=== PATIENT | female | born 1975 | race Hispanic/Latino ===

== ENCOUNTER 2018-09-03 12:44 | Day surgery (SDC) | payer MEDICAID, SELFPAY ==
[2018-08-27 09:35] VITALS: BMI 38.0
[2018-09-03] VITALS (11 sets, daily range): BP systolic 93–129; BP diastolic 52–82; PULSE 71–96; RESP 16–18; TEMP 36.2–36.5; O2SAT 90–100; BMI 38.0
--- NOTE | 2018-09-03 14:31 | PCM.HP.BLA ---
History and Physical Date of Admission: 09/03/18 [facility] [address] [place] [address] OFFICE VISIT Date of Service: 08/27/18 MR#: [id number] Acct: [id number] Name: BRITTNEY ALCOCER Rep #: [id number] : 1975 Provider: Gamaliel Herrera MD Age/Sex: 43/F Location: [facility] Status: Signed Intake Vital Signs 08/27/18 Body Mass Index (BMI) 38.0 08/27/18 Height 4 ft 10 in 08/27/18 Weight: 184 lb 08/27/18 Body Mass Index (BMI) 38.4 08/27/18 Respiratory Rate 18 Intake Visit Reasons: Wart Middle Finger R Hand Chief Complaint: Abdominal and flank pain Security Intern Required: No Is patient in pain?: Yes (right middle finger) Allergies amoxicillin [Amoxicillin] Allergy (Verified 08/27/18 09:29) Anaphylaxis aspirin [ASA] Allergy (Verified 08/27/18 09:29) Other chocolate flavor Allergy (Verified 08/27/18 09:29) Anaphylaxis citalopram hydrobromide [From Celexa] Allergy (Verified 08/27/18 09:29) Anaphylaxis naproxen [From Naprosyn] Allergy (Verified 08/27/18 09:29) Anaphylaxis tomato [Tomato] Allergy (Verified 08/27/18 09:29) Rash venlafaxine HCl [From Effexor] Allergy (Verified 08/27/18 09:29) Anaphylaxis acetaminophen [From Tylenol-Codeine #3] Adverse Reaction (Verified 08/27/18 09:29) Other codeine phosphate [From Tylenol-Codeine #3] Adverse Reaction (Verified 08/27/18 09:29) Other milk Adverse Reaction (Verified 08/27/18 09:29) Nausea morphine Adverse Reaction (Verified 08/27/18 09:29) Unknown tramadol Adverse Reaction (Verified 08/27/18 09:29) Other CHOCOLATE Allergy (Uncoded 08/27/18 09:29) Anaphylaxis Medications atorvastatin 20 mg tablet 40 mg PO DAILY 08/27/18 [History Confirmed 09/02/18] divalproex 500 mg tablet,delayed release 500 mg PO QHS 08/27/18 [History Confirmed 09/02/18] loratadine 10 mg tablet 10 mg PO DAILY 08/27/18 [History Confirmed 09/02/18] magnesium 400 mg (as magnesium oxide) capsule 400 mg PO DAILY 08/27/18 [History Confirmed 09/02/18] omeprazole 40 mg capsule,delayed release 40 mg PO DAILY 08/27/18 [History Confirmed 09/02/18] pramipexole 0.5 mg tablet 0.5 mg PO QHS 08/27/18 [History Confirmed 09/02/18] quetiapine 300 mg tablet 300 mg PO QHS 08/27/18 [History Confirmed 09/02/18] sertraline 100 mg tablet 100 mg PO DAILY 08/27/18 [History Confirmed 09/02/18] sumatriptan 100 mg tablet 100 mg PO ONCE 08/27/18 [History Confirmed 09/02/18] Albuterol Inhaler [Ventolin Hfa (SP)] 1 - 2 puff INHALATION Q4H PRN PRN 09/02/18 [History Confirmed 09/02/18] Ondansetron [Zofran Odt] 4 mg PO Q12H PRN PRN 09/02/18 [History Confirmed 09/02/18] PFSH Medical History Carpal tunnel syndrome (Acute) Depression (Acute) Diverticulosis (Acute) Heart attack (Acute) History of kidney cancer (Acute) Leiomyoma (Acute) Right shoulder pain (Acute) Surgical History History of partial nephrectomy (Acute) S/P section (Acute) S/P excision of lipoma (Acute) S/P laparoscopic cholecystectomy (Acute) Status post carpal tunnel release (Acute) s/p left leg surgery (Acute) Social History (Updated 09/02/18 @ 13:08 by Gamaliel Herrera MD) Smoking Status: Current every day smoker alcohol intake: current alcohol intake frequency: a few times a week substance use type: marijuana HPI HPI HPI: BRITTNEY ALCOCER, is a 43 F who presents to the office today for HPI HPI Surgical H&P: Yes HPI: BRITTNEY ALCOCER, is a 43 F who presents to the office today for evaluation of a warty lesion on the middle finger of her right hand. Patient has had this warty lesion for a long time. She has had it removed in an office setting on no less than 3 separate occasions. Each time it has come back and she is complaining of significant amount of discomfort the pad of her middle finger. ROS General General: No weight change, appetite, fatigue, colon cancer, breast cancer or weakness HEENT HEENT: No difficulty swallowing, eye injury, eye surgery, swollen glands or hoarseness Endo Endocrine: No thyroid disease, diabetes mellitus, thyroid cancer, Hair loss, heat intolerance or cold intolerance Skin Skin: No rash or changing moles Breast Breast: No left breast lump, right breast lump, nipple discharge, breast pain, abnormal mammogram, abnormal US or breast enlargement Musc Musculoskeletal: Yes arthritis, rheumatoid arthritis, gout and joint pain; no back problems Cardio Cardiovascular: Yes heart attack; no murmur, pacemaker, heart disease, atrial fibrillation, high blood pressure, heart stent, palpitations, shortness of breat with exertion or chest pain Psych Psychiatric: Yes depression and anxiety; no hearing voices Resp Respiratory: No shortness of breath, Yes sleep apnea, No cough, Yes COPD, Yes asthma, No emphysema, No wheezing Gastro Gastrointestinal: No abdominal pain, No nausea or vomiting, No diarrhea, No constipation, Yes blood in stool, Yes acid reflux, No hemorrhoids, Yes ulcers, No gallbladder problem, No black,tarry stools Eduar Hematologic: No blood thinners, No blood disorders, No bleeding, No anemia, No blood clots Neuro Neurologic: No system reviewed and no additional complaints, except as docu, No as per HPI, No abnormal walking, No abnormal hearing, No abnormal movements, No abnormal speech, No behavioral changes, No burning sensations, No confusion, No seizure-like activity, No unsteadiness, No dizziness, No localized weakness, No frequent falls, No headache(s), No lack of coordination, No loss of vision, No memory loss, Yes numbness, No other visual disturbances, No radiating pain, No restless legs, No sensory deficit, No fainting, Yes tingling, No tremor(s), No weakness, No other Exam Const General: no acute distress, well developed, well hydrated Orientation: oriented to person, oriented to place, oriented to time [facility] Head: normocephalic, atraumatic Ears: external ears normal Mouth: moist mucous membranes Eyes Sclera: sclerae normal Pupils: normal by confrontation Neck Neck: no lymphadenopathy noted Neck mass: No Thyroid: thyroid normal, symmetrical Chest Chest palpation & inspection: normal inspection of the chest Breast Palpation: No nipple discharge Resp Effort & Inspection: normal respiratory effort Auscultation: clear to auscultation bilaterally Percussion: percussion normal Cardio Rate: regular rate Rhythm: regular rhythm Heart Sounds: no murmurs GI Palpation: soft, no hepatosplenomegaly, no masses, nontender Rectal Exam: other Other: Rectal exam deferred. Extrem General: normal to inspection, no clubbing, cyanosis or edema Other: Middle finger on her right hand has a warty lesion extending from the base of the cuticle and extending around towards the tip. The pad on that finger is tender to touch there is no signs of infection. Assessment & Plan Problems 1. Verrucous lesion of skin B07.9 Plan My plan will be to excise this in the OR. The patient understands that there is a significant risk that she could develop osteomyelitis of the distal tip of her finger and she could actually lose the distal tip of her finger given the fact that this is a redo of a redo. Bleeding and infection are the obvious normal risk. Recurrence of a verrucous lesion at the distal tip of her finger is also a risk. She also understands that the nail itself probably will not grow back in a normal fashion. Coding Level of Care Code Off vis,new,level 3 Diagnoses Verrucous lesion of skin B07.9 09/02/18 1308 <Electronically signed by Gamaliel Herrera MD> Date Gamaliel Herrera MD Cosign Signature: Date (if applicable) CC: WAREHOUSE LABORERArlette Dobbins ~ I have re-examined the patient. There are no clinical changes since date of exam.
--- NOTE | 2018-09-03 14:53 | OP.PCM_ITS ---
Problem List (1) Viral wart on finger Status: Acute Report of Operation Date of Procedure: 09/03/18 Pre-Operative Diagnosis: Wart on third finger right hand Post-Operative Diagnosis: Same Surgery/Procedure Performed:: Fulguration of wart on third finger right hand Type of Anesthesia:: Local MAC Anesthesiologist: Dakota Bradley Estimated Blood Loss (mL): < 25 cc Fluids Replaced: 300 cc LR Description of Procedure: Patient was brought into the operating room. Placed in the supine position. Under excellent MAC anesthetic right hand was sterilely prepped and draped in usual fashion. Percent lidocaine with epinephrine was injected into the finger and a digital nerve block. Tourniquet was applied. I excised the wart in its entirety and removed half of the nail on that side use electrocautery for good hemostasis and rongeured out anything and everything that looked slightly abn ormal. I had excellent hemostasis. I placed bacitracin and Adaptic on the wound and then sterile tube gauze was placed on the wound. Patient tolerated the procedure well. - Admit VTE Documentation VTE Present on Admission: No VTE Mechan Device Prophylaxis: SCD's VTE Pharm Prophylaxis ordered?: No Reason prophylaxis not ordered:: Treatment Not Indicated
--- NOTE | 2018-09-03 14:54 | DCINST_ITS ---
Discharge Diet: Light diet - advance as tolerated - If you have questions about your diet instructions, please talk to your doctor. Discharge Activity: May Not Drive - for 1 week or while taking narcotic pain medicine. May shower in (days): 1 Lifting Restrictions: 10 pounds Call your doctor if your incision/area has: Continuous Slow Oozing, Sudden Increased Bleeding, Increased Pain/ Swelling, Increased Redness, Foul Smelling Discharge Call your doctor if you observe: Fever of 101 or Higher Suture Line Care: Avoid Pulling/Pushing, Avoid Pinching/Bending Additional Dressing/Incision Instructions:: Change or remove dressing in 4 days. Leave steri-strips in place for 1 week. Allergies/Adverse Reactions: Allergies amoxicillin [Amoxicillin] Allergy (Verified 09/03/18 12:50) Anaphylaxis aspirin [ASA] Allergy (Verified 09/03/18 12:50) Other chocolate flavor Allergy (Verified 09/03/18 12:50) Anaphylaxis citalopram hydrobromide [From Celexa] Allergy (Verified 09/03/18 12:50) Anaphylaxis naproxen [From Naprosyn] Allergy (Verified 09/03/18 12:50) Anaphylaxis tomato [Tomato] Allergy (Verified 09/03/18 12:50) Rash venlafaxine HCl [From Effexor] Allergy (Verified 09/03/18 12:50) Anaphylaxis acetaminophen [From Tylenol-Codeine #3] Adverse Reaction (Verified 09/03/18 12:50) Other codeine phosphate [From Tylenol-Codeine #3] Adverse Reaction (Verified 09/03/18 12:50) Other milk Adverse Reaction (Verified 09/03/18 12:50) Nausea morphine Adverse Reaction (Verified 09/03/18 12:50) Unknown UNKNOWN tramadol Adverse Reaction (Verified 09/03/18 12:50) Other HALLUCINATIONS CHOCOLATE Allergy (Uncoded 09/03/18 12:50) Anaphylaxis Medications to take at Discharge atorvastatin 20 mg tablet 40 mg PO DAILY 08/27/18 divalproex 500 mg tablet,delayed release 500 mg PO QHS 08/27/18 loratadine 10 mg tablet 10 mg PO DAILY 08/27/18 magnesium 400 mg (as magnesium oxide) capsule 400 mg PO DAILY 08/27/18 omeprazole 40 mg capsule,delayed release 40 mg PO DAILY 08/27/18 pramipexole 0.5 mg tablet 0.5 mg PO QHS 08/27/18 quetiapine 300 mg tablet 300 mg PO QHS 08/27/18 sertraline 100 mg tablet 100 mg PO DAILY 08/27/18 sumatriptan 100 mg tablet 100 mg PO ONCE 08/27/18 Albuterol Inhaler [Ventolin Hfa (SP)] 1 - 2 puff INHALATION Q4H PRN PRN 09/02/18 Ondansetron [Zofran Odt] 4 mg PO Q12H PRN PRN 09/02/18 Oxycodone HCl/Acetaminophen [Percocet 5/325] 1 - 2 tab PO Q4H PRN PRN 6 Days #30 tab 09/03/18 The following prescriptions were given: Oxycodone HCl/Acetaminophen [Percocet 5/325] 1 - 2 tab PO Q4H PRN PRN 6 Days #30 tab PRN Reason: Pain Prescription Printed Primary Care Physician: Marta Dobbins, DWIGHT-C [Primary Care Provider] - Test Results: Test results from this visit will be discussed in further detail at your follow- up appointment, if applicable. Please Follow Up With: Gamaliel Herrera MD - [phone] When: Call to make an appointment to be seen in about 10 days.
[2018-09-03] MEDS: BACITRACIN/POLYMYXIN B 15 GM Tube 1 APPLIC (14:59)
--- NOTE | 2018-09-03 15:05 | WART_PTH ---
PATIENT: BRITTNEY ALCOCER LOC: [facility] [place] U#:[id number] AGE/SX: 43/F ROOM: RE09/03/[address]: Dr. Gamaliel Herrera MD : 1975 BED: DIS: 09/03/2018 SPEC #: [id number] RECD: 09/04/18 08:17 STATUS: OFELIA RESHMA #: [id number] DAINA: 09/03/18 15:[address]: Gamaliel Herrera DEPT: SURGICAL PATHOLOGY RECD BY: Serg Leiva ENTERED: 09/04/18 10:57 SP TYPE: Kamran RAINES DR: Marta Dobbins, MANAGER OF TRANSPORTATION-C Tissues: Epidermis Procedures: Surgery Specimen Level IV HEADER OPERATION: Excision, wart, middle finger PRE-OP DIAGNOSIS: Verrucous lesion of skin TISSUE SUBMITTED: Wart right third finger MICROSCOPIC DIAGNOSIS Wart right third finger, excision: Verrucal vulgaris. KAMLESH:kalee 09/05/18 MICROSCOPIC DESCRIPTION Slides are reviewed. GROSS DESCRIPTION Received in fixative is one container labeled with the patient's name and designated wart right third finger. The specimen consists of a piece of bui-white skin measuring 1.5 x 0.5 cm and up to 0.7 cm in thickness. The specimen is inked and submitted entirely in one cassette. It will be serially sectioned at the time of embedding. / KAMLESH:kalee 09/04/18 TC:1 CPT: 08592
== END 2018-09-03 17:09 | disposition home or self-care (01) ==
LOC: SDC 12:45 → AC 12:46
PROVIDERS: Family Provider Nurse Practitioner Family; PCP Nurse Practitioner Family; Referring Provider Surgery; Visit Provider Surgery
PROC: (CPT 17110; principal; 2018-09-03 14:50)
DX: B07.9 Viral wart, unspecified (principal); K21.9 Gastro-esophageal reflux disease without esophagitis; E78.00 Pure hypercholesterolemia, unspecified; I25.2 Old myocardial infarction; F32.9 Major depressive disorder, single episode, unspecified; F41.9 Anxiety disorder, unspecified; F43.10 Post-traumatic stress disorder, unspecified; G25.81 Restless legs syndrome; G43.909 Migraine, unspecified, not intractable, without status migrainosus; F12.90 Cannabis use, unspecified, uncomplicated; F17.200 Nicotine dependence, unspecified, uncomplicated; Z72.89 Other problems related to lifestyle; Z79.899 Other long term (current) drug therapy
CPT/HCPCS: 00400; 17110; 88305; J7120; J2405

== ENCOUNTER 2018-12-03 09:24 | Day surgery (SDC) | payer MEDICAID, SELFPAY ==
--- NOTE | 2018-11-14 02:52 | HP_ITS ---
Intake Vital Signs 11/14/18 Body Mass Index (BMI) 38.0 Intake Visit Reasons: Multiple new warts on fingers Chief Complaint: Abdominal and flank pain Parimutuel Ticket Cashier Required: No Is patient in pain?: No Allergies amoxicillin [Amoxicillin] Allergy (Verified 11/14/18 14:34) Anaphylaxis aspirin [ASA] Allergy (Verified 11/14/18 14:34) Other chocolate flavor Allergy (Verified 11/14/18 14:34) Anaphylaxis citalopram hydrobromide [From Celexa] Allergy (Verified 11/14/18 14:34) Anaphylaxis naproxen [From Naprosyn] Allergy (Verified 11/14/18 14:34) Anaphylaxis tomato [Tomato] Allergy (Verified 11/14/18 14:34) Rash venlafaxine HCl [From Effexor] Allergy (Verified 11/14/18 14:34) Anaphylaxis acetaminophen [From Tylenol-Codeine #3] Adverse Reaction (Verified 11/14/18 14:34) Other codeine phosphate [From Tylenol-Codeine #3] Adverse Reaction (Verified 11/14/18 14:34) Other milk Adverse Reaction (Verified 11/14/18 14:34) Nausea morphine Adverse Reaction (Verified 11/14/18 14:34) Unknown tramadol Adverse Reaction (Verified 11/14/18 14:34) Other CHOCOLATE Allergy (Uncoded 09/03/18 12:50) Anaphylaxis Medications atorvastatin 20 mg tablet 40 mg PO DAILY 08/27/18 [History Confirmed 11/14/18] divalproex 500 mg tablet,delayed release 500 mg PO QHS 08/27/18 [History Confirmed 11/14/18] loratadine 10 mg tablet 10 mg PO DAILY 08/27/18 [History Confirmed 11/14/18] magnesium 400 mg (as magnesium oxide) capsule 400 mg PO DAILY 08/27/18 [History Confirmed 11/14/18] omeprazole 40 mg capsule,delayed release 40 mg PO DAILY 08/27/18 [History Confirmed 11/14/18] pramipexole 0.5 mg tablet 0.5 mg PO QHS 08/27/18 [History Confirmed 11/14/18] quetiapine 300 mg tablet 300 mg PO QHS 08/27/18 [History Confirmed 11/14/18] sertraline 100 mg tablet 100 mg PO DAILY 08/27/18 [History Confirmed 11/14/18] sumatriptan 100 mg tablet 100 mg PO ONCE 08/27/18 [History Confirmed 11/14/18] Albuterol Inhaler [Ventolin Hfa (SP)] 1 - 2 puff INHALATION Q4H PRN PRN 09/02/18 [History Confirmed 11/14/18] Ondansetron [Zofran Odt] 4 mg PO Q12H PRN PRN 09/02/18 [History Confirmed 11/14/18] PFSH Medical History Carpal tunnel syndrome (Acute) Depression (Acute) Diverticulosis (Acute) Heart attack (Acute) History of kidney cancer (Acute) Leiomyoma (Acute) Right shoulder pain (Acute) Surgical History (Updated 11/14/18 @ 14:37 by Carey Aden) History of partial nephrectomy (Acute) S/P section (Acute) S/P excision of lipoma (Acute) S/P laparoscopic cholecystectomy (Acute) Status post carpal tunnel release (Acute) history excision wart third finger right hand (Acute ~09/03/18) s/p left leg surgery (Acute) Social History (Updated 11/14/18 @ 14:54 by Gamaliel Herrera MD) Smoking Status: Current every day smoker alcohol intake: current alcohol intake frequency: a few times a week substance use type: marijuana HPI HPI HPI: BRITTNEY ALCOCER, is a 43 F who presents to the office today for HPI HPI Surgical H&P: Yes HPI: BRITTNEY ALCOCER, is a 43 F who presents to the office today for Evaluation for warts on her right hand. Patient had a wart on her middle finger of her right hand which I subsequently removed about 2 months ago she has had good success with this. She however has other warty lesions that are now becoming painful located on her second and fourth finger of her right hand. ROS General General: No weight change, appetite, fatigue, colon cancer, breast cancer or weakness HEENT HEENT: No difficulty swallowing, eye injury, eye surgery, swollen glands or hoarseness Endo Endocrine: No thyroid disease, diabetes mellitus, thyroid cancer, Hair loss, heat intolerance or cold intolerance Skin Skin: No rash or changing moles Breast Breast: No left breast lump, right breast lump, nipple discharge, breast pain, abnormal mammogram, abnormal US or breast enlargement Musc Musculoskeletal: Yes arthritis, rheumatoid arthritis, gout and joint pain; no back problems Cardio Cardiovascular: Yes heart attack; no murmur, pacemaker, heart disease, atrial fibrillation, high blood pressure, heart stent, palpitations, shortness of breat with exertion or chest pain Psych Psychiatric: Yes depression and anxiety; no hearing voices Resp Respiratory: No shortness of breath, Yes sleep apnea, No cough, Yes COPD, Yes asthma, No emphysema, No wheezing Gastro Gastrointestinal: No abdominal pain, No nausea or vomiting, No diarrhea, No constipation, Yes blood in stool, Yes acid reflux, No hemorrhoids, Yes ulcers, No gallbladder problem, No black,tarry stools Eduar Hematologic: No blood thinners, No blood disorders, No bleeding, No anemia, No blood clots Neuro Neurologic: No weakness Exam Chest Breast Palpation: No nipple discharge Cardio Heart Sounds: no murmurs Assessment & Plan Problems 1. Viral wart on finger B07.9 Plan My plan will be to excise these 2 lesions in the OR. Bleeding to be the biggest risk infection is also risk as well as recurrence of these viral lesions. Patient understands this and is willing to proceed. Coding Level of Care Code Off vis,est,level 3 Diagnoses Viral wart on finger B07.9 11/14/18 6610 <Electronically signed by Gamaliel giang MD> Date _ Gamaliel Herrera MD I have re-examined the patient. There are no clinical changes since date of exam.
[2018-11-14 14:37] VITALS: BMI 38.0
[2018-12-03] VITALS (8 sets, daily range): BP systolic 73–94; BP diastolic 48–63; PULSE 54–68; RESP 16; TEMP 36.3–36.6; O2SAT 91–96; BMI 37.5
[2018-12-03] MEDS: Lactated Ringers 1,000 ML 100 ML IV (10:25)
--- NOTE | 2018-12-03 11:40 | WART_PTH ---
PATIENT: BRITTNEY ALCOCER [place] [facility] [place][id number] AGE/SX: 43/F ROOM: RE12/03/[address]: Dr. Gamaliel Herrera MD : 1975 BED: DIS: 12/03/2018 SPEC #: [id number] RECD: 12/04/18 08:59 STATUS: OFELIA RESHMA #: [id number] DAINA: 12/03/18 11:[address]: Gamaliel Herrera DEPT: SURGICAL PATHOLOGY RECD BY: Lashae Washington ENTERED: 12/04/18 10:00 SP TYPE: Wart YANNA DR: Marta Dobbins, GILA Tissues: A - Epidermis B - Epidermis Procedures: Surgery Specimen Level IV HEADER OPERATION: Fulguration of wart on hand, 2nd and 4th fingers PRE-OP DIAGNOSIS: Viral wart on finger TISSUE SUBMITTED: A. Wart 2nd finger, right hand, B. Wart 4th finger, right hand MICROSCOPIC DIAGNOSIS A. Lesion of second finger, right hand, biopsy: Consistent with benign keratosis with cutaneous horn. See comment. B. Lesion of fourth finger, right hand, biopsy: Consistent with benign keratosis with cutaneous horn. AM:kalee 12/05/18 COMMENT A. Classic features of viral cytopathic change are not present. Clinical correlation is suggested. Case has been reviewed in consultation with Dr. Koroma who concurs with the above diagnosis. IDC:SJ MICROSCOPIC DESCRIPTION Slides are reviewed. GROSS DESCRIPTION A - Received in fixative is one container labeled with the patient's name and designated wart second finger right hand. The specimen consists of a piece of bui-white skin measuring 0.5 x 0.5 x 0.3 cm. The skin surface shows verrucous appearance. The entire specimen is submitted in one cassette. B - Received in fixative is one container labeled with the patient's name and designated wart fourth finger right hand. The specimen consists of a punch biopsy of bui-white skin measuring 0.6 cm in diameter and up to 0.5 cm in length. The specimen is bisected and submitted entirely in one cassette. / KAMLESH:kalee 12/04/18 TC:5 CPT: 54165 x2
--- NOTE | 2018-12-03 12:01 | PCM.OPRPT ---
Problem List (1) Viral wart on finger Status: Acute Report of Operation Date of Procedure: 12/03/18 Pre-Operative Diagnosis: Warts to second and fourth phalanges right hand Post-Operative Diagnosis: Same Surgery/Procedure Performed:: Fulguration of warts to second and fourth phalanges right hand Type of Anesthesia:: Local MAC Anesthesiologist: Dakota Bradley Specimen's removed: Cutaneous warts to second and fourth phalanges right hand Estimated Blood Loss (mL): < 5 cc Fluids Replaced: 700 cc lr Description of Procedure: Patient was brought into the operating room placed in the supine position under excellent MAC anesthetic. The right hand was sterilely prepped and draped in usual fashion. Local was injected into the fourth and second digits and a digital nerve block fashion. A turnicot was applied to the fourth digit and I ellipsed out the warty lesion. I use electrocautery for good hemostasis. I removed the turnicot and had good hemostasis. Tourniquet was then applied to the second digit similar fashion I ellipsed out a warty lesion and sent it off to pathology electrocautery was used for good hemostasis. Sterile dressings were applied. Patient tolerated the procedure well - Admit VTE Documentation VTE Present on Admission: No VTE Mechan Device Prophylaxis: SCD's VTE Pharm Prophylaxis ordered?: No Reason prophylaxis not ordered:: Treatment Not Indicated
[2018-12-03] MEDS: Bupivacaine Mpf 0.5% 30 ML VIAL (12:11)
[2018-12-03] MEDS: Neomycin/Bacitracin/Polymyxin Ointment 1 APPLIC (12:18)
--- NOTE | 2018-12-03 12:19 | DCINST_ITS ---
Discharge Diet: Light diet - advance as tolerated - If you have questions about your diet instructions, please talk to your doctor. Discharge Activity: May Not Drive - for 1 week or while taking narcotic pain medicine. May shower in (days): 1 Lifting Restrictions: 10 pounds Call your doctor if your incision/area has: Continuous Slow Oozing, Sudden Increased Bleeding, Increased Pain/ Swelling, Increased Redness, Foul Smelling Discharge Call your doctor if you observe: Fever of 101 or Higher Suture Line Care: Avoid Pulling/Pushing, Avoid Pinching/Bending Additional Dressing/Incision Instructions:: Change dressing daily. Soak hand in Dreft daily. Dressed appropriately. Allergies/Adverse Reactions: Allergies adhesive tape Allergy (Verified 12/03/18 10:08) Rash amoxicillin [Amoxicillin] Allergy (Verified 12/03/18 10:08) Anaphylaxis aspirin [ASA] Allergy (Verified 12/03/18 10:08) Other chocolate flavor Allergy (Verified 12/03/18 10:08) Anaphylaxis citalopram hydrobromide [From Celexa] Allergy (Verified 12/03/18 10:08) Anaphylaxis naproxen [From Naprosyn] Allergy (Verified 12/03/18 10:08) Anaphylaxis tomato [Tomato] Allergy (Verified 12/03/18 10:08) Rash venlafaxine HCl [From Effexor] Allergy (Verified 12/03/18 10:08) Anaphylaxis acetaminophen [From Tylenol-Codeine #3] Adverse Reaction (Verified 12/03/18 10:08) Other codeine phosphate [From Tylenol-Codeine #3] Adverse Reaction (Verified 12/03/18 10:08) Other milk Adverse Reaction (Verified 12/03/18 10:08) Nausea morphine Adverse Reaction (Verified 12/03/18 10:08) Unknown UNKNOWN tramadol Adverse Reaction (Verified 12/03/18 10:08) Other HALLUCINATIONS CHOCOLATE Allergy (Uncoded 12/03/18 10:08) Anaphylaxis Medications to take at Discharge atorvastatin 20 mg tablet 40 mg PO DAILY 08/27/18 divalproex 500 mg tablet,delayed release 1,000 mg PO QHS 08/27/18 loratadine 10 mg tablet 10 mg PO DAILY 08/27/18 magnesium 400 mg (as magnesium oxide) capsule 400 mg PO DAILY 08/27/18 omeprazole 40 mg capsule,delayed release 40 mg PO DAILY 08/27/18 pramipexole 0.5 mg tablet 0.5 mg PO QHS 08/27/18 quetiapine 300 mg tablet 200 mg PO QHS 08/27/18 sertraline 100 mg tablet 100 mg PO DAILY 08/27/18 sumatriptan 100 mg tablet 100 mg PO ONCE PRN 08/27/18 Albuterol Inhaler [Ventolin Hfa (SP)] 1 - 2 puff INHALATION Q4H PRN PRN 09/02/18 Ondansetron [Zofran Odt] 8 mg PO Q12H PRN PRN 09/02/18 Acetaminophen [Tylenol Extra Strength] 500 mg PO PRN PRN 12/02/18 Gabapentin 800 mg PO 4X/DAY 12/02/18 Oxycodone HCl/Acetaminophen [Percocet 5/325] 1 - 2 tab PO Q4H PRN PRN 6 Days #30 tab 12/03/18 Oxycodone [Oxyir] 10 mg PO Q6H PRN PRN 6 Days #25 tab 12/03/18 The following prescriptions were given: Oxycodone [Oxyir] 10 mg PO Q6H PRN PRN 6 Days #25 tab PRN Reason: Pain Score 1-11/14 Prescription Printed Oxycodone HCl/Acetaminophen [Percocet 5/325] 1 - 2 tab PO Q4H PRN PRN 6 Days #30 tab PRN Reason: Pain Prescription Printed Primary Care Physician: Marta Dobbins, DWIGHT-C [Primary Care Provider] - Test Results: Test results from this visit will be discussed in further detail at your follow- up appointment, if applicable. Please Follow Up With: Gamaliel Herrera MD - [phone] When: Call to make an appointment to be seen in about 10 days.
== END 2018-12-03 14:37 | disposition home or self-care (01) ==
LOC: SDC 09:26 → AC 09:27
PROVIDERS: Family Provider Nurse Practitioner Family; PCP Nurse Practitioner Family; Referring Provider Surgery; Visit Provider Surgery
PROC: (CPT 17110; principal; 2018-12-03 11:30)
DX: B07.9 Viral wart, unspecified (principal); E78.00 Pure hypercholesterolemia, unspecified; I25.2 Old myocardial infarction; K21.9 Gastro-esophageal reflux disease without esophagitis; G25.81 Restless legs syndrome; F32.9 Major depressive disorder, single episode, unspecified; F41.9 Anxiety disorder, unspecified; F17.200 Nicotine dependence, unspecified, uncomplicated; Z79.899 Other long term (current) drug therapy
CPT/HCPCS: 17110; 88305; J7120; J2405

== ENCOUNTER 2019-10-17 21:04 | Emergency (ER) | payer MEDICAID, SELFPAY ==
[2018-12-03 10:11] VITALS: BMI 37.5
[2019-10-17 21:05] VITALS: BP 125/85; PULSE 75; RESP 16; TEMP 36.2; O2SAT 99; BMI 34.4
[2019-10-17] MEDS: Triamcinolone Acetonide 40 MG/ML Vial 60 MG IM (21:31)
--- NOTE | 2019-10-17 21:39 | ED.DCSUM_ITS ---
History of Present Illness Chief Complaint: Allergic Reaction Informant: Patient Narrative: Patient states that yesterday afternoon she was bit by a yellow jacket on the right side of her neck. She states she took a Benadryl today because she has some local swelling and some discomfort. She states that when she swallows she feels like there is something in her throat. She is able to chew gum and not have to spit her secretions. She denies any hives. Past Medical History - Allergies and Home Meds Allergies/Adverse Reactions: Allergies adhesive tape Allergy (Verified 12/03/18 10:08) Rash amoxicillin [Amoxicillin] Allergy (Verified 12/03/18 10:08) Anaphylaxis aspirin [ASA] Allergy (Verified 12/03/18 10:08) Other chocolate flavor Allergy (Verified 12/03/18 10:08) Anaphylaxis citalopram hydrobromide [From Celexa] Allergy (Verified 12/03/18 10:08) Anaphylaxis naproxen [From Naprosyn] Allergy (Verified 12/03/18 10:08) Anaphylaxis tomato [Tomato] Allergy (Verified 12/03/18 10:08) Rash venlafaxine HCl [From Effexor] Allergy (Verified 12/03/18 10:08) Anaphylaxis acetaminophen [From Tylenol-Codeine #3] Adverse Reaction (Verified 12/03/18 10:08) Other codeine phosphate [From Tylenol-Codeine #3] Adverse Reaction (Verified 12/03/18 10:08) Other milk Adverse Reaction (Verified 12/03/18 10:08) Nausea morphine Adverse Reaction (Verified 12/03/18 10:08) Unknown UNKNOWN tramadol Adverse Reaction (Verified 12/03/18 10:08) Other HALLUCINATIONS CHOCOLATE Allergy (Uncoded 12/03/18 10:08) Anaphylaxis Primary Care Physician: Marta Dobbins NP, PATCH DRILLER-C [Primary Care Provider] - As Needed Smoking Status: Current every day smoker Review of Systems General: Denies: Chills, Fever, Sweats Eyes: Denies: Visual changes - bilaterally, Diplopia ENT: Denies: Rhinorrhea, Sore throat Cardiovascular: Denies: Chest pain, Palpitations Respiratory: Denies: Dyspnea, Cough, Dyspnea on exertion Gastrointestinal: Denies: Abdominal pain, Nausea, Vomiting, Diarrhea, Melena, Hematochezia Genitourinary: Denies: Dysuria, Hematuria, Frequency Musculoskeletal: Denies: Back pain, Extremity Pain Skin: Reports: Wounds. Denies: Rash Neurological: Denies: Headache, Weakness, Numbness Physical Exam Vital Signs/Narrative: Vital Signs Temp Pulse Resp BP Pulse Ox 10/17/19 21:05 97.2 F L 75 16 125/85 H 99 Inital Vital Signs reviewed: Yes General: Well nourished, Well developed, No Acute Distress Head: Normocephalic, Atraumatic Eyes: Perrl, EOMI ENT: Moist mucous membranes, No rhinorrhea Neck: Supple, - - There is tenderness and a small 2 to 3 cm area of light swelling and erythema on the right side of her neck. There is no stridor. Cardiovascular: Regular rate, Regular rhythm, No murmurs Respiratory: No distress, CTA bilaterally, Chest nontender Abdomen: Soft, Nontender, Nondistended, Normal bowel sounds Back: Nontender, Normal Inspection Extremities: Nontender, No edema Skin: Normal color, No rash Neurological: Alert, Oriented x3, Cranial nerves II-XII grossly intact, Normal Strength, Normal Sensation Psychological: Normal affect, Normal Mood Diagnostic/Tx/Re-eval - Medical Decision Making Patient will receive a dose of Kenalog. Would recommend continued Benadryl. This appears to be a local reaction without evidence of secondary infection or anaphylaxis. ED Disposition - Plan for ED Patient: Disposition: Home or Assisted Living Diagnosis: Local reaction to bee sting Instructions: ED Insect Sting Local Reaction Referrals: Marta Dobbins NP, PATCH DRILLER-C [Primary Care Provider] - As Needed Additional Instructions: The shot of Kenalog you received tonight will stay with you for several days. I would recommend taking Benadryl every 6-8 hours for the next 3 days.
[2019-10-17 21:59] VITALS: PULSE 82; RESP 16; O2SAT 98
== END 2019-10-17 22:00 | disposition home or self-care (01) ==
PROVIDERS: Emergency Provider Emergency Medicine; PCP Nurse Practitioner Family
DX: T63.441A Toxic effect of venom of bees, accidental (unintentional), initial encounter (principal); R22.1 Localized swelling, mass and lump, neck; Y92.9 Unspecified place or not applicable; F17.200 Nicotine dependence, unspecified, uncomplicated
CPT/HCPCS: 96372; 99282

== ENCOUNTER 2019-12-09 16:41 | Emergency (ER) | payer MEDICAID, SELFPAY ==
[2019-12-09 16:43] VITALS: BP 136/71; PULSE 91; RESP 18; TEMP 36.2; O2SAT 97; BMI 36.6
--- NOTE | 2019-12-09 16:49 | ED.RN ---
DR. FONTAINE INFORMED OF PT SX AT 1647 FOR PT TO BE SEEN BY PHYSICIAN. ADE RN MADE AWARE ALSO.
--- NOTE | 2019-12-09 16:57 | CT_ITS ---
STUDY: CT BRAIN WITHOUT CONTRAST REASON FOR EXAM: Female, 44 years old. DIZZY, NEAR SYNCOPE, SEIZURES, KIDNEY CA, HX-AL D/T COCAINE OD RADIATION DOSAGE (If Supplied By Facility): CTDIvol = ( 44.99 ) mGy, DLP = ( 762.36 ) mGycm TECHNIQUE: Transaxial CT imaging of the brain was performed without administration of intravenous contrast material. Individualized dose optimization techniques were used for this CT. COMPARISON: 08/29/2016 FINDINGS: Normal soft tissue structures. Normal calvarium. Normal size ventricles and extra-axial spaces for the patient''s age. Normal white matter tracts of the cerebral hemispheres. Normal basal ganglia and thalami. Normal brainstem. Normal cerebellum. There is no intracranial hemorrhage. There are no findings of an acute ischemic infarction. Normal visualized paranasal sinuses. No significant change since prior exam CT/Brain/Head without Contrast IMPRESSION: Normal unenhanced CT scan of the brain. Electronically Signed: Oneil Rod MD at 17:34 EST , Service support ,
--- NOTE | 2019-12-09 16:58 | ED.DCSUM_ITS ---
History of Present Illness Chief Complaint: Dizziness Informant: Patient Onset: Today Maximum Severity: Mild Narrative: Patient presents complaining of diffuse headache similar to her prior migraine headaches, indicates his headache began today when she was walking with her , it persisted she uses gabapentin that did not help and she came in for evaluation, she indicates she was not sick in any way today no coronavirus exposures no fever no cough no trauma no numbness weakness paresthesias, She has had migraine headaches for many years she has had extensive prior outpatient evaluation she indicates she has had prior [employer] INST[employer] HEL[employer] imaging she has no history of brain tumor brain aneurysm she does not remember the physicians who she is seeing for the migraines who prescribed the gabapentin, she also indicates she has history of distant cath does not know if she had an [place]. Her review of systems other than the headache are negative Past Medical History - Allergies and Home Meds Allergies/Adverse Reactions: Allergies adhesive tape Allergy (Verified 12/09/19 16:42) Rash amoxicillin [Amoxicillin] Allergy (Verified 12/09/19 16:42) Anaphylaxis aspirin [ASA] Allergy (Verified 12/09/19 16:42) Other chocolate flavor Allergy (Verified 12/09/19 16:42) Anaphylaxis citalopram hydrobromide [From Celexa] Allergy (Verified 12/09/19 16:42) Anaphylaxis naproxen [From Naprosyn] Allergy (Verified 12/09/19 16:42) Anaphylaxis tomato [Tomato] Allergy (Verified 12/09/19 16:42) Rash venlafaxine HCl [From Effexor] Allergy (Verified 12/09/19 16:42) Anaphylaxis acetaminophen [From Tylenol-Codeine #3] Adverse Reaction (Verified 12/09/19 16:42) Other codeine phosphate [From Tylenol-Codeine #3] Adverse Reaction (Verified 12/09/19 16:42) Other milk Adverse Reaction (Verified 12/09/19 16:42) Nausea morphine Adverse Reaction (Verified 12/09/19 16:42) Unknown UNKNOWN tramadol Adverse Reaction (Verified 12/09/19 16:42) Other HALLUCINATIONS CHOCOLATE Allergy (Uncoded 12/09/19 16:42) Anaphylaxis Primary Care Physician: Marta Dobbins NP, [employer] L[employer]SC[employer]-C [Primary Care Provider] - Past Medical History: - Smoking Status: Current every day smoker Review of Systems ROS: - Includes as above General: Reports: - - Headache. Denies: Chills, Fever, Sweats Eyes: Denies: Visual changes - bilaterally, Diplopia ENT: Denies: Rhinorrhea, Sore throat Cardiovascular: Denies: Chest pain, Palpitations Respiratory: Denies: Dyspnea, Cough, Dyspnea on exertion Gastrointestinal: Denies: Abdominal pain, Nausea, Vomiting, Diarrhea, Melena, Hematochezia Genitourinary: Denies: Dysuria, Hematuria, Frequency Musculoskeletal: Denies: Back pain, Extremity Pain Skin: Denies: Rash, Wounds Neurological: Denies: Headache, Weakness, Numbness Physical Exam Vital Signs/Narrative: Vital Signs Temp Pulse Resp BP Pulse Ox 12/09/19 16:43 97.1 F L 91 18 136/71 H 97 General: Well nourished, Well developed, No Acute Distress Head: Normocephalic, Atraumatic Eyes: Perrl, EOMI ENT: Moist mucous membranes, No rhinorrhea Neck: Supple, Nontender Cardiovascular: Regular rate, Regular rhythm, No murmurs Respiratory: No distress, CTA bilaterally, Chest nontender Abdomen: Soft, Nontender, Nondistended, Normal bowel sounds Back: Nontender, Normal Inspection Extremities: Nontender, No edema Skin: Normal color, No rash Neurological: Alert, Oriented x3, Cranial nerves II-XII grossly intact, Normal Strength, Normal Sensation Psychological: Normal affect, Normal Mood Diagnostic/Tx/Re-eval - Medical Decision Making sHe is awake and alert her GCS is 15 NIH 0 she is moving all 4 extremities her pupils are equal and reactive her neck is supple complaining of a pounding headache, given all the above in the history she provides that this began like her typical migraine screening evaluation pain management head CT Patient's head CT per radiology is negative for all see that report, she was medicated she is feeling better actually fell asleep woke her comfortable with discharge home she understands exact etiology of all the above is unclear but it appears typical of her migraine headache she per prior notes in the computer she has been seen by multiple providers including pain management for the headache disorder she is continued to have that follow-up with those providers and return for change in symptoms Home stable Final impression acute recurrent headache disorder resolved ED Disposition - Plan for ED Patient: Diagnosis: Headache Instructions: ED, Migraine (Classical) Referrals: Marta Dobbins NP, [employer]-C [Primary Care Provider] -
[2019-12-09] MEDS: DiphenhydrAMINE 50 MG/ML Syringe 25 MG IV (17:06)
[2019-12-09] MEDS: 0.9% Normal Saline 1,000 ML 999 ML IV (17:06)
[2019-12-09] MEDS: proCHLORPERazine 10 MG/2 ML Vial IV (17:07)
[2019-12-09 17:41] VITALS: BP 117/62; PULSE 73
[2019-12-09 18:47] VITALS: BP 118/70; PULSE 72; RESP 14; O2SAT 100
== END 2019-12-09 18:48 | disposition home or self-care (01) ==
PROVIDERS: Emergency Provider Emergency Medicine; PCP Nurse Practitioner Family
DX: R51.9 Headache, unspecified (principal); F17.200 Nicotine dependence, unspecified, uncomplicated
CPT/HCPCS: 70450; 96361; 96374; 96375; 99283; J7030

== ENCOUNTER 2020-10-14 15:44 | Emergency (ER) | payer MEDICAID, SELFPAY ==
[2020-10-14 15:46] VITALS: BP 110/66; PULSE 89; RESP 16; TEMP 37; O2SAT 99; BMI 35.5
--- NOTE | 2020-10-14 16:41 | EDS_ITS ---
HPI History of Present Illness Chief Complaint: Laceration Narrative Narrative: Patient presenting secondary to a finger laceration. Patient is right-hand dominant she is not up-to-date on her tetanus. Patient was using a new knife, and suffered a laceration over her long digit. She reports that it was briskly bleeding, it was controlled with pressure. There is a mild amount of pain associated with it. Worse with palpation and movement. Patient denies any underlying history of easy bruising easy bleeding or immunosuppression. She denies any other injuries currently. [facility] Medical History Carpal tunnel syndrome Depression Diverticulosis Heart attack History of kidney cancer Leiomyoma Right shoulder pain Home Medications atorvastatin 20 mg tablet 40 mg PO DAILY 08/27/18 [History Last Taken Unknown] divalproex 500 mg tablet,delayed release 1,000 mg PO QHS 08/27/18 [History Last Taken Unknown] loratadine 10 mg tablet 10 mg PO DAILY 08/27/18 [History Last Taken Unknown] magnesium oxide 400 mg PO DAILY 08/27/18 [History Last Taken Unknown] omeprazole 40 mg capsule,delayed release 40 mg PO DAILY 08/27/18 [History Last Taken 09/03/18 10:00] pramipexole 0.5 mg tablet 0.5 mg PO QHS 08/27/18 [History Last Taken Unknown] quetiapine 300 mg tablet 200 mg PO QHS 08/27/18 [History Last Taken Unknown] sertraline 100 mg tablet 100 mg PO DAILY 08/27/18 [History Last Taken 09/03/18 10:00] sumatriptan succinate 100 mg tablet 100 mg PO ONCE PRN 08/27/18 [History Last Taken Unknown] albuterol sulfate 1 - 2 puff INHALATION Q4H PRN PRN 09/02/18 [History Last Taken 12/03/18 08:00 1 - 2 PUFF] ondansetron 8 mg PO Q12H PRN PRN 09/02/18 [History Last Taken Unknown] acetaminophen 500 mg PO PRN PRN 12/02/18 [History Last Taken Unknown] gabapentin 800 mg PO 4X/DAY 12/02/18 [History Last Taken 12/03/18 08:00 800 MG] Allergy/AdvReac Type Severity Reaction Status Date / Time adhesive tape Allergy Rash Verified 10/14/20 15:46 amoxicillin [Amoxicillin] Allergy Anaphylaxis Verified 10/14/20 15:46 aspirin [ASA] Allergy Other Verified 10/14/20 15:46 chocolate flavor Allergy Anaphylaxis Verified 10/14/20 15:46 citalopram hydrobromide Allergy Anaphylaxis Verified 10/14/20 15:46 [From Celexa] naproxen [From Naprosyn] Allergy Anaphylaxis Verified 10/14/20 15:46 tomato [Tomato] Allergy Rash Verified 10/14/20 15:46 venlafaxine HCl Allergy Anaphylaxis Verified 10/14/20 15:46 [From Effexor] acetaminophen AdvReac Other Verified 10/14/20 15:46 [From Tylenol-Codeine #3] codeine phosphate AdvReac Other Verified 10/14/20 15:46 [From Tylenol-Codeine #3] milk AdvReac Nausea Verified 10/14/20 15:46 morphine AdvReac Unknown Verified 10/14/20 15:46 tramadol AdvReac Other Verified 10/14/20 15:46 CHOCOLATE Allergy Anaphylaxis Uncoded 10/14/20 15:46 Surgical History history excision wart third finger right hand (~09/03/18) History of hysterectomy History of partial nephrectomy S/P section S/P excision of lipoma S/P laparoscopic cholecystectomy s/p left leg surgery Status post carpal tunnel release Social History Smoking Status: Current every day smoker tobacco type: cigarettes alcohol intake: current alcohol intake frequency: a few times a week substance use type: marijuana ROS ROS ED Constitutional Constitutional ED: Denies chills Cardiovascular Cardiovascular: Denies chest pain Respiratory/Chest Respiratory/Chest: Denies cough or dyspnea Gastrointestinal Gastrointestinal: Denies vomiting Musculoskeletal Musculoskeletal: Denies myalgias Integumentary Reports other Details: Laceration Hematologic/Lymphatic Hematologic/Lymphatic: Denies easy bleeding or easy bruising EXAM Physical Exam Const Vital Signs: 10/14/20 15:46 Temperature 98.6 F Temperature Source Temporal Pulse Rate 89 Respiratory Rate 16 Blood Pressure 110/66 Blood Pressure Mean 80 Pulse Ox 99 Oxygen Delivery Method Room Air Positive well nourished and well developed General Appearance ED: well developed and NAD HEENT normocephalic and atraumatic Eyes EOMs intact bilaterally Neck supple Resp normal respiratory effort Cardio regular rate Extremity Extremity Narrative: Examination the patient's right hand shows a very clean laceration on the dorsum of the patient's right long digit. This measures about 1.5 cm directly over the distal interphalangeal joint. Normal flexion and extension. Patient complains of some numbness over the pad of the finger. Neuro oriented x3 Sensorium / Orientation: alert Skin Lesions: no lesions Rashes: no rashes MDM MDM MDM Narrative Medical decision making narrative: Patient presented with a finger laceration. It was addressed as noted in the procedure note. Tetanus status was updated. Patient was discharged with outpatient follow-up with primary care for suture removal. Procedures Lacerations Finger laceration: Length: 18 in Depth: Skin Shape: Linear Prep: Sterile Conditions Laceration repair: Digital block, Irrigated and Skin sutures Irrigated (ml): 250 Number of Sutures/Latricia: 3 Suture Information: Ethilon, Simple and 4-0 Discharge Plan Triage Chief Complaint: Laceration ED Provider: Lamonte Seo Dx/Rx/DC Orders Clinical Impression: Finger laceration Instructions: ED Laceration, Hand: All Closures Prescriptions: No Action atorvastatin 20 mg tablet 40 mg PO DAILY RF: 0 divalproex 500 mg tablet,delayed release (DR/EC) 1,000 mg PO QHS RF: 0 loratadine 10 mg tablet 10 mg PO DAILY RF: 0 magnesium oxide 400 mg magnesium capsule 400 mg PO DAILY RF: 0 omeprazole 40 mg capsule,delayed release(DR/EC) 40 mg PO DAILY RF: 0 pramipexole 0.5 mg tablet 0.5 mg PO QHS RF: 0 quetiapine 300 mg tablet 200 mg PO QHS RF: 0 sertraline 100 mg tablet 100 mg PO DAILY RF: 0 sumatriptan succinate 100 mg tablet 100 mg PO ONCE PRN (Reason: migraines) RF: 0 albuterol sulfate 1 INHALER inhaler 1 - 2 puff inhalation Q4H PRN PRN (Reason: Sob &/Or Wheezing) RF: 0 ondansetron 4 MG tablet 8 mg PO Q12H PRN PRN (Reason: Nausea) RF: 0 acetaminophen 500 MG tablet 500 mg PO PRN PRN (Reason: Pain Or Fever) RF: 0 gabapentin 800 MG tablet 800 mg PO 4X/DAY RF: 0 Primary Care Provider: Marta Dobbins NP Referrals: Marta Dobbins NP, COMMUNITY RELATIONS DIRECTOR-C [Primary Care Provider] - 7 Days for suture removal Disposition Disposition: Home, Self Care
[2020-10-14] MEDS: Diphth,Pertuss(Acell),Tet Vac 0.5 ML Vial IM (17:39)
[2020-10-14] MEDS: Lidocaine 1% (20 ml mdv) 20 ML Vial INFILT (17:41)
== END 2020-10-14 17:45 | disposition home or self-care (01) ==
PROVIDERS: Emergency Provider Emergency Medicine; PCP Nurse Practitioner Family
DX: S61.212A Laceration without foreign body of right middle finger without damage to nail, initial encounter (principal); W26.0XXA Contact with knife, initial encounter; Y93.9 Activity, unspecified; Y92.9 Unspecified place or not applicable; Y99.9 Unspecified external cause status; I25.2 Old myocardial infarction; F17.210 Nicotine dependence, cigarettes, uncomplicated; Z79.899 Other long term (current) drug therapy
CPT/HCPCS: 12001; 90471; 90715; 99283

== ENCOUNTER 2020-12-23 17:39 | Emergency (ER) | payer MEDICAID, SELFPAY ==
[2020-12-23 17:40] VITALS: BP 141/87; PULSE 73; RESP 16; TEMP 36.4; O2SAT 98; BMI 37.6
--- NOTE | 2020-12-23 18:09 | CT_ITS ---
HISTORY: head injury EXAMINATION: CT Spine Cervical W/O Contrast Injection TECHNIQUE: Helically acquired images were obtained of the cervical spine. 2D reformatted images were reviewed. A radiation dose optimization technique was used for this scan. IV Contrast dosage and agent: None. COMPARISON: None FINDINGS: VERTEBRAE: No fracture or traumatic subluxation. No discrete lytic or blastic abnormality observed. Normal alignment. Normal craniocervical junction and cervicothoracic junction. DISCS and SPINAL CANAL: Disc heights are preserved. 3 mm posterior disc bulge C3-4, 2.5 mm posterior disc bulge at C4-5. NECK SOFT TISSUES: No prevertebral soft tissue swelling. There is no cervical adenopathy. LUNG APICES: Clear. CT/Spine Cervical without Contras IMPRESSION: No evidence of acute cervical spinal fracture. Individualized dose optimization techniques were used for this CT. at 1925 Reported and signed by: David Ruelas MD Electronically Signed: David Ruelas MD at 19:24 EST Tel , Service support ,
--- NOTE | 2020-12-23 18:20 | CT_ITS ---
EXAMINATION : Head CT w/out contrast HISTORY : head injury COMPARISON : None. TECHNIQUE : Multiple contiguous axial images were obtained from the skull base to the vertex without intravenous contrast. A radiation dose optimization technique was used for this scan. FINDINGS : The ventricles and sulci are normal in size. There is no evidence for acute intracranial hemorrhage, mass effect, or midline shift. There is no extra-axial fluid collection. There is normal adam-white differentiation, without CT evidence of acute ischemia or infarct. The skull base and calvarium are unremarkable. The orbits are unremarkable. The paranasal sinuses are clear. The mastoid air cells are well-aerated. The soft tissues are unremarkable. CT/Brain/Head without Contrast IMPRESSION: No acute intracranial abnormality. Electronically Signed: Pa Walker MD at 18:54 EST Tel , Service support ,
--- NOTE | 2020-12-23 18:38 | EX.ED.DYSGE1 ---
HPI History of Present Illness Chief Complaint: Head Injury Narrative Narrative: Patient is a 45-year-old female who states yesterday she was walking when a tree branch struck her in the right side of the forehead. She states this caused loss of consciousness. She denies any blood thinner use but states that since that time she has had a headache and mild dizziness. She states that as the symptoms have not improved she presents for evaluation. [facility] Medical History Carpal tunnel syndrome Depression Diverticulosis Heart attack History of kidney cancer Leiomyoma Right shoulder pain Home Medications loratadine 10 mg tablet 10 mg PO DAILY 08/27/18 [History Last Taken Unknown] omeprazole 40 mg capsule,delayed release 40 mg PO DAILY 08/27/18 [History Last Taken 09/03/18 10:00] pramipexole 0.5 mg tablet 0.5 mg PO QHS 08/27/18 [History Last Taken Unknown] albuterol sulfate 1 - 2 puff INHALATION Q4H PRN PRN 09/02/18 [History Last Taken 12/03/18 08:00 1 - 2 PUFF] ondansetron 8 mg PO Q12H PRN PRN 09/02/18 [History Last Taken Unknown] acetaminophen 500 mg PO PRN PRN 12/02/18 [History Last Taken Unknown] gabapentin 800 mg PO 4X/DAY 12/02/18 [History Last Taken 12/03/18 08:00 800 MG] galcanezumab-gnlm [Emgality Pen] 120 mg SUBCUT UD 12/23/20 [History Last Taken Unknown] Allergy/AdvReac Type Severity Reaction Status Date / Time adhesive tape Allergy Rash Verified 12/23/20 17:40 amoxicillin [Amoxicillin] Allergy Anaphylaxis Verified 12/23/20 17:40 aspirin [ASA] Allergy Other Verified 12/23/20 17:40 chocolate flavor Allergy Anaphylaxis Verified 12/23/20 17:40 citalopram hydrobromide Allergy Anaphylaxis Verified 12/23/20 17:40 [From Celexa] naproxen [From Naprosyn] Allergy Anaphylaxis Verified 12/23/20 17:40 tomato [Tomato] Allergy Rash Verified 12/23/20 17:40 venlafaxine HCl Allergy Anaphylaxis Verified 12/23/20 17:40 [From Effexor] acetaminophen AdvReac Other Verified 12/23/20 17:40 [From Tylenol-Codeine #3] codeine phosphate AdvReac Other Verified 12/23/20 17:40 [From Tylenol-Codeine #3] milk AdvReac Nausea Verified 12/23/20 17:40 morphine AdvReac Unknown Verified 12/23/20 17:40 tramadol AdvReac Other Verified 12/23/20 17:40 CHOCOLATE Allergy Anaphylaxis Uncoded 12/23/20 17:40 Surgical History history excision wart third finger right hand (~09/03/18) History of hysterectomy History of partial nephrectomy S/P section S/P excision of lipoma S/P laparoscopic cholecystectomy s/p left leg surgery Status post carpal tunnel release Social History Smoking Status: Current every day smoker tobacco type: cigarettes alcohol intake: current alcohol intake frequency: a few times a week substance use type: marijuana ROS ROS ED Constitutional Constitutional ED: Denies chills or fever(s) ENT ENT ED: Denies sore throat Cardiovascular Cardiovascular: Denies chest pain Respiratory/Chest Respiratory/Chest: Denies cough or dyspnea Gastrointestinal Gastrointestinal: Denies abdominal pain, diarrhea, nausea or vomiting Genitourinary Genitourinary ED: Denies dysuria Musculoskeletal Musculoskeletal: Reports neck pain; Denies back pain or myalgias Integumentary Denies rash Neurologic Neurologic: Reports headache(s) Hematologic/Lymphatic Hematologic/Lymphatic: Denies easy bleeding or easy bruising EXAM Physical Exam Const Vital Signs: 12/23/20 17:40 12/23/20 18:00 Temperature 97.6 F L Temperature Source Temporal Pulse Rate 73 Respiratory Rate 16 Respiratory Effort Normal Non-Labored Respiratory Depth Normal Respiratory Pattern Normal Blood Pressure 141/87 H Blood Pressure Mean 105 Pulse Ox 98 Oxygen Delivery Method Room Air Room Air Positive well nourished and well developed General Appearance ED: well developed HEENT HEENT Narrative: Small hematoma to the right frontal portion of the scalp no signs of depressed or basilar skull fracture Eyes PERRL and EOMs intact bilaterally Neck Neck Narrative: No bony deformity or step-off of the cervical spine but there is mild midline pain to palpation Resp normal respiratory effort and clear to auscultation bilaterally Cardio regular rate and regular rhythm GI normal to inspection, nondistended, normoactive bowel sounds, non-tender, non-distended and no masses Auscultation: normoactive bowel sounds Palpation: soft Extremity normal to inspection Neuro oriented x3 and CN's II-XII intact bilaterally Sensorium / Orientation: alert Motor Exam: strength 5/5 throughout Psych mental status grossly normal Skin Skin Narrative: Small hematoma to the frontal right portion of the scalp as documented above MDM MDM MDM Narrative Medical decision making narrative: Patient presented to the ER 1 day after a low mechanism report of head injury. However as she reported loss of consciousness and did have a small hematoma as well as neck pain elected perform imaging studies. Head and cervical spine CT displayed no signs of acute trauma. On reevaluation her neuro exam remains normal and therefore patient is safe for discharge home. Radiography Diagnostic Testing: Clinical Impression(s) from Imaging Studies Cervical Spine CT 12/23/20 18:09 IMPRESSION: No evidence of acute cervical spinal fracture. Individualized dose optimization techniques were used for this CT. at 1925 Reported and signed by: David Ruelas MD Electronically Signed: David Ruelas MD at 19:24 EST Tel , Service support , Brain CT 12/23/20 18:20 IMPRESSION: No acute intracranial abnormality. Electronically Signed: Pa Walker MD at 18:54 EST Tel , Service support , Discharge Plan Triage Chief Complaint: Head Injury ED Provider: Rafy Pfeiffer Dx/Rx/DC Orders Clinical Impression: Closed head injury, Mild concussion Instructions: Concussion Dc, ED Head Injury (Adult) Prescriptions: No Action loratadine 10 mg tablet 10 mg PO DAILY RF: 0 omeprazole 40 mg capsule,delayed release(DR/EC) 40 mg PO DAILY RF: 0 pramipexole 0.5 mg tablet 0.5 mg PO QHS RF: 0 albuterol sulfate 1 INHALER inhaler 1 - 2 puff inhalation Q4H PRN PRN (Reason: Sob &/Or Wheezing) RF: 0 ondansetron 4 MG tablet 8 mg PO Q12H PRN PRN (Reason: Nausea) RF: 0 acetaminophen 500 MG tablet 500 mg PO PRN PRN (Reason: Pain Or Fever) RF: 0 gabapentin 800 MG tablet 800 mg PO 4X/DAY RF: 0 Emgality Pen 120 mg/mL pen injector 120 mg SUBCUT UD RF: 0 Primary Care Provider: Marta Dobbins NP Referrals: Marta Dobbins NP, PHOTOGRAPHIC INTELLIGENCE OFFICER-C [Primary Care Provider] - Disposition Disposition: Home, Self Care
== END 2020-12-23 20:00 | disposition home or self-care (01) ==
PROVIDERS: Emergency Provider Emergency Medicine; PCP Nurse Practitioner Family
DX: S06.0X9A Concussion with loss of consciousness of unspecified duration, initial encounter (principal); S00.03XA Contusion of scalp, initial encounter; W22.8XXA Striking against or struck by other objects, initial encounter; Y93.01 Activity, walking, marching and hiking; Y92.9 Unspecified place or not applicable; Y99.8 Other external cause status; I25.2 Old myocardial infarction; F17.210 Nicotine dependence, cigarettes, uncomplicated
CPT/HCPCS: 70450; 72125; 99282

== ENCOUNTER 2022-01-14 10:58 | Emergency (ER) | payer MEDICAID, SELFPAY ==
[2022-01-14 10:59] VITALS: BP 128/84; PULSE 74; RESP 16; TEMP 36.6; O2SAT 99; BMI 34.4
--- NOTE | 2022-01-14 11:29 | CT_ITS ---
EXAM: CT ABDOMEN AND PELVIS WITHOUT INTRAVENOUS CONTRAST CLINICAL INDICATION: right flank pain TECHNIQUE: Helically acquired images were obtained of the abdomen and pelvis without intravenous contrast. This CT exam was performed using one or more of the following dose reduction techniques: automated exposure control, adjustment of the mA and/or kV according to patient size, and/or use of iterative reconstruction technique. This report was created using [employer] report generation technology. COMPARISON: CT Abdomen Pelvis dated 01/16/2016 FINDINGS: LOWER THORAX: Heterogeneous density of the lungs suggestive of air trapping related to small airway disease. ABDOMEN: LIVER: Normal. Homogeneous. GALLBLADDER AND BILE DUCTS: Cholecystectomy clips are in place. No intra- or extrahepatic biliary ductal dilation. PANCREAS: Normal. No focal cystic mass. SPLEEN: Normal. Normal size without focal cystic or solid mass. ADRENALS: Normal. No nodules. KIDNEYS AND URETERS: Interval changes of right renal surgery. Punctate left renal stone. No urinary tract obstruction. STOMACH AND BOWEL: Normal. No bowel distention. No focal inflammatory change. PELVIS: APPENDIX: Appendix is visualized and normal in appearance. BLADDER: Normal. REPRODUCTIVE: Uterus is absent. ABDOMEN and PELVIS: INTRAPERITONEAL SPACE: Normal. No ascites or other fluid collection. No free air. BONES/JOINTS: Normal. No suspicious lytic or blastic abnormality. SOFT TISSUES: Small fat-containing umbilical hernia is present. VASCULATURE: Normal. Abdominal aorta is non-dilated. LYMPH NODES: Normal. No enlarged lymph nodes. CT/Abdomen/Pelvis without Cont IMPRESSION: 1. Punctate left renal stone. 2. No evidence of urinary tract obstruction. 3. Interval surgery involving the right kidney. 4. Pulmonary air trapping related to small airway disease. Electronically Signed: Horace Morales MD at 13:06 EST ,
--- NOTE | 2022-01-14 11:30 | EX.ED.DYSGE1 ---
HPI History of Present Illness Chief Complaint: General Illness Detail of Chief Complaint: Patient with nausea vomiting and back pain that started this morning Informant: patient Narrative Narrative: Patient presents the emergency department back pain and vomiting that started this morning. Patient states that she is thrown up multiple times. Patient states she had flulike symptoms last week. Patient complains of a headache. She complains of body aches. She denies urinary symptoms. She has had history of kidney stones and her back pain is on the right side. Patient denies diarrhea. [facility] Medical History (Updated 01/14/22 @ 13:[address] Gladys Posadas, DO) Carpal tunnel syndrome Depression Diverticulosis Heart attack History of kidney cancer Leiomyoma Right shoulder pain Home Medications loratadine 10 mg tablet 10 mg PO DAILY 08/27/18 [History Last Taken Unknown] omeprazole 40 mg capsule,delayed release 40 mg PO DAILY 08/27/18 [History Last Taken 09/03/18 10:00] pramipexole 0.5 mg tablet 0.5 mg PO QHS restless legs 08/27/18 [History Last Taken Unknown] albuterol sulfate 90 mcg/actuation aerosol inhaler 1 - 2 puff inhalation Q4H PRN PRN Sob &/Or Wheezing 09/02/18 [History Last Taken 12/03/18 08:00 1 - 2 PUFF] ondansetron 4 mg disintegrating tablet 8 mg PO Q12H PRN PRN Nausea 09/02/18 [History Last Taken Unknown] acetaminophen 500 mg tablet 500 mg PO PRN PRN Pain Or Fever 12/02/18 [History Last Taken Unknown] gabapentin 800 mg tablet 800 mg PO 4X/DAY 12/02/18 [History Last Taken 12/03/18 08:00 800 MG] galcanezumab-gnlm 120 mg/mL subcutaneous pen injector (Emgality Pen) 120 mg subcut UD 12/23/20 [History Last Taken Unknown] metoclopramide HCl 5 mg tablet (Reglan) 5 mg PO Q6H PRN nausea and vomiting #10 tabs 01/14/22 [Rx Last Taken Unknown] oxycodone 5 mg capsule 5 mg PO BID PRN pain 2 days #10 caps 01/14/22 [Rx Last Taken Unknown] Allergy/AdvReac Type Severity Reaction Status Date / Time adhesive tape Allergy Rash Verified 01/14/22 11:03 amoxicillin [Amoxicillin] Allergy Anaphylaxis Verified 01/14/22 11:03 aspirin [ASA] Allergy Other Verified 01/14/22 11:03 chocolate flavor Allergy Anaphylaxis Verified 01/14/22 11:03 citalopram hydrobromide Allergy Anaphylaxis Verified 01/14/22 11:03 [From Celexa] naproxen [From Naprosyn] Allergy Anaphylaxis Verified 01/14/22 11:03 tomato [Tomato] Allergy Rash Verified 01/14/22 11:03 venlafaxine HCl Allergy Anaphylaxis Verified 01/14/22 11:03 [From Effexor] acetaminophen AdvReac Other Verified 01/14/22 11:03 [From Tylenol-Codeine #3] codeine phosphate AdvReac Other Verified 01/14/22 11:03 [From Tylenol-Codeine #3] milk AdvReac Nausea Verified 01/14/22 11:03 morphine AdvReac Unknown Verified 01/14/22 11:03 tramadol AdvReac Other Verified 01/14/22 11:03 Surgical History history excision wart third finger right hand (~09/03/18) History of hysterectomy History of partial nephrectomy S/P section S/P excision of lipoma S/P laparoscopic cholecystectomy s/p left leg surgery Status post carpal tunnel release Social History Smoking Status: Current every day smoker tobacco type: cigarettes alcohol intake: current alcohol intake frequency: a few times a week substance use type: marijuana ROS ROS ED Review of Systems ROS Unobtainable: other Constitutional Constitutional ED: Reports lethargy; Denies chills, fever(s), sweats or weight loss Eyes Eyes: Denies blurry vision, change in vision or diplopia ENT ENT ED: Denies rhinorrhea or sore throat Cardiovascular Cardiovascular: Denies chest pain, orthopnea or racing heartbeat Respiratory/Chest Respiratory/Chest: Reports cough; Denies dyspnea, dyspnea on exertion, orthopnea or sputum Gastrointestinal Gastrointestinal: Reports nausea and vomiting; Denies abdominal pain or diarrhea Genitourinary Genitourinary ED: Denies dysuria, hematuria or urinary frequency Musculoskeletal Musculoskeletal: Reports back pain and myalgias; Denies arthralgias or neck pain Integumentary Denies abscess, Abrasions or rash Neurologic Neurologic: Reports headache(s); Denies weakness Psychiatric Psychiatric: Denies anxiety, depression or suicidal thoughts Endocrine Endocrinology: Denies polydipsia, polyphagia or polyuria Hematologic/Lymphatic Hematologic/Lymphatic: Denies easy bleeding, easy bruising or lymphadenopathy Allergic/Immunologic Allergic/Immunologic ED: Denies mouth swelling, tongue swelling or urticaria EXAM Physical Exam Const Vital Signs: 01/14/22 10:59 01/14/22 11:54 01/14/22 13:13 Temperature 97.8 F Temperature Source Temporal Pulse Rate 74 87 Respiratory Rate 16 16 Respiratory Effort Normal Respiratory Pattern Normal Blood Pressure 128/84 H 128/74 H Blood Pressure Mean 98 92 Pulse Ox 99 99 Oxygen Delivery Method Room Air Positive well nourished and well developed General Appearance ED: well developed and NAD HEENT Reports TM's clear and moist mucous membranes normocephalic and atraumatic; Negative for trauma or tenderness Tympanic Membrane ED: Yes TM's clear Eyes PERRL and EOMs intact bilaterally General Eye ED: Negative for pale conjunctiva or scleral icterus Neck no lymphadenopathy, supple and no JVD General: Negative for tenderness Chest Wall inspection of chest normal and palpation of chest normal Chest: Negative for tenderness Resp normal respiratory effort and clear to auscultation bilaterally Effort and Inspection: Negative for respiratory distress or pain with movement Auscultation: Negative for rhonchi, wheezes or diminished lung sounds Cardio regular rate, regular rhythm, S1 normal heart sound, S2 normal heart sound and no murmurs Peripheral Pulses: pulses 2+ throughout GI normal to inspection, nondistended, normoactive bowel sounds, soft to palpation, non-tender, non-distended and no masses Back/Spine no thoracic nor lumbar tenderness Back/Spine Narrative: Patient is CVA tenderness on the right. Negative straight leg raises. Deep tendon reflexes plus 2 out of 4 bilaterally at the patella Achilles. Patient has normal 5 extension. Extremity normal to inspection General Extremety ED: Negative for edema General Extremity: Negative for edema Neuro oriented x3, CN's II-XII intact bilaterally, no sensory deficits noted and gait normal Sensorium / Orientation: awake, alert, oriented to person, oriented to place and oriented to time Motor Exam: strength 5/5 throughout and strength abnormal Psych mental status grossly normal Skin no rashes or lesions noted and no wounds MDM MDM MDM Narrative Medical decision making narrative: IV line established arrival. Patient was given Zofran and Dilaudid for pain. She continued to have nausea and so I gave her Reglan and Benadryl she felt improved. Lab work-up was unremarkable. Urinalysis was normal. I did do a CT flank to rule out kidney stone which was negative for kidney stone or other acute process. Patient has had prior cholecystectomy. At this point I suspect viral etiology to her symptoms. Patient tells me that her son was recently diagnosed with influenza although her influenza test was negative here. Patient also states that now her other family member that lives with him has come down with similar illness. This point recommended treating with Zofran for nausea and I will write her a few Oxy IR for pain. Patient advised to push fluids. She is to follow-up with her primary care physician 3 to 5 days. Lab Data Attestation: I reviewed the patient's lab results. Labs: Laboratory Results - last 24 hr 01/14/22 01/14/22 01/14/22 11:45 11:45 11:59 WBC 6.3 RBC 4.55 Hgb 14.9 Hct 42.9 MCV 94.3 MCH 32.7 H MCHC 34.7 RDW Std Deviation 45.2 H RDW Coeff of [place] 13.2 Plt Count 277 MPV 9.3 Immature Gran % (Auto) 0.800 Neut % (Auto) 54.7 Lymph % (Auto) 34.6 [place] % (Auto) 7.0 Eos % (Auto) 2.4 Baso % (Auto) 0.5 Absolute Neuts (auto) 3.4 Absolute Lymphs (auto) 2.16 Nucleated RBC % 0 Sodium 141 Potassium 3.7 Chloride 111 H Carbon Dioxide 29.0 Anion Gap 1 L BUN 13 Creatinine 0.79 Estim Creat Clear Calc 104.01 Est GFR (MDRD) Af Amer 100 Est GFR (MDRD) Non-Af 82 BUN/Creatinine Ratio 16.4 Glucose 111 H Calcium 9.2 Urine Color Yellow Urine Clarity Clear Urine pH 8.0 Ur Specific [place] 1.015 Urine Protein Negative Urine Glucose (UA) Normal Urine Ketones Negative Urine Occult Blood Negative Urine Nitrite Negative Urine Bilirubin Negative Urine Urobilinogen Normal Ur Leukocyte Esterase Negative Urine RBC 0 SEEN Urine WBC 0 SEEN Ur Squamous Epith Cells 0-5 SEEN Urine Bacteria 0 SEEN Urine Mucus 0 SEEN Radiography Diagnostic Testing: Clinical Impression(s) from Imaging Studies Abdomen/Pelvis CT 01/14/22 11:29 IMPRESSION: 1. Punctate left renal stone. 2. No evidence of urinary tract obstruction. 3. Interval surgery involving the right kidney. 4. Pulmonary air trapping related to small airway disease. Electronically Signed: Horace Morales MD at 13:06 EST Reading Location ID and State: [facility] / [place] Tel , Service support , Discharge Plan Triage Chief Complaint: General Illness ED Provider: Gladys Posadas Dx/Rx/DC Orders Clinical Impression: Acute viral syndrome, Back pain, Vomiting Instructions: ED Back Pain (Acute or Chronic), ED Viral Syndrome (Adult), ED Vomiting (Adult) Prescriptions: New metoclopramide HCl [Reglan] 5 mg tablet 5 mg PO Q6H PRN (Reason: nausea and vomiting) Qty: 10 0RF oxycodone 5 mg capsule 5 mg PO BID PRN (Reason: pain) 2 Days Qty: 10 0RF No Action loratadine 10 mg tablet 10 mg PO DAILY omeprazole 40 mg capsule,delayed release(DR/EC) 40 mg PO DAILY pramipexole 0.5 mg tablet 0.5 mg PO QHS albuterol sulfate 1 INHALER inhaler 1 - 2 puff inhalation Q4H PRN PRN (Reason: Sob &/Or Wheezing) ondansetron 4 MG tablet 8 mg PO Q12H PRN PRN (Reason: Nausea) acetaminophen 500 MG tablet 500 mg PO PRN PRN (Reason: Pain Or Fever) gabapentin 800 MG tablet 800 mg PO 4X/DAY Emgality Pen 120 mg/mL pen injector 120 mg SUBCUT UD Label Comments: INJECT 2 ML UNDER THE SKIN ONE TIME ONLY FOR 1 DOSE. DO NOT SHAKE Rx Instructions: every two weeks Primary Care Provider: Marta Dobbins NP Referrals: Marta Dobbins NP, SIDE STITCHING MACHINE OPERATOR-C [Primary Care Provider] - 3-5 Days Disposition Disposition: Home, Self Care
[2022-01-14] MEDS: Ondansetron 4 MG/2 ML Vial IV (11:43)
[2022-01-14] MEDS: HYDROmorphone 1 MG/ML Syringe IV (11:43)
[2022-01-14] MEDS: 0.9% Normal Saline 1,000 ML 1000 ML IV (11:44)
[2022-01-14 11:55] LABS: Absolute Lymphocyte Count 2.16 X10^3/uL (0.83-4.51); Absolute Neutrophil Count 3.4 X10^3/uL (2.0-7.7); Basophil# 0.03 X10^3/uL; Basophil% 0.5 % (0-1); Eosinophil# 0.15 X10^3/uL; Eosinophils% 2.4 % (0-5); Hematocrit 42.9 % (37-47); Hemoglobin 14.9 g/dL (12.0-15.0); Lymphocyte # 2.16 X10^3/ul (0.83-4.51); Lymphocyte % 34.6 % (19-41); Mean Corp Hgb Conc 34.7 g/dL (32-36); Mean Corpuscular Hgb 32.7 pg (27.0-32.0); Mean Corpuscular Volume 94.3 fL (81-99); Mean Platelet Vol. 9.3 fl (6.2-12.0); Monocyte# 0.44 X10^3/uL; NRBC Flagged by Analyzer 0 % (0-5); Neutrophil # 3.42 X10^3/uL (2.7-7.7); Neutrophil % 54.7 % (47-70); Platelet Count 277 K/mm3 (150-450); RBC Distribution Width CV 13.2 % (11.6-14.6); RBC Distribution Width SD 45.2 fl (35.1-43.9); Red Blood Count 4.55 M/mm3 (4.2-5.4); White Blood Count 6.3 K/mm3 (4.4-11.0)
[2022-01-14 11:59] LABS: Bacteria 0 SEEN /hpf (None Seen); Mucous, Urine 0 SEEN /hpf (<or=2+); Red Blood Cells-Urine 0 SEEN /hpf (0-5); White Blood Cells 0 SEEN /hpf (0-5)
[2022-01-14 12:02] LABS: Color, Urine Yellow (Yellow); Glucose, Dipstick Normal (Normal); Ketone-Dipstick Negative (Negative); Leukocyte Esterase-Dipstick Negative /ul (Negative); Nitrite-Dipstick Negative (Negative); Occult Blood-Urine Negative /ul (Negative); Protein-Dipstick Negative (Negative); Specific Gravity, Urine 1.015 (1.002-1.030); Urine Bilirubin Dipstick Negative (Negative); Urine Clarity Clear (Clear); Urine Urobilinogen Normal (Normal)
[2022-01-14 12:07] LABS: Anion Gap 1 (5-15); BUN 13 mg/dL (7-18); BUN/Creat Ratio 16.4 RATIO (10-20); Calcium,Total 9.2 mg/dL (8.5-10.1); Chloride 111 mmol/L (98-107); Creatinine, Serum 0.79 mg/dL (0.55-1.02); EST Glomerular Filtration Rate 82 mL/min (>60); Est Glom Filt Rate - Afr Amer 100 mL/min (>60); Estimated Creatinine Clearance 104.01 ml/min; Glucose 111 mg/dL (74-106); Potassium 3.7 mmol/L (3.5-5.1); Sodium Level 141 mmol/L (136-145)
[2022-01-14 12:11] LABS: Squamous Epithelial Cells - UA 0-5 SEEN /hpf (5-10)
[2022-01-14] MEDS: Metoclopramide 10 MG/2 ML Vial IV (12:29)
[2022-01-14] MEDS: DiphenhydrAMINE 50 MG/ML Syringe 25 MG IV (12:29)
[2022-01-14 13:13] VITALS: BP 128/74; PULSE 87; RESP 16; O2SAT 99
[2022-01-14 13:36] LABS: AST(SGOT) 28 U/L (15-37); Alanine Aminotransfer ALT/SGPT 58 U/L (13-56); Albumin, Serum 3.7 g/dL (3.2-5.0); Alkaline Phosphatase 116 U/L (45-117); Bilirubin, Direct 0.11 mg/dL (0.00-0.30); Globulin 3.7 g/dL (2.2-4.2); Protein, Total 7.4 g/dL (6.4-8.2)
[2022-01-14 13:39] VITALS: BP 127/87; PULSE 78; RESP 16; O2SAT 97
== END 2022-01-14 13:40 | disposition home or self-care (01) ==
PROVIDERS: Emergency Provider Emergency Medicine; PCP Nurse Practitioner Family; Visit Provider Emergency Medicine
DX: B34.9 Viral infection, unspecified (principal); R11.2 Nausea with vomiting, unspecified; M54.9 Dorsalgia, unspecified; R51.9 Headache, unspecified; F17.210 Nicotine dependence, cigarettes, uncomplicated; Z79.899 Other long term (current) drug therapy; I25.2 Old myocardial infarction
CPT/HCPCS: 74176; 80048; 80076; 81001; 85025; 87804; 96361; 96374; 96375; 99283; J7030; A4216; J2405

== ENCOUNTER 2022-02-21 15:03 | Emergency (ER) | payer MEDICAID, SELFPAY ==
[2022-02-21 15:04] VITALS: BP 136/76; PULSE 84; RESP 15; TEMP 36.6; O2SAT 96; BMI 39.2
--- NOTE | 2022-02-21 15:16 | CT_ITS ---
STUDY: CT BRAIN WITHOUT CONTRAST REASON FOR EXAM: Female, 47 years old. Blunt head trauma, loss of conscious, headache RADIATION DOSAGE (If Supplied By Facility): CTDIvol = ( 47.06 ) mGy, DLP = ( 819.74 ) mGycm TECHNIQUE: Transaxial CT imaging of the brain was performed without administration of intravenous contrast material. Individualized dose optimization techniques were used for this CT. COMPARISON: Comparison is made with prior study dated 12/23/2020. FINDINGS: Normal soft tissue structures. Normal calvarium. Normal size ventricles and extra-axial spaces for the patient''s age. Normal white matter tracts of the cerebral hemispheres. Normal basal ganglia and thalami. Normal brainstem. Normal cerebellum. There is no intracranial hemorrhage. There are no findings of an acute ischemic infarction. Normal visualized paranasal sinuses. CT/Brain/Head without Contrast IMPRESSION: Normal unenhanced CT scan of the brain. Electronically Signed: Tyrone Dean MD at 15:52 EST ,
--- NOTE | 2022-02-21 15:16 | EDS_ITS ---
HPI History of Present Illness Chief Complaint: Head Injury Detail of Chief Complaint: Struck left denominational area by branch with LOC, headache and visual disturbance Informant: patient Onset/Context/Timing Onset: Hours Mechanism/Context: Blunt Injury Quality of Pain: Aching Location: Left denominational region Current Severity: Moderate Maximum Severity: Severe Worsened by: Palpation Relieved by: Left temporal region Associated Symptoms Associated Symptoms: Positive for Loss of consciousness; Negative for Parasthesias, Weakness, Loss of function, Inability to ambulate or Amnesia Length of loss of consciousness: 5 minutes Narrative Narrative: Patient is a 47-year-old woman with history of migraine headaches, GERD, renal/ureterolithiasis and malignancy of kidney. The kidney surgery was done at [facility]. She was seen by Dr. Sosa. Patient presently complains of headache. She complains of change in vision. She does report nausea without vomiting. She states she was cutting a tree at her sisters. A branch that was 4 cm in diameter struck her left side of the head near the denominational area. She complains of pain in that area. She denies ringing or ears decreased hearing. She denies difficulty opening closing her mouth. She denies smell alignment of her teeth. She denies difficulty breathing from her nose. She denies change in voice. Denies neck pain. She denies paresthesia, anesthesia or motor weakness. She denies trauma to her chest. She denies chest discomfort or shortness of breath. Review of prior records indicates patient was seen for prior closed head injury. She was discharged after evaluation. Tetanus Immunization: 5-10 years Prior similar symptoms: Yes Recent Illness/Hospitalization: No PFSH PFSH Medical History Carpal tunnel syndrome Depression Diverticulosis Heart attack History of kidney cancer Leiomyoma Right shoulder pain Home Medications loratadine 10 mg tablet 10 mg PO DAILY 08/27/18 [History Last Taken Unknown] omeprazole 40 mg capsule,delayed release 40 mg PO DAILY 08/27/18 [History Last Taken 09/03/18 10:00] pramipexole 0.5 mg tablet 0.5 mg PO QHS restless legs 08/27/18 [History Last Taken Unknown] albuterol sulfate 90 mcg/actuation aerosol inhaler 1 - 2 puff inhalation Q4H PRN PRN Sob &/Or Wheezing 09/02/18 [History Last Taken 12/03/18 08:00 1 - 2 PUFF] ondansetron 4 mg disintegrating tablet 8 mg PO Q12H PRN PRN Nausea 09/02/18 [History Last Taken Unknown] acetaminophen 500 mg tablet 500 mg PO PRN PRN Pain Or Fever 12/02/18 [History Last Taken Unknown] gabapentin 800 mg tablet 800 mg PO 4X/DAY 12/02/18 [History Last Taken 12/03/18 08:00 800 MG] galcanezumab-gnlm 120 mg/mL subcutaneous pen injector (Emgality Pen) 120 mg subcut UD 12/23/20 [History Last Taken Unknown] metoclopramide HCl 5 mg tablet (Reglan) 5 mg PO Q6H PRN nausea and vomiting #10 tabs 01/14/22 [Rx Last Taken Unknown] oxycodone 5 mg capsule 5 mg PO BID PRN pain 2 days #10 caps 01/14/22 [Rx Last Taken Unknown] ondansetron 4 mg disintegrating tablet 4 mg PO Q8H PRN PRN Nausea #10 tabs 02/21/22 [Rx Last Taken Unknown] Allergy/AdvReac Type Severity Reaction Status Date / Time adhesive tape Allergy Rash Verified 02/21/22 15:04 amoxicillin [Amoxicillin] Allergy Anaphylaxis Verified 02/21/22 15:04 aspirin [ASA] Allergy Other Verified 02/21/22 15:04 chocolate flavor Allergy Anaphylaxis Verified 02/21/22 15:04 citalopram hydrobromide Allergy Anaphylaxis Verified 02/21/22 15:04 [From Celexa] naproxen [From Naprosyn] Allergy Anaphylaxis Verified 02/21/22 15:04 tomato [Tomato] Allergy Rash Verified 02/21/22 15:04 venlafaxine HCl Allergy Anaphylaxis Verified 02/21/22 15:04 [From Effexor] acetaminophen AdvReac Other Verified 02/21/22 15:04 [From Tylenol-Codeine #3] codeine phosphate AdvReac Other Verified 02/21/22 15:04 [From Tylenol-Codeine #3] milk AdvReac Nausea Verified 02/21/22 15:04 morphine AdvReac Unknown Verified 02/21/22 15:04 tramadol AdvReac Other Verified 02/21/22 15:04 Surgical History history excision wart third finger right hand (~09/03/18) History of hysterectomy History of partial nephrectomy S/P section S/P excision of lipoma S/P laparoscopic cholecystectomy s/p left leg surgery Status post carpal tunnel release Social History (Updated 02/21/22 @ 15:[address] Nuno Rodriguez MD) household members: significant other Smoking Status: Current every day smoker tobacco type: cigarettes alcohol intake: current alcohol intake frequency: a few times a week substance use type: marijuana ROS ROS ED Constitutional Constitutional ED: Denies chills, fever(s), subjective, sweats or weight loss Eyes Eyes: Reports blurry vision bilateral and other Details: She denies photophobia or loss of vision. ; Denies change in vision ENT ENT ED: Reports other Details: Additional information HPI narrative. ; Denies ear pain, rhinorrhea or sore throat Cardiovascular Cardiovascular: Denies chest pain or palpitations Respiratory/Chest Respiratory/Chest: Denies cough, dyspnea or dyspnea on exertion Gastrointestinal Gastrointestinal: Reports nausea; Denies abdominal pain or vomiting Genitourinary Genitourinary ED: Denies dysuria, hematuria or urinary frequency Musculoskeletal Musculoskeletal: Denies arthralgias, back pain, myalgias or neck pain Integumentary Denies Abrasions or rash Neurologic Neurologic: Reports headache(s); Denies paresthesias or weakness Psychiatric Psychiatric: Denies anxiety or depression Endocrine Endocrinology: Denies cold intolerance or heat intolerance Hematologic/Lymphatic Hematologic/Lymphatic: Denies easy bleeding or easy bruising EXAM Physical Exam Const Vital Signs: 02/21/22 15:04 02/21/22 15:20 Temperature 97.8 F Temperature Source Temporal Pulse Rate 84 Respiratory Rate 15 Respiratory Effort Normal Non-Labored Respiratory Depth Normal Respiratory Pattern Normal Blood Pressure 136/76 H Blood Pressure Mean 96 Pulse Ox 96 Oxygen Delivery Method Room Air Positive well nourished, well developed and obese General Appearance ED: well developed and NAD Nutritional Appearance: obese HEENT HEENT Narrative: There is pain palpation over the left denominational region. There is slight soft tissue swelling noted. There is no palpable defect. There is no clinical find ings of basilar skull fracture. There is no evidence of trauma to the ears. There is no septal deviation hematoma. There is no dental trauma. Uvula is midline. There is no deviation tongue or protrusion. Eyes PERRL and EOMs intact bilaterally General Eye ED: Yes other Other Details: There is no subconjunctival hemorrhage. There is no nystagmus. There is no foot phobia. Neck full ROM Neck Narrative: There is no pain the patient anterior posterior neck and specifically midline over the spinous process of the cervical spines. She has full active range of motion with no evidence of pain hesitation etc. Chest Wall palpation of chest normal Resp normal respiratory effort and clear to auscultation bilaterally Cardio regular rhythm, S1 normal heart sound, S2 normal heart sound and no murmurs GI normal to inspection, nondistended, normoactive bowel sounds, non-tender, non- distended and no masses Palpation: soft Back/Spine normal to inspection and no thoracic nor lumbar tenderness Extremity full ROM General Extremety ED: Negative for deformity or edema General Extremity: Negative for deformity or edema Neuro oriented x3, CN's II-XII intact bilaterally, moves all extremities, no focal motor deficits, no sensory deficits noted and gait normal Dawna Coma Scale: document GCS findings Spontaneous Obeys Commands Oriented 15 Deep Tendon Reflexes: Rt Triceps (C7): 2+, Lt Triceps (C7): 2+, Rt Biceps (C5, C6): 2+, Lt Biceps (C5, C6): 2+, Rt Patellar (L4): 2+, Lt Patellar (L4): 2+, Rt Ankle (S1): 2+ and Lt Ankle (S1): 2+ Deep Tendon Reflexes Back: Rt Patellar (L4): 2+, Lt Patellar (L4): 2+, Rt Ankle (S1): 2+ and Lt Ankle (S1): 2+ Plantar Reflex: Downgoing: bilateral (There is no clonus.) Psych mental status grossly normal and thought process normal Skin no rashes or lesions noted, no wounds, skin turgor normal and no jaundice MDM MDM MDM Narrative Medical decision making narrative: With history of head trauma loss of conscious 5 minutes based on the [place] CT head rule and the [place]ia rule imaging of the head is warranted. CT of the head without contrast was ordered to evaluate for epidural hematoma in light of area of trauma, subdural hematoma, intraparenchymal contusion versus traumatic subarachnoid hemorrhage. Her symptoms could also be due to a concussion. Patient was made NPO. Review of prior records indicates patient had surgery for renal carcinoma at the [facility] by Dr. Bermudez as previously described. Also has had urologic surgery by Dr. Guillen for obstructing ureteral stone. She has had no recent hospitalizations per review of records. She is not on an antiplatelet or anticoagulant. Patient was treated with Zofran ODT for nausea. Radiography Diagnostic Testing: Clinical Impression(s) from Imaging Studies Brain CT 02/21/22 15:16 IMPRESSION: Normal unenhanced CT scan of the brain. Electronically Signed: Tyrone Dean MD at 15:52 EST , CT of the head without contrast was reviewed by me at 1548. There is no evidence of fracture, fluid in the sinuses, subdural, epidural, traumatic subarachnoid or intraparenchymal bleed. Awaiting formal read by radiologist. Discharge Plan Triage Chief Complaint: Head Injury ED Provider: Nuno Rodriguez Dx/Rx/DC Orders Clinical Impression: Concussion with loss of consciousness <= 30 min, History of gastroesophageal reflux (GERD) Instructions: ED Concussion Prescriptions: New ondansetron [ondansetron] 4 mg tablet,disintegrating 4 mg PO Q8H PRN PRN (Reason: Nausea) Qty: 10 0RF No Action loratadine 10 mg tablet 10 mg PO DAILY omeprazole 40 mg capsule,delayed release(DR/EC) 40 mg PO DAILY pramipexole 0.5 mg tablet 0.5 mg PO QHS albuterol sulfate 1 INHALER inhaler 1 - 2 puff inhalation Q4H PRN PRN (Reason: Sob &/Or Wheezing) ondansetron 4 MG tablet 8 mg PO Q12H PRN PRN (Reason: Nausea) acetaminophen 500 MG tablet 500 mg PO PRN PRN (Reason: Pain Or Fever) gabapentin 800 MG tablet 800 mg PO 4X/DAY Emgality Pen 120 mg/mL pen injector 120 mg SUBCUT UD Label Comments: INJECT 2 ML UNDER THE SKIN ONE TIME ONLY FOR 1 DOSE. DO NOT SHAKE Rx Instructions: every two weeks metoclopramide HCl [Reglan] 5 mg tablet 5 mg PO Q6H PRN (Reason: nausea and vomiting) Qty: 10 0RF oxycodone 5 mg capsule 5 mg PO BID PRN (Reason: pain) 2 Days Qty: 10 0RF Primary Care Provider: Marta Dobbins NP Referrals: Marta Dobbins NP, [employer] [Primary Care Provider] - 10-14 Days if not better Activity Restrictions/Additional Instructions: 90-95 patient's diagnosed with concussion have resolution of symptoms in 4 to 6 weeks. The symptoms are present experience are due to the concussion. You should avoid any activity that puts her at risk for having head trauma until you are symptom-free. A prescription for nausea medicine was sent to your [facility] pharmacy. Disposition Disposition: Home, Self Care
[2022-02-21] MEDS: Ondansetron ODT 4 MG Tablet PO (15:41)
== END 2022-02-21 16:05 | disposition home or self-care (01) ==
PROVIDERS: Emergency Provider Emergency Medicine; PCP Nurse Practitioner Family; Visit Provider Emergency Medicine
DX: S06.0X1A Concussion with loss of consciousness of 30 minutes or less, initial encounter (principal); W22.8XXA Striking against or struck by other objects, initial encounter; Y93.H9 Activity, other involving exterior property and land maintenance, building and construction; Y99.8 Other external cause status; Y92.89 Other specified places as the place of occurrence of the external cause; F17.210 Nicotine dependence, cigarettes, uncomplicated; E66.9 Obesity, unspecified; K21.9 Gastro-esophageal reflux disease without esophagitis; Z68.39 Body mass index [BMI] 39.0-39.9, adult; Z79.899 Other long term (current) drug therapy
CPT/HCPCS: 70450; 99283

== ENCOUNTER 2023-09-18 17:01 | Emergency (ER) | payer MEDICAID, SELFPAY ==
[2023-09-18 17:02] VITALS: BP 123/78; PULSE 80; RESP 15; TEMP 36.3; O2SAT 96; BMI 36.8
== END 2023-09-18 17:57 | disposition left against medical advice (07) ==
LOC: ED 17:59
PROVIDERS: PCP Nurse Practitioner Family
DX: Z53.21 Procedure and treatment not carried out due to patient leaving prior to being seen by health care provider (principal)

== ENCOUNTER 2023-11-08 19:39 | Emergency (ER) | payer MEDICAID, SELFPAY ==
[2023-11-08 19:41] VITALS: BP 124/66; PULSE 92; RESP 18; TEMP 35.8; O2SAT 97; BMI 37.8
--- NOTE | 2023-11-08 21:31 | EDS_ITS ---
HPI <GILA Christine - Last Filed: 11/08/23 21:38> History of Present Illness Chief Complaint: Wound Check Narrative Narrative: Patient is a 48-year-old female with history of CAD, [place], who presents to the emergency department with 1 day of 2 splinters to the left index finger. Patient states that she was helping someone move, and she was grabbing a box bring with wood that was splintering and stuck into her finger. She states the pain is ongoing, she could not get them out and she is here for evaluation. Denies any specific redness. PFSH <GILA Christine - Last Filed: 11/08/23 21:38> [facility] Medical History Carpal tunnel syndrome Depression Diverticulosis Heart attack History of kidney cancer Leiomyoma Right shoulder pain Home Medications ?Medication ?Instructions ?Recorded ?Last Taken ?Type loratadine 10 mg tablet 10 mg PO DAILY 08/27/18 Unknown History omeprazole 40 mg capsule,delayed 40 mg PO DAILY 08/27/18 09/03/18 10:00 History release pramipexole 0.5 mg tablet 0.5 mg PO QHS restless legs 08/27/18 Unknown History albuterol sulfate 90 mcg/actuation 1 - 2 puff inhalation Q4H PRN PRN 09/02/18 12/03/18 08:00 History aerosol inhaler Sob &/Or Wheezing 1 - 2 PUFF ondansetron 4 mg disintegrating 8 mg PO Q12H PRN PRN Nausea 09/02/18 Unknown History tablet acetaminophen 500 mg tablet 500 mg PO PRN PRN Pain Or Fever 12/02/18 Unknown History gabapentin 800 mg tablet 800 mg PO 4X/DAY 12/02/18 12/03/18 08:00 History 800 MG ondansetron 4 mg disintegrating 4 mg PO Q8H PRN PRN Nausea #10 tabs 02/21/22 Unknown Rx tablet Allergy/AdvReac Type Severity Reaction Status Date / Time adhesive tape Allergy Rash Verified 11/08/23 19:41 amoxicillin (Amoxicillin) Allergy Anaphylaxis Verified 11/08/23 19:41 aspirin (ASA) Allergy Other Verified 11/08/23 19:41 chocolate flavor Allergy Anaphylaxis Verified 11/08/23 19:41 citalopram hydrobromide Allergy Anaphylaxis Verified 11/08/23 19:41 (From Celexa) naproxen (From Naprosyn) Allergy Anaphylaxis Verified 11/08/23 19:41 tomato (Tomato) Allergy Rash Verified 11/08/23 19:41 venlafaxine HCl (From Allergy Anaphylaxis Verified 11/08/23 19:41 Effexor) acetaminophen (From AdvReac Other Verified 11/08/23 19:41 Tylenol-Codeine #3) codeine phosphate (From AdvReac Other Verified 11/08/23 19:41 Tylenol-Codeine #3) milk AdvReac Nausea Verified 11/08/23 19:41 morphine AdvReac Unknown Verified 11/08/23 19:41 tramadol AdvReac Other Verified 11/08/23 19:41 Surgical History history excision wart third finger right hand (~09/03/18) History of hysterectomy History of partial nephrectomy S/P section S/P excision of lipoma S/P laparoscopic cholecystectomy s/p left leg surgery Status post carpal tunnel release Social History (Updated 02/21/22 @ 15:[address] Nuno Rodriguez MD) household members: significant other Smoking Status: Current every day smoker tobacco type: cigarettes alcohol intake: current alcohol intake frequency: a few times a week substance use type: marijuana ROS <GILA Christine - Last Filed: 11/08/23 21:38> ROS ED ROS Narrative Constitutional: Negative for fever, chills, weight loss, weakness Eyes: Negative for vision loss, vision change, double vision ENT: Negative for any sore throat, ear pain, congestion Cardiovascular: Negative for any chest pain, tightness, palpitations Respiratory: Negative for any cough, sputum production, hemoptysis, dyspnea, dyspnea on exertion, orthopnea Gastrointestinal: Negative for any abdominal pain, nausea, vomiting, diarrhea, constipation, blood in stool, blood in vomit : Negative for any urinary frequency, dysuria, retention, blood in urine Muscle skeletal: Negative for any neck pain, back pain Neurological: Negative for any headache, syncope, dizziness Skin: Negative for any rashes, itching, abrasions, lacerations. Positive for splinter to the left index finger x 2 Psychiatric: Negative for any depression, anxiety, stress, suicidal ideation, homicidal ideation Hematologic: Negative for any excessive bruising, easy bleeding EXAM <GILA Christine - Last Filed: 11/08/23 21:38> Physical Exam Narrative Exam Narrative: Vital signs reviewed. Extremities: No peripheral edema, no signs of gross trauma or deformity. Active full range of motion of all extremities. Patient has 2 splinters to the palmar aspect of the left index finger, these are just inferior to the PIP joint. They are roughly 0.5 cm in length. One is thicker than the other. Mostly superficial. There is no evidence of any significant redness or infection. Neuro: Cranial nerves II through XII intact, no focal neurological deficits. Skin: Clean dry and intact with no rash, purpura, petechiae, vesicles or pustules. Backs/flank: No CVA tenderness, no midline spinal tenderness, no deformity. Psych: Normal mood and affect. No SI, HI or acute psychosis. Const Vital Signs: 11/08/23 19:41 Temperature 96.4 F L Temperature Source Temporal Pulse Rate 92 Respiratory Rate 18 Blood Pressure 124/66 H Blood Pressure Mean 85 Pulse Ox 97 Oxygen Delivery Method Room Air Positive well nourished and well developed General Appearance ED: well developed <Elmer Nelson MD - Last Filed: 11/08/23 22:35> Physical Exam Const Vital Signs: 11/08/23 19:41 Temperature 96.4 F L Temperature Source Temporal Pulse Rate 92 Respiratory Rate 18 Blood Pressure 124/66 H Blood Pressure Mean 85 Pulse Ox 97 Oxygen Delivery Method Room Air MDM <GILA Christine - Last Filed: 11/08/23 21:38> [facility] Treatment and Re-Evaluation :: Differential diagnosis includes however is not limited to: Infection, foreign body, cellulitis Patient appears generally well, vital signs are stable, patient is nontoxic- appearing. Presenting to the emergency department with 2 splinters to the left index finger. Secondary to the patient's pain when trying to get the splinters. I was able to use lidocaine 1% to digitally block the left index finger. I was able to use in 18-gauge needle as well as tweezers. I was able to get to 0.5 cm pieces of wood out. Patient will be updated on her tetanus vaccination today. At this time, patient area seems clean, there is no evidence of redness. Patient be discharged home. Instructed keep the area clean and dry and to return for any worsening symptoms. <Elmer Nelson MD - Last Filed: 11/08/23 22:35> [facility] MDM Narrative Medical decision making narrative: Dr. Nelson: I have personally performed a face to face assessment of the patient and have reviewed the MADELIN Note. I performed a substantive portion of the visit including all aspects of the following. My louise findings include: History is carrying box brings for sister, laceration on wound with 2 splinters on index finger at PIP joint. Exam is positive laceration with 2 splinters contained within left index finger, volar aspect Medical Decision Making: Lidocaine 1% for local anesthesia, splinter removal. Update tetanus immunization. Discharge. Other additions or changes: [None] Discharge Plan Triage Chief Complaint: Wound Check ED Midlevel Provider: Eh Fine ED Provider: Elmer Nelson Dx/Rx/DC Orders Clinical Impression: Splinter in skin, Need for Tdap vaccination Instructions: ED Foreign Body, Soft Tissue (Removed) Prescriptions: No Action loratadine 10 mg tablet 10 mg PO DAILY omeprazole 40 mg capsule,delayed release(DR/EC) 40 mg PO DAILY pramipexole 0.5 mg tablet 0.5 mg PO QHS albuterol sulfate 1 INHALER inhaler 1 - 2 puff inhalation Q4H PRN PRN (Reason: Sob &/Or Wheezing) ondansetron 4 MG tablet 8 mg PO Q12H PRN PRN (Reason: Nausea) acetaminophen 500 MG tablet 500 mg PO PRN PRN (Reason: Pain Or Fever) gabapentin 800 MG tablet 800 mg PO 4X/DAY ondansetron [ondansetron] 4 mg tablet,disintegrating 4 mg PO Q8H PRN PRN (Reason: Nausea) Qty: 10 0RF Primary Care Provider: Marta Dobbins NP Referrals: Marta Dobbins NP, MACHINE [employer]-[facility] [Primary Care Provider] - Activity Restrictions/Additional Instructions: Your tetanus vaccination was updated today. Keep the area clean and dry. Print Language: Irish Disposition Disposition: Home, Self Care Discharge Date/Time: 11/08/23 22:06
[2023-11-08] MEDS: Diphth,Pertuss(Acell),Tet Vac 0.5 ML Vial IM (21:46)
== END 2023-11-08 22:06 | disposition home or self-care (01) ==
LOC: ED 21:38
PROVIDERS: Emergency Provider Emergency Medicine; PCP Nurse Practitioner Family; Referring Provider Emergency Medicine; Visit Provider Emergency Medicine
DX: S60.451A Superficial foreign body of left index finger, initial encounter (principal); W45.8XXA Other foreign body or object entering through skin, initial encounter; Y93.89 Activity, other specified; Y99.8 Other external cause status; F17.210 Nicotine dependence, cigarettes, uncomplicated; Z23 Encounter for immunization
CPT/HCPCS: 99283

== ENCOUNTER → 2024-03-28 | Outpatient (CLI) | payer MEDICAID, SELFPAY ==
--- NOTE | 2024-03-28 07:14 | MRI_ITS ---
PROCEDURE: MRI cervical spine without IV contrast REASON FOR EXAM: Pain, radiculopathy TECHNIQUE: Multisequence multiplanar MR images of the cervical spine were obtained without the administration of intravenous contrast. Imaging sequences were performed to best display suspected pathology. COMPARISON: No recent priors FINDINGS: Vertebral body heights are within normal limits. Negative for fracture or marrow replacement. Straightening of the normal lordosis. No significant scoliosis. Spinal cord is of normal caliber, contour and signal intensity. No paraspinal mass. C2-3: No focal disc abnormality, spinal stenosis or foraminal narrowing. C3-4: Posterior disc osteophyte complex. Bilateral uncovertebral arthrosis. Mild spinal stenosis. Mild bilateral foraminal narrowing. C4-5: Tiny central disc protrusion. Mild spinal stenosis. No significant foraminal narrowing. C5-6: Posterior disc osteophyte complex. Bilateral uncovertebral arthrosis. Mild spinal stenosis. Mild left foraminal narrowing. C6-7: No focal disc abnormality, spinal stenosis or foraminal narrowing. C7-T1: No focal disc abnormality, spinal stenosis or foraminal narrowing. MRI/Spine Cervical (Routine) IMPRESSION: 1. Acquired mild spinal stenosis from C3 through C6 as above. 2. No high-grade foraminal narrowing. Reading Location: [facility]
== END | disposition home or self-care (01) ==
LOC: MRI 06:59
PROVIDERS: PCP Nurse Practitioner Family; Referring Provider Student in an Organized Health Care Education/Training Program; Visit Provider Student in an Organized Health Care Education/Training Program
DX: M54.12 Radiculopathy, cervical region (principal)
CPT/HCPCS: 72141

== ENCOUNTER 2024-07-10 07:30 | Outpatient (RCR) | payer MEDICAID, SELFPAY ==
--- NOTE | 2024-06-17 15:48 | HP.OTEVAL_ITS ---
Patient's Visit Information Visit Information Visit Information: BRITTNEY ALCOCER is a 49 year old F, referred to Occupational Therapy by LARS MEDEIROS, with a diagnosis of left RF displaced fx of distal phalanx. Date of Evaluation: 06/17/24 Occupational Therapist: Tena Russell, DAVID/Omar, CHT Subjective Subjective: This 49 year old female was seen for OT eval with dx of left RF displaced fx of distal phalanx. DOI was sometime in 2024 and pt was holding her dogs leash when the dog ran and puller her hand breaking her finger. pt arrives 10 weeks and 5 days s/p from distal phalanx closed reduction with percutaneous pinning. Bone is healed OT eval is for eval and tx AROM/PROM, strengthening, WBAT and ROM as tolerated. pt is right-handed works at [employer] typically 2 days a week pt states she is limited with full use of her left hand with all ADls and IADls. Pain left RF: Current Pain Intensity: 6 Pain Intensity Range: 6 and 8 ROM MP: left RF 0/90 right 0/85 PIP: left RF 0/95 right 0/100 DIP: left RF 0/35 right 0/65 ROM Comments: pt demo with a decrease in end range of motion of left RF Strength Inventory Control Coordinator: left 15# with pain right 50# Lateral Pinch: left 16# right 16# Tripod Pinch: left 10# with pain right 10# Sensation Sensation Comments: pt reports hypersensitivity on tips of left MF/RF/LF with little finger more sensitive Quick DASH-Disab of Arm,Shoulder& Hand Quick DASH Score: 33.3325 Goals Goal:ROM equal to unaffected hand: Yes Goal:Inventory Control Coordinator/Pinch strength at least 75% of unaffected hand: Yes Goal:No pain with affected hand use: Yes Goal:Full use of affected hand in daily activities including work: Yes Rehabilitation General Assessment: pt arrives 10 weeks and 5 days s/p from distal phalanx closed reduction with percutaneous pinning. Bone is healed OT eval is for eval and tx AROM/PROM, strengthening, WBAT and ROM as tolerated. pt is limited with daily tasks due to pain and weakness. pt would benefit from further skilled OT services 1-2x week for 6 weeks to return pt to her PLOF. pt demo understanding and agree to POC. Rehabilitation Potential: Good Anticipated Interventions Anticipated Interventions: A/AAROM/PROM, Strengthening, Edema Control, Desensitization, Modalities, Orthoses, Joint Protection/Energy Conservation, Ergonomic Education, Fine Motor Coord/Sumeet, Education re assistive Equipment, Education re Diagnosis and Home Program Visit Plan Frequency: 2x /Week Duration: 6 Weeks TEXT: Thank you for the opportunity to evaluate your patient. For Medicare and Medicare HMO plans, please review the plan of care and approve it. It will need to be FAXED BACK to us at [phone] for Medicare purposes. Please let me know if there are questions or concerns regarding this plan of care. Physician Signature: Date:
--- NOTE | 2024-07-10 07:49 | HP.OTDCSUM_ITS ---
Discharge Summary D/C Summary: It has been my pleasure to treat BRITTNEY ALCOCER under orders from LARS MEDEIROS, for the diagnosis of left RF displaced fx of distal phalanx for a total of 6 visit(s). Please see the following information for a summary of their discharge status. 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 pt has met OT goals and is d/c at this time. Goals Patient Goals: Regain Mobility, Decrease Pain, Improve Fine Motor Skills, Use Hand/Wrist/Arm Normally Again and Be More Independent in ADLS Goal:ROM equal to unaffected hand: Yes Goal Progress: Goal Met Goal:Pharmacogeneticist/Pinch strength at least 75% of unaffected hand: Yes Goal:No pain with affected hand use: Yes Goal Progress: Goal Met Goal:Full use of affected hand in daily activities including work: Yes Goal Progress: Goal Met Plan Plan: d/c with pt to continue use of left hand as tolerated D/C Information Discharge Comments: pt demo great gains in ROM and strength as well as a decreased sensitivity to utilize her left hand with ADls and IADLs. Pt is initiating a health and wellness program to cont. with increased healthy lifestyle. pt also has returned to work without difficulty. pt agrees to d.c . d/c sentence: If there are questions or concerns regarding this patient's occupational therapy, please fell free to call me at [phone]. Thank you for the referral of this patient. Sincerely, Tena Russell, OTR/L, CHT
== END 2024-07-10 19:00 | disposition home or self-care (01) ==
LOC: OT 07:30
PROVIDERS: PCP Nurse Practitioner Family
DX: S62.635D Displaced fracture of distal phalanx of left ring finger, subsequent encounter for fracture with routine healing (principal)
CPT/HCPCS: 97110; 97140; 97166; 97530

== ENCOUNTER 2024-07-21 21:54 | Emergency (ER) | payer MEDICAID, SELFPAY ==
[2024-07-21 21:56] VITALS: BP 123/78; PULSE 75; RESP 18; TEMP 36.6; O2SAT 100; BMI 40.2
[2024-07-21 21:59] VITALS: BP 123/78; PULSE 75; RESP 18; TEMP 36.6; O2SAT 100
--- NOTE | 2024-07-21 23:26 | EX.ED.DYSGE1 ---
HPI History of Present Illness Chief Complaint: Dental Informant: patient Narrative Narrative: Patient is a 49-year-old female with past medical history of depression. She states that a few days ago she was eating chips when she sustained a cut to the roof of her mouth. She reports she has been doing salt water gargles but despite this she has had increased swelling and pain and she has concern for infection and therefore she comes in for evaluation [facility] Medical History History of kidney cancer Heart attack Right shoulder pain Depression Leiomyoma Diverticulosis Carpal tunnel syndrome Home Medications ?Medication ?Instructions ?Recorded ?Last Taken ?Type loratadine 10 mg tablet 10 mg PO DAILY 08/27/18 Unknown History albuterol sulfate 90 mcg/actuation 1 - 2 puff inhalation Q4H PRN PRN 09/02/18 12/03/18 08:00 History aerosol inhaler Sob &/Or Wheezing 1 - 2 PUFF ondansetron 4 mg disintegrating 8 mg PO Q12H PRN PRN Nausea 09/02/18 Unknown History tablet acetaminophen 500 mg tablet 500 mg PO PRN PRN Pain Or Fever 12/02/18 Unknown History gabapentin 800 mg tablet 800 mg PO 4X/DAY 12/02/18 12/03/18 08:00 History 800 MG fremanezumab-vfrm 225 mg/1.5 mL 225 mg subcut QMONTH 02/22/24 Unknown History subcutaneous auto-injector (Ajovy) lansoprazole 30 mg capsule,delayed 30 mg PO QDAY 02/22/24 Unknown History release mirabegron 50 mg tablet,extended 50 mg PO QDAY 02/22/24 Unknown History release 24 hr rimegepant 75 mg disintegrating 75 mg PO ONCE PRN 02/22/24 Unknown History tablet (Nurtec ODT) simvastatin 20 mg tablet 20 mg PO QDAY 02/22/24 Unknown History MAGIC MOUTH WASH (BMX) 180 mL 5 ml PO 4X/DAY PRN pain #180 mL 07/21/24 Unknown Rx suspension clindamycin HCl 300 mg capsule 300 mg PO 4X/DAY 10 days #40 caps 07/21/24 Unknown Rx (Cleocin HCl) Allergy/AdvReac Type Severity Reaction Status Date / Time adhesive tape Allergy Rash Verified 04/17/24 08:58 amoxicillin (Amoxicillin) Allergy Anaphylaxis Verified 04/17/24 08:58 aspirin (ASA) Allergy Other Verified 04/17/24 08:58 chocolate flavor Allergy Anaphylaxis Verified 04/17/24 08:58 citalopram hydrobromide Allergy Anaphylaxis Verified 04/17/24 08:58 (From Celexa) naproxen (From Naprosyn) Allergy Anaphylaxis Verified 04/17/24 08:58 tomato (Tomato) Allergy Rash Verified 04/17/24 08:58 venlafaxine HCl (From Allergy Anaphylaxis Verified 04/17/24 08:58 Effexor) acetaminophen (From AdvReac Other Verified 04/17/24 08:58 Tylenol-Codeine #3) codeine phosphate (From AdvReac Other Verified 07/21/24 21:56 Tylenol-Codeine #3) milk AdvReac Nausea Verified 04/17/24 08:58 morphine AdvReac Unknown Verified 04/17/24 08:58 tramadol AdvReac Other Verified 04/17/24 08:58 Surgical History History of hysterectomy history excision wart third finger right hand (~09/03/18) s/p left leg surgery Status post carpal tunnel release History of partial nephrectomy S/P excision of lipoma S/P laparoscopic cholecystectomy S/P section Social History (Updated 07/21/24 @ 23:03 by Marie Funes) household members: significant other housing: house Smoking Status: Current every day smoker tobacco type: cigarettes alcohol intake: current alcohol intake frequency: a few times a week substance use type: marijuana ROS ROS ED Constitutional Constitutional ED: Denies chills or fever(s) Eyes Eyes: Denies change in vision ENT ENT ED: Reports other Details: Positive gum/dental pain Cardiovascular Cardiovascular: Denies chest pain Respiratory/Chest Respiratory/Chest: Denies cough or dyspnea Gastrointestinal Gastrointestinal: Denies abdominal pain, diarrhea, nausea or vomiting Musculoskeletal Musculoskeletal: Denies myalgias or neck pain Integumentary Reports abscess; Denies rash Neurologic Neurologic: Denies headache(s) Hematologic/Lymphatic Hematologic/Lymphatic: Denies easy bleeding or easy bruising EXAM Physical Exam Const Vital Signs: 07/21/24 21:56 07/21/24 21:59 Temperature 97.8 F 97.8 F Temperature Source Temporal Temporal Pulse Rate 75 75 Respiratory Rate 18 18 Blood Pressure 123/78 H 123/78 H Blood Pressure Mean 93 93 Pulse Ox 100 100 Oxygen Delivery Method Room Air Room Air Positive well nourished and well developed General Appearance ED: well developed; Negative for pallor HEENT HEENT Narrative: Along the roof of the mouth there is a superficial abrasion along the midportion of the hard palate. There is surrounding soft tissue swelling consistent with abscess. No active drainage noted No airway edema or compromise No signs of ANUG Eyes PERRL and EOMs intact bilaterally Neck supple Neck Narrative: No brawny edema in the submental space to suggest Cesar's angina Resp normal respiratory effort and clear to auscultation bilaterally Cardio regular rate and regular rhythm Extremity normal to inspection Neuro oriented x3, CN's II-XII intact bilaterally and no sensory deficits noted Sensorium / Orientation: alert Motor Exam: strength 5/5 throughout Psych mental status grossly normal Skin no rashes or lesions noted General Skin Exam: Negative for jaundice or pallor MDM MDM MDM Narrative Medical decision making narrative: Patient arrived to the ER with stable vitals. History and exam is consistent with a hard palate dental abscess. There is no tongue or lip swelling to suggest anaphylaxis and no airway edema or compromise so there is no need for intubation. Vitals are stable so my concern for systemic infection/sepsis is low and there is no need for laboratory studies. Also patient does not have findings consistent with ANUG or Cesar's angina so there is no need for further intervention. As the abscess is small in size I do not feel that incision and drainage would be appropriate. Therefore should be placed on antibiotics to help resolve the infection and is otherwise safe for discharge. History & Record Review Discussion w/independent historian: Patient Discharge Plan Triage Chief Complaint: Dental ED Provider: Rafy Pfeiffer Dx/Rx/DC Orders Clinical Impression: Hard palate abscess, Depression Instructions: Dental Abscess, ED Dental Pain Prescriptions: New clindamycin HCl [Cleocin HCl] 300 mg capsule 300 mg PO 4X/DAY 10 Days Qty: 40 0RF MAGIC MOUTH WASH (BMX) 180 mL suspension 5 ml PO 4X/DAY PRN (Reason: pain) Qty: 180 0RF Rx Instructions: diphenhydramine 12.5 mg/5 mL oral liquid 60 mL; aluminum-mag hydroxide-simethicone 400 mg-400 mg-40 mg/5 mL oral susp 60 mL; Lidocaine Viscous 2 % mucosal solution 60 mL; Per 180 mL No Action loratadine 10 mg tablet 10 mg PO DAILY Nurtec ODT 75 mg tablet,disintegrating 75 mg PO ONCE PRN Rx Instructions: as a single dose mirabegron 50 mg tablet extended release 24 hr 50 mg PO QDAY Ajovy Autoinjector 225 mg/1.5 mL auto-injector 225 mg subcut QMONTH lansoprazole 30 mg capsule,delayed release(DR/EC) 30 mg PO QDAY simvastatin 20 mg tablet 20 mg PO QDAY albuterol sulfate 1 INHALER inhaler 1 - 2 puff inhalation Q4H PRN PRN (Reason: Sob &/Or Wheezing) ondansetron 4 MG tablet 8 mg PO Q12H PRN PRN (Reason: Nausea) acetaminophen 500 MG tablet 500 mg PO PRN PRN (Reason: Pain Or Fever) gabapentin 800 MG tablet 800 mg PO 4X/DAY Primary Care Provider: Marta Dobbins NP Referrals: Marta Dobbins NP, [employer] SERV[employer] ADVISOR-[employer] [Primary Care Provider] - Activity Restrictions/Additional Instructions: Please take the prescribed medication as directed to control pain and resolve your infection. It will typically take 2 to 3 days for this to show improvement. Return to the ER should you have any further concerns Print Language: Upper Sorbian Disposition Disposition: Home, Self Care Discharge Date/Time: 07/21/24 23:51
[2024-07-21] MEDS: Clindamycin HCl 150 MG Capsule 300 MG PO (23:48)
[2024-07-21 23:49] VITALS: BP 114/73; PULSE 89; RESP 14; TEMP 36.6; O2SAT 99
[2024-07-21] MEDS: Lidocaine 2% Viscous15 ML UDC 10 ML PO (23:49)
--- OUTSIDE RECORDS SUMMARY | 2024-07-21 23:53 | XMS RPT_ITS | CCD ---
Author Organization [facility] Care Team Providers Care Service Delivery Consultant Name Role Phone ANIL HOSKINS JR. Unavailable Unavailable ANIL HOSKINS JR. Unavailable Unavailable GURJIT OTOOLE Unavailable Unavailable PROVIDER, UNKNOWN Unavailable Unavailable Anthony Otooleistin Unavailable Unavailable Luis Eduardo Ng Unavailable Unavailable TRILL GURJIT BABB Primary Care Physician Cristobal Otoole Primary Care Provider [phone] Cristobal Otoole Primary Care Provider CRISTOBAL OTOOLE Primary Care Unavailable MACIEL MCGHEE Referring Unavailable MICHAEL MCKEON Referring Unavailable TRIANTHONY AWADCRISTOBAL Chris Primary Care Unavailable SABAS REYES Admitting Unavailable SABAS REYES Attending Unavailable TRIANTHONY AWADCRISTOBAL Chris Primary Care Unavailable Trill LOAN COUNSELOR-C, Cristobal Primary Care Provider Tridelmi LOAN COUNSELOR-C, Cristobal Referring Provider Brit Ramírez Attending Provider [phone] Jatinder Cyr MD Attending Provider Brit Ramírez Referring Provider [phone] Tridelmi LOAN COUNSELOR-C, Cristobal Primary Care Provider Brit Ramírez Attending Provider [phone] Brit Ramírez Referring Provider [phone] Tridelmi LOAN COUNSELOR-C, Cristobal Referring Provider Dr. Jatinder Cyr MD Attending Provider FRANCINE MEDEIROS Attending Provider Unavailable FRANCINE MEDEIROS Referring Provider Unavailable Xiang LOAN COUNSELORCristobal Primary Care Unavailable Provider, Ed Physician Attending Unavailab le Trill LOAN COUNSELOR, Cristobal Referring Unavailable Trill LOAN COUNSELOR, Cristobal Primary Care Unavailable BraulioBrit Attending Unavailable BraulioBrit Attending Unavailable Trill LOAN COUNSELOR, Cristobal Primary Care Unavailable Trill LOAN COUNSELOR, Cristobal Referring Unavailable GerMarian mazal Attending Unavailable Trill LOAN COUNSELOR, Cristobal Primary Care Unavailable BraulioPrimitivoyn Attending Unavailable Trill LOAN COUNSELOR, Cristobal Primary Care Unavailable Trill LOAN COUNSELOR, Cristobal Referring Unavailable GerAamirNottingham Attending Unavailable Trill LOAN COUNSELOR, Cristobal Primary Care Unavailable Braulio, Brit Referring Unavailable Trill LOAN COUNSELOR, Cristobal Primary Care Unavailable BraulioTimBrit Attending Unavailable DAIANA DIANA Attending Unavailable ADALGISADAIANA Referring Unavailable Trill LOAN COUNSELOR, Cristobal Primary Care Unavailable Elmer Nelson Referring Unavailable Trill LOAN COUNSELOR, Cristobal Primary Care Unavailable Elmer Nelson Attending Unavailable TRILL, CRISTOBAL C Primary Care Unavailable TRILL, CRISTOBAL C Referring Unavailable SNOW QUICK Attending Unavailable TRILL, CRISTOBAL C Primary Care Unavailable SNOW QUICK Referring Unavailable EDWIN CHEUNG Attending Unavailable TRILL, CRISTOBAL C Primary Care Unavailable SELF Referring Unavailable YENNY OSMAN Attending Unavailable TRILL, CRISTOBAL C Primary Care Unavailable PAWEL, DEBBIE J Referring Unavailable TRILL, CRISTOBAL C Primary Care Unavailable QUEENIE SPARKS Attending Unavailable TRILL, CRISTOBAL C Primary Care Unavailable SELF Referring Unavailable PAWELINGETY J Attending Unavailable TRILL, CRISTOBAL C Primary Care Unavailable SANDEEP REYES Attending Unavailable TRILL, CRISTOBAL C Primary Care Unavailable DEBORAH TEIXEIRA Attending Unavailable TRILL, CRISTOBAL C Primary Care Unavailable YENNY OSMAN Referring Unavailable YENNY OSMAN Attending Unavailable TRILL, CRISTOBAL C Primary Care Unavailable PAWEL, DEBBIE J Referring Unavailable ELENA NAYLOR Attending Unavailab le TRILL, CRISTOBAL C Primary Care Unavailable PAWEL, DEBBIE J Referring Unavailable TRILL, CRISTOBAL C Primary Care Unavailable PAWEL, DEBBIE J Referring Unavailable TRILL, CRISTOBAL C Primary Care Unavailable TRILL, CRISTOBAL C Primary Care Unavailable TRILL, CRISTOBAL C Primary Care Unavailable PAULINO RAE Attending Unavailable TRILL, CRISTOBAL C Primary Care Unavailable TRILL, CRISTOBAL C Primary Care Unavailable PAWEL, DEBBIE J Referring Unavailable TRILL, CRISTOBAL C Primary Care Unavailable TRILL, CRISTOBAL C Primary Care Unavailable PAWEL, DEBBIE J Referring Unavailable TRILL, CRISTOBAL C Primary Care Unavailable QUEENIE SPARKS Attending Unavailable TRILL, CRISTOBAL C Primary Care Unavailable PAWEL, DEBBIE J Referring Unavailable TRILL, CRISTOBAL C Primary Care Unavailable YENNY OSMAN Referring Unavailable MARISOL JIMENEZ Attending Unavailable BANG MANDUJANO Attending Unavailable TRILL, CRISTOBAL C Primary Care Unavailable TRILL, CRISTOBAL C Primary Care Unavailable TRILL, CRISTOBAL C Primary Care Unavailable GLO DALAL Referring Unavailable TRILL, CRISTOBAL C Primary Care Unavailable PAWEL, DEBIBE J Referring Unavailable TRILL, CRISTOBAL C Primary Care Unavailable PAWEL, DEBBIE J Referring Unavailable TRILL, CRISTOBAL C Primary Care Unavailable PAWEL, DEBBIE J Referring Unavailable TRILL, CRISTOBAL C Primary Care Unavailable NEGRO MARTI Attending Unavailable TRILL, CRISTOBAL C Primary Care Unavailable SNOW QUICK Attending Unavailable TRILL, CRISTOBAL C Primary Care Unavailable TRILL, CRISTOBAL C Primary Care Unavailable TRILL, CRISTOBAL C Primary Care Unavailable MARISOL JIMENEZ Attending Unavailable ARJUN DANIELS Attending Unavailable TRILL, CRISTOBAL C Primary Care Unavailable TRILL, CRISTOBAL C Primary Care Unavailable MICHAEL MCKEON Attending Unavailable TRILL, CRISTOBAL C Primary Care Unavailable PAWEL, DEBBIE J Referring Unavailable PAULINO RAE Attending Unavailable TRILL, CRISTOBAL C Attending Unavailable TRILL, CRISTOBAL C Primary Care Unavailable TRILL, CRISTOBAL C Referring Unavailable TRILL, CRISTOBAL C Primary Care Unavailable ISHAAN CEJA Attending Unavailable TRILL, CRISTOBAL C Primary Care Unavailable TRILL, CRISTOBAL C Referring Unavailable TRILL, CRISTOBAL C Attending Unavailable TRILL, CRISTOBAL C Primary Care Unavailable TRILL, CRISTOBAL C Referring Unavailable TRILL, CRISTOBAL C Primary Care Unavailable TRILL, CRISTOBAL C Referring Unavailable TRILL, CRISTOBAL C Primary Care Unavailable TRILL, CRISTOBAL Primary Care Unavailable TRENT ALAS Attending Unavailable MONIQUE PALMA Referring Unavailable MONIQUE PALMA Attending Unavailable TRILL, CRISTOBAL Primary Care Unavailable TRENT ALAS Admitting Unavailable TRENT ALAS Attending Unavailable TRILL, CRISTOBAL Primary Care Unavailable TRILL, CRISTOBAL Attending Unavailable TRILL, CRISTOBAL Referring Unavailable TRILL, CRISTOBAL Primary Care Unavailable TRILL, CRISTOBAL Primary Care Unavailable TRILL, CRISTOBAL Attending Unavailable TRILL, CRISTOBAL Referring Unavailable TRILL, CRISTOBAL Primary Care Unavailable TRILL, CRISTOBAL Primary Care Unavailable TRILL, CRISTOBAL Attending Unavailable TRILL, CRISTOBAL Referring Unavailable KATBINTA MERINO Attending Unavailable TRILL, CRISTOBAL Primary Care Unavailable WALDEMAR, FRANCINE Attending Unavailable TRILL, CRISTOBAL Primary Care Unavailable WALDEMAR, FRANCINE Attending Unavailable WALDEMAR, FRANCINE Referring Unavailable TRILL, CRISTOBAL Primary Care Unavailable WALDEMAR, FRANCINE Attending Unavailable WALDEMAR, FRANCINE Referring Unavailable TRILL, CRISTOBAL Primary Care Unavailable CHOKAN, SABAS Referring Unavailable CHOKAN, SABAS Attending Unavailable TRILL, CRISTOBAL Primary Care Unavailable WALDEMAR, FRANCINE Referring Unavailable WALDEMAR, FRANCINE Attending Unavailable TRILL, CRISTOBAL Primary Care Unavailable WALDEMAR, FRANCINE Referring Unavailable WALDEMAR, FRANCINE Attending Unavailable TRILL, CRISTOBAL Primary Care Unavailable TRILL, CRISTOBAL Primary Care Unavailable MARLY PALMAIN Referring Unavailable TRILL, CRISTOBAL Referring Unavailable TRILL, CRISTOBAL Primary Care Unavailable TRILL, CRISTOBAL Attending Unavailable TRENT ALAS Attending Unavailable TRILL, CRISTOBAL Primary Care Unavailable TRILL, CRISTOBAL Primary Care Unavailable TRILL, CRISTOBAL Attending Unavailable TRILL, CRISTOBAL Referring Unavailable TRILL, CRISTOBAL Referring Unavailable TRILL, CRISTOBAL Primary Care Unavailable TRILL, CRISTOBAL Attending Unavailable CHOKAN, SABAS Referring Unavailable CHOKAN, SABAS Attending Unavailable TRILL, CRISTOBAL Primary Care Unavailable CHOKAN, SABAS Referring Unavailable CHOKAN, SBAAS Attending Unavailable TRILL, CRISTOBAL Primary Care Unavailable TRILL, CRISTOBAL Attending Unavailable TRILL, CRISTOBAL Primary Care Unavailable TRILL, CRISTOBAL Referring Unavailable CHOKAN, SABAS Referring Unavailable CHOKAN, SABAS Attending Unavailable TRILL, CRISTOBAL Primary Care Unavailable CHOKAN, SABAS Referring Unavailable CHOKAN, SABAS Attending Unavailable TRILL, CRISTOBAL Primary Care Unavailable WALDEMAR, FRANCINE Attending Unavailable TRILL, CRISTOBAL Primary Care Unavailable TRILL, CRISTOBAL Referring Unavailable TRILL, CRISTOBAL Primary Care Unavailable TRILL, CRISTOBAL Primary Care Unavailable TRILL, CRISTOBAL Referring Unavailable CHOKAN, SABAS Referring Unavailable TRILL, CRISTOBAL Primary Care Unavailable CHOKAN, SABAS Referring Unavailable TRILL, CRISTOBAL Primary Care Unavailable CHOKAN, SABAS Referring Unavailable TRILL, CRISTOBAL Primary Care Unavailable TRILL, CRISTOBAL Primary Care Unavailable CHOKAN, SABAS Referring Unavailable CHOKAN, SABAS Referring Unavailable TRILL, CRISTOBAL Primary Care Unavailable CHOKAN, SABAS Referring Unavailable TRILL, CRISTOBAL Primary Care Unavailable TRILL, CRISTOBAL Primary Care Unavailable TRENT ALAS Attending Unavailable WALDEMARFRANCINE Attending Unavailable TRILL, CRISTOBAL Primary Care Unavailable WALDEMAR, FRANCINE Attending Unavailable TRILL, CRISTOBAL Primary Care Unavailable WALDEMAR, FRANCINE Attending Unavailable TRILL, CRISTOBAL Primary Care Unavailable WALDEMAR, FRANCINE Referring Unavailable TRILL, CRISTOBAL Primary Care Unavailable WALDEMAR, FRANCINE Attending Unavailable TRILL, CRISTOBAL Primary Care Unavailable TRILL, CRISTOBAL Primary Care Unavailable CHOKAN, SABAS Referring Unavailable CHOKAN, SABAS Attending Unavailable CHOKAN, SABAS Referring Unavailable CHOKAN, SABAS Attending Unavailable TRILL, CRISTOBAL Primary Care Unavailable CHOKAN, SABAS Referring Unavailable CHOKAN, SABAS Attending Unavailable TRILL, CRISTOBAL Primary Care Unavailable CHOKAN, SABAS Referring Unavailable CHOKAN, SABAS Attending Unavailable TRILL, CRISTOBAL Primary Care Unavailable CHOKAN, SABAS Referring Unavailable CHOKAN, SABAS Attending Unavailable TRILL, CRISTOBAL Primary Care Unavailable TRILL, CRISTOBAL Referring Unavailable TRILL, CRISTOBAL Primary Care Unavailable TRILL, CRISTOBAL Attending Unavailable CHOKAN, SABAS Attending Unavailable CHOKAN, SABAS Referring Unavailable TRILL, CRISTOBAL Primary Care Unavailable TRILL, CRISTOBAL Referring Unavailable TRILL, CRISTOBAL Primary Care Unavailable TRENT ALAS Attending Unavailable TRILL, CRISTOBAL Primary Care Unavailable Allergies Allergy Classification Reported Allergen(s) Allergy Type Date of Onset Reaction(s) Facility (20 sources) Amoxicillin; Translations: [amoxicillin] Drug Allergy 10-25-19 05 Anaphylaxis [facility] (20 sources) Citalopram; Translations: [citalopram] Drug Allergy 10-28-19 05 Anaphylaxis [facility] (20 sources) Codeine; Translations: [codeine] Drug Allergy 06-15-19 18 Other [facility] (20 sources) traMADol; Translations: [tramadol] Drug Allergy 10-25-19 05 Other [facility] Comment on above: HALLUCINATIONS (20 sources) venlafaxine; Translations: [venlafaxine] Drug Allergy 12-13-19 16 [facility] (4 sources) Acetaminophen Drug Allergy 01-15-20 Other [facility] (5 sources) Adhesive Tape; Translations: [adhesive tape] Allergy to substance 01-15-20 Rash [facility] (4 sources) Aspirin Drug Allergy 01-15-20 Other [facility] (5 sources) Chocolate; Translations: [chocolate flavor] Allergy to substance 01-15-20 Anaphylaxis [facility] (9 sources) Citalopram; Translations: [CITALOPRAM HYDROBROMIDE] Drug Allergy 10-28-19 05 Anaphylaxis [facility] (5 sources) Codeine; Translations: [codeine phosphate] Drug Allergy 01-15-20 Other [facility] (4 sources) cow milk allergenic extract Drug Allergy 01-15-20 Nausea [facility] (20 sources) Morphine; Translations: [MORPHINE] Drug Allergy 01-27-20 05 Other, Unknown [facility] Comment on above: UNKNOWN (20 sources) Naproxen; Translations: [NAPROXEN] Drug Allergy 02-16-19 07 Anaphylaxis [facility] (8 sources) tomato allergenic extract; Translations: [TOMATO] Drug Allergy 12-22-19 21 Rash [facility] (9 sources) venlafaxine; Translations: [VENLAFAXINE HCL] Drug Allergy 10-28-19 05 Anaphylaxis [facility] (20 sources) Chocolate; Translations: [CHOCOLATE] Allergy to substance 10-28-19 05 Anaphylaxis [facility] (20 sources) Cow milk Propensity to adverse reactions 11-15-19 19 Nausea And Vomiting [facility] (20 sources) Salicylic Acid; Translations: [SALICYLATES] Drug Allergy 10-28-19 05 Other [facility] (20 sources) tomato allergenic extract Drug Allergy 11-15-19 19 Rash [facility] (20 sources) Wound Dressing Adhesive Drug Allergy 12-04-19 19 Rash [facility] (4 sources) Penicillin; Translations: [PENICILLIN G] Drug Allergy 09-09-19 [facility] (4 sources) traZODone; Translations: [TRAZODONE] Drug Allergy 08-29-19 [facility] (4 sources) ADHESIVE TAPE-SILICONES; Translations: [ADHESIVE TAPE-SILICONES] Propensity to adverse reactions to drug (disorder) 01-28-20 [facility] (2 sources) Acetaminophen Drug Allergy 11-15-19 Other [facility] (20 sources) Trazodone And Nefazodone Drug Intolerance 08-29-19 [facility] (1 source) Acetaminophen Drug Allergy 04-18-19 [facility] (1 source) Amoxicillin Drug Allergy 04-18-19 [facility] (1 source) Aspirin Drug Allergy 04-18-19 [facility] (1 source) Milk Drug allergy (disorder) 04-18-19 [facility] (1 source) Morphine Drug Allergy 04-18-19 [facility] (1 source) Naproxen Drug Allergy 04-18-19 [facility] (1 source) tomato allergenic extract Drug Allergy 04-18-19 [facility] (1 source) traMADol Drug Allergy 04-18-19 [facility] Medications Current Medications Medication Drug Class(es) Dates Sig (Normalized) Sig (Original) acetaminophen 325 mg / HYDROcodone bitartrate 5 mg oral tablet (6 sources) Opioid Agonist Start: 04-04-2024 End: 04-09-2024 take 1 tablet by mouth every eight hours as needed for pain HYDROcodone-acetami nophen ([place]) 5-325 MG tablet Indications: Closed displaced fracture of distal phalanx of left ring finger with routine healing, subsequent encounter , Postoperative pain Take 1 tablet by mouth every 8 hours as needed for severe pain (7-10) for up to 5 days. 15 tablet 04/04/2024 04/09/2024 Active Start: 04-01-2024 End: 04-03-2024 take 1 tablet by mouth every six hours as needed for pain HYDROcodone-acetaminophen ([place]) 5-325 MG tablet Indications: Postoperative pain Take 1 tablet by mouth every 6 hours as needed for severe pain (7-10) for up to 2 days. 8 tablet 04/01/2024 04/03/2024 acetaminophen 325 mg / oxyCODONE hydrochloride 5 mg oral tablet (11 sources) Opioid Agonist Start: 05-21-2022 End: 05-23-2022 take 1 tablet by mouth every eight hours as needed for pain oxyCODONE-acetaminophen (Percocet) 5-325 MG tablet Indications: Flank pain Take 1 tablet by mouth every 8 hours as needed for severe pain (7-10) for up to 2 days. 6 tablet 0 05/21/2022 05/23/2022 Active Start: 12-03-2018 End: 12-15-2018 Oxycodone-Acetaminophen 1 TA BLET tablet Discontinued 1 - 2 {tbl} PO EVERY 4 HOURS NEEDED as needed for Pain 04 08December 03, 2018 December 08, 2018 12:00am December 15, 2018 1:09am Start: 12-03-2018 End: 12-15-2018 take 1 tablet by mouth every four hours as needed Oxycodone-Acetaminophen Discontinued 1 - 2 TABLET PO EVERY 4 HOURS NEEDED 04 08December 03, 2018 December 15, 2018 12:09am Start: 09-03-2018 End: 09-14-2018 Oxycodone-Acetaminophen 1 TA BLET tablet Discontinued 1 - 2 {tbl} PO EVERY 4 HOURS NEEDED as needed for Pain 04 08September 03, 2018 September 08, 2018 12:00am September 14, 2018 12:09am Start: 09-03-2018 End: 09-14-2018 take 1 tablet by mouth every four hours as needed Oxycodone-Acetaminophen Discontinued 1 - 2 TABLET PO EVERY 4 HOURS NEEDED 04 08September 03, 2018 September 13, 2018 11:09pm Afluria PF Quadrivalent intramuscular suspension (1 source) Start: 03-28-2017 Afluria PF Alirio drivalent intramuscular suspension ADMINISTERED AT [facility] Start Date: 03/28/17 Status: Ordered [id number] 200 actuat albuterol 0.09 mg/actuat metered dose inhaler (20 sources) beta2-Adrenergic Agonist Start: 09-02-2018 Albuterol Sulfate 1 INHALER inhaler Active 1 - 2 NMA INHALATION EVERY 4 HOURS NEEDED as needed for Sob &/Or Wheezing September 02, 2018 12:00am Start: 09-02-2018 take 1 puff(s) by in halation every four hours as needed Albuterol Sulfate Active 1 - 2 PUFF inhalation EVERY 4 HOURS NEEDED September 01, 2018 11:00pm Start: 03-28-2017 take 2 puff(s) by in halation every four hours as needed for wheezing Ventolin HFA MDI (90 mcg/inh) inhalation aerosol Inhale 2 Puffs as instructed every 4 hours as needed for Wheezing/Shortness of Breath. Start Date: 03/28/17 Status: Ordered take 2 puff(s) by in halation every four hours as needed for wheezing albuterol 108 (90 Base) MCG/ACT inhaler Inhale 2 puffs every 4 hours as needed for wheezing or shortness of breath. Active atorvastatin (20 sources) HMG-CoA Reductase Inhibitor take 1 tablet by mouth once daily atorvastatin (Lipitor) 40 MG tablet Take 40 mg by mouth daily. Active Atorvastatin Guero cium (LIPITOR PO) Take by mouth. Active Atorvastatin Guero cium (LIPITOR PO) Take by mouth. 0 Active onabotulinumtoxina 100 unt injection (20 sources) Acetylcholine Release Inhibitor onabotulinumtoxinA (Botox) 100 units injection Inject into the shoulder, thigh, or buttocks Once. Active cyclobenzaprine hydrochloride 10 mg oral tablet (20 sources) Muscle Relaxant Start : 05-21 End: 05-31 take 1 tablet by mouth once daily cyclobenzaprine (Flexeril) 10 MG tablet Take 1 tablet (10 mg) by mouth Nightly for 10 days. 10 tablet 05/21/2022 Active diclofenac sodium 75 mg delayed release oral tablet (1 source) Nonsteroidal Anti-inflammatory Drug Start : 03-28 take 1 tablet by mouth twice daily at mealtime diclofenac sodium 75 mg oral delayed release tablet TAKE 1 TABLET TWICE DAILY WITH FOOD Start Date: 03/28/17 Status: Ordered famotidine 10 mg oral tablet (20 sources) Histamine-2 Receptor Antagonist famotidine (Pepcid) 10 MG tablet Take by mouth. Active fluticasone propionate 0.05 mg/actuat metered dose nasal spray (1 source) Corticosteroid Start : 03-28 take 2 spray(s) by mouth once daily fluticasone 50 mcg/inh NASAL spray Use 2 Sprays in each nostril once daily. Rinse mouth after use. Start Date: 03/28/17 Status: Ordered 1.5 ml fremanezumab-vfrm 150 mg/ml auto-injector (20 sources) Start : 03-07 inject 1.5 mL by subcutaneous injection every month Ajovy 225 MG/1.5ML auto-injector Inject 1.5 mL subcutaneously once every month. Do not shake. 03/07/2024 Active Start: 02-22-2024 Fremanezumab-V frm (Ajovy Autoinjector) 225 mg/1.5 mL auto-injector Active 225 mg SC EVERY MONTH February 22, 2024 1:00am gabapentin 800 mg oral tablet (20 sources) Anti-epileptic Agent Start: 12-02-2018 take 1 tablet by mouth four times daily Gabapentin 800 MG tablet Active 800 mg PO 4 TIMES DAILY December 02, 2018 12:00am Start: 03-28-2017 take 1 tablet by vincent th three times daily gabapentin 800 mg oral tablet TAKE 1 TABLET BY MOUTH THREE TIMES DAILY Start Date: 03/28/17 Status: Ordered GABAPENTIN PO Ta ke by mouth 4 times daily. Active GABAPENTIN PO Ta ke by mouth. Active GABAPENTIN PO Ta ke by mouth. 0 Active indomethacin 25 mg oral capsule (1 source) Nonsteroidal Anti-inflammatory Drug Start: 03-28-2017 take 1 capsule by mouth once daily indomethacin 25 mg oral capsule TAKE 1 CAPSULE EVERY DAY Start Date: 03/28/17 Status: Ordered lansoprazole 30 mg delayed release oral capsule (20 sources) Proton Pump Inhibitor Start: 02-22-2024 take 1 capsule by mouth once daily Lansoprazole 30 mg capsule,delayed release(DR/EC) Active 30 mg PO daily February 22, 2024 1:00am Start: 02-02-2016 End: 08-27-2018 take 2 capsules by mouth at bedtime Lansoprazole 30 MG capsule Discontinued 60 mg PO AT BEDTIME February 02, 2016 1:00am August 27, 2018 9:30am Start: 02-02-2016 End: 08-27-2018 take 60 mg by mouth at bedtime Lansoprazole Discontinu ed 60 MG PO AT BEDTIME February 02, 2016 12:00am August 27, 2018 8:30am Start: 05-02-2015 End: 08-27-2018 Lansoprazole 30 MG capsule Discontinued 15 mg PO DAILY May 02, 2015 12:00am August 27, 2018 9:30am Start: 05-02-2015 End: 08-27-2018 take 15 mg by mouth once daily Lansoprazole Discontinu ed 15 MG PO DAILY May 01, 2015 11:00pm August 27, 2018 8:30am take 2 capsules by m outh twice daily lansoprazole (Prevacid) [address] capsule Take 30 mg by mouth 2 times daily. Do not crush or chew. Active lansoprazole (Pr evacid) [address] capsule Take by mouth every morning (before breakfast). Do not crush or chew. Active loratadine 10 mg oral tablet (20 sources) Start: 08-27-2018 take 1 tablet by mouth once daily Loratadine 10 mg tablet Active 10 mg PO DAILY August 27, 2018 12:00am Loratadine (CLAR ITIN PO) Take by mouth. Active Loratadine (CLAR ITIN PO) Take by mouth. 0 Active methylPREDNISolone 4 mg oral tablet (20 sources) Corticosteroid take 1 tablet by mouth once daily methylPREDNISolone (Medrol) 4 MG tablet Take 4 mg by mouth daily. Active 24 hr mirabegron 50 mg extended release oral tablet (20 sources) beta3-Adrenergic Agonist Start: 2024 take 1 tablet by mouth once daily Myrbetriq 50 MG 24 hr tablet Take 50 mg by mouth daily. 03/26/2024 Active predniSONE (1 source) Start: 2017 prednisone 10mg tab (TAPER) TAKE 5 TABLETS in the morning day1, 4 TABLETS day 2, 3 TABLETS day 3, 2 TABLETS day 4, then 1 TABLET day 5 Start Date: 03/28/17 Status: Ordered rimegepant 75 mg disintegrating oral tablet (20 sources) Start: 2024 take 1 tablet by mouth once as needed Rimegepant (Nurtec Odt) 75 mg tablet,disintegrating Active 75 mg PO ONCE as needed February 22, 2024 1:00am as a single dose Rimegepant Sulfa te (Nurtec) 75 MG tablet dispersible Take by mouth as needed. Active rizatriptan 10 mg oral tablet (1 source) Serotonin-1b and Serotonin-1d Receptor Agonist Start: 03-28-2017 take 1 tablet by mouth every two hours as needed rizatriptan 10 mg oral tablet TAKE 1 TABLET BY MOUTH EVERY 2 HOURS NEEDED; no more than 2 in a 24 hour period Start Date: 03/28/17 Status: Ordered simvastatin 20 mg oral tablet (20 sources) HMG-CoA Reductase Inhibitor Start: 03-26-2024 take 1 tablet by mouth twice daily simvastatin (Zocor) 20 MG tablet Take 20 mg by mouth 2 times daily. 03/26/2024 Active Start: 02-22-2024 take 1 tablet by vincent once daily Simvastatin 20 mg tablet Active 20 mg PO daily February 22, 2024 1:00am SUMAtriptan 100 mg oral tablet (1 source) Serotonin-1b and Serotonin-1d Receptor Agonist Start: 03-28-2017 take 1 tablet by mouth every two hours as needed for headache SUMAtriptan 100 mg oral tablet Take 1 tablet by mouth as needed for Migraine Headache (see administration instructions). May repeat dose in 2 hours if needed. Start Date: 03/28/17 Status: Ordered 24 hr divalproex sodium 500 mg extended release oral tablet (20 sources) Mood Stabilizer, Anti-epileptic Agent Start: 07-12-2023 divalproex (Depakote ER) 500 MG 24 hr tablet With infusion for migraine 07/12/2023 Active Completed/Discontinued Medications Medication Drug Class(es) Dates Sig (Normalized) Sig (Original) acetaminophen 500 mg oral tablet (20 sources) Start: 04-03-2024 End: 04-04-2024 1,000 mg, Oral, Once, On Sun04/03/24 at 2340, For 1 dose, Maximum dose of acetaminophen is 4000 mg from all sources in 24 hours. Start: 04-01-2024 End: 04-01-2024 1,000 mg, Oral, Once, On Sun04/01/24 at 0745, For 1 dose, Preprocedure, Administer 60 minutes prior to surgery. Start: 12-02-2018 Acetaminophen 500 MG tablet Active 500 mg PO NEEDED as needed for Pain Or Fever December 02, 2018 12:00am take 2 tablets by mo [facility] every eight hours as needed for pain acetaminophen (Tylenol) 500 MG tablet Take 1,000 mg by mouth every 8 hours as needed for mild pain (1-3). Active 24 hr buPROPion hydrochloride 150 mg extended release oral tablet (4 sources) Aminoketone Start: 05-02-2015 End: 08-27-2018 take 1 tablet by mouth once daily Bupropion Hcl 150 MG tablet extended release 24 hr Discontinued 150 mg PO DAILY May 02, 2015 12:00am August 27, 2018 9:30am calcium chloride 0.0014 meq/ml / potassium chloride 0.004 meq/ml / sodium chloride 0.103 meq/ml / sodium lactate 0.028 meq/ml injectable solution (2 sources) Start: 04-01-2024 End: 04-01-2024 take 50 mL intravenously every hour 50 mL/hr, IntraVENous, Continuous, Starting on Sun04/01/24 at 0745, Preprocedure, Upon admission to sameday - please start iv if patient does not have iv access. Use 500ml NS for patients on dialysis. 1 ml diphenhydrAMINE hydrochloride 50 mg/ml cartridge (4 sources) Histamine-1 Receptor Antagonist Start: 04-01-2024 End: 04-01-2024 12.5 mg, IntraVENous, Once PRN, itching, Starting on Sun04/01/24 at 1016, For 1 dose, Recovery (only) Start: 04-28-2022 End: 04-28-2022 diphenhydrAMINE (BENADryl) i njection 25 mg 1 ml galcanezumab-gnlm 120 mg/ml auto-injector (4 sources) Start: 12-23-2020 End: 11-08-2023 Galcanezumab-Gnlm (Emgality Pen) 120 mg/mL pen injector Discontinued 120 mg SC DIRECTED December 23, 2020 1:00am November 08, 2023 9:52pm every two weeks 1 ml HYDROmorphone hydrochloride 1 mg/ml cartridge (12 sources) Opioid Agonist Start: 04-03-2024 End: 04-04-2024 take 0.5 mg by mouth once 0.5 mg, IntraVENous, Once, On Sun04/03/24 at 2120, For 1 dose, If oral and injectable narcotics ordered, use oral first and only use injectable if oral is ineffective or cannot take oral. Do Not give oral and injectable within 1 hour of each other unless specifically ordered. Start: 04-01-2024 End: 04-01-2024 0.5 mg, IntraVENous, Every 5 min PRN, severe pain (7-10), Starting on Sun04/01/24 at 1016, For 4 doses, Recovery (only), For Phase I. If Phase II oral narcotics have been administered in the last 60 minutes, do not administer IV narcotics unless specifically approved by provider. Start: 04-01-2024 End: 04-01-2024 0.25 mg, IntraVENous, Every 5 min PRN, moderate pain (4-6), Starting on Sun04/01/24 at 1016, For 4 doses, Recovery (only), For Phase I. If Phase II oral narcotics have been administered in the last 60 minutes, do not administer IV narcotics unless specifically approved by provider. iopamidol (Isovue-370) 76 % injection 100 mL (1 source) Start: 05-21-2022 End: 05-21-2022 iopamidol (Isovue-370) 76 % injection 100 mL 1 ml ketorolac tromethamine 30 mg/ml cartridge (2 sources) Nonsteroidal Anti-inflammatory Drug, Cyclooxygenase Inhibitor Start: 04-03-2024 End: 04-04-2024 15 mg, IntraVENous, Once, On Gladis 04/03/24 at 2340, For 1 dose labetalol (Normodyne,Trandate) injection 5 mg (2 sources) Start: 04-01-2024 End: 04-01-2024 labetalol (Normodyne,Trandate) injection 5 mg lidocaine 0.04 mg/mg medicated patch (5 sources) Antiarrhythmic, Amide Local Anesthetic Start: 05-21-2022 End: 05-21-2022 Lidocaine 4 % patch 1 patch Start: 05-21-2022 End: 05-31-2022 apply 1 dose transdermal route once daily, then apply 1 dose transdermal route every twelve hours lidocaine (Lidoderm) 5 % patch Apply 1 patch topically daily for 10 days. Remove & discard patch within 12 hours or as directed by . 10 patch 0 05/21/2022 05/31/2022 Active 1 ml LORazepam 2 mg/ml injection (2 sources) Benzodiazepine Start: 04-01-2024 End: 04-01-2024 0.5 mg, IntraVENous, Once PRN, for anxiety or muscle spasm., Starting on Sun04/01/24 at 1016, For 1 dose, Recovery (only), For IV doses dilute dose with 1ml NS. 1 ml meperidine hydrochloride 25 mg/ml cartridge (2 sources) Opioid Agonist Start: 04-01-2024 End: 04-01-2024 12.5 mg, IntraVENous, Every 5 min PRN, shivering, Starting on Tu04/01/24 at 1016, For 2 doses, Recovery (only), May give every 5 minutes to max of 25mg. Notify Anesthesia Provider before administration. 2 ml metoclopramide 5 mg/ml prefilled syringe (6 sources) Dopamine-2 Receptor Antagonist Start: 04-28-2022 End: 04-28-2022 metoclopramide (Reglan) injection 10 mg Start: 01-14-2022 End: 11-08-2023 take 1 tablet by mouth every six hours as needed for nausea and vomiting Metoclopramide Hcl (Reglan) 5 mg tablet Discontinued 5 mg PO EVERY 6 HOURS as needed for nausea and vomiting January 14, 2022 2:29pm November 08, 2023 9:53pm 1 ml morphine sulfate 4 mg/ml injection (4 sources) Opioid Agonist Start: 05-21-2022 End: 05-21-2022 morphine sulfate (PF) injection 4 mg Start: 05-21-2022 End: 05-21-2022 morphine sulfate (PF) inject ion 4 mg Start: 05-21-2022 End: 05-21-2022 morphine sulfate (PF) inject ion 4 mg omeprazole 40 mg delayed release oral capsule (8 sources) Proton Pump Inhibitor Start: 08-27-2018 End: 02-22-2024 take 1 capsule by mouth once daily Omeprazole 40 mg capsule,delayed release(DR/EC) Discontinued 40 mg PO DAILY August 27, 2018 12:00am February 22, 2024 9:26am End: 05-21-2022 OMEPRAZOLE PO Take by mouth. 0 05/21/2022 Discontinued OMEPRAZOLE PO Ta ke by mouth. 0 Active 2 ml ondansetron 2 mg/ml injection (20 sources) Serotonin-3 Receptor Antagonist Start: 04-03-2024 End: 04-03-2024 4 mg, IntraVENous, Once, On Gladis 04/03/24 at 2015, For 1 dose Start: 04-01-2024 End: 04-01-2024 4 mg, IntraVENous, Once PRN, nausea, Starting on Sun04/01/24 at 1016, For 1 dose, Recovery (only), Initial antiemetic therapy. Start: 05-21-2022 End: 05-21-2022 ondansetron (Zofran) injecti on 4 mg Start: 02-21-2022 End: 02-22-2024 take 1 tablet by mouth every eight hours as needed for nausea Ondansetron 4 mg tablet,disintegrating Discontinued 4 mg PO EVERY 8 HOURS NEEDED as needed for Nausea February 21, 2022 1:00am February 22, 2024 9:26am Start: 09-02-2018 take 2 tablets by mo uth every twelve hours as needed for nausea Ondansetron 4 MG tablet Active 8 mg PO EVERY 12 HOURS NEEDED as needed for Nausea September 02, 2018 12:00am Start: 09-02-2018 take 8 mg by mouth e very twelve hours as needed Ondansetron Active 8 MG PO EVERY 12 HOURS NEEDED September 01, 2018 11:00pm ondansetron (Zof ran) 8 MG tablet Take by mouth as needed for nausea or vomiting. Active oxyCODONE hydrochloride 5 mg oral capsule (8 sources) Opioid Agonist Start: 01-14-2022 End: 11-08-2023 take 1 capsule by mouth twice daily as needed for pain Oxycodone 5 mg capsule Discontinued 5 mg PO TWICE A DAY as needed for pain 10 January 14, 2022 November 08, 2023 9:53pm Start: 12-03-2018 End: 12-15-2018 take 2 tablets by mouth every six hours as needed for pain Oxycodone 5 MG tablet Discontinued 10 mg PO EVERY 6 HOURS NEEDED as needed for Pain Score December 03, 2018 December 08, 2018 12:00am December 15, 2018 1:09am Start: 12-03-2018 End: 12-15-2018 take 10 mg by mouth every six hours as needed Oxycodone Discontinued 10 MG PO EVERY 6 HOURS NEEDED 30 07December 03, 2018 December 15, 2018 12:09am pramipexole dihydrochloride 0.5 mg oral tablet (4 sources) Nonergot Dopamine Agonist Start: 08-27-2018 End: 02-22-2024 take 1 tablet by mouth at bedtime Pramipexole 0.5 mg tablet Discontinued 0.5 mg PO AT BEDTIME August 27, 2018 12:00am February 22, 2024 9:26am 50 ml sodium chloride 9 mg/ml injection (10 sources) Start: 04-01-2024 End: 04-01-2024 500 mL, IntraVENous, at 1,000 mL/hr, Administer over 0.5 Hours, PRN, Anti-nausea, Starting on Sun04/01/24 at 1016, Recovery (only), Indications: Anti-nausea Start: 04-01-2024 End: 04-01-2024 take 100 mL intravenously every hour as needed, then take 20 mL intravenously every hour as needed 5-250 mL/hr, IntraVENous, PRN, if patient receiving piggyback infusions and maintenance fluids are not ordered OR KVO fluids to protect IV site / prevent frequent line interruptions / long duration, Starting on Sun04/01/24 at 0741, Preprocedure, For piggyback infusion, administer at same rate as piggyback for a total of 25 mL. Enter 25 mL into dose field and piggyback rate into rate field of order. If piggyback is infusing at a rate less than 100 mL/hr, enter 25 mL into dose field and 100 mL/hr into rate field of order. For KVO fluids, enter rate of 20 mL/hr or less into rate field of order. Start: 04-01-2024 End: 04-01-2024 5-40 mL, IntraVENous, PRN, l ine care, After every IV line use, Starting on Sun04/01/24 at 0741, Preprocedure, For Line Patency: Peripheral IV = 5 mL; Midline or Central Line = 10 mL/lumen. If following IV push medication, administer flush at same rate as the IV push. Flush volume is determined by type of infusion therapy being given. For non-viscous solutions use: Peripheral IV = 5 mL Midline or Central Line = 10 mL/lumen For viscous solutions (i.e. blood components, parenteral nutrition, contrast media, or after obtaining blood sample) use: Peripheral IV = 10 mL Midline or Central Line = 20 mL/lumen Start: 04-01-2024 End: 04-01-2024 take 5-40 mL intravenously every twelve hours 5-40 mL, IntraVENous, Every 12 hours, First dose on Sun04/01/24 at 0745, Preprocedure, For Line Patency: Peripheral IV = 5 mL; Midline or Central Line = 10 mL/lumen. If following IV push medication, administer flush at same rate as the IV push. Flush volume is determined by type of infusion therapy being given. For non-viscous solutions use: Peripheral IV = 5 mL Midline or Central Line = 10 mL/lumen For viscous solutions (i.e. blood components, parenteral nutrition, contrast media, or after obtaining blood sample) use: Peripheral IV = 10 mL Midline or Central Line = 20 mL/lumen Start: 04-28-2022 End: 04-28-2022 sodium chloride 0.9 % bolus 1,000 mL vitamin b6 50 mg oral tablet (1 source) Start: 03-28-2017 End: 04-07-2017 pyridoxine 50 mg oral tablet Dose : 50 mg = 1 tab(s), Oral, Daily, # 10 tab(s), 0 Refill(s) Start Date: 03/28/17 Stop Date: 04/07/17 Status: Ordered Problems Active Problems Problem Classification Problem Date Documented Da te Episodic/Chronic Cataract (20 sources) Bilateral senile combined form cataracts of eyes; Translations: [Combined forms of age-related cataract, bilateral] Onset: 0 11-19-2021 Chronic Disorders of lipid metabolism (1 source) Hyperlipidemia, unspecified; Translations: [Hyperlipidemia, unspecified hyperlipidemia type] Onset: 9 Chronic Diverticulosis and diverticulitis (1 source) Diverticulitis 03-28-2017 Chronic Headache; including migraine (6 sources) Migraine with aura; Translations: [Migraine with aura, not intractable, without status migrainosus] Onset: 8 Chronic Headache; including migraine (1 source) Headache; Translations: [Headache, unspecified] Onset: 2 Episodic Immunizations and screening for infectious disease (2 sources) Requires diphtheria, tetanus and pertussis vaccination; Translations: [Encounter for immunization] 11-16-2023 Episodic Intracranial injury (7 sources) Concussion injury of body structure; Translations: [Concussion] 12-31-2020 Episodic Open wounds of extremities (5 sources) Laceration of finger; Translations: [Laceration without foreign body of unspecified finger without damage to nail, initial encounter] Onset: 5 10-22-2020 Episodic Other connective tissue disease (1 source) Spontaneous rupture of extensor tendons; Translations: [Spontaneous rupture of extensor tendons, left lower leg] 07-05-2022 Episodic Other connective tissue disease (1 source) Acquired short left Achilles tendon; Translations: [Short Achilles tendon (acquired), left ankle] 07-05-2022 Episodic Other gastrointestinal disorders (3 sources) History of gastroesophageal reflux disease; Translations: [Personal history of other diseases of the digestive system] 02-21-2022 Episodic Other injuries and conditions due to external causes (4 sources) Closed injury of head; Translations: [Unspecified injury of head, initial encounter] 12-31-2020 Episodic Other injuries and conditions due to external causes (2 sources) Splinter in skin; Translations: [Other injury of unspecified body region, initial encounter] 11-16-2023 Episodic Other nervous system disorders (3 sources) Other chronic pain; Translations: [Chronic pain of both knees] Onset: 8 Chronic Other nervous system disorders (4 sources) Neuropathy 01-07-2024 Chronic Other nervous system disorders (6 sources) Postoperative pain ; Translations: [Other acute postprocedural pain] 04-01-2024 Episodic Other non-traumatic joint disorders (1 source) Pain in right knee; Translations: [Chronic pain of both knees] Onset: 3 Episodic Other non-traumatic joint disorders (1 source) Pain in left knee; Translations: [Chronic pain of both knees] Onset: 3 Episodic Other upper respiratory infections (1 source) Acute upper respiratory infection, unspecified; Translations: [Acute upper respiratory infection] Onset: 5 Episodic Poisoning by nonmedicinal substances (4 sources) Wound finding; Translations: [Toxic effect of venom of bees, accidental (unintentional), initial encounter] 10-18-2019 Episodic Skin and subcutaneous tissue infections (1 source) Local infection of the skin and subcutaneous tissue, unspecified; Translations: [Soft tissue infection] Onset: 5 Episodic Sprains and strains (1 source) Strain of other muscles, fascia and tendons at shoulder and upper arm level, left arm, initial encounter; Translations: [Trapezius strain, left, initial encounter] Onset: 5 Episodic Superficial injury; contusion (2 sources) Superficial foreign body of left index finger, initial encounter; Translations: [Injury of conjunctiva and corneal abrasion without foreign body, right eye, initial encounter] Onset: 4 Episodic Unclassified (1 source) Obstructive sleep apnea syndrome Onset: 7 Chronic Unclassified (1 source) Unknown / UNK(Unknown) Onset: 7 Unclassified (1 source) Pain in left shoulder 01-10-2024 Unclassified (1 source) M54.12 - Radiculopathy, cervical region Unclassified (1 source) Low back pain, unspecified; Translations: [Low back pain, unspecified] Onset: 5 Unclassified (2 sources) Post-op; Translations: [Post-op] Onset: 5 Unclassified (2 sources) Abdominal Pains Onset: 4 Viral infection (8 sources) Acute viral disease; Translations: [Viral infection, unspecified] 01-22-2022 Episodic Past or Other Problems Problem Classification Problem Date Documented Da te Episodic/Chronic Abdominal pain (5 sources) Flank pain; Translations: [Unspecified abdominal pain] Onset: 10-27-2021 Episodic Blindness and vision defects (20 sources) Subjective visual disturbance; Translations: [Unspecified subjective visual disturbances] Onset: 04-08-2019 11-19-2021 Episodic Conditions associated with dizziness or vertigo (2 sources) Dizziness and giddiness; Translations: [Dizziness and giddiness] Onset: 07-13-2021 Episodic Diabetes mellitus without complication (1 source) Prediabetes; Translations: [Prediabetes] Onset: 09-18-2022 Episodic Fracture of upper limb (20 sources) Closed fracture of distal phalanx of ring finger of left hand; Translations: [Nondisplaced fracture of distal phalanx of left ring finger, initial encounter for closed fracture] Onset: 02-28-2024 02-22-2024 Episodic Genitourinary symptoms and ill-defined conditions (1 source) Retention of urine, unspecified; Translations: [Incomplete bladder emptying] Onset: 07-30-2023 Episodic Nausea and vomiting (6 sources) Vomiting; Translations: [Vomiting, unspecified] Onset: 10-27-2021 01-22-2022 Episodic Other connective tissue disease (20 sources) Plantar fascial fibromatosis; Translations: [Plantar fascial fibromatosis] Onset: 11-14-2023 07-05-2022 Episodic Other connective tissue disease (20 sources) Pain in left foot; Translations: [Pain in left foot] Onset: 01-07-2024 08-22-2023 Episodic Other connective tissue disease (20 sources) Pain in right foot; Translations: [Pain in right foot] Onset: 01-07-2024 08-22-2023 Episodic Other connective tissue disease (16 sources) Neuropathy; Translations: [Neuralgia and neuritis, unspecified] Onset: 01-07-2024 10-31-2023 Episodic Other connective tissue disease (1 source) Neuralgia and neuritis, unspecified; Translations: [Neuralgia and neuritis, unspecified] Onset: 01-07-2024 Episodic Other connective tissue disease (1 source) Pain in left foot; Translations: [Pain in left foot] Onset: 01-07-2024 Episodic Other connective tissue disease (1 source) Pain in right foot; Translations: [Pain in right foot] Onset: 01-07-2024 Episodic Other connective tissue disease (1 source) Plantar fascial fibromatosis; Translations: [Plantar fascial fibromatosis] Onset: 11-14-2023 Episodic Other eye disorders (20 sources) Pain around eye; Translations: [Other specified disorders of eyelid] Onset: 04-08-2019 11-19-2021 Episodic Other gastrointestinal disorders (1 source) Dysphagia, unspecified; Translations: [Dysphagia, unspecified type] Onset: 08-28-2023 Episodic Other nervous system disorders (3 sources) Other acute postprocedural pain; Translations: [Other acute postoperative pain] Onset: 05-18-2023 Episodic Other nervous system disorders (10 sources) Anesthesia of skin; Translations: [Anesthesia of skin] Onset: 02-04-2024 01-10-2024 Episodic Other nervous system disorders (2 sources) Anesthesia of skin; Translations: [Left arm numbness] Onset: 12-28-2023 Episodic Other nervous system disorders (1 source) Tremor, unspecified; Translations: [Tremor of left hand] Onset: 12-28-2023 Episodic Other non-traumatic joint disorders (8 sources) Pain in left shoulder; Translations: [Pain in joint, shoulder region] Onset: 12-28-2023 01-10-2024 Episodic Residual codes; unclassified (20 sources) Auditory hallucinations; Translations: [Auditory hallucinations] Onset: 12-10-2017 11-19-2021 Episodic Residual codes; unclassified (1 source) Procedure and treatment not carried out due to patient leaving prior to being seen by health care provider; Translations: [Procedure and treatment not carried out due to patient leaving prior to being seen by health care provider] Onset: 10-18-2023 Episodic Residual codes; unclassified (2 sources) Other specified postprocedural states; Translations: [Other specified postprocedural states] Onset: 04-03-2024 Episodic Spondylosis; intervertebral disc disorders; other back problems (20 sources) Backache; Translations: [Dorsalgia, unspecified] Onset: 03-23-2017 01-22-2022 Episodic Unclassified (4 sources) history excision wart third finger right hand Onset: 08-05-2018 09-03-2021 Unclassified (4 sources) s/p left leg surgery 09-03-2021 Unclassified (3 sources) Closed fracture of distal phalanx of ring finger of left hand 02-22-2024 Results Test Name Value Interpretation Reference Range Facility Office Visiton 07-18-2024 Follow-up visit [id number] Brittney Alcocer 1975 F Date Provider Department Center 07/18/2024 [id number] MEDEIROS [facility] OR None No family history on file Level of Service:[id number] [place] OFFICE/OUTPATIENT ESTABLISHED LOW MDM 20 MIN Reason for Visit and Comments: Follow-up [200832] - DOS 04/01/24/ Closed reduction percutaneous pinning left ring finger distal phalanx fracture Normal [facility] XR FINGERS 2+ VIEWS LEFTon 0 07-18-2024 XR FINGERS 2+ VIEWS LEFT LEFT Ring Finger 2V were taken today in the office and reviewed by myself separate from radiology demonstrate no acute osseous or soft tissue abnormalities. Patient's ring finger distal phalanx fracture that was demonstrated on previous imaging is well-healed, there is no evidence of the fracture line on today's imaging. Ulnar positive variance appreciated. Normal [facility] XR Finger - left 2 Viewson 0 07-18-2024 LEFT Ring Finger 2V were taken today in the office and reviewed by myself separate from radiology demonstrate no acute osseous or soft tissue abnormalities. Patient's ring finger distal phalanx fracture that was demonstrated on previous imaging is well-healed, there is no evidence of the fracture line on today's imaging. Ulnar positive variance appreciated. [facility] Radiology Study observation (narrative) Leanna sherman Duong 07-16-2024 CNPN Telephone (LIZET) BRITTNEY ALCOCER ([id number]) 1975 F NFR Date Time Provider Department 07/16/24 CRISTOBAL OTOOLE During your visit today, we recorded the following information about you: Ceasar Duncan MA 07/16/2024 11:29 AM Signed [facility] l[facility] on stating [facility]oprazole 30mg. It states BID and they are filling it for once a day. She wants to know if she should be taking it BID and if so next time she will fill it for BID. Please advise. Ceasar Duncan MA [facility] [phone]. LANDRY Chaparro Kristin C, APRN.[facility] 07/16/2024 2:01 PM Signed Patient should be taking 30 mg once a day. Ceasar Rivera MA 07/16/2024 2:43 PM Signed Pharmacist notified. Ceasar Duncan MA Allergies As of Date: 07/16/2024 Noted Allergy Reaction CITALOPRAM HYDROBROMIDE 10/27/2004 10 - Anaphylaxis Comments: TACHYCARDIA MORPHINE 01/26/2005 8 - GI Upset AMOXICILLIN 10/24/2004 8 - GI Upset 14 - Other: See Comments Comments: Makes me worse ASA (SALICYLATES) 10/27/2004 4 - Hives CHOCOLATE 10/27/2004 EFFEXOR (VENLAFAXINE HCL) 10/27/2004 11 - Vomiting NAPROXEN 02/16/2006 5 - Intolerance Comments: Depression PENICILLIN G 09/08/2021 8 - GI Upset TAPE (ADHESIVE TAPE-SILICONES) 01/27/2021 14 - Other: See Comments Comments: Rash TOMATO 12/21/2020 5 - Intolerance Comments: If cooked cant tolerate them TRAMADOL 10/24/2004 8 - GI Upset TRAZODONE 08/28/2017 1 - Mental Status Change Comments: Causes hallucinations VENLAFAXINE 12/13/2015 16 - Unknown Date Reviewed: 07/15/2024 Reviewed by: Lila Sewell MA - Fully Assessed Reason for Visit: Patient Question [1477] Prescriptions as of 07/16/2024 - ofloxacin (OCUFLOX) 0.3 % ophthalmic solution Use 1 drop in the right eye four times daily for 7 days. - sulfamethoxazole-trimet hoprim (BACTRIM DS) 800-160 mg per tablet Take 1 tablet by mouth two times a day for 7 days. - mirabegron (MYRBETRIQ) 50 mg Tb24 Take 1 tablet by mouth every other day. - lansoprazole (PREVACID) 30 mg capsule Take 1 capsule by mouth once daily. - simvastatin (ZOCOR) 40 mg tablet Take 1 tablet by mouth daily at bedtime. At bedtime - loratadine (CLARITIN) 10 mg tablet Take 1 tablet by mouth once daily. - gabapentin (NEURONTIN) 800 mg tablet Take 1 tablet by mouth four times daily for 180 days. - ondansetron orally disintegrating (ZOFRAN ODT) 8 mg disintegrating tablet Take 1 tablet by mouth every 8 hours as needed for nausea/vomiting. - rimegepant (NURTEC ODT) 75 mg disintegrating tablet Take 1 tablet at onset of headache/migraine. Only take 1 tablet as single dose in 24 hour period. - albuterol HFA (PROVENTIL HFA, VENTOLIN HFA) 90 mcg/actuation inhaler Inhale 2 Puffs as instructed every 4 hours as needed for wheezing/shortness of breath. - fremanezumab-vfrm subcutaneus auto-injector 225 mg/1.5 mL ([employer]) Inject 1.5 mL subcutaneously once every month. Do not shake. - MEDICATION, NON-DATABASE Marijuana for migraines Facility-Administered Medications as of 07/16/2024 - onabotulinum toxin type A 200 Units injection (BOTOX) Problem List As Of Date 07/16/2024 Noted Resolved Supervision of other normal [Z34.80] 01/26/2005 01/06/2016 CELLULITIS FINGER,PARONYCHIA/ONYCH IA [L03.019] 12/12/2005 01/06/2016 Viral warts, unspecified [B07.9] 12/12/2005 01/06/2016 VISUAL LOSS, ONE EYE NOS [H54.60] 09/17/2006 Pain in joint, lower leg [M25.569] 09/08/2011 01/06/2016 Pain in joint, pelvic region and thigh [M25.559]09/08/2011 01/06/2016 Carpal tunnel syndrome, left [G56.02] 05/09/2012 Right knee pain [M25.561] 06/30/2014 Diverticulosis of intestine without bleeding [K*11/10/2015 Amenorrhea, unspecified [N91.2] 07/20/2015 Leiomyoma of uterus, unspecified [D25.9] 10/07/2015 Major depressive disorder, single episode, unsp*06/15/2015 Pain in right shoulder [M25.511] 10/12/2015 Unspecified asthma, uncomplicated [J45.909] 06/15/2015 Gastro-esophageal reflux disease without esopha*12/13/2015 Anxiety [F41.9] 12/13/2015 Left ovarian cyst [N83.202] 12/13/2015 History of drug abuse [F19.11] 12/13/2015 History of migraine [Z86.69] 12/13/2015 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] 12/13/2015 Kidney stone [N20.0] 12/13/2015 History of seizure [Z87.898] 12/13/2015 History of renal cell cancer [Z85.528] 01/06/2016 Renal neoplasm [D49.519] 04/27/2016 Occipital neuralgia of right side [M54.81] 08/15/2016 Eustachian tube dysfunction, bilateral [H69.93] 10/11/2016 Lumbar radiculopathy [M54.16] 10/11/2016 Leg weakness, bilateral [R29.898] 10/11/2016 Chronic bilateral low back pain with bilateral *10/11/2016 Chronic right-sided thoracic back pain [M54.6, *10/11/2016 Paresthesia of bilateral legs [R20.2] 10/11/2016 Osteoarthritis of spine with radiculopathy, lum*12/20/2016 Obesity, Class III, B (more content not included)... Normal [facility] OT D/C Summaryon 07-10-2024 OT D/C Summary [facility] Occupational [facility] [address] [place] [address] / REHABILITATION SERVICES DISCHARGE SUMMARY MR#: [id number] Acct: [id number] Name: BRITTNEY ALCOCER Rep #: [id number] : 1975 49 From: Tena Russell OTR/Omar, CHT Referring Dr.: OUT OF TOWN DOCTOR Status: REG R CR Eval Date: Discharge Date: Discharge Summary D/C Summary: It has been my pleasure to treat BRITTNEY ALCOCER under orders from FRANCINE MEDEIROS, for the diagnosis of left RF displaced fx of distal phalanx for a total of 6 visit(s). Please see the following information for a summary of their discharge status. 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 pt has met OT goals and is d/c at this time. Goals Patient Goals: Regain Mobility, Decrease Pain, Improve Fine Motor Skills, Use Hand/Wrist/Arm Normally Again and Be More Independent in ADLS Goal:ROM equal to unaffected hand: Yes Goal Progress: Goal Met Goal:Bank Vault Attendant/Pinch strength at least 75% of unaffected hand: Yes Goal:No pain with affected hand use: Yes Goal Progress: Goal Met Goal:Full use of affected hand in daily activities including work: Yes Goal Progress: Goal Met Plan Plan: d/c with pt to continue use of left hand as tolerated D/C Information Discharge Comments: pt demo great gains in ROM and strength as well as a decreased sensitivity to utilize her left hand with ADls and IADLs. Pt is initiating a health and wellness program to cont. with increased healthy lifestyle. pt also has returned to work without difficulty. pt agrees to d.c . d/c sentence: If there are questions or concerns regarding this patient's occupational therapy, please fell free to call me at [phone]. Thank you for the referral of this patient. Sincerely, Tena Russell, OTR/Omar, T 07/10/24 0749 CC: GILA Otoole; FRANCINE MEDEIROS MK Signed Normal [facility] 07-09-2024 [facility] Office Visit (UCTR ) BRITTNEY ALCOCER ([id number]) 1975 F NFR Date Time Provider Department 07/09/24 5:00 PM ARJUN DANIELS [facility] During your visit today, we recorded the following information about you: Temperature Pulse Respiration Blood pressure 98.2 degrees 92/minute 16/minute 110/72 Weight 87.4 kg Arjun Daniels APRN.GASOLINE LOCOMOTIVE CRANE OPERATOR 07/09/2024 5:49 PM Signed [facility] Subjective Brittney Alcocer is a 49 year old female. Patient presents with: Eye Problem: right eye redness and irritation x 2 days, right thumb swelling and pain x 3 days HPI Patient is a 49 year old female with a chronic history of dry eye. Presents with right eye irritation for the last two days. Denies any changes in vision or eye pain. Has tried to flush it with no relief she does wear glasses but no contacts. She also has thumb injury where she cut on proximal phalange without fat pat involvement. Her TDAP is up to date 2023 but she is worried its infected she has soaked in, no change in ROM, no redness going up her arm or swelling in the joint. Review of Systems Constitutional: Negative for fatigue and fever. Eyes: Positive for discharge, redness, itching and visual disturbance. Negative for photophobia and pain. Respiratory: Negative for cough and shortness of breath. Cardiovascular: Negative for chest pain. Skin: Positive for wound. Objective BP 110/72 Pulse 92 Temp 36.8 ?C (98.2 ?F) Resp 16 Wt 87.4 kg (192 lb 10.9 oz) LMP 08/19/2014 SpO2 96% BMI 40.27 kg/m? 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 SYNDROME Unspecified asthma(493.90) occasional inhaler Urinary calculus, unspecified 12/2005 Renal stones: left kidney per CT PAST SURGICAL HISTORY Procedure Laterality Date BLADDER SURGERY HX 08/02/2020 Cystoscopy and Sling CARPAL TUNNEL Left 10/12/2016 Dr. Conner DELIVERY ONLY 1994 , low cervical DELIVERY ONLY 07/26/2005 , low cervical CHOLECYSTECTOMY 1995 COLONOSCOPY 09/03/2017 D. Evangelista. NORMAL. Repeat in 10 years. DILATION AND CURETTAGE DXAND/THER NONOBSTETRIC 2015 Dilation AND curettage X 2 EGD 02/25/2010 Abnormal LES, esophagitis, antral ulcers, retained fluid in stomach, pos H Pylori EGD 04/14/2008 antral gastritis, neg h Pylori EGD W/O BRSH SPEC VARICIES INJ 2021 EGD W/O BRSH SPEC VARICIES INJ 06/29/2021 EGD W/O BRSH SPEC VARICIES INJ 08/28/2023 acute inflammation of the esophagus consistent with GERD LAPAROSCOPY SURG CHOLECYSTECTOMY PAST SURGICAL HISTORY OF 2006 REMOVAL OF FATTY TUMOR FROM R ARM PAST SURGICAL HISTORY OF 2007 Carpal Tunnel Surgery on right wrist PAST SURGICAL HISTORY OF 09/27/2012 left wrist carpal tunnel release PAST SURGICAL HISTORY OF Right 2017 partial nephrectomy VAGINAL HYSTERECTOMY 12/24/2019 WART REMOVAL WHI Right 09/03/2018 Removal of wart on third finger right hand - Dr. Herrera ALLERGIES Citalopram Hydrobromide, Morphine, Amoxicillin, Asa [Salicylates], Chocolate, Effexor [Venlafaxine Hcl], Naproxen, Penicillin G, Tape [Adhesive Tape-Silicones], Tomato, Tramadol, Trazodone, and Venlafaxine MEDICATIONS mirabegron (MYRBETRIQ) 50 mg Nu72Hixs 1 tablet by mouth every other day.Disp: 15 tabletRfl: 5 lansoprazole (PREVACID) 30 mg capsuleTake 1 capsule by mouth once daily.Disp: 90 capsuleRfl: 1 simvastatin (ZOCOR) 40 mg tabletTake 1 tablet by mouth daily at bedtime. At bedtimeDisp: 90 tabletRfl: 1 loratadine (CLARITIN) 10 mg tabletTake 1 tablet by mouth once daily.Disp: 28 tabletRfl: 11 gabapentin (NEURONTIN) 800 mg tabletTake 1 tablet by mouth four times daily for 180 days.Disp: 120 tabletRfl: 5 ondansetron orally disintegrating (ZOFRAN ODT) 8 mg disintegrating tabletTake 1 tablet by mouth every 8 hours as needed for nausea/vomiting.Disp: 60 tabletRfl: 1 rimegepant (NURTEC ODT) 75 mg disintegrating tabletTake 1 tablet at onset of headache/migraine. Only take 1 tablet as single dose in 24 hour period. (more content not included)... [facility] S[facility]KANTH [facility] (LIZET) BRITTNEY ALCOCER ([id number]) 1975 F NFR Date Time Provider Department 07/01/24 CRISTOBAL OTOOLE During your visit today, we recorded the following information about you: Ceasar DuncanLANDRY 07/01/2024 7:27 AM Signed Received fax from [facility] requesting form to be completed. Placed in red folder. LANDRY Chaparro Kristin C, APRN.ERENDIRA 07/01/2024 5:42 PM Signed Thank you, form is completed and signed. Cristobal Otoole APRN.ERENDIRA Novakismael LANDRY Roberts 07/02/2024 7:51 AM Signed Faxed. Placed in scanning. Ceasar Duncan MA Allergies As of Date: 07/01/2024 Noted Allergy Reaction CITALOPRAM HYDROBROMIDE 10/27/2004 10 - Anaphylaxis Comments: TACHYCARDIA MORPHINE 01/26/2005 8 - GI Upset AMOXICILLIN 10/24/2004 8 - GI Upset 14 - Other: See Comments Comments: Makes me worse ASA (SALICYLATES) 10/27/2004 4 - Hives CHOCOLATE 10/27/2004 EFFEXOR (VENLAFAXINE HCL) 10/27/2004 11 - Vomiting NAPROXEN 02/16/2006 5 - Intolerance Comments: Depression PENICILLIN G 09/08/2021 8 - GI Upset TAPE (ADHESIVE TAPE-SILICONES) 01/27/2021 14 - Other: See Comments Comments: Rash TOMATO 12/21/2020 5 - Intolerance Comments: If cooked cant tolerate them TRAMADOL 10/24/2004 8 - GI Upset TRAZODONE 08/28/2017 1 - Mental Status Change Comments: Causes hallucinations VENLAFAXINE 12/13/2015 16 - Unknown Date Reviewed: 06/11/2024 Reviewed by: Theresa Ayoub OCCA - Fully Assessed Reason for Visit: Electronic Communication [890] Cmt: [facility] Prescriptions as of 07/02/2024 - mirabegron (MYRBETRIQ) 50 mg Tb24 Take 1 tablet by mouth every other day. - lansoprazole (PREVACID) 30 mg capsule Take 1 capsule by mouth once daily. - simvastatin (ZOCOR) 40 mg tablet Take 1 tablet by mouth daily at bedtime. At bedtime - loratadine (CLARITIN) 10 mg tablet Take 1 tablet by mouth once daily. - gabapentin (NEURONTIN) 800 mg tablet Take 1 tablet by mouth four times daily for 180 days. - ondansetron orally disintegrating (ZOFRAN ODT) 8 mg disintegrating tablet Take 1 tablet by mouth every 8 hours as needed for nausea/vomiting. - rimegepant (NURTEC ODT) 75 mg disintegrating tablet Take 1 tablet at onset of headache/migraine. Only take 1 tablet as single dose in 24 hour period. - albuterol HFA (PROVENTIL HFA, VENTOLIN HFA) 90 mcg/actuation inhaler Inhale 2 Puffs as instructed every 4 hours as needed for wheezing/shortness of breath. - fremanezumab-vfrm subcutaneus auto-injector 225 mg/1.5 mL (AJOVY) Inject 1.5 mL subcutaneously once every month. Do not shake. - MEDICATION, NON-DATABASE Marijuana for migraines Facility-Administered Medications as of 07/02/2024 - onabotulinum toxin type A 200 Units injection (BOTOX) Problem List As Of Date 07/01/2024 Noted Resolved Supervision of other normal [Z34.80] 01/26/2005 01/06/2016 CELLULITIS FINGER,PARONYCHIA/ONYCH IA [L03.019] 12/12/2005 01/06/2016 Viral warts, unspecified [B07.9] 12/12/2005 01/06/2016 VISUAL LOSS, ONE EYE NOS [H54.60] 09/17/2006 Pain in joint, lower leg [M25.569] 09/08/2011 01/06/2016 Pain in joint, pelvic region and thigh [M25.559]09/08/2011 01/06/2016 Carpal tunnel syndrome, left [G56.02] 05/09/2012 Right knee pain [M25.561] 06/30/2014 Diverticulosis of intestine without bleeding [K*11/10/2015 Amenorrhea, unspecified [N91.2] 07/20/2015 Leiomyoma of uterus, unspecified [D25.9] 10/07/2015 Major depressive disorder, single episode, unsp*06/15/2015 Pain in right shoulder [M25.511] 10/12/2015 Unspecified asthma, uncomplicated [J45.909] 06/15/2015 Gastro-esophageal reflux disease without esopha*12/13/2015 Anxiety [F41.9] 12/13/2015 Left ovarian cyst [N83.202] 12/13/2015 History of drug abuse [F19.11] 12/13/2015 History of migraine [Z86.69] 12/13/2015 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] 12/13/2015 Kidney stone [N20.0] 12/13/2015 History of seizure [Z87.898] 12/13/2015 History of renal cell cancer [Z85.528] 01/06/2016 Renal neoplasm [D49.519] 04/27/2016 Occipital neuralgia of right side [M54.81] 08/15/2016 Eustachian tube dysfunction, bilateral [H69.93] 10/11/2016 Lumbar radiculopathy [M54.16] 10/11/2016 Leg weakness, bilateral [R29.898] 10/11/2016 Chronic bilateral low back pain with bilateral *10/11/2016 Chronic right-sided thoracic back pain [M54.6, *10/11/2016 Paresthesia of bilateral legs [R20.2] 10/11/2016 Osteoarthritis of spine with radiculopathy, lum*12/20/2016 Obesity, Class III, BMI >= 40 (morbid obesity) *01/12/2017 Migraine with aura, not intractable, without st*01/12/2017 Intervertebral disc disorder with radiculopathy* 8 Jaw pain [R68.84] 03/23/2017 Low back pain with left-sided sciatica [M54.42] 03/23/2017 Low back pain with right-sided sciatica [M54.41]03/23/2017 Other intervertebral disc degeneration, thoraci*03/23/2017 Pleurodynia [R0 (more content not included)... Normal [facility] 06-25-2024 SRIKANTH Telephone (LIZET) BRITTNEY ALCOCER ([id number]) 1975 F NFR Date Time Provider Department 06/25/24 CRISTOBAL OTOOLE During your visit today, we recorded the following information about you: Amy Blair MA 06/25/2024 11:59 AM Signed [facility] [facility]acy called stating that the patient reports taking Myrbetriq every other day. They just need an updated script for their records LANDRY Robins Kristin C, APRN.GASOLINE LOCOMOTIVE CRANE OPERATOR 06/25/2024 1:32 PM Signed New Rx sent. Cristobal Otoole APRN.Cristobal Walton APRN.CNP 06/25/2024 1:33 PM Signed Addended by: CRISTOBAL OTOOLE on: 06/25/2024 01:33 PM Modules accepted: Orders Amy Blair MA 06/25/2024 1:47 PM Signed [facility] pharmacy called again patient states Simvastatin is once a day at bedtime, and Prevacid she takes 2 times a day LANDRY Robins Julie, MA 06/25/2024 1:47 PM Signed Addended by: AMY BLAIR on: 06/25/2024 01:47 PM Modules accepted: Orders Cristobal Otoole APRN.[facility] 06/25/2024 1:55 PM Signed I don't recommend taking prevacid twice a day - a clarity developer would need to determine if twice a day dosing is necessary CAT Wylie Kristin C, APRN.CNP 06/25/2024 1:56 PM Signed Addended by: CRISTOBAL OTOOLE on: 06/25/2024 01:56 PM Modules accepted: Orders Allergies As of Date: 06/25/2024 Noted Allergy Reaction CITALOPRAM HYDROBROMIDE 10/27/2004 10 - Anaphylaxis Comments: TACHYCARDIA MORPHINE 01/26/2005 8 - GI Upset AMOXICILLIN 10/24/2004 8 - GI Upset 14 - Other: See Comments Comments: Makes me worse ASA (SALICYLATES) 10/27/2004 4 - Hives CHOCOLATE 10/27/2004 EFFEXOR (VENLAFAXINE HCL) 10/27/2004 11 - Vomiting NAPROXEN 02/16/2006 5 - Intolerance Comments: Depression PENICILLIN G 09/08/2021 8 - GI Upset TAPE (ADHESIVE TAPE-SILICONES) 01/27/2021 14 - Other: See Comments Comments: Rash TOMATO 12/21/2020 5 - Intolerance Comments: If cooked cant tolerate them TRAMADOL 10/24/2004 8 - GI Upset TRAZODONE 08/28/2017 1 - Mental Status Change Comments: Causes hallucinations VENLAFAXINE 12/13/2015 16 - Unknown Date Reviewed: 06/11/2024 Reviewed by: Theresa Ayoub OCCA - Fully Assessed Reason for Visit: Medication Question [1478] Order(s):mirabegron (MYRBETRIQ) 50 mg [id number] 1 tablet by mouth every other day.Disp: 15 tabletRfl: 5 lansoprazole (PREVACID) 30 mg capsuleTake 1 capsule by mouth once daily.Disp: 90 capsuleRfl: 1 simvastatin (ZOCOR) 40 mg tabletTake 1 tablet by mouth daily at bedtime. At bedtimeDisp: 90 tabletRfl: 1 Prescriptions as of 06/25/2024 - mirabegron (MYRBETRIQ) 50 mg Tb24 Take 1 tablet by mouth every other day. - lansoprazole (PREVACID) 30 mg capsule Take 1 capsule by mouth once daily. - simvastatin (ZOCOR) 40 mg tablet Take 1 tablet by mouth daily at bedtime. At bedtime - loratadine (CLARITIN) 10 mg tablet Take 1 tablet by mouth once daily. - gabapentin (NEURONTIN) 800 mg tablet Take 1 tablet by mouth four times daily for 180 days. - ondansetron orally disintegrating (ZOFRAN ODT) 8 mg disintegrating tablet Take 1 tablet by mouth every 8 hours as needed for nausea/vomiting. - rimegepant (NURTEC ODT) 75 mg disintegrating tablet Take 1 tablet at onset of headache/migraine. Only take 1 tablet as single dose in 24 hour period. - albuterol HFA (PROVENTIL HFA, VENTOLIN HFA) 90 mcg/actuation inhaler Inhale 2 Puffs as instructed every 4 hours as needed for wheezing/shortness of breath. - fremanezumab-vfrm subcutaneus auto-injector 225 mg/1.5 mL (AJOVY) Inject 1.5 mL subcutaneously once every month. Do not shake. - MEDICATION, NON-DATABASE Marijuana for migraines Facility-Administered Medications as of 06/25/2024 - onabotulinum toxin type A 200 Units injection (BOTOX) Problem List As Of Date 06/25/2024 Noted Resolved Supervision of other normal [Z34.80] 01/26/2005 01/06/2016 CELLULITIS FINGER,PARONYCHIA/ONYCH IA [L03.019] 12/12/2005 01/06/2016 Viral warts, unspecified [B07.9] 12/12/2005 01/06/2016 VISUAL LOSS, ONE EYE NOS [H54.60] 09/17/2006 Pain in joint, lower leg [M25.569] 09/08/2011 01/06/2016 Pain in joint, pelvic region and thigh [M25.559]09/08/2011 01/06/2016 Carpal tunnel syndrome, left [G56.02] 05/09/2012 Right knee pain [M25.561] 06/30/2014 Diverticulosis of intestine without bleeding [K*11/10/2015 Amenorrhea, unspecified [N91.2] 07/20/2015 Leiomyoma of uterus, unspecified [D25.9] 10/07/2015 Major depressive disorder, single episode, unsp*06/15/2015 Pain in right shoulder [M25.511] 10/12/2015 Unspecified asthma, uncomplicated [J45.909] 06/15/2015 Gastro-esophageal reflux disease without esopha*12/13/2015 Anxiety [F41.9] 12/13/2015 Left ovarian cyst [N83.202] 12/13/2015 History of drug abuse [F19.11] 12/13/2015 History of migraine [Z86.69] 12/13/2015 Ankylosis of sacroiliac joint [M43. (more content not included)... Normal [facility] OT General Evaluationon 06-05 OT General Evaluation [facility] [address] [place] [address]. [address] [place] [address] / REHABILITATION SERVICES INITIAL EVALUATION MR#: [id number] Acct: [id number] Name: BRITTNEY ALCOCER Rep #: [id number] : 1975 49 From: Tena MONTGOMERY CHT Referring Dr.: OUT OF TOWN DOCTOR Status: REG R CR Insurance: [employer] Eval Date: SELF PAY INSURANCE Patient's Visit Information Visit Information Visit Information: BRITTNEY ALCOCER is a 49 year old F, referred to Occupational Therapy by FRANCINE MEDEIROS, with a diagnosis of left RF displaced fx of distal phalanx. Date of Evaluation: 06/17/24 Occupational Therapist: DAVID Garg/ASA Nelson Subjective Subjective: This 49 year old female was seen for OT eval with dx of left RF displaced fx of distal phalanx. DOI was sometime in 2024 and pt was holding her dogs leash when the dog ran and puller her hand breaking her finger. pt arrives 10 weeks and 5 days s/p from distal phalanx closed reduction with percutaneous pinning. Bone is healed OT eval is for eval and tx AROM/PROM, strengthening, WBAT and ROM as tolerated. pt is right-handed works at [employer] typically 2 days a week pt states she is limited with full use of her left hand with all ADls and IADls. Pain left RF: Current Pain Intensity: 6 Pain Intensity Range: 6 and 8 ROM MP: left RF 0/90 right 0/85 PIP: left RF 0/95 right 0/100 DIP: left RF 0/35 right 0/65 ROM Comments: pt demo with a decrease in end range of motion of left RF Strength Bank Vault Attendant: left 15# with pain right 50# Lateral Pinch: left 16# right 16# Tripod Pinch: left 10# with pain right 10# Sensation Sensation Comments: pt reports hypersensitivity on tips of left MF/RF/LF with little finger more sensitive Quick DASH-Disab of Arm,Shoulder Hand Quick DASH Score: 33.3325 Goals Goal:ROM equal to unaffected hand: Yes Goal:Bank Vault Attendant/Pinch strength at least 75% of unaffected hand: Yes Goal:No pain with affected hand use: Yes Goal:Full use of affected hand in daily activities including work: Yes Rehabilitation General Assessment: pt arrives 10 weeks and 5 days s/p from distal phalanx closed reduction with percutaneous pinning. Bone is healed OT eval is for eval and tx AROM/PROM, strengthening, WBAT and ROM as tolerated. pt is limited with daily tasks due to pain and weakness. pt would benefit from further skilled OT services 1-2x week for 6 weeks to return pt to her PLOF. pt demo understanding and agree to POC. Rehabilitation Potential: Good Anticipated Interventions Anticipated Interventions: A/AAROM/PROM, Strengthening, Edema Control, Desensitization, Modalities, Orthoses, Joint Protection/Energy Conservation, Ergonomic Education, Fine Motor Coord/Sumeet, Education re assistive Equipment, Education re Diagnosis and Home Program Visit Plan Frequency: 2x /Week Duration: 6 Weeks TEXT: Thank you for the opportunity to evaluate your patient. For Medicare and Medicare HMO plans, please review the plan of care and approve it. It will need to be FAXED BACK to us at [phone] for Medicare purposes. Please let me know if there are questions or concerns regarding this plan of care. Physician Signature: Date: 06/17/24 1548 CC: GILA MEDEIROS MK Signed For Medicare only, by signing this I certify the plan of care. Physicians [facility] (UCWSTR ) BRITTNEY ALCOCER ([id number]) 1975 F NFR Date Time Provider Department 06/14/24 2:30 PM BANG MANDUJANO [facility] During your visit today, we recorded the following information about you: Temperature Pulse Respiration Blood pressure 97.3 degrees 85/minute 16/minute 110/78 Weight 88.1 kg Bang Mandujano MD 06/14/2024 2:47 PM Signed [facility] Subjective Brittney Alcocer is a 49 year old female. Patient presents with: Nausea: Nausea, dizzy and lightheaded and runny nose x 1 day Patient presents with nasal congestion and drainage which began 2 days ago. Today she has been feeling dizzy, nauseous, and fatigued. Her is currently at home with runny nose and chills. She denies headache, fever, chills, cough, or eye discharge. She takes daily allergy medicine and use Zofran this morning. Review of Systems Objective BP 110/78 Pulse 85 Temp 36.3 ?C (97.3 ?F) (Tympanic) Resp 16 Wt 88.1 kg (194 lb 3.6 oz) LMP 08/19/2014 SpO2 97% BMI 40.59 kg/m? Physical Exam Constitutional: General: She is not in acute distress. HENT: Right Ear: Tympanic membrane and ear canal normal. Left Ear: Tympanic membrane and ear canal normal. Nose: Congestion present. Right Sinus: No maxillary sinus tenderness or frontal sinus tenderness. Left Sinus: No maxillary sinus tenderness or frontal sinus tenderness. Mouth/Throat: Mouth: Mucous membranes are moist. Pharynx: No oropharyngeal exudate or posterior oropharyngeal erythema. Eyes: Extraocular Movements: Extraocular movements intact. Conjunctiva/sclera: Conjunctivae normal. Pupils: Pupils are equal, round, and reactive to light. Cardiovascular: Rate and Rhythm: Normal rate and regular rhythm. Heart sounds: No murmur heard. Pulmonary: Effort: No respiratory distress. Breath sounds: No wheezing, rhonchi or rales. Musculoskeletal: Cervical back: Neck supple. Lymphadenopathy: Cervical: No cervical adenopathy. Neurological: Mental Status: She is alert. {ASSESSMENT/PLAN: 1. Acute upper respiratory infection - ICD9: 465.9, ICD10: J06.9 (primary diagnosis) 2. Dizziness - ICD9: 780.4, ICD10: R42 - suspect viral URI - Supportive care treatment with rest, cold medicine, and analgesia. - COVID AND INFLUENZA A/B AND RSV PCR, ROUTINE - Work note provided today out of concern for dizziness while driving. Bang Mandujano MD Differential Diagnoses - Viral URI is more likely for the following reason(s): Typical symptoms and exposure Procedures Allergies As of Date: 06/14/2024 Noted Allergy Reaction CITALOPRAM HYDROBROMIDE 10/27/2004 10 - Anaphylaxis Comments: TACHYCARDIA MORPHINE 01/26/2005 8 - GI Upset AMOXICILLIN 10/24/2004 8 - GI Upset 14 - Other: See Comments Comments: Makes me worse ASA (SALICYLATES) 10/27/2004 4 - Hives CHOCOLATE 10/27/2004 EFFEXOR (VENLAFAXINE HCL) 10/27/2004 11 - Vomiting NAPROXEN 02/16/2006 5 - Intolerance Comments: Depression PENICILLIN G 09/08/2021 8 - GI Upset TAPE (ADHESIVE TAPE-SILICONES) 01/27/2021 14 - Other: See Comments Comments: Rash TOMATO 12/21/2020 5 - Intolerance Comments: If cooked cant tolerate them TRAMADOL 10/24/2004 8 - GI Upset TRAZODONE 08/28/2017 1 - Mental Status Change Comments: Causes hallucinations VENLAFAXINE 12/13/2015 16 - Unknown Date Reviewed: 06/11/2024 Reviewed by: Theresa Ayoub OCCA - Fully Assessed Reason for Visit: Nausea [70] Cmt: Nausea, dizzy and lightheaded and runny nose x 1 day Primary Visit Diagnosis:Acute upper respiratory infection [J06.9] Other Visit Diagnosis:Dizziness [R42] Order(s):COVID AND INFLUENZA A/B AND RSV PCR, ROUTINE [SQCVFLRS] Order #: [id number]. #:[id number] Prescriptions as of 06/14/2024 - loratadine (CLARITIN) 10 mg tablet Take 1 tablet by mouth once daily. - lansoprazole (PREVACID) 30 mg capsule Take 1 capsule by mouth two times a day. - gabapentin (NEURONTIN) 800 mg tablet Take 1 tablet by mouth four times daily for 180 days. - ondansetron orally disintegrating (ZOFRAN ODT) 8 mg disintegrating tablet Take 1 tablet by mouth every 8 hours as needed for nausea/vomiting. - rimegepant (NURTEC ODT) 75 mg disintegrating tablet Take 1 tablet at onset of headache/migraine. Only take 1 tablet as single dose in 24 hour period. - albuterol HFA (PROVENTIL HFA, VENTOLIN HFA) 90 mcg/actuation inhaler Inhale 2 Puffs as instructed every 4 hours as needed for wheezing/shortness of breath. - mirabegron (MYRBETRIQ) 50 mg Tb24 Take 1 tablet by mouth once daily. - fremanezumab-vfrm subcutaneus auto-injector 225 mg/1.5 mL (AJOVY) Inject 1.5 mL subcutaneously once every month. Do not shake. - simvastatin (ZOCOR) 20 mg tablet Take 2 tablets by mouth daily at bedtime. - MEDICATION, NON-DATABASE Marijuana for migraines Facility-Administered Medications as of 06/14 (more content not included)... Normal [facility] CNOVon 06-11-2024 CNOV Office Visit ([facility] ) BRITTNEY ALCOCER ([id number]) 1975 F NFR Date Time Provider Department 06/11/24 11:30 AM MARISOL JIMENEZ [facility] During your visit today, we recorded the following information about you: Pulse Blood pressure Weight 80/minute 113/61 86.2 kg Marisol Jimenez, RED CROSS WORKER.GASOLINE LOCOMOTIVE CRANE OPERATOR 06/11/2024 11:04 AM Signed [facility] Follow-up Visit Current Preventive: Botox Ajovy Current Abortive: Nurtec Headache Infusions 06/09/2024- 06/11/2024 Therapy Plan: zofran magnesium robaxin valproate Headache Infusion 03/11/2024-03/13/2024 Impression: Intractable chronic migraine without aura and without status migrainosus (primary encounter diagnosis) Brittney Alcocer is a 49-year-old female with a history of chronic migraine, stroke, KS,chronic pain syndrome, TMJD, concussion, peptic ulcer, hypothyroid, asthma, pelvic pain, renal stones and insomnia, presenting for follow-up and management of chronic migraines Plan: Follow-Up Onabotulinum Toxin A (BotoxTM) for Migraine Indication: Chronic Intractable Migraine Referral Expiration: 12/10/2024 Prior to the initiation of the FIRST treatment with Onabotulinum Toxin A, the patient reported the following average headache frequency over the past 3 MONTHS: Number of moderate-severe migraine days/month: 30 (daily) Migraine severity: 11/14 After treatment with Onabotulinum Toxin A: Number of moderate-severe migraine days/month: 15 Number of mild migraine days/month: 15 Number of headache free days/month: 0 (0 headache-free hours) Patient reduction in moderate-severe migraine days: Yes - less of the sever headaches Individual has obtained clinical benefit deemed significant by individual or prescriber (Y/N): Yes Patient's quality of life and ability to perform ADLs has improved (Y/N): Yes Side effects: none Wearing off: Yes - 9 weeks after treatment The patient has been assessed for disorders which could contribute to breathing or swallowing difficulty, and there is no contraindication with PREEMPT Botox. There is no documented allergic reaction/hypersensitivi ty to any botulinum toxin and there is no active infection at proposed injection site. HEADACHE SCORES: 11/14/2023 03/05/2024 06/06/2024 Headache Questions ER visits since last office visit: 0 0 0 Hospital stays since last office visit 0 0 Limited ADLs in the last month: 20 10 2 Days missed from work or school in the last month: 10 5 5 Days headache pain free in the last month: 15 2 9 Days per month with ALL of the following symptoms - decreased productivity, light sensitivity and nausea: 10 5 20 Initial improvement of headache after botox injection at last visit: Very much improved Very much improved Much improved PRN medication usage in the last month: 0 20 Patient impression of improvement since last visit: Much improved Very much improved Much improved 11/14/2023 03/05/2024 06/06/2024 HIT-6 HIT-6 64 (Severe impact) 62 (Severe impact) 60 (Severe impact) 11/14/2023 03/05/2024 06/06/2024 DAVID - 2/7 SCORES DAVID-2 Score 0 0 2 2 2 11/14/2023 03/05/2024 06/06/2024 Migraine Specific QOL - Higher scores indicate better HRQL Role Function-Restrictive Transformed Score (range: 0-100) 40 48.57 60 Role Function-Preventive Transformed Score (range: 0-100) 40 65 50 Emotional Function Transformed Score (range: 0-100) 40 13.33 60 11/14/2023 03/05/2024 06/06/2024 PHQ-9 Score 6 5 3 3 3 BP 113/61 (BP Position: Sitting) Pulse 80 Wt 86.2 kg (190 lb) LMP 08/19/2014 SpO2 97% BMI 39.71 kg/m? BP 113/61 (BP Position: Sitting) Pulse 80 Wt 86.2 kg (190 lb) LMP 08/19/2014 SpO2 97% BMI 39.71 kg/m? Patient name: Brittney Alcocer : 1975 ALLERGIES Allergen Reactions Citalopram Hydrobro* Anaphylaxis TACHYCARDIA Morphine GI Upset Amoxicillin GI Upset, Other: See Comments Makes me worse Asa [Salicylates] Hives Chocolate Effexor [Venlafaxin* Vomiting Naproxen Intolerance Depression Penicillin G GI Upset Tape [Adhesive Tape* Other: See Comments Rash Tomato Intolerance If cooked cant tolerate them Tramadol GI Upset Trazodone Mental Status Change Causes hallucinations Venlafaxine Unknown UNIVERSAL PROTOCOL / SAFETY CHECKLIST Procedure: Onabotulinum toxin A for migraine Informed Consent Consent Obtained: Written [place] Protocol A moment to CARE was completed SIGN IN Personnel directly involved with the procedure wore the appropriate PPE Special Equipment: N/A Patient/Surrogate Stated/Verified: Patient name, Date of , Relevant allergies and Intended procedure TIME OUT No relevant labs, photos, and/or imaging studies were applicable for review. Consent documented and matches the intended procedure No correct side/site applicable for marking and visibility. No medications required for procedure. No fire risk assessmen (more content not included)... Normal [facility] CNOVon 06-09-2024 CNOV Office Visit ([facility] ) BRITTNEY ALCOCER ([id number]) 1975 F NFR Date Time Provider Department 06/09/24 7:30 AM SANDEEP REYES [facility] During your visit today, we recorded the following information about you: Sandeep Reyes, RED CROSS WORKER.GASOLINE LOCOMOTIVE CRANE OPERATOR 06/09/2024 8:09 AM Signed [facility] Infusion [facility] Note Subjective: Brittney Alcocer is a 49 year old year old female presenting for day 1 of infusions. Therapy Plan: zofran magnesium robaxin valproate New health conditions since orders were placed: No Cardiovascular risk factors: Myocardial Infarction and Stroke Triptan dose in the last 24 hours: No Last muscle relaxer dose: No Last NSAID dose: No Response to infusions: Patient tolerating infusion without side effects. Current preventive treatment: botox, gabapentin 800 mg QID, ajovy Current abortive treatment: nurtec, marijuana Labs: Latest Ref Rng AND Units 12/28/2023 CBC WBC 3.70 - 11.00 k/uL 6.99 RBC 3.90 - 5.20 m/uL 4.72 Hemoglobin 11.5 - 15.5 g/dL 15.1 Hematocrit 36.0 - 46.0 % 46.1 MCV 80.0 - 100.0 fL 97.7 MCH 26.0 - 34.0 pg 32.0 MCHC 30.5 - 36.0 g/dL 32.8 RDW-CV 11.5 - 15.0 % 12.9 Platelet Count 150 - 400 k/uL 243 MPV 9.0 - 12.7 fL 10.2 Latest Ref Rng AND Units 12/28/2023 CMP Sodium 136 - 144 mmol/L 142 Potassium 3.7 - 5.1 mmol/L 4.1 Chloride 98 - 107 mmol/L 106 CO2 22 - 30 mmol/L 27 Glucose 74 - 99 mg/dL 91 BUN 7 - 21 mg/dL 13 Creatinine 0.58 - 0.96 mg/dL 0.82 EGFR >=60 mL/min/1.73m? 88 Protein, Total 6.3 - 8.0 g/dL 7.5 Albumin 3.9 - 4.9 g/dL 4.5 Calcium 8.5 - 10.2 mg/dL 9.7 Bilirubin, Total 0.2 - 1.3 mg/dL 0.4 AST 13 - 35 U/L 17 ALT 7 - 38 U/L 16 Alkaline Phosphatase 34 - 123 U/L 116 ALLERGIES Allergen Reactions Citalopram Hydrobro* Anaphylaxis TACHYCARDIA Morphine GI Upset Amoxicillin GI Upset, Other: See Comments Makes me worse Asa [Salicylates] Hives Chocolate Effexor [Venlafaxin* Vomiting Naproxen Intolerance Depression Penicillin G GI Upset Tape [Adhesive Tape* Other: See Comments Rash Tomato Intolerance If cooked cant tolerate them Tramadol GI Upset Trazodone Mental Status Change Causes hallucinations Venlafaxine Unknown Current Medications: loratadine (CLARITIN) 10 mg tabletTake 1 tablet by mouth once daily.Disp: 28 tabletRfl: 11 lansoprazole (PREVACID) 30 mg capsuleTake 1 capsule by mouth two times a day.Disp: 60 capsuleRfl: 0 gabapentin (NEURONTIN) 800 mg tabletTake 1 tablet by mouth four times daily for 180 days.Disp: 120 tabletRfl: 5 ondansetron orally disintegrating (ZOFRAN ODT) 8 mg disintegrating tabletTake 1 tablet by mouth every 8 hours as needed for nausea/vomiting.Disp: 60 tabletRfl: 1 rimegepant (NURTEC ODT) 75 mg disintegrating tabletTake 1 tablet at onset of headache/migraine. Only take 1 tablet as single dose in 24 hour period.Disp: 8 tabletRfl: 11 albuterol HFA (PROVENTIL HFA, VENTOLIN HFA) 90 mcg/actuation inhalerInhale 2 Puffs as instructed every 4 hours as needed for wheezing/shortness of breath.Disp: 1 EachRfl: 11 mirabegron (MYRBETRIQ) 50 mg [id number] 1 tablet by mouth once daily.Disp: 30 tabletRfl: 5 fremanezumab-vfrm subcutaneus auto-injector 225 mg/1.5 mL (AJOVY)Inject 1.5 mL subcutaneously once every month. Do not shake.Disp: 1.5 mLRfl: 11 simvastatin (ZOCOR) 20 mg tabletTake 2 tablets by mouth daily at bedtime.Disp: 180 tabletRfl: 3 MEDICATION, NON-DATABASEMarijuana for migrainesDisp: Rfl: Review of Systems: Review of system: Patient reports no change from the prior visit. Objective: VS: see infusion note for vital signs General: well appearing, in no acute distress, alert Neurological: Pain Behaviors: no pain behaviors observed Mental Status: Alert and oriented to person, place and time. Affect is normal and appropriate. Speech is spontaneous and fluent without dysarthria, normal in rate, volume and articulation, and clear, coherent, and relevant. Short and snf memory, cognition and general fund of knowledge are good. Attention span and concentration are excellent. Cranial Nerves: VII-face is symmetric without evidence of weakness. VIII-hearing intact. Assessment: (G43.901) Status migrainosus (primary encounter diagnosis) Plan: Brittney Alcocer is a 49 year old year old female, with a history of chronic migraine, stroke, KS,chronic pain syndrome, TMJD, concussion, peptic ulcer, hypothyroid, asthma, pelvic pain, renal stones and insomnia following up today for day 1 of infusions. Follow up plan: Hold Triptans on infusion days or within 24 hours of infusion. Hold Muscle relaxers on infusion days or within 24 hours of infusion. Level of service: Est level 2 (10-19 min). Time spent 10 min on the day of service, which included preparing to see the patient, [id number] patient care, completing clinical documentation, and obtaining and/or reviewing s (more content not included)... Normal [facility] Duong 06-09-[address] [facility] Telephone ([facility]) BRITTNEY ALCOCER ([id number]) 1975 F NFR Date Time Provider Department 06/09/24 SANDEEP REYES [facility] During your visit today, we recorded the following information about you: Allergies As of Date: 06/09/2024 Noted Allergy Reaction CITALOPRAM HYDROBROMIDE 10/27/2004 10 - Anaphylaxis Comments: TACHYCARDIA MORPHINE 01/26/2005 8 - GI Upset AMOXICILLIN 10/24/2004 8 - GI Upset 14 - Other: See Comments Comments: Makes me worse ASA (SALICYLATES) 10/27/2004 4 - Hives CHOCOLATE 10/27/2004 EFFEXOR (VENLAFAXINE HCL) 10/27/2004 11 - Vomiting NAPROXEN 02/16/2006 5 - Intolerance Comments: Depression PENICILLIN G 09/08/2021 8 - GI Upset TAPE (ADHESIVE TAPE-SILICONES) 01/27/2021 14 - Other: See Comments Comments: Rash TOMATO 12/21/2020 5 - Intolerance Comments: If cooked cant tolerate them TRAMADOL 10/24/2004 8 - GI Upset TRAZODONE 08/28/2017 1 - Mental Status Change Comments: Causes hallucinations VENLAFAXINE 12/13/2015 16 - Unknown Date Reviewed: 06/09/2024 Reviewed by: Sandeep Reyes APRN.GASOLINE LOCOMOTIVE CRANE OPERATOR - Fully Assessed Prescriptions as of 06/09/2024 - loratadine (CLARITIN) 10 mg tablet Take 1 tablet by mouth once daily. - lansoprazole (PREVACID) 30 mg capsule Take 1 capsule by mouth two times a day. - gabapentin (NEURONTIN) 800 mg tablet Take 1 tablet by mouth four times daily for 180 days. - ondansetron orally disintegrating (ZOFRAN ODT) 8 mg disintegrating tablet Take 1 tablet by mouth every 8 hours as needed for nausea/vomiting. - rimegepant (NURTEC ODT) 75 mg disintegrating tablet Take 1 tablet at onset of headache/migraine. Only take 1 tablet as single dose in 24 hour period. - albuterol HFA (PROVENTIL HFA, VENTOLIN HFA) 90 mcg/actuation inhaler Inhale 2 Puffs as instructed every 4 hours as needed for wheezing/shortness of breath. - mirabegron (MYRBETRIQ) 50 mg Tb24 Take 1 tablet by mouth once daily. - fremanezumab-vfrm subcutaneus auto-injector 225 mg/1.5 mL (AJOVY) Inject 1.5 mL subcutaneously once every month. Do not shake. - simvastatin (ZOCOR) 20 mg tablet Take 2 tablets by mouth daily at bedtime. - MEDICATION, NON-DATABASE Marijuana for migraines Facility-Administered Medications as of 06/09/2024 - ondansetron (PF) 8 mg injection (ZOFRAN) - ondansetron (PF) 8 mg injection (ZOFRAN) - diphenhydrAMINE 25 mg injection (BENADRYL) - famotidine 20 mg injection (PEPCID) - onabotulinum toxin type A 200 Units injection (BOTOX) Problem List As Of Date 06/09/2024 Noted Resolved Supervision of other normal [Z34.80] 01/26/2005 01/06/2016 CELLULITIS FINGER,PARONYCHIA/ONYCH IA [L03.019] 12/12/2005 01/06/2016 Viral warts, unspecified [B07.9] 12/12/2005 01/06/2016 VISUAL LOSS, ONE EYE NOS [H54.60] 09/17/2006 Pain in joint, lower leg [M25.569] 09/08/2011 01/06/2016 Pain in joint, pelvic region and thigh [M25.559]09/08/2011 01/06/2016 Carpal tunnel syndrome, left [G56.02] 05/09/2012 Right knee pain [M25.561] 06/30/2014 Diverticulosis of intestine without bleeding [K*11/10/2015 Amenorrhea, unspecified [N91.2] 07/20/2015 Leiomyoma of uterus, unspecified [D25.9] 10/07/2015 Major depressive disorder, single episode, unsp*06/15/2015 Pain in right shoulder [M25.511] 10/12/2015 Unspecified asthma, uncomplicated [J45.909] 06/15/2015 Gastro-esophageal reflux disease without esopha*12/13/2015 Anxiety [F41.9] 12/13/2015 Left ovarian cyst [N83.202] 12/13/2015 History of drug abuse [F19.11] 12/13/2015 History of migraine [Z86.69] 12/13/2015 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] 12/13/2015 Kidney stone [N20.0] 12/13/2015 History of seizure [Z87.898] 12/13/2015 History of renal cell cancer [Z85.528] 01/06/2016 Renal neoplasm [D49.519] 04/27/2016 Occipital neuralgia of right side [M54.81] 08/15/2016 Eustachian tube dysfunction, bilateral [H69.93] 10/11/2016 Lumbar radiculopathy [M54.16] 10/11/2016 Leg weakness, bilateral [R29.898] 10/11/2016 Chronic bilateral low back pain with bilateral *10/11/2016 Chronic right-sided thoracic back pain [M54.6, *10/11/2016 Paresthesia of bilateral legs [R20.2] 10/11/2016 Osteoarthritis of spine with radiculopathy, lum*12/20/2016 Obesity, Class III, BMI >= 40 (morbid obesity) *01/12/2017 Migraine with aura, not intractable, without st*01/12/2017 Intervertebral disc disorder with radiculopathy* 8 Jaw pain [R68.84] 03/23/2017 Low back pain with left-sided sciatica [M54.42] 03/23/2017 Low back pain with right-sided sciatica [M54.41]03/23/2017 Other intervertebral disc degeneration, thoraci*03/23/2017 Pleurodynia [R07.81] 03/23/2017 Syncope and collapse [R55] 03/23/2017 Chronic migraine without aura, intractable, wit*04/10/2017 Intractable chronic post-traumatic headache [G4*04/10/2017 Chronic pain syndrome [G89.4] 04/10/2017 Obesity, Class II, BMI 35-39.9 [E66.812] 12/19/2017 Auditory hallucin (more content not included)... Normal [facility] Office Visiton 06-05-2024 Follow-up visit [id number] Brittney Alcocer 1975 F Date Provider Department Center 06/05/2024 [id number] MEDEIROS [facility] ORT [facility] None No family history on file Level of Service:19575 MA POSTOP FOLLOW UP VISIT RELATED TO ORIGINAL PX Reason for Visit and Comments: Post-op [483] - DOS 04/01/24/ Closed reduction percutaneous pinning left ring finger distal phalanx fracture Normal [facility] Progress Noteon 06-05-2024 Progress Note --- Attestation signed by Trent Alas MD at 06/06/2024 1:22 PM Patient was seen and evaluated in conjunction with Diana Medeiros PA-C. Agree with assessment and plan. Trent Alas MD Orthopedic Hand and Upper Extremity Surgery [facility] Department of Orthopaedics [facility] [place] [address] [place] [address] [place] [address] Dept: [phone] Dept 06/05/2024 Chief Complaint Patient presents with Post-op DOS 04/01/24/ Closed reduction percutaneous pinning left ring finger distal phalanx fracture SUBJECTIVE Brittney is approximately 9 week(s) s/p Closed reduction percutaneous pinning left ring finger distal phalanx fracture . Pain is moderate. She is taking tylenol for pain relief. She admits to numbness and tingling along the volar and dorsal left ring finger distal phalanx. She feels her percutaneous K-wire sites have healed well. Patient reports she has tried to remain as nonweightbearing as possible with the left upper extremity. Admits compliance to her Stax splint. Otherwise, she has no concerns today. OBJECTIVE Resp 13 Ht 4' 10 (1.473 m) Wt 180 lb (81.6 kg) BMI 37.62 kg/m? Ortho Exam Focused Exam of the LEFT Upper Extremity: Skin: intact without any evidence of breakdown. Percutaneous K-wire sites well healed without signs of infection. See clinical image below. Clinical Image: Edema: mild edema surrounding the volar and dorsal ring finger distal phalanx. No fusiform swelling appreciated. Palpation: tender to palpation over the circumferential ring finger distal phalanx. ROM: full functional ROM of the shoulder, elbow, wrist. Wrist ROM: Flexion 75? Extension 65? Supination Full Pronation Full LEFT ring finger MCP (nl 0-45?H/90?) PIP (nl 0?/100?) DIP (nl 0?-80?) Tip to Palm EXTENSION 0? 0? 0? FLEXION 75? 60? 5? 4cm *(Passive values entered only if different than active; otherwise = AROM) Stability: no evidence of joint instabilities Motor: Intact in the hand - able to fire AIN, PIN, and Ulnar nerves Sensation: Intact to light touch in the median, ulnar, and radial nerve distributions. LEFT Hand 2-point discrimination (mm) Thumb Index Long Ring Small r u r u r u r u r u 5 5 5 5 5 5 5 5 5 5 Median Ulnar Perfusion: Brisk capillary refill in all 5 digits IMAGING LEFT Hand 3V were taken yesterday (06/04/2024) and reviewed by myself that demonstrate the patient's left ring finger distal phalanx fracture to be in similar alignment when compared to previous imaging on 05/08/2024. Bony callus formation noted about the fracture site. No other acute osseous or soft tissue abnormalities appreciated. ASSESSMENT 1. Closed displaced fracture of distal phalanx of left ring finger with routine healing, subsequent encounter XR hand 3+ views left, External referral to Occupational Therapy, CANCELED: External referral to Occupational Therapy PLAN Brittney is recovering relatively well postoperatively. Still admits to moderate pain and numbness and tingling about the left ring finger distal phalanx. Admits compliance to her Stax splint. Admits subjective compliance to her nonweightbearing restrictions with the left upper extremity. Reassured her the numbness and tingling of the operative finger should improve with time. She can discontinue the Stax splint at this time and begin to be range of motion as tolerated about the left upper extremity. She can also begin gradually advancing her weightbearing as tolerated through the left hand and fingers/left upper extremity, allowing pain to be her guide. She has no restrictions from an Orthopedics standpoint at this time. I had an extensive conversation with Petar about finger and wrist ROM. She is considerably stiff in the long, ring, and small fingers of the left hand. I recommended she begin OT to help with finger and wrist AROM/PROM, edema control, and strengthening. She would like to attend therapy closer to her home in [place], so as such an external referral was placed and printed for the patient today. Encouraged her to also continue aggressive finger and wrist ROM at home as well. ROM exercises were demonstrated for the patient today in the office. I would like her to follow up with me in 4-6 weeks to further monitor healing. All questions were answered to the best of my ability. Patient verbalized understanding and is agreeable with the plan. Immobilization: NO immobilization required at this point - FULL ROM encouraged without resitrictions Weight Bearing: Weight Bearing As Tolerated Rehabilitation: OT/PT Rx given: To follow protocol. Follow-up: Brittney will followup with me in 4-6 weeks. She knows to call the office with any questions or concerns in the interim. Future (more content not included)... [facility] Progress Noteon 05-22-2024 Progress Note [facility] [address] [address] Discharge Notification Patient Name: Petar Alcocer : 1975 Today's Date: 05/22/2024 Patient has not been seen since 03/10/24. The patient will be discharged at this time due to inactivity. The patient has not been seen for outpatient therapy in 30+ days and has not made contact to reschedule. The patient will require new referral/evaluation to resume therapy in the future. The patient will be discharged at this time. Please refer to initial evaluation or re-assessment for last goals/objective measures assessment and progress report. Thank you for this referral. For any questions on this patient?s course of therapy, please call the clinic for clarification. Linda Randle PT [facility] Office Visiton 05-08-2024 Follow-up visit [id number] Brittney Alcocer 1975 F Date Provider Department Center 05/08/2024 FRANCINE DIXON [facility] [place] None No family history on file Level of Service:13125 [place] POSTOP FOLLOW UP VISIT RELATED TO ORIGINAL PX Reason for Visit and Comments: Post-op [483] - DOS 04/01/24/ Closed reduction percutaneous pinning left ring finger distal phalanx fracture Normal [facility] Progress Noteon 05-08-2024 Progress Note --- Attestation signed by Trent Alas MD at 05/08/2024 3:39 PM Patient was seen and evaluated in conjunction with Diana Medeiros PA-C. Agree with above assessment and plan. Trent Alas MD Orthopedic Hand and Upper Extremity Surgery [facility] Department of Orthopaedics Chief Complaint Patient presents with Post-op DOS 04/01/24/ Closed reduction percutaneous pinning left ring finger distal phalanx fracture Subjective: Brittney is approximately 5 week(s) s/p closed reduction percutaneous pinning of Left ring finger distal phalanx fracture. Pain is mild. She is taking tylenol for pain relief. She still admits to numbness and tightness of the left ring finger and intermittently feels like it is going to burst . The patient has been compliant with non-weight bearing restrictions in a short arm cast . Patient denies fevers and chills. Patient presents to the office today for follow up after closed reduction and percutaneous pinning of her left ring finger distal phalanx fracture. Only admits to mild pain at this point, taking OTC Tylenol PRN for pain. Still admits to numbness of the left ring finger. She denies fevers, chills, or other signs of infection. Cannot speak to drainage from her K-wire sites secondary to cast placement. She has no other concerns today. Objective: There were no vitals taken for this visit. Ortho Exam Left Upper Extremity Focused Exam of the Left Upper Extremity Skin: intact without any evidence of breakdown. No gross drainage from K-wire sites, surrounding erythema, fluctuance, induration, or other evidence of infection. See clinical images below. Clinical Images: Edema: mild edema surrounding the distal phalanx - 4th digit Palpation: tender to palpation over the distal phalanx - 4th digit ROM: LEFT ring finger MCP (nl 0-45?H/90?) PIP (nl 0?/100?) DIP (nl 0?-80?) Tip to Palm EXTENSION 0? 0? 0? FLEXION 45? 65? 25? 4cm *(Passive values entered only if different than active; otherwise = AROM) Remaining fingers flex 3-4cm from palm. Active wrist range of motion: full flexion/ full extension. Pronation 80 / Supination 80 . Malrotation of Digit: No Malalignment: of Digit: No Normal Tenodesis cascade No scissoring Motor: Intact in the hand - able to fire AIN, PIN, and Ulnar nerves Sensation: to light touch is normal in the median, ulnar, and radial nerve distributions Perfusion: Brisk capillary refill in all 5 digits XRay: LEFT Hand 3V interpreted by myself in the office today separate from radiology show redemonstrate 2 K-wires in similar alignment when compared to previous imaging on 04/10/2024. Some bony callus formation appreciated, although healing remains incomplete at this time. Minimal osteopenic changes noted about the ring finger distal phalanx likely secondary to immobilization and disuse. No other acute osseous or soft tissue abnormalities appreciated. Assessment 1. Closed displaced fracture of distal phalanx of left ring finger with routine healing, subsequent encounter XR hand 3+ views left Plan Star is recovering relatively well. She still admits to numbness about the left ring finger. Admits compliance to her cast and NWB restrictions. Percutaneous K-wires were intact upon presentation today. Percutaneous K-wire sites were cleansed with alcohol swabs and the pins were removed in the office today without difficulty. Minimal blood was expressed from pin sites after removal which quickly dissipated. No purulent drainage or other evidence of infection at the pin sites. Patient was instructed to call the office should she begin experiencing purulent drainage from the K-wire sites, fevers, chills, surrounding erythema, or other signs of infection. I would like Brittney to transition to a left ring finger Stax splint today. She is to wear the splint at all times, only coming out for personal hygiene purposes and she is to remain nonweightbearing until her next visit in 4 weeks. She asked about dish duty at work, instructed her after the pin sites completely close in approximately 2 weeks, she can do dishes as long as she remains NWB about the left upper extremity. Work note was provided stating she is to remain light duty with the following restrictions: wearing the splint at all times and not doing dishes until 05/22/2024. She should also remain NWB about the left upper extremity. Finger range of motion was encouraged within the confines of the splint. No formal therapy is needed at this time. Expected recovery course was discussed with the patient. All questions were answered to the best of my ability. She verbalized understanding and is comfortable with the plan. Weight Bearing: Non Weight Bearing Rehabilitation: NO formal rehabilitation re (more content not included)... Normal [facility] Office Visiton 04-24-2024 Follow-up visit [id number] Brittney Alcocer 1975 F Date Provider Department Center 04/24/2024 [id number] MEDEIROS [facility] None No family history on file Level of Service:32691 MA POSTOP FOLLOW UP VISIT RELATED TO ORIGINAL PX Reason for Visit and Comments: Post-op [483] - post operative pain/ numbness and tingling / DOS 04/01/24/ Closed reduction percutaneous pinning left ring finger distal phalanx fracture Normal [facility] Progress Noteon 04-24-2024 Progress Note --- Attestation signed by Trent Alas MD at 04/29/2024 8:15 AM Patient was seen and evaluated in conjunction with Diana Medeiros PA-C. Agree with above assessment and plan. Trent Alas MD Orthopedic Hand and Upper Extremity Surgery [facility] Department of Orthopaedics [facility] - [place] [address] [place] [address] [place] [address] Dept: [phone] Dept 04/24/2024 Chief Complaint Patient presents with Post-op post operative pain/ numbness and tingling / DOS 04/01/24/ Closed reduction percutaneous pinning left ring finger distal phalanx fracture SUBJECTIVE Brittney is approximately 1 month(s) s/p Closed reduction percutaneous pinning left ring finger distal phalanx fracture (DOS 04/01/24). Presents today for postoperative pain/numbness and tingling. Pain is intolerable. She is taking tylenol for pain relief. She admits to numbness and tingling of bilateral fingers. She denies drainage from her incision. She complains of new symptoms to include severe tingling in all fingertips bilaterally. Patient states she feels a bee sting sensation in all 10 fingers. She states that she can feel moisture, sweat-like, dripping down her operative finger that was increased on a recent warm day. Patient also states she is having severe elbow and shoulder pain. Patient states symptoms are unbearable but patient presents with no apparent distress. Patient presents the office today for pain/numbness and tingling follow-up after closed reduction percutaneous pinning of her left ring finger distal phalanx fracture on 04/01/2024. Patient had messaged in via [employer] stating she was having increased pain and numbness and tingling about the left upper extremity. Today, patient admits to bilateral numbness and tingling and a bee sting sensation about her bilateral fingers. She is also complaining of significant left shoulder and elbow pain, denies any inciting trauma that triggered this. Patient does not feel like her cast is too tight. Patient has been keeping her pain under control with [id number] Tylenol. Of note, patient does have anappointment with pain management in the near future to receive a corticosteroid injection in her left shoulder. 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 OBJECTIVE Ht 4' 10 (1.473 m) Wt 180 lb (81.6 kg) BMI 37.62 kg/m? Ortho Exam Focused Exam of the LEFT Upper Extremity Skin: Ulnar gutter based mitten cast intact about the left upper extremity that includes the left small, ring, and long fingers. Cast is somewhat disheveled, but remains intact. No evidence of skin breakdown appreciated about the left index, thumb, or forearm outside the confines of the cast. Edema: no evidence of edema about exposed skin. Palpation: Operative ring finger palpation not assessed due to intact cast. Mildly tender to palpation over the medial left elbow. Positive Tinel's of the left elbow. Negative flexion compression of left elbow. Negative for ulnar nerve subluxation of left elbow. ROM: Full functional range of motion of the shoulder and elbow. Functional range of motion of the left index and thumb outside the cast. Other finger range of motion not assessed due to immobilization of intact cast. Stability: no evidence of joint instabilities of elbow outside confines of cast. Motor: Intact in the hand with as much as can be assessed due to intact ulnar gutter cast - able to fire AIN nerve Sensation: Intact to light touch in exposed fingers on left upper extremity. Perfusion: Brisk capillary refill in all 5 digits. Examination of the contralateral upper extremity reveals skin to be warm, dry, and intact. There is no evidence of edema. she has full range of motion without apparent instabilities. There is no apparent tenderness to palpation. Excellent strength without deficit. Normal coordination and sensation throughout her upper extremity. Intact to light touch in all fingers. Easily palpable radial pulse. IMAGING NONE ASSESSMENT 1. Postoperative pain 2. Closed displaced fracture of distal phalanx of left ring finger with routine healing, subsequent encounter PLAN Brittney is recovering relatively well postoperatively. Patient did present today for increased pain and numbness and tingling, however, she does note the numbness and tingling is of the bilateral fingers. Additionally, she states today that most of her pain appears to be originating from her neck, left shoulder, and left elbow. Does not admit to significantly increased pain about the operative left ring finger. There was no concern for neurovascular compromise on ph (more content not included)... [facility] 36on 04-23-2024 36 Called and spoke directly with patient. Notes increased numbness and tingling in the whole hand for the past few days. Has been taking Tylenol consistently. Numbness and tingling seem to get worse with elbow flexion and better with elbow extension. She does feel like she has been resting her elbow down more on objects secondary to having cast. After dangling her elbow to get relief from numbness/tingling, she states it feels like her fingers are going to explode. Does feel like her edema has been worse in recent days than before. Encouraged her to keep it elevated as much as possible, especially with that making her numbness/tingling worse. Told her it could possibly be irritation of the ulnar nerve at the elbow, but offered her a visit with me tomorrow at [place] for us to further evaluate her. She would like to do that. She will continue elevation and consistent Tylenol (cannot take NSAIDs) until then. Kathryn, could you please add her to my schedule at 1pm tomorrow? Thanks, Diana [facility] 36 Called patient back and [facility] for her to give the office a call back. I wanted to get more information about her symptoms. If she calls back and admits to significantly worse numbness and tingling, and significantly more pain than she was having prior to a couple days ago, I was going to offer her to an appt on my schedule tomorrow (04/24) or Tuesday 04/25. If she calls in, please let me know. Thanks, Diana [facility] CNPNon 04-17-2024 ERENDIRAN Telephone (NIQ) BRITTNEY [id number]) 1975 F NFR Date Time Provider Department 04/17/24 QUEENIE SPARKS During your visit today, we recorded the following information about you: Germaine Sutherland 04/17/2024 10:42 AM Signed Patient is calling in regards to scheduling infusion appointments for 06/09,06/10, 06/11 as she will be getting Botox done on 06/11 Ginette Washington 05/09/2024 2:07 PM Signed Patient is scheduled Allergies As of Date: 04/17/2024 Noted Allergy Reaction CITALOPRAM HYDROBROMIDE 10/27/2004 10 - Anaphylaxis Comments: TACHYCARDIA MORPHINE 01/26/2005 8 - GI Upset AMOXICILLIN 10/24/2004 8 - GI Upset 14 - Other: See Comments Comments: Makes me worse ASA (SALICYLATES) 10/27/2004 4 - Hives CHOCOLATE 10/27/2004 EFFEXOR (VENLAFAXINE HCL) 10/27/2004 11 - Vomiting NAPROXEN 02/16/2006 5 - Intolerance Comments: Depression PENICILLIN G 09/08/2021 8 - GI Upset TAPE (ADHESIVE TAPE-SILICONES) 01/27/2021 14 - Other: See Comments Comments: Rash TOMATO 12/21/2020 5 - Intolerance Comments: If cooked cant tolerate them TRAMADOL 10/24/2004 8 - GI Upset TRAZODONE 08/28/2017 1 - Mental Status Change Comments: Causes hallucinations VENLAFAXINE 12/13/2015 16 - Unknown Date Reviewed: 03/13/2024 Reviewed by: Wm Barr, USHA - Fully Assessed Reason for Visit: Appointment [186] Infusion [464] Prescriptions as of 05/09/2024 - loratadine (CLARITIN) 10 mg tablet Take 1 tablet by mouth once daily. - lansoprazole (PREVACID) 30 mg capsule Take 1 capsule by mouth two times a day. - gabapentin (NEURONTIN) 800 mg tablet Take 1 tablet by mouth four times daily for 180 days. - ondansetron orally disintegrating (ZOFRAN ODT) 8 mg disintegrating tablet Take 1 tablet by mouth every 8 hours as needed for nausea/vomiting. - rimegepant (NURTEC ODT) 75 mg disintegrating tablet Take 1 tablet at onset of headache/migraine. Only take 1 tablet as single dose in 24 hour period. - albuterol HFA (PROVENTIL HFA, VENTOLIN HFA) 90 mcg/actuation inhaler Inhale 2 Puffs as instructed every 4 hours as needed for wheezing/shortness of breath. - mirabegron (MYRBETRIQ) 50 mg Tb24 Take 1 tablet by mouth once daily. - fremanezumab-vfrm subcutaneus auto-injector 225 mg/1.5 mL (AJOVY) Inject 1.5 mL subcutaneously once every month. Do not shake. - simvastatin (ZOCOR) 20 mg tablet Take 2 tablets by mouth daily at bedtime. - MEDICATION, NON-DATABASE Marijuana for migraines Facility-Administered Medications as of 05/09/2024 - onabotulinum toxin type A 200 Units injection (BOTOX) Problem List As Of Date 04/17/2024 Noted Resolved Supervision of other normal [Z34.80] 01/26/2005 01/06/2016 CELLULITIS FINGER,PARONYCHIA/ONYCH IA [L03.019] 12/12/2005 01/06/2016 Viral warts, unspecified [B07.9] 12/12/2005 01/06/2016 VISUAL LOSS, ONE EYE NOS [H54.60] 09/17/2006 Pain in joint, lower leg [M25.569] 09/08/2011 01/06/2016 Pain in joint, pelvic region and thigh [M25.559]09/08/2011 01/06/2016 Carpal tunnel syndrome, left [G56.02] 05/09/2012 Right knee pain [M25.561] 06/30/2014 Diverticulosis of intestine without bleeding [K*11/10/2015 Amenorrhea, unspecified [N91.2] 07/20/2015 Leiomyoma of uterus, unspecified [D25.9] 10/07/2015 Major depressive disorder, single episode, unsp*06/15/2015 Pain in right shoulder [M25.511] 10/12/2015 Unspecified asthma, uncomplicated [J45.909] 06/15/2015 Gastro-esophageal reflux disease without esopha*12/13/2015 Anxiety [F41.9] 12/13/2015 Left ovarian cyst [N83.202] 12/13/2015 History of drug abuse [F19.11] 12/13/2015 History of migraine [Z86.69] 12/13/2015 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] 12/13/2015 Kidney stone [N20.0] 12/13/2015 History of seizure [Z87.898] 12/13/2015 History of renal cell cancer [Z85.528] 01/06/2016 Renal neoplasm [D49.519] 04/27/2016 Occipital neuralgia of right side [M54.81] 08/15/2016 Eustachian tube dysfunction, bilateral [H69.93] 10/11/2016 Lumbar radiculopathy [M54.16] 10/11/2016 Leg weakness, bilateral [R29.898] 10/11/2016 Chronic bilateral low back pain with bilateral *10/11/2016 Chronic right-sided thoracic back pain [M54.6, *10/11/2016 Paresthesia of bilateral legs [R20.2] 10/11/2016 Osteoarthritis of spine with radiculopathy, lum*12/20/2016 Obesity, Class III, BMI >= 40 (morbid obesity) *01/12/2017 Migraine with aura, not intractable, without st*01/12/2017 Intervertebral disc disorder with radiculopathy* 8 Jaw pain [R68.84] 03/23/2017 Low back pain with left-sided sciatica [M54.42] 03/23/2017 Low back pain with right-sided sciatica [M54.41]03/23/2017 Other intervertebral disc degeneration, thoraci*03/23/2017 Pleurodynia [R07.81] 03/23/2017 Syncope and collapse [R55] 03/23/2017 Chronic migraine without aura, intractable, wit*04/10/2017 Intractable chronic post-traumatic headache [G4*04/10/2017 C (more content not included)... Normal [facility] Cerv Spine 4 or 5 Viewson Cerv Spine 4 or 5 Views [facility] Imaging Services [address] [place] [address] Cerv Spine 4 or 5 Views MR#: [id number] Acct: [id number] Name: BRITTNEY ALCOCER Rep #: [id number] : 1975 F 49 From: Asim Moody MD PCP: GILA Baptiste Status: DEP AMB Study: Cerv Spine 4 or 5 Views Date of Exam: 04/17/24 Exam# [id number] Ordering Dr: Brit Ramsey EXAM: XR Cervical Spine Flexion/Extension Only, 2 or 3 Views CLINICAL INDICATION: CHRONIC PAIN TECHNIQUE: Lateral flexion/extension views of the cervical spine. COMPARISON: No relevant prior studies available. FINDINGS: VERTEBRAE: Unremarkable. Normal alignment. No fracture or significant dynamic instability. DISC SPACES: No acute findings. No significant narrowing. SOFT TISSUES: Unremarkable. RAD/Cerv Spine 4 or 5 Views IMPRESSION: No fracture or significant dynamic instability. Reading [facility] CC: LOAN COUNSELOR-C Cristobal Otoole; SHAHZAD Caal Brick Picker: Signed Normal [facility] Orthopedic Visit Reporton Orthopedic Visit Report [facility] [address] [place] [address] OFFICE VISIT Date of Service: 04/17/24 MR#: [id number] Acct: [id number] Name: BRITTNEY ALCOCER Rep #: [id number] : 1975 Provider: SHAHZAD Caal Age/Sex: 49/F Location: [facility] Status: Signed Intake Vital Signs 02/22/24 08:04 Height 4 ft 10 in Weight: 184 lb 4 oz BMI 38.5 Intake Visit Reasons: LUMBAR SPINE Allergies adhesive tape Allergy (Verified 04/17/24 08:58) Rash amoxicillin (Amoxicillin) Allergy (Verified 04/17/24 08:58) Anaphylaxis aspirin (ASA) Allergy (Verified 04/17/24 08:58) Other chocolate flavor Allergy (Verified 04/17/24 08:58) Anaphylaxis citalopram hydrobromide (From Celexa) Allergy (Verified 04/17/24 08:58) Anaphylaxis naproxen (From Naprosyn) Allergy (Verified 04/17/24 08:58) Anaphylaxis tomato (Tomato) Allergy (Verified 04/17/24 08:58) Rash venlafaxine HCl (From Effexor) Allergy (Verified 04/17/24 08:58) Anaphylaxis acetaminophen (From Tylenol-Codeine #3) Adverse Reaction (Verified 04/17/24 08:58) Other codeine phosphate (From Tylenol-Codeine #3) Adverse Reaction (Verified 04/17/24 08:58) Other milk Adverse Reaction (Verified 04/17/24 08:58) Nausea morphine Adverse Reaction (Verified 04/17/24 08:58) Unknown tramadol Adverse Reaction (Verified 04/17/24 08:58) Other Medications ???Medication ???Instructions ???Recorded ???Confirmed ???Type loratadine 10 mg tablet 10 mg PO DAILY 08/27/18 04/17/24 H istory albuterol sulfate 90 mcg/actuation 1 - 2 puff inhalation Q4H PRN MA N 09/02/18 04/17/24 History aerosol inhaler Sob /Or Wheezing ondansetron 4 mg disintegrating 8 mg PO Q12H PRN PRN Nausea 04/17/24 History tablet acetaminophen 500 mg tablet 500 mg PO PRN PRN Pain Or Fever 04/17/24 History gabapentin 800 mg tablet 800 mg PO 4X/DAY 12/02/18 04/17/24 History fremanezumab-vfrm 225 mg/1.5 mL 225 mg subcut QMONTH 02/22/2404/05 History subcutaneous auto-injector (Ajovy) lansoprazole 30 mg capsule,delayed 30 mg PO QDAY 02/22/24 04/17/24 History release mirabegron 50 mg tablet,extended 50 mg PO QDAY 02/22/24 04/17/24 Hi story release 24 hr rimegepant 75 mg disintegrating 75 mg PO ONCE PRN 02/22/24 5 History tablet (Nurtec ODT) simvastatin 20 mg tablet 20 mg PO QDAY 02/22/24 04/17/24 Hi story PFSH Medical History History of kidney cancer Heart attack Right shoulder pain Depression Leiomyoma Diverticulosis Carpal tunnel syndrome Surgical History History of hysterectomy history excision wart third finger right hand ( 09/03/18) s/p left leg surgery Status post carpal tunnel release History of partial nephrectomy S/P excision of lipoma S/P laparoscopic cholecystectomy S/P section Social History household members: significant other Smoking Status: Current every day smoker tobacco type: cigarettes alcohol intake: current alcohol intake frequency: a few times a week substance use type: marijuana HPI LUMBAR SPINE Details: This documentation accurately reflects the service provided and the decisions made by me, SHAHZAD Caal 04/17/24 0855. Part of today???s visit was documented by Elizabeth FERGUSON, acting as scribe. BRITTNEY ALCOCER is a 49 year old F here today for cervical spine MRI review. Patient denies any changes. Goes by [facility]. Says that she continues to have left sided shoulder pain. Since the last time that she saw me she has had a surgery on one of her left fingers. The stated that the pain in her left shoulder makes it difficult for her to complete tasks at work. She has a history of migraines and takes 800 mg gabapentin 4 times a day. HPI from 02/22/24: BRITTNEY ALCOCER is a 49 year old F here today NEW patient for low back pain. She has been having the pain for 2 months, She states that she has been going to physical therapy for her legs because she has a hard time standing for long periods of time. She states that she used to be able to stand for 2-3 hours at a time but bow she can only stand 5 minutes. Patient says though that her biggest complaint is pain between her shoulder blades when lifting an item. She says that this pain then radiates into her bilateral arms with the left being worse all the way to her fingers. She denies a certain location for this pain in her arm and says it is the entire arm. She also says that she has noticed worsening balance over the last several years. Says that she feels unsteady on her feet and that she is wobbly when she walks. She has not used any assistive ambulatory device. Physical therapy is helpin (more content not included)... Normal [facility] Office Visiton 04-11-2024 Follow-up visit [id number] Brittney Alcocer 1975 F Date Provider Department Center 04/11/2024 [id number] MEDEIROS [facility] None No family history on file Level of Service:08169 MA POSTOP FOLLOW UP VISIT RELATED TO ORIGINAL PX Reason for Visit and Comments: Follow-up [757534] - Left distal phalanx ring finger fx cast check Normal [facility] Progress Noteon 04-11-2024 Progress Note --- Attestation signed by Trent Alas MD at 04/15/2024 10:27 PM Patient was seen and evaluated in conjunction with Diana Medeiros PA-C. Agree with above assessment and plan. Trent Alas MD Orthopedic Hand and Upper Extremity Surgery [facility] Department of Orthopaedics [facility] - [address] [place] [id number] Dept: [phone] Dept 04/11/24 Chief Complaint Patient presents with Follow-up Left distal phalanx ring finger fx cast check Subjective: Brittney is here today for a cast change due it subjectively being too tight. Brittney is approximately 1 day s/p ulnar gutter cast placement. She is 10 days s/p closed reduction percutaneous pin fixation of left ring finger after a closed displaced left ring finger distal phalanx fracture. Pain is minimal. Pt is currently taking no medications for pain. Patient presents the office today for a cast change. I applied an ulnar gutter-based mitten cast on 04/10/2024. Yesterday I encouraged the patient to call the office should she begin experiencing numbness and tingling of her fingers that was new in nature, and she messaged in early this morning stating she felt increased numbness and tingling in the left ring finger, as well as numbness and tingling in her small finger. Denies drainage from her pin sites to her knowledge, fevers, chills, or other signs of infection. She has no other concerns today. Objective: Ht 4' 10 (1.473 m) Wt 180 lb (81.6 kg) BMI 37.62 kg/m? Ortho Exam Focused Exam of the LEFT Upper Extremity Skin: intact without any evidence of breakdown. Cast was removed and affected joint and skin inspected. Skin: clean/dry/intact, unremarkable. Incision(s): 2 percutaneous [address] wires in place. No evidence of drainage, surrounding erythema, increased edema, or other signs of infection noted about K wire sites. Local swelling is mild. Sensation intact to light touch in all fingers. ROM: full functional ROM of the shoulder, elbow, wrist, and hand. Left ring finger range of motion: Able to demonstrate flexion at MCP and PIP joint. Full finger extension. Stability: no evidence of joint instabilities Motor: Intact in the hand - able to fire AIN, PIN, and Ulnar nerves Perfusion: Brisk capillary refill in all 5 digits Examination of the contralateral upper extremity reveals skin to be warm, dry, and intact. There is no evidence of edema. She has full range of motion without apparent instabilities. There is no apparent tenderness to palpation. Excellent strength without deficit. Normal coordination and sensation throughout her upper extremity. Easily palpable radial pulse. Assessment 1. Closed displaced fracture of distal phalanx of left ring finger with routine healing, subsequent encounter Plan New ulnar gutter-based mitten cast applied to left upper extremity. Patient was educated on proper use and application, how to keep clean and dry, and had no further questions. She will follow-up on 05/08/2024 as previously scheduled. Patient was instructed to call the office with any concerns or questions regarding casting. Applied by: TASHI Medeiros PA-C to Dr. Trent Alas Orthopaedic Surgery Hand and Upper Extremity F/u as previously scheduled with managing provider. No follow-ups on file. [facility] 37on 04-10-2024 37 CAST CARE INSTRU[employer]IO DORIS The Do NOTS for cast care DO NOT GET YOUR CAST WET! Do not pull the padding out from inside your cast. Do not place anything inside the cast, even for itchy areas. Sticking items inside the cast can cause problems with the skin and lead to infection. Do not use the cast as a weapon The DOs for cast care Swelling of the limb can occur for several days or 1-2 weeks after the application of a cast, soKeep the leg or arm ELEVATED above the heart as much as possible. Keep the leg or arm ELEVATED 20 minutes every hour you are awake Ice helps keep the swelling down. Apply a bag of ice (or a bag of frozen vegetables) covered with a thin towel to the cast for 20 minutes every two hours while awake. Do not apply ice directly to the skin. Keep the cast clean and dry Do use a hairdryer on cool for itching relief, NEVER warm air. Move the fingers or toes on a daily basis When to be concerned The cast got wet The cast is slipping off There is increased swelling above or below the cast The cast feels very tight, your fingers or toes are numb in the cast You smell a bad odor coming from the cast Fingers or toes are turning blue/rowell or having tingling/numbness Please call our office with any questions or concerns Sunday through Sunday 8am to 4:30pm [phone] After hours please call or go the ER [facility] Office Visiton 04-10-2024 Follow-up visit [id number] Brittney Alcocer 1975 F Date Provider Department Center 04/10/2024 [id number] MEDEIROS [facility] None No family history on file Level of Service:11657 MA POSTOP FOLLOW UP VISIT RELATED TO ORIGINAL PX Reason for Visit and Comments: Post-op [483] - DOS 04/01/24/ Closed reduction percutaneous pinning left ring finger distal phalanx fracture [facility] Progress Noteon 04-10-2024 Progress Note --- Attestation signed by Trent Alas MD at 04/11/2024 6:42 PM Patient was seen and evaluated in conjunction with Diana Medeiros PA-C. Agree with above assessment and plan. Trent Alas MD Orthopedic Hand and Upper Extremity Surgery [facility] Department of Orthopaedics [facility] [place] [address] [place] [address] [place] [address] Dept: [phone] Dept 04/10/2024 Chief Complaint Patient presents with Post-op DOS 04/01/24/ Closed reduction percutaneous pinning left ring finger distal phalanx fracture SUBJECTIVE Brittney is approximately 9 day(s) s/p Closed reduction percutaneous pinning left ring finger distal phalanx fracture . Pain is moderate. She is taking hydrocodone for pain relief. She admits to intermittent numbness and tingling of the left ring finger. She denies drainage from her incision. She denies significant complaints other than the expected amount of pain other than finger spasms. Patient presents the office today for follow-up after closed reduction percutaneous pinning of the left ring finger distal phalanx fracture on 04/01/2024. Patient is subjectively doing better since her previous visit on 04/04/2024, where unfortunately she was having significant postoperative pain. Does admit to intermittent numbness and tingling about the left ring finger, as well as edema about the finger. Denies drainage from her pin sites, fevers, chills, or other signs of infection. Patient has no other significant complaints today. OBJECTIVE Ht 4' 10 (1.473 m) Wt 180 lb (81.6 kg) BMI 37.62 kg/m? Ortho Exam Focused Exam of the LEFT Upper Extremity Skin: intact without any evidence of breakdown. Percutaneous K-wires intact. See clinical images below. Clinical Images: Edema: mild edema surrounding the left ring finger Palpation: tender to palpation over the right finger distal phalanx near fracture site ROM: full functional ROM of the shoulder, elbow, wrist, and hand. Finger ROM decreased secondary to stiffness. Active flexion and extension noted about all fingers except for left right finger DIP joint secondary to K-wire placement Stability: no evidence of joint instabilities Motor: Intact in the hand - able to fire AIN, PIN, and Ulnar nerves Sensation: Intact to light touch in all fingers Perfusion: Brisk capillary refill in all 5 digits IMAGING LEFT Ring Finger 2V taken today in the office and reviewed by myself that demonstrate 2 K-wires across the DIP joint of the ring finger that are in similar alignment when compared to previous imaging on 04/03/2024, as well as intraoperative imaging on 04/01/2024. No evidence of hardware migration appreciated. Fracture remains in similar alignment when compared to previous imaging. No other acute osseous or soft tissue abnormalities appreciated. ASSESSMENT 1. Closed displaced fracture of distal phalanx of left ring finger with routine healing, subsequent encounter XR hand 3+ views left PLAN Brittney is doing better today than at her previous visit on 04/04/2024. Patient was having significant postoperative pain at her previous visit, but states pain is more manageable at this point. Does admit to intermittent numbness and tingling about the radial and ulnar side of the left ring finger. She was counseled this could likely be due to her edema that is still present about the surgical finger. Denies drainage from her K wire sites, fevers, chills, or other signs of infection. She was placed into a well-padded ulnar gutter based mitten cast to include the small, ring, and long fingers of the left hand in the office today. Cast care instructions given today. She was educated to remain nonweightbearing about her left upper extremity until her next visit in 4 weeks. Patient is hoping to return to work tomorrow (04/11/2024) and would like a note today stating her restrictions. Note was given today stating she can return to light duty with the following restrictions: nonweightbearing about the left upper extremity and keep the cast clean and dry and on at all times. All questions were answered to the best my ability. Patient verbalized understanding and is agreeable with the plan. Immobilization: Ulnar gutter-based mitten cast - Finger ROM encouraged. Cast care instructions given Weight Bearing: Non Weight Bearing Rehabilitation: NO formal rehabilitation required at this point. Follow-up: Brittney will followup with me in 4 weeks for repeat x-rays and pin removal. She knows to call the office with any questions or concerns in the interim. Future Imaging: LEFT Hand 3V OOC Francine Medeiros PA-C to Dr. Trent Alas Orthopaedic Surgery Hand and Upper Extremity Electronically signed by Diana Medeiros PA-C on (more content not included)... Normal [facility] XR Hand - left 3 Viewson FINDINGS/IMPRESSION: Stable appearance of the fourth finger distal phalanx/interphalangeal joint, with 2 K wires which extend into the midportion of the middle phalanx. The distal phalanx fracture remains lucent but in stable position. Report Dictated on Electronically Signed By: Carlos Dominguez MD Electronically Signed Date/Time: 04/10/2024 12:58 PM [facility] Patient Name: BRITTNEY MORA : 1975 Exam Date/Time: 04/10/2024 09:03 Procedure: XR HAND 3+ VIEWS LEFT Ordering Provider: MEDEIROS KATELYN Reason For Exam: Left hand pain Left hand CLINICAL INDICATION: Pain TECHNIQUE: Three views of the left hand COMPARISON: April 03, 2024 [facility] Carlos Dominguez MD - 04/10/2024 Patient Name: BRITTNEY ALCOCER : 1975 Exam Date/Time: 04/10/2024 09:03 Procedure: XR HAND 3+ VIEWS LEFT Ordering Provider: MEDEIROS KATELYN Reason For Exam: Left hand pain Left hand CLINICAL INDICATION: Pain TECHNIQUE: Three views of the left hand COMPARISON: April 03, 2024 IMPRESSION: FINDINGS/IMPRESSION: Stable appearance of the fourth finger distal phalanx/interphalangeal joint, with 2 K wires which extend into the midportion of the middle phalanx. The distal phalanx fracture remains lucent but in stable position. Report Dictated on Electronically Signed By: Carlos Dominguez MD Electronically Signed Date/Time: 04/10/2024 12:58 PM EST [facility] Radiology Study observation (narrative) [facility] XR Hand - left 3 ViewsOrdere d By: Carlos Dominguez on 04-10-2024 [facility] Work Phone: Consulton 04-04-2024 Consult --- Attestation signed by Trent Alas MD at 04/04/2024 11:12 AM Patient discussed with on-call resident and agree with assessment and plan. Patient will follow-up with me today in office as well. Trent Alas MD Orthopedic Hand and Upper Extremity Surgery [facility] Department of Orthopaedics Ortho Progress Note Patient: Brittney Alcocer Date of : 1975 Acct: [id number] PCP: CRISTOBAL OTOOLE Date of Admission: 04/03/2024 Date of Service: Pt seen/examined on 04/04/2024 SUBJECTIVE: Pt is s/p Closed reduction and percutaneous pin fixation of left ring finger displaced distal phalanx fracture. Presents to Ed for increased pain and throbbing. Denies drainage from her finger. [place] fevers, chills, chest pain, SOB, nausea, vomiting. Denies new numbness and tingling in the extremities but endorses numbness to the ulnar side of the L RF which she states has been present since surgery. States her post op splint was removed at first ed prior to transfer to [facility]. OBJECTIVE: General: alert and oriented to person, place and time, well-developed and well-nourished, in no acute distress VITALS: BP 132/69 (BP Location: Right arm, Patient Position: Sitting) Pulse 68 Temp 37.1 ?C (98.7 ?F) (Oral) Resp 18 Ht 1.473 m (4' 10) Wt 81.6 kg (180 lb) SpO2 97% BMI 37.62 kg/m? MSK exam: LUE Dressing: removed. Finger is C/D/I with sponge and button in place at distal dorsal tip. Mild swelling consistent with expected POD3 changes Splint is absent. SILT A/R/U/M AIN/PIN/Ulnar intact Radial pulse palpable; brisk capillary refill to fingers 2 point discrimination is >10 mm in all digits bilaterally. Lab Results Component Value Date WBC 6.8 04/03/2024 HGB 15.0 04/03/2024 HCT 44.2 04/03/2024 PLT 227 04/03/2024 AST 19 01/02/2020 NA 143 04/03/2024 K 4.0 04/03/2024 CL 110 (H) 04/03/2024 CREATININE 0.78 04/03/2024 BUN 12 04/03/2024 CO2 26 04/03/2024 INR 1.0 04/03/2024 Results from last 7 days Lab Units 04/03/242024 CRP mg/L 0.6 Results from last 7 days Lab Units 04/03/242024 SED RATE mm/hr 23* No results found for: RH, LABANTI Pt re-placed in volar resting splint to protect finger. Pt tolerated the procedure well. Pt also advised to ice, elevate and rest the extremity. ASSESSMENT AND PLAN: This is a 49 y.o. female s/p Closed reduction and percutaneous pin fixation of left ring finger displaced distal phalanx fracture 04/01 -splint replaced in [facility] ED -pt advised that throbbing pain, can be normal postoperatively -pt advised that if she needs additional pain medication she may need to see pain management for longer term prescription -pt given return precautions including signs of infection for return to [facility] ED POST OPERATIVE PLAN -Maintain splint till post-op visit 10-14 days post op -NWB operative extremity, OK for immediate range of motion of un-splinted joints/fingers as tolerated -Pain control as outlined in discharge instructions -Ok to remove splint immediate post op visit, leave pin in place -3V operative hand x-rays out of splint at immediate postop visit Renea Lozano MD Orthopaedic Surgery PGY-1 Epic Chat Patient was independently seen and examined by me and I independently reviewed the imaging. Agree with the clinical history, exam, assessment, and plan as described above. Ning Mendenhall MD MPH PGY-3 Orthopedic Surgery 04/04/2024 1:30 AM Normal [facility] ED Nursing Noteon 04-04-2024 ED Nursing Note Ortho at bedside Normal [facility] Office Visiton 04-04-2024 Follow-up visit [id number] Brittney Alcocer 1975 F Date Provider Department Center 04/04/2024 [id number] ALAS [facility] OR None No family history on file Level of Service:12980 MA POSTOP FOLLOW UP VISIT RELATED TO ORIGINAL PX Reason for Visit and Comments: Post-op [483] - closed reduction percutaneous pinning of Left ring finger DOS 04/01/24 Normal [facility] Progress Noteon 04-04-2024 Progress Note [facility] [place] [facility] [address] [place] [id number] Dept: [phone] Dept 04/04/2024 Chief Complaint Patient presents with Post-op closed reduction percutaneous pinning of Left ring finger DOS 04/01/24 SUBJECTIVE Brittney is approximately 3 day(s) s/p closed reduction percutaneous pinning of Left ring finger . Pain is 10/10 reported from being seen in ED 04/03/24 and reports 10/10 . She is taking tylenol for pain relief. She was given Dilaudid in ED and says it made her sick and dehydrated from throwing up multiple times yesterday. She admits to numbness and tingling in left index finger . She denies drainage from her pin sites. She complains of severe pain in left index finger and getting sick from the pain meds in the ED. She has maintained her splint since her ED visit yesterday. She denies any recent injuries since surgery. Having a significant amount of pain about left index finger despite taking Tylenol and [place] for pain. Cannot take NSAIDs. No other concerns noted by patient at this time. OBJECTIVE Ht 4' 10 (1.473 m) Wt 180 lb (81.6 kg) BMI 37.62 kg/m? Ortho Exam Focused Exam of the LEFT Upper Extremity Skin: intact without any evidence of breakdown, pin sites about distal aspect of ring finger intact without drainage minimal erythema about pin sites. See clinical image from 04/03 Edema: moderate edema surrounding the left ring finger surrounding the distal phalanx and DIP joint and middle phalanx Palpation: tender to palpation over the distal aspect of the ring finger ROM: full functional ROM of the shoulder, elbow, wrist, and hand except for limited range of motion about left ring finger DIP and PIP joint, no obvious rotational abnormalities noted about left ring finger Stability: no evidence of joint instabilities Motor: Intact in the hand - able to fire AIN, PIN, and Ulnar nerves Sensation: normal in the median, ulnar, and radial nerve distributions aside from mildly diminished about the distal aspect of the left ring finger Perfusion: Brisk capillary refill in all 5 digits IMAGING LEFT Hand 3V 04/03/24 reviewed independently by myself and demonstrate patient's left ring finger distal phalanx fracture to be in similar alignment to intraoperative x-rays with 2 K wires providing fixation in similar alignment to intraoperative x-rays as well without signs of significant hardware migration or breakage or change in fracture alignment ASSESSMENT 1. Postoperative pain HYDROcodone-acetaminoph en ([place]) 5-325 MG tablet 2. Closed displaced fracture of distal phalanx of left ring finger with routine healing, subsequent encounter HYDROcodone-acetaminoph en ([place]) 5-325 MG tablet PLAN Brittney status post left ring finger closed reduction and percutaneous pin fixation 04/01/2024. Patient having difficulties with pain control postoperatively. X-rays and clinical exam reassuring. Did recommend patient be placed back into a splint today. Recommended aggressive elevation of left upper extremity. Recommended continue pain control with Tylenol and patient was given a new prescription for [place] as well, to use for severe breakthrough pain as needed. Immobilization: Patient placed a plaster ulnar gutter splint Weight Bearing: Weight Bearing As Tolerated Rehabilitation: NO formal rehabilitation required at this point. Follow-up: Brittney will followup with / Waldemar in 1 weeks at previously scheduled postop appointment. She knows to call the office with any questions or concerns in the interim. Future Imaging: LEFT Hand 3V RODRÍGUEZ Alas MD Orthopedic Hand and Upper Extremity Surgery [facility] Department of Orthopaedics 04/04/2024 at 10:27 AM (Please note that portions of this note may have been completed with a voice recognition program. Efforts were made to edit the dictations but occasionally words are mis-transcribed.) Normal [facility] 36on 04-03-2024 36 Spoke with patient o n phone , patient sounded under the weather, I advised patient that we can see her in office tomorrow but if she cannot wait that long to be seen and her pain is that severe than she would need to follow up with the ED , patient verbalized understanding of my recommendations and elected to give it another day or so and will go to the ED if pain does not decrease. I again confirmed with her that she is electing NOT to be seen in clinic tomorrow and that she will observe her symptoms over the next couple of days and proceed from there and she again verbalized understanding. Normal [facility] 36 Situation: Patient called orthopedic nurse triage line and spoke with Lindsey Poe RN regarding pain in hand and feeling of pins and needles. Background: Brittney is approximately 2 day(s) s/p closed reduction percutaneous pinning left ring finger distal phalanx fracture with Dr. Alas Assessment: Brittney complains of new symptoms to include throbbing, aching pain in her hand. Feeling of pins and needles. Stated taking [place] and Tylenol is not helping. Currently pain is moderate. Brittney is taking [place] for pain relief. acetaminophen every 6 hours Brittney admits to new numbness and tingling. Pin and needles feeling Incision is covered , Brittney denies drainage from her incision. Capillary refill: 3 seconds Erythema: No Swelling: No Effusion: No Recommendation: Telephone encounter sent to clinical staff provider to advise Normal [facility] BASIC METABOLIC PANELon 02-2 Anion gap [Moles/Vol] 7 mmol/L Normal 3-13 [facility] Comment on above: Performed By: #### L AB149, LAB15 ####Mining Technician: LAURA MOSQUERA ([id number])[facility] [place] [facility] (SWRLAB)[address] [place] [address] Calcium [Mass/Vol] 9.5 mg/dL Normal 8.4-10.2 [facility] Comment on above: Performed By: #### L AB149, LAB15 ####Mining Technician: LAURA MOSQUERA ([id number])[facility] [place]TMAN (SWRLAB)[address] [place] [address] Chloride [Moles/Vol] 110 mmol/L High 98-107 [facility] Comment on above: Performed By: #### L AB149, LAB15 ####Mining Technician: LAURA MOSQUERA ([id number])[facility] [place]TMAN (SWRLAB)[address] [place] [address] CO2 [Moles/Vol] 26 mmol/L Normal 22-29 [facility] Comment on above: Performed By: #### L AB149, LAB15 ####Mining Technician: LAURA MOSQUERA ([id number])[facility] K[place] RITTMAN (SWRLAB)[address] [place] [address] Creatinine [Mass/Vol] 0.78 mg/dL Normal 0.57-1.11 [facility] Comment on above: Performed By: #### L AB149, LAB15 ####Mining Technician: LAURA MOSQUERA ([id number])[facility] K[place]TMAN (SWRLAB)[address] [place] [address] GLOMERULAR FILTRATION RATE ML/MIN/1.73 SQ M.PREDICTED >90.0 Normal >60.0 [facility] Comment on above: Result Comment: Calc ulation based on the Chronic Kidney Disease Epidemiology Collaboration (CKD-EPI) equation refit without adjustment for race Performed By: #### L 149, LAB15 ####Mining Technician: LAURA MOSQUERA ([id number])[facility] FERRAROTMAN (SWRLAB)[address] Glucose [Mass/Vol] 90 mg/dL Normal 74-100 [facility] Comment on above: Performed By: #### L 149, LAB15 ####Mining Technician: LAURA MOSQUERA ([id number])[facility] FERRAROT[facility] (SWRLAB)[address] Potassium [Moles/Vol] 4.0 mmol/L Normal 3.5-5.1 [facility] Comment on above: Result Comment: [facility] potassium values may be up to 0.5 mmol/L lower than serum values. Performed By: #### L CARLOS, LAB15 ####Mining Technician: LAURA MOSQUERA ([id number])[facility] FERRAROTMAN (SWRLAB)[address] Sodium [Moles/Vol] 143 mmol/L Normal 136-145 [facility] Comment on above: Performed By: #### L 149, LAB15 ####Mining Technician: LAURA MOSQUERA ([id number])[facility] FERRAROTMAN (SWRLAB)[address] Urea nitrogen [Mass/Vol] 12 mg/dL Normal 8-21 [facility] Comment on above: Performed By: #### L AB149, LAB15 ####Mining Technician: LAURA MOSQUERA ([id number])[facility] KHAN[place] RITTMAN (SWRLAB)[address] Basic metabolic 1998 panelon 04-03-2024 Anion gap [Moles/Vol] 7 mmol/L 3 - 13 mmol/L [facility] Calcium [Mass/Vol] 9.5 mg/dL 8.4 - 10. 2 mg/dL [facility] Chloride [Moles/Vol] 110 mmol/L High 98 - 10 7 mmol/L [facility] CO2 [Moles/Vol] 26 mmol/L 22 - 29 mmol/L [facility] Creatinine [Mass/Vol] 0.78 mg/dL 0.57 - 1.11 mg/dL [facility] GFR/1.73 sq M.predicted (S/P/Bld) [Vol rate/Area] - PINF [facility] Comment on above: Calculation based on the Chronic Kidney Disease Epidemiology Collaboration (CKD-EPI) equation refit without adjustment for race Glucose [Mass/Vol] 90 mg/dL 74 - 100 mg/dL [facility] Interpretation and review of laboratory results Abnormal [facility] Potassium [Moles/Vol] 4 mmol/L 3.5 - 5.1 mmol/L [facility] Comment on above: Plasma potassium janee ues may be up to 0.5 mmol/L lower than serum values. Sodium [Moles/Vol] 143 mmol/L 136 - 145 mmol/L [facility] Urea nitrogen [Mass/Vol] 12 mg/dL 8 - 21 mg/dL [facility] C-REACTIVE PROTEINon 025 CRP [Mass/Vol] 0.6 mg/L Normal <5.[address] [facility] Comment on above: Performed By: #### L AB149, LAB15 ####Mining Technician: LAURA MOSQUERA ([id number])[facility] (SWRLAB)[address] [place] [address] CBC W Auto Differential pane l (Bld)on 04-03-2024 Basophils (Bld) [#/Vol] 0.1 10*3/uL 0.0 - 0.2 10*3/uL [facility] Basophils/100 WBC (Bld) 0.7 % 0.0 - 2.0 % [facility] Eosinophils (Bld) [#/Vol] 0.2 10*3/uL 0.0 - 0.5 10*3/uL [facility] Eosinophils/100 WBC (Bld) 3.1 % 0.0 - 6.0 % [facility] Erythrocyte distribution width (RBC) [Ratio] 13.1 % 11.5 - 15.0 % [facility] Hematocrit (Bld) [Volume fraction] 44.2 % 35.0 - 47.0 % [facility] Hemoglobin (Bld) [Mass/Vol] 15 g/dL 11.7 - 16.0 g/dL [facility] Immature granulocytes (Bld) [#/Vol] 0 10*3/uL NINF - 0.1 10*3/uL [facility] Immature granulocytes/100 WBC (Bld) 0.3 % 0.0 - 2.0 % [facility] Interpretation and review of laboratory results Normal [facility] Lymphocytes (Bld) [#/Vol] 2.8 10*3/uL 1.0 - 4.3 10*3/uL [facility] Lymphocytes/100 WBC (Bld) 40.8 % 15.0 - 45.0 % [facility] MCH (RBC) [Entitic mass] 31.6 pg 26.0 - 34.0 pg [facility] MCHC (RBC) [Mass/Vol] 33.9 % 30.5 - 36.0 % [facility] MCV (RBC) [Entitic vol] 93.2 fL 77.0 - 99.0 fL [facility] Monocytes (Bld) [#/Vol] 0.5 10*3/uL 0.0 - 0.9 10*3/uL [facility] Monocytes/100 WBC (Bld) 7.4 % 5.0 - 13.0 % [facility] Neutrophils (Bld) [#/Vol] 3.2 10*3/uL 1.8 - 7.5 10*3/uL [facility] Neutrophils/100 WBC (Bld) 47.7 % 38.0 - 82.0 % [facility] Nucleated RBC/100 WBC (Bld) [Ratio] 0 % [facility] Platelet mean volume (Bld) [Entitic vol] 9.6 fL 9.0 - 12.7 fL [facility] Comment on above: MPV is a calculated measurement using platelet volume ratio Platelets (Bld) [#/Vol] 227 10*3/uL 140 - 440 10*3/uL [facility] RBC (Bld) [#/Vol] 4.74 10*6/uL 3.80 - 5.2 0 10*6/uL [facility] WBC (Bld) [#/Vol] 6.8 10*3/uL 3.6 - 10.7 10*3/uL [facility] CBC WITH AUTO DIFFERENTIALon 04-03-2024 Basophils (Bld) [#/Vol] 0.1 10*3/uL Normal 0.0-0.2 [facility] Comment on above: Performed By: #### Omar [id number], [id number] ####Mining Technician: LAURA MOSQUERA ([phone])LEANNA KHANNA RITTMAN (SWRLAB)[address] [place] [address] [place] Basophils/100 WBC (Bld) 0.7 % Normal 0.0-2.0 [facility] Comment on above: Performed By: #### Omar [id number], [id number] ####Mining Technician: LAURA MOSQUERA ([phone])[facility] KHANNA RITTMAN (SWRLAB)[address] [place] [address] Eosinophils (Bld) [#/Vol] 0.2 10*3/uL Normal 0.0-0.5 [facility] Comment on above: Performed By: #### Omar [id number], [id number] ####Mining Technician: LAURA MOSQUERA ([phone])[facility] NYGITA RITTMAN (SWRLAB)[address] [place] [address] [place] Eosinophils/100 WBC (Bld) 3.1 % Normal 0.0-6.0 [facility] Comment on above: Performed By: #### Omar [id number], [id number] ####Mining Technician: LAURA MOSQUERA ([phone])[facility] KHANNA RITTMAN (SWRLAB)[address] [place] [address] Erythrocyte distribution width (RBC) [Ratio] 13.1 % Normal 11.5-15.0 [facility] Comment on above: Performed By: #### Omar [id number], [id number] ####Mining Technician: LAURA MOSQUERA ([phone])LEANNA NYWORTH RITTMAN (SWRLAB)[address] [place] [address] Hematocrit (Bld) [Volume fraction] 44.2 % Normal 35.0-47.0 [facility] Comment on above: Performed By: #### L [id number], [id number] ####Mining Technician: LAURA MOSQUERA ([phone])[facility] KHANNA RITTMAN (SWRLAB)[address] [place] [address] Hemoglobin (Bld) [Mass/Vol] 15.0 g/dL Normal 11.7-16.0 [facility] Comment on above: Performed By: #### Omar REYES, [id number] ####Mining Technician: LAURA MOSQUERA ([phone])[facility] KHANNA RITTMAN (SWRLAB)[address] [place] [address] IMMATURE GRANS % 0.3 % Normal 0.0-2.0 [facility] Comment on above: Performed By: #### Omar REYES, [id number] ####Mining Technician: LAURA MOSQUERA ([phone])[facility] KHANNA RITTMAN (SWRLAB)[address] [place] [address] IMMATURE GRANS ABSOLUTE 0.0 10*3/uL Normal <0.1 [facility] Comment on above: Performed By: #### Omar REYES, [id number] ####Mining Technician: LAURA MOSQUERA ([phone])[facility] KHANNA RITTMAN (SWRLAB)[address] [place] [address] Lymphocytes (Bld) [#/Vol] 2.8 10*3/uL Normal 1.0-4.3 [facility] Comment on above: Performed By: #### Omar REYES, [id number] ####Mining Technician: LAURA MOSQUERA ([phone])[facility] KHANNA RITTMAN (SWRLAB)[address] [place] [address] [place] Lymphocytes/100 WBC (Bld) 40.8 % Normal 15.0-45.0 [facility] Comment on above: Performed By: #### L [id number], [id number] ####Mining Technician: LAURA MOSQUERA ([phone])[facility] KHANNA RITTMAN (SWRLAB)[address] [place] [address] [place] MCH (RBC) [Entitic mass] 31.6 pg Normal 26.0-34.0 [facility] Comment on above: Performed By: #### Omar [id number], [id number] ####Mining Technician: LAURA MOSQUERA ([phone])LEANNA KHANNA RITTMAN (SWRLAB)[address] [place] [address] MCHC 33.9 % Normal 30.5-36.0 [facility] Comment on above: Performed By: #### Omar [id number], [id number] ####Mining Technician: LAURA MOSQUERA ([phone])[facility] KHANNA RITTMAN (SWRLAB)[address] [place] [address] MCV (RBC) [Entitic vol] 93.2 fL Normal 77.0-99.0 [facility] Comment on above: Performed By: #### Omar REYES, [id number] ####Mining Technician: LAURA MOSQUERA ([phone])[facility] KHANNA RITTMAN (SWRLAB)[address] [place] [address] Monocytes (Bld) [#/Vol] 0.5 10*3/uL Normal 0.0-0.9 [facility] Comment on above: Performed By: #### Omar [id number], [id number] ####Mining Technician: LAURA MOSQUERA ([phone])[facility] KHANNA RITTMAN (SWRLAB)[address] [place] [address] [place] Monocytes/100 WBC (Bld) 7.4 % Normal 5.0-13.0 [facility] Comment on above: Performed By: #### Omar [id number], [id number] ####Mining Technician: LAURA MOSQUERA ([phone])[facility] KHANNA RITTMAN (SWRLAB)[address] [place] [address] [place] NEUTROPHILS ABSOLUTE 3.2 10*3/uL Normal 1.8-7.5 [facility] Comment on above: Performed By: #### Omar [id number], [id number] ####Mining Technician: LAURA MOSQUERA ([phone])[facility] KHANNA RITTMAN (SWRLAB)[address] [place] [address] [place] Neutrophils/100 WBC (Bld) 47.7 % Normal 38.0-82.0 [facility] Comment on above: Performed By: #### Omar [id number], [id number] ####Mining Technician: LAURA MOSQUERA ([phone])[facility] KHANNA RITTMAN (SWRLAB)[address] [place] [address] NRBC 0.0 /100 WBCs Normal 0.0-2.0 [facility] Comment on above: Performed By: #### Omar [id number], [id number] ####Mining Technician: LAURA MOSQUERA ([phone])[facility] KHANNA RITTMAN (SWRLAB)[address] [place] [address] Platelet mean volume (Bld) [Entitic vol] 9.6 fL Normal 9.0-12.7 [facility] Comment on above: Result Comment: MPV is a calculated measurement using platelet volume ratio Performed By: #### Omar [id number], [id number] ####Mining Technician: LAURA MOSQUERA ([id number])[facility] FERRAROTMAN (SWRLAB)[address] [place] [address] [place] Platelets (Bld) [#/Vol] 227 10*3/uL Normal 140-440 [facility] Comment on above: Performed By: #### Omar [id number], [id number] ####Mining Technician: LAURA MOSQUERA ([phone])[facility] KHANNA RITTMAN (SWRLAB)[address] [place] [address] [place] RBC (Bld) [#/Vol] 4.74 10*6/uL Normal 3.80-5.20 [facility] Comment on above: Performed By: #### L [id number], [id number] ####Mining Technician: LAURA MOSQUERA ([phone])[facility] KHANNA RITTMAN (SWRLAB)[address] [place] [address] [place] WBC (Bld) [#/Vol] 6.8 10*3/uL Normal 3.6-10.7 [facility] Comment on above: Performed By: #### L [id number], [id number] ####Mining Technician: LAURA MOSQUERA ([phone])[facility] GITA ZAVALA (SWRLAB)[address] [place] [address] CRP [Mass/Vol]on 04-03-2024 Interpretation and review of laboratory results Normal [facility] ED Nursing Noteon 04-03-2024 ED Nursing Note Report called to Danuta Villegas RN at this time. Normal [facility] ED Provider Noteon ED Provider Note EMERGENCY DEPARTMENT ENCOUNTER Pt Name: Petar Alcocer Birthdate 1975 Date of evaluation: 04/03/2024 ED Provider: Jose Angel Casas MD CHIEF COMPLAINT Chief Complaint Patient presents with Post-op Problem Pt relates surgery to ring finger on her left hand on Apr 01. Pt relates pain to this hand 11/14. Pt relates she is suppose to get the wrap off her hand on April. HISTORY OF PRESENT ILLNESS (Location/Symptom, Timing/Onset, Context/Setting, Quality, Duration, Modifying Factors, Severity) Note limiting factors. I wore appropriate PPE for the entirety of this encounter. HPI Petar Alcocer is a 49 y.o. who presents to the emergency department with postoperative pain in the left hand ring finger History of heart attack chronic kidney insufficiency, asthma, stroke, hysterectomy surgery, cholecystectomy surgery, smokes, drinks. Patient had a left hand ring finger/fourth digit operation on 04/01/[address] Saucedo of orthopedic/hand surgery. Patient has not sustained a fall or traumatic injury or contusion since then. She has been doing everything she can to take care of her left hand ring finger, has not hit it against anything. She has been taking the medication she was prescribed for pain at home, but she comes in tonight complaining of numbness and tingling and pain and diminished range of motion and worsening pain and worsening swelling of the left hand ring finger. Digits 1, 2, 3, 5 on the left hand are completely normal and are not bothering her. The left wrist is not bothering her. The left forearm and left elbow are not bothering her. Right arm right leg left leg completely normal. No chest pain palpitation shortness of breath abdominal pain. There is no bloody or purulent drainage coming from the left hand ring finger. Upon review of the operative notes, the patient had a left hand ring finger #4 displaced distal phalanx fracture which was operated on on 04/01/2024 with a closed reduction with pins placed. She is due to have the splint removed from her hand on 04/10/2024, the splint is still in place upon arrival. Nursing Notes were reviewed. Limitations to history: None Outside historians: Past medical review in [facility] to obtain collateral history REVIEW OF SYSTEMS Review of Systems Pertinent positives and negatives as per [facility] PAST MEDICAL HISTORY Past Medical History: Diagnosis Date Asthma in childhood Bipolar 1 disorder (HCC) Chronic kidney disease cancer History of heart attack Migraine Myocardial infarction (HCC) PTSD (post-traumatic stress disorder) Seizures (HCC) in childhood Stroke (HCC) Tendonitis SURGICAL HISTORY Past Surgical History: Procedure Laterality Date CARPAL TUNNEL RELEASE Bilateral SECTION, LOW TRANSVERSE x2 CHOLECYSTECTOMY COLONOSCOPY HYSTERECTOMY OTHER SURGICAL HISTORY Left foot and leg OTHER SURGICAL HISTORY Left 04/01/2024 CLOSED REDUCTION PERCUTANEOUS PINNING LEFT RING FINGER DISTAL PHALANX FRACTURE - Left per Dr Alas UPPER GASTROINTESTINAL ENDOSCOPY CURRENT MEDICATIONS Previous Medications ACETAMINOPHEN (TYLENOL) 500 MG TABLET Take 1,000 mg by mouth every 8 hours as needed for mild pain (1-3). AJOVY 225 MG/1.5ML AUTO-INJECTOR Inject 1.5 mL subcutaneously once every month. Do not shake. ALBUTEROL 108 (90 BASE) MCG/ACT INHALER Inhale 2 puffs every 4 hours as needed for wheezing or shortness of breath. ATORVASTATIN (LIPITOR) 40 MG TABLET Take 40 mg by mouth daily. ATORVASTATIN CALCIUM (LIPITOR PO) Take by mouth. CYCLOBENZAPRINE (FLEXERIL) 10 MG TABLET Take 1 tablet (10 mg) by mouth Nightly for 10 days. DIVALPROEX (DEPAKOTE ER) 500 MG 24 HR TABLET With infusion for migraine FAMOTIDINE (PEPCID) 10 MG TABLET Take by mouth. GABAPENTIN PO Take by mouth 4 times daily. HYDROCODONE-ACETAMINOPH EN (NORCO) 5-325 MG TABLET Take 1 tablet by mouth every 6 hours as needed for severe pain (7-10) for up to 2 days. LANSOPRAZOLE (PREVACID) [address] CAPSULE Take 30 mg by mouth 2 times daily. Do not crush or chew. LORATADINE (CLARITIN PO) Take 10 mg by mouth daily. METHYLPREDNISOLONE (MEDROL) 4 MG TABLET Take 4 mg by mouth daily. MYRBETRIQ 50 MG 24 HR TABLET Take 50 mg by mouth daily. ONABOTULINUMTOXINA (BOTOX) 100 UNITS INJECTION Inject into the shoulder, thigh, or buttocks Once. ONDANSETRON (ZOFRAN) 8 MG TABLET Take by mouth as needed for nausea or vomiting. RIMEGEPANT SULFATE (NURTEC) 75 MG TABLET DISPERSIBLE Take by mouth as needed. SIMVASTATIN (ZOCOR) 20 MG TABLET Take 20 mg by mouth 2 times daily. ALLERGIES Chocolate, Citalopram, Naproxen, Amoxicillin, Codeine, Effexor [venlafaxine], Milk (cow), Morphine, Salicylates, Tramadol, Trazodone and nefazodone, Tomato, and Wound dressing adhesive FAMILY HISTORY No family history on file. SOCIAL HISTORY Social History Socioeconomic History Marital status: Tobacco Use Smoking status: Every Da (more content not included)... Normal [facility] ED Provider Note Emergency Department Encounter [facility] EMERGENCY DEPT Patient: Brittney Alcocer : 1975 I independently examined and evaluated Brittney Alcocer. This will serve as my Supervisory note and shared attestation. In brief: Patient sent to this ED for orthopedic evaluation. She had undergone surgery on the left ring finger on 04/01/2024, stating that she has numbness and tingling and pain and diminished range of motion of the finger. Focused exam: Patient is laying in bed no acute distress. The left fourth digit is tender to palpation over the middle phalanx. Did not palpate the distal phalanx. There is trace edema of the left fourth digit without duskiness or cyanosis. Sponge over the fingertip was not removed. Brief ED course/MDM: Sources of history (including external records): I reviewed the orthopedic surgery note from 04/01/2024 indicating that she underwent closed reduction, percutaneous pinning of the left ring finger distal phalanx fracture that had been displaced. Differential diagnoses include postop pain, neurovascular compromise, infection. Orthopedics consulted and felt that this was postoperative pain, recommended outpatient follow-up. Diagnoses as of 04/04/24218 Post-op pain History of hand surgery ED medications managed: Additional IV Dilaudid that she received in our ED I made diagnostic, treatment, and disposition decisions in conjunction with the resident. I also supervised louise portions of any procedures performed by the resident. For all further details of the patient's emergency department visit, please see his/her documentation. MD Binta Multani MD 04/04/24218 [facility] ED Provider Note EMERGENCY DEPARTMENT ENCOUNTER Pt Name: Brittney Alcocer Birthdate 1975 Date of evaluation: 04/03/2024 ED Provider: Alicia Fitzpatrick MD CHIEF COMPLAINT Chief Complaint Patient presents with Post-op Problem Pt relates surgery to ring finger on her left hand on Apr 01. Pt relates pain to this hand 09/14. Pt relates she is suppose to get the wrap off her hand on April. HISTORY OF PRESENT ILLNESS (Location/Symptom, Timing/Onset, Context/Setting, Quality, Duration, Modifying Factors, Severity) Note limiting factors. I wore appropriate PPE for the entirety of this encounter. HPI Brittney Alcocer is a 49 y.o. female who presents to the emergency department for hand pain. Recently underwent surgery of the left fourth digit and had a pin placed for fixation. Presented to [place] ED for worsening postoperative pain and paresthesias. Transferred for orthopedic evaluation. Nursing Notes were reviewed. Limitations to history: Outside historians: REVIEW OF SYSTEMS Review of Systems Pertinent positives and negatives as per HPI. PAST MEDICAL HISTORY Past Medical History: Diagnosis Date Asthma in childhood Bipolar 1 disorder (HCC) Chronic kidney disease cancer History of heart attack Migraine Myocardial infarction (HCC) PTSD (post-traumatic stress disorder) Seizures (HCC) in childhood Stroke (HCC) Tendonitis SURGICAL HISTORY Past Surgical History: Procedure Laterality Date CARPAL TUNNEL RELEASE Bilateral SECTION, LOW TRANSVERSE x2 CHOLECYSTECTOMY COLONOSCOPY HYSTERECTOMY OTHER SURGICAL HISTORY Left foot and leg OTHER SURGICAL HISTORY Left 04/01/2024 CLOSED REDUCTION PERCUTANEOUS PINNING LEFT RING FINGER DISTAL PHALANX FRACTURE - Left per Dr Alas UPPER GASTROINTESTINAL ENDOSCOPY CURRENT MEDICATIONS Discharge Medication List as of 04/04/2024 2:17 AM CONTINUE these medications which have NOT CHANGED Details acetaminophen (Tylenol) 500 MG tablet Take 1,000 mg by mouth every 8 hours as needed for mild pain (1-3)., Historical Med Ajovy 225 MG/1.5ML auto-injector Inject 1.5 mL subcutaneously once every month. Do not shake., Historical Med albuterol 108 (90 Base) MCG/ACT inhaler Inhale 2 puffs every 4 hours as needed for wheezing or shortness of breath., Historical Med !! atorvastatin (Lipitor) 40 MG tablet Take 40 mg by mouth daily., Historical Med !! Atorvastatin Calcium (LIPITOR PO) Take by mouth., Historical Med cyclobenzaprine (Flexeril) 10 MG tablet Take 1 tablet (10 mg) by mouth Nightly for 10 days., Starting Sun05/21/2022, Until Sun05/31/2022, Normal divalproex (Depakote ER) 500 MG 24 hr tablet With infusion for migraine, Starting Gladis 07/12/2023, Historical Med famotidine (Pepcid) 10 MG tablet Take by mouth., Historical Med GABAPENTIN PO Take by mouth 4 times daily., Historical Med lansoprazole (Prevacid) [address] capsule Take 30 mg by mouth 2 times daily. Do not crush or chew., Historical Med Loratadine (CLARITIN PO) Take 10 mg by mouth daily., Historical Med methylPREDNISolone (Medrol) 4 MG tablet Take 4 mg by mouth daily., Historical Med Myrbetriq 50 MG 24 hr tablet Take 50 mg by mouth daily., Starting Sun03/26/2024, Historical Med onabotulinumtoxinA (Botox) 100 units injection Inject into the shoulder, thigh, or buttocks Once., Historical Med ondansetron (Zofran) 8 MG tablet Take by mouth as needed for nausea or vomiting., Historical Med Rimegepant Sulfate (Nurtec) 75 MG tablet dispersible Take by mouth as needed., Historical Med simvastatin (Zocor) 20 MG tablet Take 20 mg by mouth 2 times daily., Starting Sun03/26/2024, Historical Med !! - Potential duplicate medications found. Please discuss with provider. ALLERGIES Chocolate, Citalopram, Naproxen, Amoxicillin, Codeine, Effexor [venlafaxine], Milk (cow), Morphine, Salicylates, Tramadol, Trazodone and nefazodone, Tomato, and Wound dressing adhesive FAMILY HISTORY No family history on file. SOCIAL HISTORY Social History Socioeconomic History Marital status: Tobacco Use Smoking status: Every Day Current packs/day: 1.50 Average packs/day: 1.5 packs/day for 40.2 years (60.3 ttl pk-yrs) Types: Cigarettes Start date: 1984 Tobacco comments: Has cut smoking back for surgery Vaping Use Vaping status: Every Day Substances: Nicotine Substance and Sexual Activity Alcohol use: Yes Comment: occasional Drug use: Yes Types: Marijuana Comment: History of crack cocaine use-uses THC for migraines SCREENINGS PHYSICAL EXAM ED Triage Vitals [04/03/24 1918] Temp Heart Rate Resp BP 37.1 ?C (98.7 ?F) 69 18 123/58 SpO2 Temp Source Heart Rate Source Patient Position 98 % Oral Monitor Sitting BP Location FiO2 (%) Right arm -- Physical Exam Vitals and nursing note reviewed. Constitutional: General: She is not in acute distress. Appearance: She is well-developed. HENT: Head: Normocephalic (more content not included)... Normal [facility] ESR (Bld) [Velocity]Ordered By: Valeriy Daily on 04-03-2024 Interpretation and review of laboratory results Abnormal [facility] Laboratory - Chemistry and C hemistry - challengeon 04-03-2024 CRP [Mass/Vol] 0.6 mg/L NINF - 5.0 mg/L [facility] Laboratory - Coagulationon 0 04-03-2024 aPTT Coag (PPP) [Time] 25.9 s 20.0 - 30.5 s [facility] INR Coag (PPP) [Relative time] 1 {INR} 0.9 - 1.1 [facility] Comment on above: Recommended Anticoag ulant Therapy: SEE BELOW ----- INR of 2.0 - 3.0 : - Prophylaxis of Venous Thrombosis (high-risk surgery) - Treatment of Venous Thrombosis - Treatment of Pulmonary Embolism (Includes tissue heart valves, Acute Myocardial Infarction to prevent systemic embolism, Valvular Heart Disease, and Atrial Fibrillation) ----- INR of 2.5 - 3.5 : - Mechanical Prosthetic Valves (high risk) - If oral anticoagulant therapy is used to prevent Myocardial Infarction PT Coag (Bld) [Time] 10.7 s 9.0 - 1 2.0 s [facility] Laboratory - Hematology and Cell countsOrdered By: Valeriy Daily on 04-03-2024 ESR (Bld) [Velocity] 23 mm/h High [facility] No Panel Informationon 04-03 [facility] Interpretation and review of laboratory results Normal [facility] PROTIME AND APTTon aPTT Coag (Bld) [Time] 25.9 s Normal 20.0-30.5 [facility] Comment on above: Performed By: #### L [id number] ####Mining Technician: LAURA MOSQUERA ([phone])[facility] GITA Calcula TechnologiesRAHAT ([id number] GroupRLAB)[address] [place] [address] INR Coag (PPP) [Relative time] 1.0 {INR} Normal 0.9-1.1 [facility] Comment on above: Result Comment: Peyman mmended Anticoagulant Therapy: SEE BELOW ----- INR of 2.0 - 3.0 : - Prophylaxis of Venous Thrombosis (high-risk surgery) - Treatment of Venous Thrombosis - Treatment of Pulmonary Embolism (Includes tissue heart valves, Acute Myocardial Infarction to prevent systemic embolism, Valvular Heart Disease, and Atrial Fibrillation) ----- INR of 2.5 - 3.5 : - Mechanical Prosthetic Valves (high risk) - If oral anticoagulant therapy is used to prevent Myocardial Infarction Performed By: #### L [id number] ####Mining Technician: LAURA MOSQUERA ([phone])[facility] KHANNA RITTMAN (SWRLAB)[address] [place] [address] PT Coag (PPP) [Time] 10.7 s Normal 9.0-12.0 [facility] Comment on above: Performed By: #### L [id number] ####Mining Technician: LAURA MOSQUERA ([phone])[facility] KHANNA RITTMAN (SWRLAB)[address] [place] [address] [place] SEDIMENTATION RATE, AUTOMATE Don 04-03-2024 SEDIMENTATION RATE, ERYTHROCYTE 23 mm/hr High 0-20 [facility] Comment on above: Performed By: #### L [id number], [id number] ####Mining Technician: LAURA MOSQUERA ([phone])LEANNA ZAVALA ([facility])[address] [place] [address] XR Hand - left 3 Viewson 1. Postsurgical change compatible is status post percutaneous K wire fixation of left ring finger distal pharyngeal fracture. Report Dictated on Electronically Signed By: Tray Stokes MD Electronically Signed Date/Time: 04/03/2024 8:44 PM EST [facility] Patient Name: BRITTNEY MORA : 1975 Exam Date/Time: 04/03/2024 20:35 Procedure: XR HAND 3+ VIEWS LEFT Ordering Provider: CASAS DOUGLAS Reason For Exam: left hand ring finger distal and middle phalanx pain. h/o pins placed on 04/01/24 with ortho LEFT HAND 3 VIEWS CLINICAL INDICATION: left hand ring finger distal and middle phalanx pain. h/o pins placed on 04/01/24 with ortho TECHNIQUE: 3 views of the left hand. COMPARISON: March,. FINDINGS: Status post percutaneous K wire fixation x2 of ring finger distal femoral fracture. Hardware appears grossly intact and fracture fragments in similar position. Remainder of osseous and soft tissue structures grossly unremarkable. [facility] Tray Stokes MD - 04/03/2024 Patient Name: BRITTNEY ALCOCER : 1975 Exam Date/Time: 04/03/2024 20:35 Procedure: XR HAND 3+ VIEWS LEFT Ordering Provider: CASAS DOUGLAS Reason For Exam: left hand ring finger distal and middle phalanx pain. h/o pins placed on 04/01/24 with ortho LEFT HAND 3 VIEWS CLINICAL INDICATION: left hand ring finger distal and middle phalanx pain. h/o pins placed on 04/01/24 with ortho TECHNIQUE: 3 views of the left hand. COMPARISON: March,. FINDINGS: Status post percutaneous K wire fixation x2 of ring finger distal femoral fracture. Hardware appears grossly intact and fracture fragments in similar position. Remainder of osseous and soft tissue structures grossly unremarkable. IMPRESSION: 1. Postsurgical change compatible is status post percutaneous K wire fixation of left ring finger distal pharyngeal fracture. Report Dictated on Electronically Signed By: Tray Stokes MD Electronically Signed Date/Time: 04/03/2024 8:44 PM EST [facility] Radiology Study observation (narrative) [facility] XR Hand - left 3 ViewsOrdere d By: Tray Stokes on 04-03-2024 [facility] Work Phone: Nursing Noteon 04-01-2024 Nursing Note Pt and family verbalized understanding of recovery instructions, pt verbalized a readiness to be discharged home. Pt discharged home via wheelchair accompanied by RN/volunteer. Pt has had all their belongings returned to them at discharge Normal [facility] Nursing Note Reviewed discharge instructions with patient and friend Yvette. Understanding verbalized. Normal [facility] Nursing Note Patient transitioned to Phase 2. Tolerating liquids. Family at bedside. Normal [facility] Nursing Note Pt received from OR via cart, spont. Resp. With FIBERLINE SUPERVISOR in attendance. Placed on monitor. Monitor alarms on in PACU Normal [facility] Op Noteon 04-01-2024 Op Note Operative Report Patient Name: Brittney Alcocer Date of : 1975 Date of Surgery: 04/01/24 Preoperative Diagnosis: left ring finger displaced distal phalanx fracture Postoperative Diagnosis: Same Procedure: Closed reduction and percutaneous pin fixation of left ring finger displaced distal phalanx fracture Surgeon: Trent Alas MD Assistants: Francine Medeiros PA-C The first-therapeutic recreation assistant was critical to all steps of the operation, including retraction and arm extremity stabilization during exposure, as well as the deep and superficial wound closure. I understand that section 1842(b)(7)(D) of the Social Security Act generally prohibits Medicare physician fee schedule payment for the services of assistants at surgery in teaching hospitals when qualified residents are available to furnish such services. I certify that the services for which payment is claimed were medically necessary and that no qualified resident (PGY1 or greater) was available to perform the services. I further understand that these services are subject to post- payment review by the Medicare carrier. Implants: .045 in k wire and .035 in k wire Specimens Removed: None Anesthesia: General Local Anesthesia: 0.5% Marcaine for a total of 10ml into the subcutaneous tissues of the operative site(s) Estimated Blood Loss: <5ml Pre Operative Antibiotics: Yes, 2 grams Ancef Indications: Ms. Brittney Alcocer is a 49 y.o. year-old female left ring finger displaced distal phalanx fracture. I have discussed with her, preoperatively, the complications, limitations, expectations, alternatives to surgical treatment, and risks of surgical intervention, of which she has demonstrated understanding. I couselled patient and any family members/ guardians present regarding the risks of surgical intervention which include but are not limited to the risks of injury to neurovascular and surrounding anatomic structures, persistent pain and disability, unsightly scar, wound healing issues, postoperative stiffness, need for revision surgery, infection, malunion, nonunion, painful/ symptomatic hardware, CRPS, myocardial infarction, deep vein thrombosis, pulmonary embolism, and even . No guarantees were given or implied. After having all of her questions answered to her satisfaction, Ms. Brittney Alcocer and his legal guardian have provided written informed consent to proceed. Informed consent was signed prior to proceeding to OR. Procedure: Brittney Alcocer was identified in the preoperative waiting area. Her operative site and extremity were initialed by the surgeon of record and informed consent was reviewed and signed. Final questions were answered. She was brought to the operating room and placed in the supine position with the operative extremity on the hand table. All bony prominences were well padded. Tourniquet was placed about the left arm. Adequate anesthesia was then induced by the anesthesia provider. The operative extremity was prepped and draped in the usual sterile fashion. A surgical timeout was then performed confirming patient, procedure, operative extremity, laterality, and site, antibiotic administration if indicated, and any other pertinent information. The patient's ASA was verified by the nurse coffee weigher and the anesthesia staff. Fire risk was assessed. 10 cc of half percent Marcaine was placed subcutaneously about the base of the left ring finger for a digital block. The patient's left ring finger distal phalanx fracture was reduced using appropriate reduction maneuvers under fluoroscopic guidance. We were able to adequately reduce the fracture through closed means. While maintaining reduction, a 0.045 inch K wire was passed in a retrograde fashion from the distal aspect of the tip of the distal phalanx across the fracture site and across the distal interphalangeal joint into the middle phalanx under fluoroscopic guidance. An additional 0.035 inch K wire was then passed in a similar retrograde fashion from the distal aspect of the tip of the distal phalanx across the fracture site and across the distal interphalangeal joint into the middle phalanx under fluoroscopic guidance. Final PA and lateral x-rays of the left ring finger were obtained demonstrating appropriate hardware position and maintenance of fracture reduction in acceptable alignment. On visual inspection, no rotational deformity of the left ring finger noted and normal cascade of the fingers and tenodesis effect noted with passive wrist range of motion. The pins were then appropriately bent and cut and padded with sterile foam. Extremity was cleansed. Hands were appropriately dressed with 4 x 4's and the patient was placed into a well-padded ulnar gutter splint. Tourniquet was not used during this case and fingers were perfusing well after placement of the dressings and the fingers were perfusing well after p (more content not included)... Normal [facility] [id number] 03-31-2024 [id number] Medication List Accurate as of March 31, 2024 10:07 AM. Always use your most recent med list. acetaminophen 500 MG tablet Commonly known as: Tylenol Medication Adjustments for Surgery: Take morning of surgery Notes to patient: If needed Ajovy 225 MG/1.5ML auto-injector Generic drug: fremanezumab Medication Adjustments for Surgery: Hold morning of surgery albuterol 108 (90 Base) MCG/ACT inhaler Medication Adjustments for Surgery: Take morning of surgery Notes to patient: If needed, take with you Botox 100 units injection Generic drug: onabotulinumtoxinA Medication Adjustments for Surgery: Hold morning of surgery CLARITIN PO Medication Adjustments for Surgery: Take morning of surgery cyclobenzaprine 10 MG tablet Commonly known as: Flexeril Take 1 tablet (10 mg) by mouth Nightly for 10 days. Notes to patient: No longer taking divalproex 500 MG 24 hr tablet Commonly known as: Depakote ER Notes to patient: Only when receiving migraine infusion famotidine 10 MG tablet Commonly known as: Pepcid Notes to patient: Not taking GABAPENTIN PO Medication Adjustments for Surgery: Take morning of surgery lansoprazole [address] capsule Commonly known as: Prevacid Medication Adjustments for Surgery: Take morning of surgery * atorvastatin 40 MG tablet Commonly known as: Lipitor Notes to patient: Not taking * LIPITOR PO Notes to patient: Not taking methylPREDNISolone 4 MG tablet Commonly known as: Medrol Notes to patient: Not taking Myrbetriq 50 MG 24 hr tablet Generic drug: mirabegron ER Medication Adjustments for Surgery: Take morning of surgery Nurtec 75 MG tablet dispersible Generic drug: Rimegepant Sulfate Medication Adjustments for Surgery: Hold morning of surgery ondansetron 8 MG tablet Commonly known as: Zofran Medication Adjustments for Surgery: Take morning of surgery Notes to patient: If needed simvastatin 20 MG tablet Commonly known as: Zocor Medication Adjustments for Surgery: Take morning of surgery * This list has 2 medication(s) that are the same as other medications prescribed for you. Read the directions carefully, and ask your doctor or other care provider to review them with you. Shower with the [employer] product. Follow the instructions dry off with clean dry towel,wear clean clothes to bed and clean linen on the bed the night before surgery. No makeup,lotion,powder,de odorant or body sprays. No hair products. Remove all jewelry and leave it at home. You may brush your teeth,floss,use mouthwash morning of surgery. Do not wear contacts DOS. No alcohol or smoking 24 hours prior to surgery and nothing to eat after midnight. Up until 2 hours prior to you surgery time, you may have clear liquids. Water,apple juice, sprite, 7-up, kristen marlene. Clear tea or black coffee. Gatorade/Powerade. No cream, no milk, no dairy. No jello, no soup broth or orange juice. No candy,mints or gum. No THC, smoking or alcohol for 24 hours prior to surgery. Please bring your [employer] [facility] Surgical folder with you day of surgery. Please bring photo ID and insurance information. Please arrange for someone to drive you home after your surgery and that there is a responsible person with your for 24 hours post discharge. On the day of discharge please arrange to have your transport arrive at 11am. You may take your prescription pain medication. You may take Tylenol for pain. NO Motrin, ibuprofen or Advil for 24 hours prior to surgery or longer if instructed by your surgeon. NO Aleve or naprosyn for 5 days prior to surgery or longer if instructed by your surgeon. NO MOBIC/MELOXICAM FOR 5 DAYS PRIOR TO SURGERY. DO NOT take aspirin or aspirin containing products for 5 days before surgery, or longer if instructed by your surgeon. Follow any instructions given to you by Dr. Alas If you have specific questions, please call your surgeon. Gita: Enter through Door number 2 Registration department is located here Patient will be escorted to [facility] [place] does not open before 6am Normal [facility] 36on 03-31-2024 36 PAT orders signed, thanks! Normal [facility] Magnetic resonance imaging r eportOrdered By: Anthony Tena on 03-28-2024 Study report [facility] Services [address] [place] [address] [id number] Spine Cervical (Routine) MR#: [id number] Acct: [id number] Name: BRITTNEY ALCOCER Rep #: [id number] : 1975 F 49 From: Marek Tena DO PCP: GILA Baptiste Status: REG CL I Study:Spine Cervical (Routine) Date of Exam: 03/28/24 Exam# [id number] Ordering Dr: Tim Ramsey PA PROCEDURE: MRI cervical spine without IV contrast REASON FOR EXAM: Pain, radiculopathy TECHNIQUE: Multisequence multiplanar MR images of the cervical spine were obtained without the administration of intravenous contrast. Imaging sequences were performed to best display suspected pathology. COMPARISON: No recent priors FINDINGS: Vertebral body heights are within normal limits. Negative for fracture or marrow replacement. Straightening of the normal lordosis. No significant scoliosis. Spinal cord is of normal caliber, contour and signal intensity. No paraspinal mass. C2-3: No focal disc abnormality, spinal stenosis or foraminal narrowing. C3-4: Posterior disc osteophyte complex. Bilateral uncovertebral arthrosis. Mild spinal stenosis. Mild bilateral foraminal narrowing. C4-5: Tiny central disc protrusion. Mild spinal stenosis. No significant foraminal narrowing. C5-6: Posterior disc osteophyte complex. Bilateral uncovertebral arthrosis. Mild spinal stenosis. Mild left foraminal narrowing. C6-7: No focal disc abnormality, spinal stenosis or foraminal narrowing. C7-T1: No focal disc abnormality, spinal stenosis or foraminal narrowing. MRI/Spine Cervical (Routine) IMPRESSION: 1. Acquired mild spinal stenosis from C3 through C6 as above. 2. No high-grade foraminal narrowing. Reading Location: [facility] CC: GILA Otoole; SHAHZAD Caal ~ Brick Picker: Signed [facility] Spine Cervical (Routine)on 0 03-28-2024 Spine Cervical (Routine) [facility] Services [address] [place] [id number] Spine Cervical (Routine) MR#: [id number] Acct: [id number] Name: BRITTNEY ALCOCER Rep #: [id number] : 1975 F 49 From: Anthony Santos PCP: GILA Baptiste Status: REG CLI Study: Spine Cervical (Routine) Date of Exam: Exam# [id number] Ordering Dr: Brit Ramsey PROCEDURE: MRI cervical spine without IV contrast REASON FOR EXAM: Pain, radiculopathy TECHNIQUE: Multisequence multiplanar MR images of the cervical spine were obtained without the administration of intravenous contrast. Imaging sequences were performed to best display suspected pathology. COMPARISON: No recent priors FINDINGS: Vertebral body heights are within normal limits. Negative for fracture or marrow replacement. Straightening of the normal lordosis. No significant scoliosis. Spinal cord is of normal caliber, contour and signal intensity. No paraspinal mass. C2-3: No focal disc abnormality, spinal stenosis or foraminal narrowing. C3-4: Posterior disc osteophyte complex. Bilateral uncovertebral arthrosis. Mild spinal stenosis. Mild bilateral foraminal narrowing. C4-5: Tiny central disc protrusion. Mild spinal stenosis. No significant foraminal narrowing. C5-6: Posterior disc osteophyte complex. Bilateral uncovertebral arthrosis. Mild spinal stenosis. Mild left foraminal narrowing. C6-7: No focal disc abnormality, spinal stenosis or foraminal narrowing. C7-T1: No focal disc abnormality, spinal stenosis or foraminal narrowing. MRI/Spine Cervical (Routine) IMPRESSION: 1. Acquired mild spinal stenosis from C3 through C6 as above. 2. No high-grade foraminal narrowing. Reading Location: [place] CC: GILA Otoole; SHAHZAD Caal Brick Picker: Signed [facility] 36on 03-27-2024 36 Called patient to [facility] day of Sunday03/31/24 @ 9:30am phone call. Gave tentative arrival time of 7:30am and sx to start @ 9:30am. Let her know surgery times are subject to change and she will be made aware if so. Patient confirmed and had no further questions. [facility] 36 Sent to sx scheduling Normal [facility] 36 Checked [facility] portal- NAN [facility] 36 ----- Message from Francine Medeiros PA-C sent at 03/27/2024 8:24 AM EST ----- [facility] SURGERY SCHEDULING SLIP Patient: Brittney Alcocer Date of : 1975 Date of Surgery: 04/01/2024 9:30am arrive @ 7:30am Day of Surgery: Sunday Hospital: [place] Duration: 45min Type: Outpatient PAT: Yes, virtual 03/31/24 @ 9:30am call Med Clearance: No Anesthesia: MAC/local Block: None Position: Supine Table: Stretcher Arm Board: Roll-up arm table Radiology: Small C-Arm CPT Code: 10728 Dx code: S62.635D Case #: [id number] Consent: Closed reduction percutaneous pinning left ring finger distal phalanx fracture FollowUp: Waldemar in 10-14 days 04/10/24 @ 9am @ hortensia with kt ( ok 9 days per bishop) XRays: Yes, 2V left ring finger OT Splint needed at first PO appointment: no Special Requests Hand tray K wires, 3.5 and 4.5 available but not open Power Sterile coban 2 inch Yellow pin covers Small Adaptic [facility] Office Visiton 03-27-2024 Follow-up visit [id number] Brittney Alcocer 1975 F Date Provider Department Center 03/27/2024 [id number]-OCEYTRENT [facility] GISELA None No family history on file Level of Service:88055 MA OFFICE/OUTPATIENT ESTABLISHED MOD MDM 30 MIN Reason for Visit and Comments: Post-op [483] - Closed nondisplaced fracture of distal phalanx of left ring finger DOI 02/22/2024 Normal [facility] Progress Noteon 03-27-2024 Progress Note [facility] [place] [address] [place] [address] [place] [address] Dept: [phone] Dept 03/27/2024 Chief Complaint Patient presents with Post-op Closed nondisplaced fracture of distal phalanx of left ring finger DOI 02/22/2024 SUBJECTIVE Brittney is approximately 1 month(s) s/p Closed nondisplaced fracture of distal phalanx of left ring finger . Pain is moderate. She is taking tylenol for pain relief. She denies numbness and tingling. She denies drainage from her incision. She denies significant complaints other than the expected amount of pain. She says she has been using her left ring finger stack splint most of the time. She does report she has cut back on use of tobacco cigarettes. She denies any recent injuries. Does note continued swelling and pain about the distal aspect of her left ring finger OBJECTIVE Ht 4' 10 (1.473 m) Wt 182 lb (82.6 kg) BMI 38.04 kg/m? Ortho Exam Focused Exam of the LEFT Upper Extremity Skin: intact without any evidence of breakdown Edema: moderate edema surrounding the left ring finger distal phalanx Palpation: tender to palpation over the left ring finger distal phalanx ROM: Patient able to fully extend all fingers. Able to fully flex all fingers aside from ring finger DIP joint expectedly stiff, likely secondary to fracture Stability: no evidence of joint instabilities Motor: Intact in the hand - able to fire AIN, PIN, and Ulnar nerves Sensation: normal in the median, ulnar, and radial nerve distributions Perfusion: Brisk capillary refill in all 5 digits LEFT ring finger MCP (nl 0-45?H/90?) PIP (nl 0?/100?) DIP (nl 0?-80?) Tip to Palm EXTENSION 0? 0? 0? FLEXION 90? 100? Limited due to known fracture Not assessed due to known fracture *(Passive values entered only if different than active; otherwise = AROM) IMAGING LEFT Ring Finger 2V were obtained today and independently reviewed by myself and demonstrate a displaced extra-articular transverse fracture of the distal phalanx that is significantly more displaced than previous x-rays as well as apex volarly angulated. Minimal to no bony healing noted at the fracture site as well. ASSESSMENT 1. Closed displaced fracture of distal phalanx of left ring finger with routine healing, subsequent encounter XR fingers 2+ views left SUNIL Beard has been undergoing closed treatment of left ring finger distal phalanx fracture for approximately the past month. Unfortunately on x-rays today she has increased displacement and angulation of the fracture noted with minimal signs of healing. We discussed treatment options including continued closed treatment versus surgical treatment in the form of closed reduction and percutaneous pin placement. The risk and benefits of treatment options as well as alternatives of surgical treatment options discussed with the patient thoroughly. Patient was able to ask questions and they were answered to best my ability today. Ultimately recommendation was made for surgical treatment. Brittney elected to proceed with operative management to include left ring finger closed reduction and percutaneous pin placement. I couselled Brittney and any family members present regarding the risks of surgical intervention which include but are not limited to the risks of injury to normal neurovascular and local anatomic structures, persistent pain and disability, unsightly scar, wound healing complications, postoperative stiffness, need for revision surgery, infection, malunion, nonunion, painful hardware, CRPS, myocardial infarction, deep vein thrombosis, pulmonary embolism, and even . I feel that Ms. Brittney Alcocer does understand our discussion today and she is comfortable providing informed consent for the procedure. Patient will be scheduled for surgery on an outpatient basis for this coming Sunday. Immobilization: Stax splint to be worn at all times Weight Bearing: Non Weight Bearing left ring finger Rehabilitation: NO formal rehabilitation required at this point. Follow-up: Brittney will followup with my physician therapeutic recreation assistant, Francine Medeiros PA-C 10 to 14 days post operatively. She knows to call the office with any questions or concerns in the interim. Future Imaging: LEFT Ring Finger 2V out of splint Trent Alas MD Orthopedic Hand and Upper Extremity Surgery [facility] Department of Orthopaedics 03/27/2024 at 8:01 AM (Please note that portions of this note may have been completed with a voice recognition program. Efforts were made to edit the dictations but occasionally words are mis-transcribed.) Normal [facility] XR Finger - left 2 Viewson 0 03-27-2024 Fracture of the dist al phalanx with increased dorsal angulation. Report Dictated on Electronically Signed By: Oneil Yang MD Electronically Signed Date/Time: 03/27/2024 10:[address] [facility] Patient Name: BRITTNEY MORA : 1975 Exam Date/Time: 03/27/2024 07:42 Procedure: XR FINGERS 2+ VIEWS LEFT Ordering Provider: MEDEIROS KATELYN Reason For Exam: Left Finger pain LEFT RING FINGER: CLINICAL INDICATION: Pain TECHNIQUE: PA hand as well as lateral and oblique finger views COMPARISON: 02/22/2024 FINDINGS: Oblique fracture through the base of the distal phalanx of the ring finger is noted with increased dorsal angulation of the distal fracture fragment as compared to the prior examination. No other fracture or dislocation is noted. No arthritic change is identified. No bone lesion is identified. There is no soft tissue abnormality. [facility] Oneil Yang MD - 03/27/2024 Patient Name: BRITTNEY ALCOCER : 1975 Exam Date/Time: 03/27/2024 07:42 Procedure: XR FINGERS 2+ VIEWS LEFT Ordering Provider: MEDEIROS KATELYN Reason For Exam: Left Finger pain LEFT RING FINGER: CLINICAL INDICATION: Pain TECHNIQUE: PA hand as well as lateral and oblique finger views COMPARISON: 02/22/2024 FINDINGS: Oblique fracture through the base of the distal phalanx of the ring finger is noted with increased dorsal angulation of the distal fracture fragment as compared to the prior examination. No other fracture or dislocation is noted. No arthritic change is identified. No bone lesion is identified. There is no soft tissue abnormality. IMPRESSION: Fracture of the distal phalanx with increased dorsal angulation. Report Dictated on Electronically Signed By: Oneil Yang MD Electronically Signed Date/Time: 03/27/2024 10:21 AM EST [facility] Radiology Study observation (narrative) [facility] XR Finger - left 2 ViewsOrde red By: Oneil Yang on 03-27-2024 [email or web address] Work Phone: CNOVon 03-13-2024 CNOV Office Visit (NHMNS2 ) BRITTNEY ALCOCER ([id number]) 1975 F NFR Date Time Provider Department 03/13/24 2:00 PM DEBBIE AMRAS [facility] During your visit today, we recorded the following information about you: Debbie Armas APRN.[facility] 03/13/2024 2:52 PM Signed [facility] Note Subjective: Brittney Alcocer is a 49 year old year old female presenting for day 3 of infusions. Therapy Plan: zofran magnesium robaxin valproate New health conditions since orders were placed: No Cardiovascular risk factors: Myocardial Infarction and Stroke Triptan dose in the last 24 hours: No Last muscle relaxer dose: No Last NSAID dose: No Response to infusions: Patient tolerating infusion without side effects. Current Preventative: Botox,Gabapentin,Ajovy Current Abortive: [facility] Labs: Latest Ref Rng AND Units 12/28/2023 CBC WBC 3.70 - 11.00 k/uL 6.99 RBC 3.90 - 5.20 m/uL 4.72 Hemoglobin 11.5 - 15.5 g/dL 15.1 Hematocrit 36.0 - 46.0 % 46.1 MCV 80.0 - 100.0 fL 97.7 MCH 26.0 - 34.0 pg 32.0 MCHC 30.5 - 36.0 g/dL 32.8 RDW-CV 11.5 - 15.0 % 12.9 Platelet Count 150 - 400 k/uL 243 MPV 9.0 - 12.7 fL 10.2 Latest Ref Rng AND Units 12/28/2023 CMP Sodium 136 - 144 mmol/L 142 Potassium 3.7 - 5.1 mmol/L 4.1 Chloride 98 - 107 mmol/L 106 CO2 22 - 30 mmol/L 27 Glucose 74 - 99 mg/dL 91 BUN 7 - 21 mg/dL 13 Creatinine 0.58 - 0.96 mg/dL 0.82 EGFR >=60 mL/min/1.73m? 88 Protein, Total 6.3 - 8.0 g/dL 7.5 Albumin 3.9 - 4.9 g/dL 4.5 Calcium 8.5 - 10.2 mg/dL 9.7 Bilirubin, Total 0.2 - 1.3 mg/dL 0.4 AST 13 - 35 U/L 17 ALT 7 - 38 U/L 16 Alkaline Phosphatase 34 - 123 U/L 116 ALLERGIES Allergen Reactions Citalopram Hydrobro* Anaphylaxis TACHYCARDIA Morphine GI Upset Amoxicillin GI Upset, Other: See Comments Makes me worse Asa [Salicylates] Hives Chocolate Effexor [Venlafaxin* Vomiting Naproxen Intolerance Depression Penicillin G GI Upset Tape [Adhesive Tape* Other: See Comments Rash Tomato Intolerance If cooked cant tolerate them Tramadol GI Upset Trazodone Mental Status Change Causes hallucinations Venlafaxine Unknown Current Medications: ondansetron orally disintegrating (ZOFRAN ODT) 8 mg disintegrating tabletTake 1 tablet by mouth every 8 hours as needed for nausea/vomiting.Disp: 60 tabletRfl: 1 rimegepant (NURTEC ODT) 75 mg disintegrating tabletTake 1 tablet at onset of headache/migraine. Only take 1 tablet as single dose in 24 hour period.Disp: 8 tabletRfl: 11 albuterol HFA (PROVENTIL HFA, VENTOLIN HFA) 90 mcg/actuation inhalerInhale 2 Puffs as instructed every 4 hours as needed for wheezing/shortness of breath.Disp: 1 EachRfl: 11 mirabegron (MYRBETRIQ) 50 mg [id number] 1 tablet by mouth once daily.Disp: 30 tabletRfl: 5 fremanezumab-vfrm subcutaneus auto-injector 225 mg/1.5 mL (AJOVY)Inject 1.5 mL subcutaneously once every month. Do not shake.Disp: 1.5 mLRfl: 11 lansoprazole (PREVACID) 30 mg capsuleTake 1 capsule by mouth two times a day.Disp: 60 capsuleRfl: 0 simvastatin (ZOCOR) 20 mg tabletTake 2 tablets by mouth daily at bedtime.Disp: 180 tabletRfl: 3 gabapentin (NEURONTIN) 800 mg tabletTake 1 tablet by mouth four times daily for 180 days.Disp: 120 tabletRfl: 5 loratadine (CLARITIN) 10 mg tablettake 1 tablet by mouth once dailyDisp: 28 tabletRfl: 11 MEDICATION, NON-DATABASEMarijuana for migrainesDisp: Rfl: Review of Systems: Review of system: Patient reports no change from the prior visit. Objective: VS: see infusion note for vital signs General: well appearing, in no acute distress, alert Lungs: normal breath sounds bilaterally CV: RRR, normal S1, S2 auscultated, no murmurs, and no JVD GI: Bowel sounds present in all four quadrants - Yes Neurological: Pain Behaviors: no pain behaviors observed Mental Status: Alert and oriented to person, place and time. Affect is normal and appropriate. Speech is spontaneous and fluent without dysarthria, normal in rate, volume and articulation, and clear, coherent, and relevant. Short and snf memory, cognition and general fund of knowledge are good. Attention span and concentration are good. Cranial Nerves: VII-face is symmetric without evidence of weakness. VIII-hearing intact. Assessment: No diagnosis found. Plan: Brittney Alcocer is a 49 year old year old female, with a history of chronic migraine, stroke, KS,chronic pain syndrome, TMJD, concussion, peptic ulcer, hypothyroid, asthma, pelvic pain, renal stones and insomnia following up today for day 3 of infusions. Follow up plan: Resume previous at home medications. [facility] Follow-up Visit Current Preventive: Botox, Ajovy, Gabapentin Current Abortive: Nurtec Miscellaneous Patient Concerns: Last 3 weeks headaches are increased Impression: Chronic migraine without aura, intractable, without status (more content not included)... 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 Therapy Plan: Zofran Mag (2g) Robaxin Depacon PRN- pepcid, benadryl New health conditions since orders were placed: No Cardiovascular risk factors: Myocardial Infarction and Stroke 1999 Triptan dose in the last 24 hours: No Last muscle relaxer dose: No Last NSAID dose: No Response to infusions: Patient tolerating infusion without side effects. Current Preventative: botox, gabapentin, ajovy Current Abortive: nurtec Labs: Latest Ref Rng AND Units 12/28/2023 CBC WBC 3.70 - 11.00 k/uL 6.99 RBC 3.90 - 5.20 m/uL 4.72 Hemoglobin 11.5 - 15.5 g/dL 15.1 Hematocrit 36.0 - 46.0 % 46.1 MCV 80.0 - 100.0 fL 97.7 MCH 26.0 - 34.0 pg 32.0 MCHC 30.5 - 36.0 g/dL 32.8 RDW-CV 11.5 - 15.0 % 12.9 Platelet Count 150 - 400 k/uL 243 MPV 9.0 - 12.7 fL 10.2 Latest Ref Rng AND Units 12/28/2023 CMP Sodium 136 - 144 mmol/L 142 Potassium 3.7 - 5.1 mmol/L 4.1 Chloride 98 - 107 mmol/L 106 CO2 22 - 30 mmol/L 27 Glucose 74 - 99 mg/dL 91 BUN 7 - 21 mg/dL 13 Creatinine 0.58 - 0.96 mg/dL 0.82 EGFR >=60 mL/min/1.73m? 88 Protein, Total 6.3 - 8.0 g/dL 7.5 Albumin 3.9 - 4.9 g/dL 4.5 Calcium 8.5 - 10.2 mg/dL 9.7 Bilirubin, Total 0.2 - 1.3 mg/dL 0.4 AST 13 - 35 U/L 17 ALT 7 - 38 U/L 16 Alkaline Phosphatase 34 - 123 U/L 116 ALLERGIES Allergen Reactions Citalopram Hydrobro* Anaphylaxis TACHYCARDIA Morphine GI Upset Amoxicillin GI Upset, Other: See Comments Makes me worse Asa [Salicylates] Hives Chocolate Effexor [Venlafaxin* Vomiting Naproxen Intolerance Depression Penicillin G GI Upset Tape [Adhesive Tape* Other: See Comments Rash Tomato Intolerance If cooked cant tolerate them Tramadol GI Upset Trazodone Mental Status Change Causes hallucinations Venlafaxine Unknown Current Medications: ondansetron orally disintegrating (ZOFRAN ODT) 8 mg disintegrating tabletTake 1 tablet by mouth every 8 hours as needed for nausea/vomiting.Disp: 60 tabletRfl: 1 rimegepant (NURTEC ODT) 75 mg disintegrating tabletTake 1 tablet at onset of headache/migraine. Only take 1 tablet as single dose in 24 hour period.Disp: 8 tabletRfl: 11 albuterol HFA (PROVENTIL HFA, VENTOLIN HFA) 90 mcg/actuation inhalerInhale 2 Puffs as instructed every 4 hours as needed for wheezing/shortness of breath.Disp: 1 EachRfl: 11 mirabegron (MYRBETRIQ) 50 mg [id number] 1 tablet by mouth once daily.Disp: 30 tabletRfl: 5 fremanezumab-vfrm subcutaneus auto-injector 225 mg/1.5 mL (AJOVY)Inject 1.5 mL subcutaneously once every month. Do not shake.Disp: 1.5 mLRfl: 11 lansoprazole (PREVACID) 30 mg capsuleTake 1 capsule by mouth two times a day.Disp: 60 capsuleRfl: 0 simvastatin (ZOCOR) 20 mg tabletTake 2 tablets by mouth daily at bedtime.Disp: 180 tabletRfl: 3 gabapentin (NEURONTIN) 800 mg tabletTake 1 tablet by mouth four times daily for 180 days.Disp: 120 tabletRfl: 5 loratadine (CLARITIN) 10 mg tablettake 1 tablet by mouth once dailyDisp: 28 tabletRfl: 11 MEDICATION, NON-DATABASEMarijuana for migrainesDisp: Rfl: Review of Systems: Review of system: Patient reports no change from the prior visit. Objective: VS: see infusion note for vital signs General: well appearing, in no acute distress, alert Neurological: Pain Behaviors: squinting Mental Status: Alert and oriented to person, place and time. Affect is normal and appropriate. Speech is spontaneous and fluent without dysarthria and normal in rate, volume and articulation. 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 Attention span and concentration are good. Cranial Nerves: VII-face is symmetric without evidence of weakness. VIII-hearing intact. Assessment: No diagnosis found. Plan: Brittney Alcocer is a 49 year old year old female, with a history of chronic migraine, stroke, KS,chronic pain syndrome, TMJD, concussion, peptic ulcer, hypothyroid, asthma, pelvic pain, renal stones and insomnia following up today for day 1 of infusions. Follow up plan: Resume previous at home medications. - Follow up with Yenny Osman APRN on 03/14/2024 Level of service: Est level 1 (0-9 min): Time spent 8 min on the day of service, which included preparing to see the patient, [id number] patient care, completing clinical documentation, obtaining and/or reviewing separately obtained history, performing a medically appropriate examination, and counseling and educating the patient/family/caregive davion Carter (more content not included)... Normal [facility] Progress Noteon 03-10-2024 Progress Note [facility] [address] [facility] [address] Dept: [phone] Dept PHYSICAL THERAPY TREATMENT Patient Name: Petar Alcocer : 1975 Date of Service: 03/10/2024 Referring Provider: Cristobal Ootole NP Visit #: 11 Diagnosis: Torticollis Mechanism of injury: Neck/shoulder pain and L UE numbness and tingling. Getting infusions the last few months for migraines and botox injections for the last 4 years to improve. Patient Preferences: Star Subjective Current pain 8/10 shoulders, neck. Pain at mid scapular worse with bending forward. R shoulder pain with IR. Compliance with HEP: Yes Objective Objective measurements not taken today. Treatment Soft Tissue Mobilization Location: B upper trap, cervical PVM Body Position: Supine Comments: STM Location 2: L mid trap/rhomboid Body Position 2: Prone Comments 2: MFR Joint Mobilization Location: thoracic Body Position: Prone Comments: gentle PA mobs T 4-7 Other Location: Cervical manual traction Body Position: Supine Comments: 6 x 45 hold Home Exercise Program: Deferred Assessment Skilled physical therapy interventions utilized to improve patient?s impairments and work towards established goals. Patient response to treatment: moderate soft tissue restrictions noted R>L cervical paraspinals, upper trap. Very tender at R levator and C3-4 paraspinals. Relief with manual cervical traction. Pt states shoulders sore, but neck pain reduced after MT. Patient will benefit from continued physical therapy to reduce pain, symptoms; improve function. The rationale for today?s treatment was explained to the patient. Verbal cues were provided for correct form with all exercises. Advised patient to continue with Home Exercise Program (HEP). Goals General/Ortho Patient will be independent with HEP. (Progressing) Start: 01/10/24 Expected End: 04/18/24 Patient will report decreased pain at neck/shoulder to no more than 5/10 in order to be able to perform ADLs without limitation. (Not Progressing) Start: 01/10/24 Expected End: 04/18/24 Patient will increase ROM of L shoulder and neck to WFL without increased pain to be able to reach back for bra and back of neck for grooming. (Progressing) Start: 01/10/24 Expected End: 04/18/24 Patient will increase strength in L UE to 4/5 grossly to be able to use L arm for ADLs (Progressing) Start: 01/10/24 Expected End: 04/18/24 Functional Outcome Measure: Patient will improve NDI to no more than 10 (Not Addressed) Start: 01/10/24 Expected End: 04/18/24 General/Ortho Functional Outcome Measure: Patient will improve SPADI to no more than 15% (Not Addressed) Start: 01/10/24 Expected End: 04/18/24 Plan Plan for next session: continue MT PRN; advance postural stabilization as tolerated Time Entry Total Treatment Time Start Time: 0236 Stop Time: 0301 Time Calculation (min): 25 min PT Therapeutic Procedures Time Entry Manual Therapy Time Entry: 25 Lindsey Mcgregor PTA Normal [facility] Progress Noteon 03-06-2024 Progress Note [facility] [place] [address] [facility] [place] [address] Dept: [phone] Dept PHYSICAL THERAPY TREATMENT Patient Name: Petar Alcocer : 1975 Date of Service: 03/06/2024 Referring Provider: Cristobal Otoole NP Visit #: 10 Diagnosis: Torticollis Mechanism of injury: Neck/shoulder pain and L UE numbness and tingling. Getting infusions the last few months for migraines and botox injections for the last 4 years to improve. Patient Preferences: Star Precautions/Red Flags: Yes medical precautions: Bipolar disorder, Hx of heart attack, PTSD, CVA, Adhesive allergy, NO TAPING Subjective Reports MRI on 03/28/24 for neck. Pain level 2/10 pain. Compliance with HEP: Yes Objective Objective measurements not taken today. Treatment Therapeutic Activity Therapeutic Activity 2: Prone chin tucks Activity 2 Comment: 1) isolated x 10 ; 2) c ext 2 x 10 reps; 3) c cervical rotation 3 x 5 reps ea side Therapeutic Activity 3: seated chest press Activity 3 Comment: 1.0kg 2 x 10 reps Therapeutic Activity 12: overhead press Activity 12 Comment: 0.5 kg; 2 x 10 reps Soft Tissue Mobilization Location: R upper trap, cervical PVM Body Position: Supine Comments: STM Other Location: Cervical manual traction Body Position: Supine Comments: 3 x 45 sec holds Home Exercise Program: Progressed home exercise program Assessment Skilled physical therapy interventions utilized to improve patient?s impairments and work towards established goals. Patient response to treatment: Progressed clinical program this date to include more prone activities and strength of neck/postural mms this date with moderate degree of fatigue. No increased pain during. Patient will benefit from continued physical therapy to progress functional use of the neck/postural mm. The rationale for today?s treatment was explained to the patient. Verbal cues were provided for correct form with all exercises. Advised patient to continue with Home Exercise Program (HEP). Goals General/Ortho Patient will be independent with HEP. (Progressing) Start: 01/10/24 Expected End: 04/18/24 Patient will report decreased pain at neck/shoulder to no more than 5/10 in order to be able to perform ADLs without limitation. (Progressing) Start: 01/10/24 Expected End: 04/18/24 Patient will increase ROM of L shoulder and neck to WFL without increased pain to be able to reach back for bra and back of neck for grooming. (Progressing) Start: 01/10/24 Expected End: 04/18/24 Patient will increase strength in L UE to 4/5 grossly to be able to use L arm for ADLs (Progressing) Start: 01/10/24 Expected End: 04/18/24 Functional Outcome Measure: Patient will improve NDI to no more than 10 (Progressing) Start: 01/10/24 Expected End: 04/18/24 General/Ortho Functional Outcome Measure: Patient will improve SPADI to no more than 15% (Progressing) Start: 01/10/24 Expected End: 04/18/24 Plan Plan for next session: progress functional use of the neck/postural mm; Time Entry Total Treatment Time Start Time: 1040 Stop Time: 1107 Time Calculation (min): 27 min PT Therapeutic Procedures Time Entry Therapeutic Activity Time Entry: 20 Manual Therapy Time Entry: 10 Linda Randle, PT, DPT, NCS [facility] 03-05-2024 CNPN Telephone (NIQ) BRITTNEY ALCOCER ([id number]) 1975 F NFR Date Time Provider Department 03/05/24 CRISTOBAL OTOOLE During your visit today, we recorded the following information about you: Leslye Welsh 03/05/2024 9:12 AM Signed INFUSION SCHEDULING Name of caller : Brittney Alcocer Relationship to patient : Self If not self Will need patient permission to release results or disclose health information with called documented in fyi. Was permission obtained from patient ? Yes Patient identified by Name and Date of . ( Brittney Solitariolonny, 1975). Yes Last office visit 12/11/23 with deborah teixeira Did you discuss infusions during the visit: Type of Infusion Requested by Patient : If Vyepti, is there a referral : Number to return call : [phone] Okay to leave a message ? Yes ROUTING INSTRUCTIONS: If patient is returning call to schedule Infusions or asking about Vyepti, please route message to p [facility] SCHEDULING . If Infusions were NOT discussed in the last visit, route message to provider pool to be triaged. Ginette Washington 03/05/2024 9:27 AM Signed Called patient back but she was unable to talk. Will try again later Ginette Washington 03/05/2024 9:49 AM Signed Patient wanted to be scheduled for triage visit to discuss coming in for infusions prior to botox. Stated it worked out really well last time Allergies As of Date: 03/05/2024 Noted Allergy Reaction CITALOPRAM HYDROBROMIDE 10/27/2004 10 - Anaphylaxis Comments: TACHYCARDIA MORPHINE 01/26/2005 8 - GI Upset AMOXICILLIN 10/24/2004 8 - GI Upset 14 - Other: See Comments Comments: Makes me worse ASA (SALICYLATES) 10/27/2004 4 - Hives CHOCOLATE 10/27/2004 EFFEXOR (VENLAFAXINE HCL) 10/27/2004 11 - Vomiting NAPROXEN 02/16/2006 5 - Intolerance Comments: Depression PENICILLIN G 09/08/2021 8 - GI Upset TAPE (ADHESIVE TAPE-SILICONES) 01/27/2021 14 - Other: See Comments Comments: Rash TOMATO 12/21/2020 5 - Intolerance Comments: If cooked cant tolerate them TRAMADOL 10/24/2004 8 - GI Upset TRAZODONE 08/28/2017 1 - Mental Status Change Comments: Causes hallucinations VENLAFAXINE 12/13/2015 16 - Unknown Date Reviewed: 02/18/2024 Reviewed by: Fiona Dave MA - Fully Assessed Reason for Visit: Patient Request [[id number]] Prescriptions as of 03/05/2024 - rimegepant (NURTEC ODT) 75 mg disintegrating tablet Take 1 tablet at onset of headache/migraine. Only take 1 tablet as single dose in 24 hour period. - nystatin (MYCOSTATIN) 100,000 unit/mL suspension Take 5 mL by mouth four times daily. 1tsp swish in mouth for several minutes, then swallow (or expectorate) 4 times daily until gone. - ondansetron orally disintegrating (ZOFRAN ODT) 8 mg disintegrating tablet Take 1 tablet by mouth every 8 hours as needed for nausea/vomiting. - albuterol HFA (PROVENTIL HFA, VENTOLIN HFA) 90 mcg/actuation inhaler Inhale 2 Puffs as instructed every 4 hours as needed for wheezing/shortness of breath. - mirabegron (MYRBETRIQ) 50 mg Tb24 Take 1 tablet by mouth once daily. - fremanezumab-vfrm subcutaneus auto-injector 225 mg/1.5 mL (AJOVY) Inject 1.5 mL subcutaneously once every month. Do not shake. - lansoprazole (PREVACID) 30 mg capsule Take 1 capsule by mouth two times a day. - simvastatin (ZOCOR) 20 mg tablet Take 2 tablets by mouth daily at bedtime. - gabapentin (NEURONTIN) 800 mg tablet Take 1 tablet by mouth four times daily for 180 days. - loratadine (CLARITIN) 10 mg tablet take 1 tablet by mouth once daily - MEDICATION, NON-DATABASE Marijuana for migraines Facility-Administered Medications as of 03/05/2024 - onabotulinum toxin type A 200 Units injection (BOTOX) Problem List As Of Date 03/05/2024 Noted Resolved Supervision of other normal [Z34.80] 01/26/2005 01/06/2016 CELLULITIS FINGER,PARONYCHIA/ONYCH IA [L03.019] 12/12/2005 01/06/2016 Viral warts, unspecified [B07.9] 12/12/2005 01/06/2016 VISUAL LOSS, ONE EYE NOS [H54.60] 09/17/2006 Pain in joint, lower leg [M25.569] 09/08/2011 01/06/2016 Pain in joint, pelvic region and thigh [M25.559]09/08/2011 01/06/2016 Carpal tunnel syndrome, left [G56.02] 05/09/2012 Right knee pain [M25.561] 06/30/2014 Diverticulosis of intestine without bleeding [K*11/10/2015 Amenorrhea, unspecified [N91.2] 07/20/2015 Leiomyoma of uterus, unspecified [D25.9] 10/07/2015 Major depressive disorder, single episode, unsp*06/15/2015 Pain in right shoulder [M25.511] 10/12/2015 Unspecified asthma, uncomplicated [J45.909] 06/15/2015 Gastro-esophageal reflux disease without esopha*12/13/2015 Anxiety [F41.9] 12/13/2015 Left ovarian cyst [N83.202] 12/13/2015 History of drug abuse [F19.11] 12/13/2015 History of migraine [Z86.69] 12/13/2015 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] 12/13/2015 Kidney stone [N20.0] 12/13/2015 History of seizure [Z87.898] (more content not included)... Normal [facility] BRITTNEY ALCOCER ([id number]) 1975 F NFR Date Time Provider Department 02/28/24 YENNY OSMAN [facility] During your visit today, we recorded the following information about you: Leah Mathew MA 02/28/2024 10:05 AM Signed If [facility] has not replied to your request within 24 hours please contact [employer] at (TTY ). BRITTNEY CARLYN (Louise: [id number]) PA Drug Nurtec 75MG dispersible tablets ePA cloud logo Form [place] [employer] [facility] Electronic PA Form (2016 [facility]) LANDRY [place] Latonya J, MA 02/29/2024 2:02 PM Signed BRITTNEY CARLYN (Louise: [id number]) PA Drug Nurtec 75MG dispersible tablets Approved on February 27 by [employer] 2016 Your PA request for [id number] was approved for 180 days. The PA# assigned is [id number]. Authorization Expiration Date: 08/24/2024 Leah Mathew MA Allergies As of Date: 02/28/2024 Noted Allergy Reaction CITALOPRAM HYDROBROMIDE 10/27/2004 10 - Anaphylaxis Comments: TACHYCARDIA MORPHINE 01/26/2005 8 - GI Upset AMOXICILLIN 10/24/2004 8 - GI Upset 14 - Other: See Comments Comments: Makes me worse ASA (SALICYLATES) 10/27/2004 4 - Hives CHOCOLATE 10/27/2004 EFFEXOR (VENLAFAXINE HCL) 10/27/2004 11 - Vomiting NAPROXEN 02/16/2006 5 - Intolerance Comments: Depression PENICILLIN G 09/08/2021 8 - GI Upset TAPE (ADHESIVE TAPE-SILICONES) 01/27/2021 14 - Other: See Comments Comments: Rash TOMATO 12/21/2020 5 - Intolerance Comments: If cooked cant tolerate them TRAMADOL 10/24/2004 8 - GI Upset TRAZODONE 08/28/2017 1 - Mental Status Change Comments: Causes hallucinations VENLAFAXINE 12/13/2015 16 - Unknown Date Reviewed: 02/18/2024 Reviewed by: Fiona aDve MA - Fully Assessed Reason for Visit: Insurance Authorization [[id number]] Oswaldo/Rupinder/Jolie ell [Other] Prescriptions as of 04/02/2024 - ondansetron orally disintegrating (ZOFRAN ODT) 8 mg disintegrating tablet Take 1 tablet by mouth every 8 hours as needed for nausea/vomiting. - rimegepant (NURTEC ODT) 75 mg disintegrating tablet Take 1 tablet at onset of headache/migraine. Only take 1 tablet as single dose in 24 hour period. - albuterol HFA (PROVENTIL HFA, VENTOLIN HFA) 90 mcg/actuation inhaler Inhale 2 Puffs as instructed every 4 hours as needed for wheezing/shortness of breath. - mirabegron (MYRBETRIQ) 50 mg Tb24 Take 1 tablet by mouth once daily. - fremanezumab-vfrm subcutaneus auto-injector 225 mg/1.5 mL (AJOVY) Inject 1.5 mL subcutaneously once every month. Do not shake. - lansoprazole (PREVACID) 30 mg capsule Take 1 capsule by mouth two times a day. - simvastatin (ZOCOR) 20 mg tablet Take 2 tablets by mouth daily at bedtime. - gabapentin (NEURONTIN) 800 mg tablet Take 1 tablet by mouth four times daily for 180 days. - loratadine (CLARITIN) 10 mg tablet take 1 tablet by mouth once daily - MEDICATION, NON-DATABASE Marijuana for migraines Facility-Administered Medications as of 04/02/2024 - onabotulinum toxin type A 200 Units injection (BOTOX) Problem List As Of Date 02/28/2024 Noted Resolved Supervision of other normal [Z34.80] 01/26/2005 01/06/2016 CELLULITIS FINGER,PARONYCHIA/ONYCH IA [L03.019] 12/12/2005 01/06/2016 Viral warts, unspecified [B07.9] 12/12/2005 01/06/2016 VISUAL LOSS, ONE EYE NOS [H54.60] 09/17/2006 Pain in joint, lower leg [M25.569] 09/08/2011 01/06/2016 Pain in joint, pelvic region and thigh [M25.559]09/08/2011 01/06/2016 Carpal tunnel syndrome, left [G56.02] 05/09/2012 Right knee pain [M25.561] 06/30/2014 Diverticulosis of intestine without bleeding [K*11/10/2015 Amenorrhea, unspecified [N91.2] 07/20/2015 Leiomyoma of uterus, unspecified [D25.9] 10/07/2015 Major depressive disorder, single episode, unsp*06/15/2015 Pain in right shoulder [M25.511] 10/12/2015 Unspecified asthma, uncomplicated [J45.909] 06/15/2015 Gastro-esophageal reflux disease without esopha*12/13/2015 Anxiety [F41.9] 12/13/2015 Left ovarian cyst [N83.202] 12/13/2015 History of drug abuse [F19.11] 12/13/2015 History of migraine [Z86.69] 12/13/2015 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] 12/13/2015 Kidney stone [N20.0] 12/13/2015 History of seizure [Z87.898] 12/13/2015 History of renal cell cancer [Z85.528] 01/06/2016 Renal neoplasm [D49.519] 04/27/2016 Occipital neuralgia of right side [M54.81] 08/15/2016 Eustachian tube dysfunction, bilateral [H69.93] 10/11/2016 Lumbar radiculopathy [M54.16] 10/11/2016 Leg weakness, bilateral [R29.898] 10/11/2016 Chronic bilateral low back pain with bilateral *10/11/2016 Chronic right-sided thoracic back pain [M54.6, *10/11/2016 Paresthesia of bilateral legs [R20.2] 10/11/2016 Osteoarthritis of spine with radiculopathy, lum* (more content not included)... Normal [facility] Office Visiton 02-28-2024 Follow-up visit [id number] Brittney Alcocer 1975 F Date Provider Department [facility] 02/28[facility]2024 [id number] None No family history on file Level of Service:61067 MA OFFICE/OUTPATIENT NEW LOW MDM 30 MINUTES Reason for Visit and Comments: New Patient [542] - Left ring finger injury Normal [facility] Progress Noteon 02-28-2024 Progress Note [facility] [place] [address] [place] [address] [place] [address] Dept: [phone] Dept 02/28/2024 Chief Complaint Patient presents with New Patient Left ring finger injury HISTORY Brittney Alcocer is a 49 y.o. right handed female that presents for evaluation and treatment after sustaining an injury to her LEFT ring finger that occurred approximately 6 day(s) ago. 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 Mechanism of injury -left ring finger caught in dog leash. Treatment up to this point has consisted of XRays, pain medicine, and splinting in the emergency room. Brittney currently rates her pain as moderate, and describes it as aching, worse with attempted use of extremity, and improved with rest and elevation. Patient reports that she has been wearing AlumaFoam splint about her left ring finger since she was seen in the emergency department. Pain has improved in her left ring finger although still some pain at the distal aspect. Denies any numbness or tingling in fingers. No other concerns noted today. No results found for: HGBA1C No past surgical history on file. Past Medical History: Diagnosis Date Bipolar 1 disorder ([facility]) History of heart attack Migraine Myocardial infarction ([facility]) PTSD (post-traumatic stress disorder) Stroke ([facility]) Tendonitis No family history on file. Social History Socioeconomic History Marital status: Spouse name: Not on file Number of children: Not on file Years of education: Not on file Highest education level: Not on file Occupational History Not on file Tobacco Use Smoking status: Every Day Types: Cigarettes Smokeless tobacco: Not on file Substance and Sexual Activity Alcohol use: Not Currently Drug use: Yes Types: Marijuana Comment: History of crack cocaine use Sexual activity: Not on file Other Topics Concern Not on file Social History Narrative Not on file Social Drivers of Health Financial Resource Strain: Not on file Food Insecurity: Not on file Transportation Needs: Not on file Physical Activity: Not on file Stress: Not on file Social Connections: Not on file Intimate Partner Violence: Not on file Housing Stability: Not on file Allergies Allergen Reactions Chocolate Anaphylaxis Citalopram Anaphylaxis Naproxen Anaphylaxis Amoxicillin Codeine Other Effexor [Venlafaxine] Milk (Cow) Nausea And Vomiting Morphine Other and Unknown States she can take Morphine, but requires nausea medication with it Salicylates Other Tramadol Other reaction(s): Other Trazodone And Nefazodone Tomato Rash Wound Dressing Adhesive Rash Current Outpatient Medications Medication Sig Dispense Refill Atorvastatin Calcium (LIPITOR PO) Take by mouth. famotidine (Pepcid) 10 MG tablet Take by mouth. GABAPENTIN PO Take by mouth. lansoprazole (Prevacid) [address] capsule Take by mouth every morning (before breakfast). Do not crush or chew. Loratadine (CLARITIN PO) Take by mouth. methylPREDNISolone (Medrol) 4 MG tablet Take 4 mg by mouth daily. onabotulinumtoxinA (Botox) 100 units injection Inject into the shoulder, thigh, or buttocks Once. Rimegepant Sulfate (Nurtec) 75 MG tablet dispersible Take by mouth. cyclobenzaprine (Flexeril) 10 MG tablet Take 1 tablet (10 mg) by mouth Nightly for 10 days. 10 tablet 0 No current facility-administered medications for this visit. OBJECTIVE Ht 4' 10 (1.473 m) Wt 182 lb (82.6 kg) BMI 38.04 kg/m? Ortho Exam Left hand: Skin intact. Nailbed about ring finger intact. Swelling and tenderness to palpation noted about the left ring finger overlying the distal phalanx and DIP joint. Able to fully extend all fingers including the ring finger. Able to flex all fingers except for limited flexion noted above left ring finger DIP joint, likely secondary to pain from known fracture. Sensation intact light touch throughout the fingers. Fingers warm well-perfused. IMAGING Plain films were reviewed by myself from a previous date. 2V FINGER (AP and LAT) show left ring finger distal phalanx fracture that is transverse in nature and minimally displaced in acceptable alignment for nonoperative management PROCEDURE None ASSESSMENT 1. Closed displaced fracture of distal phalanx of left ring finger, initial encounter [facility] [place] [facility] PLAN I discussed with Brittney the natural history, expected outcome, and risks/benefits of both operative and nonoperative management of her particular fracture relative to her age, activity level, most recent imaging, and physical exam. Brittney had some excellent questions, all of which were answered to her satisfaction. Brittney elected to proceed with conservative treatment to include splinting. Patient was fitted with a stax splint for her left ring finger and instructed on appropriate splint wear and activity restrictions. She was also give (more content not included)... Normal [facility] ED Nursing Noteon 02-22-2024 ED Nursing Note Ice applied to left hand. Normal [facility] ED Nursing Note Patient to room 2 wi th c/o left hand fourth digit pain after her dog took off while she was holding the lease. V/S obtained, call light within reach. Normal [facility] ED Provider Noteon ED Provider Note EMERGENCY DEPARTMENT ENCOUNTER Pt Name: Brittney Alcocer Birthdate 1975 Date of evaluation: 02/22/2024 ED Provider: Monique Palma MD CHIEF COMPLAINT Chief Complaint Patient presents with Hand Pain HISTORY OF PRESENT ILLNESS (Location/Symptom, Timing/Onset, Context/Setting, Quality, Duration, Modifying Factors, Severity) Note limiting factors. [facility] Brittney Alcocer is a 49 y.o. female who presents to the emergency department after a finger injury. Patient states that she was trying to get the leash attached to her dog today and her left ring finger ended up getting caught. Having pain at the DIP joint of the finger. No laceration or wound. Denies any other injuries. Nursing Notes were reviewed. REVIEW OF SYSTEMS Review of Systems Pertinent positives and negatives per HPI PAST MEDICAL HISTORY Past Medical History: Diagnosis Date Bipolar 1 disorder (HCC) History of heart attack Migraine Myocardial infarction (HCC) PTSD (post-traumatic stress disorder) Stroke ([facility]) Tendonitis SURGICAL HISTORY History reviewed. No pertinent surgical history. CURRENT MEDICATIONS Previous Medications ATORVASTATIN CALCIUM (LIPITOR PO) Take by mouth. CYCLOBENZAPRINE (FLEXERIL) 10 MG TABLET Take 1 tablet (10 mg) by mouth Nightly for 10 days. FAMOTIDINE (PEPCID) 10 MG TABLET Take by mouth. GABAPENTIN PO Take by mouth. LANSOPRAZOLE (PREVACID) [address] CAPSULE Take by mouth every morning (before breakfast). Do not crush or chew. LORATADINE (CLARITIN PO) Take by mouth. METHYLPREDNISOLONE (MEDROL) 4 MG TABLET Take 4 mg by mouth daily. ONABOTULINUMTOXINA (BOTOX) 100 UNITS INJECTION Inject into the shoulder, thigh, or buttocks Once. RIMEGEPANT SULFATE (NURTEC) 75 MG TABLET DISPERSIBLE Take by mouth. ALLERGIES Chocolate, Citalopram, Naproxen, Amoxicillin, Codeine, Effexor [venlafaxine], Milk (cow), Morphine, Salicylates, Tramadol, Trazodone and nefazodone, Tomato, and Wound dressing adhesive FAMILY HISTORY No family history on file. SOCIAL HISTORY Social History Socioeconomic History Marital status: Tobacco Use Smoking status: Every Day Types: Cigarettes Substance and Sexual Activity Alcohol use: Not Currently Drug use: Yes Types: Marijuana Comment: History of crack cocaine use SCREENINGS PHYSICAL EXAM ED Triage Vitals [02/22/24 1710] Temp Heart Rate Resp BP 36.7 ?C (98 ?F) 88 16 (!) 141/68 SpO2 Temp Source Heart Rate Source Patient Position 99 % Oral -- -- BP Location FiO2 (%) -- -- Physical Exam Well-appearing patient in no acute distress. Vital signs reviewed and unremarkable. Patient has some edema as well as tenderness to the DIP joint of the left ring finger. No obvious dislocation. Brisk capillary refill. Normal sensation. Pain with any range of motion of the DIP joint. DIAGNOSTIC RESULTS RADIOLOGY (Per Emergency Physician): Interpretation per the Radiologist below, if available at the time of this note: XR fingers 2+ views left Final Result 1. Fracture left ring finger distal phalanx. Report Dictated on Electronically Signed By: Tray Stokes MD Electronically Signed Date/Time: 02/22/2024 5:43 PM EST LABS: Labs Reviewed - No data to display All other labs were within normal range or not returned as of this dictation. EMERGENCY DEPARTMENT COURSE and DIFFERENTIAL DIAGNOSIS/MDM: Vitals: Vitals: 02/22/24 1710 BP: (!) 141/68 Pulse: 88 Resp: 16 Temp: 36.7 ?C (98 ?F) TempSrc: Oral SpO2: 99% Weight: 82.6 kg (182 lb) Height: 1.473 m (4' 10) Medications - No data to display Medical Decision Making 49-year-old female presenting the emergency department today for finger injury. Afebrile hemodynamically stable. On exam has some pain to the DIP joint. Concern for fracture versus dislocation versus sprain. X-ray imaging ordered. Does not want pain medications at this time. I reviewed her x-ray imaging and my interpretation is that she is a transverse fracture through the distal phalanx at the base of it. No obvious dislocation or displacement. Placed in a finger splint by myself and will be discharged with follow-up with hand surgery. Discharged in stable condition. Diagnostic tests considered but not performed: External records reviewed: Diagnostics interpreted by me: xray finger Discussions with other clinicians: Chronic conditions impacting care: Social determinants of health affecting care: ED Medications managed: Medications - No data to display Prescription drugs considered: Debra Palma MD am the fire chief's aide of record. FINAL IMPRESSION 1. Closed nondisplaced fracture of distal phalanx of left ring finger, initial encounter DISPOSITION Discharge 02/22/2024 05:45:24 PM PATIENT REFERRED TO: [facility] - [address] [id number] (more content not included)... Normal [facility] L/S Spine Min 4 Viewson 02-05 L/S Spine Min 4 Views [facility] [address] [place] [address] L/S Spine Min 4 Views MR#: [id number] Acct: [id number] Name: BRITTNEY ALCOCER Rep #: [id number] : 1975 F 49 From: Suresh Menjivar MD PCP: Cristobal Otoole, LOAN COUNSELOR-C Status: DEP AMB Study: L/S Spine Min 4 Views Date of Exam: 02/22/24 Exam# [id number] Ordering Dr: Brit Ramsey [id number] STUDY: X-RAY - LUMBAR SPINE REASON FOR EXAM: Female, 49 years old. Radiating low back pain TECHNIQUE: 4 view(s) of the lumbar spine were obtained. COMPARISON: None FINDINGS: Normal lumbar lordosis. There is no substantial scoliosis. There is a normal alignment of the vertebrae. Normal vertebral bodies and endplates. Normal disc space heights. There is no demonstrated fracture. No instability noted on the flexion or extension views. Retained stool noted throughout the colon RAD/L/S Spine Min 4 Views IMPRESSION: No acute abnormalities, no instability Electronically Signed: Timo Menjivar MD at 10:30 EST , CC: GILA Otoole; SHAHZAD Caal Brick Picker: Signed Normal [facility] No Panel Informationon 02-21 Monique Palma MD 02/22/2024 5:56 PM Splint Application Performed by: Monique Palma MD Authorized by: Monique Palma MD Consent: Consent obtained: Verbal [place] protocol: Patient identity confirmed: Verbally with patient Pre-procedure details: Distal neurologic exam: Normal Distal perfusion: distal pulses strong Procedure details: Location: Finger Finger location: L ring finger Strapping: no Cast type: Finger Splint type: Finger Supplies: Aluminum splint Attestation: Splint applied and adjusted personally by me Post-procedure details: Distal neurologic exam: Normal Distal perfusion: distal pulses strong and brisk capillary refill Procedure completion: Tolerated Post-procedure imaging: not applicable [facility] Orthopedic Visit Reporton Orthopedic Visit Report [facility] [address] [place] [address] OFFICE VISIT Date of Service: 02/22/24 MR#: [id number] Acct: [id number] Name: BRITTNEY ALCOCER Rep #: [id number] : 1975 Provider: SHAHZAD Caal Age/Sex: 49/F Location[place] [facility] [place] Status: Signed Intake Vital Signs 11/08/23 19:41 02/22/24 08:04 Height 4 ft 10 in 4 ft 10 in Weight: 184 lb 4 oz BMI 38.5 Intake Visit Reasons: LUMBAR SPINE Allergies adhesive tape Allergy (Verified 02/22/24 08:04) Rash amoxicillin (Amoxicillin) Allergy (Verified 02/22/24 08:04) Anaphylaxis aspirin (ASA) Allergy (Verified 02/22/24 08:04) Other chocolate flavor Allergy (Verified 02/22/24 08:04) Anaphylaxis citalopram hydrobromide (From Celexa) Allergy (Verified 02/22/24 08:04) Anaphylaxis naproxen (From Naprosyn) Allergy (Verified 02/22/24 08:04) Anaphylaxis tomato (Tomato) Allergy (Verified 02/22/24 08:04) Rash venlafaxine HCl (From Effexor) Allergy (Verified 02/22/24 08:04) Anaphylaxis acetaminophen (From Tylenol-Codeine #3) Adverse Reaction (Verified 02/22/24 08:04) Other codeine phosphate (From Tylenol-Codeine #3) Adverse Reaction (Verified 02/22/24 08:04) Other milk Adverse Reaction (Verified 02/22/24 08:04) Nausea morphine Adverse Reaction (Verified 02/22/24 08:04) Unknown tramadol Adverse Reaction (Verified 02/22/24 08:04) Other Medications ???Medication ???Instructions ???Recorded ???Confirmed ???Type loratadine 10 mg tablet 10 mg PO DAILY 08/27/18 02/22/24 History albuterol sulfate 90 mcg/actuation 1 - 2 puff inhalation Q4H PRN PRN 09/02/18 02/22/24 History aerosol inhaler Sob /Or Wheezing ondansetron 4 mg disintegrating 8 mg PO Q12H PRN PRN Nausea 09/02/18 02/22/24 History tablet acetaminophen 500 mg tablet 500 mg PO PRN PRN Pain Or Fever 12/02/18 11/08/23 History gabapentin 800 mg tablet 800 mg PO 4X/DAY 12/02/18 02/22/24 History fremanezumab-vfrm 225 mg/1.5 mL 225 mg subcut QMONTH 02/22/24 02/22/24 History subcutaneous auto-injector (Ajovy) lansoprazole 30 mg capsule,delayed 30 mg PO QDAY 02/22/24 02/22/24 History release mirabegron 50 mg tablet,extended 50 mg PO QDAY 02/22/24 02/22/24 History release 24 hr rimegepant 75 mg disintegrating 75 mg PO ONCE PRN 02/22/24 02/22/24 History tablet (Nurtec ODT) simvastatin 20 mg tablet 20 mg PO QDAY 02/22/24 02/22/24 History PFSH Medical History History of kidney cancer Heart attack Right shoulder pain Depression Leiomyoma Diverticulosis Carpal tunnel syndrome Surgical History History of hysterectomy history excision wart third finger right hand ( 09/03/18) s/p left leg surgery Status post carpal tunnel release History of partial nephrectomy S/P excision of lipoma S/P laparoscopic cholecystectomy S/P section Social History household members: significant other Smoking Status: Current every day smoker tobacco type: cigarettes alcohol intake: current alcohol intake frequency: a few times a week substance use type: marijuana HPI LUMBAR SPINE Details: This documentation accurately reflects the service provided and the decisions made by me, SHAHZAD Caal 02/22/24 0759. Part of today???s visit was documented by Elizabeth FERGUSON, acting as scribe. BRITTNEY ALCOCER is a 49 year old F here today NEW patient for low back pain. She has been having the pain for 2 months, She states that she has been going to physical therapy for her legs because she has a hard time standing for long periods of time. She states that she used to be able to stand for 2-3 hours at a time but bow she can only stand 5 minutes. Patient says though that her biggest complaint is pain between her shoulder blades when lifting an item. She says that this pain then radiates into her bilateral arms with the left being worse all the way to her fingers. She denies a certain location for this pain in her arm and says it is the entire arm. She also says that she has noticed worsening balance over the last several years. Says that she feels unsteady on her feet and that she is wobbly when she walks. She has not used any assistive ambulatory device. Physical therapy is helping with her leg. She also have arm and neck pain that she is doing PT on as well. She also has a history of restless leg syndrome which she has had for many years which causes pain and tingling below her knees. She has done physical therapy since October 2023 and initially started by going 2 times per week but over the last month she has gone down to 1 time per week. She is mainly here to figure out what the cause of her pain is. She notes that she used to (more content not included)... Normal [facility] XR Finger - left 2 Viewson 0 02-22-2024 1. Fracture left ring finger distal phalanx. Report Dictated on Electronically Signed By: Tray Stokes MD Electronically Signed Date/Time: 02/22/2024 5:43 PM EST [facility] Patient Name: BRITTNEY MORA : 1975 Exam Date/Time: 02/22/2024 17:20 Procedure: XR FINGERS 2+ VIEWS LEFT Ordering Provider: PALMA YASMIN Reason For Exam: injury to DIP joint LEFT FINGER CLINICAL INDICATION: injury to DIP joint TECHNIQUE: Single, frontal view of left hand and 2 views of the left ring finger. COMPARISON: None. FINDINGS: Coronal-oblique fracture through proximal aspect of ring finger distal phalanx, with slight distraction. No dislocation. Surrounding soft tissue edema. Remainder of osseous and soft tissue structures grossly unremarkable. [facility] Tray Stokes MD - 02/22/2024 Patient Name: BRITTNEY ALCOCER : 1975 Exam Date/Time: 02/22/2024 17:20 Procedure: XR FINGERS 2+ VIEWS LEFT Ordering Provider: PALMA YASMIN Reason For Exam: injury to DIP joint LEFT FINGER CLINICAL INDICATION: injury to DIP joint TECHNIQUE: Single, frontal view of left hand and 2 views of the left ring finger. COMPARISON: None. FINDINGS: Coronal-oblique fracture through proximal aspect of ring finger distal phalanx, with slight distraction. No dislocation. Surrounding soft tissue edema. Remainder of osseous and soft tissue structures grossly unremarkable. IMPRESSION: 1. Fracture left ring finger distal phalanx. Report Dictated on Electronically Signed By: Tray Stokes MD Electronically Signed Date/Time: 02/22/2024 5:43 PM EST [facility] Rad[facility] Study observation (narrative) Leanna Clayton alth XR Finger - left 2 ViewsOrde red By: Tray Stokes on 02-22-2024 [facility]ITT[facility] Work Phone: CNPNon 02-19-2024 CNPN Telephone (AGFAMPLE) BRITTNEY ALCOCER ([id number]) 1975 F NFR Date Time Provider Department 02/19/24 CRISTOBAL OTOOLE During your visit today, we recorded the following information about you: Ceasar Duncan MA 02/19/2024 7:20 AM Signed Received fax from [facility] requesting PT orders to be signed. Placed in red folder. LANDRY Chaparro Kristin C, APRN.[facility] 02/19/2024 5:26 PM Signed Thank you, form is completed and signed. Cristobal Otoole APRN.[employer] LOCOMOTIVE CRANE OPERATOR Ceasar Duncan MA 02/20/2024 7:29 AM Signed Faxed. Placed in scanning. Ceasar Duncan MA Allergies As of Date: 02/19/2024 Noted Allergy Reaction CITALOPRAM HYDROBROMIDE 10/27/2004 10 - Anaphylaxis Comments: TACHYCARDIA MORPHINE 01/26/2005 8 - GI Upset AMOXICILLIN 10/24/2004 8 - GI Upset 14 - Other: See Comments Comments: Makes me worse ASA (SALICYLATES) 10/27/2004 4 - Hives CHOCOLATE 10/27/2004 EFFEXOR (VENLAFAXINE HCL) 10/27/2004 11 - Vomiting NAPROXEN 02/16/2006 5 - Intolerance Comments: Depression PENICILLIN G 09/08/2021 8 - GI Upset TAPE (ADHESIVE TAPE-SILICONES) 01/27/2021 14 - Other: See Comments Comments: Rash TOMATO 12/21/2020 5 - Intolerance Comments: If cooked cant tolerate them TRAMADOL 10/24/2004 8 - GI Upset TRAZODONE 08/28/2017 1 - Mental Status Change Comments: Causes hallucinations VENLAFAXINE 12/13/2015 16 - Unknown Date Reviewed: 02/18/2024 Reviewed by: Fiona Dave MA - Fully Assessed Reason for Visit: Electronic Communication [890] Cmt: PT orders Prescriptions as of 02/20/2024 - rimegepant (NURTEC ODT) 75 mg disintegrating tablet Take 1 tablet at onset of headache/migraine. Only take 1 tablet as single dose in 24 hour period. - nystatin (MYCOSTATIN) 100,000 unit/mL suspension Take 5 mL by mouth four times daily. 1tsp swish in mouth for several minutes, then swallow (or expectorate) 4 times daily until gone. - ondansetron orally disintegrating (ZOFRAN ODT) 8 mg disintegrating tablet Take 1 tablet by mouth every 8 hours as needed for nausea/vomiting. - albuterol HFA (PROVENTIL HFA, VENTOLIN HFA) 90 mcg/actuation inhaler Inhale 2 Puffs as instructed every 4 hours as needed for wheezing/shortness of breath. - mirabegron (MYRBETRIQ) 50 mg Tb24 Take 1 tablet by mouth once daily. - fremanezumab-vfrm subcutaneus auto-injector 225 mg/1.5 mL (AJOVY) Inject 1.5 mL subcutaneously once every month. Do not shake. - lansoprazole (PREVACID) 30 mg capsule Take 1 capsule by mouth two times a day. - simvastatin (ZOCOR) 20 mg tablet Take 2 tablets by mouth daily at bedtime. - gabapentin (NEURONTIN) 800 mg tablet Take 1 tablet by mouth four times daily for 180 days. - loratadine (CLARITIN) 10 mg tablet take 1 tablet by mouth once daily - MEDICATION, NON-DATABASE Marijuana for migraines Facility-Administered Medications as of 02/20/2024 - onabotulinum toxin type A 200 Units injection (BOTOX) Problem List As Of Date 02/19/2024 Noted Resolved Supervision of other normal [Z34.80] 01/26/2005 01/06/2016 CELLULITIS FINGER,PARONYCHIA/ONYCH IA [L03.019] 12/12/2005 01/06/2016 Viral warts, unspecified [B07.9] 12/12/2005 01/06/2016 VISUAL LOSS, ONE EYE NOS [H54.60] 09/17/2006 Pain in joint, lower leg [M25.569] 09/08/2011 01/06/2016 Pain in joint, pelvic region and thigh [M25.559]09/08/2011 01/06/2016 Carpal tunnel syndrome, left [G56.02] 05/09/2012 Right knee pain [M25.561] 06/30/2014 Diverticulosis of intestine without bleeding [K*11/10/2015 Amenorrhea, unspecified [N91.2] 07/20/2015 Leiomyoma of uterus, unspecified [D25.9] 10/07/2015 Major depressive disorder, single episode, unsp*06/15/2015 Pain in right shoulder [M25.511] 10/12/2015 Unspecified asthma, uncomplicated [J45.909] 06/15/2015 Gastro-esophageal reflux disease without esopha*12/13/2015 Anxiety [F41.9] 12/13/2015 Left ovarian cyst [N83.202] 12/13/2015 History of drug abuse [F19.11] 12/13/2015 History of migraine [Z86.69] 12/13/2015 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] 12/13/2015 Kidney stone [N20.0] 12/13/2015 History of seizure [Z87.898] 12/13/2015 History of renal cell cancer [Z85.528] 01/06/2016 Renal neoplasm [D49.519] 04/27/2016 Occipital neuralgia of right side [M54.81] 08/15/2016 Eustachian tube dysfunction, bilateral [H69.93] 10/11/2016 Lumbar radiculopathy [M54.16] 10/11/2016 Leg weakness, bilateral [R29.898] 10/11/2016 Chronic bilateral low back pain with bilateral *10/11/2016 Chronic right-sided thoracic back pain [M54.6, *10/11/2016 Paresthesia of bilateral legs [R20.2] 10/11/2016 Osteoarthritis of spine with radiculopathy, lum*12/20/2016 Obesity, Class III, BMI >= 40 (morbid obesity) *01/12/2017 Migraine with aura, not intractable, without st*01/12/2017 Intervertebral disc disorder with radiculopathy* 8 Jaw pain [R68.84] 03/23/2017 Low back pain with left-sided sciatica [M54 (more content not included)... Normal [facility] CNOVon 02-18-2024 CNOV Office Visit (UCWSTR ) BRITTNEY ALCOCER ([id number]) 1975 F NFR Date Time Provider Department 02/18/24 10:00 AM GLO DALAL [facility] During your visit today, we recorded the following information about you: Temperature Pulse Respiration Blood pressure 97.2 degrees 72/minute 16/minute 124/68 Weight 83.4 kg Glo Dalal APRN.[employer] LOCOMOTIVE CRANE OPERATOR 02/18/2024 11:37 AM Signed Subjective HPI HPI Brittney Alcocer is a 49 year old female who presents today for CC of fall, right shoulder injury. This started 1 day ago. Has tried otc medication for relief. Symptoms are worsened by rom of right shoulder. Denies history of surgery or injury to right shoulder. Denies numbness and tingling of right upper extremity. 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 SYNDROME Unspecified asthma(493.90) occasional inhaler Urinary calculus, unspecified 12/2005 Renal stones: left kidney per CT PAST SURGICAL HISTORY Procedure Laterality Date BLADDER SURGERY HX 08/02/2020 Cystoscopy and Sling CARPAL TUNNEL Left 10/12/2016 Dr. Conner DELIVERY ONLY 1994 , low cervical DELIVERY ONLY 07/26/2005 , low cervical CHOLECYSTECTOMY 1995 COLONOSCOPY 09/03/2017 D. Evangelista. NORMAL. Repeat in 10 years. DILATION AND CURETTAGE DXAND/THER NONOBSTETRIC 2015 Dilation AND curettage X 2 EGD 02/25/2010 Abnormal LES, esophagitis, antral ulcers, retained fluid in stomach, pos H Pylori EGD 04/14/2008 antral gastritis, neg h Pylori EGD W/O BRSH SPEC VARICIES INJ 2021 EGD W/O BRSH SPEC VARICIES INJ 06/29/2021 EGD W/O BRSH SPEC VARICIES INJ 08/28/2023 acute inflammation of the esophagus consistent with GERD LAPAROSCOPY SURG CHOLECYSTECTOMY PAST SURGICAL HISTORY OF 2005 REMOVAL OF FATTY TUMOR FROM R ARM PAST SURGICAL HISTORY OF 2007 Carpal Tunnel Surgery on right wrist PAST SURGICAL HISTORY OF 09/27/2012 left wrist carpal tunnel release PAST SURGICAL HISTORY OF Right 2017 partial nephrectomy VAGINAL HYSTERECTOMY 12/24/2019 WART REMOVAL WHI Right 09/03/2018 Removal of wart on third finger right hand - Dr. Herrera ALLERGIES Citalopram Hydrobromide, Morphine, Amoxicillin, Asa [Salicylates], Chocolate, Effexor [Venlafaxine Hcl], Naproxen, Penicillin G, Tape [Adhesive Tape-Silicones], Tomato, Tramadol, Trazodone, and Venlafaxine MEDICATIONS rimegepant (NURTEC ODT) 75 mg disintegrating tabletTake 1 tablet at onset of headache/migraine. Only take 1 tablet as single dose in 24 hour period.Disp: 8 tabletRfl: 11 nystatin (MYCOSTATIN) 100,000 unit/mL suspensionTake 5 mL by mouth four times daily. 1tsp swish in mouth for several minutes, then swallow (or expectorate) 4 times daily until gone.Disp: 200 mLRfl: 0 ondansetron orally disintegrating (ZOFRAN ODT) 8 mg disintegrating tabletTake 1 tablet by mouth every 8 hours as needed for nausea/vomiting.Disp: 60 tabletRfl: 1 albuterol HFA (PROVENTIL HFA, VENTOLIN HFA) 90 mcg/actuation inhalerInhale 2 Puffs as instructed every 4 hours as needed for wheezing/shortness of breath.Disp: 1 EachRfl: 11 mirabegron (MYRBETRIQ) 50 mg [id number] 1 tablet by mouth once daily.Disp: 30 tabletRfl: 5 fremanezumab-vfrm subcutaneus auto-injector 225 mg/1.5 mL (AJOVY)Inject 1.5 mL subcutaneously once every month. Do not shake.Disp: 1.5 mLRfl: 11 lansoprazole (PREVACID) 30 mg capsuleTake 1 capsule by mouth two times a day.Disp: 60 capsuleRfl: 0 simvastatin (ZOCOR) 20 mg tabletTake 2 tablets by mouth daily at bedtime.Disp: 180 tabletRfl: 3 gabapentin (NEURONTIN) 800 mg tabletTake 1 tablet by mouth four times daily for 180 days.Disp: 120 tabletRfl: 5 loratadine (CLARITIN) 10 mg tablettake 1 tablet by mouth once dailyDisp: 28 tabletRfl: 11 MEDICATION, NON-DATABASEMarijuana for migrainesDisp: Rfl: FAMILY HISTORY Problem Relation Age of Onset Hypertension Mother Psychiatry Mother DEPRESSION other ([facility] (more content not included)... Normal [facility] Duong 02-18-[address] [facility] Telephone (LIZET) BRITTNEY ALCOCER ([id number]) 1975 F NFR Date Time Provider Department 02/18/24 CRISTOBAL OTOOLE During your visit today, we recorded the following information about you: Camille Espinoza MA 02/18/2024 9:59 AM Signed Patient left message stating she fell at work yesterday and her physical therapist told her there is a lump in her right shoulder and she should get a xray. Tried to call patient back to clarify if she was going to be filing workers comp, no answer, left message requesting patient call office back. [email or web address] message also sent. Camille Espinoza MA Allergies As of Date: 02/18/2024 Noted Allergy Reaction CITALOPRAM HYDROBROMIDE 10/27/2004 10 - Anaphylaxis Comments: TACHYCARDIA MORPHINE 01/26/2005 8 - GI Upset AMOXICILLIN 10/24/2004 8 - GI Upset 14 - Other: See Comments Comments: Makes me worse ASA (SALICYLATES) 10/27/2004 4 - Hives CHOCOLATE 10/27/2004 EFFEXOR (VENLAFAXINE HCL) 10/27/2004 11 - Vomiting NAPROXEN 02/16/2006 5 - Intolerance Comments: Depression PENICILLIN G 09/08/2021 8 - GI Upset TAPE (ADHESIVE TAPE-SILICONES) 01/27/2021 14 - Other: See Comments Comments: Rash TOMATO 12/21/2020 5 - Intolerance Comments: If cooked cant tolerate them TRAMADOL 10/24/2004 8 - GI Upset TRAZODONE 08/28/2017 1 - Mental Status Change Comments: Causes hallucinations VENLAFAXINE 12/13/2015 16 - Unknown Date Reviewed: 02/18/2024 Reviewed by: Fiona Dave MA - Fully Assessed Reason for Visit: Patient Question [9397] Prescriptions as of 02/29/2024 - rimegepant (NURTEC ODT) 75 mg disintegrating tablet Take 1 tablet at onset of headache/migraine. Only take 1 tablet as single dose in 24 hour period. - nystatin (MYCOSTATIN) 100,000 unit/mL suspension Take 5 mL by mouth four times daily. 1tsp swish in mouth for several minutes, then swallow (or expectorate) 4 times daily until gone. - ondansetron orally disintegrating (ZOFRAN ODT) 8 mg disintegrating tablet Take 1 tablet by mouth every 8 hours as needed for nausea/vomiting. - albuterol HFA (PROVENTIL HFA, VENTOLIN HFA) 90 mcg/actuation inhaler Inhale 2 Puffs as instructed every 4 hours as needed for wheezing/shortness of breath. - mirabegron (MYRBETRIQ) 50 mg Tb24 Take 1 tablet by mouth once daily. - fremanezumab-vfrm subcutaneus auto-injector 225 mg/1.5 mL (AJOVY) Inject 1.5 mL subcutaneously once every month. Do not shake. - lansoprazole (PREVACID) 30 mg capsule Take 1 capsule by mouth two times a day. - simvastatin (ZOCOR) 20 mg tablet Take 2 tablets by mouth daily at bedtime. - gabapentin (NEURONTIN) 800 mg tablet Take 1 tablet by mouth four times daily for 180 days. - loratadine (CLARITIN) 10 mg tablet take 1 tablet by mouth once daily - MEDICATION, NON-DATABASE Marijuana for migraines Facility-Administered Medications as of 02/29/2024 - onabotulinum toxin type A 200 Units injection (BOTOX) Problem List As Of Date 02/18/2024 Noted Resolved Supervision of other normal [Z34.80] 01/26/2005 01/06/2016 CELLULITIS FINGER,PARONYCHIA/ONYCH IA [L03.019] 12/12/2005 01/06/2016 Viral warts, unspecified [B07.9] 12/12/2005 01/06/2016 VISUAL LOSS, ONE EYE NOS [H54.60] 09/17/2006 Pain in joint, lower leg [M25.569] 09/08/2011 01/06/2016 Pain in joint, pelvic region and thigh [M25.559]09/08/2011 01/06/2016 Carpal tunnel syndrome, left [G56.02] 05/09/2012 Right knee pain [M25.561] 06/30/2014 Diverticulosis of intestine without bleeding [K*11/10/2015 Amenorrhea, unspecified [N91.2] 07/20/2015 Leiomyoma of uterus, unspecified [D25.9] 10/07/2015 Major depressive disorder, single episode, unsp*06/15/2015 Pain in right shoulder [M25.511] 10/12/2015 Unspecified asthma, uncomplicated [J45.909] 06/15/2015 Gastro-esophageal reflux disease without esopha*12/13/2015 Anxiety [F41.9] 12/13/2015 Left ovarian cyst [N83.202] 12/13/2015 History of drug abuse [F19.11] 12/13/2015 History of migraine [Z86.69] 12/13/2015 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] 12/13/2015 Kidney stone [N20.0] 12/13/2015 History of seizure [Z87.898] 12/13/2015 History of renal cell cancer [Z85.528] 01/06/2016 Renal neoplasm [D49.519] 04/27/2016 Occipital neuralgia of right side [M54.81] 08/15/2016 Eustachian tube dysfunction, bilateral [H69.93] 10/11/2016 Lumbar radiculopathy [M54.16] 10/11/2016 Leg weakness, bilateral [R29.898] 10/11/2016 Chronic bilateral low back pain with bilateral *10/11/2016 Chronic right-sided thoracic back pain [M54.6, *10/11/2016 Paresthesia of bilateral legs [R20.2] 10/11/2016 Osteoarthritis of spine with radiculopathy, lum*12/20/2016 Obesity, Class III, BMI >= 40 (morbid obesity) *01/12/2017 Migraine with aura, not intractable, without st*01/12/2017 Intervertebral disc disorder with radiculopathy* 8 Jaw pain [R68.84] 03/23/2017 Low back pain with left-sided sc (more content not included)... Normal [facility] Progress Noteon 02-18-2024 Progress Note [facility] [address] [facility] [address] Dept: [phone] Dept PHYSICAL THERAPY RE-EVALUATION Patient Name: Petar Alcocer : 1975 Date of Service: 02/18/2024 Referring Provider: Cristobal Otoole NP Visit #: 9 Diagnosis: Torticollis General Information Mechanism of injury: Neck/shoulder pain and L UE numbness and tingling. Getting infusions the last few months for migraines and botox injections for the last 4 years to improve. Patient Preferences: Star Precautions/Red Flags: Yes medical precautions: Bipolar disorder, Hx of heart attack, PTSD, CVA, Adhesive allergy, NO TAPING Subjective Chief Complaint: Headaches have been seeming to be better overall and reports that after PT, her headaches have been reduced by 20%. Patient reports she has noticed improved ROM of her neck and strength in the L arm. She fell when she slipped on ice and landed on her R shoulder. Today, this is very painful and limiting. Pain: Current: 4/10 Best: 0/10 Worst: 20/10 Current Level of Function: Lifting is tough and she can only manage light objects 10-20# from the floor; from table can lift 50#. Cannot get on/off floor and has to crawl to object. Having difficulty using the R UE for driving. She cannot hug her dog due to pain in the L trunk. Patient?s Stated Goal: Improve use of L UE and dec pain of neck/arm Outcome Measures Neck Disability Index: (no BRICENO); 26% disability; 02/18/24: = 35% disabilty SPADI: 79.2% disability ; 02/18/24: 58.4% disability Objective CERVICAL SPINE Date Recorded: 02/17/23 Cervical AROM Degrees Flexion (flex) WFL p! Extension (ext) WFL Right side bending (SBR) 40 Left side bending (SBL) 40 Right rotation (rotR) 70 Left rotation (rotL) 65 Deep Neck Flexor (DNF) Endurance Test= 2 seconds p! Palpation: moderate turgor in cervical PVM and L RC (supraspinatus, infraspinatus) , rhomboids Flexibility: moderate limitation in neck mobility to the L SHOULDER Observation: Noting significant swelling on the R shoulder near AC joint and seems like clavicle may be displaced vs just a large/firm increase in swelling. Warm to touch. Advised to call MD to ensure nothing dislocated as she has lots of pain with AC joint testing. Date Recorded: 02/17/23 Upper Extremity ROM (degrees) Right Left AROM PROM AROM PROM Shoulder Flexion 164 p! 150 p! Shoulder Abduction 150 p! 140 p! Shoulder External Rotation (ER) T3 T2 Shoulder Internal Rotation (IR) R mid flank/rib T9 Upper Extremity Strength Right Left Shoulder Flexion 4 4- Shoulder Abduction 4 4 Shoulder External Rotation (ER) 4 4 Shoulder Internal Rotation (IR) 4 4 Elbow Flexion 4 4 Elbow Extension 4 4 Wrist Flexion 5 5 Wrist Extension 5 5 RHD Dynamometer Bank Vault Attendant Strength Testing (measured in lbs.) Date 02/18/2024 R L Full Bank Vault Attendant 45# 55# Tip Pinch 10# 10# Keyfob Bank Vault Attendant 16.5# 15# Tripod 10# 12# Scapular Strength Right Left Lower Trapezius DNT DNT Middle Trapezius DNT DNT Rhomboids DNT DNT Assessment Star is a 49 y.o. patient with chief complaint of neck and L shoulder limitations and pain, who presents with signs and symptoms consistent with cervical radiculopathy and RC involvement to unknown extent. Patients hx of back pain and migraines are factors that may limit or delay progress as expected. The patient would benefit from skilled physical therapy to address decreased strength, decreased range of motion, orthopedic restrictions, pain, soft tissue impairment, and impaired functional activities. Since SOC, patient has noted improvements in L shoulder ROM, neck ROM and improvement in strength. She has recently taken a fall and hit the R shoulder and it is much worse in terms of pain today and notable swelling in the AC joint region. Patient was advised to follow up with MD. Reduction in SPADI indicating improvements overall in function but still demonstrates limitation in strength DNF needed for postural stabilization as well as limitation with using the arms for lifting, and particularly from the floor due to thoracic pain. Continued therapy warranted to reduce pain and improve function. Will reduce to 1x/week as she is compliant and consistent with HEP. Goals General/Ortho Patient will be independent with HEP. (Progressing) Start: 01/10/24 Expected End: 04/18/24 Patient will report decreased pain at neck/shoulder to no more than 5/10 in order to be able to perform ADLs without limitation. (Progressing) Start: 01/10/24 Expected End: 04/18/24 Patient will increase ROM of L shoulder and neck to WFL without increased pain to be able to reach back for bra and back of neck for grooming. (Progressing) Start: 01/10/24 Expected End: 04/18/24 Patient will increase strength in L UE to 4/5 grossly to be able to use L ar (more content not included)... Normal [facility] XR SHLDR >/=3V AP/SANYA AP/OTH R RTon 02-18-2024 XR SHLDR >/=3V AP/SANYA AP/OTHR RT * * *Final Report* * * DATE OF EXAM: Feb 18 2024 11:16AM WOX [id number] - XR SHLDR >/=3V AP/SANYA AP/OTHR RT / PROCEDURE REASON: Injury of right shoulder, initial encounter * * * * Physician Interpretation * * * * EXAM: XR SHLDR >/=3V AP/SANYA AP/OTHR RT HISTORY: Injury of right shoulder, initial encounter Acute right shoulder pain after recent injury. VIEWS: AP, true AP, axillary lateral COMPARISON: 10/09/2015 FINDINGS: No dislocation or acute fracture. Maintained glenohumeral joint space and normal acromiohumeral interval. Low-lying acromion and mild acromioclavicular arthrosis. The acromiohumeral interval is normal. IMPRESSION: No acute bony abnormality. Low-lying acromion and mild acromioclavicular arthrosis. Brick Picker: [email or web address] Transcribe Date/Time: Feb 18 2024 11:16A Dictated by : Viri PECK MD This examination was interpreted and the report reviewed and electronically signed by: Viri PECK MD on Feb 18 2024 11:20AM EST [id number] Normal [facility] Progress Noteon 02-14-2024 Progress Note [facility] [employer] [facility] [employer] [employer] [facility] [employer] [facility] [place] [address] [facility] [address] Dept: [phone] Dept PHYSICAL THERAPY TREATMENT Patient Name: Petar Alcocer : 1975 Date of Service: 02/14/2024 Referring Provider: Cristobal Otoole NP Visit #: 8 Diagnosis: Torticollis Mechanism of injury: Neck/shoulder pain and L UE numbness and tingling. Getting infusions the last few months for migraines and botox injections for the last 4 years to improve. Patient Preferences: Star Precautions/Red Flags: Yes medical precautions: Bipolar disorder, Hx of heart attack, PTSD, CVA, Adhesive allergy, NO TAPING Subjective Reports that things have been better since last visit and denies any radicular pain and reports that pain today is local to neck/UT area and 3/10. She does have inc pain in shoulder when she bends down. Compliance with HEP: Yes Objective Objective measurements not taken today. Treatment Therapeutic Activity # of Activities: 13 Therapeutic Activity 8: Rows standing Activity 8 Comment: 2 x 10 reps RTB Therapeutic Activity 9: B Shoulder extension Activity 9 Comment: RTB 2 x 10 reps Therapeutic Activity 10: paloff press Activity 10 Comment: RTB x 10 reps, x 5 reps Therapeutic Activity 11: lift to eye level shelf Activity 11 Comment: 0.5kg ball x 10 reps ea UE, then x 5 reps ea Therapeutic Activity 12: overhead press Activity 12 Comment: air; 2 x 10 reps Soft Tissue Mobilization Location: R upper trap, cervical PVM Body Position: Prone Comments: STM Joint Mobilization Location: cervical Body Position: Prone Comments: manual traction Other Location: Cervical manual traction Body Position: Supine Home Exercise Program: Deferred Assessment Skilled physical therapy interventions utilized to improve patient?s impairments and work towards established goals. Patient response to treatment: Ability to progress clinical program this date to include more standing and resistance based postural exercises. Added functional lift ot shelf with moderate fatigue. If tolerated these ex well; plan on adding to HEP. Patient will benefit from continued physical therapy to progress home program and functional strength The rationale for today?s treatment was explained to the patient. Verbal cues were provided for correct form with all exercises. Advised patient to continue with Home Exercise Program (HEP). Goals General/Ortho Patient will be independent with HEP. (Progressing) Start: 01/10/24 Expected End: 03/10/24 Patient will report decreased pain at neck/shoulder to no more than 5/10 in order to be able to perform ADLs without limitation. (Progressing) Start: 01/10/24 Expected End: 03/10/24 Patient will increase ROM of L shoulder and neck to WFL without increased pain to be able to reach back for bra and back of neck for grooming. (Progressing) Start: 01/10/24 Expected End: 03/10/24 Patient will increase strength in L UE to 4/5 grossly to be able to use L arm for ADLs (Progressing) Start: 01/10/24 Expected End: 03/10/24 Functional Outcome Measure: Patient will improve NDI to no more than 10 (Not Addressed) Start: 01/10/24 Expected End: 03/10/24 General/Ortho Functional Outcome Measure: Patient will improve SPADI to no more than 15% (Not Addressed) Start: 01/10/24 Expected End: 03/10/24 Plan Plan for next session: add to HEP rows, B sh ext if tolerated from last visit. Progress functional activities; trial UBE if pain was no worse after last visit. Time Entry Total Treatment Time Start Time: 0800 Stop Time: 0830 Time Calculation (min): 30 min PT Therapeutic Procedures Time Entry Therapeutic Activity Time Entry: 17 Manual Therapy Time Entry: 10 Linda Randle, PT, DPT ,NCS Normal [facility] Progress Noteon 02-08-2024 Progress Note [facility] [address] [facility] [address] Dept: [phone] Dept PHYSICAL THERAPY TREATMENT Patient Name: Petar Alcocer : 1975 Date of Service: 02/08/2024 Referring Provider: Cristobal Otoole NP Visit #: 7 Diagnosis: Torticollis Mechanism of injury: Neck/shoulder pain and L UE numbness and tingling. Getting infusions the last few months for migraines and botox injections for the last 4 years to improve. Patient Preferences: Star Precautions/Red Flags: Yes medical precautions: Bipolar disorder, Hx of heart attack, PTSD, CVA, Adhesive allergy, NO TAPING Subjective Reports that she has been doing the exercises and she feels more sore. Reports the prone ones are the worst. Reports 6/10 pain today. Compliance with HEP: Yes Objective Objective measurements not taken today. Treatment Therapeutic Activity # of Activities: 7 Therapeutic Activity 5: supine bilateral shoulder ER Activity 5 Comment: RTN 2x10 Therapeutic Activity 6: bow and arrow supine Activity 6 Comment: RTB 2 x 10 reps Therapeutic Activity 7: Serratus punches B Activity 7 Comment: 2 x 10 reps Soft Tissue Mobilization Location: R upper trap, cervical PVM Body Position: Prone Comments: STM Joint Mobilization Location: cervical Body Position: Prone Comments: manual traction Other Location: Cervical manual traction Body Position: Supine Home Exercise Program: Progressed home exercise program Assessment Skilled physical therapy interventions utilized to improve patient?s impairments and work towards established goals. Patient response to treatment: Modified scapular strengthening this date to supine due to decreased tolerance to standing or prone. Fair tolerance to adjustments. Decreased pain to 4/10 after manual intervention. Patient will benefit from continued physical therapy to progress as tolerated The rationale for today?s treatment was explained to the patient. Verbal cues were provided for correct form with all exercises. Advised patient to continue with Home Exercise Program (HEP). Goals General/Ortho Patient will be independent with HEP. (Progressing) Start: 01/10/24 Expected End: 03/10/24 Patient will report decreased pain at neck/shoulder to no more than 5/10 in order to be able to perform ADLs without limitation. (Progressing) Start: 01/10/24 Expected End: 03/10/24 Patient will increase ROM of L shoulder and neck to WFL without increased pain to be able to reach back for bra and back of neck for grooming. (Progressing) Start: 01/10/24 Expected End: 03/10/24 Patient will increase strength in L UE to 4/5 grossly to be able to use L arm for ADLs (Progressing) Start: 01/10/24 Expected End: 03/10/24 Functional Outcome Measure: Patient will improve NDI to no more than 10 (Progressing) Start: 01/10/24 Expected End: 03/10/24 General/Ortho Functional Outcome Measure: Patient will improve SPADI to no more than 15% (Progressing) Start: 01/10/24 Expected End: 03/10/24 Plan Plan for next session: progress gently and in supine positions. Time Entry Total Treatment Time Start Time: 1130 Stop Time: 1200 Time Calculation (min): 30 min PT Therapeutic Procedures Time Entry Therapeutic Activity Time Entry: 17 Manual Therapy Time Entry: 10 Linda Randle, PT, DPT, NCS [facility] Progress Noteon 02-04-2024 [facility] [address] [place] [address] [facility] [place] [address] Dept: [phone] Dept PHYSICAL THERAPY TREATMENT Patient Name: Petar Alcocer : 1975 Date of Service: 02/04/2024 Referring Provider: Cristobal Otoole NP Visit #: 6 Diagnosis: Torticollis Mechanism of injury: Neck/shoulder pain and L UE numbness and tingling. Getting infusions the last few months for migraines and botox injections for the last 4 years to improve. Patient Preferences: Star Precautions/Red Flags: Yes medical precautions: Bipolar disorder, Hx of heart attack, PTSD, CVA, Adhesive allergy, NO TAPING Subjective 4/10. Neck and shoulder are good, but that pinched nerve is still there. Compliance with HEP: Yes Objective Objective measurements not taken today. Treatment Therapeutic Activity Therapeutic Activity 1: Prone scap retraction Activity 1 Comment: 2 x 10 reps Therapeutic Activity 4: UBE 120 rpm Activity 4 Comment: 3' -changing directions every 30 seconds. Therapeutic Activity 5: supine bilateral shoulder ER Activity 5 Comment: RTN 2x10 Soft Tissue Mobilization Location: R upper trap, cervical PVM Body Position: Supine Comments: STM Other Location: Cervical manual traction Body Position: Supine Home Exercise Program: Deferred Assessment Skilled physical therapy interventions utilized to improve patient?s impairments and work towards established goals. Patient response to treatment: Progressed supine strengthening exercises this date. Patient was fatigued with progression. Patient was fatigued with prone exercises this date. Patient will benefit from continued physical therapy to progress postural and UE strength The rationale for today?s treatment was explained to the patient. Verbal cues were provided for correct form with all exercises. Advised patient to continue with Home Exercise Program (HEP). Goals General/Ortho Patient will be independent with HEP. (Progressing) Start: 01/10/24 Expected End: 03/10/24 Patient will report decreased pain at neck/shoulder to no more than 5/10 in order to be able to perform ADLs without limitation. (Progressing) Start: 01/10/24 Expected End: 03/10/24 Patient will increase ROM of L shoulder and neck to WFL without increased pain to be able to reach back for bra and back of neck for grooming. (Progressing) Start: 01/10/24 Expected End: 03/10/24 Patient will increase strength in L UE to 4/5 grossly to be able to use L arm for ADLs (Progressing) Start: 01/10/24 Expected End: 02/03/25 Functional Outcome Measure: Patient will improve NDI to no more than 10 (Not Addressed) Start: 01/10/24 Expected End: 03/10/24 General/Ortho Functional Outcome Measure: Patient will improve SPADI to no more than 15% (Not Addressed) Start: 01/10/24 Expected End: 03/10/24 Plan Plan for next session: continue with strengthening exercises. Consider supine horizontal abd and prone T, Y Time Entry Total Treatment Time Start Time: 0835 Stop Time: 0900 Time Calculation (min): 25 min PT Therapeutic Procedures Time Entry Therapeutic Activity Time Entry: 13 Manual Therapy Time Entry: 10 Cherelle Valerio PTA Normal [facility] Progress Noteon 01-31-2024 Progress Note [facility] [employer] [facility] [place] [address] [place] [address] [place] [address] Dept: [phone] Dept PHYSICAL THERAPY TREATMENT Patient Name: Petar Alcocer : 1975 Date of Service: 01/31/2024 Referring Provider: Cristobal Otoole NP Visit #: 5 Diagnosis: Torticollis Mechanism of injury: Neck/shoulder pain and L UE numbness and tingling. Getting infusions the last few months for migraines and botox injections for the last 4 years to improve. Patient Preferences: Star Precautions/Red Flags: Yes medical precautions: Bipolar disorder, Hx of heart attack, PTSD, CVA, Adhesive allergy, NO TAPING Subjective 5/10. I get a pain in my shoulder blade when I lean over. Its more a tightness in my shoulder/neck/back area. Compliance with HEP: Yes Objective Objective measurements not taken today. Treatment Therapeutic Activity Therapeutic Activity 1: Prone scap retraction Activity 1 Comment: 2 x 10 reps Therapeutic Activity 2: Prone chin tucks Activity 2 Comment: 2 x 10 reps Therapeutic Activity 3: Prone scap c UE ext Activity 3 Comment: x 10 reps Therapeutic Activity 4: UBE 120 rpm Activity 4 Comment: 3' -changing directions every 30 seconds. Soft Tissue Mobilization Location: R upper trap, cervical PVM Body Position: Supine Comments: [facility] Home Exercise Program: Deferred Assessment Skilled physical therapy interventions utilized to improve patient?s impairments and work towards established goals. Patient response to treatment: Patient completed session with no increase in pain level. Patient required verbal and tactile cues for proper form. Patient was fatigued with added UBE. Patient will benefit from continued physical therapy to progress UE strength and stability. The rationale for today?s treatment was explained to the patient. Verbal cues were provided for correct form with all exercises. Advised patient to continue with Home Exercise Program (HEP). Goals General/Ortho Patient will be independent with HEP. (Progressing) Start: 01/10/24 Expected End: 03/10/24 Patient will report decreased pain at neck/shoulder to no more than 5/10 in order to be able to perform ADLs without limitation. (Progressing) Start: 01/10/24 Expected End: 03/10/24 Patient will increase ROM of L shoulder and neck to WFL without increased pain to be able to reach back for bra and back of neck for grooming. (Progressing) Start: 01/10/24 Expected End: 03/10/24 Patient will increase strength in L UE to 4/5 grossly to be able to use L arm for ADLs (Progressing) Start: 01/10/24 Expected End: 03/10/24 Functional Outcome Measure: Patient will improve NDI to no more than 10 (Not Addressed) Start: 01/10/24 Expected End: 03/10/24 General/Ortho Functional Outcome Measure: Patient will improve SPADI to no more than 15% (Not Addressed) Start: 01/10/24 Expected End: 03/10/24 Plan Plan for next session: progress postural strength and stability as patient can tolerate. Time Entry Total Treatment Time Start Time: 0830 Stop Time: 0900 Time Calculation (min): 30 min PT Therapeutic Procedures Time Entry Therapeutic Activity Time Entry: 13 Manual Therapy Time Entry: 15 Cherelle Valerio PTA [facility] CNOVon 01-25-2024 OV Office Visit (UCWSTR ) BRITTNEY ALCOCER ([id number]) 1975 F NFR Date Time Provider Department 01/25/24 1:15 PM [facility] During your visit today, we recorded the following information about you: Temperature Pulse Respiration Blood pressure 97.3 degrees 68/minute 20/minute 120/79 Weight 82 kg Kevin Baldwin, ARGENIS 01/25/2024 2:26 PM Signed This note was created using [employer]. Subjective Brittney Alcocer is a 49 year old female. HPI Presents with tongue pain and sore throat over the past 2 days. She had some nasal congestion as well. She did get all of her top teeth pulled January 13. She thinks this may be irritated her tongue as it is hitting the roof of her mouth now. She is a smoker. She also does use albuterol. She thinks she was on antibiotic about a month ago as well. Denies history of thrush. She is not diabetic. Review of Systems HENT: Positive for congestion and mouth sores. Negative for ear pain. Respiratory: Negative. Cardiovascular: Negative. Gastrointestinal: Negative. Genitourinary: Negative. Musculoskeletal: Negative. All other systems reviewed and are negative. 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 SYNDROME Unspecified asthma(493.90) occasional inhaler Urinary calculus, unspecified 12/2005 Renal stones: left kidney per CT Current Outpatient Medications Medication Sig Dispense Refill ondansetron orally disintegrating (ZOFRAN ODT) 8 mg disintegrating tablet Take 1 tablet by mouth every 8 hours as needed for nausea/vomiting. 60 tablet 1 albuterol HFA (PROVENTIL HFA, VENTOLIN HFA) 90 mcg/actuation inhaler Inhale 2 Puffs as instructed every 4 hours as needed for wheezing/shortness of breath. 1 Each 11 mirabegron (MYRBETRIQ) 50 mg Tb24 Take 1 tablet by mouth once daily. 30 tablet 5 fremanezumab-vfrm subcutaneus auto-injector 225 mg/1.5 mL (AJOVY) Inject 1.5 mL subcutaneously once every month. Do not shake. 1.5 mL 11 lansoprazole (PREVACID) 30 mg capsule Take 1 capsule by mouth two times a day. 60 capsule 0 simvastatin (ZOCOR) 20 mg tablet Take 2 tablets by mouth daily at bedtime. 180 tablet 3 gabapentin (NEURONTIN) 800 mg tablet Take 1 tablet by mouth four times daily for 180 days. 120 tablet 5 rimegepant (NURTEC ODT) 75 mg disintegrating tablet Take 1 tablet at onset of headache/migraine. Only take 1 tablet as single dose in 24 hour period. 8 tablet 11 loratadine (CLARITIN) 10 mg tablet take 1 tablet by mouth once daily 28 tablet 11 MEDICATION, NON-DATABASE Marijuana for migraines nystatin (MYCOSTATIN) 100,000 unit/mL suspension Take 5 mL by mouth four times daily. 1tsp swish in mouth for several minutes, then swallow (or expectorate) 4 times daily until gone. 200 mL 0 Current Facility-Administered Medications Medication Dose Route Frequency Provider Last Rate Last Admin onabotulinum toxin type A 200 Units injection (BOTOX) 200 Units OTHER q 3 MONTHS Queenie Sparks APRN.GASOLINE LOCOM[employer]IVE CRANE OPERATOR 200 Units at 03/09/23 1030 PAST SURGICAL HISTORY Procedure Laterality Date BLADDER SURGERY HX 08/02/2020 Cystoscopy and Sling CARPAL TUNNEL Left 10/12/2016 Dr. Conner DELIVERY ONLY 1994 , low cervical DELIVERY ONLY 07/26/2005 , low cervical CHOLECYSTECTOMY 1995 COLONOSCOPY 09/03/2017 D. Evangelista. NORMAL. Repeat in 10 years. DILATION AND CURETTAGE DXAND/THER NONOBSTETRIC 2015 Dilation AND curettage X 2 EGD 02/25/2010 Abnormal LES, esophagitis, antral ulcers, retained fluid in stomach, pos H Pylori EGD 04/14/2008 antral gastritis, neg h Pylori EGD W/O [facility] SPEC VARICIES INJ 2021 EGD W/O [facility] SPEC VARICIES INJ 06/29/2021 EGD W/O [facility] SPEC VARICIES INJ 08/28/2023 acute inflammation of the esophagus consistent with GERD LAPAROSCOPY SURG CHOLECYSTECTOMY PAST SURGICAL HISTORY OF 2005 REMOVAL OF FATTY TUMOR FROM R ARM PAST SURGICAL HISTORY OF 2006 Carpal Tunnel Surgery on right wrist PAST SURGICAL HISTORY OF 09/27/2012 left wris (more content not included)... Normal [facility] Progress Noteon 01-24-2024 Progress Note [facility] [address] [place] [address] [place] [address] Dept: [phone] Dept PHYSICAL THERAPY TREATMENT Patient Name: Petar Alcocer : 1975 Date of Service: 01/24/2024 Referring Provider: Cristobal Otoole NP Visit #: 4 Diagnosis: Torticollis Mechanism of injury: Neck/shoulder pain and L UE numbness and tingling. Getting infusions the last few months for migraines and botox injections for the last 4 years to improve. Patient Preferences: Star Precautions/Red Flags: Yes medical precautions: Bipolar disorder, Hx of heart attack, PTSD, CVA, Adhesive allergy, NO TAPING Subjective Reports pain level 7/10 this morning and very sore in the L shoulder/neck. Reports chin tucks do cause more neck stiffness but she has been trying to perform them consistently Compliance with HEP: Yes Objective Objective measurements not taken today. Treatment Therapeutic Activity # of Activities: 4 Therapeutic Activity 1: Prone scap retraction Activity 1 Comment: 2 x 10 reps Therapeutic Activity 2: Prone chin tucks Activity 2 Comment: 2 x 10 reps Therapeutic Activity 3: Prone scap c UE ext Activity 3 Comment: x 10 reps Soft Tissue Mobilization Location: L upper trap, cervical PVM Body Position: Supine Comments: STM Other Location: Cervical manual traction Body Position: Supine Comments: 5 x 45 sec holds Home Exercise Program: Progressed home exercise program Assessment Skilled physical therapy interventions utilized to improve patient?s impairments and work towards established goals. Patient response to treatment: Patient notes relief consistently with manual traction though the last round performed did reports some numbness in the L UE that was reduced after stopping activity. Progression of prone scap/chin tucks tolerated well without increased pain but notes challenging. Patient will benefit from continued physical therapy to progress postural stabilization, ROM and continue manual intervention for pain reduction. The rationale for today?s treatment was explained to the patient. Verbal cues were provided for correct form with all exercises. Advised patient to continue with Home Exercise Program (HEP). Goals General/Ortho Patient will be independent with HEP. (Progressing) Start: 01/10/24 Expected End: 03/10/24 Patient will report decreased pain at neck/shoulder to no more than 5/10 in order to be able to perform ADLs without limitation. (Not Progressing) Start: 01/10/24 Expected End: 03/10/24 Patient will increase ROM of L shoulder and neck to WFL without increased pain to be able to reach back for bra and back of neck for grooming. (Progressing) Start: 01/10/24 Expected End: 03/10/24 Patient will increase strength in L UE to 4/5 grossly to be able to use L arm for ADLs (Progressing) Start: 01/10/24 Expected End: 03/10/24 Functional Outcome Measure: Patient will improve NDI to no more than 10 (Not Addressed) Start: 01/10/24 Expected End: 03/10/24 General/Ortho Functional Outcome Measure: Patient will improve SPADI to no more than 15% (Not Addressed) Start: 01/10/24 Expected End: 03/10/24 Plan Plan for next session: postural stabilization, ROM and continue manual intervention for pain reduction. Time Entry Total Treatment Time Start Time: 0800 Stop Time: 0830 Time Calculation (min): 30 min PT Therapeutic Procedures Time Entry Therapeutic Activity Time Entry: 10 Manual Therapy Time Entry: 19 Linda Randle, PT, DPT, NCS Normal [facility] Progress Noteon 01-21-2024 Progress Note [facility] AT [facility] [address] [facility] [address] Dept: [phone] Dept PHYSICAL THERAPY TREATMENT Patient Name: Petar Alcocer : 1975 Date of Service: 01/21/2024 Referring Provider: Cristobal Otoole NP Visit #: 3 Diagnosis: Torticollis Mechanism of injury: Neck/shoulder pain and L UE numbness and tingling. Getting infusions the last few months for migraines and botox injections for the last 4 years to improve. Patient Preferences: Star Subjective Pt reports pain at upper thoracic spine with bending forward. Pain has been more bothersome since beginning HEP. Current pain 7-8/10 at mid thoracic with bending down. Avoiding using L UE to drive. Compliance with HEP: Yes Objective Objective measurements not taken today. Treatment Therapeutic Exercise Therapeutic Exercise Activity 1: chin tucks Activity 1 Comment: 1 x 10 Therapeutic Exercise Activity 5: seated thorcic extension with towel roll Activity 5 Comment: 1 x 5 Therapeutic Exercise Activity 17: Pulleys flex Activity 17 Comment: 2 min Soft Tissue Mobilization Location: L upper trap Body Position: Supine Comments: STM Joint Mobilization Location: cervical Body Position: Supine Comments: gentle PA and rotational mobs Other Location: Cervical manual traction Body Position: Supine Comments: 5 x 45 sec holds Home Exercise Program: Deferred Assessment Skilled physical therapy interventions utilized to improve patient?s impairments and work towards established goals. Patient response to treatment: attempted thoracic extension, pt reported increased 'nerve pain'. Pt c/o increased central cervical pain with seated chin tuck. Relief of neck and L shoulder pain during manual cervical traction. Pt tender to palpation at C 5-6, and L upper trap. Patient will benefit from continued physical therapy to decrease pain, symptoms; improve strength and function. The rationale for today?s treatment was explained to the patient. Verbal cues were provided for correct form with all exercises. Advised patient to continue with Home Exercise Program (HEP). Goals General/Ortho Patient will be independent with HEP. (Not Progressing) Start: 01/10/24 Expected End: 03/10/24 Patient will report decreased pain at neck/shoulder to no more than 5/10 in order to be able to perform ADLs without limitation. (Not Progressing) Start: 01/10/24 Expected End: 03/10/24 Patient will increase ROM of L shoulder and neck to WFL without increased pain to be able to reach back for bra and back of neck for grooming. (Not Progressing) Start: 01/10/24 Expected End: 03/10/24 Patient will increase strength in L UE to 4/5 grossly to be able to use L arm for ADLs (Not Progressing) Start: 01/10/24 Expected End: 03/10/24 Functional Outcome Measure: Patient will improve NDI to no more than 10 (Not Addressed) Start: 01/10/24 Expected End: 03/10/24 General/Ortho Functional Outcome Measure: Patient will improve SPADI to no more than 15% (Not Addressed) Start: 01/10/24 Expected End: 03/10/24 Plan Plan for next session: assess response to increased MT. Progress as tolerated Time Entry Total Treatment Time Start Time: 1025 Stop Time: 1053 Time Calculation (min): 28 min PT Therapeutic Procedures Time Entry Therapeutic Exercise Time Entry: 10 Manual Therapy Time Entry: 18 Lindsey Mcgregor PTA [facility] Progress Noteon 01-17-2024 Progress Note [facility] [address] [place] [address] [place] [address] Dept: [phone] Dept PHYSICAL THERAPY TREATMENT Patient Name: Petar Alcocer : 1975 Date of Service: 01/17/2024 Referring Provider: Cristobal Otoole NP Visit #: 2 Diagnosis: Anesthesia of skin Mechanism of injury: Neck/shoulder pain and L UE numbness and tingling. Getting infusions the last few months for migraines and botox injections for the last 4 years to improve. Patient Preferences: Star Precautions/Red Flags: Yes medical precautions: Bipolar disorder, Hx of heart attack, PTSD, CVA, Adhesive allergy, NO TAPING Subjective Patient reports she just had surgery on her teeth on Sunday, and it has increased her pain levels in her upper back. She hasn't been compliant with her exercises because of trying to lay down and recuperate. Patient reports pain in upper back at 6-7/10. She gets increased pain with bending down and looking to the right side. Compliance with HEP: No Objective Objective measurements not taken today. Treatment Therapeutic Exercise # of Activities: 17 Therapeutic Exercise Activity 1: chin tucks Activity 1 Comment: 1 x 10 (corrected form, patient reported decreased pain after performing) Therapeutic Exercise Activity 10: Scap retraction in supine Activity 10 Comment: 1 x 10 Therapeutic Exercise Activity 16: Supine AAROM L shoulder dowel flexion Activity 16 Comment: 2 x 10 Therapeutic Exercise Activity 17: Pulleys flex Activity 17 Comment: 2 min Other Location: Cervical manual traction Body Position: Supine Comments: 5 x 45 sec holds Home Exercise Program: Deferred Assessment Skilled physical therapy interventions utilized to improve patient?s impairments and work towards established goals. Patient response to treatment: Patient had increased pain with use of dowel for AAROM, but did not have increased pain with pulleys. Avoided any prone exercises due to recent dental surgery. Patient had reduction in symptoms with chin tucks and manual traction, and corrected form on chin tucks. Advised patient to perform chin tucks as frequently as needed to reduce symptoms. Patient is progressing towards goals for ROM and pain reduction. Patient will benefit from continued physical therapy to continue to progress L shoulder ROM and reduce symptoms for return to PLOF. The rationale for today?s treatment was explained to the patient. Verbal cues were provided for correct form with all exercises. Advised patient to continue with Home Exercise Program (HEP). Goals General/Ortho Patient will be independent with HEP. (Progressing) Start: 01/10/24 Expected End: 03/10/24 Patient will report decreased pain at neck/shoulder to no more than 5/10 in order to be able to perform ADLs without limitation. (Progressing) Start: 01/10/24 Expected End: 03/10/24 Patient will increase ROM of L shoulder and neck to WFL without increased pain to be able to reach back for bra and back of neck for grooming. (Progressing) Start: 01/10/24 Expected End: 03/10/24 Patient will increase strength in L UE to 4/5 grossly to be able to use L arm for ADLs (Progressing) Start: 01/10/24 Expected End: 03/10/24 Functional Outcome Measure: Patient will improve NDI to no more than 10 (Not Addressed) Start: 01/10/24 Expected End: 03/10/24 General/Ortho Functional Outcome Measure: Patient will improve SPADI to no more than 15% (Not Addressed) Start: 01/10/24 Expected End: 03/10/24 Plan Plan for next session: Continue pulleys for AAROM, manual cervical traction PRN. Assess if patient was able to get back to regular HEP, and try prone strengthening when dental surgery pain is gone. Time Entry Total Treatment Time Start Time: 1400 Stop Time: 1427 Time Calculation (min): 27 min PT Therapeutic Procedures Time Entry Therapeutic Exercise Time Entry: 17 Manual Therapy Time Entry: 8 Amie Loyola PTA [facility] CNPNon 01-11-2024 ERENDIRAN Telephone (LIZET) BRITTNEY ALCOCER ([id number]) 1975 F NFR Date Time Provider Department 01/11/24 CRISTOBAL OTOOLE During your visit today, we recorded the following information about you: Ceasar Duncan MA 01/11/2024 7:46 AM Signed Received fax from [facility] requesting signature for insurance coverage. Placed in red folder. LANDRY Chaparro Kristin C, APRN.[facility] 01/11/2024 8:29 AM Signed Thank you, form is completed and signed. Cristobal Otoole APRN.Ceasar Bradford MA 01/11/2024 9:26 AM Signed Faxed. Placed in scanning. Ceasar Duncan MA Allergies As of Date: 01/11/2024 Noted Allergy Reaction CITALOPRAM HYDROBROMIDE 10/27/2004 10 - Anaphylaxis Comments: TACHYCARDIA MORPHINE 01/26/2005 8 - GI Upset AMOXICILLIN 10/24/2004 8 - GI Upset 14 - Other: See Comments Comments: Makes me worse ASA (SALICYLATES) 10/27/2004 4 - Hives CHOCOLATE 10/27/2004 EFFEXOR (VENLAFAXINE HCL) 10/27/2004 11 - Vomiting NAPROXEN 02/16/2006 5 - Intolerance Comments: Depression PENICILLIN G 09/08/2021 8 - GI Upset TAPE (ADHESIVE TAPE-SILICONES) 01/27/2021 14 - Other: See Comments Comments: Rash TOMATO 12/21/2020 5 - Intolerance Comments: If cooked cant tolerate them TRAMADOL 10/24/2004 8 - GI Upset TRAZODONE 08/28/2017 1 - Mental Status Change Comments: Causes hallucinations VENLAFAXINE 12/13/2015 16 - Unknown Date Reviewed: 01/01/2024 Reviewed by: Snow Quick PA-C - Fully Assessed Reason for Visit: Patient Update [1234] Prescriptions as of 01/11/2024 - polyethylene glycol 3350 (MIRALAX) 17 gram/dose powder Take 17 g by mouth once daily. Dissolve dose in 4 - 8 ounces of liquid and take as directed. - ondansetron orally disintegrating (ZOFRAN ODT) 8 mg disintegrating tablet Take 1 tablet by mouth every 8 hours as needed for nausea/vomiting. - diclofenac, EC, (VOLTAREN) 75 mg EC tablet Take 1 tablet by mouth every 12 hours. - clindamycin (CLEOCIN) 150 mg capsule take 1 capsule by mouth three times daily until gone - albuterol HFA (PROVENTIL HFA, VENTOLIN HFA) 90 mcg/actuation inhaler Inhale 2 Puffs as instructed every 4 hours as needed for wheezing/shortness of breath. - mirabegron (MYRBETRIQ) 50 mg Tb24 Take 1 tablet by mouth once daily. - fremanezumab-vfrm subcutaneus auto-injector 225 mg/1.5 mL (AJOVY) Inject 1.5 mL subcutaneously once every month. Do not shake. - lansoprazole (PREVACID) 30 mg capsule Take 1 capsule by mouth two times a day. - simvastatin (ZOCOR) 20 mg tablet Take 2 tablets by mouth daily at bedtime. - gabapentin (NEURONTIN) 800 mg tablet Take 1 tablet by mouth four times daily for 180 days. - rimegepant (NURTEC ODT) 75 mg disintegrating tablet Take 1 tablet at onset of headache/migraine. Only take 1 tablet as single dose in 24 hour period. - loratadine (CLARITIN) 10 mg tablet take 1 tablet by mouth once daily - MEDICATION, NON-DATABASE Marijuana for migraines Facility-Administered Medications as of 01/11/2024 - onabotulinum toxin type A 200 Units injection (BOTOX) Problem List As Of Date 01/11/2024 Noted Resolved Supervision of other normal [Z34.80] 01/26/2005 01/06/2016 CELLULITIS FINGER,PARONYCHIA/ONYCH IA [L03.019] 12/12/2005 01/06/2016 Viral warts, unspecified [B07.9] 12/12/2005 01/06/2016 VISUAL LOSS, ONE EYE NOS [H54.60] 09/17/2006 Pain in joint, lower leg [M25.569] 09/08/2011 01/06/2016 Pain in joint, pelvic region and thigh [M25.559]09/08/2011 01/06/2016 Carpal tunnel syndrome, left [G56.02] 05/09/2012 Right knee pain [M25.561] 06/30/2014 Diverticulosis of intestine without bleeding [K*11/10/2015 Amenorrhea, unspecified [N91.2] 07/20/2015 Leiomyoma of uterus, unspecified [D25.9] 10/07/2015 Major depressive disorder, single episode, unsp*06/15/2015 Pain in right shoulder [M25.511] 10/12/2015 Unspecified asthma, uncomplicated [J45.909] 06/15/2015 Gastro-esophageal reflux disease without esopha*12/13/2015 Anxiety [F41.9] 12/13/2015 Left ovarian cyst [N83.202] 12/13/2015 History of drug abuse [F19.11] 12/13/2015 History of migraine [Z86.69] 12/13/2015 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] 12/13/2015 Kidney stone [N20.0] 12/13/2015 History of seizure [Z87.898] 12/13/2015 History of renal cell cancer [Z85.528] 01/06/2016 Renal neoplasm [D49.519] 04/27/2016 Occipital neuralgia of right side [M54.81] 08/15/2016 Eustachian tube dysfunction, bilateral [H69.93] 10/11/2016 Lumbar radiculopathy [M54.16] 10/11/2016 Leg weakness, bilateral [R29.898] 10/11/2016 Chronic bilateral low back pain with bilateral *10/11/2016 Chronic right-sided thoracic back pain [M54.6, *10/11/2016 Paresthesia of bilateral legs [R20.2] 10/11/2016 Osteoarthritis of spine with radiculopathy, lum*12/20/2016 Obesity, Class III, BMI >= 40 (morbid obesity) *01/12/2017 Migraine with aura, not intractable, without st*01/12/2017 Int (more content not included)... Normal [facility] Progress Noteon 01-10-2024 Progress Note [facility] [address] [place] [address] [place] [address] Dept: [phone] Dept PHYSICAL THERAPY EVALUATION Patient Name: Petar Alcocer : 1975 Date of Service: 01/10/2024 Referring Provider: Cristobal Otoole NP Visit #: 1 Diagnosis: Anesthesia of skin Torticollis Pain in left shoulder General Information Mechanism of injury: Neck/shoulder pain and L UE numbness and tingling. Getting infusions the last few months for migraines and botox injections for the last 4 years to improve. 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 PSHX: Petar has no past surgical history on file. Have you experienced any anxiety or depression?: No Have you experienced thoughts of self-harm or suicidal thoughts?: No [employer] Reviewed: Yes Physician follow-up appointment?: No Subjective Chief Complaint: Neck and B shoulder pain that started about 1 year ago. No DASIA and reports that she has a hx of migraines. 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 Also after lifting/moving groceries. L neck/shoulder pain > R. Pain: Current: 6/10 Best: 0/10 Worst: 20/10 Symptoms Aggravated by: Reports increases with bending down where pain runs into shoulders. Ice. Symptoms Relieved by: rest, hot pack min Prior Level of Function: Independent Current Level of Function: Lifting is tough and she can only manage light objects 10-20# from the floor; from table can lift 50#. Cannot get on/off floor and has to crawl to object. Patient?s Stated Goal: Improve use of L UE and dec pain of neck/arm Outcome Measures Neck Disability Index: (no BRICENO); 26% disability SPADI: 79.2% disability Objective CERVICAL SPINE Observation: FHRS Date Recorded: 01/10/24 Cervical AROM Degrees Flexion (flex) 30 p! Extension (ext) 60 p! Right side bending (SBR) 40 Left side bending (SBL) 40 p! Right rotation (rotR) 60 Left rotation (rotL) 20 p! Deep Neck Flexor (DNF) Endurance Test= DNT seconds. Joint mobility: Hypomobile and painful to light mobilization Palpation: moderate turgor in cervical PVM and L RC (supraspinatus, infraspinatus) , rhomboids Flexibility: moderate limitation in neck mobility to the L Special Tests: Retraction: positive Spurling's: right positive and left positive ULTT - Median: left positive ULTT - Radial: left negative ULTT - Ulnar: left negative SHOULDER Date Recorded: 01/10/24 Upper Extremity ROM (degrees) Right Left AROM PROM AROM PROM Shoulder Flexion 164 120 p! 140 p!! Shoulder Abduction 155 100 p! 130 p!! Shoulder External Rotation (ER) T3 C2 80 Shoulder Internal Rotation (IR) R mid flank/rib L lower flank 70 p! Upper Extremity Strength Right Left Shoulder Flexion 4 3- Shoulder Abduction 4 3- Shoulder External Rotation (ER) 4 3+ Shoulder Internal Rotation (IR) 4 3 Elbow Flexion 4 3+ Elbow Extension 4 3+ Wrist Flexion 5 4 Wrist Extension 5 4 RHD Dynamometer Bank Vault Attendant Strength Testing (measured in lbs.) Date 01/10/2024 R L Full Bank Vault Attendant 45# 40# Tip Pinch 10# 6# Keyfob Bank Vault Attendant 14# 10# Tripod 10# 10# Scapular Strength Right Left Lower Trapezius DNT DNT Middle Trapezius Poor Poor Rhomboids Poor Poor Joint mobility: Hypomobile L Special Tests: Empty Can: left positive Lift Off: left positive Painful Arc: left positive Assessment Star is a 49 y.o. patient with chief complaint of neck and L shoulder limitations and pain, who presents with signs and symptoms consistent with cervical radiculopathy and RC involvement to unknown extent. Patients hx of back pain and migraines are factors that may limit or delay progress as expected. The patient would benefit from skilled physical therapy to address decreased strength, decreased range of motion, orthopedic restrictions, pain, soft tissue impairment, and impaired functional activities. Evaluation complexity is moderate secondary to: patient has 3 or more personal factors and/or comorbidities that will affect plan of care, therapy will be addressing 3 or more elements, and clinical presentation is evolving. Body Systems Affected: musculoskeletal and neuromuscular Rehab Potential: [employer] Preferences: demonstration, explanation, performance, and printed materials Barriers to Rehab: age and chronicity Goals General/Ortho (more content not included)... Normal [facility] Progress Noteon 01-07-2024 Progress Note [facility] [address] [facility] [address] Dept: [phone] Dept PHYSICAL THERAPY RE-EVALUATION/DISCHARGE Patient Name: Petar Alcocer : 1975 Date of Service: 01/07/2024 Referring Provider: Sabas Reyes DPM Visit #: 15 Diagnosis: Plantar fascial fibromatosis Mechanism of injury: 05/18/23 operation: 1. 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 Implantation of nerve of a branch of the common peroneal nerve into the peroneal muscle belly left lower leg 3. Neuroplasty dorsal left foot of the deep peroneal nerve Release of anterior compartment above the fibular head Neuroma removal off of fibular nerve LLE Extensor retinaculum release off of deep peroneal nerve Patient Preferences: Star Precautions/Red Flags: Yes medical precautions: bipolar disorder, Hx of heart attack, PTSD, CVA Adhesive allergy: no taping, wound on plantar surface of L foot, tinea pedis Subjective Chief Complaint: Reports when it hurts, feels tingling and painful like she was sitting on her feet and feels numbness and aching. Reports she feels she has to constantly move her feet and feels standing is most limited and can stand up to 1 hour with lots of movements. Seem better to so do socks/shoes. Reports knees are more limited on steps than the feet. Sleeping at night has been better overall but legs are restless and she feels she has to constantly move them. Pain: Current: 5/10 Best: 4/10 Worst: /10; reports 40 Outcome Measures Foot and Ankle Ability Measure (FAAM): 62/84 =73.8% ability ; 12/05/23: 47/84 = 56%; 01/07/24: 80.9% ability Objective ANKLE Leg length: L longer than R Gait: Antalgic L Lower Extremity Strength Right Left Hip Flexion 5 5 Hip Abduction 4 4- p! Hip Extension 4- p! 4- p! Hip External Rotation (ER) 5 5 Hip Internal Rotation (IR) 5 5 Knee Extension 5 5 Knee Flexion 5 5 Ankle Dorsiflexion (DF) 5 5 Ankle Plantarflexion (PF) 5 5 Inversion 5 5 Eversion 5 5 Single Leg Stance (SLS) Balance L SLS= 30 seconds R SLS= 18 seconds Assessment Star is a 48 y.o. patient with chief complaint of heel pain and lower leg pain, who presents with signs and symptoms consistent with plantar fasciitis. The patient had a surgery done on the L foot that seems to exacerbate and/or contribute to her plantar fasciitis. The patient would benefit from skilled physical therapy to address decreased strength, decreased range of motion, pain, soft tissue impairment, impaired gait, and impaired functional activities. Patient is making gains towards goals and has comprehensive HEP. Patient feel comfortable with program and ready to DC. She feels exercises are helpful and feels better when she does them. She does still have a leg length discrepancy and gave her options she can get on [facility] [employer] to help improve the L LE and even out her pelvis. Goals Active General/Ortho Patient will be independent with HEP. (Completed) Start: 10/31/23 Expected End: 02/03/24 Resolved: 01/07/24 Patient will report decreased pain at no more than 4/10 in L foot/ankle to be able to improve participation in functional activities. (Not Progressing) Start: 10/31/23 Expected End: 02/03/24 Patient will increase strength in gross hip to at least 4+/5 and specifically L hip flexion to 4/5 to be able to improve distal stability and improve safety in functional activities. (Completed) Start: 10/31/23 Expected End: 02/03/24 Resolved: 12/05/23 Gait: Patient will demonstrate ability to appropriately bear weight on both lower extremities in stance. (Completed) Start: 10/31/23 Expected End: 02/03/24 Resolved: 12/05/23 Balance: Patient will improve SLS to to >20 sec to improve safety with transfers. (Progressing) Start: 10/31/23 Expected End: 02/03/24 Functional Outcome Measure: Patient will improve FAAM to no less than 85% ability (Progressing) Start: 10/31/23 Expected End: 02/03/24 Plan Patient no longer requires skilled PT services and will be discharged at this time. Thank you for this referral. For any questions on this patient?s course of therapy, please call the clinic for clarification. Risks and benefits were discussed with the patient and/or family, and the patient and/or family participated with the plan of care and agrees. Treatment Re-assessment completed Home Exercise Program: Deferred Time Entry Total Treatment Time Start Time: 1155 Stop Time: 1225 Time Calculation (min): 30 min PT Therapeutic Procedures Time Entry Therapeutic Activity Time Entry: 30 Linda Randle, PT, DPT, NCS Normal [facility] Progress Noteon 01-02-2024 Progress Note [facility] AT [address] [address] Dept: [phone] Dept PHYSICAL THERAPY TREATMENT Patient Name: Petar Alcocer : 1975 Date of Service: 01/02/2024 Referring Provider: Sabas Reyes DPM Visit #: 14 Diagnosis: Plantar fascial fibromatosis Mechanism of injury: 05/18/23 operation: 1. 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 Implantation of nerve of a branch of the common peroneal nerve into the peroneal muscle belly left lower leg 3. Neuroplasty dorsal left foot of the deep peroneal nerve Release of anterior compartment above the fibular head Neuroma removal off of fibular nerve LLE Extensor retinaculum release off of deep peroneal nerve Patient Preferences: Star Precautions/Red Flags: Yes medical precautions: bipolar disorder, Hx of heart attack, PTSD, CVA Adhesive allergy: no taping, wound on plantar surface of L foot, tinea pedis Subjective 6/10. I got a cramp on my left foot and it was sore yesterday. Compliance with HEP: Yes Objective Objective measurements not taken today. Treatment Therapeutic Exercise Therapeutic Exercise Activity 5: Heel raises x3 Activity 5 Comment: 2# 10x ea Therapeutic Exercise Activity 6: Standing 3 way Hips Activity 6 Comment: 2# 2x10 ea Therapeutic Exercise Activity 7: retro gait with bar Activity 7 Comment: 2.5 plates, 10x Therapeutic Exercise Activity 11: balance- airex Activity 11 Comment: 1) WBOS 1', 2) NBOS-1' 3) mod tandem R/L 1' ea Therapeutic Exercise Activity 12: slant board stretch- gastroc and soleus Activity 12 Comment: 2x30 ea Therapeutic Exercise Activity 13: tandem ambulation Activity 13 Comment: 25' x1 Home Exercise Program: Deferred Assessment Skilled physical therapy interventions utilized to improve patient?s impairments and work towards established goals. Patient response to treatment: Patient completed session with no increase in pain level. Patient required verbal cues for proper form on exercises. Patient was challenged with tandem ambulation and suffered 3 LOB, but was able to recover and did not suffer a fall. Patient will benefit from continued physical therapy to progress foot ankle strength The rationale for today?s treatment was explained to the patient. Verbal cues were provided for correct form with all exercises. Advised patient to continue with Home Exercise Program (HEP). Goals General/Ortho Patient will be independent with HEP. (Progressing) Start: 10/31/23 Expected End: 02/03/24 Patient will report decreased pain at no more than 4/10 in L foot/ankle to be able to improve participation in functional activities. (Progressing) Start: 10/31/23 Expected End: 02/03/24 Balance: Patient will improve SLS to to >20 sec to improve safety with transfers. (Progressing) Start: 10/31/23 Expected End: 02/03/24 Functional Outcome Measure: Patient will improve FAAM to no less than 85% ability (Not Addressed) Start: 10/31/23 Expected End: 02/03/24 Plan Plan for next session: reassessment next visit by PT. Time Entry Total Treatment Time Start Time: 800 Stop Time: 830 Time Calculation (min): 30 min PT Therapeutic Procedures Time Entry Therapeutic Exercise Time Entry: 27 Cherelle Valerio PTA [facility] CNOVrodney 01-01-2024 CNOV Office Visit (GSTNOR ) BRITTNEY ALCOCER ([id number]) 1975 F NFR Date Time Provider Department 01/01/24 8:25 AM SNOW QUICK GSTTOM During your visit today, we recorded the following information about you: Blood pressure Weight Height 102/66 81.8 kg 1.473 m Snow Quick PA-C 01/01/2024 8:35 AM Signed CHIEF COMPLAINT: Patient presents with: Procedure Follow Up: Review EGD, c/o epigastric pain HPI Brittney Alcocer is a 48 year old female here today for f/u after EGD. Patient tells me that she has been dealing with nausea worse with eating. Will vomit intermittently. Taking Zofran but doesn't feel like it is helping. Denies GERD symptoms. Denies abdominal pain. Trying to keep to liquid diet. Notes a lot of constipation, moving bowels every few days in very small amounts. Getting some lower abdominal cramping before a BM. Denies rectal bleeding. EGD 08/28/2023: Impression: - Normal mucosa was found in the proximal esophagus. Biopsied. - Normal mucosa was found in the distal esophagus. Biopsied. - Z-line irregular, 38 cm from the incisors. - Gastroparesis, secondary to medication. Recommendation: - Patient has a contact number available for emergencies. The signs and symptoms of potential delayed complications were discussed with the patient. Return to normal activities tomorrow. Written discharge instructions were provided to the patient. - Resume previous diet. - Continue present medications. - Stop using MJ - Await pathology results. - Return to GI clinic as previously scheduled. FINAL DIAGNOSIS A. Esophagus, distal, biopsy: -Acute esophagitis with occasional intraepithelial eosinophils (up to 5 eosinophils per high-power field) -GMS, HSV and CMV stains to follow B. Esophagus, proximal, biopsy: -Acute esophagitis with occasional intraepithelial eosinophils (up to 10 eosinophils per high-power field) -GMS, HSV and CMV stains to follow Last OV with me 08/27/2023: Assessment/Plan (R10.13) Epigastric pain (primary encounter diagnosis) (R11.2) Nausea and vomiting, unspecified vomiting type (R13.10) Dysphagia, unspecified type 1. Epigastric pain -- Patient with epigastric pain, nausea and vomiting since August 16. Notes she has not been able to keep anything down. -- Continue on Lansoprazole 30 mg daily and Zofran. Offered Promethazine, declines this. -- Plan for EGD r/o PUD, H.pylori. -- BRAT diet as tolerated -- I do suspect patient is dehydrated due to orange urine, dizziness. Recommend ER evaluation, she declines. Increase fluids, electrolytes in diet. - EGD DIAGNOSTIC; Future 2. Nausea and vomiting, unspecified vomiting type -- Patient with epigastric pain, nausea and vomiting since August 16. Notes she has not been able to keep anything down. -- Continue on Lansoprazole 30 mg daily and Zofran. Offered Promethazine, declines this. -- Plan for EGD r/o PUD, H.pylori. -- BRAT diet as tolerated -- I do suspect patient is dehydrated due to orange urine, dizziness. Recommend ER evaluation, she declines. Increase fluids, electrolytes in diet. - EGD DIAGNOSTIC; Future 3. Dysphagia, unspecified type -- Notes dysphagia since symptoms started, feels very dry. -- Continue on Lansoprazole 30 mg daily and Zofran. Offered Promethazine, declines this. -- Plan for EGD r/o PUD, H.pylori. - EGD DIAGNOSTIC; Future Follow up in office PRN. Current Outpatient Medications Medication Sig diclofenac, EC, (VOLTAREN) 75 mg EC tablet Take 1 tablet by mouth every 12 hours. clindamycin (CLEOCIN) 150 mg capsule take 1 capsule by mouth three times daily until gone albuterol HFA (PROVENTIL HFA, VENTOLIN HFA) 90 mcg/actuation inhaler Inhale 2 Puffs as instructed every 4 hours as needed for wheezing/shortness of breath. mirabegron (MYRBETRIQ) 50 mg Tb24 Take 1 tablet by mouth once daily. fremanezumab-vfrm subcutaneus auto-injector 225 mg/1.5 mL (AJOVY) Inject 1.5 mL subcutaneously once every month. Do not shake. simvastatin (ZOCOR) 20 mg tablet Take 2 tablets by mouth daily at bedtime. gabapentin (NEURONTIN) 800 mg tablet Take 1 tablet by mouth four times daily for 180 days. rimegepant (NURTEC ODT) 75 mg disintegrating tablet Take 1 tablet at onset of headache/migraine. Only take 1 tablet as single dose in 24 hour period. ondansetron orally disintegrating (ZOFRAN ODT) 4 mg disintegrating tablet dissolve 1 tablet ON TONGUE every 8 hours if needed for nausea OR vomiting loratadine (CLARITIN) 10 mg tablet take 1 tablet by mouth once daily MEDICATION, NON-DATABASE Marijuana for migraines lansoprazole (PREVACID) 30 mg capsule Take 1 capsule by mouth two times a day. Current Facility-Administered Medications Medication Dose Route Frequency onabotulinum toxin type A 200 Units injection (BOTOX) 200 Units OTHER q 3 MONTHS ALLERGIES Allergen Reactions Ci (more content not included)... [facility] (LIZET[facility] BRITTNEY ALCOCER ([id number]) 1975 F NFR Date Time Provider Department 12/31/23 CRISTOBAL OTOOLE During your visit today, we recorded the following information about you: Ceasar Duncan MA 12/31/2023 7:22 AM Signed ----- Message from Cristobal Otoole APRN.GASOLINE LOCOMOTIVE CRANE OPERATOR sent at 12/30/2023 10:57 PM EST ----- Please notify patient results are normal. Thank you. Cristobal Otoole APRN.GASOLINE LOCOMOTIVE CRANE OPERATOR Amy Blair MA 12/31/2023 9:38 AM Signed Patient is informed Amy Blair MA Allergies As of Date: 12/31/2023 Noted Allergy Reaction CITALOPRAM HYDROBROMIDE 10/27/2004 10 - Anaphylaxis Comments: TACHYCARDIA MORPHINE 01/26/2005 8 - GI Upset AMOXICILLIN 10/24/2004 8 - GI Upset 14 - Other: See Comments Comments: Makes me worse ASA (SALICYLATES) 10/27/2004 4 - Hives CHOCOLATE 10/27/2004 EFFEXOR (VENLAFAXINE HCL) 10/27/2004 11 - Vomiting NAPROXEN 02/16/2006 5 - Intolerance Comments: Depression PENICILLIN G 09/08/2021 8 - GI Upset TAPE (ADHESIVE TAPE-SILICONES) 01/27/2021 14 - Other: See Comments Comments: Rash TOMATO 12/21/2020 5 - Intolerance Comments: If cooked cant tolerate them TRAMADOL 10/24/2004 8 - GI Upset TRAZODONE 08/28/2017 1 - Mental Status Change Comments: Causes hallucinations VENLAFAXINE 12/13/2015 16 - Unknown Date Reviewed: 12/28/2023 Reviewed by: Ceasar Duncan MA - Fully Assessed Reason for Visit: Results [95] Prescriptions as of 12/31/2023 - diclofenac, EC, (VOLTAREN) 75 mg EC tablet Take 1 tablet by mouth every 12 hours. - clindamycin (CLEOCIN) 150 mg capsule take 1 capsule by mouth three times daily until gone - albuterol HFA (PROVENTIL HFA, VENTOLIN HFA) 90 mcg/actuation inhaler Inhale 2 Puffs as instructed every 4 hours as needed for wheezing/shortness of breath. - mirabegron (MYRBETRIQ) 50 mg Tb24 Take 1 tablet by mouth once daily. - fremanezumab-vfrm subcutaneus auto-injector 225 mg/1.5 mL (AJOVY) Inject 1.5 mL subcutaneously once every month. Do not shake. - lansoprazole (PREVACID) 30 mg capsule Take 1 capsule by mouth two times a day. - simvastatin (ZOCOR) 20 mg tablet Take 2 tablets by mouth daily at bedtime. - gabapentin (NEURONTIN) 800 mg tablet Take 1 tablet by mouth four times daily for 180 days. - rimegepant (NURTEC ODT) 75 mg disintegrating tablet Take 1 tablet at onset of headache/migraine. Only take 1 tablet as single dose in 24 hour period. - ondansetron orally disintegrating (ZOFRAN ODT) 4 mg disintegrating tablet dissolve 1 tablet ON TONGUE every 8 hours if needed for nausea OR vomiting - loratadine (CLARITIN) 10 mg tablet take 1 tablet by mouth once daily - MEDICATION, NON-DATABASE Marijuana for migraines Facility-Administered Medications as of 12/31/2023 - onabotulinum toxin type A 200 Units injection (BOTOX) Problem List As Of Date 12/31/2023 Noted Resolved Supervision of other normal [Z34.80] 01/26/2005 01/06/2016 CELLULITIS FINGER,PARONYCHIA/ONYCH IA [L03.019] 12/12/2005 01/06/2016 Viral warts, unspecified [B07.9] 12/12/2005 01/06/2016 VISUAL LOSS, ONE EYE NOS [H54.60] 09/17/2006 Pain in joint, lower leg [M25.569] 09/08/2011 01/06/2016 Pain in joint, pelvic region and thigh [M25.559]09/08/2011 01/06/2016 Carpal tunnel syndrome, left [G56.02] 05/09/2012 Right knee pain [M25.561] 06/30/2014 Diverticulosis of intestine without bleeding [K*11/10/2015 Amenorrhea, unspecified [N91.2] 07/20/2015 Leiomyoma of uterus, unspecified [D25.9] 10/07/2015 Major depressive disorder, single episode, unsp*06/15/2015 Pain in right shoulder [M25.511] 10/12/2015 Unspecified asthma, uncomplicated [J45.909] 06/15/2015 Gastro-esophageal reflux disease without esopha*12/13/2015 Anxiety [F41.9] 12/13/2015 Left ovarian cyst [N83.202] 12/13/2015 History of drug abuse [F19.11] 12/13/2015 History of migraine [Z86.69] 12/13/2015 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] 12/13/2015 Kidney stone [N20.0] 12/13/2015 History of seizure [Z87.898] 12/13/2015 History of renal cell cancer [Z85.528] 01/06/2016 Renal neoplasm [D49.519] 04/27/2016 Occipital neuralgia of right side [M54.81] 08/15/2016 Eustachian tube dysfunction, bilateral [H69.93] 10/11/2016 Lumbar radiculopathy [M54.16] 10/11/2016 Leg weakness, bilateral [R29.898] 10/11/2016 Chronic bilateral low back pain with bilateral *10/11/2016 Chronic right-sided thoracic back pain [M54.6, *10/11/2016 Paresthesia of bilateral legs [R20.2] 10/11/2016 Osteoarthritis of spine with radiculopathy, lum*12/20/2016 Obesity, Class III, BMI >= 40 (morbid obesity) *01/12/2017 Migraine with aura, not intractable, without st*01/12/2017 Intervertebral disc disorder with radiculopathy* 8 Jaw pain [R68.84] 03/23/2017 Low back pain with left-sided sciatica [M54.42] 03/23/2017 Low back pain with right-sided sciatica [M54.41]03/23/2017 Other intervertebral d (more content not included)... Normal [facility] Telephone (LIZET) BRITTNEY ALCOCER ([id number]) 1975 F NFR Date Time Provider Department 12/31/23 CRISTOBAL OTOOLE During your visit today, we recorded the following information about you: Ceasar Duncan MA 12/31/2023 7:23 AM Signed ----- Message from Cristobal Otoole APRN.GASOLINE LOCOMOTIVE CRANE OPERATOR sent at 12/30/2023 10:57 PM EST ----- Please notify patient results are normal. Thank you. Cristobal Otoole APRN.GASOLINE LOCOMOTIVE CRANE OPERATOR Amy Blair MA 12/31/2023 9:38 AM Signed Patient is informed Amy Blair MA Allergies As of Date: 12/31/2023 Noted Allergy Reaction CITALOPRAM HYDROBROMIDE 10/27/2004 10 - Anaphylaxis Comments: TACHYCARDIA MORPHINE 01/26/2005 8 - GI Upset AMOXICILLIN 10/24/2004 8 - GI Upset 14 - Other: See Comments Comments: Makes me worse ASA (SALICYLATES) 10/27/2004 4 - Hives CHOCOLATE 10/27/2004 EFFEXOR (VENLAFAXINE HCL) 10/27/2004 11 - Vomiting NAPROXEN 02/16/2006 5 - Intolerance Comments: Depression PENICILLIN G 09/08/2021 8 - GI Upset TAPE (ADHESIVE TAPE-SILICONES) 01/27/2021 14 - Other: See Comments Comments: Rash TOMATO 12/21/2020 5 - Intolerance Comments: If cooked cant tolerate them TRAMADOL 10/24/2004 8 - GI Upset TRAZODONE 08/28/2017 1 - Mental Status Change Comments: Causes hallucinations VENLAFAXINE 12/13/2015 16 - Unknown Date Reviewed: 12/28/2023 Reviewed by: Ceasar Duncan MA - Fully Assessed Reason for Visit: Results [95] Prescriptions as of 12/31/2023 - diclofenac, EC, (VOLTAREN) 75 mg EC tablet Take 1 tablet by mouth every 12 hours. - clindamycin (CLEOCIN) 150 mg capsule take 1 capsule by mouth three times daily until gone - albuterol HFA (PROVENTIL HFA, VENTOLIN HFA) 90 mcg/actuation inhaler Inhale 2 Puffs as instructed every 4 hours as needed for wheezing/shortness of breath. - mirabegron (MYRBETRIQ) 50 mg Tb24 Take 1 tablet by mouth once daily. - fremanezumab-vfrm subcutaneus auto-injector 225 mg/1.5 mL (AJOVY) Inject 1.5 mL subcutaneously once every month. Do not shake. - lansoprazole (PREVACID) 30 mg capsule Take 1 capsule by mouth two times a day. - simvastatin (ZOCOR) 20 mg tablet Take 2 tablets by mouth daily at bedtime. - gabapentin (NEURONTIN) 800 mg tablet Take 1 tablet by mouth four times daily for 180 days. - rimegepant (NURTEC ODT) 75 mg disintegrating tablet Take 1 tablet at onset of headache/migraine. Only take 1 tablet as single dose in 24 hour period. - ondansetron orally disintegrating (ZOFRAN ODT) 4 mg disintegrating tablet dissolve 1 tablet ON TONGUE every 8 hours if needed for nausea OR vomiting - loratadine (CLARITIN) 10 mg tablet take 1 tablet by mouth once daily - MEDICATION, NON-DATABASE Marijuana for migraines Facility-Administered Medications as of 12/31/2023 - onabotulinum toxin type A 200 Units injection (BOTOX) Problem List As Of Date 12/31/2023 Noted Resolved Supervision of other normal [Z34.80] 01/26/2005 01/06/2016 CELLULITIS FINGER,PARONYCHIA/ONYCH IA [L03.019] 12/12/2005 01/06/2016 Viral warts, unspecified [B07.9] 12/12/2005 01/06/2016 VISUAL LOSS, ONE EYE NOS [H54.60] 09/17/2006 Pain in joint, lower leg [M25.569] 09/08/2011 01/06/2016 Pain in joint, pelvic region and thigh [M25.559]09/08/2011 01/06/2016 Carpal tunnel syndrome, left [G56.02] 05/09/2012 Right knee pain [M25.561] 06/30/2014 Diverticulosis of intestine without bleeding [K*11/10/2015 Amenorrhea, unspecified [N91.2] 07/20/2015 Leiomyoma of uterus, unspecified [D25.9] 10/07/2015 Major depressive disorder, single episode, unsp*06/15/2015 Pain in right shoulder [M25.511] 10/12/2015 Unspecified asthma, uncomplicated [J45.909] 06/15/2015 Gastro-esophageal reflux disease without esopha*12/13/2015 Anxiety [F41.9] 12/13/2015 Left ovarian cyst [N83.202] 12/13/2015 History of drug abuse [F19.11] 12/13/2015 History of migraine [Z86.69] 12/13/2015 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] 12/13/2015 Kidney stone [N20.0] 12/13/2015 History of seizure [Z87.898] 12/13/2015 History of renal cell cancer [Z85.528] 01/06/2016 Renal neoplasm [D49.519] 04/27/2016 Occipital neuralgia of right side [M54.81] 08/15/2016 Eustachian tube dysfunction, bilateral [H69.93] 10/11/2016 Lumbar radiculopathy [M54.16] 10/11/2016 Leg weakness, bilateral [R29.898] 10/11/2016 Chronic bilateral low back pain with bilateral *10/11/2016 Chronic right-sided thoracic back pain [M54.6, *10/11/2016 Paresthesia of bilateral legs [R20.2] 10/11/2016 Osteoarthritis of spine with radiculopathy, lum*12/20/2016 Obesity, Class III, BMI >= 40 (morbid obesity) *01/12/2017 Migraine with aura, not intractable, without st*01/12/2017 Intervertebral disc disorder with radiculopathy* 8 Jaw pain [R68.84] 03/23/2017 Low back pain with left-sided sciatica [M54.42] 03/23/2017 Low back pain with right-sided sciatica [M54.41]03/23/2017 Other intervertebral d (more content not included)... Normal [facility] CNPN Telephone (LIZET) BRITTNEY ALCOCER ([id number]) 1975 F NFR Date Time Provider Department 12/31/23 CRISTOBAL OTOOLE During your visit today, we recorded the following information about you: Mari Palma 12/31/2023 3:07 PM Signed Patient called requesting EMG order be faxed to [facility], Order faxed. Allergies As of Date: 12/31/2023 Noted Allergy Reaction CITALOPRAM HYDROBROMIDE 10/27/2004 10 - Anaphylaxis Comments: TACHYCARDIA MORPHINE 01/26/2005 8 - GI Upset AMOXICILLIN 10/24/2004 8 - GI Upset 14 - Other: See Comments Comments: Makes me worse ASA (SALICYLATES) 10/27/2004 4 - Hives CHOCOLATE 10/27/2004 EFFEXOR (VENLAFAXINE HCL) 10/27/2004 11 - Vomiting NAPROXEN 02/16/2006 5 - Intolerance Comments: Depression PENICILLIN G 09/08/2021 8 - GI Upset TAPE (ADHESIVE TAPE-SILICONES) 01/27/2021 14 - Other: See Comments Comments: Rash TOMATO 12/21/2020 5 - Intolerance Comments: If cooked cant tolerate them TRAMADOL 10/24/2004 8 - GI Upset TRAZODONE 08/28/2017 1 - Mental Status Change Comments: Causes hallucinations VENLAFAXINE 12/13/2015 16 - Unknown Date Reviewed: 12/28/2023 Reviewed by: Ceasar Duncan MA - Fully Assessed Reason for Visit: request to fax order [Other] Cmt: Pt wants EMG order faxed to [facility] Prescriptions as of 12/31/2023 - diclofenac, EC, (VOLTAREN) 75 mg EC tablet Take 1 tablet by mouth every 12 hours. - clindamycin (CLEOCIN) 150 mg capsule take 1 capsule by mouth three times daily until gone - albuterol HFA (PROVENTIL HFA, VENTOLIN HFA) 90 mcg/actuation inhaler Inhale 2 Puffs as instructed every 4 hours as needed for wheezing/shortness of breath. - mirabegron (MYRBETRIQ) 50 mg Tb24 Take 1 tablet by mouth once daily. - fremanezumab-vfrm subcutaneus auto-injector 225 mg/1.5 mL (AJOVY) Inject 1.5 mL subcutaneously once every month. Do not shake. - lansoprazole (PREVACID) 30 mg capsule Take 1 capsule by mouth two times a day. - simvastatin (ZOCOR) 20 mg tablet Take 2 tablets by mouth daily at bedtime. - gabapentin (NEURONTIN) 800 mg tablet Take 1 tablet by mouth four times daily for 180 days. - rimegepant (NURTEC ODT) 75 mg disintegrating tablet Take 1 tablet at onset of headache/migraine. Only take 1 tablet as single dose in 24 hour period. - ondansetron orally disintegrating (ZOFRAN ODT) 4 mg disintegrating tablet dissolve 1 tablet ON TONGUE every 8 hours if needed for nausea OR vomiting - loratadine (CLARITIN) 10 mg tablet take 1 tablet by mouth once daily - MEDICATION, NON-DATABASE Marijuana for migraines Facility-Administered Medications as of 12/31/2023 - onabotulinum toxin type A 200 Units injection (BOTOX) Problem List As Of Date 12/31/2023 Noted Resolved Supervision of other normal [Z34.80] 01/26/2005 01/06/2016 CELLULITIS FINGER,PARONYCHIA/ONYCH IA [L03.019] 12/12/2005 01/06/2016 Viral warts, unspecified [B07.9] 12/12/2005 01/06/2016 VISUAL LOSS, ONE EYE NOS [H54.60] 09/17/2006 Pain in joint, lower leg [M25.569] 09/08/2011 01/06/2016 Pain in joint, pelvic region and thigh [M25.559]09/08/2011 01/06/2016 Carpal tunnel syndrome, left [G56.02] 05/09/2012 Right knee pain [M25.561] 06/30/2014 Diverticulosis of intestine without bleeding [K*11/10/2015 Amenorrhea, unspecified [N91.2] 07/20/2015 Leiomyoma of uterus, unspecified [D25.9] 10/07/2015 Major depressive disorder, single episode, unsp*06/15/2015 Pain in right shoulder [M25.511] 10/12/2015 Unspecified asthma, uncomplicated [J45.909] 06/15/2015 Gastro-esophageal reflux disease without esopha*12/13/2015 Anxiety [F41.9] 12/13/2015 Left ovarian cyst [N83.202] 12/13/2015 History of drug abuse [F19.11] 12/13/2015 History of migraine [Z86.69] 12/13/2015 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] 12/13/2015 Kidney stone [N20.0] 12/13/2015 History of seizure [Z87.898] 12/13/2015 History of renal cell cancer [Z85.528] 01/06/2016 Renal neoplasm [D49.519] 04/27/2016 Occipital neuralgia of right side [M54.81] 08/15/2016 Eustachian tube dysfunction, bilateral [H69.93] 10/11/2016 Lumbar radiculopathy [M54.16] 10/11/2016 Leg weakness, bilateral [R29.898] 10/11/2016 Chronic bilateral low back pain with bilateral *10/11/2016 Chronic right-sided thoracic back pain [M54.6, *10/11/2016 Paresthesia of bilateral legs [R20.2] 10/11/2016 Osteoarthritis of spine with radiculopathy, lum*12/20/2016 Obesity, Class III, BMI >= 40 (morbid obesity) *01/12/2017 Migraine with aura, not intractable, without st*01/12/2017 Intervertebral disc disorder with radiculopathy* 8 Jaw pain [R68.84] 03/23/2017 Low back pain with left-sided sciatica [M54.42] 03/23/2017 Low back pain with right-sided sciatica [M54.41]03/23/2017 Other intervertebral disc degeneration, thoraci*03/23/2017 Pleurodynia [R07.81] 03/23/2017 Syncope and collapse [R55] 0 (more content not included)... Normal [facility] Progress Noteon 12-31-2023 Progress Note [facility] [address] [place] [address] [address] [facility] [address] Dept: [phone] Dept PHYSICAL THERAPY TREATMENT Patient Name: Petar Alcocer : 1975 Date of Service: 12/31/2023 Referring Provider: Sabas Reyes DPM Visit #: [id number] Diagnosis: Plantar fascial fibromatosis Mechanism of injury: 05/18/23 operation: 1. 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 Implantation of nerve of a branch of the common peroneal nerve into the peroneal muscle belly left lower leg 3. Neuroplasty dorsal left foot of the deep peroneal nerve Release of anterior compartment above the fibular head Neuroma removal off of fibular nerve LLE Extensor retinaculum release off of deep peroneal nerve Patient Preferences: Star Precautions/Red Flags: Yes medical precautions: bipolar disorder, Hx of heart attack, PTSD, CVA Adhesive allergy: no taping, wound on plantar surface of L foot, tinea pedis Subjective Patient reporting pain of 100 over the weekend, doc did prescribe meds, but she can only take them at night due to drowsiness. Has to keep moving or she experiences burning sensation. Patient also has a script for back pain. Current pain in feet is a 20. Compliance with HEP: Yes Objective Objective measurements not taken today. Treatment Therapeutic Exercise Therapeutic Exercise Activity 1: Soleus stretch Activity 1 Comment: x30 ea Therapeutic Exercise Activity 2: Slant Board Stretch Activity 2 Comment: 2x30 Therapeutic Exercise Activity 3: NuStep Activity 3 Comment: x5 min, level 3, seat 6 Therapeutic Exercise Activity 4: Bosu Lunge Activity 4 Comment: x10 forward/lateral - 2lb cuff weights donned Therapeutic Exercise Activity 5: Heel raises Activity 5 Comment: x10 with 2lb cuff weights Therapeutic Exercise Activity 6: Standing 3 way Hips Activity 6 Comment: x10 ea; 2lb cuff weights donned Home Exercise Program: Deferred Assessment Skilled physical therapy interventions utilized to improve patient?s impairments and work towards established goals. Patient response to treatment: Patient doing well with exercises this date. Patient reporting she enjoyed cuff weights on ankles as she was able to feel her feet better. Patient will benefit from continued physical therapy to address pain, ROM, and strength. The rationale for today?s treatment was explained to the patient. Verbal cues were provided for correct form with all exercises. Advised patient to continue with Home Exercise Program (HEP). Goals General/Ortho Patient will be independent with HEP. (Progressing) Start: 10/31/23 Expected End: 02/03/24 Patient will report decreased pain at no more than 4/10 in L foot/ankle to be able to improve participation in functional activities. (Progressing) Start: 10/31/23 Expected End: 02/03/24 Balance: Patient will improve SLS to to >20 sec to improve safety with transfers. (Progressing) Start: 10/31/23 Expected End: 02/03/24 Functional Outcome Measure: Patient will improve FAAM to no less than 85% ability (Not Addressed) Start: 10/31/23 Expected End: 02/03/24 Plan Plan for next session: Continue to progress functional strength as tolerated with cuff weights on ankles. Time Entry Total Treatment Time Start Time: 1132 Stop Time: 1157 Time Calculation (min): 25 min PT Therapeutic Procedures Time Entry Therapeutic Exercise Time Entry: Serg Sinha PTA [facility] CBC panel Auto (Bld)on 12-27 Erythrocyte distribution width (RBC) [Ratio] 12.9 % Normal 11.5-15.0 [facility] Comment on above: Order Comment: Speci men Type: BLOOD SPECIMENOrdering Facility: [facility] Address: [address] [place] [address] Performed By: #### 5 8410-2 ####[facility] [employer] LABCLIA [id number] [place] [address] [place] Hematocrit (Bld) [Volume fraction] 46.1 % High 36.0-46.0 [facility] Comment on above: Order Comment: Speci men Type: BLOOD SPECIMENOrdering Facility: [facility] Address: [address] [place] [address] Performed By: #### 5 8410-2 ####[facility] [employer] LABCLIA [id number] [place] [address] [place] Hemoglobin (Bld) [Mass/Vol] 15.1 g/dL Normal 11.5-15.5 [facility] Comment on above: Order Comment: Speci men Type: BLOOD SPECIMENOrdering Facility: [facility] Address: [address] [place] [address] Performed By: #### 5 8410-2 ####[facility] [employer] LABCLIA [id number] [place] [address] [place] MCH (RBC) [Entitic mass] 32.0 pg Normal 26.0-34.0 [facility] Comment on above: Order Comment: Speci men Type: BLOOD SPECIMENOrdering Facility: [facility] Address: [address] [place] [address] Performed By: #### 5 8410-2 ####[facility] [place] LABCLIA [id number] [facility] [address] [place] [facility] MCHC (RBC) [Mass/Vol] 32.8 g/dL Normal 30.5-36.0 [facility] Comment on above: Order Comment: Speci men Type: BLOOD SPECIMENOrdering Facility: [facility] Address: [address] [place] [address] Performed By: #### 5 8410-2 ####[facility] LABCLIA [id number] [facility] [address] [facility] MCV (RBC) [Entitic vol] 97.7 fL Normal 80.0-100.[address] [facility] Comment on above: Order Comment: Speci men Type: BLOOD SPECIMENOrdering Facility: [facility] Address: [address] [place] [address] Performed By: #### 5 8410-2 ####[facility] LABCLIA [id number] [facility] [address] [facility] Platelet mean volume (Bld) [Entitic vol] 10.2 fL Normal 9.0-12.7 [facility] Comment on above: Order Comment: Speci men Type: BLOOD SPECIMENOrdering Facility: [facility] Address: [address] [place] [address] Performed By: #### 5 8410-2 ####[facility] LABCLIA [id number] [place] [address] [facility] Platelets (Bld) [#/Vol] 243 10*3/uL Normal 150-400 [facility] Comment on above: Order Comment: Speci men Type: BLOOD SPECIMENOrdering Facility: [facility] Address: [address] [place] [address] Performed By: #### 5 8410-2 ####[facility] [place] LABCLIA [id number] [facility] [place] [address] [facility] RBC (Bld) [#/Vol] 4.72 10*6/uL Normal 3.90-5.20 [facility] Comment on above: Order Comment: Speci men Type: BLOOD SPECIMENOrdering Facility: [facility] Address: [address] [place] [address] Performed By: #### 5 8410-2 ####[facility] LABCLIA [id number] [place] [address] [facility] WBC (Bld) [#/Vol] 6.99 10*3/uL Normal 3.70-11.00 [facility] Comment on above: Order Comment: Speci men Type: BLOOD SPECIMENOrdering Facility: 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 I reviewed past medical, surgical, social, and family histories today and updated chart. Allergies, chronic medications, and supplements were also reviewed. HPI Has NCS scheduled for legs - burning pain in her legs Her foot doctor has her on medication for this PT twice a week Getting shaking in the left hand, started about 1 week ago Tingling and numb No pain intermittent Started in morning then stops then at work Notices more when she's doing the dishes Feels better when she moves it around like circulation issue Almost feels like carpal tunnel is coming back Whole arm is numb No pain in shoulder or neck But was told by botox provider that her neck was really hard Has not been sleeping because of her legs - sleeps maybe 3 hours a night She would like to do some PT for her lower back, its going out on her PAST MEDICAL HISTORY Diagnosis Date Adjustment disorder with depressed mood Allergic rhinitis Arthritis of right knee Asthma Bilateral ovarian cysts Cholecystitis, unspecified 1994 Gallbladder removed Chronic pain syndrome Fibroids Gastric ulcer, unspecified as acute or chronic, without mention of hemorrhage or perforation, with obstruction occasional bleeding GERD (gastroesophageal reflux disease) [facility]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 SYNDROME Unspecified asthma(493.90) occasional inhaler Urinary calculus, unspecified 12/2005 Renal stones: left kidney per CT PAST SURGICAL HISTORY Procedure Laterality Date BLADDER SURGERY HX 08/02/2020 Cystoscopy and Sling CARPAL TUNNEL Left 10/12/2016 Dr. Conner DELIVERY ONLY 1994 , low cervical DELIVERY ONLY 07/26/2005 , low cervical CHOLECYSTECTOMY 1995 COLONOSCOPY 09/03/2017 D. Evangelista. NORMAL. Repeat in 10 years. DILATION AND CURETTAGE DXAND/THER NONOBSTETRIC 2015 Dilation AND curettage X 2 EGD 02/25/2010 Abnormal LES, esophagitis, antral ulcers, retained fluid in stomach, pos H Pylori EGD 04/14/2008 antral gastritis, neg h Pylori EGD W/O BRSH SPEC VARICIES INJ 2021 EGD W/O BRSH SPEC VARICIES INJ 06/29/2021 EGD W/O BRSH SPEC VARICIES INJ 08/28/2023 acute inflammation of the esophagus consistent with GERD LAPAROSCOPY SURG CHOLECYSTECTOMY PAST SURGICAL HISTORY OF 2006 REMOVAL OF FATTY TUMOR FROM R ARM PAST SURGICAL HISTORY OF 2007 Carpal Tunnel Surgery on right wrist PAST SURGICAL HISTORY OF 09/27/2012 left wrist carpal tunnel release PAST SURGICAL HISTORY OF Right 2017 partial nephrectomy VAGINAL HYSTERECTOMY 12/24/2019 WART REMOVAL WHI Right 09/03/2018 Removal of wart on third finger right hand - Dr. Herrera ALLERGIES Citalopram Hydrobromide, Morphine, Amoxicillin, Asa [Salicylates], Chocolate, Effexor [Venlafaxine Hcl], Naproxen, Penicillin G, Tape [Adhesive Tape-Silicones], Tomato, Tramadol, Trazodone, and Venlafaxine MEDICATIONS diclofenac, EC, (VOLTAREN) 75 mg EC tabletTake 1 tablet by mouth every 12 hours.Disp: Rfl: clindamycin (CLEOCIN) 150 mg capsuletake 1 capsule by mouth three times daily until goneDisp: Rfl: albuterol HFA (PROVENTIL HFA, VENTOLIN HFA) 90 mcg/actuation inhalerEVERY 4 HOURS NEEDED as needed for Sob AND/Or WheezingDisp: Rfl: mirabegron (MYRBETRIQ) 50 mg Ab27Cuyl 1 tablet by mouth once daily.Disp: 30 tabletRfl: 5 fremanezumab-vfrm subcutaneus auto-injector 225 mg/1.5 mL (AJOVY)Inject 1.5 mL subcutaneously once every month. Do not shake.Disp: 1.5 mLRfl: 11 lansoprazole (PREVACID) 30 mg capsuleTake 1 capsule by mouth two times a day.Disp: 60 capsuleRfl: 0 simvastatin (ZOCOR) 20 mg tabletTake 2 tablets by mouth daily at bedtime.Disp: 180 tabletRfl: 3 gabapentin (NEURONTIN) 800 mg tabletTake 1 tablet by mouth four times daily for 180 days.Disp: 120 tabletRfl: 5 rimegepant (NURTEC ODT) 75 mg disintegrating tabletTake 1 tablet at onset of headache/migraine. Only take 1 tablet as single dose in 24 hour period.Di (more content not included)... Normal [facility] Comprehensive metabolic 2000 panelon 12-28-2023 Albumin [Mass/Vol] 4.5 g/dL Normal 3.9-4.9 [facility] Comment on above: Order Comment: Speci men Type: BLOOD SPECIMENOrdering Facility: [facility] Address: [address] [place] [address] Performed By: #### 3 016-3, 89586-4 ####[facility] [place] LABCLIA [id number] [facility] [address] [place] [facility] ALP [Catalytic activity/Vol] 116 U/L Normal 34-123 [facility] Comment on above: Order Comment: Speci men Type: BLOOD SPECIMENOrdering Facility: [facility] Address: [address] [place] [address] Performed By: #### 3 016-3, 94420-8 ####[facility] [place] LABCLIA [id number] [facility] [address] [place] [facility] ALT With P-5'-P [Catalytic activity/Vol] 16 U/L Normal 7-38 [facility] Comment on above: Order Comment: Speci men Type: BLOOD SPECIMENOrdering Facility: [facility] Address: [address] [place] [address] Performed By: #### 3 016-3, 49948-4 ####[facility] [place] LABCLIA [id number] [place] [address] [place] [facility] Anion gap [Moles/Vol] 9 mmol/L Normal 8-15 [facility] Comment on above: Order Comment: Speci men Type: BLOOD SPECIMENOrdering Facility: [facility] Address: [address] [place], [place] [address] Performed By: #### 3 016-3, 72533-7 ####[facility] [place] LABCLIA [id number] [facility] [address] [place] AST With P-5'-P [Catalytic activity/Vol] 17 U/L Normal 13-35 [facility] Comment on above: Order Comment: Speci men Type: BLOOD SPECIMENOrdering Facility: [facility] Address: [address] [place] [address] Performed By: #### 3 016-3, 37464-4 ####[facility] [place] LABCLIA [id number] [place] [address] [place] Bilirubin [Mass/Vol] 0.4 mg/dL Normal 0.2-1.3 [facility] Comment on above: Order Comment: Speci men Type: BLOOD SPECIMENOrdering Facility: [facility] Address: [address] [place] [address] Performed By: #### 3 016-3, 44905-2 ####[facility] [place] LABCLIA [id number] [place] [address] [place] Calcium [Mass/Vol] 9.7 mg/dL Normal 8.5-10.2 [facility] Comment on above: Order Comment: Speci men Type: BLOOD SPECIMENOrdering Facility: [facility] Address: [address] [place] [address] Performed By: #### 3 016-3, 99041-7 ####[facility] [place] LABCLIA [id number] [place] [facility] [place] [address] [place] Chloride [Moles/Vol] 106 mmol/L Normal 98-107 [facility] Comment on above: Order Comment: Speci men Type: BLOOD SPECIMENOrdering Facility: [facility] Address: [address] [place] [address] Performed By: #### 3 016-3, 48607-3 ####[facility] [place] LABCLIA [id number] [facility] [place] [address] [place] CO2 [Moles/Vol] 27 mmol/L Normal 22-30 [facility] Comment on above: Order Comment: Speci men Type: BLOOD SPECIMENOrdering Facility: [facility] Address: [address] [place] [address] Performed By: #### 3 016-3, 45539-4 ####[facility] [place] LABCLIA [id number] [place] [address] [place] Creatinine [Mass/Vol] 0.82 mg/dL Normal 0.58-0.96 [facility] Comment on above: Order Comment: Speci men Type: BLOOD SPECIMENOrdering Facility: [facility] Address: [address] [place] [address] Performed By: #### 3 016-3, 30483-0 ####[facility] LABIA [id number] [place] [address] [place] Creatinine and Glomerular filtration rate.predicted panel (S/P/Bld) 88 mL/min/1.73m??? Normal >=60 [facility] Comment on above: Order Comment: Julisa sarita Type: BLOOD SPECIMENOrdering Facility: [facility] Address: [address] [place] [address] Result Comment: Katelyn mated Glomerular Filtration Rate (eGFR) is calculated using the 2020 CKD-EPI creatinine equation. This equation utilizes serum creatinine, sex, and age as parameters. The creatinine assay has traceable calibration to isotope dilution-mass spectrometry. Refer to KDIGO guidelines for clinical interpretation. In patients with unstable renal function, e.g. those with acute kidney injury, the eGFR may not accurately reflect actual GFR. Performed By: #### 3 016-3, 44319-5 ####[facility] LABIA [id number] [place] [address] [place] Glucose [Mass/Vol] 91 mg/dL Normal 74-99 [facility] Comment on above: Order Comment: Ginadebra stein Type: BLOOD SPECIMENOrdering Facility: [facility] Address: [address] [place] [address] Result Comment: The [place] Diabetes Association (ADA) provides guidance for cutoff values for fasting glucose and random glucose. The ADA defines fasting as no caloric intake for at least 8 hours. Fasting plasma glucose results between 100 to 125 mg/dL indicate increased risk for diabetes (prediabetes). Fasting plasma glucose results greater than or equal to 126 mg/dL meet the criteria for diagnosis of diabetes. In the absence of unequivocal hyperglycemia, results should be confirmed by repeat testing. In a patient with classic symptoms of hyperglycemia or hyperglycemic crisis, random plasma glucose results greater than or equal to 200 mg/dL meet the criteria for diagnosis of diabetes. Reference: Standards of Medical Care in Diabetes 2016, [place] Diabetes Association. Diabetes Care. 2016.39(Suppl 1). Performed By: #### 3 016-3, 94303-7 ####[facility] [place] LABCLIA [id number] [place] [address] [place] Potassium [Moles/Vol] 4.1 mmol/L Normal 3.7-5.1 [facility] Comment on above: Order Comment: Speci men Type: BLOOD SPECIMENOrdering Facility: [facility] Address: [address] [place] [address] Performed By: #### 3 016-3, ####[facility] [place] LABCLIA [id number] [place] [address] [place] Protein [Mass/Vol] 7.5 g/dL Normal 6.3-8.0 [facility] Comment on above: Order Comment: Speci men Type: BLOOD SPECIMENOrdering Facility: [facility] Address: [address] [place] [address] Performed By: #### 3 016-3, ####[facility] LABCLIA [id number] [place] [address] [place] Sodium [Moles/Vol] 142 mmol/L Normal 136-144 [facility] Comment on above: Order Comment: Speci men Type: BLOOD SPECIMENOrdering Facility: [facility] Address: [address] [place] [address] Performed By: #### 3 016-3, ####[facility] [place] LABCLIA [id number] [place] [address] [place] Urea nitrogen [Mass/Vol] 13 mg/dL Normal 7-21 [facility] Comment on above: Order Comment: Speci men Type: BLOOD SPECIMENOrdering Facility: [facility] Address: [address] [place] [address] Performed By: #### 3 016-3, 97482-8 ####[facility] [place] LABCLIA [id number] [place] [address] [place] TSH SerPl-aCncon 12-28-2023 TSH Qn 2.400 m[IU]/L Normal 0.270-4.200 [facility] Comment on above: Order Comment: Julisa stein Type: BLOOD SPECIMENOrdering Facility: [facility] Address: [address] [place] [address] Result Comment: If t he patient is , TSH reference range varies by gestational period: First Trimester (weeks 9-12): 0.180-2.990 mIU/L Second Trimester: 0.110-3.980 mIU/L Third Trimester: 0.480-4.710 mIU/L Venu Nelson et al. A Practical Approach for the Verifications and Determination of Site- and Trimester-Specific Reference Intervals for Thyroid Function tests in . Thyroid, 2019:29:3:412-420. Mac Bender, et al. 2017 Guidelines of the [place] Thyroid Association for the Diagnosis and Management of Thyroid Disease during and the . Thyroid, 2017:27:3:315-389. Performed By: #### 3 016-3, 07282-3 ####[facility] LABCLIA [id number] [place] [address] [place] Vit B12 [facility] 024 Cobalamin (Vitamin B12) [Mass/Vol] 609 pg/mL Normal 232-1245 [facility] Comment on above: Order Comment: Julisa stein Type: BLOOD SPECIMENOrdering Facility: [facility] Address: [address] [place] [address] Performed By: #### 2 132-9 ####[facility] LABORATORYCLIA [id number] [place] [id number] [place] XR SHLDR >/=3V AP/SANYA AP/OTH R LTon 12-28-2023 XR SHLDR >/=3V AP/SANYA AP/OTHR LT * * *Final Report* * * DATE OF EXAM: Dec 28 2023 3:58PM LDX 5252 - XR SHLDR >/=3V AP/SANYA AP/OTHR LT / PROCEDURE REASON: Acute pain of left shoulder * * * * Physician Interpretation * * * * HISTORY: 48-YEAR-OLD FEMALE WITH Acute pain of left shoulder . patient states pain of the left shoulder without known injury. TECHNIQUE: XR SHLDR >/=3V AP/SANYA AP/OTHR LT Laterality: LEFT Number of different views (projections): 3 COMPARISON: None RESULT: Left shoulder: Glenohumeral joint space is maintained. Acromiohumeral interval is maintained. Acromioclavicular joint is intact. No fracture or dislocation. IMPRESSION: NO ACUTE BONY ABNORMALITY. Brick Picker: [email or web address] Transcribe Date/Time: Dec 30 2023 6:17P Dictated by : TIMO HERNANDEZ MD This examination was interpreted and the report reviewed and electronically signed by: TIMO HERNANDEZ MD on Dec 30 2023 6:20PM EST [id number] Normal [facility] Progress Noteon 12-27-2023 Progress Note [facility] [employer] [facility] [employer] [place] [address] [facility] [address] Dept: [phone] Dept PHYSICAL THERAPY TREATMENT Patient Name: Petar Alcocer : 1975 Date of Service: 12/27/2023 Referring Provider: Sabas Reyes DPM Visit #: 12 Diagnosis: Plantar fascial fibromatosis Mechanism of injury: 05/18/23 operation: 1. 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 Implantation of nerve of a branch of the common peroneal nerve into the peroneal muscle belly left lower leg 3. Neuroplasty dorsal left foot of the deep peroneal nerve Release of anterior compartment above the fibular head Neuroma removal off of fibular nerve LLE Extensor retinaculum release off of deep peroneal nerve Patient Preferences: Star Precautions/Red Flags: Yes medical precautions: bipolar disorder, Hx of heart attack, PTSD, CVA Adhesive allergy: no taping, wound on plantar surface of L foot, tinea pedis Subjective 08/14. [facility] and I could only stand for about 5 mins. My legs started hurting. I was putting more pressure on right leg and then when I would shift left side, I got pain from my mid calf down into my heel, I feel like I am going backwards. Compliance with HEP: Yes Objective Objective measurements not taken today. Treatment Therapeutic Exercise Therapeutic Exercise Activity 8: calf raises on leg press Activity 8 Comment: 3 plates, 2x10 Therapeutic Exercise Activity 9: leg press Activity 9 Comment: 3 plates, 2x10 Therapeutic Exercise Activity 11: balance- airex Activity 11 Comment: 1) WBOS 1', 2) NBOS-1' 3) mod tandem R/L 1' ea Therapeutic Exercise Activity 12: slant board stretch- gastroc and soleus Activity 12 Comment: 2x30 ea Soft Tissue Mobilization Location: L>R gastroc/plantar fascia Body Position: Prone Comments: [facility] Home Exercise Program: Deferred Assessment Skilled physical therapy interventions utilized to improve patient?s impairments and work towards established goals. Patient response to treatment: Patient completed session with no increase in pain level. Patient tolerated exercises well. Patient had reduced turgor following manual. Patient will benefit from continued physical therapy to progress foot ankle strength The rationale for today?s treatment was explained to the patient. Verbal cues were provided for correct form with all exercises. Advised patient to continue with Home Exercise Program (HEP). Goals General/Ortho Patient will be independent with HEP. (Progressing) Start: 10/31/23 Expected End: 02/03/24 Patient will report decreased pain at no more than 4/10 in L foot/ankle to be able to improve participation in functional activities. (Progressing) Start: 10/31/23 Expected End: 02/03/24 Balance: Patient will improve SLS to to >20 sec to improve safety with transfers. (Progressing) Start: 10/31/23 Expected End: 02/03/24 Functional Outcome Measure: Patient will improve FAAM to no less than 85% ability (Not Addressed) Start: 10/31/23 Expected End: 02/03/24 Plan Plan for next session: progress functional strength as patient can tolerate. Time Entry Total Treatment Time Start Time: 804 Stop Time: 831 Time Calculation (min): 27 min PT Therapeutic Procedures Time Entry Therapeutic Exercise Time Entry: 10 Manual Therapy Time Entry: 15 Cherelle Valerio PTA [facility] Progress Noteon 12-22-2023 Progress Note [facility] [address] [place] [address] Dept: [phone] Dept PHYSICAL THERAPY TREATMENT Patient Name: Petar Alcocer : 1975 Date of Service: 12/22/2023 Referring Provider: Sabas Reyes DPM Visit #: 11 Diagnosis: Plantar fascial fibromatosis Mechanism of injury: 05/18/23 operation: 1. 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 Implantation of nerve of a branch of the common peroneal nerve into the peroneal muscle belly left lower leg 3. Neuroplasty dorsal left foot of the deep peroneal nerve Release of anterior compartment above the fibular head Neuroma removal off of fibular nerve LLE Extensor retinaculum release off of deep peroneal nerve Patient Preferences: Star Precautions/Red Flags: Yes medical precautions: bipolar disorder, Hx of heart attack, PTSD, CVA Adhesive allergy: no taping, wound on plantar surface of L foot, tinea pedis Subjective 7/10 pain in both legs local to calf and heels. Reports went to work yesterday and was better when she was up and moving around. Reports standing still or resting increases pain in the heels. Nothing into her back/thighs. Patient's feet are very tender to touch L>R and plantar fascia/achilles tendonitis distribution. Compliance with HEP: No Objective Objective measurements not taken today. Treatment Therapeutic Exercise Therapeutic Exercise Activity 4: prone lying Activity 4 Comment: flat x 2 min; prop x 5 min; prop press ups x 10 reps Therapeutic Exercise Activity 5: Glut sets Pron Activity 5 Comment: x 10 reps Therapeutic Exercise Activity 6: TrA bracing Activity 6 Comment: x 10 reps Therapeutic Exercise Activity 10: scap retraction prone Activity 10 Comment: x 10 reps THER ACT all above Soft Tissue Mobilization Location: L>R gastroc/plantar fascia Body Position: Prone Home Exercise Program: Progressed home exercise program Assessment Skilled physical therapy interventions utilized to improve patient?s impairments and work towards established goals. Patient response to treatment: Able to reduce symptoms to near 0 with prone extension in propped position. Issued this sequence as well as isometrics of TrA/gluts/scap for improved postural/core stabilization. Unable to tolerate hip ext prone due to increased lumbar pain today. Manual completed to lower legs/feet for decreasing turgor and tenderness. Patient will benefit from continued physical therapy to progress strength of core/LEs The rationale for today?s treatment was explained to the patient. Verbal cues were provided for correct form with all exercises. Advised patient to continue with Home Exercise Program (HEP). Goals General/Ortho Patient will be independent with HEP. (Progressing) Start: 10/31/23 Expected End: 02/03/24 Patient will report decreased pain at no more than 4/10 in L foot/ankle to be able to improve participation in functional activities. (Progressing) Start: 10/31/23 Expected End: 02/03/24 Balance: Patient will improve SLS to to >20 sec to improve safety with transfers. (Progressing) Start: 10/31/23 Expected End: 02/03/24 Functional Outcome Measure: Patient will improve FAAM to no less than 85% ability (Progressing) Start: 10/31/23 Expected End: 02/03/24 Plan Plan for next session: continue with functional strengthening as tolerated, consider continued prone activities for stabilization of core/LE strength Time Entry Total Treatment Time Start Time: 0700 Stop Time: 0730 Time Calculation (min): 30 min PT Therapeutic Procedures Time Entry Therapeutic Activity Time Entry: 15 Manual Therapy Time Entry: 15 Linda Randle, PT, DPT, NCS [facility] Progress Noteon 12-20-2023 Progress Note [facility] [address] [facility] [address] Dept: [phone] Dept PHYSICAL THERAPY TREATMENT Patient Name: Petar Alcocer : 1975 Date of Service: 12/20/2023 Referring Provider: Sabas Reyes DPM Visit #: 10 Diagnosis: Plantar fascial fibromatosis Mechanism of injury: 05/18/23 operation: 1. 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 Implantation of nerve of a branch of the common peroneal nerve into the peroneal muscle belly left lower leg 3. Neuroplasty dorsal left foot of the deep peroneal nerve Release of anterior compartment above the fibular head Neuroma removal off of fibular nerve LLE Extensor retinaculum release off of deep peroneal nerve Patient Preferences: Star Subjective Pt reports Sunday after moving L foot turned purple/bruised. Started having N/T, pins and needles from L knee to heel. Saw MD today, ordered MRI of lumbar. Current L foot pain 10/10, R foot 7/10. Compliance with HEP: minimal since moving Objective Objective measurements not taken today. Treatment Therapeutic Exercise Therapeutic Exercise Activity 4: prone lying Activity 4 Comment: flat x 2 min; prop x 1 min Therapeutic Exercise Activity 5: supine SKC L Activity 5 Comment: x 1 Therapeutic Exercise Activity 6: seated sciatic nerve glide Activity 6 Comment: x 2 Patient Education: Discussed causes of peripheralization into leg from back; instructed in use of lumbar roll when seated. Maintain posture during activities Home Exercise Program: Deferred Assessment Skilled physical therapy interventions utilized to improve patient?s impairments and work towards established goals. Patient response to treatment: unable to tolerated SKC. No change in LE symptoms lying prone flat, increased N/T into lower leg with prone prop. Slight relief of L lumbar discomfort with LTR to R. Trial of nerve glides caused sharp into L arch. Education in posture, lumbar roll. Patient will benefit from continued physical therapy to decrease pain, symptoms; improve strength and function. The rationale for today?s treatment was explained to the patient. Verbal cues were provided for correct form with all exercises. Advised patient to continue with Home Exercise Program (HEP). Goals General/Ortho Patient will be independent with HEP. (Not Addressed) Start: 10/31/23 Expected End: 02/03/24 Patient will report decreased pain at no more than 4/10 in L foot/ankle to be able to improve participation in functional activities. (Not Progressing) Start: 10/31/23 Expected End: 02/03/24 Balance: Patient will improve SLS to to >20 sec to improve safety with transfers. (Not Addressed) Start: 10/31/23 Expected End: 02/03/24 Functional Outcome Measure: Patient will improve FAAM to no less than 85% ability (Not Addressed) Start: 10/31/23 Expected End: 02/03/24 Plan Plan for next session: assess L LE symptoms, progress ankle/foot strength as able. Time Entry Total Treatment Time Start Time: 106 Stop Time: 131 Time Calculation (min): 25 min PT Therapeutic Procedures Time Entry Therapeutic Exercise Time Entry: 25 Lindsey Mcgregor PTA [facility] CNPNon 12-17-2023 CNPN Telephone ([facility]) BRITTNEY ALCOCER ([id number]) 1975 F NFR Date Time Provider Department 12/17/23 SUSANA DE SOUZA [facility] During your visit today, we recorded the following information about you: Susana De Souza 12/17/2023 8:39 AM Signed Ambulatory Pharmacy Prior Authorization Note Provider Intervention Required?: No- Pharmacy completed on your behalf. Rx Plan: Medicaid MCO ([facility]) Drug: EMGALITY Cover My Meds Louise: [id number] Determination: Denied PA Denied because: Step therapy requirement Coverage is provided when the member meets the following requirements: 1. Member has a history of at least 30 days of therapy of either Aimovig or Ajovy (both require step therapy prior authorization). Step therapy requires submitted documentation of severity, frequency, type of migraine, and number of headache days per month (preferably a headache diary). Chart notes from your provider and/or pharmacy claims history received do not show a documented 30 day trial of the preferred medication(s) (medications covered by the plan). Please provide start and end dates of use for all preferred medications. Member has coverage for the time indicated of the trial of Aimovig medication, but are not found in claims history. Please explain how the member was receiving medication (samples are not accepted as trials). The [facility] Policy for Medical Necessity as posted on the [facility] website and [facility] Preferred Drug List criteria were reviewed and per [place] Administrative Code Rule 5160-1-01 (C) and (B), a medically necessary service must include: generally accepted standards of medical practice, be clinically appropriate in administration, treatment and outcome and be the lowest cost alternative to effectively treat the condition. Please contact your provider to assist you with other treatment options that might be covered under your benefit package, or other services that might be available through the community. Prior Authorization/Case #: N/A Prior Authorization Expiration: N/A Time to PA Submission in CMM: N/A Time to PA Determination in CMM: N/A Additional Information: PA Denial Appeal Process You may ask for an appeal within sixty (60) calendar days after the date of notice. [employer] will provide you with an answer to your appeal within fifteen (15) calendar days from the date you contacted us. If you believe fifteen (15) calendar days could seriously jeopardize your life, physical or mental health or ability to attain, maintain, or regain maximum function, contact [facility] Member Services at the number listed below as soon as possible to expedite your review process. You can submit an appeal by: Calling Member [employer] at (TTY ). Logging into the [employer] website and clicking on ?request appeal? at [email or web address]. Mailing the form attached to this letter and all additional documentation or information to: Attn: [facility] [address] [place] [address] Your appeal must contain: Your full name and member ID number. Your prescriber?s name. Name of medication or Durable Medical Equipment (DME) product. The reason you disagree with the outcome provided by [employer]. Any additional documentation or information to support your request to have the decision changed. If we do not change our decision as a result of your appeal, you will be notified of your right to request a state hearing. If you would like to request a state hearing, you or your authorized corporate representative must submit a request within ninety (90) calendar days of the notification date of your denied appeal. You must complete the [employer] appeal process before you are able to request a state hearing. As a member, you have the option to request copies of the documents, records, and other information related to this prior authorization, free of charge. You also have the right to request to continue receiving the service we have denied while we are reviewing your appeal request. Continuation of services must be requested no later than ten (10) days after the date of this notice. You can request copies of documents or request a continuation of services by calling [employer] toll-free at [phone] (TTY ) or submitting an online request for this information via your member portal at [email or web address]. Please contact your prescriber or [employer] Member Services by calling our toll-free number at (TTY ) if you have any question about the information listed above. More information regarding your appeal and state hearing rights is available in your Member Handbook which is located on the Member portal at [email or web address]. Sincerely, [employer] Prior Auth (more content not included)... Normal [facility] CNPN Telephone (NHMNS2) BRITTNEY ALCOCER ([id number]) 1975 F NFR Date Time Provider Department 12/17/23 DEBORAH TEIXEIRA [facility] During your visit today, we recorded the following information about you: Oneil Lewis RN 12/17/2023 12:04 PM Signed We will request precertification for Calcitonin Gene Related Peptide Monoclonal Antibody, Fremanezumab. 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 The FDA has approved CGRP MAB for prevention of migraine. Specifically, the patient has 15 migraines per month, lasting 4 or more hours/d associated with photophobia, phonophobia, nausea for three or more months. Medication overuse headache has been ruled out. Patient is currently taking a Gepant (Nurtec) for acute treatment of her migraine. The following preventative medications have been tried for 3 or more months without benefit or discontinued due and/or side effects. Anti-Convulsant Divalproex sodium (Depakote) Gabapentin (Neurontin) Anti-Depressant and Antipsychotic Amitriptyline (Elavil) Bupropion (Wellbutrin) Citalopram (Celexa) Fluoxetine (Prozac) Olanzapine (Zyprexa, Zydis) Quetiapine (Seroquel) Sertraline (Zoloft) Venlafaxine (Effexor) Blood Pressure NO beta blockers - asthma MABs Erenumab (Aimovig) lost efficacy Galcanezumab (Emgality) not effective Botulinum Toxin Onabotulinum Toxin A (Botox) Supplements Magnesium Riboflavin The following abortive medications have been tried but require high frequency use which can lead to Medication Overuse Headache: Analgesic Diclofenac (Voltaren, Cataflam, Cambia) Hydrocodone/Acetaminoph en (Vicodin, [place]) Indomethacin (Indocin) Ketorolac (Toradol) Tramadol (Ultram) celebrex Anti-Anxiety Alprazolam (Xanax, Niravam) Anti-Migraine Naratriptan (Amerge) Rizatriptan (Maxalt) Sumatriptan (Imitrex, Sumavel) raised blood pressure cannot use triptans - H/O TIA and [place] GEPANTS Rimegepant (Nurtec) Over the Counter Medications Acetaminophen (Tylenol) Ibuprofen (Advil, Motrin) Brandon MITCHELL, RN RN Clinical Personal Health Coach [facility] Oneil Lewis RN 12/17/2023 12:23 PM Signed PA submitted via [employer]. Ketnon Alcocer (Louise: [id number]) [employer] has not yet replied to your PA request. You may close this dialog, return to your dashboard, and perform other tasks. To check for an update later, open this request again from your dashboard. If [employer] has not replied to your request within 24 hours please contact [employer] at . Brandon MITCHELL, RN RN Clinical Personal Health Coach [facility] Oneil Lewis RN 12/17/2023 2:12 PM Signed Brittney Alcocer (Louise: [id number]) This request has received a Favorable outcome. Approved today by [place] [employer] 2017 Your PA request for [id number] was approved for 180 days. The PA# assigned is [id number]. Authorization Expiration Date: 06/12/2024 Pt called and notified. Brandon MITCHELL, RN RN Clinical Personal Health Coach [facility] Deborah Teixeira PA-C 12/17/2023 2:16 PM Signed The following approved medication requests have been transmitted electronically. Requested Prescriptions Signed Prescriptions Disp Refills fremanezumab-vfrm subcutaneus auto-injector 225 mg/1.5 mL (AJOVY) 1.5 mL 11 Sig: Inject 1.5 mL subcutaneously once every month. Do not shake. Authorizing Provider: DEBORAH TEIXEIRA PA-C December 17, 2023 2:16 PM Deborah Teixeira PA-C 12/17/2023 2:16 PM Signed Addended by: DEBORAH TEIXEIRA on: 12/17/2023 02:16 PM Modules accepted: Deborah Horan PA-C 12/18/2023 9:06 AM Signed The following approved medication requests have been transmitted electronically. Requested Prescriptions Signed Prescriptions Disp Refills fremanezumab-vfrm subcutaneus auto-injector 225 mg/1.5 mL (AJOVY) 1.5 mL 11 Sig: Inject 1.5 mL subcutaneously once every month. Do not shake. Authorizing Provider: DEBORAH TEIXEIRA PA-C December 18, 2023 9:06 AM Deborah Teixeira PA-C 12/18/2023 9:06 AM Signed Addended by: DEBORAH TEIXEIRA on: 12/18/2023 09:06 AM Modules accepted: Heidi Nur 12/20/2023 7:58 AM Signed Sent PA approval to patient in [facility] - also set up recall letter to deliver at later date Allergies As of Date: 12/17/2023 Noted Allergy Reaction CITALOPRAM HYDROBROMIDE 10/27/2004 10 - Anaphylaxis Comments: TACHYCARDIA MORPHINE 01/26/2005 8 - GI Upset AMOXICILLIN 10/24/2004 8 - GI Upset 14 - Other: See Comments Comments: Makes (more content not included)... Normal [facility] Progress Noteon 12-15-2023 Progress Note [facility] [address] [place] [address] [place] [address] Dept: [phone] Dept PHYSICAL THERAPY TREATMENT Patient Name: Petar Alcocer : 1975 Date of Service: 12/15/2023 Referring Provider: Sabas Reyes DPM Visit #: [id number] Diagnosis: Plantar fascial fibromatosis Mechanism of injury: 05/18/23 operation: 1. 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 Implantation of nerve of a branch of the common peroneal nerve into the peroneal muscle belly left lower leg 3. Neuroplasty dorsal left foot of the deep peroneal nerve Release of anterior compartment above the fibular head Neuroma removal off of fibular nerve LLE Extensor retinaculum release off of deep peroneal nerve Patient Preferences: Star Precautions/Red Flags: Yes medical precautions: bipolar disorder, Hx of heart attack, PTSD, CVA Adhesive allergy: no taping, wound on plantar surface of L foot, tinea pedis Subjective Pt reports pain of 7/8 in bilateral heels, L heel pain is > R heel pain. Pt has slight pain with LLE during 4 way hip exercises. Compliance with HEP: Yes Objective Objective measurements not taken today. Treatment Therapeutic Exercise Therapeutic Exercise Activity 1: Gastroc stretch Activity 1 Comment: 2x30' holds Therapeutic Exercise Activity 2: 3 way ankle Activity 2 Comment: 2x10 each green tb Therapeutic Exercise Activity 3: 4 way hip Activity 3 Comment: 2x10 each green tb Home Exercise Program: Deferred Assessment Skilled physical therapy interventions utilized to improve patient?s impairments and work towards established goals. Patient response to treatment: pt has increased pain on L ankle with most exercises this date. Pt responds well to resistive ankle exercises and states they help reduce pain. Patient will benefit from continued physical therapy to progress towards goals. The rationale for today?s treatment was explained to the patient. Verbal cues were provided for correct form with all exercises. Advised patient to continue with Home Exercise Program (HEP). Goals General/Ortho Patient will be independent with HEP. (Progressing) Start: 10/31/23 Expected End: 02/03/24 Patient will report decreased pain at no more than 4/10 in L foot/ankle to be able to improve participation in functional activities. (Progressing) Start: 10/31/23 Expected End: 02/03/24 Balance: Patient will improve SLS to to >20 sec to improve safety with transfers. (Progressing) Start: 10/31/23 Expected End: 02/03/24 Functional Outcome Measure: Patient will improve FAAM to no less than 85% ability (Progressing) Start: 10/31/23 Expected End: 02/03/24 Plan Plan for next session: continue BLE strengthening with emphasis on ankle strengthening. Time Entry Total Treatment Time Start Time: 758 Stop Time: 825 Time Calculation (min): 27 min PT Therapeutic Procedures Time Entry Therapeutic Exercise Time Entry: 25 Kalpesh Dumont PTA [facility] Progress Noteon 12-13-2023 Progress Note [facility] AT [address] [address] Dept: [phone] Dept PHYSICAL THERAPY TREATMENT Patient Name: Petar Alcocer : 1975 Date of Service: 12/13/2023 Referring Provider: Sabas Reyes DPM Visit #: 8 Diagnosis: Plantar fascial fibromatosis Mechanism of injury: 05/18/23 operation: 1. 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 Implantation of nerve of a branch of the common peroneal nerve into the peroneal muscle belly left lower leg 3. Neuroplasty dorsal left foot of the deep peroneal nerve Release of anterior compartment above the fibular head Neuroma removal off of fibular nerve LLE Extensor retinaculum release off of deep peroneal nerve Patient Preferences: Star Precautions/Red Flags: Yes medical precautions: bipolar disorder, Hx of heart attack, PTSD, CVA Adhesive allergy: no taping, wound on plantar surface of L foot, tinea pedis Subjective 4/10. I am in the process of moving, so I have been really busy. I noticed when I do my exercises at night- I have noticed that my heel doesn't hurt as bad. Compliance with HEP: Yes Objective Objective measurements not taken today. Treatment Therapeutic Exercise Therapeutic Exercise Activity 7: retro gait with bar Activity 7 Comment: 2 plates, 5x; 2.5 plates, 5x Therapeutic Exercise Activity 8: calf raises on leg press Activity 8 Comment: 2 plates, 2x10 Therapeutic Exercise Activity 9: leg press Activity 9 Comment: 3 plates, 2x10 Therapeutic Exercise Activity 11: balance- airex Activity 11 Comment: 1) WBOS 1', 2) NBOS-1' 3) mod tandem R/L 1' ea Therapeutic Exercise Activity 12: slant board stretch- gastroc and soleus Activity 12 Comment: 2x30 ea Therapeutic Exercise Activity 14: standing calf raises x3 (toes in, neutral, toes out) Activity 14 Comment: 15x ea Therapeutic Activity Therapeutic Activity 1: farmers carry R/L Activity 1 Comment: 10# KB 100' x1 ea Therapeutic Activity 2: weighted carry at chest Activity 2 Comment: 10# KB 100' x1 Home Exercise Program: Deferred Assessment Skilled physical therapy interventions utilized to improve patient?s impairments and work towards established goals. Patient response to treatment: Progressed LE strengthening and functional activities. Patient completed with no increase in pain levels. Patient was fatigued with progressions. Patient required verbal cues for proper form on exercises. Patient will benefit from continued physical therapy to progress core and LE strength The rationale for today?s treatment was explained to the patient. Verbal cues were provided for correct form with all exercises. Advised patient to continue with Home Exercise Program (HEP). Goals General/Ortho Patient will be independent with HEP. (Progressing) Start: 10/31/23 Expected End: 02/03/24 Patient will report decreased pain at no more than 4/10 in L foot/ankle to be able to improve participation in functional activities. (Progressing) Start: 10/31/23 Expected End: 02/03/24 Balance: Patient will improve SLS to to >20 sec to improve safety with transfers. (Progressing) Start: 10/31/23 Expected End: 02/03/24 Functional Outcome Measure: Patient will improve FAAM to no less than 85% ability (Not Addressed) Start: 10/31/23 Expected End: 02/03/24 Plan Plan for next session: progress core and LE strengthening exercises. Time Entry Total Treatment Time Start Time: 1035 Stop Time: 1100 Time Calculation (min): 25 min PT Therapeutic Procedures Time Entry Therapeutic Exercise Time Entry: 15 Therapeutic Activity Time Entry: 8 Cherelle Valerio PTA [facility] CNOVon 12-12-2023 CN Office Visit (ALFB) BRITTNEY ALCOCER ([id number]) 1975 F NFR Date Time Provider Department 12/12/23 10:00 AM YENNY OSMAN [facility] During your visit today, we recorded the following information about you: Pulse Blood pressure Weight Height 80/minute 101/62 81.2 kg 1.473 m Yenny Osman APRN.[facility] 12/12/2023 10:35 AM Signed Headache Center Follow-up Visit Miscellaneous Patient Concerns: She is waiting to start Emgality as adjunct preventive therapy. Will likely help with wearing off effect from Botox. Nurtec as needed is still effective for her. Impression: Chronic migraine without aura, intractable, without status migrainosus (primary encounter diagnosis) Brittney Alcocer has been previously approved for an Oral Calcitonin Gene-Related Peptide Receptor Antagonist (GEPANT) Rimegepant for the treatment of abortive use. The patient has demonstrated the following: Provider attests patient has had a positive clinical response: Yes Patient will not use with another Oral Calcitonin Gene-Related Peptide Receptor Antagonist (GEPANT): Yes Patient's quality of life and ability to perform ADLs has improved: Yes The patient has a contraindication stroke We suggest the patient continue treatment with GEPANT Rimegepant. The following preventative medications have been tried for three or more months without benefit: Anti-Convulsant Divalproex sodium (Depakote) Gabapentin (Neurontin) Anti-Depressant and Antipsychotic Amitriptyline (Elavil) Bupropion (Wellbutrin) Citalopram (Celexa) Fluoxetine (Prozac) Olanzapine (Zyprexa, Zydis) Quetiapine (Seroquel) Sertraline (Zoloft) Venlafaxine (Effexor) Blood Pressure NO beta blockers - asthma MABs Erenumab (Aimovig) lost efficacy Galcanezumab (Emgality) not effective Botulinum Toxin Onabotulinum Toxin A (Botox) Supplements Magnesium Riboflavin The following abortive medications have been tried but require high frequency use which can lead to Medication Overuse Headache: Analgesic Diclofenac (Voltaren, Cataflam, [place]) Hydrocodone/Acetaminoph en (Vicodin, [place]) Indomethacin (Indocin) Ketorolac (Toradol) Tramadol (Ultram) celebrex Anti-Anxiety Alprazolam (Xanax, Niravam) Anti-Migraine Naratriptan (Amerge) Rizatriptan (Maxalt) Sumatriptan (Imitrex, Sumavel) raised blood pressure cannot use triptans - H/O TIA and [place] GEPANTS Rimegepant (Nurtec) Over the Counter Medications Acetaminophen (Tylenol) Ibuprofen (Advil, Motrin) Follow-Up Onabotulinum Toxin A (BotoxTM) for Migraine Indication: Chronic Intractable Migraine Referral Expiration: 12/10/2024 Prior to the initiation of the FIRST treatment with Onabotulinum Toxin A, the patient reported the following average headache frequency over the past 3 MONTHS: Number of moderate-severe migraine days/month: 30 (daily) Number of mild migraine days/month: 0 Number of headache free days/month: 0 (0 headache-free hours) Migraine severity: 10/10 After treatment with Onabotulinum Toxin A: Number of moderate-severe migraine days/month: 15 Number of mild migraine days/month: 0 Number of headache free days/month: 15 (360 headache-free hours) Migraine severity: 7/10 Patient reduction in overall migraine days: Yes Patient reduction in moderate-severe migraine days: Yes Patient reduction of headache hours by 100 hours or more: Yes (reduction of 360 hours) Individual has obtained clinical benefit deemed significant by individual or prescriber (Y/N): Yes Patient's quality of life and ability to perform ADLs has improved (Y/N): Yes Side effects: none Wearing off: Yes - 8 weeks after treatment The patient has been assessed for disorders which could contribute to breathing or swallowing difficulty, and there is no contraindication with PREEMPT Botox. There is no documented allergic reaction/hypersensitivi ty to any botulinum toxin and there is no active infection at proposed injection site. HEADACHE SCORES: 12/04/2022 02/09/2023 11/14/2023 Headache Questions ER visits since last office visit: 2 0 0 Hospital stays since last office visit 0 0 0 Limited ADLs in the last month: 0 6 20 Days missed from work or school in the last month: 0 2 10 Days headache pain free in the last month: 2 2 15 Days per month with ALL of the following symptoms - decreased productivity, light sensitivity and nausea: 7 5 10 Initial improvement of headache after botox injection at last visit: Very much improved Very much improved Very much improved PRN medication usage in the last month: 4 0 Patient impression of improvement since last visit: Much improved Much improved 02/09/2023 07/12/2023 11/14/2023 HIT-6 HIT-6 66 (Severe impact) 67 (Severe impact) 64 (Severe impact) 02/09/2023 07/12/2023 11/14/2023 DAVID - 2/7 SCORES DAVID-2 Score 0 3 0 DAVID-7 Score 9 02/09/2023 07/12/202311/13 (more content not included)... Normal [facility] CNOVon 12-11-2023 CNOV Office Visit (NHMNS2 ) BRITTNEY ALCOCER ([id number]) 1975 F NFR Date Time Provider Department 12/11/23 1:00 PM DEBORAH TEIXEIRA [facility] During your visit today, we recorded the following information about you: Deborah Teixeira PA-C 12/11/2023 8:53 AM Signed [facility]: [phone] Licensed in [place], [place], [place], [place], [place], [place], [place], [place], [place], [place] and [place] Start emgality once monthly Deborah Teixeira PA-C 12/11/2023 8:54 AM Signed Headache Center Infusion [facility]APAN Note Subjective: Brittney Alcocer is a 48 year old year old female presenting for day 3 of infusions. Response to infusions: Headache improving. and had nausea with magnesium on day two Current Preventative: Botox and Gabapentin 800mg QID Current Abortive: Nurtec, zofran Labs: Latest Ref Rng AND Units 08/17/2023 CBC WBC 3.70 - 11.00 k/uL 7.83 RBC 3.90 - 5.20 m/uL 4.81 Hemoglobin 11.5 - 15.5 g/dL 15.5 Hematocrit 36.0 - 46.0 % 46.0 MCV 80.0 - 100.0 fL 95.6 MCH 26.0 - 34.0 pg 32.2 MCHC 30.5 - 36.0 g/dL 33.7 RDW-CV 11.5 - 15.0 % 13.2 Platelet Count 150 - 400 k/uL 212 MPV 9.0 - 12.7 fL 9.5 Baso% % 0.4 Abs Neut (ANC) 1.45 - 7.50 k/uL 5.97 Abs Lymph 1.00 - 4.00 k/uL 1.17 Abs Simpson <0.87 k/uL 0.54 Abs Eosin <0.46 k/uL 0.11 Abs Baso <0.11 k/uL 0.03 Latest Ref Rng AND Units 08/17/2023 CMP Sodium 136 - 144 mmol/L 138 Potassium 3.7 - 5.1 mmol/L 4.0 Chloride 98 - 107 mmol/L 102 CO2 22 - 30 mmol/L 23 Glucose 74 - 99 mg/dL 111 BUN 7 - 21 mg/dL 12 Creatinine 0.58 - 0.96 mg/dL 0.86 EGFR >=60 mL/min/1.73m? 83 Protein, Total 6.3 - 8.0 g/dL 7.9 Albumin 3.9 - 4.9 g/dL 4.6 Calcium 8.5 - 10.2 mg/dL 9.5 Bilirubin, Total 0.2 - 1.3 mg/dL 0.6 AST 13 - 35 U/L 16 ALT 7 - 38 U/L 14 Alkaline Phosphatase 34 - 123 U/L 125 ALLERGIES Allergen Reactions Citalopram Hydrobro* Anaphylaxis TACHYCARDIA Morphine GI Upset Amoxicillin GI Upset, Other: See Comments Makes me worse Asa [Salicylates] Hives Chocolate Effexor [Venlafaxin* Vomiting Naproxen Intolerance Depression Penicillin G GI Upset Tape [Adhesive Tape* Other: See Comments Rash Tomato Intolerance If cooked cant tolerate them Tramadol GI Upset Trazodone Mental Status Change Causes hallucinations Venlafaxine Unknown Current Medications: lansoprazole (PREVACID) 30 mg capsuleTake 1 capsule by mouth two times a day.Disp: 60 capsuleRfl: 0 simvastatin (ZOCOR) 20 mg tabletTake 2 tablets by mouth daily at bedtime.Disp: 180 tabletRfl: 3 gabapentin (NEURONTIN) 800 mg tabletTake 1 tablet by mouth four times daily for 180 days.Disp: 120 tabletRfl: 5 mirabegron (MYRBETRIQ) 50 mg [id number] 1 tablet by mouth once daily.Disp: 30 tabletRfl: 5 rimegepant (NURTEC ODT) 75 mg disintegrating tabletTake 1 tablet at onset of headache/migraine. Only take 1 tablet as single dose in 24 hour period.Disp: 8 tabletRfl: 11 ondansetron orally disintegrating (ZOFRAN ODT) 4 mg disintegrating tabletdissolve 1 tablet ON TONGUE every 8 hours if needed for nausea OR vomitingDisp: 20 tabletRfl: 11 loratadine (CLARITIN) 10 mg tablettake 1 tablet by mouth once dailyDisp: 28 tabletRfl: 11 MEDICATION, NON-DATABASEMarijuana for migrainesDisp: Rfl: Review of Systems: Review of system: Patient reports no change from the prior visit. Objective: VS: see infusion note for vital signs General: well appearing, in no acute distress, alert Neurological: Pain Behaviors: no pain behaviors observed Mental Status: Alert and oriented to person, place and time. Affect is normal. Speech is spontaneous and fluent without dysarthria. Short and snf memory, cognition and general fund of knowledge are good. Attention span and concentration are excellent. Cranial Nerves: VII-face is symmetric without evidence of weakness. VIII-hearing intact. Assessment: (G43.719) Chronic migraine without aura, intractable, without status migrainosus (primary encounter diagnosis) Plan: Brittney Alcocer is a 48 year old year old female, with a history of chronic migraine, stroke, [place],chronic pain syndrome, TMJD, concussion, peptic ulcer, hypothyroid, asthma, pelvic pain, renal stones and insomnia following up today for day 3 of infusions. She reports she does well with infusions prior to botox - will have less migraines and clearer head. She was previously unable to try emgality due to insurance issues - she wishes to try emgality at this time - reviewed dosing and potential side effects and will send to [facility]. Patient verbalized understanding and agreed to treatment plan. We will request precertification for Calcitonin Gene Related Peptide Monoclonal Antibody, Galcanezumab. This patient meets ICHD-3 criteria for treatment with CGRP MAB, She has Chronic Migraine Headache (CM), Chronic Migraine without aura, without mention of intractable migraine wit (more content not included)... Normal [facility] CNOVon 12-07-2023 CNOV Office Visit (NHMNS2 ) BRITTNEY ALCOCER ([id number]) 1975 F NFR Date Time Provider Department 12/07/23 8:00 AM PAULINO RAE [facility] During your visit today, we recorded the following information about you: Paulino Rae PA-C 12/07/2023 8:38 AM Signed Headache [facility] Infusion [facility]AP[facility] Note Subjective: Brittney Alcocer is a 48 year old year old female presenting for day 1 of infusions. Previous infusion 07/2023-worked well in combination with botox. No concerns today. Therapy Plan: zofran magnesium robaxin valproate benadryl New health conditions since orders were placed: No Cardiovascular risk factors: History of a stroke 1998 and [place] 1998 with cocaine overdose, hyperlipidemia Triptan dose in the last 24 hours: No, CI Last muscle relaxer dose: No Last NSAID dose: No Response to infusions: Patient tolerating infusion without side effects. Current Preventative: Botox and Gabapentin [facility] Labs: Latest Ref Rng AND Units 08/17/2023 CBC WBC 3.70 - 11.00 k/uL 7.83 RBC 3.90 - 5.20 m/uL 4.81 Hemoglobin 11.5 - 15.5 g/dL 15.5 Hematocrit 36.0 - 46.0 % 46.0 MCV 80.0 - 100.0 fL 95.6 MCH 26.0 - 34.0 pg 32.2 MCHC 30.5 - 36.0 g/dL 33.7 RDW-CV 11.5 - 15.0 % 13.2 Platelet Count 150 - 400 k/uL 212 MPV 9.0 - 12.7 fL 9.5 Baso% % 0.4 Abs Neut (ANC) 1.45 - 7.50 k/uL 5.97 Abs Lymph 1.00 - 4.00 k/uL 1.17 Abs Simpson <0.87 k/uL 0.54 Abs Eosin <0.46 k/uL 0.11 Abs Baso <0.11 k/uL 0.03 Latest Ref Rng AND Units 08/17/2023 CMP Sodium 136 - 144 mmol/L 138 Potassium 3.7 - 5.1 mmol/L 4.0 Chloride 98 - 107 mmol/L 102 CO2 22 - 30 mmol/L 23 Glucose 74 - 99 mg/dL 111 BUN 7 - 21 mg/dL 12 Creatinine 0.58 - 0.96 mg/dL 0.86 EGFR >=60 mL/min/1.73m? 83 Protein, Total 6.3 - 8.0 g/dL 7.9 Albumin 3.9 - 4.9 g/dL 4.6 Calcium 8.5 - 10.2 mg/dL 9.5 Bilirubin, Total 0.2 - 1.3 mg/dL 0.6 AST 13 - 35 U/L 16 ALT 7 - 38 U/L 14 Alkaline Phosphatase 34 - 123 U/L 125 ALLERGIES Allergen Reactions Citalopram Hydrobro* Anaphylaxis TACHYCARDIA Morphine GI Upset Amoxicillin GI Upset, Other: See Comments Makes me worse Asa [Salicylates] Hives Chocolate Effexor [Venlafaxin* Vomiting Naproxen Intolerance Depression Penicillin G GI Upset Tape [Adhesive Tape* Other: See Comments Rash Tomato Intolerance If cooked cant tolerate them Tramadol GI Upset Trazodone Mental Status Change Causes hallucinations Venlafaxine Unknown Current Medications: lansoprazole (PREVACID) 30 mg capsuleTake 1 capsule by mouth two times a day.Disp: 60 capsuleRfl: 0 simvastatin (ZOCOR) 20 mg tabletTake 2 tablets by mouth daily at bedtime.Disp: 180 tabletRfl: 3 gabapentin (NEURONTIN) 800 mg tabletTake 1 tablet by mouth four times daily for 180 days.Disp: 120 tabletRfl: 5 mirabegron (MYRBETRIQ) 50 mg [id number] 1 tablet by mouth once daily.Disp: 30 tabletRfl: 5 rimegepant (NURTEC ODT) 75 mg disintegrating tabletTake 1 tablet at onset of headache/migraine. Only take 1 tablet as single dose in 24 hour period.Disp: 8 tabletRfl: 11 ondansetron orally disintegrating (ZOFRAN ODT) 4 mg disintegrating tabletdissolve 1 tablet ON TONGUE every 8 hours if needed for nausea OR vomitingDisp: 20 tabletRfl: 11 loratadine (CLARITIN) 10 mg tablettake 1 tablet by mouth once dailyDisp: 28 tabletRfl: 11 MEDICATION, NON-DATABASEMarijuana for migrainesDisp: Rfl: Review of Systems: Review of system: Patient reports no change from the prior visit. Objective: VS: see infusion note for vital signs General: well appearing, in no acute distress, alert Neurological: Pain Behaviors: grimacing Mental Status: Alert and oriented to person, place and time. Affect is normal and appropriate. Speech is spontaneous and fluent without dysarthria, normal in rate, volume and articulation, and clear, coherent, and relevant. 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 Attention span and concentration are excellent. Cranial Nerves: VII-face is symmetric without evidence of weakness. VIII-hearing intact. Assessment: (G43.719) Chronic migraine without aura, intractable, without status migrainosus (primary encounter diagnosis) Plan: Brittney Alcocer is a 48 year old year old female, with a history of History of a stroke 1998 and [place] 1998 with cocaine overdose following up today for day 1 of infusions. Has tolerated infusions well thus far and found them in combination with Botox to work well for her. Follow up plan: Resume previous at home medications. -Hold Nurtec on days of infusion. -Follow-up with the 2-3 of infusions next week Level of service: Est level 1 (0-9 min): Time spent 5 min on the day of service, which included preparing to see the patient, [id number] patient care, completing clinical documentation, obtaining and/or reviewing separately obtained his (more content not included)... Normal [facility] Progress Noteon 12-05-2023 Progress Note [facility] [place] [facility] [address] [place] [address] [place] [address] Dept: [phone] Dept PHYSICAL THERAPY RE-EVALUATION Patient Name: Petar Alcocer : 1975 Date of Service: 12/05/2023 Referring Provider: Sabas Reyes DPM Visit #: 7 Diagnosis: Plantar fascial fibromatosis Mechanism of injury: 05/18/23 operation: 1. 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 Implantation of nerve of a branch of the common peroneal nerve into the peroneal muscle belly left lower leg 3. Neuroplasty dorsal left foot of the deep peroneal nerve Release of anterior compartment above the fibular head Neuroma removal off of fibular nerve LLE Extensor retinaculum release off of deep peroneal nerve Patient Preferences: Star Precautions/Red Flags: Yes medical precautions: bipolar disorder, Hx of heart attack, PTSD, CVA Adhesive allergy: no taping, wound on plantar surface of L foot, tinea pedis Subjective Chief Complaint: Reports that she has been doing the exercises consistently and feels things are starting to ease. Has not gotten the brace/splint. Still has pain in the AM and after prolonged standing. Pain: Current: 4/10 Best: 4/10 Worst: 10/10 Symptoms Aggravated by: extended standing, donning shoes/socks, steps Current Level of Function: ankles sitting still for long periods of time, must move ankles constantly. Able to stand a little longer than an hour without pain. Reports that she must lean on L side when standing for extended periods. Steps have improved going up but continues with going down the stairs. Sleeping still limited at night due to pain. Outcome Measures Foot and Ankle Ability Measure (FAAM): 62/84 =73.8% ability ; 12/05/23: 47/84 = 56% ability Objective ANKLE Leg length: L longer than R Observation: wound on plantar surface of foot, leans to LLE in stance Gait: Antalgic L Lower Extremity Strength Right Left Hip Flexion 5 5 Hip Abduction 5 4+ Hip Extension 4 p! 4 p! Hip External Rotation (ER) 5 5 Hip Internal Rotation (IR) 5 5 Knee Extension 5 5 Knee Flexion 5 5 Ankle Dorsiflexion (DF) 5 5 Ankle Plantarflexion (PF) 5 5 Inversion 5 5 Eversion 5 5 Single Leg Stance (SLS) Balance L SLS= 24 seconds R SLS= 7 seconds Palpation: TTP L calcaneus, L medial and lateral malleolus, evertors, invertors, gastroc; moderate turgor L gastroc Flexibility: Gastroc limited mild Assessment Star is a 48 y.o. patient with chief complaint of heel pain and lower leg pain, who presents with signs and symptoms consistent with plantar fasciitis. The patient had a surgery done on the L foot that seems to exacerbate and/or contribute to her plantar fasciitis. The patient would benefit from skilled physical therapy to address decreased strength, decreased range of motion, pain, soft tissue impairment, impaired gait, and impaired functional activities. Since SOC, patient demonstrates substantially less pain although pain does peak still at a 10/10 and demonstrates improved strength and functional capacity (though FAAM is worse and not correlated to subjective and objective report). Patient continues to struggle with standing/walking activities and would benefit from continued PT to address. Core/hip weakness still present and contributes to stability lower and would benefit from addressing this as well in functional positions/strengthening routines. Goals Active General/Ortho Patient will be independent with HEP. (Progressing) Start: 10/31/23 Expected End: 02/03/24 Patient will report decreased pain at no more than 4/10 in L foot/ankle to be able to improve participation in functional activities. (Progressing) Start: 10/31/23 Expected End: 02/03/24 Patient will increase strength in gross hip to at least 4+/5 and specifically L hip flexion to 4/5 to be able to improve distal stability and improve safety in functional activities. (Completed) Start: 10/31/23 Expected End: 02/03/24 Resolved: 12/05/23 Gait: Patient will demonstrate ability to appropriately bear weight on both lower extremities in stance. (Completed) Start: 10/31/23 Expected End: 02/03/24 Resolved: 12/05/23 Balance: Patient will improve SLS to to >20 sec to improve safety with transfers. (Progressing) Start: 10/31/23 Expected End: 02/03/24 Functional Outcome Measure: Patient will improve FAAM to no less than 85% ability (Progressing) Start: 10/31/23 Expected End: 02/03/24 Plan Frequency and Duration: 1-2/wk for 5 weeks Therapeutic Contents: client education, gait training, group therapy, home exercise program, manual therapy techniques, neuromuscular re-education, therapeutic activities, therapeutic exercise, and modalities as needed Plan for next session: progress hip strength/core strength, balance, LE strength and CKC activity. Risks (more content not included)... Normal [facility] Progress Noteon 11-28-2023 Progress Note [facility] [employer] [facility] [place] [address] [facility] [address] Dept: [phone] Dept PHYSICAL THERAPY TREATMENT Patient Name: Petar Alcocer : 1975 Date of Service: 11/28/2023 Referring Provider: Sabas Reyes DPM Visit #: 6 Diagnosis: Plantar fascial fibromatosis Mechanism of injury: 05/18/23 operation: 1. 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 Implantation of nerve of a branch of the common peroneal nerve into the peroneal muscle belly left lower leg 3. Neuroplasty dorsal left foot of the deep peroneal nerve Release of anterior compartment above the fibular head Neuroma removal off of fibular nerve LLE Extensor retinaculum release off of deep peroneal nerve Patient Preferences: Star Precautions/Red Flags: Yes medical precautions: bipolar disorder, Hx of heart attack, PTSD, CVA Adhesive allergy: no taping, wound on plantar surface of L foot, tinea pedis Subjective 06/14. I am sore today, it was sore after last time, but I managed. I noticed that when I walk- I feel like I have a cast on my left foot. Compliance with HEP: Yes Objective L SLS= 24 seconds R SLS= 7 seconds Treatment Therapeutic Exercise Therapeutic Exercise Activity 12: slant board stretch- gastroc and soleus Activity 12 Comment: 2x30 ea Therapeutic Exercise Activity 14: standing calf raises x3 (toes in, neutral, toes out) Activity 14 Comment: 15x ea Therapeutic Exercise Activity 15: standing hip abd Activity 15 Comment: 10x ea Soft Tissue Mobilization Location: L gastroc Body Position: Prone Comments: STM Home Exercise Program: Progressed home exercise program Assessment Skilled physical therapy interventions utilized to improve patient?s impairments and work towards established goals. Patient response to treatment: Patient completed session with no change in pain level. Progressed hip strengthening this date, patient was challenged with glut med exercises. Patient presents with balance deficits and can benefit from PT to address deficits. Patient will benefit from continued physical therapy to progress LE strength The rationale for today?s treatment was explained to the patient. Verbal cues were provided for correct form with all exercises. Advised patient to continue with Home Exercise Program (HEP). Goals General/Ortho Patient will be independent with HEP. (Progressing) Start: 10/31/23 Expected End: 11/29/23 Patient will report decreased pain at no more than 4/10 in L foot/ankle to be able to improve participation in functional activities. (Progressing) Start: 10/31/23 Expected End: 11/29/23 Patient will increase strength in gross hip to at least 4+/5 and specifically L hip flexion to 4/5 to be able to improve distal stability and improve safety in functional activities. (Progressing) Start: 10/31/23 Expected End: 11/29/23 Gait: Patient will demonstrate ability to appropriately bear weight on both lower extremities in stance. (Progressing) Start: 10/31/23 Expected End: 11/29/23 Balance: Patient will improve SLS to to >20 sec to improve safety with transfers. (Progressing) Start: 10/31/23 Expected End: 11/29/23 Functional Outcome Measure: Patient will improve FAAM to no less than 85% ability (Not Addressed) Start: 10/31/23 Expected End: 11/29/23 Plan Plan for next session: progress LE strengthening Time Entry Total Treatment Time Start Time: 832 Stop Time: 902 Time Calculation (min): 30 min PT Therapeutic Procedures Time Entry Therapeutic Exercise Time Entry: 15 Manual Therapy Time Entry: 15 Cherelle Valerio PTA [facility] Progress Noteon 11-26-2023 Progress Note [facility] AT [facility] [address] [place] [address] [place] [address] Dept: [phone] Dept PHYSICAL THERAPY TREATMENT Patient Name: Petar Alcocer : 1975 Date of Service: 11/26/2023 Referring Provider: Sabas Reyes DPM Visit #: 5 Diagnosis: Plantar fascial fibromatosis Mechanism of injury: 05/18/23 operation: 1. 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 Implantation of nerve of a branch of the common peroneal nerve into the peroneal muscle belly left lower leg 3. Neuroplasty dorsal left foot of the deep peroneal nerve Release of anterior compartment above the fibular head Neuroma removal off of fibular nerve LLE Extensor retinaculum release off of deep peroneal nerve Patient Preferences: Star Precautions/Red Flags: Yes medical precautions: bipolar disorder, Hx of heart attack, PTSD, CVA Adhesive allergy: no taping, wound on plantar surface of L foot, tinea pedis Subjective 07/15. I sent my splint to the wrong place, so I just ordered it again. Compliance with HEP: Yes Objective Objective measurements not taken today. Treatment Therapeutic Exercise Therapeutic Exercise Activity 11: balance- airex Activity 11 Comment: 1) WBOS 1', 2) NBOS-1' 3) mod tandem R/L 1' ea Therapeutic Exercise Activity 12: slant board stretch- gastroc and soleus Activity 12 Comment: 2x30 ea Therapeutic Exercise Activity 14: standing calf raises x3 (toes in, neutral, toes out) Activity 14 Comment: 10x ea Therapeutic Exercise Activity 15: sidesteps Activity 15 Comment: 25'x1 Soft Tissue Mobilization Location: L gastroc Body Position: Prone Location 2: B invertors/evertors Body Position 2: Supine Comments 2: [facility] Home Exercise Program: Progressed home exercise program Assessment Skilled physical therapy interventions utilized to improve patient?s impairments and work towards established goals. Patient response to treatment: progressed standing exercises this date, patient had minimal increase in low back during side steps, but it ceased when exercise stop. Progressed calf raises and issued for home exercises. Patient was challenged with balance activities on the foam this date. Patient will benefit from continued physical therapy to progress foot ankle strength The rationale for today?s treatment was explained to the patient. Verbal cues were provided for correct form with all exercises. Advised patient to continue with Home Exercise Program (HEP). Goals General/Ortho Patient will be independent with HEP. (Progressing) Start: 10/31/23 Expected End: 11/29/23 Patient will report decreased pain at no more than 4/10 in L foot/ankle to be able to improve participation in functional activities. (Progressing) Start: 10/31/23 Expected End: 11/29/23 Patient will increase strength in gross hip to at least 4+/5 and specifically L hip flexion to 4/5 to be able to improve distal stability and improve safety in functional activities. (Progressing) Start: 10/31/23 Expected End: 11/29/23 Gait: Patient will demonstrate ability to appropriately bear weight on both lower extremities in stance. (Progressing) Start: 10/31/23 Expected End: 11/29/23 Balance: Patient will improve SLS to to >20 sec to improve safety with transfers. (Not Addressed) Start: 10/31/23 Expected End: 11/29/23 Functional Outcome Measure: Patient will improve FAAM to no less than 85% ability (Not Addressed) Start: 10/31/23 Expected End: 11/29/23 Plan Plan for next session: progress foot ankle strength as patient can tolerate. Consider step taps and lateral step downs. Time Entry Total Treatment Time Start Time: 904 Stop Time: 931 Time Calculation (min): 27 min PT Therapeutic Procedures Time Entry Therapeutic Exercise Time Entry: 10 Manual Therapy Time Entry: 15 Cherelle Valerio PTA Normal [facility] Progress Noteon 11-21-2023 Progress Note [facility] [address] [facility] [address] Dept: [phone] Dept PHYSICAL THERAPY TREATMENT Patient Name: Petar Alcocer : 1975 Date of Service: 11/21/2023 Referring Provider: Sabas Reyes DPM Visit #: 4 Diagnosis: Plantar fascial fibromatosis Mechanism of injury: 05/18/23 operation: 1. 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 Implantation of nerve of a branch of the common peroneal nerve into the peroneal muscle belly left lower leg 3. Neuroplasty dorsal left foot of the deep peroneal nerve Release of anterior compartment above the fibular head Neuroma removal off of fibular nerve LLE Extensor retinaculum release off of deep peroneal nerve Patient Preferences: Star Precautions/Red Flags: Yes medical precautions: bipolar disorder, Hx of heart attack, PTSD, CVA Adhesive allergy: no taping, wound on plantar surface of L foot, tinea pedis Subjective 7.5 pain level today. Reports still worse in the AM. Reports that she Compliance with HEP: Yes Objective Objective measurements not taken today. Treatment Therapeutic Exercise Therapeutic Exercise Activity 4: inversion/ eversion Activity 4 Comment: red x 10 reps Therapeutic Exercise Activity 10: BAPS A/P, S/S, CW, CCW- bilateral Activity 10 Comment: L3- 15x ea Therapeutic Exercise Activity 13: planterflexion Activity 13 Comment: red x 10 reps Soft Tissue Mobilization Location: L gastroc Body Position: Supine IASTM Location: B evertors/invertors Body Position: Other Comments: reclined sitting Home Exercise Program: Progressed home exercise program and added band PF, Inv, Ever Assessment Skilled physical therapy interventions utilized to improve patient?s impairments and work towards established goals. Patient response to treatment: :Progressed BAPS to level 3 with fair tolerance. Continued manual intervention to B feet (L>R) with improved turgor noted post. Pain at end of session / 10. Patient would benefit from progression of HEP NV and progression into WB. Patient will benefit from continued physical therapy to Patient would benefit from progression of HEP NV and progression into WB. The rationale for today?s treatment was explained to the patient. Verbal cues were provided for correct form with all exercises. Advised patient to continue with Home Exercise Program (HEP). Goals General/Ortho Patient will be independent with HEP. (Progressing) Start: 10/31/23 Expected End: 11/29/23 Patient will report decreased pain at no more than 4/10 in L foot/ankle to be able to improve participation in functional activities. (Progressing) Start: 10/31/23 Expected End: 11/29/23 Patient will increase strength in gross hip to at least 4+/5 and specifically L hip flexion to 4/5 to be able to improve distal stability and improve safety in functional activities. (Progressing) Start: 10/31/23 Expected End: 11/29/23 Gait: Patient will demonstrate ability to appropriately bear weight on both lower extremities in stance. (Progressing) Start: 10/31/23 Expected End: 11/29/23 Balance: Patient will improve SLS to to >20 sec to improve safety with transfers. (Progressing) Start: 10/31/23 Expected End: 11/29/23 Functional Outcome Measure: Patient will improve FAAM to no less than 85% ability (Progressing) Start: 10/31/23 Expected End: 11/29/23 Plan Plan for next session: Patient would benefit from progression of HEP NV and progression into WB. Time Entry Total Treatment Time Start Time: 0900 Stop Time: 929 Time Calculation (min): 30 min PT Therapeutic Procedures Time Entry Therapeutic Exercise Time Entry: 10 Manual Therapy Time Entry: 20 Linda Randle, PT, DPT, NCS Normal [facility] Progress Noteon 11-19-2023 Progress Note [facility] [address] [facility] [address] Dept: [phone] Dept PHYSICAL THERAPY TREATMENT Patient Name: Petar Alcocer : 1975 Date of Service: 11/19/2023 Referring Provider: Sabas Reyes DPM Visit #: 3 Diagnosis: Plantar fascial fibromatosis Mechanism of injury: 05/18/23 operation: 1. 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 Implantation of nerve of a branch of the common peroneal nerve into the peroneal muscle belly left lower leg 3. Neuroplasty dorsal left foot of the deep peroneal nerve Release of anterior compartment above the fibular head Neuroma removal off of fibular nerve LLE Extensor retinaculum release off of deep peroneal nerve Patient Preferences: Star Precautions/Red Flags: Yes medical precautions: bipolar disorder, Hx of heart attack, PTSD, CVA Adhesive allergy: no taping, wound on plantar surface of L foot, tinea pedis Subjective 7.5/10. I order the splint, and I am waiting on that to come. Compliance with HEP: Yes Objective Objective measurements not taken today. Treatment Therapeutic Exercise Therapeutic Exercise Activity 10: BAPS A/P, S/S, CW, CCW- bilateral Activity 10 Comment: L2- 10x ea Therapeutic Exercise Activity 11: balance- firm surface Activity 11 Comment: 1) WBOS 1', 2) NBOS-1' 3) mod tandem R/L 1' ea Therapeutic Exercise Activity 12: slant board stretch- gastroc and soleus Activity 12 Comment: 2x30 ea Soft Tissue Mobilization Location: L gastroc Body Position: Prone Home Exercise Program: Deferred Assessment Skilled physical therapy interventions utilized to improve patient?s impairments and work towards established goals. Patient response to treatment: Progressed foot ankle strengthening exercises this date. Patient was challenged with BAPS board. Patient completed balance activities with no change in pain level. Patient will benefit from continued physical therapy to progress foot/ankle strength The rationale for today?s treatment was explained to the patient. Verbal cues were provided for correct form with all exercises. Advised patient to continue with Home Exercise Program (HEP). Goals General/Ortho Patient will be independent with HEP. (Progressing) Start: 10/31/23 Expected End: 11/29/23 Patient will report decreased pain at no more than 4/10 in L foot/ankle to be able to improve participation in functional activities. (Progressing) Start: 10/31/23 Expected End: 11/29/23 Patient will increase strength in gross hip to at least 4+/5 and specifically L hip flexion to 4/5 to be able to improve distal stability and improve safety in functional activities. (Progressing) Start: 10/31/23 Expected End: 11/29/23 Gait: Patient will demonstrate ability to appropriately bear weight on both lower extremities in stance. (Progressing) Start: 10/31/23 Expected End: 11/29/23 Balance: Patient will improve SLS to to >20 sec to improve safety with transfers. (Progressing) Start: 10/31/23 Expected End: 11/29/23 Functional Outcome Measure: Patient will improve FAAM to no less than 85% ability (Not Addressed) Start: 10/31/23 Expected End: 11/29/23 Plan Plan for next session: progress foot/ankle strength as patient can tolerate. Progress balance activities as patient can tolerate. Time Entry Total Treatment Time Start Time: 900 Stop Time: 933 Time Calculation (min): 33 min PT Therapeutic Procedures Time Entry Therapeutic Exercise Time Entry: 20 Manual Therapy Time Entry: 10 Cherelle Valerio PTA [facility] CNPBreana 11-14-2023 CNPN Telephone ([facility]MNS2) BRITTNEY ALCOCER ([id number]) 1975 F NFR Date Time Provider Department 11/14/23 MARISOL JIMENEZ [facility] During your visit today, we recorded the following information about you: Anant, Jailene 11/14/2023 5:20 PM Signed Left detail voicemail for patient to call us back so we can schedule infusions per providers message. 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 Allergies As of Date: 11/14/2023 Noted Allergy Reaction CITALOPRAM HYDROBROMIDE 10/27/2004 10 - Anaphylaxis Comments: TACHYCARDIA MORPHINE 01/26/2005 8 - GI Upset AMOXICILLIN 10/24/2004 8 - GI Upset 14 - Other: See Comments Comments: Makes me worse ASA (SALICYLATES) 10/27/2004 4 - Hives CHOCOLATE 10/27/2004 EFFEXOR (VENLAFAXINE HCL) 10/27/2004 11 - Vomiting NAPROXEN 02/16/2006 5 - Intolerance Comments: Depression PENICILLIN G 09/08/2021 8 - GI Upset TAPE (ADHESIVE TAPE-SILICONES) 01/27/2021 14 - Other: See Comments Comments: Rash TOMATO 12/21/2020 5 - Intolerance Comments: If cooked cant tolerate them TRAMADOL 10/24/2004 8 - GI Upset TRAZODONE 08/28/2017 1 - Mental Status Change Comments: Causes hallucinations VENLAFAXINE 12/13/2015 16 - Unknown Date Reviewed: 11/14/2023 Reviewed by: Marisol Jimenez APRN.GASOLINE 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 - gabapentin (NEURONTIN) 800 mg tablet Take 1 tablet by mouth four times daily for 180 days. - mirabegron (MYRBETRIQ) 50 mg Tb24 Take 1 tablet by mouth once daily. - rimegepant (NURTEC ODT) 75 mg disintegrating tablet Take 1 tablet at onset of headache/migraine. Only take 1 tablet as single dose in 24 hour period. - ondansetron orally disintegrating (ZOFRAN ODT) 4 mg disintegrating tablet dissolve 1 tablet ON TONGUE every 8 hours if needed for nausea OR vomiting - lansoprazole (PREVACID) 30 mg capsule Take 1 capsule by mouth two times a day. - loratadine (CLARITIN) 10 mg tablet take 1 tablet by mouth once daily - MEDICATION, NON-DATABASE Marijuana for migraines Facility-Administered Medications as of 11/14/2023 - onabotulinum toxin type A 200 Units injection (BOTOX) Problem List As Of Date 11/14/2023 Noted Resolved Supervision of other normal [Z34.80] 01/26/2005 01/06/2016 CELLULITIS FINGER,PARONYCHIA/ONYCH IA [L03.019] 12/12/2005 01/06/2016 Viral warts, unspecified [B07.9] 12/12/2005 01/06/2016 VISUAL LOSS, ONE EYE NOS [H54.60] 09/17/2006 Pain in joint, lower leg [M25.569] 09/08/2011 01/06/2016 Pain in joint, pelvic region and thigh [M25.559]09/08/2011 01/06/2016 Carpal tunnel syndrome, left [G56.02] 05/09/2012 Right knee pain [M25.561] 06/30/2014 Diverticulosis of intestine without bleeding [K*11/10/2015 Amenorrhea, unspecified [N91.2] 07/20/2015 Leiomyoma of uterus, unspecified [D25.9] 10/07/2015 Major depressive disorder, single episode, unsp*06/15/2015 Pain in right shoulder [M25.511] 10/12/2015 Unspecified asthma, uncomplicated [J45.909] 06/15/2015 Gastro-esophageal reflux disease without esopha*12/13/2015 Anxiety [F41.9] 12/13/2015 Left ovarian cyst [N83.202] 12/13/2015 History of drug abuse [F19.11] 12/13/2015 History of migraine [Z86.69] 12/13/2015 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] 12/13/2015 Kidney stone [N20.0] 12/13/2015 History of seizure [Z87.898] 12/13/2015 History of renal cell cancer [Z85.528] 01/06/2016 Renal neoplasm [D49.519] 04/27/2016 Occipital neuralgia of right side [M54.81] 08/15/2016 Eustachian tube dysfunction, bilateral [H69.93] 10/11/2016 Lumbar radiculopathy [M54.16] 10/11/2016 Leg weakness, bilateral [R29.898] 10/11/2016 Chronic bilateral low back pain with bilateral *10/11/2016 Chronic right-sided thoracic back pain [M54.6, *10/11/2016 Paresthesia of bilateral legs [R20.2] 10/11/2016 Osteoarthritis of spine with radiculopathy, lum*12/20/2016 Obesity, Class III, BMI >= 40 (morbid obesity) *01/12/2017 Migraine with aura, not intractable, without st*01/12/2017 Intervertebral disc disorder with radiculopathy* 8 Jaw pain [R68.84] 03/23/2017 Low back pain with left-sided sciatica [M54.42] 03/23/2017 Low back pain with right-sided sciatica [M54.41]03/23/2017 Other intervertebral disc degeneration, thoraci*03/23/2017 Pleurodynia [R07.81] 03/23/2017 Syncope and collapse [R55] 03/23/2017 Chronic migraine without aura, intractable, wit*04/10/2017 Intractable chronic post-traumatic headache [G4*04/10/2017 Chronic pain syndrome [G89.4] 04/10/2017 Obesity, Class II, BMI 35-39.9 [E66.812] 12/19/2017 Auditory hallucination [R44.0] 12/10/2017 Hypertriglyceridemia [E78.1] 03/25/2018 Hyperlipidemia [E78.5] 07/02/2018 Restless leg [G25.81] 07/02/2018 (more content not included)... Normal [facility] Telephone (NIQ) BRITTNEY ALCOCER ([id number]) 1975 F NFR Date Time Provider Department 11/14/23 YENNY OSMAN NIBrie During your visit today, we recorded the following information about you: Germaine Sutherland 11/14/2023 10:53 AM Signed Patient is calling in regards to possibly getting infusions again as her headaches are starting to return. Jailene Ny 11/14/2023 12:11 PM Signed Patient scheduled for triage appt Allergies As of Date: 11/14/2023 Noted Allergy Reaction CITALOPRAM HYDROBROMIDE 10/27/2004 10 - Anaphylaxis Comments: TACHYCARDIA MORPHINE 01/26/2005 8 - GI Upset AMOXICILLIN 10/24/2004 8 - GI Upset 14 - Other: See Comments Comments: Makes me worse ASA (SALICYLATES) 10/27/2004 4 - Hives CHOCOLATE 10/27/2004 EFFEXOR (VENLAFAXINE HCL) 10/27/2004 11 - Vomiting NAPROXEN 02/16/2006 5 - Intolerance Comments: Depression PENICILLIN G 09/08/2021 8 - GI Upset TAPE (ADHESIVE TAPE-SILICONES) 01/27/2021 14 - Other: See Comments Comments: Rash TOMATO 12/21/2020 5 - Intolerance Comments: If cooked cant tolerate them TRAMADOL 10/24/2004 8 - GI Upset TRAZODONE 08/28/2017 1 - Mental Status Change Comments: Causes hallucinations VENLAFAXINE 12/13/2015 16 - Unknown Date Reviewed: 10/04/2023 Reviewed by: Jamia Lozada MA - Fully Assessed Reason for Visit: Infusion [464] Prescriptions as of 11/14/2023 - simvastatin (ZOCOR) 20 mg tablet Take 2 tablets by mouth daily at bedtime. - gabapentin (NEURONTIN) 800 mg tablet Take 1 tablet by mouth four times daily for 180 days. - mirabegron (MYRBETRIQ) 50 mg Tb24 Take 1 tablet by mouth once daily. - rimegepant (NURTEC ODT) 75 mg disintegrating tablet Take 1 tablet at onset of headache/migraine. Only take 1 tablet as single dose in 24 hour period. - ondansetron orally disintegrating (ZOFRAN ODT) 4 mg disintegrating tablet dissolve 1 tablet ON TONGUE every 8 hours if needed for nausea OR vomiting - lansoprazole (PREVACID) 30 mg capsule Take 1 capsule by mouth two times a day. - loratadine (CLARITIN) 10 mg tablet take 1 tablet by mouth once daily - MEDICATION, NON-DATABASE Marijuana for migraines Facility-Administered Medications as of 11/14/2023 - onabotulinum toxin type A 200 Units injection (BOTOX) Problem List As Of Date 11/14/2023 Noted Resolved Supervision of other normal [Z34.80] 01/26/2005 01/06/2016 CELLULITIS FINGER,PARONYCHIA/ONYCH IA [L03.019] 12/12/2005 01/06/2016 Viral warts, unspecified [B07.9] 12/12/2005 01/06/2016 VISUAL LOSS, ONE EYE NOS [H54.60] 09/17/2006 Pain in joint, lower leg [M25.569] 09/08/2011 01/06/2016 Pain in joint, pelvic region and thigh [M25.559]09/08/2011 01/06/2016 Carpal tunnel syndrome, left [G56.02] 05/09/2012 Right knee pain [M25.561] 06/30/2014 Diverticulosis of intestine without bleeding [K*11/10/2015 Amenorrhea, unspecified [N91.2] 07/20/2015 Leiomyoma of uterus, unspecified [D25.9] 10/07/2015 Major depressive disorder, single episode, unsp*06/15/2015 Pain in right shoulder [M25.511] 10/12/2015 Unspecified asthma, uncomplicated [J45.909] 06/15/2015 Gastro-esophageal reflux disease without esopha*12/13/2015 Anxiety [F41.9] 12/13/2015 Left ovarian cyst [N83.202] 12/13/2015 History of drug abuse [F19.11] 12/13/2015 History of migraine [Z86.69] 12/13/2015 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] 12/13/2015 Kidney stone [N20.0] 12/13/2015 History of seizure [Z87.898] 12/13/2015 History of renal cell cancer [Z85.528] 01/06/2016 Renal neoplasm [D49.519] 04/27/2016 Occipital neuralgia of right side [M54.81] 08/15/2016 Eustachian tube dysfunction, bilateral [H69.93] 10/11/2016 Lumbar radiculopathy [M54.16] 10/11/2016 Leg weakness, bilateral [R29.898] 10/11/2016 Chronic bilateral low back pain with bilateral *10/11/2016 Chronic right-sided thoracic back pain [M54.6, *10/11/2016 Paresthesia of bilateral legs [R20.2] 10/11/2016 Osteoarthritis of spine with radiculopathy, lum*12/20/2016 Obesity, Class III, BMI >= 40 (morbid obesity) *01/12/2017 Migraine with aura, not intractable, without st*01/12/2017 Intervertebral disc disorder with radiculopathy* 8 Jaw pain [R68.84] 03/23/2017 Low back pain with left-sided sciatica [M54.42] 03/23/2017 Low back pain with right-sided sciatica [M54.41]03/23/2017 Other intervertebral disc degeneration, thoraci*03/23/2017 Pleurodynia [R07.81] 03/23/2017 Syncope and collapse [R55] 03/23/2017 Chronic migraine without aura, intractable, wit*04/10/2017 Intractable chronic post-traumatic headache [G4*04/10/2017 Chronic pain syndrome [G89.4] 04/10/2017 Obesity, Class II, BMI 35-39.9 [E66.812] 12/19/2017 Auditory hallucination [R44.0] 12/10/2017 Hypertriglyceridemia [E78.1] 03/25/2018 Hyperlipidemia [E78.5] 07/02/2018 Restless leg [G25.81] 07/02/2018 Obstructive sleep apnea syndrome [G47.33] 08/11/2016 Viral wart o (more content not included)... Normal [facility] Progress Noteon 11-14-2023 Progress Note [facility] [address] [place] [address] [place] [address] Dept: [phone] Dept PHYSICAL THERAPY TREATMENT Patient Name: Petar Alcocer : 1975 Date of Service: 11/14/2023 Referring Provider: Sabas Reyes DPM Visit #: 2 Diagnosis: Plantar fascial fibromatosis Mechanism of injury: 05/18/23 operation: 1. 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 Implantation of nerve of a branch of the common peroneal nerve into the peroneal muscle belly left lower leg 3. Neuroplasty dorsal left foot of the deep peroneal nerve Release of anterior compartment above the fibular head Neuroma removal off of fibular nerve LLE Extensor retinaculum release off of deep peroneal nerve Patient Preferences: Star Precautions/Red Flags: Yes medical precautions: bipolar disorder, Hx of heart attack, PTSD, CVA Adhesive allergy: no taping, wound on plantar surface of L foot, tinea pedis Subjective /10. My heel hurts and its constant. The pain is more of stabbing- pins. Compliance with HEP: Yes Objective Objective measurements not taken today. Treatment Therapeutic Exercise Therapeutic Exercise Activity 6: ana mlo pepperes Activity 6 Comment: 5x Therapeutic Exercise Activity 7: SLR Activity 7 Comment: 10x Therapeutic Exercise Activity 8: side lying hip abd Activity 8 Comment: 10x Therapeutic Exercise Activity 9: prone hip ext Activity 9 Comment: 10x Soft Tissue Mobilization Location: L gastroc Body Position: Prone Home Exercise Program: Progressed home exercise program Assessment Skilled physical therapy interventions utilized to improve patient?s impairments and work towards established goals. Patient response to treatment: Patient completed session with no increase in pain level. Patient was challenged with hip strengthening exercises, issued for home program. Patient had reduced tugor following STM. Patient will benefit from continued physical therapy to progress foot ankle strength The rationale for today?s treatment was explained to the patient. Verbal cues were provided for correct form with all exercises. Advised patient to continue with Home Exercise Program (HEP). Goals General/Ortho Patient will be independent with HEP. (Progressing) Start: 10/31/23 Expected End: 11/29/23 Patient will report decreased pain at no more than 4/10 in L foot/ankle to be able to improve participation in functional activities. (Progressing) Start: 10/31/23 Expected End: 11/29/23 Patient will increase strength in gross hip to at least 4+/5 and specifically L hip flexion to 4/5 to be able to improve distal stability and improve safety in functional activities. (Progressing) Start: 10/31/23 Expected End: 11/29/23 Gait: Patient will demonstrate ability to appropriately bear weight on both lower extremities in stance. (Progressing) Start: 10/31/23 Expected End: 11/29/23 Balance: Patient will improve SLS to to >20 sec to improve safety with transfers. (Progressing) Start: 10/31/23 Expected End: 11/29/23 Functional Outcome Measure: Patient will improve FAAM to no less than 85% ability (Not Addressed) Start: 10/31/23 Expected End: 11/29/23 Plan Plan for next session: progress LE strengthening as patient can tolerate. Add BAPS. Time Entry Total Treatment Time Start Time: 931 Stop Time: 1000 Time Calculation (min): 28 min PT Therapeutic Procedures Time Entry Therapeutic Exercise Time Entry: 18 Manual Therapy Time Entry: 10 Cherelle Valerio PTA Normal [facility] Emergency Department Summary on 11-08-2023 Emergency Department Summary [facility] Medical Records Department [address] [place] [address] Emergency Department Summary 11/08/23 MR#: [id number] Acct: [id number] Name: BRITTNEY ALCOCER Rep #: [id number] : 1975 48 From: Elmer Nelson MD PCP: GILA Baptiste Status:DEP ER Location: ED HPI History of Present Illness Chief Complaint: Wound Check Narrative Narrative: Patient is a 48-year-old female with history of CAD, [place], who presents to the emergency department with 1 day of 2 splinters to the left index finger. Patient states that she was helping someone move, and she was grabbing a box bring with wood that was splintering and stuck into her finger. She states the pain is ongoing, she could not get them out and she is here for evaluation. Denies any specific redness. [facility] Medical History Carpal tunnel syndrome Depression Diverticulosis Heart attack History of kidney cancer Leiomyoma Right shoulder pain Home Medications ???Medication ???Instructions ???Recorded ???Last Taken ???Type loratadine 10 mg tablet 10 mg PO DAILY 08/27/18 Unknown History omeprazole 40 mg capsule,delayed 40 mg PO DAILY 08/27/18 09/03/18 10:00 History release pramipexole 0.5 mg tablet 0.5 mg PO QHS restless legs 08/27/18 Unknown History albuterol sulfate 90 mcg/actuation 1 - 2 puff inhalation Q4H PRN PRN 09/02/18 12/03/18 08:00 History aerosol inhaler Sob /Or Wheezing 1 - 2 PUFF ondansetron 4 mg disintegrating 8 mg PO Q12H PRN PRN Nausea 09/02/18 Unknown History tablet acetaminophen 500 mg tablet 500 mg PO PRN PRN Pain Or Fever 12/02/18 Unknown History gabapentin 800 mg tablet 800 mg PO 4X/DAY 12/02/18 12/03/18 08:00 History 800 MG ondansetron 4 mg disintegrating 4 mg PO Q8H PRN PRN Nausea #10 tabs 02/21/22 Unknown Rx tablet Allergy/AdvReac Type Severity Reaction Status Date / Time adhesive tape Allergy Rash Verified 11/08/23 19:41 amoxicillin (Amoxicillin) Allergy Anaphylaxis Verified 11/08/23 19:41 aspirin (ASA) Allergy Other Verified 11/08/23 19:41 chocolate flavor Allergy Anaphylaxis Verified 11/08/23 19:41 citalopram hydrobromide Allergy Anaphylaxis Verified 11/08/23 19:41 (From Celexa) naproxen (From Naprosyn) Allergy Anaphylaxis Verified 11/08/23 19:41 tomato (Tomato) Allergy Rash Verified 11/08/23 19:41 venlafaxine HCl (From Allergy Anaphylaxis Verified 11/08/23 19:41 Effexor) acetaminophen (From AdvReac Other Verified 11/08/23 19:41 Tylenol-Codeine #3) codeine phosphate (From AdvReac Other Verified 11/08/23 19:41 Tylenol-Codeine #3) milk AdvReac Nausea Verified 11/08/23 19:41 morphine AdvReac Unknown Verified 11/08/23 19:41 tramadol AdvReac Other Verified 11/08/23 19:41 Surgical History history excision wart third finger right hand ( 09/03/18) History of hysterectomy History of partial nephrectomy S/P section S/P excision of lipoma S/P laparoscopic cholecystectomy s/p left leg surgery Status post carpal tunnel release Social History (Updated 02/21/22 @ 15:[address] Nuno Casas MD) household members: significant other Smoking Status: Current every day smoker tobacco type: cigarettes alcohol intake: current alcohol intake frequency: a few times a week substance use type: marijuana ROS ROS ED ROS Narrative Constitutional: Negative for fever, chills, weight loss, weakness Eyes: Negative for vision loss, vision change, double vision ENT: Negative for any sore throat, ear pain, congestion Cardiovascular: Negative for any chest pain, tightness, palpitations Respiratory: Negative for any cough, sputum production, hemoptysis, dyspnea, dyspnea on exertion, orthopnea Gastrointestinal: Negative for any abdominal pain, nausea, vomiting, diarrhea, constipation, blood in stool, blood in vomit : Negative for any urinary frequency, dysuria, retention, blood in urine Muscle skeletal: Negative for any neck pain, back pain Neurological: Negative for any headache, syncope, dizziness Skin: Negative for any rashes, itching, abrasions, lacerations. Positive for splinter to the left index finger x 2 Psychiatric: Negative for any depression, anxiety, stress, suicidal ideation, homicidal ideation Hematologic: Negative for any excessive bruising, easy bleeding EXAM Physical Exam Narrative Exam Narrative: Vital signs reviewed. Extremities: No peripheral edema, no signs of gross trauma or deformity. Active full range of motion of all extremities. Patient has 2 splinters to the palmar aspect of the left index finger, these are just inferior to the PIP joint. They are roughly 0.5 cm in length. One is thicker than the other. Mostly superficial. There is no evidence of any significant redness o (more content not included)... Normal [facility] Progress Noteon 10-31-2023 Progress Note [facility] [address] [facility] [place] [address] Dept: [phone] Dept PHYSICAL THERAPY EVALUATION Patient Name: Petar Alcocer : 1975 Date of Service: 10/31/2023 Referring Provider: Sabas Reyes DPM Visit #: 1 Diagnosis: Plantar fascial fibromatosis Pain in left foot Neuralgia and neuritis, unspecified General Information Mechanism of injury: 05/18/23 operation: 1. 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 Implantation of nerve of a branch of the common peroneal nerve into the peroneal muscle belly left lower leg 3. Neuroplasty dorsal left foot of the deep peroneal nerve Release of anterior compartment above the fibular head Neuroma removal off of fibular nerve LLE Extensor retinaculum release off of deep peroneal nerve Patient Preferences: Petar Precautions/Red Flags: Yes medical precautions: bipolar disorder, Hx of heart attack, PTSD, CVA Adhesive allergy: no taping, wound on plantar surface of L foot, tinea pedis Fall Risk: Yes and reports that she gets up too quickly and then she falls; last time she fell was about a week ago. 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 PSHX: Petar has no past surgical history on file. Have you experienced any anxiety or depression?: No Have you experienced thoughts of self-harm or suicidal thoughts?: No Social Determinates of Health Reviewed: Yes Physician follow-up appointment?: No Subjective Chief Complaint: Since surgery, reports B pain in R>L. Reports that she feels like her heels are on fire and that there's a knife stabbing into her heels. Pain: Current: 09/14 Best: 09/14 Worst: 11/14 Symptoms Aggravated by: extended standing, stagnant ankles, donning shoes/socks, steps Symptoms Relieved by: ice bath, cold water Prior Level of Function: independent Current Level of Function: ankles sitting still for long periods of time, must move ankles constantly. Denies any issues with walking for extended periods. Able to stand no more than an hour without pain. Reports that she must lean on L side when standing for extended periods. Reports that if standing for extended times her back will start to hurt and her knees will give out. Reports that she struggles with steps due to knee pain; going down steps her heel is an aggravating factor; Alternates feet going up and down steps. L foot is challenging to don socks and shoes due to pain on dorsal aspect of foot. Reports must sleep at night with her feet dorsiflexed. Patient?s Stated Goal: reduce ankle pain and improve function Outcome Measures Foot and Ankle Ability Measure (FAAM): 62/84 =73.8% ability Objective ANKLE Leg length: L longer than R Observation: wound on plantar surface of foot, leans to LLE in stance Gait: Antalgic L Transfers: WNL Hip & Knee AROM: WFL Date Recorded: 10/31/23 Ankle ROM Right Left AROM AROM Ankle Dorsiflexion (DF) WNL WNL Ankle Plantarflexion (PF) WNL WNL Inversion WNL WNL Eversion WNL WNL Lower Extremity Strength Right Left Hip Flexion 4 p! 3+ Hip Abduction 5 4- p! Hip Extension 4 p! 4 p! Hip External Rotation (ER) 5 5 Hip Internal Rotation (IR) 5 5 Knee Extension 5 5 Knee Flexion 5 5 Ankle Dorsiflexion (DF) 5 5 Ankle Plantarflexion (PF) 5 5 Inversion 4 p! 5 Eversion 5 5 Great toe: L: 5/5; R: 5/5 Other digits: L: 5/5; R: 5/5 Single Leg Stance (SLS) Balance R= DNT seconds, L= DNT seconds. Joint mobility: DNT Palpation: TTP L calcaneus, L medial and lateral malleolus, evertors, invertors, gastroc; moderate turgor L gastroc Flexibility: Gastroc limited moderately Assessment Petar is a 48 y.o. patient with chief complaint of heel pain and lower leg pain, who presents with signs and symptoms consistent with plantar fasciitis. The patient had a surgery done on the L foot that seems to exacerbate and/or contribute to her plantar fasciitis. Weakness in hip abductors/gluts may also be a contributing factor to the patient's condition. The patient shows pain with palpation most areas of the left leg. STM to the gastroc did relieve some pain for the patient. The patient would benefit from skilled physical therapy to address decreased strength, decreased range of motion, pain, soft tissue impairment, impaired gait, and impaired functional activities. Evaluation complexity is moderate secondary to: patient has 3 or more personal factors and/or comorbidities that will affect plan of care, therapy will be addressing 3 or more elements, and cli (more content not included)... Normal [facility] 10-05-[address] [facility] Telephone (UCWSTR) BRITTNEY ALCOCER ([id number]) 1975 F NFR Date Time Provider Department 10/05/23 KATHERINE MA [facility] During your visit today, we recorded the following information about you: Allergies As of Date: 10/05/2023 Noted Allergy Reaction CITALOPRAM HYDROBROMIDE 10/27/2004 10 - Anaphylaxis Comments: TACHYCARDIA MORPHINE 01/26/2005 8 - GI Upset AMOXICILLIN 10/24/2004 8 - GI Upset 14 - Other: See Comments Comments: Makes me worse ASA (SALICYLATES) 10/27/2004 4 - Hives CHOCOLATE 10/27/2004 EFFEXOR (VENLAFAXINE HCL) 10/27/2004 11 - Vomiting NAPROXEN 02/16/2006 5 - Intolerance Comments: Depression PENICILLIN G 09/08/2021 8 - GI Upset TAPE (ADHESIVE TAPE-SILICONES) 01/27/2021 14 - Other: See Comments Comments: Rash TOMATO 12/21/2020 5 - Intolerance Comments: If cooked cant tolerate them TRAMADOL 10/24/2004 8 - GI Upset TRAZODONE 08/28/2017 1 - Mental Status Change Comments: Causes hallucinations VENLAFAXINE 12/13/2015 16 - Unknown Date Reviewed: 10/04/2023 Reviewed by: Jamia Lozada MA - Fully Assessed Prescriptions as of 12/03/2023 - lansoprazole (PREVACID) 30 mg capsule Take 1 capsule by mouth two times a day. - simvastatin (ZOCOR) 20 mg tablet Take 2 tablets by mouth daily at bedtime. - gabapentin (NEURONTIN) 800 mg tablet Take 1 tablet by mouth four times daily for 180 days. - mirabegron (MYRBETRIQ) 50 mg Tb24 Take 1 tablet by mouth once daily. - rimegepant (NURTEC ODT) 75 mg disintegrating tablet Take 1 tablet at onset of headache/migraine. Only take 1 tablet as single dose in 24 hour period. - ondansetron orally disintegrating (ZOFRAN ODT) 4 mg disintegrating tablet dissolve 1 tablet ON TONGUE every 8 hours if needed for nausea OR vomiting - loratadine (CLARITIN) 10 mg tablet take 1 tablet by mouth once daily - MEDICATION, NON-DATABASE Marijuana for migraines Facility-Administered Medications as of 12/03/2023 - onabotulinum toxin type A 200 Units injection (BOTOX) Problem List As Of Date 10/05/2023 Noted Resolved Supervision of other normal [Z34.80] 01/26/2005 01/06/2016 CELLULITIS FINGER,PARONYCHIA/ONYCH IA [L03.019] 12/12/2005 01/06/2016 Viral warts, unspecified [B07.9] 12/12/2005 01/06/2016 VISUAL LOSS, ONE EYE NOS [H54.60] 09/17/2006 Pain in joint, lower leg [M25.569] 09/08/2011 01/06/2016 Pain in joint, pelvic region and thigh [M25.559]09/08/2011 01/06/2016 Carpal tunnel syndrome, left [G56.02] 05/09/2012 Right knee pain [M25.561] 06/30/2014 Diverticulosis of intestine without bleeding [K*11/10/2015 Amenorrhea, unspecified [N91.2] 07/20/2015 Leiomyoma of uterus, unspecified [D25.9] 10/07/2015 Major depressive disorder, single episode, unsp*06/15/2015 Pain in right shoulder [M25.511] 10/12/2015 Unspecified asthma, uncomplicated [J45.909] 06/15/2015 Gastro-esophageal reflux disease without esopha*12/13/2015 Anxiety [F41.9] 12/13/2015 Left ovarian cyst [N83.202] 12/13/2015 History of drug abuse [F19.11] 12/13/2015 History of migraine [Z86.69] 12/13/2015 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] 12/13/2015 Kidney stone [N20.0] 12/13/2015 History of seizure [Z87.898] 12/13/2015 History of renal cell cancer [Z85.528] 01/06/2016 Renal neoplasm [D49.519] 04/27/2016 Occipital neuralgia of right side [M54.81] 08/15/2016 Eustachian tube dysfunction, bilateral [H69.93] 10/11/2016 Lumbar radiculopathy [M54.16] 10/11/2016 Leg weakness, bilateral [R29.898] 10/11/2016 Chronic bilateral low back pain with bilateral *10/11/2016 Chronic right-sided thoracic back pain [M54.6, *10/11/2016 Paresthesia of bilateral legs [R20.2] 10/11/2016 Osteoarthritis of spine with radiculopathy, lum*12/20/2016 Obesity, Class III, BMI >= 40 (morbid obesity) *01/12/2017 Migraine with aura, not intractable, without st*01/12/2017 Intervertebral disc disorder with radiculopathy* 8 Jaw pain [R68.84] 03/23/2017 Low back pain with left-sided sciatica [M54.42] 03/23/2017 Low back pain with right-sided sciatica [M54.41]03/23/2017 Other intervertebral disc degeneration, thoraci*03/23/2017 Pleurodynia [R07.81] 03/23/2017 Syncope and collapse [R55] 03/23/2017 Chronic migraine without aura, intractable, wit*04/10/2017 Intractable chronic post-traumatic headache [G4*04/10/2017 Chronic pain syndrome [G89.4] 04/10/2017 Obesity, Class II, BMI 35-39.9 [E66.812] 12/19/2017 Auditory hallucination [R44.0] 12/10/2017 Hypertriglyceridemia [E78.1] 03/25/2018 Hyperlipidemia [E78.5] 07/02/2018 Restless leg [G25.81] 07/02/2018 Obstructive sleep apnea syndrome [G47.33] 08/11/2016 Viral wart on finger [B07.9] 04/04/2019 PMB (postmenopausal bleeding) [N95.0] 04/22/2019 Environmental allergies [Z91.09] 07/08/2019 Hyperopia of both eyes [H52.03] 04/08/2019 Combined forms of age-related cataract of both *04/08/2019 Migraine without aura, not refract (more content not included)... Normal [facility] BRITTNEY ALCOCER ([id number]) 1975 F NFR Date Time Provider Department 10/05/23 LALY MAGALLON ELVIRA During your visit today, we recorded the following information about you: Cyn Benjamin MA 10/05/2023 5:07 PM Signed ----- Message from Laly Magallon APRN.GASOLINE LOCOMOTIVE CRANE OPERATOR sent at 10/05/2023 12:53 PM EDT ----- Please advise patient the swab was negative for herpes. Laly Magallon APRN.Cyn Loera MA 10/05/2023 5:09 PM Signed Patient notified of results, verbalized understanding of instructions given. Cyn Benjamin MA Allergies As of Date: 10/05/2023 Noted Allergy Reaction CITALOPRAM HYDROBROMIDE 10/27/2004 10 - Anaphylaxis Comments: TACHYCARDIA MORPHINE 01/26/2005 8 - GI Upset AMOXICILLIN 10/24/2004 8 - GI Upset 14 - Other: See Comments Comments: Makes me worse ASA (SALICYLATES) 10/27/2004 4 - Hives CHOCOLATE 10/27/2004 EFFEXOR (VENLAFAXINE HCL) 10/27/2004 11 - Vomiting NAPROXEN 02/16/2006 5 - Intolerance Comments: Depression PENICILLIN G 09/08/2021 8 - GI Upset TAPE (ADHESIVE TAPE-SILICONES) 01/27/2021 14 - Other: See Comments Comments: Rash TOMATO 12/21/2020 5 - Intolerance Comments: If cooked cant tolerate them TRAMADOL 10/24/2004 8 - GI Upset TRAZODONE 08/28/2017 1 - Mental Status Change Comments: Causes hallucinations VENLAFAXINE 12/13/2015 16 - Unknown Date Reviewed: 10/04/2023 Reviewed by: Jamia Lozada MA - Fully Assessed Prescriptions as of 10/05/2023 - mirabegron (MYRBETRIQ) 50 mg Tb24 Take 1 tablet by mouth once daily. - rimegepant (NURTEC ODT) 75 mg disintegrating tablet Take 1 tablet at onset of headache/migraine. Only take 1 tablet as single dose in 24 hour period. - ondansetron orally disintegrating (ZOFRAN ODT) 4 mg disintegrating tablet dissolve 1 tablet ON TONGUE every 8 hours if needed for nausea OR vomiting - lansoprazole (PREVACID) 30 mg capsule Take 1 capsule by mouth two times a day. - simvastatin (ZOCOR) 20 mg tablet Take 2 tablets by mouth daily at bedtime. - loratadine (CLARITIN) 10 mg tablet take 1 tablet by mouth once daily - gabapentin (NEURONTIN) 800 mg tablet Take 1 tablet by mouth four times daily for 180 days. - MEDICATION, NON-DATABASE Marijuana for migraines Facility-Administered Medications as of 10/05/2023 - lidocaine (PF) 10 mg/mL (1 %) 1-2 mg injection (XYLOCAINE) - lactated ringers iv infusion - onabotulinum toxin type A 200 Units injection (BOTOX) Problem List As Of Date 10/05/2023 Noted Resolved Supervision of other normal [Z34.80] 01/26/2005 01/06/2016 CELLULITIS FINGER,PARONYCHIA/ONYCH IA [L03.019] 12/12/2005 01/06/2016 Viral warts, unspecified [B07.9] 12/12/2005 01/06/2016 VISUAL LOSS, ONE EYE NOS [H54.60] 09/17/2006 Pain in joint, lower leg [M25.569] 09/08/2011 01/06/2016 Pain in joint, pelvic region and thigh [M25.559]09/08/2011 01/06/2016 Carpal tunnel syndrome, left [G56.02] 05/09/2012 Right knee pain [M25.561] 06/30/2014 Diverticulosis of intestine without bleeding [K*11/10/2015 Amenorrhea, unspecified [N91.2] 07/20/2015 Leiomyoma of uterus, unspecified [D25.9] 10/07/2015 Major depressive disorder, single episode, unsp*06/15/2015 Pain in right shoulder [M25.511] 10/12/2015 Unspecified asthma, uncomplicated [J45.909] 06/15/2015 Gastro-esophageal reflux disease without esopha*12/13/2015 Anxiety [F41.9] 12/13/2015 Left ovarian cyst [N83.202] 12/13/2015 History of drug abuse [F19.11] 12/13/2015 History of migraine [Z86.69] 12/13/2015 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] 12/13/2015 Kidney stone [N20.0] 12/13/2015 History of seizure [Z87.898] 12/13/2015 History of renal cell cancer [Z85.528] 01/06/2016 Renal neoplasm [D49.519] 04/27/2016 Occipital neuralgia of right side [M54.81] 08/15/2016 Eustachian tube dysfunction, bilateral [H69.93] 10/11/2016 Lumbar radiculopathy [M54.16] 10/11/2016 Leg weakness, bilateral [R29.898] 10/11/2016 Chronic bilateral low back pain with bilateral *10/11/2016 Chronic right-sided thoracic back pain [M54.6, *10/11/2016 Paresthesia of bilateral legs [R20.2] 10/11/2016 Osteoarthritis of spine with radiculopathy, lum*12/20/2016 Obesity, Class III, BMI >= 40 (morbid obesity) *01/12/2017 Migraine with aura, not intractable, without st*01/12/2017 Intervertebral disc disorder with radiculopathy* 8 Jaw pain [R68.84] 03/23/2017 Low back pain with left-sided sciatica [M54.42] 03/23/2017 Low back pain with right-sided sciatica [M54.41]03/23/2017 Other intervertebral disc degeneration, thoraci*03/23/2017 Pleurodynia [R07.81] 03/23/2017 Syncope and collapse [R55] 03/23/2017 Chronic migraine without aura, intractable, wit*04/10/2017 Intractable chronic post-traumatic headache [G4*04/10/2017 Chronic pain syndrome [G89.4] 04/10/2017 Obesity, Class II, BMI 35-39.9 [E66.9] 12/19/2017 Auditory godwin (more content not included)... Normal [facility] CNOVon 10-04-2023 CNOV Office Visit ([facility] ) BRITTNEY ALCOCER ([id number]) 1975 F NFR Date Time Provider Department 10/04/23 5:45 PM BANG MANDUJANO [facility] During your visit today, we recorded the following information about you: Temperature Pulse Respiration Blood pressure 96.4 degrees 65/minute 20/minute 100/70 Weight 81.1 kg Eric Cosme PA 10/04/2023 7:02 PM Signed Patient presents with: Ear Problem: Right ear issues, bleeding from ear, pain in ear, walking sideways x 2 days HPI: Feeling throbbing right ear pain today. She had blood come from the orifice a couple days ago but it was not painful then. Positive symptoms: Earache, feels off balance at times, bump on genital since yesterday, Negative symptoms: Cough, Sore throat, Sinus pressure, Nasal Congestion, Rhinorrhea, Fever, Malaise, OTC: none PAST MEDICAL HISTORY No date: Adjustment disorder with depressed mood No date: Allergic rhinitis No date: Arthritis of right knee No date: Asthma No date: Bilateral ovarian cysts 1994: Cholecystitis, unspecified Comment: Gallbladder removed No date: Chronic pain syndrome No date: Fibroids No date: Gastric ulcer, unspecified as acute or chronic, without mention of hemorrhage or perforation, with obstruction Comment: occasional bleeding No date: GERD (gastroesophageal reflux disease) No date: 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 No date: Hypertriglyceridemia No date: Hypoactive thyroid No date: Insomnia No date: Marijuana smoker Comment: helps with migraines No date: Migraine with aura, without mention of intractable migraine without mention of status migrainosus Comment: daily No date: Pelvic pain in female No date: Short-term memory loss Comment: 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 SYNDROME No date: Unspecified asthma(493.90) Comment: occasional inhaler 12/2005: Urinary calculus, unspecified Comment: Renal stones: left kidney per CT MEDICATIONS: Current Outpatient Medications Medication Sig mirabegron (MYRBETRIQ) 50 mg Tb24 Take 1 tablet by mouth once daily. rimegepant (NURTEC ODT) 75 mg disintegrating tablet Take 1 tablet at onset of headache/migraine. Only take 1 tablet as single dose in 24 hour period. ondansetron orally disintegrating (ZOFRAN ODT) 4 mg disintegrating tablet dissolve 1 tablet ON TONGUE every 8 hours if needed for nausea OR vomiting lansoprazole (PREVACID) 30 mg capsule Take 1 capsule by mouth two times a day. simvastatin (ZOCOR) 20 mg tablet Take 2 tablets by mouth daily at bedtime. loratadine (CLARITIN) 10 mg tablet take 1 tablet by mouth once daily gabapentin (NEURONTIN) 800 mg tablet Take 1 tablet by mouth four times daily for 180 days. MEDICATION, NON-DATABASE Marijuana for migraines Current Facility-Administered Medications Medication Dose Route Frequency onabotulinum toxin type A 200 Units injection (BOTOX) 200 Units OTHER q 3 MONTHS Facility-Administered Medications Ordered in Other Visits Medication Dose Route Frequency lidocaine (PF) 10 mg/mL (1 %) 1-2 mg injection (XYLOCAINE) 0.1-0.2 mL INTRADERMAL PRN lactated ringers iv infusion 30 mL/hr INTRAVENOUS CONTINUOUS ALLERGIES: ALLERGIES Allergen Reactions Citalopram Hydrobro* Anaphylaxis TACHYCARDIA Morphine GI Upset Amoxicillin GI Upset, Other: See Comments Makes me worse Asa [Salicylates] Hives Chocolate Effexor [Venlafaxin* Vomiting Naproxen Intolerance Depression Penicillin G GI Upset Tape [Adhesive Tape* Other: See Comments Rash Tomato Intolerance If cooked cant tolerate them Tramadol GI Upset Trazodone Mental Status Change Causes hallucinations Venlafaxine Unknown VITALS: BP 100/70 Pulse 65 Temp (!) 35.8 ?C (96.4 ?F) Resp 20 Wt 81.1 kg (178 lb 12.7 oz) LMP 08/19/2014 SpO2 97% BMI 37.37 kg/m? PHYSICAL EXAM: GEN: Pleasant, in no acute distress. HEENT: PERRL, EOMI, conjunctiva clear Ears: canals clear. TMs without erythema, bulge, or effusion. Sesame seed sized open comedone extracted from the base of the right ada Sinuses: non-tender frontal sinus, non-tender maxillary sinuses Throat: moist mucous membranes, no erythema, no exudate Neck: supple, no thyromegaly, no lymphadenopathy HEART: regular rate and rhythm, no murmurs LUNGS: clear to auscultation, no wheezes or crackles, no increased WOB ASSESSMENT/PLAN: 1. Otalgia, right - ICD9: 388.70, ICD10: H92.01 (primary diagnosis) 2. Open comedone - ICD9: 706.1, ICD10: L70.0 No visible lesion in the right ear other than comedone. Follow up if pain worsens or persists. Requests female provider to evaluate bump on her genital area. HSV collected. (more content not included)... Normal [facility] HSV+VZV DNA FRIDA+probe Ql (Un sp spec)on 10-04-2023 HSV 1 DNA FRIDA+probe Ql (Unsp spec) Not detected Normal Not Detected [facility] Comment on above: Order Comment: Speci men Type: SWABOrdering Facility: [facility] Address: [address] [place] [address] Performed By: #### 3 3027-4 ####[facility] [id number] [place] [address] [place] HSV 2 DNA FRIDA+probe Ql (Unsp spec) Not detected Normal Not Detected [facility] Comment on above: Order Comment: Speci men Type: SWABOrdering Facility: [facility] Address: [address] [place] [address] Performed By: #### 3 3027-4 ####[facility] [id number] [address] [place] VZV DNA FRIDA+probe Ql (Unsp spec) Not detected Normal Not Detected [facility] Comment on above: Order Comment: Speci men Type: SWABOrdering Facility: [facility] Address: [address] [place] [address] Performed By: #### 3 3027-4 ####[facility] [id number] [place] [address] [place] Progress Noteon 09-26-2023 Progress Note [facility] [address] [facility] [id number] Discharge Notification Patient Name: Petar Alcocer : 1975 Today's Date: 09/26/2023 Patient has not been seen since 08/22/2023. The patient will be discharged at this time due to inactivity. The patient has not been seen for outpatient therapy in 30+ days and has not made contact to reschedule. The patient will require new referral/evaluation to resume therapy in the future. The patient will be discharged at this time. Please refer to initial evaluation or re-assessment for last goals/objective measures assessment and progress report. Thank you for this referral. For any questions on this patient?s course of therapy, please call the clinic for clarification. Myrtle Garcia, PT [facility] 09-24-[address] [facility] Telephone ([facility]) BRITTNEY ALCOCER ([id number]) 1975 F NFR Date Time Provider Department 09/24/23 YENNY OSMAN [facility] During your visit today, we recorded the following information about you: Oneil Lewis RN 09/24/2023 2:07 PM Signed Botox referral sent to pharmacy Brandon MITCHELL, RN RN Clinical Personal Health Coach [facility] Allergies As of Date: 09/24/2023 Noted Allergy Reaction CITALOPRAM HYDROBROMIDE 10/27/2004 10 - Anaphylaxis Comments: TACHYCARDIA MORPHINE 01/26/2005 8 - GI Upset AMOXICILLIN 10/24/2004 8 - GI Upset 14 - Other: See Comments Comments: Makes me worse ASA (SALICYLATES) 10/27/2004 4 - Hives CHOCOLATE 10/27/2004 EFFEXOR (VENLAFAXINE HCL) 10/27/2004 11 - Vomiting NAPROXEN 02/16/2006 5 - Intolerance Comments: Depression PENICILLIN G 09/08/2021 8 - GI Upset TAPE (ADHESIVE TAPE-SILICONES) 01/27/2021 14 - Other: See Comments Comments: Rash TOMATO 12/21/2020 5 - Intolerance Comments: If cooked cant tolerate them TRAMADOL 10/24/2004 8 - GI Upset TRAZODONE 08/28/2017 1 - Mental Status Change Comments: Causes hallucinations VENLAFAXINE 12/13/2015 16 - Unknown Date Reviewed: 09/18/2023 Reviewed by: Cyn Benjamin MA - Fully Assessed Reason for Visit: Referral Request [124] Prescriptions as of 09/24/2023 - clindamycin (CLEOCIN) 300 mg capsule Take 1 capsule by mouth three times a day for 7 days. - rimegepant (NURTEC ODT) 75 mg disintegrating tablet Take 1 tablet at onset of headache/migraine. Only take 1 tablet as single dose in 24 hour period. - ondansetron orally disintegrating (ZOFRAN ODT) 4 mg disintegrating tablet dissolve 1 tablet ON TONGUE every 8 hours if needed for nausea OR vomiting - lansoprazole (PREVACID) 30 mg capsule Take 1 capsule by mouth two times a day. - mirabegron (MYRBETRIQ) 50 mg Tb24 Take 1 tablet by mouth once daily. - simvastatin (ZOCOR) 20 mg tablet Take 2 tablets by mouth daily at bedtime. - loratadine (CLARITIN) 10 mg tablet take 1 tablet by mouth once daily - gabapentin (NEURONTIN) 800 mg tablet Take 1 tablet by mouth four times daily for 180 days. - MEDICATION, NON-DATABASE Marijuana for migraines Facility-Administered Medications as of 09/24/2023 - lidocaine (PF) 10 mg/mL (1 %) 1-2 mg injection (XYLOCAINE) - lactated ringers iv infusion - onabotulinum toxin type A 200 Units injection (BOTOX) Problem List As Of Date 09/24/2023 Noted Resolved Supervision of other normal [Z34.80] 01/26/2005 01/06/2016 CELLULITIS FINGER,PARONYCHIA/ONYCH IA [L03.019] 12/12/2005 01/06/2016 Viral warts, unspecified [B07.9] 12/12/2005 01/06/2016 VISUAL LOSS, ONE EYE NOS [H54.60] 09/17/2006 Pain in joint, lower leg [M25.569] 09/08/2011 01/06/2016 Pain in joint, pelvic region and thigh [M25.559]09/08/2011 01/06/2016 Carpal tunnel syndrome, left [G56.02] 05/09/2012 Right knee pain [M25.561] 06/30/2014 Diverticulosis of intestine without bleeding [K*11/10/2015 Amenorrhea, unspecified [N91.2] 07/20/2015 Leiomyoma of uterus, unspecified [D25.9] 10/07/2015 Major depressive disorder, single episode, unsp*06/15/2015 Pain in right shoulder [M25.511] 10/12/2015 Unspecified asthma, uncomplicated [J45.909] 06/15/2015 Gastro-esophageal reflux disease without esopha*12/13/2015 Anxiety [F41.9] 12/13/2015 Left ovarian cyst [N83.202] 12/13/2015 History of drug abuse [F19.11] 12/13/2015 History of migraine [Z86.69] 12/13/2015 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] 12/13/2015 Kidney stone [N20.0] 12/13/2015 History of seizure [Z87.898] 12/13/2015 History of renal cell cancer [Z85.528] 01/06/2016 Renal neoplasm [D49.519] 04/27/2016 Occipital neuralgia of right side [M54.81] 08/15/2016 Eustachian tube dysfunction, bilateral [H69.93] 10/11/2016 Lumbar radiculopathy [M54.16] 10/11/2016 Leg weakness, bilateral [R29.898] 10/11/2016 Chronic bilateral low back pain with bilateral *10/11/2016 Chronic right-sided thoracic back pain [M54.6, *10/11/2016 Paresthesia of bilateral legs [R20.2] 10/11/2016 Osteoarthritis of spine with radiculopathy, lum*12/20/2016 Obesity, Class III, BMI >= 40 (morbid obesity) *01/12/2017 Migraine with aura, not intractable, without st*01/12/2017 Intervertebral disc disorder with radiculopathy* 8 Jaw pain [R68.84] 03/23/2017 Low back pain with left-sided sciatica [M54.42] 03/23/2017 Low back pain with right-sided sciatica [M54.41]03/23/2017 Other intervertebral disc degeneration, thoraci*03/23/2017 Pleurodynia [R07.81] 03/23/2017 Syncope and collapse [R55] 03/23/2017 Chronic migraine without aura, intractable, wit*04/10/2017 Intractable chronic post-traumatic headache [G4*04/10/2017 Chronic pain syndrome [G89.4] 04/10/2017 Obesity, Class II, BMI 35-39.9 [E66.9] 12/19/2017 Auditory hallucination [R44.0] 12/10/2017 Hypertriglyceridemia [E78.1] 03/25/2018 (more content not included)... Normal [facility] CNPNon 09-19-2023 CNPN Telephone ([facility]) BRITTNEY ALCOCER ([id number]) 1975 F NFR Date Time Provider Department 09/19/23 YENNY OSMAN [facility] During your visit today, we recorded the following information about you: Leah Mathew MA 09/19/2023 10:26 AM Signed Initiated over CMM: [employer] is processing your PA request and will respond shortly with next steps. BRITTNEY ALCOCER (Louise: [id number]) Drug Nurtec 75MG dispersible tablets [facility] logo Form [place] [employer] Electronic PA Form (2016 [facility]) Waiting for questions LANDRY [place] Latonya J, MA 09/21/2023 8:28 AM Signed BRITTNEY ALCOCER (Louise: [id number]) PA Drug Nurtec 75MG dispersible tablets Electronic prior authorization not supported as a duplicate PA was found. Medication already approved Leah Mathew MA Allergies As of Date: 09/19/2023 Noted Allergy Reaction CITALOPRAM HYDROBROMIDE 10/27/2004 10 - Anaphylaxis Comments: TACHYCARDIA MORPHINE 01/26/2005 8 - GI Upset AMOXICILLIN 10/24/2004 8 - GI Upset 14 - Other: See Comments Comments: Makes me worse ASA (SALICYLATES) 10/27/2004 4 - Hives CHOCOLATE 10/27/2004 EFFEXOR (VENLAFAXINE HCL) 10/27/2004 11 - Vomiting NAPROXEN 02/16/2006 5 - Intolerance Comments: Depression PENICILLIN G 09/08/2021 8 - GI Upset TAPE (ADHESIVE TAPE-SILICONES) 01/27/2021 14 - Other: See Comments Comments: Rash TOMATO 12/21/2020 5 - Intolerance Comments: If cooked cant tolerate them TRAMADOL 10/24/2004 8 - GI Upset TRAZODONE 08/28/2017 1 - Mental Status Change Comments: Causes hallucinations VENLAFAXINE 12/13/2015 16 - Unknown Date Reviewed: 09/18/2023 Reviewed by: Cyn Benjamin MA - Fully Assessed Reason for Visit: Insurance Authorization [[id number]] Oswaldo/Rupinder/Jolie ell [Other] Prescriptions as of 09/21/2023 - clindamycin (CLEOCIN) 300 mg capsule Take 1 capsule by mouth three times a day for 7 days. - rimegepant (NURTEC ODT) 75 mg disintegrating tablet Take 1 tablet at onset of headache/migraine. Only take 1 tablet as single dose in 24 hour period. - ondansetron orally disintegrating (ZOFRAN ODT) 4 mg disintegrating tablet dissolve 1 tablet ON TONGUE every 8 hours if needed for nausea OR vomiting - lansoprazole (PREVACID) 30 mg capsule Take 1 capsule by mouth two times a day. - mirabegron (MYRBETRIQ) 50 mg Tb24 Take 1 tablet by mouth once daily. - simvastatin (ZOCOR) 20 mg tablet Take 2 tablets by mouth daily at bedtime. - loratadine (CLARITIN) 10 mg tablet take 1 tablet by mouth once daily - gabapentin (NEURONTIN) 800 mg tablet Take 1 tablet by mouth four times daily for 180 days. - MEDICATION, NON-DATABASE Marijuana for migraines Facility-Administered Medications as of 09/21/2023 - lidocaine (PF) 10 mg/mL (1 %) 1-2 mg injection (XYLOCAINE) - lactated ringers iv infusion - onabotulinum toxin type A 200 Units injection (BOTOX) Problem List As Of Date 09/19/2023 Noted Resolved Supervision of other normal [Z34.80] 01/26/2005 01/06/2016 CELLULITIS FINGER,PARONYCHIA/ONYCH IA [L03.019] 12/12/2005 01/06/2016 Viral warts, unspecified [B07.9] 12/12/2005 01/06/2016 VISUAL LOSS, ONE EYE NOS [H54.60] 09/17/2006 Pain in joint, lower leg [M25.569] 09/08/2011 01/06/2016 Pain in joint, pelvic region and thigh [M25.559]09/08/2011 01/06/2016 Carpal tunnel syndrome, left [G56.02] 05/09/2012 Right knee pain [M25.561] 06/30/2014 Diverticulosis of intestine without bleeding [K*11/10/2015 Amenorrhea, unspecified [N91.2] 07/20/2015 Leiomyoma of uterus, unspecified [D25.9] 10/07/2015 Major depressive disorder, single episode, unsp*06/15/2015 Pain in right shoulder [M25.511] 10/12/2015 Unspecified asthma, uncomplicated [J45.909] 06/15/2015 Gastro-esophageal reflux disease without esopha*12/13/2015 Anxiety [F41.9] 12/13/2015 Left ovarian cyst [N83.202] 12/13/2015 History of drug abuse [F19.11] 12/13/2015 History of migraine [Z86.69] 12/13/2015 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] 12/13/2015 Kidney stone [N20.0] 12/13/2015 History of seizure [Z87.898] 12/13/2015 History of renal cell cancer [Z85.528] 01/06/2016 Renal neoplasm [D49.519] 04/27/2016 Occipital neuralgia of right side [M54.81] 08/15/2016 Eustachian tube dysfunction, bilateral [H69.93] 10/11/2016 Lumbar radiculopathy [M54.16] 10/11/2016 Leg weakness, bilateral [R29.898] 10/11/2016 Chronic bilateral low back pain with bilateral *10/11/2016 Chronic right-sided thoracic back pain [M54.6, *10/11/2016 Paresthesia of bilateral legs [R20.2] 10/11/2016 Osteoarthritis of spine with radiculopathy, lum*12/20/2016 Obesity, Class III, BMI >= 40 (morbid obesity) *01/12/2017 Migraine with aura, not intractable, without st*01/12/2017 Intervertebral disc disorder with radiculopathy* 8 Jaw pain [R68.84] (more content not included)... Normal [facility] CNOVon 09-18-2023 CNOV Office Visit ([facility]WSTR ) MARIYAILENE MukherjeeBRITTNEY ([id number]) 1975 F NFR Date Time Provider Department 09/18/23 6:15 PM GLO DALAL [facility] During your visit today, we recorded the following information about you: Temperature Pulse Respiration Blood pressure 97.6 degrees 65/minute 18/minute 115/80 Weight 80.1 kg Glo Dalal APRN.GASOLINE LOCOMOTIVE CRANE OPERATOR 09/18/2023 6:30 PM Signed Subjective HPI HPI Brittney Alcocer is a 48 year old female who presents today for CC of dental pain/swelling. This started today. Has tried nothing for relief. Symptoms are worsened by nothing. Hx of dental problems, saw dentist recently. Denies dental injury. .Patient presents with: Mouth/Lip Problem: Upper gumline abscess x this AM, feeling pain in sinuses and drainage PAST MEDICAL HISTORY No date: Adjustment disorder with depressed mood No date: Allergic rhinitis No date: Arthritis of right knee No date: Asthma No date: Bilateral ovarian cysts 1995: Cholecystitis, unspecified Comment: Gallbladder removed No date: Chronic pain syndrome No date: Fibroids No date: Gastric ulcer, unspecified as acute or chronic, without mention of hemorrhage or perforation, with obstruction Comment: occasional bleeding No date: GERD (gastroesophageal reflux disease) No date: 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 SYNDROME No date: Unspecified asthma(493.90) Comment: occasional inhaler 12/2005: Urinary calculus, unspecified Comment: Renal stones: left kidney per CT PAST SURGICAL HISTORY 08/02/2020: BLADDER SURGERY HX Comment: Cystoscopy and Sling 10/12/2016: CARPAL TUNNEL; Left Comment: Dr. Conner 1994: DELIVERY ONLY Comment: , low cervical 07/26/2005: DELIVERY ONLY Comment: , low cervical 1995: CHOLECYSTECTOMY 09/03/2017: COLONOSCOPY Comment: D. Evangelista. NORMAL. Repeat in 10 years. 2016: DILATION AND CURETTAGE DXAND/THER NONOBSTETRIC Comment: Dilation AND curettage X 2 02/25/2010: EGD Comment: Abnormal LES, esophagitis, antral ulcers, retained fluid in stomach, pos H Pylori 04/14/2008: EGD Comment: antral gastritis, neg h Pylori 2021: EGD W/O [facility] SPEC VARICIES INJ 06/29/2021: EGD W/O [facility] SPEC VARICIES INJ No date: LAPAROSCOPY SURG CHOLECYSTECTOMY 2006: PAST SURGICAL HISTORY OF Comment: REMOVAL OF FATTY TUMOR FROM R ARM 2007: PAST SURGICAL HISTORY OF Comment: Carpal Tunnel Surgery on right wrist 09/27/2012: PAST SURGICAL HISTORY OF Comment: left wrist carpal tunnel release 2017: PAST SURGICAL HISTORY OF; Right Comment: partial nephrectomy 12/24/2019: VAGINAL HYSTERECTOMY 09/03/2018: WART REMOVAL WHI; Right Comment: Removal of wart on third finger right hand - Dr. Herrera ALLERGIES Citalopram Hydrobromide, Morphine, Amoxicillin, Asa [Salicylates], Chocolate, Effexor [Venlafaxine Hcl], Naproxen, Penicillin G, Tape [Adhesive Tape-Silicones], Tomato, Tramadol, Trazodone, and Venlafaxine MEDICATIONS clindamycin (CLEOCIN) 300 mg capsuleTake 1 capsule by mouth three times a day for 7 days.Disp: 21 capsuleRfl: 0 rimegepant (NURTEC ODT) 75 mg disintegrating tabletTake 1 tablet at onset of headache/migraine. Only take 1 tablet as single dose in 24 hour period.Disp: 8 tabletRfl: 11 ondansetron orally disintegrating (ZOFRAN ODT) 4 mg disintegrating tabletdissolve 1 tablet ON TONGUE every 8 hours if needed for nausea OR vomitingDisp: 20 tabletRfl: 11 lansoprazole (PREVACID) 30 mg capsuleTake 1 capsule by mouth two times a day.Disp: 60 capsuleRfl: 0 mirabegron (MYRBETRIQ) 50 mg [id number] 1 tablet by mouth once daily.Disp: 30 tabletRfl: 5 simvastatin (ZOCOR) 20 mg tabletTake 2 tablets by mouth daily at bedtime.Disp: 180 tabletRfl: 3 loratadine (CLARITIN) 10 mg tablettake 1 tablet by mouth once dailyDisp: 28 tabletRfl: 11 gabapentin (NEURONTIN) 800 mg tabletTake 1 tablet by mouth four times daily for 180 days.Disp: 120 tabletRfl: 5 MEDICATION, NON-DATABASEMarijuana for migrainesDisp: Rfl: FAMILY HISTORY Problem Relation Age of Onset Hypertension Mother Psychiatry Mother DEPRESSION other (Centre's Chorea) Mother other (Other) Sister stillborn other (Heart Disease) Maternal Grandfather other (Down Syndrome) Paternal Grandfather other (Centre's Chorea) Broth (more content not included)... Normal [facility] CNOVon 09-11-2023 CNOV Office Visit (NRHAME ) BRITTNEY ALCOCER ([id number]) 1975 F NFR Date Time Provider Department 09/11/23 4:00 PM YENNY OSMAN During your visit today, we recorded the following information about you: Pulse Blood pressure Weight Height 76/minute 101/67 80.8 kg 1.473 m Yenny Osman APRN.GASOLINE LOCOMOTIVE CRANE OPERATOR 09/11/2023 4:31 PM Signed Head[facility] Follow-up Visit Impression: Chronic migraine without aura, intractable, without status migrainosus (primary encounter diagnosis) Nausea and vomiting, unspecified vomiting type Brittney Alcocer has been previously approved for an Oral Calcitonin Gene-Related Peptide Receptor Antagonist (GEPANT) Rimegepant for the treatment of abortive use. The patient has demonstrated the following: Provider attests patient has had a positive clinical response: Yes Patient will not use with another Oral Calcitonin Gene-Related Peptide Receptor Antagonist (GEPANT): Yes Patient's quality of life and ability to perform ADLs has improved: Yes The patient has tried and failed the following : We suggest the patient continue treatment with GEPANT Rimegepant. The following preventative medications have been tried for three or more months without benefit: Anti-Convulsant Divalproex sodium (Depakote) Gabapentin (Neurontin) Anti-Depressant and Antipsychotic Amitriptyline (Elavil) Bupropion (Wellbutrin) Citalopram (Celexa) Fluoxetine (Prozac) Olanzapine (Zyprexa, Zydis) Quetiapine (Seroquel) Sertraline (Zoloft) Venlafaxine (Effexor) Blood Pressure NO beta blockers - asthma MABs Erenumab (Aimovig) lost efficacy Galcanezumab (Emgality) not effective Botulinum Toxin Onabotulinum Toxin A (Botox) Supplements Magnesium Riboflavin The following abortive medications have been tried but require high frequency use which can lead to Medication Overuse Headache: Analgesic Diclofenac (Voltaren, Cataflam, Cambia) Hydrocodone/Acetaminoph en (Vicodin, [place]) Indomethacin (Indocin) Ketorolac (Toradol) Tramadol (Ultram) celebrex Anti-Anxiety Alprazolam (Xanax, Niravam) Anti-Migraine Naratriptan (Amerge) Rizatriptan (Maxalt) Sumatriptan (Imitrex, Sumavel) raised blood pressure cannot use triptans - H/O TIA and [place] GEPANTS Rimegepant (Nurtec) Over the Counter Medications Acetaminophen (Tylenol) Ibuprofen (Advil, Motrin) Follow-Up Onabotulinum Toxin A (BotoxTM) for Migraine Indication: Chronic Intractable Migraine Referral Expiration: 12/09/2023 Prior to the initiation of the FIRST treatment with Onabotulinum Toxin A, the patient reported the following average headache frequency over the past 3 MONTHS: Number of moderate-severe migraine days/month: 30 (daily) Number of mild migraine days/month: 0 Number of headache free days/month: 0 (0 headache-free hours) Migraine severity: 11/14 After treatment with Onabotulinum Toxin A: Number of moderate-severe migraine days/month: 15 Number of mild migraine days/month: 0 Number of headache free days/month: 15 (360 headache-free hours) Migraine severity: 08/14 Patient reduction in overall migraine days: Yes Patient reduction in moderate-severe migraine days: Yes Patient reduction of headache hours by 100 hours or more: Yes (reduction of 360 hours) Individual has obtained clinical benefit deemed significant by individual or prescriber (Y/N): Yes Patient's quality of life and ability to perform ADLs has improved (Y/N): Yes Side effects: none Wearing off: Yes - 8 weeks after treatment The patient has been assessed for disorders which could contribute to breathing or swallowing difficulty, and there is no contraindication with PREEMPT Botox. There is no documented allergic reaction/hypersensitivi ty to any botulinum toxin and there is no active infection at proposed injection site. HEADACHE SCORES: 09/15/2022 12/04/2022 02/09/2023 Headache Questions ER visits since last office visit: 0 2 0 Hospital stays since last office visit 0 0 Limited ADLs in the last month: 0 6 Days missed from work or school in the last month: 0 2 Days headache pain free in the last month: 2 2 Days per month with ALL of the following symptoms - decreased productivity, light sensitivity and nausea: 7 5 Initial improvement of headache after botox injection at last visit: Very much improved Very much improved PRN medication usage in the last month: 4 Patient impression of improvement since last visit: Minimally improved Much improved 12/04/2022 02/09/2023 07/12/2023 HIT-6 HIT-6 63 (Severe impact) 66 (Severe impact) 67 (Severe impact) 12/04/2022 02/09/2023 07/12/2023 DAVID - 2/7 SCORES DAVID-2 Score 0 0 3 DAVID-7 Score 9 12/04/2022 02/09/2023 07/12/2023 Migraine Specific QOL - Higher scores indicate better HRQL Role Function-Restrictive Transformed Score (range: 0-100) 60 60 0 Role Function-Preventive Transforme (more content not included)... Normal [facility] CNPNon 09-03-2023 CNPN Telephone (LIZET) BRITTNEY ALCOCER ([id number]) 1975 F NFR Date Time Provider Department 09/03/23 CRISTOBAL OTOOLE During your visit today, we recorded the following information about you: Ceasar Duncan MA 09/03/2023 7:10 AM Signed Please help assist with scheduling appointment. Allergies As of Date: 09/03/2023 Noted Allergy Reaction CITALOPRAM HYDROBROMIDE 10/27/2004 10 - Anaphylaxis Comments: TACHYCARDIA MORPHINE 01/26/2005 8 - GI Upset AMOXICILLIN 10/24/2004 8 - GI Upset 14 - Other: See Comments Comments: Makes me worse ASA (SALICYLATES) 10/27/2004 4 - Hives CHOCOLATE 10/27/2004 EFFEXOR (VENLAFAXINE HCL) 10/27/2004 11 - Vomiting NAPROXEN 02/16/2006 5 - Intolerance Comments: Depression PENICILLIN G 09/08/2021 8 - GI Upset TAPE (ADHESIVE TAPE-SILICONES) 01/27/2021 14 - Other: See Comments Comments: Rash TOMATO 12/21/2020 5 - Intolerance Comments: If cooked cant tolerate them TRAMADOL 10/24/2004 8 - GI Upset TRAZODONE 08/28/2017 1 - Mental Status Change Comments: Causes hallucinations VENLAFAXINE 12/13/2015 16 - Unknown Date Reviewed: 08/28/2023 Reviewed by: Laura Carolina, RN - Fully Assessed Prescriptions as of 09/03/2023 - lansoprazole (PREVACID) 30 mg capsule Take 1 capsule by mouth two times a day. - mirabegron (MYRBETRIQ) 50 mg Tb24 Take 1 tablet by mouth once daily. - rimegepant (NURTEC ODT) 75 mg disintegrating tablet Take 1 tablet at onset of headache/migraine. Only take 1 tablet as single dose in 24 hour period. - simvastatin (ZOCOR) 20 mg tablet Take 2 tablets by mouth daily at bedtime. - loratadine (CLARITIN) 10 mg tablet take 1 tablet by mouth once daily - ondansetron orally disintegrating (ZOFRAN ODT) 4 mg disintegrating tablet dissolve 1 tablet ON TONGUE every 8 hours if needed for nausea OR vomiting - gabapentin (NEURONTIN) 800 mg tablet Take 1 tablet by mouth four times daily for 180 days. - MEDICATION, NON-DATABASE Marijuana for migraines Facility-Administered Medications as of 09/03/2023 - lidocaine (PF) 10 mg/mL (1 %) 1-2 mg injection (XYLOCAINE) - lactated ringers iv infusion - onabotulinum toxin type A 200 Units injection (BOTOX) Meds Comments as of 02/07/2014: Problem List As Of Date 09/03/2023 Noted Resolved Supervision of other normal [Z34.80] 01/26/2005 01/06/2016 CELLULITIS FINGER,PARONYCHIA/ONYCH IA [L03.019] 12/12/2005 01/06/2016 Viral warts, unspecified [B07.9] 12/12/2005 01/06/2016 VISUAL LOSS, ONE EYE NOS [H54.60] 09/17/2006 Pain in joint, lower leg [M25.569] 09/08/2011 01/06/2016 Pain in joint, pelvic region and thigh [M25.559]09/08/2011 01/06/2016 Carpal tunnel syndrome, left [G56.02] 05/09/2012 Right knee pain [M25.561] 06/30/2014 Diverticulosis of intestine without bleeding [K*11/10/2015 Amenorrhea, unspecified [N91.2] 07/20/2015 Leiomyoma of uterus, unspecified [D25.9] 10/07/2015 Major depressive disorder, single episode, unsp*06/15/2015 Pain in right shoulder [M25.511] 10/12/2015 Unspecified asthma, uncomplicated [J45.909] 06/15/2015 Gastro-esophageal reflux disease without esopha*12/13/2015 Anxiety [F41.9] 12/13/2015 Left ovarian cyst [N83.202] 12/13/2015 History of drug abuse [F19.11] 12/13/2015 History of migraine [Z86.69] 12/13/2015 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] 12/13/2015 Kidney stone [N20.0] 12/13/2015 History of seizure [Z87.898] 12/13/2015 History of renal cell cancer [Z85.528] 01/06/2016 Renal neoplasm [D49.519] 04/27/2016 Occipital neuralgia of right side [M54.81] 08/15/2016 Eustachian tube dysfunction, bilateral [H69.93] 10/11/2016 Lumbar radiculopathy [M54.16] 10/11/2016 Leg weakness, bilateral [R29.898] 10/11/2016 Chronic bilateral low back pain with bilateral *10/11/2016 Chronic right-sided thoracic back pain [M54.6, *10/11/2016 Paresthesia of bilateral legs [R20.2] 10/11/2016 Osteoarthritis of spine with radiculopathy, lum*12/20/2016 Obesity, Class III, BMI >= 40 (morbid obesity) *01/12/2017 Migraine with aura, not intractable, without st*01/12/2017 Intervertebral disc disorder with radiculopathy* 8 Jaw pain [R68.84] 03/23/2017 Low back pain with left-sided sciatica [M54.42] 03/23/2017 Low back pain with right-sided sciatica [M54.41]03/23/2017 Other intervertebral disc degeneration, thoraci*03/23/2017 Pleurodynia [R07.81] 03/23/2017 Syncope and collapse [R55] 03/23/2017 Chronic migraine without aura, intractable, wit*04/10/2017 Intractable chronic post-traumatic headache [G4*04/10/2017 Chronic pain syndrome [G89.4] 04/10/2017 Obesity, Class II, BMI 35-39.9 [E66.9] 12/19/2017 Auditory hallucination [R44.0] 12/10/2017 Hypertriglyceridemia [E78.1] 03/25/2018 Hyperlipidemia [E78.5] 07/02/2018 Restless leg [G25.81] 07/02/2018 Obstructive sleep apnea syndrome [G47.33] 08/11/2016 Viral wart on finger [B07.9] 04/04/2019 PMB (postme (more content not included)... [facility] [id number] 08-28-2023 [id number] HNO ID: [id number] Author: LAURA CAROLINA RN Service: ? Author Type: Registered Nurse Type: [id number] Filed: 08/28/2023 12:11 Note Text: The patient received a copy of EGD discharge instructions that contain information for how to contact the physician who performed the procedure and when to seek medical care. Normal [facility] ANES POSTPROC EVALon 024 ANES POSTPROC EVAL HNO ID: [id number] Author: JAZ GARCIA APRN.CRNA Service: Anesthesiology Author Type: Nurse Branch Banker Type: Anesthesia Postprocedure Evaluation Filed: 08/28/2023 12:01 Note Text: POST ANESTHESIA EVALUATION NOTE : 1975 Procedure Summary Date: 08/28/23 Room / Location: Ambulatory Surgery Anesthesia Start: 1142 Anesthesia Stop: 1158 Procedure: EGD DIAGNOSTIC Diagnosis: Epigastric pain Nausea and vomiting, unspecified vomiting type Dysphagia, unspecified type (Epigastric abdominal pain) Scheduled Providers: Edwin Cheung MD Responsible Provider: Jaz Garcia APRN.CRNA Anesthesia Type: MAC ASA Status: 3 Anesthesia Type: MAC Last Vitals Vitals Value Taken Time BP 87/55 08/28/23 1153 Temp 36.3 ?C (97.3 ?F) 08/28/23 1153 Pulse 85 08/28/23 1153 Resp 16 08/28/23 1153 SpO2 93 % 08/28/23 1153 Post Anesthesia Patient Status Patient Evaluation: PACU. PACU/ICU Patient Condition: stable. Anticipated Disposition: phase 2 then home. Neurological Status: sleepy but arousable. Pulmonary Status: breathing comfortably on room air Airway Control: returned to baseline unsupported. Cardiovascular Status: stable. Pain Management: clinically adequate - multimodal analgesia pain management approach Postoperative Hydration: acceptable. Intraoperative Events: no significant anesthesia events Post Operative Nausea/Vomiting Status: no significant post operative nausea or vomiting Recommendation: continue current plan of care. Anesthesia Observations No Documentation SIGNATURE: Jaz Garcia APRN.FIBERLINE SUPERVISOR PATIENT NAME: Brittney Alcocer DATE: August 28, 2023 TIME: 12:01 PM CSN: [id number] [facility] ANES PREOPon 08-28-2023 ANES PREOP HNO ID: [id number] Author: EDWIN CHEUNG MD Service: Gastroenterology Author Type: Physician Type: Anesthesia PreOp Filed: 08/28/2023 11:39 Note Text: HISTORY AND PHYSICAL Britteny Alcocer, 48 year old female Current history and physical on file: Yes Is a new History and Physical required for today's visit? No Indication for procedure: Abdominal pain PROCEDURE(S) SCHEDULED FOR: EGD (Esophagogastroduodenos copy) with or without biopsies, removal of polyps or lesions, dilation ( any means), treatment of bleeding ( any means), Barrx treatment of Benitez's Esophagus, image tube placement or cryo therapy treatment based on clinical findings. BASELINE BEHAVIOR: Calm BASELINE ORIENTATION: A AND O x3 All medications and allergies reviewed: Yes Skin Assessment: Warm dry mucus membranes pink Airway/Respiratory Assessment: Airway: visualization of the uvula- Yes Mouth: opening greater than 2 fingerbreadths- Yes Neck: full range of motion- Yes Breath sounds clear/equal- Yes Cardiac Assessment: Regular rate and rhythm without murmur Abdominal Assessment: Abdomen soft, non-tender, no masses or organomegaly. Sedation Plan: Moderate Additional Comments: None Edwin Cheung MD [facility] NURSING PROGon 08-28-2023 NURSING PROG HNO ID: [id number] Author: LAURA CAROLINA, USHA Service: ? Author Type: Registered Nurse Type: Nursing Progress Note Filed: 08/28/2023 12:10 Note Text: Hob up. States ready to go. Assisted pt w/dressing. All belongings given. Dr is at the bedside. No questions. Normal [facility] SURGICAL PATHOLOGYon 024 ADDENDUM 1: A and B. Normal [facility] Comment on above: Order Comment: Specdebra stein Type: TISSUE SPECIMENOrdering Facility: [facility] Address: [address] [place] [address] Result Comment: -CMV : Negative -HSV: Negative -GMS: Negative Laboratory Developed Test (LDT) Disclaimer: Performance characteristics of immunohistochemical, immunofluorescent and chromogenic in-situ hybridization tests have been determined by the performing laboratory within [facility]???s [facility] Pathology and Laboratory Medicine Department ([facility], [facility], [facility], [facility], [facility], [facility], or [facility]) in a manner consistent with CLIA requirements. One or more of these tests have not been cleared or approved by the FDA. [facility] is regulated under CLIA as qualified to perform high-complexity testing. These tests are used for clinical purposes. They should not be regarded as investigational or for research. Positive and negative controls stain appropriately. Addendum electronically signed by Dennis Hernández MD on 08/31/2023 at 4:28 PM Performed By: #### S ####[facility] LABCLIA [id number] [place] [address] [place] CASE REPORT Normal [facility] Comment on above: Order Comment: Specdebra stein Type: TISSUE SPECIMENOrdering Facility: [facility] Address: [address] [place] [address] Result Comment: Surg ica Pathology Report Case: [id number] Authorizing Provider: Edwin Cheung MD Collected: 08/28/2023 11:46 AM Ordering Location: Ambulatory Surgery Received: 08/28/2023 07:52 PM Pathologist: Dennis Hernández MD Specimens: A) - Esophagus, Distal, Biopsy B) - Esophagus, Proximal, Biopsy Performed By: #### S ####[facility] LABCLIA [id number] [address] OF [facility] FINAL DIAGNOSIS Normal [facility] Comment on above: Order Comment: Speci men Type: TISSUE SPECIMENOrdering Facility: [facility] Address: [address] [place] [address] Result Comment: A. E sophagus, distal, biopsy: -Acute esophagitis with occasional intraepithelial eosinophils (up to 5 eosinophils per high-power field) -GMS, HSV and CMV stains to follow B. Esophagus, proximal, biopsy: -Acute esophagitis with occasional intraepithelial eosinophils (up to 10 eosinophils per high-power field) -GMS, HSV and CMV stains to follow Performed By: #### S ####[facility] LABCLIA [id number] [address] [place] FINAL PERFORMING LAB Normal [facility] Comment on above: Order Comment: Speci men Type: TISSUE SPECIMENOrdering Facility: [facility] Address: [address] [place] [address] Result Comment: Diag nostic interpretation performed at [facility], [address] [place] [address] CLIA# [id number] Paster Operator: Reid Emerson M.D. Performed By: #### S ####[facility] LABCLIA [id number] [address] [place] GROSS DESCRIPTION Normal [facility] Comment on above: Order Comment: Speci men Type: TISSUE SPECIMENOrdering Facility: [facility] Address: [address] [place] [address] Result Comment: A. E sophagus, Distal, Biopsy Received in formalin are two pieces of bui-white, soft tissue aggregating to 0.5 x 0.3 x 0.1 Cm. Totally submitted in one cassette. B. Esophagus, Proximal, Biopsy Received in formalin are two pieces of bui-white, soft tissue aggregating to 0.5 x 0.2 x 0.1 cm. Totally submitted in one cassette. Gross examination performed at [facility], [address] [place] [id number] KK August 28, 2023 10:39 PM Performed By: #### S ####[facility] LABCLIA [id number] [address] [id number] [id number] [facility] Upper GI endoscopyon 024 Upper GI endoscopy [facility] Patient Name: Brittney Alcocer Procedure Date: 08/28/2023 11:38 AM Date of : 1975 Admit Type: Outpatient Age: 48 Room: [place] [address] Gender: Female Note Status: Finalized Attending MD: Edwin Cheung MD, [id number] Procedure: Upper GI endoscopy Indications: Epigastric abdominal pain Providers: Edwin Cheung MD Patient Profile: Refer to note in patient chart for documentation of history and physical. Referring Physician: Snow Alonso (Referring MD) Medicines: Monitored Anesthesia Care Complications: No immediate complications. Requesting Provider: Procedure: Pre-Anesthesia Assessment: - Prior to the procedure, a History and Physical was performed, and patient medications and allergies were reviewed. The patient's tolerance of previous anesthesia was also reviewed. The risks and benefits of the procedure and the sedation options and risks were discussed with the patient. All questions were answered, and informed consent was obtained. Prior Anticoagulants: The patient has taken no anticoagulant or antiplatelet agents. ASA Grade Assessment: III - A patient with severe systemic disease. After reviewing the risks and benefits, the patient was deemed in satisfactory condition to undergo the procedure. After obtaining informed consent, the endoscope was passed under direct vision. Throughout the procedure, the patient's blood pressure, pulse, and oxygen saturations were monitored continuously. The Endoscope was introduced through the mouth, and advanced to the second part of duodenum. I was present and participated during the entire procedure, including non-louise portions, and during the administration and monitoring of Moderate Sedation. The upper GI endoscopy was accomplished without difficulty. The patient tolerated the procedure well. Moderate Sedation: MAC anesthesia was administered by the anesthesia team. Findings: Normal mucosa was found in the proximal esophagus. Biopsies were taken with a cold forceps for histology. Verification of patient identification for the specimen was done. Estimated blood loss was minimal. Normal mucosa was found in the distal esophagus. Biopsies were taken with a cold forceps for histology. Verification of patient identification for the specimen was done. Estimated blood loss was minimal. The Z-line was irregular and was found 38 cm from the incisors. Suspect gastroparesis due to retained gastric contents. Impression: - Normal mucosa was found in the proximal esophagus. Biopsied. - Normal mucosa was found in the distal esophagus. Biopsied. - Z-line irregular, 38 cm from the incisors. - Gastroparesis, secondary to medication. Recommendation: - Patient has a contact number available for emergencies. The signs and symptoms of potential delayed complications were discussed with the patient. Return to normal activities tomorrow. Written discharge instructions were provided to the patient. - Resume previous diet. - Continue present medications. - Stop using MJ - Await pathology results. - Return to GI clinic as previously scheduled. Procedure Code(s): --- Professional --- 59693, Esophagogastroduodenosc opy, flexible, transoral; with biopsy, single or multiple CPT copyright 2020 [employer]. All rights reserved. The codes documented in this report are preliminary and upon director of labor relations review may be revised to meet current compliance requirements. Attending Participation: I personally performed the entire procedure. Scope In: 11:44:28 AM Scope Out: 11:48:04 AM MD Edwin Farfan MD 08/28/2023 12:00:39 PM This report has been signed electronically by Edwin Cheung MD Number of Addenda: 0 Note Initiated On: 08/28/2023 11:38 AM Estimated Blood Loss: Estimated blood loss: none. Normal [facility] ANES PRE-OPon 08-27-2023 ANES PRE-OP HNO ID: [id number] Author: JAZ GARCIA APRN.FIBERLINE SUPERVISOR Service: Anesthesiology Author Type: Nurse Branch Banker Type: Anesthesia Preprocedure Evaluation Filed: 08/28/2023 11:42 Note Text: ANESTHESIOLOGY DAY OF SURGERY NOTE : 1975 Procedure Information Date/Time: 08/28/23 1100 Scheduled providers: Edwin Cheung MD Procedure: EGD DIAGNOSTIC Location: Ambulatory Surgery Estimated body mass index is 37.06 kg/m? as calculated from the following: Height as of 08/27/23: 147.3 cm (4' 10). Weight as of 08/27/23: 80.4 kg (177 lb 4.8 oz). Most recent hematocrit and potassium results: HEMATOCRIT 46.0 08/17/2023 K 4.0 08/17/2023 Relevant Problems No relevant active problems I - PHYSICAL EVALUATION AIRWAY Patient intubated: No. Tracheostomy tube not present Mallampati: II. TM distance: >3 FB. Neck ROM: full ROM without neurological symptoms. Mouth opening: adequate. Short neck: no. Thick neck: no St present: no Lip Bite Test: I Microretrognathia/Micro nagthia/Recessed Chin: No DENTAL Dental findings: teeth intact. Additional exam findings: no II - ANESTHESIA PLAN ASA Score: 3 Anesthetic Plan: MAC The patient is a current smoker. NPO Status: adequate Beta Sony Monitoring Plan Monitoring plan: standard ASA. Post Procedure Analgesic Plan Postoperative analgesic plan: parenteral or oral opioids and multimodal analgesia. Informed Consent Anesthetic risks, benefits, alternatives, personnel and consent discussed: yes. Patient / Responsible Libertarian agrees to proceed: yes Patient / Surrogate agrees to blood products: blood products not planned Significant changes in the patient condition since the History and Physical, not otherwise documented in primary service progress note: no. Discussed the possibility of lip / dental damage: yes No vitals data found for the desired time range. Outpatient Medications as of 08/28/2023 Medication Sig - lansoprazole (PREVACID) 30 mg capsule Take 1 capsule by mouth two times a day. - mirabegron (MYRBETRIQ) 50 mg Tb24 Take 1 tablet by mouth once daily. - rimegepant (NURTEC ODT) 75 mg disintegrating tablet Take 1 tablet at onset of headache/migraine. Only take 1 tablet as single dose in 24 hour period. - simvastatin (ZOCOR) 20 mg tablet Take 2 tablets by mouth daily at bedtime. - loratadine (CLARITIN) 10 mg tablet take 1 tablet by mouth once daily - ondansetron orally disintegrating (ZOFRAN ODT) 4 mg disintegrating tablet dissolve 1 tablet ON TONGUE every 8 hours if needed for nausea OR vomiting - gabapentin (NEURONTIN) 800 mg tablet Take 1 tablet by mouth four times daily for 180 days. - MEDICATION, NON-DATABASE Marijuana for migraines Facility-Administered Medications as of 08/28/2023 Medication Dose Route Frequency - onabotulinum toxin type A 200 Units injection (BOTOX) 200 Units OTHER q 3 MONTHS I have interviewed and examined the patient. I have reviewed the medical record and/or the pre-anesthesia evaluation, pertinent labs, and test results. This contains updated information obtained within 48 hours of Surgery/Procedure. SIGNATURE: Claribel Jacobo APRN.CRNA PATIENT NAME: Brittney Alcocer DATE: August 27, 2023 TIME: 3:52 PM CSN: [id number] Normal [facility] CNCOon 08-27-2023 CNCO Letter Text Normal [facility] CNOVon 08-27-2023 CNOV Office Visit ([facility] ) MARIA GUADALUPEBRITTNEY ABURTO ([id number]) 1975 F NFR Date Time Provider Department 08/27/23 9:15 AM SNOW QUICK [facility] During your visit today, we recorded the following information about you: Pulse Blood pressure Weight Height 81/minute 128/72 80.4 kg 1.473 m Snow Quick PA-C 08/27/2023 9:25 AM Signed CHIEF COMPLAINT: Patient presents with: Abdominal Pain: Constipation, nausea/vomiting. Was in ER on the . Pt states her urine has been orange for the past 3 days HPI Brittney Alcocer is a 48 year old female here today for Abdominal Pain (Constipation, nausea/vomiting. Was in ER on the . Pt states her urine has been orange for the past 3 days ) Patient tells me that she has been able to keep anything down besides water since August 16. Notes that she is having constant upper abdominal pain. Vomiting about 3 hours after eating. Notes dysphagia, feels like her throat is very dry. Notes nausea. Note urine is orange. Denies urinary pain. Notes dizziness. CT abd/pelvis 08/17/2023: IMPRESSION: No acute process in the abdomen or pelvis. Last OV with Dr. Mcghee 10/18/2021: ASSESSMENT: Ms. Petar Alcocer is a 46 year old lady with h/o cholecystectomy, chronic smoking, chronic MJ use, partial nephrectomy for clear cell carcinoma (2017), hysterectomy here for evaluation of abdominal pain. EGD/imaging as above - r/o biliary gastropathy. Did not tolerate carafate. Does have post prandial fullness, N/V - r/o gastroparesis, possible component of adhesive bowel from multiple abdominal surgeries. Elevated Alk P/lipase. Denies any abdominal pain. Denies any h/o liver disease. Normal AST/ALT. About 80% of AlkP is release by liver, 20% bones, placenta etc. GGT was normal so unsure if Alkp is from liver origin. AST/ALT and bilirubin are normal as well. Elevated lipase. No known h/o pancreatitis. Denies any recent alcohol use but was heavy when she was young (from age 9-10 to until her 20s). Has h/o right renal cell carcinoma s/p partial nephrectomy. Screen for colon cancer. colonoscopy in [address] Naidu for rectal bleeding. Normal colon- repeat recommended in 10 years. PLAN: Schedule US abdomen. Schedule gastric emptying study. Continue Omeprazole at current doses for now. Start Colestipol 1g po bid. Start Align 4mg po daily. EGD 06/29/2021: Impression: - Z-line irregular, 38 cm from the incisors. - Esophagogastric landmarks identified. - Erythematous mucosa in the prepyloric region of the stomach. Biopsied. - Bilious gastric fluid. - Normal examined duodenum. Biopsied. Recommendation: - Patient has a contact number available for emergencies. The signs and symptoms of potential delayed complications were discussed with the patient. Return to normal activities tomorrow. Written discharge instructions were provided to the patient. - Resume previous diet. - Continue present medications. - Await pathology results. - The patient has taken no previous anticoagulant or antiplatelet agents. - Return to GI clinic as previously scheduled. - Use sucralfate tablets 1 gram PO BID for 2 months. FINAL DIAGNOSIS A. Duodenum, biopsy: - No significant pathologic change. B. Stomach, biopsy: - Mild chronic inactive gastritis. Immunohistochemical stain for Helicobacter pylori pending. Latest Ref Rn 08/17/2023 WBC 3.70 - 11.00 k/uL 7.83 RBC 3.90 - 5.20 m/uL 4.81 Hemoglobin 11.5 - 15.5 g/dL 15.5 Hematocrit 36.0 - 46.0 % 46.0 MCV 80.0 - 100.0 fL 95.6 MCH 26.0 - 34.0 pg 32.2 MCHC 30.5 - 36.0 g/dL 33.7 RDW-CV 11.5 - 15.0 % 13.2 Platelet Count 150 - 400 k/uL 212 MPV 9.0 - 12.7 fL 9.5 Neut% % 76.3 Abs Neut (ANC) 1.45 - 7.50 k/uL 5.97 Lymph% % 14.9 Abs Lymph 1.00 - 4.00 k/uL 1.17 Simpson% % 6.9 Abs Simpson <0.87 k/uL 0.54 Eosin% % 1.4 Abs Eosin <0.46 k/uL 0.11 Baso% % 0.4 Abs Baso <0.11 k/uL 0.03 Immature Gran % % 0.1 IMMATURE GRANS (ABS) <0.10 k/uL <0.03 DTYPE Auto Protein, Total 6.3 - 8.0 g/dL 7.9 Albumin 3.9 - 4.9 g/dL 4.6 Calcium 8.5 - 10.2 mg/dL 9.5 Bilirubin, Total 0.2 - 1.3 mg/dL 0.6 Alkaline Phosphatase 34 - 123 U/L 125 (H) AST 13 - 35 U/L 16 ALT 7 - 38 U/L 14 Glucose 74 - 99 mg/dL 111 (H) BUN 7 - 21 mg/dL 12 Creatinine 0.58 - 0.96 mg/dL 0.86 Sodium 136 - 144 mmol/L 138 Potassium 3.7 - 5.1 mmol/L 4.0 Chloride 98 - 107 mmol/L 102 CO2 22 - 30 mmol/L 23 Anion Gap 8 - 15 mmol/L 13 eGFR >=60 mL/min/1.73m? 83 Lipase 16 - 61 U/L 48 Legend: (H) High Current Outpatient Medications Medication Sig lansoprazole (PREVACID) 30 mg capsule Take 1 capsule by mouth two times a day. mirabegron (MYRBETRIQ) 50 mg Tb24 Take 1 tablet by mouth once daily. rimegepant (NURTEC ODT) 75 mg disintegrating tablet Take 1 tablet at onset of headache/migraine. Only take 1 tablet as single dose in 24 hour period. simvastatin (more content not included)... Normal [facility] CNPNon 08-22-2023 CNPN Telephone (NHMNS2) BRITTNEY ALCOCER ([id number]) 1975 F NFR Date Time Provider Department 08/22/23 YENNY OSMAN [facility] During your visit today, we recorded the following information about you: Jailene Ny 08/22/2023 4:09 PM Signed Prior authorization has been submitted via CoverMyMeds Included clinical notes from 06/12/23. Medication: Nurtec (rimegepant) Dosage/frequency: 75 MG Insurance Name: [facility] Medicare/ [employer] Louise (if available): [id number] Was authorization approved, denied, or still pending? PENDING If approved, effective dates: n/a Jailene Ny 09/20/2023 11:42 AM Signed Received APPROVED from [employer] for Nurtec (rimegepant) by CoverMyMeds Authorization/Denial #: [id number] Approval Dates : 08/22/2023 through 02/16/2024 Allergies As of Date: 08/22/2023 Noted Allergy Reaction CITALOPRAM HYDROBROMIDE 10/27/2004 10 - Anaphylaxis Comments: TACHYCARDIA MORPHINE 01/26/2005 8 - GI Upset AMOXICILLIN 10/24/2004 8 - GI Upset 14 - Other: See Comments Comments: Makes me worse ASA (SALICYLATES) 10/27/2004 4 - Hives CHOCOLATE 10/27/2004 EFFEXOR (VENLAFAXINE HCL) 10/27/2004 11 - Vomiting NAPROXEN 02/16/2006 5 - Intolerance Comments: Depression PENICILLIN G 09/08/2021 8 - GI Upset TAPE (ADHESIVE TAPE-SILICONES) 01/27/2021 14 - Other: See Comments Comments: Rash TOMATO 12/21/2020 5 - Intolerance Comments: If cooked cant tolerate them TRAMADOL 10/24/2004 8 - GI Upset TRAZODONE 08/28/2017 1 - Mental Status Change Comments: Causes hallucinations VENLAFAXINE 12/13/2015 16 - Unknown Date Reviewed: 08/17/2023 Reviewed by: Laura Mijares, RN - Fully Assessed Reason for Visit: Insurance Authorization [[id number]] [facility], [employer]/ [facility] [facility] [Other] Prescriptions as of 09/20/2023 - clindamycin (CLEOCIN) 300 mg capsule Take 1 capsule by mouth three times a day for 7 days. - rimegepant (NURTEC ODT) 75 mg disintegrating tablet Take 1 tablet at onset of headache/migraine. Only take 1 tablet as single dose in 24 hour period. - ondansetron orally disintegrating (ZOFRAN ODT) 4 mg disintegrating tablet dissolve 1 tablet ON TONGUE every 8 hours if needed for nausea OR vomiting - lansoprazole (PREVACID) 30 mg capsule Take 1 capsule by mouth two times a day. - mirabegron (MYRBETRIQ) 50 mg Tb24 Take 1 tablet by mouth once daily. - simvastatin (ZOCOR) 20 mg tablet Take 2 tablets by mouth daily at bedtime. - loratadine (CLARITIN) 10 mg tablet take 1 tablet by mouth once daily - gabapentin (NEURONTIN) 800 mg tablet Take 1 tablet by mouth four times daily for 180 days. - MEDICATION, NON-DATABASE Marijuana for migraines Facility-Administered Medications as of 09/20/2023 - lidocaine (PF) 10 mg/mL (1 %) 1-2 mg injection (XYLOCAINE) - lactated ringers iv infusion - onabotulinum toxin type A 200 Units injection (BOTOX) Problem List As Of Date 08/22/2023 Noted Resolved Supervision of other normal [Z34.80] 01/26/2005 01/06/2016 CELLULITIS FINGER,PARONYCHIA/ONYCH IA [L03.019] 12/12/2005 01/06/2016 Viral warts, unspecified [B07.9] 12/12/2005 01/06/2016 VISUAL LOSS, ONE EYE NOS [H54.60] 09/17/2006 Pain in joint, lower leg [M25.569] 09/08/2011 01/06/2016 Pain in joint, pelvic region and thigh [M25.559]09/08/2011 01/06/2016 Carpal tunnel syndrome, left [G56.02] 05/09/2012 Right knee pain [M25.561] 06/30/2014 Diverticulosis of intestine without bleeding [K*11/10/2015 Amenorrhea, unspecified [N91.2] 07/20/2015 Leiomyoma of uterus, unspecified [D25.9] 10/07/2015 Major depressive disorder, single episode, unsp*06/15/2015 Pain in right shoulder [M25.511] 10/12/2015 Unspecified asthma, uncomplicated [J45.909] 06/15/2015 Gastro-esophageal reflux disease without esopha*12/13/2015 Anxiety [F41.9] 12/13/2015 Left ovarian cyst [N83.202] 12/13/2015 History of drug abuse [F19.11] 12/13/2015 History of migraine [Z86.69] 12/13/2015 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] 12/13/2015 Kidney stone [N20.0] 12/13/2015 History of seizure [Z87.898] 12/13/2015 History of renal cell cancer [Z85.528] 01/06/2016 Renal neoplasm [D49.519] 04/27/2016 Occipital neuralgia of right side [M54.81] 08/15/2016 Eustachian tube dysfunction, bilateral [H69.93] 10/11/2016 Lumbar radiculopathy [M54.16] 10/11/2016 Leg weakness, bilateral [R29.898] 10/11/2016 Chronic bilateral low back pain with bilateral *10/11/2016 Chronic right-sided thoracic back pain [M54.6, *10/11/2016 Paresthesia of bilateral legs [R20.2] 10/11/2016 Osteoarthritis of spine with radiculopathy, lum*12/20/2016 Obesity, Class III, BMI >= 40 (morbid obesity) *01/12/2017 Migraine with aura, not intractable, without st*01/12/2017 Intervertebral disc disorder with radiculopathy* 8 Jaw pain [R68.84] 03/23/2017 Low back pain with left-sided sciatica [M54.42] 03/23/2017 Low back pain with right-sided scia (more content not included)... Normal [facility] Progress Noteon 08-22-2023 Progress Note [facility] [address] [facility] [address] Dept: [phone] Dept PHYSICAL THERAPY EVALUATION Patient Name: Petar Alcocer : 1975 Date of Service: 08/22/2023 Referring Provider: Sabas Reyes DPM Visit #: 1 Diagnosis: Plantar fascial fibromatosis Pain in left foot Pain in right foot General Information Mechanism of injury: Patient presents to therapy s/p unknown left LE surgery on May 17 with bilateral heel pain. Patient reports that the surgery was to relieve pressure in her heel, and she has no restrictions from surgery. Referral does not include any precautions or information on the surgery. She states that she wore a boot for a month after surgery, but has not worn it since. She reports that she continues to experience pressure and pain mainly in her left heel but also occasionally on her right. Prior to the surgery, she had been having issues with heel pain for 8 months. 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 PSHX: Petar has no past surgical history on file. Have you experienced any anxiety or depression?: No Have you experienced thoughts of self-harm or suicidal thoughts?: No Social Determinates of Health Reviewed: Yes Physician follow-up appointment?: Yes, September 17 at 8:40am Subjective Chief Complaint: Bilateral heel pain Pain: Current: 0/10 Best: 0/10 Worst: 100/10 Pain location: wrapping around heels bilaterally, mainly on the left Numbness and Tingling: yes bilaterally, only in heels Symptoms Aggravated by: standing, having her feet up while sitting Symptoms Relieved by: sitting, ice, epsom salt baths, massage Prior Level of Function: no limitations prior to onset of pain Current Level of Function: limitations with standing >1 min with even weight dispersement, stair negotiation, kneeling, cleaning Patient?s Stated Goal: To figure out a good way to relieve some pain Outcome Measures Foot and Ankle Ability Measure (FAAM): 08/22/2023: Objective ANKLE Observation: incisions on dorsal side of foot and around fibular head on left LE are intact and without redness Gait: Antalgic gait favoring the right Transfers: Sit<>stand favoring right side Hip & Knee AROM: WFL Date Recorded: 08/22/2023 Ankle ROM Right Left AROM AROM Ankle Dorsiflexion (DF) 9 7 Ankle Plantarflexion (PF) 49 28 Inversion 22 24 Eversion 22 12 08/22/2023 Lower Extremity Strength Right Left Knee Extension 5-/5* 4+/5 Knee Flexion 5-/5 5-/5 * Ankle Dorsiflexion (DF) 5/5 5/5 Ankle Plantarflexion (PF) 5/5 5/5 Inversion 5/5 5/5 * Eversion 5/5 5/5 * Great Toe Extension 5/5 4+/5 * Palpation: tenderness to palpation around left heel on plantar aspect and at fibular head Assessment Star is a 48 y.o. patient who presents to therapy with bilateral heel pain and is s/p unknown left LE surgery. She demonstrated deficits in left great toe extension, knee flexion and extension strength, limited ankle dorsiflexion AROM bilaterally, limited left ankle plantar flexion AROM, and limited left ankle eversion AROM. Patient would benefit form skilled physical therapy to address above deficits to reduce limitations with standing, kneeling, cleaning, and stair negotiation. An HEP was initiated, instructed, and issued to the patient. Plan of care was discussed with the patient, and she will schedule appointments following insurance approval of visits. Evaluation complexity is low secondary to: patient has 1-2 personal factors and/or comorbidities that will affect plan of care, therapy will be addressing 1-2 elements, and clinical presentation is stable. Body Systems Affected: musculoskeletal and neuromuscular Rehab Potential: [employer] Preferences: demonstration, explanation, and performance Barriers to Rehab: chronicity Goals General/Ortho Patient will be independent with HEP. (Initiated) Start: 08/22/23 Expected End: 09/26/23 Patient will be able to ascend and descend stairs reciprocally without complaint of pain to be able to enter her home safely. (Initiated) Start: 08/22/23 Expected End: 09/26/23 Patient will increase dorsiflexion ROM bilaterally to >/= to 15 degrees to be able to kneel without pain. (Initiated) Start: 08/22/23 Expected End: 09/26/23 Patient will increase strength in knee extension/flexion bilaterally and great toe extension on the left to 5/5 to be able to clean her house pain (more content not included)... [facility] 08-21-[address] [facility] Telephone (LIZET) BRITTNEY ALCOCER ([id number]) 1975 F NFR Date Time Provider Department 08/21/23 CRISTOBAL OTOOLE During your visit today, we recorded the following information about you: Carey Morrison LPN 08/21/2023 10:42 AM Signed Call placed to pt for ED follow up. Pt was in ED on 08/17/2023 for Epigastric pain. Per pt she was told she has a ulcer. Pt is asking for a referral to GI. Also pt states that the Dicyclomine that they gave her on d/c from ED makes her sick to her stomach. Pt has 2-3 days left of medication. Pt states that she take it with food and water. Pt is asking for recommendations on the Dicyclomine. Please advise NILAY Gastelum Kristin C, APRN.CNP 08/21/2023 12:36 PM Signed She can stop dicyclomine. Patient saw Dr Mcghee with [facility] in October 2021, will place referral. Cristobal Otoole APRN.Cristobal Walton APRN.CNP 08/21/2023 12:36 PM Signed Addended by: CRISTOBAL OTOOLE on: 08/21/2023 12:36 PM Modules accepted: Ceasar Walker MA 08/22/2023 7:54 AM Signed Left message on patients voicemail with all information. Ceasar Duncan MA Allergies As of Date: 08/21/2023 Noted Allergy Reaction CITALOPRAM HYDROBROMIDE 10/27/2004 10 - Anaphylaxis Comments: TACHYCARDIA MORPHINE 01/26/2005 8 - GI Upset AMOXICILLIN 10/24/2004 8 - GI Upset 14 - Other: See Comments Comments: Makes me worse ASA (SALICYLATES) 10/27/2004 4 - Hives CHOCOLATE 10/27/2004 EFFEXOR (VENLAFAXINE HCL) 10/27/2004 11 - Vomiting NAPROXEN 02/16/2006 5 - Intolerance Comments: Depression PENICILLIN G 09/08/2021 8 - GI Upset TAPE (ADHESIVE TAPE-SILICONES) 01/27/2021 14 - Other: See Comments Comments: Rash TOMATO 12/21/2020 5 - Intolerance Comments: If cooked cant tolerate them TRAMADOL 10/24/2004 8 - GI Upset TRAZODONE 08/28/2017 1 - Mental Status Change Comments: Causes hallucinations VENLAFAXINE 12/13/2015 16 - Unknown Date Reviewed: 08/17/2023 Reviewed by: Laura Mijares, USHA - Fully Assessed Reason for Visit: Patient Question [8017] Primary Visit Diagnosis:Epigastric pain [R10.13] Order(s):CONSULT TO GASTROENTEROLOGY [9010] Order #: [id number]: 1 FUTURE Prescriptions as of 08/26/2023 - lansoprazole (PREVACID) 30 mg capsule Take 1 capsule by mouth two times a day. - mirabegron (MYRBETRIQ) 50 mg Tb24 Take 1 tablet by mouth once daily. - rimegepant (NURTEC ODT) 75 mg disintegrating tablet Take 1 tablet at onset of headache/migraine. Only take 1 tablet as single dose in 24 hour period. - simvastatin (ZOCOR) 20 mg tablet Take 2 tablets by mouth daily at bedtime. - loratadine (CLARITIN) 10 mg tablet take 1 tablet by mouth once daily - ondansetron orally disintegrating (ZOFRAN ODT) 4 mg disintegrating tablet dissolve 1 tablet ON TONGUE every 8 hours if needed for nausea OR vomiting - gabapentin (NEURONTIN) 800 mg tablet Take 1 tablet by mouth four times daily for 180 days. - MEDICATION, NON-DATABASE Marijuana for migraines Facility-Administered Medications as of 08/26/2023 - onabotulinum toxin type A 200 Units injection (BOTOX) Meds Comments as of 02/07/2014: Problem List As Of Date 08/21/2023 Noted Resolved Supervision of other normal [Z34.80] 01/26/2005 01/06/2016 CELLULITIS FINGER,PARONYCHIA/ONYCH IA [L03.019] 12/12/2005 01/06/2016 Viral warts, unspecified [B07.9] 12/12/2005 01/06/2016 VISUAL LOSS, ONE EYE NOS [H54.60] 09/17/2006 Pain in joint, lower leg [M25.569] 09/08/2011 01/06/2016 Pain in joint, pelvic region and thigh [M25.559]09/08/2011 01/06/2016 Carpal tunnel syndrome, left [G56.02] 05/09/2012 Right knee pain [M25.561] 06/30/2014 Diverticulosis of intestine without bleeding [K*11/10/2015 Amenorrhea, unspecified [N91.2] 07/20/2015 Leiomyoma of uterus, unspecified [D25.9] 10/07/2015 Major depressive disorder, single episode, unsp*06/15/2015 Pain in right shoulder [M25.511] 10/12/2015 Unspecified asthma, uncomplicated [J45.909] 06/15/2015 Gastro-esophageal reflux disease without esopha*12/13/2015 Anxiety [F41.9] 12/13/2015 Left ovarian cyst [N83.202] 12/13/2015 History of drug abuse [F19.11] 12/13/2015 History of migraine [Z86.69] 12/13/2015 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] 12/13/2015 Kidney stone [N20.0] 12/13/2015 History of seizure [Z87.898] 12/13/2015 History of renal cell cancer [Z85.528] 01/06/2016 Renal neoplasm [D49.519] 04/27/2016 Occipital neuralgia of right side [M54.81] 08/15/2016 Eustachian tube dysfunction, bilateral [H69.93] 10/11/2016 Lumbar radiculopathy [M54.16] 10/11/2016 Leg weakness, bilateral [R29.898] 10/11/2016 Chronic bilateral low back pain with bilateral *10/11/2016 Chronic right-sided thoracic back pain [M54.6, *10/11/2016 Paresthesia of bilateral legs [R20.2] 10/11/2016 Osteoarthritis of spine with radiculopathy, lum*12/20/2016 Obesity, Class III, BMI (more content not included)... Normal [facility] ALLIED HEALTHon 08-17-2023 ALLIED HEALTH HNO ID: [id number] Author: SHARON DOMINIQUE TECHNOLOGIST Service: Radiology Author Type: Technologist Type: Allied Health Filed: 08/17/2023 22:22 Note Text: Radiology Service Progress Note DATE OF SERVICE: August 17, 2023 TIME: 10:22 PM PATIENT IDENTITY VERIFICATION COMPLETED USING TWO (2) STANDARD IDENTIFIERS: Name and Date of confirmed by patient verbally and Name and Date of confirmed by identification band. FALL SCREENING: Has the patient had 2 falls in the last year or 1 fall with injury or currently using an Ambulatory Assistive Device (Walker, Cane, Wheelchair, Crutches, etc.)? Emergency Room Patient: Screened in ED PATIENT GENDER DATA: Female. status: : No status: NO. PATIENT RELEVANT IMPLANT DATA REVIEWED: Yes PATIENT PRESENTS WITH AN IMPLANTABLE OR ATTACHED LOCAL FLATBED DRIVER: No ALLERGIES: Reviewed and unchanged CONTRAST ALLERGY: NO. EXAM: CT -CONTRAST INDUCED NEPHROPATHY RISK FACTORS: History of Kidney surgery, Kidney neoplasm, Liver disease, and/or any recent Nephrotoxic Chemotherapy or other Nephrotoxic medications CREATININE: Creatinine Date Value Ref Range Status 08/17/2023 0.86 0.58 - 0.96 mg/dL Final 03/27/2023 0.76 0.58 - 0.96 mg/dL Final 09/18/2022 0.84 0.58 - 0.96 mg/dL Final Estimated Glomerular Filtration Rate Date Value Ref Range Status 08/17/2023 83 >=60 mL/min/1.73m? Final Comment: Estimated Glomerular Filtration Rate (eGFR) is calculated using the 2020 CKD-EPI creatinine equation. This equation utilizes serum creatinine, sex, and age as parameters. The creatinine assay has traceable calibration to isotope dilution-mass spectrometry. Refer to KDIGO guidelines for clinical interpretation. In patients with unstable renal function, e.g. those with acute kidney injury, the eGFR may not accurately reflect actual GFR. eGFR- Date Value Ref Range Status 12/21/2020 >60 Final P.O.C.T. RESULTS: POC done: Yes, See Lab Tab August 17, 2023 TREATMENT: N/A PERIPHERAL IV DATA: Inpatient - refer to [facility] documentation RADIOLOGY DEPARTMENT: CT; Exam(s) Completed: Abdomen/Pelvis SIGNATURE: Sharon Dominique TECHNOLOGIST PATIENT NAME: Brittney Alcocer DATE: August 17, 2023 TIME: 10:22 PM Normal [facility] CBC W Auto Differential pane l (Bld)on 08-17-2023 Basophils (Bld) [#/Vol] 0.03 10*3/uL Normal <0.11 [facility] Comment on above: Order Comment: Speci men Type: BLOOD SPECIMENOrdering Facility: [facility] Address: [address] [place] [address] Performed By: #### 5 7021-8 ####[facility] LABCLIA [id number] [place] [address] [place] Basophils/100 WBC (Bld) 0.4 % Normal A [facility] Comment on above: Order Comment: Speci men Type: BLOOD SPECIMENOrdering Facility: [facility] Address: [address] [place] [address] Performed By: #### 5 7021-8 ####[facility] [place] LABCLIA [id number] [place] [address] [facility] Differential cell count method Nom (Bld) Auto Normal [facility] Comment on above: Order Comment: Speci men Type: BLOOD SPECIMENOrdering Facility: [facility] Address: [address] [place] [address] Performed By: #### 5 7021-8 ####[facility] [place] LABCLIA [id number] [place] [address] [place] Eosinophils (Bld) [#/Vol] 0.11 10*3/uL Normal <0.46 [facility] Comment on above: Order Comment: Speci men Type: BLOOD SPECIMENOrdering Facility: [facility] Address: [address] [place] [address] Performed By: #### 5 7021-8 ####[facility] [place] LABCLIA [id number] [place] [address] [facility] Eosinophils/100 WBC (Bld) 1.4 % Normal [facility] Comment on above: Order Comment: Speci men Type: BLOOD SPECIMENOrdering Facility: [facility] Address: [address] [place] [address] Performed By: #### 5 7021-8 ####[facility] [place] LABCLIA [id number] [place] [address] [place] [facility] Erythrocyte distribution width (RBC) [Ratio] 13.2 % Normal 11.5-15.0 [facility] Comment on above: Order Comment: Speci men Type: BLOOD SPECIMENOrdering Facility: [facility] Address: [address] [place] [address] Performed By: #### 5 7021-8 ####[facility] [place] LABCLIA [id number] [place] [address] [facility] Hematocrit (Bld) [Volume fraction] 46.0 % Normal 36.0-46.0 [facility] Comment on above: Order Comment: Speci men Type: BLOOD SPECIMENOrdering Facility: [facility] Address: [address] [place] [address] Performed By: #### 5 7021-8 ####[facility] [place] LABCLIA [id number] [facility] [address] [place] Hemoglobin (Bld) [Mass/Vol] 15.5 g/dL Normal 11.5-15.5 [facility] Comment on above: Order Comment: Speci men Type: BLOOD SPECIMENOrdering Facility: [facility] Address: [address] [place] [address] Performed By: #### 5 7021-8 ####[facility] [place] LABCLIA [id number] [facility] [address] [place] Immature granulocytes (Bld) [#/Vol] 10*3/uL Normal <0.10 [facility] Comment on above: Order Comment: Speci men Type: BLOOD SPECIMENOrdering Facility: [facility] Address: [address] [place] [address] Performed By: #### 5 7021-8 ####[facility] [place] LABCLIA [id number] [place] [address] [place] Immature granulocytes/100 WBC (Bld) 0.1 % Normal [facility] Comment on above: Order Comment: Speci men Type: BLOOD SPECIMENOrdering Facility: [facility] Address: [address] [place] [address] Performed By: #### 5 7021-8 ####[facility] [place] LABCLIA [id number] [place] [address] [place] Lymphocytes (Bld) [#/Vol] 1.17 10*3/uL Normal 1.00-4.00 [facility] Comment on above: Order Comment: Speci men Type: BLOOD SPECIMENOrdering Facility: [facility] Address: [address] [place] [address] Performed By: #### 5 7021-8 ####[facility] [place] LABCLIA [id number] [facility] [address] [place] Lymphocytes/100 WBC (Bld) 14.9 % Normal [facility] Comment on above: Order Comment: Speci men Type: BLOOD SPECIMENOrdering Facility: [facility] Address: [address] [place] [address] Performed By: #### 5 7021-8 ####[facility] [place] LABCLIA [id number] [place] [address] [facility] MCH (RBC) [Entitic mass] 32.2 pg Normal 26.0-34.0 [facility] Comment on above: Order Comment: Speci men Type: BLOOD SPECIMENOrdering Facility: [facility] Address: [address] [place] [address] Performed By: #### 5 7021-8 ####[facility] [place] LABCLIA [id number] [place] [address] [facility] MCHC (RBC) [Mass/Vol] 33.7 g/dL Normal 30.5-36.0 [facility] Comment on above: Order Comment: Speci men Type: BLOOD SPECIMENOrdering Facility: [facility] Address: [address] [place] [address] Performed By: #### 5 7021-8 ####[facility] LABCLIA [id number] [address] MCV (RBC) [Entitic vol] 95.6 fL Normal 80.0-100.[address] [facility] Comment on above: Order Comment: Speci men Type: BLOOD SPECIMENOrdering Facility: [facility] Address: [address] [place] [address] Performed By: #### 5 7021-8 ####[facility] [place] LABCLIA [id number] [place] [id number] [facility] Monocytes (Bld) [#/Vol] 0.54 10*3/uL Normal <0.87 [facility] Comment on above: Order Comment: Speci men Type: BLOOD SPECIMENOrdering Facility: [facility] Address: [address] [place] [address] Performed By: #### 5 7021-8 ####[facility] [place] LABCLIA [id number] [place] [address] [place] Monocytes/100 WBC (Bld) 6.9 % Normal A [facility] Comment on above: Order Comment: Speci men Type: BLOOD SPECIMENOrdering Facility: [facility] Address: [address] [place] [address] Performed By: #### 5 7021-8 ####[facility] [place] LABCLIA [id number] [place] [address] [place] Neutrophils (Bld) [#/Vol] 5.97 10*3/uL Normal 1.45-7.50 [facility] Comment on above: Order Comment: Speci men Type: BLOOD SPECIMENOrdering Facility: [facility] Address: [address] [place] [address] Performed By: #### 5 7021-8 ####[facility] [place] LABCLIA [id number] [place] [address] [place] Neutrophils/100 WBC (Bld) 76.3 % Normal [facility] Comment on above: Order Comment: Speci men Type: BLOOD SPECIMENOrdering Facility: [facility] Address: [address] [place] [address] Performed By: #### 5 7021-8 ####[facility] [place] LABCLIA [id number] [facility] [address] [place] Nucleated RBC (Bld) [#/Vol] Normal [facility] Comment on above: Order Comment: Speci men Type: BLOOD SPECIMENOrdering Facility: [facility] Address: [address] [place] [address] Performed By: #### 5 7021-8 ####[facility] [place] LABCLIA [id number] [facility] [address] [place] Nucleated RBC/100 WBC (Bld) [Ratio] Normal [facility] Comment on above: Order Comment: Speci men Type: BLOOD SPECIMENOrdering Facility: [facility] Address: [address] [place] [address] Performed By: #### 5 7021-8 ####[facility] [place] LABCLIA [id number] [place] [address] [place] Platelet mean volume (Bld) [Entitic vol] 9.5 fL Normal 9.0-12.7 [facility] Comment on above: Order Comment: Speci men Type: BLOOD SPECIMENOrdering Facility: [facility] Address: [address] [place] [address] Performed By: #### 5 7021-8 ####[facility] [place] LABCLIA [id number] [place] [address] [place] Platelets (Bld) [#/Vol] 212 10*3/uL Normal 150-400 [facility] Comment on above: Order Comment: Speci men Type: BLOOD SPECIMENOrdering Facility: [facility] Address: [address] [place] [address] Performed By: #### 5 7021-8 ####[facility] [place] LABCLIA [id number] [place] [address] [place] RBC (Bld) [#/Vol] 4.81 10*6/uL Normal 3.90-5.20 [facility] Comment on above: Order Comment: Speci men Type: BLOOD SPECIMENOrdering Facility: [facility] Address: [address] [place] [address] Performed By: #### 5 7021-8 ####[facility] [place] LABCLIA [id number] [place] [address] [place] WBC (Bld) [#/Vol] 7.83 10*3/uL Normal 3.70-11.00 [facility] Comment on above: Order Comment: Speci men Type: BLOOD SPECIMENOrdering Facility: [facility] Address: [address] [place] [address] Performed By: #### 5 7021-8 ####[facility] [place] LABCLIA [id number] [place] [address] [facility] [place] CT ABD/PEL W IVCONon 024 CT ABD/PEL W IVCON * * *Final Report* * * DATE OF EXAM: Aug 17 2023 10:21PM [facility] 0530 - CT ABD/PEL W IVCON / PROCEDURE REASON: Nausea/vomiting * * * * Physician Interpretation * * * * EXAMINATION: CT ABDOMEN AND PELVIS WITH IV CONTRAST CLINICAL HISTORY: Right-sided abdominal pain. TECHNIQUE: CT of the abdomen and pelvis was performed using standard technique, scanning from just above the dome of the diaphragm to the symphysis pubis. MQ: CTAP_3 Contrast: IV: 100 ml of Omnipaque 350 CT Radiation dose: Integrated Dose-length product (DLP) for this visit = 881.34 mGy*cm. CT Dose Reduction Employed: Automated exposure control(AEC) and iterative recon COMPARISON: CT abdomen and pelvis 09/05/2021. RESULT: Liver: No mass. Biliary: No bile duct dilation. Gallbladder is absent. Spleen: No mass. No splenomegaly. Pancreas: No mass or duct dilation. Adrenals: No mass. Kidneys: Postsurgical changes of a partial right nephrectomy. No hydronephrosis. GI tract: No dilation or wall thickening. Normal appendix. Lymph nodes: No abdominal or pelvic lymphadenopathy. Mesentery/Peritoneum: No ascites or mass. Retroperitoneum: No mass. Vasculature: - Abdominal aorta and iliac arteries: No aneurysm. - Celiac and SMA: Patent without stenosis. - Portal venous system (SMV, splenic vein, portal vein and branches): Patent. - Hepatic veins: Patent. Pelvis: Urinary bladder is largely decompressed. Uterus is absent. Bones/Soft Tissues: No significant finding. Lower thorax: Unremarkable. Localizer images: No additional findings. IMPRESSION: No acute process in the abdomen or pelvis. Brick Picker: PSCB Transcribe Date/Time: Aug 17 2023 10:50P Dictated by : TAYLOR SIMON MD This examination was interpreted and the report reviewed and electronically signed by: TAYLOR SIMON MD on Aug 17 2023 10:56PM EST [id number] Normal [facility] Comprehensive metabolic 2000 panelon 08-17-2023 Albumin [Mass/Vol] 4.6 g/dL Normal 3.9-4.9 [facility] Comment on above: Order Comment: Speci men Type: BLOOD SPECIMENOrdering Facility: [facility] Address: [address] [place] [address] Performed By: #### 3 040-3, ####[facility] [place] LABCLIA [id number] [place] [address] [place] [facility] ALP [Catalytic activity/Vol] 125 U/L High 34-123 [facility] Comment on above: Order Comment: Speci men Type: BLOOD SPECIMENOrdering Facility: [facility] Address: [address] [place] [address] Performed By: #### 3 040-3, ####[facility] [place] LABCLIA [id number] [place] [address] [place] [facility] ALT With P-5'-P [Catalytic activity/Vol] 14 U/L Normal 7-38 [facility] Comment on above: Order Comment: Speci men Type: BLOOD SPECIMENOrdering Facility: [facility] Address: [address] [place] [address] Performed By: #### 3 040-3, 20968-8 ####[facility] [place] LABCLIA [id number] [place] [address] [place] [facility] Anion gap [Moles/Vol] 13 mmol/L Normal 8-15 [facility] Comment on above: Order Comment: Speci men Type: BLOOD SPECIMENOrdering Facility: [facility] Address: [address] [place] [address] Performed By: #### 3 040-3, 50520-2 ####[facility] [place] LABCLIA [id number] [place] [address] [place] AST With P-5'-P [Catalytic activity/Vol] 16 U/L Normal 13-35 [facility] Comment on above: Order Comment: Speci men Type: BLOOD SPECIMENOrdering Facility: [facility] Address: [address] [place] [address] Performed By: #### 3 3, ####[facility] [place] LABCLIA [id number] [place] [address] [place] Bilirubin [Mass/Vol] 0.6 mg/dL Normal 0.2-1.3 [facility] Comment on above: Order Comment: Speci men Type: BLOOD SPECIMENOrdering Facility: [facility] Address: [address] [place] [address] Performed By: #### 3 -3, ####[facility] [place] LABCLIA [id number] [place] [address] [place] Calcium [Mass/Vol] 9.5 mg/dL Normal 8.5-10.2 [facility] Comment on above: Order Comment: Speci men Type: BLOOD SPECIMENOrdering Facility: [facility] Address: [address] [place] [address] Performed By: #### 3 , ####[facility] [place] LABCLIA [id number] [place] [address] [place] Chloride [Moles/Vol] 102 mmol/L Normal 98-107 [facility] Comment on above: Order Comment: Speci men Type: BLOOD SPECIMENOrdering Facility: [facility] Address: [address] [place] [address] Performed By: #### 3 3, ####[facility] [place] LABCLIA [id number] [place] [address] [place] CO2 [Moles/Vol] 23 mmol/L Normal 22-30 [facility] Comment on above: Order Comment: Speci men Type: BLOOD SPECIMENOrdering Facility: [facility] Address: [address] [place] [address] Performed By: #### 3 3, 74837-6 ####[facility] [place] LABCLIA [id number] [place] [address] [place] Creatinine [Mass/Vol] 0.86 mg/dL Normal 0.58-0.96 [facility] Comment on above: Order Comment: Julisa stein Type: BLOOD SPECIMENOrdering Facility: [facility] Address: [address] [place] [address] Performed By: #### 3 040-3, 83637-2 ####[facility] LABCLIA [id number] [place] [address] [place] Creatinine and Glomerular filtration rate.predicted panel (S/P/Bld) 83 mL/min/1.73m??? Normal >=60 [facility] Comment on above: Order Comment: Julisa stein Type: BLOOD SPECIMENOrdering Facility: [facility] Address: [address] [place] [address] Result Comment: Katelyn mated Glomerular Filtration Rate (eGFR) is calculated using the 2020 CKD-EPI creatinine equation. This equation utilizes serum creatinine, sex, and age as parameters. The creatinine assay has traceable calibration to isotope dilution-mass spectrometry. Refer to KDIGO guidelines for clinical interpretation. In patients with unstable renal function, e.g. those with acute kidney injury, the eGFR may not accurately reflect actual GFR. Performed By: #### 3 040-3, 91787-6 ####[facility] LABIA [id number] [place] [id number] [place] Glucose [Mass/Vol] 111 mg/dL High 74-99 [facility] Comment on above: Order Comment: Julisa stein Type: BLOOD SPECIMENOrdering Facility: [facility] Address: [address] [place] [address] Result Comment: The [place] Diabetes Association (ADA) provides guidance for cutoff values for fasting glucose and random glucose. The ADA defines fasting as no caloric intake for at least 8 hours. Fasting plasma glucose results between 100 to 125 mg/dL indicate increased risk for diabetes (prediabetes). Fasting plasma glucose results greater than or equal to 126 mg/dL meet the criteria for diagnosis of diabetes. In the absence of unequivocal hyperglycemia, results should be confirmed by repeat testing. In a patient with classic symptoms of hyperglycemia or hyperglycemic crisis, random plasma glucose results greater than or equal to 200 mg/dL meet the criteria for diagnosis of diabetes. Reference: Standards of Medical Care in Diabetes 2016, [place] Diabetes Association. Diabetes Care. 2016.39(Suppl 1). Performed By: #### 3 040-3, 07990-4 ####[facility] [place] LABCLIA [id number] [facility] [address] [place] Potassium [Moles/Vol] 4.0 mmol/L Normal 3.7-5.1 [facility] Comment on above: Order Comment: Speci men Type: BLOOD SPECIMENOrdering Facility: [facility] Address: [address] [place] [address] Performed By: #### 3 040-3, 29068-4 ####[facility] [place] LABCLIA [id number] [facility] [address] [place] Protein [Mass/Vol] 7.9 g/dL Normal 6.3-8.0 [facility] Comment on above: Order Comment: Speci men Type: BLOOD SPECIMENOrdering Facility: [facility] Address: [address] [place] [address] Performed By: #### 3 040-3, 42739-0 ####[facility] LABCLIA [id number] [facility] [address] [place] Sodium [Moles/Vol] 138 mmol/L Normal 136-144 [facility] Comment on above: Order Comment: Speci men Type: BLOOD SPECIMENOrdering Facility: [facility] Address: [address] [place] [address] Performed By: #### 3 040-3, 22274-4 ####[facility] [place] LABCLIA [id number] [facility] [address] [place] Urea nitrogen [Mass/Vol] 12 mg/dL Normal 7-21 [facility] Comment on above: Order Comment: Speci men Type: BLOOD SPECIMENOrdering Facility: [facility] Address: [address] [place] [address] Performed By: #### 3 040-3, 99178-8 ####[facility] [place] LABCLIA [id number] [facility] [address] [place] ECG COMPLETEon 07-12-2024 ECG COMPLETE Ventricular Rate : 6 3 BPM Atrial Rate : 63 BPM P-R Interval : 158 ms QRS Duration : 88 ms Q-T Interval : 380 ms QTC Calculation(Bazett) : 388 ms Calculated P [place] : 37 degrees Calculated R [place] : 35 degrees Calculated T [place] : 37 degrees NORMAL SINUS RHYTHM NORMAL ECG WHEN COMPARED WITH ECG OF 10-May-2021 09:42, NO SIGNIFICANT CHANGE WAS FOUND Confirmed by MD LYNN VINAYAK ([id number]) on 08/19/2023 12:53:31 PM NAME : BRITTNEY ALCOCER PID : [id number] : 1975 Gender : Female Race : ORD : [id number] Procedure Date : Aug 17 2023 23:26:37 Edit Date : Aug 19 2023 12:53:33 Diagnosis: NORMAL SINUS RHYTHM NORMAL ECG WHEN COMPARED WITH ECG OF 10-May-2021 09:42, NO SIGNIFICANT CHANGE WAS FOUND Confirmed by MD LYNN VINAYAK ([id number]) on 08/19/2023 12:53:31 PM Test Reason : epigastric Location : 191 : LDCARD ED Overread By : MD LYNN VINAYAK Edited By : MD LYNN VINAYAK Referred By : , Acquired by : MANJU SINGH [facility] ED NOTEon 08-17-2023 ED NOTE HNO ID: [id number] Author: LAURA MIJARES, RN Service: Emergency Medicine Author Type: Registered Nurse Type: ED Notes Filed: 08/17/2023 20:24 Note Text: Pt to ED with c/o upper abd pain x 24 hours. Normal [facility] ED PROV NOTEon 08-17-2023 ED PROV NOTE HNO ID: [id number] Author: ISHAAN CEJA MD Service: Emergency Medicine Author Type: Physician Type: ED Provider Notes Filed: 08/18/2023 06:09 Note Text: ED Provider Note Patient Name: Brittney Alcocer : 1975 SERVICE DATE: 08/17/23 History Patient presents with: Abdominal Pain Patient presenting to the emergency room for evaluation of abdominal pain described as frontal and right flank. States symptoms started yesterday, and she tried an ice pack on the front and the back today without relief of her symptoms. She had 1 episode of emesis this morning with a small litzy of blood in it. No blood in her stools or tarry black stools. Bowel movements been normal with the last one earlier today. Endorses history of renal cancer, but not active, history of hysterectomy and cholecystectomy. States that she has had pain like this before but it typically resolves on its own. Rates pain 9 out of 10. No rashes or wounds. No excessive NSAID usage or alcohol abuse. No falls or trauma. No concerns for STDs or STIs. Denies other acute sick symptoms. 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 SYNDROME Unspecified asthma(493.90) occasional inhaler Urinary calculus, unspecified 12/2005 Renal stones: left kidney per CT PAST SURGICAL HISTORY Procedure Laterality Date BLADDER SURGERY HX 08/02/2020 Cystoscopy and Sling CARPAL TUNNEL Left 10/12/2016 Dr. Conner DELIVERY ONLY 1994 , low cervical DELIVERY ONLY 07/26/2005 , low cervical CHOLECYSTECTOMY 1995 COLONOSCOPY 09/03/2017 D. Evangelista. NORMAL. Repeat in 10 years. DILATION AND CURETTAGE DXAND/THER NONOBSTETRIC 2015 Dilation AND curettage X 2 EGD 02/25/2010 Abnormal LES, esophagitis, antral ulcers, retained fluid in stomach, pos H Pylori EGD 04/14/2008 antral gastritis, neg h Pylori EGD W/O BRSH SPEC VARICIES INJ 2021 EGD W/O BRSH SPEC VARICIES INJ 06/29/2021 LAPAROSCOPY SURG CHOLECYSTECTOMY PAST SURGICAL HISTORY OF 2006 REMOVAL OF FATTY TUMOR FROM R ARM PAST SURGICAL HISTORY OF 2007 Carpal Tunnel Surgery on right wrist PAST SURGICAL HISTORY OF 09/27/2012 left wrist carpal tunnel release PAST SURGICAL HISTORY OF Right 2017 partial nephrectomy VAGINAL HYSTERECTOMY 12/24/2019 WART REMOVAL WHI Right 09/03/2018 Removal of wart on third finger right hand - Dr. Herrera FAMILY HISTORY Problem Relation Age of Onset Hypertension Mother Psychiatry Mother DEPRESSION other (Sophia's Chorea) Mother other (Other) Sister stillborn other (Heart Disease) Maternal Grandfather other (Down Syndrome) Paternal Grandfather other (Centre's Chorea) Brother ADD/ADHD Son other (Rosacea) Son other (Gallbladder disease) Son Asthma Son Colon Cancer No Family History Social History Tobacco Use Smoking status: Every Day Packs/day: 0.50 Years: 36.00 Additional pack years: 0.00 Total pack years: 18.00 Types: Cigarettes Smokeless tobacco: Never Tobacco comments: uses marijuana Vaping Use Vaping Use: current everyday user Substance and Sexual Activity Alcohol use: Not Currently Drug use: Yes Frequency: 7.0 times per week Types: Marijuana Comment: for migraines-THC daily, h/o crack in 1998 Sexual activity: Not Currently Partners: Male control/protection: None ALLERGIES Allergen Reactions Citalopram Hydrobro* Anaphylaxis TACHYCARDIA Morphine GI Upset Amoxicillin GI Upset, Other: See Comments Makes me worse Asa [Salicylates] Hives Chocolate Effexor [Venlafaxin* Vomiting Naproxen Intolerance Depression Penicillin G GI Upset Tape [Adhesive Tape* Other: See Comments Rash Tomato Intolerance If cooked cant tolerate them Tramadol GI Upset Trazodone Mental Status Change Causes hallucinations Venlafaxine Unknown Review of Systems Constitutional: Negative for activity change, chills and fever. HENT: Negative for ear discharge and ear pain. Eyes: Negative for pain and discharge. Respirator (more content not included)... Normal [facility] Lipase SerPl-cCncon 08-17-19 24 Lipase [Catalytic activity/Vol] 48 U/L Normal 16-61 [facility] Comment on above: Order Comment: Speci men Type: BLOOD SPECIMENOrdering Facility: [facility] Address: [address] [place] [address] Performed By: #### 3 040-3, 00814-0 ####[facility] [place] LABCLIA [id number] [place] [address] [facility] Urinalysis complete panel (U )on 08-17-2023 Bacteria LM.HPF (Urine sed) [#/Area] Many Abnormal None Seen [facility] Comment on above: Order Comment: Speci men Type: URINE SPECIMENOrdering Facility: [facility] Address: [address] [place] [address] Performed By: #### 2 4356-8 ####[facility] [place] LABCLIA [id number] [place] [address] [facility] Bilirubin Ql (U) Negative Normal Negative [facility] Comment on above: Order Comment: Speci men Type: URINE SPECIMENOrdering Facility: [facility] Address: [address] [place] [address] Performed By: #### 2 4356-8 ####[facility] LABCLIA [id number] [place] [address] [facility] Clarity (Unsp spec) Clear Normal Clear [facility] Comment on above: Order Comment: Speci men Type: URINE SPECIMENOrdering Facility: [facility] Address: [address] [place] [address] Performed By: #### 2 4356-8 ####[facility] LABCLIA [id number] [place] [address] [facility] Color (U) Yellow Normal Yellow [facility] Comment on above: Order Comment: Speci men Type: URINE SPECIMENOrdering Facility: [facility] Address: [address] [place] [address] Performed By: #### 2 4356-8 ####[facility] [place] LABCLIA [id number] [place] [address] [facility] [place] Epithelial cells LM.HPF (Urine sed) [#/Area] Few Normal [facility] Comment on above: Order Comment: Speci men Type: URINE SPECIMENOrdering Facility: [facility] Address: [address] [place] [address] Performed By: #### 2 4356-8 ####[facility] [place] LABCLIA [id number] [place] [address] [facility] [place] Glucose Test strip (U) [Mass/Vol] Negative Normal Negative [facility] Comment on above: Order Comment: Speci men Type: URINE SPECIMENOrdering Facility: [facility] Address: [address] [place] [address] Performed By: #### 2 4356-8 ####[facility] [place] LABCLIA [id number] [place] [address] [place] Hemoglobin Ql (U) Negative Normal Negative [facility] Comment on above: Order Comment: Speci men Type: URINE SPECIMENOrdering Facility: [facility] Address: [address] [place] [address] Performed By: #### 2 4356-8 ####[facility] [place] LABCLIA [id number] [facility] [place] [address] [place] Ketones Ql (U) Negative Normal Negative [facility] Comment on above: Order Comment: Speci men Type: URINE SPECIMENOrdering Facility: [facility] Address: [address] [place] [address] Performed By: #### 2 4356-8 ####[facility] [place] LABCLIA [id number] [facility] [place] [address] [place] Leukocyte esterase Test strip Ql (U) Negative Normal Negative [facility] Comment on above: Order Comment: Speci men Type: URINE SPECIMENOrdering Facility: [facility] Address: [address] [place], [place] [address] Performed By: #### 2 4356-8 ####[facility] [place] LABCLIA [id number] [facility] [address] [place] Nitrite Ql (U) Negative Normal Negative [facility] Comment on above: Order Comment: Speci men Type: URINE SPECIMENOrdering Facility: [facility] Address: [address] [place] [address] Performed By: #### 2 4356-8 ####[facility] LABCLIA [id number] [place] [address] [place] pH (U) 6.5 [pH] Normal 5.0-8.0 [facility] Comment on above: Order Comment: Speci men Type: URINE SPECIMENOrdering Facility: [facility] Address: [address] [place] [address] Performed By: #### 2 4356-8 ####[facility] LABCLIA [id number] [place] [address] [place] Protein (U) [Mass/Vol] Negative Normal Negative [facility] Comment on above: Order Comment: Speci men Type: URINE SPECIMENOrdering Facility: [facility] Address: [address] [place] [address] Performed By: #### 2 4356-8 ####[facility] LABCLIA [id number] [place] [id number] [place] RBC LM.HPF (Urine sed) [#/Area] 0-3 /HPF Normal 0-3 /HPF [facility] Comment on above: Order Comment: Speci men Type: URINE SPECIMENOrdering Facility: [facility] Address: [address] [place] [address] Performed By: #### 2 4356-8 ####[facility] LABCLIA [id number] [place] [address] [place] Specific gravity (U) [Rel density] 1.025 Normal 1.005-1.030 [facility] Comment on above: Order Comment: Speci men Type: URINE SPECIMENOrdering Facility: [facility] Address: [address] [place] [address] Performed By: #### 2 4356-8 ####[facility] LABCLIA [id number] [place] [address] [facility] [place] Urobilinogen Ql (U) 0.2 EU/dL Normal 0.2-1.0 EU/dL [facility] Comment on above: Order Comment: Speci men Type: URINE SPECIMENOrdering Facility: [facility] Address: [address] [place], [place] [address] Performed By: #### 2 4356-8 ####[facility] LABCLIA [id number] [place] [address] [facility] WBC LM.HPF (Urine sed) [#/Area] 0-5 /HPF Normal 0-5 /HPF [facility] Comment on above: Order Comment: Speci men Type: URINE SPECIMENOrdering Facility: [facility] Address: [address] [place], [place] [address] Performed By: #### 2 4356-8 ####[facility] [place] LABCLIA [id number] [place] [id number] [facility] SRIKANTH Telephone (AGFAMPLE) BRITTNEY ALCOCER ([id number]) 1975 F NFR Date Time Provider Department 08/03/23 CRISTOBAL OTOOLE During your visit today, we recorded the following information about you: Camille Espinoza MA 08/03/2023 9:04 AM Signed ----- Message from Cristobal Otoole APRN.GASOLINE LOCOMOTIVE CRANE OPERATOR sent at 08/02/2023 11:06 PM EDT ----- Mild arthritis in the spine. CAT Wylie Janie, MA 08/03/2023 9:07 AM Signed Left message requesting patient call office back for results. Kyleigh message also sent with results. Camille Espinoza MA Allergies As of Date: 08/03/2023 Noted Allergy Reaction CITALOPRAM HYDROBROMIDE 10/27/2004 10 - Anaphylaxis Comments: TACHYCARDIA MORPHINE 01/26/2005 8 - GI Upset AMOXICILLIN 10/24/2004 8 - GI Upset 14 - Other: See Comments Comments: Makes me worse ASA (SALICYLATES) 10/27/2004 4 - Hives CHOCOLATE 10/27/2004 EFFEXOR (VENLAFAXINE HCL) 10/27/2004 11 - Vomiting NAPROXEN 02/16/2006 5 - Intolerance Comments: Depression PENICILLIN G 09/08/2021 8 - GI Upset TAPE (ADHESIVE TAPE-SILICONES) 01/27/2021 14 - Other: See Comments Comments: Rash TOMATO 12/21/2020 5 - Intolerance Comments: If cooked cant tolerate them TRAMADOL 10/24/2004 8 - GI Upset TRAZODONE 08/28/2017 1 - Mental Status Change Comments: Causes hallucinations VENLAFAXINE 12/13/2015 16 - Unknown Date Reviewed: 07/20/2023 Reviewed by: Paulino Rae PA-C - Fully Assessed Reason for Visit: Xray Results [439] Prescriptions as of 08/03/2023 - mirabegron (MYRBETRIQ) 50 mg Tb24 Take 1 tablet by mouth once daily. - rimegepant (NURTEC ODT) 75 mg disintegrating tablet Take 1 tablet at onset of headache/migraine. Only take 1 tablet as single dose in 24 hour period. - simvastatin (ZOCOR) 20 mg tablet Take 2 tablets by mouth daily at bedtime. - divalproex ER (DEPAKOTE ER) 500 mg 24 hr tablet Take 2 tablets by mouth once daily for 5 days, THEN 1 tablet once daily for 5 days. - loratadine (CLARITIN) 10 mg tablet take 1 tablet by mouth once daily - ondansetron orally disintegrating (ZOFRAN ODT) 4 mg disintegrating tablet dissolve 1 tablet ON TONGUE every 8 hours if needed for nausea OR vomiting - gabapentin (NEURONTIN) 800 mg tablet Take 1 tablet by mouth four times daily for 180 days. - lansoprazole (PREVACID) 30 mg capsule Take 1 capsule by mouth once daily. - albuterol HFA (PROVENTIL HFA, VENTOLIN HFA) 90 mcg/actuation inhaler Inhale 2 Puffs as instructed every 4 hours as needed for wheezing/shortness of breath. - MEDICATION, NON-DATABASE Marijuana for migraines Facility-Administered Medications as of 08/03/2023 - onabotulinum toxin type A 200 Units injection (BOTOX) Meds Comments as of 02/07/2014: Problem List As Of Date 08/03/2023 Noted Resolved Supervision of other normal [Z34.80] 01/26/2005 01/06/2016 CELLULITIS FINGER,PARONYCHIA/ONYCH IA [L03.019] 12/12/2005 01/06/2016 Viral warts, unspecified [B07.9] 12/12/2005 01/06/2016 VISUAL LOSS, ONE EYE NOS [H54.60] 09/17/2006 Pain in joint, lower leg [M25.569] 09/08/2011 01/06/2016 Pain in joint, pelvic region and thigh [M25.559]09/08/2011 01/06/2016 Carpal tunnel syndrome, left [G56.02] 05/09/2012 Right knee pain [M25.561] 06/30/2014 Diverticulosis of intestine without bleeding [K*11/10/2015 Amenorrhea, unspecified [N91.2] 07/20/2015 Leiomyoma of uterus, unspecified [D25.9] 10/07/2015 Major depressive disorder, single episode, unsp*06/15/2015 Pain in right shoulder [M25.511] 10/12/2015 Unspecified asthma, uncomplicated [J45.909] 06/15/2015 Gastro-esophageal reflux disease without esopha*12/13/2015 Anxiety [F41.9] 12/13/2015 Left ovarian cyst [N83.202] 12/13/2015 History of drug abuse [F19.11] 12/13/2015 History of migraine [Z86.69] 12/13/2015 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] 12/13/2015 Kidney stone [N20.0] 12/13/2015 History of seizure [Z87.898] 12/13/2015 History of renal cell cancer [Z85.528] 01/06/2016 Renal neoplasm [D49.519] 04/27/2016 Occipital neuralgia of right side [M54.81] 08/15/2016 Eustachian tube dysfunction, bilateral [H69.93] 10/11/2016 Lumbar radiculopathy [M54.16] 10/11/2016 Leg weakness, bilateral [R29.898] 10/11/2016 Chronic bilateral low back pain with bilateral *10/11/2016 Chronic right-sided thoracic back pain [M54.6, *10/11/2016 Paresthesia of bilateral legs [R20.2] 10/11/2016 Osteoarthritis of spine with radiculopathy, lum*12/20/2016 Obesity, Class III, BMI >= 40 (morbid obesity) *01/12/2017 Migraine with aura, not intractable, without st*01/12/2017 Intervertebral disc disorder with radiculopathy* 8 Jaw pain [R68.84] 03/23/2017 Low back pain with left-sided sciatica [M54.42] 03/23/2017 Low back pain with right-sided sciatica [M54.41]03/23/2017 Other intervertebral disc degeneration, thoraci*03/23/2017 Pleurodynia [R07.81] 03/23/2017 Syncope a (more content not included)... Normal [facility] CNOVon 07-30-2023 [facility] Office Visit (JAYLEEN MOODY) BRITTNEY ALCOCER ([id number]) 1975 F NFR Date Time Provider Department 07/30/23 8:40 AM CRISTOBAL OTOOLE During your visit today, we recorded the following information about you: Temperature Pulse Blood pressure Weight 98.3 degrees 74/minute 106/74 82.1 kg Height 1.473 m Cristobal Otoole APRN.GASOLINE LOCOMOTIVE CRANE OPERATOR 08/04/2023 11:34 PM Signed Subjective Brittney Alcocer is a 48 year old female here today for follow-up cholesterol, back pain. I reviewed past medical, surgical, social, and family histories today and updated chart. Allergies, chronic medications, and supplements were also reviewed. 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 Had to rest her left foot Bladder - doing good on Myrbetriq and needs a refill Was having incomplete bladder emptying and incontinence Urologist - Lindsey Fletcher, follow-up every 6 months now Cholesterol - Diet is not the best - father in law makes a lot of meatloaf with gravy, potatoes Was unable to tolerate the rosuvastatin, atorvastatin, pravastatin, lofibra due to nausea Levels were elevated last visit and simvastatin started, she is taking it and no issues so far Had a little diarrhea at the beginning but that resolved RLS - ran out of mirapex about 1 year ago and is doing okay without it Migraines - goes into the hospital and they give her a cocktail of benadryl, zofran, depakote. 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 SYNDROME Unspecified asthma(493.90) occasional inhaler Urinary calculus, unspecified 12/2005 Renal stones: left kidney per CT PAST SURGICAL HISTORY Procedure Laterality Date BLADDER SURGERY HX 08/02/2020 Cystoscopy and Sling CARPAL TUNNEL Left 10/12/2016 Dr. Conner DELIVERY ONLY 1994 , low cervical DELIVERY ONLY 07/26/2005 , low cervical CHOLECYSTECTOMY 1995 COLONOSCOPY 09/03/2017 D. Evangelista. NORMAL. Repeat in 10 years. DILATION AND CURETTAGE DXAND/THER NONOBSTETRIC 2015 Dilation AND curettage X 2 EGD 02/25/2010 Abnormal LES, esophagitis, antral ulcers, retained fluid in stomach, pos H Pylori EGD 04/14/2008 antral gastritis, neg h Pylori EGD W/O [facility] SPEC VARICIES INJ 2021 EGD W/O [facility] SPEC VARICIES INJ 06/29/2021 LAPAROSCOPY SURG CHOLECYSTECTOMY PAST SURGICAL HISTORY OF 2005 REMOVAL OF FATTY TUMOR FROM R ARM PAST SURGICAL HISTORY OF 2007 Carpal Tunnel Surgery on right wrist PAST SURGICAL HISTORY OF 09/27/2012 left wrist carpal tunnel release PAST SURGICAL HISTORY OF Right 2017 partial nephrectomy VAGINAL HYSTERECTOMY 12/24/2019 WART REMOVAL WHI Right 09/03/2018 Removal of wart on third finger right hand - Dr. Herrera ALLERGIES Citalopram Hydrobromide, Morphine, Amoxicillin, Asa [Salicylates], Chocolate, Effexor [Venlafaxine Hcl], Naproxen, Penicillin G, Tape [Adhesive Tape-Silicones], Tomato, Tramadol, Trazodone, and Venlafaxine MEDICATIONS rimegepant (NURTEC ODT) 75 mg disintegrating tabletTake 1 tablet at onset of headache/migraine. Only take 1 tablet as single dose in 24 hour period.Disp: 8 tabletRfl: 11 loratadine (CLARITIN) 10 mg tablettake 1 tablet by mouth once dailyDisp: 28 tabletRfl: 11 ondansetron orally disintegrating (ZOFRAN ODT) 4 mg disintegrating tabletdissolve 1 tablet ON TONGUE every 8 hours if needed for nausea OR vomitingDisp: 20 tabletRfl: 5 gabapentin (NEURONTIN) 800 mg tabletTake 1 tablet by mouth four times daily for 180 days.Disp: 120 tabletRfl: 5 lansoprazole (PREVACID) 30 mg capsuleTake 1 capsule by mouth once daily.Disp: 90 capsuleRfl: 3 (Patient taking differently: Take 30 mg by mouth every morning.) pramipexole 0.75 mg tabletTake 1 tablet by mouth at bedtime as needed. take 1 tablet by mouth once daily at bedtimeDis (more content not included)... Normal [facility] XR LUMBAR PARS 4V AP/LAT/OBL X2on 07-30-2023 XR LUMBAR PARS 4V AP/LAT/OBL X2 * * *Final Report* * * DATE OF EXAM: Jul 30 2023 9:34AM LDX 5233 - XR LUMBAR PARS 4V AP/LAT/OBL X2 / PROCEDURE REASON: multiple diagnoses * * * * Physician Interpretation * * * * TECHNIQUE: XR LUMBAR PARS 4V AP/LAT/OBL X2 EXAM DATE: 07/30/2023 9:34 AM COMPARISON STUDIES: None CLINICAL HISTORY: Chronic low back pain with right-sided sciatica RESULT: Counting reference: Lumbosacral junction. For the purposes of this report, L4-5 is considered the level of the iliac crest. Alignment, vertebral body heights maintained. Mild disc space narrowing L4-S1 levels with multilevel endplate hypertrophic change and early lower lumbar facet degenerative change No gross pars defect IMPRESSION: Mild degenerative changes Brick Picker: [email or web address] Transcribe Date/Time: Aug 02 2023 10:07A Dictated by : SHANNAN DANIELS MD This examination was interpreted and the report reviewed and electronically signed by: SHANNAN DANIELS MD on Aug 02 2023 10:09AM EST [id number] Normal [facility] CNOVon 07-20-2023 CNOV Office Visit ([facility]2 ) BRITTNEY ALCOCER ([id number]) 1975 F NFR Date Time Provider Department 07/20/23 8:00 AM PAULINO RAE [facility]2 During your visit today, we recorded the following information about you: Paulino Rae PA-C 07/20/2023 4:46 PM Signed [facility] Note Subjective: Brittney Alcocer is a 48 year old year old female, with a history of chronic migraine, stroke, chronic pain syndrome, TMJD, concussion, peptic ulcer, hypothyroid, asthma, pelvic pain, renal stones and insomnia following up today for day 3 of infusions. Therapy Plan: NON-DHE: 1 L NS, mag 1 g, robaxin, depacon New health conditions since orders were placed: no Cardiovascular risk factors (KS/STROKE/CAD/HTN): hx CVA Last triptan dose: n/a- on Nurtec Last muscle relaxer dose: n/a Last NSAID dose: n/a- not receiving toradol Response to infusions: tolerating D1:rating pain 8/10 with mild nausea and no dizziness. D2:Rated pain 4/10 with mild nausea at end of infusion. D3: Rated pain 4/10 Current Preventative: Botox, gabapentin Current Abortive: Nurtec, zofran Labs: Latest Ref Rng AND Units 03/27/2023 CBC WBC 3.70 - 11.00 k/uL 5.51 RBC 3.90 - 5.20 m/uL 4.44 Hemoglobin 11.5 - 15.5 g/dL 14.6 Hematocrit 36.0 - 46.0 % 43.5 MCV 80.0 - 100.0 fL 98.0 MCH 26.0 - 34.0 pg 32.9 MCHC 30.5 - 36.0 g/dL 33.6 RDW-CV 11.5 - 15.0 % 12.8 Platelet Count 150 - 400 k/uL 250 MPV 9.0 - 12.7 fL 9.8 Latest Ref Rng AND Units 03/27/2023 CMP Sodium 136 - 144 mmol/L 142 Potassium 3.7 - 5.1 mmol/L 4.1 Chloride 97 - 105 mmol/L 108 CO2 22 - 30 mmol/L 24 Glucose 74 - 99 mg/dL 108 BUN 7 - 21 mg/dL 17 Creatinine 0.58 - 0.96 mg/dL 0.76 EGFR >=60 mL/min/1.73m? 97 Protein, Total 6.3 - 8.0 g/dL 7.1 Albumin 3.9 - 4.9 g/dL 4.3 Calcium 8.5 - 10.2 mg/dL 9.2 Bilirubin, Total 0.2 - 1.3 mg/dL 0.5 AST 13 - 35 U/L 14 ALT 7 - 38 U/L 19 Alkaline Phosphatase 34 - 123 U/L 108 ALLERGIES Allergen Reactions Citalopram Hydrobro* Anaphylaxis TACHYCARDIA Morphine GI Upset Amoxicillin GI Upset, Other: See Comments Makes me worse Asa [Salicylates] Hives Chocolate Effexor [Venlafaxin* Vomiting Naproxen Intolerance Depression Penicillin G GI Upset Tape [Adhesive Tape* Other: See Comments Rash Tomato Intolerance If cooked cant tolerate them Tramadol GI Upset Trazodone Mental Status Change Causes hallucinations Venlafaxine Unknown Current Medications: simvastatin (ZOCOR) 20 mg tabletTake 2 tablets by mouth daily at bedtime.Disp: 180 tabletRfl: 3 divalproex ER (DEPAKOTE ER) 500 mg 24 hr tabletTake 2 tablets by mouth once daily for 5 days, THEN 1 tablet once daily for 5 days.Disp: 15 tabletRfl: 0 mirabegron (MYRBETRIQ) 50 mg [id number] 1 tablet by mouth once daily.Disp: 30 tabletRfl: 11 loratadine (CLARITIN) 10 mg tablettake 1 tablet by mouth once dailyDisp: 28 tabletRfl: 11 ondansetron orally disintegrating (ZOFRAN ODT) 4 mg disintegrating tabletdissolve 1 tablet ON TONGUE every 8 hours if needed for nausea OR vomitingDisp: 20 tabletRfl: 5 rimegepant (NURTEC ODT) 75 mg disintegrating tabletTake 1 tablet at onset of headache/migraine. Only take 1 tablet as single dose in 24 hour period.Disp: 16 tabletRfl: 11 gabapentin (NEURONTIN) 800 mg tabletTake 1 tablet by mouth four times daily for 180 days.Disp: 120 tabletRfl: 5 lansoprazole (PREVACID) 30 mg capsuleTake 1 capsule by mouth once daily.Disp: 90 capsuleRfl: 3 (Patient taking differently: Take 30 mg by mouth every morning.) oxybutynin XL (DITROPAN XL) 5 mg 24 hr tablettake 1 tablet by mouth once dailyDisp: 30 tabletRfl: 3 (Patient taking differently: Take 5 mg by mouth every evening.) albuterol HFA (PROVENTIL HFA, VENTOLIN HFA) 90 mcg/actuation inhalerInhale 2 Puffs as instructed every 4 hours as needed for wheezing/shortness of breath.Disp: 18 gRfl: 5 pramipexole 0.75 mg tabletTake 1 tablet by mouth at bedtime as needed. take 1 tablet by mouth once daily at bedtimeDisp: Rfl: MEDICATION, NON-DATABASEMarijuana for migrainesDisp: Rfl: Review of Systems: Review of system : unchanged from the previous visit (sleep patterns, mood, energy, appetite, stress, exercising). Objective: VS: see infusion note for vital signs General: well appearing, in no acute distress, alert Lungs: normal breath sounds bilaterally CV: RRR, normal S1, S2 auscultated, no murmurs, and no JVD GI: Bowel sounds present in all four quadrants. Neurological: Pain Behaviors: no pain behaviors observed Mental Status: Alert and oriented to person, place and time. Affect is normal and appropriate. Speech is spontaneous and fluent without dysarthria, normal in rate, volume and articulation, and clear, coherent, and relevant. 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 Attention span and concentration are good. Cranial (more content not included)... Normal [facility] CNOVon 07-18-2023 CNOV Office Visit ([facility] ) BRITTNEY ALCOCER ([id number]) 1975 F NFR Date Time Provider Department 07/18/23 8:00 AM ELENA NAY[facility]OR [facility] During your visit today, we recorded the following information about you: Elena Naylor APRN.GASOLINE LOCOMOTIVE CRANE OPERATOR 07/18/2023 8:45 AM Signed [facility] Note Subjective: Brittney Alcocer is a 48 year old year old female, with a history of chronic migraine, stroke, chronic pain syndrome, TMJD, concussion, peptic ulcer, hypothyroid, asthma, pelvic pain, renal stones and insomnia following up today for day 1 of infusions. Therapy Plan: NON-DHE: 1 L NS, mag 1 g, robaxin, depacon New health conditions since orders were placed: no Cardiovascular risk factors (KS/STROKE/CAD/HTN): hx CVA Last triptan dose: n/a- on Nurtec Last muscle relaxer dose: n/a Last NSAID dose: n/a- not receiving toradol Response to infusions: tolerating Current Preventative: Botox, gabapentin Current Abortive: Nurtec, zofran Labs: Latest Ref Rng AND Units 03/27/2023 CBC WBC 3.70 - 11.00 k/uL 5.51 RBC 3.90 - 5.20 m/uL 4.44 Hemoglobin 11.5 - 15.5 g/dL 14.6 Hematocrit 36.0 - 46.0 % 43.5 MCV 80.0 - 100.0 fL 98.0 MCH 26.0 - 34.0 pg 32.9 MCHC 30.5 - 36.0 g/dL 33.6 RDW-CV 11.5 - 15.0 % 12.8 Platelet Count 150 - 400 k/uL 250 MPV 9.0 - 12.7 fL 9.8 Latest Ref Rng AND Units 03/27/2023 CMP Sodium 136 - 144 mmol/L 142 Potassium 3.7 - 5.1 mmol/L 4.1 Chloride 97 - 105 mmol/L 108 CO2 22 - 30 mmol/L 24 Glucose 74 - 99 mg/dL 108 BUN 7 - 21 mg/dL 17 Creatinine 0.58 - 0.96 mg/dL 0.76 EGFR >=60 mL/min/1.73m? 97 Protein, Total 6.3 - 8.0 g/dL 7.1 Albumin 3.9 - 4.9 g/dL 4.3 Calcium 8.5 - 10.2 mg/dL 9.2 Bilirubin, Total 0.2 - 1.3 mg/dL 0.5 AST 13 - 35 U/L 14 ALT 7 - 38 U/L 19 Alkaline Phosphatase 34 - 123 U/L 108 ALLERGIES Allergen Reactions Citalopram Hydrobro* Anaphylaxis TACHYCARDIA Morphine GI Upset Amoxicillin GI Upset, Other: See Comments Makes me worse Asa [Salicylates] Hives Chocolate Effexor [Venlafaxin* Vomiting Naproxen Intolerance Depression Penicillin G GI Upset Tape [Adhesive Tape* Other: See Comments Rash Tomato Intolerance If cooked cant tolerate them Tramadol GI Upset Trazodone Mental Status Change Causes hallucinations Venlafaxine Unknown Current Medications: simvastatin (ZOCOR) 20 mg tabletTake 2 tablets by mouth daily at bedtime.Disp: 180 tabletRfl: 3 divalproex ER (DEPAKOTE ER) 500 mg 24 hr tabletTake 2 tablets by mouth once daily for 5 days, THEN 1 tablet once daily for 5 days.Disp: 15 tabletRfl: 0 mirabegron (MYRBETRIQ) 50 mg [id number] 1 tablet by mouth once daily.Disp: 30 tabletRfl: 11 loratadine (CLARITIN) 10 mg tablettake 1 tablet by mouth once dailyDisp: 28 tabletRfl: 11 ondansetron orally disintegrating (ZOFRAN ODT) 4 mg disintegrating tabletdissolve 1 tablet ON TONGUE every 8 hours if needed for nausea OR vomitingDisp: 20 tabletRfl: 5 rimegepant (NURTEC ODT) 75 mg disintegrating tabletTake 1 tablet at onset of headache/migraine. Only take 1 tablet as single dose in 24 hour period.Disp: 16 tabletRfl: 11 gabapentin (NEURONTIN) 800 mg tabletTake 1 tablet by mouth four times daily for 180 days.Disp: 120 tabletRfl: 5 lansoprazole (PREVACID) 30 mg capsuleTake 1 capsule by mouth once daily.Disp: 90 capsuleRfl: 3 (Patient taking differently: Take 30 mg by mouth every morning.) oxybutynin XL (DITROPAN XL) 5 mg 24 hr tablettake 1 tablet by mouth once dailyDisp: 30 tabletRfl: 3 (Patient taking differently: Take 5 mg by mouth every evening.) albuterol HFA (PROVENTIL HFA, VENTOLIN HFA) 90 mcg/actuation inhalerInhale 2 Puffs as instructed every 4 hours as needed for wheezing/shortness of breath.Disp: 18 gRfl: 5 pramipexole 0.75 mg tabletTake 1 tablet by mouth at bedtime as needed. take 1 tablet by mouth once daily at bedtimeDisp: Rfl: MEDICATION, NON-DATABASEMarijuana for migrainesDisp: Rfl: Review of Systems: Review of system : unchanged from the previous visit (sleep patterns, mood, energy, appetite, stress, exercising). Objective: VS: see infusion note for vital signs General: well appearing, in no acute distress, alert Neurological: Pain Behaviors: no pain behaviors observed, sleeping intermittently. Mental Status: Alert and oriented to person, place and time. Affect is normal and appropriate. Speech is spontaneous and fluent without dysarthria, normal in rate, volume and articulation, and clear, coherent, and relevant. Short and snf memory, cognition and general fund of knowledge are good. Attention span and concentration are excellent. Cranial Nerves: VII-face is symmetric without evidence of weakness. VIII-hearing intact. Assessment: Status migrainosus (primary encounter diagnosis) Plan: Brittney Alcocer is a 48 year old year old female, with a history of chronic migraine, stroke, chron (more content not included)... Normal [facility] OPERATIVE NOon 06-17-2023 OPERATIVE NO HNO ID: [id number] Author: SABAS REYES DPM Service: Podiatry Author Type: Physician Type: Operative Report Filed: 06/20/2023 10:54 Note Text: [facility] - OPERATIVE REPORT BRITTNEY ALCOCER : 1975 AGE: 48. SEX: F PATIENT TYPE: A [facility]OS[facility] [place]: DPFlorentino LOCATION: [place] [address] ATTENDING PHYSICIAN: Sabas Reyes DPM CSN NUMBER: [id number] DATE OF SURGERY/PROCEDURE: 05/18/2023 INCISION/PROCEDURE START TIME: 7:54 AM INCISION CLOSE/PROCEDURE END TIME: 8:23 AM PREOPERATIVE DIAGNOSIS: POSTOPERATIVE DIAGNOSIS: SURGEON: Sabas Reyes DPM SURFACER OPERATOR: 1. Spike Hernandez, PGY-3. 2. Jc Parikh, PGY-3. SURGERY/PROCEDURE: ANESTHESIA: General with block of the left lower extremity. PREOPERATIVE DIAGNOSES: 1. Neuritis, left lower leg. 2. Painful peripheral neuropathy. 3. 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 4. 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 POSTOPERATIVE DIAGNOSES: 1. Neuritis, left lower leg. 2. Painful peripheral neuropathy. 3. 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 4. 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 ESTIMATED BLOOD LOSS: Less than 30 mL. MATERIALS: Nerve protector, 5 mm x 4 cm nerve wrap. DRAINS: None. COMPLICATIONS: None. ESTIMATED BLOOD LOSS: 10 mL. BRIEF INDICATION FOR PROCEDURE: This patient is a well known patient of mine at [facility] with a complaint of having a painful left lower leg, which the patient has had swelling of the nerve conditions such as tingling pain and stinging pain. She has had this for many years. It has gotten worse over the last few months. She started to have weakness in her leg, almost early signs of drop foot, positive Tinel sign in the common peroneal nerve and the deep peroneal nerve on the dorsum of the foot. Ultrasound showed a neuroma of the common peroneal nerve that will need to be removed and a portion that would have to be implanted into the muscle. She has had problems with lower back pain, chronic conditions. We tried all conservative methods such as topical medication cream, nerve medication, injections. DESCRIPTION OF PROCEDURE: The patient was seen in the preoperative holding area, where chart was reviewed and consent was signed. The patient was then taken back to the operating room, placed on the operating table in normal supine position. Ipsilateral bump was placed underneath the left lower extremity. We placed a tourniquet about the left lower thigh. Time-out was then performed. Esmarch was applied to 250 mmHg and Esmarch had been performed. A 5-1/2 centimeter curvilinear incision just 2 fingerbreadths below the fibular head was then incised on the lateral side of the lower leg down to including subcutaneous tissue and the deep fascia. At that point, the deep fascia was then cut into the muscle bellies of both the peroneus longus and brevis, they were visualized. Next, the deep fascia was used and cut using a pair of Metzenbaum scissors, which at that point once it was incised then the common peroneal nerve was then visualized and then we released the fascia anteriorly into the anterior compartment as it passed above the fibular head. After this was then released and the nerve was noted to have a small neuroma along one of the branches, there is a pea-sized lump on the nerve, which was a neuroma. Next, using sharp and blunt dissection and using loupe magnification, I was able to find the small neuroma of the left lower extremity. The neuroma was found to be an area that I was able to cut through the perineum and the epineurium. After removing it, we then delicately closed the nerve using 6-0 Prolene and was able to then bury this nerve into one of the deep muscle bellies. After implantation in the muscle belly still using the Prolene, we flushed and at that point I felt the nerve was dramatically improved. I used a checkpoint nerve stimulator and the nerve was able to actually dorsiflex and invert. Next, I was able then to wrap Integra nerve wrap, which measured 5 mm x 4 cm around the nerve itself, did not necessarily sutured in place. I laid it on the area, flushed and closed the incision with 3-0 Vicryl and 3- 0 Prolene. Attention was then directed to the dorsal aspect of the left foot at the level of the first tarsometatarsal joint and between the tarsal joint as well as the first webspace a 5 cm linear longitudinal incision was made down to including subcutaneous tissue. I then sliced through the extensor retinaculum showing the deep peroneal nerve with the subcutaneous fat. I was able to find the nerve using loupe magnification and sharp and blunt dissection. I released the nerve around it, flushed the area with copious amounts of normal sterile saline. I therefore then did not have to do it any more with the nerve except to release it, releasing the soft (more content not included)... [facility] ANES POSTPROC EVALon 024 ANES POSTPROC EVAL HNO ID: [id number] Author: SAMEER DOMINGUEZ DO Service: Anesthesiology Author Type: Anesthesiologist Type: Anesthesia Postprocedure Evaluation Filed: 05/18/2023 10:27 Note Text: POST ANESTHESIA EVALUATION NOTE : 1975 Procedure Summary Date: 05/18/23 Room / Location: OR / OR Anesthesia Start: 738 Anesthesia Stop: 832 Procedures: EXCISION OF NEUROMA OF CUTANEOUS NERVE IN FOOT (Left: Foot) IMPLANTATION NERVE END INTO BONE OR MUSCLE (Left: Foot) Diagnosis: Idiopathic progressive polyneuropathy Neuralgia (Idiopathic progressive polyneuropathy [G60.3]) (Neuralgia [M79.2]) Surgeons: Sabas Reyes DPFlorentino Responsible Provider: Sameer Dominguez DO Anesthesia Type: general ASA Status: 3 Anesthesia Type: general Airway Type: LMA Last Vitals Vitals Value Taken Time BP 99/54 05/18/23 0952 Temp 36.1 ?C (97 ?F) 05/18/23 0952 HR SpO2 72 05/18/23 0947 Resp 18 05/18/23 0952 SpO2 96 % 05/18/23 0952 Vitals shown include unfiled device data. Post Anesthesia Patient Status Patient Evaluation: PACU. PACU/ICU Patient Condition: stable. Anticipated Disposition: phase 2 then home. Neurological Status: aware and responsive. Pulmonary Status: breathing comfortably on room air Airway Control: returned to baseline unsupported. Cardiovascular Status: stable. Pain Management: clinically adequate Postoperative Hydration: acceptable. Intraoperative Events: no significant anesthesia events Post Operative Nausea/Vomiting Status: no significant post operative nausea or vomiting Recommendation: further care per PACU/ICU/floor team. Anesthesia Observations No notable events were associated with this procedure. Documented by Juan Carlos Dozier APRN.FIBERLINE SUPERVISOR 05/18/2023 8:35 AM EDT SIGNATURE: Sameer Dominguez DO PATIENT NAME: Brittney Alcocer DATE: May 18, 2023 TIME: 10:27 AM CSN: [id number] [facility] ANES PRE-OPon 05-18-2023 ANES PRE-OP HNO ID: [id number] Author: SAMEER DOMINGUEZ DO Service: Anesthesiology Author Type: Anesthesiologist Type: Anesthesia Preprocedure Evaluation Filed: 05/18/2023 06:50 Note Text: ANESTHESIOLOGY DAY OF SURGERY NOTE : 1975 Procedure Information Date/Time: 05/18/23729 Procedures: EXCISION OF NEUROMA OF CUTANEOUS NERVE IN FOOT (Left: Foot) IMPLANTATION NERVE END INTO BONE OR MUSCLE (Left: Foot) Location: MR OR 01 / MR OR Surgeons: Sabas Reyes DPM Estimated body mass index is 36.95 kg/m? as calculated from the following: Height as of this encounter: 147.3 cm (4' 10). Weight as of this encounter: 80.2 kg (176 lb 12.9 oz). Most recent hematocrit and potassium results: HEMATOCRIT 43.5 03/27/2023 K 4.1 03/27/2023 Relevant Problems ANESTHESIA (+) Obstructive sleep apnea syndrome CARDIO (+) Chronic migraine without aura, intractable, without status migrainosus (+) Intractable chronic migraine without aura and with status migrainosus (+) Intractable chronic migraine without aura and without status migrainosus (+) Migraine with aura, not intractable, without status migrainosus (+) Migraine without aura, not refractory (+) Status migrainosus (+) Trace mitral valve regurgitation GI (+) Gastro-esophageal reflux disease without esophagitis -RENAL (+) Kidney stone (+) Renal neoplasm NEURO-PSYCH (+) Cerebrovascular accident (CVA) (HCC) (+) Chronic migraine without aura, intractable, without status migrainosus (+) History of drug abuse (HCC) (+) History of migraine (+) History of renal cell cancer (+) History of seizure (+) Intractable chronic migraine without aura and with status migrainosus (+) Intractable chronic migraine without aura and without status migrainosus (+) Intractable chronic post-traumatic headache (+) Migraine with aura, not intractable, without status migrainosus (+) Migraine without aura, not refractory (+) Occipital neuralgia of right side (+) Status migrainosus PULMONARY (+) Obstructive sleep apnea syndrome (+) Unspecified asthma, uncomplicated I - PHYSICAL EVALUATION AIRWAY Patient intubated: No. Tracheostomy tube not present Mallampati: II. TM distance: >3 FB. Neck ROM: full ROM without neurological symptoms. Mouth opening: adequate. Short neck: no. Thick neck: no II - ANESTHESIA PLAN ASA Score: 3 Anesthetic Plan: general Airway type: LMA NPO Status: adequate Beta Sony Monitoring Plan Monitoring plan: standard ASA. Post Procedure Analgesic Plan Postoperative analgesic plan: multimodal analgesia. Informed Consent Anesthetic risks, benefits, alternatives, personnel and consent discussed: yes. Patient / Responsible Libertarian agrees to proceed: yes Patient / Surrogate agrees to blood products: Yes Vitals Value Taken Time BP Pulse Resp Temp 36.4 ?C (97.5 ?F) 05/18/23 0624 SpO2 Facility-Administered Medications as of 05/18/2023 Medication Dose Route Frequency - vancomycin 1.25 g in NaCl 0.9% 250 mL (VANCOCIN) 0.015 g/kg/dose INTRAVENOUS ONCE - lidocaine (PF) 10 mg/mL (1 %) 2 mg injection (XYLOCAINE) 0.2 mL INTRADERMAL PRN - lactated ringers iv infusion 30 mL/hr INTRAVENOUS CONTINUOUS - NaCl 0.9% iv flush bag 20 mL INTRAVENOUS PRN Outpatient Medications as of 05/18/2023 Medication Sig - simvastatin (ZOCOR) 20 mg tablet Take 1 tablet by mouth daily at bedtime. - lansoprazole (PREVACID) 30 mg capsule Take 1 capsule by mouth once daily. (Patient taking differently: Take 30 mg by mouth every morning.) - oxybutynin XL (DITROPAN XL) 5 mg 24 hr tablet take 1 tablet by mouth once daily (Patient taking differently: Take 5 mg by mouth every evening.) - albuterol HFA (PROVENTIL HFA, VENTOLIN HFA) 90 mcg/actuation inhaler Inhale 2 Puffs as instructed every 4 hours as needed for wheezing/shortness of breath. - loratadine (CLARITIN) 10 mg tablet take 1 tablet by mouth once daily (Patient taking differently: Take 10 mg by mouth every morning.) - pramipexole 0.75 mg tablet Take 1 tablet by mouth at bedtime as needed. take 1 tablet by mouth once daily at bedtime - MEDICATION, NON-DATABASE Marijuana for migraines - predniSONE (DELTASONE) 10 mg tablet Take 4 tablets for 3 days, then 2 tablets for 3 days, then 1 tablet for 3 days, then stop I have interviewed and examined the patient. I have reviewed the medical record and/or the pre-anesthesia evaluation, pertinent labs, and test results. This contains updated information obtained within 48 hours of Surgery/Procedure. SIGNATURE: Sameer Dominguez DO PATIENT NAME: Brittney Alcocer DATE: May 18, 2023 TIME: 6:49 AM CSN: [id number] [facility] HISTORY PHYSICALon HISTORY PHYSICAL HNO ID: [id number] Author: SABAS REYES DPM Service: Podiatry Author Type: Resident Type: H&P Filed: 05/18/2023 07:33 Note Text: Attestation signed by Sabas Reyes DPM at 05/18/2023 7:33 AM Patient was seen and evaluated and they understand all risks and complications at hand. HISTORY AND PHYSICAL EXAMINATION SERVICE DATE: 05/18/2023 SERVICE TIME: 7:03 AM PRIMARY CARE PHYSICIAN: Cristobal Otoole APRN.GASOLINE LOCOMOTIVE CRANE OPERATOR Subjective Patient has arrived for surgery today the surgery is as follows: Left - EXCISION OF NEUROMA OF CUTANEOUS NERVE IN FOOT Left - IMPLANTATION NERVE END INTO BONE OR MUSCLE Patient is amendable. Patient decline any nausea, vomiting, shortness of breath, calf pain, and other constitutional symptoms. Patient denies any other pedal complaints today. 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 SYNDROME Unspecified asthma(493.90) occasional inhaler Urinary calculus, unspecified 12/2005 Renal stones: left kidney per CT PAST SURGICAL HISTORY Procedure Laterality Date BLADDER SURGERY HX 08/02/2020 Cystoscopy and Sling CARPAL TUNNEL Left 10/12/2016 Dr. Conner DELIVERY ONLY 1994 , low cervical DELIVERY ONLY 07/26/2005 , low cervical CHOLECYSTECTOMY 1996 COLONOSCOPY 09/03/2017 D. Evangelista. NORMAL. Repeat in 10 years. DILATION AND CURETTAGE DXAND/THER NONOBSTETRIC 2015 Dilation AND curettage X 2 EGD 02/25/2010 Abnormal LES, esophagitis, antral ulcers, retained fluid in stomach, pos H Pylori EGD 04/14/2008 antral gastritis, neg h Pylori EGD W/O [facility] SPEC VARICIES INJ 2021 EGD W/O [facility] SPEC VARICIES INJ 06/29/2021 LAPAROSCOPY SURG CHOLECYSTECTOMY PAST SURGICAL HISTORY OF 2005 REMOVAL OF FATTY TUMOR FROM R ARM PAST SURGICAL HISTORY OF 2006 Carpal Tunnel Surgery on right wrist PAST SURGICAL HISTORY OF 09/27/2012 left wrist carpal tunnel release PAST SURGICAL HISTORY OF Right 2017 partial nephrectomy VAGINAL HYSTERECTOMY 12/24/2019 WART REMOVAL WHI Right 09/03/2018 Removal of wart on third finger right hand - Dr. Herrera FAMILY HISTORY Problem Relation Age of Onset Hypertension Mother Psychiatry Mother DEPRESSION other (Centre's Chorea) Mother other (Other) Sister stillborn other (Heart Disease) Maternal Grandfather other (Down Syndrome) Paternal Grandfather other (Centre's Chorea) Brother ADD/ADHD Son other (Rosacea) Son other (Gallbladder disease) Son Asthma Son Colon Cancer No Family History Social History Tobacco Use Smoking status: Every Day Packs/day: 0.50 Years: 36.00 Additional pack years: 0.00 Total pack years: 18.00 Types: Cigarettes Smokeless tobacco: Never Tobacco comments: uses marijuana Vaping Use Vaping Use: Former Substance Use Topics Alcohol use: Not Currently Drug use: Yes Frequency: 7.0 times per week Types: Marijuana Comment: for migraines-THC daily, h/o crack in 1998 onabotulinum toxin type A 200 Units injection (BOTOX), 200 Units, OTHER, q 3 MONTHS, Queenie Sparks, RED CROSS WORKER.GASOLINE LOCOMOTIVE CRANE OPERATOR, 200 Units at 03/09/23 1030 cephALEXin (KEFLEX) 500 mg capsule, Take 1 capsule by mouth four times daily for 5 days. (Patient taking differently: Take 500 mg by mouth four times daily. Currently has a dental infection. Started on 05/16/23), Disp: 20 capsule, Rfl: 0, 05/17/2023 rimegepant (NURTEC ODT) 75 mg disintegrating tablet, Take 1 tablet at onset of headache/migraine. Only take 1 tablet as single dose in 24 hour period., Disp: 16 tablet, Rfl: 11, Unknown gabapentin (NEURONTIN) 800 mg tablet, Take 1 tablet by mouth four times daily for 180 days., Disp: 120 tablet, Rfl: 5, 05/18/2023 ondansetron orally disintegrating (ZOFRAN ODT) 4 mg disintegrating tablet, dissolve 1 tablet ON TONGUE every 8 hours if needed for nausea OR vomiting, Disp: 20 tablet, Rfl: 5, 05/18/2023 simvastatin (ZOCOR (more content not included)... [facility] OPERATIVE NOon 05-18-2023 OPERATIVE NO HNO ID: [id number] Author: SABAS REYES DPM Service: Podiatry Author Type: Physician Type: Operative Report Filed: 05/18/2023 10:24 Note Text: ORTHO OPERATIVE REPORT LOG ID: [id number] Surgery/Procedure Date: 05/18/2023 Incision/Procedure Start Time: 7:54 AM Incision Close/Procedure End Time: 8:23 AM Surgeon(s)/Proceduralis t(s) and Container Shop Welder(s): Surgeon(s) and Role: * Sabas Reyes DPM - Primary * Spike Hernandez DPM - Resident - Assisting * Jc Parikh DPM - Resident - Assisting Sand Slinger Operator: Laura Lanza SA Procedure(s): #1 excision neuroma of the common peroneal nerve left lower leg 2. Implantation of nerve of a branch of the common peroneal nerve into the peroneal muscle belly left lower leg 3. Neuroplasty dorsal left foot of the deep peroneal nerve Anesthesia: General Procedure Details: Patient is a well-known patient mine at [facility] with a complaint of having a painful left lower leg in which the patient's had swelling nerve condition such as tingling pain and stinging. She has had this for many years got worse over the last few months she started to have weakness in her leg she feels as though it is becoming painful there is positive Tinel's sign to the common peroneal nerve the deep peroneal nerve not much on the posterior tibial nerve as noted with ultrasound showed a small neuroma of the common peroneal nerve that would need to be removed and a portion would have to be buried into the muscle. At this point this could be causing a lot more of her difficulties she does have lower extremity pain back pain I recommended surgical procedure since she has failed conservative methods such astopical medication and cream, nerve meds, injections. Patient was seen in the preoperative holding her chart reviewed and consent was signed. Patient was then taken back to the operating room placed the operative table in normal supine position we did not do a block at that point then the tourniquet was placed about the left lower extremity. After the tourniquet was applied then Esmarch was applied tourniquet inflated to 250 mL work about the left lower extremity. Next timeout was then performed. Tourniquet was inflated to 250 mL mercury next a 5-1/2 cm curvilinear incision just 2 fingerbreadths below the fibular head was then incised along the lateral side of the lower leg down to including subcutaneous tissue down into the deep fascia once a deep fascia was made in the muscle bellies of both the peroneal muscles of the longus and brevis were then visualized the fascia and septae was then cut using scissors and pickups to release the muscle belly and any tightness around the anterior compartment released it as far anterior medially as possible and then laterally released extending up towards the fibular head and then posteriorly. At that point then I made an incision and dissected carefully down around the common peroneal nerve which I was able to visualize multiple branches at that point then along with there was a small appeared to be a pea-sized lump on one of the nerves which at that point then we were able to cut the lesion out by sniffing both ends of the nerve burning both ends of it. At that point then this area of the nerve had to be buried into the muscle belly At that point then once we cauterized the nerve endings and cut out the small portion of the neuroma through the epineurium we then we were able to apply a nerve wrap around it using a Integra nerve wrap which measured 5 mm x 4 cm which we able to wrap and lay around the nerve itself. After doing so I did not suture in place I did closed the subcutaneous tissue then with 3-0 Vicryl and then 3-0 Prolene At that point then prior to implantation of the nerve wrap and implantation of the muscle into the muscle belly I did check it for stimulus by using a pinpoint nerve stimulator and there was good motion and stimulation at the level of the common peroneal nerve. At that point then we took a small suture and and planted the nerve in a horizontal mattress suture technique into the peroneal muscle belly and then wrapped it around the area flushed and closed properly. Attention was then directed the dorsal aspect of the left foot at the level of the first tarsometatarsal joint in between the tarsal joints as well as into the first webspace at that point then incised down to including subcutaneous tissue I then incised through the extensor retinaculum visualizing the deep peroneal nerve able to release it and therefore then felt comfortable releasing the area I did not check it with a nerve stimulator as it would probably not produce much muscular activity was able to release the nerve around it I flushed it and closed the subcutaneous tissue with 3-0 Vicryl and 3-0 Prolene all areas dressed with Xeroform dry dressing a multilayer compression wrap was wrapped from the toes to (more content not included)... Normal [facility] ANES PREOPon 05-17-2023 ANES PREOP HNO ID: [id number] Author: VALERIY MIJARES PA-C Service: ? 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 Dr Reyes is aware of patient's dental infection and is okay to proceed with procedure and wants anesthesia notified of pt status so they are aware. [facility] XR KNEE 4V AP/PA BOTH+LAT/ME R LTon 10-24-2022 XR KNEE 4V AP/PA BOTH+LAT/ODETTE LT * * *Final Report* * * DATE OF EXAM: Oct 24 2022 10:21AM NIKKI [id number] - XR KNEE 4V AP/PA BOTH+LAT/ODETTE LT / PROCEDURE REASON: multiple diagnoses * * * * Physician Interpretation * * * * History: Chronic pain of both knees FINDINGS: AP and PA views of both knees and merchant lateral views of the left knee have been obtained. Correlation is made with prior study of 07/25/2021. The bones are well-mineralized without evidence of fracture or dislocation. Joint spaces are maintained. No joint effusion is seen. Impression no acute process is seen. Note is made that there is pain in both knees and iliac lateral and merchant knees of the right knee are desired, they may be obtained. Brick Picker: [id number] Transcribe Date/Time: Oct 24 2022 1:23P Dictated by : JORGE LUIS ESPINAL MD This examination was interpreted and the report reviewed and electronically signed by: JORGE LUIS ESPINAL MD on Oct 24 2022 1:26PM EST [id number] Normal [facility] Basic metabolic 1998 panelon 05-21-2022 Anion gap [Moles/Vol] 5 mmol/L 3 - 13 mmol/L [facility] Calcium [Mass/Vol] 9.7 mg/dL 8.4 - 10. 4 mg/dL [facility] Chloride [Moles/Vol] 109 mmol/L High 98 - 10 7 mmol/L [facility] CO2 [Moles/Vol] 27 mmol/L 22 - 30 mmol/L [facility] Creatinine [Mass/Vol] 0.72 mg/dL 0.52 - 1.04 mg/dL [facility] GFR/1.73 sq M.predicted MDRD (S/P/Bld) [Vol rate/Area] - PINF [facility] Comment on above: Calculation based on the Chronic Kidney Disease Epidemiology Collaboration (CKD-EPI) equation refit without adjustment for race Glucose [Mass/Vol] 84 mg/dL 70 - 100 mg/dL [facility] Interpretation and review of laboratory results Abnormal [facility] Potassium [Moles/Vol] 3.9 mmol/L 3.5 - 5.1 mmol/L [facility] Sodium [Moles/Vol] 140 mmol/L 135 - 145 mmol/L [facility] Urea nitrogen [Mass/Vol] 19 mg/dL High 7 - 17 mg/dL [facility] CBC W Auto Differential pane l (Bld)Ordered By: Paola Stewart on 05-21-2022 Basophils (Bld) [#/Vol] 0.0 10*3/uL 0.0 - 0.2 10*3/uL [facility] Basophils/100 WBC (Bld) 0.5 % 0.0 - 2.0 % [facility] Eosinophils (Bld) [#/Vol] 0.1 10*3/uL 0.0 - 0.5 10*3/uL [facility] Eosinophils/100 WBC (Bld) 2.1 % 1.0 - 6.0 % [facility] Erythrocyte distribution width (RBC) [Ratio] 13.0 % 11.5 - 14.5 % [facility] Hematocrit (Bld) [Volume fraction] 43.8 % 35.0 - 47.0 % [facility] Hemoglobin (Bld) [Mass/Vol] 15.4 g/dL 11.7 - 16.0 g/dL [facility] Immature granulocytes (Bld) [#/Vol] 0.0 10*3/uL NINF - 0.0 10*3/uL [facility] Immature granulocytes/100 WBC (Bld) 0.3 % High NINF - 0.0 % [facility] Interpretation and review of laboratory results Abnormal [facility] Lymphocytes (Bld) [#/Vol] 2.4 10*3/uL 1.0 - 4.3 10*3/uL [facility] Lymphocytes/100 WBC (Bld) 36.4 % 20.0 - 40.0 % [facility] MCH (RBC) [Entitic mass] 32.2 pg 26.0 - 34.0 pg [facility] MCHC (RBC) [Mass/Vol] 35.2 % 32.0 - 36.0 % [facility] MCV (RBC) [Entitic vol] 91.4 fL 80.0 - 98.0 fL [facility] Monocytes (Bld) [#/Vol] 0.5 10*3/uL 0.0 - 0.8 10*3/uL [facility] Monocytes/100 WBC (Bld) 7.3 % 2.0 - 10.0 % [facility] Neutrophils (Bld) [#/Vol] 3.5 10*3/uL 1.8 - 7.0 10*3/uL [facility] Neutrophils/100 WBC (Bld) 53.4 % 40.0 - 80.0 % [facility] Platelet mean volume (Bld) [Entitic vol] 9.7 fL 7.4 - 12.4 fL [facility] Comment on above: MPV is a calculated measurement using platelet volume ratio Platelets (Bld) [#/Vol] 240 10*3/uL 140 - 440 10*3/uL [facility] RBC (Bld) [#/Vol] 4.79 10*6/uL 3.8 - 5.20 10*6/uL [facility] WBC (Bld) [#/Vol] 6.6 10*3/uL 3.6 - 10.7 10*3/uL [facility] CT Abdomen WO contraston 1. No evidence of obstructive uropathy. Punctate nonobstructing calculus within the left kidney. 2. Redemonstration of scarring and calcification along the lateral aspect of the right kidney. 3. No visualized acute inflammatory process within the abdomen or pelvis within the limits of a noncontrast study. Report Dictated on Electronically Signed By: Mark Daniels Electronically Signed Date/Time: 05/21/2022 7:14 PM EDT [facility] [place] [facility] Patient Name: [facility]OR[facility] 1975 [id number] Exam Date/Time: 05/21/2022 18:50 Procedure: CT ABDOMEN PELVIS WO IV CONTRAST Ordering Provider: MADDOX NICHOLAS Reason For Exam: Flank pain, kidney stone suspected Procedure: CT Abdomen and Pelvis. EXAM DATE & TIME: 05/21/2022 6:50 PM EDT INDICATION: Flank pain ADDITIONAL INFORMATION: none COMPARISON: CT abdomen pelvis on 06/23/2020 TECHNIQUE: Abdomen: without intravenous contrast Pelvis: without intravenous contrast Dose reduction was employed with automated exposure control. FINDINGS: LOWER CHEST: Refer to concurrent CTA chest. ABDOMEN: LIVER: within normal limits. BILE DUCTS: normal caliber. GALLBLADDER: Cholecystectomy. PANCREAS: within normal limits. SPLEEN: within normal limits. ADRENALS: within normal limits. KIDNEYS: No hydronephrosis. Punctate nonobstructing calculus within the left kidney. Calcification of scarring along the lateral aspect of the right kidney, similar to prior. PELVIS: REPRODUCTIVE ORGANS: no pelvic masses. URETERS: within normal limits. BLADDER: within normal limits. BOWEL: Normal caliber. No obstruction. Normal appendix. No enlarged mesenteric lymph nodes. PERITONEUM: no ascites or free air, no fluid collection. VESSELS: within normal limits. LYMPH NODES: No enlarged nodes. RETROPERITONEUM: within normal limits. ABDOMINAL WALL: Small fat-containing. Local hernia. 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 Changes in the spine. [facility] Mark Daniels MD - 05/21/2022 Patient Name: BRITTNEY ALCOCER : 1975 [id number] Exam Date/Time: 05/21/2022 18:50 Procedure: CT ABDOMEN PELVIS WO IV CONTRAST Ordering Provider: MADDOX NICHOLAS Reason For Exam: Flank pain, kidney stone suspected Procedure: CT Abdomen and Pelvis. EXAM DATE & TIME: 05/21/2022 6:50 PM EDT INDICATION: Flank pain ADDITIONAL INFORMATION: none COMPARISON: CT abdomen pelvis on 06/23/2020 TECHNIQUE: Abdomen: without intravenous contrast Pelvis: without intravenous contrast Dose reduction was employed with automated exposure control. FINDINGS: LOWER CHEST: Refer to concurrent CTA chest. ABDOMEN: LIVER: within normal limits. BILE DUCTS: normal caliber. GALLBLADDER: Cholecystectomy. PANCREAS: within normal limits. SPLEEN: within normal limits. ADRENALS: within normal limits. KIDNEYS: No hydronephrosis. Punctate nonobstructing calculus within the left kidney. Calcification of scarring along the lateral aspect of the right kidney, similar to prior. PELVIS: REPRODUCTIVE ORGANS: no pelvic masses. URETERS: within normal limits. BLADDER: within normal limits. BOWEL: Normal caliber. No obstruction. Normal appendix. No enlarged mesenteric lymph nodes. PERITONEUM: no ascites or free air, no fluid collection. VESSELS: within normal limits. LYMPH NODES: No enlarged nodes. RETROPERITONEUM: within normal limits. ABDOMINAL WALL: Small fat-containing. Local hernia. 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 Changes in the spine. IMPRESSION: 1. No evidence of obstructive uropathy. Punctate nonobstructing calculus within the left kidney. 2. Redemonstration of scarring and calcification along the lateral aspect of the right kidney. 3. No visualized acute inflammatory process within the abdomen or pelvis within the limits of a noncontrast study. Report Dictated on Electronically Signed By: Mark Daniels Electronically Signed Date/Time: 05/21/2022 7:14 PM EDT [facility] Radiology Study observation (narrative) Leanna Clayton alth CT Abdomen WO contrastOrdere d By: Mark Daniels on 05-21-2022 [facility] Work Phone: CTA Chest vessels WO and W c ontrast Reg 05-21-2022 Impression: No evidence of pulmonary embolus or other acute finding of the chest. Report Dictated on Electronically Signed By: Carlos Dominguez Electronically Signed Date/Time: 05/21/2022 7:14 PM EDT [employer] Patient Name: BRITTNEY MORA : 1975 Exam Date/Time: 05/21/2022 19:04 Procedure: CT CHEST ANGIOGRAM W AND/OR WO IV CONTRAST Ordering Provider: MADDOX NICHOLAS Reason For Exam: left side pain, worse taking deep breath, elevated D-dimer Examination: CTA chest Clinical Indication: Suspected pulmonary embolism Comparison: July 09, 2017 Findings: Serial axial [address] images were obtained through the chest after a 75 mL Isovue-370 bolus tracked intravenous contrast bolus secondary to the chest CTA P.E. protocol. Dose reduction was employed with automated exposure control. Three-dimensional images were reconstructed by the interpreting radiologist and reviewed. Exam quality: Good contrast enhancement of the vasculature. Pulmonary Arteries: No filling defects identified throughout the main pulmonary arteries along with the lobar, segmental and visualized subsegmental branches. Aorta: No aortic dissection identified. Lungs: No opacification or consolidation. No significant atelectasis. No parenchymal or pleural-based mass. Pleural fluid: None. Heart/Great vessels: Unremarkable. Mediastinum/Mayte: No mediastinal or hilar mass. Soft tissues chest wall/Neck base: No abnormality identified. Upper abdomen: See dedicated CT. Osseous structures: No suspicious osseous lesions. [employer] Carlos Dominguez MD - 05/21/2022 Patient Name: BRITTNEY ALCOCER : 1975 Exam Date/Time: 05/21/2022 19:04 Procedure: CT CHEST ANGIOGRAM W AND/OR WO IV CONTRAST Ordering Provider: MADDOX NICHOLAS Reason For Exam: left side pain, worse taking deep breath, elevated D-dimer Examination: CTA chest Clinical Indication: Suspected pulmonary embolism Comparison: July 09, 2017 Findings: Serial axial [address] images were obtained through the chest after a 75 mL Isovue-370 bolus tracked intravenous contrast bolus secondary to the chest CTA P.E. protocol. Dose reduction was employed with automated exposure control. Three-dimensional images were reconstructed by the interpreting radiologist and reviewed. Exam quality: Good contrast enhancement of the vasculature. Pulmonary Arteries: No filling defects identified throughout the main pulmonary arteries along with the lobar, segmental and visualized subsegmental branches. Aorta: No aortic dissection identified. Lungs: No opacification or consolidation. No significant atelectasis. No parenchymal or pleural-based mass. Pleural fluid: None. Heart/Great vessels: Unremarkable. Mediastinum/Mayte: No mediastinal or hilar mass. Soft tissues chest wall/Neck base: No abnormality identified. Upper abdomen: See dedicated CT. Osseous structures: No suspicious osseous lesions. IMPRESSION: Impression: No evidence of pulmonary embolus or other acute finding of the chest. Report Dictated on Electronically Signed By: Carlos Dominguez Electronically Signed Date/Time: 05/21/2022 7:14 PM EDT [facility] Radiology Study observation (narrative) [facility] CTA Chest vessels WO and W c ontrast IVOrdered By: Carlos Dmoinguez on 05-21-2022 [employer] [facility] Work Phone: Fibrin D-dimer FEU (PPP) [Ma ss/Vol]on 05-21-2022 Interpretation and review of laboratory results Abnormal [facility] D-Dimer values of <0.50 mg/L FEU can be used in combination with a pre-test probability model (e.g. Well's) to exclude pulmonary embolism (PE) disease, as well as an aid in the diagnosis of deep vein thrombosis (DVT). [facility] Laboratory - Chemistry and C hemistry - challengeOrdered By: Snow Beebe on 05-21-2022 Troponin I.cardiac [Mass/Vol] 0.00 ng/mL 0.00 - 0.08 ng/mL [facility] Laboratory - Coagulationon 0 05-21-2022 Fibrin D-dimer FEU (PPP) [Mass/Vol] 0.95 mg/L High NINF - 0.50 mg/L [facility] No Panel Informationon 05-21 P [place] 22 degrees [facility] MA Interval 147 ms [facility] QRS [place] 28 degrees [facility] QRSD [facility]val [facility] 356 ms [facility] QTC Interval 404 ms [facility] T Wave [place] 13 degrees [facility] Sinus rhythm Compared to ECG 10/19/2020 16:10:06 No significant changes Electronically Signed On 05-21-2022 18:35:28 EDT by Ángel Maddox CV Ángel Sosa MD - 05/21/2022 IMPRESSION: Sinus rhythm Compared to ECG 10/19/2020 16:10:06 No significant changes Electronically Signed On 05-21-2022 18:35:28 EDT by Ángel Maddox [facility] No Panel InformationOrdered By: Snow Beebe on 05-21-2022 Interpretation and review of laboratory results Normal [facility] Performed by: [facility] [place] [facility], [address] [place] [address] CLIA ID: [id number] [facility] Urinalysis complete panel (U )on 05-21-2022 Bilirubin Ql (U) Negative Negative mg/dL [facility] Clarity (U) Clear Clear [facility] Color (U) Light Yellow Lt. Yellow [facility] Glucose Ql (U) Normal Normal (<70) mg/dL [facility] Hemoglobin Ql (U) Negative Negative mg/dL [facility] Interpretation and review of laboratory results Abnormal [facility] Ketones (U) [Mass/Vol] Trace Abnormal Negat nely mg/dL [facility] Leukocyte esterase Test strip Ql (U) Negative Negative Jesus/uL [facility] Nitrite Ql (U) Negative Negative [facility] th pH (U) 6.5 [pH] 5.0 - 8.0 pH [facility] Protein (U) [Mass/Vol] Negative Negat nely mg/dL [facility] Specific gravity (U) [Rel density] High 1.005 - 1.030 [facility] Urobilinogen (U) [Mass/Vol] Normal Normal (0-1) mg/dL [facility] Vital signson 05-21-2022 Heart rate 77 /min bpm [facility] XR Chest Single viewon 05-21 1. No acute finding. Report Dictated on Electronically Signed By: Farrukh Billings Electronically Signed Date/Time: 05/21/2022 5:29 PM EDT [facility] Patient Name: BRITTNEY MORA : 1975 Exam Date/Time: 05/21/2022 17:26 Procedure: XR CHEST 1 VIEW Ordering Provider: MADDOX NICHOLAS Reason For Exam: CHEST PAIN SINGLE FRONTAL VIEW OF THE CHEST CLINICAL INDICATION: CHEST PAIN TECHNIQUE: Single frontal view of the chest COMPARISON: None FINDINGS: Lungs show no significant consolidation. No pleural effusion or pneumothorax. No vascular congestion. Heart size normal. [facility] Farrukh Billings MD - 05/21/2022 Patient Name: BRITTNEY ALCOCER : 1975 Exam Date/Time: 05/21/2022 17:26 Procedure: XR CHEST 1 VIEW Ordering Provider: MADDOX NICHOLAS Reason For Exam: CHEST PAIN SINGLE FRONTAL VIEW OF THE CHEST CLINICAL INDICATION: CHEST PAIN TECHNIQUE: Single frontal view of the chest COMPARISON: None FINDINGS: Lungs show no significant consolidation. No pleural effusion or pneumothorax. No vascular congestion. Heart size normal. IMPRESSION: 1. No acute finding. Report Dictated on Electronically Signed By: Farrukh Billings Electronically Signed Date/Time: 05/21/2022 5:29 PM EDT [facility] Radiology Study observation (narrative) [facility] XR Chest Single viewOrdered By: Farrukh Billings on 05-21-2022 [facility] Work Phone: Absolute lymphocyte countOrd ered By: Dr. Posadas on 01-14-2022 Lymphocytes Auto (Unsp spec) [#/Vol] 2.16 10*3/uL 0.83-4.51 [facility] Basophil percentageOrdered B y: Dr. Posadas on 01-14-2022 Basophil percentage 0 SEEN /hpf 0-5 [facility] Basophils/100 WBC (Bld) 0.5 % 0-1 [facility] Bilirubin [Mass/Vol] 0.40 mg/dL 0.20-1.00 [facility] Comment on above: For patients on eltr ombopag therapy, use of Dimension [place] TBIL is not recommended. Chloride [Moles/Vol] 111 mmol/L 98-107 [facility] Eosinophils/100 WBC (Bld) 2.4 % 0-5 [facility] Glucose [Mass/Vol] 111 mg/dL 74-106 [facility] Comment on above: Fasting Glucose resu lt from 100 to 125 mg/dL suggests IMPAIRED HOMEOSTASIS per A.D.A. criteria. Neutrophils (Bld) [#/Vol] 3.4 10*3/uL 2.0-7.7 [facility] Neutrophils/100 WBC (Bld) 54.7 % 47-70 [facility] Potassium [Moles/Vol] 3.7 mmol/L 3.5-5.1 [facility] Protein [Mass/Vol] 7.4 g/dL 6.4-8.2 [facility] Sodium [Moles/Vol] 141 mmol/L 136-145 [facility] WBC (Bld) [#/Vol] 6.3 10*3/uL 4.4-11.0 [facility] Bilirubin Test strip Ql (U)O rdered By: Dr. Posadas on 01-14-2022 Bilirubin Ql (U) Negative Negative [facility] Blood erythrocytes count (nu mber/volume)Ordered By: Dr. Posadas on 01-14-2022 RBC (Bld) [#/Vol] 4.55 10*6/uL 4.2-5.4 [facility] Blood hemoglobin measurement (mass/volume)Ordered By: Dr. Posadas on 01-14-2022 Hemoglobin (Bld) [Mass/Vol] 14.9 g/dL 12.0-15.0 [facility] Blood lymphocytes/100 leukoc ytesOrdered By: Dr. Posadas on 01-14-2022 Lymphocytes/100 WBC (Bld) 34.6 % 19-41 [facility] Blood monocytes/100 leukocyt esOrdered By: Dr. Posadas on 01-14-2022 Monocytes/100 WBC (Bld) 7.0 % 0-10 [facility] Blood platelet mean volumeOr dered By: Dr. Posadas on 01-14-2022 Platelet mean volume (Bld) [Entitic vol] 9.3 fL 6.2-12.0 [facility] Determination of erythrocyte mean corpuscular volume (MCV)Ordered By: Dr. Posadas on 01-14-2022 MCV (RBC) [Entitic vol] 94.3 fL 81-99 [facility] Direct bilirubinOrdered By: Dr. Posadas on 01-14-2022 Bilirubin.direct [Mass/Vol] 0.11 mg/dL 0.00-0.30 [facility] Hematocrit Auto (Bld) [Volum e fraction]Ordered By: Dr. Posadas on 01-14-2022 Hematocrit (Bld) [Volume fraction] 42.9 % 37-47 [facility] Ketones Test strip Ql (U)Ord ered By: Dr. Posadas on 01-14-2022 Ketones Ql (U) Negative Negative [facility] Laboratory - Chemistry and C hemistry - challengeOrdered By: Dr. Posadas on 01-14-2022 ALP [Catalytic activity/Vol] 116 U/L 45-117 [facility] ALT [Catalytic activity/Vol] 58 U/L 13-56 [facility] CO2 [Moles/Vol] 29.0 mmol/L 21.0-32.0 [facility] Globulin (S) [Mass/Vol] 3.7 g/dL 2.2-4.2 [facility] Urea nitrogen/Creatinine [Mass ratio] 16.4 mg/mg 10-20 [facility] Laboratory - Hematology and Cell countsOrdered By: Dr. Posadas on 01-14-2022 Erythrocyte distribution width (RBC) [Entitic vol] 45.2 fL 35.1-43.9 [facility] Erythrocyte distribution width (RBC) [Ratio] 13.2 % 11.6-14.6 [facility] Immature granulocytes/100 WBC (Bld) 0.800 % 0.0-0.9 [facility] Comment on above: IG% - Immature Granu locytes (promyelocytes, myelocytes and metamyelocytes) > 1% indicates that a LEFT SHIFT is Present. MCH (RBC) [Entitic mass] 32.7 pg 27.0-32.0 [facility] Nucleated RBC/100 WBC (Bld) [Ratio] 0 % 0-5 [facility] MCHC Auto (RBC) [Mass/Vol]Or dered By: Dr. Posadas on 01-14-2022 MCHC (RBC) [Mass/Vol] 34.7 g/dL 32-36 [facility] Mucus LM Ql (Urine sed)Order ed By: Dr. Posadas on 01-14-2022 Mucus Ql (Urine sed) 0 SEEN /hpf [facility] Nitrite Test strip Ql (U)Ord ered By: Dr. Posadas on 01-14-2022 Nitrite Ql (U) Negative Negative [facility] No Panel InformationOrdered By: Dr. Posadas on 01-14-2022 Estimated Creatinine Clearance Calc 104.01 ml/min [facility] Estimated GFR (MDRD) Amer 100 mL/min >60 [facility] Comment on above: GFR Calc Estimated GFR (MDRD) Non-Af Amer 82 mL/min >60 [facility] Comment on above: Non- GFR Calc Influenza Types A,B Direct FA (RL) [facility] Platelets bldOrdered By: Dr. Posadas on 01-14-2022 Platelets (Bld) [#/Vol] 277 10*3/uL 150-450 [facility] Protein Test strip Ql (U)Ord ered By: Dr. Posadas on 01-14-2022 Protein Ql (U) Negative Negative [facility] Serum or plasma albumin christy urement (mass/volume)Ordered By: Dr. Posadas on 01-14-2022 Albumin [Mass/Vol] 3.7 g/dL 3.2-5.0 [facility] Serum or plasma calcium christy urement (mass/volume)Ordered By: Dr. Posadas on 01-14-2022 Calcium [Mass/Vol] 9.2 mg/dL 8.5-10.1 [facility] Serum or plasma creatinine m easurement (mass/volume)Ordered By: Dr. Posadas on 01-14-2022 Creatinine [Mass/Vol] 0.79 mg/dL 0.55-1.02 [facility] Comment on above: The validity of the calculated GFR & GFRAA in patients over 70 years has not been determined. Clinical correlation is essential. Serum or plasma urea nitroge n measurement (mass/volume)Ordered By: Dr. Posadas on 01-14-2022 Urea nitrogen [Mass/Vol] 13 mg/dL 7-18 [facility] Squamous epithelial cells de tection in urine sediment by light microscopyOrdered By: Dr. Posadas on 01-14-2022 Epithelial cells.squamous LM Ql (Urine sed) 0-5 SEEN /hpf 5-10 [facility] Thin prep Papanicolaou smear with manual screeningOrdered By: Dr. Posadas on 01-14-2022 Thin prep Papanicolaou smear with manual screening 28 U/L 15-37 [facility] Thin prep Papanicolaou smear with manual screening 1 5-15 [facility] Urine blood detectionOrdered By: Dr. Posadas on 01-14-2022 RBC Ql (U) Negative Negative [facility] RBC Ql (U) 0 SEEN /hpf 0-5 [facility] Urine clarityOrdered By: Dr. Posadas on 01-14-2022 Clarity (U) Clear Clear [facility] Urine color determinationOrd ered By: Dr. Posadas on 01-14-2022 Color (U) Yellow Yellow [facility] Urine glucose detectionOrder ed By: Dr. Posadas on 01-14-2022 Glucose Ql (U) Normal mg/dl Normal [facility] Urine leukocyte esterase det ection by dipstickOrdered By: Dr. Posadas on 01-14-2022 Leukocyte esterase Test strip Ql (U) Negative Negative [facility] Urine pHOrdered By: Dr. Med tan on 01-14-2022 pH (U) 8.0 [pH] 5.0 - 8.0 [facility] Urine sediment bacteria coun t by microscopy (number/high power field)Ordered By: Dr. Posadas on 01-14-2022 Bacteria LM.HPF (Urine sed) [#/Area] 0 /[HPF] None Seen [facility] Urine specific gravity measu rementOrdered By: Dr. Posadas on 01-14-2022 Specific gravity (U) [Rel density] 1.015 1.002-1.030 [facility] Urobilinogen Auto test strip Ql (U)Ordered By: Dr. Posadas on 01-14-2022 Urobilinogen Ql (U) Normal mg/dl Normal [facility] US ABD RIGHT UPPER QUADRANTo n 10-27-2021 US ABD RIGHT UPPER QUADRANT * * *Final Report* * * DATE OF EXAM: Oct 27 2021 7:56AM MDU 1032 - US ABD RIGHT UPPER QUADRANT / PROCEDURE REASON: multiple diagnoses * * * * Physician Interpretation * * * * EXAMINATION: RIGHT UPPER QUADRANT ULTRASOUND CLINICAL HISTORY: Epigastric pain. Nausea and vomiting. TECHNIQUE: Sonography of the right upper quadrant was performed. Images were obtained and stored in a permanent archive. MQ: [id number] COMPARISON: CT 09/05/2021 RESULT: Pancreas: Suboptimally visualized due to shadowing bowel gas. Liver: Echotexture: Normal, homogeneous. Echogenicity: Normal Surface contour: Smooth Lesions: None. Biliary: No intrahepatic biliary duct dilation. CBD: 0.6 cm at the hilum. Gallbladder: Prior cholecystectomy Right Kidney: No hydronephrosis. Mild cortical thinning laterally consistent with history of partial nephrectomy. Ascites: None. IMPRESSION: No acute abnormality Suboptimal visualization of the pancreas Brick Picker: [id number] Transcribe Date/Time: Oct 27 2021 8:58A Dictated by : ANIL VAUGHN MD This examination was interpreted and the report reviewed and electronically signed by: ANIL VAUGHN MD on Oct 27 2021 9:00AM EST [id number] Normal [facility] .Auto Diffon 07-13-2021 Basophil, Absolute 0.1 10 3/mcL Normal 0.0-0.2 [facility] ([place]) Comment on above: Performed By: #### G , BMP #### [address] [address] Basophils/100 WBC (Bld) 0.7 % Normal 0.0-2.5 [facility] ([place]) Comment on above: Performed By: #### G FR, BMP #### [address] [address] Eosinophil, Absolute 0.2 10 3/mcL Normal 0.0-0.4 [facility] ([place]) Comment on above: Performed By: #### G FR, BMP #### [address] [address] Eosinophils/100 WBC (Bld) 2.4 % Normal 0.0-7.0 [facility] ([place]) Comment on above: Performed By: #### G FR, BMP #### [address] [address] Lymphocyte, Absolute 2.5 10 3/mcL Normal 0.8-3.9 [facility] ([place]) Comment on above: Performed By: #### G FR, BMP #### [address] [address] Lymphocytes/100 WBC (Bld) 29.8 % Normal 10.0-50.0 [facility] ([place]) Comment on above: Performed By: #### G FR, BMP #### [address] [address] Monocyte, Absolute 0.6 10 3/mcL Normal 0.2-1.0 [facility] ([place]) Comment on above: Performed By: #### G FR, BMP #### [address] [address] Monocytes/100 WBC (Bld) 7.2 % Normal 1.7-13.0 [facility] ([place]) Comment on above: Performed By: #### G FR, BMP #### [address] [address] Neutrophils/100 WBC (Bld) 59.9 % Normal 37.0-80.0 [facility] ([place]) Comment on above: Performed By: #### G FR, BMP #### [address] [address] .GFRon 07-13-2021 GFR 63 ml/min/1.73sqm Normal [facility] ([place]) Comment on above: Result Comment: GFR Population mean for , Non- Americans Ages 20-29 = 116 mL/min/1.73 sq.m. Ages 30-39 = 107 mL/min/1.73 sq.m. Ages 40-49 = 99 mL/min/1.73 sq.m. Ages 50-59 = 93 mL/min/1.73 sq.m. Ages 60-69 = 85 mL/min/1.73 sq.m. Ages 70+ = 75 mL/min/1.73 sq.m. Chronic Kidney Disease: Less than 60 mL/min/1.73 square meters End Stage Renal Disease: Less than 15 mL/min/1.73 square meters Performed By: #### Ann LEWIS, BMP #### [address] [place], [place] [address] GFR Non- 52 ml/min/1.73sqm Normal [facility] ([place]) Comment on above: Result Comment: GFR Population mean for , Non- Americans Ages 20-29 = 116 mL/min/1.73 sq.m. Ages 30-39 = 107 mL/min/1.73 sq.m. Ages 40-49 = 99 mL/min/1.73 sq.m. Ages 50-59 = 93 mL/min/1.73 sq.m. Ages 60-69 = 85 mL/min/1.73 sq.m. Ages 70+ = 75 mL/min/1.73 sq.m. Chronic Kidney Disease: Less than 60 mL/min/1.73 square meters End Stage Renal Disease: Less than 15 mL/min/1.73 square meters Performed By: #### G , BMP #### [address] [place], [place] [address] .MDWon 07-13-2021 Monocyte Distribution Width 17.89 Normal 0.00-20.00 [facility] ([place]) Comment on above: Result Comment: For ED adult patients suspected of sepsis, MDW<=20.0 does not rule out sepsis or risk of sepsis Performed By: #### G FR, BMP #### [address] [address] .NEUABSon 07-13-2021 Neutrophil, Absolute 5.0 10 3/mcL Normal 2.9-6.2 [facility] ([place]) Comment on above: Performed By: #### Ann LEWIS, BMP #### [address] [address] BMPon 07-13-2021 BUN/Creatinine Ratio 13 ratio Normal 7-27 [facility] ([place]) Comment on above: Performed By: #### Ann LEWIS, BMP #### [address] [address] Calcium [Mass/Vol] 10.2 mg/dL Normal 8.4-10.2 [facility] ([place]) Comment on above: Performed By: #### Ann LEWIS, BMP #### [address] [address] Chloride [Moles/Vol] 104 mmol/L Normal 98-107 [facility] ([place]) Comment on above: Performed By: #### Ann LEWIS, BMP #### [address] [address] CO2 [Moles/Vol] 23 mmol/L Normal 22-29 [facility] ([place]) Comment on above: Performed By: #### Ann LEWIS, BMP #### [address] [address] Creatinine [Mass/Vol] 1.12 mg/dL High 0.55-1.02 [facility] ([place]) Comment on above: Performed By: #### Ann LEWIS, BMP #### [address] [address] Electrolyte Balance 12.0 mEq/L Normal 4.0-15.0 [facility] ([place]) Comment on above: Performed By: #### Ann LEWIS, BMP #### [address] [address] Glucose [Mass/Vol] 111 mg/dL High 70-105 [facility] ([place]) Comment on above: Performed By: #### Ann LEWIS, BMP #### [address] [address] Potassium [Moles/Vol] 3.9 mmol/L Normal 3.5-5.1 [facility] ([place]) Comment on above: Performed By: #### Ann LEWIS, BMP #### [address] [address] Sodium [Moles/Vol] 139 mmol/L Normal 136-145 [facility] ([place]) Comment on above: Performed By: #### Ann LEWIS, BMP #### [address] [address] Urea nitrogen [Mass/Vol] 15 mg/dL Normal 7-18 [facility] ([place]) Comment on above: Performed By: #### Ann LEWIS, BMP #### [address] [address] CBCon 07-13-2021 Erythrocyte distribution width (RBC) [Ratio] 14.1 % Normal 11.5-14.5 [facility] ([place]) Comment on above: Performed By: #### Ann LEWIS, BMP #### [address] [address] Hematocrit (Bld) [Volume fraction] 45.9 % Normal 37.0-47.0 [facility] ([place]) Comment on above: Performed By: #### Ann LEWIS, BMP #### [address] [address] Hgb 15.7 G/dL Normal 12.0-16.0 [facility] ([place]) Comment on above: Performed By: #### Ann LEWIS, BMP #### [address] [address] MCH (RBC) [Entitic mass] 31.8 pg High 27.0-31.2 [facility] ([place]) Comment on above: Performed By: #### Ann LEWIS, BMP #### [address] [address] MCHC 34.2 G/dL Normal 33.0-37.0 [facility] ([place]) Comment on above: Performed By: #### Ann LEWIS, BMP #### [address] [address] MCV (RBC) [Entitic vol] 93.1 fL Normal 80.0-94.0 [facility] ([place]) Comment on above: Performed By: #### G FR, BMP #### [address] [address] Platelet 272 10 3/mcL Normal 130-400 [facility] ([place]) Comment on above: Performed By: #### G FR, BMP #### [address] [address] Platelet mean volume (Bld) [Entitic vol] 8.1 fL Normal 7.4-10.4 [facility] ([place]) Comment on above: Performed By: #### G FR, BMP #### [address] [address] RBC 4.93 10 6/mcL Normal 4.20-5.40 [facility] ([place]) Comment on above: Performed By: #### G , BMP #### [address] [address] WBC 8.3 10 3/mcL Normal 4.6-10.8 [facility] ([place]) Comment on above: Performed By: #### G FR, BMP #### [address] [address] [address] HEAD OR BRAIN W/O CONTRAS Ton 07-13-2021 CT HEAD OR BRAIN W/O CONTRAST ORIGINAL EXAMINATION: CT OF THE HEAD WITHOUT CONTRAST 07/13/2021 6:48 pm TECHNIQUE: CT of the head was performed without the administration of intravenous contrast. Automated exposure control, iterative reconstruction, and/or weight based adjustment of the mA/kV was utilized to reduce the radiation dose to as low as reasonably achievable. COMPARISON: None. HISTORY: ORDERING SYSTEM PROVIDED HISTORY: Reason for Exam: pain FINDINGS: No calvarial abnormality identified. Within the brain, no hemorrhage or mass is visible. Ventricles, sulci and rowell-white junctions are preserved. Posterior fossa is unremarkable. IMPRESSION: No acute intracranial abnormality. Interpreted by: Lamonte Frazier MD Preliminary Report By: Lamonte Frazier MD Electronically signed By Lamonte Frazier MD Dictated Date: 07/13/2021 6:57:51 PM Prelim Date: 07/13/2021 6:59:49 PM Sign Date: 07/13/2021 6:59:49 PM Ordering Provider: MADELINE Crain [facility] ([place]) LABORATORYOrdered By: Vashti Varghese on 07-13-2021 Basophil, Absolute 0.1 103/mcL Invalid Interpretation Code 0.0 - 0.2 10^3/mcL AO Workflow SS Basophils/100 WBC (Bld) 0.7 % Invalid Interpretation Code 0.0 - 2.5 % AO Workflow SS Eosinophil, Absolute 0.2 103/mcL Invalid Interpretation Code 0.0 - 0.4 10^3/mcL AO Workflow SS Eosinophils/100 WBC (Bld) 2.4 % Invalid Interpretation Code 0.0 - 7.0 % AO Workflow SS Erythrocyte distribution width (RBC) [Ratio] 14.1 % Invalid Interpretation Code 11.5 - 14.5 % AO Workflow SS Hematocrit (Bld) [Volume fraction] 45.9 % Invalid Interpretation Code 37.0 - 47.0 % AO Workflow SS Hgb 15.7 G/dL Invalid Interpretation Code 12.0 - 16.0 G/dL AO Workflow SS Lymphocyte, Absolute 2.5 103/mcL Invalid Interpretation Code 0.8 - 3.9 10^3/mcL AO Workflow SS Lymphocytes/100 WBC (Bld) 29.8 % Invalid Interpretation Code 10.0 - 50.0 % AO Workflow SS MCH (RBC) [Entitic mass] 31.8 pg Invalid Interpretation Code 27.0 - 31.2 pg AO Workflow SS MCHC 34.2 G/dL Invalid Interpretation Code 33.0 - 37.0 G/dL AO Workflow SS MCV (RBC) [Entitic vol] 93.1 fL Invalid Interpretation Code 80.0 - 94.0 fL AO Workflow SS Monocyte distribution width Auto (Bld) [Entitic vol] 17.89 Invalid Interpretation Code 0.00 - 20.00 AO Workflow SS Comment on above: Result Comment: For ED adult patients suspected of sepsis, MDW<=20.0 does not rule out sepsis or risk of sepsis Monocyte, Absolute 0.6 103/mcL Invalid Interpretation Code 0.2 - 1.0 10^3/mcL AO Workflow SS Monocytes/100 WBC (Bld) 7.2 % Invalid Interpretation Code 1.7 - 13.0 % AO Workflow SS Neutrophil, Absolute 5.0 103/mcL Invalid Interpretation Code 2.9 - 6.2 10^3/mcL AO Workflow SS Neutrophils/100 WBC (Bld) 59.9 % Invalid Interpretation Code 37.0 - 80.0 % AO Workflow SS Platelet 272 103/mcL Invalid Interpretation Code 130 - 400 10^3/mcL AO Workflow SS Platelet mean volume (Bld) [Entitic vol] 8.1 fL Invalid Interpretation Code 7.4 - 10.4 fL AO Workflow SS RBC 4.93 106/mcL Invalid Interpretation Code 4.20 - 5.40 10^6/mcL AO Workflow SS WBC 8.3 103/mcL Invalid Interpretation Code 4.6 - 10.8 10^3/mcL AO Workflow SS LABORATORYOrdered By: Jo Ann Gomes on 07-13-2021 Calcium [Mass/Vol] 10.2 mg/dL Invalid Interpretation Code 8.4 - 10.2 mg/dL AO ADM SS Chloride [Moles/Vol] 104 mmol/L Invalid Interpretation Code 98 - 107 mmol/L AO ADM SS CO2 [Moles/Vol] 23 mmol/L Invalid Interpretation Code 22 - 29 mmol/L AO ADM SS Creatinine [Mass/Vol] 1.12 mg/dL Invalid Interpretation Code 0.55 - 1.02 mg/dL AO ADM SS Electrolyte Balance 12.0 mEq/L Invalid Interpretation Code 4.0 - 15.0 mEq/L AO ADM SS Glucose [Mass/Vol] 111 mg/dL Invalid Interpretation Code 70 - 105 mg/dL AO ADM SS Potassium [Moles/Vol] 3.9 mmol/L Invalid Interpretation Code 3.5 - 5.1 mmol/L AO ADM SS Sodium [Moles/Vol] 139 mmol/L Invalid Interpretation Code 136 - 145 mmol/L AO ADM SS Urea nitrogen [Mass/Vol] 15 mg/dL Invalid Interpretation Code 7 - 18 mg/dL AO ADM SS Urea nitrogen/Creatinine [Mass ratio] 13 ratio Invalid Interpretation Code 7 - 27 ratio AO ADM SS LABORATORYOrdered By: SYSTEM SYSTEM on 07-13-2021 GFR 63 ml/min/1.73sqm Invalid Interpretation Code AO Chemistry S GFR Non- 52 ml/min/1.73sqm Invalid Interpretation Code AO Chemistry S Basic Metabolic Panelon 09-1 4-2021 Calcium [Mass/Vol] 10.3 mg/dL Normal 8.4-10.4 [facility] Comment on above: Performed By: #### H EMDF, QWAL2, PT/AP, BMP3 ####[address] [place] [address] Glucose [Mass/Vol] 93 mg/dL Normal 70-100 [facility] Comment on above: Performed By: #### H EMDF, QWAL2, PT/AP, BMP3 ####[address] [place] [address] Urea nitrogen [Mass/Vol] 16 mg/dL Normal 9-20 [facility] Comment on above: Performed By: #### H EMDF, QWAL2, PT/AP, BMP3 ####[address] [place] [address] Anion gap [Moles/Vol] 5 mmol/L Normal 3-13 [facility] Comment on above: Performed By: #### H EMDF, QWAL2, PT/AP, BMP3 ####[address] [place] [address] CO2 [Moles/Vol] 26 mmol/L Normal 22-30 [facility] Comment on above: Performed By: #### H EMDF, QWAL2, PT/AP, BMP3 ####[address] [place] [address] Creatinine [Mass/Vol] 0.90 mg/dL Normal 0.52-1.25 [facility] Comment on above: Performed By: #### H EMDF, QWAL2, PT/AP, BMP3 ####[address] [place] [address] GFR/1.73 sq M.predicted among blacks MDRD (S/P/Bld) [Vol rate/Area] 89.0 mL/min/{1.73_m2} Normal >60 [facility] Comment on above: Performed By: #### H EMDF, QWAL2, PT/AP, BMP3 ####[address] [place] [address] GFR/1.73 sq M.predicted among non-blacks MDRD (S/P/Bld) [Vol rate/Area] 76.8 mL/min/{1.73_m2} Normal >60 [facility] Comment on above: Result Comment: KD O guidelines provide the following GFR categories: Stage GFR(ml/min/1.73 m2) Terms G1 >=90 Normal or high G2 60-89 Mildly decreased* G3a 45-59 Mildly to moderately decreased G3b 30-44 Moderately to severely decreased G4 15-29 Severely decreased G5 <15 Kidney failure *Relative to young adult level. In the absence of evidence of kidney damage, neither GFR category G1 nor G2 fulfill the criteria for CKD. The CKD-EPI equation is validated in individuals 18 years of age and older. Currently the best equation for estimating glomerular filtration rate (GFR) from serum creatinine in children is the Bedside George equation. It is less accurate in patients with extremes of muscle mass, restriction of dietary protein, ingestion of creatine, extra-renal metabolism of creatinine, or treatment with medications that affect renal tubular creatinine secretion. Performed By: #### H EMDF, QWAL2, PT/AP, BMP3 ####[facility] [place] [address] Potassium [Moles/Vol] 4.2 mmol/L Normal 3.5-5.1 [facility] Comment on above: Performed By: #### H EMDF, QWAL2, PT/AP, BMP3 ####[address] [place] [address] Chloride [Moles/Vol] 111 mmol/L High 98-107 [facility] Comment on above: Performed By: #### H EMDF, QWAL2, PT/AP, BMP3 ####[facility] [place] [address] Sodium [Moles/Vol] 142 mmol/L Normal 135-145 [facility] Comment on above: Performed By: #### H EMDF, QWAL2, PT/AP, BMP3 ####[address] [place] [address] CT Head or Brain w/o Contras ton 10-19-2020 CT Head or Brain w/o Contrast Patient [facility]: [id number] Computed Tomography ACCESSION EXAM DATE/TIME PROCEDURE ORDERING PROVIDER [id number] 10/19/2020 15:[address] Head or Brain w/o MD AUGUSTO, RANDY Bains CPT code 73555 Reason For Exam (CT Head or Brain w/o Contrast) classic migraine h/a, but also has h/o stroke. neuro OK Report CT BRAIN WITHOUT CONTRAST CLINICAL INDICATION: classic migraine h/a, but also has h/o stroke. neuro OK TECHNIQUE: CT scan of the brain without IV contrast. Multiplanar reformations. COMPARISON: July,. FINDINGS: No apparent mass or mass effect, hemorrhage, midline shift or hydrocephalus. No evidence of acute cortical infarct. No abnormal, extra-axial fluid or air collection. Osseous calvarium grossly intact. IMPRESSION: 1. No acute intracranial findings. Report Dictated on Workstation: [email or web address] Final Dictating Physician: MD STOKES WENDELL Signed Date and Time: 10/19/2020 4:04 pm Signed by: MD STOKES WENDELL Transcribed Date and Time: 10/19/2020 4:05 Normal [facility] Hemogram w/ Autodiffon 10-19 Abs Baso Cnt 0.0 10*3/uL Normal 0.0-0.2 [facility] Comment on above: Performed By: #### H EMDF, QWAL2, PT/AP, BMP3 #### [facility] [address] [place] [address] Abs Neutrophile Cnt 4.4 10*3/uL Normal 1.8-7.0 [facility] Comment on above: Performed By: #### H EMDF, QWAL2, PT/AP, BMP3 #### [facility] [address] [place] [address] Basophils/100 WBC (Bld) 0.5 % Normal 0.0-2.0 [facility] Comment on above: Performed By: #### H EMDF, QWAL2, PT/AP, BMP3 #### [facility] [address] [place] [address] Eosinophils (Bld) [#/Vol] 0.2 10*3/uL Normal 0.0-0.5 [facility] Comment on above: Performed By: #### H EMDF, QWAL2, PT/AP, BMP3 #### [facility] [address] [place] [address] Eosinophils/100 WBC (Bld) 2.7 % Normal 1.0-6.0 [facility] Comment on above: Performed By: #### H EMDF, QWAL2, PT/AP, BMP3 #### [facility] [address] [place] [address] Erythrocyte distribution width (RBC) [Ratio] 14.2 % Normal 11.5-14.5 [facility] Comment on above: Performed By: #### H EMDF, QWAL2, PT/AP, BMP3 #### [address] [place] [address] Granulocytes/100 WBC (Bld) 60.8 % Normal 40.0-80.0 [facility] Comment on above: Performed By: #### H EMDF, QWAL2, PT/AP, BMP3 #### [facility] [address] [place] [address] Hematocrit (Bld) [Volume fraction] 42.9 % Normal 35.0-47.0 [facility] Comment on above: Performed By: #### H EMDF, QWAL2, PT/AP, BMP3 #### [address] [place] [address] Hemoglobin (Bld) [Mass/Vol] 14.5 g/dL Normal 11.7-16.0 [facility] Comment on above: Performed By: #### H EMDF, QWAL2, PT/AP, BMP3 #### [facility] [address] [place] [address] Lymphocytes (Bld) [#/Vol] 2.1 10*3/uL Normal 1.0-4.3 [facility] Comment on above: Performed By: #### H EMDF, QWAL2, PT/AP, BMP3 #### [facility] [address] [place] [address] Lymphocytes/100 WBC (Bld) 29.1 % Normal 20.0-40.0 [facility] Comment on above: Performed By: #### H EMDF, QWAL2, PT/AP, BMP3 #### [facility] [address] [place] [address] MCH (RBC) [Entitic mass] 32.0 pg Normal 26.0-34.0 [facility] Comment on above: Performed By: #### H EMDF, QWAL2, PT/AP, BMP3 #### [facility] [address] [place] [address] MCHC 33.9 % Normal 32.0-36.0 [facility] Comment on above: Performed By: #### H EMDF, QWAL2, PT/AP, BMP3 #### [facility] [address] [place] [address] MCV (RBC) [Entitic vol] 94.4 fL Normal 79.0-98.0 [facility] Comment on above: Performed By: #### H EMDF, QWAL2, PT/AP, BMP3 #### [facility] [address] [place] [address] Monocytes (Bld) [#/Vol] 0.5 10*3/uL Normal 0.0-0.8 [facility] Comment on above: Performed By: #### H EMDF, QWAL2, PT/AP, BMP3 #### [facility] [address] [place] [address] Monocytes/100 WBC (Bld) 6.9 % Normal 2.0-10.0 [facility] Comment on above: Performed By: #### H EMDF, QWAL2, PT/AP, BMP3 #### [facility] [address] [place] [address] Platelet mean volume (Bld) [Entitic vol] 7.6 fL Normal 7.4-10.4 [facility] Comment on above: Performed By: #### H EMDF, QWAL2, PT/AP, BMP3 #### [facility] [address] [place] [address] Platelets (Bld) [#/Vol] 265 10*3/uL Normal 140-440 [facility] Comment on above: Performed By: #### H EMDF, QWAL2, PT/AP, BMP3 #### [facility] [address] [place] [address] RBC (Bld) [#/Vol] 4.55 10*6/uL Normal 3.80-5.20 [facility] Comment on above: Performed By: #### H EMDF, QWAL2, PT/AP, BMP3 #### [facility] [address] [place] [address] WBC (Bld) [#/Vol] 7.2 10*3/uL Normal 3.6-10.7 [facility] Comment on above: Performed By: #### H EMDF, QWAL2, PT/AP, BMP3 #### [facility] [address] [place] [address] Protime AND APTTon 1 aPTT Coag (Bld) [Time] 26.7 s Normal 20.0-30.5 [facility] Comment on above: Result Comment: NOTE : The therapeutic time for Heparin anticoagulation, based on Xa activity inhibition, is an APTT of 46-80 seconds. Performed By: #### H EMDF, QWAL2, PT/AP, BMP3 ####[facility] [place] [address] INR 1.0 Normal 0.9-1.1 [facility] Comment on above: Result Comment: Peyman mmended Anticoagulant Therapy: SEE BELOW ----- INR of 2.0 - 3.0 : - Prophylaxis of Venous Thrombosis (high-risk surgery) - Treatment of Venous Thrombosis - Treatment of Pulmonary Embolism (Includes tissue heart valves, Acute Myocardial Infarction to prevent systemic embolism, Valvular Heart Disease, and Atrial Fibrillation) ----- INR of 2.5 - 3.5 : - Mechanical Prosthetic Valves (high risk) - If oral anticoagulant therapy is used to prevent Myocardial Infarction Performed By: #### H EMDF, QWAL2, PT/AP, BMP3 ####[facility] [address] [place] [address] PT Coag (PPP) [Time] 10.7 s Normal 9.0-12.0 [facility] Comment on above: Result Comment: . Performed By: #### H EMDF, QWAL2, PT/AP, BMP3 ####[facility] [address] [place] [address] hCG Qual Pregon 10-19-2020 hCG Qual Preg Negative Normal [facility] Comment on above: Result Comment: Refe rence Range: NEGATIVE Effective 04/18/2019, the reference interval for the qualitative test has been updated. This test detects hCG at concentrations of 10 mIU/L or greater in serum. Performed By: #### H EMDF, QWAL2, PT/AP, BMP3 ####[facility] [address] [address] [place] [address] ED Provider Noteon ED Provider Note [facility] EMERGENCY DEPARTMENT ENCOUNTER Pt Name: Brittney Alcocer Birthdate 1975 Date of evaluation: 10/06/2020 Provider: Royal Sunshine, DO CHIEF COMPLAINT Chief Complaint Patient presents with ? Migraine HISTORY OF PRESENT ILLNESS (Location/Symptom, Timing/Onset, Context/Setting, Quality, Duration, Modifying Factors, Severity) Note limiting factors. I wore a mask for the entirety of this encounter. Brittney Alcocer is a 45 y.o. female who presents to the emergency department with migraine headache. States she has a history of chronic migraines. States up until September 06, after she received her first COVID-19 vaccination, she was getting approximately 6 migraines per day for many years. States since the COVID-19 vaccination, she has been getting 20 migraines per day. States her gabapentin does help, the headache waxes and wanes throughout the day. Sometimes it resolves completely during the day and then comes back. States she also takes Aimovig monthly for her migraines. Has not followed up with her PCP over the past month after her headaches have become more frequent. States the headache today feels like the same headache that she feels daily. Is in the front of her scalp behind her eyes and radiates to the top and back of her head. States is associated with nausea and vomiting. States she took Zofran at home with persistent symptoms. Denies any other weakness, numbness, vision loss. Does have some photophobia. Denies any chest pain, shortness of breath, abdominal pain. Nursing Notes were reviewed. REVIEW OF SYSTEMS (2+ for level 4; 10+ for level 5) 14 systems reviewed and otherwise acutely negative except as in the [place]. PAST MEDICAL HISTORY Past Medical History: Diagnosis Date ? Arthritis ? Cancer (HCC) ? Cerebral artery occlusion with cerebral infarction (HCC) ? Chronic kidney disease ? Depression ? Migraine SURGICAL HISTORY Past Surgical History: Procedure Laterality Date ? FINGER SURGERY 2019 ? KIDNEY SURGERY CURRENT MEDICATIONS Current Discharge Medication List CONTINUE these medications which have NOT CHANGED Details ondansetron (ZOFRAN) 8 MG tablet Take 8 mg by mouth every 8 hours as needed for Nausea or Vomiting AIMOVIG 70 MG/ML SOAJ Inject 70 mg into the skin every 30 days atorvastatin (LIPITOR) 40 MG tablet Take 40 mg by mouth daily albuterol sulfate HFA 108 (90 Base) MCG/ACT inhaler Inhale 2 puffs into the lungs every 6 hours as needed for Wheezing Magnesium 400 MG TABS Take 400 mg by mouth daily sertraline (ZOLOFT) 50 MG tablet Take 3 tablets by mouth daily for 90 doses Qty: 90 tablet, Refills: 1 QUEtiapine (SEROQUEL) 100 MG tablet Take 1 tablet by mouth nightly for 30 doses Qty: 30 tablet, Refills: 1 loratadine (CLARITIN) 10 MG tablet Take 10 mg by mouth daily SUMAtriptan (IMITREX) 100 MG tablet Take 100 mg by mouth once as needed for Migraine gabapentin (NEURONTIN) 800 MG tablet Take 800 mg by mouth 3 times daily. pramipexole (MIRAPEX) 0.125 MG tablet Take 0.5 mg by mouth daily as needed famotidine (PEPCID) 40 MG tablet Take 40 mg by mouth daily omeprazole (PRILOSEC) 40 MG delayed release capsule Take 40 mg by mouth daily ALLERGIES Amoxicillin, Aspirin, Celexa [citalopram hydrobromide], Codeine, Effexor [venlafaxine], Morphine, Naproxen, Salicylates, Trazodone and nefazodone, and Ultram [tramadol hcl] FAMILY HISTORY Family History Problem Relation Age of Onset ? Cataracts Mother ? Glaucoma Mother ? No Known Problems Father ? Amblyopia Neg Hx ? Blindness Neg Hx ? Macular Degen Neg Hx ? Retinal Detachment Neg Hx ? Strabismus Neg Hx SOCIAL HISTORY Social History Socioeconomic History ? Marital status: Spouse name: Not on file ? Number of children: Not on file ? Years of education: Not on file ? Highest education level: Not on file Occupational History ? Not on file Tobacco Use ? Smoking status: Current Every Day Smoker Packs/day: 1.00 Years: 34.00 Pack years: 34.00 Types: Cigarettes ? Smokeless tobacco: Never Used Vaping Use ? Vaping Use: Never used Substance and Sexual Activity ? Alcohol use: No ? 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 Sexual activity: Not on file Other Topics Concern ? Not on file Social History Narrative ? Not on file Social Determinants of Health Financial Resource Strain: ? Difficulty of Paying Living Expenses: Food Insecurity: ? Worried About Running Out of Food in the Last Year: ? Ran Out of Food in the Last Year: Transportation Needs: ? Lack of Transportation (Medical): ? Lack of Transportation (Non-Medical): Physical Activity: ? Days of Exercise per Week: ? Minutes of Exercise per Session: Stress: ? Feeling of Stress : Social Connections: ? Frequency of Communication with Friends and Family: ? Frequency of Social Gatherings with Fri (more content not included)... Normal [facility] CULTURE URINEon 06-24-2020 CULTURE URINE 1 Organism Streptococcus agalactiae (Group B) 10,000-50,000 CFU/ml Susceptibility testing not routinely performed. Group B streptococcus is universally susceptible to beta-lactam antibiotics and vancomycin. If patient is beta-lactam allergic, please call [facility] Microbiology lab ([phone]) within 2 days to request susceptibility testing. If isolated from urine, Group B strep may indicate colonization or infection. Normal [facility] Comment on above: Performed By: #### C /UR ####[id number] [place] [address] [address] Abdomen/Pelvis w/o Contra pepper 06-23-2020 CT Abdomen/Pelvis w/o Contrast Patient [facility]: [id number] Computed Tomography ACCESSION EXAM DATE/TIME PROCEDURE ORDERING PROVIDER [id number] 06/23/2020 08:[address] Abdomen/Pelvis (No MD SAURAV, GEOVANNI PO, No IV) CPT code 45452 Reason For Exam (CT Abdomen/Pelvis (No PO, No IV)) flank pain Report CT scan abdomen: 06/23/[address] scan pelvis: 06/23/2020 . Clinical Information: Pain . CT scan abdomen: CT scans of the abdomen were performed at 3 mm slice thickness with no oral or intravenous contrast as requested. Comparison was made to prior study 01/02/2020. Limited slices through the lower lung ramos reveal no pleural or parenchymal abnormalities in the lung bases. Without the administration of oral or intravenous contrast, evaluation of solid and hollow organs is limited. The liver, spleen and pancreas are grossly normal. No free peritoneal fluid or air is seen. No retroperitoneal lymphadenopathy is identified. There is calcification along the right kidney margin probably from prior cryoablation. This is unchanged from the prior study. The kidneys are otherwise within normal limits without evidence of hydronephrosis. No abnormal calcifications are identified in the kidneys or along the course of the ureters. CT scan pelvis: CT scans the pelvis were performed at 3 mm slice thickness with no oral or intravenous contrast as requested. No abnormal loops of bowel are identified. No inflammatory changes in the mesentery are seen. The appendix was isolated as a separate structure and appears unremarkable. No pelvic mass lesions, fluid collections or lymphadenopathy is seen. No abnormal calcifications are identified to suggest distal ureteral calculi. Impression: Study limited due to lack of contrast. No significant interval change from prior study. Computed Tomography Report Report Dictated on Final Dictating Physician: MD CARRASCO RISA Signed Date and Time: 06/23/2020 9:00 am Signed by: MD CARRASCO RISA Transcribed Date and Time: 06/23/2020 9:01 Normal [facility] Complete Urinalysison 2020 Bacteria Few (1-5) Abnormal Negative [facility] Comment on above: Result Comment: . Performed By: #### C UA2 #### [facility] [address] [place] [address] RBC LM.HPF (Urine sed) [#/Area] /[HPF] Abnormal 0-2 [facility] Comment on above: Result Comment: . Performed By: #### C UA2 #### [facility] [address] [place] [address] Squamous Epithelial 3 - 5 Normal 3-5 [facility] Comment on above: Result Comment: . Performed By: #### C UA2 #### [facility] [address] [place] [address] VOLUME, URINE 8-12 ml Normal [facility] Comment on above: Result Comment: . Performed By: #### C UA2 #### [facility] [address] [place] [address] WBC, Urine 0 - 2 Normal 0-5 [facility] Comment on above: Result Comment: . Performed By: #### C UA2 #### [facility] [address] [place] [address] Appearance (U) Clear Normal Clear [facility] Comment on above: Result Comment: . Performed By: #### C UA2 #### [facility] [address] [place] [address] Bilirubin,Urine Negative Normal Negative [facility] Comment on above: Result Comment: . Performed By: #### C UA2 #### [facility] [address] [place] [address] Color (U) LIGHT YELLOW Normal Lt. Yellow [facility] Comment on above: Result Comment: . Performed By: #### C UA2 #### [facility] [address] [place] [address] Glucose Ql (U) Normal Normal Normal (<70) [facility] Comment on above: Result Comment: . Performed By: #### C UA2 #### [facility] [address] [place] [address] Ketone,Urine Negative Normal Negative [facility] Comment on above: Result Comment: . Performed By: #### C UA2 #### [facility] [address] [place] [address] Leukocytes,Urine Negative Normal Negative [facility] Comment on above: Result Comment: . Performed By: #### C UA2 #### [facility] [address] [place] [address] Nitrites,Urine Negative Normal Negative [facility] Comment on above: Result Comment: . Performed By: #### C UA2 #### [facility] [address] [place] [address] Occult Blood,Urine > 1.0 Abnormal Negative [facility] Comment on above: Result Comment: . Performed By: #### C UA2 #### [facility] [address] [place] [address] pH,Urine 6.5 Normal 5.0-8.0 [facility] Comment on above: Result Comment: . Performed By: #### C UA2 #### [facility] [address] [place] [address] Specific Deer,Urine 1.020 Normal 1.005 - 1.030 [facility] Comment on above: Result Comment: . Performed By: #### C UA2 #### [facility] [address] [place] [address] Total Protein,Urine Negative Normal Negative [facility] Comment on above: Result Comment: . Performed By: #### C UA2 #### [facility] [address] [place] [address] Urobilinogen,Urine Normal Normal Normal (0-1) [facility] Comment on above: Result Comment: . Performed By: #### C UA2 #### [facility] [address] [place] [address] XR MANDIBLE 4V PA/SOFÍA/OBL X2on 03-29-2020 XR MANDIBLE 4V PA/SOFÍA/OBL X2 Final Report DATE OF EXAM: Mar 29 2020 5:41PM LDX 5235 - XR MANDIBLE 4V PA/SOFÍA/OBL X2 / PROCEDURE REASON: Bilateral temporomandibular joint pain Physician Interpretation EXAM TITLE: XR MANDIBLE 4V PA/SOFÍA/OBL X2 DATE: 03/29/2020 INDICATION: Bilateral TMJ pain COMPARISON: None. AP, lateral, oblique and Lorraine's views of the mandible show no gross abnormality. No fracture. No bone erosion or bone destruction. IMPRESSION: No significant findings noted. The temporomandibular joints are difficult regions to evaluate with plain films. If patient's pain persists, TMJ MRI may be helpful Brick Picker: [email or web address] Transcribe Date/Time: Mar 30 2020 9:45A Dictated by : SULMA PERAZA MD This examination was interpreted and the report reviewed and electronically signed by: SULMA PERAZA MD on Mar 30 2020 9:47AM EST Normal [facility] Basic Metabolic Panelon 11-2 Calcium [Mass/Vol] 9.7 mg/dL Normal 8.4-10.4 [facility] Comment on above: Performed By: #### B MP3, HEMDF, LFT3, LIPA4 ####[address] [place] [place] [address] Glucose [Mass/Vol] 102 mg/dL High 70-100 [facility] Comment on above: Performed By: #### B MP3, HEMDF, LFT3, LIPA4 ####[address] [place] [place] [address] Urea nitrogen [Mass/Vol] 16 mg/dL Normal 7-20 [facility] Comment on above: Performed By: #### B MP3, HEMDF, LFT3, LIPA4 ####[address] [place] [address] Anion Gap 6 Normal [facility] Comment on above: Performed By: #### B MP3, HEMDF, LFT3, LIPA4 ####[address] [place] [place] [address] CO2 [Moles/Vol] 25 mmol/L Normal 22-30 [facility] Comment on above: Performed By: #### B MP3, HEMDF, LFT3, LIPA4 ####[address] [place] [place] [address] Creatinine [Mass/Vol] 0.83 mg/dL Normal 0.52-1.25 [facility] Comment on above: Performed By: #### B MP3, HEMDF, LFT3, LIPA4 ####[facility] [place] [address] GFR/1.73 sq M.predicted among blacks MDRD (S/P/Bld) [Vol rate/Area] mL/min/{1.73_m2} Normal >60 [facility] Comment on above: Performed By: #### B MP3, HEMDF, LFT3, LIPA4 ####[address] [place] [address] GFR/1.73 sq M.predicted among non-blacks MDRD (S/P/Bld) [Vol rate/Area] 85.2 mL/min/{1.73_m2} Normal >60 [facility] Comment on above: Result Comment: KDIG O guidelines provide the following GFR categories: Stage GFR(ml/min/1.73 m2) Terms G1 >=90 Normal or high G2 60-89 Mildly decreased* G3a 45-59 Mildly to moderately decreased G3b 30-44 Moderately to severely decreased G4 15-29 Severely decreased G5 <15 Kidney failure *Relative to young adult level. In the absence of evidence of kidney damage, neither GFR category G1 nor G2 fulfill the criteria for CKD. The CKD-EPI equation is validated in individuals 18 years of age and older. Currently the best equation for estimating glomerular filtration rate (GFR) from serum creatinine in children is the Bedside George equation. It is less accurate in patients with extremes of muscle mass, restriction of dietary protein, ingestion of creatine, extra-renal metabolism of creatinine, or treatment with medications that affect renal tubular creatinine secretion. Performed By: #### B MP3, HEMDF, LFT3, LIPA4 ####[facility] [place] [address] Potassium [Moles/Vol] 4.0 mmol/L Normal 3.5-5.1 [facility] Comment on above: Performed By: #### B MP3, HEMDF, LFT3, LIPA4 ####[facility] [place] [address] Sodium [Moles/Vol] 138 mmol/L Normal 135-145 [facility] Comment on above: Performed By: #### B MP3, HEMDF, LFT3, LIPA4 ####[address] [place] [address] Chloride [Moles/Vol] 108 mmol/L High 98-107 [facility] Comment on above: Performed By: #### B MP3, HEMDF, LFT3, LIPA4 ####[facility] [place] [address] CT Abdomen/Pelvis w/ Contras ton 01-02-2020 CT Abdomen/Pelvis w/ Contrast Patient Name: BRITTNEY ALCOCER CT Exam Date/Time 01/02/2020 15:19:[address] Abdomen/Pelvis w/ IV Contrast (IV Onl Ordering Physician ÁNGEL REDDY Accession Number [id number] CPT4 Codes 71896 (CT Abdomen/Pelvis w/ IV Contrast (IV Onl), Q9967 (CT ISOVUE 370MG/[id number] ndMLand1) Reason For Exam post hysterectomy with diffuse pain, worst RUQ Report EXAM: CT Abdomen and pelvis INDICATION: post hysterectomy with diffuse pain, worst RUQ COMPARISON: none TECHNIQUE: CT of the abdomen and pelvis was performed with contrast (75 mL of Isovue 370 was injected intravenously). Coronal and sagittal reformats were obtained. FINDINGS: LOWER CHEST: within normal limits. ABDOMEN: LIVER: within normal limits. BILE DUCTS: normal caliber. GALLBLADDER: Status post cholecystectomy. PANCREAS: within normal limits. SPLEEN: within normal limits. ADRENALS: within normal limits. KIDNEYS: There is cortical scarring about the interpolar region of the right kidney. PELVIS: REPRODUCTIVE ORGANS: Status post hysterectomy mild stranding within the surgical bed. No pelvic lymphadenopathy. URETERS: within normal limits. BLADDER: within normal limits. BOWEL: Normal caliber. Appendix is nondilated. No enlarged mesenteric lymph nodes. PERITONEUM: No loculated fluid collection or pneumoperitoneum. VESSELS: Within normal limits. LYMPH NODES: No enlarged nodes. RETROPERITONEUM: within normal limits. ABDOMINAL WALL: within normal limits. BONES: within normal limits. IMPRESSION: Status post hysterectomy with mild infiltration about the surgical bed. No loculated pelvic fluid collection. Report Dictated on Final Dictating Physician: MD HERCULES KEVIN Signed Date and Time: 01/02/2020 3:55 pm Signed by: MD HERCULES KEVIN Transcribed Date and Time: 01/02/2020 3:56 Normal [facility] Complete Urinalysison 2019 Appearance (U) Clear Normal Clear [facility] Comment on above: Result Comment: . Performed By: #### C UA2 #### [facility] [address] [place] [address] Bilirubin,Urine Negative Normal Negative [facility] Comment on above: Result Comment: . Performed By: #### C UA2 #### [facility] [address] [place] [address] Color (U) LIGHT YELLOW Normal Lt. Yellow [facility] Comment on above: Result Comment: . Performed By: #### C UA2 #### [facility] [address] [place] [address] Glucose Ql (U) Normal Normal Normal (<70) [facility] Comment on above: Result Comment: . Performed By: #### C UA2 #### [facility] [address] [place] [address] Ketone,Urine Negative Normal Negative [facility] Comment on above: Result Comment: . Performed By: #### C UA2 #### [facility] [address] [place] [address] Leukocytes,Urine Negative Normal Negative [facility] Comment on above: Result Comment: . Performed By: #### C UA2 #### [facility] [address] [place] [address] Nitrites,Urine Negative Normal Negative [facility] Comment on above: Result Comment: . Performed By: #### C UA2 #### [facility] [address] [place] [address] Occult Blood,Urine Negative Normal Negative [facility] Comment on above: Result Comment: . Performed By: #### C UA2 #### [facility] [address] [place] [address] pH,Urine 6.5 Normal 5.0-8.0 [facility] Comment on above: Result Comment: . Performed By: #### C UA2 #### [facility] [address] [place] [address] Specific Deer,Urine 1.012 Normal 1.005 - 1.030 [facility] Comment on above: Result Comment: . Performed By: #### C UA2 #### [facility] [address] [place] [address] Total Protein,Urine Negative Normal Negative [facility] Comment on above: Result Comment: . Performed By: #### C UA2 #### [facility] [address] [place] [address] Urobilinogen,Urine Normal Normal Normal (0-1) [facility] Comment on above: Result Comment: . Performed By: #### C UA2 #### [facility] [address] [place] [address] Hemogram w/ Autodiffon 01-01 Abs Baso Cnt 0.1 10*3/uL Normal 0.0-0.2 [facility] Comment on above: Performed By: #### B MP3, HEMDF, LFT3, LIPA4 ####[facility] [place] [address] Abs Neutrophile Cnt 4.1 10*3/uL Normal 1.8-7.0 [facility] Comment on above: Performed By: #### B MP3, HEMDF, LFT3, LIPA4 ####[facility] [place] [address] Basophils/100 WBC (Bld) 1.3 % Normal 0.0-2.0 [facility] Comment on above: Performed By: #### B MP3, HEMDF, LFT3, LIPA4 ####[facility] [place] [address] Eosinophils (Bld) [#/Vol] 0.4 10*3/uL Normal 0.0-0.5 [facility] Comment on above: Performed By: #### B MP3, HEMDF, LFT3, LIPA4 ####[facility] [place] [address] Eosinophils/100 WBC (Bld) 5.8 % Normal 1.0-6.0 [facility] Comment on above: Performed By: #### B MP3, HEMDF, LFT3, LIPA4 ####[address] [place] [address] Erythrocyte distribution width (RBC) [Ratio] 14.2 % Normal 11.5-14.5 [facility] Comment on above: Performed By: #### B MP3, HEMDF, LFT3, LIPA4 ####[address] [place] [address] Granulocytes/100 WBC (Bld) 55.8 % Normal 40.0-80.0 [facility] Comment on above: Performed By: #### B MP3, HEMDF, LFT3, LIPA4 ####[address] [place] [address] Hematocrit (Bld) [Volume fraction] 40.3 % Normal 35.0-47.0 [facility] Comment on above: Performed By: #### B MP3, HEMDF, LFT3, LIPA4 ####[address] [place] [address] Hemoglobin (Bld) [Mass/Vol] 13.9 g/dL Normal 11.7-16.0 [facility] Comment on above: Performed By: #### B MP3, HEMDF, LFT3, LIPA4 ####[address] [place] [address] Lymphocytes (Bld) [#/Vol] 2.2 10*3/uL Normal 1.0-4.3 [facility] Comment on above: Performed By: #### B MP3, HEMDF, LFT3, LIPA4 ####[address] [place] [address] Lymphocytes/100 WBC (Bld) 30.5 % Normal 20.0-40.0 [facility] Comment on above: Performed By: #### B MP3, HEMDF, LFT3, LIPA4 ####[address] [place] [address] MCH (RBC) [Entitic mass] 32.3 pg Normal 26.0-34.0 [facility] Comment on above: Performed By: #### B MP3, HEMDF, LFT3, LIPA4 ####[facility] [place] [address] MCHC 34.5 % Normal 32.0-36.0 [facility] Comment on above: Performed By: #### B MP3, HEMDF, LFT3, LIPA4 ####[address] [place] [address] MCV (RBC) [Entitic vol] 93.7 fL Normal 79.0-98.0 [facility] Comment on above: Performed By: #### B MP3, HEMDF, LFT3, LIPA4 ####[address] [place] [address] Monocytes (Bld) [#/Vol] 0.5 10*3/uL Normal 0.0-0.8 [facility] Comment on above: Performed By: #### B MP3, HEMDF, LFT3, LIPA4 ####[address] [place] [address] Monocytes/100 WBC (Bld) 6.6 % Normal 2.0-10.0 [facility] Comment on above: Performed By: #### B MP3, HEMDF, LFT3, LIPA4 ####[facility] [place] [address] Platelet mean volume (Bld) [Entitic vol] 8.1 fL Normal 7.4-10.4 [facility] Comment on above: Performed By: #### B MP3, HEMDF, LFT3, LIPA4 ####[facility] [place] [address] Platelets (Bld) [#/Vol] 276 10*3/uL Normal 140-440 [facility] Comment on above: Performed By: #### B MP3, HEMDF, LFT3, LIPA4 ####[address] [place] [address] RBC (Bld) [#/Vol] 4.30 10*6/uL Normal 3.80-5.20 [facility] Comment on above: Performed By: #### B MP3, HEMDF, LFT3, LIPA4 ####[facility] [place] [address] WBC (Bld) [#/Vol] 7.3 10*3/uL Normal 3.6-10.7 [facility] Comment on above: Performed By: #### B MP3, HEMDF, LFT3, LIPA4 ####[facility] [place] [address] Hepatic Functionon 01-01-202 0 ALP [Catalytic activity/Vol] 122 U/L Normal 38-126 [facility] Comment on above: Performed By: #### B MP3, HEMDF, LFT3, LIPA4 ####[facility] [place] [address] ALT [Catalytic activity/Vol] 21 U/L Normal 0-34 [facility] [facility] Comment on above: Result Comment: The ALT test is performed by an updated assay method. Please note that the reference intervals have been changed and are now sex specific. Performed By: #### B MP3, HEMDF, LFT3, LIPA4 ####[facility] [place] [address] AST [Catalytic activity/Vol] 19 U/L Normal 15-46 [facility] Comment on above: Performed By: #### B MP3, HEMDF, LFT3, LIPA4 ####[facility] [place] [address] Bilirubin [Mass/Vol] 0.5 mg/dL Normal 0.2-1.3 [facility] Comment on above: Performed By: #### B MP3, HEMDF, LFT3, LIPA4 ####[facility] [place] [address] Protein [Mass/Vol] 7.8 g/dL Normal 6.3-8.2 [facility] Comment on above: Performed By: #### B MP3, HEMDF, LFT3, LIPA4 ####[facility] [place] [address] Bilirubin.indirect [Mass/Vol] 0.0 mg/dL Normal 0.0-0.3 [facility] Comment on above: Performed By: #### B MP3, HEMDF, LFT3, LIPA4 ####[facility] [place] [address] Albumin [Mass/Vol] 4.5 g/dL Normal 3.5-5.0 [facility] Comment on above: Performed By: #### B MP3, HEMDF, LFT3, LIPA4 ####[facility] [place] [address] Lipaseon 01-02-2020 Lipase [Catalytic activity/Vol] 376 U/L High 23-300 [facility] Comment on above: Performed By: #### B MP3, HEMDF, LFT3, LIPA4 ####[facility] [place] [address] Basic Metabolic Panelon 10-07 Anion Gap 8 Normal [facility] Comment on above: Performed By: #### B MP3, HEMDF, QWAL #### [facility] [address] [place] [address] Calcium [Mass/Vol] 9.5 mg/dL Normal 8.4-10.4 [facility] Comment on above: Performed By: #### B MP3, HEMDF, QWAL #### [facility] [address] [place] [address] CO2 [Moles/Vol] 26 mmol/L Normal 22-30 [facility] Comment on above: Performed By: #### B MP3, HEMDF, QWAL #### [facility] [address] [place] [address] Glucose [Mass/Vol] 113 mg/dL High 70-100 [facility] Comment on above: Performed By: #### B MP3, HEMDF, QWAL #### [facility] [address] [place] [address] Urea nitrogen [Mass/Vol] 22 mg/dL High 7-20 [facility] Comment on above: Performed By: #### B MP3, HEMDF, QWAL #### [facility] [address] [place] [address] Creatinine [Mass/Vol] 0.84 mg/dL Normal 0.52-1.25 [facility] Comment on above: Performed By: #### B MP3, HEMDF, QWAL #### [facility] [address] [place] [address] GFR/1.73 sq M.predicted among blacks MDRD (S/P/Bld) [Vol rate/Area] mL/min/{1.73_m2} Normal >60 [facility] Comment on above: Performed By: #### B MP3, HEMDF, QWAL #### [facility] [address] [place] [address] GFR/1.73 sq M.predicted among non-blacks MDRD (S/P/Bld) [Vol rate/Area] 84.0 mL/min/{1.73_m2} Normal >60 [facility] Comment on above: Result Comment: KDIG O guidelines provide the following GFR categories: Stage GFR(ml/min/1.73 m2) Terms G1 >=90 Normal or high G2 60-89 Mildly decreased* G3a 45-59 Mildly to moderately decreased G3b 30-44 Moderately to severely decreased G4 15-29 Severely decreased G5 <15 Kidney failure *Relative to young adult level. In the absence of evidence of kidney damage, neither GFR category G1 nor G2 fulfill the criteria for CKD. The CKD-EPI equation is validated in individuals 18 years of age and older. Currently the best equation for estimating glomerular filtration rate (GFR) from serum creatinine in children is the Bedside George equation. It is less accurate in patients with extremes of muscle mass, restriction of dietary protein, ingestion of creatine, extra-renal metabolism of creatinine, or treatment with medications that affect renal tubular creatinine secretion. Performed By: #### B MP3, HEMDF, QWAL #### [facility] [address] [place] [address] Potassium [Moles/Vol] 4.3 mmol/L Normal 3.5-5.1 [facility] Comment on above: Performed By: #### B MP3, HEMDF, QWAL #### [facility] [address] [place] [address] Sodium [Moles/Vol] 143 mmol/L Normal 135-145 [facility] Comment on above: Performed By: #### B MP3, HEMDF, QWAL #### [facility] [address] [place] [address] Chloride [Moles/Vol] 109 mmol/L High 98-107 [facility] Comment on above: Performed By: #### B MP3, HEMDF, QWAL #### [facility] [address] [place] [address] CR Foot Complete 3+ Views Le fton 11-03-2019 CR Foot Complete 3+ Views Left Patient Name: BRITTNEY ALCOCER Diagnostic Radiology Exam Date/Time 11/03/2019 10:49:55 EDT Exam CR Foot Complete 3+ Views Left Ordering Physician BANG CANTU Accession Number [id number] CPT4 Codes 96703 () Reason For Exam foot injury, 4th 5th toe pain Report Reason for examination: Stubbed toe this a.m., pain third digit. AP, lateral and oblique views of the left foot are performed. The bony mineralization is normal. There is a nondisplaced fracture of the distal aspect of the proximal phalanx of the third digit with a fracture line extending to the articular surface. No other fractures are identified. There is no dislocation. The soft tissues are unremarkable. IMPRESSION: Intra-articular nondisplaced fracture of the proximal phalanx of the third digit. Report Dictated on Final Dictating Physician: MD FORTUNE LAUREN B Signed Date and Time: 11/03/2019 11:05 am Signed by: MD FORTUNE LAUREN B Transcribed Date and Time: 11/03/2019 11:06 Normal [facility] Complete Urinalysison 2019 Bacteria Moderate (6-50) Abnormal Negative [facility] Comment on above: Result Comment: . Performed By: #### C UA2 ####[facility] [place] [address] RBC, Urine 0 - 2 Normal 0-2 [facility] Comment on above: Result Comment: . Performed By: #### C UA2 ####[facility] [place] [address] Squamous Epithelial 0 - 2 Normal 3-5 [facility] Comment on above: Result Comment: . Performed By: #### C UA2 ####[place] [address] [place] [address] VOLUME, URINE 12 ml Normal [facility] Comment on above: Result Comment: . Performed By: #### C UA2 ####[place] [address] [place] [address] WBC LM.HPF (Urine sed) [#/Area] Negative Normal 0-5 [facility] Comment on above: Result Comment: . Performed By: #### C UA2 ####[place] [address] [place] [address] Appearance (U) Clear Normal Clear [facility] Comment on above: Result Comment: . Performed By: #### C UA2 ####[place] [address] [place] [address] Bilirubin,Urine Negative Normal Negative [facility] Comment on above: Result Comment: . Performed By: #### C UA2 ####[facility] [place] [address] Color (U) LIGHT YELLOW Normal Lt. Yellow [facility] Comment on above: Result Comment: . Performed By: #### C UA2 ####[facility] [place] [address] Glucose Ql (U) Normal Normal Normal (<70) [facility] Comment on above: Result Comment: . Performed By: #### C UA2 ####[facility] [place] [address] Ketone,Urine Negative Normal Negative [facility] Comment on above: Result Comment: . Performed By: #### C UA2 ####[place] [address] [place] [address] Leukocytes,Urine Negative Normal Negative [facility] Comment on above: Result Comment: . Performed By: #### C UA2 ####[facility] [place] [address] Nitrites,Urine Negative Normal Negative [facility] Comment on above: Result Comment: . Performed By: #### C UA2 ####[facility] [place] [address] Occult Blood,Urine 1.0 mg/dL Abnormal Negative [facility] Comment on above: Result Comment: . Performed By: #### C UA2 ####[facility] [place] [address] pH,Urine 6.5 Normal 5.0-8.0 [facility] Comment on above: Result Comment: . Performed By: #### C UA2 ####[address] [place] [address] Specific Deer,Urine 1.016 Normal 1.005 - 1.030 [facility] Comment on above: Result Comment: . Performed By: #### C UA2 ####[address] [place] [address] Total Protein,Urine Negative Normal Negative [facility] Comment on above: Result Comment: . Performed By: #### C UA2 ####[address] [place] [place] [address] Urobilinogen,Urine Normal Normal Normal (0-1) [facility] Comment on above: Result Comment: . Performed By: #### C UA2 ####[place] [address] [place] [address] Hemogram w/ Autodiffon 11-02 Abs Baso Cnt 0.0 10*3/uL Normal 0.0-0.2 [facility] Comment on above: Performed By: #### B MP3, HEMDF, QWAL #### [facility] [address] [place] [address] Abs Neutrophile Cnt 5.4 10*3/uL Normal 1.8-7.0 [facility] Comment on above: Performed By: #### B MP3, HEMDF, QWAL #### [facility] [address] [place] [address] Basophils/100 WBC (Bld) 0.6 % Normal 0.0-2.0 [facility] Comment on above: Performed By: #### B MP3, HEMDF, QWAL #### [facility] [address] [place] [address] Eosinophils (Bld) [#/Vol] 0.2 10*3/uL Normal 0.0-0.5 [facility] Comment on above: Performed By: #### B MP3, HEMDF, QWAL #### [facility] [address] [place] [address] Eosinophils/100 WBC (Bld) 1.8 % Normal 1.0-6.0 [facility] Comment on above: Performed By: #### B MP3, HEMDF, QWAL #### [facility] [address] [place] [address] Erythrocyte distribution width (RBC) [Ratio] 13.8 % Normal 11.5-14.5 [facility] Comment on above: Performed By: #### B MP3, HEMDF, QWAL #### [facility] [address] [place] [address] Granulocytes/100 WBC (Bld) 65.0 % Normal 40.0-80.0 [facility] Comment on above: Performed By: #### B MP3, HEMDF, QWAL #### [facility] [address] [place] [address] Hematocrit (Bld) [Volume fraction] 45.7 % Normal 35.0-47.0 [facility] Comment on above: Performed By: #### B MP3, HEMDF, QWAL #### [facility] [address] [place] [address] Hemoglobin (Bld) [Mass/Vol] 15.6 g/dL Normal 11.7-16.0 [facility] Comment on above: Performed By: #### B MP3, HEMDF, QWAL #### [facility] [address] [place] [address] Lymphocytes (Bld) [#/Vol] 2.1 10*3/uL Normal 1.0-4.3 [facility] Comment on above: Performed By: #### B MP3, HEMDF, QWAL #### [facility] [address] [place] [address] Lymphocytes/100 WBC (Bld) 25.8 % Normal 20.0-40.0 [facility] Comment on above: Performed By: #### B MP3, HEMDF, QWAL #### [facility] [address] [place] [address] MCH (RBC) [Entitic mass] 32.2 pg Normal 26.0-34.0 [facility] Comment on above: Performed By: #### B MP3, HEMDF, QWAL #### [facility] [address] [place] [address] MCHC 34.2 % Normal 32.0-36.0 [facility] Comment on above: Performed By: #### B MP3, HEMDF, QWAL #### [facility] [address] [place] [address] MCV (RBC) [Entitic vol] 94.2 fL Normal 79.0-98.0 [facility] Comment on above: Performed By: #### B MP3, HEMDF, QWAL #### [facility] [address] [place] [address] Monocytes (Bld) [#/Vol] 0.6 10*3/uL Normal 0.0-0.8 [facility] Comment on above: Performed By: #### B MP3, HEMDF, QWAL #### [facility] [address] [place] [address] Monocytes/100 WBC (Bld) 6.8 % Normal 2.0-10.0 [facility] Comment on above: Performed By: #### B MP3, HEMDF, QWAL #### [facility] [address] [place] [address] Platelet mean volume (Bld) [Entitic vol] 7.9 fL Normal 7.4-10.4 [facility] Comment on above: Performed By: #### B MP3, HEMDF, QWAL #### [facility] [address] [place] [address] Platelets (Bld) [#/Vol] 254 10*3/uL Normal 140-440 [facility] Comment on above: Performed By: #### B MP3, HEMDF, QWAL #### [facility] [address] [place] [address] RBC (Bld) [#/Vol] 4.85 10*6/uL Normal 3.80-5.20 [facility] Comment on above: Performed By: #### B MP3, HEMDF, QWAL #### [facility] [address] [place] [address] WBC (Bld) [#/Vol] 8.2 10*3/uL Normal 3.6-10.7 [facility] Comment on above: Performed By: #### B MP3, HEMDF, QWAL #### [facility] [address] [place] [address] US Transvaginalon 11-03-2019 US Transvaginal Patient Name: BRITTNEY MORA Ultrasound Exam Date/Time 11/03/2019 10:46:33 EDT Exam US Transvaginal Ordering Physician BANG CANTU Accession Number [id number] CPT4 Codes 02904 () Reason For Exam pelvic pain, vaginal bleeding Report Reason for examination: Pelvic pain and vaginal bleeding. A sonogram of the pelvis is performed transvaginally. The examination is limited due to decreased penetration and body habitus. The uterus measures 8.4 x 4.2 x 3.7 cm. The contours of the uterus are lobulated. The fundus is poorly visualized due to poor penetration. The echogenicity of the myometrium is heterogeneous. There is suggestion of a round mass towards the right of the uterus measuring 2.3 x 2.0 x 2.1 cm. There is suggestion of a mass in the mid body measuring 1.1 x 1.0 x 0.9 cm. The findings likely represent uterine fibroids although ultrasound is not histologically specific. The endometrial stripe thickness is 4.6 mm. The right ovary is not well visualized sonographically. A hypoechoic area within the right adnexa may represent the ovary measuring 2.4 x 1.6 x 1.5 cm. The left ovary is small measuring 1.6 x 1.2 x 1.1 cm. There is a tiny follicle in the left ovary measuring 6 mm. No adnexal masses or free fluid is seen. IMPRESSION: Limited examination due to poor visualization. Probable uterine fibroids. Poor visualization of the right ovary. Unremarkable left ovary. Report Dictated on Final Dictating Physician: MD FORTUNE LAUREN B Signed Date and Time: 11/03/2019 11:02 am Signed by: MD FORTUNE LAUREN B Transcribed Date and Time: 11/03/2019 11:03 Normal [facility] hCG Qual Pregon 11-03-2019 hCG Qual Preg Negative Normal [facility] Comment on above: Result Comment: Refe rence Range: NEGATIVE Effective 05/13/2019, the reference interval for the qualitative test has been updated. This test detects hCG at concentrations of 10 mIU/mL or greater in serum. Performed By: #### B MP3, HEMDF, QWAL #### [facility] [address] [place] [address] Hemoglobin A1Con 12-11-2017 Glucose mass conc 100 mg/dL Normal [facility] Comment on above: Performed By: #### L IPD2, HA1C2 ####[facility] [address] [place] [address] Hemoglobin A1c/Hemoglobin.total mass fraction (Bld) 5.1 % Normal 4.0-5.7 [facility] Comment on above: Result Comment: --Hg bA1C levels may not be accurate in patients who haverenal disease, received recent blood transfusions, are anemic,or who have dyshemoglobinemia. Performed By: #### L IPD2, HA1C2 ####[facility] [address] [address] [place] [address] Lipid Panelon 12-11-2017 Cholesterol in HDL mass conc 27 mg/dL Low 40-60 [facility] Comment on above: Performed By: #### L IPD2, HA1C2 ####[place] [address] [facility] [place] [place] Cholesterol.total/Nani sterol in HDL mass ratio 7 Normal [facility] Comment on above: Result Comment: Ref Range:< 3 Low Risk for CHD3-6 Mod Risk for CHD> 6 High Risk for CHD Performed By: #### L IPD2, HA1C2 ####[place] [address] [facility] [address] [place] Protein mass conc 132 mg/dL Abnormal <100 [facility] Comment on above: Performed By: #### L IPD2, HA1C2 ####[place] [address] [place], [place] Triglyceride mass conc 192 mg/dL Abnormal <150 [facility] Comment on above: Performed By: #### L IPD2, HA1C2 ####[place] [address] [facility] [place] Cholesterol mass conc 197 mg/dL Normal < 200 [facility] Comment on above: Performed By: #### L IPD2, HA1C2 ####[place] [address] [facility] [place] Comp Metabolic Panelon 12-10 ALP enzyme act/vol 104 U/L Normal 38-126 [facility] Comment on above: Performed By: #### H EMOG, CMP3, ETOH4, VALP3 ####[place] [address] [place], [place] ALT enzyme act/vol 24 U/L Normal 13-69 [facility] Comment on above: Performed By: #### H EMOG, CMP3, ETOH4, VALP3 ####[place] [address] [place], [place] Anion gap 3 molar conc 12 Normal [facility] Comment on above: Performed By: #### H EMOG, CMP3, ETOH4, VALP3 ####[place] [address] [facility] [place] AST enzyme act/vol 25 U/L Normal 15-46 [facility] Comment on above: Performed By: #### H EMOG, CMP3, ETOH4, VALP3 ####[place] [address] [place] Bilirubin mass conc 0.7 mg/dL Normal 0.2-1.3 [facility] Comment on above: Performed By: #### H EMOG, CMP3, ETOH4, VALP3 ####[place] [address] [place] Calcium mass conc 9.4 mg/dL Normal 8.4-10.4 [facility] Comment on above: Performed By: #### H EMOG, CMP3, ETOH4, VALP3 ####[place] [address] [place], [place] CO2 molar conc 25 mmol/L Normal 22-30 [facility] Comment on above: Performed By: #### H EMOG, CMP3, ETOH4, VALP3 ####[place] [address] [place], [place] Glucose mass conc 94 mg/dL Normal 70-100 [facility] Comment on above: Performed By: #### H EMOG, CMP3, ETOH4, VALP3 ####[place] [address] [place], [place] Protein mass conc 8.1 g/dL Normal 6.3-8.2 [facility] Comment on above: Performed By: #### H EMOG, CMP3, ETOH4, VALP3 ####[place] [address] [place], [place] Urea nitrogen mass conc 15 mg/dL Normal 7-20 [facility] Comment on above: Performed By: #### H EMOG, CMP3, ETOH4, VALP3 ####[place] [address] [place], [place] Creatinine mass conc 0.79 mg/dL Normal 0.52-1.25 [facility] Comment on above: Performed By: #### H EMOG, CMP3, ETOH4, VALP3 ####[place] [address] [place], [place] GFR/1.73 sq M predicted among blacks MDRD vol rate/area (S/P/Bld) mL/min/{1.73_m2} Normal >60 [facility] Comment on above: Performed By: #### H EMOG, CMP3, ETOH4, VALP3 ####[place] [address] [place] [address] GFR/1.73 sq M predicted among non-blacks MDRD vol rate/area (S/P/Bld) mL/min/{1.73_m2} Normal >60 [facility] Comment on above: Result Comment: Sour ce- MDRD equation with creatinine calibration to IDMS(NKDEP) eGFR not recommended for drug dose adjustment Performed By: #### H EMOG, CMP3, ETOH4, VALP3 ####[address] [address] Albumin mass conc 4.8 g/dL Normal 3.5-5.0 [facility] Comment on above: Performed By: #### H EMOG, CMP3, ETOH4, VALP3 ####[facility] [place] [address] [place] [address] Chloride molar conc 107 mmol/L Normal 98-107 [facility] Comment on above: Performed By: #### H EMOG, CMP3, ETOH4, VALP3 ####[facility] [place] [address] [place] [address] Potassium molar conc 3.6 mmol/L Normal 3.5-5.1 [facility] Comment on above: Performed By: #### H EMOG, CMP3, ETOH4, VALP3 ####[facility] [address] [id number] [place] [address] Sodium molar conc 143 mmol/L Normal 137-145 [facility] Comment on above: Performed By: #### H EMOG, CMP3, ETOH4, VALP3 ####[facility] [address] [address] Drugs of Abuseon 12-10-2017 Phencyclidine (PCP), Ur Negative Normal [facility] Comment on above: Result Comment: The expected value for all of the drugs listedabove is Negative.The following drugs or drug groups have been screenedfor by Immunoassay at the following thresholds:Amphetamine class (1000 ng/mL), Barbiturates (200 ng/mL),Benzodiazepines (200 ng/mL), Cocaine (300 ng/mL),Methadone (300 ng/mL), Opiates (300 ng/mL),Oxycodone (100 ng/mL), and PCP (25 ng/mL).NOTE: These results are for medical treatment only.Analysis performed using non-forensic procedures.POSITIVE results are NOT confirmed by a more specificalternative method unless requested. If confirmation isneeded, request confirmation under separate order. Performed By: #### H CGUR, UAMAC, DRGA4 ####[place] [address] [facility] Methadone, Ur Negative Normal [facility] Comment on above: Performed By: #### H CGUR, UAMAC, DRGA4 ####[place] [address] [facility] [place] Opiates, Ur Negative Normal [facility] Comment on above: Performed By: #### H CGUR, UAMAC, DRGA4 ####[place] [address] [facility] [place] Cocaine, Ur Negative Normal [facility] Comment on above: Performed By: #### H CGUR, UAMAC, DRGA4 ####[place] [address] [facility] [place] Amphetamines, Ur Negative Normal [facility] Comment on above: Performed By: #### H CGUR, UAMAC, DRGA4 ####[place] [address] [facility] Barbiturates, Ur Negative Normal [facility] Comment on above: Performed By: #### H CGUR, UAMAC, DRGA4 ####[place] [id number] [facility] Benzodiazepines, Ur Negative Normal [facility] Comment on above: Performed By: #### H CGUR, UAMAC, DRGA4 ####[place] [id number] [facility] Oxycodone/Oxymorphine,U r Negative Normal [facility] Comment on above: Performed By: #### H CGSHARON, UAMAC, DRGA4 ####[facility] [id number] [place] [address] ED Provider Noteon 8 Protein mass conc Emergency Department EncounterACH EMERGENCY DEPTPatient: Brittney SolitariotMRN: [id number]: [id number] of Evaluation: 12/10/2017ED Provider: DORYS Nascimentomakeaton ComplaintChief ComplaintPatient presents with? Suicidal Pt c/o of auditory hallucinations. States she's hearing voices telling her toharm herself. Pt also states she hasn't slept in about 5 days. Denies HI atthis time.? HallucinationsHOPIElizbrenna Alcocer is a 42 y.o. female who presents to the emergency departmentcomplaining of Auditory hallucinations, says she is hearing voices telling herto hurt herself, she says she has not slept in 5 days. She says that she takesher medications as prescribed. Denies any other complaints. Nothing makes itbetter or worse. Severity is debilitating to her and her normal activities ofdaily living. Has been worse over past 5 days.ROS:At least 10 systems reviewed and otherwise acutely negative except as in theHOPI.Past HistoryPast Medical History:Diagnosis Date? Depression? MigraineNo past surgical history on file.Social HistorySocial History? Marital status: Single Spouse name: N/A? Number of children: N/A? Years of education: N/ASocial History Main Topics? Smoking status: Current Every Day Smoker Packs/day: 1.00 Years: 34.00 Types: Cigarettes? Smokeless tobacco: Never Used? Alcohol use No? Drug use: Yes Types: Marijuana? Sexual activity: Not on fileOther Topics Concern? Not on fileSocial History Narrative? No narrative on fileMedications/Allergi esPrevious Medications DIPHENHYDRAMINE (BENADRYL) 25 MG TABLET Take 25 mg by mouth nightly DIVALPROEX (DEPAKOTE) [address] TABLET Take 500 mg by mouth FAMOTIDINE (PEPCID) 40 MG TABLET Take 40 mg by mouth daily GABAPENTIN (NEURONTIN) 800 MG TABLET Take 800 mg by mouth 4 times daily. . LORATADINE (CLARITIN) 10 MG TABLET Take 10 mg by mouth daily MELATONIN 3 MG TABS TABLET Take by mouth daily OMEPRAZOLE (PRILOSEC) 40 MG DELAYED RELEASE CAPSULE Take 40 mg by mouthdaily PRAMIPEXOLE (MIRAPEX) 0.125 MG TABLET Take 0.5 mg by mouth daily as needed SERTRALINE (ZOLOFT) 100 MG TABLET Take 100 mg by mouth daily SUMATRIPTAN (IMITREX) 100 MG TABLET Take 100 mg by mouth once as needed forMigraine TRIAZOLAM (HALCION) 0.125 MG TABLET Take 0.125 mg by mouth nightly asneeded..AllergiesAlle rgen Reactions? Amoxicillin? Aspirin? Celexa [Citalopram Hydrobromide]? Codeine? Effexor [Venlafaxine]? Morphine? Ultram [Tramadol Hcl]Physical ExamED Triage Vitals [12/10/17 1516]BP Temp Temp Source Pulse Resp SpO2 Height Kobrwh259/84 97.9 ?F (36.6 ?C) Oral 74 16 98 % 4' 10 (1.473 m) 181 lb (82.1 kg)GENERAL: The patient appears nourished and normally developed. Vital signs asdocumented.EYES: Head exam is unremarkable. No scleral icterus or orbital trauma noted.HEENT: Mucous membranes moist. Nares patent without copious rhinorrhea. Noenlarged lymphadenopathy.LUNGS: Lungs are clear to auscultation, without any respiratory distress.CARDIAC: Rhythm is regular. No dysrythmias or murmurs.ABDOMEN: Nontender with no obvious masses, and no peritoneal signs.EXTREMITIES: Non edematous, with no obvious deformities.SKIN: Good color, with no significant rashes. No pallor.NEURO: No obvious neurological deficits, normal sensation and strengthbilaterally. patient able to ambulate.DiagnosticsLab s:Results for orders placed or performed during the hospital encounter of 12/10/17Comprehensive Metabolic PanelResult Value Ref Range Sodium 143 137 - 145 mmol/L Potassium 3.6 3.5 - 5.1 mmol/L Chloride 107 98 - 107 mmol/L CO2 25 22 - 30 mmol/L Anion Gap 12 NA Glucose 94 70 - 100 mg/dL BUN 15 7 - 20 mg/dL CREATININE 0.79 0.52 - 1.25 mg/dL eGFR >60.0 >60 mL/min EGFR IF NonAfrican South African >60.0 >60 mL/min Calcium 9.4 8.4 - 10.4 mg/dL Albumin,Serum 4.8 3.5 - 5.0 g/dL Total Protein 8.1 6.3 - 8.2 g/dL Total Bilirubin 0.7 0.2 - 1.3 mg/dL Alkaline Phosphatase 104 38 - 126 U/L ALT 24 13 - 69 U/L AST 25 15 - 46 U/LUrine Drug ScreenResult Value Ref Range Amphetamines, urine Negative NA Barbiturates, Ur Negative NA Benzodiazepine Ur Qual Negative NA Cocaine Metabolites, Ur Negative NA Methadone, Urine Negative NA Opiates, Urine Negative NA Oxycodone Screen, Ur Negative NA PCP, Urine Negative NAEthanolResult Value Ref Range Ethanol Lvl <0.010 0.000 - 0.010 g/dLHCG Urine Qual PregResult Value Ref Range HCG Urine Negative Negative NAHemogram (CBC)Result Value Ref Range WBC 6.2 3.6 - 10.7 10*3/uL RBC 5.00 3.80 - 5.20 10*6/uL Hemoglobin 15.8 11.7 - 16.0 g/dL Hematocrit 46.3 35.0 - 47.0 % MCV 92.6 79.0 - 98.0 fL MCH 31.6 26.0 - 34.0 pg MCHC 34.2 32.0 - 36.0 % RDW 14.6 (H) 11.5 - 14.5 % Platelets 293 140 - 440 10*3/uL MPV 7.9 7.4 - 10.4 fLUrinalysisResult Value Ref Range Appearance Clear Clear NA Color, UA Yellow Lt. Yellow NA Specific Deer, Urine 1.010 1.005 - 1.030 NA pH, Urine 7.0 5.0 - 8.0 NA LEUKOCYTES, UA NEG Negative NA Nitrite, Urine NEG Negative NA Total Protein, Urine NEG Negative mg/dL Glucose, Ur NORM Negative mg/dL Ketones, Urine NEG Negative mg/dL Urobilinogen, Urine NORM 0 - 1 mg/dL Bilirubin, Urine NEG Negative NA Occult Blood,Urine NEG Negative [RBC]/uLRadiographs:No results found.Procedures/EKG:no neED Course and MDMIn brief, Brittney Alcocer is a 42 y.o. female who presented to the emergencydepartment With auditory hallucinations and suicidal thoughts and insomnia ,medically cleared [facility] [address] [facility] Imp[facility] auditory hallucinations and suicidal thoughts and insomniaDISPOSITION AdmitComment: Please note this report has been produced using speech recognitionsoftware and may contain errors related to that system including errors ingrammar, punctuation, and spelling, as well as words and phrases that may beinappropriate. If there are any questions or concerns please feel free tocontact the dictating provider for clarification.Luis Eduardo Ng MDUS Acute Care SolutionsAustin Ahsan Ng MD12/10/17 [id number] Ng MD12/25/17 1437 Normal [facility] Ethanol Serum/Plasmaon 12-10 Ethanol-Serum/Plasma < 0.010 Normal 0.000-0.010 [facility] Comment on above: Result Comment: NOTE : This result is for medical treatment only. Analysis performed using non-forensic procedures. Performed By: #### H EMOG, CMP3, ETOH4, VALP3 ####[facility] [employer] [place] [address] HCG,Urine Qualon 12-10-2017 HCG.beta subunit ( test) Ql (U) Negative Normal Negative [facility] Comment on above: Result Comment: Preg paola is the most common reason for HCG in urine, althoughchoriocarcinoma, hydatidiform mole, and certain nontropho-blastic malignancies also result in detectable urinary HCGlevels. Sensitivity = 20mIU/mL. Performed By: #### H CGUR, UAMAC, DRGA4 ####[facility] [address] [place] [address] Hemogramon 12-10-2017 Erythrocyte distribution width Auto Ratio (RBC) 14.6 % High 11.5-14.5 [facility] Comment on above: Performed By: #### H EMOG, CMP3, ETOH4, VALP3 ####[facility] [place] [address] Hematocrit Auto Volume Fraction (Bld) 46.3 % Normal 35.0-47.0 [facility] Comment on above: Performed By: #### H EMOG, CMP3, ETOH4, VALP3 ####[id number] [place], [place] Hemoglobin mass conc (Bld) 15.8 g/dL Normal 11.7-16.0 [facility] Comment on above: Performed By: #### H EMOG, CMP3, ETOH4, VALP3 ####[address] MCH Auto Entitic mass (RBC) 31.6 pg Normal 26.0-34.0 [facility] Comment on above: Performed By: #### H EMOG, CMP3, ETOH4, VALP3 ####[address] MCHC Auto mass conc (RBC) 34.2 % Normal 32.0-36.0 [facility] Comment on above: Performed By: #### H EMOG, CMP3, ETOH4, VALP3 ####[facility] [address] MCV Auto Entitic volume (RBC) 92.6 fL Normal 79.0-98.0 [facility] Comment on above: Performed By: #### H EMOG, CMP3, ETOH4, VALP3 ####[address] Platelet mean volume Auto Entitic volume (Bld) 7.9 fL Normal 7.4-10.4 [facility] Comment on above: Performed By: #### H EMOG, CMP3, ETOH4, VALP3 ####[address] Platelets Auto #/vol (Bld) 293 10*3/uL Normal 140-440 [facility] Comment on above: Performed By: #### H EMOG, CMP3, ETOH4, VALP3 ####[address] RBC Auto #/vol (Bld) 5.00 10*6/uL Normal 3.80-5.20 [facility] Comment on above: Performed By: #### H EMOG, CMP3, ETOH4, VALP3 ####[id number] [place], [place] WBC Auto #/vol (Bld) 6.2 10*3/uL Normal 3.6-10.7 [facility] Comment on above: Performed By: #### H EMOG, CMP3, ETOH4, VALP3 ####[id number] [place], [place] Urinalysis,Macroon 8 Appearance Clear Normal Clear [facility] Comment on above: Performed By: #### H CGUR, UAMAC, DRGA4 ####[id number] [place], [place] Color Yellow Normal Lt. Yellow [facility] Comment on above: Performed By: #### H CGUR, UAMAC, DRGA4 ####[address] Bilirubin,Ur Negative Normal Negative [facility] Comment on above: Performed By: #### H CGUR, UAMAC, DRGA4 ####[id number] [place], [place] Glucose Ql (U) NORM Normal Negative [facility] Comment on above: Performed By: #### H CGUR, UAMAC, DRGA4 ####[id number] [place], [place] Ketone,Urine Negative Normal Negative [facility] Comment on above: Performed By: #### H CGUR, UAMAC, DRGA4 ####[id number] [place], [place] Leukocytes Negative Normal Negative [facility] Comment on above: Performed By: #### H CGUR, UAMAC, DRGA4 ####[id number] [place], [place] Nitrites Negative Normal Negative [facility] Comment on above: Performed By: #### H CGUR, UAMAC, DRGA4 ####[address] [place], [place] Occult Blood,Ur Negative Normal Negative [facility] Comment on above: Performed By: #### H CGSHARON, UAMAC, DRGA4 ####[id number] [place], [place] pH Test strip (U) 7.0 Normal 5.0-8.0 [facility] Comment on above: Performed By: #### H CGUR, UAMAC, DRGA4 ####[address] Specific [place]er,Urine 1.010 Normal 1.005-1.030 [facility] Comment on above: Performed By: #### H CGSHARON, UAMAC, DRGA4 ####[id number] [place], [place] Total Protein,Urine Negative Normal Negative [facility] Comment on above: Performed By: #### H CGUR, UAMAC, DRGA4 ####[address] Urobilinogen NORM Normal 0-1 [facility] Comment on above: Performed By: #### H CGSHARON, UAMAC, DRGA4 ####[address] Valproic Acidon 12-10-2017 Protein mass conc 31 ug/mL Low 50-120 [facility] Comment on above: Performed By: #### H EMOG, CMP3, ETOH4, VALP3 ####[address] No Panel Information Influenza Types A,B Direct FA ([facility]) [facility] Work Phone: Vital Signs Date Time Vital Sign Value Performing Clinician Facility 07-18-2024 07:55-0400 Body height 147.3 cm Francine Medeiros PA-C Work Phone: [facility] 07-18-2024 07:55-0400 Body mass index (BMI) [Ratio] 37.62 kg/m2 Francine Medeiros PA-C Work Phone: [facility] 07-18-2024 07:55-0400 Body weight 81.65 kg Francine Martinezton PA-C Work Phone: [facility] 07-18-2024 07:55-0400 Respiratory rate 14 /min Francine [place] PA-C Work Phone: [facility] 06-05-2024 13:22-0400 Body height 147.3 cm Francine Martinezton PA-C Work Phone: [facility] 06-05-2024 13:22-0400 Body mass index (BMI) [Ratio] 37.62 kg/m2 Francine Waldemar PA-C Work Phone: [facility] 06-05-2024 13:22-0400 Body weight 81.65 kg Francine [place] PA-C Work Phone: [facility] 06-05-2024 13:22-0400 Respiratory rate 13 /min Francine [place] PA-C Work Phone: [facility] 05-08-2024 07:57-0400 Body height 147.3 cm Francine [place] PA-C Work Phone: [facility] 05-08-2024 07:57-0400 Body mass index (BMI) [Ratio] 37.62 kg/m2 Francine Waldemar PA-C Work Phone: [facility] 05-08-2024 07:57-0400 Body weight 81.65 kg Francine [place] PA-C Work Phone: [facility] 05-08-2024 07:57-0400 Respiratory rate 13 /min Francine Waldemar PA-C Work Phone: [facility] 04-24-2024 13:01-0400 Body height 147.3 cm Francine Waldemar PA-C Work Phone: [facility] 04-24-2024 13:01-0400 Body mass index (BMI) [Ratio] 37.62 kg/m2 Francine Waldemar PA-C Work Phone: [facility] 04-24-2024 13:01-0400 Body weight 81.65 kg Francine Martinezton PA-C Work Phone: [facility] 04-11-2024 14:40-0500 Body height 147.3 cm Francine [place] PA-C Work Phone: [facility] 04-11-2024 14:40-0500 Body mass index (BMI) [Ratio] 37.62 kg/m2 Francine Waldemar PA-C Work Phone: [facility] 04-11-2024 14:40-0500 Body weight 81.65 kg Francine Waldemar PA-C Work Phone: [facility] 04-10-2024 08:53-0500 Body height 147.3 cm Francine Martinezton PA-C Work Phone: [facility] 04-10-2024 08:53-0500 Body mass index (BMI) [Ratio] 37.62 kg/m2 Francine [place] PA-C Work Phone: [facility] 04-10-2024 08:53-0500 Body weight 81.65 kg Francine [place] PA-C Work Phone: [facility] 04-10-2024 08:53-0500 Respiratory rate 14 /min Francine [place] PA-C Work Phone: [facility] 04-04-2024 10:24-0500 Body height 147.3 cm Trent Alas MD Work Phone: [facility] 04-04-2024 10:24-0500 Body mass index (BMI) [Ratio] 37.62 kg/m2 Trent Alas MD Work Phone: [facility] 04-04-2024 10:24-0500 Body weight 81.65 kg Trent Alas MD Work Phone: [facility] 04-04-2024 02:38-0500 Diastolic blood pressure 68 mm[Hg] Jose Angel Casas MD Work Phone: [facility] 04-04-2024 02:38-0500 Heart rate 70 /min Jose Angel Casas MD Work Phone: [facility] 04-04-2024 02:38-0500 Respiratory rate 18 /min Jose Angel Casas MD Work Phone: [facility] 04-04-2024 02:38-0500 SaO2% (BldA) [Mass fraction] 100 % Jose Angel Casas MD Work Phone: [facility] 04-04-2024 02:38-0500 Systolic blood pressure 130 mm[Hg] Jose Angel Casas MD Work Phone: [facility] 04-03-2024 19:18-0500 Body height 147.3 cm Jose Angel Casas MD Work Phone: [facility] 04-03-2024 19:18-0500 Body mass index (BMI) [Ratio] 37.62 kg/m2 Jose Angel Casas MD Work Phone: [facility] 04-03-2024 19:18-0500 Body temperature 98.71 [degF] Jose Angel Casas MD Work Phone: [facility] 04-03-2024 19:18-0500 Body weight 81.65 kg Jose Angel Casas MD Work Phone: [facility] 04-01-2024 11:30-0500 Heart rate 75 /min Trent Alas MD Work Phone: [facility] 04-01-2024 11:30-0500 Respiratory rate 19 /min Trent Alas MD Work Phone: [facility] 04-01-2024 11:30-0500 SaO2% (BldA) [Mass fraction] 93 % Trent Alas MD Work Phone: [facility] 04-01-2024 11:20-0500 Diastolic blood pressure 63 mm[Hg] Trent Alas MD Work Phone: [facility] 04-01-2024 11:20-0500 Systolic blood pressure 114 mm[Hg] Trent Alas MD Work Phone: [facility] 04-01-2024 10:12-0500 Body temperature 98.01 [degF] Trent Alas MD Work Phone: [facility] 04-01-2024 07:43-0500 Body mass index (BMI) [Ratio] 37.62 kg/m2 Trent Alas MD Work Phone: [facility] 04-01-2024 07:43-0500 Body weight 81.65 kg Trent Alas MD Work Phone: [facility] 03-27-2024 08:00-0500 Body height 147.3 cm Trent Alas MD Work Phone: [facility] 03-27-2024 08:00-0500 Body mass index (BMI) [Ratio] 38.04 kg/m2 Trent Alas MD Work Phone: [facility] 03-27-2024 08:00-0500 Body weight 82.56 kg Trent Alas MD Work Phone: [facility] 03-27-2024 08:00-0500 Diastolic blood pressure 76 mm[Hg] Trent Alas MD Work Phone: [facility] 03-27-2024 08:00-0500 Heart rate 68 /min Trent Alas MD Work Phone: [facility] 03-27-2024 08:00-0500 Systolic blood pressure 113 mm[Hg] Trent Alas MD Work Phone: [facility] 02-28-2024 08:12-0500 Body height 147.3 cm Trent Alas MD Work Phone: [facility] 02-28-2024 08:12-0500 Body mass index (BMI) [Ratio] 38.04 kg/m2 Trent Alas MD Work Phone: [facility] 02-28-2024 08:12-0500 Body weight 82.56 kg Trent Alas MD Work Phone: [facility] 02-22-2024 17:10-0500 Body height 147.3 cm Monique Palma MD Work Phone: [facility] 02-22-2024 17:10-0500 Body mass index (BMI) [Ratio] 38.04 kg/m2 Monique Palma MD Work Phone: [facility] 02-22-2024 17:10-0500 Body temperature 98.01 [degF] Monique Palma MD Work Phone: [facility] 02-22-2024 17:10-0500 Body weight 82.56 kg Monique Palma MD Work Phone: [facility] 02-22-2024 17:10-0500 Diastolic blood pressure 68 mm[Hg] Monique Palma MD Work Phone: [facility] 02-22-2024 17:10-0500 Heart rate 88 /min Monique Palma MD Work Phone: [facility] 02-22-2024 17:10-0500 Respiratory rate 16 /min Monique Palma MD Work Phone: [facility] 02-22-2024 17:10-0500 SaO2% (BldA) [Mass fraction] 99 % Monique Palma MD Work Phone: [facility] 02-22-2024 17:10-0500 Systolic blood pressure 141 mm[Hg] Monique Palma MD Work Phone: [facility] 02-22-2024 08:04-0500 Body height 147.32 cm Cristobal URIOSTEGUI Work Phone: [facility] 02-22-2024 08:04-0500 Body mass index (BMI) [Ratio] 38.5 kg/m2 Cristobal URIOSTEGUI Work Phone: [facility] 01-17-2025 08:04-0500 Body weight 83.57 kg Cristobal Otoole LOAN COUNSELOR-C Work Phone: [facility] 05-21-2022 20:15-0400 Diastolic blood pressure 68 mm[Hg] Ángel Maddox MD Work Phone: [facility] 05-21-2022 20:15-0400 Heart rate 62 /min Ángel Maddox MD Work Phone: [facility] 05-21-2022 20:15-0400 Respiratory rate 16 /min Ángel Maddox MD Work Phone: [facility] 05-21-2022 20:15-0400 SaO2% (BldA) [Mass fraction] 96 % Ángel Maddox MD Work Phone: [facility] 05-21-2022 20:15-0400 Systolic blood pressure 114 mm[Hg] Ángel Maddox MD Work Phone: [facility] 05-21-2022 17:08-0400 Body height 147.3 cm Ángel Maddox MD Work Phone: [facility] 05-21-2022 17:08-0400 Body mass index (BMI) [Ratio] 35.95 kg/m2 Ángel Maddox MD Work Phone: [facility] 05-21-2022 17:08-0400 Body temperature 98.2 [degF] Ángel Maddox MD Work Phone: [facility] 05-21-2022 17:08-0400 Body weight 78.02 kg Ángel Maddox MD Work Phone: [facility] 04-28-2022 19:01-0400 Body height 147.3 cm Orlando Membreno DO Work Phone: [facility] 04-28-2022 19:01-0400 Body mass index (BMI) [Ratio] 35.53 kg/m2 Orlando Membreno DO Work Phone: [facility] 04-28-2022 19:01-0400 Body temperature 97.9 [degF] Orlando Membreno DO Work Phone: [facility] 04-28-2022 19:01-0400 Body weight 77.11 kg Orlando Membreno DO Work Phone: [facility] 04-28-2022 19:01-0400 Diastolic blood pressure 67 mm[Hg] Orlando Membreno DO Work Phone: [facility] 04-28-2022 19:01-0400 Heart rate 79 /min Orlando Membreno DO Work Phone: [facility] 04-28-2022 19:01-0400 Respiratory rate 18 /min Orlando Membreno DO Work Phone: [facility] 04-28-2022 19:01-0400 SaO2% (BldA) [Mass fraction] 97 % Orlando Membreno DO Work Phone: [facility] 04-28-2022 19:01-0400 Systolic blood pressure 123 mm[Hg] Orlando Membreno DO Work Phone: [facility] 02-21-2022 15:04-0500 Body height 147.32 cm [facility] 02-21-2022 15:04-0500 Body mass index (BMI) [Ratio] 39.2 kg/m2 [facility] 02-21-2022 15:04-0500 Body temperature 97.8 [degF] [facility] 02-21-2022 15:04-0500 Body weight 85.27 kg [facility] 02-21-2022 15:04-0500 Diastolic blood pressure 76 mm[Hg] [facility] 02-21-2022 15:04-0500 Heart rate 84 /min [facility] 02-21-2022 15:04-0500 Respiratory rate 15 /min [facility] 02-21-2022 15:04-0500 SaO2% (BldA) [Mass fraction] 96 % [facility] 02-21-2022 15:04-0500 Systolic blood pressure 136 mm[Hg] [facility] 01-14-2022 13:39-0500 Diastolic blood pressure 87 mm[Hg] [facility] 01-14-2022 13:39-0500 Heart rate 78 /min [facility] 01-14-2022 13:39-0500 Respiratory rate 16 /min [facility] 01-14-2022 13:39-0500 SaO2% (BldA) [Mass fraction] 97 % [facility] 01-14-2022 13:39-0500 Systolic blood pressure 127 mm[Hg] [facility] 01-14-2022 10:59-0500 Body height 147.32 cm [facility] Work Phone: 01-14-2022 10:59-0500 Body mass index (BMI) [Ratio] 34.4 kg/m2 [facility] 01-14-2022 10:59-0500 Body temperature 97.8 [degF] [facility] 01-14-2022 10:59-0500 Body weight 74.84 kg [facility] 07-13-2021 19:45-0400 Diastolic blood pressure 62 mm[Hg] MADELINE MENENDEZ MD [facility] 07-13-2021 19:45-0400 Heart rate 86 /min MADELINE MENENDEZ MD [facility] 07-13-2021 19:45-0400 Reason For Taking VItal Signs MADELINE MENENDEZ MD [facility] 07-13-2021 19:45-0400 Respiratory rate 16 /min MADELINE MENENDEZ MD [facility] 07-13-2021 19:45-0400 Systolic blood pressure 103 mm[Hg] MADELINE MENENDEZ MD [facility] 07-13-2021 18:39-0400 Diastolic blood pressure 64 mm[Hg] MADELINE MENENDEZ MD [facility] 07-13-2021 18:39-0400 Heart rate 92 /min MADELINE MENENDEZ MD [facility] 07-13-2021 18:39-0400 Respiratory rate 18 /min MADELINE MENENDEZ MD [facility] 07-13-2021 18:39-0400 Systolic blood pressure 102 mm[Hg] MADELINE MENENDEZ MD [facility] 07-13-2021 18:04-0400 Diastolic blood pressure 65 mm[Hg] MADELINE MENENDEZ MD [facility] 07-13-2021 18:04-0400 Heart rate 72 /min MADELINE MENENDEZ MD [facility] 07-13-2021 18:04-0400 Reason For Taking VItal Signs MADELINE MENENDEZ MD [facility] 07-13-2021 18:04-0400 Respiratory rate 20 /min MADELINE MENENDEZ MD [facility] 07-13-2021 18:04-0400 Systolic blood pressure 113 mm[Hg] MADELINE MENENDEZ MD [facility] 07-13-2021 17:09-0400 Body temperature 98.6 [degF] MADELINE MENENDEZ MD [facility] Encounters Encounter Date Encounter Type Care Provider Facility Start: 07-18-2024 End: 07-18-2024 Office outpatient visit 15 minutes Francine Medeiros PASharlaC Work Phone: [facility] Brian Shrestha Comment on above: Closed displaced fra cture of distal phalanx of left ring finger with routine healing, subsequent encounter (Primary Dx) Start: 07-18-2024 End: 07-18-2024 ambulatory FRANCINE WALDEMAR [facility] Start: 07-15-2024 End: 07-15-2024 ambulatory CRISTOBAL OTOOLE Facility:[facility] [facility] Start: 07-10-2024 End: 07-10-2024 ambulatory Cristobal Otoole LOAN COUNSELOR-C Work Phone: [facility] Work Phone: Start: 07-10-2024 End: 07-10-2024 Discharged Recurring Cristobal Otoole LOAN COUNSELOR-C Work Phone: -Occupational Therapy Work Phone: Start: 07-09-2024 End: 07-09-2024 ambulatory ARJUN DANIELS Facility:[facility] Start: 06-14-2024 End: 06-14-2024 ambulatory BANG MANDUJANO Facility:[facility] Start: 06-11-2024 End: 06-11-2024 ambulatory CRISTOBAL OTOOLE Facility:[facility] Start: 06-11-2024 End: 06-11-2024 ambulatory CRISTOBAL C TRILL Facility:[facility] Start: 06-10-2024 End: 06-10-2024 ambulatory CRISTOBAL C TRILL Facility:[facility] Start: 06-09-2024 End: 06-09-2024 ambulatory CRISTOBAL C TRILL Facility:[facility] Start: 06-06-2024 End: 06-06-2024 ambulatory CRISTOBAL OTOOLE Facility:[facility] Start: 06-05-2024 End: 06-05-2024 Postop follow up visit related to original px Francine Medeiros PA-C Work Phone: [facility] [place] Comment on above: Closed displaced fra cture of distal phalanx of left ring finger with routine healing, subsequent encounter (Primary Dx) Start: 06-05-2024 End: 06-05-2024 ambulatory FRANCINE [facility] Start: 06-04-2024 End: 06-04-2024 Subsequent hospital visit by physician Francine Medeiros PA-C Work Phone: [facility] Radiology Comment on above: Closed displaced fra cture of distal phalanx of left ring finger with routine healing, subsequent encounter Start: 06-04-2024 End: 06-04-2024 ambulatory FRANCINE [facility] Start: 05-22-2024 End: 05-22-2024 Documentation procedure Linda Randle PT [facility] [place] Comment on above: PT Discharge Start: 05-08-2024 End: 05-08-2024 Postop follow up visit related to original px Francine Medeiros PA-C Work Phone: [facility] [place] Comment on above: Closed displaced fra cture of distal phalanx of left ring finger with routine healing, subsequent encounter (Primary Dx) Start: 05-08-2024 End: 05-08-2024 Subsequent hospital visit by physician Francine PIKE-C Work Phone: [facility] Comment on above: Closed displaced fra cture of distal phalanx of left ring finger with routine healing, subsequent encounter Start: 05-08-2024 End: 05-08-2024 ambulatory FRANCINE [facility] Start: 04-24-2024 End: 04-24-2024 Postop follow up visit related to original px Francine Medeiros PA-C Work Phone: [facility] [place] Comment on above: Postoperative pain ( Primary Dx); Closed displaced fracture of distal phalanx of left ring finger with routine healing, subsequent encounter Start: 04-24-2024 End: 04-24-2024 ambulatory FRANCINE [facility] Start: 04-17-2024 End: 04-17-2024 Patient encounter procedure Brit [facility] Work Phone: Start: 04-17-2024 End: 04-17-2024 ambulatory Cristobal Otoole NP Facility:[facility] Start: 04-11-2024 End: 04-11-2024 Postop follow up visit related to original px Francine Martinezhaleigh PIKE-C Work Phone: [facility] Comment on above: Closed displaced fra cture of distal phalanx of left ring finger with routine healing, subsequent encounter Start: 04-11-2024 End: 04-11-2024 ambulatory FRANCINE [facility] Start: 04-10-2024 End: 04-10-2024 Postop follow up visit related to original px Francine Martinezhaleigh PIKE-C Work Phone: [facility] [place] Comment on above: Closed displaced fra cture of distal phalanx of left ring finger with routine healing, subsequent encounter (Primary Dx) Start: 04-10-2024 End: 04-10-2024 Subsequent hospital visit by physician Francine PIKE-C Work Phone: [facility] Rad Comment on above: Closed displaced fra cture of distal phalanx of left ring finger with routine healing, subsequent encounter Start: 04-10-2024 End: 04-10-2024 ambulatory FRANCINE [facility] Start: 04-04-2024 End: 04-04-2024 Postop follow up visit related to original px Trent Alas MD Work Phone: [facility] [place]la Shrestha Comment on above: Postoperative pain ( Primary Dx); Closed displaced fracture of distal phalanx of left ring finger with routine healing, subsequent encounter Start: 04-04-2024 End: 04-04-2024 ambulatory [facility] Start: 04-03-2024 End: 04-04-2024 Emergency department patient visit Jose Angel Casas MD Work Phone: [facility] EM[facility]ENCY [facility]PT Comment on above: Post-op pain (Primar y Dx); History of hand surgery Start: 04-03-2024 End: 04-03-2024 Telephone encounter Trent Alas MD Work Phone: [facility] - [place] Comment on above: Post-op Problem (geno n) Start: 04-01-2024 End: 04-01-2024 ambulatory [facility] Start: 04-01-2024 End: 04-01-2024 Subsequent hospital visit by physician Trent Alas MD Work Phone: [facility] MAIN OR Comment on above: Postoperative pain ( Primary Dx) Start: 03-31-2024 End: 03-31-2024 ambulatory Francine Medeiros PA-C Work Phone: [facility] [place] Start: 03-28-2024 End: 03-28-2024 ambulatory Cristobal URIOSTEGUI Work Phone: [facility] Work Phone: Start: 03-28-2024 End: 03-28-2024 Patient encounter procedure Brit GARCIA [facility] Work Phone: Start: 03-27-2024 End: 03-31-2024 Telephone encounter Trent Alas MD Work Phone: [facility] - [place] Comment on above: Surgery Scheduling ( Surgery scheduling slip) Start: 03-27-2024 End: 03-27-2024 Office outpatient visit 25 minutes Trent Alas MD Work [facility]: [facility] Comment on above: Closed displaced fra cture of distal phalanx of left ring finger with routine healing, subsequent encounter (Primary Dx) Start: 03-27-2024 End: 03-27-2024 Subsequent hospital visit by physician Francine Medeiros PA-C Work Phone: [facility] Rad Comment on above: Closed displaced fra cture of distal phalanx of left ring finger with routine healing, subsequent encounter Start: 03-27-2024 End: 03-28-2024 ambulatory Brit Fulk Facility:[facility] Start: 03-13-2024 End: 03-13-2024 ambulatory CRISTOBAL C TRILL Facility:[facility] Start: 03-12-2024 End: 03-12-2024 ambulatory CRISTOBAL C TRILL Facility:[facility] Start: 03-11-2024 End: 03-11-2024 ambulatory CRISTOBAL C TRILL Facility:[facility] Start: 03-11-2024 End: 03-11-2024 ambulatory CRISTOBAL C TRILL Facility:[facility] Start: 03-10-2024 End: 03-10-2024 Follow-up encounter Cristobal Otoole Work Phone: [facility] [place] Comment on above: Torticollis (Primary Dx) Start: 03-10-2024 End: 03-10-2024 ambulatory [facility] Start: 03-06-2024 End: 03-06-2024 ambulatory [facility] Start: 03-06-2024 End: 03-06-2024 Follow-up encounter Linda Randle PT [facility] [place] Comment on above: Torticollis (Primary Dx); Anesthesia of skin Start: 03-05-2024 End: 03-05-2024 ambulatory CRISTOBAL C TRILL Facility:[facility] Start: 02-28-2024 End: 02-28-2024 Office outpatient new 30 minutes Trent Alas MD Work Phone: [facility] [place] Comment on above: Closed displaced fra cture of distal phalanx of left ring finger, initial encounter (Primary Dx) Start: 02-28-2024 End: 02-28-2024 ambulatory [facility] Start: 02-22-2024 End: 02-22-2024 Subsequent hospital visit by physician [facility] [employer] [facility] Radiology Comment on above: Arrived Start: 02-22-2024 End: 02-22-2024 Emergency department patient visit Monique Palma MD Work Phone: [facility] ED Comment on above: Closed nondisplaced fracture of distal phalanx of left ring finger, initial encounter (Primary Dx) Start: 02-22-2024 End: 02-22-2024 Patient encounter procedure Brit [facility] Work Phone: Start: 02-22-2024 End: 02-22-2024 ambulatory Brit Fulk Facility:[facility] Start: 02-18-2024 End: 02-18-2024 ambulatory Linda Randle PT [employer] [facility] at [place] Start: 02-18-2024 End: 02-18-2024 Anesthesia consultation Cristobal Otoole Work Phone: [email or web address] [facility] [place] Comment on above: Torticollis (Primary Dx); Anesthesia of skin Start: 02-15-2024 ambulatory Brit Braulio Facility:[facility] Start: 02-14-2024 End: 02-14-2024 Follow-up encounter Linda Randle PT [employer] [facility] [place] Comment on above: Torticollis (Primary Dx) Start: 02-14-2024 End: 02-14-2024 ambulatory [employer] [facility] Start: 02-08-2024 End: 02-08-2024 Follow-up encounter Cristobal Otoole Work Phone: [email or web address] [facility] [place] Comment on above: Torticollis (Primary Dx) Start: 02-08-2024 End: 02-08-2024 ambulatory [employer] [facility] Start: 02-04-2024 End: 02-04-2024 Follow-up encounter Cristobal Otoole Work Phone: [email or web address] [facility] [place] Comment on above: Torticollis (Primary Dx); Pain in left shoulder; Anesthesia of skin Start: 02-04-2024 End: 02-04-2024 ambulatory [facility] Start: 01-31-2024 End: 01-31-2024 Follow-up encounter Cherelle Valerio PTA [facility] [place] Comment on above: Torticollis (Primary Dx); Pain in left shoulder Start: 01-31-2024 End: 01-31-2024 ambulatory CRISTOBAL [facility] Start: 01-25-2024 End: 01-25-2024 ambulatory CRISTOBAL OTOOLE Facility:[facility] Start: 01-24-2024 End: 01-24-2024 Follow-up encounter Cristobal Otoole Work Phone: [facility] [place] Comment on above: Torticollis (Primary Dx); Anesthesia of skin Start: 01-24-2024 End: 01-24-2024 [facility] Start: 01-21-2024 End: 01-21-2024 Follow-up encounter Cristobal Otoole Work Phone: [facility] [place] Comment on above: Torticollis (Primary Dx); Anesthesia of skin Start: 01-21-2024 End: 01-21-2024 [facility] CRIST[facility]AL [facility] Start: 01-17-2024 End: 01-17-2024 Follow-up encounter Cristobal Otoole Work Phone: [facility] [place] Comment on above: Anesthesia of skin ( Primary Dx) Start: 01-17-2024 End: 01-17-2024 ambulatory CRISTOBAL [facility] Start: 01-10-2024 End: 01-10-2024 Anesthesia consultation Cristobal Otoole Work Phone: [facility] [place] Comment on above: Anesthesia of skin; Torticollis; Pain in left shoulder Start: 01-10-2024 End: 01-10-2024 ambulatory Linda Randle [facility] Therapy at [place] Start: 01-07-2024 End: 01-07-2024 Subsequent hospital visit by physician Sabas Reyes DPM Work Phone: [facility] Neuro Comment on above: Neuralgia and neurit is, unspecified; Pain in left foot; Pain in right foot Start: 01-07-2024 End: 01-07-2024 ambulatory Sabas Reyes DPM Work Phone: [facility] [place] Comment on above: Plantar fascial fibr omatosis (Primary Dx); Pain in left foot; Pain in right foot; Neuralgia and neuritis, unspecified Start: 01-02-2024 End: 01-02-2024 Follow-up encounter Cherelle Valerio [facility] [place] Comment on above: Plantar fascial fibr omatosis (Primary Dx); Pain in left foot; Pain in right foot; Neuralgia and neuritis, unspecified Start: 01-02-2024 End: 01-02-2024 ambulatory SABAS MENDIOLAMARIANNE [facility] Start: 01-01-2024 End: 01-01-2024 ambulatory CRISTOBAL OTOOLE Facility:[facility] Start: 12-31-2023 End: 12-31-2023 Follow-up encounter Sabas Reyes DPM Work Phone: [facility] [place] Comment on above: Plantar fascial fibr omatosis (Primary Dx) Start: 12-31-2023 End: 12-31-2023 ambulatory CRISTOBAL OTOOLE [facility] Start: 12-28-2023 End: 03-28-2024 Transcribe Orders Sabas Reyes DPM Work Phone: [facility] Scheduling Comment on above: Neuralgia and neurit is, unspecified; Pain in left foot; Pain in right foot; Anesthesia of skin; Torticollis; Pain in left shoulder Start: 12-27-2023 End: 12-27-2023 [facility] Start: 12-27-2023 End: 12-27-2023 Follow-up encounter Cherelle Valerio [facility] [place] Comment on above: Plantar fascial fibr omatosis (Primary Dx); Pain in left foot; Pain in right foot; Neuralgia and neuritis, unspecified Start: 12-22-2023 End: 12-22-20[facility] Start: 12-22-2023 End: 12-22-2023 Follow-up encounter Sabas Reyes DPM Work Phone: [facility] [place] Comment on above: Plantar fascial fibr omatosis (Primary Dx); Pain in left foot; Pain in right foot; Neuralgia and neuritis, unspecified Start: 12-20-2023 End: 12-20-2023 Follow-up encounter Lindsey Mcgregor [facility] [place] Comment on above: Plantar fascial fibr omatosis (Primary Dx); Pain in left foot; Pain in right foot; Neuralgia and neuritis, unspecified Start: 12-20-2023 End: 12-20-2023 ambulatory CRISTOBAL OTOOLE [facility] Start: 12-15-2023 End: 12-15-2023 Follow-up encounter Sabas Reyes DPM Work Phone: [facility] [place] Comment on above: Plantar fascial fibr omatosis (Primary Dx); Pain in left foot; Pain in right foot Start: 12-15-2023 End: 12-15-2023 [facility] Start: 12-13-2023 End: 12-13-2023 Follow-up encounter Sabas Reyes DPM Work Phone: [facility] [place] Comment on above: Plantar fascial fibr omatosis (Primary Dx); Pain in left foot; Pain in right foot; Neuralgia and neuritis, unspecified Start: 12-13-2023 End: 12-13-2023 ambulatory SABAS MENDIOLARachel [facility] Start: 12-12-2023 End: 12-12-2023 ambulatory CRISTOBAL OTOOLE Facility:[facility] Start: 12-11-2023 End: 12-11-2023 ambulatory CRISTOBAL OTOOLE Facility:[facility] Start: 12-10-2023 End: 12-10-2023 ambulatory CRISTOBAL OTOOLE Facility:[facility] Start: 12-07-2023 End: 12-07-2023 ambulatory CRISTOBAL Perez [facility] Facility:[facility] Start: 12-05-2023 End: 12-05-2023 ambulatory Sabas Reyes DPM Work Phone: [facility] at [place] Comment on above: Plantar fascial fibr omatosis (Primary Dx); Pain in left foot; Pain in right foot; Neuralgia and neuritis, unspecified Start: 11-28-2023 End: 11-28-2023 Follow-up encounter Cherelle Valerio [facility] Therapy at [place] Comment on above: Plantar fascial fibr omatosis (Primary Dx); Pain in left foot; Pain in right foot; Neuralgia and neuritis, unspecified Start: 11-28-2023 End: 11-28-2023 [facility] Start: 11-26-2023 End: 11-26-2023 Follow-up encounter Sabas Reyes DPM Work Phone: [facility] [place] Comment on above: Plantar fascial fibr omatosis (Primary Dx); Pain in left foot; Neuralgia and neuritis, unspecified; Pain in right foot Start: 11-26-2023 End: 11-26-2023 [facility] Start: 11-21-2023 End: 11-21-2023 ambulatory SABAS [facility] Start: 11-21-2023 End: 11-21-2023 Follow-up encounter Linda Randle [facility] [place] Comment on above: Plantar fascial fibr omatosis (Primary Dx); Pain in left foot; Neuralgia and neuritis, unspecified; Pain in right foot Start: 11-19-2023 End: 11-19-2023 Follow-up encounter Cherelle Valerio [facility] Therapy at [place] Comment on above: Plantar fascial fibr omatosis (Primary Dx); Pain in left foot Start: 11-19-2023 End: 11-19-2023 ambulatory SABAS REYES [facility] Start: 11-14-2023 End: 11-14-2023 ambulatory CRISTOBAL OTOOLE Facility:[facility] Start: 11-14-2023 End: 11-14-2023 Follow-up encounter Sabas SINGHM Work Phone: [facility] Therapy at [place] Comment on above: Plantar fascial fibr omatosis (Primary Dx); Pain in left foot Start: 11-08-2023 End: 11-08-2023 Emergency department patient visit Elmer Nelson Facility:[facility] Start: 10-31-2023 End: 10-31-2023 ambulatory Sabas SINGHM Work Phone: [facility] Therapy at [place] Comment on above: Plantar fascial fibr omatosis; Pain in left foot; Neuralgia and neuritis, unspecified Start: 10-24-2023 End: 01-23-2024 Transcribe Orders Sabas SINGHM Work Phone: [facility] Scheduling Comment on above: Plantar fascial fibr omatosis (Primary Dx); Pain in left foot; Neuralgia and neuritis, unspecified Start: 10-04-2023 End: 10-04-2023 ambulatory CRISTOBAL OTOOLE Facility:[facility] Start: 09-26-2023 End: 09-26-2023 Documentation procedure Myrtle Garcia PT [facility] Comment on above: PT Discharge Start: 09-18-2023 End: 09-18-2023 ambulatory CRISTOBAL OTOOLE Facility:[facility] Start: 09-18-2023 End: 09-18-2023 Emergency department patient visit Cristobal Otoole NP Facility:[facility] Start: 09-11-2023 End: 09-12-2023 ambulatory CRISTOBAL OTOOLE Facility:[facility] Start: 08-28-2023 End: 08-28-2023 ambulatory CRISTOBAL OTOOLE Facility:[facility] Start: 08-27-2023 End: 08-27-2023 ambulatory CRISTOBAL OTOOLE Facility:[facility] Start: 08-22-2023 End: 08-22-2023 ambulatory Sabas Reyes DPM Work Phone: [facility] Comment on above: Plantar fascial fibr omatosis; Pain in left foot; Pain in right foot Start: 08-20-2023 End: 11-19-2023 Transcribe Orders Sabas Reyes DPM Work Phone: [facility] Scheduling Comment on above: Plantar fascial fibr omatosis (Primary Dx); Pain in left foot; Pain in right foot Start: 08-17-2023 End: 08-18-2023 Emergency department patient visit ISHAAN BRENNA Facility:[facility] Start: 07-30-2023 ambulatory CRISTOBAL C TRILL Facilit y:[facility] Start: 07-30-2023 End: 07-30-2023 ambulatory CRISTOBAL C XIANG Facility:[facility] Start: 07-20-2023 End: 07-20-2023 ambulatory CRISTOBAL C TRIDELMI Facility:[facility] Start: 07-19-2023 End: 07-19-2023 ambulatory CRISTOBAL C TRIDELMI Facility:[facility] Start: 07-18-2023 End: 07-18-2023 ambulatory CRISTOBAL C TRIDELMI Facility:[facility] Start: 05-18-2023 End: 05-18-2023 ambulatory SABAS REYES Facility:[id number] Start: 10-24-2022 ambulatory MICHAEL MCKEON Facility :[facility] Start: 07-05-2022 Transcribe Orders Sabas watson DPM Work Phone: [facility] Scheduling Comment on above: Spontaneous rupture of extensor tendons, left lower leg (Primary Dx); Short Achilles tendon (acquired), left ankle; Plantar fascial fibromatosis Start: 05-21-2022 End: 05-21-2022 Subsequent hospital visit by physician [facility] [address] Exam Room [address] [facility] [address] Comment on above: Arrived Start: 05-21-2022 End: 05-21-2022 Emergency department patient visit Ángel Maddox MD Work Phone: [facility] ED Comment on above: Flank pain (Primary Dx) Start: 04-28-2022 End: 04-28-2022 Emergency department patient visit Orlando Membreno DO Work Phone: [facility] ED Comment on above: Migraine with aura a nd without status migrainosus, not intractable (Primary Dx) Start: 02-21-2022 End: 02-21-2022 Emergency department patient visit [facility] Start: 01-14-2022 End: 01-14-2022 Emergency department patient visit [facility] Start: 10-27-2021 ambulatory CRISTOBAL OTOOLE [facility] Start: 07-13-2021 End: 07-13-2021 Emergency department patient visit MADELINE MENENDEZ MD [facility] Start: 12-10-2017 Emergency department patient visit UNKNOWN PROVIDER [facility] Start: 08-11-2016 End: 08-12-2016 Ambulatory ANIL HOSKINS Facility:[facility] [place] Procedures Date Procedure Procedure Detail Performing Clinician Start: 04-17-2024 X-ray of cervical spine Cristobal URIOSTEGUI Work Phone: Start: 04-10-2024 Radex hand minimum 3 views Francine Medeiros PA-C Work Phone: Start: 04-03-2024 Radex hand minimum 3 views Jose Angel Casas MD Work Phone: Start: 04-03-2024 Basic metabolic pane l calcium total Jose Angel Casas MD Work Phone: Start: 04-03-2024 C-reactive protein Cornell Casas MD Work Phone: Start: 03-28-2024 MRI of cervical spine Daren URIOSTEGUI Work Phone: Start: 03-27-2024 Radex fingr minimum 2 views Francine Medeiros PA-C Work Phone: Start: 02-22-2024 Radex fingr minimum 2 views Monique Palma MD Work Phone: Start: 02-22-2024 PB ED PLACEHOLDER Shonna Palma MD Work Phone: Start: 02-22-2024 X-ray of lumbosacral spine Cristobal Horndelmi LOAN COUNSELOR-C Work Phone: Start: 05-21-2022 Urinalysis complete panel - Urine Binta Vidal MD Work Phone: Start: 05-21-2022 Urnls dip stick/tabl et rgnt auto w/o microscopy Binta Vidal MD Work Phone: Start: 05-21-2022 Ct angiography chest w/contrast/noncontrast Ángel Maddox MD Work Phone: Start: 05-21-2022 Ct abdomen & pelvis w/o contrast material Ángel Maddox MD Work Phone: Start: 05-21-2022 Radiologic exam ches t single view Ángel Maddox MD Work Phone: Start: 05-21-2022 Basic metabolic pane l calcium total Ángel Maddox MD Work Phone: Start: 05-21-2022 Ecg routine ecg w/le ast 12 lds trcg only w/o i&r Ángel Maddox MD Work Phone: Start: 05-21-2022 Fibrin dgradj produc ts d-dimer quantitative Ángel Maddox MD Work Phone: Start: 02-21-2022 CT of head without contrast Start: 01-14-2022 CT of abdomen and pe lvis without contrast H/O: surgery History of hand surgery Jose Angel Casas MD Work Phone: Influenza Types A,B Direct FA (RL) Influenza Types A,B Direct FA (RL) None (qualifier value) MADELINE MENENDEZ MD Plan of Treatment Date Care Activity Detail Author Start: 2050 RSV Immunization for Adults (1 - 1-dose 75+ series) RSV Immunization for Adults (1 - 1-dose 75+ series) [facility] Start: 2035 RSV Immunization age d 60 or older (1 - 1-dose 60+ series) RSV Immunization aged 60 or older (1 - 1-dose 60+ series) [facility] Start: 11-07-2033 DTaP/Tdap/Td Vaccine s (4 - Td or Tdap) DTaP/Tdap/Td Vaccines (4 - Td or Tdap) [facility] Start: 10-14-2030 DTaP/Tdap/Td Vaccine s (2 - Td or Tdap) DTaP/Tdap/Td Vaccines (2 - Td or Tdap) [facility] Start: 10-14-2030 DTaP/Tdap/Td Vaccine s (3 - Td or Tdap) DTaP/Tdap/Td Vaccines (3 - Td or Tdap) [facility] Start: 2025 Screening for malign ant neoplasm of lung Lung Cancer Screening [facility] Start: 2025 Zoster Vaccines (1 o f 2) Zoster Vaccines (1 of 2) [facility] Start: 10-06-2024 Influenza vaccination Influenz a Vaccine (Season Ended) [facility] Start: 07-18-2024 End: 07-18-2024 Patient encounter procedure 07/18/2024 8:00 AM EDT Office Visit [facility] 1 [facility] [place] [address] [place] [address] Francine Medeiros PA-C 1 [facility] [place] [address] [place] [address] [facility] [place] Start: 06-05-2024 End: 06-05-2024 Patient encounter procedure 06/05/2024 1:30 PM EDT Office Visit [facility] - [place] [address] [place] [address] [place] [phone] Francine Medeiros PA-C 1 [facility] [place] [address] [place] [address] [facility] Start: 05-29-2024 End: 05-29-2025 XR Hand - left 3 Views XR hand 3+ views left Imaging Routine Closed displaced fracture of distal phalanx of left ring finger with routine healing, subsequent encounter Expected: 05/29/2024, Expires: 05/29/2025 [facility] Work Phone: Comment on above: Expected: 05/29/2024 , Expires: 05/29/2025 Start: 05-08-2024 End: 05-08-2024 Patient encounter procedure 05/08/2024 8:00 AM EDT Office Visit [facility] [place] [address] [place] [address] [place] [phone] Francine Medeiros PA-C 1 [facility] [place] [address] [place], [place] [id number] [facility] Start: 05-01-2024 End: 05-01-2025 XR Hand - left 3 Views XR hand 3+ views left Imaging Routine Closed displaced fracture of distal phalanx of left ring finger with routine healing, subsequent encounter Expected: 05/01/2024, Expires: 05/01/2025 [facility] Note Work Phone: Comment on above: Expected: 05/01/2024 , Expires: 05/01/2025 Start: 04-17-2024 Patient referral [facility] Work Phone: Start: 04-11-2024 End: 04-11-2024 Patient encounter procedure 04/11/2024 2:45 PM EST Office Visit [facility] and [facility] - [place] 1 [facility] [place] [address] [place] [address] Francine Medeiros PA-C 1 [facility] [place] [address] [place] [address] [facility] and [facility] [place] Start: 04-10-2024 End: 04-10-2024 Patient encounter procedure 04/10/2024 9:00 AM EST Office Visit [facility] [place] [address] [place] [address] [place] [address] Francine Medeiros PA-C 1 [facility] [place] [address] [place], [place] [phone] [facility] Start: 04-02-2024 End: 04-02-2024 Follow-up encounter [facility] [place] Start: 04-01-2024 End: 04-01-2024 Admission to same day surgery center [facility] Comment on above: CLOSED REDUCTION PER CUTANEOUS PINNING LEFT RING FINGER DISTAL PHALANX FRACTURE [62462 (CPT )] Start: 04-01-2024 End: 04-01-2024 Prq skel fixj dstl phlngl fx fngr/thmb ea [facility] Operating Room Start: 04-01-2024 Subsequent hospital visit by physician [facility] Start: 03-31-2024 End: 03-31-2024 Admission to establishment 03/31/2024 9:30 AM EST Pre-Admission Testing [facility] Pre-Admit Testing [address] [place] [phone] Trent Alas MD 1 [facility] [place] [address] [place], [place] [id number] [facility] Pre-Admit Testing Start: 03-27-2024 End: 03-27-2024 [facility]-up encounter [facility] [place] Start: 03-27-2024 End: 03-27-2024 Patient encounter procedure 03/27/2024 8:00 AM EST Office Visit [facility] Sharla Khanna [address] [place] [address] [place] [address] Trent Alas MD 1 [facility] [place] [address] [place] [address] [facility] Start: 03-20-2024 End: 03-20-2024 Follow-up encounter 03/20/2024 8:30 AM EST Follow-Up [facility] [place] [facility] [address] [place] [address] [place] [address] Cherelle Valerio PTA [facility] [place] Start: 03-13-2024 End: 03-13-2024 Follow-up encounter 03/13/2024 8:30 AM EST Follow-Up [facility] [place] [address] [address] Cherelle Valerio PTA [facility] [place] Start: 03-10-2024 End: 03-10-2024 Follow-up encounter 03/10/2024 2:30 PM EST Follow-Up [facility] [place] [address] [place] [address] [place] [address] Lindsey Mcgregor PTA [facility] [place] Start: 03-06-2024 End: 03-06-2024 Follow-up encounter 03/06/2024 8:30 AM EST Follow-Up [facility] [place] [address] [address] Linda Randle, PT [facility] [place] Start: 02-28-2024 End: 02-28-2024 Follow-up encounter [facility] [place] Start: 02-18-2024 End: 02-18-2024 ambulatory [facility] [place] Start: 02-16-2024 End: 02-16-2024 Follow-up encounter 02/16/2024 8:00 AM EST Follow-Up [facility] [place] [address] [address] [place] [address] [place] [address] Natalie Flaherty PTA [facility] Start: 02-14-2024 End: 02-14-2024 Follow-up encounter 02/14/2024 8:00 AM EST Follow-Up [facility] [place] [address] [address] [place] [address] Linda Randle, PT [facility] Start: 02-12-2024 End: 02-12-2024 Follow-up encounter 02/12/2024 12:00 PM EST Follow-Up [facility] at [address] [place] [address] [place] [address] Linda Randle PT [facility] Start: 02-11-2024 End: 02-11-2024 Follow-up encounter 02/11/2024 8:00 AM EST Follow-Up [facility] at [address] [address] [place] [address] Linda Randle, DONNA [facility] Start: 02-08-2024 End: 02-08-2024 Follow-up encounter 02/08/2024 11:30 AM EST Follow-Up [facility] at [address] [place] [address] [place] [address] Cherelle Valerio PTA [facility] Start: 02-07-2024 End: 02-07-2024 Follow-up encounter 02/07/2024 7:30 AM EST Follow-Up [facility] at [address] [place] [address] [place] [address] Cherelle Valerio PTA [facility] Start: 02-04-2024 End: 02-04-2024 Follow-up encounter 02/04/2024 8:30 AM EST Follow-Up [facility] [address] [address] Cherelle Valerio PTA [facility] Start: 01-31-2024 End: 01-31-2024 Follow-up encounter 01/31/2024 8:00 AM EST Follow-Up [facility] [address] [place] [address] Cherelle Valerio PTA [facility] Start: 01-28-2024 End: 01-28-2024 Follow-up encounter 01/28/2024 7:30 AM EST Follow-Up [facility] [address] [place] [address] [place] [address] Lindsey Mcgregor, ELAN [facility] Start: 01-24-2024 End: 01-24-2024 Follow-up encounter 01/24/2024 8:00 AM EST Follow-Up [facility] [place] [address] [address] Linda Randle, PT [facility] Start: 01-21-2024 End: 01-21-2024 Follow-up encounter 01/21/2024 7:30 AM EST Follow-Up [facility] at [address] [place] [place] [address] [place] [address] Lindsey Mcgregor, ELAN [facility] Start: 01-17-2024 End: 01-17-2024 Follow-up encounter [facility] Start: 01-10-2024 End: 01-10-2024 ambulatory 01/10/2024 8:00 AM EST Evaluation [facility] [address] [address] [place] [address] Linda Randle, PT [facility] Start: 01-07-2024 End: 01-07-2024 Patient encounter procedure 01/07/2024 2:00 PM EST Appointment [facility] [address] [place] [address] Sabas Reyes, GABBY [address] [place] [phone] [facility] Start: 01-07-2024 End: 01-07-2024 ambulatory 01/07/2024 8:00 AM EST Evaluation [facility] [address] [place] [address] Linda Randle PT [facility] [place] Start: 01-05-2024 End: 01-05-2024 [address] [facility] [place] [facility] Start: 01-02-2024 End: 01-02-2024 Follow-up encounter 01/02/2024 8:00 AM EST Follow-Up [facility] [place] [facility] [address] [place] [address] [facility] [place] [facility] Start: 12-31-2023 End: 12-31-2023 Follow-up encounter [facility] [place] Start: 12-29-2023 End: 12-29-2023 Follow-up encounter 12/29/2023 7:00 AM EST Follow-Up [facility] [place] [address] [place] [address] [address] [facility] [place] [facility] Start: 12-28-2023 End: 12-27-2024 Nerve conduction test with EMG Nerve conduction test with [facility] Neurology Routine Neuralgia and neuritis, unspecified Pain in left foot Pain in right foot Expected: 12/28/2023 (Approximate), Expires: 12/27/2024 [facility] Work Phone: Comment on above: Expected: 12/28/2023 (Approximate), Expires: 12/27/2024 Start: 12-27-2023 End: 12-27-2023 Follow-up encounter 12/27/2023 8:00 AM EST Follow-Up [facility] [address] [place] [address] Cheerlle Valerio PTA [facility] Start: 12-24-2023 End: 12-24-2023 Follow-up encounter 12/24/2023 8:00 AM EST Follow-Up [facility] [address] [place] [address] Cherelle Valerio PTA [facility] Start: 12-22-2023 End: 12-22-2023 Follow-up encounter [facility] Start: 12-20-2023 End: 12-20-2023 Follow-up encounter 12/20/2023 1:00 PM EST Follow-Up [facility] [address] [place] [address] Linda Randle, DONNA [facility] Start: 12-18-2023 End: 12-18-2023 Follow-up encounter 12/18/2023 8:00 AM EST Follow-Up [facility] at [address] [place] [address] Lindsey Mcgregor PTA [facility] Start: 12-15-2023 End: 12-15-2023 Follow-up encounter 12/15/2023 8:00 AM EST Follow-Up [facility] at [address] [place] [address] Sabas Reyes, GABBY [address] [place] [address] Kalpesh Dumont PTA [facility] [place] Start: 12-13-2023 End: 12-13-2023 Follow-up encounter 12/13/2023 10:30 AM EST Follow-Up [facility] [place] [facility] [address] Sabas Reyes, GABBY [address] [place] [address] Cherelle Valerio PTA [facility] Start: 12-05-2023 End: 12-05-2023 ambulatory 12/05/2023 9:00 AM EDT Evaluation [facility] at [address] [facility] [place] [address] Sabas Reeys, GABBY [address] [address] Linda Randle, PT [facility] Start: 12-03-2023 End: 12-03-2023 ambulatory 12/03/2023 9:00 AM EDT Evaluation [facility] at [address] [place] [address] Linda Randle, PT [facility] Start: 11-28-2023 End: 11-28-2023 Follow-up encounter 11/28/2023 8:30 AM EDT Follow-Up [facility] at [address] [facility] [place] [address] Cherelle Valerio PTA [facility] Start: 11-26-2023 End: 11-26-2023 Follow-up encounter 11/26/2023 9:00 AM EDT Follow-Up [facility] [address] [facility] [place] [address] Cherelle Valerio PTA [facility] Therapy at [facility] Start: 11-21-2023 End: 11-21-2023 Follow-up encounter 11/21/2023 9:00 AM EDT Follow-Up [facility] Health Therapy at [facility] [address] [facility] [place] [address] Linda Randle PT [facility] Health Therapy at [facility] Start: 11-19-2023 End: 11-19-2023 Follow-up encounter 11/19/2023 9:00 AM EDT Follow-Up [facility] Health Therapy at [address] [place] [address] Cherelle Valerio PTA [facility] Health Therapy at [facility] Start: 10-07-2023 COVID-19 Vaccine ( season) COVID-19 Vaccine ( season) [facility] Start: 10-07-2023 COVID-19 Vaccine ( season) COVID-19 Vaccine ( season) [facility] Start: 10-07-2023 Influenza vaccination Influenza Vacc ine (#1) [facility] Start: 10-06-2022 COVID-19 Vaccine ( season) COVID-19 Vaccine ( season) [facility] Start: 10-06-2022 Influenza vaccination Influenza Vacc ine (#1) [facility] Start: 07-05-2022 End: 07-06-2023 MR Ankle - left WO contrast MR ankle left wo contrast Imaging Routine Spontaneous rupture of extensor tendons, left lower leg Short Achilles tendon (acquired), left ankle Plantar fascial fibromatosis Expected: 07/05/2022, Expires: 07/06/2023 [facility] Work Phone: Comment on above: Expected: 07/05/2022 , Expires: 07/06/2023 Start: 02-04-2022 Pneumococcal Vaccine : Pediatrics (0 to 5 Years) and At-Risk Patients (6 to 49 Years) (2 of 2 - PCV) Pneumococcal Vaccine: Pediatrics (0 to 5 Years) and At-Risk Patients (6 to 49 Years) (2 of 2 - PCV) [facility] Start: 02-04-2022 Pneumococcal Vaccine : Pediatrics (0 to 5 Years) and At-Risk Patients (6 to 64 Years) (2 - PCV) Pneumococcal Vaccine: Pediatrics (0 to 5 Years) and At-Risk Patients (6 to 64 Years) (2 - PCV) [facility] Start: 02-04-2022 Pneumococcal Vaccine : Pediatrics (0 to 5 Years) and At-Risk Patients (6 to 64 Years) (2 of 2 - PCV) Pneumococcal Vaccine: Pediatrics (0 to 5 Years) and At-Risk Patients (6 to 64 Years) (2 of 2 - PCV) [facility] Start: 10-06-2021 Influenza vaccination Influenza Vacc ine (#1) [facility] Start: 2015 Screening for malign ant neoplasm of breast Mammogram [facility] Start: 2005 Screening for malign ant neoplasm of cervix [facility] Start: 01-09-1996 Screening for malign ant neoplasm of cervix Pap Smear [facility] Start: 1994 Hepatitis B Vaccines (1 of 3 - 19+ 3-dose series) Hepatitis B Vaccines (1 of 3 - 19+ 3-dose series) [facility] Start: 1993 Diabetes mellitus screening Diabetes Screening [facility] Start: 1993 Hepatitis C screening Hepatitis C Sc reening [facility] Start: 1987 Depression Screening Depression Scre ening [facility] Start: 1981 Pneumococcal Vaccine : Pediatrics (0 to 5 Years) and At-Risk Patients (6 to 64 Years) (1 - PCV) Pneumococcal Vaccine: Pediatrics (0 to 5 Years) and At-Risk Patients (6 to 64 Years) (1 - PCV) [facility] Start: 01-09-1976 MMR Vaccines (1 of 1 - Standard series) MMR Vaccines (1 of 1 - Standard series) [facility] Start: 1975 COVID-19 Vaccine (#1) COVID-19 Vacci ne (#1) [facility] Start: 1975 Hepatitis B Vaccines (1 of 3 - 3-dose series) Hepatitis B Vaccines (1 of 3 - 3-dose series) [facility] Start: 1975 HIV screening HIV Screening [facility] Start: 1975 Lipid panel Lipid Panel [facility] Start: 1975 Screening for malign ant neoplasm of colon [facility] End: 01-07-2024 Nerve conduction test with EMG [facility] Work Phone: Comment on above: Once for 1 Occurrenc es starting 01/07/2024 until 01/07/2024 OUTSIDE PROCEDURE SCAN OUTSIDE P ROCEDURE SCAN Procedures Ordered: 12/31/2023 [facility] Comment on above: Ordered: 12/31/2023 Patient Education [facility] Work Phone: Patient referral [facility] Work Phone: End: 05-08-2024 XR Hand - left 3 Views [facility] Comment on above: Once for 1 Occurrenc es starting 05/08/2024 until 05/08/2024 End: 06-04-2024 XR Hand - left 3 Views [facility] Work Phone: Comment on above: Once for 1 Occurrenc es starting 06/04/2024 until 06/04/2024 Immunizations Immunization Date Immunization Notes Care Provider Saumya benitez 11-08-2023 tetanus toxoid, redu tomy diphtheria toxoid, and acellular pertussis vaccine, adsorbed Cristobal Otoole LOAN COUNSELORSharlaC Work Phone: [facility] 01-05-2022 influenza virus vaccine, unspecified formulation Sabas Reyes DPM Work Phone: [facility] 10-14-2020 tetanus toxoid, redu tomy diphtheria toxoid, and acellular pertussis vaccine, adsorbed [facility] 12-20-2014 Influenza virus vaccine [facility] 12-20-2014 influenza virus vaccine, unspecified formulation Orlando Membreno DO Work Phone: [facility] Payers Date Payer Category Payer Self-pay [id number] 2021 Medicaid [id number] 2021 Medicaid HMO [id number] 2014 Medicaid [id number] 2014 Medicaid [id number] 1975 Unknown [id number] 2.16.8 [id number] Unknown Unknown [id number] 2.16.8 [id number] Unknown [id number] 2.16.8 [id number] Unknown [id number] 2.16.8 [id number] Unknown [id number] 2.16.8 [id number] Unknown [id number] 2.16.8 [id number] Unknown [id number] 2.16.8 [id number] Unknown [id number] 2.16.8 [id number] Unknown [id number] 2.16.8 [id number] Unknown [id number] 2.16.8 [id number] Social History Date Type Detail Facility Tobacco smoking status Ex-smoker (finding ) [facility] Sex Assigned At Sex [facility] Start: 01-14-2022 End: 02-21-2022 Tobacco smoking status ALIS Unknown if ever smoked [facility] Start: 11-29-[address] [facility] Start: 1975 Sex Assigned At Female [facility] Start: 02-06-1984 End: 03-31-2024 Tobacco smoking status NHIS Smokes tobacco daily [facility] Start: 02-06-1984 History of tobacco use Cigarette Smo ker [facility] Start: 04-28-2022 End: 02-28-2024 Alcohol intake Ex-drinker (finding) [facility] Start: 05-21-2022 History SDOH Alcohol Frequency 1 [facility] Start: 05-21-2022 History SDOH Alcohol Std Drinks 0 [facility] Start: 1975 Sex Assigned At Not on file [facility] Start: 04-18-2022 End: 05-21-2022 Exposure to SARS-CoV-2 (event) Not sure [facility] Start: 05-21-2022 End: 04-03-2024 History of Social function [facility] Start: 05-21-2022 End: 04-03-2024 Alcohol Use Disorder Identification Test - Consumption [AUDIT-C] [facility] How often to you hav e a drink containing alcohol? Never [facility] How many standard dr inks containing alcohol do you have on a typical day? Patient does not drink [facility] Start: 09-05-2021 End: 04-10-2024 Sex Female (finding) [facility] How often to you hav e a drink containing alcohol? Monthly or less [facility] How many standard dr inks containing alcohol do you have on a typical day? 1 or 2 [facility] Start: 03-31-2024 Tobacco Comment Has cut smokin g back for surgery [facility] Start: 04-01-2024 End: 04-03-2024 Alcoholic beverage intake Current drinker of alcohol (finding) [facility] Start: 04-01-2024 Alcohol Comment occasional [facility] NE[facility]: Highlighted row [facility] Functional Status Date Assessment Result Facility 07-13-2021 Functional Status ID band on, Allergy Band on, Call device within reach, Bed in low position, Wheels locked, Upper/Half-Length side-rails up, Bedside Cart Locked, Visitor at bedside, Safety level maintained [facility] 07-13-2021 Functional Status [facility] Mental Status Date Assessment Result Facility 01-14-2022 Cognitive function Level Of Cons ciousness Awake;Alert;Appropriate;Follow s Commands [facility] Work Phone: 07-13-2021 Mental Status Orientation Oriented x 4 [facility] 07-13-2021 [facility] Notes 07-13-2021 to 07-10-2024 Note Date & Type Note Facility 07-10-2024 Discharge summary Note Date/Time July 10, 2024 7:00p m [facility] Occupational Therapy [facility] [address] [place] [address] / REHABILITATION SERVICES DISCHARGE SUMMARY MR#: [id number] Acct: [id number] Name: BRITTNEY ALCOCER Rep #: [id number] 01 : 1975 49 From: Tena Russell OTR/Omar, CHT Referring Dr.: OUT OF TOWN DOCTOR Status: REG RCR Eval Date: Discharge Date: Discharge Summary D/C Summary: It has been my pleasure to treat BRITTNEY ALCOCER under orders from FRANCINE MEDEIROS, for the diagnosis of left RF displaced fx of distal phalanx for a total of 6 visit(s). Please see the following information for a summary of their discharge status. 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 pt has met OT goals and is d/c at this time. Goals Patient Goals: Regain Mobility, Decrease Pain, Improve Fine Motor Skills, Use Hand/Wrist/Arm Normally Again and Be More Independent in ADLS Goal:ROM equal to unaffected hand: Yes Goal Progress: Goal Met Goal:Bank Vault Attendant/Pinch strength at least 75% of unaffected hand: Yes Goal:No pain with affected hand use: Yes Goal Progress: Goal Met Goal:Full use of affected hand in daily activities including work: Yes Goal Progress: Goal Met Plan Plan: d/c with pt to continue use of left hand as tolerated D/C Information Discharge Comments: pt demo great gains in ROM and strength as well as a decreased sensitivity to utilize her left hand with ADls and IADLs. Pt is initiating a health and wellness program to cont. with increased healthy lifestyle. pt also has returned to work without difficulty. pt agrees to d.c . d/c sentence: If there are questions or concerns regarding this patient's occupational therapy, please fell free to call me at [phone]. Thank you for the referral of this patient. Sincerely, VALENTINA Garg CHT <Electronically signed by Tena MONTGOMERY CHT> 07/10/24 0749 CC: GILA Otoole; FRANCINE MEDEIROS ~ MK Signed [facility] Work Phone: [phone] Discharge summary [facility] Occupational Therapy Health[address] [place] [address] / REHABILITATION SERVICES DISCHARGE SUMMARY MR#: [id number] Acct: [id number] Name: BRITTNEY ALCOCER Rep #: [id number] 01 : 1975 49 From: Tena MONTGOMERY CHT Referring DrSandra: OUT OF TOWN DOCTOR Status: REG RCR Eval Date: Discharge Date: Discharge Summary D/C Summary: It has been my pleasure to treat BRITTNEY ALCOCER under orders from FRANCINE MEDEIROS, for the diagnosis of left RF displaced fx of distal phalanx for a total of 6 visit(s). Please see the following information for a summary of their discharge status. 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 pt has met OT goals and is d/c at this time. Goals Patient Goals: Regain Mobility, Decrease Pain, Improve Fine Motor Skills, Use Hand/Wrist/Arm Normally Again and Be More Independent in ADLS Goal:ROM equal to unaffected hand: Yes Goal Progress: Goal Met Goal:Bank Vault Attendant/Pinch strength at least 75% of unaffected hand: Yes Goal:No pain with affected hand use: Yes Goal Progress: Goal Met Goal:Full use of affected hand in daily activities including work: Yes Goal Progress: Goal Met Plan Plan: d/c with pt to continue use of left hand as tolerated D/C Information Discharge Comments: pt demo great gains in ROM and strength as well as a decreased sensitivity to utilize her left hand with ADls and IADLs. Pt is initiating a health and wellness program to cont. with increased healthy lifestyle. pt also has returned to work without difficulty. pt agrees to d.c . d/c sentence: If there are questions or concerns regarding this patient's occupational therapy, please fell free to call me at [phone]. Thank you for the referral of this patient. Sincerely, DAVID Garg/Omar, [facility] 07/10/24 0749 CC: GILA Otoole; FRANCINE MEDEIROS ~ MK Signed [facility]06-04-2025 NoteHNO ID: [id number] Author: ARJUN DANIELS APRN.GASOLINE LOCOMOTIVE CRANE OPERATOR Service: ? Author Type: Nurse Practitioner Type: Progress Notes Filed: 07/09/2024 17:49 Note Text: [facility] Subjective Brittney Alcocer is a 49 year old female. Patient presents with: Eye Problem: right eye redness and irritation x 2 days, right thumb swelling and pain x 3 days HPI Patient is a 49 year old female with a chronic history of dry eye. Presents with right eye irritation for the last two days. Denies any changes in vision or eye pain. Has tried to flush it with no relief she does wear glasses but no contacts. She also has thumb injury where she cut on proximal phalange without fat pat involvement. Her TDAP is up to date 2023 but she is worried its infected she has soaked in, no change in ROM, no redness going up her arm or swelling in the joint. Review of Systems Constitutional: Negative for fatigue and fever. Eyes: Positive for discharge, redness, itching and visual disturbance. Negative for photophobia and pain. Respiratory: Negative for cough and shortness of breath. Cardiovascular: Negative for chest pain. Skin: Positive for wound. Objective BP 110/72 Pulse 92 Temp 36.8 ?C (98.2 ?F) Resp 16 Wt 87.4 kg (192 lb 10.9 oz) LMP 08/19/2014 SpO2 96% BMI 40.27 kg/m? 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 SYNDROME Unspecified asthma(493.90) occasional inhaler Urinary calculus, unspecified 12/2005 Renal stones: left kidney per CT PAST SURGICAL HISTORY Procedure Laterality Date BLADDER SURGERY HX 08/02/2020 Cystoscopy and Sling CARPAL TUNNEL Left 10/12/2016 Dr. Conner DELIVERY ONLY 1994 , low cervical DELIVERY ONLY 07/26/2005 , low cervical CHOLECYSTECTOMY 1995 COLONOSCOPY 09/03/2017 D. Evangelista. NORMAL. Repeat in 10 years. DILATION AND CURETTAGE DXAND/THER NONOBSTETRIC 2015 Dilation AND curettage X 2 EGD 02/25/2010 Abnormal LES, esophagitis, antral ulcers, retained fluid in stomach, pos H Pylori EGD 04/14/2008 antral gastritis, neg h Pylori EGD W/O BRSH SPEC VARICIES INJ 2021 EGD W/O BRSH SPEC VARICIES INJ 06/29/2021 EGD W/O BRSH SPEC VARICIES INJ 08/28/2023 acute inflammation of the esophagus consistent with GERD LAPAROSCOPY SURG CHOLECYSTECTOMY PAST SURGICAL HISTORY OF 2005 REMOVAL OF FATTY TUMOR FROM R ARM PAST SURGICAL HISTORY OF 2006 Carpal Tunnel Surgery on right wrist PAST SURGICAL HISTORY OF 09/27/2012 left wrist carpal tunnel release PAST SURGICAL HISTORY OF Right 2017 partial nephrectomy VAGINAL HYSTERECTOMY 12/24/2019 WART REMOVAL WHI Right 09/03/2018 Removal of wart on third finger right hand - Dr. Herrera ALLERGIES Citalopram Hydrobromide, Morphine, Amoxicillin, Asa [Salicylates], Chocolate, Effexor [Venlafaxine Hcl], Naproxen, Penicillin G, Tape [Adhesive Tape-Silicones], Tomato, Tramadol, Trazodone, and Venlafaxine MEDICATIONS mirabegron (MYRBETRIQ) 50 mg [id number] 1 tablet by mouth every other day.Disp: 15 tabletRfl: 5 lansoprazole (PREVACID) 30 mg capsuleTake 1 capsule by mouth once daily.Disp: 90 capsuleRfl: 1 simvastatin (ZOCOR) 40 mg tabletTake 1 tablet by mouth daily at bedtime. At bedtimeDisp: 90 tabletRfl: 1 loratadine (CLARITIN) 10 mg tabletTake 1 tablet by mouth once daily.Disp: 28 tabletRfl: 11 gabapentin (NEURONTIN) 800 mg tabletTake 1 tablet by mouth four times daily for 180 days.Disp: 120 tabletRfl: 5 ondansetron orally disintegrating (ZOFRAN ODT) 8 mg disintegrating tabletTake 1 tablet by mouth every 8 hours as needed for nausea/vomiting.Disp: 60 tabletRfl: 1 rimegepant (NURTEC ODT) 75 mg disintegrating tabletTake 1 tablet at onset of headache/migraine. Only take 1 tablet as single dose in 24 hour period.Disp: 8 tabletRfl: 11 albuterol HFA (PROVENTIL HFA, VENTOLIN HFA) 90 mcg/actuation inhalerInhale 2 Puffs as instructed every 4 hours as needed for wheezing/shortness of breath.Disp: 1 EachRfl: 11 fremanezumab-vfrm subcutaneus auto-injector 225 mg/1.5 mL (AJOVY)Inject 1.5 mL subcuta (more content not included)...[facility]05-10-2025 Note SARS-COV-2 (AGENT OF COVID-19) RNA: Not detected INFLUENZA A RNA: Not detected INFLUENZA B RNA: Not detected RESPIRATORY SYNCYTIAL VIRUS (RSV) RNA: Not detectedCleveland Clinic Union HospitalComment on above:Performed By: #### [id number] ####[facility] LABCLIA [id number] [address] OF [id number] NoteO ID: [id number] Author: BANG MANDUJANO MD Service: ? Author Type: Physician Type: Progress Notes Filed: 06/14/2024 14:47 Note Text: [facility] Subjective Brittney Alcocer is a 49 year old female. Patient presents with: Nausea: Nausea, dizzy and lightheaded and runny nose x 1 day Patient presents with nasal congestion and drainage which began 2 days ago. Today she has been feeling dizzy, nauseous, and fatigued. Her is currently at home with runny nose and chills. She denies headache, fever, chills, cough, or eye discharge. She takes daily allergy medicine and use Zofran this morning. Review of Systems Objective BP 110/78 Pulse 85 Temp 36.3 ?C (97.3 ?F) (Tympanic) Resp 16 Wt 88.1 kg (194 lb 3.6 oz) LMP 08/19/2014 SpO2 97% BMI 40.59 kg/m? Physical Exam Constitutional: General: She is not in acute distress. HENT: Right Ear: Tympanic membrane and ear canal normal. Left Ear: Tympanic membrane and ear canal normal. Nose: Congestion present. Right Sinus: No maxillary sinus tenderness or frontal sinus tenderness. Left Sinus: No maxillary sinus tenderness or frontal sinus tenderness. Mouth/Throat: Mouth: Mucous membranes are moist. Pharynx: No oropharyngeal exudate or posterior oropharyngeal erythema. Eyes: Extraocular Movements: Extraocular movements intact. Conjunctiva/sclera: Conjunctivae normal. Pupils: Pupils are equal, round, and reactive to light. Cardiovascular: Rate and Rhythm: Normal rate and regular rhythm. Heart sounds: No murmur heard. Pulmonary: Effort: No respiratory distress. Breath sounds: No wheezing, rhonchi or rales. Musculoskeletal: Cervical back: Neck supple. Lymphadenopathy: Cervical: No cervical adenopathy. Neurological: Mental Status: She is alert. {ASSESSMENT/PLAN: 1. Acute upper respiratory infection - ICD9: 465.9, ICD10: J06.9 (primary diagnosis) 2. Dizziness - ICD9: 780.4, ICD10: R42 - suspect viral URI - Supportive care treatment with rest, cold medicine, and analgesia. - COVID AND INFLUENZA A/B AND RSV PCR, ROUTINE - Work note provided today out of concern for dizziness while driving. Bang Mandujano MD Differential Diagnoses - Viral URI is more likely for the following reason(s): Typical symptoms and exposure ProceduresCleveland Clinic Union Hospital05-07-2025 NoteHNO ID: [id number] Author: MARISOL JIMENEZ APRN.GASOLINE LOCOMOTIVE CRANE OPERATOR Service: ? Author Type: Nurse Practitioner Type: Progress Notes Filed: 06/11/2024 11:04 Note Text: [facility] Follow-up Visit Current Preventive: Botox Ajovy Current Abortive: Nurtec Headache Infusions 06/09/2024- 06/11/2024 Therapy Plan: zofran magnesium robaxin valproate Headache Infusion 03/11/2024-03/13/2024 Impression: Intractable chronic migraine without aura and without status migrainosus (primary encounter diagnosis) Brittney Alcocer is a 49-year-old female with a history of chronic migraine, stroke, KS,chronic pain syndrome, TMJD, concussion, peptic ulcer, hypothyroid, asthma, pelvic pain, renal stones and insomnia, presenting for follow-up and management of chronic migraines Plan: Follow-Up Onabotulinum Toxin A (BotoxTM) for Migraine Indication: Chronic Intractable Migraine Referral Expiration: 12/10/2024 Prior to the initiation of the FIRST treatment with Onabotulinum Toxin A, the patient reported the following average headache frequency over the past 3 MONTHS: Number of moderate-severe migraine days/month: 30 (daily) Migraine severity: 10/10 After treatment with Onabotulinum Toxin A: Number of moderate-severe migraine days/month: 15 Number of mild migraine days/month: 15 Number of headache free days/month: 0 (0 headache-free hours) Patient reduction in moderate-severe migraine days: Yes - less of the sever headaches Individual has obtained clinical benefit deemed significant by individual or prescriber (Y/N): Yes Patient's quality of life and ability to perform ADLs has improved (Y/N): Yes Side effects: none Wearing off: Yes - 9 weeks after treatment The patient has been assessed for disorders which could contribute to breathing or swallowing difficulty, and there is no contraindication with PREEMPT Botox. There is no documented allergic reaction/hypersensitivity to any botulinum toxin and there is no active infection at proposed injection site. HEADACHE SCORES: 11/14/2023 03/05/2024 06/06/2024 Headache Questions ER visits since last office visit: 0 0 0 Hospital stays since last office visit 0 0 Limited ADLs in the last month: 20 10 2 Days missed from work or school in the last month: 10 5 5 Days headache pain free in the last month: 15 2 9 Days per month with ALL of the following symptoms - decreased productivity, light sensitivity and nausea: 10 5 20 Initial improvement of headache after botox injection at last visit: Very much improved Very much improved Much improved PRN medication usage in the last month: 0 20 Patient impression of improvement since last visit: Much improved Very much improved Much improved 11/14/2023 03/05/2024 06/06/2024 HIT-6 HIT-6 64 (Severe impact) 62 (Severe impact) 60 (Severe impact) 11/14/2023 03/05/2024 06/06/2024 DAVID - 2/7 SCORES DAVID-2 Score 0 0 2 2 2 11/14/2023 03/05/2024 06/06/2024 Migraine Specific QOL - Higher scores indicate better HRQL Role Function-Restrictive Transformed Score (range: 0-100) 40 48.57 60 Role Function-Preventive Transformed Score (range: 0-100) 40 65 50 Emotional Function Transformed Score (range: 0-100) 40 13.33 60 11/14/2023 03/05/2024 06/06/2024 PHQ-9 Score 6 5 3 3 3 BP 113/61 (BP Position: Sitting) Pulse 80 Wt 86.2 kg (190 lb) LMP 08/19/2014 SpO2 97% BMI 39.71 kg/m? BP 113/61 (BP Position: Sitting) Pulse 80 Wt 86.2 kg (190 lb) LMP 08/19/2014 SpO2 97% BMI 39.71 kg/m? Patient name: Brittney Alcocer : 1975 ALLERGIES Allergen Reactions Citalopram Hydrobro* Anaphylaxis TACHYCARDIA Morphine GI Upset Amoxicillin GI Upset, Other: See Comments Makes me worse Asa [Salicylates] Hives Chocolate Effexor [Venlafaxin* Vomiting Naproxen Intolerance Depression Penicillin G GI Upset Tape [Adhesive Tape* Other: See Comments Rash Tomato Intolerance If cooked cant tolerate them Tramadol GI Upset Trazodone Mental Status Change Causes hallucinations Venlafaxine Unknown UNIVERSAL PROTOCOL / SAFETY CHECKLIST Procedure: Onabotulinum toxin A for migraine Informed Consent Consent Obtained: Written [place] Protocol A moment to CARE was completed SIGN IN Personnel directly involved with the procedure wore the appropriate PPE Special Equipment: N/A Patient/Surrogate Stated/Verified: Patient name, Date of , Relevant allergies and Intended procedure TIME OUT No relevant labs, photos, and/or imaging studies were applicable for review. Consent documented and matches the intended procedure No correct side/site applicable for marking and visibility. No medications required for procedure. No fire risk assessment and interventions applicable. No implant(s) inserted. SIGN OUT No specimen collected. Written Consent Obtained: Written LOT #: [id number] Expiration Date: Month: 4 Year: 2026 Injection Sites Left (Units) Left (Sites) Right (Units) Right (Si (more content not included)...[facility]05-07-2025 NoteHNO ID: [id number] Author: LEYLA LYON RN Service: ? Author Type: Registered Nurse Type: Progress Notes Filed: 06/11/2024 10:39 Note Text: 1011: PRN zofran given for moderate nausea. 1030: Pts infusions complete. Pt tolerated infusion well. Pt rated headache 3/10. Pt stated mild nausea and mild dizziness. Pt discharged from treatment room.[facility]05-07-2025 NoteHNO ID: [id number] Author: YENNY SOLORIO RN Service: ? Author Type: Registered Nurse Type: Progress Notes Filed: 06/11/2024 10:39 Note Text: Star arrived to the infusion suite rating her headache pain 5/10 with mild nausea and mild dizziness. Senior Java Ui Developer confirmed. Patient requested prn zofran for nausea and prn benadryl for sedation.[facility]05-06-2025 NoteHNO ID: [id number] Author: ELYLA LYON RN Service: ? Author Type: Registered Nurse Type: Progress Notes Filed: 06/10/2024 09:47 Note Text: 0723: Patient in for second day of IV infusions. Patient rated headache 6/10. Patient stated mild nausea and denied dizziness. Patient educated on medications to be administered. Patient verbalized understanding and agreed to proceed with infusions. 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 She would like PRN benadryl for sedation and PRN Zofran given for nausea. 0940: Pts infusions complete. Pt tolerated infusion well. Pt rated headache 3/10. Pt stated moderate nausea and denied dizziness. Additional dose of PRN zofran given. Pt discharged from treatment room via wheelchair and taken downstairs to her ride in the front roundabout.[facility] 06-09-2024 NoteHNO ID: [id number] Author: SANDEEP REYES APRN.GASOLINE LOCOMOTIVE CRANE OPERATOR Service: ? Author Type: Nurse Practitioner Type: Progress Notes Filed: 06/09/2024 08:09 Note Text: [facility] Infusion [facility] Note Subjective: Brittney Alcocer is a 49 year old year old female presenting for day 1 of infusions. Therapy Plan: zofran magnesium robaxin valproate New health conditions since orders were placed: No Cardiovascular risk factors: Myocardial Infarction and Stroke Triptan dose in the last 24 hours: No Last muscle relaxer dose: No Last NSAID dose: No Response to infusions: Patient tolerating infusion without side effects. Current preventive treatment: botox, gabapentin 800 mg QID, ajovy Current abortive treatment: nurtec, marijuana Labs: Latest Ref Rng AND Units 12/28/2023 CBC WBC 3.70 - 11.00 k/uL 6.99 RBC 3.90 - 5.20 m/uL 4.72 Hemoglobin 11.5 - 15.5 g/dL 15.1 Hematocrit 36.0 - 46.0 % 46.1 MCV 80.0 - 100.0 fL 97.7 MCH 26.0 - 34.0 pg 32.0 MCHC 30.5 - 36.0 g/dL 32.8 RDW-CV 11.5 - 15.0 % 12.9 Platelet Count 150 - 400 k/uL 243 MPV 9.0 - 12.7 fL 10.2 Latest Ref Rng AND Units 12/28/2023 CMP Sodium 136 - 144 mmol/L 142 Potassium 3.7 - 5.1 mmol/L 4.1 Chloride 98 - 107 mmol/L 106 CO2 22 - 30 mmol/L 27 Glucose 74 - 99 mg/dL 91 BUN 7 - 21 mg/dL 13 Creatinine 0.58 - 0.96 mg/dL 0.82 EGFR >=60 mL/min/1.73m? 88 Protein, Total 6.3 - 8.0 g/dL 7.5 Albumin 3.9 - 4.9 g/dL 4.5 Calcium 8.5 - 10.2 mg/dL 9.7 Bilirubin, Total 0.2 - 1.3 mg/dL 0.4 AST 13 - 35 U/L 17 ALT 7 - 38 U/L 16 Alkaline Phosphatase 34 - 123 U/L 116 ALLERGIES Allergen Reactions Citalopram Hydrobro* Anaphylaxis TACHYCARDIA Morphine GI Upset Amoxicillin GI Upset, Other: See Comments Makes me worse Asa [Salicylates] Hives Chocolate Effexor [Venlafaxin* Vomiting Naproxen Intolerance Depression Penicillin G GI Upset Tape [Adhesive Tape* Other: See Comments Rash Tomato Intolerance If cooked cant tolerate them Tramadol GI Upset Trazodone Mental Status Change Causes hallucinations Venlafaxine Unknown Current Medications: loratadine (CLARITIN) 10 mg tabletTake 1 tablet by mouth once daily.Disp: 28 tabletRfl: 11 lansoprazole (PREVACID) 30 mg capsuleTake 1 capsule by mouth two times a day.Disp: 60 capsuleRfl: 0 gabapentin (NEURONTIN) 800 mg tabletTake 1 tablet by mouth four times daily for 180 days.Disp: 120 tabletRfl: 5 ondansetron orally disintegrating (ZOFRAN ODT) 8 mg disintegrating tabletTake 1 tablet by mouth every 8 hours as needed for nausea/vomiting.Disp: 60 tabletRfl: 1 rimegepant (NURTEC ODT) 75 mg disintegrating tabletTake 1 tablet at onset of headache/migraine. Only take 1 tablet as single dose in 24 hour period.Disp: 8 tabletRfl: 11 albuterol HFA (PROVENTIL HFA, VENTOLIN HFA) 90 mcg/actuation inhalerInhale 2 Puffs as instructed every 4 hours as needed for wheezing/shortness of breath.Disp: 1 EachRfl: 11 mirabegron (MYRBETRIQ) 50 mg [id number] 1 tablet by mouth once daily.Disp: 30 tabletRfl: 5 fremanezumab-vfrm subcutaneus auto-injector 225 mg/1.5 mL (AJOVY)Inject 1.5 mL subcutaneously once every month. Do not shake.Disp: 1.5 mLRfl: 11 simvastatin (ZOCOR) 20 mg tabletTake 2 tablets by mouth daily at bedtime.Disp: 180 tabletRfl: 3 MEDICATION, NON-DATABASEMarijuana for migrainesDisp: Rfl: Review of Systems: Review of system: Patient reports no change from the prior visit. Objective: VS: see infusion note for vital signs General: well appearing, in no acute distress, alert Neurological: Pain Behaviors: no pain behaviors observed Mental Status: Alert and oriented to person, place and time. Affect is normal and appropriate. Speech is spontaneous and fluent without dysarthria, normal in rate, volume and articulation, and clear, coherent, and relevant. Short and snf memory, cognition and general fund of knowledge are good. Attention span and concentration are excellent. Cranial Nerves: VII-face is symmetric without evidence of weakness. VIII-hearing intact. Assessment: (G43.901) Status migrainosus (primary encounter diagnosis) Plan: Brittney Alcocer is a 49 year old year old female, with a history of chronic migraine, stroke, KS,chronic pain syndrome, TMJD, concussion, peptic ulcer, hypothyroid, asthma, pelvic pain, renal stones and insomnia following up today for day 1 of infusions. Follow up plan: Hold Triptans on infusion days or within 24 hours of infusion. Hold Muscle relaxers on infusion days or within 24 hours of infusion. Level of service: Est level 2 (10-19 min). Time spent 10 min on the day of service, which included preparing to see the patient, [id number] patient care, completing clinical documentation, and obtaining and/or reviewing separately obtained history. Sandeep Reyes APRN.GASOLINE LOCOMOTIVE CRANE OPERATOR Headache Section [facility] June 09[facility]05-05-2025 NoteHNO ID: [id number] Author: YENNY SOLORIO RN Service: ? Author Type: Registered Nurse Type: Progress Notes Filed: 06/09/2024 10:12 Note Text: Petar arrived to the infusion suite rating headache pain 8/10 with mild nausea and no dizziness. Petar verbalized that she recently took Zofran at home (5am this morning). LIP notified and ok with one prn IV Zofran administration during infusion. She was educated on medications to be administered per therapy plan and verbally agreed to proceed with infusions. PRN zofran given or nausea. PRN benadryl given for sleep. Senior Java Ui Developer confirmed. She rated her pain 6/10 with moderate nausea and no dizziness at the end of the infusion. Discharged to commercial front load driver.[facility]05-02-2025 NoteHNO ID: [id number] Author: QUEENIE SPARKS APRN.CNP Service: ? Author Type: Nurse Practitioner Type: Progress Notes Filed: 06/06/2024 09:26 Note Text: Headache Center - Virtual Visit Last Visit: 03/05/2024, Queenie Sparks APRN.GASOLINE LOCOMOTIVE CRANE OPERATOR Accompanied by: Self This visit was conducted as a virtual visit, with patient's permission, via zoom. It required patient-provider interaction for the medical decision making as documented below. Patient stated name and Patient location: [place] I have communicated my name and active licensure. The patient's identity and physical location were verified at the time of this visit. Either the patient or their legal corporate representative has been informed of the risks and benefits of -- and alternatives to -- treatment through a remote evaluation and consents to proceed with the evaluation remotely. Recording using [employer] ([employer]) software for draft documentation of the visit was discussed with the patient/authorized corporate representative; all questions welcomed and answered. Patient/authorized corporate representative agreed to proceed Primary Problem List: ACTIVE PROBLEM LIST Unqualified Visual Loss, One Eye Carpal Tunnel Syndrome, Left Right Knee Pain Diverticulosis of Intestine Without Bleeding Amenorrhea, Unspecified Leiomyoma of Uterus, Unspecified Major Depressive Disorder, Single Episode, Unspecified Pain in Right Shoulder Unspecified Asthma, Uncomplicated (Hcc) Gastro-Esophageal Reflux Disease Without Esophagitis Anxiety Left Ovarian Cyst History of Drug Abuse ([facility]) History of Migraine Ankylosis of Sacroiliac Joint Kidney Stone History of Seizure History of Renal Cell Cancer Renal Neoplasm Occipital Neuralgia of Right Side Eustachian Tube Dysfunction, Bilateral Lumbar Radiculopathy Leg Weakness, Bilateral Chronic Bilateral Low Back Pain With Bilateral Sciatica Chronic Right-Sided Thoracic Back Pain Paresthesia of Bilateral Legs Osteoarthritis of Spine With Radiculopathy, Lumbar Region Obesity, Class III, BMI >= 40 (morbid obesity) E66.01 Migraine With Aura, Not Intractable, Without Status Migrainosus Intervertebral Disc Disorder With Radiculopathy of Lumbar Region Jaw Pain Low Back Pain With Left-Sided Sciatica Low Back Pain With Right-Sided Sciatica Other Intervertebral Disc Degeneration, Thoracic Region Pleurodynia Syncope and Collapse Chronic Migraine Without Aura, Intractable, Without Status Migrainosus Intractable Chronic Post-Traumatic Headache Chronic Pain Syndrome Obesity, Class II, Bmi 35-39.9 Auditory Hallucination Hypertriglyceridemia Hyperlipidemia Restless Leg Obstructive Sleep Apnea Syndrome Viral Wart On Finger Pmb (Postmenopausal Bleeding) Environmental Allergies Hyperopia of Both Eyes Combined Forms of Age-Related Cataract of Both Eyes Migraine Without Aura, Not Refractory Subjective Visual Disturbance of Both Eyes Monocular Diplopia of Left Eye Punctate Keratitis of Both Eyes Chronic Pain of Right Knee Bilateral Temporomandibular Joint Pain Status Migrainosus Tobacco Use Ganglion Cyst Marijuana Use Closed Head Injury Mild Concussion Trace Mitral Valve Regurgitation Dizziness Fatigue Migraine Without Aura, With Intractable Migraine, So Stated, With Status Migrainosus Cerebrovascular Accident (Cva) (Hcc) Intractable Chronic Migraine Without Aura and Without Status Migrainosus Prediabetes Other Acute Postoperative Pain Incomplete Bladder Emptying Chief Complaint: Headache Impression and Plan from last visit: No diagnosis found. Brittney Alcocer is a 49 year old year old female, with a history of chronic migraine, stroke, [place],chronic pain syndrome, TMJD, concussion, peptic ulcer, hypothyroid, asthma, pelvic pain, renal stones and insomnia who presents virtually with need for infusion therapy for chronic migraines. Botox and infusion therapy tends to work well for her. Has only used Ajovy for 2 months and has not noticed notable difference yet. Nurtec has not been as effective this last month likely because botox wore off. PLAN: Therapy plan placed: reviewed Home meds to hold (triptan/muscle relaxer/OTC/NSAIDs): NA Interval Headache Hx: Chronic Migraines: - Experiencing approximately 20 moderate to severe migraines per month the last month of botox. - Migraines last about 20 minutes; describes the pain as feeling like I'm dying. - Recent severe episodes required pulling over while driving and going home from work. - Uses marijuana PRN for severe migraines; used it three times recently. - Nurtec provides relief but causes nausea, requiring concurrent use of Zofran. - Gabapentin taken every 4 hours; reports it wears off after 3 hours, with pain returning more intensely. - Ajovy helps but has not been taken this month due to upcoming infusions and didn't want an interaction. - Botox provides relief for 2 months, with migraines returning in (more content not included)...[facility]04-29-2025 NotePatient Outreach (AGFAMPLE) BRITTNEY ALCOCER ([id number]) 1975 F NFR Date Time Provider Department 06/03/24 CRISTOBAL OTOOLE During your visit today, we recorded the following information about you: Allergies As of Date: 06/03/2024 Noted Allergy Reaction CITALOPRAM HYDROBROMIDE 10/27/2004 10 - Anaphylaxis Comments: TACHYCARDIA MORPHINE 01/26/2005 8 - GI Upset AMOXICILLIN 10/24/2004 8 - GI Upset 14 - Other: See Comments Comments: Makes me worse ASA (SALICYLATES) 10/27/2004 4 - Hives CHOCOLATE 10/27/2004 EFFEXOR (VENLAFAXINE HCL) 10/27/2004 11 - Vomiting NAPROXEN 02/16/2006 5 - Intolerance Comments: Depression PENICILLIN G 09/08/2021 8 - GI Upset TAPE (ADHESIVE TAPE-SILICONES) 01/27/2021 14 - Other: See Comments Comments: Rash TOMATO 12/21/2020 5 - Intolerance Comments: If cooked cant tolerate them TRAMADOL 10/24/2004 8 - GI Upset TRAZODONE 08/28/2017 1 - Mental Status Change Comments: Causes hallucinations VENLAFAXINE 12/13/2015 16 - Unknown Date Reviewed: 03/13/2024 Reviewed by: Wm Barr RN - Fully Assessed Visit Diagnosis:Encounter for screening mammogram for breast cancer [Z12.31] Order(s):FILIBERTO SCREENING Henrik ANTOINE [[id number]] Order #: [id number] FUTURE Prescriptions as of 07/04/2024 - mirabegron (MYRBETRIQ) 50 mg Tb24 Take 1 tablet by mouth every other day. - lansoprazole (PREVACID) 30 mg capsule Take 1 capsule by mouth once daily. - simvastatin (ZOCOR) 40 mg tablet Take 1 tablet by mouth daily at bedtime. At bedtime - loratadine (CLARITIN) 10 mg tablet Take 1 tablet by mouth once daily. - gabapentin (NEURONTIN) 800 mg tablet Take 1 tablet by mouth four times daily for 180 days. - ondansetron orally disintegrating (ZOFRAN ODT) 8 mg disintegrating tablet Take 1 tablet by mouth every 8 hours as needed for nausea/vomiting. - rimegepant (NURTEC ODT) 75 mg disintegrating tablet Take 1 tablet at onset of headache/migraine. Only take 1 tablet as single dose in 24 hour period. - albuterol HFA (PROVENTIL HFA, VENTOLIN HFA) 90 mcg/actuation inhaler Inhale 2 Puffs as instructed every 4 hours as needed for wheezing/shortness of breath. - fremanezumab-vfrm subcutaneus auto-injector 225 mg/1.5 mL (AJOVY) Inject 1.5 mL subcutaneously once every month. Do not shake. - MEDICATION, NON-DATABASE Marijuana for migraines Facility-Administered Medications as of 07/04/2024 - onabotulinum toxin type A 200 Units injection (BOTOX) Problem List As Of Date 06/03/2024 Noted Resolved Supervision of other normal [Z34.80] 01/26/2005 01/06/2016 CELLULITIS FINGER,PARONYCHIA/ONYCHIA [L03.019] 12/12/2005 01/06/2016 Viral warts, unspecified [B07.9] 12/12/2005 01/06/2016 VISUAL LOSS, ONE EYE NOS [H54.60] 09/17/2006 Pain in joint, lower leg [M25.569] 09/08/2011 01/06/2016 Pain in joint, pelvic region and thigh [M25.559]09/08/2011 01/06/2016 Carpal tunnel syndrome, left [G56.02] 05/09/2012 Right knee pain [M25.561] 06/30/2014 Diverticulosis of intestine without bleeding [K*11/10/2015 Amenorrhea, unspecified [N91.2] 07/20/2015 Leiomyoma of uterus, unspecified [D25.9] 10/07/2015 Major depressive disorder, single episode, unsp*06/15/2015 Pain in right shoulder [M25.511] 10/12/2015 Unspecified asthma, uncomplicated [J45.909] 06/15/2015 Gastro-esophageal reflux disease without esopha*12/13/2015 Anxiety [F41.9] 12/13/2015 Left ovarian cyst [N83.202] 12/13/2015 History of drug abuse [F19.11] 12/13/2015 History of migraine [Z86.69] 12/13/2015 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] 12/13/2015 Kidney stone [N20.0] 12/13/2015 History of seizure [Z87.898] 12/13/2015 History of renal cell cancer [Z85.528] 01/06/2016 Renal neoplasm [D49.519] 04/27/2016 Occipital neuralgia of right side [M54.81] 08/15/2016 Eustachian tube dysfunction, bilateral [H69.93] 10/11/2016 Lumbar radiculopathy [M54.16] 10/11/2016 Leg weakness, bilateral [R29.898] 10/11/2016 Chronic bilateral low back pain with bilateral *10/11/2016 Chronic right-sided thoracic back pain [M54.6, *10/11/2016 Paresthesia of bilateral legs [R20.2] 10/11/2016 Osteoarthritis of spine with radiculopathy, lum*12/20/2016 Obesity, Class III, BMI >= 40 (morbid obesity) *01/12/2017 Migraine with aura, not intractable, without st*01/12/2017 Intervertebral disc disorder with radiculopathy*03/23/2017 Jaw pain [R68.84] 03/23/2017 Low back pain with left-sided sciatica [M54.42] 03/23/2017 Low back pain with right-sided sciatica [M54.41]03/23/2017 Other intervertebral disc degeneration, thoraci*03/23/2017 Pleurodynia [R07.81] 03/23/2017 Syncope and collapse [R55] 03/23/2017 Chronic migraine without aura, intractable, wit*04/10/2017 Intractable chronic post-traumatic headache [G4*04/10/2017 Chronic pain syndrome [G89.4] 04/10/2017 Obesity, Class II, BMI 35-39.9 [E66.812] 12/19/2017 Auditory hallucination [R44. (more content not included)...[facility]04-17-2025 History of Present illness Narrative* Linda Randle PT - 05/22/2024 12:18 PM EDT Images from the original note were not included. [facility] AT [address] [id number] Discharge Notification Patient Name: Petar Alcocer : 1975 Today's Date: 05/22/2024 Patient has not been seen since 03/10/24. The patient will be discharged at this time due to inactivity. The patient has not been seen for outpatient therapy in 30+ days and has not made contact to reschedule. The patient will require new referral/evaluation to resume therapy in the future. The patient will be discharged at this time. Please refer to initial evaluation or re-assessment for last goals/objective measures assessment and progress report. Thank you for this referral. For any questions on this patient s course of therapy, please call theclinic for clarification. Linda Randle PT documented in this [facility]04-03-2025 History of Present illness Narrative* Francine Medeiros PA-C - 05/08/2024 8:00 AM EDT Images from the original note were not included. Chief Complaint Patient presents with Post-op DOS 04/01/24/ Closed reduction percutaneous pinning left ring finger distal phalanx fracture Subjective: Brittney is approximately 5 week(s) s/p closed reduction percutaneous pinning of Left ring finger distal phalanx fracture. Pain is mild. She is taking tylenol for pain relief. She still admits to numbness and tightness of the left ring finger and intermittently feels like it is going to burst . The patient has been compliant with non-weight bearing restrictions in a short arm cast . Patient denies fevers and chills. Patient presents to the office today for follow up after closed reduction and percutaneous pinning of her left ring finger distal phalanx fracture. Only admits to mild pain at this point, taking OTC Tylenol PRN for pain. Still admits to numbness of the left ring finger. She denies fevers, chills, or other signs of infection. Cannot speak to drainage from her K-wire sites secondary to cast placement. She has no other concerns today. Objective: There were no vitals taken for this visit. Ortho Exam Left Upper Extremity Focused Exam of the Left Upper Extremity Skin: intact without any evidence of breakdown. No gross drainage from K-wire sites, surrounding erythema, fluctuance, induration, or other evidence of infection. See clinical images below. Clinical Images: Edema: mild edema surrounding the distal phalanx - 4th digit Palpation: tender to palpation over the distal phalanx - 4th digit ROM: LEFT ring finger MCP (nl 0-45 H/90 ) PIP (nl 0 /100 ) DIP (nl 0 -80 ) Tip to Palm EXTENSION 0 0 0 FLEXION 45 65 25 4cm *(Passive values entered only if different than active; otherwise = AROM) Remaining fingers flex 3-4cm from palm. Active wrist range of motion: full flexion/ full extension.Pronation 80 / Supination 80 . Malrotation of Digit: No Malalignment: of Digit: No Normal Tenodesis cascade No scissoring Motor: Intact in the hand - able to fire AIN, PIN, and Ulnar nerves Sensation: to light touch is normal in the median, ulnar, and radial nerve distributions Perfusion: Brisk capillary refill in all 5 digits XRay: LEFT Hand 3V interpreted by myself in the office today separate from radiology show redemonstrate 2 K-wires in similar alignment when compared to previous imaging on 04/10/2024. Some bony callus formation appreciated, although healing remains incomplete at this time. Minimal osteopenic changes noted about the ring finger distal phalanx likely secondary to immobilization and disuse. No other acute osseous or soft tissue abnormalities appreciated. Assessment 1. Closed displaced fracture of distal phalanx of left ring finger with routine healing, subsequentencounter XR hand 3+ views left Plan Star is recovering relatively well. She still admits to numbness about the left ring finger. Admitscompliance to her cast and NWB restrictions. Percutaneous K- wires were intact upon presentation today. Percutaneous K-wire sites were cleansed with alcohol swabs and the pins were removed in the office today without difficulty. Minimal blood was expressed from pin sites after removal which quickly dissipated. No purulent drainage or other evidence of infection at the pin sites. Patient was instructed to call the office should she begin experiencing purulent drainage from the K-wire sites, fevers, chills, surrounding erythema, or other signs of infection. I would like Brittney to transition to a left ring finger Stax splint today. She is to wear the splint at all times, only coming out for personal hygiene purposes and she is to remain nonweightbearing until her next visit in 4 weeks. Sheasked about dish duty at work, instructed her after the pin sites completely close in approximately2 weeks, she can do dishes as long as she remains NWB about the left upper extremity. Work note wasprovided stating she is to remain light duty with the following restrictions: wearing the splint atall times and not doing dishes until 05/22/2024. She should also remain NWB about the left upper extremity. Finger range of motion was encouraged within the confines of the splint. No formal therapy is needed at this time. Expected recovery course was discussed with the patient. All questions were answered to the best of my ability. She verbalized understanding and is comfortable with the plan. Weight Bearing: Non Weight Bearing Rehabilitation: NO formal rehabilitation required at this point. I plan to see Brittney back in 4 weeks to see how she is doing. Brittney knows to call the officewith any questions or concerns in the interim. Future Imaging: LEFT Hand 3V OOS Francine Medeiros PA-C to Dr. Trent Alas Orthopaedic Surgery Hand and Upper Extremity (Please note that portions of this note may have been completed with a voice recognition program. Efforts were made to edit the dictations but occasionally words are mis-transcribed.) Cosigned by Trent Alas MD at 05/08/2024 3:39 PM EDT Associated attestation - Trent Alas MD - 05/08/2024 3:39 PM EDT Patient was seen and evaluated in conjunction with Diana Medeiros PA-C. Agree with above assessment and plan. Trent Alas MD Orthopedic Hand and Upper Extremity Surgery [facility] Department of Orthopaedics documented in this [facility]03-13-2025 Evaluation note* Diagnosis Onset Date Resolution Status Admit Date Cervical radiculopathy acute [facility] 2024 8:43am [facility] Work Phone: [phone]) 793-115503-07-2025 History of Present illness Narrative* Francine Medeiros PA-C - 04/11/2024 2:45 PM EST Images from the original note were not included. [facility] [place] [address] [place] [address] [place] [id number] Dept: [phone] Dept 04/11/24 Chief Complaint Patient presents with Follow-up Left distal phalanx ring finger fx cast check Subjective: Brittney is here today for a cast change due it subjectively being too tight. Brittney is approximately 1 day s/p ulnar gutter cast placement. She is 10 days s/p closed reduction percutaneous pin fixation of left ring finger after a closed displaced left ring finger distal phalanx fracture. Pain is minimal. Pt is currently taking no medications for pain. Patient presents the office today for a cast change. I applied an ulnar gutter- based mitten cast on04/10/2024. Yesterday I encouraged the patient to call the office should she begin experiencing numbness and tingling of her fingers that was new in nature, and she messaged in early this morning stating she felt increased numbness and tingling in the left ring finger, as well as numbness and tingling in her small finger. Denies drainage from her pin sites to her knowledge, fevers, chills, or othersigns of infection. She has no other concerns today. Objective: Ht 4' 10 (1.473 m) Wt 180 lb (81.6 kg) BMI 37.62 kg/m Ortho Exam Focused Exam of the LEFT Upper Extremity Skin: intact without any evidence of breakdown. Cast was removed and affected joint and skin inspected. Skin: clean/dry/intact, unremarkable. Incision(s): 2 percutaneous [address] wires in place. No evidence of drainage, surrounding erythema, increased edema, or other signs of infection noted about K wire sites. Local swelling is mild. Sensation intact to light touch in all fingers. ROM: full functional ROM of the shoulder, elbow, wrist, and hand. Left ring finger range of motion:Able to demonstrate flexion at MCP and PIP joint. Full finger extension. Stability: no evidence of joint instabilities Motor: Intact in the hand - able to fire AIN, PIN, and Ulnar nerves Perfusion: Brisk capillary refill in all 5 digits Examination of the contralateral upper extremity reveals skin to be warm, dry, and intact. There isno evidence of edema. She has full range of motion without apparent instabilities. There is no apparent tenderness to palpation. Excellent strength without deficit. Normal coordination and sensation throughout her upper extremity. Easily palpable radial pulse. Assessment 1. Closed displaced fracture of distal phalanx of left ring finger with routine healing, subsequentencounter Plan New ulnar gutter-based mitten cast applied to left upper extremity. Patient was educated on proper use and application, how to keep clean and dry, and had no further questions. She will follow-up on 05/08/2024 as previously scheduled. Patient was instructed to call the office with any concerns or questions regarding casting. Applied by: TASHI Medeiros PA-C to Dr. Trent Alas Orthopaedic Surgery Hand and Upper Extremity F/u as previously scheduled with managing provider. No follow-ups on file. Cosigned by Trent Alas MD at 04/15/2024 10:27 PM EDT Associated attestation - Trent Alas MD - 04/15/2024 10:27 PM EDT Patient was seen and evaluated in conjunction with Diana Medeiros PA-C. Agree with above assessment and plan. Trent Alas MD Orthopedic Hand and Upper Extremity Surgery [facility] Department of Orthopaedics documented in this [facility]03-06-2025 Instructions* Patient Instructions* Francine Medeiros PA-C - 04/10/2024 9:00 AM EST CAST CARE INSTRUCTIONS The Do NOTS for cast care DO NOT GET YOUR CAST WET! Do not pull the padding out from inside your cast. Do not place anything inside the cast, even for itchy areas. Sticking items inside the cast can cause problems with the skin and lead to infection. Do not use the cast as a weapon The DOs for cast care Swelling of the limb can occur for several days or 1-2 weeks after the application of a cast, soKeep the leg or arm ELEVATED above the heart as much as possible. Keep the leg or arm ELEVATED 20 minutes every hour you are awake Ice helps keep the swelling down. Apply a bag of ice (or a bag of frozen vegetables) covered with athin towel to the cast for 20 minutes every two hours while awake. Do not apply ice directly to theskin. Keep the cast clean and dry Do use a hairdryer on cool for itching relief, NEVER warm air. Move the fingers or toes on a daily basis When to be concerned The cast got wet The cast is slipping off There is increased swelling above or below the cast The cast feels very tight, your fingers or toes are numb in the cast You smell a bad odor coming from the cast Fingers or toes are turning blue/rowell or having tingling/numbness Please call our office with any questions or concerns Sunday through Sunday 8am to 4:30pm [phone] After hours please call or go the ER documented in this [facility]02-28-2025 NoteHNO ID: [id number] Author: CEASAR DUNCAN MA Service: ? Author Type: Tile Molder Type: Progress Notes Filed: 04/04/2024 13:05 Note Text: ED Follow Up: Patient discharged from [facility] ED on 04/03/2024. 1. How are you feeling since your ED visit? OK Have your symptoms improved or resolved? Yes 2. Were you prescribed any medications while in the ED or advised to stop any medication? No - If yes, were you able to fill your prescriptions? Not applicable -if stopped medication, what was the medication? na 3. Were you advised to schedule a follow up appointment with your provider? Yes - If no, Do you feel like you need an appointment scheduled? No - If yes, Do you need this scheduled now or has this already been scheduled? No 4. Were you able to contact the office or christian education director provider prior to your ED visit? Not applicable 5. Is there anything else I can do for you today? No Patient declined apt. She states she has a follow up with her surgeon april 10. Ceasar Duncan, [facility]02-28-2025 History of Present illness Narrative* Trent Alas MD - 04/04/2024 10:30 AM EST Images from the original note were not included. [facility] [place] [address] [place] [id number] Dept: [phone] Dept 04/04/2024 Chief Complaint Patient presents with Post-op closed reduction percutaneous pinning of Left ring finger DOS 04/01/24 SUBJECTIVE Brittney is approximately 3 day(s) s/p closed reduction percutaneous pinning of Left ring finger .Pain is 10/10 reported from being seen in ED 04/03/24 and reports 10/10 . She is taking tylenol for pain relief. She was given Dilaudid in ED and says it made her sick and dehydrated from throwing up multiple times yesterday. She admits to numbness and tingling in left index finger . She denies drainage from her pin sites. She complains of severe pain in left index finger and getting sick from thepain meds in the ED. She has maintained her splint since her ED visit yesterday. She denies any recent injuries since surgery. Having a significant amount of pain about left index finger despite taking Tylenol and [place] for pain. Cannot take NSAIDs. No other concerns noted by patient at this time. OBJECTIVE Ht 4' 10 (1.473 m) Wt 180 lb (81.6 kg) BMI 37.62 kg/m Ortho Exam Focused Exam of the LEFT Upper Extremity Skin: intact without any evidence of breakdown, pin sites about distal aspect of ring finger intactwithout drainage minimal erythema about pin sites. See clinical image from 04/03 Edema: moderate edema surrounding the left ring finger surrounding the distal phalanx and DIP jointand middle phalanx Palpation: tender to palpation over the distal aspect of the ring finger ROM: full functional ROM of the shoulder, elbow, wrist, and hand except for limited range of motionabout left ring finger DIP and PIP joint, no obvious rotational abnormalities noted about left ringfinger Stability: no evidence of joint instabilities Motor: Intact in the hand - able to fire AIN, PIN, and Ulnar nerves Sensation: normal in the median, ulnar, and radial nerve distributions aside from mildly diminishedabout the distal aspect of the left ring finger Perfusion: Brisk capillary refill in all 5 digits IMAGING LEFT Hand 3V 04/03/24 reviewed independently by myself and demonstrate patient's left ring finger distal phalanx fracture to be in similar alignment to intraoperative x-rays with 2 K wires providing fixation in similar alignment to intraoperative x-rays as well without signs of significant hardware migration or breakage or change in fracture alignment ASSESSMENT 1. Postoperative pain HYDROcodone-acetaminophen ([place]) 5-325 MG tablet 2. Closed displaced fracture of distal phalanx of left ring finger with routine healing, subsequentencounter HYDROcodone-acetaminophen ([place]) 5-325 MG tablet PLAN Brittney status post left ring finger closed reduction and percutaneous pin fixation 04/01/2024. Patient having difficulties with pain control postoperatively. X-rays and clinical exam reassuring. Did recommend patient be placed back into a splint today. Recommended aggressive elevation of left upper extremity. Recommended continue pain control with Tylenol and patient was given a new prescription for [place] as well, to use for severe breakthrough pain as needed. Immobilization: Patient placed a plaster ulnar gutter splint Weight Bearing: Weight Bearing As Tolerated Rehabilitation: NO formal rehabilitation required at this point. Follow-up: Brittney will followup with / Waldemar in 1 weeks at previously scheduled postop appointment. She knows to call the office with any questions or concerns in the interim. Future Imaging: LEFT Hand 3V OOS Trent Alas MD Orthopedic Hand and Upper Extremity Surgery [facility] Department of Orthopaedics 04/04/2024 at 10:27 AM (Please note that portions of this note may have been completed with a voice recognition program. Efforts were made to edit the dictations but occasionally words are mis-transcribed.) documented in this [facility]02-28-2025 Hospital Discharge instructions* Discharge Instructions* Renea Lozano MD - 04/04/2024 12:45 AM EST Images from the original note were not included. General Orthopedic Discharge Instructions The following instructions have been prepared to help you when you leave the hospital. These guidelines are for the post-surgery period. Activity: Ease into normal activity as tolerated. Medications: see medication instructions. Please be sure to read and understand the information provided by your pharmacy. Ask your Pharmacist if any questions. Wound Care and Hygiene: -Wash hands before touching or changing dressings -Do Not touch incision -Leave dressing in place with splint on until follow up Splint Care: -Keep your splint clean and dry -Do not weight bear with your splint on unless specifically instructed by your surgeon -Do not unwrap splint, your surgeon will remove it on followup Call Your Doctor for: -Excessive bleeding/swelling of incision -Fever with temperature above 100 oF Additional Instructions: Take medication as prescribed by the ED. Call the surgeon's office in the morning for advice on pain management documented in this [facility]02-28-2025 Emergency department Note* Maria Mai RN - 04/04/2024 12:43 AM EST [id number]* Maria Mai RN - 04/04/2024 12:43 AM EST Ortho at bedside * Renea Mendoza RN - 04/03/2024 9:18 PM EST Report called to Myrtle Villegas RN at this time. * Jose Angel Casas MD - 04/03/2024 7:07 PM EST EMERGENCY DEPARTMENT ENCOUNTER Pt Name: Petar Alcocer Birthdate 1975 Date of evaluation: 04/03/2024 ED Provider: Jose Angel Casas MD CHIEF COMPLAINT Chief Complaint Patient presents with Post-op Problem Pt relates surgery to ring finger on her left hand on Apr 01. Pt relates pain to this hand 11/14.Pt relates she is suppose to get the wrap off her hand on April. HISTORY OF PRESENT ILLNESS (Location/Symptom, Timing/Onset, Context/Setting, Quality, Duration, Modifying Factors, Severity) Note limiting factors. I wore appropriate PPE for the entirety of this encounter. HPI Petar Alcocer is a 49 y.o. who presents to the emergency department with postoperative pain in the left hand ring finger History of heart attack chronic kidney insufficiency, asthma, stroke, hysterectomy surgery, cholecystectomy surgery, smokes, drinks. Patient had a left hand ring finger/fourth digit operation on 04/01/[address] Saucedo of orthopedic/hand surgery. Patient has not sustained a fall or traumatic injury or contusion since then. She has been doing everything she can to take care of her left hand ring finger, has not hit it against anything. She has been taking the medication she was prescribed for pain at home, but she comes in tonight complaining of numbness and tingling and pain and diminished range of motion and worsening pain and worsening swelling of the left hand ring finger. Digits 1, 2, 3, 5 on the left hand are completely normal and are not bothering her. The left wrist is not bothering her. The left forearm and left elbow are not bothering her. Right arm right leg left leg completely normal. No chest pain palpitation shortness of breath abdominal pain. There is no bloody or purulent drainage coming from the left hand ring finger. Upon review of the operative notes, the patient had a left hand ring finger #4 displaced distal phalanx fracture which was operated on on 04/01/2024 with a closed reduction with pins placed. She is due to have the splint removed from her hand on 04/10/2024, the splint is still in place upon arrival. Nursing Notes were reviewed. Limitations to history: None Outside historians: Past medical review in [facility] to obtain collateral history REVIEW OF SYSTEMS Review of Systems Pertinent positives and negatives as per [facility] PAST MEDICAL HISTORY Past Medical History: Diagnosis Date Asthma in childhood Bipolar 1 disorder (HCC) Chronic kidney disease cancer History of heart attack Migraine Myocardial infarction (HCC) PTSD (post-traumatic stress disorder) Seizures (HCC) in childhood Stroke (HCC) Tendonitis SURGICAL HISTORY Past Surgical History: Procedure Laterality Date CARPAL TUNNEL RELEASE Bilateral SECTION, LOW TRANSVERSE x2 CHOLECYSTECTOMY COLONOSCOPY HYSTERECTOMY OTHER SURGICAL HISTORY Left foot and leg OTHER SURGICAL HISTORY Left 04/01/2024 CLOSED REDUCTION PERCUTANEOUS PINNING LEFT RING FINGER DISTAL PHALANX FRACTURE - Left per Dr Alas UPPER GASTROINTESTINAL ENDOSCOPY CURRENT MEDICATIONS Previous Medications ACETAMINOPHEN (TYLENOL) 500 MG TABLET Take 1,000 mg by mouth every 8 hours as needed for mild pain (1-3). AJOVY 225 MG/1.5ML AUTO-INJECTOR Inject 1.5 mL subcutaneously once every month. Do not shake. ALBUTEROL 108 (90 BASE) MCG/ACT INHALER Inhale 2 puffs every 4 hours as needed for wheezing or shortness of breath. ATORVASTATIN (LIPITOR) 40 MG TABLET Take 40 mg by mouth daily. ATORVASTATIN CALCIUM (LIPITOR PO) Take by mouth. CYCLOBENZAPRINE (FLEXERIL) 10 MG TABLET Take 1 tablet (10 mg) by mouth Nightly for 10 days. DIVALPROEX (DEPAKOTE ER) 500 MG 24 HR TABLET With infusion for migraine FAMOTIDINE (PEPCID) 10 MG TABLET Take by mouth. GABAPENTIN PO Take by mouth 4 times daily. HYDROCODONE-ACETAMINOPHEN (NORCO) 5-325 MG TABLET Take 1 tablet by mouth every 6 hours as needed for severe pain (7-10) for up to 2 days. LANSOPRAZOLE (PREVACID) [address] CAPSULE Take 30 mg by mouth 2 times daily. Do not crush or chew. LORATADINE (CLARITIN PO) Take 10 mg by mouth daily. METHYLPREDNISOLONE (MEDROL) 4 MG TABLET Take 4 mg by mouth daily. MYRBETRIQ 50 MG 24 HR TABLET Take 50 mg by mouth daily. ONABOTULINUMTOXINA (BOTOX) 100 UNITS INJECTION Inject into the shoulder, thigh, or buttocks Once. ONDANSETRON (ZOFRAN) 8 MG TABLET Take by mouth as needed for nausea or vomiting. RIMEGEPANT SULFATE (NURTEC) 75 MG TABLET DISPERSIBLE Take by mouth as needed. SIMVASTATIN (ZOCOR) 20 MG TABLET Take 20 mg by mouth 2 times daily. ALLERGIES Chocolate, Citalopram, Naproxen, Amoxicillin, Codeine, Effexor [venlafaxine], Milk (cow), Morphine,Salicylates, Tramadol, Trazodone and nefazodone, Tomato, and Wound dressing adhesive FAMILY HISTORY No family history on file. SOCIAL HISTORY Social History Socioeconomic History Marital status: Tobacco Use Smoking status: Every Day Current packs/day: 1.50 Average packs/day: 1.5 packs/day for 40.2 years (60.2 ttl pk-yrs) Types: Cigarettes Start date: 1984 Tobacco comments: Has cut smoking back for surgery Vaping Use Vaping status: Every Day Substances: Nicotine Substance and Sexual Activity Alcohol use: Yes Comment: occasional Drug use: Yes Types: Marijuana Comment: History of crack cocaine use-uses THC for migraines PHYSICAL EXAM ED Triage Vitals [04/03/24 191] Temp Heart Rate Resp BP 37.1 C (98.7 F) 69 18 123/58 SpO2 Temp Source Heart Rate Source Patient Position 98 % Oral Monitor Sitting BP Location FiO2 (%) Right arm -- Physical Exam General: WDWN adult in NAD. Moderate discomfort, cradling the left hand and crying HENT: Head NCAT, EOMI with no erythema, swelling or discharge. Oropharyngeal mucus membranes moist,pink, no exudate Neck: Full ROM, supple, no rigidity Cardio: RRR, nl s1 s2 no m/r/g, extremities warm, dry, well perfused, non- edematous, 2+ bilateral radial pulses, 2+ bilateral TP pulses. Less than 2- second capillary refill in all digits on the left hand including the left hand ring finger Lungs: CTAB, no wheezes, rales, rhonchi, normal work of breathing Abdomen: Soft, NT, ND, non-rigid, BS x 4 normal MSK: Left elbow nontender to palpation, full range of flexion extension supination pronation without pain Left forearm nontender to palpation. Left forearm compartment soft nontender nonerythematous not indurated, not consistent with compartment syndrome or DVT The left wrist is nontender to palpation, full range of flexion extension inversion eversion left wrist without pain Left hand ring finger is painful to palpation at the MCP joint and the proximal phalanx and the PIPjoint and the middle phalanx and the DIP joint and the distal phalanx. It seems most tender to palpation over the PIP joint. 5 degrees of flexion and extension at the MCP joint, 0 degrees flexion extension at the PIP joint and 0 degrees flexion extension at the DIP joint Digits 1, 2, 3, 5 on the left hand are completely nontender to palpation exhibit full range of flexion and extension at the MCP PIP and DIP joints Skin: Warm, dry, pink. There is some swelling and subcutaneous bruising especially over the middle and distal phalanges of the left hand fourth digit. There is no purulent or bloody drainage at all. Patient does not appear to have a cellulitis on her left hand ring finger. Neuro: Alert, oriented, mentating normally Intact sensation on the left hand fourth digit on the lateral side, but the sensation is diminishedalthough not completely absent on the medial side from the PIP distally to the tip of the left handring finger. Intact sensation at the very tip of the left hand ring finger distal phalanx By comparison normal 5/5 strength and normal sensation digits 1, 2, 3, 5 on left hand DIAGNOSTIC RESULTS RADIOLOGY (Per Emergency Physician): Interpretation per the Radiologist below, if available at the time of this note: XR hand 3+ views left (Results Pending) LABS: Labs Reviewed CBC WITH AUTO DIFFERENTIAL BASIC METABOLIC PANEL PROTIME & APTT SEDIMENTATION RATE, AUTOMATED C-REACTIVE PROTEIN All other labs were within normal range or not returned as of this dictation. EMERGENCY DEPARTMENT COURSE and DIFFERENTIAL DIAGNOSIS/MDM: Vitals: Vitals: 04/03/24 1918 BP: 123/58 BP Location: Right arm Patient Position: Sitting Pulse: 69 Resp: 18 Temp: 37.1 C (98.7 F) TempSrc: Oral SpO2: 98% Weight: 81.6 kg (180 lb) Height: 1.473 m (4' 10) Medications ondansetron (Zofran) injection 4 mg (has no administration in time range) HYDROmorphone (Dilaudid) injection 0.5 mg (has no administration in time range) SCREENINGS 49-year-old female presents for postoperative pain, numbness and diminished range of motion in the left hand following orthopedic surgery operation 2 days ago Patient has very little flexion extension at the MCP PIP and DIP joints, some of this may be due topain and swelling, some of this may be due to the fact that pins were placed following the open reduction of the fracture on 04/01/2024. The finger does not appear to be infected, but it is swollen and patient does have numbness on the medial side from the PIP distally to the tip of the distal phalanx. Patient needs an x-ray of the left hand to ensure no underlying fracture or hardware failure, needs pain control, and will need to be transferred to [facility] for in person evaluation byhand surgery given the fact that she has new onset numbness and diminished range of motion 48 hours out from her operation. Some of this could be postoperative pain, the finger does not appear to be infected, there is no sign of compartment syndrome or DVT on the examination of the left upper extremity PROCEDURES: Unless otherwise noted below, none Procedures Metabolic panel shows no metabolic acidosis, good kidney function, glucose within normal limits Normal white blood cell count Not anemic Normal platelet count ESR elevated at 23 INR 1.0 CRP negative at 0.6 X-ray left hand shows postsurgical change compatible with status post percutaneous K wire fixation of the left ring finger distal phalangeal fracture. Interpreted by radiology and by me. Orthopedic surgery consulted at 2012 Dr. Smith responded and evaluated the case with us. She feels that the positioning of the pins looks excellent on x-ray and feels that some of this pain may be secondary to postoperative pain rather than genuine neurovascular compromise. They will be happy to evaluate patient in person, but based on the physical examination I relayed to them in the appearance of the x-rays, they feel that return tothe operating room likelihood is low. Patient will be transferred to [facility] to be evaluated by orthopedic/hand surgery given recent postoperative status. Accepting service will be orthopedic surgery, accepting ED attending will be Dr. Jailene Tabor. Patient informed of results of workup and plan to transfer to [facility] and indicate understanding and agreement. Disposition: Interfacility transfer to [facility] ED for evaluation by orthopedic/hand surgery CRITICAL CARE TIME FINAL IMPRESSION 1. Post-op pain 2. History of hand surgery DISPOSITION PATIENT REFERRED TO: No follow-up provider specified. DISCHARGE MEDICATIONS: New Prescriptions No medications on file (Comment: Please note this report has been produced using speech recognition software and may contain errors related to that system including errors in grammar, punctuation, and spelling, as well as words and phrases that may be inappropriate. If there are any questions or concerns please feel freeto contact the dictating provider for clarification.) Jose Angel Casas MD (electronically signed) Emergency Medicine Provider Jose Angel Casas MD 04/03/242115 * Binta Vidal MD - 04/03/2024 7:07 PM EST Emergency Department Encounter [facility] EMERGENCY DEPT Patient: Brittney Alcocer : 1975 I independently examined and evaluated Brittney Alcocer. This will serve as my Supervisory note and shared attestation. In brief: Patient sent to this ED for orthopedic evaluation. She had undergone surgery on the left ring finger on 04/01/2024, stating that she has numbness and tingling and pain and diminished range of motion of the finger. Focused exam: Patient is laying in bed no acute distress. The left fourth digit is tender to palpation over the middle phalanx. Did not palpate the distal phalanx. There is trace edema of the left fourth digit without duskiness or cyanosis. Sponge over the fingertip was not removed. Brief ED course/MDM: Sources of history (including external records): I reviewed the orthopedic surgery note from 04/01/2024 indicating that she underwent closed reduction, percutaneous pinning of the left ring finger distal phalanx fracture that had been displaced. Differential diagnoses include postop pain, neurovascular compromise, infection. Orthopedics consulted and felt that this was postoperative pain, recommended outpatient follow-up. Diagnoses as of 04/04/24 0219 Post-op pain History of hand surgery ED medications managed: Additional IV Dilaudid that she received in our ED I made diagnostic, treatment, and disposition decisions in conjunction with the resident. I also supervised louise portions of any procedures performed by the resident. For all further details of the patient's emergency department visit, please see his/her documentation. MD Binta Multani MD 04/04/24 0219 documented in this [facility]02-28-2025 NotePatient Outreach (AGFAMPLE) BRITTNEY ALCOCER ([id number]) 1975 F NFR Date Time Provider Department 04/04/24 CEASAR DUNCAN During your visit today, we recorded the following information about you: Ceasar Duncan MA 04/04/2024 1:05 PM Signed ED Follow Up: Patient discharged from [facility] ED on 04/03/2024. 1. How are you feeling since your ED visit? OK Have your symptoms improved or resolved? Yes 2. Were you prescribed any medications while in the ED or advised to stop any medication? No - If yes, were you able to fill your prescriptions? Not applicable -if stopped medication, what was the medication? na 3. Were you advised to schedule a follow up appointment with your provider? Yes - If no, Do you feel like you need an appointment scheduled? No - If yes, Do you need this scheduled now or has this already been scheduled? No 4. Were you able to contact the office or christian education director provider prior to your ED visit? Not applicable 5. Is there anything else I can do for you today? No Patient declined apt. She states she has a follow up with her surgeon april 10. Ceasar Duncan MA Allergies As of Date: 04/04/2024 Noted Allergy Reaction CITALOPRAM HYDROBROMIDE 10/27/2004 10 - Anaphylaxis Comments: TACHYCARDIA MORPHINE 01/26/2005 8 - GI Upset AMOXICILLIN 10/24/2004 8 - GI Upset 14 - Other: See Comments Comments: Makes me worse ASA (SALICYLATES) 10/27/2004 4 - Hives CHOCOLATE 10/27/2004 EFFEXOR (VENLAFAXINE HCL) 10/27/2004 11 - Vomiting NAPROXEN 02/16/2006 5 - Intolerance Comments: Depression PENICILLIN G 09/08/2021 8 - GI Upset TAPE (ADHESIVE TAPE-SILICONES) 01/27/2021 14 - Other: See Comments Comments: Rash TOMATO 12/21/2020 5 - Intolerance Comments: If cooked cant tolerate them TRAMADOL 10/24/2004 8 - GI Upset TRAZODONE 08/28/2017 1 - Mental Status Change Comments: Causes hallucinations VENLAFAXINE 12/13/2015 16 - Unknown Date Reviewed: 03/13/2024 Reviewed by: Wm Barr RN - Fully Assessed Reason for Visit: ED OUTREACH [Other] Cmt: ED OUTREACH [facility] 04/03/2024 Prescriptions as of 04/04/2024 - ondansetron orally disintegrating (ZOFRAN ODT) 8 mg disintegrating tablet Take 1 tablet by mouth every 8 hours as needed for nausea/vomiting. - rimegepant (NURTEC ODT) 75 mg disintegrating tablet Take 1 tablet at onset of headache/migraine. Only take 1 tablet as single dose in 24 hour period. - albuterol HFA (PROVENTIL HFA, VENTOLIN HFA) 90 mcg/actuation inhaler Inhale 2 Puffs as instructed every 4 hours as needed for wheezing/shortness of breath. - mirabegron (MYRBETRIQ) 50 mg Tb24 Take 1 tablet by mouth once daily. - fremanezumab-vfrm subcutaneus auto-injector 225 mg/1.5 mL (AJOVY) Inject 1.5 mL subcutaneously once every month. Do not shake. - lansoprazole (PREVACID) 30 mg capsule Take 1 capsule by mouth two times a day. - simvastatin (ZOCOR) 20 mg tablet Take 2 tablets by mouth daily at bedtime. - gabapentin (NEURONTIN) 800 mg tablet Take 1 tablet by mouth four times daily for 180 days. 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] 09/17/2006 Pain in joint, lower leg [M25.569] 09/08/2011 01/06/2016 Pain in joint, pelvic region and thigh [M25.559]09/08/2011 01/06/2016 Carpal tunnel syndrome, left [G56.02] 05/09/2012 Right knee pain [M25.561] 06/30/2014 Diverticulosis of intestine without bleeding [K*11/10/2015 Amenorrhea, unspecified [N91.2] 07/20/2015 Leiomyoma of uterus, unspecified [D25.9] 10/07/2015 Major depressive disorder, single episode, unsp*06/15/2015 Pain in right shoulder [M25.511] 10/12/2015 Unspecified asthma, uncomplicated [J45.909] 06/15/2015 Gastro-esophageal reflux disease without esopha*12/13/2015 Anxiety [F41.9] 12/13/2015 Left ovarian cyst [N83.202] 12/13/2015 History of drug abuse [F19.11] 12/13/2015 History of migraine [Z86.69] 12/13/2015 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] 12/13/2015 Kidney stone [N20.0] 12/13/2015 History of seizure [Z87.898] 12/13/2015 History of renal cell cancer [Z85.528] 01/06/2016 Renal neoplasm [D49.519] 04/27/2016 Occipital neuralgia of right side [M54.81] 08/15/2016 Eustachian tube dysfunction, bilateral [H69.93] 10/11/2016 Lumbar radiculopathy [M54.16] 10/11/2016 Leg weakness, bilateral [R29.898] 10/11/2016 Chronic bilateral low back pain with bilateral *10/11/2016 Chronic right-sided thoracic back pain [M54.6, * (more content not included)...[facility]02-27-2025 Emergency department Note* Renea Mendoza RN - 04/03/2024 9:18 PM EST Report called to Myrtle Villegas RN at this time. [id number] Emergency department Note* Jose Angel Casas MD - 04/03/2024 7:07 PM EST EMERGENCY DEPARTMENT ENCOUNTER Pt Name: Petar Alcocer Birthdate 1975 Date of evaluation: 04/03/2024 ED Provider: Jose Angel Casas MD CHIEF COMPLAINT Chief Complaint Patient presents with Post-op Problem Pt relates surgery to ring finger on her left hand on Apr 01. Pt relates pain to this hand 11/14.Pt relates she is suppose to get the wrap off her hand on April. HISTORY OF PRESENT ILLNESS (Location/Symptom, Timing/Onset, Context/Setting, Quality, Duration, Modifying Factors, Severity) Note limiting factors. I wore appropriate PPE for the entirety of this encounter. HPI Petar Alcocer is a 49 y.o. who presents to the emergency department with postoperative pain in the left hand ring finger History of heart attack chronic kidney insufficiency, asthma, stroke, hysterectomy surgery, cholecystectomy surgery, smokes, drinks. Patient had a left hand ring finger/fourth digit operation on 04/01/[address] Saucedo of orthopedic/hand surgery. Patient has not sustained a fall or traumatic injury or contusion since then. She has been doing everything she can to take care of her left hand ring finger, has not hit it against anything. She has been taking the medication she was prescribed for pain at home, but she comes in tonight complaining of numbness and tingling and pain and diminished range of motion and worsening pain and worsening swelling of the left hand ring finger. Digits 1, 2, 3, 5 on the left hand are completely normal and are not bothering her. The left wrist is not bothering her. The left forearm and left elbow are not bothering her. Right arm right leg left leg completely normal. No chest pain palpitation shortness of breath abdominal pain. There is no bloody or purulent drainage coming from the left hand ring finger. Upon review of the operative notes, the patient had a left hand ring finger #4 displaced distal phalanx fracture which was operated on on 04/01/2024 with a closed reduction with pins placed. She is due to have the splint removed from her hand on 04/10/2024, the splint is still in place upon arrival. Nursing Notes were reviewed. Limitations to history: None Outside historians: Past medical review in [facility] to obtain collateral history REVIEW OF SYSTEMS Review of Systems Pertinent positives and negatives as per [facility] PAST MEDICAL HISTORY Past Medical History: Diagnosis Date Asthma in childhood Bipolar 1 disorder (HCC) Chronic kidney disease cancer History of heart attack Migraine Myocardial infarction (HCC) PTSD (post-traumatic stress disorder) Seizures (HCC) in childhood Stroke (HCC) Tendonitis SURGICAL HISTORY Past Surgical History: Procedure Laterality Date CARPAL TUNNEL RELEASE Bilateral SECTION, LOW TRANSVERSE x2 CHOLECYSTECTOMY COLONOSCOPY HYSTERECTOMY OTHER SURGICAL HISTORY Left foot and leg OTHER SURGICAL HISTORY Left 04/01/2024 CLOSED REDUCTION PERCUTANEOUS PINNING LEFT RING FINGER DISTAL PHALANX FRACTURE - Left per Dr Alas UPPER GASTROINTESTINAL ENDOSCOPY CURRENT MEDICATIONS Previous Medications ACETAMINOPHEN (TYLENOL) 500 MG TABLET Take 1,000 mg by mouth every 8 hours as needed for mild pain (1-3). AJOVY 225 MG/1.5ML AUTO-INJECTOR Inject 1.5 mL subcutaneously once every month. Do not shake. ALBUTEROL 108 (90 BASE) MCG/ACT INHALER Inhale 2 puffs every 4 hours as needed for wheezing or shortness of breath. ATORVASTATIN (LIPITOR) 40 MG TABLET Take 40 mg by mouth daily. ATORVASTATIN CALCIUM (LIPITOR PO) Take by mouth. CYCLOBENZAPRINE (FLEXERIL) 10 MG TABLET Take 1 tablet (10 mg) by mouth Nightly for 10 days. DIVALPROEX (DEPAKOTE ER) 500 MG 24 HR TABLET With infusion for migraine FAMOTIDINE (PEPCID) 10 MG TABLET Take by mouth. GABAPENTIN PO Take by mouth 4 times daily. HYDROCODONE-ACETAMINOPHEN (NORCO) 5-325 MG TABLET Take 1 tablet by mouth every 6 hours as needed for severe pain (7-10) for up to 2 days. LANSOPRAZOLE (PREVACID) [address] CAPSULE Take 30 mg by mouth 2 times daily. Do not crush or chew. LORATADINE (CLARITIN PO) Take 10 mg by mouth daily. METHYLPREDNISOLONE (MEDROL) 4 MG TABLET Take 4 mg by mouth daily. MYRBETRIQ 50 MG 24 HR TABLET Take 50 mg by mouth daily. ONABOTULINUMTOXINA (BOTOX) 100 UNITS INJECTION Inject into the shoulder, thigh, or buttocks Once. ONDANSETRON (ZOFRAN) 8 MG TABLET Take by mouth as needed for nausea or vomiting. RIMEGEPANT SULFATE (NURTEC) 75 MG TABLET DISPERSIBLE Take by mouth as needed. SIMVASTATIN (ZOCOR) 20 MG TABLET Take 20 mg by mouth 2 times daily. ALLERGIES Chocolate, Citalopram, Naproxen, Amoxicillin, Codeine, Effexor [venlafaxine], Milk (cow), Morphine,Salicylates, Tramadol, Trazodone and nefazodone, Tomato, and Wound dressing adhesive FAMILY HISTORY No family history on file. SOCIAL HISTORY Social History Socioeconomic History Marital status: Tobacco Use Smoking status: Every Day Current packs/day: 1.50 Average packs/day: 1.5 packs/day for 40.2 years (60.2 ttl pk-yrs) Types: Cigarettes Start date: 1984 Tobacco comments: Has cut smoking back for surgery Vaping Use Vaping status: Every Day Substances: Nicotine Substance and Sexual Activity Alcohol use: Yes Comment: occasional Drug use: Yes Types: Marijuana Comment: History of crack cocaine use-uses THC for migraines PHYSICAL EXAM ED Triage Vitals [04/03/24 191] Temp Heart Rate Resp BP 37.1 C (98.7 F) 69 18 123/58 SpO2 Temp Source Heart Rate Source Patient Position 98 % Oral Monitor Sitting BP Location FiO2 (%) Right arm -- Physical Exam General: WDWN adult in NAD. Moderate discomfort, cradling the left hand and crying HENT: Head NCAT, EOMI with no erythema, swelling or discharge. Oropharyngeal mucus membranes moist,pink, no exudate Neck: Full ROM, supple, no rigidity Cardio: RRR, nl s1 s2 no m/r/g, extremities warm, dry, well perfused, non- edematous, 2+ bilateral radial pulses, 2+ bilateral TP pulses. Less than 2- second capillary refill in all digits on the left hand including the left hand ring finger Lungs: CTAB, no wheezes, rales, rhonchi, normal work of breathing Abdomen: Soft, NT, ND, non-rigid, BS x 4 normal MSK: Left elbow nontender to palpation, full range of flexion extension supination pronation without pain Left forearm nontender to palpation. Left forearm compartment soft nontender nonerythematous not indurated, not consistent with compartment syndrome or DVT The left wrist is nontender to palpation, full range of flexion extension inversion eversion left wrist without pain Left hand ring finger is painful to palpation at the MCP joint and the proximal phalanx and the PIPjoint and the middle phalanx and the DIP joint and the distal phalanx. It seems most tender to palpation over the PIP joint. 5 degrees of flexion and extension at the MCP joint, 0 degrees flexion extension at the PIP joint and 0 degrees flexion extension at the DIP joint Digits 1, 2, 3, 5 on the left hand are completely nontender to palpation exhibit full range of flexion and extension at the MCP PIP and DIP joints Skin: Warm, dry, pink. There is some swelling and subcutaneous bruising especially over the middle and distal phalanges of the left hand fourth digit. There is no purulent or bloody drainage at all. Patient does not appear to have a cellulitis on her left hand ring finger. Neuro: Alert, oriented, mentating normally Intact sensation on the left hand fourth digit on the lateral side, but the sensation is diminishedalthough not completely absent on the medial side from the PIP distally to the tip of the left handring finger. Intact sensation at the very tip of the left hand ring finger distal phalanx By comparison normal 5/5 strength and normal sensation digits 1, 2, 3, 5 on left hand DIAGNOSTIC RESULTS RADIOLOGY (Per Emergency Physician): Interpretation per the Radiologist below, if available at the time of this note: XR hand 3+ views left (Results Pending) LABS: Labs Reviewed CBC WITH AUTO DIFFERENTIAL BASIC METABOLIC PANEL PROTIME & APTT SEDIMENTATION RATE, AUTOMATED C-REACTIVE PROTEIN All other labs were within normal range or not returned as of this dictation. EMERGENCY DEPARTMENT COURSE and DIFFERENTIAL DIAGNOSIS/MDM: Vitals: Vitals: 04/03/24 1918 BP: 123/58 BP Location: Right arm Patient Position: Sitting Pulse: 69 Resp: 18 Temp: 37.1 C (98.7 F) TempSrc: Oral SpO2: 98% Weight: 81.6 kg (180 lb) Height: 1.473 m (4' 10) Medications ondansetron (Zofran) injection 4 mg (has no administration in time range) HYDROmorphone (Dilaudid) injection 0.5 mg (has no administration in time range) SCREENINGS 49-year-old female presents for postoperative pain, numbness and diminished range of motion in the left hand following orthopedic surgery operation 2 days ago Patient has very little flexion extension at the MCP PIP and DIP joints, some of this may be due topain and swelling, some of this may be due to the fact that pins were placed following the open reduction of the fracture on 04/01/2024. The finger does not appear to be infected, but it is swollen and patient does have numbness on the medial side from the PIP distally to the tip of the distal phalanx. Patient needs an x-ray of the left hand to ensure no underlying fracture or hardware failure, needs pain control, and will need to be transferred to [facility] for in person evaluation byhand surgery given the fact that she has new onset numbness and diminished range of motion 48 hours out from her operation. Some of this could be postoperative pain, the finger does not appear to be infected, there is no sign of compartment syndrome or DVT on the examination of the left upper extremity PROCEDURES: Unless otherwise noted below, none Procedures Metabolic panel shows no metabolic acidosis, good kidney function, glucose within normal limits Normal white blood cell count Not anemic Normal platelet count ESR elevated at 23 INR 1.0 CRP negative at 0.6 X-ray left hand shows postsurgical change compatible with status post percutaneous K wire fixation of the left ring finger distal phalangeal fracture. Interpreted by radiology and by me. Orthopedic surgery consulted at 2012 Dr. Smith responded and evaluated the case with us. She feels that the positioning of the pins looks excellent on x-ray and feels that some of this pain may be secondary to postoperative pain rather than genuine neurovascular compromise. They will be happy to evaluate patient in person, but based on the physical examination I relayed to them in the appearance of the x-rays, they feel that return tothe operating room likelihood is low. Patient will be transferred to [facility] to be evaluated by orthopedic/hand surgery given recent postoperative status. Accepting service will be orthopedic surgery, accepting ED attending will be Dr. Jailene Tabor. Patient informed of results of workup and plan to transfer to [facility] and indicate understanding and agreement. Disposition: Interfacility transfer to [facility] ED for evaluation by orthopedic/hand surgery CRITICAL CARE TIME FINAL IMPRESSION 1. Post-op pain 2. History of hand surgery DISPOSITION PATIENT REFERRED TO: No follow-up provider specified. DISCHARGE MEDICATIONS: New Prescriptions No medications on file (Comment: Please note this report has been produced using speech recognition software and may contain errors related to that system including errors in grammar, punctuation, and spelling, as well as words and phrases that may be inappropriate. If there are any questions or concerns please feel freeto contact the dictating provider for clarification.) Jose Angel Casas MD (electronically signed) Emergency Medicine Provider Jose Angel Casas MD 04/03/242115 [id number] Emergency department Note* Binta Vidal MD - 04/03/2024 7:07 PM EST Emergency Department Encounter [facility] EMERGENCY DEPT Patient: Brittney Alcocer : 1975 I independently examined and evaluated Brittney Alcocer. This will serve as my Supervisory note and shared attestation. In brief: Patient sent to this ED for orthopedic evaluation. She had undergone surgery on the left ring finger on 04/01/2024, stating that she has numbness and tingling and pain and diminished range of motion of the finger. Focused exam: Patient is laying in bed no acute distress. The left fourth digit is tender to palpation over the middle phalanx. Did not palpate the distal phalanx. There is trace edema of the left fourth digit without duskiness or cyanosis. Sponge over the fingertip was not removed. Brief ED course/MDM: Sources of history (including external records): I reviewed the orthopedic surgery note from 04/01/2024 indicating that she underwent closed reduction, percutaneous pinning of the left ring finger distal phalanx fracture that had been displaced. Differential diagnoses include postop pain, neurovascular compromise, infection. Orthopedics consulted and felt that this was postoperative pain, recommended outpatient follow-up. Diagnoses as of 04/04/24218 Post-op pain History of hand surgery ED medications managed: Additional IV Dilaudid that she received in our ED I made diagnostic, treatment, and disposition decisions in conjunction with the resident. I also supervised louise portions of any procedures performed by the resident. For all further details of the patient's emergency department visit, please see his/her documentation. MD Binta Multani MD 04/04/24218 [facility] [id number] Telephone encounter Note* Telephone Encounter - Rico Oviedo - 04/03/2024 3:50 PM EST Spoke with patient on phone , patient sounded under the weather, I advised patient that we can see her in office tomorrow but if she cannot wait that long to be seen and her pain is that severe than she would need to follow up with the ED , patient verbalized understanding of my recommendations andelected to give it another day or so and will go to the ED if pain does not decrease. I again confirmed with her that she is electing NOT to be seen in clinic tomorrow and that she will observe her symptoms over the next couple of days and proceed from there and she again verbalized understanding. [facility] [id number] Miscellaneous Notes* Telephone Encounter - Rico Oviedo - 04/03/2024 3:50 PM EST Spoke with patient on phone , patient sounded under the weather, I advised patient that we can see her in office tomorrow but if she cannot wait that long to be seen and her pain is that severe than she would need to follow up with the ED , patient verbalized understanding of my recommendations andelected to give it another day or so and will go to the ED if pain does not decrease. I again confirmed with her that she is electing NOT to be seen in clinic tomorrow and that she will observe her symptoms over the next couple of days and proceed from there and she again verbalized understanding. * Telephone Encounter - Lindsey Poe RN - 04/03/2024 2:08 PM EST Situation: Patient called orthopedic nurse triage line and spoke with Lindsey Poe RN regarding pain inhand and feeling of pins and needles. Background: Brittney is approximately 2 day(s) s/p closed reduction percutaneous pinning left ring finger distal phalanx fracture with Dr. Alas Assessment: Brittney complains of new symptoms to include throbbing, aching pain in her hand. Feeling of pins and needles. Stated taking [place] and Tylenol is not helping. Currently pain is moderate. Brittney is taking [place] for pain relief. acetaminophen every 6 hours Brittney admits to new numbness and tingling. Pin and needles feeling Incision is covered , Brittney denies drainage from her incision. Capillary refill: 3 seconds Erythema: No Swelling: No Effusion: No Recommendation: Telephone encounter sent to clinical staff provider to advise documented in this [facility]02-27-2025 Telephone encounter Note* Telephone Encounter - Lindsey Poe RN - 04/03/2024 2:08 PM EST Situation: Patient called orthopedic nurse triage line and spoke with Lindsey Poe RN regarding pain inhand and feeling of pins and needles. Background: Brittney is approximately 2 day(s) s/p closed reduction percutaneous pinning left ring finger distal phalanx fracture with Dr. Alas Assessment: Brittney complains of new symptoms to include throbbing, aching pain in her hand. Feeling of pins and needles. Stated taking [place] and Tylenol is not helping. Currently pain is moderate. Brittney is taking Ok[place] for pain relief. acetaminophen every 6 hours Brittney admits to new numbness and tingling. Pin and needles feeling Incision is covered , Brittney denies drainage from her incision. Capillary refill: 3 seconds Erythema: No Swelling: No Effusion: No Recommendation: Telephone encounter sent to clinical staff provider to advise [id number] Nurse Note* Perioperative Nursing Note - Farzana Bennett RN - 04/01/2024 12:01 PM EST Pt and family verbalized understanding of recovery instructions, pt verbalized a readiness to be discharged home. Pt discharged home via wheelchair accompanied by RN/volunteer. Pt has had all their belongings returned to them at discharge [id number] Miscellaneous Notes* Perioperative Nursing Note - Farzana Bennett RN - 04/01/2024 12:01 PM EST Pt and family verbalized understanding of recovery instructions, pt verbalized a readiness to be discharged home. Pt discharged home via wheelchair accompanied by RN/volunteer. Pt has had all their belongings returned to them at discharge * Perioperative Nursing Note - Farzana Bennett RN - 04/01/2024 11:50 AM EST Reviewed discharge instructions with patient and friend Yvette. Understanding verbalized. * Perioperative Nursing Note - Farzana Bennett RN - 04/01/2024 10:57 AM EST Patient transitioned to Phase 2. Tolerating liquids. Family at bedside. * Perioperative Nursing Note - Farzana Bennett RN - 04/01/2024 10:12 AM EST Pt received from OR via cart, spont. Resp. With FIBERLINE SUPERVISOR in attendance. Placed on monitor. Monitor alarms on in PACU * Op Note - Trent Alas MD - 04/01/2024 9:34 AM EST Operative Report Patient Name: Brittney Alcocer Date of : 1975 Date of Surgery: 04/01/24 Preoperative Diagnosis: left ring finger displaced distal phalanx fracture Postoperative Diagnosis: Same Procedure: Closed reduction and percutaneous pin fixation of left ring finger displaced distal phalanx fracture Surgeon: Trent Alas MD Assistants: Francine Medeiros PA-C The first-therapeutic recreation assistant was critical to all steps of the operation, including retraction and arm extremity stabilization during exposure, as well as the deep and superficial wound closure. I understand that section 1842(b)(7)(D) of the Social Security Act generally prohibits Medicare physician fee schedule payment for the services of assistants at surgery in teaching hospitals when qualified residents are available to furnish such services. I certify that the services for which payment is claimed were medically necessary and that no qualified resident (PGY1 or greater) was available to perform the services. I further understand that these services are subject to post- payment review by the Medic are carrier. Implants: .045 in k wire and .035 in k wire Specimens Removed: None Anesthesia: General Local Anesthesia: 0.5% Marcaine for a total of 10ml into the subcutaneous tissues of the operative site(s) Estimated Blood Loss: <5ml Pre Operative Antibiotics: Yes, 2 grams Ancef Indications: Ms. Brittney Alcocer is a 49 y.o. year-old female left ring finger displaced distal phalanx fracture. I have discussed with her, preoperatively, the complications, limitations, expectations, alternatives to surgical treatment, and risks of surgical intervention, of which she has demon strated understanding. I couselled patient and any family members/ guardians present regarding the risks of surgical intervention which include but are not limited to the risks of injury to neurovascular and surrounding anatomic structures, persistent pain and disability, unsightly scar, wound healing issues, postoperative stiffness, need for revision surgery, infection, malunion, nonunion, painful/ symptomatic hardware, CRPS, myocardial infarction, deep vein thrombosis, pulmonary embolism, andeven . No guarantees were given or implied. After having all of her questions answered to her satisfaction, Ms. Brittney Alcocer and his legal guardian have provided written informed consent to proceed. Informed consent was signed prior to proceeding to OR. Procedure: Brittney Alcocer was identified in the preoperative waiting area. Her operative site and extremity were initialed by the surgeon of record and informed consent was reviewed and signed. Final questions were answered. She was brought to the operating room and placed in the supine position with the operative extremity on the hand table. All bony prominences were well padded. Tourniquet was placed about the left arm. Adequate anesthesia was then induced by the anesthesia provider. The operative extremity was prepped and draped in the usual sterile fashion. A surgical timeout was thenperformed confirming patient, procedure, operative extremity, laterality, and site, antibiotic admin istration if indicated, and any other pertinent information. The patient's ASA was verified by the nurse coffee weigher and the anesthesia staff. Fire risk was assessed. 10 cc of half percent Marcaine was placed subcutaneously about the base of the left ring finger fora digital block. The patient's left ring finger distal phalanx fracture was reduced using appropriate reduction maneuvers under fluoroscopic guidance. We were able to adequately reduce the fracture through closed means. While maintaining reduction, a 0.045 inch K wire was passed in a retrograde fashion from the distal aspect of the tip of the distal phalanx across the fracture site and across thedistal interphalangeal joint into the middle phalanx under fluoroscopic guidance. An additional 0.035 inch K wire was then passed in a similar retrograde fashion from the distal aspect of the tip of the distal phalanx across the fracture site and across the distal interphalangeal joint into the middle phalanx under fluoroscopic guidance. Final PA and lateral x-rays of the left ring finger were obtained demonstrating appropriate hardware position and maintenance of fracture reduction in acceptabl e alignment. On visual inspection, no rotational deformity of the left ring finger noted and normalcascade of the fingers and tenodesis effect noted with passive wrist range of motion. The pins were then appropriately bent and cut and padded with sterile foam. Extremity was cleansed.Hands were appropriately dressed with 4 x 4's and the patient was placed into a well-padded ulnar gutter splint. Tourniquet was not used during this case and fingers were perfusing well after placement of the dressings and the fingers were perfusing well after placement of the dressings and splint.Drapes and tourniquet were taken down. Patient emerged from anesthesia uneventfully. Ms. Brittney Alcocer was taken to the recovery room in stable condition. POST OPERATIVE PLAN -Maintain splint till post-op visit 10-14 days post op -NWB operative extremity, OK for immediate range of motion of un-splinted joints/fingers as tolerated -Pain control as outlined in discharge instructions -Ok to remove splint immediate post op visit, leave pin in place -3V operative hand x-rays out of splint at immediate postop visit Trent Alas MD Orthopedic Hand and Upper Extremity Surgery [facility] Department of Orthopaedics documented in this [facility] [id number] Nurse Note* Perioperative Nursing Note - Farzana Bennett RN - 04/01/2024 11:50 AM EST Reviewed discharge instructions with patient and friend Yvette. Understanding verbalized. [id number] Nurse Note* Perioperative Nursing Note - Farzana Bennett RN - 04/01/2024 10:57 AM EST Patient transitioned to Phase 2. Tolerating liquids. Family at bedside. [id number] Hospital Discharge instructions* Discharge Instructions* Francine Medeiros PA-C - 04/01/2024 10:18 AM EST Bandage: Keep operative splint/dressing on, clean, and dry until follow up appointment in 1-2 weeks. Swelling control: Elevate and Ice for pain control. You may take the prescribed [place] for breakthrough pain relief asneeded. You may prioritize Ibuprofen 600 mg every 6 hours with food as needed for relief of pain and swelling if your other physicians allow you to take this. You can also take Tylenol extra [id number] mg every 6 hours as needed to help control pain after surgery. You may alternate taking ibuprofen and Tylenol every 4 hours as follows: take 800mg ibuprofen and then 4 hours later take 1000mg Tylenol, then 4 hours later take 800mg ibuprofen, then 4 hours later take 1000mg Tylenol, etc. (Do not exceed daily maximums for ibuprofen and Tylenol that are listed below) OTC Medication dosing (for your information): Acetaminophen (Tylenol) Maximum dosage for the day is 3000 mg Take 2 tablets (500mg each) 3 times per day Ibuprofen (Advil or Motrin) Maximum dosage for the day is 2400mg Take 4 tablets (200mg each) 3 times per day with food Example being with breakfast, lunch, and dinner Naproxen (Naprosyn or Aleve) Maximum dosage for the day is 880mg Take 2 tablets (220mg each) 2 times per day with food Example being with breakfast and dinner It is SAFE to alternate Tylenol with Ibuprofen or Naproxen DO NOT TAKE IBUPROFEN AND NAPROXEN TOGETHER Immobilization: Encourage range of motion of index finger, thumb, elbow in splint/dressing with goal of touching finger tips to splint material/dressing in palm by initial post op appointment. Weightbearing: Non weight bearing in operative extremity. Nerve block for pain control: You received a local injection with lidocaine today. It is normal for your finger tip to look pale or white for up to 10 hours after surgery but if this persists past the 10 hours please call the office immediately. * Attachments The following attachments cannot be sent through Care Everywhere. * Moderate Sedation in Adults Discharge Instructions (Panamanian) documented in this [facility]02-25-2025 NotePatient: Petar Alcocer Procedure Summary Date: 04/01/24 Room / Location: [address] Operating Room Anesthesia Start: 933 Anesthesia Stop: 1013 Procedure: CLOSED REDUCTION PERCUTANEOUS PINNING LEFT RING FINGER DISTAL PHALANX FRACTURE (Left: Hand) Diagnosis: Displaced fracture of distal phalanx of left ring finger, subsequent encounter for fracture with routine healing Surgeons: Trent Alas MD Responsible Provider: No Anesthesiologist - Jaya/MD Aure Anesthesia Type: TIVA ASA Status: 3 Anesthesia Type: TIVA Vitals Value Taken Time BP 117/54 04/01/24 1031 Temp 98.6 04/01/24 1037 Pulse 65 04/01/24 1036 Resp 18 04/01/24 1036 SpO2 99 % 04/01/24 1036 Vitals shown include unfiled device data. Anesthesia Post Evaluation Patient location during evaluation: PACU Patient participation: waiting for patient participation Level of consciousness: sleepy but conscious Pain score: 0 Pain management: satisfactory to patient Multimodal analgesia pain management approach Airway patency: patent Two or more strategies used to mitigate risk of obstructive sleep apnea Cardiovascular status: acceptable and hemodynamically stable Respiratory status: acceptable, face mask and oral airway Hydration status: acceptable No notable events documented. MIPS #430 PONV Patient received an inhalational anesthetic (4554F) Patient does not exhibit three or more risk factors for PONV (X0430)) MIPS # 424 Perioperative Temperature Management Anesthesia time was less than 60 minutes (4256F) MIPS #477 Multimodal Pain Management Not emergent case Patient was administered multimodal pain management (two or more drugs and/or interventions excluding systemic opioids) in the periopeartive period occurring at some time between 6 hours prior to anesthesia start time until discharged from PACU (G2148) MIPS #404 Anesthesiology Smoking Abstinence The patient is not a current smoker (e.g. cigarette, cigar, pipe, e-cigarette/vaping/marijuana) If no stop here (XX404) I completed my handoff to the receiving clinician during which we: 1. Identified the patient 2. Identified the responsible provider 3. Reviewed the pertinent medical history 4. Discussed the surgical course 5. Reviewed intra-op anesthesia management and issues during anesthesia 6. Set expectations for post-procedure period 7. Allowed opportunity for questions and acknowledgement of understanding.[facility]02-25-2025 NotePatient: Petar Alcocer Procedure Summary Date: 04/01/24 Room / Location: [address] Operating Room Anesthesia Start: 933 Anesthesia Stop: 1013 Procedure: CLOSED REDUCTION PERCUTANEOUS PINNING LEFT RING FINGER DISTAL PHALANX FRACTURE (Left: Hand) Diagnosis: Displaced fracture of distal phalanx of left ring finger, subsequent encounter for fracture with routine healing Surgeons: Trent Alas MD Responsible Provider: No Anesthesiologist - Jaya/MD Aure Anesthesia Type: TIVA ASA Status: 3 Anesthesia Type: TIVA Vitals Value Taken Time BP 117/54 04/01/24 1031 Temp 98.6 04/01/24 1037 Pulse 66 04/01/24 1037 Resp 18 04/01/24 1037 SpO2 99 % 04/01/24 1037 Vitals shown include unfiled device data. Anesthesia Post Evaluation Patient location during evaluation: PACU Patient participation: waiting for patient participation Level of consciousness: sleepy but conscious Pain management: satisfactory to patient Airway patency: patent Dental Injury: no Cardiovascular status: acceptable, blood pressure returned to baseline and hemodynamically stable Respiratory status: acceptable, spontaneous ventilation, face mask and oral airway Hydration status: euvolemic Nausea/Vomiting: controlled No notable events documented. Patient can be discharged once all PACU criteria has been met.[facility]02-25-2025 Nurse Note* Perioperative Nursing Note - Farzana Bennett RN - 04/01/2024 10:12 AM EST Pt received from OR via cart, spont. Resp. With FIBERLINE SUPERVISOR in attendance. Placed on monitor. Monitor alarms on in [id number] NoteAirway Date/Time: 04/01/2024 9:46 AM Urgency: scheduled Airway not difficult General Information and Staff Patient location during procedure: Procedural Resident/FIBERLINE SUPERVISOR: Farrukh Gandhi APRN - FIBERLINE SUPERVISOR Performed: FIBERLINE SUPERVISOR Indications and Patient Condition Indications for airway management: anesthesia Sedation level: Asleep Preoxygenated: yes Patient position: sniffing MILS maintained throughout Mask difficulty assessment: 0 - not attempted Final Airway Details Final airway type: supraglottic airway Successful airway: Igel Size 4 Number of attempts at approach: [facility] Procedure note* Op Note - Trent Alas MD - 04/01/2024 9:34 AM EST Operative Report Patient Name: Brittney Alcocer Date of : 1975 Date of Surgery: 04/01/24 Preoperative Diagnosis: left ring finger displaced distal phalanx fracture Postoperative Diagnosis: Same Procedure: Closed reduction and percutaneous pin fixation of left ring finger displaced distal phalanx fracture Surgeon: Trent Alas MD Assistants: Francine Medeiros PA-C The first-therapeutic recreation assistant was critical to all steps of the operation, including retraction and arm extremity stabilization during exposure, as well as the deep and superficial wound closure. I understand that section 1842(b)(7)(D) of the Social Security Act generally prohibits Medicare physician fee schedule payment for the services of assistants at surgery in teaching hospitals when qualified residents are available to furnish such services. I certify that the services for which payment is claimed were medically necessary and that no qualified resident (PGY1 or greater) was available to perform the services. I further understand that these services are subject to post- payment review by the Medic are carrier. Implants: .045 in k wire and .035 in k wire Specimens Removed: None Anesthesia: General Local Anesthesia: 0.5% Marcaine for a total of 10ml into the subcutaneous tissues of the operative site(s) Estimated Blood Loss: <5ml Pre Operative Antibiotics: Yes, 2 grams Ancef Indications: Ms. Brittney Alcocer is a 49 y.o. year-old female left ring finger displaced distal phalanx fracture. I have discussed with her, preoperatively, the complications, limitations, expectations, alternatives to surgical treatment, and risks of surgical intervention, of which she has demon strated understanding. I couselled patient and any family members/ guardians present regarding the risks of surgical intervention which include but are not limited to the risks of injury to neurovascular and surrounding anatomic structures, persistent pain and disability, unsightly scar, wound healing issues, postoperative stiffness, need for revision surgery, infection, malunion, nonunion, painful/ symptomatic hardware, CRPS, myocardial infarction, deep vein thrombosis, pulmonary embolism, andeven . No guarantees were given or implied. After having all of her questions answered to her satisfaction, Ms. Brittney Alcocer and his legal guardian have provided written informed consent to proceed. Informed consent was signed prior to proceeding to OR. Procedure: Brittney Alcocer was identified in the preoperative waiting area. Her operative site and extremity were initialed by the surgeon of record and informed consent was reviewed and signed. Final questions were answered. She was brought to the operating room and placed in the supine position with the operative extremity on the hand table. All bony prominences were well padded. Tourniquet was placed about the left arm. Adequate anesthesia was then induced by the anesthesia provider. The operative extremity was prepped and draped in the usual sterile fashion. A surgical timeout was thenperformed confirming patient, procedure, operative extremity, laterality, and site, antibiotic admin istration if indicated, and any other pertinent information. The patient's ASA was verified by the nurse coffee weigher and the anesthesia staff. Fire risk was assessed. 10 cc of half percent Marcaine was placed subcutaneously about the base of the left ring finger fora digital block. The patient's left ring finger distal phalanx fracture was reduced using appropriate reduction maneuvers under fluoroscopic guidance. We were able to adequately reduce the fracture through closed means. While maintaining reduction, a 0.045 inch K wire was passed in a retrograde fashion from the distal aspect of the tip of the distal phalanx across the fracture site and across thedistal interphalangeal joint into the middle phalanx under fluoroscopic guidance. An additional 0.035 inch K wire was then passed in a similar retrograde fashion from the distal aspect of the tip of the distal phalanx across the fracture site and across the distal interphalangeal joint into the middle phalanx under fluoroscopic guidance. Final PA and lateral x-rays of the left ring finger were obtained demonstrating appropriate hardware position and maintenance of fracture reduction in acceptabl e alignment. On visual inspection, no rotational deformity of the left ring finger noted and normalcascade of the fingers and tenodesis effect noted with passive wrist range of motion. The pins were then appropriately bent and cut and padded with sterile foam. Extremity was cleansed.Hands were appropriately dressed with 4 x 4's and the patient was placed into a well-padded ulnar gutter splint. Tourniquet was not used during this case and fingers were perfusing well after placement of the dressings and the fingers were perfusing well after placement of the dressings and splint.Drapes and tourniquet were taken down. Patient emerged from anesthesia uneventfully. Ms. Brittney Alccoer was taken to the recovery room in stable condition. POST OPERATIVE PLAN -Maintain splint till post-op visit 10-14 days post op -NWB operative extremity, OK for immediate range of motion of un-splinted joints/fingers as tolerated -Pain control as outlined in discharge instructions -Ok to remove splint immediate post op visit, leave pin in place -3V operative hand x-rays out of splint at immediate postop visit Trent Alas MD Orthopedic Hand and Upper Extremity Surgery [facility] Department of Orthopaedics [email or web address] Work Phone: 1(764) 398-465202-25-2025 NotePatient: Petar Alcocer Procedure Information Date/Time: 04/01/24929 Procedure: CLOSED REDUCTION PERCUTANEOUS PINNING LEFT RING FINGER DISTAL PHALANX FRACTURE (Left: Hand) - 45 minutes Location: [address] Operating Room Surgeons: Trent Alas MD Relevant Problems No relevant active problems Past Medical History: Past Medical History: No date: Asthma Comment: in childhood No date: Bipolar 1 disorder (HCC) No date: Chronic kidney disease Comment: cancer No date: History of heart attack No date: Migraine No date: Myocardial infarction (HCC) No date: PTSD (post-traumatic stress disorder) No date: Seizures (HCC) Comment: in childhood No date: Stroke (HCC) No date: Tendonitis Past Surgical History: Past Surgical History: No date: CARPAL TUNNEL RELEASE; Bilateral No date: SECTION, LOW TRANSVERSE Comment: x2 No date: CHOLECYSTECTOMY No date: COLONOSCOPY No date: HYSTERECTOMY No date: OTHER SURGICAL HISTORY; Left Comment: foot and leg No date: UPPER GASTROINTESTINAL ENDOSCOPY Social History: TOBACCO: reports that she has been smoking cigarettes. She started smoking about 40 years ago. She has a 60.2 pack-year smoking history. She does not have any smokeless tobacco history on file. ETOH: reports current alcohol use. Social History Substance and Sexual Activity Drug Use Yes Types: Marijuana Comment: History of crack cocaine use-uses THC for migraines Family History: No family history on file. Screening: Hysterectomy Clinical information reviewed: Tobacco Allergies Meds Med Hx Surg Hx OB Status Fam Hx Soc Hx Physical Exam Airway Mallampati: II TM distance: >3 FB Neck ROM: full Mouth Open: normal Cardiovascular Dental dentition normal Pulmonary Abdominal Anesthesia Plan patient is NPO appropriate Any family history or previous problems with anesthesia no ASA 3 TIVA Any family history or previous problems with anesthesia no The patient is a current smoker. Patient was previously instructed to abstain from smoking on day of procedure. Patient did not smoke on day of procedure. Anesthetic plan and risks discussed with patient. YUNG Screening Labs: Lab Results Component Value Date WBC 6.6 05/21/2022 HGB 15.4 05/21/2022 HCT 43.8 05/21/2022 MCV 91.4 05/21/2022 PLT 240 05/21/2022 Lab Results Component Value Date NA 140 05/21/2022 K 3.9 05/21/2022 CL 109 (H) 05/21/2022 CO2 27 05/21/2022 BUN 19 (H) 05/21/2022 CREATININE 0.72 05/21/2022 GLUCOSE 84 05/21/2022 CALCIUM 9.7 05/21/2022 PROT 7.8 01/02/2020 ALKPHOS 122 01/02/2020 AST 19 01/02/2020 EGFR >90.0 05/21/2022 Pain Score: Scheduled No echocardiogram results found for the past 14 days 05/21/22 ECG 12-LEAD 05/21/2022 6:35 PM (Final) Impression Sinus rhythm Compared to ECG 10/19/2020 16:10:06 No significant changes Electronically Signed On 05-21-2022 18:35:28 EDT by Ángel Maddox Signed by: Ángel Maddox on 05/21/2022 6:35 PM Equipment Requests: [facility] History and physical note* Francine Medeiros PA-C - 04/01/2024 8:21 AM EST [facility] Pre-Surgical History and Physical Name: Brittney Alcocer : 1975 (Age-49 y.o.) Date of Service: Pt seen/examined on 04/01/2024 Chief Complaint: 49 y.o. female who we are asked to see/evaluate Brittney Alcocer for pre- procedure evaluation prior to Procedure Information Date/Time: 04/01/24929 Procedure: CLOSED REDUCTION PERCUTANEOUS PINNING LEFT RING FINGER DISTAL PHALANX FRACTURE (Left: Hand) - 45 minutes Location: [address] Operating Room Surgeons: Trent Alas MD History Of Present Illness: HPI: Pt here for Closed reduction percutaneous pinning left ring finger distal phalanx fracture. Patient is resting comfortably in bed and is speaking in full sentences. BP 107/71 Pulse 72 Temp 36.5 C (97.7 F) (Temporal) Resp 16 Wt 81.6 kg (180 lb) SpO2 96% BMI 37.62 kg/m Past Medical History: Diagnosis Date Asthma in childhood Bipolar 1 disorder (HCC) Chronic kidney disease cancer History of heart attack Migraine Myocardial infarction (HCC) PTSD (post-traumatic stress disorder) Seizures (HCC) in childhood Stroke (HCC) Tendonitis Patient Active Problem List Diagnosis Date Noted Subjective visual disturbance of both eyes 04/08/2019 Pain and swelling of eyelid of right eye 04/08/2019 Combined forms of age-related cataract of both eyes 04/08/2019 Hyperopia of both eyes 04/08/2019 Auditory hallucination 12/10/2017 Past Surgical History: Procedure Laterality Date CARPAL TUNNEL RELEASE Bilateral SECTION, LOW TRANSVERSE x2 CHOLECYSTECTOMY COLONOSCOPY HYSTERECTOMY OTHER SURGICAL HISTORY Left foot and leg UPPER GASTROINTESTINAL ENDOSCOPY No family history on file. Medications: Prior to Admission medications Medication Sig Start Date End Date Taking? Authorizing Provider acetaminophen (Tylenol) 500 MG tablet Take 1,000 mg by mouth every 8 hours as needed for mild pain (1-3). Yes Historical Provider, atorvastatin (Lipitor) 40 MG tablet Take 40 mg by mouth daily. Yes Historical Provider, GABAPENTIN PO Take by mouth 4 times daily. Yes Historical Provider, lansoprazole (Prevacid) [address] capsule Take 30 mg by mouth 2 times daily. Do not crush or chew. Yes Historical Provider, Loratadine (CLARITIN PO) Take 10 mg by mouth daily. Yes Historical Provider, Myrbetriq 50 MG 24 hr tablet Take 50 mg by mouth daily. 03/26/24 Yes Historical Provider, ondansetron (Zofran) 8 MG tablet Take by mouth as needed for nausea or vomiting. Yes Historical Provider, simvastatin (Zocor) 20 MG tablet Take 20 mg by mouth 2 times daily. 03/26/24 Yes Historical Provider, Ajovy 225 MG/1.5ML auto-injector Inject 1.5 mL subcutaneously once every month. Do not shake. 03/07/24 Historical Provider, albuterol 108 (90 Base) MCG/ACT inhaler Inhale 2 puffs every 4 hours as needed for wheezing or shortness of breath. Historical Provider, Atorvastatin Calcium (LIPITOR PO) Take by mouth. Historical Provider, cyclobenzaprine (Flexeril) 10 MG tablet Take 1 tablet (10 mg) by mouth Nightly for 10 days. Patient not taking: Reported on 03/31/2024 05/21/22 05/31/22 Binta Vidal MD divalproex (Depakote ER) 500 MG 24 hr tablet With infusion for migraine 07/12/23 Historical Provider, famotidine (Pepcid) 10 MG tablet Take by mouth. Patient not taking: Reported on 04/01/2024 Historical Provider, methylPREDNISolone (Medrol) 4 MG tablet Take 4 mg by mouth daily. Patient not taking: Reported on 04/01/2024 Historical Provider, onabotulinumtoxinA (Botox) 100 units injection Inject into the shoulder, thigh, or buttocks Once. Historical Provider, Rimegepant Sulfate (Nurtec) 75 MG tablet dispersible Take by mouth as needed. Historical Provider, Social history and Laboratory Data: Social History Tobacco Use Smoking Status Every Day Current packs/day: 1.50 Average packs/day: 1.5 packs/day for 40.2 years (60.2 ttl pk-yrs) Types: Cigarettes Start date: 1984 Smokeless Tobacco Not on file Tobacco Comments Has cut smoking back for surgery Social History Substance and Sexual Activity Alcohol Use Yes Comment: occasional Social History Substance and Sexual Activity Drug Use Yes Types: Marijuana Comment: History of crack cocaine use-uses THC for migraines Lab Results Component Value Date WBC 6.6 05/21/2022 HGB 15.4 05/21/2022 HCT 43.8 05/21/2022 MCV 91.4 05/21/2022 PLT 240 05/21/2022 Lab Results Component Value Date NA 140 05/21/2022 K 3.9 05/21/2022 CL 109 (H) 05/21/2022 CO2 27 05/21/2022 BUN 19 (H) 05/21/2022 CREATININE 0.72 05/21/2022 GLUCOSE 84 05/21/2022 CALCIUM 9.7 05/21/2022 PROT 7.8 01/02/2020 BILITOT 0.5 01/02/2020 ALKPHOS 122 01/02/2020 AST 19 01/02/2020 Review of systems negative except for what is noted in HPI and medical history. See Anesthesia Pre-op on the Day of Surgery for the completed Physical Exam. ASSESSMENT/PLAN: 1) Closed reduction percutaneous pinning left ring finger distal phalanx fracture Electronically signed by: Francine Medeiros PA-C, Date: 04/01/2024 at 8:21 AM Cosigned by Trent Alas MD at 04/01/2024 8:44 AM EST Associated attestation - Trent Alas MD - 04/01/2024 8:44 AM EST Agree with above history and physical. Plan today to proceed with left ring finger distal phalanx fracture closed reduction and percutaneous pin fixation. Risk, benefits, and alternatives to surgicaltreatment reviewed with patient and all questions answered to the best my ability today. Patient agreed to proceed with planned procedure and informed consent was signed prior to surgery. Patient will follow-up at scheduled postoperative visit outpatient. Trent Alas MD Orthopedic Hand and Upper Extremity Surgery [facility] Department of Orthopaedics [id number] Note Attestation signed by Trent Alas MD at 04/01/2024 8:44 AM Agree with above history and physical. Plan today to proceed with left ring finger distal phalanx fracture closed reduction and percutaneous pin fixation. Risk, benefits, and alternatives to surgical treatment reviewed with patient and all questions answered to the best my ability today. Patient agreed to proceed with planned procedure and informed consent was signed prior to surgery. Patient will follow-up at scheduled postoperative visit outpatient. Trent Alas MD Orthopedic Hand and Upper Extremity Surgery [facility] Department of Orthopaedics [facility] Pre-Surgical History and Physical Name: Brittney Alcocer : 1975 (Age-49 y.o.) Date of Service: Pt seen/examined on 04/01/2024 Chief Complaint: 49 y.o. female who we are asked to see/evaluate Brittney Alcocer for pre-procedure evaluation prior to Procedure Information Date/Time: 04/01/24 09 Procedure: CLOSED REDUCTION PERCUTANEOUS PINNING LEFT RING FINGER DISTAL PHALANX FRACTURE (Left: Hand) - 45 minutes Location: [address] Operating Room Surgeons: Trent Alas MD History Of Present Illness: HPI: Pt here for Closed reduction percutaneous pinning left ring finger distal phalanx fracture. Patient is resting comfortably in bed and is speaking in full sentences. BP 107/71 Pulse 72 Temp 36.5 ?C (97.7 ?F) (Temporal) Resp 16 Wt 81.6 kg (180 lb) SpO2 96% BMI 37.62 kg/m? Past Medical History: Diagnosis Date Asthma in childhood Bipolar 1 disorder (HCC) Chronic kidney disease cancer History of heart attack Migraine Myocardial infarction (HCC) PTSD (post-traumatic stress disorder) Seizures (HCC) in childhood Stroke (HCC) Tendonitis Patient Active Problem List Diagnosis Date Noted Subjective visual disturbance of both eyes 04/08/2019 Pain and swelling of eyelid of right eye 04/08/2019 Combined forms of age-related cataract of both eyes 04/08/2019 Hyperopia of both eyes 04/08/2019 Auditory hallucination 12/10/2017 Past Surgical History: Procedure Laterality Date CARPAL TUNNEL RELEASE Bilateral SECTION, LOW TRANSVERSE x2 CHOLECYSTECTOMY COLONOSCOPY HYSTERECTOMY OTHER SURGICAL HISTORY Left foot and leg UPPER GASTROINTESTINAL ENDOSCOPY No family history on file. Medications: Prior to Admission medications Medication Sig Start Date End Date Taking? Authorizing Provider acetaminophen (Tylenol) 500 MG tablet Take 1,000 mg by mouth every 8 hours as needed for mild pain (1-3). Yes Historical Provider, atorvastatin (Lipitor) 40 MG tablet Take 40 mg by mouth daily. Yes Historical Provider, GABAPENTIN PO Take by mouth 4 times daily. Yes Historical Provider, lansoprazole (Prevacid) [address] capsule Take 30 mg by mouth 2 times daily. Do not crush or chew. Yes Historical Provider, Loratadine (CLARITIN PO) Take 10 mg by mouth daily. Yes Historical Provider, Myrbetriq 50 MG 24 hr tablet Take 50 mg by mouth daily. 03/26/24 Yes Historical Provider, ondansetron (Zofran) 8 MG tablet Take by mouth as needed for nausea or vomiting. Yes Historical Provider, simvastatin (Zocor) 20 MG tablet Take 20 mg by mouth 2 times daily. 03/26/24 Yes Historical Provider, Ajovy 225 MG/1.5ML auto-injector Inject 1.5 mL subcutaneously once every month. Do not shake. 03/07/24 Historical ProviderMD albuterol 108 (90 Base) MCG/ACT inhaler Inhale 2 puffs every 4 hours as needed for wheezing or shortness of breath. Historical Provider, Atorvastatin Calcium (LIPITOR PO) Take by mouth. Historical Provider, cyclobenzaprine (Flexeril) 10 MG tablet Take 1 tablet (10 mg) by mouth Nightly for 10 days. Patient not taking: Reported on 03/31/2024 05/21/22 05/31/22 Binta Vidal MD divalproex (Depakote ER) 500 MG 24 hr tablet With infusion for migraine 07/12/23 Historical Provider, famotidine (Pepcid) 10 MG tablet Take by mouth. Patient not taking: Reported on 04/01/2024 Historical ProviderMD methylPREDNISolone (Medrol) 4 MG tablet Take 4 mg by mouth daily. Patient not taking: Reported on 04/01/2024 Historical Provider, onabotulinumtoxinA (Botox) 100 units injection Inject into the shoulder, thigh, or buttocks Once. Historical Provider, Rimegepant Sulfate (Nurtec) 75 MG tablet dispersible Take by mouth as needed. Historical ProviderMD Social history and Laboratory Data: Social History Tobacco Use Smoking Status Every Day Current packs/day: 1.50 Average packs/day: 1.5 packs/day for 40.2 years (60.2 ttl pk-yrs) Types: Cigarettes Start date: 1984 Smokeless Tobacco Not on file Tobacco Comments Has cut smoking back for surgery Social History Substance and Sexual Activity Alc (more content not included)...[facility] History and physical note* Francine Medeiros PA-C - 04/01/2024 8:21 AM EST [facility] Pre-Surgical History and Physical Name: Brittney Alcocer : 1975 (Age-49 y.o.) Date of Service: Pt seen/examined on 04/01/2024 Chief Complaint: 49 y.o. female who we are asked to see/evaluate Brittney Alcocer for pre- procedure evaluation prior to Procedure Information Date/Time: 04/01/24929 Procedure: CLOSED REDUCTION PERCUTANEOUS PINNING LEFT RING FINGER DISTAL PHALANX FRACTURE (Left: Hand) - 45 minutes Location: [address] Operating Room Surgeons: Trent Alas MD History Of Present Illness: HPI: Pt here for Closed reduction percutaneous pinning left ring finger distal phalanx fracture. Patient is resting comfortably in bed and is speaking in full sentences. BP 107/71 Pulse 72 Temp 36.5 C (97.7 F) (Temporal) Resp 16 Wt 81.6 kg (180 lb) SpO2 96% BMI 37.62 kg/m Past Medical History: Diagnosis Date Asthma in childhood Bipolar 1 disorder (HCC) Chronic kidney disease cancer History of heart attack Migraine Myocardial infarction (HCC) PTSD (post-traumatic stress disorder) Seizures (HCC) in childhood Stroke (HCC) Tendonitis Patient Active Problem List Diagnosis Date Noted Subjective visual disturbance of both eyes 04/08/2019 Pain and swelling of eyelid of right eye 04/08/2019 Combined forms of age-related cataract of both eyes 04/08/2019 Hyperopia of both eyes 04/08/2019 Auditory hallucination 12/10/2017 Past Surgical History: Procedure Laterality Date CARPAL TUNNEL RELEASE Bilateral SECTION, LOW TRANSVERSE x2 CHOLECYSTECTOMY COLONOSCOPY HYSTERECTOMY OTHER SURGICAL HISTORY Left foot and leg UPPER GASTROINTESTINAL ENDOSCOPY No family history on file. Medications: Prior to Admission medications Medication Sig Start Date End Date Taking? Authorizing Provider acetaminophen (Tylenol) 500 MG tablet Take 1,000 mg by mouth every 8 hours as needed for mild pain (1-3). Yes Historical Provider, atorvastatin (Lipitor) 40 MG tablet Take 40 mg by mouth daily. Yes Historical Provider, GABAPENTIN PO Take by mouth 4 times daily. Yes Historical Provider, lansoprazole (Prevacid) [address] capsule Take 30 mg by mouth 2 times daily. Do not crush or chew. Yes Historical Provider, Loratadine (CLARITIN PO) Take 10 mg by mouth daily. Yes Historical Provider, Myrbetriq 50 MG 24 hr tablet Take 50 mg by mouth daily. 03/26/24 Yes Historical Provider, ondansetron (Zofran) 8 MG tablet Take by mouth as needed for nausea or vomiting. Yes Historical Provider, simvastatin (Zocor) 20 MG tablet Take 20 mg by mouth 2 times daily. 03/26/24 Yes Historical Provider, Ajovy 225 MG/1.5ML auto-injector Inject 1.5 mL subcutaneously once every month. Do not shake. 03/07/24 Historical Provider, albuterol 108 (90 Base) MCG/ACT inhaler Inhale 2 puffs every 4 hours as needed for wheezing or shortness of breath. Historical Provider, Atorvastatin Calcium (LIPITOR PO) Take by mouth. Historical Provider, cyclobenzaprine (Flexeril) 10 MG tablet Take 1 tablet (10 mg) by mouth Nightly for 10 days. Patient not taking: Reported on 03/31/2024 05/21/22 05/31/22 Binta Vidal MD divalproex (Depakote ER) 500 MG 24 hr tablet With infusion for migraine 07/12/23 Historical Provider, famotidine (Pepcid) 10 MG tablet Take by mouth. Patient not taking: Reported on 04/01/2024 Historical ProviderMD methylPREDNISolone (Medrol) 4 MG tablet Take 4 mg by mouth daily. Patient not taking: Reported on 04/01/2024 Historical ProviderMD onabotulinumtoxinA (Botox) 100 units injection Inject into the shoulder, thigh, or buttocks Once. Historical Provider, Rimegepant Sulfate (Nurtec) 75 MG tablet dispersible Take by mouth as needed. Historical ProviderMD Social history and Laboratory Data: Social History Tobacco Use Smoking Status Every Day Current packs/day: 1.50 Average packs/day: 1.5 packs/day for 40.2 years (60.2 ttl pk-yrs) Types: Cigarettes Start date: 1984 Smokeless Tobacco Not on file Tobacco Comments Has cut smoking back for surgery Social History Substance and Sexual Activity Alcohol Use Yes Comment: occasional Social History Substance and Sexual Activity Drug Use Yes Types: Marijuana Comment: History of crack cocaine use-uses THC for migraines Lab Results Component Value Date WBC 6.6 05/21/2022 HGB 15.4 05/21/2022 HCT 43.8 05/21/2022 MCV 91.4 05/21/2022 PLT 240 05/21/2022 Lab Results Component Value Date NA 140 05/21/2022 K 3.9 05/21/2022 CL 109 (H) 05/21/2022 CO2 27 05/21/2022 BUN 19 (H) 05/21/2022 CREATININE 0.72 05/21/2022 GLUCOSE 84 05/21/2022 CALCIUM 9.7 05/21/2022 PROT 7.8 01/02/2020 BILITOT 0.5 01/02/2020 ALKPHOS 122 01/02/2020 AST 19 01/02/2020 Review of systems negative except for what is noted in HPI and medical history. See Anesthesia Pre-op on the Day of Surgery for the completed Physical Exam. ASSESSMENT/PLAN: 1) Closed reduction percutaneous pinning left ring finger distal phalanx fracture Electronically signed by: Francine Medeiros PA-C, Date: 04/01/2024 at 8:21 AM Cosigned by Trent Alas MD at 04/01/2024 8:44 AM EST Associated attestation - Trent Alas MD - 04/01/2024 8:44 AM EST Agree with above history and physical. Plan today to proceed with left ring finger distal phalanx fracture closed reduction and percutaneous pin fixation. Risk, benefits, and alternatives to surgicaltreatment reviewed with patient and all questions answered to the best my ability today. Patient agreed to proceed with planned procedure and informed consent was signed prior to surgery. Patient will follow-up at scheduled postoperative visit outpatient. Trent Alas MD Orthopedic Hand and Upper Extremity Surgery [facility] Department of Orthopaedics documented in this encounterSRegional Medical [id number] Telephone encounter Note* Telephone Encounter - Francine Medeiros PA-C - 03/31/2024 4:42 PM EST PAT orders signed, thanks! [facility] [employer] Work Phone: [phone] Miscellaneous Notes* Telephone Encounter - Francine Medeiros PA-C - 03/31/2024 4:42 PM EST PAT orders signed, thanks! * Telephone Encounter - Kathryn Alamo - 03/27/2024 2:00 PM EST Called patient to give PAT day of Sunday03/31/24 @ 9:30am phone call. Gave tentative arrival time of 7:30am and sx to start @ 9:30am. Let her know surgery times are subject to change and she will be made aware if so. Patient confirmed and had no further questions. * Telephone Encounter - Kathryn Alamo - 03/27/2024 11:04 AM EST Sent to sx scheduling * Telephone Encounter - Kathryn Alamo - 03/27/2024 9:26 AM EST Images from the original note were not included. Checked [facility]- NAN * Telephone Encounter - Kathryn Alamo - 03/27/2024 9:05 AM EST ----- Message from Francine Medeiros PA-C sent at 03/27/2024 8:24 AM EST ----- ALAS SURGERY SCHEDULING SLIP Patient: Brittney Alcocer Date of : 1975 Date of Surgery: 04/01/2024 9:30am arrive @ 7:30am [facility] [place] Duration: 45min Type: Outpatient PAT: Yes, virtual 03/31/24 @ 9:30am call Med Clearance: No Anesthesia: MAC/local Block: None Position: Supine Table: Stretcher Arm Board: Roll-up arm table Radiology: Small C-Arm CPT Code: 82774 Dx code: S62.635D Case #: [id number] Consent: Closed reduction percutaneous pinning left ring finger distal phalanx fracture FollowUp: Waldemar in 10-14 days 04/10/24 @ 9am @ [facility] with kt ( ok 9 days per alas) XRays: Yes, 2V left ring finger OT Splint needed at first PO appointment: no Special Requests Hand tray K wires, 3.5 and 4.5 available but not open Power Sterile coban 2 inch Yellow pin covers Small Adaptic documented in this encounterSRegional Medical [id number] Telephone encounter Note* Telephone Encounter - Kathryn Alamo - 03/27/2024 2:00 PM EST Called patient to give PAT day of Sunday03/31/24 @ 9:30am phone call. Gave tentative arrival time of 7:30am and sx to start @ 9:30am. Let her know surgery times are subject to change and she will be made aware if so. Patient confirmed and had no further questions. [facility] [id number] Telephone encounter Note* Telephone Encounter - Kathryn Alamo - 03/27/2024 11:04 AM EST Sent to sx scheduling [facility] [id number] Telephone encounter Note* Telephone Encounter - Kathryn Alamo - 03/27/2024 9:26 AM EST Images from the original note were not included. Checked [facility]- NAN [facility] [id number] Telephone encounter Note* Telephone Encounter - Kathryn Alamo - 03/27/2024 9:05 AM EST ----- Message from Francine Medeiros PA-C sent at 03/27/2024 8:24 AM EST ----- ALAS SURGERY SCHEDULING SLIP Patient: Brittney Alcocer Date of : 1975 Date of Surgery: 04/01/2024 9:30am arrive @ 7:30am Day of Surgery: [facility]: [place] Duration: 45min Type: Outpatient PAT: Yes, virtual 03/31/24 @ 9:30am call Med Clearance: No Anesthesia: MAC/local Block: None Position: Supine Table: Stretcher Arm Board: Roll-up arm table Radiology: Small C-Arm CPT Code: 60359 Dx code: S62.635D Case #: [id number] Consent: Closed reduction percutaneous pinning left ring finger distal phalanx fracture FollowUp: Waldemar in 10-14 days 04/10/24 @ 9am @ [facility] with kt ( ok 9 days per bishop) XRays: Yes, 2V left ring finger OT Splint needed at first PO appointment: no Special Requests Hand tray K wires, 3.5 and 4.5 available but not open Power Sterile coban 2 inch Yellow pin covers Small Adaptic [facility] [id number] History of Present illness Narrative* Trent Alas MD - 03/27/2024 8:00 AM EST Images from the original note were not included. [facility] [place] [address] [place] [address] [place] [address] Dept: [phone] Dept 03/27/2024 Chief Complaint Patient presents with Post-op Closed nondisplaced fracture of distal phalanx of left ring finger DOI 02/22/2024 SUBJECTIVE Brittney is approximately 1 month(s) s/p Closed nondisplaced fracture of distal phalanx of left ring finger . Pain is moderate. She is taking tylenol for pain relief. She denies numbness and tingling. She denies drainage from her incision. She denies significant complaints other than the expected amount of pain. She says she has been using her left ring finger stack splint most of the time. She does report she has cut back on use of tobacco cigarettes. She denies any recent injuries. Does notecontinued swelling and pain about the distal aspect of her left ring finger OBJECTIVE Ht 4' 10 (1.473 m) Wt 182 lb (82.6 kg) BMI 38.04 kg/m Ortho Exam Focused Exam of the LEFT Upper Extremity Skin: intact without any evidence of breakdown Edema: moderate edema surrounding the left ring finger distal phalanx Palpation: tender to palpation over the left ring finger distal phalanx ROM: Patient able to fully extend all fingers. Able to fully flex all fingers aside from ring finger DIP joint expectedly stiff, likely secondary to fracture Stability: no evidence of joint instabilities Motor: Intact in the hand - able to fire AIN, PIN, and Ulnar nerves Sensation: normal in the median, ulnar, and radial nerve distributions Perfusion: Brisk capillary refill in all 5 digits LEFT ring finger MCP (nl 0-45 H/90 ) PIP (nl 0 /100 ) DIP (nl 0 -80 ) Tip to Palm EXTENSION 0 0 0 FLEXION 90 100 Limited due to known fracture Not assessed due to known fracture *(Passive values entered only if different than active; otherwise = AROM) IMAGING LEFT Ring Finger 2V were obtained today and independently reviewed by myself and demonstrate a displaced extra-articular transverse fracture of the distal phalanx that is significantly more displacedthan previous x-rays as well as apex volarly angulated. Minimal to no bony healing noted at the fracture site as well. ASSESSMENT 1. Closed displaced fracture of distal phalanx of left ring finger with routine healing, subsequentencounter XR fingers 2+ views left SUNIL Beard has been undergoing closed treatment of left ring finger distal phalanx fracture for approximately the past month. Unfortunately on x-rays today she has increased displacement and angulation of the fracture noted with minimal signs of healing. We discussed treatment options including continued closed treatment versus surgical treatment in the form of closed reduction and percutaneous pin placement. The risk and benefits of treatment options as well as alternatives of surgical treatment options discussed with the patient thoroughly. Patient was able to ask questions and they were answered to best my ability today. Ultimately recommendation was made for surgical treatment. Brittney elected to proceed with operative management to include left ring finger closed reductionand percutaneous pin placement. I couselled Brittney and any family members present regarding the risks of surgical intervention which include but are not limited to the risks of injury to normal neurovascular and local anatomic structures, persistent pain and disability, unsightly scar, wound healing complications, postoperative stiffness, need for revision surgery, infection, malunion, nonunion, painful hardware, CRPS, myocardial infarction, deep vein thrombosis, pulmonary embolism, and evendeath. I feel that Ms. Brittney Alcocer does understand our discussion today and she is comfortable providing informed consent for the procedure. Patient will be scheduled for surgery on an outpatient basis for this coming Sunday. Immobilization: Stax splint to be worn at all times Weight Bearing: Non Weight Bearing left ring finger Rehabilitation: NO formal rehabilitation required at this point. Follow-up: Brittney will followup with my physician therapeutic recreation assistant, Francine Medeiros PA-C 10 to 14 days post operatively. She knows to call the office with any questions or concerns in the interim. Future Imaging: LEFT Ring Finger 2V out of splint Trent Alas, MD Orthopedic Hand and Upper Extremity Surgery [facility] Department of Orthopaedics 03/27/2024 at 8:01 AM (Please note that portions of this note may have been completed with a voice recognition program. Efforts were made to edit the dictations but occasionally words are mis-transcribed.) documented in this [facility]02-06-2025 NoteHNO ID: [id number] Author: WM BARR RN Service: ? Author Type: Registered Nurse Type: Progress Notes Filed: 03/13/2024 14:19 Note Text: Pt in for 3rd day of infusion. Pt rated headache 4/10. Pt has mild nausea and no dizziness. Educated pt on medications to be administered. Pt agreed to proceed as ordered. 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 Zofran given for mild nausea. Pts infusion complete, tolerated infusion. Headache 2/10. Pt stated mild nausea and no dizziness. 2nd dose of prn Zofran given prior to d/c. Pt discharged from txt room at 1409.[facility]02-06-2025 NoteHNO ID: [id number] Author: DEBBIE ARMAS APRN.GASOLINE LOCOMOTIVE CRANE OPERATOR Service: ? Author Type: Nurse Practitioner Type: Progress Notes Filed: 03/13/2024 14:52 Note Text: [facility] Note Subjective: Brittney Alcocer is a 49 year old year old female presenting for day 3 of infusions. Therapy Plan: zofran magnesium robaxin valproate New health conditions since orders were placed: No Cardiovascular risk factors: Myocardial Infarction and Stroke Triptan dose in the last 24 hours: No Last muscle relaxer dose: No Last NSAID dose: No Response to infusions: Patient tolerating infusion without side effects. Current Preventative: Botox,Gabapentin,Ajovy Current Abortive: Nurtec Labs: Latest Ref Rng AND Units 12/28/2023 CBC WBC 3.70 - 11.00 k/uL 6.99 RBC 3.90 - 5.20 m/uL 4.72 Hemoglobin 11.5 - 15.5 g/dL 15.1 Hematocrit 36.0 - 46.0 % 46.1 MCV 80.0 - 100.0 fL 97.7 MCH 26.0 - 34.0 pg 32.0 MCHC 30.5 - 36.0 g/dL 32.8 RDW-CV 11.5 - 15.0 % 12.9 Platelet Count 150 - 400 k/uL 243 MPV 9.0 - 12.7 fL 10.2 Latest Ref Rng AND Units 12/28/2023 CMP Sodium 136 - 144 mmol/L 142 Potassium 3.7 - 5.1 mmol/L 4.1 Chloride 98 - 107 mmol/L 106 CO2 22 - 30 mmol/L 27 Glucose 74 - 99 mg/dL 91 BUN 7 - 21 mg/dL 13 Creatinine 0.58 - 0.96 mg/dL 0.82 EGFR >=60 mL/min/1.73m? 88 Protein, Total 6.3 - 8.0 g/dL 7.5 Albumin 3.9 - 4.9 g/dL 4.5 Calcium 8.5 - 10.2 mg/dL 9.7 Bilirubin, Total 0.2 - 1.3 mg/dL 0.4 AST 13 - 35 U/L 17 ALT 7 - 38 U/L 16 Alkaline Phosphatase 34 - 123 U/L 116 ALLERGIES Allergen Reactions Citalopram Hydrobro* Anaphylaxis TACHYCARDIA Morphine GI Upset Amoxicillin GI Upset, Other: See Comments Makes me worse Asa [Salicylates] Hives Chocolate Effexor [Venlafaxin* Vomiting Naproxen Intolerance Depression Penicillin G GI Upset Tape [Adhesive Tape* Other: See Comments Rash Tomato Intolerance If cooked cant tolerate them Tramadol GI Upset Trazodone Mental Status Change Causes hallucinations Venlafaxine Unknown Current Medications: ondansetron orally disintegrating (ZOFRAN ODT) 8 mg disintegrating tabletTake 1 tablet by mouth every 8 hours as needed for nausea/vomiting.Disp: 60 tabletRfl: 1 rimegepant (NURTEC ODT) 75 mg disintegrating tabletTake 1 tablet at onset of headache/migraine. Only take 1 tablet as single dose in 24 hour period.Disp: 8 tabletRfl: 11 albuterol HFA (PROVENTIL HFA, VENTOLIN HFA) 90 mcg/actuation inhalerInhale 2 Puffs as instructed every 4 hours as needed for wheezing/shortness of breath.Disp: 1 EachRfl: 11 mirabegron (MYRBETRIQ) 50 mg Sl03Oxad 1 tablet by mouth once daily.Disp: 30 tabletRfl: 5 fremanezumab-vfrm subcutaneus auto-injector 225 mg/1.5 mL (AJOVY)Inject 1.5 mL subcutaneously once every month. Do not shake.Disp: 1.5 mLRfl: 11 lansoprazole (PREVACID) 30 mg capsuleTake 1 capsule by mouth two times a day.Disp: 60 capsuleRfl: 0 simvastatin (ZOCOR) 20 mg tabletTake 2 tablets by mouth daily at bedtime.Disp: 180 tabletRfl: 3 gabapentin (NEURONTIN) 800 mg tabletTake 1 tablet by mouth four times daily for 180 days.Disp: 120 tabletRfl: 5 loratadine (CLARITIN) 10 mg tablettake 1 tablet by mouth once dailyDisp: 28 tabletRfl: 11 MEDICATION, NON-DATABASEMarijuana for migrainesDisp: Rfl: Review of Systems: Review of system: Patient reports no change from the prior visit. Objective: VS: see infusion note for vital signs General: well appearing, in no acute distress, alert Lungs: normal breath sounds bilaterally CV: RRR, normal S1, S2 auscultated, no murmurs, and no JVD GI: Bowel sounds present in all four quadrants - Yes Neurological: Pain Behaviors: no pain behaviors observed Mental Status: Alert and oriented to person, place and time. Affect is normal and appropriate. Speech is spontaneous and fluent without dysarthria, normal in rate, volume and articulation, and clear, coherent, and relevant. Short and snf memory, cognition and general fund of knowledge are good. Attention span and concentration are good. Cranial Nerves: VII-face is symmetric without evidence of weakness. VIII-hearing intact. Assessment: No diagnosis found. Plan: Brittney Alcocer is a 49 year old year old female, with a history of chronic migraine, stroke, KS,chronic pain syndrome, TMJD, concussion, peptic ulcer, hypothyroid, asthma, pelvic pain, renal stones and insomnia following up today for day 3 of infusions. Follow up plan: Resume previous at home medications. [facility] Follow-up Visit Current Preventive: Botox, Ajovy, Gabapentin Current Abortive: Nurtec Miscellaneous Patient Concerns: Last 3 weeks headaches are increased Impression: Chronic migraine without aura, intractable, without status migrainosus (primary encounter diagnosis) Brittney Alcocer has been previously approved for Calcitonin Gene Related Peptide Monoclonal Antibody (CGRP MAB) (Fremanezumab). The patient briceno (more content not included)...[facility]02-05-2025 NoteHNO ID: [id number] Author: LEYLA LYON RN Service: ? Author Type: Registered Nurse Type: Progress Notes Filed: 03/12/2024 09:35 Note Text: 0723: Patient in for second day of IV infusions. Patient rated headache 6/10. Patient stated severe nausea and denied dizziness. Patient educated on medications to be administered. Patient verbalized understanding and agreed to proceed with infusions. 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 She would like PRN Benadryl for sedation. 0933: Pts infusions complete. Pt tolerated infusion well. Pt rated headache 3/10. Pt stated mild nausea and denied dizziness. PRN zofran administered. Pt discharged from treatment room via wheelchair to main [facility]02-04-2025 NoteHNO ID: [id number] Author: LEYLA LYON RN Service: ? Author Type: Registered Nurse Type: Progress Notes Filed: 03/11/2024 11:30 Note Text: 1028: Pts infusions complete. Pt tolerated infusion well. Pt rated headache 6/10. Pt stated mild nausea and denied dizziness. PRN zofran administered. Pt discharged from treatment room via wheelchair to her ride in the front round[place].[facility]02-04-2025 NoteHNO ID: [id number] Author: NEGRO MARTI APRN.GASOLINE LOCOMOTIVE CRANE OPERATOR Service: ? Author Type: Nurse Practitioner Type: Progress Notes Filed: 03/11/2024 08:36 Note Text: [facility] Note Subjective: Brittney Alcocer is a 49 year old year old female presenting for day 1 of infusions. Therapy Plan: Zofran Mag (2g) Robaxin Depacon PRN- pepcid, benadryl New health conditions since orders were placed: No Cardiovascular risk factors: Myocardial Infarction and Stroke 2000 Triptan dose in the last 24 hours: No Last muscle relaxer dose: No Last NSAID dose: No Response to infusions: Patient tolerating infusion without side effects. Current Preventative: botox, gabapentin, ajovy Current Abortive: nurtec Labs: Latest Ref Rng AND Units 12/28/2023 CBC WBC 3.70 - 11.00 k/uL 6.99 RBC 3.90 - 5.20 m/uL 4.72 Hemoglobin 11.5 - 15.5 g/dL 15.1 Hematocrit 36.0 - 46.0 % 46.1 MCV 80.0 - 100.0 fL 97.7 MCH 26.0 - 34.0 pg 32.0 MCHC 30.5 - 36.0 g/dL 32.8 RDW-CV 11.5 - 15.0 % 12.9 Platelet Count 150 - 400 k/uL 243 MPV 9.0 - 12.7 fL 10.2 Latest Ref Rng AND Units 12/28/2023 CMP Sodium 136 - 144 mmol/L 142 Potassium 3.7 - 5.1 mmol/L 4.1 Chloride 98 - 107 mmol/L 106 CO2 22 - 30 mmol/L 27 Glucose 74 - 99 mg/dL 91 BUN 7 - 21 mg/dL 13 Creatinine 0.58 - 0.96 mg/dL 0.82 EGFR >=60 mL/min/1.73m? 88 Protein, Total 6.3 - 8.0 g/dL 7.5 Albumin 3.9 - 4.9 g/dL 4.5 Calcium 8.5 - 10.2 mg/dL 9.7 Bilirubin, Total 0.2 - 1.3 mg/dL 0.4 AST 13 - 35 U/L 17 ALT 7 - 38 U/L 16 Alkaline Phosphatase 34 - 123 U/L 116 ALLERGIES Allergen Reactions Citalopram Hydrobro* Anaphylaxis TACHYCARDIA Morphine GI Upset Amoxicillin GI Upset, Other: See Comments Makes me worse Asa [Salicylates] Hives Chocolate Effexor [Venlafaxin* Vomiting Naproxen Intolerance Depression Penicillin G GI Upset Tape [Adhesive Tape* Other: See Comments Rash Tomato Intolerance If cooked cant tolerate them Tramadol GI Upset Trazodone Mental Status Change Causes hallucinations Venlafaxine Unknown Current Medications: ondansetron orally disintegrating (ZOFRAN ODT) 8 mg disintegrating tabletTake 1 tablet by mouth every 8 hours as needed for nausea/vomiting.Disp: 60 tabletRfl: 1 rimegepant (NURTEC ODT) 75 mg disintegrating tabletTake 1 tablet at onset of headache/migraine. Only take 1 tablet as single dose in 24 hour period.Disp: 8 tabletRfl: 11 albuterol HFA (PROVENTIL HFA, VENTOLIN HFA) 90 mcg/actuation inhalerInhale 2 Puffs as instructed every 4 hours as needed for wheezing/shortness of breath.Disp: 1 EachRfl: 11 mirabegron (MYRBETRIQ) 50 mg Xi16Pwug 1 tablet by mouth once daily.Disp: 30 tabletRfl: 5 fremanezumab-vfrm subcutaneus auto-injector 225 mg/1.5 mL (AJOVY)Inject 1.5 mL subcutaneously once every month. Do not shake.Disp: 1.5 mLRfl: 11 lansoprazole (PREVACID) 30 mg capsuleTake 1 capsule by mouth two times a day.Disp: 60 capsuleRfl: 0 simvastatin (ZOCOR) 20 mg tabletTake 2 tablets by mouth daily at bedtime.Disp: 180 tabletRfl: 3 gabapentin (NEURONTIN) 800 mg tabletTake 1 tablet by mouth four times daily for 180 days.Disp: 120 tabletRfl: 5 loratadine (CLARITIN) 10 mg tablettake 1 tablet by mouth once dailyDisp: 28 tabletRfl: 11 MEDICATION, NON-DATABASEMarijuana for migrainesDisp: Rfl: Review of Systems: Review of system: Patient reports no change from the prior visit. Objective: VS: see infusion note for vital signs General: well appearing, in no acute distress, alert Neurological: Pain Behaviors: squinting Mental Status: Alert and oriented to person, place and time. Affect is normal and appropriate. Speech is spontaneous and fluent without dysarthria and normal in rate, volume and articulation. Short and snf memory, cognition and general fund of knowledge are good. Attention span and concentration are good. Cranial Nerves: VII-face is symmetric without evidence of weakness. VIII-hearing intact. Assessment: No diagnosis found. Plan: Brittney Alcocer is a 49 year old year old female, with a history of chronic migraine, stroke, KS,chronic pain syndrome, TMJD, concussion, peptic ulcer, hypothyroid, asthma, pelvic pain, renal stones and insomnia following up today for day 1 of infusions. Follow up plan: Resume previous at home medications. - Follow up with Yenny Osman APRN on 03/14/2024 Level of service: Est level 1 (0-9 min): Time spent 8 min on the day of service, which included preparing to see the patient, [id number] patient care, completing clinical documentation, obtaining and/or reviewing separately obtained history, performing a medically appropriate examination, and counseling and educating the patient/family/caregiver. Negro Marti APRN.GASOLINE LOCOMOTIVE CRANE OPERATOR Headache Section [facility] March 11[facility]02-04-2025 NoteHNO ID: [id number] Author: HOSSEIN GO RN Service: ? Author Type: Registered Nurse Type: Progress Notes Filed: 03/11/2024 11:30 Note Text: Patient in for day 1 of IV infusions. Patient rated headache 8/10. Patient stated mild nausea and no dizziness. Patient educated on medications to be administered. Patient verbalized understanding and agreed to proceed with infusions. 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 [facility] [address] [facility] [facility] [address] [facility] [address] Dept: [phone] Dept PHYSICAL THERAPY TREATMENT Patient Name: Petar Alcocer : 1975 Date of Service: 03/10/2024 Referring Provider: Cristobal Otoole NP Visit #: 11 Diagnosis: Torticollis Mechanism of injury: Neck/shoulder pain and L UE numbness and tingling. Getting infusions the last few months for migraines and botox injections for the last 4 years to improve. Patient Preferences: Star Subjective Current pain 8/10 shoulders, neck. Pain at mid scapular worse with bending forward. R shoulder painwith IR. Compliance with HEP: Yes Objective Objective measurements not taken today. Treatment Soft Tissue Mobilization Location: B upper trap, cervical PVM Body Position: Supine Comments: STM Location 2: L mid trap/rhomboid Body Position 2: Prone Comments 2: MFR Joint Mobilization Location: thoracic Body Position: Prone Comments: ricci purdy T 4-7 Other Location: Cervical manual traction Body Position: Supine Comments: 6 x 45 hold Home Exercise Program: Deferred Assessment Skilled physical therapy interventions utilized to improve patient s impairments and work towards established goals. Patient response to treatment: moderate soft tissue restrictions noted R>L cervical paraspinals,upper trap. Very tender at R levator and C3-4 paraspinals. Relief with manual cervical traction. Ptstates shoulders sore, but neck pain reduced after MT. Patient will benefit from continued physical therapy to reduce pain, symptoms; improve function. The rationale for today s treatment was explained to the patient. Verbal cues were provided for correct form with all exercises. Advised patient to continue with Home Exercise Program (HEP). Goals General/Ortho Patient will be independent with HEP. (Progressing) Start: 01/10/24 Expected End: 04/18/24 Patient will report decreased pain at neck/shoulder to no more than 5/10 in order to be able to perform ADLs without limitation. (Not Progressing) Start: 01/10/24 Expected End: 04/18/24 Patient will increase ROM of L shoulder and neck to WFL without increased pain to be able to reach back for bra and back of neck for grooming. (Progressing) Start: 01/10/24 Expected End: 04/18/24 Patient will increase strength in L UE to 4/5 grossly to be able to use L arm for ADLs (Progressing) Start: 01/10/24 Expected End: 04/18/24 Functional Outcome Measure: Patient will improve NDI to no more than 10 (Not Addressed) Start: 01/10/24 Expected End: 04/18/24 General/Ortho Functional Outcome Measure: Patient will improve SPADI to no more than 15% (Not Addressed) Start: 01/10/24 Expected End: 04/18/24 Plan Plan for next session: continue MT PRN; advance postural stabilization as tolerated Time Entry Total Treatment Time Start Time: 235 Stop Time: 030 Time Calculation (min): 25 min PT Therapeutic Procedures Time Entry Manual Therapy Time Entry: Lindsey Mcgregor PTA Cosigned by Linda Randle PT at 03/10/2024 3:36 PM EST documented in this [facility]01-30-2025 History of Present illness Narrative* Linda Randle, PT - 03/06/2024 10:30 AM EST Images from the original note were not included. [facility] [place] [address] [facility] [address] Dept: [phone] Dept PHYSICAL THERAPY TREATMENT Patient Name: Petar Alcocer : 1975 Date of Service: 03/06/2024 Referring Provider: Cristobal Otoole NP Visit #: 10 Diagnosis: Torticollis Mechanism of injury: Neck/shoulder pain and L UE numbness and tingling. Getting infusions the last few months for migraines and botox injections for the last 4 years to improve. Patient Preferences: Star Precautions/Red Flags: Yes medical precautions: Bipolar disorder, Hx of heart attack, PTSD, CVA, Adhesive allergy, NO TAPING Subjective Reports MRI on 03/28/24 for neck. Pain level 2/10 pain. Compliance with HEP: Yes Objective Objective measurements not taken today. Treatment Therapeutic Activity Therapeutic Activity 2: Prone chin tucks Activity 2 Comment: 1) isolated x 10 ; 2) c ext 2 x 10 reps; 3) c cervical rotation 3 x 5 reps ea side Therapeutic Activity 3: seated chest press Activity 3 Comment: 1.0kg 2 x 10 reps Therapeutic Activity 12: overhead press Activity 12 Comment: 0.5 kg; 2 x 10 reps Soft Tissue Mobilization Location: R upper trap, cervical PVM Body Position: Supine Comments: STM Other Location: Cervical manual traction Body Position: Supine Comments: 3 x 45 sec holds Home Exercise Program: Progressed home exercise program Assessment Skilled physical therapy interventions utilized to improve patient s impairments and work towards established goals. Patient response to treatment: Progressed clinical program this date to include more prone activities and strength of neck/postural mms this date with moderate degree of fatigue. No increased pain during. Patient will benefit from continued physical therapy to progress functional use of the neck/postural mm. The rationale for today s treatment was explained to the patient. Verbal cues were provided for correct form with all exercises. Advised patient to continue with Home Exercise Program (HEP). Goals General/Ortho Patient will be independent with HEP. (Progressing) Start: 01/10/24 Expected End: 04/18/24 Patient will report decreased pain at neck/shoulder to no more than 5/10 in order to be able to perform ADLs without limitation. (Progressing) Start: 01/10/24 Expected End: 04/18/24 Patient will increase ROM of L shoulder and neck to WFL without increased pain to be able to reach back for bra and back of neck for grooming. (Progressing) Start: 01/10/24 Expected End: 04/18/24 Patient will increase strength in L UE to 4/5 grossly to be able to use L arm for ADLs (Progressing) Start: 01/10/24 Expected End: 04/18/24 Functional Outcome Measure: Patient will improve NDI to no more than 10 (Progressing) Start: 01/10/24 Expected End: 04/18/24 General/Ortho Functional Outcome Measure: Patient will improve SPADI to no more than 15% (Progressing) Start: 01/10/24 Expected End: 04/18/24 Plan Plan for next session: progress functional use of the neck/postural mm; Time Entry Total Treatment Time Start Time: 1040 Stop Time: 1107 Time Calculation (min): 27 min PT Therapeutic Procedures Time Entry Therapeutic Activity Time Entry: 20 Manual Therapy Time Entry: 10 Linda Randle PT, DPT, NCS documented in this [facility]01-29-2025 NoteHNO ID: [id number] Author: QUEENIE SPARKS APRN.GASOLINE LOCOMOTIVE CRANE OPERATOR Service: ? Author Type: Nurse Practitioner Type: Progress Notes Filed: 03/05/2024 12:03 Note Text: Headache Center - Virtual Visit Infusion Triage This visit was conducted as a virtual visit, with patient's permission, via zoom. It required patient-provider interaction for the medical decision making as documented below. Patient stated name and Patient location: [place] I have communicated my name and active licensure. The patient's identity and physical location were verified at the time of this visit. Either the patient or their legal corporate representative has been informed of the risks and benefits of -- and alternatives to -- treatment through a remote evaluation and consents to proceed with the evaluation remotely. HPI: Brittney Alcocer is a 49 year old year old female, with a history of chronic migraine, stroke, KS,chronic pain syndrome, TMJD, concussion, peptic ulcer, hypothyroid, asthma, pelvic pain, renal stones and insomnia following up today virtually to discuss infusion therapy. Would like to come in for infusions on 03/11 - 03/13. The first 2 months after botox she felt her headaches were well managed. The last month she has had worsening headaches. She thinks Ajovy helps somewhat - only had 2 injections so far. The first injection worked very well, the second did not work as well. Mariaatec was helping for a while, but now feels like her body is used to it. The last month has had 20 - 25 headache days. Prior to this, averages 15 migraine days per month which are shorter in duration. Date of last visit: 12/12/2023 Onset of current headache: middle of February What medications have you tried for this headache cycle: nurtec - not currently helping, zofran, ice (helps a little) New health events/diagnosis since last visit (KS/stroke/DM/HTN/etc): broken finger, front teeth extraction Cardiovascular risk factors: CVA, KS Past infusion intolerances: works well in conjunction with Botox, no intolerances Headache 1 Location: temporal, bilateral and occipital Quality/Description: throbbing, pressure, piercing/stabbing and aching Associated Symptoms: Photophobia: yes Phonophobia: yes Nausea: yes Vomiting: yes - a few times Other symptoms: tinnitus (eye twitching) Current preventive treatment: botox, gabapentin, ajovy Current abortive treatment: nurtec Days missed from work or school in the last month: 5 days Labs to Review: Latest Ref Rng AND Units 12/28/2023 CMP Sodium 136 - 144 mmol/L 142 Potassium 3.7 - 5.1 mmol/L 4.1 Chloride 98 - 107 mmol/L 106 CO2 22 - 30 mmol/L 27 Glucose 74 - 99 mg/dL 91 BUN 7 - 21 mg/dL 13 Creatinine 0.58 - 0.96 mg/dL 0.82 EGFR >=60 mL/min/1.73m? 88 Protein, Total 6.3 - 8.0 g/dL 7.5 Albumin 3.9 - 4.9 g/dL 4.5 Calcium 8.5 - 10.2 mg/dL 9.7 Bilirubin, Total 0.2 - 1.3 mg/dL 0.4 AST 13 - 35 U/L 17 ALT 7 - 38 U/L 16 Alkaline Phosphatase 34 - 123 U/L 116 Latest Ref Rng AND Units 12/28/2023 CBC WBC 3.70 - 11.00 k/uL 6.99 RBC 3.90 - 5.20 m/uL 4.72 Hemoglobin 11.5 - 15.5 g/dL 15.1 Hematocrit 36.0 - 46.0 % 46.1 MCV 80.0 - 100.0 fL 97.7 MCH 26.0 - 34.0 pg 32.0 MCHC 30.5 - 36.0 g/dL 32.8 RDW-CV 11.5 - 15.0 % 12.9 Platelet Count 150 - 400 k/uL 243 MPV 9.0 - 12.7 fL 10.2 Other Therapies Nerve blocks Analgesic Diclofenac (Voltaren, Cataflam, Cambia) Hydrocodone/Acetaminophen (Vicodin, [place]) Indomethacin (Indocin) Ketorolac (Toradol) Tramadol (Ultram) celebrex Anti-Anxiety Alprazolam (Xanax, Niravam) Anti-Convulsant Divalproex sodium (Depakote) Gabapentin (Neurontin) Anti-Depressant and Antipsychotic Amitriptyline (Elavil) Bupropion (Wellbutrin) Citalopram (Celexa) Fluoxetine (Prozac) Olanzapine (Zyprexa, Zydis) Quetiapine (Seroquel) Sertraline (Zoloft) Venlafaxine (Effexor) Antiemetics Ondansetron Prochlorperazine Promethazine Reglan (Metoclopramide) Anti-Migraine Naratriptan (Amerge) Rizatriptan (Maxalt) Sumatriptan (Imitrex, Sumavel) raised blood pressure cannot use triptans - H/O TIA and KS Blood Pressure NO beta blockers - asthma MABs Erenumab (Aimovig) lost efficacy Galcanezumab (Emgality) not effective GEPANTS Rimegepant (Nurtec) Botulinum Toxin Onabotulinum Toxin A (Botox) Muscle Relaxer Chlorzoxazone (Parafon Forte) Cyclobenzaprine (Flexeril) Methocarbamol (Robaxin) Sleep Aids Melatonin Supplements Magnesium Riboflavin Other Medications Dexamethasone (Decadron) Diphenhydramine (Benadryl) Methylprednisolone (Medrol) Prednisone Over the Counter Medications Acetaminophen (Tylenol) Ibuprofen (Advil, Motrin) PAST MEDICAL HISTORY Diagnosis Date Adjustment disorder with depressed mood Allergic rhinitis Arthritis of right knee Asthma Bilateral ovarian cysts Cholecystitis, unspecified 1994 Gallbladder removed Chronic pain syndrome Fibroids Gastric ulcer, uns (more content not included)...[facility] 02-28-2024 History of Present illness Narrative* Trent Alas MD - 02/28/2024 8:15 AM EST Images from the original note were not included. [facility] [place] [address] [place] [address] [place] [address] Dept: [phone] Dept 02/28/2024 Chief Complaint Patient presents with New Patient Left ring finger injury HISTORY Brittney Alcocer is a 49 y.o. right handed female that presents for evaluation and treatment after sustaining an injury to her LEFT ring finger that occurred approximately 6 day(s) ago. 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 Mechanism of injury -left ring finger caught in dog leash. Treatment up to this point has consisted of XRays, pain medicine, and splinting in the emergency room. Brittney currently rates her pain as moderate, and describes it as aching, worse with attempted use of extremity, and improved with rest and elevation. Patient reports that she has been wearing AlumaFoam splint about her left ring finger since she wasseen in the emergency department. Pain has improved in her left ring finger although still some pain at the distal aspect. Denies any numbness or tingling in fingers. No other concerns noted today. No results found for: HGBA1C No past surgical history on file. Past Medical History: Diagnosis Date Bipolar 1 disorder (HCC) History of heart attack Migraine Myocardial infarction (HCC) PTSD (post-traumatic stress disorder) Stroke (HCC) Tendonitis No family history on file. Social History Socioeconomic History Marital status: Spouse name: Not on file Number of children: Not on file Years of education: Not on file Highest education level: Not on file Occupational History Not on file Tobacco Use Smoking status: Every Day Types: Cigarettes Smokeless tobacco: Not on file Substance and Sexual Activity Alcohol use: Not Currently Drug use: Yes Types: Marijuana Comment: History of crack cocaine use Sexual activity: Not on file Other Topics Concern Not on file Social History Narrative Not on file Social Drivers of Health Financial Resource Strain: Not on file Food Insecurity: Not on file Transportation Needs: Not on file Physical Activity: Not on file Stress: Not on file Social Connections: Not on file Intimate Partner Violence: Not on file Housing Stability: Not on file Allergies Allergen Reactions Chocolate Anaphylaxis Citalopram Anaphylaxis Naproxen Anaphylaxis Amoxicillin Codeine Other Effexor [Venlafaxine] Milk (Cow) Nausea And Vomiting Morphine Other and Unknown States she can take Morphine, but requires nausea medication with it Salicylates Other Tramadol Other reaction(s): Other Trazodone And Nefazodone Tomato Rash Wound Dressing Adhesive Rash Current Outpatient Medications Medication Sig Dispense Refill Atorvastatin Calcium (LIPITOR PO) Take by mouth. famotidine (Pepcid) 10 MG tablet Take by mouth. GABAPENTIN PO Take by mouth. lansoprazole (Prevacid) [address] capsule Take by mouth every morning (before breakfast). Do not crush or chew. Loratadine (CLARITIN PO) Take by mouth. methylPREDNISolone (Medrol) 4 MG tablet Take 4 mg by mouth daily. onabotulinumtoxinA (Botox) 100 units injection Inject into the shoulder, thigh, or buttocks Once. Rimegepant Sulfate (Nurtec) 75 MG tablet dispersible Take by mouth. cyclobenzaprine (Flexeril) 10 MG tablet Take 1 tablet (10 mg) by mouth Nightly for 10 days. 10 tablet 0 No current facility-administered medications for this visit. OBJECTIVE Ht 4' 10 (1.473 m) Wt 182 lb (82.6 kg) BMI 38.04 kg/m Ortho Exam Left hand: Skin intact. Nailbed about ring finger intact. Swelling and tenderness to palpation noted about the left ring finger overlying the distal phalanx and DIP joint. Able to fully extend all fingers including the ring finger. Able to flex all fingers except for limited flexion noted above left ring finger DIP joint, likely secondary to pain from known fracture. Sensation intact light touch throughout the fingers. Fingers warm well-perfused. IMAGING Plain films were reviewed by myself from a previous date. 2V FINGER (AP and LAT) show left ring finger distal phalanx fracture that is transverse in nature and minimally displaced in acceptable alignment for nonoperative management PROCEDURE None ASSESSMENT 1. Closed displaced fracture of distal phalanx of left ring finger, initial encounter [facility] PLAN I discussed with Brittney the natural history, expected outcome, and risks/benefits of both operative and nonoperative management of her particular fracture relative to her age, activity level, mostrecent imaging, and physical exam. Brittney had some excellent questions, all of which were answered to her satisfaction. Brittney elected to proceed with conservative treatment to include splinting. Patient was fitted with a stax splint for her left ring finger and instructed on appropriate splint wear and activity restrictions. She was also given a stax splint 1 size smaller to use when the swelling about her left ring finger subsides. She should wear the splint at all times except to briefly remove the splint for hygiene activities and keep the left ring finger DIP joint extended at all times. She should be nonweightbearing about her left ring finger with no lifting, pushing, or pulling about left hand. Okayfor range of motion of unsplinted joints and fingers as tolerated left upper extremity. She was given a work note as well outlining restrictions. The above diagnosis has been present for less than 1 year I did thoroughly review previous notes from other providers including myself, previous imaging, as well as pertinent testing including X-rays Today's treatment plan includes Splinting Follow-up: Brittney will followup with me in 4 weeks. She knows to call the office with any questions or concerns in the interim. Future Imaging: LEFT Ring Finger 2V OOS Trent Alas MD Orthopedic Hand and Upper Extremity Surgery [facility] Department of Orthopaedics 02/28/2024 at 8:12 AM (Please note that portions of this note may have been completed with a voice recognition program. Efforts were made to edit the dictations but occasionally words are mis-transcribed.) documented in this [facility]01-17-2025 Emergency department Note* Tena Khan RN - 02/22/2024 5:38 PM EST Ice applied [facility] left hand. [id number]* Tena Khan RN - 02/22/2024 5:38 PM EST Ice applied to left hand. * Monique Palma MD - 02/22/2024 5:05 PM EST EMERGENCY DEPARTMENT ENCOUNTER Pt Name: Brittney Alcocer Birthdate 1975 Date of evaluation: 02/22/2024 ED Provider: Monique Palma MD CHIEF COMPLAINT Chief Complaint Patient presents with Hand Pain HISTORY OF PRESENT ILLNESS (Location/Symptom, Timing/Onset, Context/Setting, Quality, Duration, Modifying Factors, Severity) Note limiting factors. HPI Brittney Alcocer is a 49 y.o. female who presents to the emergency department after a finger injury. Patient states that she was trying to get the leash attached to her dog today and her left ring finger ended up getting caught. Having pain at the DIP joint of the finger. No laceration or wound. Denies any other injuries. Nursing Notes were reviewed. REVIEW OF SYSTEMS Review of Systems Pertinent positives and negatives per HPI PAST MEDICAL HISTORY Past Medical History: Diagnosis Date Bipolar 1 disorder (HCC) History of heart attack Migraine Myocardial infarction (HCC) PTSD (post-traumatic stress disorder) Stroke (HCC) Tendonitis SURGICAL HISTORY History reviewed. No pertinent surgical history. CURRENT MEDICATIONS Previous Medications ATORVASTATIN CALCIUM (LIPITOR PO) Take by mouth. CYCLOBENZAPRINE (FLEXERIL) 10 MG TABLET Take 1 tablet (10 mg) by mouth Nightly for 10 days. FAMOTIDINE (PEPCID) 10 MG TABLET Take by mouth. GABAPENTIN PO Take by mouth. LANSOPRAZOLE (PREVACID) [address] CAPSULE Take by mouth every morning (before breakfast). Do not crush or chew. LORATADINE (CLARITIN PO) Take by mouth. METHYLPREDNISOLONE (MEDROL) 4 MG TABLET Take 4 mg by mouth daily. ONABOTULINUMTOXINA (BOTOX) 100 UNITS INJECTION Inject into the shoulder, thigh, or buttocks Once. RIMEGEPANT SULFATE (NURTEC) 75 MG TABLET DISPERSIBLE Take by mouth. ALLERGIES Chocolate, Citalopram, Naproxen, Amoxicillin, Codeine, Effexor [venlafaxine], Milk (cow), Morphine,Salicylates, Tramadol, Trazodone and nefazodone, Tomato, and Wound dressing adhesive FAMILY HISTORY No family history on file. SOCIAL HISTORY Social History Socioeconomic History Marital status: Tobacco Use Smoking status: Every Day Types: Cigarettes Substance and Sexual Activity Alcohol use: Not Currently Drug use: Yes Types: Marijuana Comment: History of crack cocaine use SCREENINGS PHYSICAL EXAM ED Triage Vitals [02/22/24 1710] Temp Heart Rate Resp BP 36.7 C (98 F) 88 16 (!) 141/68 SpO2 Temp Source Heart Rate Source Patient Position 99 % Oral -- -- BP Location FiO2 (%) -- -- Physical Exam Well-appearing patient in no acute distress. Vital signs reviewed and unremarkable. Patient has some edema as well as tenderness to the DIP joint of the left ring finger. No obvious dislocation. Brisk capillary refill. Normal sensation. Pain with any range of motion of the DIP joint. DIAGNOSTIC RESULTS RADIOLOGY (Per Emergency Physician): Interpretation per the Radiologist below, if available at the time of this note: XR fingers 2+ views left Final Result 1. Fracture left ring finger distal phalanx. Report Dictated on Electronically Signed By: Tray Stokes MD Electronically Signed Date/Time: 02/22/2024 5:43 PM EST LABS: Labs Reviewed - No data to display All other labs were within normal range or not returned as of this dictation. EMERGENCY DEPARTMENT COURSE and DIFFERENTIAL DIAGNOSIS/MDM: Vitals: Vitals: 02/22/24 1710 BP: (!) 141/68 Pulse: 88 Resp: 16 Temp: 36.7 C (98 F) TempSrc: Oral SpO2: 99% Weight: 82.6 kg (182 lb) Height: 1.473 m (4' 10) Medications - No data to display Medical Decision Making 49-year-old female presenting the emergency department today for finger injury. Afebrile hemodynamically stable. On exam has some pain to the DIP joint. Concern for fracture versus dislocation versussprain. X-ray imaging ordered. Does not want pain medications at this time. I reviewed her x-ray imaging and my interpretation is that she is a transverse fracture through thedistal phalanx at the base of it. No obvious dislocation or displacement. Placed in a finger splintby myself and will be discharged with follow-up with hand surgery. Discharged in stable condition. Diagnostic tests considered but not performed: External records reviewed: Diagnostics interpreted by me: xray finger Discussions with other clinicians: Chronic conditions impacting care: Social determinants of health affecting care: ED Medications managed: Medications - No data to display Prescription drugs considered: I Monique Palma MD am the fire chief's aide of record. FINAL IMPRESSION 1. Closed nondisplaced fracture of distal phalanx of left ring finger, initial encounter DISPOSITION Discharge 02/22/2024 05:45:24 PM PATIENT REFERRED TO: [facility] - [address] [address] DISCHARGE MEDICATIONS: New Prescriptions No medications on file (Comment: Please note this report has been produced using speech recognition software and may contain errors related to that system including errors in grammar, punctuation, and spelling, as well as words and phrases that may be inappropriate. If there are any questions or concerns please feel freeto contact the dictating provider for clarification.) Monique Palma MD (electronically signed) Emergency Medicine Provider Monique Palma MD 02/22/24 [id number] * Tena Khan RN - 02/22/2024 5:05 PM EST Patient to room 2 with c/o left hand fourth digit pain after her dog took off while she was holdingthe lease. V/S obtained, call light within reach. documented in this [facility]01-17-2025 Emergency department Triage note* Tena Khan RN - 02/22/2024 5:05 PM EST Patient to room 2 with c/o left hand fourth digit pain after her dog took off while she was holdingthe lease. V/S obtained, call light within reach. [id number] Miscellaneous Notes* ED Procedure Note - Monique Palma MD - 02/22/2024 5:05 PM ESTAssociated Order(s): Splint Application Procedure Splint Application Performed by: Monique Palma MD Authorized by: Monique Palma MD Consent: Consent obtained: Verbal [place] protocol: Patient identity confirmed: Verbally with patient Pre-procedure details: Distal neurologic exam: Normal Distal perfusion: distal pulses strong Procedure details: Location: Finger Finger location: L ring finger Strapping: no Cast type: Finger Splint type: Finger Supplies: Aluminum splint Attestation: Splint applied and adjusted personally by me Post-procedure details: Distal neurologic exam: Normal Distal perfusion: distal pulses strong and brisk capillary refill Procedure completion: Tolerated Post-procedure imaging: not applicable Monique Palma MD 02/22/241755 documented in this [facility]01-17-2025 Note* ED Procedure Note - Monique Palma MD - 02/22/2024 5:05 PM ESTAssociated Order(s): Splint Application Procedure Splint Application Performed by: Monique Palma MD Authorized by: Monique Palma MD Consent: Consent obtained: Verbal [place] protocol: Patient identity confirmed: Verbally with patient Pre-procedure details: Distal neurologic exam: Normal Distal perfusion: distal pulses strong Procedure details: Location: Finger Finger location: L ring finger Strapping: no Cast type: Finger Splint type: Finger Supplies: Aluminum splint Attestation: Splint applied and adjusted personally by me Post-procedure details: Distal neurologic exam: Normal Distal perfusion: distal pulses strong and brisk capillary refill Procedure completion: Tolerated Post-procedure imaging: not applicable Monique Palma MD 02/22/241755 [facility]01-17-2025 Note* ED Procedure Note - Monique Palma MD - 02/22/2024 5:05 PM ESTAssociated Order(s): Splint Application Procedure Splint Application Performed by: Monique Palma MD Authorized by: Monique Palma MD Consent: Consent obtained: Verbal [place] protocol: Patient identity confirmed: Verbally with patient Pre-procedure details: Distal neurologic exam: Normal Distal perfusion: distal pulses strong Procedure details: Location: Finger Finger location: L ring finger Strapping: no Cast type: Finger Splint type: Finger Supplies: Aluminum splint Attestation: Splint applied and adjusted personally by me Post-procedure details: Distal neurologic exam: Normal Distal perfusion: distal pulses strong and brisk capillary refill Procedure completion: Tolerated Post-procedure imaging: not applicable Monique Palma MD 02/22/241755 [facility]01-17-2025 NoteProcedure Splint Application Performed by: Monique Palma MD Authorized by: Monique Palma MD Consent: Consent obtained: Verbal [place] protocol: Patient identity confirmed: Verbally with patient Pre-procedure details: Distal neurologic exam: Normal Distal perfusion: distal pulses strong Procedure details: Location: Finger Finger location: L ring finger Strapping: no Cast type: Finger Splint type: Finger Supplies: Aluminum splint Attestation: Splint applied and adjusted personally by me Post-procedure details: Distal neurologic exam: Normal Distal perfusion: distal pulses strong and brisk capillary refill Procedure completion: Tolerated Post-procedure imaging: not applicable Monique Palma MD 02/22/[address] [place] [address] [id number] Physician Emergency department Note* Monique Palma MD - 02/22/2024 5:05 PM EST EMERGENCY DEPARTMENT ENCOUNTER Pt Name: Brittney Alcocer Birthdate 1975 Date of evaluation: 02/22/2024 ED Provider: Monique Palma MD CHIEF COMPLAINT Chief Complaint Patient presents with Hand Pain HISTORY OF PRESENT ILLNESS (Location/Symptom, Timing/Onset, Context/Setting, Quality, Duration, Modifying Factors, Severity) Note limiting factors. HPI Brittney Alcocer is a 49 y.o. female who presents to the emergency department after a finger injury. Patient states that she was trying to get the leash attached to her dog today and her left ring finger ended up getting caught. Having pain at the DIP joint of the finger. No laceration or wound. Denies any other injuries. Nursing Notes were reviewed. REVIEW OF SYSTEMS Review of Systems Pertinent positives and negatives per HPI PAST MEDICAL HISTORY Past Medical History: Diagnosis Date Bipolar 1 disorder (HCC) History of heart attack Migraine Myocardial infarction (HCC) PTSD (post-traumatic stress disorder) Stroke ([facility]) Tendonitis SURGICAL HISTORY History reviewed. No pertinent surgical history. CURRENT MEDICATIONS Previous Medications ATORVASTATIN CALCIUM (LIPITOR PO) Take by mouth. CYCLOBENZAPRINE (FLEXERIL) 10 MG TABLET Take 1 tablet (10 mg) by mouth Nightly for 10 days. FAMOTIDINE (PEPCID) 10 MG TABLET Take by mouth. GABAPENTIN PO Take by mouth. LANSOPRAZOLE (PREVACID) [address] CAPSULE Take by mouth every morning (before breakfast). Do not crush or chew. LORATADINE (CLARITIN PO) Take by mouth. METHYLPREDNISOLONE (MEDROL) 4 MG TABLET Take 4 mg by mouth daily. ONABOTULINUMTOXINA (BOTOX) 100 UNITS INJECTION Inject into the shoulder, thigh, or buttocks Once. RIMEGEPANT SULFATE (NURTEC) 75 MG TABLET DISPERSIBLE Take by mouth. ALLERGIES Chocolate, Citalopram, Naproxen, Amoxicillin, Codeine, Effexor [venlafaxine], Milk (cow), Morphine,Salicylates, Tramadol, Trazodone and nefazodone, Tomato, and Wound dressing adhesive FAMILY HISTORY No family history on file. SOCIAL HISTORY Social History Socioeconomic History Marital status: Tobacco Use Smoking status: Every Day Types: Cigarettes Substance and Sexual Activity Alcohol use: Not Currently Drug use: Yes Types: Marijuana Comment: History of crack cocaine use SCREENINGS PHYSICAL EXAM ED Triage Vitals [02/22/24 1710] Temp Heart Rate Resp BP 36.7 C (98 F) 88 16 (!) 141/68 SpO2 Temp Source Heart Rate Source Patient Position 99 % Oral -- -- BP Location FiO2 (%) -- -- Physical Exam Well-appearing patient in no acute distress. Vital signs reviewed and unremarkable. Patient has some edema as well as tenderness to the DIP joint of the left ring finger. No obvious dislocation. Brisk capillary refill. Normal sensation. Pain with any range of motion of the DIP joint. DIAGNOSTIC RESULTS RADIOLOGY (Per Emergency Physician): Interpretation per the Radiologist below, if available at the time of this note: XR fingers 2+ views left Final Result 1. Fracture left ring finger distal phalanx. Report Dictated on Electronically Signed By: Tray Stokes MD Electronically Signed Date/Time: 02/22/2024 5:43 PM EST LABS: Labs Reviewed - No data to display All other labs were within normal range or not returned as of this dictation. EMERGENCY DEPARTMENT COURSE and DIFFERENTIAL DIAGNOSIS/MDM: Vitals: Vitals: 02/22/24 1710 BP: (!) 141/68 Pulse: 88 Resp: 16 Temp: 36.7 C (98 F) TempSrc: Oral SpO2: 99% Weight: 82.6 kg (182 lb) Height: 1.473 m (4' 10) Medications - No data to display Medical Decision Making 49-year-old female presenting the emergency department today for finger injury. Afebrile hemodynamically stable. On exam has some pain to the DIP joint. Concern for fracture versus dislocation versussprain. X-ray imaging ordered. Does not want pain medications at this time. I reviewed her x-ray imaging and my interpretation is that she is a transverse fracture through thedistal phalanx at the base of it. No obvious dislocation or displacement. Placed in a finger splintby myself and will be discharged with follow-up with hand surgery. Discharged in stable condition. Diagnostic tests considered but not performed: External records reviewed: Diagnostics interpreted by me: xray finger Discussions with other clinicians: Chronic conditions impacting care: Social determinants of health affecting care: ED Medications managed: Medications - No data to display Prescription drugs considered: Debra Palma MD am the fire chief's aide of record. FINAL IMPRESSION 1. Closed nondisplaced fracture of distal phalanx of left ring finger, initial encounter DISPOSITION Discharge 02/22/2024 05:45:24 PM PATIENT REFERRED TO: [facility] [address] [address] DISCHARGE MEDICATIONS: New Prescriptions No medications on file (Comment: Please note this report has been produced using speech recognition software and may contain errors related to that system including errors in grammar, punctuation, and spelling, as well as words and phrases that may be inappropriate. If there are any questions or concerns please feel freeto contact the dictating provider for clarification.) Monique Palma MD (electronically signed) Emergency Medicine Provider Monique Palma MD 02/22/241754 [id number] Evaluation note* Diagnosis Onset Date Resolution Status Admit Date Cervical radiculopathy noneactive Caleb cloud 2024 7:55am [facility] Work Phone: 1(169) 657-905101-13-2025 NoteHNO ID: [id number] Author: FRANCIE TIERNEY RT(R) Service: ? Author Type: Education Diagnostician Type: Progress Notes Filed: 02/18/2024 10:35 Note Text: Radiology Service Progress Note PATIENT NAME: Brittney Alcocer DATE OF SERVICE: February 18, 2024 TIME: 10:22 AM PATIENT IDENTITY VERIFICATION COMPLETED USING TWO (2) IDENTIFIERS: Name and Date of confirmed by patient verbally. FALL SCREENING: Has the patient had 2 falls in the last year or 1 fall with injury or currently using an Ambulatory Assistive Device (Walker, Cane, Wheelchair, Crutches, etc.)? No PATIENT GENDER DATA: Assigned female at . status: : No status: NO. PATIENT RELEVANT IMPLANT DATA REVIEWED: Yes PATIENT PRESENTS WITH AN IMPLANTABLE OR ATTACHED LOCAL FLATBED DRIVER: No RADIOLOGY DEPARTMENT: General X-ray: Exam(s) Completed: Upper Extremity X-Ray(s): Shoulder, AP / TRUE AP / AXILLARY right PERIPHERAL IV DATA: Not applicable SIGNED BY: RT Laura(R) February 18, 2024 10:22 [facility]01-13-2025 NoteHNO ID: [id number] Author: GLO DALAL APRN.GASOLINE LOCOMOTIVE CRANE OPERATOR Service: ? Author Type: Nurse Practitioner Type: Progress Notes Filed: 02/18/2024 11:37 Note Text: Subjective HPI HPI Brittney Alcocer is a 49 year old female who presents today for CC of fall, right shoulder injury. This started 1 day ago. Has tried otc medication for relief. Symptoms are worsened by rom of right shoulder. Denies history of surgery or injury to right shoulder. Denies numbness and tingling of right upper extremity. 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 SYNDROME Unspecified asthma(493.90) occasional inhaler Urinary calculus, unspecified 12/2005 Renal stones: left kidney per CT PAST SURGICAL HISTORY Procedure Laterality Date BLADDER SURGERY HX 08/02/2020 Cystoscopy and Sling CARPAL TUNNEL Left 10/12/2016 Dr. Conner DELIVERY ONLY 1994 , low cervical DELIVERY ONLY 07/26/2005 , low cervical CHOLECYSTECTOMY 1995 COLONOSCOPY 09/03/2017 D. Evangelista. NORMAL. Repeat in 10 years. DILATION AND CURETTAGE DXAND/THER NONOBSTETRIC 2015 Dilation AND curettage X 2 EGD 02/25/2010 Abnormal LES, esophagitis, antral ulcers, retained fluid in stomach, pos H Pylori EGD 04/14/2008 antral gastritis, neg h Pylori EGD W/O [facility] SPEC VARICIES INJ 2021 EGD W/O [facility] SPEC VARICIES INJ 06/29/2021 EGD W/O [facility] SPEC VARICIES INJ 08/28/2023 acute inflammation of the esophagus consistent with GERD LAPAROSCOPY SURG CHOLECYSTECTOMY PAST SURGICAL HISTORY OF 2006 REMOVAL OF FATTY TUMOR FROM R ARM PAST SURGICAL HISTORY OF 2007 Carpal Tunnel Surgery on right wrist PAST SURGICAL HISTORY OF 09/27/2012 left wrist carpal tunnel release PAST SURGICAL HISTORY OF Right 2017 partial nephrectomy VAGINAL HYSTERECTOMY 12/24/2019 WART REMOVAL WHI Right 09/03/2018 Removal of wart on third finger right hand - Dr. Herrera ALLERGIES Citalopram Hydrobromide, Morphine, Amoxicillin, Asa [Salicylates], Chocolate, Effexor [Venlafaxine Hcl], Naproxen, Penicillin G, Tape [Adhesive Tape-Silicones], Tomato, Tramadol, Trazodone, and Venlafaxine MEDICATIONS rimegepant (NURTEC ODT) 75 mg disintegrating tabletTake 1 tablet at onset of headache/migraine. Only take 1 tablet as single dose in 24 hour period.Disp: 8 tabletRfl: 11 nystatin (MYCOSTATIN) 100,000 unit/mL suspensionTake 5 mL by mouth four times daily. 1tsp swish in mouth for several minutes, then swallow (or expectorate) 4 times daily until gone.Disp: 200 mLRfl: 0 ondansetron orally disintegrating (ZOFRAN ODT) 8 mg disintegrating tabletTake 1 tablet by mouth every 8 hours as needed for nausea/vomiting.Disp: 60 tabletRfl: 1 albuterol HFA (PROVENTIL HFA, VENTOLIN HFA) 90 mcg/actuation inhalerInhale 2 Puffs as instructed every 4 hours as needed for wheezing/shortness of breath.Disp: 1 EachRfl: 11 mirabegron (MYRBETRIQ) 50 mg [id number] 1 tablet by mouth once daily.Disp: 30 tabletRfl: 5 fremanezumab-vfrm subcutaneus auto-injector 225 mg/1.5 mL (AJOVY)Inject 1.5 mL subcutaneously once every month. Do not shake.Disp: 1.5 mLRfl: 11 lansoprazole (PREVACID) 30 mg capsuleTake 1 capsule by mouth two times a day.Disp: 60 capsuleRfl: 0 simvastatin (ZOCOR) 20 mg tabletTake 2 tablets by mouth daily at bedtime.Disp: 180 tabletRfl: 3 gabapentin (NEURONTIN) 800 mg tabletTake 1 tablet by mouth four times daily for 180 days.Disp: 120 tabletRfl: 5 loratadine (CLARITIN) 10 mg tablettake 1 tablet by mouth once dailyDisp: 28 tabletRfl: 11 MEDICATION, NON-DATABASEMarijuana for migrainesDisp: Rfl: FAMILY HISTORY Problem Relation Age of Onset Hypertension Mother Psychiatry Mother DEPRESSION other (Centre's Chorea) Mother other (Other) Sister stillborn other (Heart Disease) Maternal Grandfather other (Down Syndrome) Paternal Grandfather other (Centre's Chorea) Brother ADD/ADHD Son other (Rosacea) Son other (Gallbladder disease) Son Asthma Son Colon Cancer No Family History Social (more content not included)...[facility]01-13-2025 History of Present illness Narrative* Linda Randle, PT - 02/18/2024 8:00 AM EST Images from the original note were not included. [facility] [address] [facility] [address] Dept: [phone] Dept PHYSICAL THERAPY RE-EVALUATION Patient Name: Petar Alcocer : 1975 Date of Service: 02/18/2024 Referring Provider: Cristobal Otoole NP Visit #: 9 Diagnosis: Torticollis General Information Mechanism of injury: Neck/shoulder pain and L UE numbness and tingling. Getting infusions the last few months for migraines and botox injections for the last 4 years to improve. Patient Preferences: Star Precautions/Red Flags: Yes medical precautions: Bipolar disorder, Hx of heart attack, PTSD, CVA, Adhesive allergy, NO TAPING Subjective Chief Complaint: Headaches have been seeming to be better overall and reports that after PT, her headaches have beenreduced by 20%. Patient reports she has noticed improved ROM of her neck and strength in the L arm.She fell when she slipped on ice and landed on her R shoulder. Today, this is very painful and limiting. Pain: Current: 4/10 Best: 0/10 Worst: 20/10 Current Level of Function: Lifting is tough and she can only manage light objects 10-20# from the floor; from table can lift 50#. Cannot get on/off floor and has to crawl to object. Having difficultyusing the R UE for driving. She cannot hug her dog due to pain in the L trunk. Patient s Stated Goal: Improve use of L UE and dec pain of neck/arm Outcome Measures Neck Disability Index: (no BRICENO); 26% disability; 02/18/24: = 35% disabilty SPADI: 79.2% disability ; 02/18/24: 58.4% disability Objective CERVICAL SPINE Date Recorded: 02/17/23 Cervical AROM Degrees Flexion (flex) WFL p! Extension (ext) WFL Right side bending (SBR) 40 Left side bending (SBL) 40 Right rotation (rotR) 70 Left rotation (rotL) 65 Deep Neck Flexor (DNF) Endurance Test= 2 seconds p! Palpation: moderate turgor in cervical PVM and L RC (supraspinatus, infraspinatus) , rhomboids Flexibility: moderate limitation in neck mobility to the L SHOULDER Observation: Noting significant swelling on the R shoulder near AC joint and seems like clavicle may be displaced vs just a large/firm increase in swelling. Warm to touch. Advised to call MD to ensure nothing dislocated as she has lots of pain with AC joint testing. Date Recorded: 02/17/23 Upper Extremity ROM (degrees) Right Left AROM PROM AROM PROM Shoulder Flexion 164 p! 150 p! Shoulder Abduction 150 p! 140 p! Shoulder External Rotation (ER) T3 T2 Shoulder Internal Rotation (IR) R mid flank/rib T9 Upper Extremity Strength Right Left Shoulder Flexion 4 4- Shoulder Abduction 4 4 Shoulder External Rotation (ER) 4 4 Shoulder Internal Rotation (IR) 4 4 Elbow Flexion 4 4 Elbow Extension 4 4 Wrist Flexion 5 5 Wrist Extension 5 5 RHD Dynamometer Bank Vault Attendant Strength Testing (measured in lbs.) Date 02/18/2024 R L Full Bank Vault Attendant 45# 55# Tip Pinch 10# 10# Keyfob Bank Vault Attendant 16.5# 15# Tripod 10# 12# Scapular Strength Right Left Lower Trapezius DNT DNT Middle Trapezius DNT DNT Rhomboids DNT DNT Assessment Star is a 49 y.o. patient with chief complaint of neck and L shoulder limitations and pain, who presents with signs and symptoms consistent with cervical radiculopathy and RC involvement to unknown extent. Patients hx of back pain and migraines are factors that may limit or delay progress as expected. The patient would benefit from skilled physical therapy to address decreased strength, decreasedrange of motion, orthopedic restrictions, pain, soft tissue impairment, and impaired functional activities. Since SOC, patient has noted improvements in L shoulder ROM, neck ROM and improvement in strength. She has recently taken a fall and hit the R shoulder and it is much worse in terms of pain today andnotable swelling in the AC joint region. Patient was advised to follow up with MD. Reduction in SPADI indicating improvements overall in function but still demonstrates limitation in strength DNF needed for postural stabilization as well as limitation with using the arms for lifting, and particularly from the floor due to thoracic pain. Continued therapy warranted to reduce pain and improve function. Will reduce to 1x/week as she is compliant and consistent with HEP. Goals General/Ortho Patient will be independent with HEP. (Progressing) Start: 01/10/24 Expected End: 04/18/24 Patient will report decreased pain at neck/shoulder to no more than 5/10 in order to be able to perform ADLs without limitation. (Progressing) Start: 01/10/24 Expected End: 04/18/24 Patient will increase ROM of L shoulder and neck to WFL without increased pain to be able to reach back for bra and back of neck for grooming. (Progressing) Start: 01/10/24 Expected End: 04/18/24 Patient will increase strength in L UE to 4/5 grossly to be able to use L arm for ADLs (Progressing) Start: 01/10/24 Expected End: 04/18/24 Functional Outcome Measure: Patient will improve NDI to no more than 10 (Not Progressing) Start: 01/10/24 Expected End: 04/18/24 General/Ortho Functional Outcome Measure: Patient will improve SPADI to no more than 15% (Progressing) Start: 01/10/24 Expected End: 04/18/24 Plan Frequency and Duration: 1/wk for 5 weeks Therapeutic Contents: client education, group therapy, home exercise program, manual therapy techniques, neuromuscular re-education, therapeutic activities, therapeutic exercise, and modalities as needed Plan for next session: progress DNF, strength of postural stabilizers. Address R shoulder when image rules out dislocation/fracture. Continue manual as needed to L side neck/shoulder and thoracic region. Risks and benefits were discussed with the patient and/or family, and the patient and/or family participated with the plan of care and agrees. Treatment Therapeutic Exercise Therapeutic Exercise Activity 1: chin tucks Activity 1 Comment: 1 x 10 Therapeutic Exercise Activity 6: open book Activity 6 Comment: 2 x 10 reps Therapeutic Exercise Activity 7: cross body stretch for shoulder Activity 7 Comment: 2 x 30 ea Therapeutic Activity # of Activities: 16 Therapeutic Activity 13: re-assessment completed and updates to HEP. evaluation of R shoulder and needs imaging to rule out fx/dislocationEducation on clinical exam findings, POC/goals, and HEP. Soft Tissue Mobilization Location: R upper trap, cervical PVM Body Position: Supine Comments: STM Location 2: L mid trap/rhomboid Body Position 2: Side lying Other Location: Cervical manual traction Body Position: Supine Comments: 3 x 45 sec holds Home Exercise Program: Progressed home exercise program and added stretch for rhomboid/MT and open book for mobility of thoracic region Time Entry Total Treatment Time Start Time: 0800 Stop Time: 0840 Time Calculation (min): 40 min PT Therapeutic Procedures Time Entry Therapeutic Exercise Time Entry: 10 Therapeutic Activity Time Entry: 20 Manual Therapy Time Entry: 10 Linda Randle PT, DPT, NCS documented in this [facility]01-09-2025 History of Present illness Narrative* Linda Randle PT - 02/14/2024 8:00 AM EST Images from the original note were not included. [facility] AT [facility] [address] [place] [address] [facility] [address] Dept: [phone] Dept PHYSICAL THERAPY TREATMENT Patient Name: Petar Alcocer : 1975 Date of Service: 02/14/2024 Referring Provider: Cristobal Otoole NP Visit #: 8 Diagnosis: Torticollis Mechanism of injury: Neck/shoulder pain and L UE numbness and tingling. Getting infusions the last few months for migraines and botox injections for the last 4 years to improve. Patient Preferences: Star Precautions/Red Flags: Yes medical precautions: Bipolar disorder, Hx of heart attack, PTSD, CVA, Adhesive allergy, NO TAPING Subjective Reports that things have been better since last visit and denies any radicular pain and reports that pain today is local to neck/UT area and 3/10. She does have inc pain in shoulder when she bends down. Compliance with HEP: Yes Objective Objective measurements not taken today. Treatment Therapeutic Activity # of Activities: 13 Therapeutic Activity 8: Rows standing Activity 8 Comment: 2 x 10 reps RTB Therapeutic Activity 9: B Shoulder extension Activity 9 Comment: RTB 2 x 10 reps Therapeutic Activity 10: paloff press Activity 10 Comment: RTB x 10 reps, x 5 reps Therapeutic Activity 11: lift to eye level shelf Activity 11 Comment: 0.5kg ball x 10 reps ea UE, then x 5 reps ea Therapeutic Activity 12: overhead press Activity 12 Comment: air; 2 x 10 reps Soft Tissue Mobilization Location: R upper trap, cervical PVM Body Position: Prone Comments: STM Joint Mobilization Location: cervical Body Position: Prone Comments: manual traction Other Location: Cervical manual traction Body Position: Supine Home Exercise Program: Deferred Assessment Skilled physical therapy interventions utilized to improve patient s impairments and work towards established goals. Patient response to treatment: Ability to progress clinical program this date to include more standing and resistance based postural exercises. Added functional lift ot shelf with moderate fatigue. If tolerated these ex well; plan on adding to HEP. Patient will benefit from continued physical therapy to progress home program and functional strength The rationale for today s treatment was explained to the patient. Verbal cues were provided for correct form with all exercises. Advised patient to continue with Home Exercise Program (HEP). Goals General/Ortho Patient will be independent with HEP. (Progressing) Start: 01/10/24 Expected End: 03/10/24 Patient will report decreased pain at neck/shoulder to no more than 5/10 in order to be able to perform ADLs without limitation. (Progressing) Start: 01/10/24 Expected End: 03/10/24 Patient will increase ROM of L shoulder and neck to WFL without increased pain to be able to reach back for bra and back of neck for grooming. (Progressing) Start: 01/10/24 Expected End: 03/10/24 Patient will increase strength in L UE to 4/5 grossly to be able to use L arm for ADLs (Progressing) Start: 01/10/24 Expected End: 03/10/24 Functional Outcome Measure: Patient will improve NDI to no more than 10 (Not Addressed) Start: 01/10/24 Expected End: 03/10/24 General/Ortho Functional Outcome Measure: Patient will improve SPADI to no more than 15% (Not Addressed) Start: 01/10/24 Expected End: 03/10/24 Plan Plan for next session: add to HEP rows, B sh ext if tolerated from last visit. Progress functional activities; trial UBE if pain was no worse after last visit. Time Entry Total Treatment Time Start Time: 0800 Stop Time: 0830 Time Calculation (min): 30 min PT Therapeutic Procedures Time Entry Therapeutic Activity Time Entry: 17 Manual Therapy Time Entry: 10 Linda Randle PT, DPT ,NCS documented in this [facility]01-03-2025 History of Present illness Narrative* Linda Randle PT - 02/08/2024 11:30 AM EST Images from the original note were not included. [facility] [address] [facility] [address] Dept: [phone] Dept PHYSICAL THERAPY TREATMENT Patient Name: Petar Alcocer : 1975 Date of Service: 02/08/2024 Referring Provider: Cristobal Otoole NP Visit #: 7 Diagnosis: Torticollis Mechanism of injury: Neck/shoulder pain and L UE numbness and tingling. Getting infusions the last few months for migraines and botox injections for the last 4 years to improve. Patient Preferences: Star Precautions/Red Flags: Yes medical precautions: Bipolar disorder, Hx of heart attack, PTSD, CVA, Adhesive allergy, NO TAPING Subjective Reports that she has been doing the exercises and she feels more sore. Reports the prone ones are the worst. Reports 6/10 pain today. Compliance with HEP: Yes Objective Objective measurements not taken today. Treatment Therapeutic Activity # of Activities: 7 Therapeutic Activity 5: supine bilateral shoulder ER Activity 5 Comment: RTN 2x10 Therapeutic Activity 6: bow and arrow supine Activity 6 Comment: RTB 2 x 10 reps Therapeutic Activity 7: Serratus punches B Activity 7 Comment: 2 x 10 reps Soft Tissue Mobilization Location: R upper trap, cervical PVM Body Position: Prone Comments: STM Joint Mobilization Location: cervical Body Position: Prone Comments: manual traction Other Location: Cervical manual traction Body Position: Supine Home Exercise Program: Progressed home exercise program Assessment Skilled physical therapy interventions utilized to improve patient s impairments and work towards established goals. Patient response to treatment: Modified scapular strengthening this date to supine due to decreasedtolerance to standing or prone. Fair tolerance to adjustments. Decreased pain to 4/10 after manual intervention. Patient will benefit from continued physical therapy to progress as tolerated The rationale for today s treatment was explained to the patient. Verbal cues were provided for correct form with all exercises. Advised patient to continue with Home Exercise Program (HEP). Goals General/Ortho Patient will be independent with HEP. (Progressing) Start: 01/10/24 Expected End: 03/10/24 Patient will report decreased pain at neck/shoulder to no more than 5/10 in order to be able to perform ADLs without limitation. (Progressing) Start: 01/10/24 Expected End: 03/10/24 Patient will increase ROM of L shoulder and neck to WFL without increased pain to be able to reach back for bra and back of neck for grooming. (Progressing) Start: 01/10/24 Expected End: 03/10/24 Patient will increase strength in L UE to 4/5 grossly to be able to use L arm for ADLs (Progressing) Start: 01/10/24 Expected End: 03/10/24 Functional Outcome Measure: Patient will improve NDI to no more than 10 (Progressing) Start: 01/10/24 Expected End: 03/10/24 General/Ortho Functional Outcome Measure: Patient will improve SPADI to no more than 15% (Progressing) Start: 01/10/24 Expected End: 03/10/24 Plan Plan for next session: progress gently and in supine positions. Time Entry Total Treatment Time Start Time: 1130 Stop Time: 1200 Time Calculation (min): 30 min PT Therapeutic Procedures Time Entry Therapeutic Activity Time Entry: 17 Manual Therapy Time Entry: 10 Linda Randle PT, DPT, NCS documented in this [facility]12-30-2024 History of Present illness Narrative* Cherelle Valerio, ELAN - 02/04/2024 8:30 AM EST Images from the original note were not included. [facility] [address] [facility] [address] Dept: [phone] Dept PHYSICAL THERAPY TREATMENT Patient Name: Petar Alcocer : 1975 Date of Service: 02/04/2024 Referring Provider: Cristobal Otoole NP Visit #: 6 Diagnosis: Torticollis Mechanism of injury: Neck/shoulder pain and L UE numbness and tingling. Getting infusions the last few months for migraines and botox injections for the last 4 years to improve. Patient Preferences: Star Precautions/Red Flags: Yes medical precautions: Bipolar disorder, Hx of heart attack, PTSD, CVA, Adhesive allergy, NO TAPING Subjective 4/10. Neck and shoulder are good, but that pinched nerve is still there. Compliance with HEP: Yes Objective Objective measurements not taken today. Treatment Therapeutic Activity Therapeutic Activity 1: Prone scap retraction Activity 1 Comment: 2 x 10 reps Therapeutic Activity 4: UBE 120 rpm Activity 4 Comment: 3' -changing directions every 30 seconds. Therapeutic Activity 5: supine bilateral shoulder ER Activity 5 Comment: RTN 2x10 Soft Tissue Mobilization Location: R upper trap, cervical PVM Body Position: Supine Comments: STM Other Location: Cervical manual traction Body Position: Supine Home Exercise Program: Deferred Assessment Skilled physical therapy interventions utilized to improve patient s impairments and work towards established goals. Patient response to treatment: Progressed supine strengthening exercises this date. Patient was fatigued with progression. Patient was fatigued with prone exercises this date. Patient will benefit from continued physical therapy to progress postural and UE strength The rationale for today s treatment was explained to the patient. Verbal cues were provided for correct form with all exercises. Advised patient to continue with Home Exercise Program (HEP). Goals General/Ortho Patient will be independent with HEP. (Progressing) Start: 01/10/24 Expected End: 03/10/24 Patient will report decreased pain at neck/shoulder to no more than 5/10 in order to be able to perform ADLs without limitation. (Progressing) Start: 01/10/24 Expected End: 03/10/24 Patient will increase ROM of L shoulder and neck to WFL without increased pain to be able to reach back for bra and back of neck for grooming. (Progressing) Start: 01/10/24 Expected End: 03/10/24 Patient will increase strength in L UE to 4/5 grossly to be able to use L arm for ADLs (Progressing) Start: 01/10/24 Expected End: 03/10/24 Functional Outcome Measure: Patient will improve NDI to no more than 10 (Not Addressed) Start: 01/10/24 Expected End: 03/10/24 General/Ortho Functional Outcome Measure: Patient will improve SPADI to no more than 15% (Not Addressed) Start: 01/10/24 Expected End: 03/10/24 Plan Plan for next session: continue with strengthening exercises. Consider supine horizontal abd and prone T, Y Time Entry Total Treatment Time Start Time: 834 Stop Time: 899 Time Calculation (min): 25 min PT Therapeutic Procedures Time Entry Therapeutic Activity Time Entry: 13 Manual Therapy Time Entry: 10 Cherelle Valerio PTA Cosigned by Trena Beebe PT at 02/04/2024 12:55 PM EST documented in this [facility]12-26-2024 History of Present illness Narrative* Cherelle Valerio PTA - 01/31/2024 8:00 AM EST Images from the original note were not included. [facility] [address] [place] [address] [place] [address] Dept: [phone] Dept PHYSICAL THERAPY TREATMENT Patient Name: Petar Alcocer : 1975 Date of Service: 01/31/2024 Referring Provider: Cristobal Otoole NP Visit #: 5 Diagnosis: Torticollis Mechanism of injury: Neck/shoulder pain and L UE numbness and tingling. Getting infusions the last few months for migraines and botox injections for the last 4 years to improve. Patient Preferences: Star Precautions/Red Flags: Yes medical precautions: Bipolar disorder, Hx of heart attack, PTSD, CVA, Adhesive allergy, NO TAPING Subjective 5/10. I get a pain in my shoulder blade when I lean over. Its more a tightness in my shoulder/neck/back area. Compliance with HEP: Yes Objective Objective measurements not taken today. Treatment Therapeutic Activity Therapeutic Activity 1: Prone scap retraction Activity 1 Comment: 2 x 10 reps Therapeutic Activity 2: Prone chin tucks Activity 2 Comment: 2 x 10 reps Therapeutic Activity 3: Prone scap c UE ext Activity 3 Comment: x 10 reps Therapeutic Activity 4: UBE 120 rpm Activity 4 Comment: 3' -changing directions every 30 seconds. Soft Tissue Mobilization Location: R upper trap, cervical PVM Body Position: Supine Comments: STM Home Exercise Program: Deferred Assessment Skilled physical therapy interventions utilized to improve patient s impairments and work towards established goals. Patient response to treatment: Patient completed session with no increase in pain level. Patient required verbal and tactile cues for proper form. Patient was fatigued with added UBE. Patient will benefit from continued physical therapy to progress UE strength and stability. The rationale for today s treatment was explained to the patient. Verbal cues were provided for correct form with all exercises. Advised patient to continue with Home Exercise Program (HEP). Goals General/Ortho Patient will be independent with HEP. (Progressing) Start: 01/10/24 Expected End: 03/10/24 Patient will report decreased pain at neck/shoulder to no more than 5/10 in order to be able to perform ADLs without limitation. (Progressing) Start: 01/10/24 Expected End: 03/10/24 Patient will increase ROM of L shoulder and neck to WFL without increased pain to be able to reach back for bra and back of neck for grooming. (Progressing) Start: 01/10/24 Expected End: 03/10/24 Patient will increase strength in L UE to 4/5 grossly to be able to use L arm for ADLs (Progressing) Start: 01/10/24 Expected End: 03/10/24 Functional Outcome Measure: Patient will improve NDI to no more than 10 (Not Addressed) Start: 01/10/24 Expected End: 03/10/24 General/Ortho Functional Outcome Measure: Patient will improve SPADI to no more than 15% (Not Addressed) Start: 01/10/24 Expected End: 03/10/24 Plan Plan for next session: progress postural strength and stability as patient can tolerate. Time Entry Total Treatment Time Start Time: 0830 Stop Time: 0900 Time Calculation (min): 30 min PT Therapeutic Procedures Time Entry Therapeutic Activity Time Entry: 13 Manual Therapy Time Entry: 15 Cherelle Valerio PTA Cosigned by Bette Laurent PT at 01/31/2024 9:40 AM EST documented in this [facility]12-20-2024 NoteHNO ID: [id number] Author: KEVIN BALDWIN PA-C Service: ? Author Type: Physician [employer] Wel[employer] Type: Progress Notes Filed: 01/25/2024 14:26 Note Text: This note was created using Meuugameriter. Subjective Brittney Alcocer is a 49 year old female. HPI Presents with tongue pain and sore throat over the past 2 days. She had some nasal congestion as well. She did get all of her top teeth pulled January 13. She thinks this may be irritated her tongue as it is hitting the roof of her mouth now. She is a smoker. She also does use albuterol. She thinks she was on antibiotic about a month ago as well. Denies history of thrush. She is not diabetic. Review of Systems HENT: Positive for congestion and mouth sores. Negative for ear pain. Respiratory: Negative. Cardiovascular: Negative. Gastrointestinal: Negative. Genitourinary: Negative. Musculoskeletal: Negative. All other systems reviewed and are negative. 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 SYNDROME Unspecified asthma(493.90) occasional inhaler Urinary calculus, unspecified 12/2005 Renal stones: left kidney per CT Current Outpatient Medications Medication Sig Dispense Refill ondansetron orally disintegrating (ZOFRAN ODT) 8 mg disintegrating tablet Take 1 tablet by mouth every 8 hours as needed for nausea/vomiting. 60 tablet 1 albuterol HFA (PROVENTIL HFA, VENTOLIN HFA) 90 mcg/actuation inhaler Inhale 2 Puffs as instructed every 4 hours as needed for wheezing/shortness of breath. 1 Each 11 mirabegron (MYRBETRIQ) 50 mg Tb24 Take 1 tablet by mouth once daily. 30 tablet 5 fremanezumab-vfrm subcutaneus auto-injector 225 mg/1.5 mL ([employer]Line) Inject 1.5 mL subcutaneously once every month. Do not shake. 1.5 mL 11 lansoprazole (PREVACID) 30 mg capsule Take 1 capsule by mouth two times a day. 60 capsule 0 simvastatin (ZOCOR) 20 mg tablet Take 2 tablets by mouth daily at bedtime. 180 tablet 3 gabapentin (NEURONTIN) 800 mg tablet Take 1 tablet by mouth four times daily for 180 days. 120 tablet 5 rimegepant (NURTEC ODT) 75 mg disintegrating tablet Take 1 tablet at onset of headache/migraine. Only take 1 tablet as single dose in 24 hour period. 8 tablet 11 loratadine (CLARITIN) 10 mg tablet take 1 tablet by mouth once daily 28 tablet 11 MEDICATION, NON-DATABASE Marijuana for migraines nystatin (MYCOSTATIN) 100,000 unit/mL suspension Take 5 mL by mouth four times daily. 1tsp swish in mouth for several minutes, then swallow (or expectorate) 4 times daily until gone. 200 mL 0 Current Facility-Administered Medications Medication Dose Route Frequency Provider Last Rate Last Admin onabotulinum toxin type A 200 Units injection (BOTOX) 200 Units OTHER q 3 MONTHS Queenie Sparks APRN.GASOLINE LOCOMOTIVE CRANE OPERATOR 200 Units at 03/09/23 1030 PAST SURGICAL HISTORY Procedure Laterality Date BLADDER SURGERY HX 08/02/2020 Cystoscopy and Sling CARPAL TUNNEL Left 10/12/2016 Dr. Conner DELIVERY ONLY 1994 , low cervical DELIVERY ONLY 07/26/2005 , low cervical CHOLECYSTECTOMY 1995 COLONOSCOPY 09/03/2017 D. Evangelista. NORMAL. Repeat in 10 years. DILATION AND CURETTAGE DXAND/THER NONOBSTETRIC 2015 Dilation AND curettage X 2 EGD 02/25/2010 Abnormal LES, esophagitis, antral ulcers, retained fluid in stomach, pos H Pylori EGD 04/14/2008 antral gastritis, neg h Pylori EGD W/O BRSH SPEC VARICIES INJ 2021 EGD W/O BRSH SPEC VARICIES INJ 06/29/2021 EGD W/O BRSH SPEC VARICIES INJ 08/28/2023 acute inflammation of the esophagus consistent with GERD LAPAROSCOPY SURG CHOLECYSTECTOMY PAST SURGICAL HISTORY OF 2005 REMOVAL OF FATTY TUMOR FROM R ARM PAST SURGICAL HISTORY OF 2007 Carpal Tunnel Surgery on right wrist PAST SURGICAL HISTORY OF 09/27/2012 left wrist carpal tunnel release PAST SURGICAL HISTORY OF Right 2017 partial nephrectomy VAGINAL HYSTERECTOMY 12/24/2019 WART REMOVAL WHI Right 09/03/2018 Removal of wart on third finger right hand - Dr. Herrera FAMILY HISTORY Problem Relation Age of Onset Hypertension Mother Psychiatry (more content not included)...[facility]12-19-2024 History of Present illness Narrative* Linda Randle, PT - 01/24/2024 8:00 AM EST Images from the original note were not included. [facility] [address] [facility] [address] Dept: [phone] Dept PHYSICAL THERAPY TREATMENT Patient Name: Petar Alcocer : 1975 Date of Service: 01/24/2024 Referring Provider: Cristobal Otoole NP Visit #: 4 Diagnosis: Torticollis Mechanism of injury: Neck/shoulder pain and L UE numbness and tingling. Getting infusions the last few months for migraines and botox injections for the last 4 years to improve. Patient Preferences: Star Precautions/Red Flags: Yes medical precautions: Bipolar disorder, Hx of heart attack, PTSD, CVA, Adhesive allergy, NO TAPING Subjective Reports pain level 7/10 this morning and very sore in the L shoulder/neck. Reports chin tucks do cause more neck stiffness but she has been trying to perform them consistently Compliance with HEP: Yes Objective Objective measurements not taken today. Treatment Therapeutic Activity # of Activities: 4 Therapeutic Activity 1: Prone scap retraction Activity 1 Comment: 2 x 10 reps Therapeutic Activity 2: Prone chin tucks Activity 2 Comment: 2 x 10 reps Therapeutic Activity 3: Prone scap c UE ext Activity 3 Comment: x 10 reps Soft Tissue Mobilization Location: L upper trap, cervical PVM Body Position: Supine Comments: STM Other Location: Cervical manual traction Body Position: Supine Comments: 5 x 45 sec holds Home Exercise Program: Progressed home exercise program Assessment Skilled physical therapy interventions utilized to improve patient s impairments and work towards established goals. Patient response to treatment: Patient notes relief consistently with manual traction though the last round performed did reports some numbness in the L UE that was reduced after stopping activity. Progression of prone scap/chin tucks tolerated well without increased pain but notes challenging. Patient will benefit from continued physical therapy to progress postural stabilization, ROM and continue manual intervention for pain reduction. The rationale for today s treatment was explained to the patient. Verbal cues were provided for correct form with all exercises. Advised patient to continue with Home Exercise Program (HEP). Goals General/Ortho Patient will be independent with HEP. (Progressing) Start: 01/10/24 Expected End: 03/10/24 Patient will report decreased pain at neck/shoulder to no more than 5/10 in order to be able to perform ADLs without limitation. (Not Progressing) Start: 01/10/24 Expected End: 03/10/24 Patient will increase ROM of L shoulder and neck to WFL without increased pain to be able to reach back for bra and back of neck for grooming. (Progressing) Start: 01/10/24 Expected End: 03/10/24 Patient will increase strength in L UE to 4/5 grossly to be able to use L arm for ADLs (Progressing) Start: 01/10/24 Expected End: 03/10/24 Functional Outcome Measure: Patient will improve NDI to no more than 10 (Not Addressed) Start: 01/10/24 Expected End: 03/10/24 General/Ortho Functional Outcome Measure: Patient will improve SPADI to no more than 15% (Not Addressed) Start: 01/10/24 Expected End: 03/10/24 Plan Plan for next session: postural stabilization, ROM and continue manual intervention for pain reduction. Time Entry Total Treatment Time Start Time: 0800 Stop Time: 0830 Time Calculation (min): 30 min PT Therapeutic Procedures Time Entry Therapeutic Activity Time Entry: 10 Manual Therapy Time Entry: 19 Linda Randle PT, DPT, NCS documented in this [facility]12-16-2024 History of Present illness Narrative* Lindsey Mcgregor, POTATO PANCAKE FRIER - 01/21/2024 10:30 AM EST Images from the original note were not included. [facility] [address] [facility] [address] Dept: [phone] Dept PHYSICAL THERAPY TREATMENT Patient Name: Petar Alcocer : 1975 Date of Service: 01/21/2024 Referring Provider: Cristobal Otoole NP Visit #: 3 Diagnosis: Torticollis Mechanism of injury: Neck/shoulder pain and L UE numbness and tingling. Getting infusions the last few months for migraines and botox injections for the last 4 years to improve. Patient Preferences: Petar Subjective Pt reports pain at upper thoracic spine with bending forward. Pain has been more bothersome since beginning HEP. Current pain 7-8/10 at mid thoracic with bending down. Avoiding using L UE to drive. Compliance with HEP: Yes Objective Objective measurements not taken today. Treatment Therapeutic Exercise Therapeutic Exercise Activity 1: chin tucks Activity 1 Comment: 1 x 10 Therapeutic Exercise Activity 5: seated thorcic extension with towel roll Activity 5 Comment: 1 x 5 Therapeutic Exercise Activity 17: Pulleys flex Activity 17 Comment: 2 min Soft Tissue Mobilization Location: L upper trap Body Position: Supine Comments: STM Joint Mobilization Location: cervical Body Position: Supine Comments: gentle PA and rotational mobs Other Location: Cervical manual traction Body Position: Supine Comments: 5 x 45 sec holds Home Exercise Program: Deferred Assessment Skilled physical therapy interventions utilized to improve patient s impairments and work towards established goals. Patient response to treatment: attempted thoracic extension, pt reported increased 'nerve pain'. Ptc/o increased central cervical pain with seated chin tuck. Relief of neck and L shoulder pain during manual cervical traction. Pt tender to palpation at C 5-6, and L upper trap. Patient will benefit from continued physical therapy to decrease pain, symptoms; improve strength and function. The rationale for today s treatment was explained to the patient. Verbal cues were provided for correct form with all exercises. Advised patient to continue with Home Exercise Program (HEP). Goals General/Ortho Patient will be independent with HEP. (Not Progressing) Start: 01/10/24 Expected End: 03/10/24 Patient will report decreased pain at neck/shoulder to no more than 5/10 in order to be able to perform ADLs without limitation. (Not Progressing) Start: 01/10/24 Expected End: 03/10/24 Patient will increase ROM of L shoulder and neck to WFL without increased pain to be able to reach back for bra and back of neck for grooming. (Not Progressing) Start: 01/10/24 Expected End: 03/10/24 Patient will increase strength in L UE to 4/5 grossly to be able to use L arm for ADLs (Not Progressing) Start: 01/10/24 Expected End: 03/10/24 Functional Outcome Measure: Patient will improve NDI to no more than 10 (Not Addressed) Start: 01/10/24 Expected End: 03/10/24 General/Ortho Functional Outcome Measure: Patient will improve SPADI to no more than 15% (Not Addressed) Start: 12/05/24 Expected End: 03/10/24 Plan Plan for next session: assess response to increased MT. Progress as tolerated Time Entry Total Treatment Time Start Time: 1025 Stop Time: 1053 Time Calculation (min): 28 min PT Therapeutic Procedures Time Entry Therapeutic Exercise Time Entry: 10 Manual Therapy Time Entry: 18 Lindsey Mcgregor PTA Cosigned by Linda Randle, PT at 01/21/2024 11:28 AM EST documented in this [facility]12-12-2024 History of Present illness Narrative* Amie Loyola PTA - 01/17/2024 2:00 PM EST Images from the original note were not included. [facility] [employer] [facility] [address] [facility] [address] Dept: [phone] Dept PHYSICAL THERAPY TREATMENT Patient Name: Petar Alcocer : 1975 Date of Service: 01/17/2024 Referring Provider: Cristobal Otoole NP Visit #: 2 Diagnosis: Anesthesia of skin Mechanism of injury: Neck/shoulder pain and L UE numbness and tingling. Getting infusions the last few months for migraines and botox injections for the last 4 years to improve. Patient Preferences: Star Precautions/Red Flags: Yes medical precautions: Bipolar disorder, Hx of heart attack, PTSD, CVA, Adhesive allergy, NO TAPING Subjective Patient reports she just had surgery on her teeth on Sunday, and it has increased her pain levels in her upper back. She hasn't been compliant with her exercises because of trying to lay down and recuperate. Patient reports pain in upper back at 6-7/10. She gets increased pain with bending down andlooking to the right side. Compliance with HEP: No Objective Objective measurements not taken today. Treatment Therapeutic Exercise # of Activities: 17 Therapeutic Exercise Activity 1: chin tucks Activity 1 Comment: 1 x 10 (corrected form, patient reported decreased pain after performing) Therapeutic Exercise Activity 10: Scap retraction in supine Activity 10 Comment: 1 x 10 Therapeutic Exercise Activity 16: Supine AAROM L shoulder dowel flexion Activity 16 Comment: 2 x 10 Therapeutic Exercise Activity 17: Pulleys flex Activity 17 Comment: 2 min Other Location: Cervical manual traction Body Position: Supine Comments: 5 x 45 sec holds Home Exercise Program: Deferred Assessment Skilled physical therapy interventions utilized to improve patient s impairments and work towards established goals. Patient response to treatment: Patient had increased pain with use of dowel for AAROM, but did not have increased pain with pulleys. Avoided any prone exercises due to recent dental surgery. Patient had reduction in symptoms with chin tucks and manual traction, and corrected form on chin tucks. Advised patient to perform chin tucks as frequently as needed to reduce symptoms. Patient is progressing towards goals for ROM and pain reduction. Patient will benefit from continued physical therapy to continue to progress L shoulder ROM and reduce symptoms for return to PLOF. The rationale for today s treatment was explained to the patient. Verbal cues were provided for correct form with all exercises. Advised patient to continue with Home Exercise Program (HEP). Goals General/Ortho Patient will be independent with HEP. (Progressing) Start: 01/10/24 Expected End: 03/10/24 Patient will report decreased pain at neck/shoulder to no more than 5/10 in order to be able to perform ADLs without limitation. (Progressing) Start: 01/10/24 Expected End: 03/10/24 Patient will increase ROM of L shoulder and neck to WFL without increased pain to be able to reach back for bra and back of neck for grooming. (Progressing) Start: 01/10/24 Expected End: 03/10/24 Patient will increase strength in L UE to 4/5 grossly to be able to use L arm for ADLs (Progressing) Start: 01/10/24 Expected End: 03/10/24 Functional Outcome Measure: Patient will improve NDI to no more than 10 (Not Addressed) Start: 01/10/24 Expected End: 03/10/24 General/Ortho Functional Outcome Measure: Patient will improve SPADI to no more than 15% (Not Addressed) Start: 01/10/24 Expected End: 03/10/24 Plan Plan for next session: Continue pulleys for AAROM, manual cervical traction PRN. Assess if patient was able to get back to regular HEP, and try prone strengthening when dental surgery pain is gone. Time Entry Total Treatment Time Start Time: 1400 Stop Time: 1427 Time Calculation (min): 27 min PT Therapeutic Procedures Time Entry Therapeutic Exercise Time Entry: 17 Manual Therapy Time Entry: 8 Amie Loyola PTA Cosigned by Trena Beebe, PT at 01/17/2024 5:08 PM EST documented in this [facility]12-05-2024 History of Present illness Narrative* Linda Randle, PT - 01/10/2024 8:00 AM EST Images from the original note were not included. [facility] [address] [facility] [address] Dept: [phone] Dept PHYSICAL THERAPY EVALUATION Patient Name: Petar Alcocer : 1975 Date of Service: 01/10/2024 Referring Provider: Cristobal Otoole NP Visit #: 1 Diagnosis: Anesthesia of skin Torticollis Pain in left shoulder General Information Mechanism of injury: Neck/shoulder pain and L UE numbness and tingling. Getting infusions the last few months for migraines and botox injections for the last 4 years to improve. 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 PSHX: Petar has no past surgical history on file. Have you experienced any anxiety or depression?: No Have you experienced thoughts of self-harm or suicidal thoughts?: No Social D[employer] of [employer] Reviewed: Yes Physician follow-up appointment?: No Subjective Chief Complaint: Neck and B shoulder pain that started about 1 year ago. No DASIA and reports that she has a hx of migraines. 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 Also after lifting/moving groceries. L neck/shoulder pain > R. Pain: Current: 6/10 Best: 0/10 Worst: 20/10 Symptoms Aggravated by: Reports increases with bending down where pain runs into shoulders. Ice. Symptoms Relieved by: rest, hot pack min Prior Level of Function: Independent Current Level of Function: Lifting is tough and she can only manage light objects 10-20# from the floor; from table can lift 50#. Cannot get on/off floor and has to crawl to object. Patient s Stated Goal: Improve use of L UE and dec pain of neck/arm Outcome Measures Neck Disability Index: (no BRICENO); 26% disability SPADI: 79.2% disability Objective CERVICAL SPINE Observation: FHRS Date Recorded: 01/10/24 Cervical AROM Degrees Flexion (flex) 30 p! Extension (ext) 60 p! Right side bending (SBR) 40 Left side bending (SBL) 40 p! Right rotation (rotR) 60 Left rotation (rotL) 20 p! Deep Neck Flexor (DNF) Endurance Test= DNT seconds. Joint mobility: Hypomobile and painful to light mobilization Palpation: moderate turgor in cervical PVM and L RC (supraspinatus, infraspinatus) , rhomboids Flexibility: moderate limitation in neck mobility to the L Special Tests: Retraction: positive Spurling's: right positive and left positive ULTT - Median: left positive ULTT - Radial: left negative ULTT - Ulnar: left negative SHOULDER Date Recorded: 01/10/24 Upper Extremity ROM (degrees) Right Left AROM PROM AROM PROM Shoulder Flexion 164 120 p! 140 p!! Shoulder Abduction 155 100 p! 130 p!! Shoulder External Rotation (ER) T3 C2 80 Shoulder Internal Rotation (IR) R mid flank/rib L lower flank 70 p! Upper Extremity Strength Right Left Shoulder Flexion 4 3- Shoulder Abduction 4 3- Shoulder External Rotation (ER) 4 3+ Shoulder Internal Rotation (IR) 4 3 Elbow Flexion 4 3+ Elbow Extension 4 3+ Wrist Flexion 5 4 Wrist Extension 5 4 RHD Dynamometer Bank Vault Attendant Strength Testing (measured in lbs.) Date 01/10/2024 R L Full Bank Vault Attendant 45# 40# Tip Pinch 10# 6# Keyfob Bank Vault Attendant 14# 10# Tripod 10# 10# Scapular Strength Right Left Lower Trapezius DNT DNT Middle Trapezius Poor Poor Rhomboids Poor Poor Joint mobility: Hypomobile L Special Tests: Empty Can: left positive Lift Off: left positive Painful Arc: left positive Assessment Star is a 49 y.o. patient with chief complaint of neck and L shoulder limitations and pain, who presents with signs and symptoms consistent with cervical radiculopathy and RC involvement to unknown extent. Patients hx of back pain and migraines are factors that may limit or delay progress as expected. The patient would benefit from skilled physical therapy to address decreased strength, decreasedrange of motion, orthopedic restrictions, pain, soft tissue impairment, and impaired functional activities. Evaluation complexity is moderate secondary to: patient has 3 or more personal factors and/or comorbidities that will affect plan of care, therapy will be addressing 3 or more elements, and clinical presentation is evolving. Body Systems Affected: musculoskeletal and neuromuscular Rehab Potential: [employer] Preferences: demonstration, explanation, performance, and printed materials Barriers to Rehab: age and chronicity Goals General/Ortho Patient will be independent with HEP. (Initiated) Start: 01/10/24 Expected End: 03/10/24 Patient will report decreased pain at neck/shoulder to no more than 5/10 in order to be able to perform ADLs without limitation. (Initiated) Start: 01/10/24 Expected End: 03/10/24 Patient will increase ROM of L shoulder and neck to WFL without increased pain to be able to reach back for bra and back of neck for grooming. (Initiated) Start: 01/10/24 Expected End: 03/10/24 Patient will increase strength in L UE to 4/5 grossly to be able to use L arm for ADLs (Initiated) Start: 01/10/24 Expected End: 03/10/24 Functional Outcome Measure: Patient will improve NDI to no more than 10 (Initiated) Start: 01/10/24 Expected End: 03/10/24 General/Ortho Functional Outcome Measure: Patient will improve SPADI to no more than 15% (Initiated) Start: 01/10/24 Expected End: 02/03/25 Plan Frequency and Duration: 2/wk for 5 weeks Therapeutic Contents: client education, group therapy, home exercise program, manual therapy techniques, neuromuscular re-education, therapeutic activities, therapeutic exercise, and modalities as needed Plan for next session: progress postural stabilization, shoulder AAROM and strengthening gently. STM as needed. Responds positively to manual traction at neck. Risks and benefits were discussed with the patient and/or family, and the patient and/or family participated with the plan of care and agrees. Treatment Therapeutic Exercise Therapeutic Exercise Activity 1: chin tucks Activity 1 Comment: 2 x 10 reps Therapeutic Exercise Activity 2: Scap retraction Activity 2 Comment: 2 x 10 reps Therapeutic Exercise Activity 3: clasped hands AAROM supine flexion Activity 3 Comment: 2 x 10 reps Therapeutic Exercise Activity 4: Cervical rotation Activity 4 Comment: 2 x 10 reps Education on clinical exam findings, POC/goals, and HEP. Home Exercise Program: Created Time Entry Total Treatment Time Start Time: 0750 Stop Time: 0850 Time Calculation (min): 60 min PT Evaluation Time Entry PT Evaluation (Moderate) Time Entry: 30 PT Therapeutic Procedures Time Entry Therapeutic Exercise Time Entry: 15 Therapeutic Activity Time Entry: 10 Linda Randle PT, DPT, NCS documented in [facility]12-02-2024 NoteName: Brittney Alcocer Date of : 1975 Referring physician: Sabas Reyes D.P.M. A report of nerve conduction studies and electromyography of both lower extremities Date of service: January 07, 2024 Findings: Sensory nerve conduction studies disclosed normal response latencies and amplitudes in the sural and superficial peroneal nerves bilaterally. Motor nerve conduction studies disclosed normal distal latencies, response amplitudes and conduction velocities in the peroneal/fibular nerves to both extensor digitorum brevis and tibialis anterior, and in the tibial nerves, bilaterally. Tibial nerve H-reflexes were normal bilaterally. Needle EMG examination disclosed normal spontaneous activity in the vastus medialis and lateralis, tibialis anterior, lateral gastrocnemius and extensor hallucis longus bilaterally. Due to tenderness in the foot area, there was insufficient activation of voluntary motor unit potentials to assess recruitment or morphology in the right extensor hallucis longus. Motor unit potential recruitment and morphology were normal in all other muscles examined. Interpretation: Nerve conduction studies and electromyography of both lower limbs were normal. There was no evidence of large-fiber peripheral neuropathy. Please note that these nerve conduction studies record the fastest responses from large myelinated nerve fibers, and may not detect (or may underestimate the severity of) neuropathies that preferentially affect small and unmyelinated fibers. These latter nerve fibers generally mediate sensations of pain and temperature. It is possible that the patient's symptoms may be related to a small-fiber neuropathy that would not be detected by this testing. Clinical correlation is advised. Joel Jain MD Location: Testing was conducted at [facility] as an outpatient.[facility]12-02-2024 Procedure note* Joel Jain MD - 01/07/2024 2:00 PM EST Name: Brittney Alcocer Date of : 1975 Referring physician: Sabas Reyes D.P.M. A report of nerve conduction studies and electromyography of both lower extremities Date of service: January 07, 2024 Findings: Sensory nerve conduction studies disclosed normal response latencies and amplitudes in the sural and superficial peroneal nerves bilaterally. Motor nerve conduction studies disclosed normal distal latencies, response amplitudes and conduction velocities in the peroneal/fibular nerves to both extensor digitorum brevis and tibialis anterior,and in the tibial nerves, bilaterally. Tibial nerve H-reflexes were normal bilaterally. Needle EMG examination disclosed normal spontaneous activity in the vastus medialis and lateralis, tibialis anterior, lateral gastrocnemius and extensor hallucis longus bilaterally. Due to tendernessin the foot area, there was insufficient activation of voluntary motor unit potentials to assess recruitment or morphology in the right extensor hallucis longus. Motor unit potential recruitment and morphology were normal in all other muscles examined. Interpretation: Nerve conduction studies and electromyography of both lower limbs were normal. There was no evidence of large-fiber peripheral neuropathy. Please note that these nerve conduction studies record the fastest responses from large myelinated nerve fibers, and may not detect (or may underestimate the severity of) neuropathies that preferentially affect small and unmyelinated fibers. These latter nerve fibers generally mediate sensations ofpain and temperature. It is possible that the patient's symptoms may be related to a small-fiber neuropathy that would not be detected by this testing. Clinical correlation is advised. Joel Jain MD Location: Testing was conducted at [facility] as an outpatient. [facility] Work Phone: 1(158) 365-503012-02-2024 Procedure note* Joel Jain MD - 01/07/2024 2:00 PM EST Name: Brittney Alcocer Date of : 1975 Referring physician: Sabas Reyes D.P.M. A report of nerve conduction studies and electromyography of both lower extremities Date of service: January 07, 2024 Findings: Sensory nerve conduction studies disclosed normal response latencies and amplitudes in the sural and superficial peroneal nerves bilaterally. Motor nerve conduction studies disclosed normal distal latencies, response amplitudes and conduction velocities in the peroneal/fibular nerves to both extensor digitorum brevis and tibialis anterior,and in the tibial nerves, bilaterally. Tibial nerve H-reflexes were normal bilaterally. Needle EMG examination disclosed normal spontaneous activity in the vastus medialis and lateralis, tibialis anterior, lateral gastrocnemius and extensor hallucis longus bilaterally. Due to tendernessin the foot area, there was insufficient activation of voluntary motor unit potentials to assess recruitment or morphology in the right extensor hallucis longus. Motor unit potential recruitment and morphology were normal in all other muscles examined. Interpretation: Nerve conduction studies and electromyography of both lower limbs were normal. There was no evidence of large-fiber peripheral neuropathy. Please note that these nerve conduction studies record the fastest responses from large myelinated nerve fibers, and may not detect (or may underestimate the severity of) neuropathies that preferentially affect small and unmyelinated fibers. These latter nerve fibers generally mediate sensations ofpain and temperature. It is possible that the patient's symptoms may be related to a small-fiber neuropathy that would not be detected by this testing. Clinical correlation is advised. Joel Jain MD Location: Testing was conducted at [place] [facility] as an outpatient. documented in this [facility]12-02-2024 History of Present illness Narrative* Linda Randle, DONNA - 01/07/2024 12:00 PM EST Images from the original note were not included. [facility] [address] [place] [address] [place] [address] Dept: [phone] Dept PHYSICAL THERAPY RE-EVALUATION/DISCHARGE Patient Name: Petar Alcocer : 1975 Date of Service: 01/07/2024 Referring Provider: Sabas Reyes DPM Visit #: 15 Diagnosis: Plantar fascial fibromatosis Mechanism of injury: 05/18/23 operation: 1. 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 Implantation of nerve of a branch of the common peroneal nerve into the peroneal muscle belly left lower leg 3. Neuroplasty dorsal left foot of the deep peroneal nerve Release of anterior compartment above the fibular head Neuroma removal off of fibular nerve LLE Extensor retinaculum release off of deep peroneal nerve Patient Preferences: Star Precautions/Red Flags: Yes medical precautions: bipolar disorder, Hx of heart attack, PTSD, CVA Adhesive allergy: no taping, wound on plantar surface of L foot, tinea pedis Subjective Chief Complaint: Reports when it hurts, feels tingling and painful like she was sitting on her feetand feels numbness and aching. Reports she feels she has to constantly move her feet and feels standing is most limited and can stand up to 1 hour with lots of movements. Seem better to so do socks/shoes. Reports knees are more limited on steps than the feet. Sleeping at night has been better overall but legs are restless and she feels she has to constantly move them. Pain: Current: /10 Best: /10 Worst: 11/14; reports 40 Outcome Measures Foot and Ankle Ability Measure (FAAM): 62/ =73.8% ability ; 12/05/23: 47 = 56%; 01/07/24: 80.9%ability Objective ANKLE Leg length: L longer than R Gait: Antalgic L Lower Extremity Strength Right Left Hip Flexion 5 5 Hip Abduction 4 4- p! Hip Extension 4- p! 4- p! Hip External Rotation (ER) 5 5 Hip Internal Rotation (IR) 5 5 Knee Extension 5 5 Knee Flexion 5 5 Ankle Dorsiflexion (DF) 5 5 Ankle Plantarflexion (PF) 5 5 Inversion 5 5 Eversion 5 5 Single Leg Stance (SLS) Balance L SLS= 30 seconds R SLS= 18 seconds Assessment Star is a 48 y.o. patient with chief complaint of heel pain and lower leg pain, who presents with signs and symptoms consistent with plantar fasciitis. The patient had a surgery done on the L foot that seems to exacerbate and/or contribute to her plantar fasciitis. The patient would benefit from skilled physical therapy to address decreased strength, decreased range of motion, pain, soft tissue impairment, impaired gait, and impaired functional activities. Patient is making gains towards goals and has comprehensive HEP. Patient feel comfortable with program and ready to DC. She feels exercises are helpful and feels better when she does them. She does still have a leg length discrepancy and gave her options she can get on [employer] to help improve the L LE and even out her pelvis. Goals Active General/Ortho Patient will be independent with HEP. (Completed) Start: 10/31/23 Expected End: 02/03/24 Resolved: 01/07/24 Patient will report decreased pain at no more than 4/10 in L foot/ankle to be able to improve participation in functional activities. (Not Progressing) Start: 10/31/23 Expected End: 02/03/24 Patient will increase strength in gross hip to at least 4+/5 and specifically L hip flexion to 4/5 to be able to improve distal stability and improve safety in functional activities. (Completed) Start: 10/31/23 Expected End: 02/03/24 Resolved: 12/05/23 Gait: Patient will demonstrate ability to appropriately bear weight on both lower extremities in stance. (Completed) Start: 10/31/23 Expected End: 02/03/24 Resolved: 12/05/23 Balance: Patient will improve SLS to to >20 sec to improve safety with transfers. (Progressing) Start: 10/31/23 Expected End: 02/03/24 Functional Outcome Measure: Patient will improve FAAM to no less than 85% ability (Progressing) Start: 10/31/23 Expected End: 02/03/24 Plan Patient no longer requires skilled PT services and will be discharged at this time. Thank you for this referral. For any questions on this patient s course of therapy, please call the clinic for clarification. Risks and benefits were discussed with the patient and/or family, and the patient and/or family participated with the plan of care and agrees. Treatment Re-assessment completed Home Exercise Program: Deferred Time Entry Total Treatment Time Start Time: 1155 Stop Time: 1225 Time Calculation (min): 30 min PT Therapeutic Procedures Time Entry Therapeutic Activity Time Entry: 30 Linda Randle PT, DPT, NCS documented in this [facility]11-27-2024 History of Present illness Narrative* Cherelle Valerio PTA - 01/02/2024 8:00 AM EST Images from the original note were not included. [facility] [employer] [facility] [employer] [place] [address] [facility] [address] Dept: [phone] Dept PHYSICAL THERAPY TREATMENT Patient Name: Petar Alcocer : 1975 Date of Service: 01/02/2024 Referring Provider: Sabas Reyes DPM Visit #: 14 Diagnosis: Plantar fascial fibromatosis Mechanism of injury: 05/18/23 operation: 1. 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 Implantation of nerve of a branch of the common peroneal nerve into the peroneal muscle belly left lower leg 3. Neuroplasty dorsal left foot of the deep peroneal nerve Release of anterior compartment above the fibular head Neuroma removal off of fibular nerve LLE Extensor retinaculum release off of deep peroneal nerve Patient Preferences: Star Precautions/Red Flags: Yes medical precautions: bipolar disorder, Hx of heart attack, PTSD, CVA Adhesive allergy: no taping, wound on plantar surface of L foot, tinea pedis Subjective 07/15. I got a cramp on my left foot and it was sore yesterday. Compliance with HEP: Yes Objective Objective measurements not taken today. Treatment Therapeutic Exercise Therapeutic Exercise Activity 5: Heel raises x3 Activity 5 Comment: 2# 10x ea Therapeutic Exercise Activity 6: Standing 3 way Hips Activity 6 Comment: 2# 2x10 ea Therapeutic Exercise Activity 7: retro gait with bar Activity 7 Comment: 2.5 plates, 10x Therapeutic Exercise Activity 11: balance- airex Activity 11 Comment: 1) WBOS 1', 2) NBOS-1' 3) mod tandem R/L 1' ea Therapeutic Exercise Activity 12: slant board stretch- gastroc and soleus Activity 12 Comment: 2x30 ea Therapeutic Exercise Activity 13: tandem ambulation Activity 13 Comment: 25' x1 Home Exercise Program: Deferred Assessment Skilled physical therapy interventions utilized to improve patient s impairments and work towards established goals. Patient response to treatment: Patient completed session with no increase in pain level. Patient required verbal cues for proper form on exercises. Patient was challenged with tandem ambulation and suffered 3 LOB, but was able to recover and did not suffer a fall. Patient will benefit from continued physical therapy to progress foot ankle strength The rationale for today s treatment was explained to the patient. Verbal cues were provided for correct form with all exercises. Advised patient to continue with Home Exercise Program (HEP). Goals General/Ortho Patient will be independent with HEP. (Progressing) Start: 10/31/23 Expected End: 02/03/24 Patient will report decreased pain at no more than 4/10 in L foot/ankle to be able to improve participation in functional activities. (Progressing) Start: 10/31/23 Expected End: 02/03/24 Balance: Patient will improve SLS to to >20 sec to improve safety with transfers. (Progressing) Start: 10/31/23 Expected End: 02/03/24 Functional Outcome Measure: Patient will improve FAAM to no less than 85% ability (Not Addressed) Start: 10/31/23 Expected End: 02/03/24 Plan Plan for next session: reassessment next visit by PT. Time Entry Total Treatment Time Start Time: 800 Stop Time: 830 Time Calculation (min): 30 min PT Therapeutic Procedures Time Entry Therapeutic Exercise Time Entry: Cherelle Valerio PTA Cosigned by Linda Randle PT at 01/02/2024 9:59 AM EST documented in this [facility]11-26-2024 NoteHNO ID: [id number] Author: SNOW QUICK PA-C Service: ? 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 Patient tells me that she has been dealing with nausea worse with eating. Will vomit intermittently. Taking Zofran but doesn't feel like it is helping. Denies GERD symptoms. Denies abdominal pain. Trying to keep to liquid diet. Notes a lot of constipation, moving bowels every few days in very small amounts. Getting some lower abdominal cramping before a BM. Denies rectal bleeding. EGD 08/28/2023: Impression: - Normal mucosa was found in the proximal esophagus. Biopsied. - Normal mucosa was found in the distal esophagus. Biopsied. - Z-line irregular, 38 cm from the incisors. - Gastroparesis, secondary to medication. Recommendation: - Patient has a contact number available for emergencies. The signs and symptoms of potential delayed complications were discussed with the patient. Return to normal activities tomorrow. Written discharge instructions were provided to the patient. - Resume previous diet. - Continue present medications. - Stop using MJ - Await pathology results. - Return to GI clinic as previously scheduled. FINAL DIAGNOSIS A. Esophagus, distal, biopsy: -Acute esophagitis with occasional intraepithelial eosinophils (up to 5 eosinophils per high-power field) -GMS, HSV and CMV stains to follow B. Esophagus, proximal, biopsy: -Acute esophagitis with occasional intraepithelial eosinophils (up to 10 eosinophils per high-power field) -GMS, HSV and CMV stains to follow Last OV with me 08/27/2023: Assessment/Plan (R10.13) Epigastric pain (primary encounter diagnosis) (R11.2) Nausea and vomiting, unspecified vomiting type (R13.10) Dysphagia, unspecified type 1. Epigastric pain -- Patient with epigastric pain, nausea and vomiting since August 16. Notes she has not been able to keep anything down. -- Continue on Lansoprazole 30 mg daily and Zofran. Offered Promethazine, declines this. -- Plan for EGD r/o PUD, H.pylori. -- BRAT diet as tolerated -- I do suspect patient is dehydrated due to orange urine, dizziness. Recommend ER evaluation, she declines. Increase fluids, electrolytes in diet. - EGD DIAGNOSTIC; Future 2. Nausea and vomiting, unspecified vomiting type -- Patient with epigastric pain, nausea and vomiting since August 16. Notes she has not been able to keep anything down. -- Continue on Lansoprazole 30 mg daily and Zofran. Offered Promethazine, declines this. -- Plan for EGD r/o PUD, H.pylori. -- BRAT diet as tolerated -- I do suspect patient is dehydrated due to orange urine, dizziness. Recommend ER evaluation, she declines. Increase fluids, electrolytes in diet. - EGD DIAGNOSTIC; Future 3. Dysphagia, unspecified type -- Notes dysphagia since symptoms started, feels very dry. -- Continue on Lansoprazole 30 mg daily and Zofran. Offered Promethazine, declines this. -- Plan for EGD r/o PUD, H.pylori. - EGD DIAGNOSTIC; Future Follow up in office PRN. Current Outpatient Medications Medication Sig diclofenac, EC, (VOLTAREN) 75 mg EC tablet Take 1 tablet by mouth every 12 hours. clindamycin (CLEOCIN) 150 mg capsule take 1 capsule by mouth three times daily until gone albuterol HFA (PROVENTIL HFA, VENTOLIN HFA) 90 mcg/actuation inhaler Inhale 2 Puffs as instructed every 4 hours as needed for wheezing/shortness of breath. mirabegron (MYRBETRIQ) 50 mg Tb24 Take 1 tablet by mouth once daily. fremanezumab-vfrm subcutaneus auto-injector 225 mg/1.5 mL (AJOVY) Inject 1.5 mL subcutaneously once every month. Do not shake. simvastatin (ZOCOR) 20 mg tablet Take 2 tablets by mouth daily at bedtime. gabapentin (NEURONTIN) 800 mg tablet Take 1 tablet by mouth four times daily for 180 days. rimegepant (NURTEC ODT) 75 mg disintegrating tablet Take 1 tablet at onset of headache/migraine. Only take 1 tablet as single dose in 24 hour period. ondansetron orally disintegrating (ZOFRAN ODT) 4 mg disintegrating tablet dissolve 1 tablet ON TONGUE every 8 hours if needed for nausea OR vomiting loratadine (CLARITIN) 10 mg tablet take 1 tablet by mouth once daily MEDICATION, NON-DATABASE Marijuana for migraines lansoprazole (PREVACID) 30 mg capsule Take 1 capsule by mouth two times a day. Current Facility-Administered Medications Medication Dose Route Frequency onabotulinum toxin type A 200 Units injection (BOTOX) 200 Units OTHER q 3 MONTHS ALLERGIES Allergen Reactions Citalopram Hydrobro* Anaphylaxis TACHYCARDIA Morphine GI Upset Amoxicillin GI Upset, Other: See Comments Makes me worse Asa [Salicylates] Hives Chocolate Effexor [Venlafaxin* Vomiting Naproxen Intolerance Depression Penicillin G GI (more content not included)...[facility] 12-31-2023 History of Present illness Narrative* Serg Sinha, POTATO PANCAKE FRIER - 12/31/2023 11:30 AM EST Images from the original note were not included. [facility] AT [address] [address] Dept: [phone] Dept PHYSICAL THERAPY TREATMENT Patient Name: Petar lAcocer : 1975 Date of Service: 12/31/2023 Referring Provider: Sabas Reyes DPM Visit #: [id number] Diagnosis: Plantar fascial fibromatosis Mechanism of injury: 05/18/23 operation: 1. 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 Implantation of nerve of a branch of the common peroneal nerve into the peroneal muscle belly left lower leg 3. Neuroplasty dorsal left foot of the deep peroneal nerve Release of anterior compartment above the fibular head Neuroma removal off of fibular nerve LLE Extensor retinaculum release off of deep peroneal nerve Patient Preferences: Star Precautions/Red Flags: Yes medical precautions: bipolar disorder, Hx of heart attack, PTSD, CVA Adhesive allergy: no taping, wound on plantar surface of L foot, tinea pedis Subjective Patient reporting pain of 100 over the weekend, doc did prescribe meds, but she can only take them at night due to drowsiness. Has to keep moving or she experiences burning sensation. Patient also has a script for back pain. Current pain in feet is a 20. Compliance with HEP: Yes Objective Objective measurements not taken today. Treatment Therapeutic Exercise Therapeutic Exercise Activity 1: Soleus stretch Activity 1 Comment: x30 ea Therapeutic Exercise Activity 2: Slant Board Stretch Activity 2 Comment: 2x30 Therapeutic Exercise Activity 3: NuStep Activity 3 Comment: x5 min, level 3, seat 6 Therapeutic Exercise Activity 4: Bosu Lunge Activity 4 Comment: x10 forward/lateral - 2lb cuff weights donned Therapeutic Exercise Activity 5: Heel raises Activity 5 Comment: x10 with 2lb cuff weights Therapeutic Exercise Activity 6: Standing 3 way Hips Activity 6 Comment: x10 ea; 2lb cuff weights donned Home Exercise Program: Deferred Assessment Skilled physical therapy interventions utilized to improve patient s impairments and work towards established goals. Patient response to treatment: Patient doing well with exercises this date. Patient reporting she enjoyed cuff weights on ankles as she was able to feel her feet better. Patient will benefit from continued physical therapy to address pain, ROM, and strength. The rationale for today s treatment was explained to the patient. Verbal cues were provided for correct form with all exercises. Advised patient to continue with Home Exercise Program (HEP). Goals General/Ortho Patient will be independent with HEP. (Progressing) Start: 10/31/23 Expected End: 02/03/24 Patient will report decreased pain at no more than 4/10 in L foot/ankle to be able to improve participation in functional activities. (Progressing) Start: 10/31/23 Expected End: 02/03/24 Balance: Patient will improve SLS to to >20 sec to improve safety with transfers. (Progressing) Start: 10/31/23 Expected End: 02/03/24 Functional Outcome Measure: Patient will improve FAAM to no less than 85% ability (Not Addressed) Start: 10/31/23 Expected End: 02/03/24 Plan Plan for next session: Continue to progress functional strength as tolerated with cuff weights on ankles. Time Entry Total Treatment Time Start Time: 1132 Stop Time: 1157 Time Calculation (min): 25 min PT Therapeutic Procedures Time Entry Therapeutic Exercise Time Entry: Serg Sinha PTA Cosigned by Linda Randle PT at 12/31/2023 12:34 PM EST documented in this [facility]11-22-2024 NoteHNO ID: [id number] Author: CRISTOBAL OTOOLE APRN.GASOLINE LOCOMOTIVE CRANE OPERATOR Service: ? Author Type: Nurse Practitioner Type: Progress Notes Filed: 01/20/2024 20:34 Note Text: Jossie Alcocer is a 48 year old female here today for left hand spasms. I reviewed past medical, surgical, social, and family histories today and updated chart. Allergies, chronic medications, and supplements were also reviewed. HPI Has NCS scheduled for legs - burning pain in her legs Her foot doctor has her on medication for this PT twice a week Getting shaking in the left hand, started about 1 week ago Tingling and numb No pain intermittent Started in morning then stops then at work Notices more when she's doing the dishes Feels better when she moves it around like circulation issue Almost feels like carpal tunnel is coming back Whole arm is numb No pain in shoulder or neck But was told by botox provider that her neck was really hard Has not been sleeping because of her legs - sleeps maybe 3 hours a night She would like to do some PT for her lower back, its going out on her PAST MEDICAL HISTORY Diagnosis Date Adjustment disorder with depressed mood Allergic rhinitis Arthritis of right knee Asthma Bilateral ovarian cysts Cholecystitis, unspecified 1994 Gallbladder removed Chronic pain syndrome Fibroids Gastric ulcer, unspecified as acute or chronic, without mention of hemorrhage or perforation, with obstruction occasional bleeding GERD (gastroesophageal reflux disease) 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 SYNDROME Unspecified asthma(493.90) occasional inhaler Urinary calculus, unspecified 12/2005 Renal stones: left kidney per CT PAST SURGICAL HISTORY Procedure Laterality Date BLADDER SURGERY HX 08/02/2020 Cystoscopy and Sling CARPAL TUNNEL Left 10/12/2016 Dr. Conner DELIVERY ONLY 1994 , low cervical DELIVERY ONLY 07/26/2005 , low cervical CHOLECYSTECTOMY 1995 COLONOSCOPY 09/03/2017 D. Evangelista. NORMAL. Repeat in 10 years. DILATION AND CURETTAGE DXAND/THER NONOBSTETRIC 2015 Dilation AND curettage X 2 EGD 02/25/2010 Abnormal LES, esophagitis, antral ulcers, retained fluid in stomach, pos H Pylori EGD 04/14/2008 antral gastritis, neg h Pylori EGD W/O BRSH SPEC VARICIES INJ 2021 EGD W/O BRSH SPEC VARICIES INJ 06/29/2021 EGD W/O BRS SPEC VARICIES INJ 08/28/2023 acute inflammation of the esophagus consistent with GERD LAPAROSCOPY SURG CHOLECYSTECTOMY PAST SURGICAL HISTORY OF 2005 REMOVAL OF FATTY TUMOR FROM R ARM PAST SURGICAL HISTORY OF 2006 Carpal Tunnel Surgery on right wrist PAST SURGICAL HISTORY OF 09/27/2012 left wrist carpal tunnel release PAST SURGICAL HISTORY OF Right 2017 partial nephrectomy VAGINAL HYSTERECTOMY 12/24/2019 WART REMOVAL WHI Right 09/03/2018 Removal of wart on third finger right hand - Dr. Herrera ALLERGIES Citalopram Hydrobromide, Morphine, Amoxicillin, Asa [Salicylates], Chocolate, Effexor [Venlafaxine Hcl], Naproxen, Penicillin G, Tape [Adhesive Tape-Silicones], Tomato, Tramadol, Trazodone, and Venlafaxine MEDICATIONS diclofenac, EC, (VOLTAREN) 75 mg EC tabletTake 1 tablet by mouth every 12 hours.Disp: Rfl: clindamycin (CLEOCIN) 150 mg capsuletake 1 capsule by mouth three times daily until goneDisp: Rfl: albuterol HFA (PROVENTIL HFA, VENTOLIN HFA) 90 mcg/actuation inhalerEVERY 4 HOURS NEEDED as needed for Sob AND/Or WheezingDisp: Rfl: mirabegron (MYRBETRIQ) 50 mg [id number] 1 tablet by mouth once daily.Disp: 30 tabletRfl: 5 fremanezumab-vfrm subcutaneus auto-injector 225 mg/1.5 mL (AJOVY)Inject 1.5 mL subcutaneously once every month. Do not shake.Disp: 1.5 mLRfl: 11 lansoprazole (PREVACID) 30 mg capsuleTake 1 capsule by mouth two times a day.Disp: 60 capsuleRfl: 0 simvastatin (ZOCOR) 20 mg tabletTake 2 tablets by mouth daily at bedtime.Disp: 180 tabletRfl: 3 gabapentin (NEURONTIN) 800 mg tabletTake 1 tablet by mouth four times daily for 180 days.Disp: 120 tabletRfl: 5 rimegepant (NURTEC ODT) 75 mg disintegrating tabletTake 1 tablet at onset of headache/migraine. Only take 1 tablet as single dose in 24 hour period.Disp: 8 tabletRfl: 11 ondansetron orally disintegrating (ZOFRAN ODT) 4 mg disintegrating tabletdissolve 1 tablet ON TONGUE every 8 hours if needed for nausea OR vomitingDisp: 20 tabletRfl: 11 loratadine (CLARITIN) 10 mg tablettake 1 tablet by mouth once dailyDisp: 28 tabletRfl: 11 MEDICATI (more content not included)...[facility]11-21-2024 History of Present illness Narrative* Cherelle Valerio PTA - 12/27/2023 8:00 AM EST Images from the original note were not included. [facility] [employer] [place] [address] [facility] [address] Dept: [phone] Dept PHYSICAL THERAPY TREATMENT Patient Name: Petar Alcocer : 1975 Date of Service: 12/27/2023 Referring Provider: Sabas Reyes DPM Visit #: 12 Diagnosis: Plantar fascial fibromatosis Mechanism of injury: 05/18/23 operation: 1. 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 Implantation of nerve of a branch of the common peroneal nerve into the peroneal muscle belly left lower leg 3. Neuroplasty dorsal left foot of the deep peroneal nerve Release of anterior compartment above the fibular head Neuroma removal off of fibular nerve LLE Extensor retinaculum release off of deep peroneal nerve Patient Preferences: Star Precautions/Red Flags: Yes medical precautions: bipolar disorder, Hx of heart attack, PTSD, CVA Adhesive allergy: no taping, wound on plantar surface of L foot, tinea pedis Subjective 7/10. I went to [employer] yesterday to get my meds and I could only stand for about 5 mins. My legsstarted hurting. I was putting more pressure on right leg and then when I would shift left side, I got pain from my mid calf down into my heel, I feel like I am going backwards. Compliance with HEP: Yes Objective Objective measurements not taken today. Treatment Therapeutic Exercise Therapeutic Exercise Activity 8: calf raises on leg press Activity 8 Comment: 3 plates, 2x10 Therapeutic Exercise Activity 9: leg press Activity 9 Comment: 3 plates, 2x10 Therapeutic Exercise Activity 11: balance- airex Activity 11 Comment: 1) WBOS 1', 2) NBOS-1' 3) mod tandem R/L 1' ea Therapeutic Exercise Activity 12: slant board stretch- gastroc and soleus Activity 12 Comment: 2x30 ea Soft Tissue Mobilization Location: L>R gastroc/plantar fascia Body Position: Prone Comments: [facility] Home Exercise Program: Deferred Assessment Skilled physical therapy interventions utilized to improve patient s impairments and work towards established goals. Patient response to treatment: Patient completed session with no increase in pain level. Patient tolerated exercises well. Patient had reduced turgor following manual. Patient will benefit from continued physical therapy to progress foot ankle strength The rationale for today s treatment was explained to the patient. Verbal cues were provided for correct form with all exercises. Advised patient to continue with Home Exercise Program (HEP). Goals General/Ortho Patient will be independent with HEP. (Progressing) Start: 10/31/23 Expected End: 02/03/24 Patient will report decreased pain at no more than 4/10 in L foot/ankle to be able to improve participation in functional activities. (Progressing) Start: 10/31/23 Expected End: 02/03/24 Balance: Patient will improve SLS to to >20 sec to improve safety with transfers. (Progressing) Start: 10/31/23 Expected End: 02/03/24 Functional Outcome Measure: Patient will improve FAAM to no less than 85% ability (Not Addressed) Start: 10/31/23 Expected End: 02/03/24 Plan Plan for next session: progress functional strength as patient can tolerate. Time Entry Total Treatment Time Start Time: 804 Stop Time: 831 Time Calculation (min): 27 min PT Therapeutic Procedures Time Entry Therapeutic Exercise Time Entry: 10 Manual Therapy Time Entry: 15 Cherelle Valerio PTA Cosigned by Linda Randle PT at 12/27/2023 9:51 AM EST documented in this [facility]11-16-2024 History of Present illness Narrative* Linda Randle PT - 12/22/2023 7:00 AM EST Images from the original note were not included. [facility] [employer] [facility] [employer] [place] [address] [place] [place] [address] [place] [address] Dept: [phone] Dept PHYSICAL THERAPY TREATMENT Patient Name: Petar Alcocer : 1975 Date of Service: 12/22/2023 Referring Provider: Sabas Reyes DPM Visit #: 11 Diagnosis: Plantar fascial fibromatosis Mechanism of injury: 05/18/23 operation: 1. 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 Implantation of nerve of a branch of the common peroneal nerve into the peroneal muscle belly left lower leg 3. Neuroplasty dorsal left foot of the deep peroneal nerve Release of anterior compartment above the fibular head Neuroma removal off of fibular nerve LLE Extensor retinaculum release off of deep peroneal nerve Patient Preferences: Star Precautions/Red Flags: Yes medical precautions: bipolar disorder, Hx of heart attack, PTSD, CVA Adhesive allergy: no taping, wound on plantar surface of L foot, tinea pedis Subjective 7/10 pain in both legs local to calf and heels. Reports went to work yesterday and was better when she was up and moving around. Reports standing still or resting increases pain in the heels. Nothinginto her back/thighs. Patient's feet are very tender to touch L>R and plantar fascia/achilles tendonitis distribution. Compliance with HEP: No Objective Objective measurements not taken today. Treatment Therapeutic Exercise Therapeutic Exercise Activity 4: prone lying Activity 4 Comment: flat x 2 min; prop x 5 min; prop press ups x 10 reps Therapeutic Exercise Activity 5: Glut sets Pron Activity 5 Comment: x 10 reps Therapeutic Exercise Activity 6: TrA bracing Activity 6 Comment: x 10 reps Therapeutic Exercise Activity 10: scap retraction prone Activity 10 Comment: x 10 reps THER ACT all above Soft Tissue Mobilization Location: L>R gastroc/plantar fascia Body Position: Prone Home Exercise Program: Progressed home exercise program Assessment Skilled physical therapy interventions utilized to improve patient s impairments and work towards established goals. Patient response to treatment: Able to reduce symptoms to near 0 with prone extension in propped position. Issued this sequence as well as isometrics of TrA/gluts/scap for improved postural/core stabilization. Unable to tolerate hip ext prone due to increased lumbar pain today. Manual completed to lower legs/feet for decreasing turgor and tenderness. Patient will benefit from continued physical therapy to progress strength of core/LEs The rationale for today s treatment was explained to the patient. Verbal cues were provided for correct form with all exercises. Advised patient to continue with Home Exercise Program (HEP). Goals General/Ortho Patient will be independent with HEP. (Progressing) Start: 10/31/23 Expected End: 02/03/24 Patient will report decreased pain at no more than 4/10 in L foot/ankle to be able to improve participation in functional activities. (Progressing) Start: 10/31/23 Expected End: 02/03/24 Balance: Patient will improve SLS to to >20 sec to improve safety with transfers. (Progressing) Start: 10/31/23 Expected End: 02/03/24 Functional Outcome Measure: Patient will improve FAAM to no less than 85% ability (Progressing) Start: 10/31/23 Expected End: 02/03/24 Plan Plan for next session: continue with functional strengthening as tolerated, consider continued prone activities for stabilization of core/LE strength Time Entry Total Treatment Time Start Time: 0700 Stop Time: 0730 Time Calculation (min): 30 min PT Therapeutic Procedures Time Entry Therapeutic Activity Time Entry: 15 Manual Therapy Time Entry: 15 Linda Randle, PT, DPT, NCS documented in this [facility]11-09-2024 History of Present illness Narrative* Kalpesh Dumont, POTATO PANCAKE FRIER - 12/15/2023 8:00 AM EST [facility] [address] [place] [place] [address] [place] [address] Dept: [phone] Dept PHYSICAL THERAPY TREATMENT Patient Name: Petar Alcocer : 1975 Date of Service: 12/15/2023 Referring Provider: Sabas Reyes DPM Visit #: 9 Diagnosis: Plantar fascial fibromatosis Mechanism of injury: 05/18/23 operation: 1. 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 Implantation of nerve of a branch of the common peroneal nerve into the peroneal muscle belly left lower leg 3. Neuroplasty dorsal left foot of the deep peroneal nerve Release of anterior compartment above the fibular head Neuroma removal off of fibular nerve LLE Extensor retinaculum release off of deep peroneal nerve Patient Preferences: Star Precautions/Red Flags: Yes medical precautions: bipolar disorder, Hx of heart attack, PTSD, CVA Adhesive allergy: no taping, wound on plantar surface of L foot, tinea pedis Subjective Pt reports pain of 7/8 in bilateral heels, L heel pain is > R heel pain. Pt has slight pain withLLE during 4 way hip exercises. Compliance with HEP: Yes Objective Objective measurements not taken today. Treatment Therapeutic Exercise Therapeutic Exercise Activity 1: Gastroc stretch Activity 1 Comment: 2x30' holds Therapeutic Exercise Activity 2: 3 way ankle Activity 2 Comment: 2x10 each green tb Therapeutic Exercise Activity 3: 4 way hip Activity 3 Comment: 2x10 each green tb Home Exercise Program: Deferred Assessment Skilled physical therapy interventions utilized to improve patient s impairments and work towards established goals. Patient response to treatment: pt has increased pain on L ankle with most exercises this date. Pt responds well to resistive ankle exercises and states they help reduce pain. Patient will benefit from continued physical therapy to progress towards goals. The rationale for today s treatment was explained to the patient. Verbal cues were provided for correct form with all exercises. Advised patient to continue with Home Exercise Program (HEP). Goals General/Ortho Patient will be independent with HEP. (Progressing) Start: 10/31/23 Expected End: 02/03/24 Patient will report decreased pain at no more than 4/10 in L foot/ankle to be able to improve participation in functional activities. (Progressing) Start: 10/31/23 Expected End: 02/03/24 Balance: Patient will improve SLS to to >20 sec to improve safety with transfers. (Progressing) Start: 10/31/23 Expected End: 02/03/24 Functional Outcome Measure: Patient will improve FAAM to no less than 85% ability (Progressing) Start: 10/31/23 Expected End: 02/03/24 Plan Plan for next session: continue BLE strengthening with emphasis on ankle strengthening. Time Entry Total Treatment Time Start Time: 758 Stop Time: 825 Time Calculation (min): 27 min PT Therapeutic Procedures Time Entry Therapeutic Exercise Time Entry: 25 Kalpesh Dumont PTA Cosigned by Bette Laurent PT at 12/15/2023 9:15 AM EST documented in this [facility]11-07-2024 History of Present illness Narrative* Cherelle Valerio PTA - 12/13/2023 10:30 AM EST Images from the original note were not included. [facility] [address] [address] Dept: [phone] Dept PHYSICAL THERAPY TREATMENT Patient Name: Petar Alcocer : 1975 Date of Service: 12/13/2023 Referring Provider: Sabas Reyes DPM Visit #: [id number] Diagnosis: Plantar fascial fibromatosis Mechanism of injury: 05/18/23 operation: 1. 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 Implantation of nerve of a branch of the common peroneal nerve into the peroneal muscle belly left lower leg 3. Neuroplasty dorsal left foot of the deep peroneal nerve Release of anterior compartment above the fibular head Neuroma removal off of fibular nerve LLE Extensor retinaculum release off of deep peroneal nerve Patient Preferences: Star Precautions/Red Flags: Yes medical precautions: bipolar disorder, Hx of heart attack, PTSD, CVA Adhesive allergy: no taping, wound on plantar surface of L foot, tinea pedis Subjective 4/10. I am in the process of moving, so I have been really busy. I noticed when I do my exercises at night- I have noticed that my heel doesn't hurt as bad. Compliance with HEP: Yes Objective Objective measurements not taken today. Treatment Therapeutic Exercise Therapeutic Exercise Activity 7: retro gait with bar Activity 7 Comment: 2 plates, 5x; 2.5 plates, 5x Therapeutic Exercise Activity 8: calf raises on leg press Activity 8 Comment: 2 plates, 2x10 Therapeutic Exercise Activity 9: leg press Activity 9 Comment: 3 plates, 2x10 Therapeutic Exercise Activity 11: balance- airex Activity 11 Comment: 1) WBOS 1', 2) NBOS-1' 3) mod tandem R/L 1' ea Therapeutic Exercise Activity 12: slant board stretch- gastroc and soleus Activity 12 Comment: 2x30 ea Therapeutic Exercise Activity 14: standing calf raises x3 (toes in, neutral, toes out) Activity 14 Comment: 15x ea Therapeutic Activity Therapeutic Activity 1: farmers carry R/L Activity 1 Comment: 10# KB 100' x1 ea Therapeutic Activity 2: weighted carry at chest Activity 2 Comment: 10# KB 100' x1 Home Exercise Program: Deferred Assessment Skilled physical therapy interventions utilized to improve patient s impairments and work towards established goals. Patient response to treatment: Progressed LE strengthening and functional activities. Patient completed with no increase in pain levels. Patient was fatigued with progressions. Patient required verbal cues for proper form on exercises. Patient will benefit from continued physical therapy to progress core and LE strength The rationale for today s treatment was explained to the patient. Verbal cues were provided for correct form with all exercises. Advised patient to continue with Home Exercise Program (HEP). Goals General/Ortho Patient will be independent with HEP. (Progressing) Start: 10/31/23 Expected End: 02/03/24 Patient will report decreased pain at no more than 4/10 in L foot/ankle to be able to improve participation in functional activities. (Progressing) Start: 10/31/23 Expected End: 02/03/24 Balance: Patient will improve SLS to to >20 sec to improve safety with transfers. (Progressing) Start: 10/31/23 Expected End: 02/03/24 Functional Outcome Measure: Patient will improve FAAM to no less than 85% ability (Not Addressed) Start: 10/31/23 Expected End: 02/03/24 Plan Plan for next session: progress core and LE strengthening exercises. Time Entry Total Treatment Time Start Time: 1035 Stop Time: 1100 Time Calculation (min): 25 min PT Therapeutic Procedures Time Entry Therapeutic Exercise Time Entry: 15 Therapeutic Activity Time Entry: 8 Cherelle aVlerio PTA Cosigned by Linda Randle PT at 12/13/2023 1:01 PM EST documented in this [facility]11-06-2024 NoteHNO ID: [id number] Author: YENNY OSMAN APRN.GASOLINE LOCOMOTIVE CRANE OPERATOR Service: ? Author Type: Nurse Practitioner Type: Progress Notes Filed: 12/12/2023 10:35 Note Text: Headache Center Follow-up Visit Miscellaneous Patient Concerns: She is waiting to start Emgality as adjunct preventive therapy. Will likely help with wearing off effect from Botox. Nurtec as needed is still effective for her. Impression: Chronic migraine without aura, intractable, without status migrainosus (primary encounter diagnosis) Brittney Alcocer has been previously approved for an Oral Calcitonin Gene-Related Peptide Receptor Antagonist (GEPANT) Rimegepant for the treatment of abortive use. The patient has demonstrated the following: Provider attests patient has had a positive clinical response: Yes Patient will not use with another Oral Calcitonin Gene-Related Peptide Receptor Antagonist (GEPANT): Yes Patient's quality of life and ability to perform ADLs has improved: Yes The patient has a contraindication stroke We suggest the patient continue treatment with GEPANT Rimegepant. The following preventative medications have been tried for three or more months without benefit: Anti-Convulsant Divalproex sodium (Depakote) Gabapentin (Neurontin) Anti-Depressant and Antipsychotic Amitriptyline (Elavil) Bupropion (Wellbutrin) Citalopram (Celexa) Fluoxetine (Prozac) Olanzapine (Zyprexa, Zydis) Quetiapine (Seroquel) Sertraline (Zoloft) Venlafaxine (Effexor) Blood Pressure NO beta blockers - asthma MABs Erenumab (Aimovig) lost efficacy Galcanezumab (Emgality) not effective Botulinum Toxin Onabotulinum Toxin A (Botox) Supplements Magnesium Riboflavin The following abortive medications have been tried but require high frequency use which can lead to Medication Overuse Headache: Analgesic Diclofenac (Voltaren, Cataflam, Cambia) Hydrocodone/Acetaminophen (Vicodin, [place]) Indomethacin (Indocin) Ketorolac (Toradol) Tramadol (Ultram) celebrex Anti-Anxiety Alprazolam (Xanax, Niravam) Anti-Migraine Naratriptan (Amerge) Rizatriptan (Maxalt) Sumatriptan (Imitrex, Sumavel) raised blood pressure cannot use triptans - H/O TIA and [place] GEPANTS Rimegepant (Nurtec) Over the Counter Medications Acetaminophen (Tylenol) Ibuprofen (Advil, Motrin) Follow-Up Onabotulinum Toxin A (BotoxTM) for Migraine Indication: Chronic Intractable Migraine Referral Expiration: 12/10/2024 Prior to the initiation of the FIRST treatment with Onabotulinum Toxin A, the patient reported the following average headache frequency over the past 3 MONTHS: Number of moderate-severe migraine days/month: 30 (daily) Number of mild migraine days/month: 0 Number of headache free days/month: 0 (0 headache-free hours) Migraine severity: 10/10 After treatment with Onabotulinum Toxin A: Number of moderate-severe migraine days/month: 15 Number of mild migraine days/month: 0 Number of headache free days/month: 15 (360 headache-free hours) Migraine severity: 7/10 Patient reduction in overall migraine days: Yes Patient reduction in moderate-severe migraine days: Yes Patient reduction of headache hours by 100 hours or more: Yes (reduction of 360 hours) Individual has obtained clinical benefit deemed significant by individual or prescriber (Y/N): Yes Patient's quality of life and ability to perform ADLs has improved (Y/N): Yes Side effects: none Wearing off: Yes - 8 weeks after treatment The patient has been assessed for disorders which could contribute to breathing or swallowing difficulty, and there is no contraindication with PREEMPT Botox. There is no documented allergic reaction/hypersensitivity to any botulinum toxin and there is no active infection at proposed injection site. HEADACHE SCORES: 12/04/2022 02/09/2023 11/14/2023 Headache Questions ER visits since last office visit: 2 0 0 Hospital stays since last office visit 0 0 0 Limited ADLs in the last month: 0 6 20 Days missed from work or school in the last month: 0 2 10 Days headache pain free in the last month: 2 2 15 Days per month with ALL of the following symptoms - decreased productivity, light sensitivity and nausea: 7 5 10 Initial improvement of headache after botox injection at last visit: Very much improved Very much improved Very much improved PRN medication usage in the last month: 4 0 Patient impression of improvement since last visit: Much improved Much improved 02/09/2023 07/12/2023 11/14/2023 HIT-6 HIT-6 66 (Severe impact) 67 (Severe impact) 64 (Severe impact) 02/09/2023 07/12/2023 11/14/2023 DAVID - 2/7 SCORES DAVID-2 Score 0 3 0 DAVID-7 Score 9 02/09/2023 07/12/2023 11/14/2023 Migraine Specific QOL - Higher scores indicate better HRQL Role Function-Restrictive Transformed Score (range: 0-100) 60 0 40 Role Function-Preventive Transformed Score (range: 0-100) 60 0 40 Emotional Function Transformed Score (range: 0-100) 60 13.33 4 (more content not included)...[facility]11-05-2024 NoteHNO ID: [id number] Author: DEBORAH TEIXEIRA PA-C Service: ? Author Type: Physician Container Shop Welder Type: Progress Notes Filed: 12/11/2023 08:54 Note Text: Headache Center Infusion [facility] Note Subjective: Brittney Alcocer is a 48 year old year old female presenting for day 3 of infusions. Response to infusions: Headache improving. and had nausea with magnesium on day two Current Preventative: Botox and Gabapentin 800mg QID Current Abortive: Nurtec, zofran Labs: Latest Ref Rng AND Units 08/17/2023 CBC WBC 3.70 - 11.00 k/uL 7.83 RBC 3.90 - 5.20 m/uL 4.81 Hemoglobin 11.5 - 15.5 g/dL 15.5 Hematocrit 36.0 - 46.0 % 46.0 MCV 80.0 - 100.0 fL 95.6 MCH 26.0 - 34.0 pg 32.2 MCHC 30.5 - 36.0 g/dL 33.7 RDW-CV 11.5 - 15.0 % 13.2 Platelet Count 150 - 400 k/uL 212 MPV 9.0 - 12.7 fL 9.5 Baso% % 0.4 Abs Neut (ANC) 1.45 - 7.50 k/uL 5.97 Abs Lymph 1.00 - 4.00 k/uL 1.17 Abs Simpson <0.87 k/uL 0.54 Abs Eosin <0.46 k/uL 0.11 Abs Baso <0.11 k/uL 0.03 Latest Ref Rng AND Units 08/17/2023 CMP Sodium 136 - 144 mmol/L 138 Potassium 3.7 - 5.1 mmol/L 4.0 Chloride 98 - 107 mmol/L 102 CO2 22 - 30 mmol/L 23 Glucose 74 - 99 mg/dL 111 BUN 7 - 21 mg/dL 12 Creatinine 0.58 - 0.96 mg/dL 0.86 EGFR >=60 mL/min/1.73m? 83 Protein, Total 6.3 - 8.0 g/dL 7.9 Albumin 3.9 - 4.9 g/dL 4.6 Calcium 8.5 - 10.2 mg/dL 9.5 Bilirubin, Total 0.2 - 1.3 mg/dL 0.6 AST 13 - 35 U/L 16 ALT 7 - 38 U/L 14 Alkaline Phosphatase 34 - 123 U/L 125 ALLERGIES Allergen Reactions Citalopram Hydrobro* Anaphylaxis TACHYCARDIA Morphine GI Upset Amoxicillin GI Upset, Other: See Comments Makes me worse Asa [Salicylates] Hives Chocolate Effexor [Venlafaxin* Vomiting Naproxen Intolerance Depression Penicillin G GI Upset Tape [Adhesive Tape* Other: See Comments Rash Tomato Intolerance If cooked cant tolerate them Tramadol GI Upset Trazodone Mental Status Change Causes hallucinations Venlafaxine Unknown Current Medications: lansoprazole (PREVACID) 30 mg capsuleTake 1 capsule by mouth two times a day.Disp: 60 capsuleRfl: 0 simvastatin (ZOCOR) 20 mg tabletTake 2 tablets by mouth daily at bedtime.Disp: 180 tabletRfl: 3 gabapentin (NEURONTIN) 800 mg tabletTake 1 tablet by mouth four times daily for 180 days.Disp: 120 tabletRfl: 5 mirabegron (MYRBETRIQ) 50 mg [id number] 1 tablet by mouth once daily.Disp: 30 tabletRfl: 5 rimegepant (NURTEC ODT) 75 mg disintegrating tabletTake 1 tablet at onset of headache/migraine. Only take 1 tablet as single dose in 24 hour period.Disp: 8 tabletRfl: 11 ondansetron orally disintegrating (ZOFRAN ODT) 4 mg disintegrating tabletdissolve 1 tablet ON TONGUE every 8 hours if needed for nausea OR vomitingDisp: 20 tabletRfl: 11 loratadine (CLARITIN) 10 mg tablettake 1 tablet by mouth once dailyDisp: 28 tabletRfl: 11 MEDICATION, NON-DATABASEMarijuana for migrainesDisp: Rfl: Review of Systems: Review of system: Patient reports no change from the prior visit. Objective: VS: see infusion note for vital signs General: well appearing, in no acute distress, alert Neurological: Pain Behaviors: no pain behaviors observed Mental Status: Alert and oriented to person, place and time. Affect is normal. Speech is spontaneous and fluent without dysarthria. Short and snf memory, cognition and general fund of knowledge are good. Attention span and concentration are excellent. Cranial Nerves: VII-face is symmetric without evidence of weakness. VIII-hearing intact. Assessment: (G43.719) Chronic migraine without aura, intractable, without status migrainosus (primary encounter diagnosis) Plan: Brittney Alcocer is a 48 year old year old female, with a history of chronic migraine, stroke, [place],chronic pain syndrome, TMJD, concussion, peptic ulcer, hypothyroid, asthma, pelvic pain, renal stones and insomnia following up today for day 3 of infusions. She reports she does well with infusions prior to botox - will have less migraines and clearer head. She was previously unable to try emgality due to insurance issues - she wishes to try emgality at this time - reviewed dosing and potential side effects and will send to [facility]. Patient verbalized understanding and agreed to treatment plan. We will request precertification for Calcitonin Gene Related Peptide Monoclonal Antibody, Galcanezumab. 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 The FDA has approved CGRP MAB for prevention of migraine. Specifically, the patient has 15 migraines per month, lasting 4 or more hours/d associated with photophobia, phonophobia, nausea for three or more months. Medication overuse headache has been ruled out. Patient is currently taking (more content not included)... [facility]11-05-2024 NoteHNO ID: [id number] Author: QUEENIE RENAE RN Service: ? Author Type: Registered Nurse Type: Progress Notes Filed: 12/11/2023 10:54 Note Text: 0810 Patient in for 3rd day of IV infusions. Patient rated headache 2/10. Patient stated mild nausea and no dizziness. Patient educated on medications to be administered. Patient verbalized understanding and agreed to proceed with infusions. 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 Pt tolerated infusion well. Pt rated headache 0/10. Pt stated mild nausea and no dizziness. Pt discharged from treatment room. [facility]11-04-2024 NoteHNO ID: [id number] Author: CARINA WU RN Service: ? Author Type: Registered Nurse Type: Progress Notes Filed: 12/10/2023 09:57 Note Text: Patient in for day 2 of IV infusions. Patient rated headache 8/10. Patient stated mild nausea and no dizziness. Patient educated on medications to be administered and a commercial front load driver to transport home was confirmed. Patient verbalized understanding and agreed to proceed with infusions. PRN zofran and benadryl given per order Pts infusions complete. Pt tolerated infusion well. Pt rated headache 5/10. Pt stated no nausea and moderate dizziness. Pt discharged from treatment room in a wheelchair.[facility]11-01-2024 NoteHNO ID: [id number] Author: PAULINO RAE PA-C Service: ? Author Type: Physician Container Shop Welder Type: Progress Notes Filed: 12/07/2023 08:38 Note Text: Headache Center Infusion [facility] Note Subjective: Brittney Alcocer is a 48 year old year old female presenting for day 1 of infusions. Previous infusion 07/2023-worked well in combination with botox. No concerns today. Therapy Plan: zofran magnesium robaxin valproate benadryl New health conditions since orders were placed: No Cardiovascular risk factors: History of a stroke 1998 and [place] 1998 with cocaine overdose, hyperlipidemia Triptan dose in the last 24 hours: No, CI Last muscle relaxer dose: No Last NSAID dose: No Response to infusions: Patient tolerating infusion without side effects. Current Preventative: Botox and Gabapentin Current Abortive: Nurtec Labs: Latest Ref Rng AND Units 08/17/2023 CBC WBC 3.70 - 11.00 k/uL 7.83 RBC 3.90 - 5.20 m/uL 4.81 Hemoglobin 11.5 - 15.5 g/dL 15.5 Hematocrit 36.0 - 46.0 % 46.0 MCV 80.0 - 100.0 fL 95.6 MCH 26.0 - 34.0 pg 32.2 MCHC 30.5 - 36.0 g/dL 33.7 RDW-CV 11.5 - 15.0 % 13.2 Platelet Count 150 - 400 k/uL 212 MPV 9.0 - 12.7 fL 9.5 Baso% % 0.4 Abs Neut (ANC) 1.45 - 7.50 k/uL 5.97 Abs Lymph 1.00 - 4.00 k/uL 1.17 Abs Simpson <0.87 k/uL 0.54 Abs Eosin <0.46 k/uL 0.11 Abs Baso <0.11 k/uL 0.03 Latest Ref Rng AND Units 08/17/2023 CMP Sodium 136 - 144 mmol/L 138 Potassium 3.7 - 5.1 mmol/L 4.0 Chloride 98 - 107 mmol/L 102 CO2 22 - 30 mmol/L 23 Glucose 74 - 99 mg/dL 111 BUN 7 - 21 mg/dL 12 Creatinine 0.58 - 0.96 mg/dL 0.86 EGFR >=60 mL/min/1.73m? 83 Protein, Total 6.3 - 8.0 g/dL 7.9 Albumin 3.9 - 4.9 g/dL 4.6 Calcium 8.5 - 10.2 mg/dL 9.5 Bilirubin, Total 0.2 - 1.3 mg/dL 0.6 AST 13 - 35 U/L 16 ALT 7 - 38 U/L 14 Alkaline Phosphatase 34 - 123 U/L 125 ALLERGIES Allergen Reactions Citalopram Hydrobro* Anaphylaxis TACHYCARDIA Morphine GI Upset Amoxicillin GI Upset, Other: See Comments Makes me worse Asa [Salicylates] Hives Chocolate Effexor [Venlafaxin* Vomiting Naproxen Intolerance Depression Penicillin G GI Upset Tape [Adhesive Tape* Other: See Comments Rash Tomato Intolerance If cooked cant tolerate them Tramadol GI Upset Trazodone Mental Status Change Causes hallucinations Venlafaxine Unknown Current Medications: lansoprazole (PREVACID) 30 mg capsuleTake 1 capsule by mouth two times a day.Disp: 60 capsuleRfl: 0 simvastatin (ZOCOR) 20 mg tabletTake 2 tablets by mouth daily at bedtime.Disp: 180 tabletRfl: 3 gabapentin (NEURONTIN) 800 mg tabletTake 1 tablet by mouth four times daily for 180 days.Disp: 120 tabletRfl: 5 mirabegron (MYRBETRIQ) [id number] 1 tablet by mouth once daily.Disp: 30 tabletRfl: 5 rimegepant (NURTEC ODT) 75 mg disintegrating tabletTake 1 tablet at onset of headache/migraine. Only take 1 tablet as single dose in 24 hour period.Disp: 8 tabletRfl: 11 ondansetron orally disintegrating (ZOFRAN ODT) 4 mg disintegrating tabletdissolve 1 tablet ON TONGUE every 8 hours if needed for nausea OR vomitingDisp: 20 tabletRfl: 11 loratadine (CLARITIN) 10 mg tablettake 1 tablet by mouth once dailyDisp: 28 tabletRfl: 11 MEDICATION, NON-DATABASEMarijuana for migrainesDisp: Rfl: Review of Systems: Review of system: Patient reports no change from the prior visit. Objective: VS: see infusion note for vital signs General: well appearing, in no acute distress, alert Neurological: Pain Behaviors: grimacing Mental Status: Alert and oriented to person, place and time. Affect is normal and appropriate. Speech is spontaneous and fluent without dysarthria, normal in rate, volume and articulation, and clear, coherent, and relevant. 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 Attention span and concentration are excellent. Cranial Nerves: VII-face is symmetric without evidence of weakness. VIII-hearing intact. Assessment: (G43.719) Chronic migraine without aura, intractable, without status migrainosus (primary encounter diagnosis) Plan: Brittney Alcocer is a 48 year old year old female, with a history of History of a stroke 1998 and [place] 1998 with cocaine overdose following up today for day 1 of infusions. Has tolerated infusions well thus far and found them in combination with Botox to work well for her. Follow up plan: Resume previous at home medications. -Hold Nurtec on days of infusion. -Follow-up with the 2-3 of infusions next week Level of service: Est level 1 (0-9 min): Time spent 5 min on the day of service, which included preparing to see the patient, [id number] patient care, completing clinical documentation, obtaining and/or reviewing separately obtained history, performing a medically appropriate examination, and counseling and educating the patient/family/caregiver. Paulino Rae PA-C Headache Section [facility] December 05, (more content not included)...[facility]11-01-2024 NoteHNO ID: [id number] Author: QUEENIE RENAE RN Service: ? Author Type: Registered Nurse Type: Progress Notes Filed: 12/07/2023 10:09 Note Text: 0728 Patient in for 1st day of IV infusions. Patient rated headache 8/10. Patient stated mild nausea and mild dizziness. Patient educated on medications to be administered. Patient verbalized understanding and agreed to proceed with infusions. 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 Pt tolerated infusion well. Pt rated headache 5/10. Pt stated mild nausea and mild dizziness. Pt discharged from treatment room in w/c to commercial front load driver in [facility]10-30-2024 History of Present illness Narrative* Linda Randle, PT - 12/05/2023 9:00 AM EDT Images from the original note were not included. [facility] [address] [place] [address] [place] [address] Dept: [phone] Dept PHYSICAL THERAPY RE-EVALUATION Patient Name: Petar Alcocer : 1975 Date of Service: 12/05/2023 Referring Provider: Sabas Reyes DPM Visit #: 7 Diagnosis: Plantar fascial fibromatosis Mechanism of injury: 05/18/23 operation: 1. 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 Implantation of nerve of a branch of the common peroneal nerve into the peroneal muscle belly left lower leg 3. Neuroplasty dorsal left foot of the deep peroneal nerve Release of anterior compartment above the fibular head Neuroma removal off of fibular nerve LLE Extensor retinaculum release off of deep peroneal nerve Patient Preferences: Star Precautions/Red Flags: Yes medical precautions: bipolar disorder, Hx of heart attack, PTSD, CVA Adhesive allergy: no taping, wound on plantar surface of L foot, tinea pedis Subjective Chief Complaint: Reports that she has been doing the exercises consistently and feels things are starting to ease. Has not gotten the brace/splint. Still has pain in the AM and after prolonged standing. Pain: Current: 4/10 Best: 4/10 Worst: /10 Symptoms Aggravated by: extended standing, donning shoes/socks, steps Current Level of Function: ankles sitting still for long periods of time, must move ankles constantly. Able to stand a little longer than an hour without pain. Reports that she must lean on L side when standing for extended periods. Steps have improved going up but continues with going down the stairs. Sleeping still limited at night due to pain. Outcome Measures Foot and Ankle Ability Measure (FAAM): 62/84 =73.8% ability ; 12/05/23: 47/84 = 56% ability Objective ANKLE Leg length: L longer than R Observation: wound on plantar surface of foot, leans to LLE in stance Gait: Antalgic L Lower Extremity Strength Right Left Hip Flexion 5 5 Hip Abduction 5 4+ Hip Extension 4 p! 4 p! Hip External Rotation (ER) 5 5 Hip Internal Rotation (IR) 5 5 Knee Extension 5 5 Knee Flexion 5 5 Ankle Dorsiflexion (DF) 5 5 Ankle Plantarflexion (PF) 5 5 Inversion 5 5 Eversion 5 5 Single Leg Stance (SLS) Balance L SLS= 24 seconds R SLS= 7 seconds Palpation: TTP L calcaneus, L medial and lateral malleolus, evertors, invertors, gastroc; moderate turgor L gastroc Flexibility: Gastroc limited mild Assessment Petar is a 48 y.o. patient with chief complaint of heel pain and lower leg pain, who presents with signs and symptoms consistent with plantar fasciitis. The patient had a surgery done on the L foot that seems to exacerbate and/or contribute to her plantar fasciitis. The patient would benefit from skilled physical therapy to address decreased strength, decreased range of motion, pain, soft tissue impairment, impaired gait, and impaired functional activities. Since SOC, patient demonstrates substantially less pain although pain does peak still at a 10/10 and demonstrates improved strength and functional capacity (though FAAM is worse and not correlated tosubjective and objective report). Patient continues to struggle with standing/walking activities and would benefit from continued PT to address. Core/hip weakness still present and contributes to stability lower and would benefit from addressing this as well in functional positions/strengthening routines. Goals Active General/Ortho Patient will be independent with HEP. (Progressing) Start: 10/31/23 Expected End: 02/03/24 Patient will report decreased pain at no more than 4/10 in L foot/ankle to be able to improve participation in functional activities. (Progressing) Start: 10/31/23 Expected End: 02/03/24 Patient will increase strength in gross hip to at least 4+/5 and specifically L hip flexion to 4/5 to be able to improve distal stability and improve safety in functional activities. (Completed) Start: 10/31/23 Expected End: 02/03/24 Resolved: 12/05/23 Gait: Patient will demonstrate ability to appropriately bear weight on both lower extremities in stance. (Completed) Start: 10/31/23 Expected End: 02/03/24 Resolved: 12/05/23 Balance: Patient will improve SLS to to >20 sec to improve safety with transfers. (Progressing) Start: 10/31/23 Expected End: 02/03/24 Functional Outcome Measure: Patient will improve FAAM to no less than 85% ability (Progressing) Start: 10/31/23 Expected End: 02/03/24 Plan Frequency and Duration: 1-2/wk for 5 weeks Therapeutic Contents: client education, gait training, group therapy, home exercise program, manualtherapy techniques, neuromuscular re-education, therapeutic activities, therapeutic exercise, and modalities as needed Plan for next session: progress hip strength/core strength, balance, LE strength and CKC activity. Risks and benefits were discussed with the patient and/or family, and the patient and/or family participated with the plan of care and agrees. Treatment Education on clinical exam findings POC/goals and HEP. Discussed need to get shoe modification through podiatry to equal out leg length issues which should help her back. Re-assessment completed Home Exercise Program: Deferred Time Entry Total Treatment Time Start Time: 899 Stop Time: 929 Time Calculation (min): 30 min PT Therapeutic Procedures Time Entry Therapeutic Activity Time Entry: 28 Linda Randle PT, DPT, NCS documented in this [facility]10-23-2024 History of Present illness Narrative* Cherelle Valerio PTA - 11/28/2023 8:30 AM EDT Images from the original note were not included. [facility] [address] [address] Dept: [phone] Dept PHYSICAL THERAPY TREATMENT Patient Name: Petar Alcocer : 1975 Date of Service: 11/28/2023 Referring Provider: Sabas Reyes DPM Visit #: 6 Diagnosis: Plantar fascial fibromatosis Mechanism of injury: 05/18/23 operation: 1. 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 Implantation of nerve of a branch of the common peroneal nerve into the peroneal muscle belly left lower leg 3. Neuroplasty dorsal left foot of the deep peroneal nerve Release of anterior compartment above the fibular head Neuroma removal off of fibular nerve LLE Extensor retinaculum release off of deep peroneal nerve Patient Preferences: Star Precautions/Red Flags: Yes medical precautions: bipolar disorder, Hx of heart attack, PTSD, CVA Adhesive allergy: no taping, wound on plantar surface of L foot, tinea pedis Subjective 5/10. I am sore today, it was sore after last time, but I managed. I noticed that when I walk- I feel like I have a cast on my left foot. Compliance with HEP: Yes Objective L SLS= 24 seconds R SLS= 7 seconds Treatment Therapeutic Exercise Therapeutic Exercise Activity 12: slant board stretch- gastroc and soleus Activity 12 Comment: 2x30 ea Therapeutic Exercise Activity 14: standing calf raises x3 (toes in, neutral, toes out) Activity 14 Comment: 15x ea Therapeutic Exercise Activity 15: standing hip abd Activity 15 Comment: 10x ea Soft Tissue Mobilization Location: L gastroc Body Position: Prone Comments: STM Home Exercise Program: Progressed home exercise program Assessment Skilled physical therapy interventions utilized to improve patient s impairments and work towards established goals. Patient response to treatment: Patient completed session with no change in pain level. Progressed hip strengthening this date, patient was challenged with glut med exercises. Patient presents with balance deficits and can benefit from PT to address deficits. Patient will benefit from continued physical therapy to progress LE strength The rationale for today s treatment was explained to the patient. Verbal cues were provided for correct form with all exercises. Advised patient to continue with Home Exercise Program (HEP). Goals General/Ortho Patient will be independent with HEP. (Progressing) Start: 10/31/23 Expected End: 11/29/23 Patient will report decreased pain at no more than 4/10 in L foot/ankle to be able to improve participation in functional activities. (Progressing) Start: 10/31/23 Expected End: 11/29/23 Patient will increase strength in gross hip to at least 4+/5 and specifically L hip flexion to 4/5 to be able to improve distal stability and improve safety in functional activities. (Progressing) Start: 10/31/23 Expected End: 11/29/23 Gait: Patient will demonstrate ability to appropriately bear weight on both lower extremities in stance. (Progressing) Start: 10/31/23 Expected End: 11/29/23 Balance: Patient will improve SLS to to >20 sec to improve safety with transfers. (Progressing) Start: 10/31/23 Expected End: 11/29/23 Functional Outcome Measure: Patient will improve FAAM to no less than 85% ability (Not Addressed) Start: 10/31/23 Expected End: 11/29/23 Plan Plan for next session: progress LE strengthening Time Entry Total Treatment Time Start Time: 832 Stop Time: 902 Time Calculation (min): 30 min PT Therapeutic Procedures Time Entry Therapeutic Exercise Time Entry: 15 Manual Therapy Time Entry: 15 Cherelle Valerio PTA Cosigned by Linda Randle PT at 11/28/2023 10:59 AM EDT documented in this [facility]10-21-2024 History of Present illness Narrative* Cherelle Valerio PTA - 11/26/2023 9:00 AM EDT Images from the original note were not included. [facility] [employer] [address] [address] Dept: [phone] Dept PHYSICAL THERAPY TREATMENT Patient Name: Petar Alcocer : 1975 Date of Service: 11/26/2023 Referring Provider: Sabas Reyes DPM Visit #: 5 Diagnosis: Plantar fascial fibromatosis Mechanism of injury: 05/18/23 operation: 1. 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 Implantation of nerve of a branch of the common peroneal nerve into the peroneal muscle belly left lower leg 3. Neuroplasty dorsal left foot of the deep peroneal nerve Release of anterior compartment above the fibular head Neuroma removal off of fibular nerve LLE Extensor retinaculum release off of deep peroneal nerve Patient Preferences: Star Precautions/Red Flags: Yes medical precautions: bipolar disorder, Hx of heart attack, PTSD, CVA Adhesive allergy: no taping, wound on plantar surface of L foot, tinea pedis Subjective 07/15. I sent my splint to the wrong place, so I just ordered it again. Compliance with HEP: Yes Objective Objective measurements not taken today. Treatment Therapeutic Exercise Therapeutic Exercise Activity 11: balance- airex Activity 11 Comment: 1) WBOS 1', 2) NBOS-1' 3) mod tandem R/L 1' ea Therapeutic Exercise Activity 12: slant board stretch- gastroc and soleus Activity 12 Comment: 2x30 ea Therapeutic Exercise Activity 14: standing calf raises x3 (toes in, neutral, toes out) Activity 14 Comment: 10x ea Therapeutic Exercise Activity 15: sidesteps Activity 15 Comment: 25'x1 Soft Tissue Mobilization Location: L gastroc Body Position: Prone Location 2: B invertors/evertors Body Position 2: Supine Comments 2: STM Home Exercise Program: Progressed home exercise program Assessment Skilled physical therapy interventions utilized to improve patient s impairments and work towards established goals. Patient response to treatment: progressed standing exercises this date, patient had minimal increase in low back during side steps, but it ceased when exercise stop. Progressed calf raises and issuedfor home exercises. Patient was challenged with balance activities on the foam this date. Patient will benefit from continued physical therapy to progress foot ankle strength The rationale for today s treatment was explained to the patient. Verbal cues were provided for correct form with all exercises. Advised patient to continue with Home Exercise Program (HEP). Goals General/Ortho Patient will be independent with HEP. (Progressing) Start: 10/31/23 Expected End: 11/29/23 Patient will report decreased pain at no more than 4/10 in L foot/ankle to be able to improve participation in functional activities. (Progressing) Start: 10/31/23 Expected End: 11/29/23 Patient will increase strength in gross hip to at least 4+/5 and specifically L hip flexion to 4/5 to be able to improve distal stability and improve safety in functional activities. (Progressing) Start: 10/31/23 Expected End: 11/29/23 Gait: Patient will demonstrate ability to appropriately bear weight on both lower extremities in stance. (Progressing) Start: 10/31/23 Expected End: 11/29/23 Balance: Patient will improve SLS to to >20 sec to improve safety with transfers. (Not Addressed) Start: 10/31/23 Expected End: 11/29/23 Functional Outcome Measure: Patient will improve FAAM to no less than 85% ability (Not Addressed) Start: 10/31/23 Expected End: 11/29/23 Plan Plan for next session: progress foot ankle strength as patient can tolerate. Consider step taps andlateral step downs. Time Entry Total Treatment Time Start Time: 904 Stop Time: 931 Time Calculation (min): 27 min PT Therapeutic Procedures Time Entry Therapeutic Exercise Time Entry: 10 Manual Therapy Time Entry: 15 Cherelle Valerio PTA documented in this [facility]10-16-2024 History of Present illness Narrative* Linda Randle, PT - 11/21/2023 9:00 AM EDT Images from the original note were not included. [facility] [place] [address] [place] [address] [place] [address] Dept: [phone] Dept PHYSICAL THERAPY TREATMENT Patient Name: Petar Alcocer : 1975 Date of Service: 11/21/2023 Referring Provider: Sabas eRyes DPM Visit #: 4 Diagnosis: Plantar fascial fibromatosis Mechanism of injury: 05/18/23 operation: 1. 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 Implantation of nerve of a branch of the common peroneal nerve into the peroneal muscle belly left lower leg 3. Neuroplasty dorsal left foot of the deep peroneal nerve Release of anterior compartment above the fibular head Neuroma removal off of fibular nerve LLE Extensor retinaculum release off of deep peroneal nerve Patient Preferences: Star Precautions/Red Flags: Yes medical precautions: bipolar disorder, Hx of heart attack, PTSD, CVA Adhesive allergy: no taping, wound on plantar surface of L foot, tinea pedis Subjective 7.5 pain level today. Reports still worse in the AM. Reports that she Compliance with HEP: Yes Objective Objective measurements not taken today. Treatment Therapeutic Exercise Therapeutic Exercise Activity 4: inversion/ eversion Activity 4 Comment: red x 10 reps Therapeutic Exercise Activity 10: BAPS A/P, S/S, CW, CCW- bilateral Activity 10 Comment: L3- 15x ea Therapeutic Exercise Activity 13: planterflexion Activity 13 Comment: red x 10 reps Soft Tissue Mobilization Location: L gastroc Body Position: Supine IASTM Location: B evertors/invertors Body Position: Other Comments: reclined sitting Home Exercise Program: Progressed home exercise program and added band PF, Inv, Ever Assessment Skilled physical therapy interventions utilized to improve patient s impairments and work towards established goals. Patient response to treatment: :Progressed BAPS to level 3 with fair tolerance. Continued manual intervention to B feet (L>R) with improved turgor noted post. Pain at end of session / 10. Patient would benefit from progression of HEP NV and progression into WB. Patient will benefit from continued physical therapy to Patient would benefit from progression of HEP NV and progression into WB. The rationale for today s treatment was explained to the patient. Verbal cues were provided for correct form with all exercises. Advised patient to continue with Home Exercise Program (HEP). Goals General/Ortho Patient will be independent with HEP. (Progressing) Start: 10/31/23 Expected End: 11/29/23 Patient will report decreased pain at no more than 4/10 in L foot/ankle to be able to improve participation in functional activities. (Progressing) Start: 10/31/23 Expected End: 11/29/23 Patient will increase strength in gross hip to at least 4+/5 and specifically L hip flexion to 4/5 to be able to improve distal stability and improve safety in functional activities. (Progressing) Start: 10/31/23 Expected End: 11/29/23 Gait: Patient will demonstrate ability to appropriately bear weight on both lower extremities in stance. (Progressing) Start: 10/31/23 Expected End: 11/29/23 Balance: Patient will improve SLS to to >20 sec to improve safety with transfers. (Progressing) Start: 10/31/23 Expected End: 11/29/23 Functional Outcome Measure: Patient will improve FAAM to no less than 85% ability (Progressing) Start: 10/31/23 Expected End: 11/29/23 Plan Plan for next session: Patient would benefit from progression of HEP NV and progression into WB. Time Entry Total Treatment Time Start Time: 0900 Stop Time: 929 Time Calculation (min): 30 min PT Therapeutic Procedures Time Entry Therapeutic Exercise Time Entry: 10 Manual Therapy Time Entry: 20 Linda Randle PT, DPT, NCS documented in this [facility]10-14-2024 History of Present illness Narrative* Cherelle Valerio PTA - 11/19/2023 9:00 AM EDT Images from the original note were not included. [facility] [address] [place] [address] [place] [address] Dept: [phone] Dept PHYSICAL THERAPY TREATMENT Patient Name: Petar Aclocer : 1975 Date of Service: 11/19/2023 Referring Provider: Sabas Reyes DPM Visit #: 3 Diagnosis: Plantar fascial fibromatosis Mechanism of injury: 05/18/23 operation: 1. 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 Implantation of nerve of a branch of the common peroneal nerve into the peroneal muscle belly left lower leg 3. Neuroplasty dorsal left foot of the deep peroneal nerve Release of anterior compartment above the fibular head Neuroma removal off of fibular nerve LLE Extensor retinaculum release off of deep peroneal nerve Patient Preferences: Star Precautions/Red Flags: Yes medical precautions: bipolar disorder, Hx of heart attack, PTSD, CVA Adhesive allergy: no taping, wound on plantar surface of L foot, tinea pedis Subjective 7.5/10. I order the splint, and I am waiting on that to come. Compliance with HEP: Yes Objective Objective measurements not taken today. Treatment Therapeutic Exercise Therapeutic Exercise Activity 10: BAPS A/P, S/S, CW, CCW- bilateral Activity 10 Comment: L2- 10x ea Therapeutic Exercise Activity 11: balance- firm surface Activity 11 Comment: 1) WBOS 1', 2) NBOS-1' 3) mod tandem R/L 1' ea Therapeutic Exercise Activity 12: slant board stretch- gastroc and soleus Activity 12 Comment: 2x30 ea Soft Tissue Mobilization Location: L gastroc Body Position: Prone Home Exercise Program: Deferred Assessment Skilled physical therapy interventions utilized to improve patient s impairments and work towards established goals. Patient response to treatment: Progressed foot ankle strengthening exercises this date. Patient waschallenged with [facility] board. Patient completed balance activities with no change in pain level. Patient will benefit from continued physical therapy to progress foot/ankle strength The rationale for today s treatment was explained to the patient. Verbal cues were provided for correct form with all exercises. Advised patient to continue with Home Exercise Program (HEP). Goals General/Ortho Patient will be independent with HEP. (Progressing) Start: 10/31/23 Expected End: 11/29/23 Patient will report decreased pain at no more than 4/10 in L foot/ankle to be able to improve participation in functional activities. (Progressing) Start: 10/31/23 Expected End: 11/29/23 Patient will increase strength in gross hip to at least 4+/5 and specifically L hip flexion to 4/5 to be able to improve distal stability and improve safety in functional activities. (Progressing) Start: 10/31/23 Expected End: 11/29/23 Gait: Patient will demonstrate ability to appropriately bear weight on both lower extremities in stance. (Progressing) Start: 10/31/23 Expected End: 11/29/23 Balance: Patient will improve SLS to to >20 sec to improve safety with transfers. (Progressing) Start: 10/31/23 Expected End: 11/29/23 Functional Outcome Measure: Patient will improve FAAM to no less than 85% ability (Not Addressed) Start: 10/31/23 Expected End: 11/29/23 Plan Plan for next session: progress foot/ankle strength as patient can tolerate. Progress balance activities as patient can tolerate. 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 Author Type: Nurse Practitioner Type: Progress Notes Filed: 11/14/2023 14:27 Note Text: [facility] - [facility] Visit Infusion Triage This visit was conducted as a virtual visit, with patient's permission, via Zoom. It required patient-provider interaction for the medical decision making as documented below. Patient stated name and Patient location [place] I have communicated my name and active licensure. The patient's identity and physical location were verified at the time of this visit. Either the patient or their legal corporate representative has been informed of the risks and benefits of -- and alternatives to -- treatment through a remote evaluation and consents to proceed with the evaluation remotely. HPI: Brittney Alcocer is a 48 year old year old female, with a history of chronic migraine, stroke, KS,chronic pain syndrome, TMJD, concussion, peptic ulcer, hypothyroid, asthma, pelvic pain, renal stones and insomnia following up today virtually to discuss infusion therapy. 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 83 Protein, Total 6.3 - 8.0 g/dL 7.9 Albumin 3.9 - 4.9 g/dL 4.6 Calcium 8.5 - 10.2 mg/dL 9.5 Bilirubin, Total 0.2 - 1.3 mg/dL 0.6 AST 13 - 35 U/L 16 ALT 7 - 38 U/L 14 Alkaline Phosphatase 34 - 123 U/L 125 Latest Ref Rng AND Units 08/17/2023 CBC WBC 3.70 - 11.00 k/uL 7.83 RBC 3.90 - 5.20 m/uL 4.81 Hemoglobin 11.5 - 15.5 g/dL 15.5 Hematocrit 36.0 - 46.0 % 46.0 MCV 80.0 - 100.0 fL 95.6 MCH 26.0 - 34.0 pg 32.2 MCHC 30.5 - 36.0 g/dL 33.7 RDW-CV 11.5 - 15.0 % 13.2 Platelet Count 150 - 400 k/uL 212 MPV 9.0 - 12.7 fL 9.5 Baso% % 0.4 Abs Neut (ANC) 1.45 - 7.50 k/uL 5.97 Abs Lymph 1.00 - 4.00 k/uL 1.17 Abs Simpson <0.87 k/uL 0.54 Abs Eosin <0.46 k/uL 0.11 Abs Baso <0.11 k/uL 0.03 Other Therapies Nerve blocks Analgesic Diclofenac (Voltaren, Cataflam, Cambia) Hydrocodone/Acetaminophen (Vicodin, [place]) Indomethacin (Indocin) Ketorolac (Toradol) Tramadol (Ultram) celebrex Anti-Anxiety Alprazolam (Xanax, Niravam) Anti-Convulsant Divalproex sodium (Depakote) Gabapentin (Neurontin) Anti-Depressant and Antipsychotic Amitriptyline (Elavil) Bupropion (Wellbutrin) Citalopram (Celexa) Fluoxetine (Prozac) Olanzapine (Zyprexa, Zydis) Quetiapine (Seroquel) Sertraline (Zoloft) Venlafaxine (Effexor) Antiemetics Ondansetron Prochlorperazine Promethazine Reglan (Metoclopramide) Anti-Migraine Naratriptan (Amerge) Rizatriptan (Maxalt) Sumatriptan (Imitrex, Sumavel) raised blood pressure cannot use triptans - H/O TIA and KS Blood Pressure NO beta blockers - asthma MABs Erenumab (Aimovig) lost efficacy Galcanezumab (Emgality) not effective GEPANTS Rimegepant (Nurtec) Botulinum Toxin Onabotulinum Toxin A (Botox) Muscle Relaxer Chlorzoxazone (Parafon Forte) Cyclobenzaprine (Flexeril) Methocarbamol (Robaxin) Sleep Aids Melatonin Supplements Magnesium Riboflavin Other Medications Dexamethasone (Decadron) Diphenhydramine (Benadryl) Methylprednisolone (Medrol) Prednisone Over the Counter Medications Acetaminophen (Tylenol) Ibuprofen (Advil, Motrin) PAST MEDICAL HISTORY Diagnosis Date Adjustment disorder with depressed mood Allergic rhinitis Arthritis of right knee Asthma Bilateral ovarian cysts Cholecystitis, unspecified 1994 Gallbladder removed Chronic pain syndrome Fibroids Gastric ulcer, unspecified as acute or chronic, without mention of hemorrhage or perforation, with obstruction occasional bleeding GERD (gastroesophageal reflux disease) 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 Hypertriglyceridemia Hypoactive thyroid Insomnia Marijuana smoker helps with migraines Migraine with aura, without mention of intractable migraine without mention of status migrainosus daily Pelvic pain in female Short-term memory loss 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 [facility] [address] [facility] [address] Dept: [phone] Dept PHYSICAL THERAPY TREATMENT Patient Name: Petar Alcocer : 1975 Date of Service: 11/14/2023 Referring Provider: Sabas Reyes DPM Visit #: 2 Diagnosis: Plantar fascial fibromatosis Mechanism of injury: 05/18/23 operation: 1. 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 Implantation of nerve of a branch of the common peroneal nerve into the peroneal muscle belly left lower leg 3. Neuroplasty dorsal left foot of the deep peroneal nerve Release of anterior compartment above the fibular head Neuroma removal off of fibular nerve LLE Extensor retinaculum release off of deep peroneal nerve Patient Preferences: Star Precautions/Red Flags: Yes medical precautions: bipolar disorder, Hx of heart attack, PTSD, CVA Adhesive allergy: no taping, wound on plantar surface of L foot, tinea pedis Subjective 8/10. My heel hurts and its constant. The pain is more of stabbing- pins. Compliance with HEP: Yes Objective Objective measurements not taken today. Treatment Therapeutic Exercise Therapeutic Exercise Activity 6: hello goodbyes Activity 6 Comment: 5x Therapeutic Exercise Activity 7: SLR Activity 7 Comment: 10x Therapeutic Exercise Activity 8: side lying hip abd Activity 8 Comment: 10x Therapeutic Exercise Activity 9: prone hip ext Activity 9 Comment: 10x Soft Tissue Mobilization Location: L gastroc Body Position: Prone Home Exercise Program: Progressed home exercise program Assessment Skilled physical therapy interventions utilized to improve patient s impairments and work towards established goals. Patient response to treatment: Patient completed session with no increase in pain level. Patient was challenged with hip strengthening exercises, issued for home program. Patient had reduced tugor following STM. Patient will benefit from continued physical therapy to progress foot ankle strength The rationale for today s treatment was explained to the patient. Verbal cues were provided for correct form with all exercises. Advised patient to continue with Home Exercise Program (HEP). Goals General/Ortho Patient will be independent with HEP. (Progressing) Start: 10/31/23 Expected End: 11/29/23 Patient will report decreased pain at no more than 4/10 in L foot/ankle to be able to improve participation in functional activities. (Progressing) Start: 10/31/23 Expected End: 11/29/23 Patient will increase strength in gross hip to at least 4+/5 and specifically L hip flexion to 4/5 to be able to improve distal stability and improve safety in functional activities. (Progressing) Start: 10/31/23 Expected End: 11/29/23 Gait: Patient will demonstrate ability to appropriately bear weight on both lower extremities in stance. (Progressing) Start: 10/31/23 Expected End: 11/29/23 Balance: Patient will improve SLS to to >20 sec to improve safety with transfers. (Progressing) Start: 10/31/23 Expected End: 11/29/23 Functional Outcome Measure: Patient will improve FAAM to no less than 85% ability (Not Addressed) Start: 10/31/23 Expected End: 11/29/23 Plan Plan for next session: progress LE strengthening as patient can tolerate. Add BAPS. Time Entry Total Treatment Time Start Time: 931 Stop Time: 1000 Time Calculation (min): 28 min PT Therapeutic Procedures Time Entry Therapeutic Exercise Time Entry: 18 Manual Therapy Time Entry: 10 Cherelle Valerio PTA documented in [facility]10-04-2024 NoteHNO ID: [id number] Author: CAREY MORRISON LPN Service: ? Author Type: LICENSED NURSE Type: Progress Notes Filed: 11/09/2023 12:02 Note Text: ED Follow Up: Patient discharged from [facility] ED on 11/09/2023. 1. How are you feeling since your ED visit? Better Have your symptoms improved or resolved? Yes 2. Were you prescribed any medications while in the ED or advised to stop any medication? No - If yes, were you able to fill your prescriptions? Not applicable -if stopped medication, what was the medication? na 3. Were you advised to schedule a follow up appointment with your provider? yes - If no, Do you feel like you need an appointment scheduled? Not applicable - If yes, Do you need this scheduled now or has this already been scheduled? No 4. Were you able to contact the office or christian education director provider prior to your ED visit? No 5. Is there anything else I can do for you today? [facility] 11-09-2023 NotePatient Outreach (AGINTMLW) BRITTNEY ALCOCER ([id number]) 1975 F NFR Date Time Provider Department 11/09/23 CAREY MORRISON During your visit today, we recorded the following information about you: Carey Morrison LPN 11/09/2023 12:02 PM Signed ED Follow Up: Patient discharged from [facility] ED on 11/09/2023. 1. How are you feeling since your ED visit? Better Have your symptoms improved or resolved? Yes 2. Were you prescribed any medications while in the ED or advised to stop any medication? No - If yes, were you able to fill your prescriptions? Not applicable -if stopped medication, what was the medication? na 3. Were you advised to schedule a follow up appointment with your provider? yes - If no, Do you feel like you need an appointment scheduled? Not applicable - If yes, Do you need this scheduled now or has this already been scheduled? No 4. Were you able to contact the office or christian education director provider prior to your ED visit? No 5. Is there anything else I can do for you today? No Allergies As of Date: 11/09/2023 Noted Allergy Reaction CITALOPRAM HYDROBROMIDE 10/27/2004 10 - Anaphylaxis Comments: TACHYCARDIA MORPHINE 01/26/2005 8 - GI Upset AMOXICILLIN 10/24/2004 8 - GI Upset 14 - Other: See Comments Comments: Makes me worse ASA (SALICYLATES) 10/27/2004 4 - Hives CHOCOLATE 10/27/2004 EFFEXOR (VENLAFAXINE HCL) 10/27/2004 11 - Vomiting NAPROXEN 02/16/2006 5 - Intolerance Comments: Depression PENICILLIN G 09/08/2021 8 - GI Upset TAPE (ADHESIVE TAPE-SILICONES) 01/27/2021 14 - Other: See Comments Comments: Rash TOMATO 12/21/2020 5 - Intolerance Comments: If cooked cant tolerate them TRAMADOL 10/24/2004 8 - GI Upset TRAZODONE 08/28/2017 1 - Mental Status Change Comments: Causes hallucinations VENLAFAXINE 12/13/2015 16 - Unknown Date Reviewed: 10/04/2023 Reviewed by: Jmaia Lozada MA - Fully Assessed Prescriptions as of 11/09/2023 - mirabegron (MYRBETRIQ) 50 mg Tb24 Take 1 tablet by mouth once daily. - rimegepant (NURTEC ODT) 75 mg disintegrating tablet Take 1 tablet at onset of headache/migraine. Only take 1 tablet as single dose in 24 hour period. - ondansetron orally disintegrating (ZOFRAN ODT) 4 mg disintegrating tablet dissolve 1 tablet ON TONGUE every 8 hours if needed for nausea OR vomiting - lansoprazole (PREVACID) 30 mg capsule Take 1 capsule by mouth two times a day. - simvastatin (ZOCOR) 20 mg tablet Take 2 tablets by mouth daily at bedtime. - loratadine (CLARITIN) 10 mg tablet take 1 tablet by mouth once daily - gabapentin (NEURONTIN) 800 mg tablet Take 1 tablet by mouth four times daily for 180 days. - MEDICATION, NON-DATABASE Marijuana for migraines Facility-Administered Medications as of 11/09/2023 - onabotulinum toxin type A 200 Units injection (BOTOX) Problem List As Of Date 11/09/2023 Noted Resolved Supervision of other normal [Z34.80] 01/26/2005 01/06/2016 CELLULITIS FINGER,PARONYCHIA/ONYCHIA [L03.019] 12/12/2005 01/06/2016 Viral warts, unspecified [B07.9] 12/12/2005 01/06/2016 VISUAL LOSS, ONE EYE NOS [H54.60] 09/17/2006 Pain in joint, lower leg [M25.569] 09/08/2011 01/06/2016 Pain in joint, pelvic region and thigh [M25.559]09/08/2011 01/06/2016 Carpal tunnel syndrome, left [G56.02] 05/09/2012 Right knee pain [M25.561] 06/30/2014 Diverticulosis of intestine without bleeding [K*11/10/2015 Amenorrhea, unspecified [N91.2] 07/20/2015 Leiomyoma of uterus, unspecified [D25.9] 10/07/2015 Major depressive disorder, single episode, unsp*06/15/2015 Pain in right shoulder [M25.511] 10/12/2015 Unspecified asthma, uncomplicated [J45.909] 06/15/2015 Gastro-esophageal reflux disease without esopha*12/13/2015 Anxiety [F41.9] 12/13/2015 Left ovarian cyst [N83.202] 12/13/2015 History of drug abuse [F19.11] 12/13/2015 History of migraine [Z86.69] 12/13/2015 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] 12/13/2015 Kidney stone [N20.0] 12/13/2015 History of seizure [Z87.898] 12/13/2015 History of renal cell cancer [Z85.528] 01/06/2016 Renal neoplasm [D49.519] 04/27/2016 Occipital neuralgia of right side [M54.81] 08/15/2016 Eustachian tube dysfunction, bilateral [H69.93] 10/11/2016 Lumbar radiculopathy [M54.16] 10/11/2016 Leg weakness, bilateral [R29.898] 10/11/2016 Chronic bilateral low back pain with bilateral *10/11/2016 Chronic right-sided thoracic back pain [M54.6, *10/11/2016 Paresthesia of bilateral legs [R20.2] 10/11/2016 Osteoarthritis of spine with radiculopathy, lum*12/20/2016 Obesity, Class III, BMI >= 40 (morbid obesity) *01/12/2017 Migraine with aura, not intractable, without st*01/12/2017 Intervertebral disc disorder with radiculopathy*03/23/2017 Jaw pain [R68.84] 03/23/2017 Low back pain with left-sided sciatica [M54.42] 03/23/2017 Low back pain with right-sided sciatica [M54.41]03/23 (more content not included)...[facility]09-25-2024 History of Present illness Narrative* Daniel Aburto - 10/31/2023 12:00 PM EDT Images from the original note were not included. [facility] [address] [facility] [address] Dept: [phone] Dept PHYSICAL THERAPY EVALUATION Patient Name: Petar Alcocer : 1975 Date of Service: 10/31/2023 Referring Provider: Sabas Reyes DPM Visit #: 1 Diagnosis: Plantar fascial fibromatosis Pain in left foot Neuralgia and neuritis, unspecified General Information Mechanism of injury: 05/18/23 operation: 1. 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 Implantation of nerve of a branch of the common peroneal nerve into the peroneal muscle belly left lower leg 3. Neuroplasty dorsal left foot of the deep peroneal nerve Release of anterior compartment above the fibular head Neuroma removal off of fibular nerve LLE Extensor retinaculum release off of deep peroneal nerve Patient Preferences: Petar Precautions/Red Flags: Yes medical precautions: bipolar disorder, Hx of heart attack, PTSD, CVA Adhesive allergy: no taping, wound on plantar surface of L foot, tinea pedis Fall Risk: Yes and reports that she gets up too quickly and then she falls; last time she fell was about a week ago. 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 PSHX: Petar has no past surgical history on file. Have you experienced any anxiety or depression?: No Have you experienced thoughts of self-harm or suicidal thoughts?: No Social Determinates of Health Reviewed: Yes Physician follow-up appointment?: No Subjective Chief Complaint: Since surgery, reports B pain in R>L. Reports that she feels like her heels areon fire and that there's a knife stabbing into her heels. Pain: Current: 8/10 Best: 8/10 Worst: 10/10 Symptoms Aggravated by: extended standing, stagnant ankles, donning shoes/socks, steps Symptoms Relieved by: ice bath, cold water Prior Level of Function: independent Current Level of Function: ankles sitting still for long periods of time, must move ankles constantly. Denies any issues with walking for extended periods. Able to stand no more than an hour without pain. Reports that she must lean on L side when standing for extended periods. Reports that if standing for extended times her back will start to hurt and her knees will give out. Reports that she struggles with steps due to knee pain; going down steps her heel is an aggravating factor; Alternates feet going up and down steps. L foot is challenging to don socks and shoes due to pain on dorsal aspect of foot. Reports must sleep at night with her feet dorsiflexed. Patient s Stated Goal: reduce ankle pain and improve function Outcome Measures Foot and Ankle Ability Measure (FAAM): 62/84 =73.8% ability Objective ANKLE Leg length: L longer than R Observation: wound on plantar surface of foot, leans to LLE in stance Gait: Antalgic L Transfers: WNL Hip & Knee AROM: WFL Date Recorded: 10/31/23 Ankle ROM Right Left AROM AROM Ankle Dorsiflexion (DF) WNL WNL Ankle Plantarflexion (PF) WNL WNL Inversion WNL WNL Eversion WNL WNL Lower Extremity Strength Right Left Hip Flexion 4 p! 3+ Hip Abduction 5 4- p! Hip Extension 4 p! 4 p! Hip External Rotation (ER) 5 5 Hip Internal Rotation (IR) 5 5 Knee Extension 5 5 Knee Flexion 5 5 Ankle Dorsiflexion (DF) 5 5 Ankle Plantarflexion (PF) 5 5 Inversion 4 p! 5 Eversion 5 5 Great toe: L: 5/5; R: 5/5 Other digits: L: 5/5; R: 5/5 Single Leg Stance (SLS) Balance R= DNT seconds, L= DNT seconds. Joint mobility: DNT Palpation: TTP L calcaneus, L medial and lateral malleolus, evertors, invertors, gastroc; moderate turgor L gastroc Flexibility: Gastroc limited moderately Assessment Petar is a 48 y.o. patient with chief complaint of heel pain and lower leg pain, who presents with signs and symptoms consistent with plantar fasciitis. The patient had a surgery done on the L foot that seems to exacerbate and/or contribute to her plantar fasciitis. Weakness in hip abductors/gluts may also be a contributing factor to the patient's condition. The patient shows pain with palpation most areas of the left leg. STM to the gastroc did relieve some pain for the patient. The patient would benefit from skilled physical therapy to address decreased strength, decreased range of motion, pain, soft tissue impairment, impaired gait, and impaired functional activities. Evaluation complexity is moderate secondary to: patient has 3 or more personal factors and/or comorbidities that will affect plan of care, therapy will be addressing 3 or more elements, and clinical presentation is evolving. Body Systems Affected: musculoskeletal and neuromuscular Rehab Potential: Good Learning Preferences: demonstration, explanation, printed materials, and unable to state Barriers to Rehab: comorbidities Goals Plan Frequency and Duration: 2/wk for 4 weeks Therapeutic Contents: client education, gait training, group therapy, home exercise program, manualtherapy techniques, neuromuscular re-education, therapeutic activities, therapeutic exercise, trigger point dry needle, orthotic fitting and training, and modalities as needed Plan for next session: assess HEP, assess patient's purchase of night splints and anitpronation wrap, great toe extension, clams, assess SLS Risks and benefits were discussed with the patient and/or family, and the patient and/or family participated with the plan of care and agrees. Treatment Educated patient on findings of clinical exam, POC, and HEP. Discussed with patient purchasing night splints and arch wraps. Provided a print out of [employer]. Educated patient on management of wounds and athlete's foot. Therapeutic Exercise Therapeutic Exercise Activity 1: Plantar fascia stretch Activity 1 Comment: 1 x 30 seconds Therapeutic Exercise Activity 2: Seated towel gastroc stretch Activity 2 Comment: 1 x 30 sec ea side Therapeutic Exercise Activity 3: Arch lifts Activity 3 Comment: 1 x 10 Therapeutic Exercise Activity 4: Inversion/eversion towel Activity 4 Comment: 1 x 10 ea Therapeutic Exercise Activity 5: Towel scrunches Activity 5 Comment: 1 x 10 Therapeutic Exercise Therapeutic Exercise Activity 1: Plantar fascia stretch Activity 1 Comment: 1 x 30 seconds Therapeutic Exercise Activity 2: Seated towel gastroc stretch Activity 2 Comment: 1 x 30 sec ea side Therapeutic Exercise Activity 3: Arch lifts Activity 3 Comment: 1 x 10 Therapeutic Exercise Activity 4: Inversion/eversion towel Activity 4 Comment: 1 x 10 ea Therapeutic Exercise Activity 5: Towel scrunches Activity 5 Comment: 1 x 10 Soft Tissue Mobilization Location: L gastroc Body Position: Prone Home Exercise Program: Created and see [facility] Time Entry Total Treatment Time Start Time: 1200 Stop Time: 1255 Time Calculation (min): 55 min PT Evaluation Time Entry PT Evaluation (Low) Time Entry: 25 PT Therapeutic Procedures Time Entry Therapeutic Activity Time Entry: 20 Manual Therapy Time Entry: 10 PARKER Branham I was present for entire evaluation/treatment and was helping to guide the care provided by the student therapist. Linda Randle PT, DPT, NCS documented in this [facility]08-29-2024 NoteHNO ID: [id number] Author: ERIC COSME PA Service: ? Author Type: Physician Container Shop Welder Type: Progress Notes Filed: 10/04/2023 19:02 Note Text: Patient presents with: Ear Problem: Right ear issues, bleeding from ear, pain in ear, walking sideways x 2 days HPI: Feeling throbbing right ear pain today. She had blood come from the orifice a couple days ago but it was not painful then. Positive symptoms: Earache, feels off balance at times, bump on genital since yesterday, Negative symptoms: Cough, Sore throat, Sinus pressure, Nasal Congestion, Rhinorrhea, Fever, Malaise, OTC: none PAST MEDICAL HISTORY No date: Adjustment disorder with depressed mood No date: Allergic rhinitis No date: Arthritis of right knee No date: Asthma No date: Bilateral ovarian cysts 1994: Cholecystitis, unspecified Comment: Gallbladder removed No date: Chronic pain syndrome No date: Fibroids No date: Gastric ulcer, unspecified as acute or chronic, without mention of hemorrhage or perforation, with obstruction Comment: occasional bleeding No date: GERD (gastroesophageal reflux disease) No date: 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 No date: Hypertriglyceridemia No date: Hypoactive thyroid No date: Insomnia No date: Marijuana smoker Comment: helps with migraines No date: Migraine with aura, without mention of intractable migraine without mention of status migrainosus Comment: daily No date: Pelvic pain in female No date: Short-term memory loss Comment: 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 SYNDROME No date: Unspecified asthma(493.90) Comment: occasional inhaler 12/2005: Urinary calculus, unspecified Comment: Renal stones: left kidney per CT MEDICATIONS: Current Outpatient Medications Medication Sig mirabegron (MYRBETRIQ) 50 mg Tb24 Take 1 tablet by mouth once daily. rimegepant (NURTEC ODT) 75 mg disintegrating tablet Take 1 tablet at onset of headache/migraine. Only take 1 tablet as single dose in 24 hour period. ondansetron orally disintegrating (ZOFRAN ODT) 4 mg disintegrating tablet dissolve 1 tablet ON TONGUE every 8 hours if needed for nausea OR vomiting lansoprazole (PREVACID) 30 mg capsule Take 1 capsule by mouth two times a day. simvastatin (ZOCOR) 20 mg tablet Take 2 tablets by mouth daily at bedtime. loratadine (CLARITIN) 10 mg tablet take 1 tablet by mouth once daily gabapentin (NEURONTIN) 800 mg tablet Take 1 tablet by mouth four times daily for 180 days. MEDICATION, NON-DATABASE Marijuana for migraines Current Facility-Administered Medications Medication Dose Route Frequency onabotulinum toxin type A 200 Units injection (BOTOX) 200 Units OTHER q 3 MONTHS Facility-Administered Medications Ordered in Other Visits Medication Dose Route Frequency lidocaine (PF) 10 mg/mL (1 %) 1-2 mg injection (XYLOCAINE) 0.1-0.2 mL INTRADERMAL PRN lactated ringers iv infusion 30 mL/hr INTRAVENOUS CONTINUOUS ALLERGIES: ALLERGIES Allergen Reactions Citalopram Hydrobro* Anaphylaxis TACHYCARDIA Morphine GI Upset Amoxicillin GI Upset, Other: See Comments Makes me worse Asa [Salicylates] Hives Chocolate Effexor [Venlafaxin* Vomiting Naproxen Intolerance Depression Penicillin G GI Upset Tape [Adhesive Tape* Other: See Comments Rash Tomato Intolerance If cooked cant tolerate them Tramadol GI Upset Trazodone Mental Status Change Causes hallucinations Venlafaxine Unknown VITALS: BP 100/70 Pulse 65 Temp (!) 35.8 ?C (96.4 ?F) Resp 20 Wt 81.1 kg (178 lb 12.7 oz) LMP 08/19/2014 SpO2 97% BMI 37.37 kg/m? PHYSICAL EXAM: GEN: Pleasant, in no acute distress. HEENT: PERRL, EOMI, conjunctiva clear Ears: canals clear. TMs without erythema, bulge, or effusion. Sesame seed sized open comedone extracted from the base of the right ada Sinuses: non-tender frontal sinus, non-tender maxillary sinuses Throat: moist mucous membranes, no erythema, no exudate Neck: supple, no thyromegaly, no lymphadenopathy HEART: regular rate and rhythm, no murmurs LUNGS: clear to auscultation, no wheezes or crackles, no increased WOB ASSESSMENT/PLAN: 1. Otalgia, right - ICD9: 388.70, ICD10: H92.01 (primary diagnosis) 2. Open comedone - ICD9: 706.1, ICD10: L70.0 No visible lesion in the right ear other than comedone. Follow up if pain worsens or persists. Requests female provider to evaluate bump on her genital area. HSV collected. Bang Mandujano MD Exam completed by myself vaginal area reveals 1 mm raised erythematous lesion over left superior labia majora. No fluctuance or abscess. Appears to be an irritated hair follicle. No signs of infection. Herpes swab obtained. Results pending. SHAHZAD [facility]08-21-2024 History of Present illness Narrative* Myrtle Garcia PT - 09/26/2023 8:47 AM EDT Images from the original note were not included. [facility] [place] [facility] [address] [address] Discharge Notification Patient Name: Petar Alcocer : 1975 Today's Date: 09/26/2023 Patient has not been seen since 08/22/2023. The patient will be discharged at this time due to inactivity. The patient has not been seen for outpatient therapy in 30+ days and has not made contact to reschedule. The patient will require new referral/evaluation to resume therapy in the future. The patient will be discharged at this time. Please refer to initial evaluation or re-assessment for last goals/objective measures assessment and progress report. Thank you for this referral. For any questions on this patient s course of therapy, please call theclinic for clarification. Myrtle Garcia PT documented in this [facility]08-16-2024 NoteHNO ID: [id number] Author: CAREY MORRISON LPN Service: ? Author Type: LICENSED NURSE Type: Progress Notes Filed: 09/21/2023 13:00 Note Text: ED Follow Up: Patient discharged from [facility] ED on 09/18/2023. 1. How are you feeling since your ED visit? Better Have your symptoms improved or resolved? Yes 2. Were you prescribed any medications while in the ED or advised to stop any medication? Yes - If yes, were you able to fill your prescriptions? Yes -if stopped medication, what was the medication? na 3. Were you advised to schedule a follow up appointment with your provider? Yes - If no, Do you feel like you need an appointment scheduled? Not applicable - If yes, Do you need this scheduled now or has this already been scheduled? No, pt seen dentist today 09/21/2023 4. Were you able to contact the office or christian education director provider prior to your ED visit? No 5. Is there anything else I can do for you today? [facility] 09-21-2023 NotePatient Outreach (AGFAMPLE) BRITTNEY ALCOCER ([id number]) 1975 F NFR Date Time Provider Department 09/21/23 CAREY MORRISON During your visit today, we recorded the following information about you: Carey Morrison LPN 09/21/2023 1:00 PM Signed ED Follow Up: Patient discharged from [facility] ED on 09/18/2023. 1. How are you feeling since your ED visit? Better Have your symptoms improved or resolved? Yes 2. Were you prescribed any medications while in the ED or advised to stop any medication? Yes - If yes, were you able to fill your prescriptions? Yes -if stopped medication, what was the medication? na 3. Were you advised to schedule a follow up appointment with your provider? Yes - If no, Do you feel like you need an appointment scheduled? Not applicable - If yes, Do you need this scheduled now or has this already been scheduled? No, pt seen dentist today 09/21/2023 4. Were you able to contact the office or christian education director provider prior to your ED visit? No 5. Is there anything else I can do for you today? No Allergies As of Date: 09/21/2023 Noted Allergy Reaction CITALOPRAM HYDROBROMIDE 10/27/2004 10 - Anaphylaxis Comments: TACHYCARDIA MORPHINE 01/26/2005 8 - GI Upset AMOXICILLIN 10/24/2004 8 - GI Upset 14 - Other: See Comments Comments: Makes me worse ASA (SALICYLATES) 10/27/2004 4 - Hives CHOCOLATE 10/27/2004 EFFEXOR (VENLAFAXINE HCL) 10/27/2004 11 - Vomiting NAPROXEN 02/16/2006 5 - Intolerance Comments: Depression PENICILLIN G 09/08/2021 8 - GI Upset TAPE (ADHESIVE TAPE-SILICONES) 01/27/2021 14 - Other: See Comments Comments: Rash TOMATO 12/21/2020 5 - Intolerance Comments: If cooked cant tolerate them TRAMADOL 10/24/2004 8 - GI Upset TRAZODONE 08/28/2017 1 - Mental Status Change Comments: Causes hallucinations VENLAFAXINE 12/13/2015 16 - Unknown Date Reviewed: 09/18/2023 Reviewed by: Cyn Benjamin MA - Fully Assessed Prescriptions as of 09/21/2023 - clindamycin (CLEOCIN) 300 mg capsule Take 1 capsule by mouth three times a day for 7 days. - rimegepant (NURTEC ODT) 75 mg disintegrating tablet Take 1 tablet at onset of headache/migraine. Only take 1 tablet as single dose in 24 hour period. - ondansetron orally disintegrating (ZOFRAN ODT) 4 mg disintegrating tablet dissolve 1 tablet ON TONGUE every 8 hours if needed for nausea OR vomiting - lansoprazole (PREVACID) 30 mg capsule Take 1 capsule by mouth two times a day. - mirabegron (MYRBETRIQ) 50 mg Tb24 Take 1 tablet by mouth once daily. - simvastatin (ZOCOR) 20 mg tablet Take 2 tablets by mouth daily at bedtime. - loratadine (CLARITIN) 10 mg tablet take 1 tablet by mouth once daily - gabapentin (NEURONTIN) 800 mg tablet Take 1 tablet by mouth four times daily for 180 days. - MEDICATION, NON-DATABASE Marijuana for migraines Facility-Administered Medications as of 09/21/2023 - lidocaine (PF) 10 mg/mL (1 %) 1-2 mg injection (XYLOCAINE) - lactated ringers iv infusion - onabotulinum toxin type A 200 Units injection (BOTOX) Problem List As Of Date 09/21/2023 Noted Resolved Supervision of other normal [Z34.80] 01/26/2005 01/06/2016 CELLULITIS FINGER,PARONYCHIA/ONYCHIA [L03.019] 12/12/2005 01/06/2016 Viral warts, unspecified [B07.9] 12/12/2005 01/06/2016 VISUAL LOSS, ONE EYE NOS [H54.60] 09/17/2006 Pain in joint, lower leg [M25.569] 09/08/2011 01/06/2016 Pain in joint, pelvic region and thigh [M25.559]09/08/2011 01/06/2016 Carpal tunnel syndrome, left [G56.02] 05/09/2012 Right knee pain [M25.561] 06/30/2014 Diverticulosis of intestine without bleeding [K*11/10/2015 Amenorrhea, unspecified [N91.2] 07/20/2015 Leiomyoma of uterus, unspecified [D25.9] 10/07/2015 Major depressive disorder, single episode, unsp*06/15/2015 Pain in right shoulder [M25.511] 10/12/2015 Unspecified asthma, uncomplicated [J45.909] 06/15/2015 Gastro-esophageal reflux disease without esopha*12/13/2015 Anxiety [F41.9] 12/13/2015 Left ovarian cyst [N83.202] 12/13/2015 History of drug abuse [F19.11] 12/13/2015 History of migraine [Z86.69] 12/13/2015 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] 12/13/2015 Kidney stone [N20.0] 12/13/2015 History of seizure [Z87.898] 12/13/2015 History of renal cell cancer [Z85.528] 01/06/2016 Renal neoplasm [D49.519] 04/27/2016 Occipital neuralgia of right side [M54.81] 08/15/2016 Eustachian tube dysfunction, bilateral [H69.93] 10/11/2016 Lumbar radiculopathy [M54.16] 10/11/2016 Leg weakness, bilateral [R29.898] 10/11/2016 Chronic bilateral low back pain with bilateral *10/11/2016 Chronic right-sided thoracic back pain [M54.6, *10/11/2016 Paresthesia of bilateral legs [R20.2] 10/11/2016 Osteoarthritis of spine with radiculopathy, lum*12/20/2016 Obesity, Class III, BMI >= 40 (morbid obesity) *01/12/2017 Migraine with aura, not intractable, without st* (more content not included)... [facility]08-13-2024 NoteHNO ID: [id number] Author: GLO DALAL APRN.GASOLINE LOCOMOTIVE CRANE OPERATOR Service: ? Author Type: Nurse Practitioner Type: Progress Notes Filed: 09/18/2023 18:30 Note Text: Subjective HPI HPI Brittney Alcocer is a 48 year old female who presents today for CC of dental pain/swelling. This started today. Has tried nothing for relief. Symptoms are worsened by nothing. Hx of dental problems, saw dentist recently. Denies dental injury. .Patient presents with: Mouth/Lip Problem: Upper gumline abscess x this AM, feeling pain in sinuses and drainage PAST MEDICAL HISTORY No date: Adjustment disorder with depressed mood No date: Allergic rhinitis No date: Arthritis of right knee No date: Asthma No date: Bilateral ovarian cysts 1994: Cholecystitis, unspecified Comment: Gallbladder removed No date: Chronic pain syndrome No date: Fibroids No date: Gastric ulcer, unspecified as acute or chronic, without mention of hemorrhage or perforation, with obstruction Comment: occasional bleeding No date: GERD (gastroesophageal reflux disease) No date: 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 SYNDROME No date: Unspecified asthma(493.90) Comment: occasional inhaler 12/2005: Urinary calculus, unspecified Comment: Renal stones: left kidney per CT PAST SURGICAL HISTORY 08/02/2020: BLADDER SURGERY HX Comment: Cystoscopy and Sling 10/12/2016: CARPAL TUNNEL; Left Comment: Dr. Conner 1994: DELIVERY ONLY Comment: , low cervical 07/26/2005: DELIVERY ONLY Comment: , low cervical 1996: CHOLECYSTECTOMY 09/03/2017: COLONOSCOPY Comment: Patito Melendez NORMAL. Repeat in 10 years. 2016: DILATION AND CURETTAGE DXAND/THER NONOBSTETRIC Comment: Dilation AND curettage X 2 02/25/2010: EGD Comment: Abnormal LES, esophagitis, antral ulcers, retained fluid in stomach, pos H Pylori 04/14/2008: EGD Comment: antral gastritis, neg h Pylori 2021: EGD W/O [facility] SPEC VARICIES INJ 06/29/2021: EGD W/O [facility] SPEC VARICIES INJ No date: LAPAROSCOPY SURG CHOLECYSTECTOMY 2006: PAST SURGICAL HISTORY OF Comment: REMOVAL OF FATTY TUMOR FROM R ARM 2007: PAST SURGICAL HISTORY OF Comment: Carpal Tunnel Surgery on right wrist 09/27/2012: PAST SURGICAL HISTORY OF Comment: left wrist carpal tunnel release 2017: PAST SURGICAL HISTORY OF; Right Comment: partial nephrectomy 12/24/2019: VAGINAL HYSTERECTOMY 09/03/2018: WART REMOVAL WHI; Right Comment: Removal of wart on third finger right hand - Dr. Herrera ALLERGIES Citalopram Hydrobromide, Morphine, Amoxicillin, Asa [Salicylates], Chocolate, Effexor [Venlafaxine Hcl], Naproxen, Penicillin G, Tape [Adhesive Tape-Silicones], Tomato, Tramadol, Trazodone, and Venlafaxine MEDICATIONS clindamycin (CLEOCIN) 300 mg capsuleTake 1 capsule by mouth three times a day for 7 days.Disp: 21 capsuleRfl: 0 rimegepant (NURTEC ODT) 75 mg disintegrating tabletTake 1 tablet at onset of headache/migraine. Only take 1 tablet as single dose in 24 hour period.Disp: 8 tabletRfl: 11 ondansetron orally disintegrating (ZOFRAN ODT) 4 mg disintegrating tabletdissolve 1 tablet ON TONGUE every 8 hours if needed for nausea OR vomitingDisp: 20 tabletRfl: 11 lansoprazole (PREVACID) 30 mg capsuleTake 1 capsule by mouth two times a day.Disp: 60 capsuleRfl: 0 mirabegron (MYRBETRIQ) 50 mg Yt19Fcgm 1 tablet by mouth once daily.Disp: 30 tabletRfl: 5 simvastatin (ZOCOR) 20 mg tabletTake 2 tablets by mouth daily at bedtime.Disp: 180 tabletRfl: 3 loratadine (CLARITIN) 10 mg tablettake 1 tablet by mouth once dailyDisp: 28 tabletRfl: 11 gabapentin (NEURONTIN) 800 mg tabletTake 1 tablet by mouth four times daily for 180 days.Disp: 120 tabletRfl: 5 MEDICATION, NON-DATABASEMarijuana for migrainesDisp: Rfl: FAMILY HISTORY Problem Relation Age of Onset Hypertension Mother Psychiatry Mother DEPRESSION other (Centre's Chorea) Mother other (Other) Sister stillborn other (Heart Disease) Maternal Grandfather other (Down Syndrome) Paternal Grandfather other (Centre's Chorea) Brother ADD/ADHD Son other (Rosacea) Son other (Gallbladder disease) Son Asthma Son Colon Cancer No Family History Social History Tobacco Use Smoking status: Every Day Packs/day: 0.50 Years: 36.00 Additional pack years: 0.00 Total pack years: 18.00 Types: Cigarettes Smokeles (more content not included)...[facility]08-06-2024 Note HNO ID: [id number] Author: YENNY OSMAN APRN.GASOLINE LOCOMOTIVE CRANE OPERATOR Service: ? Author Type: Nurse Practitioner Type: Progress Notes Filed: 09/11/2023 16:31 Note Text: Headache Center Follow-up Visit Impression: Chronic migraine without aura, intractable, without status migrainosus (primary encounter diagnosis) Nausea and vomiting, unspecified vomiting type Brittney Alcocer has been previously approved for an Oral Calcitonin Gene-Related Peptide Receptor Antagonist (GEPANT) Rimegepant for the treatment of abortive use. The patient has demonstrated the following: Provider attests patient has had a positive clinical response: Yes Patient will not use with another Oral Calcitonin Gene-Related Peptide Receptor Antagonist (GEPANT): Yes Patient's quality of life and ability to perform ADLs has improved: Yes The patient has tried and failed the following : We suggest the patient continue treatment with GEPANT Rimegepant. The following preventative medications have been tried for three or more months without benefit: Anti-Convulsant Divalproex sodium (Depakote) Gabapentin (Neurontin) Anti-Depressant and Antipsychotic Amitriptyline (Elavil) Bupropion (Wellbutrin) Citalopram (Celexa) Fluoxetine (Prozac) Olanzapine (Zyprexa, Zydis) Quetiapine (Seroquel) Sertraline (Zoloft) Venlafaxine (Effexor) Blood Pressure NO beta blockers - asthma MABs Erenumab (Aimovig) lost efficacy Galcanezumab (Emgality) not effective Botulinum Toxin Onabotulinum Toxin A (Botox) Supplements Magnesium Riboflavin The following abortive medications have been tried but require high frequency use which can lead to Medication Overuse Headache: Analgesic Diclofenac (Voltaren, Cataflam, Cambia) Hydrocodone/Acetaminophen (Vicodin, [place]) Indomethacin (Indocin) Ketorolac (Toradol) Tramadol (Ultram) celebrex Anti-Anxiety Alprazolam (Xanax, Niravam) Anti-Migraine Naratriptan (Amerge) Rizatriptan (Maxalt) Sumatriptan (Imitrex, Sumavel) raised blood pressure cannot use triptans - H/O TIA and KS GEPANTS Rimegepant (Nurtec) Over the Counter Medications Acetaminophen (Tylenol) Ibuprofen (Advil, Motrin) Follow-Up Onabotulinum Toxin A (BotoxTM) for Migraine Indication: Chronic Intractable Migraine Referral Expiration: 12/09/2023 Prior to the initiation of the FIRST treatment with Onabotulinum Toxin A, the patient reported the following average headache frequency over the past 3 MONTHS: Number of moderate-severe migraine days/month: 30 (daily) Number of mild migraine days/month: 0 Number of headache free days/month: 0 (0 headache-free hours) Migraine severity: 11/14 After treatment with Onabotulinum Toxin A: Number of moderate-severe migraine days/month: 15 Number of mild migraine days/month: 0 Number of headache free days/month: 15 (360 headache-free hours) Migraine severity: 08/14 Patient reduction in overall migraine days: Yes Patient reduction in moderate-severe migraine days: Yes Patient reduction of headache hours by 100 hours or more: Yes (reduction of 360 hours) Individual has obtained clinical benefit deemed significant by individual or prescriber (Y/N): Yes Patient's quality of life and ability to perform ADLs has improved (Y/N): Yes Side effects: none Wearing off: Yes - 8 weeks after treatment The patient has been assessed for disorders which could contribute to breathing or swallowing difficulty, and there is no contraindication with PREEMPT Botox. There is no documented allergic reaction/hypersensitivity to any botulinum toxin and there is no active infection at proposed injection site. HEADACHE SCORES: 09/15/2022 12/04/2022 02/09/2023 Headache Questions ER visits since last office visit: 0 2 0 Hospital stays since last office visit 0 0 Limited ADLs in the last month: 0 6 Days missed from work or school in the last month: 0 2 Days headache pain free in the last month: 2 2 Days per month with ALL of the following symptoms - decreased productivity, light sensitivity and nausea: 7 5 Initial improvement of headache after botox injection at last visit: Very much improved Very much improved PRN medication usage in the last month: 4 Patient impression of improvement since last visit: Minimally improved Much improved 12/04/2022 02/09/2023 07/12/2023 HIT-6 HIT-6 63 (Severe impact) 66 (Severe impact) 67 (Severe impact) 12/04/2022 02/09/2023 07/12/2023 DAVID - 2/7 SCORES DAVID-2 Score 0 0 3 DAVID-7 Score 9 12/04/2022 02/09/2023 07/12/2023 Migraine Specific QOL - Higher scores indicate better HRQL Role Function-Restrictive Transformed Score (range: 0-100) 60 60 0 Role Function-Preventive Transformed Score (range: 0-100) 60 60 0 Emotional Function Transformed Score (range: 0-100) 80 60 13.33 07/12/2023 02/09/2023 12/04/2022 PHQ-9 Score 12 1 8 BP 101/67 (BP Site: Left Arm, BP Position: Sitting, BP Cuff Size: Regular Adult) Pulse 76 Ht 147.3 cm (4' 1 (more content not included)...[facility]07-23-2024 NoteHNO ID: [id number] Author: LAURA CAROLINA RN Service: ? 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 Is outside in car. Pulling up to brick picker sign now. [facility]07-22-2024 NoteHNO ID: [id number] Author: SNOW QUICK PA-C Service: ? Author Type: Physician Container Shop Welder Type: Progress Notes Filed: 08/27/2023 09:25 Note Text: CHIEF COMPLAINT: Patient presents with: Abdominal Pain: Constipation, nausea/vomiting. Was in ER on the . Pt states her urine has been orange for the past 3 days HPI Brittney Alcocer is a 48 year old female here today for Abdominal Pain (Constipation, nausea/vomiting. Was in ER on the . Pt states her urine has been orange for the past 3 days ) Patient tells me that she has been able to keep anything down besides water since August 16. Notes that she is having constant upper abdominal pain. Vomiting about 3 hours after eating. Notes dysphagia, feels like her throat is very dry. Notes nausea. Note urine is orange. Denies urinary pain. Notes dizziness. CT abd/pelvis 08/17/2023: IMPRESSION: No acute process in the abdomen or pelvis. Last OV with Dr. Mcghee 10/18/2021: ASSESSMENT: Ms. Petar Alcocer is a 46 year old lady with h/o cholecystectomy, chronic smoking, chronic MJ use, partial nephrectomy for clear cell carcinoma (2016), hysterectomy here for evaluation of abdominal pain. EGD/imaging as above - r/o biliary gastropathy. Did not tolerate carafate. Does have post prandial fullness, N/V - r/o gastroparesis, possible component of adhesive bowel from multiple abdominal surgeries. Elevated Alk P/lipase. Denies any abdominal pain. Denies any h/o liver disease. Normal AST/ALT. About 80% of AlkP is release by liver, 20% bones, placenta etc. GGT was normal so unsure if Alkp is from liver origin. AST/ALT and bilirubin are normal as well. Elevated lipase. No known h/o pancreatitis. Denies any recent alcohol use but was heavy when she was young (from age 9-10 to until her 20s). Has h/o right renal cell carcinoma s/p partial nephrectomy. Screen for colon cancer. colonoscopy [place] [address] Naidu for rectal bleeding. Normal colon- repeat recommended in 10 years. PLAN: Schedule US abdomen. Schedule gastric emptying study. Continue Omeprazole at current doses for now. Start Colestipol 1g po bid. Start Align 4mg po daily. EGD 06/29/2021: Impression: - Z-line irregular, 38 cm from the incisors. - Esophagogastric landmarks identified. - Erythematous mucosa in the prepyloric region of the stomach. Biopsied. - Bilious gastric fluid. - Normal examined duodenum. Biopsied. Recommendation: - Patient has a contact number available for emergencies. The signs and symptoms of potential delayed complications were discussed with the patient. Return to normal activities tomorrow. Written discharge instructions were provided to the patient. - Resume previous diet. - Continue present medications. - Await pathology results. - The patient has taken no previous anticoagulant or antiplatelet agents. - Return to GI clinic as previously scheduled. - Use sucralfate tablets 1 gram PO BID for 2 months. FINAL DIAGNOSIS A. Duodenum, biopsy: - No significant pathologic change. B. Stomach, biopsy: - Mild chronic inactive gastritis. Immunohistochemical stain for Helicobacter pylori pending. Latest Ref Rng 08/17/2023 WBC 3.70 - 11.00 k/uL 7.83 RBC 3.90 - 5.20 m/uL 4.81 Hemoglobin 11.5 - 15.5 g/dL 15.5 Hematocrit 36.0 - 46.0 % 46.0 MCV 80.0 - 100.0 fL 95.6 MCH 26.0 - 34.0 pg 32.2 MCHC 30.5 - 36.0 g/dL 33.7 RDW-CV 11.5 - 15.0 % 13.2 Platelet Count 150 - 400 k/uL 212 MPV 9.0 - 12.7 fL 9.5 Neut% % 76.3 Abs Neut (ANC) 1.45 - 7.50 k/uL 5.97 Lymph% % 14.9 Abs Lymph 1.00 - 4.00 k/uL 1.17 Simpson% % 6.9 Abs Simpson <0.87 k/uL 0.54 Eosin% % 1.4 Abs Eosin <0.46 k/uL 0.11 Baso% % 0.4 Abs Baso <0.11 k/uL 0.03 Immature Gran % % 0.1 IMMATURE GRANS (ABS) <0.10 k/uL <0.03 DTYPE Auto Protein, Total 6.3 - 8.0 g/dL 7.9 Albumin 3.9 - 4.9 g/dL 4.6 Calcium 8.5 - 10.2 mg/dL 9.5 Bilirubin, Total 0.2 - 1.3 mg/dL 0.6 Alkaline Phosphatase 34 - 123 U/L 125 (H) AST 13 - 35 U/L 16 ALT 7 - 38 U/L 14 Glucose 74 - 99 mg/dL 111 (H) BUN 7 - 21 mg/dL 12 Creatinine 0.58 - 0.96 mg/dL 0.86 Sodium 136 - 144 mmol/L 138 Potassium 3.7 - 5.1 mmol/L 4.0 Chloride 98 - 107 mmol/L 102 CO2 22 - 30 mmol/L 23 Anion Gap 8 - 15 mmol/L 13 eGFR >=60 mL/min/1.73m? 83 Lipase 16 - 61 U/L 48 Legend: (H) High Current Outpatient Medications Medication Sig lansoprazole (PREVACID) 30 mg capsule Take 1 capsule by mouth two times a day. mirabegron (MYRBETRIQ) 50 mg Tb24 Take 1 tablet by mouth once daily. rimegepant (NURTEC ODT) 75 mg disintegrating tablet Take 1 tablet at onset of headache/migraine. Only take 1 tablet as single dose in 24 hour period. simvastatin (ZOCOR) 20 mg tablet Take 2 tablets by mouth daily at bedtime. loratadine (CLARITIN) 10 mg tablet take 1 tablet by mouth once daily ondansetron orally disintegrating (ZOFRAN ODT) 4 mg disintegrating tablet dissolve 1 tablet ON TONGUE every 8 hours if needed (more content not included)...[facility]07-17-2024 History of Present illness Narrative* Elle Parekh - 08/22/2023 11:00 AM EDT [facility] [address] [facility] [address] Dept: [phone] Dept PHYSICAL THERAPY EVALUATION Patient Name: Petar Alcocer : 1975 Date of Service: 08/22/2023 Referring Provider: Sabas Reyes DPM Visit #: 1 Diagnosis: Plantar fascial fibromatosis Pain in left foot Pain in right foot General Information Mechanism of injury: Patient presents to therapy s/p unknown left LE surgery on May 17 with bilateral heel pain. Patient reports that the surgery was to relieve pressure in her heel, and she has no restrictions from surgery. Referral does not include any precautions or information on the surgery. She states that she wore a boot for a month after surgery, but has not worn it since. She reportsthat she continues to experience pressure and pain mainly in her left heel but also occasionally onher right. Prior to the surgery, she had been having issues with heel pain for 8 months. 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 PSHX: Petar has no past surgical history on file. Have you experienced any anxiety or depression?: No Have you experienced thoughts of self-harm or suicidal thoughts?: No Social Determinates of Health Reviewed: Yes Physician follow-up appointment?: Yes, September 17 at 8:40am Subjective Chief Complaint: Bilateral heel pain Pain: Current: 0/10 Best: 0/10 Worst: 100/10 Pain location: wrapping around heels bilaterally, mainly on the left Numbness and Tingling: yes bilaterally, only in heels Symptoms Aggravated by: standing, having her feet up while sitting Symptoms Relieved by: sitting, ice, epsom salt baths, massage Prior Level of Function: no limitations prior to onset of pain Current Level of Function: limitations with standing >1 min with even weight dispersement, stairnegotiation, kneeling, cleaning Patient s Stated Goal: To figure out a good way to relieve some pain Outcome Measures Foot and Ankle Ability Measure (FAAM): 08/22/2023: Objective ANKLE Observation: incisions on dorsal side of foot and around fibular head on left LE are intact and without redness Gait: Antalgic gait favoring the right Transfers: Sit<>stand favoring right side Hip & Knee AROM: WFL Date Recorded: 08/22/2023 Ankle ROM Right Left AROM AROM Ankle Dorsiflexion (DF) 9 7 Ankle Plantarflexion (PF) 49 28 Inversion 22 24 Eversion 22 12 08/22/2023 Lower Extremity Strength Right Left Knee Extension 5-/5* 4+/5 Knee Flexion 5-/5 5-/5 * Ankle Dorsiflexion (DF) 5/5 5/5 Ankle Plantarflexion (PF) 5/5 5/5 Inversion 5/5 5/5 * Eversion 5/5 5/5 * Great Toe Extension 5/5 4+/5 * Palpation: tenderness to palpation around left heel on plantar aspect and at fibular head Assessment Star is a 48 y.o. patient who presents to therapy with bilateral heel pain and is s/p unknown left LE surgery. She demonstrated deficits in left great toe extension, knee flexion and extension strength, limited ankle dorsiflexion AROM bilaterally, limited left ankle plantar flexion AROM, and limited left ankle eversion AROM. Patient would benefit form skilled physical therapy to address above deficits to reduce limitations with standing, kneeling, cleaning, and stair negotiation. An HEP was initiated, instructed, and issued to the patient. Plan of care was discussed with the patient, and she will schedule appointments following insurance approval of visits. Evaluation complexity is low secondary to: patient has 1-2 personal factors and/or comorbidities that will affect plan of care, therapy will be addressing 1-2 elements, and clinical presentation is stable. Body Systems Affected: musculoskeletal and neuromuscular Rehab Potential: [employer] Preferences: demonstration, explanation, and performance Barriers to Rehab: chronicity Goals General/Ortho Patient will be independent with HEP. (Initiated) Start: 08/22/23 Expected End: 09/26/23 Patient will be able to ascend and descend stairs reciprocally without complaint of pain to be ableto enter her home safely. (Initiated) Start: 08/22/23 Expected End: 09/26/23 Patient will increase dorsiflexion ROM bilaterally to >/= to 15 degrees to be able to kneel without pain. (Initiated) Start: 08/22/23 Expected End: 09/26/23 Patient will increase strength in knee extension/flexion bilaterally and great toe extension on theleft to 5/5 to be able to clean her house pain free. (Initiated) Start: 08/22/23 Expected End: 09/26/23 Gait: Patient will demonstrate gait pattern with no deviations to allow her to bear weight on her left foot without pain and decreased fall risk. (Initiated) Start: 08/22/23 Expected End: 09/26/23 Functional Outcome Measure: Patient will improve FAAM score to <10/84 to be able to stand pain free during ADLs. (Initiated) Start: 08/22/23 Expected End: 09/26/23 Plan Frequency and Duration: 2/wk for 6 weeks Therapeutic Contents: client education, gait training, group therapy, home exercise program, manualtherapy techniques, neuromuscular re-education, therapeutic activities, therapeutic exercise, trigger point dry needle, and modalities as needed Home Exercise Program: Created Plan for next session: Continue to progress foot and ankle strength and ROM as appropriate. Consider adding marble grab and towel scrunches in future session. Risks and benefits were discussed with the patient and/or family, and the patient and/or family participated with the plan of care and agrees. Treatment Therapeutic Exercise Therapeutic Exercise Activity 1: Seated Calf Stretch, [id number] Therapeutic Exercise Activity 2: Seated Big Toe Extension Stretch, [id number] Therapeutic Exercise Acitivity 3: Toe Extensions, [id number] Therapeutic Exercise Activity 4: Foot Roll, 30sec ea Soft Tissue Mobilization Location: Plantar aspect of foot, calcaneus Body Position: Sitting Patient Education: HEP initiated, performed, and issued. Discussion on plan of care. Time Entry Total Treatment Time Start Time: 1105 Stop Time: 1206 Time Calculation (min): 61 min PT Evaluation Time Entry PT Evaluation (Low) Time Entry: 30 PT Therapeutic Procedures Time Entry Therapeutic Exercise Time Entry: 20 Manual Therapy Time Entry: 10 Myrtle Garcia PT documented in this [facility]07-16-2024 NoteHNO ID: [id number] Author: CAREY MORRISON LPN Service: ? Author Type: LICENSED NURSE Type: Progress Notes Filed: 08/21/2023 10:39 Note Text: ED Follow Up: Patient discharged from [facility] ED on 08/17/2023. 1. How are you feeling since your ED visit? Better Have your symptoms improved or resolved? Yes 2. Were you prescribed any medications while in the ED or advised to stop any medication? Yes - If yes, were you able to fill your prescriptions? Yes -if stopped medication, what was the medication? na 3. Were you advised to schedule a follow up appointment with your provider? Yes - If no, Do you feel like you need an appointment scheduled? Not applicable - If yes, Do you need this scheduled now or has this already been scheduled? No 4. Were you able to contact the office or christian education director provider prior to your ED visit? No 5. Is there anything else I can do for you today? [facility] 08-21-2023 NotePatient Outreach (AGFAMPLE) BRITTNEY ALCOCER ([id number]) 1975 F NFR Date Time Provider Department 08/21/23 CAREY MORRISON During your visit today, we recorded the following information about you: Carey Morrison LPN 08/21/2023 10:39 AM Signed ED Follow Up: Patient discharged from [facility] ED on 08/17/2023. 1. How are you feeling since your ED visit? Better Have your symptoms improved or resolved? Yes 2. Were you prescribed any medications while in the ED or advised to stop any medication? Yes - If yes, were you able to fill your prescriptions? Yes -if stopped medication, what was the medication? na 3. Were you advised to schedule a follow up appointment with your provider? Yes - If no, Do you feel like you need an appointment scheduled? Not applicable - If yes, Do you need this scheduled now or has this already been scheduled? No 4. Were you able to contact the office or christian education director provider prior to your ED visit? No 5. Is there anything else I can do for you today? No Allergies As of Date: 08/21/2023 Noted Allergy Reaction CITALOPRAM HYDROBROMIDE 10/27/2004 10 - Anaphylaxis Comments: TACHYCARDIA MORPHINE 01/26/2005 8 - GI Upset AMOXICILLIN 10/24/2004 8 - GI Upset 14 - Other: See Comments Comments: Makes me worse ASA (SALICYLATES) 10/27/2004 4 - Hives CHOCOLATE 10/27/2004 EFFEXOR (VENLAFAXINE HCL) 10/27/2004 11 - Vomiting NAPROXEN 02/16/2006 5 - Intolerance Comments: Depression PENICILLIN G 09/08/2021 8 - GI Upset TAPE (ADHESIVE TAPE-SILICONES) 01/27/2021 14 - Other: See Comments Comments: Rash TOMATO 12/21/2020 5 - Intolerance Comments: If cooked cant tolerate them TRAMADOL 10/24/2004 8 - GI Upset TRAZODONE 08/28/2017 1 - Mental Status Change Comments: Causes hallucinations VENLAFAXINE 12/13/2015 16 - Unknown Date Reviewed: 08/17/2023 Reviewed by: Laura Mijares, RN - Fully Assessed Prescriptions as of 08/21/2023 - omeprazole (PRILOSEC) 20 mg capsule Take 1 capsule by mouth once daily for 14 days. - dicyclomine (BENTYL) 20 mg tablet Take 1 tablet by mouth four times a day as needed for up to 7 days. - mirabegron (MYRBETRIQ) 50 mg Tb24 Take 1 tablet by mouth once daily. - rimegepant (NURTEC ODT) 75 mg disintegrating tablet Take 1 tablet at onset of headache/migraine. Only take 1 tablet as single dose in 24 hour period. - simvastatin (ZOCOR) 20 mg tablet Take 2 tablets by mouth daily at bedtime. - divalproex ER (DEPAKOTE ER) 500 mg 24 hr tablet Take 2 tablets by mouth once daily for 5 days, THEN 1 tablet once daily for 5 days. - loratadine (CLARITIN) 10 mg tablet take 1 tablet by mouth once daily - ondansetron orally disintegrating (ZOFRAN ODT) 4 mg disintegrating tablet dissolve 1 tablet ON TONGUE every 8 hours if needed for nausea OR vomiting - gabapentin (NEURONTIN) 800 mg tablet Take 1 tablet by mouth four times daily for 180 days. - lansoprazole (PREVACID) 30 mg capsule Take 1 capsule by mouth once daily. - albuterol HFA (PROVENTIL HFA, VENTOLIN HFA) 90 mcg/actuation inhaler Inhale 2 Puffs as instructed every 4 hours as needed for wheezing/shortness of breath. - MEDICATION, NON-DATABASE Marijuana for migraines Facility-Administered Medications as of 08/21/2023 - onabotulinum toxin type A 200 Units injection (BOTOX) Meds Comments as of 02/07/2014: Problem List As Of Date 08/21/2023 Noted Resolved Supervision of other normal [Z34.80] 01/26/2005 01/06/2016 CELLULITIS FINGER,PARONYCHIA/ONYCHIA [L03.019] 12/12/2005 01/06/2016 Viral warts, unspecified [B07.9] 12/12/2005 01/06/2016 VISUAL LOSS, ONE EYE NOS [H54.60] 09/17/2006 Pain in joint, lower leg [M25.569] 09/08/2011 01/06/2016 Pain in joint, pelvic region and thigh [M25.559]09/08/2011 01/06/2016 Carpal tunnel syndrome, left [G56.02] 05/09/2012 Right knee pain [M25.561] 06/30/2014 Diverticulosis of intestine without bleeding [K*11/10/2015 Amenorrhea, unspecified [N91.2] 07/20/2015 Leiomyoma of uterus, unspecified [D25.9] 10/07/2015 Major depressive disorder, single episode, unsp*06/15/2015 Pain in right shoulder [M25.511] 10/12/2015 Unspecified asthma, uncomplicated [J45.909] 06/15/2015 Gastro-esophageal reflux disease without esopha*12/13/2015 Anxiety [F41.9] 12/13/2015 Left ovarian cyst [N83.202] 12/13/2015 History of drug abuse [F19.11] 12/13/2015 History of migraine [Z86.69] 12/13/2015 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 Author Type: Technologist Type: Progress Notes Filed: 07/30/2023 10:27 Note Text: Radiology Service Progress Note PATIENT NAME: Brittney Alcocer DATE OF SERVICE: July 30, 2023 TIME: 10:27 AM PATIENT IDENTITY VERIFICATION COMPLETED USING TWO (2) IDENTIFIERS: Name and Date of confirmed by patient verbally. FALL SCREENING: Has the patient had 2 falls in the last year or 1 fall with injury or currently using an Ambulatory Assistive Device (Walker, Cane, Wheelchair, Crutches, etc.)? No PATIENT GENDER DATA: Female. status: : No status: NO. PATIENT RELEVANT IMPLANT DATA REVIEWED: Not Applicable PATIENT PRESENTS WITH AN IMPLANTABLE OR ATTACHED LOCAL FLATBED DRIVER: No RADIOLOGY DEPARTMENT: General X-ray: Exam(s) Completed: Spine X-Ray(s): Lumbar AP / LAT / L5-S1 / OBL PERIPHERAL IV DATA: Not applicable SIGNED BY: RT Marilee(R) July 30, 2023 10:27 [facility]06-24-2024 NoteHNO ID: [id number] Author: CRISTOBAL OTOOLE APRN.GASOLINE LOCOMOTIVE CRANE OPERATOR Service: ? Author Type: Nurse Practitioner Type: Progress Notes Filed: 08/04/2023 23:34 Note Text: Subjective Brittney Alcocer is a 48 year old female here today for follow-up cholesterol, back pain. I reviewed past medical, surgical, social, and family histories today and updated chart. Allergies, chronic medications, and supplements were also reviewed. 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 Had to rest her left foot Bladder - doing good on Myrbetriq and needs a refill Was having incomplete bladder emptying and incontinence Urologist - Lindsey Fletcher, follow-up every 6 months now Cholesterol - Diet is not the best - father in law makes a lot of meatloaf with gravy, potatoes Was unable to tolerate the rosuvastatin, atorvastatin, pravastatin, lofibra due to nausea Levels were elevated last visit and simvastatin started, she is taking it and no issues so far Had a little diarrhea at the beginning but that resolved RLS - ran out of mirapex about 1 year ago and is doing okay without it Migraines - goes into the hospital and they give her a cocktail of benadryl, zofran, depakote. 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 SYNDROME Unspecified asthma(493.90) occasional inhaler Urinary calculus, unspecified 12/2005 Renal stones: left kidney per CT PAST SURGICAL HISTORY Procedure Laterality Date BLADDER SURGERY HX 08/02/2020 Cystoscopy and Sling CARPAL TUNNEL Left 10/12/2016 Dr. Conner DELIVERY ONLY 1994 , low cervical DELIVERY ONLY 07/26/2005 , low cervical CHOLECYSTECTOMY 1995 COLONOSCOPY 09/03/2017 D. Evangelista. NORMAL. Repeat in 10 years. DILATION AND CURETTAGE DXAND/THER NONOBSTETRIC 2015 Dilation AND curettage X 2 EGD 02/25/2010 Abnormal LES, esophagitis, antral ulcers, retained fluid in stomach, pos H Pylori EGD 04/14/2008 antral gastritis, neg h Pylori EGD W/O [facility] SPEC VARICIES INJ 2021 EGD W/O [facility] SPEC VARICIES INJ 06/29/2021 LAPAROSCOPY SURG CHOLECYSTECTOMY PAST SURGICAL HISTORY OF 2006 REMOVAL OF FATTY TUMOR FROM R ARM PAST SURGICAL HISTORY OF 2007 Carpal Tunnel Surgery on right wrist PAST SURGICAL HISTORY OF 09/27/2012 left wrist carpal tunnel release PAST SURGICAL HISTORY OF Right 2017 partial nephrectomy VAGINAL HYSTERECTOMY 12/24/2019 WART REMOVAL WHI Right 09/03/2018 Removal of wart on third finger right hand - Dr. Herrera ALLERGIES Citalopram Hydrobromide, Morphine, Amoxicillin, Asa [Salicylates], Chocolate, Effexor [Venlafaxine Hcl], Naproxen, Penicillin G, Tape [Adhesive Tape-Silicones], Tomato, Tramadol, Trazodone, and Venlafaxine MEDICATIONS rimegepant (NURTEC ODT) 75 mg disintegrating tabletTake 1 tablet at onset of headache/migraine. Only take 1 tablet as single dose in 24 hour period.Disp: 8 tabletRfl: 11 loratadine (CLARITIN) 10 mg tablettake 1 tablet by mouth once dailyDisp: 28 tabletRfl: 11 ondansetron orally disintegrating (ZOFRAN ODT) 4 mg disintegrating tabletdissolve 1 tablet ON TONGUE every 8 hours if needed for nausea OR vomitingDisp: 20 tabletRfl: 5 gabapentin (NEURONTIN) 800 mg tabletTake 1 tablet by mouth four times daily for 180 days.Disp: 120 tabletRfl: 5 lansoprazole (PREVACID) 30 mg capsuleTake 1 capsule by mouth once daily.Disp: 90 capsuleRfl: 3 (Patient taking differently: Take 30 mg by mouth every morning.) pramipexole 0.75 mg tabletTake 1 tablet by mouth at bedtime as needed. take 1 tablet by mouth once daily at bedtimeDisp: Rfl: MEDICATION, NON-DATABASEMarijuana for migrainesDisp: Rfl: simvastatin (ZOCOR) 20 mg tabletTake 2 tablets by mouth daily at bedtime.Disp: 180 tabletRfl: 3 (Patient not taking: Reported on 07/30/2023) divalproex ER (DEPAKOTE ER) 500 mg 24 hr tabletTake 2 tablets by mouth once daily for 5 (more content not included)...[facility]06-14-2024 NoteHNO ID: [id number] Author: PAULINO RAE PA-C Service: ? Author Type: Physician Container Shop Welder Type: Progress Notes Filed: 07/20/2023 16:46 Note Text: [facility] Note Subjective: Brittney Alcocer is a 48 year old year old female, with a history of chronic migraine, stroke, chronic pain syndrome, TMJD, concussion, peptic ulcer, hypothyroid, asthma, pelvic pain, renal stones and insomnia following up today for day 3 of infusions. Therapy Plan: NON-DHE: 1 L NS, mag 1 g, robaxin, depacon New health conditions since orders were placed: no Cardiovascular risk factors (KS/STROKE/CAD/HTN): hx CVA Last triptan dose: n/a- on Nurtec Last muscle relaxer dose: n/a Last NSAID dose: n/a- not receiving toradol Response to infusions: tolerating D1:rating pain 8/10 with mild nausea and no dizziness. D2:Rated pain 4/10 with mild nausea at end of infusion. D3: Rated pain 4/10 Current Preventative: Botox, gabapentin Current Abortive: Nurtec, zofran Labs: Latest Ref Rng AND Units 03/27/2023 CBC WBC 3.70 - 11.00 k/uL 5.51 RBC 3.90 - 5.20 m/uL 4.44 Hemoglobin 11.5 - 15.5 g/dL 14.6 Hematocrit 36.0 - 46.0 % 43.5 MCV 80.0 - 100.0 fL 98.0 MCH 26.0 - 34.0 pg 32.9 MCHC 30.5 - 36.0 g/dL 33.6 RDW-CV 11.5 - 15.0 % 12.8 Platelet Count 150 - 400 k/uL 250 MPV 9.0 - 12.7 fL 9.8 Latest Ref Rng AND Units 03/27/2023 CMP Sodium 136 - 144 mmol/L 142 Potassium 3.7 - 5.1 mmol/L 4.1 Chloride 97 - 105 mmol/L 108 CO2 22 - 30 mmol/L 24 Glucose 74 - 99 mg/dL 108 BUN 7 - 21 mg/dL 17 Creatinine 0.58 - 0.96 mg/dL 0.76 EGFR >=60 mL/min/1.73m? 97 Protein, Total 6.3 - 8.0 g/dL 7.1 Albumin 3.9 - 4.9 g/dL 4.3 Calcium 8.5 - 10.2 mg/dL 9.2 Bilirubin, Total 0.2 - 1.3 mg/dL 0.5 AST 13 - 35 U/L 14 ALT 7 - 38 U/L 19 Alkaline Phosphatase 34 - 123 U/L 108 ALLERGIES Allergen Reactions Citalopram Hydrobro* Anaphylaxis TACHYCARDIA Morphine GI Upset Amoxicillin GI Upset, Other: See Comments Makes me worse Asa [Salicylates] Hives Chocolate Effexor [Venlafaxin* Vomiting Naproxen Intolerance Depression Penicillin G GI Upset Tape [Adhesive Tape* Other: See Comments Rash Tomato Intolerance If cooked cant tolerate them Tramadol GI Upset Trazodone Mental Status Change Causes hallucinations Venlafaxine Unknown Current Medications: simvastatin (ZOCOR) 20 mg tabletTake 2 tablets by mouth daily at bedtime.Disp: 180 tabletRfl: 3 divalproex ER (DEPAKOTE ER) 500 mg 24 hr tabletTake 2 tablets by mouth once daily for 5 days, THEN 1 tablet once daily for 5 days.Disp: 15 tabletRfl: 0 mirabegron (MYRBETRIQ) 50 mg [id number] 1 tablet by mouth once daily.Disp: 30 tabletRfl: 11 loratadine (CLARITIN) 10 mg tablettake 1 tablet by mouth once dailyDisp: 28 tabletRfl: 11 ondansetron orally disintegrating (ZOFRAN ODT) 4 mg disintegrating tabletdissolve 1 tablet ON TONGUE every 8 hours if needed for nausea OR vomitingDisp: 20 tabletRfl: 5 rimegepant (NURTEC ODT) 75 mg disintegrating tabletTake 1 tablet at onset of headache/migraine. Only take 1 tablet as single dose in 24 hour period.Disp: 16 tabletRfl: 11 gabapentin (NEURONTIN) 800 mg tabletTake 1 tablet by mouth four times daily for 180 days.Disp: 120 tabletRfl: 5 lansoprazole (PREVACID) 30 mg capsuleTake 1 capsule by mouth once daily.Disp: 90 capsuleRfl: 3 (Patient taking differently: Take 30 mg by mouth every morning.) oxybutynin XL (DITROPAN XL) 5 mg 24 hr tablettake 1 tablet by mouth once dailyDisp: 30 tabletRfl: 3 (Patient taking differently: Take 5 mg by mouth every evening.) albuterol HFA (PROVENTIL HFA, VENTOLIN HFA) 90 mcg/actuation inhalerInhale 2 Puffs as instructed every 4 hours as needed for wheezing/shortness of breath.Disp: 18 gRfl: 5 pramipexole 0.75 mg tabletTake 1 tablet by mouth at bedtime as needed. take 1 tablet by mouth once daily at bedtimeDisp: Rfl: MEDICATION, NON-DATABASEMarijuana for migrainesDisp: Rfl: Review of Systems: Review of system : unchanged from the previous visit (sleep patterns, mood, energy, appetite, stress, exercising). Objective: VS: see infusion note for vital signs General: well appearing, in no acute distress, alert Lungs: normal breath sounds bilaterally CV: RRR, normal S1, S2 auscultated, no murmurs, and no JVD GI: Bowel sounds present in all four quadrants. Neurological: Pain Behaviors: no pain behaviors observed Mental Status: Alert and oriented to person, place and time. Affect is normal and appropriate. Speech is spontaneous and fluent without dysarthria, normal in rate, volume and articulation, and clear, coherent, and relevant. 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 Attention span and concentration are good. Cranial Nerves: VII-face is symmetric without evidence of weakness. VIII-hearing intact. Assessment: Status migrainosus (primary encounter diagnosis) Intractable chronic migraine without aura a (more content not included)... [facility]06-14-2024 NoteHNO ID: [id number] Author: WM BARR RN Service: ? Author Type: Registered Nurse Type: Progress Notes Filed: 07/20/2023 10:36 Note Text: Pt in for 3rd day of H/A Infusion. Pt rated headache 5/10. Pt has no nausea and no dizziness. Educated pt on medications to be administered. Pt agreed to proceed as ordered. Patient has commercial front load driver today. Pt would like prn Zofran prior to start of infusion, as pt reports infusion medications make her nauseous. 2nd dose of prn Zofran given for mild nausea. Pts infusion complete, tolerated infusion. Headache 5/10. Pt stated no nausea and no dizziness. Pt discharged from txt room at 1024.[facility] 07-19-2023 NoteHNO ID: [id number] Author: YENNY SOLORIO, USHA Service: ? Author Type: Registered Nurse Type: Progress Notes Filed: 07/19/2023 10:29 Note Text: Patient arrived to infusion suite rating pain 4/10 with no nausea/dizziness. Patient educated on medications to be administered per therapy plan and verbally agreed to proceed as ordered. Zofran given for nausea, benadryl given for sleep. Patient tolerated infusion well. Rated pain 4/10 with mild nausea at end of infusion. Sent home with commercial front load driver.[facility]06-12-2024 NoteHNO ID: [id number] Author: ELENA NAYLOR APRN.ERENDIRA Service: ? Author Type: Nurse Practitioner Type: Progress Notes Filed: 07/18/2023 08:45 Note Text: [facility] Note Subjective: Brittney Alcocer is a 48 year old year old female, with a history of chronic migraine, stroke, chronic pain syndrome, TMJD, concussion, peptic ulcer, hypothyroid, asthma, pelvic pain, renal stones and insomnia following up today for day 1 of infusions. Therapy Plan: NON-DHE: 1 L NS, mag 1 g, robaxin, depacon New health conditions since orders were placed: no Cardiovascular risk factors (KS/STROKE/CAD/HTN): hx CVA Last triptan dose: n/a- on Nurtec Last muscle relaxer dose: n/a Last NSAID dose: n/a- not receiving toradol Response to infusions: tolerating Current Preventative: Botox, gabapentin Current Abortive: Nurtec, zofran Labs: Latest Ref Rng AND Units 03/27/2023 CBC WBC 3.70 - 11.00 k/uL 5.51 RBC 3.90 - 5.20 m/uL 4.44 Hemoglobin 11.5 - 15.5 g/dL 14.6 Hematocrit 36.0 - 46.0 % 43.5 MCV 80.0 - 100.0 fL 98.0 MCH 26.0 - 34.0 pg 32.9 MCHC 30.5 - 36.0 g/dL 33.6 RDW-CV 11.5 - 15.0 % 12.8 Platelet Count 150 - 400 k/uL 250 MPV 9.0 - 12.7 fL 9.8 Latest Ref Rng AND Units 03/27/2023 CMP Sodium 136 - 144 mmol/L 142 Potassium 3.7 - 5.1 mmol/L 4.1 Chloride 97 - 105 mmol/L 108 CO2 22 - 30 mmol/L 24 Glucose 74 - 99 mg/dL 108 BUN 7 - 21 mg/dL 17 Creatinine 0.58 - 0.96 mg/dL 0.76 EGFR >=60 mL/min/1.73m? 97 Protein, Total 6.3 - 8.0 g/dL 7.1 Albumin 3.9 - 4.9 g/dL 4.3 Calcium 8.5 - 10.2 mg/dL 9.2 Bilirubin, Total 0.2 - 1.3 mg/dL 0.5 AST 13 - 35 U/L 14 ALT 7 - 38 U/L 19 Alkaline Phosphatase 34 - 123 U/L 108 ALLERGIES Allergen Reactions Citalopram Hydrobro* Anaphylaxis TACHYCARDIA Morphine GI Upset Amoxicillin GI Upset, Other: See Comments Makes me worse Asa [Salicylates] Hives Chocolate Effexor [Venlafaxin* Vomiting Naproxen Intolerance Depression Penicillin G GI Upset Tape [Adhesive Tape* Other: See Comments Rash Tomato Intolerance If cooked cant tolerate them Tramadol GI Upset Trazodone Mental Status Change Causes hallucinations Venlafaxine Unknown Current Medications: simvastatin (ZOCOR) 20 mg tabletTake 2 tablets by mouth daily at bedtime.Disp: 180 tabletRfl: 3 divalproex ER (DEPAKOTE ER) 500 mg 24 hr tabletTake 2 tablets by mouth once daily for 5 days, THEN 1 tablet once daily for 5 days.Disp: 15 tabletRfl: 0 mirabegron (MYRBETRIQ) 50 mg [id number] 1 tablet by mouth once daily.Disp: 30 tabletRfl: 11 loratadine (CLARITIN) 10 mg tablettake 1 tablet by mouth once dailyDisp: 28 tabletRfl: 11 ondansetron orally disintegrating (ZOFRAN ODT) 4 mg disintegrating tabletdissolve 1 tablet ON TONGUE every 8 hours if needed for nausea OR vomitingDisp: 20 tabletRfl: 5 rimegepant (NURTEC ODT) 75 mg disintegrating tabletTake 1 tablet at onset of headache/migraine. Only take 1 tablet as single dose in 24 hour period.Disp: 16 tabletRfl: 11 gabapentin (NEURONTIN) 800 mg tabletTake 1 tablet by mouth four times daily for 180 days.Disp: 120 tabletRfl: 5 lansoprazole (PREVACID) 30 mg capsuleTake 1 capsule by mouth once daily.Disp: 90 capsuleRfl: 3 (Patient taking differently: Take 30 mg by mouth every morning.) oxybutynin XL (DITROPAN XL) 5 mg 24 hr tablettake 1 tablet by mouth once dailyDisp: 30 tabletRfl: 3 (Patient taking differently: Take 5 mg by mouth every evening.) albuterol HFA (PROVENTIL HFA, VENTOLIN HFA) 90 mcg/actuation inhalerInhale 2 Puffs as instructed every 4 hours as needed for wheezing/shortness of breath.Disp: 18 gRfl: 5 pramipexole 0.75 mg tabletTake 1 tablet by mouth at bedtime as needed. take 1 tablet by mouth once daily at bedtimeDisp: Rfl: MEDICATION, NON-DATABASEMarijuana for migrainesDisp: Rfl: Review of Systems: Review of system : unchanged from the previous visit (sleep patterns, mood, energy, appetite, stress, exercising). Objective: VS: see infusion note for vital signs General: well appearing, in no acute distress, alert Neurological: Pain Behaviors: no pain behaviors observed, sleeping intermittently. Mental Status: Alert and oriented to person, place and time. Affect is normal and appropriate. Speech is spontaneous and fluent without dysarthria, normal in rate, volume and articulation, and clear, coherent, and relevant. 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 Attention span and concentration are excellent. Cranial Nerves: VII-face is symmetric without evidence of weakness. VIII-hearing intact. Assessment: Status migrainosus (primary encounter diagnosis) Plan: Brittney Alcocer is a 48 year old year old female, with a history of chronic migraine, stroke, chronic pain syndrome, TMJD, concussion, peptic ulcer, hypothyroid, asthma, pelvic pain, renal stones and insomnia following up today for day 1 of infusions. Response to infusions: tolerating (more content not included)...[facility]06-12-2024 NoteHNO ID: [id number] Author: YENNY SOLORIO RN Service: ? Author Type: Registered Nurse Type: Progress Notes Filed: 07/18/2023 10:27 Note Text: Patient arrived to infusion suite rating pain 8/10 with mild nausea and no dizziness. Patient educated on medications to be administered and verbally agreed to proceed as ordered. Zofran given for nausea, benadryl given for sleep. Senior Java Ui Developer confirmed. Patient tolerated infusion well, slept majority of the infusion period. Rated pain 4/10 at end of infusion. Denied Nausea/dizziness.[facility]04-12-2024 NoteHNO ID: [id number] Author: JUAN CARLOS DOZIER APRN.CRNA Service: Anesthesiology Author Type: Nurse Branch Banker Type: Anesthesia Procedure Notes Filed: 05/18/2023 07:56 Note Text: ANESTHESIOLOGY PROCEDURE NOTE Airway General Information Procedure Start Time/Medication Administration: 05/18/2023 7:46 AM Procedure End Time: 05/18/2023 7:48 AM Patient location during procedure: OR Timeout Performed Pre-procedure: timeout performed Consent Obtained: Yes Patient identity confirmed: arm band, care steam clean machine operator and patient Staffing Anesthesiologist: Sameer Dominguez DO FIBERLINE SUPERVISOR: Juan Carlos Dozier APRN.FIBERLINE SUPERVISOR Performed by: anesthesiologist and FIBERLINE SUPERVISOR Indications and Patient Condition Indications for airway management: anesthesia Preoxygenated: yes anesthesia circuit Patient position: sniffing Final Airway Details Final airway type: supraglottic airway Number of attempts at approach: 1 Final Supraglottic Airway: i-gel Size 4 Seal Adequate: yes SIGNATURE: Juan Carlos Dozier APRN.CRNA PATIENT NAME: Brittney Alcocer DATE: May 18, 2023 TIME: 7:55 AM CSN: [id number]04[facility] NoteHNO ID: [id number] Author: ELDER RAGLAND, USHA Service: Nursing Author Type: Registered Nurse Type: Progress Notes Filed: 05/17/2023 15:17 Note Text: PRE-PROCEDURE INSTRUCTIONS TO PREPARE FOR YOUR PROCEDURE: Your arrival time for your procedure is 0615. Do NOT eat any solid foods after MIDNIGHT the night prior to your procedure - this includes gum or mints. You can drink clear liquids* up until 0415, which is 2 hours before your arrival time. *Clear liquids = water, carbohydrate drink (sports drink that is clear or yellow in color), Ensure Pre-Surgery (given by PEAT or jazmin Diego), fruit juice without pulp (apple/cranberry), clear tea, black coffee (no cream). NO CARBONATED BEVERAGES AND NO ALCOHOL. Shower the morning of the procedure, put on clean clothes, and have clean sheets for your bed to help prevent infection after your procedure. Leave all valuables such as jewelry including rings, piercings, wallets, and purses at home. Wear comfortable, loose-fitting clothing. If you wear glasses or contacts, please bring a case. SPECIAL INSTRUCTIONS: If instructed, bring your first voided urine specimen with you. If you were provided skin preparation to use prior to your procedure, complete this as directed. If you were provided Ensure Pre-Surgery drink, you need to drink this at na. This should be consumed quickly (in less than 5 minutes, rather than sipped over time) If a bowel preparation has been ordered by your physician, it is very important to follow the bowel prep instructions or your procedure may need to be rescheduled. If you use crutches or a walker, bring them with you. If you have a home CPAP/BIPAP machine, bring it with you. If you were instructed to complete a fleets enema or bowel prep, complete as directed. Bring copy of Living Will/Power of Laminating Machine Operator. Do not smoke or chew. If you use tobacco, quit or at least cut down before surgery. Do not smoke or chew after midnight the day before your surgery. This effects bleeding, infection, healing, and so much more. Do not take any Diet or Herbal Supplements 2 weeks prior to your surgery date. Please notify your physician if there is any change in your physical condition such as a cold, cough, fever, sore throat, or skin irritation near the surgical site. Visitors under the age of 14 are restricted in the Surgery Center. UPON ARRIVAL: Access to [facility] (the [facility]) is located on [address] Steward/Stewardess Tourist Class parking is available for your convenience from 5am-5pm- there is a $5.00 charge for this service. Take the elevators directly inside the entrance to the 1st Floor Surgery Lobby. Sign in at the podium located to the left when you get off the elevators. A payment may be expected at the time of service. One visitor may come back to the preoperative area with you. The preoperative staff will be reviewing your medical history, please let them know if you prefer not to have a visitor with you during this time. Once you are ready for your procedure, two visitors at a time are permitted in your preprocedure room. PATIENT MEDICATION INSTRUCTIONS Please read below carefully for your personalized instructions. Medications: If you are on blood thinner or anticoagulants including aspirin, please confirm with your surgical team on when to stop these medications. Unless instructed differently by your surgical team, stay on all of your medications until your surgery. Pre-Surgery Med Instructions Medication Instructions cephALEXin (KEFLEX) 500 mg capsule DO NOT TAKE MORNING OF SURGERY rimegepant (NURTEC ODT) 75 mg disintegrating tablet DO NOT TAKE MORNING OF SURGERY gabapentin (NEURONTIN) 800 mg tablet Take morning of surgery with a sip of water, no other fluids ondansetron orally disintegrating (ZOFRAN ODT) 4 mg disintegrating tablet PRN if needed simvastatin (ZOCOR) 20 mg tablet lansoprazole (PREVACID) 30 mg capsule Take morning of surgery with a sip of water, no other fluids oxybutynin XL (DITROPAN XL) 5 mg 24 hr tablet albuterol HFA (PROVENTIL HFA, VENTOLIN HFA) 90 mcg/actuation inhaler Use Day of Surgery loratadine (CLARITIN) 10 mg tablet Take morning of surgery with a sip of water, no other fluids pramipexole 0.75 mg tablet MEDICATION, NON-DATABASE No MJ for 3 days preop If you have any medication changes between receiving these instructions and your surgery date, please provide this updated information with the nurse who calls you the week day prior to your surgical procedure so we can update your list and provide you with updated instructions for the morning of your procedure.[facility]04-11-2024 NoteHNO ID: [id number] Author: VALERIY MIJARES PA-C Service: ? Author Type: Physician Container Shop Welder Type: Progress Notes Filed: 05/17/2023 11:25 Note Text: Summary: DOS meds PATIENT MEDICATION INSTRUCTIONS Please read below carefully for your personalized instructions. Medications: If you are on blood thinner or anticoagulants including aspirin, please confirm with your surgical team on when to stop these medications. Unless instructed differently by your surgical team, stay on all of your medications until your surgery. Pre-Surgery Med Instructions Medication Instructions cephALEXin (KEFLEX) 500 mg capsule DO NOT TAKE MORNING OF SURGERY rimegepant (NURTEC ODT) 75 mg disintegrating tablet DO NOT TAKE MORNING OF SURGERY gabapentin (NEURONTIN) 800 mg tablet Take morning of surgery with a sip of water, no other fluids ondansetron orally disintegrating (ZOFRAN ODT) 4 mg disintegrating tablet PRN if needed simvastatin (ZOCOR) 20 mg tablet lansoprazole (PREVACID) 30 mg capsule Take morning of surgery with a sip of water, no other fluids oxybutynin XL (DITROPAN XL) 5 mg 24 hr tablet albuterol HFA (PROVENTIL HFA, VENTOLIN HFA) 90 mcg/actuation inhaler Use Day of Surgery loratadine (CLARITIN) 10 mg tablet Take morning of surgery with a sip of water, no other fluids pramipexole 0.75 mg tablet MEDICATION, NON-DATABASE No MJ for 3 days preop If you have any medication changes between receiving these instructions and your surgery date, please provide this updated information with the nurse who calls you the week day prior to your surgical procedure so we can update your list and provide you with updated instructions for the morning of your procedure.[facility]09-19-2023 NoteHNO ID: [id number] Author: Princess Berkowitz Tech Service: Radiology Author Type: Education Diagnostician Type: Progress Notes Filed: 10/24/2022 10:21 AM Note Text: Radiology Service Progress Note PATIENT NAME: Brittney Alcocer DATE OF SERVICE: October 24, 2022 TIME: 10:20 AM PATIENT IDENTITY VERIFICATION COMPLETED USING TWO (2) IDENTIFIERS: Name and Date of confirmed by patient verbally. FALL SCREENING: Has the patient had 2 falls in the last year or 1 fall with injury or currently using an Ambulatory Assistive Device (Walker, Cane, Wheelchair, Crutches, etc.)? No PATIENT GENDER DATA: Female. status: : No status: NO. PATIENT RELEVANT IMPLANT DATA REVIEWED: Not Applicable RADIOLOGY DEPARTMENT: General X-ray: Exam(s) Completed: Lower Extremity X-Ray(s): Knee, AP / Lat / Tunne / Merchant Left and Wt. Bearing PERIPHERAL IV DATA: Not applicable SIGNED BY: Jane Gayle October 24, 2022 10:20 AMOhiohealth Arthur G.[facility]. [facility], Md, Cancer [id number] Hospital Discharge instructions* Discharge Instructions* Binta Vidal MD - 05/21/2022 8:[address] on Percocet or Flexeril * Attachments The following attachments cannot be sent through Care Everywhere. * Flank Pain ED (Panamanian) documented in this [facility]04-16-2023 Emergency department Note* Irais Napier RN - 05/21/2022 6:32 PM EDT Patient called staff into the room stating her pain is 1000/10. RN attempted to medicate patient with morphine; patient stated I told you guys morphine doesn't help. RN stated that it was the patient's choice whether to do the second dose of morphine or not, and then RN would notify physician of refusal if patient did not want dose. Patient agreeable to morphine dose, patient medicated with second dose of IV medication, patient assisted with repositioning in bed. Patient denies further needs at this time, call light in reach. Irais Napier RN 05/21/22 1746 [id number] Emergency department Note* Irais Napier RN - 05/21/2022 6:32 PM EDT Patient called staff into the room stating her pain is 1000/10. RN attempted to medicate patient with morphine; patient stated I told you guys morphine doesn't help. RN stated that it was the patient's choice whether to do the second dose of morphine or not, and then RN would notify physician of refusal if patient did not want dose. Patient agreeable to morphine dose, patient medicated with second dose of IV medication, patient assisted with repositioning in bed. Patient denies further needs at this time, call light in reach. Irais Napier RN 05/21/22 1836 * Snow Bradley RN - 05/21/2022 6:21 PM EDT call center associate light-tearful, states pain to back really bad. Physician aware with no further orders. Snow Bradley RN 05/21/22 1822 * Ángel Maddox MD - 05/21/2022 5:00 PM EDT Emergency Department Encounter [facility] ED Patient: Brittney Alcocer : 1975 Date of Evaluation: 05/21/2022 ED Provider: Ángel Maddox MD Note: I wore an N95 mask and gloves during this encounter. CHIEF COMPLAINT: Flank pain HPI: Brittney Alcocer is a 47 y.o. female with PMH per EMR including CAD, tobacco use, marijuana use, reports history of prior hysterectomy, presents with concern for flank pain. Patient reports beginning this morning she has had acute sharp severe flank pain involving the left flank, nonradiating, states symptoms are worse when taking a deep breath, she denies associated fever chills, nausea vomiting, chest pain, cough, abdominal pain, dysuria hematuria frequency, numbness weakness throughout theextremities or extremity pain. Patient reports history of kidney stones and states this feels different. Patient denies recent immobilization, surgery, trauma, or travel, denies history of deep vein t hrombosis or PE, denies hemoptysis, denies history of malignancy, denies unilateral lower extremityswelling or leg pain. REVIEW OF SYSTEMS: Pertinent positives and negatives as per HPI. HISTORIES: PAST MEDICAL HISTORY: as per HPI SOCIAL HISTORY: Per EMR history of tobacco use, crack O'Guo use, marijuana use MEDICATIONS: Nursing notes and EMR reviewed ALLERGIES: Nursing notes and EMR reviewed PHYSICAL EXAM: Vital signs: reviewed General: no apparent distress, nontoxic appearing, appears mildly uncomfortable, no diaphoresis Eyes: no conjunctival injection, eyes tracking HEENT: airway patent, mucous membranes moist Cardiovascular: regular rhythm, normal rate Respiratory: non-labored breathing, breath sounds clear, no wheezing crackles or rhonchi Gastrointestinal: soft, non-distended, non-tender to deep palpation throughout Back: No tenderness to palpation throughout the back including midline thoracic lumbar spine, no rash left flank, CVA tenderness to percussion left side, no CVA tenderness to percussion right side Extremities: no obvious deformity, non edematous bilateral lower extremities, no calf tenderness, left leg in a walking boot Integumentary: warm, dry Neurologic: alert, no obvious neurologic deficits HEART SCORE History: +0 // Slightly suspicious EKG: +0 // Normal Age: +1 // 45-64 Risk Factors: +2 // 3+ risk factors or history of atherosclerotic disease Troponin: +0 // within normal limit TOTAL SCORE = 3 MEDICAL DECISION MAKING: Medications morphine sulfate (PF) injection 4 mg (4 mg IntraVENous Given 05/21/221731) ondansetron (Zofran) injection 4 mg (4 mg IntraVENous Given 05/21/221731) morphine sulfate (PF) injection 4 mg (4 mg IntraVENous Given 05/21/22 1828) Brittney Alcocer is a 47 y.o. female who presents as above, with left flank pain, worse taking a deep breath, she arrives afebrile with reassuring vitals, mildly uncomfortable, nontoxic appearing, abdominal exam benign, left CVA tenderness to percussion present, symptoms worse with taking a deep breath, discussed with patient, concern for ureterolithiasis, tract infection, lesser suspicion for an acute cardiopulmonary process including pulmonary embolism, work-up initiated to evaluate including chest x-ray, EKG, laboratory evaluation including D-dimer, CT abdomen pelvis, patient elects to treat symptoms with morphine, Zofran. EKG obtained, per my interpretation, notable for sinus rhythm. Troponin WNL CXR obtained, interpreted per radiologist no acute findings Labs obtained, interpreted by me, notable for no renal dysfunction, no leukocytosis, D-dimer elevated-we will obtain CTA chest CTA chest, CT abdomen pelvis pending, disposition pending remaining results of work-up, response totreatment, and reevaluation, patient will be signed out to the oncoming provider. Comment: Please note this report has been produced using speech recognition software and may contain errors related to that system including errors in grammar, punctuation, and spelling, as well as words and phrases that may be inappropriate. If there are any questions or concerns please feel free to contact the dictating provider for clarification. Ángel Maddox MD [facility] Ángel Maddox MD 05/21/22 1837 * Binta Vidal MD - 05/21/2022 5:00 PM EDT I received signout from Dr. Maddox at 7 PM. Patient presents with left flank pain. CTA of the chest and CT abdomen pelvis is pending. I reviewed the results at approximately 7:18 PM. She has nonobstructing calculus within the left kidney, scarring and calcification along the lateral aspect of the right kidney, and no acute inflammatory process within the abdomen pelvis. CTA of the chest showsno PE or other acute findings. I will add a UA as this is left leg pain and pyelonephritis is a possibility especially given the negative CT results. I note nursing notes mention that the patient had been experiencing severe pain and was treated with morphine. However I do not find an emergent explanation for her symptoms. She says that the pain is positional and that she still is in pain and she had been doing some heavy lifting yesterday and Ithink the pain is musculoskeletal in nature. We will treat accordingly. She states that she cannot tolerate naproxen and is anaphylactic to it. I reviewed her PDMP noting that she gets regular gabapentin prescriptions. I will prescribe a few tablets of percocet, flexeril and lidocaine patches. I discussed with her follow up plan with PCP and ED return precautions. Significant other at bedside to drive her home. Binta Vidal MD 05/21/222022 * Danette Fitch RN - 05/21/2022 5:00 PM EDT Patient continues to complain of pain. VS WNL. Dr. Vidal notified and at bedside discussing results and POC. Danette Fitch RN 05/21/222011 documented in this [place] [id number] Emergency department Note* Snow Bradley RN - 05/21/2022 6:21 PM EDT call center associate light-tearful, states pain to back really bad. Physician aware with no further orders. Snow Bradley RN 05/21/221821 [id number] Emergency department Note* Danette Fitch RN - 05/21/2022 5:00 PM EDT Patient continues to complain of pain. VS WNL. Dr. Vidal notified and at bedside discussing results and POC. Danette Fitch RN 05/21/222011 [id number] Physician Emergency department Note* Ángel Maddox MD - 05/21/2022 5:00 PM EDT Emergency Department Encounter [facility] ED Patient: Brittney Alcocer : 1975 Date of Evaluation: 05/21/2022 ED Provider: Ángel Maddox MD Note: I wore an N95 mask and gloves during this encounter. CHIEF COMPLAINT: Flank pain HPI: Brittney Alcocer is a 47 y.o. female with PMH per EMR including CAD, tobacco use, marijuana use, reports history of prior hysterectomy, presents with concern for flank pain. Patient reports beginning this morning she has had acute sharp severe flank pain involving the left flank, nonradiating, states symptoms are worse when taking a deep breath, she denies associated fever chills, nausea vomiting, chest pain, cough, abdominal pain, dysuria hematuria frequency, numbness weakness throughout theextremities or extremity pain. Patient reports history of kidney stones and states this feels different. Patient denies recent immobilization, surgery, trauma, or travel, denies history of deep vein t hrombosis or PE, denies hemoptysis, denies history of malignancy, denies unilateral lower extremityswelling or leg pain. REVIEW OF SYSTEMS: Pertinent positives and negatives as per HPI. HISTORIES: PAST MEDICAL HISTORY: as per HPI SOCIAL HISTORY: Per EMR history of tobacco use, crack O'Guo use, marijuana use MEDICATIONS: Nursing notes and EMR reviewed ALLERGIES: Nursing notes and EMR reviewed PHYSICAL EXAM: Vital signs: reviewed General: no apparent distress, nontoxic appearing, appears mildly uncomfortable, no diaphoresis Eyes: no conjunctival injection, eyes tracking HEENT: airway patent, mucous membranes moist Cardiovascular: regular rhythm, normal rate Respiratory: non-labored breathing, breath sounds clear, no wheezing crackles or rhonchi Gastrointestinal: soft, non-distended, non-tender to deep palpation throughout Back: No tenderness to palpation throughout the back including midline thoracic lumbar spine, no rash left flank, CVA tenderness to percussion left side, no CVA tenderness to percussion right side Extremities: no obvious deformity, non edematous bilateral lower extremities, no calf tenderness, left leg in a walking boot Integumentary: warm, dry Neurologic: alert, no obvious neurologic deficits HEART SCORE History: +0 // Slightly suspicious EKG: +0 // Normal Age: +1 // 45-64 Risk Factors: +2 // 3+ risk factors or history of atherosclerotic disease Troponin: +0 // within normal limit TOTAL SCORE = 3 MEDICAL DECISION MAKING: Medications morphine sulfate (PF) injection 4 mg (4 mg IntraVENous Given 05/21/22 3380) ondansetron (Zofran) injection 4 mg (4 mg IntraVENous Given 05/21/22 1732) morphine sulfate (PF) injection 4 mg (4 mg IntraVENous Given 05/21/22 1828) Brittney Alcocer is a 47 y.o. female who presents as above, with left flank pain, worse taking a deep breath, she arrives afebrile with reassuring vitals, mildly uncomfortable, nontoxic appearing, abdominal exam benign, left CVA tenderness to percussion present, symptoms worse with taking a deep breath, discussed with patient, concern for ureterolithiasis, tract infection, lesser suspicion for an acute cardiopulmonary process including pulmonary embolism, work-up initiated to evaluate including chest x-ray, EKG, laboratory evaluation including D-dimer, CT abdomen pelvis, patient elects to treat symptoms with morphine, Zofran. EKG obtained, per my interpretation, notable for sinus rhythm. Troponin WNL CXR obtained, interpreted per radiologist no acute findings Labs obtained, interpreted by me, notable for no renal dysfunction, no leukocytosis, D-dimer elevated-we will obtain CTA chest CTA chest, CT abdomen pelvis pending, disposition pending remaining results of work-up, response totreatment, and reevaluation, patient will be signed out to the oncoming provider. Comment: Please note this report has been produced using speech recognition software and may contain errors related to that system including errors in grammar, punctuation, and spelling, as well as words and phrases that may be inappropriate. If there are any questions or concerns please feel free to contact the dictating provider for clarification. Ángel Maddox MD [employer] Ángel Maddox MD 05/21/22 [address] [employer] Phone: [phone] 666-598304-16-2023 Physician Emergency department Note* Binta Vidal MD - 05/21/2022 5:00 PM EDT I received signout from Dr. Maddox at 7 PM. Patient presents with left flank pain. CTA of the chest and CT abdomen pelvis is pending. I reviewed the results at approximately 7:18 PM. She has nonobstructing calculus within the left kidney, scarring and calcification along the lateral aspect of the right kidney, and no acute inflammatory process within the abdomen pelvis. CTA of the chest showsno PE or other acute findings. I will add a UA as this is left leg pain and pyelonephritis is a possibility especially given the negative CT results. I note nursing notes mention that the patient had been experiencing severe pain and was treated with morphine. However I do not find an emergent explanation for her symptoms. She says that the pain is positional and that she still is in pain and she had been doing some heavy lifting yesterday and Ithink the pain is musculoskeletal in nature. We will treat accordingly. She states that she cannot tolerate naproxen and is anaphylactic to it. I reviewed her PDMP noting that she gets regular gabapentin prescriptions. I will prescribe a few tablets of percocet, flexeril and lidocaine patches. I discussed with her follow up plan with PCP and ED return precautions. Significant other at bedside to drive her home. Binta Vidal MD 05/21/222022 [id number] Emergency [facility] Note* Irais Napier RN - 04/28/2022 9:12 PM EDT Discharge instructions, follow up care, and pain management discussed with patient. All questions answered, there are no further questions at this time. IVs removed, catheters intact, site covered with dry dressing. Patient tolerated well. RN reviewed home remedies for headaches, and reviewed the need to follow up with PCP. Patient verbally acknowledged teaching. Patient ambulated off the unit with RN to the [facility], where she is awaiting a ride from her . Irais Napier RN 04/28/222112 [id number] Emergency department Note* Irais Napier RN - 04/28/2022 9:12 PM EDT Discharge instructions, follow up care, and pain management discussed with patient. All questions answered, there are no further questions at this time. IVs removed, catheters intact, site covered with dry dressing. Patient tolerated well. RN reviewed home remedies for headaches, and reviewed the need to follow up with PCP. Patient verbally acknowledged teaching. Patient ambulated off the unit with RN to the [facility], where she is awaiting a ride from her . Irais Napier RN 04/28/222112 * Orlando Membreno DO - 04/28/2022 6:44 PM EDT EMERGENCY DEPARTMENT ENCOUNTER Pt Name: Brittney Alcocer Birthdate 1975 Date of evaluation: 04/28/2022 ED Provider: Orlando Membreno DO CHIEF COMPLAINT Chief Complaint Patient presents with Migraine HISTORY OF PRESENT ILLNESS (Location/Symptom, Timing/Onset, Context/Setting, Quality, Duration, Modifying Factors, Severity) Note limiting factors. I wore appropriate PPE for the entirety of this encounter. HPI Brittney Alcocer is a 47 y.o. female who presents to the emergency department with chief complaint of headache. Located primarily in frontal region. Throbbing nature. Associated with photophobia, phonophobia, and auras. Similar to previous episode of migraines. Patient does have longstanding history of migraines and follows with neurology. Gets Botox injections and also takes gabapentin. Statesgabapentin did not help this particular headache. No recent head injury or trauma. No fever, neck pain, neck stiffness. Does note nausea but denies any vomiting, diarrhea, dysuria, rash. Nursing Notes were reviewed. Limitations to history: None Outside historians: None REVIEW OF SYSTEMS Review of Systems Pertinent positives and negatives as per HPI PAST MEDICAL HISTORY Past Medical History: Diagnosis Date Bipolar 1 disorder (HCC) History of heart attack Migraine Myocardial infarction (CMS/HCC) (HCC) PTSD (post-traumatic stress disorder) Stroke (CMS/HCC) (HCC) Tendonitis SURGICAL HISTORY History reviewed. No pertinent surgical history. CURRENT MEDICATIONS Previous Medications ATORVASTATIN CALCIUM (LIPITOR PO) Take by mouth. FAMOTIDINE (PEPCID) 10 MG TABLET Take by mouth. GABAPENTIN PO Take by mouth. LANSOPRAZOLE (PREVACID) [address] CAPSULE Take by mouth every morning (before breakfast). Do not crush or chew. LORATADINE (CLARITIN PO) Take by mouth. METHYLPREDNISOLONE (MEDROL) 4 MG TABLET Take 4 mg by mouth daily. OMEPRAZOLE PO Take by mouth. ONABOTULINUMTOXINA (BOTOX) 100 UNITS INJECTION Inject into the shoulder, thigh, or buttocks Once. RIMEGEPANT SULFATE (NURTEC) 75 MG TABLET DISPERSIBLE Take by mouth. ALLERGIES Chocolate, Citalopram, Naproxen, Acetaminophen, Amoxicillin, Codeine, Effexor [venlafaxine], Lac bovis, Morphine, Salicylates, Tramadol, Tomato, and Wound dressing adhesive FAMILY HISTORY No family history on file. SOCIAL HISTORY Social History Socioeconomic History Marital status: Tobacco Use Smoking status: Every Day Types: Cigarettes Substance and Sexual Activity Alcohol use: Not Currently Drug use: Yes Types: Marijuana Comment: History of crack cocaine use SCREENINGS PHYSICAL EXAM ED Triage Vitals [04/28/22 1901] Temp Heart Rate Resp BP 36.6 C (97.9 F) 79 18 123/67 SpO2 Temp Source Heart Rate Source Patient Position 97 % Oral Monitor Lying BP Location FiO2 (%) Right arm -- Physical Exam Vitals and nursing note reviewed. Constitutional: General: She is not in acute distress. Appearance: She is well-developed. Comments: Appears uncomfortable. Sitting in dark exam room and keeping eyes closed. HENT: Head: Normocephalic and atraumatic. Eyes: Conjunctiva/sclera: Conjunctivae normal. Cardiovascular: Rate and Rhythm: Normal rate and regular rhythm. Heart sounds: No murmur heard. Pulmonary: Effort: Pulmonary effort is normal. No respiratory distress. Breath sounds: Normal breath sounds. Abdominal: Palpations: Abdomen is soft. Tenderness: There is no abdominal tenderness. Musculoskeletal: General: No swelling. Cervical back: Neck supple. Skin: General: Skin is warm and dry. Capillary Refill: Capillary refill takes less than 2 seconds. Neurological: Mental Status: She is alert and oriented to person, place, and time. Cranial Nerves: No cranial nerve deficit. Sensory: No sensory deficit. Motor: No weakness. Coordination: Coordination normal. Gait: Gait normal. Psychiatric: Mood and Affect: Mood normal. DIAGNOSTIC RESULTS RADIOLOGY (Per Emergency Physician): Interpretation per the Radiologist below, if available at the time of this note: No orders to display LABS: Labs Reviewed - No data to display All other labs were within normal range or not returned as of this dictation. EMERGENCY DEPARTMENT COURSE and DIFFERENTIAL DIAGNOSIS/MDM: Vitals: Vitals: 04/28/22 1901 BP: 123/67 BP Location: Right arm Patient Position: Lying Pulse: 79 Resp: 18 Temp: 36.6 C (97.9 F) TempSrc: Oral SpO2: 97% Weight: 77.1 kg (170 lb) Height: 1.473 m (4' 10) Medications sodium chloride 0.9 % bolus 1,000 mL (1,000 mL IntraVENous New Bag 04/28/221932) diphenhydrAMINE (BENADryl) injection 25 mg (25 mg IntraVENous Given 04/28/221944) metoclopramide (Reglan) injection 10 mg (10 mg IntraVENous Given 04/28/221945) MDM elements: The patient presented with chief complaint of headache. The differential diagnosis associated with this patient's presentation includes migraine headache, tension headache, subarachnoid hemorrhage, meningitis. Diagnostic tests considered but not performed: CT head was considered but patient has a longstanding history of migraines which has been formally diagnosed by neurology. This is similar to her previous headaches. She is afebrile with stable vital signs and there are no focal neurologic deficits. Consideration for escalation of care with: Admission/observation was considered but patient is feeling better on reassessment. Suitable for discharge home and follow-up as outpatient with neurology. The patient will be Discharged. Patient is in agreement with this plan. FINAL IMPRESSION 1. Migraine with aura and without status migrainosus, not intractable DISPOSITION Discharge 04/28/2022 08:52:18 PM PATIENT REFERRED TO: [facility] ED [address] [place] [address] Go to As needed, If symptoms worsen Cristobal Otoole [address] [facility] [address] Schedule an appointment as soon as possible for a visit As needed, If symptoms worsen DISCHARGE MEDICATIONS: New Prescriptions No medications on file (Comment: Please note this report has been produced using speech recognition software and may contain errors related to that system including errors in grammar, punctuation, and spelling, as well as words and phrases that may be inappropriate. If there are any questions or concerns please feel freeto contact the dictating provider for clarification.) Orlando Membreno DO (electronically signed) Emergency Medicine Provider Orlando Membreno DO 04/28/222054 * Velma Beebe LPN - 04/28/2022 6:44 PM EDT Pt presents to the ED with c/o Migraine. Pt states she has a a chronic hx of migraine. Pt states she has had one all day today with no relief. Pt states she is seeing visual stars and increased pressure. Pt was able to walk back to the unit without any difficulty. Pt is currently sitting in her room with the lights off. Call light is within reach. Bed is in low position . documented in this [facility]03-24-2023 Emergency department Triage note* Velma Beebe LPN - 04/28/2022 6:44 PM EDT Pt presents to the ED with c/o Migraine. Pt states she has a a chronic hx of migraine. Pt states she has had one all day today with no relief. Pt states she is seeing visual stars and increased pressure. Pt was able to walk back to the unit without any difficulty. Pt is currently sitting in her room with the lights off. Call light is within reach. Bed is in low position . [id number] Phys[facility] Emergency department Note* Orlando Membreno DO - 04/28/2022 6:44 PM EDT EMERGENCY DEPARTMENT ENCOUNTER Pt Name: Brittney Alcocer Birthdate 1975 Date of evaluation: 04/28/2022 ED Provider: Orlando Membreno DO CHIEF COMPLAINT Chief Complaint Patient presents with Migraine HISTORY OF PRESENT ILLNESS (Location/Symptom, Timing/Onset, Context/Setting, Quality, Duration, Modifying Factors, Severity) Note limiting factors. I wore appropriate PPE for the entirety of this encounter. HPI Brittney Alcocer is a 47 y.o. female who presents to the emergency department with chief complaint of headache. Located primarily in frontal region. Throbbing nature. Associated with photophobia, phonophobia, and auras. Similar to previous episode of migraines. Patient does have longstanding history of migraines and follows with neurology. Gets Botox injections and also takes gabapentin. States gabapentin did not help this particular headache. No recent head injury or trauma. No fever, neck pain, neck stiffness. Does note nausea but denies any vomiting, diarrhea, dysuria, rash. Nursing Notes were reviewed. Limitations to history: None Outside historians: None REVIEW OF SYSTEMS Review of Systems Pertinent positives and negatives as per [facility] PAST MEDICAL HISTORY Past Medical History: Diagnosis Date Bipolar 1 disorder (HCC) History of heart attack Migraine Myocardial infarction (CMS/HCC) (HCC) PTSD (post-traumatic stress disorder) Stroke (CMS/HCC) ([facility]) Tendonitis SURGICAL HISTORY History reviewed. No pertinent surgical history. CURRENT MEDICATIONS Previous Medications ATORVASTATIN CALCIUM (LIPITOR PO) Take by mouth. FAMOTIDINE (PEPCID) 10 MG TABLET Take by mouth. GABAPENTIN PO Take by mouth. LANSOPRAZOLE (PREVACID) [address] CAPSULE Take by mouth every morning (before breakfast). Do not crush or chew. LORATADINE (CLARITIN PO) Take by mouth. METHYLPREDNISOLONE (MEDROL) 4 MG TABLET Take 4 mg by mouth daily. OMEPRAZOLE PO Take by mouth. ONABOTULINUMTOXINA (BOTOX) 100 UNITS INJECTION Inject into the shoulder, thigh, or buttocks Once. RIMEGEPANT SULFATE (NURTEC) 75 MG TABLET DISPERSIBLE Take by mouth. ALLERGIES Chocolate, Citalopram, Naproxen, Acetaminophen, Amoxicillin, Codeine, Effexor [venlafaxine], Lac bovis, Morphine, Salicylates, Tramadol, Tomato, and Wound dressing adhesive FAMILY HISTORY No family history on file. SOCIAL HISTORY Social History Socioeconomic History Marital status: Tobacco Use Smoking status: Every Day Types: Cigarettes Substance and Sexual Activity Alcohol use: Not Currently Drug use: Yes Types: Marijuana Comment: History of crack cocaine use SCREENINGS PHYSICAL EXAM ED Triage Vitals [04/28/22 1901] Temp Heart Rate Resp BP 36.6 C (97.9 F) 79 18 123/67 SpO2 Temp Source Heart Rate Source Patient Position 97 % Oral Monitor Lying BP Location FiO2 (%) Right arm -- Physical Exam Vitals and nursing note reviewed. Constitutional: General: She is not in acute distress. Appearance: She is well-developed. Comments: Appears uncomfortable. Sitting in dark exam room and keeping eyes closed. HENT: Head: Normocephalic and atraumatic. Eyes: Conjunctiva/sclera: Conjunctivae normal. Cardiovascular: Rate and Rhythm: Normal rate and regular rhythm. Heart sounds: No murmur heard. Pulmonary: Effort: Pulmonary effort is normal. No respiratory distress. Breath sounds: Normal breath sounds. Abdominal: Palpations: Abdomen is soft. Tenderness: There is no abdominal tenderness. Musculoskeletal: General: No swelling. Cervical back: Neck supple. Skin: General: Skin is warm and dry. Capillary Refill: Capillary refill takes less than 2 seconds. Neurological: Mental Status: She is alert and oriented to person, place, and time. Cranial Nerves: No cranial nerve deficit. Sensory: No sensory deficit. Motor: No weakness. Coordination: Coordination normal. Gait: Gait normal. Psychiatric: Mood and Affect: Mood normal. DIAGNOSTIC RESULTS RADIOLOGY (Per Emergency Physician): Interpretation per the Radiologist below, if available at the time of this note: No orders to display LABS: Labs Reviewed - No data to display All other labs were within normal range or not returned as of this dictation. EMERGENCY DEPARTMENT COURSE and DIFFERENTIAL DIAGNOSIS/MDM: Vitals: Vitals: 04/28/22 1901 BP: 123/67 BP Location: Right arm Patient Position: Lying Pulse: 79 Resp: 18 Temp: 36.6 C (97.9 F) TempSrc: Oral SpO2: 97% Weight: 77.1 kg (170 lb) Height: 1.473 m (4' 10) Medications sodium chloride 0.9 % bolus 1,000 mL (1,000 mL IntraVENous New Bag 04/28/221932) diphenhydrAMINE (BENADryl) injection 25 mg (25 mg IntraVENous Given 04/28/221944) metoclopramide (Reglan) injection 10 mg (10 mg IntraVENous Given 04/28/221945) MDM elements: The patient presented with chief complaint of headache. The differential diagnosis associated with this patient's presentation includes migraine headache, tension headache, subarachnoid hemorrhage, meningitis. Diagnostic tests considered but not performed: CT head was considered but patient has a longstanding history of migraines which has been formally diagnosed by neurology. This is similar to her previous headaches. She is afebrile with stable vital signs and there are no focal neurologic deficits. Consideration for escalation of care with: Admission/observation was considered but patient is feeling better on reassessment. Suitable for discharge home and follow-up as outpatient with neurology. The patient will be Discharged. Patient is in agreement with this plan. FINAL IMPRESSION 1. Migraine with aura and without status migrainosus, not intractable DISPOSITION Discharge 04/28/2022 08:52:18 PM PATIENT REFERRED TO: [facility] [address] [facility] [address] Go to As needed, If symptoms worsen Cristobal Otoole [address] [facility] [address] Schedule an appointment as soon as possible for a visit As needed, If symptoms worsen DISCHARGE MEDICATIONS: New Prescriptions No medications on file (Comment: Please note this report has been produced using speech recognition software and may contain errors related to that system including errors in grammar, punctuation, and spelling, as well as words and phrases that may be inappropriate. If there are any questions or concerns please feel freeto contact the dictating provider for clarification.) Orladno Membreno DO (electronically signed) Emergency Medicine Provider Orlando Membreno DO 04/28/222054 [employer] Phone: [phone] 989-343901-17-[address] Casas [facility] February 21, 2022 3:59pm Note Date/Time February 21, 2022 3 :24pm [facility] Medical Records Department [address] [place] [address] Emergency Department Summary 02/21/22 MR#: [id number] Acct: [id number] Name: BRITTNEY ALCOCER Rep #:[id number] : 1975 47 From: Nuno Casas MD PCP: GILA Baptiste Status:REG ER Location: ED HPI History of Present Illness Chief Complaint: Head Injury Detail of Chief Complaint: Struck left baptism area by branch with LOC, headache and visual disturbance Informant: patient Onset/Context/Timing Onset: Hours Mechanism/Context: Blunt Injury Quality of Pain: Aching Location: Left baptism region Current Severity: Moderate Maximum Severity: Severe Worsened by: Palpation Relieved by: Left temporal region Associated Symptoms Associated Symptoms: Positive for Loss of consciousness; Negative for Parasthesias, Weakness, Loss of function, Inability to ambulate or Amnesia Length of loss of consciousness: 5 minutes Narrative Narrative: Patient is a 47-year-old woman with history of migraine headaches, GERD, renal/ureterolithiasis and malignancy of kidney. The kidney surgery was done [facility]. She was seen by Dr. Sosa. Patient presently complains of headache. She complains of change in vision. She does report nausea without vomiting. She states she was cutting a tree at her sisters. A branch that was 4 cm in diameter struck her left side of the head near the baptism area. She complains of pain in that area. She denies ringing or ears decreased hearing. She denies difficulty opening closing her mouth. She denies smell alignment of her teeth. She denies difficulty breathing from her nose. She denies change in voice. Denies neck pain. She denies paresthesia, anesthesia or motor weakness. She denies trauma to her chest. She denies chest discomfort or shortness of breath. Review of prior records indicates patient was seen for prior closed head injury. She was discharged after evaluation. Tetanus Immunization: 5-10 years Prior similar symptoms: Yes Recent Illness/Hospitalization: No PFSH PFSH Medical History Carpal tunnel syndrome Depression Diverticulosis Heart attack History of kidney cancer Leiomyoma Right shoulder pain Home Medications loratadine 10 mg tablet 10 mg PO DAILY 08/27/18 [History Last Taken Unknown] omeprazole 40 mg capsule,delayed release 40 mg PO DAILY 08/27/18 [History Last Taken 09/03/18 10:00] pramipexole 0.5 mg tablet 0.5 mg PO QHS restless legs 08/27/18 [History Last Taken Unknown] albuterol sulfate 90 mcg/actuation aerosol inhaler 1 - 2 puff inhalation Q4H PRNPRN Sob &/Or Wheezing 09/02/18 [History Last Taken 12/03/18 08:00 1 - 2 PUFF] ondansetron 4 mg disintegrating tablet 8 mg PO Q12H PRN PRN Nausea 09/02/18 [History Last Taken Unknown] acetaminophen 500 mg tablet 500 mg PO PRN PRN Pain Or Fever 12/02/18 [History Last Taken Unknown] gabapentin 800 mg tablet 800 mg PO 4X/DAY 12/02/18 [History Last Taken 12/03/18 08:00 800 MG] galcanezumab-gnlm 120 mg/mL subcutaneous pen injector (Emgality Pen) 120 mg subcut UD 12/23/20 [History Last Taken Unknown] metoclopramide HCl 5 mg tablet (Reglan) 5 mg PO Q6H PRN nausea and vomiting #10 tabs 01/14/22 [Rx Last Taken Unknown] oxycodone 5 mg capsule 5 mg PO BID PRN pain 2 days #10 caps 01/14/22 [Rx Last Taken Unknown] ondansetron 4 mg disintegrating tablet 4 mg PO Q8H PRN PRN Nausea #10 tabs 02/21/22 [Rx Last Taken Unknown] Allergy/AdvReac Type Severity Reaction Status Date / Time adhesive tape Allergy Rash Verified 02/21/22 15:04 amoxicillin [Amoxicillin] Allergy Anaphylaxis Verified 02/21/22 15:04 aspirin [ASA] Allergy Other Verified 02/21/22 15:04 chocolate flavor Allergy Anaphylaxis Verified 02/21/22 15:04 citalopram hydrobromide Allergy Anaphylaxis Verified 02/21/22 15:04 [From Celexa] naproxen [From Naprosyn] Allergy Anaphylaxis Verified 02/21/22 15:04 tomato [Tomato] Allergy Rash Verified 02/21/22 15:04 venlafaxine HCl Allergy Anaphylaxis Verified 02/21/22 15:04 [From Effexor] acetaminophen AdvReac Other Verified 02/21/22 15:04 [From Tylenol-Codeine #3] codeine phosphate AdvReac Other Verified 02/21/22 15:04 [From Tylenol-Codeine #3] milk AdvReac Nausea Verified 02/21/22 15:04 morphine AdvReac Unknown Verified 02/21/22 15:04 tramadol AdvReac Other Verified 02/21/22 15:04 Surgical History history excision wart third finger right hand (~09/03/18) History of hysterectomy History of partial nephrectomy S/P section S/P excision of lipoma S/P laparoscopic cholecystectomy s/p left leg surgery Status post carpal tunnel release Social History (Updated 02/21/22 @ 15:[address] Nuno Casas MD) household members: significant other Smoking Status: Current every day smoker tobacco type: cigarettes alcohol intake: current alcohol intake frequency: a few times a week substance use type: marijuana ROS ROS ED Constitutional Constitutional ED: Denies chills, fever(s), subjective, sweats or weight loss Eyes Eyes: Reports blurry vision bilateral and other Details: She denies photophobia or loss of vision. ; Denies change in vision ENT ENT ED: Reports other Details: Additional information HPI narrative. ; Denies ear pain, rhinorrhea or sore throat Cardiovascular Cardiovascular: Denies chest pain or palpitations Respiratory/Chest Respiratory/Chest: Denies cough, dyspnea or dyspnea on exertion Gastrointestinal Gastrointestinal: Reports nausea; Denies abdominal pain or vomiting Genitourinary Genitourinary ED: Denies dysuria, hematuria or urinary frequency Musculoskeletal Musculoskeletal: Denies arthralgias, back pain, myalgias or neck pain Integumentary Denies Abrasions or rash Neurologic Neurologic: Reports headache(s); Denies paresthesias or weakness Psychiatric Psychiatric: Denies anxiety or depression Endocrine Endocrinology: Denies cold intolerance or heat intolerance Hematologic/Lymphatic Hematologic/Lymphatic: Denies easy bleeding or easy bruising EXAM Physical Exam Const Vital Signs: 02/21/22 15:04 02/21/22 15:20 Temperature 97.8 F Temperature Source Temporal Pulse Rate 84 Respiratory Rate 15 Respiratory Effort Normal Non-Labored Respiratory Depth Normal Respiratory Pattern Normal Blood Pressure 136/76 H Blood Pressure Mean 96 Pulse Ox 96 Oxygen Delivery Method Room Air Positive well nourished, well developed and obese General Appearance ED: well developed and NAD Nutritional Appearance: obese HEENT HEENT Narrative: There is pain palpation over the left baptism region. There is slight soft tissue swelling noted. There is no palpable defect. There is no clinical findings of basilar skull fracture. There is no evidence of trauma to the ears. There is no septal deviation hematoma. There is no dental trauma. Uvula is midline. There is no deviation tongue or protrusion. Eyes PERRL and EOMs intact bilaterally General Eye ED: Yes other Other Details: There is no subconjunctival hemorrhage. There is no nystagmus. There is no foot phobia. Neck full ROM Neck Narrative: There is no pain the patient anterior posterior neck and specifically midline over the spinous process of the cervical spines. She has full active range of motion with no evidence of pain hesitation etc. Chest Wall palpation of chest normal Resp normal respiratory effort and clear to auscultation bilaterally Cardio regular rhythm, S1 normal heart sound, S2 normal heart sound and no murmurs GI normal to inspection, nondistended, normoactive bowel sounds, non-tender, non-distended and no masses Palpation: soft Back/Spine normal to inspection and no thoracic nor lumbar tenderness Extremity full ROM General Extremety ED: Negative for deformity or edema General Extremity: Negative for deformity or edema Neuro oriented x3, CN's II-XII intact bilaterally, moves all extremities, no focal motor deficits, no sensory deficits noted and gait normal [place] Coma Scale: document GCS findings Spontaneous Obeys Commands Oriented 15 Deep Tendon Reflexes: Rt Triceps (C7): 2+, Lt Triceps (C7): 2+, Rt Biceps (C5, C6): 2+, Lt Biceps (C5, C6): 2+, Rt Patellar (L4): 2+, Lt Patellar (L4): 2+, Rt Ankle (S1): 2+ and Lt Ankle (S1): 2+ Deep Tendon Reflexes Back: Rt Patellar (L4): 2+, Lt Patellar (L4): 2+, Rt Ankle (S1): 2+ and Lt Ankle (S1): 2+ Plantar Reflex: Downgoing: bilateral (There is no clonus.) Psych mental status grossly normal and thought process normal Skin no rashes or lesions noted, no wounds, skin turgor normal and no jaundice MDM MDM MDM Narrative Medical decision making narrative: With history of head trauma loss of conscious 5 minutes based on the Esmeralda CThead rule and the [place] rule imaging of the head is warranted. CT of the head without contrast was ordered to evaluate for epidural hematoma in light of area of trauma, subdural hematoma, intraparenchymal contusion versus traumatic subarachnoid hemorrhage. Her symptoms could also be due to a concussion. Patient was made NPO. Review [facility] described. Also has had urologic surgery by Dr. Guillen for obstructing ureteral stone. She has had no recent hospitalizations per review of records. She is not on an antiplatelet or anticoagulant. Patient was treated with Zofran ODT for nausea. Radiography Diagnostic Testing: Clinical Impression(s) from Imaging Studies Brain CT 02/21/22 15:16 IMPRESSION: Normal unenhanced CT scan of the brain. Electronically Signed: Tyrone Dean MD at 15:52 EST , CT of the head without contrast was reviewed by me at 1548. There is no evidence of fracture, fluid in the sinuses, subdural, epidural, traumatic subarachnoid or intraparenchymal bleed. Awaiting formal read by radiologist. Discharge Plan Triage Chief Complaint: Head Injury ED Provider: Nuno Casas Dx/Rx/DC Orders Clinical Impression: Concussion with loss of consciousness <= 30 min, History of gastroesophageal reflux (GERD) Instructions: ED Concussion Prescriptions: New ondansetron [ondansetron] 4 mg tablet,disintegrating 4 mg PO Q8H PRN PRN (Reason: Nausea) Qty: 10 0RF No Action loratadine 10 mg tablet 10 mg PO DAILY omeprazole 40 mg capsule,delayed release(DR/EC) 40 mg PO DAILY pramipexole 0.5 mg tablet 0.5 mg PO QHS albuterol sulfate 1 INHALER inhaler 1 - 2 puff inhalation Q4H PRN PRN (Reason: Sob &/Or Wheezing) ondansetron 4 MG tablet 8 mg PO Q12H PRN PRN (Reason: Nausea) acetaminophen 500 MG tablet 500 mg PO PRN PRN (Reason: Pain Or Fever) gabapentin 800 MG tablet 800 mg PO 4X/DAY Emgality Pen 120 mg/mL pen injector 120 mg SUBCUT UD Label Comments: INJECT 2 ML UNDER THE SKIN ONE TIME ONLY FOR 1 DOSE. DO NOT SHAKE Rx Instructions: every two weeks metoclopramide HCl [Reglan] 5 mg tablet 5 mg PO Q6H PRN (Reason: nausea and vomiting) Qty: 10 0RF oxycodone 5 mg capsule 5 mg PO BID PRN (Reason: pain) 2 Days Qty: 10 0RF Primary Care Provider: Cristobal Otoloe NP Referrals: Cristobal Otoole NP, LOAN COUNSELOR-C [Primary Care Provider] - 10-14 Days if not better Activity Restrictions/Additional Instructions: 90-95 patient's diagnosed with concussion have resolution of symptoms in 4 to 6 weeks. The symptoms are present experience are due to the concussion. You should avoid any activity that puts her at risk for having head trauma until youare symptom-free. A prescription for nausea medicine was sent to your designated pharmacy. Disposition Disposition: Home, Self Care What to do if you have Problems For any increased pain, shortness of breath, bleeding, nausea or vomiting, chestpain, or any unexpected problems, contact your Primary Care Provider. Call [facility] ([phone]) or report to the closest Emergency Room. Call 911 if necessary. 02/21/22 4450 <Electronically signed by Nuno Casas MD> Cosigner Signature (if applicable): CC: GILA Otoole ~ Signed [facility] Work Phone: [phone] 838-298601-17-2023 Hospital Discharge instructions Additional Instructions 90-95 patient's diagnosed with concussion have resolution of symptoms in 4 to 6 weeks. The symptoms are present experience are due to the concussion. You should avoid any activity that puts her at risk for having head trauma until you are symptom-free. A prescription for nausea medicine was sent to your designated pharmacy.[facility] Work Phone: [phone]) 310-988709-22-2022 NoteHNO ID: [id number] Author: FAY Padilla Service: Radiology Author Type: Technologist Type: Progress Notes Filed: 10/27/2021 8:01 AM Note Text: Radiology Service Progress Note PATIENT NAME: Brittney Alcocer DATE OF SERVICE: October 27, 2021 TIME: 8:00 AM PATIENT IDENTITY VERIFICATION COMPLETED USING TWO (2) IDENTIFIERS: Name and Date of confirmed by patient verbally and Name and Date of confirmed by identification band. FALL SCREENING: Has the patient had 2 falls in the last year or 1 fall with injury or currently using an Ambulatory Assistive Device (Walker, Cane, Wheelchair, Crutches, etc.)? No PATIENT GENDER DATA: Female. status: : No status: NO. PATIENT RELEVANT IMPLANT DATA REVIEWED: Not Applicable RADIOLOGY DEPARTMENT: Ultrasound PERIPHERAL IV DATA: Not applicable SIGNED BY: FAY Padilla October 27, 2021 8:00 [id number] Discharge instructions Patient Education 07/13/2021 18:34:17 Headache, Unspecified Headache, Unspecified A number of things can cause headaches. The cause of your headache isn t clear. But it doesn t seemto be a sign of any serious illness. Headache affects almost everyone at some time. It is the most common reason people miss days from work or school. You could have a tension headache or a migraine headache. Stress can cause a tension headache. This can happen if you tense the muscles of your shoulders, neck, and scalp without knowing it. If this stress lasts long enough, you may develop a tension headache. It is not clear why migraines occur, but certain things called triggers can raise the risk of having a migraine attack. Migraine triggers may include emotional stress or depression, or by hormone changes during the menstrual cycle. Other triggers include control pills and other medicines, alcohol or caffeine, foods with tyramine (such as aged cheese, wine), eyestrain, weather changes, missed meals, and lack of sleep or oversleeping. Other causes of headache include: Viral illness with high fever Head injury with concussion Sinus, ear, or throat infection Dental pain and jaw joint (TMJ) pain More serious but less common causes of headache include stroke, brain hemorrhage, brain tumor, meningitis, and encephalitis. Home care Follow these tips when taking care of yourself at home: Don t drive yourself home if you were given pain medicine for your headache. Instead, have someone else drive you home. Try to sleep when you get home. You should feel much better when you wake up. Apply heat to the back of your neck to ease a neck muscle spasm. Take care of a migraine headache by putting an ice pack on your forehead or at the base of your skull. If you have nausea or vomiting, eat a light diet until your headache eases. If you have a migraine headache, use sunglasses when in the daylight or around bright indoor lighting until your symptoms get better. Bright glaring light can make this type of headache worse. Follow-up care Follow up with your healthcare provider, or as advised. Talk with your provider if you have frequent headaches. He or she can help figure out a treatment plan. By knowing the earliest signs of headache, and starting treatment right away, you may be able to stop the pain yourself. When to seek medical advice Call your healthcare provider right away if any of these occur: Your head pain suddenly gets worse after sexual intercourse or strenuous activity Your head pain doesn t get better within 24 hours You aren t able to keep liquids down (repeated vomiting) Fever of 100.4 F (38 C) or higher, or as directed by your healthcare provider Stiff neck Extreme drowsiness, confusion, or fainting Dizziness or dizziness with spinning sensation (vertigo) Weakness in an arm or leg or one side of your face You have trouble talking or seeing [phone] [employer]. [address] [place] [address]. All rights reserved. This information is not intended as a substitute for professional medical care. Always follow yourhealthcare professional's instructions. 07/13/2021 18:34:13 DIZZINESS, Unk Cause Dizziness [Uncertain Cause] Dizziness is a common symptom sometimes described as lightheadedness or feeling like you are going to faint. If it lasts for only a few seconds and is related to changes in position (such as getting up after lying or sitting for a long time), it is usually not a sign of anything serious. Dizziness that lasts for minutes to hours, or comes on for no apparent reason, may be a sign of a more serious problem (such as dehydration, a medicine reaction, disease of the heart or brain). Today's exam did not show an exact cause for your dizzy spell . Sometimes additional tests are required before a cause can be found. Therefore, it is important to follow up with your doctor if your symptoms continue. Home Care: 1) If a dizzy spell occurs and lasts more than a few seconds, lie down until it passes. If you are lying down, then you cannot hurt yourself by falling if you do faint. 2) Do not drive or operate dangerous equipment until the dizzy spells have stopped for at least 48 hours. 3) If dizzy spells occur with sudden standing, this may be a sign of mild dehydration. Drink extra fluids over the next few days. 4) If you recently started a new medicine or if you had the dose of a current medicine increased (especially blood pressure medicine), talk with the prescribing doctor about your symptoms. Dose adjustments may be needed. Follow Up with your doctor for further evaluation within the next seven days, if your symptoms continue. Get Prompt Medical Attention if any of the following occur: -- Worsening of your symptoms -- Fainting, headache or seizure -- Repeated vomiting -- Feeling like you or the room is spinning -- Chest, arm, neck, back or jaw pain -- Palpitations (the sense that your heart is fluttering or beating fast or hard) -- Shortness of breath -- Blood in vomit or stool (black or red color) -- Weakness of an arm or leg or one side of the face -- Difficulty with speech or vision [id number] [employer] [place] [address]. All rights reserved. This information is not intended as a substitute for professional medical care. Always follow yourhealthcare professional's instructions. Follow Up Care 07/13/2021 17:08:38 [facility] Address: [address] [place], [place] [id number] When:2-4 days [facility] Evaluation + Plan note No data available for this section [facility] Evaluation noteNo assessment information available [facility] Work Phone: Evaluation note* Diagnosis Flank pain- Primary Abdominal pain, unspecified site [facility] Spontaneous rupture of extensor tendons, left lower leg- Primary Short Achilles tendon (acquired), left ankle Plantar fascial fibromatosis [facility]* Diagnosis Plantar fascial fibromatosis Pain in left foot Pain in soft tissues of limb Pain in right foot Pain in soft tissues of limb documented in this encounter [facility]* Diagnosis Plantar fascial fibromatosis Pain in left foot Pain in soft tissues of limb Neuralgia and neuritis, unspecified [facility] Diagnosis Plantar fascial fibromatosis- Primary Pain in left foot Pain in soft tissues of limb [facility] Diagnosis Plantar fascial fibromatosis- Primary Pain in left foot Pain in soft tissues of limb Pain in right foot Pain in soft tissues of limb [facility] Diagnosis Plantar fascial fibromatosis- Primary Pain in left foot Pain in soft tissues of limb [facility] Diagnosis Plantar fascial fibromatosis- Primary Pain in left foot Pain in soft tissues of limb Neuralgia and neuritis, unspecified Pain in right foot Pain in soft tissues of limb [facility] Diagnosis Plantar fascial fibromatosis- Primary Pain in left foot Pain in soft tissues of limb Neuralgia and neuritis, unspecified Pain in right foot Pain in soft tissues of limb [facility] Diagnosis Plantar fascial fibromatosis- Primary Pain in left foot Pain in soft tissues of limb Pain in right foot Pain in soft tissues of limb Neuralgia and neuritis, unspecified [facility]* Diagnosis Plantar fascial fibromatosis- Primary Pain in left foot Pain in soft tissues of limb Pain in right foot Pain in soft tissues of limb Neuralgia and neuritis, unspecified [facility]* Diagnosis Plantar fascial fibromatosis- Primary Pain in left foot Pain in soft tissues of limb Pain in right foot Pain in soft tissues of limb Neuralgia and neuritis, unspecified [facility]* Diagnosis Plantar fascial fibromatosis- Primary Pain in left foot Pain in soft tissues of limb Pain in right foot Pain in soft tissues of limb [facility]* Diagnosis Plantar fascial fibromatosis- Primary Pain in left foot Pain in soft tissues of limb Pain in right foot Pain in soft tissues of limb Neuralgia and neuritis, unspecified [facility]* Diagnosis Plantar fascial fibromatosis- Primary Pain in left foot Pain in soft tissues of limb Pain in right foot Pain in soft tissues of limb Neuralgia and neuritis, unspecified [facility]* Diagnosis Plantar fascial fibromatosis- Primary [facility]* Diagnosis Plantar fascial fibromatosis- Primary Pain in left foot Pain in soft tissues of limb Pain in right foot Pain in soft tissues of limb Neuralgia and neuritis, unspecified [facility]* Diagnosis Plantar fascial fibromatosis- Primary Pain in left foot Pain in soft tissues of limb Pain in right foot Pain in soft tissues of limb Neuralgia and neuritis, unspecified [facility]* Diagnosis Neuralgia and neuritis, unspecified Pain in left foot Pain in soft tissues of limb Pain in right foot Pain in soft tissues of limb [facility]* Diagnosis Anesthesia of skin Disturbance of skin sensation Torticollis Torticollis, unspecified Pain in left shoulder [facility]* Diagnosis Anesthesia of skin- Primary Disturbance of skin sensation [facility]* Diagnosis Migraine with aura and without status migrainosus, not intractable- Primary [facility]* Diagnosis Torticollis- Primary Torticollis, unspecified Anesthesia of skin Disturbance of skin sensation documented [facility]* Diagnosis Plantar fascial fibromatosis- Primary Pain in left foot Pain in soft tissues of limb Neuralgia and neuritis, unspecified documented [facility]* Diagnosis Torticollis- Primary Torticollis, unspecified Anesthesia of skin Disturbance of skin sensation documented [facility]* Diagnosis Torticollis- Primary Torticollis, unspecified Pain in left shoulder [facility]* Diagnosis Torticollis- Primary Torticollis, unspecified Pain in left shoulder Anesthesia of skin Disturbance of skin sensation documented [facility]* Diagnosis Torticollis- Primary Torticollis, unspecified documented [facility]* Diagnosis Torticollis- Primary Torticollis, unspecified [facility]* Diagnosis Torticollis- Primary Torticollis, unspecified Anesthesia of skin Disturbance of skin sensation documented [facility]* Diagnosis Closed nondisplaced fracture of distal phalanx of left ring finger, initial encounter- Primary [facility] Diagnosis Closed displaced fracture of distal phalanx of left ring finger, initial encounter- Primary [facility]* Diagnosis Torticollis- Primary Torticollis, unspecified [facility]* Diagnosis Closed displaced fracture of distal phalanx of left ring finger with routine healing, subsequent encounter- Primary Closed displaced fracture of distal phalanx of left ring finger with routine healing, subsequent encounter Displaced fracture of distal phalanx of left ring finger, subsequent encounter for fracture with routine healing [facility]* Diagnosis Neuralgia and neuritis, unspecified Pain in left foot Pain in soft tissues of limb Pain in right foot Pain in soft tissues of limb Anesthesia of skin Disturbance of skin sensation Torticollis Torticollis, unspecified Pain in left shoulder Displaced fracture of distal phalanx of left ring finger, subsequent encounter for fracture with routine healing [facility]* Diagnosis Closed displaced fracture of distal phalanx of left ring finger with routine healing, subsequent encounter Displaced fracture of distal phalanx of left ring finger, subsequent encounter for fracture with routine healing [facility]* Diagnosis Postoperative pain- Primary Other acute postoperative pain [facility]* Diagnosis Post-op pain- Primary Other acute postoperative pain History of hand surgery Closed displaced fracture of distal phalanx of left ring finger with routine healing, subsequent encounter- Primary [facility]* Diagnosis Postoperative pain- Primary Other acute postoperative pain Closed displaced fracture of distal phalanx of left ring finger with routine healing, subsequent encounter Closed displaced fracture of distal phalanx of left ring finger with routine healing, subsequent encounter- Primary [facility]* Diagnosis Closed displaced fracture of distal phalanx of left ring finger with routine healing, subsequent encounter [facility]* Diagnosis Closed displaced fracture of distal phalanx of left ring finger with routine healing, subsequent encounter- Primary Closed displaced fracture of distal phalanx of left ring finger with routine healing, subsequent encounter [facility]* Diagnosis Closed displaced fracture of distal phalanx of left ring finger with routine healing, subsequent encounter [facility]* Diagnosis Postoperative pain- Primary Other acute postoperative pain Closed displaced fracture of distal phalanx of left ring finger with routine healing, subsequent encounter [facility]* Diagnosis Closed displaced fracture of distal phalanx of left ring finger with routine healing, subsequent encounter- Primary documented [facility]* Diagnosis Closed displaced fracture of distal phalanx of left ring finger with routine healing, subsequent encounter documented [facility]* Diagnosis Closed displaced fracture of distal phalanx of left ring finger with routine healing, subsequent encounter Closed displaced fracture of distal phalanx of left ring finger with routine healing, subsequent encounter- Primary documented [facility]* Diagnosis Closed displaced fracture of distal phalanx of left ring finger with routine healing, subsequent encounter- Primary documented [facility]* Diagnosis Closed displaced fracture of distal phalanx of left ring finger with routine healing, subsequent encounter- Primary Closed displaced fracture of distal phalanx of left ring finger with routine healing, subsequent encounter [facility]* Attachments The following attachments cannot be sent through Care Everywhere. * Home Headache Remedies (Panamanian) [facility] Attachments The following attachments cannot be sent through Care Everywhere. * Finger Fracture (Panamanian) [facility] No data available for this section [facility] Reason for referral (narrative)No reason for referral information availableWOhio[facility] Work Phone: Reason for visit Narrative* Therapy (Routine) - Authorized Specialty Diagnoses / Procedures Referred By Zee mukherjee Referred To Contact Physical Therapy Diagnoses Plantar fascial fibromatosis Pain in left foot Neuralgia and neuritis, unspecified Procedures MA OFFICE/OUTPATIENT NEW HIGH MDM 60 MINUTES Sabas Reyes, DPFlorentino [address] [place] [address] Phone: tel: fax: [facility] at [address] [place] [address] Phone: tel: fax: Referral ID Status Reason Start Date Expiration Date Visits Requested Visits Authorized [id number] Authorized Eval and Treat 10/24/2023 17 17 [facility] for visit Narrative* Hospital - Outpatient (Routine) - Closed Specialty Diagnoses / Procedures Referred By Contac t Referred To Contact Neurology Diagnoses Neuralgia and neuritis, unspecified Pain in left foot Pain in right foot Procedures Nerve conduction test with EMG Sabas Reyes, DPM [address] [place] [address] Phone: tel: fax: Referral ID Status Reason Start Date Expiration Date Visits Re quested Visits Authorized [id number] Closed 12/28/2023 12/22/2024 1 1 [facility] for visit Narrative* Therapy (Routine) - Authorized Specialty Diagnoses / Procedures Referred By Contriley t Referred To Contact Physical Therapy Diagnoses Anesthesia of skin Torticollis Pain in left shoulder Procedures MA OFFICE/OUTPATIENT [facility] 60 MINUTES Cristobal Otoole [address] [place] [id number] Phone: tel: fax: [facility] at [address] [place] [address] Phone: tel: fax: Referral ID Status Reason Start Date Expiration Date Visits Requested Visits Authorized [id number] Authorized Eval and Treat 12/31/2023 12/25/2024 30 30 [facility] for visit Narrative* Auth/Cert (Routine) Specialty Diagnoses / Procedures Referred By Contriley t Referred To Contact Diagnoses Displaced fracture of distal phalanx of left ring finger, subsequent encounter for fracture with routine healing Procedures MA PRQ SKEL FIXJ DSTL PHLNGL FX FNGR/THMB EA CLOSED REDUCTION PERCUTANEOUS PINNING LEFT RING FINGER DISTAL PHALANX FRACTURE Trent Alas MD [address] [place] [address] [place] [address] Phone: tel: fax: Referral ID Status Reason Start Date Expiration Date Visits Re quested Visits Authorized [id number] 03/27/2024 1 1 [facility] Summary Purpose Family History No Family History Records FoundNo Family History Records FoundNo Family History Records FoundNo Family History Records FoundNo Family History Records FoundNo Family History Records FoundNo Family History Records FoundNo Family History Records FoundNo Family History Records FoundNo Family History Records FoundNo Family History Records Found Advance Directives No Advanced Directives Records Found Advance Directive Response Recorded Date/ Time Advance Directives No January 10:32pm Living Will No January 14 11:54am Power of Laminating Machine Operator No January 14, 2022 11:54am Advance Directive Response Recorded Date/ Time Advance Directives No January 10:32pm Living Will No February 21 3:20pm Power of Laminating Machine Operator No February 21, 2022 3:20pm Date Activated Date Inactivated Comments 04/01/2024 7:41 AM 04/01/2024 2:07 PM Date Activated Date Inactivated Comments 04/01/2024 7:41 AM 04/01/2024 2:07 PM Advance Directive Response Recorded Date/ Time Advance Directives No January 10:32pm Advance Directive Response Recorded Date/ Time Advance Directives No January 11:32pm Chief Complaint and Reason for Visit Chief Complaint DIZZINESS, BRICENO, BACK Chief Complaint DIZZINESS, BRICENO, BACK HEAD INJURY Chief Complaint Admit Date LUMBAR SPINE February 22, 2024 7 :55am RM 3 February 22, 2024 8 :13am CERVICAL RAD March 28, 2024 6:58am Reason for Visit Admit Date Cervical radiculopathy February 21 7:55am Chief Complaint Admit Date CERVICAL RAD March 28, 2024 6:58am LUMBAR SPINE April 17, 2024 8:4 3am RM 4 April 17, 2024 9:1 7am L RING FINGER RX HERE July 10, 2024 7:3 0am Reason for Visit Admit Date Cervical radiculopathy April 17, 2024 8:43am Reason for Referral Specialty Diagnoses / Procedures Referred By Zee t Referred To Contact Physical Therapy Diagnoses Plantar fascial fibromatosis Pain in left foot Pain in right foot Procedures MA OFFICE/OUTPATIENT NEW HIGH MDM 60 MINUTES Sabas Reyes, GABBY [address] [place] [address] [facility] [address] [place] [address] Referral ID Status Reason Start Date Expiration Date Visits Requested Visits Authorized [id number] Authorized Eval and Treat 08/20/2023 13 13 Specialty Diagnoses / Procedures Referred By Contac t Referred To Contact Radiology Diagnoses Spontaneous rupture of extensor tendons, left lower leg Short Achilles tendon (acquired), left ankle Plantar fascial fibromatosis Procedures MR ankle left wo contrast Sabas Reyes, GABBY [address] [place] [address] Referral ID Status Reason Start Date Expiration Date V isits Requested Visits Authorized [id number] Pending Review 07/05/2022 01/01/2023 1 1 Additional Source Comments INFORMATION SOURCE (unrecogn ized section and content) DATE CREATED AUTHOR 08/01/2017 [facility] DATE CREATED AUTHOR AUTHOR'S ORGANIZ ATION 01/13/2018 [facility] DATE CREATED AUTHOR AUTHOR'S ORGANIZ ATION 10/22/2020 [facility] DATE CREATED AUTHOR AUTHOR'S ORGANIZ ATION 10/30/2020 [facility] DATE CREATED AUTHOR AUTHOR'S ORGANIZ ATION 09/05/2021 [facility] ([place]) DATE CREATED AUTHOR AUTHOR'S ORGANIZ ATION 10/25/2022 [facility] DATE CREATED AUTHOR AUTHOR'S ORGANIZ ATION 06/22/2023 [facility] DATE CREATED AUTHOR AUTHOR'S ORGANIZ ATION 07/15/2024 [facility] DATE CREATED AUTHOR AUTHOR'S ORGANIZ ATION 07/16/2024 [facility] DATE CREATED AUTHOR AUTHOR'S ORGANIZ ATION 07/19/2024 [facility] DATE CREATED AUTHOR AUTHOR'S ORGANIZ ATION 07/21/2024 [facility] Care Team (unrecognized sect ion and content) Team Status: Active Member Role Status Dates Cristobal Otoole LOAN COUNSELOR, LOAN COUNSELOR-C Family Provider Active Cristobal Otoole LOAN COUNSELOR, LOAN COUNSELOR-C Primary Care Provider Active Team Status: Inactive Member Role Status Dates Cristobal Otoole LOAN COUNSELOR, LOAN COUNSELOR-C Primary Care Provider Active Dr. Gladys Posadas DO Attending Provider, Emergency Pro vider Active Team Status: Inactive Member Role Status Dates Cristobal Horndelmi LOAN COUNSELOR, LOAN COUNSELOR-C Primary Care Provider Active Dr. Nuno Casas MD Emergency Provider Active Service Delivery Consultant Relationship Specialty Start Date End Date Cristobal Otoole [address] [place] [address] PCP - General 06/14/17 Service Delivery Consultant Relationship Specialty Start Date End Date Cristobal Otoole [address] [place] [address] PCP - General 06/14/17 Service Delivery Consultant Relationship Specialty Start Date End Date Cristobal Otoole [address] [place] [address] PCP - General 06/14/17 Service Delivery Consultant Relationship Specialty Start Date End Date Cristobal Otoole [address] [place] [address] PCP - General 06/14/17 Service Delivery Consultant Relationship Specialty Start Date End Date Cristobal Otoole [address] [place] [address] PCP - General 06/14/17 Service Delivery Consultant Relationship Specialty Start Date End Date Cristobal Otoole [address] [place] [address] PCP - General 06/14/17 Service Delivery Consultant Relationship Specialty Start Date End Date Cristobal Otoole [address] [place] [address] PCP - General 06/14/17 Service Delivery Consultant Relationship Specialty Start Date End Date Cristobal Otoole Chris [address] [place] [address] PCP - General 06/14/17 Service Delivery Consultant Relationship Specialty Start Date End Date Cristobal Otoole Chris [address] [place] [address] PCP - General 06/14/17 Service Delivery Consultant Relationship Specialty Start Date End Date Anthony Otoolelois Perez [address] [place] [address] PCP - General 06/14/17 Service Delivery Consultant Relationship Specialty Start Date End Date Anthony Otoolelois Perez [address] [place] [address] PCP - General 06/14/17 Service Delivery Consultant Relationship Specialty Start Date End Date Anthony Otoolelois Perez [address] [place] [address] PCP - General 06/14/17 Service Delivery Consultant Relationship Specialty Start Date End Date Anthony Otoolelois Perez [address] [place] [address] PCP - General 06/14/17 Service Delivery Consultant Relationship Specialty Start Date End Date Anthony Otoolelois Perez [address] [place] [address] PCP - General 06/14/17 Service Delivery Consultant Relationship Specialty Start Date End Date Anthony Otoolelois Perez [address] [place] [address] PCP - General 06/14/17 Service Delivery Consultant Relationship Specialty Start Date End Date TriAnthony awadCristobal C [address] [place] [address] PCP - General 06/14/17 Service Delivery Consultant Relationship Specialty Start Date End Date Anthony Otoolelois Perez [address] [place] [address] PCP - General 06/14/17 Service Delivery Consultant Relationship Specialty Start Date End Date JustinaAnthony awadCristobal C [address] [place] [address] PCP - General 06/14/17 Service Delivery Consultant Relationship Specialty Start Date End Date JustinaAnthony awadCristobal C [address] [place] [address] PCP - General 06/14/17 Service Delivery Consultant Relationship Specialty Start Date End Date XiangAnthonyCristobal C [address] [place] [address] PCP - General 06/14/17 Service Delivery Consultant Relationship Specialty Start Date End Date XiangAnthonyCristobal C [address] [place] [address] PCP - General 06/14/17 Service Delivery Consultant Relationship Specialty Start Date End Date XiangAnthonyCristobal C [address] [place] [address] PCP - General 06/14/17 Service Delivery Consultant Relationship Specialty Start Date End Date Xiang Cristobal C [address] [place] [address] PCP - General 06/14/17 Service Delivery Consultant Relationship Specialty Start Date End Date Cristobal Otoole [address] [place] [address] PCP - General 06/14/17 Service Delivery Consultant Relationship Specialty Start Date End Date Cristobal Otoole [address] [place] [address] PCP - General 06/14/17 Service Delivery Consultant Relationship Specialty Start Date End Date Cristobal Otoole [address] [place] [address] PCP - General 06/14/17 Service Delivery Consultant Relationship Specialty Start Date End Date Cristobal Otoole [address] [place] [address] PCP - General 06/14/17 Service Delivery Consultant Relationship Specialty Start Date End Date Cristobal Otoole [address] [place] [address] PCP - General 06/14/17 Service Delivery Consultant Relationship Specialty Start Date End Date Cristobal Otoole [address] [place] [address] PCP - General 06/14/17 Service Delivery Consultant Relationship Specialty Start Date End Date Cristobal Otoole [address] [place] [address] PCP - General 06/14/17 Service Delivery Consultant Relationship Specialty Start Date End Date Cristobal Otoole [address] [place] [address] PCP - General 06/14/17 Service Delivery Consultant Relationship Specialty Start Date End Date Cristobal Otoole [address] [place] [address] PCP - General 06/14/17 Team Status: Active Member Role Status Dates Cristobal Otoole LOAN COUNSELOR, LOAN COUNSELOR-C Primary Care Provider Active Team Status: Inactive Member Role Status Dates Cristobal Otoole LOAN COUNSELOR, LOAN COUNSELOR-C Primary Care Provider Active Start: February 22, 2024 End: February 22, 2024 Cristobal Otoole LOAN COUNSELOR, LOAN COUNSELOR-C Referring Provider Active Start: February 22, 2024 End: February 22, 2024 SHAHZAD Caal Attending Provider Active Star t: February 22, 2024 End: February 22, 2024 Team Status: Inactive Member Role Status Dates Cristobal Otoole LOAN COUNSELOR, LOAN COUNSELOR-C Primary Care Provider Active Start: February 22, 2024 End: February 22, 2024 Dr. Jatinder Cyr MD Attending Provider Active S tart: February 22, 2024 End: February 22, 2024 Team Status: Inactive Member Role Status Dates Cristobal Otoole LOAN COUNSELOR, LOAN COUNSELOR-C Primary Care Provider Active Start: March 28, 2024 End: March 28, 2024 SHAHZAD Caal Attending Provider Active Star t: March 28, 2024 End: March 28, 2024 SHAHZAD Caal Referring Provider Active Star t: March 28, 2024 End: March 28, 2024 Service Delivery Consultant Relationship Specialty Start Date End Date Cristobal Otoole [address] [place] [address] PCP - General 06/14/17 Team Status: Inactive Member Role Status Dates Cristobal Otoole LOAN COUNSELOR, LOAN COUNSELOR-C Primary Care Provider Active Start: April 17, 2024 End: April 17, 2024 Cristobal Otoole LOAN COUNSELOR, LOAN COUNSELOR-C Referring Provider Active Start: April 17, 2024 End: April 17, 2024 SHAHZAD Caal Attending Provider Active Star t: April 17, 2024 End: April 17, 2024 Team Status: Inactive Member Role Status Dates Cristobal Otoole LOAN COUNSELOR, LOAN COUNSELOR-C Primary Care Provider Active Start: April 17, 2024 End: April 17, 2024 Dr. Jatinder Cyr MD Attending Provider Active S tart: April 17, 2024 End: April 17, 2024 Team Status: Inactive Member Role Status Dates Cristobal Otoole LOAN COUNSELOR, LOAN COUNSELOR-C Primary Care Provider Active Start: July 10, 2024 End: July 10, 2024 WALDEMAR SOUSA Attending Provider Active Start: July 10, 2024 End: July 10, 2024 WALDEMAR SOUSA Referring Provider Active Start: July 10, 2024 End: July 10, 2024 Goals (unrecognized section and content) Goals may be documented in a n alternate section Reason for Visit (unrecogniz ed section and content) Reason Comments Chest Pain Pt c/o left sided ch est pain, worse with inspiration. Also reports dizziness. Ambulatory through triage alone. Specialty Diagnoses / Procedures Referred By Contac t Referred To Contact Physical Therapy Diagnoses Plantar fascial fibromatosis Pain in left foot Pain in right foot Procedures MA OFFICE/OUTPATIENT NEW HIGH MDM 60 MINUTES Sabas Reyes DPM [address] [place] [address] [facility] [address] [place] [address] Referral ID Status Reason Start Date Expiration Date Visits Requested Visits Authorized [id number] Authorized Eval and Treat 08/20/2023 08/14/2024 2 2 Reason Comments PT Discharge Specialty Diagnoses / Procedures Referred By Contac t Referred To Contact Physical Therapy Diagnoses Plantar fascial fibromatosis Pain in left foot Neuralgia and neuritis, unspecified Procedures MA OFFICE/OUTPATIENT NEW HIGH MDM 60 MINUTES Sabas Reyes DPM [address] [place] [address] [facility] [address] [place] [address] Referral ID Status Reason Start Date Expiration Date Visits Requested Visits Authorized [id number] Authorized Eval and Treat 10/24/2023 10/18/2024 2 2 Referral ID Status Reason Start Date Expiration Date Visits Requested Visits Authorized [id number] Authorized Eval and Treat 10/24/2023 17 17 Reason Comments Migraine Reason Comments Hand Pain Reason Comments New Patient Left ring finger inj ury Specialty Diagnoses / Procedures Referred By Zee t Referred To Contact Orthopedic Surgery Diagnoses Closed nondisplaced fracture of distal phalanx of left ring finger, initial encounter Monique Palma MD [address] [place] [address] Phone: tel: fax: [facility] [address] [place] [address] Phone: tel: fax: Referral ID Status Reason Start Date Expiration Date Visits Requested Visits Authorized [id number] Pending Review Specialty Services Required 02/22/2024 02/21/2025 1 1 Reason Comments Post-op Closed nondisplaced fracture of distal phalanx of left ring finger DOI 02/22/2024 Reason Onset Date Comments Surgery Scheduling 03/27/2024 Surgery sched uling slip Reason Onset Date Comments Post-op Problem 04/03/2024 pain Reason Comments Post-op Problem Pt relates surgery t o ring finger on her left hand on Apr 01. Pt relates pain to this hand 09/14. Pt relates she is suppose to get the wrap off her hand on April. Reason Comments Post-op closed reduction per cutaneous pinning of Left ring finger DOS 04/01/24 Reason Comments Post-op DOS 04/01/24/ Closed reduction percutaneous pinning left ring finger distal phalanx fracture Reason Comments Follow-up Left distal phalanx ring finger fx cast check Reason Comments Post-op post operative pain/ numbness and tingling / DOS 04/01/24/ Closed reduction percutaneous pinning left ring finger distal phalanx fracture Reason Comments Post-op DOS 04/01/24/ Closed reduction percutaneous pinning left ring finger distal phalanx fracture Reason Comments Follow-up DOS 04/01/24/ Closed reduction percutaneous pinning left ring finger distal phalanx fracture Scheduled Active and Recently Administ ered Medications (unrecognized section and content) Medication Order 05/19/2022 05/20/2022 05/21/2022 cyclobenzaprine (Flexeril) tablet 10 mg (COMPLETED) 10 mg, Oral, Once, On 05/21/22 at 2024, For 1 dose 2025 (Given - Provid er: Danette Fitch RN) Lidocaine 4 % patch 1 patch 1 patch, TransDERmal, Administer over 12 Hours, Daily, First dose on Sun05/21/22 at 2024, Apply patch to flank. Patch may remain in place for up to 12 hours in any 24 hour period. 2025 (Medication [place] lied - Provider: Danette Fitch RN)2030 (Due: Medication Removed - Provider: Automatic Discharge Provider - Comment: Time automatically adjusted from order being discontinued) morphine sulfate (PF) injection 4 mg (COMPLETED) 4 mg, IntraVENous, Once, On 05/21/22 at 1725, For 1 dose, If oral and IV narcotics ordered, use oral first and only use IV if oral is ineffective or cannot take oral. Do Not give oral and IV within 1 hour of each other unless specifically ordered. 1731 (Given - Provid er: Danette Fitch RN) morphine sulfate (PF) injection 4 mg (COMPLETED) 4 mg, IntraVENous, Once, On 05/21/22 at 1830, For 1 dose 1827 (Given - Provid er: Irais Napier RN) ondansetron (Zofran) injection 4 mg (COMPLETED) 4 mg, IntraVENous, Once, On Sun05/21/22 at 1725, For 1 dose 1731 (Given - Provid er: Danette Fitch RN) Scheduled Medication Order 04/26/2022 04/27/2022 04/28/2022 diphenhydrAMINE (BENADryl) injection 25 mg (COMPLETED) 25 mg, IntraVENous, Once, On Sun04/28/22 at 1920, For 1 dose 1944 (Given - Provid er: Irais Napier, USHA) metoclopramide (Reglan) injection 10 mg (COMPLETED) 10 mg, IntraVENous, Once, On Sun04/28/22 at 1920, For 1 dose 1945 (Given - Provid er: Irais Napier RN) sodium chloride 0.9 % bolus 1,000 mL (COMPLETED) 1,000 mL, IntraVENous, at 1,000 mL/hr, Administer over 1 Hours, Once, On Sun04/28/22 at 1920, For 1 dose 1932 (New Bag - Prov ider: Velma Beebe LPN)2032 (Stopped - Provider: Irais Napier, RN) Scheduled Medication Order 03/30/2024 03/31/2024 04/01/2024 acetaminophen (Tylenol) tablet 1,000 mg (COMPLETED) 1,000 mg, Oral, Once, On 04/01/24 at 0745, For 1 dose, Preprocedure, Administer 60 minutes prior to surgery. 0804 (Given - Provid er: Jossie Conner RN) clindamycin in D5W (Cleocin) IVPB 900 mg (COMPLETED) 900 mg, IntraVENous, at 50 mL/hr, Administer over 60 Minutes, Workers Compensation Administrator to O.R., On Sun04/01/24 at 0745, For 1 dose, Preprocedure, Administer within 1 hour prior to incision. premix bag, Suspected Indication (Select all that apply): Surgical Prophylaxis 0946 (Given - Provid er: Farrukh Gandhi APRN - FIBERLINE SUPERVISOR) famotidine (Pepcid) tablet 20 mg (COMPLETED)(Linked Group 1) 20 mg, Oral, Once, On e 04/01/24 at 0745, For 1 dose, Preprocedure, IV or Oral - Use PO option as first line. If unable to tolerate PO, then okay to use IV. 0805 (Given - Provid er: Jossie Conner RN) sodium chloride 0.9% (NS) flush 5-40 mL 5-40 mL, IntraVENous, Every 12 hours, First dose on 04/01/24 at 0745, Preprocedure, For Line Patency: Peripheral IV = 5 mL; Midline or Central Line = 10 mL/lumen. If following IV push medication, administer flush at same rate as the IV push. Flush volume is determined by type of infusion therapy being given. For non-viscous solutions use: Peripheral IV = 5 mL Midline or Central Line = 10 mL/lumen For viscous solutions (i.e. blood components, parenteral nutrition, contrast media, or after obtaining blood sample) use: Peripheral IV = 10 mL Midline or Central Line = 20 mL/lumen 0745 (Canceled Entry - Provider: Automatic Discharge Provider - Comment: Automatically canceled at discontinue of medication order) Continuous Medication Order 03/30/2024 03/31/2024 04/01/2024 lactated Ringer's (LR) infusion 50 mL/hr, IntraVENous, Continuous, Starting on Sun04/01/24 at 0745, Preprocedure, Upon admission to sameday - please start iv if patient does not have iv access. Use 500ml NS for patients on dialysis. 0804 (New Bag - Prov ider: Jossie Conner RN)0934 (Continued by Anesthesia - Provider: SANAM Villagomez CRNA)0945 (Paused - Provider: SANAM Villagomez CRNA - Comment: Switch to gravity)0946 (Restarted - Provider: SANAM Villagomez CRNA)1001 (Stopped - Provider: SANAM Villagomez CRNA) PRN Medication Order 03/30/2024 03/31/2024 04/01/2024 diphenhydrAMINE (BENADryl) injection 12.5 mg 12.5 mg, IntraVENous, Once PRN, itching, Starting on Sun04/01/24 at 1016, For 1 dose, Recovery (only) hydrALAZINE (Apresoline) injection 5 mg(Linked Group 2) 5 mg, IntraVENous, Every 15 min PRN, high blood pressure, for SBP greater than 160 mmHg for 2 consecutive measurements taken from different sites, Starting on Sun04/01/24 at 1016, For 2 doses, Recovery (only), PRN for SBP > 160 for 2 consecutive measurements, and if one of the following conditions is met: 1) If IV labetolol is ineffective. 2) If HR is under 60. 3) If patient has heart block, COPD or asthma. If both labetalol and hydralazine ineffective, notify anesthesia provider. HYDROmorphone (Dilaudid) injection 0.25 mg 0.25 mg, IntraVENous, Every 5 min PRN, moderate pain (4-6), Starting on Sun04/01/24 at 1016, For 4 doses, Recovery (only), For Phase I. If Phase II oral narcotics have been administered in the last 60 minutes, do not administer IV narcotics unless specifically approved by provider. HYDROmorphone (Dilaudid) injection 0.5 mg 0.5 mg, IntraVENous, Every 5 min PRN, severe pain (7-10), Starting on Sun04/01/24 at 1016, For 4 doses, Recovery (only), For Phase I. If Phase II oral narcotics have been administered in the last 60 minutes, do not administer IV narcotics unless specifically approved by provider. labetalol (Normodyne,Trandate) injection 5 mg(Linked Group 2) 5 mg, IntraVENous, Every 10 min PRN, high blood pressure, for SBP greater than 160 mmHg for 2 consecutive measurements taken from different sites., Starting on Sun04/01/24 at 1016, For 2 doses, Recovery (only), PRN for SBP >160 for 2 consecutive measurements, if HR is 60 or greater. If beta sony is contraindicated (HR less than 60, heart block, COPD or asthma) use hydralazine IV order. LORazepam (Ativan) injection 0.5 mg 0.5 mg, IntraVENous, Once PRN, for anxiety or muscle spasm., Starting on Sun04/01/24 at 1016, For 1 dose, Recovery (only), For IV doses dilute dose with 1ml NS. meperidine (Demerol) injection 12.5 mg 12.5 mg, IntraVENous, Every 5 min PRN, shivering, Starting on Sun04/01/24 at 1016, For 2 doses, Recovery (only), May give every 5 minutes to max of 25mg. Notify Anesthesia Provider before administration. ondansetron (Zofran) injection 4 mg 4 mg, IntraVENous, Once PRN, nausea, Starting on Sun04/01/24 at 1016, For 1 dose, Recovery (only), Initial antiemetic therapy. oxyCODONE (Roxicodone) immediate release tablet 10 mg (COMPLETED)(Linked Group 3) 10 mg, Oral, Every 4 hours PRN, severe pain (7-10), Starting on Sun04/01/24 at 1016, For 1 dose, Recovery (only), PHASE II 1101 (Given - Provid er: Farzana Bennett RN) sodium chloride 0.9 % bolus 500 mL 500 mL, IntraVENous, at 1,000 mL/hr, Administer over 0.5 Hours, PRN, Anti-nausea, Starting on Sun04/01/24 at 1016, Recovery (only), Indications: Anti-nausea sodium chloride 0.9 % infusion 5-250 mL/hr, IntraVENous, PRN, if patient receiving piggyback infusions and maintenance fluids are not ordered OR KVO fluids to protect IV site / prevent frequent line interruptions / long duration, Starting on Sun04/01/24 at 0741, Preprocedure, For piggyback infusion, administer at same rate as piggyback for a total of 25 mL. Enter 25 mL into dose field and piggyback rate into rate field of order. If piggyback is infusing at a rate less than 100 mL/hr, enter 25 mL into dose field and 100 mL/hr into rate field of order. For KVO fluids, enter rate of 20 mL/hr or less into rate field of order. sodium chloride 0.9% (NS) flush 5-40 mL 5-40 mL, IntraVENous, PRN, line care, After every IV line use, Starting on Sun04/01/24 at 0741, Preprocedure, For Line Patency: Peripheral IV = 5 mL; Midline or Central Line = 10 mL/lumen. If following IV push medication, administer flush at same rate as the IV push. Flush volume is determined by type of infusion therapy being given. For non-viscous solutions use: Peripheral IV = 5 mL Midline or Central Line = 10 mL/lumen For viscous solutions (i.e. blood components, parenteral nutrition, contrast media, or after obtaining blood sample) use: Peripheral IV = 10 mL Midline or Central Line = 20 mL/lumen Linked Groups Order Group 1: famotidine (Pepcid) tablet 20 mg (COMPLETED)Jump to med 20 mg, Oral, Once, On Sun04/01/24 at 0745, For 1 dose, Preprocedure, IV or Oral - Use PO option as first line. If unable to tolerate PO, then okay to use IV. Or famotidine (Pepcid) 20 mg in sodium chloride (PF) 0.9 % 10 mL injection (COMPLETED) 20 mg, IntraVENous, Administer over 2 Minutes, Once, On Sun04/01/24 at 0745, For 1 dose, Preprocedure, IV or Oral Group 2: labetalol (Normodyne,Trandate) injection 5 mgJump to med 5 mg, IntraVENous, Every 10 min PRN, high blood pressure, for SBP greater than 160 mmHg for 2 consecutive measurements taken from different sites., Starting on Sun04/01/24 at 1016, For 2 doses, Recovery (only), PRN for SBP >160 for 2 consecutive measurements, if HR is 60 or greater. If beta sony is contraindicated (HR less than 60, heart block, COPD or asthma) use hydralazine IV order. Or hydrALAZINE (Apresoline) injection 5 mgJump to med 5 mg, IntraVENous, Every 15 min PRN, high blood pressure, for SBP greater than 160 mmHg for 2 consecutive measurements taken from different sites, Starting on Sun04/01/24 at 1016, For 2 doses, Recovery (only), PRN for SBP > 160 for 2 consecutive measurements, and if one of the following conditions is met: 1) If IV labetolol is ineffective. 2) If HR is under 60. 3) If patient has heart block, COPD or asthma. If both labetalol and hydralazine ineffective, notify anesthesia provider. Group 3: oxyCODONE (Roxicodone) immediate release tablet 5 mg (COMPLETED) 5 mg, Oral, Every 4 hours PRN, moderate pain (4-6), Starting on Sun04/01/24 at 1016, For 1 dose, Recovery (only), PHASE II Or oxyCODONE (Roxicodone) immediate release tablet 10 mg (COMPLETED)Jump to med 10 mg, Oral, Every 4 hours PRN, severe pain (7-10), Starting on Sun04/01/24 at 1016, For 1 dose, Recovery (only), PHASE II Scheduled Medication Order 04/02/2024 04/03/2024 04/04/2024 acetaminophen (Tylenol) tablet 1,000 mg (COMPLETED) 1,000 mg, Oral, Once, On [facility] 04/03/24 at 2340, For 1 dose, Maximum dose of acetaminophen is 4000 mg from all sources in 24 hours. 003 (Given - Provid er: Maria Mai RN) HYDROmorphone (Dilaudid) injection 0.5 mg (COMPLETED) 0.5 mg, IntraVENous, Once, On [facility] 04/03/24 at 2020, For 1 dose, If oral and injectable narcotics ordered, use oral first and only use injectable if oral is ineffective or cannot take oral. Do Not give oral and injectable within 1 hour of each other unless specifically ordered. 2027 (Given - Provider: Renea Mendoza RN) HYDROmorphone (Dilaudid) injection 0.5 mg (COMPLETED) 0.5 mg, IntraVENous, Once, On [facility] 04/03/24 at 2120, For 1 dose, If oral and injectable narcotics ordered, use oral first and only use injectable if oral is ineffective or cannot take oral. Do Not give oral and injectable within 1 hour of each other unless specifically ordered. 2121 (Given - Provider: Renea Mendoza RN) HYDROmorphone (Dilaudid) injection 0.5 mg (COMPLETED) 0.5 mg, IntraVENous, Once, On [facility] 04/03/24 at 2245, For 1 dose, If oral and injectable narcotics ordered, use oral first and only use injectable if oral is ineffective or cannot take oral. Do Not give oral and injectable within 1 hour of each other unless specifically ordered. 2244 (Given - Provider: Renea Mendoza RN) HYDROmorphone (Dilaudid) injection 0.5 mg (COMPLETED) 0.5 mg, IntraVENous, Once, On [facility] 04/03/24 at 2340, For 1 dose, If oral and injectable narcotics ordered, use oral first and only use injectable if oral is ineffective or cannot take oral. Do Not give oral and injectable within 1 hour of each other unless specifically ordered. 0039 (Given - Provid er: Maria Mai RN) ketorolac (Toradol) injection 15 mg (COMPLETED) 15 mg, IntraVENous, Once, On [facility] 04/03/24 at 2340, For 1 dose 003 (Given - Provid er: Maria Mai RN) ondansetron (Zofran) injection 4 mg (COMPLETED) 4 mg, IntraVENous, Once, On [facility] 04/03/24 at 2015, For 1 dose 2025 (Given - Provider: Renea Mendoza RN) FOR RECORDS PERTAINING TO PATIENTS WHO ARE OR HAVE BEEN ENROLLED IN A CHEMICAL DEPENDENCY/SUBSTANCEABUSE PROGRAM, SOME INFORMATION MAY BE OMITTED. This clinical summary was aggregated from multiple sources. Caution should be exercised in using it in the provision of clinical care. This summary normalizes information from multiple sources, and as a consequence, information in this document may materially change the coding, format and clinical context of patient data. In addition, data may be omitted in some cases. CLINICAL DECISIONS SHOULD BE BASED ON THE PRIMARY CLINICAL RECORDS. [employer] [facility]. provides no warranty or guarantee of the accuracy or completeness of information in this document.
== END 2024-07-21 23:51 | disposition home or self-care (01) ==
LOC: ED 23:30
PROVIDERS: Emergency Provider Emergency Medicine; PCP Nurse Practitioner Family; Visit Provider Emergency Medicine
DX: M27.2 Inflammatory conditions of jaws (principal); S00.512A Abrasion of oral cavity, initial encounter; W26.8XXA Contact with other sharp object(s), not elsewhere classified, initial encounter; F32.A Depression, unspecified; I25.2 Old myocardial infarction; F17.210 Nicotine dependence, cigarettes, uncomplicated; Z79.899 Other long term (current) drug therapy
CPT/HCPCS: 99283

== ENCOUNTER 2024-08-22 21:18 | Emergency (ER) | payer MEDICAID, SELFPAY ==
[2024-08-22 21:20] VITALS: BP 133/77; PULSE 87; RESP 16; TEMP 37.1; O2SAT 97; BMI 39.4
[2024-08-22 21:25] VITALS: BP 133/77; PULSE 87; RESP 16; TEMP 37.1; O2SAT 97
--- NOTE | 2024-08-22 23:58 | EDS_ITS ---
HPI History of Present Illness Chief Complaint: Wound Narrative Narrative: Chief complaint and HPI: Upper mouth sore. 49-year-old female with past medical history of CAD, tobacco abuse, migraines presents for evaluation of upper mouth sore. Patient states since July she has had a sore on the roof of her mouth. She has been following with her PCP. States she has been taking Tylenol and Magic mouthwash however ran out of the Magic mouthwash. States that she has an appointment with an oral surgeon next week on the . Patient states that she has been having increased pain in the mouth sore since running out of the Magic mouthwash. She states the pain makes it difficult to swallow. She is concerned it may be infected. States it became infected in the past in which she was on antibiotics. She denies any fever, chills, nausea, vomiting. Review of systems: See HPI Medications: As listed on the chart Allergies: As listed on the chart PFSH: Per chart Vital signs: As listed on the chart. Reviewed. Physical exam: Gen: A&Ox3, NAD Head: Normocephalic, atraumatic Eyes: No sclera icterus, conjunctiva clear, PERRL, EOMI ENT: TMs clear BL, moist mucous membranes, posterior oropharynx unremarkable, uvula midline, tonsils not enlarged, no tonsillar exudates, poor dentition without dental infection, patient has a sore on the roof of her mouth-no erythema/purulent/gingivitis surrounding the sore, no tongue enlargement, tolerating secretions, no Cesar angina, normal phonation Neck: Trachea midline, No JVD, Full ROM, No meningismus no lymphadenopathy, CV: RRR, no murmurs Resp: Lungs CTA BL, no w/r/c, no stridor Musc: Full ROM, no deformity Skin: Warm, dry, no rash Neuro: Alert, oriented, grossly intact, sensation intact Psych: Cooperative, appropriate mood and affect [facility] Medical History History of kidney cancer Heart attack Right shoulder pain Depression Leiomyoma Diverticulosis Carpal tunnel syndrome Home Medications ?Medication ?Instructions ?Recorded ?Last Taken ?Type loratadine 10 mg tablet 10 mg PO DAILY 08/27/18 Unkn own History albuterol sulfate 90 mcg/actuation 1 - 2 puff inhalati on Q4H PRN PRN 09/02/18 12/03/18 08:00 History aerosol inhaler Sob &/Or Wheezing 1 - 2 PUF F ondansetron 4 mg disintegrating 8 mg PO Q12H PRN PRN N ausea 09/02/18 Unknown History tablet acetaminophen 500 mg tablet 500 mg PO PRN PRN Pain Or Fever 12/02/18 Unknown History gabapentin 800 mg tablet 800 mg PO 4X/DAY 12/02/18 08:00 History 800 MG fremanezumab-vfrm 225 mg/1.5 mL 225 mg subcut QMONTH 0 02/22/24 Unknown History subcutaneous auto-injector (Ajovy) lansoprazole 30 mg capsule,delayed 30 mg PO QDAY 02/21 Unknown History release mirabegron 50 mg tablet,extended 50 mg PO QDAY 5 Unknown History release 24 hr rimegepant 75 mg disintegrating 75 mg PO ONCE PRN 02/05 08/29 Unknown History tablet (Nurtec ODT) simvastatin 20 mg tablet 20 mg PO QDAY 02/22/24 Unkno wn History MAGIC MOUTH WASH (BMX) 180 mL 5 ml PO 4X/DAY PRN pain #180 mL 07/21/24 Unknown Rx suspension clindamycin HCl 300 mg capsule 300 mg PO 4X/DAY 10 day s #40 caps 07/21/24 Unknown Rx (Cleocin HCl) Allergy/AdvReac Type Severity Reaction Status Date / Time adhesive tape Allergy Rash Verified 08/22/24 21:20 amoxicillin (Amoxicillin) Allergy Anaphylaxis Verified 08/22/24 21:20 aspirin (ASA) Allergy Other Verified 08/22/24 21:20 chocolate flavor Allergy Anaphylaxis Verified 08/22/24 21:20 citalopram hydrobromide Allergy Anaphylaxis Verified 08/22/24 21:20 (From Celexa) naproxen (From Naprosyn) Allergy Anaphylaxis Verified 08/22/24 21:20 tomato (Tomato) Allergy Rash Verified 08/22/24 21:20 venlafaxine HCl (From Allergy Anaphylaxis Verified 08/22/24 21:20 Effexor) acetaminophen (From AdvReac Other Verified 08/22/24 21:20 Tylenol-Codeine #3) codeine phosphate (From AdvReac Other Verified 08/22/24 21:20 Tylenol-Codeine #3) milk AdvReac Nausea Verified 08/22/24 21:20 morphine AdvReac Unknown Verified 08/22/24 21:20 tramadol AdvReac Other Verified 08/22/24 21:20 Surgical History History of hysterectomy history excision wart third finger right hand (~09/03/18) s/p left leg surgery Status post carpal tunnel release History of partial nephrectomy S/P excision of lipoma S/P laparoscopic cholecystectomy S/P section Social History (Updated 07/21/24 @ 23:03 by Marie Funes) household members: significant other housing: house Smoking Status: Current every day smoker tobacco type: cigarettes alcohol intake: current alcohol intake frequency: a few times a week substance use type: marijuana EXAM Physical Exam Const Vital Signs: 08/22/24 21:20 08/22/24 21:25 Temperature 98.8 F 98.8 F Temperature Source Oral Oral Pulse Rate 87 87 Respiratory Rate 16 16 Blood Pressure 133/77 H 133/77 H Blood Pressure Mean 95 95 Pulse Ox 97 97 Oxygen Delivery Method Room Air Room Air MDM MDM MDM Narrative Medical decision making narrative: 49-year-old female with past medical history of CAD, tobacco abuse, migraines presents for evaluation of upper mouth sore. Patient states since July she has had a sore on the roof of her mouth. She has been following with her PCP. States she has been taking Tylenol and Magic mouthwash however ran out of the Magic mouthwash. States that she has an appointment with an oral surgeon next week on the . Patient states that she has been having increased pain in the mouth sore since running out of the Magic mouthwash. She states the pain makes it difficult to swallow. Denies any systemic symptoms of infection. On presentation, patient no acute distress. Vital stable other than mild hypertension. See physical exam findings. Patient has a sore located on the roof of her mouth no clinical signs of infection. EENT exam is otherwise unremarkable. I suspect her pain is secondary to the sore. She is ran out of her Magic mouthwash. Will prescribe this. At this point in time, I do not think there is any benefit to laboratory workup or imaging. She has an appointment with an oral surgeon next week. Patient was informed to keep her oral surgeon appointment. Follow-up with PCP. Will give prescription for Magic mouthwash. Return precautions explained. She confirmed understanding of plan. Impression: 1. Chronic mouth sore Discharge Plan Triage Chief Complaint: Wound ED Provider: Silas Sellers Dx/Rx/DC Orders Prescriptions: No Action loratadine 10 mg tablet 10 mg PO DAILY Nurtec ODT 75 mg tablet,disintegrating 75 mg PO ONCE PRN Rx Instructions: as a single dose mirabegron 50 mg tablet extended release 24 hr 50 mg PO QDAY Ajovy Autoinjector 225 mg/1.5 mL auto-injector 225 mg subcut QMONTH lansoprazole 30 mg capsule,delayed release(DR/EC) 30 mg PO QDAY simvastatin 20 mg tablet 20 mg PO QDAY albuterol sulfate 1 INHALER inhaler 1 - 2 puff inhalation Q4H PRN PRN (Reason: Sob &/Or Wheezing) ondansetron 4 MG tablet 8 mg PO Q12H PRN PRN (Reason: Nausea) acetaminophen 500 MG tablet 500 mg PO PRN PRN (Reason: Pain Or Fever) gabapentin 800 MG tablet 800 mg PO 4X/DAY clindamycin HCl [Cleocin HCl] 300 mg capsule 300 mg PO 4X/DAY 10 Days Qty: 40 0RF MAGIC MOUTH WASH (BMX) 180 mL suspension 5 ml PO 4X/DAY PRN (Reason: pain) Qty: 180 0RF Rx Instructions: diphenhydramine 12.5 mg/5 mL oral liquid 60 mL; aluminum-mag hydroxide- simethicone 400 mg-400 mg-40 mg/5 mL oral susp 60 mL; Lidocaine Viscous 2 % mucosal solution 60 mL; Per 180 mL Primary Care Provider: Marta Dobbins NP Referrals: Marta Dobbins NP, [facility] [Primary Care Provider] - Print Language: Swiss
--- OUTSIDE RECORDS SUMMARY | 2024-08-23 00:08 | XMS RPT_ITS | CCD ---
Author Organization [facility] Care Team Providers Care Cartoon Designer Name Role Phone ANIL HOSKINS JR. Unavailable Unavailable ANIL HOSKINS JR. Unavailable Unavailable GURJIT OTOOLE Unavailable Unavailable PROVIDER, UNKNOWN Unavailable Unavailable Cristobal Otoole Unavailable Unavailable Luis Eduardo Ng Unavailable Unavailable XIANG JACK STRIP ASSEMBLERGURJIT ORELLANA Primary Care Physician Cristobal Otoole Primary Care Provider [phone] Cristobal Otoole Primary Care Provider [phone] CRISTOBAL OTOOLE Primary Care Unavailable MACIEL MCGHEE Referring Unavailable QUE MCKEON Referring Unavailable CRISTOBAL OTOOLE Primary Care Unavailable SABAS REYES Admitting Unavailable SABAS REYES Attending Unavailable CRISTOBAL OTOOLE Primary Care Unavailable Trill SHOE CUTTER-C, Cristobal Primary Care Provider Tridelmi SHOE CUTTER-C Cristobal Referring Provider Brit Ramírez Attending Provider [phone] Jatinder Cyr MD Attending Provider [phone] Brit Ramírez Referring Provider [phone] Xiang SHOE CUTTER-CCristobal Primary Care Provider Brit Ramírez Attending Provider [phone] Brit Ramírez Referring Provider [phone] Tridelmi SHOE CUTTER-C, Cristobal Referring Provider [phone] Dr. Jatinder Cyr MD Attending Provider [phone] FRANCINE MEDEIROS Attending Provider Unavailable WALDEMAR, FRANCINE Referring Provider Unavailable Dr. Rafy Pfeiffer DO Emergency Provider [phone] TRENT ALAS Attending Unavailable MOFTAKHAR, MONIQUE Referring Unavailable TRILL, CRISTOBAL Primary Care Unavailable TRILL, CRISTBOAL Primary Care Unavailable MOFTAKHAR, MONIQUE Attending Unavailable TRENT ALAS Admitting Unavailable TRENT ALAS Attending Unavailable TRILL, CRISTOBAL Primary Care Unavailable TRILL, CRISTOBAL Attending Unavailable TRILL, CRISTOBAL Referring Unavailable TRILL, CRISTOBAL Primary Care Unavailable TRILL, CRISTOBAL Primary Care Unavailable TRILL, CRISTOBAL Attending Unavailable TRILL, CRISTOBAL Referring Unavailable TRILL, CRISTOBAL Primary Care Unavailable TRILL, CRISTOBAL Attending Unavailable TRILL, CRISTOBAL Referring Unavailable TRILL, CRITSOBAL Primary Care Unavailable TRILL, CRISTOBAL Primary Care Unavailable BINTA VIDAL Attending Unavailable WALDEMAR, FRANCINE Attending Unavailable TRILL, CRISTOBAL Primary Care Unavailable WALDEMAR, FRANCINE Attending Unavailable WALDEMAR, FRANCINE Referring Unavailable TRILL, CRISTOBAL Primary Care Unavailable WALDEMAR, FRANCINE Attending Unavailable WALDEMAR, FRANCINE Referring Unavailable TRILL, CRISTOBAL Primary Care Unavailable SABAS REYES Attending Unavailable CHOKAN, SABAS Referring Unavailable TRILL, CRISTOBAL Primary Care Unavailable WALDEMAR, FRANCINE Attending Unavailable WALDEMAR, FRANCINE Referring Unavailable TRILL, CRISTOBAL Primary Care Unavailable WALDEMAR, FRANCINE Attending Unavailable WALDEMAR, FRANCINE Referring Unavailable TRILL, CRISTOBAL Primary Care Unavailable MOFTAKHAR, MONIQUE Referring Unavailable TRILL, CRISTOBAL Primary Care Unavailable TRILL, CRISTOBAL Attending Unavailable TRILL, CRISTOBAL Referring Unavailable TRILL, CRISTOBAL Primary Care Unavailable TRENT ALAS Attending Unavailable TRILL, CRISTOBAL Primary Care Unavailable TRILL, CRISTOBAL Attending Unavailable TRILL, CRISTOBAL Referring Unavailable TRILL, CRISTOBAL Primary Care Unavailable TRILL, CRISTOBAL Attending Unavailable TRILL, CRISTOBAL Referring Unavailable TRILL, CRISTOBAL Primary Care Unavailable ESA REYESON Attending Unavailable CHOKAN, SABAS Referring Unavailable TRILL, CRISTOBAL Primary Care Unavailable CHOKAN SABAS Attending Unavailable CHOKAN, SABAS Referring Unavailable TRILL, CRISTOBAL Primary Care Unavailable TRILL, CRISTOBAL Attending Unavailable TRILL, CRISTOBAL Referring Unavailable TRILL, CRISTOBAL Primary Care Unavailable CHOESA LOPESON Attending Unavailable CHOKAN, SABAS Referring Unavailable TRILL, CRISTOBAL Primary Care Unavailable CHOKAN, SABAS Attending Unavailable CHOKAN, SABAS [...] Attending Unavailable TRILL, CRISTOBAL Primary Care Unavailable WALDEMARLINDAN Attending Unavailable TRILL, CRISTOBAL Primary Care Unavailable WALDEMARRABIAFRACNINE Attending Unavailable TRILL, CRISTOBAL Primary Care Unavailable WALDEMARLINDAN Attending Unavailable TRILL, CRISTOBAL Primary Care Unavailable WALDEMAR, FRANCINE Referring Unavailable TRILL, CRISTOBAL Primary Care Unavailable WALDEMARLINDAN Attending Unavailable TRILL, CRISTOBAL Primary Care Unavailable CHOKAN, SABAS Attending Unavailable CHOKAN, SABAS Referring Unavailable TRILL, CRISTOBAL Primary Care Unavailable CHOKAN, SABAS Attending Unavailable CHOKAN, SABAS Referring Unavailable TRILL, CRISTOBAL Primary Care Unavailable CHOKAN, SABAS Attending Unavailable CHOKAN, SABAS Referring Unavailable TRILL, CRISTOBAL Primary Care Unavailable CHOKAN, SABAS Attending Unavailable CHOKAN, SABAS Referring Unavailable TRILL, CRISTOBAL Primary Care Unavailable CHOKAN, SABAS Attending Unavailable CHOKAN, SABAS Referring Unavailable TRILL, CRISTOBAL Primary Care Unavailable TRILL, CRISTOBAL Attending Unavailable TRILL, CRISTOBAL Referring Unavailable TRILL, CRISTOBAL Primary Care Unavailable CHOKAN, SABAS Attending Unavailable CHOKAN, SABAS Referring Unavailable TRILL, CRISTOBAL Primary Care Unavailable TRILL, CRISTOBAL Referring Unavailable TRILL, CRISTOBAL Primary Care Unavailable TRENT ALAS Attending Unavailable TRILL, CRISTOBAL Primary Care Unavailable Trill SHOE CUTTER, Cristobal Referring Unavailable Trill SHOE CUTTER, Cristobal Primary Care Unavailable Brit Ramsey Attending Unavailable Trill SHOE CUTTER, Cristobal Primary Care Unavailable Trill SHOE CUTTER, Cristobal Referring Unavailable Brit Ramsey Attending Unavailable Jatinder Cyr Attending Unavailable Trill SHOE CUTTER, Cristobal Primary Care Unavailable Trill SHOE CUTTER, Cristobal Primary Care Unavailable Trill SHOE CUTTER, Cristobal Referring Unavailable Brit Ramsey Attending Unavailable Jatinder Cyr Attending Unavailable Trill SHOE CUTTER, Cristobal Primary Care Unavailable VALE JAMES Attending Unavailable VALE JAMES Referring Unavailable Trill SHOE CUTTER, Cristobal Primary Care Unavailable Rafy Pfeiffer Attending Unavailable Trill SHOE CUTTER, Cristobal Primary Care Unavailable Trill SHOE CUTTER, Cristobal Primary Care Unavailable Elmer Nelson Attending Unavailable TianaodicaElmer Referring Unavailable Trill SHOE CUTTER, Cristobal Primary Care Unavailable Provider, Ed Physician Attending Unavailab Brit Diane Referring Unavailable Trill SHOE CUTTER, Cristobal Primary Care Unavailable Brit Ramsey Attending Unavailable DEBORAH TEIXEIRA Attending Unavailable TRILL, CRISTOBAL [...] OSMAN Referring Unavailable MARISOL JIMENEZ Attending Unavailable TRILL, CRISTOBAL C Primary Care Unavailable ABNG MANDUJANO Attending Unavailable TRILL, CRISTOBAL C Primary Care Unavailable ARJUN DANIELS Attending Unavailable TRILL, CRISTOBAL C Primary Care Unavailable QUE MCKEON Attending Unavailable TRILL, CRISTOBAL C Primary Care Unavailable PAWEL, DEBBIE J Referring Unavailable TRILL, CRISTOBAL C Primary Care Unavailable PAWEL, DEBBIE J Referring Unavailable TRILL, CRISTOBAL C Primary Care Unavailable TRILL, CRISTOBAL C Primary Care Unavailable TRILL, CRISTOBAL C Referring Unavailable SNOW QUICK Attending Unavailable YENNY OSMAN Attending Unavailable TRILL, CRISTOBAL C Primary Care Unavailable SELF Referring Unavailable TRILL, CRISTOBAL C Primary Care Unavailable PAWEL, DEBBIE J Referring Unavailable CRISTOBAL OTOOLE Primary Care Unavailable NEGRO MARTI Attending Unavailable CRISTOBAL OTOOLE Primary Care Unavailable CRISTOBAL OTOOLE Primary Care Unavailable OFFICE VISIT Date of Service: 04/17/24 MR#: [id number] Acct: [id number] Name: BRITTNEY ALCOCER Rep #: [id number] : 1975 Provider: SHAHZAD Caal Age/Sex: 49/F Location: [facility] Status: Signed Intake Vital Signs 02/22/24 08:04 [...] 1 - 2 puff inhalation Q4H PRN MO N 09/02/18 04/17/24 History aerosol inhaler Sob [...] decisions made by me, SHAHZAD Caal 04/17/24 0830. Part of today???s visit was documented by [...] is helpin (more content not included)... Normal [facility] Office Visiton 04-11-2024 Follow-up visit [id number] Brittney Alcocer 1975 F Date Provider Department Center 04/11/2024 [id number]-MGUIOEFRANCINE MEDEIROS [facility] OR None No family history on file Level of Service:36695 [place] POSTOP FOLLOW UP VISIT RELATED TO ORIGINAL PX Reason for Visit and Comments: Follow-up [824181] - Left distal phalanx ring finger fx cast check Normal [facility] Progress Noteon 04-11-2024 Progress Note --- Attestation signed by Trent Alas MD at 04/15/2024 10:27 PM Patient was seen and evaluated in conjunction with Diana Medeiros PA-C. Agree with above assessment and plan. Trent Alas MD Orthopedic Hand and Upper Extremity Surgery [facility] Department of Orthopaedics [facility] [place] [address] [place] [address] [address] [facility] [address] Dept: [phone] Dept 04/11/24 Chief Complaint Patient presents with [...] with managing provider. No follow-ups on file. [facility] 37on 04-10-2024 37 [employer] NS The Do NOTS for cast care DO [...] concerns Sunday through Sunday 8am to 4:30pm [phone] After hours please call or go the ER Normal [facility] Office Visiton 04-10-2024 Follow-up visit [id number] Brittney Alcocer 1975 F Date Provider Department Center 04/10/2024 [id number]-FCERKXFRANCINE MEDEIROS [facility] None No family history on file Level of Service:63831 [place] POSTOP FOLLOW UP VISIT RELATED TO ORIGINAL PX Reason for Visit and Comments: Post-op [483] - DOS 04/01/24/ Closed reduction percutaneous pinning left ring finger distal phalanx fracture Normal [facility] Progress Noteon 04-10-2024 Progress Note --- Attestation signed by Trent Alas MD at 04/11/2024 6:42 PM Patient was seen and evaluated in conjunction with Diana Medeiros PA-C. Agree with above assessment and plan. Trent Alas MD Orthopedic Hand and Upper Extremity Surgery [facility] Medical [facility] Department of Orthopaedics [facility] [place] [address] [place] [address] [place] [address] Dept: [phone] Dept 04/10/2024 Chief Complaint Patient presents with [...] PA-C on (more content not included)... Normal [facility] XR Hand - left 3 Viewson FINDINGS/IMPRESSION: Stable appearance of the fourth finger distal phalanx/interphalangeal joint, with 2 K wires which extend into the midportion of the middle phalanx. The distal phalanx fracture remains lucent but in stable position. Report Dictated on Electronically Signed By: Carlos Dominguez MD Electronically Signed Date/Time: 04/10/2024 12:58 PM [facility] Patient Name: BRITTNEY MORA : 1975 Exam Date/Time: 04/10/2024 09:03 Procedure: XR HAND 3+ VIEWS LEFT Ordering Provider: MEDEIROS KATELYN Reason For Exam: Left hand pain Left hand CLINICAL INDICATION: Pain TECHNIQUE: Three views of the left hand COMPARISON: April 03, 2024 [facility] Carlos Dominguez MD - 04/10/2024 Patient [...] MD Electronically Signed Date/Time: 04/10/2024 12:58 PM [facility] Radiology Study observation (narrative) [facility] XR Hand - left 3 ViewsOrdere d By: Carlos Dominguez on 04-10-2024 [employer] Work Phone: Consulton 04-04-2024 Consult --- Attestation signed by Trent Alas MD at 04/04/2024 11:12 AM Patient discussed with on-call resident and agree with assessment and plan. Patient will follow-up with me today in office as well. Trent Alas MD Orthopedic Hand and Upper Extremity Surgery [facility] Department of Orthopaedics Ortho Progress Note Patient: Brittney Alcocer Date of : 1975 Acct: [id number] PCP: CRISTOBAL OTOOLE Date of Admission: 04/03/2024 [...] at first ed prior to transfer to [facility]. OBJECTIVE: General: alert and oriented to person, [...] distal phalanx fracture 04/01 -splint replaced in [facility] ED -pt advised that throbbing pain, can be normal postoperatively -pt advised that if she needs additional pain medication she may need to see pain management for longer term prescription -pt given return precautions including signs of infection for return to [facility] ED POST OPERATIVE PLAN -Maintain splint till [...] PGY-3 Orthopedic Surgery 04/04/2024 1:30 AM Normal [facility] ED Nursing Noteon 04-04-2024 ED Nursing Note Ortho at bedside Normal [facility] Office Visiton 04-04-2024 Follow-up visit [id number] Brittney Alcocer 1975 F Date Provider Department Center 04/04/2024 [id number]-DUHNTRENT ALAS [facility] OR None No family history on file Level of Service:88372 [place] POSTOP FOLLOW UP VISIT RELATED TO ORIGINAL PX Reason for Visit and Comments: Post-op [483] - closed reduction percutaneous pinning of Left ring finger DOS 04/01/24 Normal [facility] Progress Noteon 04-04-2024 Progress Note [facility] [place] [address] [facility] [address] [facility] [address] Dept: [phone] Dept 04/04/2024 Chief Complaint Patient presents with [...] left index finger despite taking Tylenol and Gladstone for pain. Cannot take NSAIDs. No other [...] alignment ASSESSMENT 1. Postoperative pain HYDROcodone-acetaminoph en (Gladstone) 5-325 MG tablet 2. Closed displaced fracture of distal phalanx of left ring finger with routine healing, subsequent encounter HYDROcodone-acetaminoph en (Gladstone) 5-325 MG tablet PLAN Brittney status post left ring finger closed reduction and percutaneous pin fixation 04/01/2024. Patient having difficulties with pain control postoperatively. X-rays and clinical exam reassuring. Did recommend patient be placed back into a splint today. Recommended aggressive elevation of left upper extremity. Recommended continue pain control with Tylenol and patient was given a new prescription for Gladstone as well, to use for severe breakthrough [...] MD Orthopedic Hand and Upper Extremity Surgery [facility] Department of Orthopaedics 04/04/2024 at 10:27 AM (Please note that portions of this note may have been completed with a voice recognition program. Efforts were made to edit the dictations but occasionally words are mis-transcribed.) Normal [facility] 36on 04-03-2024 36 Spoke with patient o [...] there and she again verbalized understanding. Normal [facility] 36 Situation: Patient called orthopedic nurse triage [...] Feeling of pins and needles. Stated taking Gladstone and Tylenol is not helping. Currently pain is moderate. Brittney is taking Gladstone for pain relief. acetaminophen every 6 hours Brittney admits to new numbness and tingling. Pin and needles feeling Incision is covered , Brittney denies drainage from her incision. Capillary refill: 3 seconds Erythema: No Swelling: No Effusion: No Recommendation: Telephone encounter sent to clinical staff provider to advise Normal [facility] BASIC METABOLIC PANELon 03-09 Anion gap [Moles/Vol] 7 mmol/L Normal 3-13 [facility] Comment on above: Performed By: #### L AB149, LAB15 ####Certified Pathology Assistant: LAURA MOSQUERA ([id number])[facility])[address] [place] [address] Calcium [Mass/Vol] 9.5 mg/dL Normal 8.4-10.2 [facility] Comment on above: Performed By: #### L AB149, LAB15 ####Certified Pathology Assistant: LAURA MOSQUERA ([id number])[facility] ([facility])[address] [place] [address] [place] Chloride [Moles/Vol] 110 mmol/L High 98-107 [facility] Comment on above: Performed By: #### L AB149, LAB15 ####Certified Pathology Assistant: LAURA MOSQUERA ([id number])[facility] K[facility]NA [facility] (SWRLAB)[address] CO2 [Moles/Vol] 26 mmol/L Normal 22-29 [facility] Comment on above: Performed By: #### L AB149, LAB15 ####Certified Pathology Assistant: LAURA MOSQUERA ([id number])[facility] KHANNA [place] (SWRLAB)[address] Creatinine [Mass/Vol] 0.78 mg/dL Normal 0.57-1.11 [facility] Comment on above: Performed By: #### L AB149, LAB15 ####Certified Pathology Assistant: LAURA MOSQUERA ([id number])[facility] GITA [place] (SWRLAB)[address] [place] [address] GLOMERULAR FILTRATION RATE ML/MIN/1.73 SQ M.PREDICTED >90.0 Normal >60.0 [facility] Comment on above: Result Comment: Calc ulation based on the Chronic Kidney Disease Epidemiology Collaboration (CKD-EPI) equation refit without adjustment for race Performed By: #### L AB149, LAB15 ####Certified Pathology Assistant: LAURA MOSQUERA ([id number])[facility] K[facility]NA [place] (SWRLAB)[address] [place] [address] [place] Glucose [Mass/Vol] 90 mg/dL Normal 74-100 [facility] Comment on above: Performed By: #### L AB149, LAB15 ####Certified Pathology Assistant: LAURA MOSQUERA ([id number])[facility] G[place] (SWRLAB)[address] [place] [address] [place] Potassium [Moles/Vol] 4.0 mmol/L Normal 3.5-5.1 [facility] Comment on above: Result Comment: [facility] potassium values may be up to 0.5 mmol/L lower than serum values. Performed By: #### L AB149, LAB15 ####Certified Pathology Assistant: LAURA MOSQUERA ([id number])[facility] FERRAROT[facility] (SWRLAB)[address] Sodium [Moles/Vol] 143 mmol/L Normal 136-145 [facility] Comment on above: Performed By: #### L AB149, LAB15 ####Certified Pathology Assistant: LAURA MOSQUERA ([id number])[facility] FERRAROTMAN (SWRLAB)[address] Urea nitrogen [Mass/Vol] 12 mg/dL Normal 8-21 [facility] Comment on above: Performed By: #### L AB149, LAB15 ####Certified Pathology Assistant: LAURA MOSQUERA ([id number])[facility] GITA SAUNDERSAN (SWRLAB)[address] [place] [address] Basic metabolic 1998 panelon 04-03-2024 Anion gap [Moles/Vol] 7 mmol/L 3 - 13 mmol/L [facility] Calcium [Mass/Vol] 9.5 mg/dL 8.4 - 10. 2 mg/dL [facility] Chloride [Moles/Vol] 110 mmol/L High 98 - 10 7 mmol/L [facility] CO2 [Moles/Vol] 26 mmol/L 22 - 29 mmol/L [facility] Creatinine [Mass/Vol] 0.78 mg/dL 0.57 - 1.11 mg/dL [facility] GFR/1.73 sq M.predicted (S/P/Bld) [Vol rate/Area] - PINF [facility] Comment on above: Calculation based on the Chronic Kidney Disease Epidemiology Collaboration (CKD-EPI) equation refit without adjustment for race Glucose [Mass/Vol] 90 mg/dL 74 - 100 mg/dL [facility] Interpretation and review of laboratory results Abnormal [facility] Potassium [Moles/Vol] 4 mmol/L 3.5 - 5.1 mmol/L [facility] Comment on above: Plasma potassium janee ues may be up to 0.5 mmol/L lower than serum values. Sodium [Moles/Vol] 143 mmol/L 136 - 145 mmol/L [facility] Urea nitrogen [Mass/Vol] 12 mg/dL 8 - 21 mg/dL [facility] C-REACTIVE PROTEINon 025 CRP [Mass/Vol] 0.6 mg/L Normal <5.[address] [facility] Comment on above: Performed By: #### L AB149, LAB15 ####Certified Pathology Assistant: LAURA MOSQUERA ([id number])[facility] (SWRL[facility])[address] [place] [address] CBC W Auto Differential pane l (Bld)on 04-03-2024 Basophils (Bld) [#/Vol] 0.1 10*3/uL 0.0 - 0.2 10*3/uL [facility] Basophils/100 WBC (Bld) 0.7 % 0.0 - 2.0 % [facility] Eosinophils (Bld) [#/Vol] 0.2 10*3/uL 0.0 - 0.5 10*3/uL [facility] Eosinophils/100 WBC (Bld) 3.1 % 0.0 - 6.0 % [facility] Erythrocyte distribution width (RBC) [Ratio] 13.1 % 11.5 - 15.0 % [facility] Hematocrit (Bld) [Volume fraction] 44.2 % 35.0 - 47.0 % [facility] Hemoglobin (Bld) [Mass/Vol] 15 g/dL 11.7 - 16.0 g/dL [facility] Immature granulocytes (Bld) [#/Vol] 0 10*3/uL NINF - 0.1 10*3/uL [facility] Immature granulocytes/100 WBC (Bld) 0.3 % 0.0 - 2.0 % [facility] Interpretation and review of laboratory results Normal [facility] Lymphocytes (Bld) [#/Vol] 2.8 10*3/uL 1.0 - 4.3 10*3/uL [facility] Lymphocytes/100 WBC (Bld) 40.8 % 15.0 - 45.0 % [facility] MCH (RBC) [Entitic mass] 31.6 pg 26.0 - 34.0 pg [facility] MCHC (RBC) [Mass/Vol] 33.9 % 30.5 - 36.0 % [facility] MCV (RBC) [Entitic vol] 93.2 fL 77.0 - 99.0 fL [facility] Monocytes (Bld) [#/Vol] 0.5 10*3/uL 0.0 - 0.9 10*3/uL [facility] Monocytes/100 WBC (Bld) 7.4 % 5.0 - 13.0 % [facility] Neutrophils (Bld) [#/Vol] 3.2 10*3/uL 1.8 - 7.5 10*3/uL [facility] Neutrophils/100 WBC (Bld) 47.7 % 38.0 - 82.0 % [facility] Nucleated RBC/100 WBC (Bld) [Ratio] 0 % [facility] Platelet mean volume (Bld) [Entitic vol] 9.6 fL 9.0 - 12.7 fL [facility] Comment on above: MPV is a calculated measurement using platelet volume ratio Platelets (Bld) [#/Vol] 227 10*3/uL 140 - 440 10*3/uL [facility] RBC (Bld) [#/Vol] 4.74 10*6/uL 3.80 - 5.2 0 10*6/uL [facility] WBC (Bld) [#/Vol] 6.8 10*3/uL 3.6 - 10.7 10*3/uL [facility] CBC WITH AUTO DIFFERENTIALon 04-03-2024 Basophils (Bld) [#/Vol] 0.1 10*3/uL Normal 0.0-0.2 [facility] Comment on above: Performed By: #### Omar [id number], [id number] ####Certified Pathology Assistant: LAURA MOSQUERA ([id number])[facility] ([facility])[address] [place] [address] Basophils/100 WBC (Bld) 0.7 % Normal 0.0-2.0 [facility] Comment on above: Performed By: #### Omar [id number], [id number] ####Certified Pathology Assistant: LAURA MOSQUERA ([id number])[facility] [place] (SWRLAB)[address] [place] [address] Eosinophils (Bld) [#/Vol] 0.2 10*3/uL Normal 0.0-0.5 [facility] Comment on above: Performed By: #### L [id number], [id number] ####Certified Pathology Assistant: LAURA MOSQUERA ([id number])[facility] KHANNA [facility] (SWRLAB)[address] [place] [address] [place] Eosinophils/100 WBC (Bld) 3.1 % Normal 0.0-6.0 [facility] Comment on above: Performed By: #### Omar REYES, [id number] ####Certified Pathology Assistant: LAURA MOSQUERA ([id number])[facility] K[facility]NA [place] (SWRLAB)[address] [place] [address] Erythrocyte distribution width (RBC) [Ratio] 13.1 % Normal 11.5-15.0 [facility] Comment on above: Performed By: #### Omar REYES, [id number] ####Certified Pathology Assistant: LAURA MOSQUERA ([id number])[facility] K[facility]ANNA [place] (SWRLAB)[address] [place] [address] Hematocrit (Bld) [Volume fraction] 44.2 % Normal 35.0-47.0 [facility] Comment on above: Performed By: #### Omar REYES, [id number] ####Certified Pathology Assistant: LAURA MOSQUERA ([id number])[facility] K[facility] (SWRLAB)[address] [place] [address] Hemoglobin (Bld) [Mass/Vol] 15.0 g/dL Normal 11.7-16.0 [facility] Comment on above: Performed By: #### Omar [id number], [id number] ####Certified Pathology Assistant: LAURA MOSQUERA ([id number])[facility]ENTER[facility]renna KHANNA RITTMAN (SWRLAB)[address] [place] [address] [place] IMMATURE GRANS % 0.3 % Normal 0.0-2.0 [facility] Comment on above: Performed By: #### L [id number], [id number] ####Certified Pathology Assistant: LAURA MOSQUERA ([id number])[facility]ENTER[facility]renna KHANNA RITTMAN (SWRLAB)[address] [place] [address] [place] IMMATURE GRANS ABSOLUTE 0.0 10*3/uL Normal <0.1 [facility] Comment on above: Performed By: #### Omar [id number], [id number] ####Certified Pathology Assistant: LAURA MOSQUERA ([id number])[facility]ENTER[facility]renna KHANNA RITTMAN (SWRLAB)[address] [place] [address] Lymphocytes (Bld) [#/Vol] 2.8 10*3/uL Normal 1.0-4.3 [facility] Comment on above: Performed By: #### Omar [id number], [id number] ####Certified Pathology Assistant: LAURA MOSQUERA ([id number])[facility]ENTER[facility]renna KHANNA RITTMAN (SWRLAB)[address] [place] [address] Lymphocytes/100 WBC (Bld) 40.8 % Normal 15.0-45.0 [facility] Comment on above: Performed By: #### Omar REYES, [id number] ####Certified Pathology Assistant: LAURA MOSQUERA ([id number])[facility]ENTER[facility] KHANNA RITTMAN (SWRLAB)[address] [place] [address] MCH (RBC) [Entitic mass] 31.6 pg Normal 26.0-34.0 [facility] Comment on above: Performed By: #### Omar [id number], [id number] ####Certified Pathology Assistant: LAURA MOSQUERA ([id number])[facility] KHANNA RITTMAN (SWRLAB)[address] [place] [address] MCHC 33.9 % Normal 30.5-36.0 [facility] Comment on above: Performed By: #### Omar [id number], [id number] ####Certified Pathology Assistant: LAURA MOSQUERA ([id number])[facility] KHANNA RITTMAN (SWRLAB)[address] [place] [address] MCV (RBC) [Entitic vol] 93.2 fL Normal 77.0-99.0 [facility] Comment on above: Performed By: #### Omar [id number], [id number] ####Certified Pathology Assistant: LAURA MOSQUERA ([id number])LEANNA KHANNA RITTMAN (SWRLAB)[address] [place] [address] [place] Monocytes (Bld) [#/Vol] 0.5 10*3/uL Normal 0.0-0.9 [facility] Comment on above: Performed By: #### Omar [id number], [id number] ####Certified Pathology Assistant: LAURA MOSQUERA ([id number])LEANNA KHANNA RITTMAN (SWRLAB)[address] [place] [address] [place] Monocytes/100 WBC (Bld) 7.4 % Normal 5.0-13.0 [facility] Comment on above: Performed By: #### Omar REYES, [id number] ####Certified Pathology Assistant: LAURA MOSQUERA ([id number])LEANNA KHANNA RITTMAN (SWRLAB)[address] [place] [address] [place] NEUTROPHILS ABSOLUTE 3.2 10*3/uL Normal 1.8-7.5 [facility] Comment on above: Performed By: #### Omar SEGURA8, [id number] ####Certified Pathology Assistant: LAURA MOSQUERA ([id number])LEANNA KHANNA RITTMAN (SWRLAB)[address] [place] [address] [place] Neutrophils/100 WBC (Bld) 47.7 % Normal 38.0-82.0 [facility] Comment on above: Performed By: #### Omar SEGURA8, [id number] ####Certified Pathology Assistant: LAURA MOSQUERA ([id number])LEANNA KHANNA RITTMAN (SWRLAB)[address] [place] [address] [place] NRBC 0.0 /100 WBCs Normal 0.0-2.0 [facility] Comment on above: Performed By: #### L [id number], [id number] ####Certified Pathology Assistant: LAURA MOSQUERA ([id number])LEANNA KHANNA RITTMAN (SWRLAB)[address] [place] [address] [place] Platelet mean volume (Bld) [Entitic vol] 9.6 fL Normal 9.0-12.7 [facility] Comment on above: Result Comment: MPV is a calculated measurement using platelet volume ratio Performed By: #### L [id number], PNH360 ####Certified Pathology Assistant: LAURA MOSQUERA ([id number])[facility]ENTER[facility]renna KHANNA RITTMAN (SWRLAB)[address] [place] [address] [place] Platelets (Bld) [#/Vol] 227 10*3/uL Normal 140-440 [facility] Comment on above: Performed By: #### Omar [id number], [id number] ####Certified Pathology Assistant: LAURA MOSQUERA ([id number])[facility]ENTERBrenna NYGITA RITTMAN (SWRLAB)[address] [place] [address] [place] RBC (Bld) [#/Vol] 4.74 10*6/uL Normal 3.80-5.20 [facility] Comment on above: Performed By: #### Omar [id number], [id number] ####Certified Pathology Assistant: LAURA MOSQUERA ([id number])[facility]ENTERBrenna NYGITA RITTMAN (SWRLAB)[address] [place] [address] [place] WBC (Bld) [#/Vol] 6.8 10*3/uL Normal 3.6-10.7 [facility] Comment on above: Performed By: #### L [id number], WXY555 ####Certified Pathology Assistant: LAURA MOSQUERA ([id number])[facility]ENTERBrenna KHANNA RITTMAN (SWRLAB)[address] [place] [address] [place] CRP [Mass/Vol]on 04-03-2024 Interpretation and review of laboratory results Normal [facility] ED Nursing Noteon 04-03-2024 ED Nursing Note Report called to Danuta Villegas RN at this time. Normal [facility] ED Provider Noteon ED Provider Note EMERGENCY [...] None Outside historians: Past medical review in [facility] to obtain collateral history REVIEW OF SYSTEMS Review of Systems Pertinent positives and negatives as per [facility] PAST MEDICAL HISTORY Past Medical History: [...] status: Every Da (more content not included)... [facility] ED Provider Note Emergency Department Encounter [facility] EMERGENCY DEPT Patient: Brittney Alcocer : 1975 [...] his/her documentation. MD Binta Multani MD 04/04/24218 [facility] ED Provider Note EMERGENCY DEPARTMENT ENCOUNTER Pt [...] a pin placed for fixation. Presented to [facility] ED for worsening postoperative pain and paresthesias. [...] by mouth Nightly for 10 days., Starting 05/21/2022, Until Sun05/31/2022, Normal divalproex (Depakote ER) 500 [...] migraines SCREENINGS PHYSICAL EXAM ED Triage Vitals [04/03/241917] Temp Heart Rate Resp BP 37.1 ?C (98.7 ?F) 69 18 123/58 SpO2 Temp Source Heart Rate Source Patient Position 98 % Oral Monitor Sitting BP Location FiO2 (%) Right arm -- Physical Exam Vitals and nursing note reviewed. Constitutional: General: She is not in acute distress. Appearance: She is well-developed. HENT: Head: Normocephalic (more content not included)... Normal [facility] ESR (Bld) [Velocity]Ordered By: Valeriy Daily on 04-03-2024 Interpretation and review of laboratory results Abnormal [facility] - Chemistry and C hemistry - challengeon 04-03-2024 CRP [Mass/Vol] 0.6 mg/L NINF - 5.0 mg/L [facility] Laboratory - Coagulationon 0 04-03-2024 aPTT Coag (PPP) [Time] 25.9 s 20.0 - 30.5 s [facility] INR Coag (PPP) [Relative time] 1 {INR} 0.9 - 1.1 [facility] Comment on above: Recommended Anticoag ulant Therapy: [...] 10.7 s 9.0 - 1 2.0 s [facility] Laboratory - Hematology and Cell countsOrdered By: Valeriy Daily on 04-03-2024 ESR (Bld) [Velocity] 23 mm/h High [facility] No Panel Informationon 04-03 [facility] Interpretation and review of laboratory results Normal [facility] PROTIME AND APTTon aPTT Coag (Bld) [Time] 25.9 s Normal 20.0-30.5 [facility] Comment on above: Performed By: #### L [id number] ####Certified Pathology Assistant: LAURA MOSQUERA ([id number])[facility] GITA ZAVALA (SWAhsanLAB)[address] [place] [address] INR Coag (PPP) [Relative time] 1.0 {INR} Normal 0.9-1.1 [facility] Comment on above: Result Comment: Peyman [...] prevent Myocardial Infarction Performed By: #### L [id number] ####Certified Pathology Assistant: LAURA MOSQUERA ([id number])[facility] CENTERAdmetricTMAN (SWRLAB)[address] [place] [address] PT Coag (PPP) [Time] 10.7 s Normal 9.0-12.0 [facility] Comment on above: Performed By: #### Omar [id number] ####Certified Pathology Assistant: LAURA MOSQUERA ([id number])[facility] CENTERPiqoraAN (SWRLAB)[address] [place] [address] [place] SEDIMENTATION RATE, AUTOMATE Don 04-03-2024 SEDIMENTATION RATE, ERYTHROCYTE 23 mm/hr High 0-20 [facility] Comment on above: Performed By: #### L [id number], [id number] ####Certified Pathology Assistant: LAURA MOSQUERA ([id number])[facility] CENTERPiqoraAN (SopheonRLAB)[address] [place] [address] XR Hand - left 3 Viewson 1. Postsurgical change compatible is status post percutaneous K wire fixation of left ring finger distal pharyngeal fracture. Report Dictated on Electronically Signed By: Tray Stokes MD Electronically Signed Date/Time: 04/03/2024 8:44 PM [facility] Patient Name: BRITTNEY MORA : [...] osseous and soft tissue structures grossly unremarkable. [facility] Tray Stokes MD - 04/03/2024 Patient [...] Electronically Signed Date/Time: 04/03/2024 8:44 PM EST [facility] Radiology Study observation (narrative) [facility] alth XR Hand - left 3 ViewsOrdere d By: Tray Stokes on 04-03-2024 [facility] Work Phone: Nursing Noteon 04-01-2024 Nursing Note Pt and family verbalized understanding of recovery instructions, pt verbalized a readiness to be discharged home. Pt discharged home via wheelchair accompanied by RN/volunteer. Pt has had all their belongings returned to them at discharge Normal [facility] Nursing Note Reviewed discharge instructions with patient and friend Yvette. Understanding verbalized. Normal [facility] Nursing Note Patient transitioned to Phase 2. Tolerating liquids. Family at bedside. Normal [facility] Nursing Note Pt received from OR via cart, spont. Resp. With COLLEGE INTERN in attendance. Placed on monitor. Monitor alarms on in PACU Normal [facility] Op Noteon 04-01-2024 Op Note Operative Report Patient Name: Brittney Alcocer Date of : 1975 Date of Surgery: 04/01/24 Preoperative Diagnosis: left ring finger displaced distal phalanx fracture Postoperative Diagnosis: Same Procedure: Closed reduction and percutaneous pin fixation of left ring finger displaced distal phalanx fracture Surgeon: Trent Alas MD Assistants: Francine Medeiros PA-C The first-pharmaceutical assistant was critical to all steps of [...] patient's ASA was verified by the nurse build technician and the anesthesia staff. Fire risk was [...] well after p (more content not included)... [facility] [id number] 03-31-2024 [id number] Medication List Accurate as of March 31, [...] review them with you. Shower with the Hibiclens product. Follow the instructions dry off with [...] hours prior to surgery. Please bring your [facility] Surgical folder with you day of surgery. [...] located here Patient will be escorted to [facility] Gita does not open before 6am Normal [facility] 36on 03-31-2024 36 PAT orders signed, thanks! Normal [facility] Magnetic resonance imaging r eportOrdered By: Anthony Tena on 03-28-2024 Study report [facility] Imaging Services [address] [place] [address] Spine Cervical (Routine) MR#: [id number] Acct: [id number] Name: MARIYARaeannBRITTNEY Rep #: [id number] : 1975 F 49 From: Marek Tena DO PCP: GILA Baptiste Status: REG CL I Study:Spine Cervical (Routine) Date of Exam: 03/28/24 Exam# [id number] Ordering Dr: Tim Ramsey PROCEDURE: MRI cervical spine without IV [...] SMILEY CC: GILA Otoole; SHAHZAD Caal ~ Car Rental Manager: Signed [facility] Spine Cervical (Routine)on 0 03-28-2024 Spine Cervical (Routine) [facility] Services [address] [place] [address] Spine Cervical (Routine) MR#: [id number] Acct: [id number] Name: BRITTNEY ALCOCER Rep #: [id number] : 1975 F 49 From: Anthony Santos PCP: GILA Baptiste Status: REG CLI Study: Spine Cervical (Routine) Date of Exam: Exam# [id number] Ordering Dr: Brit Ramsey PROCEDURE: MRI cervical [...] high-grade foraminal narrowing. Reading Location: SMILEY CC: SHYAMC Cristobal Otoole; SHAHZAD Caal Car Rental Manager: Signed Normal [facility] 36on 03-27-2024 36 Called patient to [facility] of Sunday03/31/24 @ 9:30am phone call. Gave tentative arrival time of 7:30am and sx to start @ 9:30am. Let her know surgery times are subject to change and she will be made aware if so. Patient confirmed and had no further questions. Normal [facility] 36 Sent to sx scheduling Normal [facility] 36 Checked caresource portal- [facility] 36 ----- Message from Francine Medeiros PA-C sent at 03/27/2024 8:24 AM EST ----- M[facility]DI SURGERY SCHEDULING SLIP Patient: Brittney Alcocer Date of : 1975 Date of Surgery: 04/01/2024 9:30am arrive @ 7:30am Day of Surgery: [facility] Hospital: [facility] Duration: 45min Type: Outpatient PAT: Yes, virtual 03/31/24 @ 9:30am call Med Clearance: No Anesthesia: MAC/local Block: None Position: Supine Table: Stretcher Arm Board: Roll-up arm table Radiology: Small C-Arm CPT Code: 12495 Dx code: S62.635D Case #: [id number] Consent: Closed reduction percutaneous pinning left ring finger distal phalanx fracture FollowUp: Waldemar in 10-14 days 04/10/24 @ 9am @ hortensia with kt ( ok 9 days per maddi) XRays: Yes, 2V left ring finger OT Splint needed at first PO appointment: no Special Requests Hand tray K wires, 3.5 and 4.5 available but not open Power Sterile coban 2 inch Yellow pin covers Small Adaptic [facility] Office Visiton 03-27-2024 Follow-up visit [id number] LumaBrittney thayer 1975 F Date Provider Department Center 03/27/2024 39250-GWHPTRENT [facility] ORT GISELA None No family history on file Level of Service:16856 MO OFFICE/OUTPATIENT ESTABLISHED MOD MDM 30 MIN Reason for Visit and Comments: Post-op [483] - Closed nondisplaced fracture of distal phalanx of left ring finger DOI 02/22/2024 [facility] Progress Noteon 03-27-2024 Progress Note [facility] - [facility] [address] [place] [address] [place] [address] Dept: [phone] Dept 03/27/2024 Chief Complaint Patient presents with [...] Follow-up: Brittney will followup with my physician pharmaceutical assistant, Francine Medeiros PA-C 10 to 14 days post operatively. She knows to call the office with any questions or concerns in the interim. Future Imaging: LEFT Ring Finger 2V out of splint Trent Alas MD Orthopedic Hand and Upper Extremity Surgery [facility] Department of Orthopaedics 03/27/2024 at 8:01 AM (Please note that portions of this note may have been completed with a voice recognition program. Efforts were made to edit the dictations but occasionally words are mis-transcribed.) Normal [facility] XR Finger - left 2 Viewson 0 03-27-2024 Fracture of the dist al phalanx with increased dorsal angulation. Report Dictated on Electronically Signed By: Oneil Yang MD Electronically Signed Date/Time: 03/27/2024 10:21 AM [facility] Patient Name: BRITTNEY MORA : [...] identified. There is no soft tissue abnormality. [facility] Oneil Yang MD - 03/27/2024 Patient Name: BRITTNEY [facility]COCER [facility] 1975 [id number] Exam Date/Time: 03/27/2024 07:42 Procedure: XR FINGERS [...] Electronically Signed Date/Time: 03/27/2024 10:21 AM EST [facility] Radiology Study observation (narrative) [facility] alth XR Finger - left 2 ViewsOrde red By: Oneil Yang on 03-27-2024 [employer] Work Phone: CNOVon 03-13-2024 CNOV Office Visit (NHMNS2 ) BRITTNEY ALCOCER ([id number]) 1975 F NFR Date Time Provider Department 03/13/24 2:00 PM DEBBIE ARMAS NHMNS2 During your visit today, we recorded the following information about you: Debbie Armas, JACK STRIP ASSEMBLER.POLISHER HAND 03/13/2024 2:52 PM Signed [facility] In[facility] [...] 1 EachRfl: 11 mirabegron (MYRBETRIQ) 50 mg No46Dzan 1 tablet by mouth once daily.Disp: 30 [...] and clear, coherent, and relevant. Short and continuous churn buttermaker memory, cognition and general fund of knowledge are good. Attention span and concentration are good. Cranial Nerves: VII-face is symmetric without evidence of weakness. VIII-hearing intact. Assessment: No diagnosis found. Plan: Brittney Alcocer is a 49 year old year old female, with a history of chronic migraine, stroke, MD,chronic pain syndrome, TMJD, concussion, peptic ulcer, hypothyroid, [...] without status (more content not included)... Normal [facility] CNOVon 03-11-2024 CNOV Office Visit (HIMNS2 ) BRITTNEY ALCOCER ([id number]) 1975 F NFR Date Time Provider Department 03/11/24 9:30 AM NEGRO MARTI HIMNS2 During your visit today, we recorded the following information about you: Negro Marti, JACK STRIP ASSEMBLER.POLISHER HAND 03/11/2024 8:36 AM Signed [facility] Infusion [...] 1 EachRfl: 11 mirabegron (MYRBETRIQ) 50 mg Lt82Vtzg 1 tablet by mouth once daily.Disp: 30 tabletRfl: 5 fremanezumab-vfrm subcutaneus auto-injector 225 mg/1.5 mL ([employer])Inject 1.5 mL subcutaneously once every month. Do [...] in rate, volume and articulation. Short and continuous churn buttermaker memory, cognition and general fund of knowledge are good. Attention span and concentration are good. Cranial Nerves: VII-face is symmetric without evidence of weakness. VIII-hearing intact. Assessment: No diagnosis found. Plan: Brittney Alcocer is a 49 year old year old female, with a history of chronic migraine, stroke, MD,chronic pain syndrome, TMJD, concussion, peptic ulcer, hypothyroid, asthma, pelvic pain, renal stones and insomnia following up today for day 1 of infusions. Follow up plan: Resume previous at home medications. - Follow up with Yenny Osman APRN on 03/14/2024 Level of service: Est level 1 (0-9 min): Time spent 8 min on the day of service, which included preparing to see the patient, migm-ib-tqcy patient care, completing clinical documentation, obtaining and/or reviewing separately obtained history, performing a medically appropriate examination, and counseling and educating the patient/family/caregive rSandra Carter (more content not included)... Normal [facility] Progress Noteon 03-10-2024 Progress Note [facility] [place] [address] [facility] [address] Dept: [phone] Dept PHYSICAL THERAPY TREATMENT Patient Name: Petar [...] Time Entry Total Treatment Time Start Time: 023 Stop Time: 030 Time Calculation (min): 25 min PT Therapeutic Procedures Time Entry Manual Therapy Time Entry: 25 Lindsey Mcgregor PTA Normal [facility] Progress Noteon 03-06-2024 Progress Note [facility] [address] [facility] [address] Dept: [phone] Dept PHYSICAL THERAPY TREATMENT Patient Name: Petar [...] Entry: 10 Linda Randle, PT, DPT, NCS 03-05-2024 CNPN Telephone (NIQ) BRITTNEY ALCOCER ([id number]) 1975 F NFR Date Time Provider Department 03/05/24 CRISTOBAL OTOOLE During your visit today, we recorded the following information about you: Leslye Welsh 03/05/2024 9:12 AM Signed INFUSION SCHEDULING Name of caller : Brittney Alcocer Relationship to patient : Self If not self Will need patient permission to release results or disclose health information with called documented in . Was permission obtained from patient ? Yes Patient identified by Name and Date of . ( Brittney Alcocer, 1975). Yes Last office visit 12/11/23 with deborah teixeira Did you discuss infusions during the visit: Type of Infusion Requested by Patient : If Vyepti, is there a referral : Number to return call : [phone] Okay to leave a message ? Yes [...] seizure [Z87.898] (more content not included)... Normal [facility] CNPNon 02-28-2024 CNPN Telephone (NHMNS2) BRITTNEY ALCOCER ([id number]) 1975 F NFR Date Time Provider Department 02/28/24 YENNY OSMAN HIMNS2 During your visit today, we recorded the following information about you: Leah Mathew MA 02/28/2024 10:05 AM Signed If [employer] has not replied to your request within 24 hours please contact [employer] at (TTY ). BRITTNEY ALCOCER (Louise: [id number]) PA Drug Nurtec 75MG dispersible tablets [facility] cloud logo Form [place] Medicaid Cinsay Electronic PA Form (2016 [facility]) LANDRY [place] Latonya J, MA 02/29/2024 2:02 PM Signed BRITTNEY ALCOCER (Louise: [id number]) [place] Drug Nurtec 75MG dispersible tablets Approved on February 27 by [place] [employer] 2016 Your PA request for [id number] was approved for 180 days. The PA# assigned is [id number]. Authorization Expiration Date: 08/24/2024 Leah Mathew MA [...] [1693] Oswaldo/Rupinder/Jolie ell [Other] Prescriptions as of 04/02/2024 [...] radiculopathy, lum* (more content not included)... Normal [facility] Office Visiton 02-28-2024 Follow-up visit [id number] Brittney Alcocer 1975 F Date Provider Department Center 02/28/2024 16089-[facility]PTRENT [facility] None No family history on file Level of Service:70742 MO OFFICE/OUTPATIENT NEW LOW MDM 30 MINUTES Reason for Visit and Comments: New Patient [542] - Left ring finger injury Normal [facility] Progress Noteon 02-28-2024 Progress Note [facility] [address] [place] [address] [place] [address] Dept: [phone] Dept 02/28/2024 Chief Complaint Patient presents with [...] phalanx of left ring finger, initial encounter [facility] Orthopedics - [facility] PLAN I discussed with Brittney the natural [...] also give (more content not included)... Normal [facility] ED Nursing Noteon 02-22-2024 ED Nursing Note Ice applied to left hand. Normal [facility] ED Nursing Note Patient to room 2 wi th c/o left hand fourth digit pain after her dog took off while she was holding the lease. V/S obtained, call light within reach. Normal [facility] ED Provider Noteon ED Provider Note EMERGENCY [...] considered: I Monique Palma MD am the primary class teacher of record. FINAL IMPRESSION 1. Closed nondisplaced fracture of distal phalanx of left ring finger, initial encounter DISPOSITION Discharge 02/22/2024 05:45:24 PM PATIENT REFERRED TO: [facility] Orthopedics and Sports Medicine - [address] [address] 33 (more content not included)... Normal [facility] L/S Spine Min 4 Viewson 02-05 L/S Spine Min 4 Views [facility] Radiology [address] [place] [address] L/S Spine Min 4 Views MR#: [id number] Acct: [id number] Name: BRITTNEY ALCOCER Rep #: [id number] : 1975 F 49 From: Suresh Menjivar MD PCP: GILA Baptiste Status: DEP AMB Study: L/S Spine Min 4 Views Date of Exam: 02/22/24 Exam# [id number] Ordering Dr: Brit Ramsey [id number] STUDY: X-RAY - LUMBAR SPINE REASON FOR [...] EST , CC: GILA Otoole; SHAHZAD Caal Car Rental Manager: Signed [facility] No Panel Informationon 02-21 Monique Palma MD 02/22/2024 5:56 PM Splint Application Performed by: Monique Palma MD Authorized by: Monique Palma MD Consent: Consent obtained: Verbal [place] protocol: Patient identity confirmed: Verbally with patient [...] Procedure completion: Tolerated Post-procedure imaging: not applicable [facility] Orthopedic Visit Reporton Orthopedic Visit Report [facility] [facility] [address] [place] [address] OFFICE VISIT Date of Service: 02/22/24 MR#: [id number] Acct: [id number] Name: BRITTNEY ALCOCER Rep #: [id number] 1 : 1975 Provider: SHAHZAD Caal Age/Sex: 49/F Location: [facility] [place] Status: Signed Intake Vital Signs 11/08/23 19:41 [...] service provided and the decisions made by , SHAHZAD Caal 02/22/24 0759. Part of today???s [...] used to (more content not included)... Normal [facility] XR Finger - left 2 Viewson 0 02-22-2024 1. Fracture left ring finger distal phalanx. Report Dictated on Electronically Signed By: Tray Stokes MD Electronically Signed Date/Time: 02/22/2024 5:43 PM [facility] Patient Name: BRITTNEY MORA : [...] osseous and soft tissue structures grossly unremarkable. [facility] Tray Stokes MD - 02/22/2024 Patient Name: BRITTNEY [facility]COCER : 1975 [id number] Exam Date/Time: 02/22/2024 17:20 Procedure: XR FINGERS [...] Electronically Signed Date/Time: 02/22/2024 5:43 PM EST [facility] Radiology Study observation (narrative) [facility] alth XR Finger - left 2 ViewsOrde red By: Tray Stokes on 02-22-2024 [facility] Telephone (LIZET) BRITTNEY ALCOCER ([id number]) 1975 F NFR Date Time Provider Department 02/19/24 CRISTOBAL OTOOLE During your visit today, we recorded the following information about you: Ceasar Duncan MA 02/19/2024 7:20 AM Signed Received fax from [facility] requesting PT orders to be signed. Placed in red folder. Ceasar Duncan MA Cristobal Otoole APRN.ERENDIRA 02/19/2024 5:26 PM Signed Thank you, form is completed and signed. Cristobal Otoole APRN.ERENDIRA Ceasar Duncan MA 02/20/2024 7:29 AM Signed [...] sciatica [M54 (more content not included)... 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 Hypertriglyceridemia Hypoactive thyroid Insomnia Marijuana smoker helps with migraines Migraine with aura, without mention of intractable migraine without mention of status migrainosus daily Pelvic pain in female Short-term memory loss 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 Normal [facility] BRITT[facility] ALCOCER ([id number]) 1975 F NFR Date Time Provider Department [...] left message requesting patient call office back. [employer] message also sent. Camille Espinoza MA Allergies [...] Visit: Patient Question [1477] Prescriptions as of 02/29/2024 - rimegepant (NURTEC [...] left-sided sc (more content not included)... Normal [facility] Progress Noteon 02-18-2024 Progress Note [facility] Flattr [facility] [place] [address] [place] [address] Dept: [phone] Dept PHYSICAL THERAPY RE-EVALUATION Patient Name: Petar [...] 5 Wrist Extension 5 5 RHD Dynamometer [employer] Strength Testing (measured in lbs.) Date 02/18/2024 R L Full [employer] 45# 55# Tip Pinch 10# 10# Keyfob [employer] 16.5# 15# Tripod 10# 12# Scapular Strength [...] L ar (more content not included)... Normal [facility] XR SHLDR >/=3V AP/SANYA AP/OTH R RTon [...] abnormality. Low-lying acromion and mild acromioclavicular arthrosis. Car Rental Manager: YARELI Transcribe Date/Time: Feb 18 2024 11:16A Dictated by : Viri PECK MD This examination was interpreted and the report reviewed and electronically signed by: Viri PECK MD on Feb 18 2024 11:20AM EST [id number] Normal [facility] Progress Noteon 02-14-2024 Progress Note [facility] AT [facility] [place] [place] [address] [place] [address] Dept: [phone] Dept PHYSICAL THERAPY TREATMENT Patient Name: Petar [...] Entry: 10 Linda Randle, PT, DPT ,NCS [facility] Progress Noteon 02-08-2024 Progress Note [facility] THERAPY AT [facility] [place] [place] [address] [facility] [address] Dept: [phone] Dept PHYSICAL THERAPY TREATMENT Patient Name: Petar [...] Entry: 10 Linda Randle, PT, DPT, NCS Normal [facility] Progress Noteon 02-04-2024 Progress Note [facility] THERAPY AT [facility] [address] [facility] A [facility] [address] Dept: [phone] Dept PHYSICAL THERAPY TREATMENT Patient Name: Petar [...] Treatment Time Start Time: 834 Stop Time: 0900 Time Calculation (min): 25 min PT Therapeutic Procedures Time Entry Therapeutic Activity Time Entry: 13 Manual Therapy Time Entry: 10 Cherelle Valerio PTA [facility] Progress Noteon 01-31-2024 Progress Note [facility] THERAPY AT [facility] [place] [address] [facility] [address] Dept: [phone] Dept PHYSICAL THERAPY TREATMENT Patient Name: Petar [...] trap, cervical PVM Body Position: Supine Comments: [facility] Home Exercise Program: Deferred Assessment Skilled physical [...] Time Entry Total Treatment Time Start Time: 829 Stop Time: 899 Time Calculation (min): 30 min PT Therapeutic Procedures Time Entry Therapeutic Activity Time Entry: 13 Manual Therapy Time Entry: 15 [facility] CN Office Visit (UCWSTR ) BRITTNEY ALCOCER ([id number]) 1975 F NFR Date Time Provider Department 01/25/24 1:15 PM KEVIN BALDWIN [facility] During your visit today, we recorded the following information about you: Temperature Pulse Respiration Blood pressure 97.3 degrees 68/minute 20/minute 120/79 Weight 82 kg Kevin Baldwin PA-C 01/25/2024 2:26 PM Signed This note was created using real5Driter. 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 [...] Units OTHER q 3 MONTHS Queenie Sparks APRN.POLISHER HAND 200 Units at 03/09/23 1030 PAST SURGICAL [...] left wris (more content not included)... Normal [facility] Progress Noteon 01-24-2024 Progress Note [facility]ALTH THERAPY AT [place] [place] [address] [facility] [address] Dept: [phone] Dept PHYSICAL THERAPY TREATMENT Patient Name: Petar [...] 19 Linda Randle, PT, DPT, NCS Normal [facility] Progress Noteon 01-21-2024 Progress Note [facility] THERAPY AT [facility] [address] [place] [address] Dept: [phone] Dept PHYSICAL THERAPY TREATMENT Patient Name: Petar [...] Therapy Time Entry: 18 Lindsey Mcgregor PTA [facility] Progress Noteon 01-17-2024 Progress Note [facility] THERAPY AT [facility] [place] [address] [place] [address] A [facility] [address] Dept: [phone] Dept PHYSICAL THERAPY TREATMENT Patient Name: Petar [...] Therapy Time Entry: 8 [facility]oyola [facility] Telephone (LIZET) BRITTNEY ALCOCER ([id number]) 1975 F NFR Date Time Provider Department 01/11/24 CRISTOBAL OTOOLE During your visit today, we recorded the following information about you: Ceasar Duncan MA 01/11/2024 7:46 AM Signed Received fax from [facility] requesting signature for insurance coverage. Placed in red folder. LANDRY Chaparro Kristin C, APRN.ERENDIRA 01/11/2024 8:29 AM Signed Thank you, form is completed and signed. Cristobal Otoole APRN.ERENDIRA Duncan CeasarLANDRY 01/11/2024 9:26 AM Signed Faxed. Placed in [...] st*01/12/2017 Int (more content not included)... 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 No DASIA and reports that she has a hx of migraines. 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 Normal [facility] Progress Noteon 01-07-2024 Progress Note [facility] THERAPY AT [facility] [place] [address] [facility] [address] Dept: [phone] Dept PHYSICAL THERAPY RE-EVALUATION/DISCHARGE Patient Name: Petar [...] them. Pain: Current: 5/10 Best: 4/10 Worst: 10/10; reports 40 Outcome Measures Foot and Ankle [...] 30 seconds R SLS= 18 seconds Assessment Petar is a 48 y.o. patient [...] 30 Linda Randle, PT, DPT, NCS Normal [facility] Progress Noteon 01-02-2024 Progress [facility] [place] [place] [address] [place] [address] Dept: [phone] Dept PHYSICAL THERAPY TREATMENT Patient Name: Petar [...] Therapeutic Exercise Time Entry: Cherelle Valerio PTA [facility] 01-01-2024 [facility] Office Visit (GSTNOR ) BRITTNEY ALCOCER ([id number]) 1975 F NFR Date Time Provider Department 01/01/24 8:25 AM SNOW QUICK During your visit today, we recorded the following information about you: Blood pressure Weight Height 102/66 81.8 kg 1.473 m Snow Quick PA-C 01/01/2024 8:35 AM Signed CHIEF COMPLAINT: Patient presents with: Procedure Follow Up: Review EGD, c/o epigastric pain HPI Brittney Minehart is a 48 year old female here [...] daily. fremanezumab-vfrm subcutaneus auto-injector 225 mg/1.5 mL (Audio ShackOVY) Inject 1.5 mL subcutaneously once every month. [...] Reactions Ci (more content not included)... Normal [facility] CNPNon 12-31-2023 [facility] Telephone (LIZET) BRITTNEY ALCOCER ([id number]) 1975 F NFR Date Time Provider Department 12/31/23 CRISTOBAL OTOOLE During your visit today, we recorded the following information about you: Ceasar Duncan MA 12/31/2023 7:22 AM Signed ----- Message from Cristobal Otoole APRN.POLISHER HAND sent at 12/30/2023 10:57 PM EST ----- Please notify patient results are normal. Thank you. Cristobal Otoole APRN.POLISHER HAND Amy Ng MA 12/31/2023 9:38 AM Signed Patient is informed Amy Ng MA Allergies As of Date: 12/31/2023 Noted [...] intervertebral d (more content not included)... Normal [facility] CNPN Telephone (AGFAMPLE) BRITTNEY ALCOCER ([id number]) 1975 F NFR Date Time Provider Department 12/31/23 CRISTOBAL OTOOLE During your visit today, we recorded the following information about you: Ceasar Duncan MA 12/31/2023 7:23 AM Signed ----- Message from Cristobal Otoole APRN.POLISHER HAND sent at 12/30/2023 10:57 PM EST ----- Please notify patient results are normal. Thank you. Cristobal Otoole APRN.Amy Lozada MA 12/31/2023 9:38 AM Signed Patient is informed Amy Ng MA Allergies As of Date: 12/31/2023 Noted [...] intervertebral d (more content not included)... Normal [facility] CNPN Telephone (LIZET) BRITTNEY ALCOCER ([id number]) 1975 F NFR Date Time Provider Department [...] Cmt: Pt wants EMG order faxed to [place] Prescriptions as of 12/31/2023 - diclofenac, EC, [...] [R55] 0 (more content not included)... Normal [facility] Progress Noteon 12-31-2023 Progress Note [facility] Vivo [facility] THERAPY AT [facility] [address] [place] [address] Dept: [phone] Dept PHYSICAL THERAPY TREATMENT Patient Name: Petar [...] Time Entry Therapeutic Exercise Time Entry: 25 Serg Sinha PTA Normal [facility] CBC panel Auto (Bld)on 12-27 Erythrocyte distribution width (RBC) [Ratio] 12.9 % Normal 11.5-15.0 [facility] Comment on above: Order Comment: Speci men Type: BLOOD SPECIMENOrdering Facility: [facility] Address: [address] [place] [address] Performed By: #### 5 8410-2 ####[facility] LABCLIA [id number] [place] [address] [facility] Hematocrit (Bld) [Volume fraction] 46.1 % High 36.0-46.0 [facility] Comment on above: Order Comment: Speci men Type: BLOOD SPECIMENOrdering Facility: [facility] Address: [address] [place] [address] Performed By: #### 5 8410-2 ####[facility] LABCLIA [id number] [place] [address] [facility] Hemoglobin (Bld) [Mass/Vol] 15.1 g/dL Normal 11.5-15.5 [facility] Comment on above: Order Comment: Speci men Type: BLOOD SPECIMENOrdering Facility: [facility] Address: [address] [place] [address] Performed By: #### 5 8410-2 ####[facility] LABCLIA [id number] [address] MCH (RBC) [Entitic mass] 32.0 pg Normal 26.0-34.0 [facility] Comment on above: Order Comment: Speci men Type: BLOOD SPECIMENOrdering Facility: [facility] Address: [address] [place] [address] Performed By: #### 5 8410-2 ####[facility] LABCLIA [id number] [place] [address] [place] MCHC (RBC) [Mass/Vol] 32.8 g/dL Normal 30.5-36.0 [facility] Comment on above: Order Comment: Speci men Type: BLOOD SPECIMENOrdering Facility: [facility] Address: [address] [place] [address] Performed By: #### 5 8410-2 ####[facility] LABCLIA [id number] [place] [id number] [facility] MCV (RBC) [Entitic vol] 97.7 fL Normal 80.0-100.0 [facility] Comment on above: Order Comment: Speci men Type: BLOOD SPECIMENOrdering Facility: [facility] Address: [address] [place] [id number] Performed By: #### 5 8410-2 ####[facility] [place] LABCLIA [id number] [place] [address] [place] Platelet mean volume (Bld) [Entitic vol] 10.2 fL Normal 9.0-12.7 [facility] Comment on above: Order Comment: Speci men Type: BLOOD SPECIMENOrdering Facility: [facility] Address: [address] [place] [address] Performed By: #### 5 8410-2 ####[facility] [place] LABCLIA [id number] [place] [address] [place] Platelets (Bld) [#/Vol] 243 10*3/uL Normal 150-400 [facility] Comment on above: Order Comment: Speci men Type: BLOOD SPECIMENOrdering Facility: [facility] Address: [address] [place] [address] Performed By: #### 5 8410-2 ####[facility] LABCLIA [id number] [facility] [place] [address] [place] RBC (Bld) [#/Vol] 4.72 10*6/uL Normal 3.90-5.20 [facility] Comment on above: Order Comment: Speci men Type: BLOOD SPECIMENOrdering Facility: [facility] Address: [address] [place] [address] Performed By: #### 5 8410-2 ####[facility] [place] LABCLIA [id number] [place] [address] [place] WBC (Bld) [#/Vol] 6.99 10*3/uL Normal 3.70-11.00 [facility] Comment on above: Order Comment: Speci men Type: BLOOD SPECIMENOrdering Facility: [facility] Address: [address] [place] [address] Performed By: #### 5 8410-2 ####[facility] [place] LABCLIA [id number] [place] [address] [facility] CNOVon 12-28-2023 CNOV Office Visit (JAYLEEN MOODY) BRITTNEY ALCOCER ([id number]) 1975 F NFR Date Time Provider Department 12/28/23 3:00 PM CRISTOBAL OTOOLE During your visit today, we recorded the following information about you: Temperature Pulse Blood pressure Weight 98 degrees 76/minute 100/64 82.1 kg Height 1.473 m Cristobal Otoole, SANAM.POLISHER HAND 01/20/2024 8:34 PM Signed Subjective Brittney Alcocer [...] obstruction occasional bleeding GERD (gastroesophageal reflux disease) 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 Normal [facility] Comprehensive metabolic 2000 panelon 12-28-2023 Albumin [Mass/Vol] 4.5 g/dL Normal 3.9-4.9 [facility] Comment on above: Order Comment: Speci men Type: BLOOD SPECIMENOrdering Facility: [facility] Address: [address] [place] [address] Performed By: #### 3 016-3, 50675-1 ####[facility] LABCLIA [id number] [place], [place] [id number] [place] [address] OF [facility] ALP [Catalytic activity/Vol] 116 U/L Normal 34-123 [facility] Comment on above: Order Comment: Speci men Type: BLOOD SPECIMENOrdering Facility: [facility] Address: [address] [place] [address] Performed By: #### 3 016-3, 63707-4 ####[facility] LABCLIA [id number] [place] [address] [place] [facility] ALT With P-5'-P [Catalytic activity/Vol] 16 U/L Normal 7-38 [facility] Comment on above: Order Comment: Speci men Type: BLOOD SPECIMENOrdering Facility: [facility] Address: [address] [place] [address] Performed By: #### 3 016-3, 52165-2 ####[facility] [place] LABCLIA [id number] [place] [address] [place] Anion gap [Moles/Vol] 9 mmol/L Normal 8-15 [facility] Comment on above: Order Comment: Speci men Type: BLOOD SPECIMENOrdering Facility: [facility] Address: [address] [place] [address] Performed By: #### 3 016-3, 60874-7 ####[facility] [place] LABCLIA [id number] [place] [address] [place] AST With P-5'-P [Catalytic activity/Vol] 17 U/L Normal 13-35 [facility] Comment on above: Order Comment: Speci men Type: BLOOD SPECIMENOrdering Facility: [facility] Address: [address] [place] [address] Performed By: #### 3 016-3, 42700-9 ####[facility] [place] LABCLIA [id number] [place] [address] [place] Bilirubin [Mass/Vol] 0.4 mg/dL Normal 0.2-1.3 [facility] Comment on above: Order Comment: Speci men Type: BLOOD SPECIMENOrdering Facility: [facility] Address: [address] [place] [address] Performed By: #### 3 016-3, 16889-1 ####[facility] [place] LABCLIA [id number] [place] [address] [place] Calcium [Mass/Vol] 9.7 mg/dL Normal 8.5-10.2 [facility] Comment on above: Order Comment: Speci men Type: BLOOD SPECIMENOrdering Facility: [facility] Address: [address] [place] [address] Performed By: #### 3 016-3, 78447-5 ####[facility] [place] LABCLIA [id number] [place] [address] [place] Chloride [Moles/Vol] 106 mmol/L Normal 98-107 [facility] Comment on above: Order Comment: Speci men Type: BLOOD SPECIMENOrdering Facility: [facility] Address: [address] [place] [address] Performed By: #### 3 016-3, 20154-0 ####[facility] LABCLIA [id number] [place] [address] [facility] [place] CO2 [Moles/Vol] 27 mmol/L Normal 22-30 [facility] Comment on above: Order Comment: Speci men Type: BLOOD SPECIMENOrdering Facility: [facility] Address: [address] [place] [address] Performed By: #### 3 016-3, 47581-0 ####[facility] LABCLIA [id number] [place] [address] [facility] Creatinine [Mass/Vol] 0.82 mg/dL Normal 0.58-0.96 [facility] Comment on above: Order Comment: Speci men Type: BLOOD SPECIMENOrdering Facility: [facility] Address: [address] [place] [address] Performed By: #### 3 016-3, 28226-7 ####[facility] LABCLIA [id number] [place] [address] [facility] Creatinine and Glomerular filtration rate.predicted panel (S/P/Bld) 88 mL/min/1.73m??? Normal >=60 [facility] Comment on above: Order Comment: Speci men Type: BLOOD SPECIMENOrdering Facility: [facility] Address: [address] [place] [address] Result Comment: Katelyn mated Glomerular Filtration Rate [...] actual GFR. Performed By: #### 3 016-3, 35723-2 ####[facility] [employer] LABCLIA [id number] [place] [address] [place] Glucose [Mass/Vol] 91 mg/dL Normal 74-99 [facility] Comment on above: Order Comment: Julisa stein Type: BLOOD SPECIMENOrdering Facility: [facility] Address: [address] [place] [address] Result Comment: The [place] Diabetes Association (ADA) provides guidance for cutoff [...] Standards of Medical Care in Diabetes 2016, [place] Diabetes Association. Diabetes Care. 2016.39(Suppl 1). Performed By: #### 3 016-3, 02055-2 ####[facility] [employer] LABCLIA [id number] [place] [address] [place] Potassium [Moles/Vol] 4.1 mmol/L Normal 3.7-5.1 [facility] Comment on above: Order Comment: Julisa stein Type: BLOOD SPECIMENOrdering Facility: [facility] Address: [address] [place] [address] Performed By: #### 3 016-3, 45515-5 ####[facility] [employer] LABIA [id number] [place] [address] [place] Protein [Mass/Vol] 7.5 g/dL Normal 6.3-8.0 [facility] Comment on above: Order Comment: Julisa stein Type: BLOOD SPECIMENOrdering Facility: [facility] Address: [address] [place] [address] Performed By: #### 3 016-3, 62981-4 ####[facility] LABCLIA [id number] [place] [address] [place] Sodium [Moles/Vol] 142 mmol/L Normal 136-144 [facility] Comment on above: Order Comment: Speci men Type: BLOOD SPECIMENOrdering Facility: [facility] Address: [address] [place] [address] Performed By: #### 3 016-3, 74193-2 ####[facility] LABCLIA [id number] [place] [address] [place] Urea nitrogen [Mass/Vol] 13 mg/dL Normal 7-21 [facility] Comment on above: Order Comment: Speci men Type: BLOOD SPECIMENOrdering Facility: [facility] Address: [address] [place] [address] Performed By: #### 3 016-3, 84134-1 ####[facility] LABCLIA [id number] [place] [address] [place] TSH SerPl-aCncon 12-28-2023 TSH Qn 2.400 m[IU]/L Normal 0.270-4.200 [facility] Comment on above: Order Comment: Speci men Type: BLOOD SPECIMENOrdering Facility: [facility] Address: [address] [place] [address] Result Comment: If t he patient is , TSH reference range varies by gestational period: First Trimester (weeks 9-12): 0.180-2.990 mIU/L Second Trimester: 0.110-3.980 mIU/L Third Trimester: 0.480-4.710 mIU/L Venu Nelson et al. A Practical Approach for the Verifications and Determination of Site- and Trimester-Specific Reference Intervals for Thyroid Function tests in . Thyroid, 2019:29:3:412-420. Mac Bender et al. 2017 Guidelines of the [place] Thyroid Association for the Diagnosis and Management of Thyroid Disease during and the . Thyroid, 2017:27:3:315-389. Performed By: #### 3 016-3, 11200-0 ####[facility] LABCLIA [id number] [place] [address] [place] Vit B12 SerPl-mCncon 024 Cobalamin (Vitamin B12) [Mass/Vol] 609 pg/mL Normal 232-1245 [facility] Comment on above: Order Comment: Speci men Type: BLOOD SPECIMENOrdering Facility: [facility] Address: [address] [place] [address] Performed By: #### 2 132-9 ####[facility] LABORATORYCLIA [id number] [place] [address] [facility] XR SHLDR >/=3V AP/SANYA AP/OTH R LTon [...] or dislocation. IMPRESSION: NO ACUTE BONY ABNORMALITY. Car Rental Manager: PSCB Transcribe Date/Time: Dec 30 2023 6:17P Dictated by : TIMO HERNANDEZ MD This examination was interpreted and the report reviewed and electronically signed by: TIMO HERNANDEZ MD on Dec 30 2023 6:20PM EST [id number] Normal [facility] Progress Noteon 12-27-2023 Progress Note [facility] [place] [address] [facility] [address] Dept: [phone] Dept PHYSICAL THERAPY TREATMENT Patient Name: Petar [...] tinea pedis Subjective 08/14. [facility] and I [...] L>R gastroc/plantar fascia Body Position: Prone Comments: [facility] Home Exercise Program: Deferred Assessment Skilled physical [...] Time Entry: 15 Cherelle Valerio PTA Normal [facility] Progress Noteon 12-22-2023 Progress Note [facility] THERAPY AT [facility] [address] [facility] [address] Dept: [phone] Dept PHYSICAL THERAPY TREATMENT Patient Name: Petar [...] Entry: 15 Linda Randle, PT, DPT, NCS Normal [facility] Progress Noteon 12-20-2023 Progress Note [facility] THERAPY AT [place] [address] [place] [address] Dept: [phone] Dept PHYSICAL THERAPY TREATMENT Patient Name: Petar [...] Exercise Time Entry: 25 Lindsey Mcgregor PTA 12-17-2023 CNPN Telephone (MNOPRX) BRITTNEY ALCOCER ([id number]) 1975 F NFR Date Time Provider Department 12/17/23 SUSANA DE SOUZA [facility]OP[facility] During your visit today, we recorded the following information about you: Susana De Souza 12/17/2023 8:39 AM Signed Ambulatory Pharmacy Prior Authorization Note Provider Intervention Required?: No- Pharmacy completed on your behalf. Rx Plan: Medicaid MCO ([facility]) Drug: EMGALITY Cover My Meds Louise: [id number] Determination: Denied PA Denied because: Step therapy [...] (samples are not accepted as trials). The [facility] Policy for Medical Necessity as posted on the [facility] website and [facility] Preferred Drug List criteria were reviewed and per [place] Administrative Code Rule 5160-1-01 (C) and (B), [...] calendar days after the date of notice. [employer] ([employer]) will provide you with an answer to your appeal within fifteen (15) calendar days from the date you contacted us. If you believe fifteen (15) calendar days could seriously jeopardize your life, physical or mental health or ability to attain, maintain, or regain maximum function, contact [facility] Member Services at the number listed below as soon as possible to expedite your review process. You can submit an appeal by: Calling Member Services at (TTY ). Logging into the [employer] ([employer]IE) website and clicking on ?request appeal? at [email or web address]. Mailing the form attached to this letter and all additional documentation or information to: Attn: [employer] [address] [place] [address] Your appeal must contain: Your full name and member ID number. Your prescriber?s name. Name of medication or Durable Medical Equipment (DME) product. The reason you disagree with the outcome provided by [employer]. Any additional documentation or information to support your request to have the decision changed. If we do not change our decision as a result of your appeal, you will be notified of your right to request a state hearing. If you would like to request a state hearing, you or your authorized personnel representative must submit a request within ninety (90) calendar days of the notification date of your denied appeal. You must complete the [employer] ([employer]) appeal process before you are able to [...] request a continuation of services by calling [employer] Member Services toll-free at [phone] (TTY ) or submitting an online request for this information via your member portal at [email or web address]. Please contact your prescriber or [employer] Member Services by calling our toll-free number at (TTY ) if you have any question about the information listed above. More information regarding your appeal and state hearing rights is available in your Member Handbook which is located on the Member portal at [email or web address]. Sincerely, [employer] Prior Auth (more content not included)... [facility] MARIYABRITTNEY Mukherjee ([id number]) 1975 F NFR Date Time Provider Department 12/17/23 DEBORAH TEIXEIRA NHMNS2 During your visit today, we recorded [...] Diclofenac (Voltaren, Cataflam, Cambia) Hydrocodone/Acetaminoph en (Vicodin, Gladstone) Indomethacin (Indocin) Ketorolac (Toradol) Tramadol (Ultram) celebrex Anti-Anxiety Alprazolam (Xanax, Niravam) Anti-Migraine Naratriptan (Amerge) Rizatriptan (Maxalt) Sumatriptan (Imitrex, Sumavel) raised blood pressure cannot use triptans - H/O TIA and MD GEPANTS Rimegepant (Nurtec) Over the Counter Medications Acetaminophen (Tylenol) Ibuprofen (Advil, Motrin) Brandon MITCHELL, RN RN Clinical Cafeteria Cashier [facility] Oneil Lewis RN 12/17/2023 12:23 PM Signed PA submitted via [employer]. Kenton Alcocer (Louise: [id number]) [facility] [employer] has not yet replied to your PA request. You may close this dialog, return to your dashboard, and perform other tasks. To check for an update later, open this request again from your dashboard. If [facility] has not replied to your request within 24 hours please contact [facility] at . Brandon MITCHELL RN RN Clinical Cafeteria Cashier [facility] Oneil Lewis RN 12/17/2023 2:12 PM Signed Brittney Alcocer (Louise: [id number]) This request has received a Favorable outcome. Approved today by [employer] ([employer]IE[employer] Medicaid 2017 Your PA request for [id number] was approved for 180 days. The PA# assigned is [id number]. Authorization Expiration Date: 06/12/2024 Pt called and notified. Brandon MITCHELL RN RN Clinical Cafeteria Cashier [facility] Deborah Teixeira PA-C 12/17/2023 [...] Signed Sent PA approval to patient in [facility] - also set up recall letter to deliver at later date Allergies As of Date: 12/17/2023 Noted Allergy Reaction CITALOPRAM HYDROBROMIDE 10/27/2004 10 - Anaphylaxis Comments: TACHYCARDIA MORPHINE 01/26/2005 8 - GI Upset AMOXICILLIN 10/24/2004 8 - GI Upset 14 - Other: See Comments Comments: Makes (more content not included)... Normal [facility] Progress Noteon 12-15-2023 Progress Note [facility] THERAPY AT [place] [address] [address] [facility] [address] Dept: [phone] Dept PHYSICAL THERAPY TREATMENT Patient Name: Petar [...] Procedures Time Entry Therapeutic Exercise Time Entry: Kalpesh Dumont PTA [facility] Progress Noteon 12-13-2023 Progress Note [facility] [address] [facility] [address] Dept: [phone] Dept PHYSICAL THERAPY TREATMENT Patient Name: Petar [...] surface of L foot, tinea pedis Subjective 05/15. I am in the process of moving, [...] Activity Time Entry: 8 Cherelle Valerio PTA [facility] CNOVon 12-12-2023 [facility] Office Visit (NHFB) BRITTNEY ALCOCER ([id number]) 1975 F NFR Date Time Provider Department 12/12/23 10:00 AM YENNY OSMAN [facility] During your visit today, we recorded the following information about you: Pulse Blood pressure Weight Height 80/minute 101/62 81.2 kg 1.473 m Yenny Osman, SANAM.POLISHER HAND 12/12/2023 10:35 AM Signed Headache Center Follow-up [...] Diclofenac (Voltaren, Cataflam, Cambia) Hydrocodone/Acetaminoph en (Vicodin, Gladstone) Indomethacin (Indocin) Ketorolac (Toradol) Tramadol (Ultram) celebrex Anti-Anxiety Alprazolam (Xanax, Niravam) Anti-Migraine Naratriptan (Amerge) Rizatriptan (Maxalt) Sumatriptan (Imitrex, Sumavel) raised blood pressure cannot use triptans - H/O TIA and MD GEPANTS Rimegepant (Nurtec) Over the Counter Medications [...] 02/09/2023 07/12/202311/13 (more content not included)... Normal [facility] CNOVon 12-11-2023 CNOV Office Visit (NHMNS2 ) BRITTNEY ALCOCER ([id number]) 1975 F NFR Date Time Provider Department 12/11/23 1:00 PM DEBORAH TEIXEIRA HIMNS2 During your visit today, we recorded the following information about you: Deborah Teixeira PA-C 12/11/2023 8:53 AM Signed [facility]: [phone] Licensed in [place], [place], [place], [place], [place], [place], [place], [place], [place], [place] and [facility] Start emgality once monthly Deborah Teixeira PA-C [...] Lymph 1.00 - 4.00 k/uL 1.17 Abs Jessamine <0.87 k/uL 0.54 Abs Eosin <0.46 k/uL [...] 120 tabletRfl: 5 mirabegron (MYRBETRIQ) 50 mg [id number] 1 tablet by mouth once daily.Disp: 30 [...] spontaneous and fluent without dysarthria. Short and continuous churn buttermaker memory, cognition and general fund of knowledge are good. Attention span and concentration are excellent. Cranial Nerves: VII-face is symmetric without evidence of weakness. VIII-hearing intact. Assessment: (G43.719) Chronic migraine without aura, intractable, without status migrainosus (primary encounter diagnosis) Plan: Brittney Alcocer is a 48 year old year old female, with a history of chronic migraine, stroke, MD,chronic pain syndrome, TMJD, concussion, peptic ulcer, hypothyroid, [...] migraine wit (more content not included)... Normal [facility] CNOVon 12-07-2023 CNOV Office Visit (NHMNS2 ) BRITTNEY ALCOCER ([id number]) 1975 F NFR Date Time Provider Department 12/07/23 8:00 AM PAULINO RAE NHMNS2 During your visit today, we recorded [...] factors: History of a stroke 1998 and MD 1998 with cocaine overdose, hyperlipidemia Triptan dose [...] Lymph 1.00 - 4.00 k/uL 1.17 Abs Jessamine <0.87 k/uL 0.54 Abs Eosin <0.46 k/uL [...] 120 tabletRfl: 5 mirabegron (MYRBETRIQ) 50 mg [id number] 1 tablet by mouth once daily.Disp: 30 [...] and clear, coherent, and relevant. Short and continuous churn buttermaker memory, cognition and general fund of knowledge are good. Attention span and concentration are excellent. Cranial Nerves: VII-face is symmetric without evidence of weakness. VIII-hearing intact. Assessment: (G43.719) Chronic migraine without aura, intractable, without status migrainosus (primary encounter diagnosis) Plan: Brittney Alcocer is a 48 year old year old female, with a history of History of a stroke 1998 and MD 1998 with cocaine overdose following up today [...] which included preparing to see the patient, sgyd-cy-uyng patient care, completing clinical documentation, obtaining and/or reviewing separately obtained his (more content not included)... Normal [facility] Progress Noteon 12-05-2023 Progress Note [facility] THERAPY AT [place] [address] [facility] [address] [facility] [address] Dept: [phone] Dept PHYSICAL THERAPY RE-EVALUATION Patient Name: Petar [...] after prolonged standing. Pain: Current: 4/10 Best: 410 Worst: 10 Symptoms Aggravated by: extended standing, donning shoes/socks, [...] activity. Risks (more content not included)... Normal [facility] Progress Noteon 11-28-2023 Progress Note [facility] THERAPY AT [place] [address] [facility] [address] Dept: [phone] Dept PHYSICAL THERAPY TREATMENT Patient Name: Petar [...] surface of L foot, tinea pedis Subjective 10. I am sore today, it was sore [...] Location: L gastroc Body Position: Prone Comments: [facility] Home Exercise Program: Progressed home exercise program [...] Therapy Time Entry: 15 Cherelle Valerio PTA [facility] Progress Noteon 11-26-2023 Progress Note [facility] [address] [facility] [address] Dept: [phone] Dept PHYSICAL THERAPY TREATMENT Patient Name: Petar [...] of deep peroneal nerve Patient Preferences: Star Fercho/Red Flags: Yes medical precautions: bipolar disorder, Hx [...] 10 Manual Therapy Time Entry: 15 Cherelle Valerio, ELAN Normal [facility] Progress Noteon 11-21-2023 Progress Note [facility] THERAPY AT [facility] [address] [place] [address] Dept: [phone] Dept PHYSICAL THERAPY TREATMENT Patient Name: Petar [...] Treatment Time Start Time: 0900 Stop Time: 0930 Time Calculation (min): 30 min PT Therapeutic Procedures Time Entry Therapeutic Exercise Time Entry: 10 Manual Therapy Time Entry: 20 Linda Randle, PT, DPT, NCS [facility] Progress Noteon 11-19-2023 Progress Note [facility] [address] [place] [address] Dept: [phone] Dept PHYSICAL THERAPY TREATMENT Patient Name: Petar [...] Therapy Time Entry: 10 Cherelle Valerio PTA [facility] CNPNon 11-14-2023 [facility] Telephone (NHMNS2) BRITTNEY ALCOCER ([id number]) 1975 F NFR Date Time Provider Department 11/14/23 MARISOL JIMENEZ HIMNS2 During your visit today, we recorded the following information about you: Jailene Ny 11/14/2023 5:20 PM Signed Left detail voicemail for patient to call us back so we can schedule infusions per providers message. Message Received: Today Marisol Jimenez APRN.POLISHER HAND P Headache Infusion Scheduling Pool Schedule for [...] Date Reviewed: 11/14/2023 Reviewed by: Marisol Jimenez APRN.POLISHER HAND - Fully Assessed Reason for Visit: Infusion [...] [G25.81] 07/02/2018 (more content not included)... Normal [facility] Telephone (NIQ) BRITTNEY ALCOCER ([id number]) 1975 F NFR Date Time Provider Department 11/14/23 YENNY OSMAN During your visit today, we [...] wart o (more content not included)... Normal [facility] Progress Noteon 11-14-2023 Progress Note [facility] AT [place] [facility] [address] [place] [address] Dept: [phone] Dept PHYSICAL THERAPY TREATMENT Patient Name: Petar [...] Therapeutic Exercise Therapeutic Exercise Activity 6: hello [employer] Activity 6 Comment: 5x Therapeutic Exercise Activity [...] Therapy Time Entry: 10 Cherelle Valerio PTA [facility] Emergency Department Summary on 11-08-2023 Emergency Department Summary [facility] Medical Records Department [address] [place] [address] Emergency Department Summary 11/08/23 MR#: [id number] Acct: [id number] Name: BRITTNEY ALCOCER Rep #: [id number] : 1975 48 From: Elmer Nelson MD PCP: GILA Baptiste Status:DEP ER Location: ED HPI History of Present Illness Chief Complaint: Wound Check Narrative Narrative: Patient is a 48-year-old female with history of CAD, MD, who presents to the emergency department with [...] here for evaluation. Denies any specific redness. [facility] Medical History Carpal tunnel syndrome Depression Diverticulosis [...] redness o (more content not included)... Normal [facility] Progress Noteon 10-31-2023 Progress Note [facility] [address] [facility] [address] [facility] [address] Dept: [phone] Dept PHYSICAL THERAPY EVALUATION Patient Name: Petar [...] was about a week ago. 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 PSHX: Petar has no past [...] L gastroc Flexibility: Gastroc limited moderately Assessment Star is a 48 y.o. patient [...] elements, and cli (more content not included)... 10-05-2023 CNPN Telephone (UCWSTR) BRITTNEY ALCOCER ([id number]) 1975 F NFR Date Time Provider Department 10/05/23 KATHERINE MA [facility] During your visit today, we recorded the [...] not refract (more content not included)... Normal [facility] CNPN Telephone (UCWSTR) BRITTNEY ALCOCER ([id number]) 1975 F NFR Date Time Provider Department 10/05/23 [facility] During your visit today, we recorded the following information about you: Cyn Benjamin MA 10/05/2023 5:07 PM Signed ----- Message from Laly Magallon APRN.POLISHER HAND sent at 10/05/2023 12:53 PM EDT ----- Please advise patient the swab was negative for herpes. Laly Magallon APRN.Cny Loera MA 10/05/2023 5:09 PM Signed Patient [...] Auditory godwin (more content not included)... 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 (more content not included)... Normal [facility] HSV+VZV DNA FRIDA+probe Ql (Un sp spec)on 10-04-2023 HSV 1 DNA FRIDA+probe Ql (Unsp spec) Not detected Normal Not Detected [facility] Comment on above: Order Comment: Speci men Type: SWABOrdering Facility: [facility] Address: [address] [place] [address] Performed By: #### 3 3027-4 ####[facility] LABCLIA [id number] [place] [address] [place] HSV 2 DNA FRIDA+probe Ql (Unsp spec) Not detected Normal Not Detected [facility] Comment on above: Order Comment: Speci men Type: SWABOrdering Facility: [facility] Address: [address] [place] [id number] Performed By: #### 3 3027-4 ####[facility] LABIA [id number] [address] [facility] VZV DNA FRIDA+probe Ql (Unsp spec) Not detected Normal Not Detected [facility] Comment on above: Order Comment: Speci men Type: SWABOrdering Facility: [facility] Address: [address] [place] [address] Performed By: #### 3 3027-4 ####[facility] LABIA [id number] [address] Progress Noteon 09-26-2023 Progress Note [facility] THERAPY AT [place] [id number] [facility] [address] Discharge Notification Patient Name: Petar Alcocer : [...] the clinic for clarification. Myrtle Garcia, PT Normal [facility]-2023 CNPN Telephone (NHMNS2) BRITTNEY ALCOCER ([id number]) 1975 F NFR Date Time Provider Department 09/24/23 YENNY OSMAN NHMNS2 During your visit today, we recorded the following information about you: Oneil Lewis RN 09/24/2023 2:07 PM Signed Botox referral sent to pharmacy Brandon MITCHELL, RN RN Clinical Cafeteria Cashier [facility] Allergies As of [...] [E78.1] 03/25/2018 (more content not included)... Normal [facility] Duong 09-19-2023 CNPN Telephone (HIMNS2) MINEHART,BRITTNEY ([id number]) 1975 F NFR Date Time Provider Department 09/19/23 MADDIEAISHAYENNY HSEIKH NHMNS2 During your visit today, we recorded the following information about you: Leah Mathew MA 09/19/2023 10:26 AM Signed Initiated over CMM: [facility] is processing your PA request and will respond shortly with next steps. BRITTNEY ALCOCER (Louise: [id number]) Drug Nurtec 75MG dispersible tablets ePA cloud logo Form [place] Medicaid Cinsay Electronic PA Form ([address] [facility]) Waiting for questions LANDRY [place] Latonya J, MA 09/21/2023 8:28 AM Signed BRITTNEY ALCOCER (Louise: [id number]) [place] Drug Nurtec 75MG dispersible tablets Electronic [...] Assessed Reason for Visit: Insurance Authorization [[id number]] Oswaldoc/Rupinder/Gainw ell [Other] Prescriptions as of 09/21/2023 - [...] pain [R68.84] (more content not included)... 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 NORMAL. Repeat in 10 years. 2016: DILATION AND CURETTAGE DXAND/THER NONOBSTETRIC Comment: Dilation AND curettage X 2 02/25/2010: EGD Comment: Abnormal LES, esophagitis, antral ulcers, retained fluid in stomach, pos H Pylori 04/14/2008: EGD Comment: antral gastritis, neg h Pylori 2021: EGD W/O [facility] SPEC VARICIES INJ 06/29/2021: EGD W/O [facility] SPEC VARICIES INJ No date: LAPAROSCOPY SURG CHOLECYSTECTOMY 2005: PAST SURGICAL HISTORY OF Comment: REMOVAL OF FATTY TUMOR FROM R ARM 2006: PAST SURGICAL HISTORY OF Comment: Carpal Tunnel [...] 60 capsuleRfl: 0 mirabegron (MYRBETRIQ) 50 mg Sy30Suue 1 tablet by mouth once daily.Disp: 30 [...] Onset Hypertension Mother Psychiatry Mother DEPRESSION other (Juneau's Chorea) Mother other (Other) Sister stillborn other (Heart Disease) Maternal Grandfather other (Down Syndrome) Paternal Grandfather other (Sophia's Chorea) Broth (more content not included)... Normal [facility] CNOVon 09-11-2023 CNOV Office Visit (NRHAFSAE ) BRITTNEY ALCOCER ([id number]) 1975 F NFR Date Time Provider Department 09/11/23 4:00 PM YENNY OSAMN During your visit today, we recorded the following information about you: Pulse Blood pressure Weight Height 76/minute 101/67 80.8 kg 1.473 m Yenny Osman APRN.[facility] 09/11/2023 4:31 PM Signed [facility] Follow-up [...] Diclofenac (Voltaren, Cataflam, Cambia) Hydrocodone/Acetaminoph en (Vicodin, Gladstone) Indomethacin (Indocin) Ketorolac (Toradol) Tramadol (Ultram) celebrex Anti-Anxiety Alprazolam (Xanax, Niravam) Anti-Migraine Naratriptan (Amerge) Rizatriptan (Maxalt) Sumatriptan (Imitrex, Sumavel) raised blood pressure cannot use triptans - H/O TIA and MD GEPANTS Rimegepant (Nurtec) Over the Counter Medications [...] Function-Preventive Transforme (more content not included)... Normal [facility] Duong 09-03-2023 SRIKANTH Telephone (LIZET) MARIYABRITTNEY Mukherjee ([id number]) 1975 F NFR Date Time Provider Department 09/03/23 CRISTOBAL OTOOLE During your visit today, we recorded the following information about you: Jamilsangeetaismael CeasarLANDRY 09/03/2023 7:10 AM Signed Please help assist [...] 04/04/2019 PMB (postme (more content not included)... Normal [facility] [id number] 08-28-2023 [id number] HNO ID: [id number] Author: LAURA CAROLINA RN Service: ? Author Type: Registered Nurse Type: [id number] Filed: 08/28/2023 12:11 Note Text: The patient received a copy of EGD discharge instructions that contain information for how to contact the physician who performed the procedure and when to seek medical care. Normal [facility] ANES POSTPROC EVALon 024 ANES POSTPROC EVAL HNO ID: [id number] Author: JAZ GARCIA APRN.CRNA Service: Anesthesiology Author Type: Nurse [employer] Teacher Type: Anesthesia Postprocedure Evaluation Filed: 08/28/2023 12:01 [...] Anesthesia Observations No Documentation SIGNATURE: Jaz Garcia APRN.COLLEGE INTERN PATIENT NAME: Brittney Alcocer DATE: August 28, 2023 TIME: 12:01 PM CSN: [id number] Normal [facility] ANES PREOPon 08-28-2023 ANES PREOP HNO ID: [id number] Author: EDIWN CHEUNG MD Service: Gastroenterology Author Type: Physician Type: Anesthesia PreOp Filed: 08/28/2023 11:39 Note Text: HISTORY AND PHYSICAL Brittney Alcocer, 48 year old female Current history [...] Moderate Additional Comments: None Edwin Cheung MD Normal [facility] NURSING PROGon 08-28-2023 NURSING PROG HNO ID: [id number] Author: LAURA CAROLINA RN Service: ? Author Type: Registered Nurse Type: Nursing Progress Note Filed: 08/28/2023 12:10 Note Text: Hob up. States ready to go. Assisted pt w/dressing. All belongings given. Dr is at the bedside. No questions. Normal [facility] SURGICAL PATHOLOGYon 024 ADDENDUM 1: A and B. Normal [facility] Comment on above: Order Comment: Speci men Type: TISSUE SPECIMENOrdering Facility: [facility] Address: [address] [place] [address] Result Comment: -CMV : Negative -HSV: Negative -GMS: Negative Laboratory Developed Test (LDT) Disclaimer: Performance characteristics of immunohistochemical, immunofluorescent and chromogenic in-situ hybridization tests have been determined by the performing laboratory within [facility]???s [facility] Corbin Pathology and Laboratory Medicine Department ([facility], [facility], [facility], [facility], [facility], [facility], or [facility]) in a manner consistent with CLIA [...] at 4:28 PM Performed By: #### S ####[facility] LABIA [id number] [address] [place] CASE REPORT Normal [facility] Comment on above: Order Comment: Julisa stein Type: TISSUE SPECIMENOrdering Facility: [facility] Address: [address] [place] [address] Result Comment: [facility] Pathology Report Case: [id number] Authorizing Provider: Edwin Cheung MD Collected: 08/28/2023 11:46 AM Ordering Location: Ambulatory Surgery Received: 08/28/2023 07:52 PM Pathologist: Dennis Hernández MD Specimens: A) - Esophagus, Distal, Biopsy B) - Esophagus, Proximal, Biopsy Performed By: #### S ####[facility] LABIA [id number] [address] FINAL DIAGNOSIS Normal [facility] Comment on above: Order Comment: Julisa stein Type: TISSUE SPECIMENOrdering Facility: [facility] Address: [address] [place] [address] Result Comment: A. E sophagus, distal, biopsy: -Acute esophagitis with occasional intraepithelial eosinophils (up to 5 eosinophils per high-power field) -GMS, HSV and CMV stains to follow B. Esophagus, proximal, biopsy: -Acute esophagitis with occasional intraepithelial eosinophils (up to 10 eosinophils per high-power field) -GMS, HSV and CMV stains to follow Performed By: #### S ####[facility] LABIA [id number] [place] [address] [place] FINAL PERFORMING LAB Normal [facility] Comment on above: Order Comment: Speci men Type: TISSUE SPECIMENOrdering Facility: [facility] Address: [address] [place] [address] Result Comment: Diag nostic interpretation performed at [facility], [address] [place] [address] CLIA# [id number] Planning Consultant: Reid Emerson M.D. Performed By: #### S ####[facility] LABCLIA [id number] [address] [place] GROSS DESCRIPTION Normal [facility] Comment on above: Order Comment: Speci men Type: TISSUE SPECIMENOrdering Facility: [facility] Address: [address] [place] [address] Result Comment: A. E sophagus, Distal, Biopsy Received in formalin are two pieces of bui-white, soft tissue aggregating to 0.5 x 0.3 x 0.1 Cm. Totally submitted in one cassette. B. Esophagus, Proximal, Biopsy Received in formalin are two pieces of bui-white, soft tissue aggregating to 0.5 x 0.2 x 0.1 cm. Totally submitted in one cassette. Gross examination performed at [facility], [address] [place] [address] August 28, 2023 10:39 PM Performed By: #### S ####[facility] LABCLIA [id number] [place] [address] [place] Upper GI endoscopy 08-27-2 024 Upper GI endoscopy [facility] Gastro[facility] o[facility] Gastrointestinal Endoscopy Patient Name: Brittney Alcocer Procedure Date: 08/28/2023 11:38 AM Date of : 1975 Admit Type: Outpatient Age: 48 Room: [place] [address] Gender: Female Note Status: Finalized Attending MD: Edwin Cheung MD, [id number] Procedure: Upper GI endoscopy Indications: Epigastric abdominal [...] previously scheduled. Procedure Code(s): --- Professional --- 86283, Esophagogastroduodenosc opy, flexible, transoral; with biopsy, single or multiple CPT copyright 2020 [employer]. All rights reserved. The codes documented in this report are preliminary and upon seo intern review may be revised to meet current compliance requirements. Attending Participation: I personally performed the entire procedure. Scope In: 11:44:28 AM Scope Out: 11:48:04 AM MD Edwin Farfan MD 08/28/2023 12:00:39 PM This report has been signed electronically by Edwin Cheung MD Number of Addenda: 0 Note Initiated On: 08/28/2023 11:38 AM Estimated Blood Loss: Estimated blood loss: none. Normal [facility] ANES PRE-OPon 08-27-2023 ANES PRE-OP HNO ID: [id number] Author: JAZ GARCIA APRN.COLLEGE INTERN Service: Anesthesiology Author Type: Nurse [employer] Teacher Type: Anesthesia Preprocedure Evaluation Filed: 08/28/2023 11:42 [...] and consent discussed: yes. Patient / Responsible Democrat agrees to proceed: yes Patient / Surrogate [...] 48 hours of Surgery/Procedure. SIGNATURE: Claribel Jacobo APRN.COLLEGE INTERN PATIENT NAME: Brittney Alcocer DATE: August 27, 2023 TIME: 3:52 PM CSN: [id number] Normal [facility] CNCOon 08-27-2023 CNCO Letter Text Normal [facility] CNOVon 08-27-2023 CNOV Office Visit (GSTNOR ) BRITTNEY ALCOCER ([id number]) 1975 F NFR Date Time Provider Department 08/27/23 9:15 AM SNOW QUICK During your visit today, we recorded the [...] Abs Lymph 1.00 - 4.00 k/uL 1.17 Jessamine% % 6.9 Abs Jessamine <0.87 k/uL 0.54 Eosin% % 1.4 Abs [...] period. simvastatin (more content not included)... Normal [facility] Duong 08-22-2023 [facility] Telephone ([facility]) BRITTNEY ALCOCER ([id number]) 1975 F NFR Date Time Provider Department 08/22/23 YENNY OSMAN [facility] During your visit today, we recorded the following information about you: Jailene Ny 08/22/2023 4:09 PM Signed Prior authorization has been submitted via CoverMyMeds Included clinical notes from 06/12/23. Medication: Nurtec (rimegepant) Dosage/frequency: 75 MG Insurance Name: [facility] Medicare/ [place] (if available): [id number] Was authorization approved, denied, or still pending? PENDING If approved, effective dates: n/a Jailene Ny 09/20/2023 11:42 AM Signed Received APPROVED from [facility] for [employer] (rimegepant) by CoverMyMeds Authorization/Denial #: [id number] Approval Dates : 08/22/2023 through 02/16/2024 Allergies [...] Assessed Reason for Visit: Insurance Authorization [[id number]] Ericka [employer] Medicare/ [facility] [Other] Prescriptions as of 09/20/2023 - clindamycin [...] right-sided scia (more content not included)... 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 PSHX: Petar has no past [...] her house pain (more content not included)... Normal [facility] 08-21-2023 SRIKANTH Telephone (STEPHANYSAUMYAOLENA) BRITTNEY ALCOCER ([id number]) 1975 F NFR Date Time Provider Department [...] Patient saw Dr Mcghee with [facility] in October 2021, will place referral. Cristobal Otoole APRN.Cristobal Walton APRN.ERENDIRA 08/21/2023 12:36 PM Signed Addended by: CRISTOBAL [...] Unknown Date Reviewed: 08/17/2023 Reviewed by: Laura Mijares RN - Fully Assessed Reason for Visit: Patient Question [3457] Primary Visit Diagnosis:Epigastric pain [R10.13] Order(s):CONSULT TO GASTROENTEROLOGY [8266] Order #: [id number]: 1 FUTURE Prescriptions as of 08/26/2023 - [...] III, BMI (more content not included)... 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 PATIENT NAME: Brittney Alcocer DATE: August 17, 2023 TIME: 10:22 PM Normal [facility] CBC W Auto Differential pane l (Bld)on 08-17-2023 Basophils (Bld) [#/Vol] 0.03 10*3/uL Normal <0.11 [facility] Comment on above: Order Comment: Speci men Type: BLOOD SPECIMENOrdering Facility: [facility] Address: [address] [place] [address] Performed By: #### 5 7021-8 ####[facility] [place] LABCLIA [id number] [place] [id number] [place] Basophils/100 WBC (Bld) 0.4 % Normal [facility] Comment on above: Order Comment: Speci men Type: BLOOD SPECIMENOrdering Facility: [facility] Address: [address] [place] [address] Performed By: #### 5 7021-8 ####[facility] [place] LABCLIA [id number] [place] [id number] [place] Differential cell count method Nom (Bld) Auto Normal [facility] Comment on above: Order Comment: Speci men Type: BLOOD SPECIMENOrdering Facility: [facility] Address: [address] [place] [address] Performed By: #### 5 7021-8 ####[facility] [place] LABCLIA [id number] [place] [address] [place] Eosinophils (Bld) [#/Vol] 0.11 10*3/uL Normal <0.46 [facility] Comment on above: Order Comment: Speci men Type: BLOOD SPECIMENOrdering Facility: [facility] Address: [address] [place] [address] Performed By: #### 5 7021-8 ####[facility] [place] LABCLIA [id number] [place] [address] [place] Eosinophils/100 WBC (Bld) 1.4 % Normal [facility] Comment on above: Order Comment: Speci men Type: BLOOD SPECIMENOrdering Facility: [facility] Address: [address] [place] [address] Performed By: #### 5 7021-8 ####[facility] [place] LABCLIA [id number] [place] [address] [place] Erythrocyte distribution width (RBC) [Ratio] 13.2 % Normal 11.5-15.0 [facility] Comment on above: Order Comment: Speci men Type: BLOOD SPECIMENOrdering Facility: [facility] Address: [address] [place] [address] Performed By: #### 5 7021-8 ####[facility] [place] LABCLIA [id number] [place] [address] [place] Hematocrit (Bld) [Volume fraction] 46.0 % Normal 36.0-46.0 [facility] Comment on above: Order Comment: Speci men Type: BLOOD SPECIMENOrdering Facility: [facility] Address: [address] [place] [address] Performed By: #### 5 7021-8 ####[facility] [place] LABCLIA [id number] [place] [address] [place] Hemoglobin (Bld) [Mass/Vol] 15.5 g/dL Normal 11.5-15.5 [facility] Comment on above: Order Comment: Speci men Type: BLOOD SPECIMENOrdering Facility: [facility] Address: [address] [place] [address] Performed By: #### 5 7021-8 ####[facility] [place] LABCLIA [id number] [facility] [place] [address] [place] Immature granulocytes (Bld) [#/Vol] 10*3/uL Normal <0.10 [facility] Comment on above: Order Comment: Speci men Type: BLOOD SPECIMENOrdering Facility: [facility] Address: [address] [place] [address] Performed By: #### 5 7021-8 ####[facility] [place] LABCLIA [id number] [place] [address] [facility] Immature granulocytes/100 WBC (Bld) 0.1 % Normal [facility] Comment on above: Order Comment: Speci men Type: BLOOD SPECIMENOrdering Facility: [facility] Address: [address] [place] [address] Performed By: #### 5 7021-8 ####[facility] [place] LABCLIA [id number] [place] [address] [place] Lymphocytes (Bld) [#/Vol] 1.17 10*3/uL Normal 1.00-4.00 [facility] Comment on above: Order Comment: Speci men Type: BLOOD SPECIMENOrdering Facility: [facility] Address: [address] [place] [address] Performed By: #### 5 7021-8 ####[facility] LABCLIA [id number] [place] [id number] [facility] Lymphocytes/100 WBC (Bld) 14.9 % Normal [facility] Comment on above: Order Comment: Speci men Type: BLOOD SPECIMENOrdering Facility: [facility] Address: [address] [place] [address] Performed By: #### 5 7021-8 ####[facility] [place] LABCLIA [id number] [place] [address] [place] MCH (RBC) [Entitic mass] 32.2 pg Normal 26.0-34.0 [facility] Comment on above: Order Comment: Speci men Type: BLOOD SPECIMENOrdering Facility: [facility] Address: [address] [place] [address] Performed By: #### 5 7021-8 ####[facility] [place] LABCLIA [id number] [place] [address] [place] [facility] MCHC (RBC) [Mass/Vol] 33.7 g/dL Normal 30.5-36.0 [facility] Comment on above: Order Comment: Speci men Type: BLOOD SPECIMENOrdering Facility: [facility] Address: [address] [place] [address] Performed By: #### 5 7021-8 ####[address] [facility] [place] LABCLIA [id number] [place] [address] [place] MCV (RBC) [Entitic vol] 95.6 fL Normal 80.0-100.0 [facility] Comment on above: Order Comment: Speci men Type: BLOOD SPECIMENOrdering Facility: [facility] Address: [address] [place] [address] Performed By: #### 5 7021-8 ####DL [facility] [place] LABCLIA [id number] [place] [address] [place] Monocytes (Bld) [#/Vol] 0.54 10*3/uL Normal <0.87 [facility] Comment on above: Order Comment: Speci men Type: BLOOD SPECIMENOrdering Facility: [facility] Address: [address] [place] [address] Performed By: #### 5 7021-8 ####[facility] LABCLIA [id number] [place] [address] [facility] Monocytes/100 WBC (Bld) 6.9 % Normal [facility] Comment on above: Order Comment: Speci men Type: BLOOD SPECIMENOrdering Facility: [facility] Address: [address] [place] [address] Performed By: #### 5 7021-8 ####IDBRITTANI [facility] [place] LABCLIA [id number] [place] [address] [place] Neutrophils (Bld) [#/Vol] 5.97 10*3/uL Normal 1.45-7.50 [facility] Comment on above: Order Comment: Speci men Type: BLOOD SPECIMENOrdering Facility: [facility] Address: [address] [place] [address] Performed By: #### 5 7021-8 ####[facility] [place] LABCLIA [id number] [place] [address] [place] Neutrophils/100 WBC (Bld) 76.3 % Normal [facility] Comment on above: Order Comment: Speci men Type: BLOOD SPECIMENOrdering Facility: [facility] Address: [address] [place] [address] Performed By: #### 5 7021-8 ####[facility] [place] LABCLIA [id number] [place] [address] [place] Nucleated RBC (Bld) [#/Vol] Normal [facility] Comment on above: Order Comment: Speci men Type: BLOOD SPECIMENOrdering Facility: [facility] Address: [address] [place] [address] Performed By: #### 5 7021-8 ####[facility] [place] LABCLIA [id number] [place] [address] [place] Nucleated RBC/100 WBC (Bld) [Ratio] Normal [facility] Comment on above: Order Comment: Speci men Type: BLOOD SPECIMENOrdering Facility: [facility] Address: [address] [place] [address] Performed By: #### 5 7021-8 ####IDBRITTANI [facility] [place] LABCLIA [id number] [place] [address] [place] Platelet mean volume (Bld) [Entitic vol] 9.5 fL Normal 9.0-12.7 [facility] Comment on above: Order Comment: Speci men Type: BLOOD SPECIMENOrdering Facility: [facility] Address: [address] [place] [address] Performed By: #### 5 7021-8 ####[facility] [place] LABCLIA [id number] [facility] [place] [address] [place] Platelets (Bld) [#/Vol] 212 10*3/uL Normal 150-400 [facility] Comment on above: Order Comment: Speci men Type: BLOOD SPECIMENOrdering Facility: [facility] Address: [address] [place] [address] [place] [address] Performed By: #### 5 7021-8 ####[facility] LABCLIA [id number] [place] [address] [facility] RBC (Bld) [#/Vol] 4.81 10*6/uL Normal 3.90-5.20 [facility] Comment on above: Order Comment: Speci men Type: BLOOD SPECIMENOrdering Facility: [facility] Address: [address] [place], [place] [address] Performed By: #### 5 7021-8 ####[facility] LABCLIA [id number] [place] [address] [facility] WBC (Bld) [#/Vol] 7.83 10*3/uL Normal 3.70-11.00 [facility] Comment on above: Order Comment: Speci men Type: BLOOD SPECIMENOrdering Facility: [facility] Address: [address] [place], [place] [address] Performed By: #### 5 7021-8 ####[facility] LABCLIA [id number] [place] [address] [facility] CT ABD/PEL W IVCONon 08-16-[address] ABD/PEL W IVCON * * *Final Report* * * DATE OF EXAM: Aug 17 2023 10:21PM [facility] 0530 - CT ABD/PEL W IVCON / [...] acute process in the abdomen or pelvis. Car Rental Manager: PSCB Transcribe Date/Time: Aug 17 2023 10:50P Dictated by : TAYLOR SIMON MD This examination was interpreted and the report reviewed and electronically signed by: TAYLOR SIMON MD on Aug 17 2023 10:56PM EST [id number] Normal [facility] Comprehensive metabolic 2000 panelon 08-17-2023 Albumin [Mass/Vol] 4.6 g/dL Normal 3.9-4.9 [facility] Comment on above: Order Comment: Speci men Type: BLOOD SPECIMENOrdering Facility: [facility] Address: [address] [place] [address] Performed By: #### 3 040-3, 05217-7 ####[facility]I LABCLIA [id number] [address] STATES OF [facility] ALP [Catalytic activity/Vol] 125 U/L High 34-123 [facility] Comment on above: Order Comment: Speci men Type: BLOOD SPECIMENOrdering Facility: [facility] Address: [address] [place] [address] Performed By: #### 3 040-3, 29838-3 ####[facility] [place] LABCLIA [id number] [place] [address] [place] ALT With P-5'-P [Catalytic activity/Vol] 14 U/L Normal 7-38 [facility] Comment on above: Order Comment: Speci men Type: BLOOD SPECIMENOrdering Facility: [facility] Address: [address] [place] [address] Performed By: #### 3 040-3, 93900-0 ####DL [facility] [place] LABCLIA [id number] [place] [address] [place] Anion gap [Moles/Vol] 13 mmol/L Normal 8-15 [facility] Comment on above: Order Comment: Speci men Type: BLOOD SPECIMENOrdering Facility: [facility] Address: [address] [place], [place] [address] Performed By: #### 3 040-3, 01006-6 ####[address] [facility] [place] LABCLIA [id number] [facility] [place] [address] [place] AST With P-5'-P [Catalytic activity/Vol] 16 U/L Normal 13-35 [facility] Comment on above: Order Comment: Speci men Type: BLOOD SPECIMENOrdering Facility: [facility] Address: [address] [place], [place] [address] Performed By: #### 3 040-3, 17234-5 ####[address] [facility] [place] LABCLIA [id number] [facility] [place] [address] [place] Bilirubin [Mass/Vol] 0.6 mg/dL Normal 0.2-1.3 [facility] Comment on above: Order Comment: Speci men Type: BLOOD SPECIMENOrdering Facility: [facility] Address: [address] [place] [address] Performed By: #### 3 040-3, 51405-3 ####ID[address] [facility] [place] LABCLIA [id number] [facility] [place] [address] [place] Calcium [Mass/Vol] 9.5 mg/dL Normal 8.5-10.2 [facility] Comment on above: Order Comment: Speci men Type: BLOOD SPECIMENOrdering Facility: [facility] Address: [address] [place] [address] Performed By: #### 3 040-3, 07339-5 ####[facility] [place] LABCLIA [id number] [place] [address] [place] Chloride [Moles/Vol] 102 mmol/L Normal 98-107 [facility] Comment on above: Order Comment: Speci men Type: BLOOD SPECIMENOrdering Facility: [facility] Address: [address] [place] [address] Performed By: #### 3 040-3, 40329-4 ####[facility] [place] LABCLIA [id number] [place] [address] [facility] CO2 [Moles/Vol] 23 mmol/L Normal 22-30 [facility] Comment on above: Order Comment: Speci men Type: BLOOD SPECIMENOrdering Facility: [facility] Address: [address] [place] [address] Performed By: #### 3 040-3, 14006-6 ####[facility] LABCLIA [id number] [place] [address] [facility] Creatinine [Mass/Vol] 0.86 mg/dL Normal 0.58-0.96 [facility] Comment on above: Order Comment: Speci men Type: BLOOD SPECIMENOrdering Facility: [facility] Address: [address] [place] [address] Performed By: #### 3 040-3, 84914-7 ####[facility] LABCLIA [id number] [place] [address] [facility] Creatinine and Glomerular filtration rate.predicted panel (S/P/Bld) 83 mL/min/1.73m??? Normal >=60 [facility] Comment on above: Order Comment: Speci men Type: BLOOD SPECIMENOrdering Facility: [facility] Address: [address] [place] [address] Result Comment: Katelyn mated Glomerular Filtration Rate [...] actual GFR. Performed By: #### 3 040-3, 81027-7 ####IDBRITTANI [facility] LABCLIA [id number] [place] [address] [place] Glucose [Mass/Vol] 111 mg/dL High 74-99 [facility] Comment on above: Order Comment: Julisa stein Type: BLOOD SPECIMENOrdering Facility: [facility] Address: [address] [place] [address] Result Comment: The [place] Diabetes Association (ADA) provides guidance for cutoff [...] Standards of Medical Care in Diabetes 2016, [place] Diabetes Association. Diabetes Care. 2016.39(Suppl 1). Performed By: #### 3 040-3, 05892-9 ####IDBR[address] [facility] LABCLIA [id number] [place] [address] [place] Potassium [Moles/Vol] 4.0 mmol/L Normal 3.7-5.1 [facility] Comment on above: Order Comment: Julisa stein Type: BLOOD SPECIMENOrdering Facility: [facility] Address: [address] [place] [address] Performed By: #### 3 040-3, 77237-4 ####[facility] LABIA [id number] [place] [address] [place] Protein [Mass/Vol] 7.9 g/dL Normal 6.3-8.0 [facility] Comment on above: Order Comment: Julisa stein Type: BLOOD SPECIMENOrdering Facility: [facility] Address: [address] [place] [address] [place] [address] Performed By: #### 3 040-3, 42431-3 ####[facility] [place] LABCLIA [id number] [place] [address] [place] Sodium [Moles/Vol] 138 mmol/L Normal 136-144 [facility] Comment on above: Order Comment: Speci men Type: BLOOD SPECIMENOrdering Facility: [facility] Address: [address] [place] [address] Performed By: #### 3 040-3, 91891-2 ####[facility] [place] LABCLIA [id number] [place] [address] [place] Urea nitrogen [Mass/Vol] 12 mg/dL Normal 7-21 [facility] Comment on above: Order Comment: Speci men Type: BLOOD SPECIMENOrdering Facility: [facility] Address: [address] [place] [address] Performed By: #### 3 040-3, 04764-5 ####[facility] [place] LABCLIA [id number] [place] [address] [place] ECG COMPLETEon 08-17-2023 ECG COMPLETE Ventricular Rate : 6 3 BPM Atrial Rate : 63 BPM P-R Interval : 158 ms QRS Duration : 88 ms Q-T Interval : 380 ms QTC Calculation(Bazett) : 388 ms Calculated P Mission : 37 degrees Calculated R Mission : 35 degrees Calculated T Mission : 37 degrees NORMAL SINUS RHYTHM NORMAL ECG WHEN COMPARED WITH ECG OF 10-May-2021 09:42, NO SIGNIFICANT CHANGE WAS FOUND Confirmed by MD LYNN VINAYAK ([id number]) on 08/19/2023 12:53:31 PM NAME : BRITTNEY ALCOCER PID : [id number] : 1975 Gender : Female Race : ORD : [id number] Procedure Date : Aug 17 2023 23:26:37 Edit Date : Aug 19 2023 12:53:33 Diagnosis: NORMAL SINUS RHYTHM NORMAL ECG WHEN COMPARED WITH ECG OF 10-May-2021 09:42, NO SIGNIFICANT CHANGE WAS FOUND Confirmed by MD LYNN VINAYAK ([id number]) on 08/19/2023 12:53:31 PM Test Reason : epigastric Location : 191 : LDCARD ED Overread By : MD LYNN VINAYAK Edited By : MD LYNN VINAYAK Referred By : , Acquired by : MANJU SINGH [facility] ED NOTEon 08-17-2023 ED NOTE HNO ID: [id number] Author: LAURA MIJARES RN Service: Emergency Medicine Author Type: Registered Nurse Type: ED Notes Filed: 08/17/2023 20:24 Note Text: Pt to ED with c/o upper abd pain x 24 hours. 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 Respirator (more content not included)... Normal [facility] Lipase SerPl-cCncon 08-17-19 24 Lipase [Catalytic activity/Vol] 48 U/L Normal 16 [facility] Comment on above: Order Comment: Speci men Type: BLOOD SPECIMENOrdering Facility: [facility] Address: [address] [place] [address] Performed By: #### 3 040-3, 94741-3 ####[facility] LABCLIA [id number] [place] [id number] [facility] Urinalysis complete panel (U )on 08-17-2023 Bacteria LM.HPF (Urine sed) [#/Area] Many Abnormal None Seen [facility] Comment on above: Order Comment: Speci men Type: URINE SPECIMENOrdering Facility: [facility] Address: [address] [place] [address] Performed By: #### 2 4356-8 ####[facility] LABCLIA [id number] [place] [address] [facility] Bilirubin Ql (U) Negative Normal Negative [facility] Comment on above: Order Comment: Speci men Type: URINE SPECIMENOrdering Facility: [facility] Address: [address] [place] [address] Performed By: #### 2 4356-8 ####[facility] LABCLIA [id number] [place] [address] [facility] [place] Clarity (Unsp spec) Clear Normal Clear [facility] Comment on above: Order Comment: Speci men Type: URINE SPECIMENOrdering Facility: [facility] Address: [address] [place] [address] Performed By: #### 2 4356-8 ####[facility] [place] LABCLIA [id number] [facility] [place] [address] [place] Color (U) Yellow Normal Yellow [facility] Comment on above: Order Comment: Speci men Type: URINE SPECIMENOrdering Facility: [facility] Address: [address] [place] [address] Performed By: #### 2 4356-8 ####[facility] [place] LABCLIA [id number] [place] [address] [facility] Epithelial cells LM.HPF (Urine sed) [#/Area] Few Normal [facility] Comment on above: Order Comment: Speci men Type: URINE SPECIMENOrdering Facility: [facility] Address: [address] [place] [address] Performed By: #### 2 4356-8 ####[facility] [place] LABCLIA [id number] [place] [address] [facility] Glucose Test strip (U) [Mass/Vol] Negative Normal Negative [facility] Comment on above: Order Comment: Speci men Type: URINE SPECIMENOrdering Facility: [facility] Address: [address] [place] [address] Performed By: #### 2 4356-8 ####[facility] [place] LABCLIA [id number] [place] [address] [place] Hemoglobin Ql (U) Negative Normal Negative [facility] Comment on above: Order Comment: Speci men Type: URINE SPECIMENOrdering Facility: [facility] Address: [address] [place] [address] Performed By: #### 2 4356-8 ####[facility] [place] LABCLIA [id number] [place] [address] [place] Ketones Ql (U) Negative Normal Negative [facility] Comment on above: Order Comment: Speci men Type: URINE SPECIMENOrdering Facility: [facility] Address: [address] [place] [address] Performed By: #### 2 4356-8 ####[facility] [place] LABCLIA [id number] [facility] [place] [address] [place] [facility] Leukocyte esterase Test strip Ql (U) Negative Normal Negative [facility] Comment on above: Order Comment: Speci men Type: URINE SPECIMENOrdering Facility: [facility] Address: [address] [place] [address] Performed By: #### 2 4356-8 ####[facility] [place] LABCLIA [id number] [place] [address] [place] Nitrite Ql (U) Negative Normal Negative [facility] Comment on above: Order Comment: Speci men Type: URINE SPECIMENOrdering Facility: [facility] Address: [address] [place] [address] Performed By: #### 2 4356-8 ####[facility] [place] LABCLIA [id number] [place] [address] [place] pH (U) 6.5 [pH] Normal 5.0-8.0 [facility] Comment on above: Order Comment: Speci men Type: URINE SPECIMENOrdering Facility: [facility] Address: [address] [place] [address] Performed By: #### 2 4356-8 ####[facility] [place] LABCLIA [id number] [place] [address] [place] Protein (U) [Mass/Vol] Negative Normal Negative [facility] Comment on above: Order Comment: Speci men Type: URINE SPECIMENOrdering Facility: [facility] Address: [address] [place] [address] Performed By: #### 2 4356-8 ####[facility] [place] LABCLIA [id number] [place] [address] [facility] RBC LM.HPF (Urine sed) [#/Area] 0-3 /HPF Normal 0-3 /HPF [facility] Comment on above: Order Comment: Speci men Type: URINE SPECIMENOrdering Facility: [facility] Address: [address] [place] [address] Performed By: #### 2 4356-8 ####[facility] LABCLIA [id number] [place] [id number] [facility] Specific gravity (U) [Rel density] 1.025 Normal 1.005-1.030 [facility] Comment on above: Order Comment: Speci men Type: URINE SPECIMENOrdering Facility: [facility] Address: [address] [place] [address] Performed By: #### 2 4356-8 ####[facility] LABCLIA [id number] [place] [id number] [facility] Urobilinogen Ql (U) 0.2 EU/dL Normal 0.2-1.0 EU/dL [facility] Comment on above: Order Comment: Speci men Type: URINE SPECIMENOrdering Facility: [facility] Address: [address] [place] [address] Performed By: #### 2 4356-8 ####[facility] LABCLIA [id number] [place] [id number] [facility] WBC LM.HPF (Urine sed) [#/Area] 0-5 /HPF Normal 0-5 /HPF [facility] Comment on above: Order Comment: Speci men Type: URINE SPECIMENOrdering Facility: [facility] Address: [address] [place] [address] Performed By: #### 2 4356-8 ####[facility] LABCLIA [id number] [place] [id number] [facility] OPERATIVE NOon 06-17-2023 OPERATIVE NO HNO ID: [id number] Author: SABAS REYES DPM Service: Podiatry Author Type: Physician Type: Operative Report Filed: 06/20/2023 10:54 Note Text: [facility] - OPERATIVE REPORT BRITTNEY ALCOCER : 1975 AGE: 48. SEX: F PATIENT TYPE: A [facility] [place] LOCATION: [id number] ATTENDING PHYSICIAN: Sabas Reyes DPM CSN NUMBER: [id number] DATE OF SURGERY/PROCEDURE: 05/18/2023 INCISION/PROCEDURE START TIME: 7:54 AM INCISION CLOSE/PROCEDURE END TIME: 8:23 AM PREOPERATIVE DIAGNOSIS: POSTOPERATIVE DIAGNOSIS: SURGEON: Sabas Reyes DPM JACQUARD CARD CUTTER: 1. Spike Hernandez, PGY-3. 2. Jc Parikh, [...] a well known patient of mine at [facility] with a complaint of having a painful [...] releasing the soft (more content not included)... 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 Documented by Juan Carlos Dozier APRN.COLLEGE INTERN 05/18/2023 8:35 AM EDT SIGNATURE: Sameer Dominguez DO PATIENT NAME: Brittney Alcocer DATE: May 18, 2023 TIME: 10:27 AM CSN: [id number] 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 Patient / Responsible Democrat agrees to proceed: yes Patient / Surrogate [...] May 18, 2023 TIME: 6:49 AM CSN: [id number] [facility] HISTORY PHYSICALon HISTORY PHYSICAL HNO ID: [id number] Author: SABAS REYES DPM Service: Podiatry Author Type: Resident Type: H&P Filed: 05/18/2023 07:33 Note Text: Attestation signed by Sabas Reyes DPM at 05/18/2023 7:33 AM Patient was seen and evaluated and they understand all risks and complications at hand. 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, coma x3 [...] antral gastritis, neg h Pylori EGD W/O [facility] SPEC VARICIES INJ 2021 EGD W/O [facility] SPEC VARICIES INJ 06/29/2021 LAPAROSCOPY SURG CHOLECYSTECTOMY [...] Onset Hypertension Mother Psychiatry Mother DEPRESSION other (Juneau's Chorea) Mother other (Other) Sister stillborn other (Heart Disease) Maternal Grandfather other (Down Syndrome) Paternal Grandfather other (Juneau's Chorea) Brother ADD/ADHD Son other (Rosacea) Son [...] 200 Units, OTHER, q 3 MONTHS, Queenie Sparks APRN.POLISHER HAND, 200 Units at 03/09/23 1030 cephALEXin (KEFLEX) [...] 05/18/2023 simvastatin (ZOCOR (more content not included)... [facility] OPERATIVE NOon 05-18-2023 OPERATIVE NO HNO ID: [id number] Author: SABAS REYES DPM Service: Podiatry Author Type: Physician Type: Operative Report Filed: 05/18/2023 10:24 Note Text: ORTHO OPERATIVE REPORT LOG ID: [id number] Surgery/Procedure Date: 05/18/2023 Incision/Procedure Start Time: 7:54 AM Incision Close/Procedure End Time: 8:23 AM Surgeon(s)/Proceduralis t(s) and Pattern Cutter(s): Surgeon(s) and Role: * Sabas Reyes DPM - Primary * Spike Hernandez DPM - Resident - Assisting * Jc Parikh DPM - Resident - Assisting Business Analytics Intern: Laura Lanza SA Procedure(s): #1 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 Implantation of nerve of a branch of the common peroneal nerve into the peroneal muscle belly left lower leg 3. Neuroplasty dorsal left foot of the deep peroneal nerve Anesthesia: General Procedure Details: Patient is a well-known patient mine at [facility] with a complaint of having a painful [...] toes to (more content not included)... Normal [facility] ANES PREOPon 05-17-2023 ANES PREOP HNO ID: [id number] Author: VALERIY MIJARES PA-C Service: ? 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 Dr Reyes is aware of patient's dental infection and is okay to proceed with procedure and wants anesthesia notified of pt status so they are aware. Normal [facility] XR KNEE 4V AP/PA BOTH+LAT/ME R [...] knee are desired, they may be obtained. Car Rental Manager: YARELI Transcribe Date/Time: Oct 24 2022 1:23P Dictated by : JORGEL UIS ESPINAL MD This examination was interpreted and the report reviewed and electronically signed by: JORGE LUIS ESPINAL MD on Oct 24 2022 1:26PM EST [id number] Normal [facility] Basic metabolic 1998 panelon 05-21-2022 Anion gap [Moles/Vol] 5 mmol/L 3 - 13 mmol/L [facility] Calcium [Mass/Vol] 9.7 mg/dL 8.4 - 10. 4 mg/dL [facility] Chloride [Moles/Vol] 109 mmol/L High 98 - 10 7 mmol/L [facility] CO2 [Moles/Vol] 27 mmol/L 22 - 30 mmol/L [facility] Creatinine [Mass/Vol] 0.72 mg/dL 0.52 - 1.04 mg/dL [facility] GFR/1.73 sq M.predicted MDRD (S/P/Bld) [Vol rate/Area] - PINF [facility] Comment on above: Calculation based on the Chronic Kidney Disease Epidemiology Collaboration (CKD-EPI) equation refit without adjustment for race Glucose [Mass/Vol] 84 mg/dL 70 - 100 mg/dL [facility] Interpretation and review of laboratory results Abnormal [facility] Potassium [Moles/Vol] 3.9 mmol/L 3.5 - 5.1 mmol/L [facility] Sodium [Moles/Vol] 140 mmol/L 135 - 145 mmol/L [facility] Urea nitrogen [Mass/Vol] 19 mg/dL High 7 - 17 mg/dL [facility] CBC W Auto Differential pane l (Bld)Ordered By: Paola Stewart on 05-21-2022 Basophils (Bld) [#/Vol] 0.0 10*3/uL 0.0 - 0.2 10*3/uL [facility] Basophils/100 WBC (Bld) 0.5 % 0.0 - 2.0 % [facility] Eosinophils (Bld) [#/Vol] 0.1 10*3/uL 0.0 - 0.5 10*3/uL [facility] Eosinophils/100 WBC (Bld) 2.1 % 1.0 - 6.0 % [facility] Erythrocyte distribution width (RBC) [Ratio] 13.0 % 11.5 - 14.5 % [facility] Hematocrit (Bld) [Volume fraction] 43.8 % 35.0 - 47.0 % [facility] Hemoglobin (Bld) [Mass/Vol] 15.4 g/dL 11.7 - 16.0 g/dL [facility] Immature granulocytes (Bld) [#/Vol] 0.0 10*3/uL NINF - 0.0 10*3/uL [facility] Immature granulocytes/100 WBC (Bld) 0.3 % High NINF - 0.0 % [facility] Interpretation and review of laboratory results Abnormal [facility] Lymphocytes (Bld) [#/Vol] 2.4 10*3/uL 1.0 - 4.3 10*3/uL [facility] Lymphocytes/100 WBC (Bld) 36.4 % 20.0 - 40.0 % [facility] MCH (RBC) [Entitic mass] 32.2 pg 26.0 - 34.0 pg [facility] MCHC (RBC) [Mass/Vol] 35.2 % 32.0 - 36.0 % [facility] MCV (RBC) [Entitic vol] 91.4 fL 80.0 - 98.0 fL [facility] Monocytes (Bld) [#/Vol] 0.5 10*3/uL 0.0 - 0.8 10*3/uL [facility] Monocytes/100 WBC (Bld) 7.3 % 2.0 - 10.0 % [facility] Neutrophils (Bld) [#/Vol] 3.5 10*3/uL 1.8 - 7.0 10*3/uL [facility] Neutrophils/100 WBC (Bld) 53.4 % 40.0 - 80.0 % [facility] Platelet mean volume (Bld) [Entitic vol] 9.7 fL 7.4 - 12.4 fL [facility] Comment on above: MPV is a calculated measurement using platelet volume ratio Platelets (Bld) [#/Vol] 240 10*3/uL 140 - 440 10*3/uL [facility] RBC (Bld) [#/Vol] 4.79 10*6/uL 3.8 - 5.20 10*6/uL [facility] WBC (Bld) [#/Vol] 6.6 10*3/uL 3.6 - 10.7 10*3/uL [facility] CT Abdomen WO contraston 1. No evidence [...] Electronically Signed Date/Time: 05/21/2022 7:14 PM EDT [facility] [employer] Patient Name: BRITTNEY MORA : 1975 Exam Date/Time: 05/21/2022 18:50 Procedure: CT ABDOMEN [...] similar to prior. Changes in the spine. [facility] [employer] Mark Daniels MD - 05/21/2022 Patient Name: BRITTNEY ALCOCER : 1975 Exam Date/Time: 05/21/2022 18:50 Procedure: CT ABDOMEN [...] Electronically Signed Date/Time: 05/21/2022 7:14 PM EDT [facility] Rad[facility] Study observation (narrative) [facility] CT Abdomen WO contrastOrdere d By: Mark Daniels on 05-21-2022 [employer] Work Phone: CTA Chest vessels WO and W c ontrast Reg 05-21-2022 Impression: No evidence of pulmonary embolus or other acute finding of the chest. Report Dictated on Electronically Signed By: Carlos Dominguez Electronically Signed Date/Time: 05/21/2022 7:14 PM EDT [facility] Patient Name: BRITTNEY MORA : 1975 [...] CT. Osseous structures: No suspicious osseous lesions. [facility] Carlos Dominguez MD - 05/21/2022 Patient Name: [...] Electronically Signed Date/Time: 05/21/2022 7:14 PM EDT [facility] Radiology Study observation (narrative) [facility] CTA Chest vessels WO and W c ontrast IVOrdered By: Carlos Dominguez on 05-21-2022 [facility] Work Phone: Fibrin D-dimer FEU (PPP) [Ma ss/Vol]on 05-21-2022 Interpretation and review of laboratory results Abnormal [facility] D-Dimer values of <0.50 mg/L FEU can be used in combination with a pre-test probability model (e.g. Well's) to exclude pulmonary embolism (PE) disease, as well as an aid in the diagnosis of deep vein thrombosis (DVT). [facility] - Chemistry and C hemistry - challengeOrdered By: Snow Beebe on 05-21-2022 Troponin I.cardiac [Mass/Vol] 0.00 ng/mL 0.00 - 0.08 ng/mL [facility] - Coagulationon 0 05-21-2022 Fibrin D-dimer FEU (PPP) [Mass/Vol] 0.95 mg/L High NINF - 0.50 mg/L [facility] No Panel Informationon 05-21 P Mission 22 degrees [facility] MO Interval 147 ms [facility] QRS [place] 28 degrees [facility] QRSD [facility]val 356 ms [facility] QTC Interval 404 ms [facility] T Wave [place] 13 degrees [facility] Sinus rhythm Compared to ECG 10/19/2020 16:10:06 No significant changes Electronically Signed On 05-21-2022 18:35:28 EDT by Ángel Maddox CV Ángel Sosa MD - 05/21/2022 IMPRESSION: Sinus rhythm Compared to ECG 10/19/2020 16:10:06 No significant changes Electronically Signed On 05-21-2022 18:35:28 EDT by Ángel Maddox [facility] No Panel InformationOrdered By: Snow Beebe on 05-21-2022 Interpretation and review of laboratory results Normal [facility] Performed by: [facility], [address] [place] [address] CLIA ID: [id number] [facility] Urinalysis complete panel (U )on 05-21-2022 Bilirubin Ql (U) Negative Negative mg/dL [facility] Clarity (U) Clear Clear [facility] Color (U) Light Yellow Lt. Yellow [facility] Glucose Ql (U) Normal Normal (<70) mg/dL [facility] Hemoglobin Ql (U) Negative Negative mg/dL [facility] Interpretation and review of laboratory results Abnormal [facility] Ketones (U) [Mass/Vol] Trace Abnormal Negat nely mg/dL [facility] Leukocyte esterase Test strip Ql (U) Negative Negative Jesus/uL [facility] Nitrite Ql (U) Negative Negative [facility] th pH (U) 6.5 [pH] 5.0 - 8.0 pH [facility] Protein (U) [Mass/Vol] Negative Negat nely mg/dL [facility] Specific gravity (U) [Rel density] High 1.005 - 1.030 [facility] Urobilinogen (U) [Mass/Vol] Normal Normal (0-1) mg/dL [facility] Vital signson 05-21-2022 Heart rate 77 /min bpm [facility] XR Chest Single viewon 05-21 1. No acute finding. Report Dictated on Electronically Signed By: Farrukh Billings Electronically Signed Date/Time: 05/21/2022 5:29 PM EDT [facility] Patient Name: BRITTNEY MORA : 1975 Exam Date/Time: 05/21/2022 17:26 Procedure: XR CHEST 1 VIEW Ordering Provider: MADDOX NICHOLAS Reason For Exam: CHEST PAIN SINGLE FRONTAL VIEW OF THE CHEST CLINICAL INDICATION: CHEST PAIN TECHNIQUE: Single frontal view of the chest COMPARISON: None FINDINGS: Lungs show no significant consolidation. No pleural effusion or pneumothorax. No vascular congestion. Heart size normal. [facility] Farrukh Billings MD - 05/21/2022 Patient [...] Electronically Signed Date/Time: 05/21/2022 5:29 PM EDT [facility] Radiology Study observation (narrative) [facility] Chest Single viewOrdered By: Farrukh Billings on 05-21-2022 [facility] Work Phone: Absolute lymphocyte countOrd ered By: Dr. Posadas on 01-14-2022 Lymphocytes Auto (Unsp spec) [#/Vol] 2.16 10*3/uL 0.83-4.51 [facility] Basophil percentageOrdered B y: Dr. Posadas on 01-14-2022 Basophil percentage 0 SEEN /hpf 0-5 [facility] Basophils/100 WBC (Bld) 0.5 % 0-1 [facility] Bilirubin [Mass/Vol] 0.40 mg/dL 0.20-1.00 [facility] Comment on above: For patients on eltr ombopag therapy, use of Dimension Floyd TBIL is not recommended. Chloride [Moles/Vol] 111 mmol/L 98-107 [facility] Eosinophils/100 WBC (Bld) 2.4 % 0-5 [facility] Glucose [Mass/Vol] 111 mg/dL 74-106 [facility] Comment on above: Fasting Glucose resu lt from 100 to 125 mg/dL suggests IMPAIRED HOMEOSTASIS per A.D.A. criteria. Neutrophils (Bld) [#/Vol] 3.4 10*3/uL 2.0-7.7 [facility] Neutrophils/100 WBC (Bld) 54.7 % 47-70 [facility] Potassium [Moles/Vol] 3.7 mmol/L 3.5-5.1 [facility] Protein [Mass/Vol] 7.4 g/dL 6.4-8.2 [facility] Sodium [Moles/Vol] 141 mmol/L 136-145 [facility] WBC (Bld) [#/Vol] 6.3 10*3/uL 4.4-11.0 [facility] Bilirubin Test strip Ql (U)O rdered By: Dr. Posadas on 01-14-2022 Bilirubin Ql (U) Negative Negative [facility] Blood erythrocytes count (nu mber/volume)Ordered By: Dr. Posadas on 01-14-2022 RBC (Bld) [#/Vol] 4.55 10*6/uL 4.2-5.4 [facility] Blood hemoglobin measurement (mass/volume)Ordered By: Dr. Posadas on 01-14-2022 Hemoglobin (Bld) [Mass/Vol] 14.9 g/dL 12.0-15.0 [facility] Blood lymphocytes/100 leukoc ytesOrdered By: Dr. Posadas on 01-14-2022 Lymphocytes/100 WBC (Bld) 34.6 % 19-41 [facility] Blood monocytes/100 leukocyt esOrdered By: Dr. Posadas on 01-14-2022 Monocytes/100 WBC (Bld) 7.0 % 0-10 [facility] Blood platelet mean volumeOr dered By: Dr. Posadas on 01-14-2022 Platelet mean volume (Bld) [Entitic vol] 9.3 fL 6.2-12.0 [facility] Determination of erythrocyte mean corpuscular volume (MCV)Ordered By: Dr. Posadas on 01-14-2022 MCV (RBC) [Entitic vol] 94.3 fL 81-99 [facility] Direct bilirubinOrdered By: Dr. Posadas on 01-14-2022 Bilirubin.direct [Mass/Vol] 0.11 mg/dL 0.00-0.30 [facility] Hematocrit Auto (Bld) [Volum e fraction]Ordered By: Dr. Posadas on 01-14-2022 Hematocrit (Bld) [Volume fraction] 42.9 % 37-47 [facility] Ketones Test strip Ql (U)Ord ered By: Dr. Posadas on 01-14-2022 Ketones Ql (U) Negative Negative [facility] - Chemistry and C hemistry - challengeOrdered By: Dr. Posadas on 01-14-2022 ALP [Catalytic activity/Vol] 116 U/L 45-117 [facility] ALT [Catalytic activity/Vol] 58 U/L 13-56 [facility] CO2 [Moles/Vol] 29.0 mmol/L 21.0-32.0 [facility] Globulin (S) [Mass/Vol] 3.7 g/dL 2.2-4.2 [facility] Urea nitrogen/Creatinine [Mass ratio] 16.4 mg/mg 10-20 [facility] - Hematology and Cell countsOrdered By: Dr. Posadas on 01-14-2022 Erythrocyte distribution width (RBC) [Entitic vol] 45.2 fL 35.1-43.9 [facility] Erythrocyte distribution width (RBC) [Ratio] 13.2 % 11.6-14.6 [facility] Immature granulocytes/100 WBC (Bld) 0.800 % 0.0-0.9 [facility] Comment on above: IG% - Immature Granu locytes (promyelocytes, myelocytes and metamyelocytes) > 1% indicates that a LEFT SHIFT is Present. MCH (RBC) [Entitic mass] 32.7 pg 27.0-32.0 [facility] Nucleated RBC/100 WBC (Bld) [Ratio] 0 % 0-5 [facility] MCHC Auto (RBC) [Mass/Vol]Or dered By: Dr. Posadas on 01-14-2022 MCHC (RBC) [Mass/Vol] 34.7 g/dL 32-36 [facility] Mucus LM Ql (Urine sed)Order ed By: Dr. Posadas on 01-14-2022 Mucus Ql (Urine sed) 0 SEEN /hpf [facility] Nitrite Test strip Ql (U)Ord ered By: Dr. Posadas on 01-14-2022 Nitrite Ql (U) Negative Negative [facility] No Panel InformationOrdered By: Dr. Posadas on 01-14-2022 Estimated Creatinine Clearance Calc 104.01 ml/min [facility] Estimated GFR (MDRD) Amer 100 mL/min >60 [facility] Comment on above: GFR Calc Estimated GFR (MDRD) Non-Af Amer 82 mL/min >60 [facility] Comment on above: Non- GFR Calc Influenza Types A,B Direct FA (RL) [facility] Platelets bldOrdered By: Dr. Posadas on 01-14-2022 Platelets (Bld) [#/Vol] 277 10*3/uL 150-450 [facility] Protein Test strip Ql (U)Ord ered By: Dr. Posadas on 01-14-2022 Protein Ql (U) Negative Negative [facility] Serum or plasma albumin christy urement (mass/volume)Ordered By: Dr. Posadas on 01-14-2022 Albumin [Mass/Vol] 3.7 g/dL 3.2-5.0 [facility] Serum or plasma calcium christy urement (mass/volume)Ordered By: Dr. Posadas on 01-14-2022 Calcium [Mass/Vol] 9.2 mg/dL 8.5-10.1 [facility] Serum or plasma creatinine m easurement (mass/volume)Ordered By: Dr. Posadas on 01-14-2022 Creatinine [Mass/Vol] 0.79 mg/dL 0.55-1.02 [facility] Comment on above: The validity of the calculated GFR & GFRAA in patients over 70 years has not been determined. Clinical correlation is essential. Serum or plasma urea nitroge n measurement (mass/volume)Ordered By: Dr. Posadas on 01-14-2022 Urea nitrogen [Mass/Vol] 13 mg/dL 7-18 [facility] Squamous epithelial cells de tection in urine sediment by light microscopyOrdered By: Dr. Posadas on 01-14-2022 Epithelial cells.squamous LM Ql (Urine sed) 0-5 SEEN /hpf 5-10 [facility] Thin prep Papanicolaou smear with manual screeningOrdered By: Dr. Posadas on 01-14-2022 Thin prep Papanicolaou smear with manual screening 28 U/L 15-37 [facility] Thin prep Papanicolaou smear with manual screening 1 5-15 [facility] Urine blood detectionOrdered By: Dr. Posadas on 01-14-2022 RBC Ql (U) Negative Negative [facility] RBC Ql (U) 0 SEEN /hpf 0-5 [facility] Urine clarityOrdered By: Dr. Posadas on 01-14-2022 Clarity (U) Clear Clear [facility] Urine color determinationOrd ered By: Dr. Posadas on 01-14-2022 Color (U) Yellow Yellow [facility] Urine glucose detectionOrder ed By: Dr. Posadas on 01-14-2022 Glucose Ql (U) Normal mg/dl Normal [facility] Urine leukocyte esterase det ection by dipstickOrdered By: Dr. Posadas on 01-14-2022 Leukocyte esterase Test strip Ql (U) Negative Negative [facility] Urine pHOrdered By: Dr. Med tan on 01-14-2022 pH (U) 8.0 [pH] 5.0 - 8.0 [facility] Urine sediment bacteria coun t by microscopy (number/high power field)Ordered By: Dr. Posadas on 01-14-2022 Bacteria LM.HPF (Urine sed) [#/Area] 0 /[HPF] None Seen [facility] Urine specific gravity measu rementOrdered By: Dr. Posadas on 01-14-2022 Specific gravity (U) [Rel density] 1.015 1.002-1.030 [facility] Urobilinogen Auto test strip Ql (U)Ordered By: Dr. Posadas on 01-14-2022 Urobilinogen Ql (U) Normal mg/dl Normal [facility] US ABD RIGHT UPPER QUADRANTo n 10-27-2021 US ABD RIGHT UPPER QUADRANT * * *Final Report* * * DATE OF EXAM: Oct 27 2021 7:56AM MDKeisha 1032 - US ABD RIGHT UPPER QUADRANT [...] acute abnormality Suboptimal visualization of the pancreas Car Rental Manager: [facility] Transcribe Date/Time: Oct 27 2021 8:58A Dictated by : ANIL VAUGHN MD This examination was interpreted and the report reviewed and electronically signed by: ANIL VAUGHN MD on Oct 27 2021 9:00AM EST [id number] Normal [facility] .Auto Diffon 07-13-2021 Basophil, Absolute 0.1 10 3/mcL Normal 0.0-0.2 [facility] ([place]) Comment on above: Performed By: #### G , BMP #### [address] [address] Basophils/100 WBC (Bld) 0.7 % Normal 0.0-2.5 [facility] ([place]) Comment on above: Performed By: #### G , BMP #### [address] [place], [place] [address] Eosinophil, Absolute 0.2 10 3/mcL Normal 0.0-0.4 [facility] ([place]) Comment on above: Performed By: #### G FR, BMP #### [address] [address] Eosinophils/100 WBC (Bld) 2.4 % Normal 0.0-7.0 [facility] ([place]) Comment on above: Performed By: #### G FR, BMP #### [address] [address] Lymphocyte, Absolute 2.5 10 3/mcL Normal 0.8-3.9 [facility] ([place]) Comment on above: Performed By: #### G FR, BMP #### [address] [address] Lymphocytes/100 WBC (Bld) 29.8 % Normal 10.0-50.0 [facility] ([place]) Comment on above: Performed By: #### G FR, BMP #### [address] [address] Monocyte, Absolute 0.6 10 3/mcL Normal 0.2-1.0 [facility] ([place]) Comment on above: Performed By: #### G FR, BMP #### [address] [address] Monocytes/100 WBC (Bld) 7.2 % Normal 1.7-13.0 [facility] ([place]) Comment on above: Performed By: #### G FR, BMP #### [address] [address] Neutrophils/100 WBC (Bld) 59.9 % Normal 37.0-80.0 [facility] ([place]) Comment on above: Performed By: #### G FR, BMP #### [address] [address] .GFRon 07-13-2021 GFR 63 ml/min/1.73sqm Normal [facility] ([place]) Comment on above: Result Comment: GFR Population [...] Performed By: #### Ann LEWIS, BMP #### [address] [address] GFR Non- 52 ml/min/1.73sqm Normal [facility] ([place]) Comment on above: Result Comment: GFR Population [...] square meters Performed By: #### Ann LEWIS, ADORE #### [address] [address] .MDWon 07-13-2021 Monocyte Distribution Width 17.89 Normal 0.00-20.00 [facility] ([place]) Comment on above: Result Comment: For ED adult patients suspected of sepsis, MDW<=20.0 does not rule out sepsis or risk of sepsis Performed By: #### Ann LEWIS, BMP #### [address] [address] .NEUABSon 07-13-2021 Neutrophil, Absolute 5.0 10 3/mcL Normal 2.9-6.2 [facility] ([place]) Comment on above: Performed By: #### Ann LEWIS, BMP #### [place] [id number] BMPon 07-13-2021 BUN/Creatinine Ratio 13 ratio Normal 7-27 [facility] ([place]) Comment on above: Performed By: #### Ann LEWIS, BMP #### [address] [address] Calcium [Mass/Vol] 10.2 mg/dL Normal 8.4-10.2 [facility] ([place]) Comment on above: Performed By: #### Ann LEWIS, BMP #### [address] [address] Chloride [Moles/Vol] 104 mmol/L Normal 98-107 [facility] ([place]) Comment on above: Performed By: #### Ann LEWIS, BMP #### [address] [address] CO2 [Moles/Vol] 23 mmol/L Normal 22-29 [facility] ([place]) Comment on above: Performed By: #### Ann LEWIS, BMP #### [address] [address] Creatinine [Mass/Vol] 1.12 mg/dL High 0.55-1.02 [facility] ([place]) Comment on above: Performed By: #### Ann LEWIS, BMP #### [address] [address] Electrolyte Balance 12.0 mEq/L Normal 4.0-15.0 [facility] ([place]) Comment on above: Performed By: #### Ann LEWIS, BMP #### [address] [address] Glucose [Mass/Vol] 111 mg/dL High 70-105 [facility] ([place]) Comment on above: Performed By: #### Ann LEWIS, BMP #### [address] [address] Potassium [Moles/Vol] 3.9 mmol/L Normal 3.5-5.1 [facility] ([place]) Comment on above: Performed By: #### Ann LEWIS, BMP #### [address] [address] Sodium [Moles/Vol] 139 mmol/L Normal 136-145 [facility] ([place]) Comment on above: Performed By: #### Ann LEWIS, BMP #### [address] [address] Urea nitrogen [Mass/Vol] 15 mg/dL Normal 7-18 [facility] ([place]) Comment on above: Performed By: #### Ann LEWIS, BMP #### [address] [address] CBCon 07-13-2021 Erythrocyte distribution width (RBC) [Ratio] 14.1 % Normal 11.5-14.5 [facility] ([place]) Comment on above: Performed By: #### Ann LEWIS, BMP #### [address] [address] Hematocrit (Bld) [Volume fraction] 45.9 % Normal 37.0-47.0 [facility] ([place]) Comment on above: Performed By: #### Ann LEWIS, BMP #### [address] [address] Hgb 15.7 G/dL Normal 12.0-16.0 [facility] ([place]) Comment on above: Performed By: #### Ann LEWIS, BMP #### [address] [address] MCH (RBC) [Entitic mass] 31.8 pg High 27.0-31.2 [facility] ([place]) Comment on above: Performed By: #### Ann LEWIS, BMP #### [address] [address] MCHC 34.2 G/dL Normal 33.0-37.0 [facility] ([place]) Comment on above: Performed By: #### Ann LEWIS, BMP #### [address] [address] MCV (RBC) [Entitic vol] 93.1 fL Normal 80.0-94.0 [facility] ([place]) Comment on above: Performed By: #### Ann LEWIS, BMP #### [address] [address] Platelet 272 10 3/mcL Normal 130-400 [facility] ([place]) Comment on above: Performed By: #### G , BMP #### [address] [place], [place] [address] Platelet mean volume (Bld) [Entitic vol] 8.1 fL Normal 7.4-10.4 [facility] ([place]) Comment on above: Performed By: #### G , BMP #### [address] [address] RBC 4.93 10 6/mcL Normal 4.20-5.40 [facility] ([place]) Comment on above: Performed By: #### G , BMP #### [address] [address] WBC 8.3 10 3/mcL Normal 4.6-10.8 [facility] ([place]) Comment on above: Performed By: #### Ann LEWIS, BMP #### [address] [address] [address] HEAD OR BRAIN W/O CONTRAS Ton [...] 07/13/2021 6:59:49 PM Ordering Provider: MADELINE Crain [facility] ([place]) LABORATORYOrdered By: Vashti Varghese on 07-13-2021 Basophil, [...] Code AO Chemistry S Basic Metabolic Panelon 10-06 Calcium [Mass/Vol] 10.3 mg/dL Normal 8.4-10.4 [facility] Comment on above: Performed By: #### H EMDF, QWAL2, PT/AP, BMP3 ####[facility] [place] [address] Glucose [Mass/Vol] 93 mg/dL Normal 70-100 [facility] Comment on above: Performed By: #### H EMDF, QWAL2, PT/AP, BMP3 ####[place] [address] [place] [address] Urea nitrogen [Mass/Vol] 16 mg/dL Normal 9-20 [facility] Comment on above: Performed By: #### H EMDF, QWAL2, PT/AP, BMP3 ####[place] [address] [place] [address] Anion gap [Moles/Vol] 5 mmol/L Normal 3-13 [facility] Comment on above: Performed By: #### H EMDF, QWAL2, PT/AP, BMP3 ####[address] [place] [address] CO2 [Moles/Vol] 26 mmol/L Normal 22-30 [facility] Comment on above: Performed By: #### H EMDF, QWAL2, PT/AP, BMP3 ####[place] [address] [place] [address] Creatinine [Mass/Vol] 0.90 mg/dL Normal 0.52-1.25 [facility] Comment on above: Performed By: #### H EMDF, QWAL2, PT/AP, BMP3 ####[place] [address] [place] [address] GFR/1.73 sq M.predicted among blacks MDRD (S/P/Bld) [Vol rate/Area] 89.0 mL/min/{1.73_m2} Normal >60 [facility] Comment on above: Performed By: #### H EMDF, QWAL2, PT/AP, BMP3 ####[address] [place] [address] GFR/1.73 sq M.predicted among non-blacks MDRD (S/P/Bld) [Vol rate/Area] 76.8 mL/min/{1.73_m2} Normal >60 [facility] Comment on above: Result Comment: KDIG O [...] tubular creatinine secretion. Performed By: #### H YEIMI, BENITEZ2, PT/AP, BMP3 ####[address] [place] [address] Potassium [Moles/Vol] 4.2 mmol/L Normal 3.5-5.1 [facility] Comment on above: Performed By: #### H MILTONF, QWAL2, PT/AP, BMP3 ####[address] [place] [address] Chloride [Moles/Vol] 111 mmol/L High 98-107 [facility] Comment on above: Performed By: #### H YEIMI, QWAL2, PT/AP, BMP3 ####[address] [place] [address] Sodium [Moles/Vol] 142 mmol/L Normal 135-145 [facility] Comment on above: Performed By: #### H EMDF, QWAL2, PT/AP, BMP3 ####[address] [place] [address] CT Head or Brain w/o Contras ton 10-19-2020 CT Head or Brain w/o Contrast Patient Name: BRITTNEY ALCOCER Computed Tomography ACCESSION EXAM DATE/TIME PROCEDURE ORDERING PROVIDER [id number] 10/19/2020 15:[address] Head or Brain w/o MD AUGUSTO, RANDY Weir Contrast CPT code 56299 Reason For Exam (CT Head or Brain [...] Transcribed Date and Time: 10/19/2020 4:05 Normal [facility] Hemogram w/ Autodiffon 10-19 Abs Baso Cnt 0.0 10*3/uL Normal 0.0-0.2 [facility] Comment on above: Performed By: #### H EMDF, QWAL2, PT/AP, BMP3 #### [facility] [address] [facility] [address] Abs Neutrophile Cnt 4.4 10*3/uL Normal 1.8-7.0 [facility] Comment on above: Performed By: #### H EMDF, QWAL2, PT/AP, BMP3 #### [facility] [address] [place] [address] Basophils/100 WBC (Bld) 0.5 % Normal 0.0-2.0 [facility] Comment on above: Performed By: #### H EMDF, QWAL2, PT/AP, BMP3 #### [facility] [address] [facility] [place] [address] Eosinophils (Bld) [#/Vol] 0.2 10*3/uL Normal 0.0-0.5 [facility] Comment on above: Performed By: #### H EMDF, QWAL2, PT/AP, BMP3 #### [facility] [address] [place] [address] Eosinophils/100 WBC (Bld) 2.7 % Normal 1.0-6.0 [facility] Comment on above: Performed By: #### H EMDF, QWAL2, PT/AP, BMP3 #### [facility] [address] [place] [address] Erythrocyte distribution width (RBC) [Ratio] 14.2 % Normal 11.5-14.5 [facility] Comment on above: Performed By: #### H EMDF, QWAL2, PT/AP, BMP3 #### [facility] [address] [place] [address] Granulocytes/100 WBC (Bld) 60.8 % Normal 40.0-80.0 [facility] Comment on above: Performed By: #### H EMDF, QWAL2, PT/AP, BMP3 #### [address] [place] [address] Hematocrit (Bld) [Volume fraction] 42.9 % Normal 35.0-47.0 [facility] Comment on above: Performed By: #### H EMDF, QWAL2, PT/AP, BMP3 #### [facility] [address] [place] [address] Hemoglobin (Bld) [Mass/Vol] 14.5 g/dL Normal 11.7-16.0 [facility] Comment on above: Performed By: #### H EMDF, QWAL2, PT/AP, BMP3 #### [facility] [address] [place] [address] Lymphocytes (Bld) [#/Vol] 2.1 10*3/uL Normal 1.0-4.3 [facility] Comment on above: Performed By: #### H EMDF, QWAL2, PT/AP, BMP3 #### [address] [place] [address] Lymphocytes/100 WBC (Bld) 29.1 % Normal 20.0-40.0 [facility] Comment on above: Performed By: #### H EMDF, QWAL2, PT/AP, BMP3 #### [place] [address] [place] [address] MCH (RBC) [Entitic mass] 32.0 pg Normal 26.0-34.0 [facility] Comment on above: Performed By: #### H EMDF, QWAL2, PT/AP, BMP3 #### [facility] [address] [place] [address] MCHC 33.9 % Normal 32.0-36.0 [facility] Comment on above: Performed By: #### H EMDF, QWAL2, PT/AP, BMP3 #### [facility] [address] [place] [address] MCV (RBC) [Entitic vol] 94.4 fL Normal 79.0-98.0 [facility] Comment on above: Performed By: #### H EMDF, QWAL2, PT/AP, BMP3 #### [facility] [address] [place] [address] Monocytes (Bld) [#/Vol] 0.5 10*3/uL Normal 0.0-0.8 [facility] Comment on above: Performed By: #### H EMDF, QWAL2, PT/AP, BMP3 #### [facility] [address] [place] [address] Monocytes/100 WBC (Bld) 6.9 % Normal 2.0-10.0 [facility] Comment on above: Performed By: #### H EMDF, QWAL2, PT/AP, BMP3 #### [facility] [address] [place] [address] Platelet mean volume (Bld) [Entitic vol] 7.6 fL Normal 7.4-10.4 [facility] Comment on above: Performed By: #### H EMDF, QWAL2, PT/AP, BMP3 #### [facility] [address] [place] [place] [address] Platelets (Bld) [#/Vol] 265 10*3/uL Normal 140-440 [facility] Comment on above: Performed By: #### H EMDF, QWAL2, PT/AP, BMP3 #### [facility] [address] [place] [address] RBC (Bld) [#/Vol] 4.55 10*6/uL Normal 3.80-5.20 [facility] Comment on above: Performed By: #### H EMDF, QWAL2, PT/AP, BMP3 #### [facility] [address] [place] [address] WBC (Bld) [#/Vol] 7.2 10*3/uL Normal 3.6-10.7 [facility] Comment on above: Performed By: #### H EMDF, QWAL2, PT/AP, BMP3 #### [facility] [address] [place] [address] Protime AND APTTon 1 aPTT Coag (Bld) [Time] 26.7 s Normal 20.0-30.5 [facility] Comment on above: Result Comment: NOTE : The therapeutic time for Heparin anticoagulation, based on Xa activity inhibition, is an APTT of 46-80 seconds. Performed By: #### H EMDF, QWAL2, PT/AP, BMP3 ####[facility] [place] [address] INR 1.0 Normal 0.9-1.1 [facility] Comment on above: Result Comment: Peyman mmended [...] By: #### H EMDF, QWAL2, PT/AP, BMP3 ####[facility] [place] [address] PT Coag (PPP) [Time] 10.7 s Normal 9.0-12.0 [facility] Comment on above: Result Comment: . Performed By: #### H EMDF, QWAL2, PT/AP, BMP3 ####[facility] [address] [place] [address] hCG Qual Pregon 10-19-2020 hCG Qual Preg Negative Normal [facility] Comment on above: Result Comment: Refe rence Range: NEGATIVE Effective 04/18/2019, the reference interval for the qualitative test has been updated. This test detects hCG at concentrations of 10 mIU/L or greater in serum. Performed By: #### H EMDF, QWAL2, PT/AP, BMP3 ####[facility] [address] [place] [address] ED Provider Noteon ED Provider Note VISHNU [...] otherwise acutely negative except as in the PAUMA. PAST MEDICAL HISTORY Past Medical History: Diagnosis [...] with Fri (more content not included)... Normal [facility] CULTURE URINEon 06-24-2020 CULTURE URINE 1 Organism Streptococcus agalactiae (Group B) 10,000-50,000 CFU/ml Susceptibility testing not routinely performed. Group B streptococcus is universally susceptible to beta-lactam antibiotics and vancomycin. If patient is beta-lactam allergic, please call [facility] Microbiology lab ([phone]) within 2 days to request susceptibility testing. If isolated from urine, Group B strep may indicate colonization or infection. Normal [facility] Comment on above: Performed By: #### C /UR ####[facility] [place] [address] CT Abdomen/Pelvis w/o Contra ston 06-23-2020 CT Abdomen/Pelvis w/o Contrast Patient Name: BRITTNEY ALCOCER Computed Tomography ACCESSION EXAM DATE/TIME PROCEDURE ORDERING PROVIDER [id number] 06/23/2020 08:[address] Abdomen/Pelvis (No MD SAURAV, GEOVANNI PO, No IV) CPT code 14762 Reason For Exam (CT Abdomen/Pelvis (No PO, [...] Transcribed Date and Time: 06/23/2020 9:01 Normal [facility] Complete Urinalysison 2020 Bacteria Few (1-5) Abnormal Negative [facility] Comment on above: Result Comment: . Performed By: #### C UA2 #### [facility] [address] [place] [address] RBC LM.HPF (Urine sed) [#/Area] /[HPF] Abnormal 0-2 [facility] Comment on above: Result Comment: . Performed By: #### C UA2 #### [facility] [address] [place] [place] [address] Squamous Epithelial 3 - 5 Normal 3-5 [facility] Comment on above: Result Comment: . Performed By: #### C UA2 #### [facility] [address] [place] [address] VOLUME, URINE 8-12 ml Normal [facility] Comment on above: Result Comment: . Performed By: #### C UA2 #### [facility] [address] [place] [address] WBC, Urine 0 - 2 Normal 0-5 [facility] Comment on above: Result Comment: . Performed By: #### C UA2 #### [facility] [address] [place] [address] Appearance (U) Clear Normal Clear [facility] Comment on above: Result Comment: . Performed By: #### C UA2 #### [facility] [address] [place] [address] Bilirubin,Urine Negative Normal Negative [facility] Comment on above: Result Comment: . Performed By: #### C UA2 #### [facility] [address] [place] [address] Color (U) LIGHT YELLOW Normal Lt. Yellow [facility] Comment on above: Result Comment: . Performed By: #### C UA2 #### [facility] [address] [place] [address] Glucose Ql (U) Normal Normal Normal (<70) [facility] Comment on above: Result Comment: . Performed By: #### C UA2 #### [facility] [address] [place] [address] Ketone,Urine Negative Normal Negative [facility] Comment on above: Result Comment: . Performed By: #### C UA2 #### [facility] [address] [place] [address] Leukocytes,Urine Negative Normal Negative [facility] Comment on above: Result Comment: . Performed By: #### C UA2 #### [facility] [address] [place] [address] Nitrites,Urine Negative Normal Negative [facility] Comment on above: Result Comment: . Performed By: #### C UA2 #### [facility] [address] [place] [address] Occult Blood,Urine > 1.0 Abnormal Negative [facility] Comment on above: Result Comment: . Performed By: #### C UA2 #### [facility] [address] [place] [address] pH,Urine 6.5 Normal 5.0-8.0 [facility] Comment on above: Result Comment: . Performed By: #### C UA2 #### [facility] [address] [place] [address] Specific [place],Urine 1.020 Normal 1.005 - 1.030 [facility] Comment on above: Result Comment: . Performed By: #### C UA2 #### [facility] [address] [place] [address] Total Protein,Urine Negative Normal Negative [facility] Comment on above: Result Comment: . Performed By: #### C UA2 #### [facility] [address] [place] [address] Urobilinogen,Urine Normal Normal Normal (0-1) [facility] Comment on above: Result Comment: . Performed By: #### C UA2 #### [facility] [address] [place] [address] XR MANDIBLE 4V PA/SOFÍA/OBL X2on 03-29-2020 XR [...] pain persists, TMJ MRI may be helpful Car Rental Manager: YARELI Transcribe Date/Time: Mar 30 2020 9:45A Dictated by : SULMA PERAZA MD This examination was interpreted and the report reviewed and electronically signed by: SULMA PERAZA MD on Mar 30 2020 9:47AM EST Normal [facility] Basic Metabolic Panelon 11-2 Calcium [Mass/Vol] 9.7 mg/dL Normal 8.4-10.4 [facility] Comment on above: Performed By: #### B MP3, HEMDF, LFT3, LIPA4 ####[facility] [place] [address] Glucose [Mass/Vol] 102 mg/dL High 70-100 [facility] Comment on above: Performed By: #### B MP3, HEMDF, LFT3, LIPA4 ####[facility] [place] [address] Urea nitrogen [Mass/Vol] 16 mg/dL Normal 7-20 [facility] Comment on above: Performed By: #### B MP3, HEMDF, LFT3, LIPA4 ####[facility] [place] [address] Anion Gap 6 Normal [facility] Comment on above: Performed By: #### B MP3, HEMDF, LFT3, LIPA4 ####[facility] [place] [address] CO2 [Moles/Vol] 25 mmol/L Normal 22-30 [facility] Comment on above: Performed By: #### B MP3, HEMDF, LFT3, LIPA4 ####[facility] [place] [address] Creatinine [Mass/Vol] 0.83 mg/dL Normal 0.52-1.25 [facility] Comment on above: Performed By: #### B MP3, HEMDF, LFT3, LIPA4 ####[facility] [place] [address] GFR/1.73 sq M.predicted among blacks MDRD (S/P/Bld) [Vol rate/Area] mL/min/{1.73_m2} Normal >60 [facility] Comment on above: Performed By: #### B MP3, HEMDF, LFT3, LIPA4 ####[address] [place] [address] GFR/1.73 sq M.predicted among non-blacks MDRD (S/P/Bld) [Vol rate/Area] 85.2 mL/min/{1.73_m2} Normal >60 [facility] Comment on above: Result Comment: KDIG O [...] By: #### B MP3, HEMDF, LFT3, LIPA4 ####[place] [address] [place] [address] Potassium [Moles/Vol] 4.0 mmol/L Normal 3.5-5.1 [facility] Comment on above: Performed By: #### B MP3, HEMDF, LFT3, LIPA4 ####[place] [address] [place] [address] Sodium [Moles/Vol] 138 mmol/L Normal 135-145 [facility] Comment on above: Performed By: #### B MP3, HEMDF, LFT3, LIPA4 ####[place] [address] [address] Chloride [Moles/Vol] 108 mmol/L High 98-107 [facility] Comment on above: Performed By: #### B MP3, HEMDF, LFT3, LIPA4 ####[place] [address] [place] [address] CT Abdomen/Pelvis w/ Contras ton 01-02-2020 CT Abdomen/Pelvis w/ Contrast Patient Name: BRITTNEY ALCOCER CT Exam Date/Time 01/02/2020 15:19:[address] Abdomen/Pelvis w/ IV Contrast (IV Onl Ordering Physician ÁNGEL REDDY Accession Number [id number] CPT4 Codes 77689 (CT Abdomen/Pelvis w/ IV Contrast (IV Onl), Q9967 (CT ISOVUE 370MG/[id number] ndMLand1) Reason For Exam post hysterectomy with [...] Transcribed Date and Time: 01/02/2020 3:56 Normal [facility] Complete Urinalysison 2019 Appearance (U) Clear Normal Clear [facility] Comment on above: Result Comment: . Performed By: #### C UA2 #### [facility] [address] [place] [address] Bilirubin,Urine Negative Normal Negative [facility] Comment on above: Result Comment: . Performed By: #### C UA2 #### [facility] [address] [place] [address] Color (U) LIGHT YELLOW Normal Lt. Yellow [facility] Comment on above: Result Comment: . Performed By: #### C UA2 #### [facility] [address] [place] [address] Glucose Ql (U) Normal Normal Normal (<70) [facility] Comment on above: Result Comment: . Performed By: #### C UA2 #### [facility] [address] [place] [address] Ketone,Urine Negative Normal Negative [facility] Comment on above: Result Comment: . Performed By: #### C UA2 #### [facility] [address] [place] [address] Leukocytes,Urine Negative Normal Negative [facility] Comment on above: Result Comment: . Performed By: #### C UA2 #### [facility] [address] [place] [address] Nitrites,Urine Negative Normal Negative [facility] Comment on above: Result Comment: . Performed By: #### C UA2 #### [facility] [address] [place] [address] Occult Blood,Urine Negative Normal Negative [facility] Comment on above: Result Comment: . Performed By: #### C UA2 #### [facility] [address] [place] [address] pH,Urine 6.5 Normal 5.0-8.0 [facility] Comment on above: Result Comment: . Performed By: #### C UA2 #### [facility] [address] [place] [address] Specific [place],Urine 1.012 Normal 1.005 - 1.030 [facility] Comment on above: Result Comment: . Performed By: #### C UA2 #### [facility] [address] [place] [address] Total Protein,Urine Negative Normal Negative [facility] Comment on above: Result Comment: . Performed By: #### C UA2 #### [facility] [address] [place] [address] Urobilinogen,Urine Normal Normal Normal (0-1) [facility] Comment on above: Result Comment: . Performed By: #### C UA2 #### [facility] [address] [place] [address] Hemogram w/ Autodiffon 01-01 Abs Baso Cnt 0.1 10*3/uL Normal 0.0-0.2 [facility] Comment on above: Performed By: #### B MP3, HEMDF, LFT3, LIPA4 ####[facility] [place] [address] Abs Neutrophile Cnt 4.1 10*3/uL Normal 1.8-7.0 [facility] Comment on above: Performed By: #### B MP3, HEMDF, LFT3, LIPA4 ####[facility] [place] [address] Basophils/100 WBC (Bld) 1.3 % Normal 0.0-2.0 [facility] Comment on above: Performed By: #### B MP3, HEMDF, LFT3, LIPA4 ####[facility] [place] [address] Eosinophils (Bld) [#/Vol] 0.4 10*3/uL Normal 0.0-0.5 [facility] Comment on above: Performed By: #### B MP3, HEMDF, LFT3, LIPA4 ####[facility] [place] [address] Eosinophils/100 WBC (Bld) 5.8 % Normal 1.0-6.0 [facility] Comment on above: Performed By: #### B MP3, HEMDF, LFT3, LIPA4 ####[facility] [place] [address] Erythrocyte distribution width (RBC) [Ratio] 14.2 % Normal 11.5-14.5 [facility] Comment on above: Performed By: #### B MP3, HEMDF, LFT3, LIPA4 ####[address] [place] [address] Granulocytes/100 WBC (Bld) 55.8 % Normal 40.0-80.0 [facility] Comment on above: Performed By: #### B MP3, HEMDF, LFT3, LIPA4 ####[address] [place] [address] Hematocrit (Bld) [Volume fraction] 40.3 % Normal 35.0-47.0 [facility] Comment on above: Performed By: #### B MP3, HEMDF, LFT3, LIPA4 ####[address] [place] [address] Hemoglobin (Bld) [Mass/Vol] 13.9 g/dL Normal 11.7-16.0 [facility] Comment on above: Performed By: #### B MP3, HEMDF, LFT3, LIPA4 ####[address] [place] [address] Lymphocytes (Bld) [#/Vol] 2.2 10*3/uL Normal 1.0-4.3 [facility] Comment on above: Performed By: #### B MP3, HEMDF, LFT3, LIPA4 ####[address] [place] [address] Lymphocytes/100 WBC (Bld) 30.5 % Normal 20.0-40.0 [facility] Comment on above: Performed By: #### B MP3, HEMDF, LFT3, LIPA4 ####[facility] [place] [address] MCH (RBC) [Entitic mass] 32.3 pg Normal 26.0-34.0 [facility] Comment on above: Performed By: #### B MP3, HEMDF, LFT3, LIPA4 ####[address] [place] [address] MCHC 34.5 % Normal 32.0-36.0 [facility] Comment on above: Performed By: #### B MP3, HEMDF, LFT3, LIPA4 ####[place] [address] [place] [address] MCV (RBC) [Entitic vol] 93.7 fL Normal 79.0-98.0 [facility] Comment on above: Performed By: #### B MP3, HEMDF, LFT3, LIPA4 ####[facility] [place] [address] Monocytes (Bld) [#/Vol] 0.5 10*3/uL Normal 0.0-0.8 [facility] Comment on above: Performed By: #### B MP3, HEMDF, LFT3, LIPA4 ####[facility] [place] [address] Monocytes/100 WBC (Bld) 6.6 % Normal 2.0-10.0 [facility] Comment on above: Performed By: #### B MP3, HEMDF, LFT3, LIPA4 ####[facility] [place] [address] Platelet mean volume (Bld) [Entitic vol] 8.1 fL Normal 7.4-10.4 [facility] Comment on above: Performed By: #### B MP3, HEMDF, LFT3, LIPA4 ####[facility] [place] [address] Platelets (Bld) [#/Vol] 276 10*3/uL Normal 140-440 [facility] Comment on above: Performed By: #### B MP3, HEMDF, LFT3, LIPA4 ####[facility] [place] [address] RBC (Bld) [#/Vol] 4.30 10*6/uL Normal 3.80-5.20 [facility] Comment on above: Performed By: #### B MP3, HEMDF, LFT3, LIPA4 ####[place] [address] [place] [address] WBC (Bld) [#/Vol] 7.3 10*3/uL Normal 3.6-10.7 [facility] Comment on above: Performed By: #### B MP3, HEMDF, LFT3, LIPA4 ####[facility] [place] [address] Hepatic Functionon 0 ALP [Catalytic activity/Vol] 122 U/L Normal 38-126 [facility] Comment on above: Performed By: #### B MP3, HEMDF, LFT3, LIPA4 ####[facility] [place] [address] ALT [Catalytic activity/Vol] 21 U/L Normal 0-34 [facility] Comment on above: Result Comment: The ALT test is performed by an updated assay method. Please note that the reference intervals have been changed and are now sex specific. Performed By: #### B MP3, HEMDF, LFT3, LIPA4 ####[facility] [place] [address] AST [Catalytic activity/Vol] 19 U/L Normal 15-46 [facility] Comment on above: Performed By: #### B MP3, HEMDF, LFT3, LIPA4 ####[facility] [place] [address] Bilirubin [Mass/Vol] 0.5 mg/dL Normal 0.2-1.3 [facility] Comment on above: Performed By: #### B MP3, HEMDF, LFT3, LIPA4 ####[facility] [place] [address] Protein [Mass/Vol] 7.8 g/dL Normal 6.3-8.2 [facility] Comment on above: Performed By: #### B MP3, HEMDF, LFT3, LIPA4 ####[facility] [place] [address] Bilirubin.indirect [Mass/Vol] 0.0 mg/dL Normal 0.0-0.3 [facility] Comment on above: Performed By: #### B MP3, HEMDF, LFT3, LIPA4 ####[facility] [place] [address] Albumin [Mass/Vol] 4.5 g/dL Normal 3.5-5.0 [facility] Comment on above: Performed By: #### B MP3, HEMDF, LFT3, LIPA4 ####[facility] [place] [address] Lipaseon 01-02-2020 Lipase [Catalytic activity/Vol] 376 U/L High 23-300 [facility] Comment on above: Performed By: #### B MP3, HEMDF, LFT3, LIPA4 ####[facility] [place] [place] [address] Basic Metabolic Panelon 10-07 Anion Gap 8 Normal [facility] Comment on above: Performed By: #### B MP3, HEMDF, QWAL #### [facility] [address] [place] [place] [address] Calcium [Mass/Vol] 9.5 mg/dL Normal 8.4-10.4 [facility] Comment on above: Performed By: #### B MP3, HEMDF, QWAL #### [facility] [address] [place] [place] [address] CO2 [Moles/Vol] 26 mmol/L Normal 22-30 [facility] Comment on above: Performed By: #### B MP3, HEMDF, QWAL #### [facility] [address] [place] [place] [address] Glucose [Mass/Vol] 113 mg/dL High 70-100 [facility] Comment on above: Performed By: #### B MP3, HEMDF, QWAL #### [facility] [address] [place] [place] [address] Urea nitrogen [Mass/Vol] 22 mg/dL High 7-20 [facility] Comment on above: Performed By: #### B MP3, HEMDF, QWAL #### [facility] [address] [place] [place] [address] Creatinine [Mass/Vol] 0.84 mg/dL Normal 0.52-1.25 [facility] Comment on above: Performed By: #### B MP3, HEMDF, QWAL #### [facility] [address] [place] [place] [address] GFR/1.73 sq M.predicted among blacks MDRD (S/P/Bld) [Vol rate/Area] mL/min/{1.73_m2} Normal >60 [facility] Comment on above: Performed By: #### B MP3, HEMDF, QWAL #### [facility] [address] [place] [address] GFR/1.73 sq M.predicted among non-blacks MDRD (S/P/Bld) [Vol rate/Area] 84.0 mL/min/{1.73_m2} Normal >60 [facility] Comment on above: Result Comment: KDIG O [...] By: #### B MP3, HEMDF, QWAL #### [facility] [address] [place] [address] Potassium [Moles/Vol] 4.3 mmol/L Normal 3.5-5.1 [facility] Comment on above: Performed By: #### B MP3, HEMDF, QWAL #### [facility] [address] [place] [address] Sodium [Moles/Vol] 143 mmol/L Normal 135-145 [facility] Comment on above: Performed By: #### B MP3, HEMDF, QWAL #### [facility] [address] [place] [address] Chloride [Moles/Vol] 109 mmol/L High 98-107 [facility] Comment on above: Performed By: #### B MP3, HEMDF, QWAL #### [facility] [address] [place] [address] CR Foot Complete 3+ Views Le fton 11-03-2019 CR Foot Complete 3+ Views Left Patient Name: BRITTNEY ALCOCER Diagnostic Radiology Exam Date/Time 11/03/2019 10:49:55 EDT Exam CR Foot Complete 3+ Views Left Ordering Physician BANG CANTU Accession Number [id number] CPT4 Codes 81563 () Reason For Exam foot injury, 4th [...] Transcribed Date and Time: 11/03/2019 11:06 Normal [facility] Complete Urinalysison 2019 Bacteria Moderate (6-50) Abnormal Negative [facility] Comment on above: Result Comment: . Performed By: #### C UA2 ####[facility] [place] [address] RBC, Urine 0 - 2 Normal 0-2 [facility] Comment on above: Result Comment: . Performed By: #### C UA2 ####[facility] [place] [address] Squamous Epithelial 0 - 2 Normal 3-5 [facility] Comment on above: Result Comment: . Performed By: #### C UA2 ####[place] [place] [address] VOLUME, URINE 12 ml Normal [facility] Comment on above: Result Comment: . Performed By: #### C UA2 ####[place] [address] [place] [address] WBC LM.HPF (Urine sed) [#/Area] Negative Normal 0-5 [facility] Comment on above: Result Comment: . Performed By: #### C UA2 ####[place] [address] [place] [address] Appearance (U) Clear Normal Clear [facility] Comment on above: Result Comment: . Performed By: #### C UA2 ####[place] [address] [place] [address] Bilirubin,Urine Negative Normal Negative [facility] Comment on above: Result Comment: . Performed By: #### C UA2 ####[place] [address] [place] [address] Color (U) LIGHT YELLOW Normal Lt. Yellow [facility] Comment on above: Result Comment: . Performed By: #### C UA2 ####[place] [address] [place] [address] Glucose Ql (U) Normal Normal Normal (<70) [facility] Comment on above: Result Comment: . Performed By: #### C UA2 ####[place] [address] [place] [address] Ketone,Urine Negative Normal Negative [facility] Comment on above: Result Comment: . Performed By: #### C UA2 ####[place] [address] [place] [address] Leukocytes,Urine Negative Normal Negative [facility] Comment on above: Result Comment: . Performed By: #### C UA2 ####[place] [address] [place] [address] Nitrites,Urine Negative Normal Negative [facility] Comment on above: Result Comment: . Performed By: #### C UA2 ####[place] [address] [place] [address] Occult Blood,Urine 1.0 mg/dL Abnormal Negative [facility] Comment on above: Result Comment: . Performed By: #### C UA2 ####[facility] [place] [address] pH,Urine 6.5 Normal 5.0-8.0 [facility] Comment on above: Result Comment: . Performed By: #### C UA2 ####[facility] [place] [address] Specific Navarre,Urine 1.016 Normal 1.005 - 1.030 [facility] Comment on above: Result Comment: . Performed By: #### C UA2 ####[facility] [place] [address] Total Protein,Urine Negative Normal Negative [facility] Comment on above: Result Comment: . Performed By: #### C UA2 ####[facility] [place] [address] Urobilinogen,Urine Normal Normal Normal (0-1) [facility] Comment on above: Result Comment: . Performed By: #### C UA2 ####[facility] [place] [address] Hemogram w/ Autodiffon 11-02 Abs Baso Cnt 0.0 10*3/uL Normal 0.0-0.2 [facility] Comment on above: Performed By: #### B MP3, HEMDF, QWAL #### [facility] [address] [place] [address] Abs Neutrophile Cnt 5.4 10*3/uL Normal 1.8-7.0 [facility] Comment on above: Performed By: #### B MP3, HEMDF, QWAL #### [facility] [address] [place] [address] Basophils/100 WBC (Bld) 0.6 % Normal 0.0-2.0 [facility] Comment on above: Performed By: #### B MP3, HEMDF, QWAL #### [facility] [address] [place] [address] Eosinophils (Bld) [#/Vol] 0.2 10*3/uL Normal 0.0-0.5 [facility] Comment on above: Performed By: #### B MP3, HEMDF, QWAL #### [facility] [address] [place] [address] Eosinophils/100 WBC (Bld) 1.8 % Normal 1.0-6.0 [facility] Comment on above: Performed By: #### B MP3, HEMDF, QWAL #### [facility] [address] [place] [address] Erythrocyte distribution width (RBC) [Ratio] 13.8 % Normal 11.5-14.5 [facility] Comment on above: Performed By: #### B MP3, HEMDF, QWAL #### [facility] [address] [place] [address] Granulocytes/100 WBC (Bld) 65.0 % Normal 40.0-80.0 [facility] Comment on above: Performed By: #### B MP3, HEMDF, QWAL #### [facility] [address] [place] [address] Hematocrit (Bld) [Volume fraction] 45.7 % Normal 35.0-47.0 [facility] Comment on above: Performed By: #### B MP3, HEMDF, QWAL #### [facility] [address] [place] [address] Hemoglobin (Bld) [Mass/Vol] 15.6 g/dL Normal 11.7-16.0 [facility] Comment on above: Performed By: #### B MP3, HEMDF, QWAL #### [facility] [address] [place] [address] Lymphocytes (Bld) [#/Vol] 2.1 10*3/uL Normal 1.0-4.3 [facility] Comment on above: Performed By: #### B MP3, HEMDF, QWAL #### [facility] [address] [place] [address] Lymphocytes/100 WBC (Bld) 25.8 % Normal 20.0-40.0 [facility] Comment on above: Performed By: #### B MP3, HEMDF, QWAL #### [facility] [address] [place] [address] MCH (RBC) [Entitic mass] 32.2 pg Normal 26.0-34.0 [facility] Comment on above: Performed By: #### B MP3, HEMDF, QWAL #### [facility] [address] [place] [address] MCHC 34.2 % Normal 32.0-36.0 [facility] Comment on above: Performed By: #### B MP3, HEMDF, QWAL #### [facility] [address] [place] [address] MCV (RBC) [Entitic vol] 94.2 fL Normal 79.0-98.0 [facility] Comment on above: Performed By: #### B MP3, HEMDF, QWAL #### [facility] [address] [place] [address] Monocytes (Bld) [#/Vol] 0.6 10*3/uL Normal 0.0-0.8 [facility] Comment on above: Performed By: #### B MP3, HEMDF, QWAL #### [facility] [address] [place] [address] Monocytes/100 WBC (Bld) 6.8 % Normal 2.0-10.0 [facility] Comment on above: Performed By: #### B MP3, HEMDF, QWAL #### [facility] [address] [place] [address] Platelet mean volume (Bld) [Entitic vol] 7.9 fL Normal 7.4-10.4 [facility] Comment on above: Performed By: #### B MP3, HEMDF, QWAL #### [facility] [address] [place] [address] Platelets (Bld) [#/Vol] 254 10*3/uL Normal 140-440 [facility] Comment on above: Performed By: #### B MP3, HEMDF, QWAL #### [facility] [address] [place] [address] RBC (Bld) [#/Vol] 4.85 10*6/uL Normal 3.80-5.20 [facility] Comment on above: Performed By: #### B MP3, HEMDF, QWAL #### [facility] [address] [place] [place] [address] WBC (Bld) [#/Vol] 8.2 10*3/uL Normal 3.6-10.7 [facility] Comment on above: Performed By: #### B MP3, HEMDF, QWAL #### [facility] [address] [place] [address] US Transvaginalon 11-03-2019 US Transvaginal Patient Name: BRITTNEY MORA Ultrasound Exam Date/Time 11/03/2019 10:46:33 EDT Exam US Transvaginal Ordering Physician BANG CANTU Accession Number [id number] CPT4 Codes 73173 () Reason For Exam pelvic pain, vaginal [...] Transcribed Date and Time: 11/03/2019 11:03 Normal [facility] hCG Qual Pregon 11-03-2019 hCG Qual Preg Negative Normal [facility] Comment on above: Result Comment: Refe rence Range: NEGATIVE Effective 05/13/2019, the reference interval for the qualitative test has been updated. This test detects hCG at concentrations of 10 mIU/mL or greater in serum. Performed By: #### B MP3, HEMDF, QWAL #### [facility] [address] [place] [address] Hemoglobin A1Con 12-11-2017 Glucose mass conc 100 mg/dL Normal [facility] Comment on above: Performed By: #### L IPD2, HA1C2 ####[facility] [id number] [place] [address] Hemoglobin A1c/Hemoglobin.total mass fraction (Bld) 5.1 % Normal 4.0-5.7 [facility] Comment on above: Result Comment: --Hg bA1C levels may not be accurate in patients who haverenal disease, received recent blood transfusions, are anemic,or who have dyshemoglobinemia. Performed By: #### L IPD2, HA1C2 ####[facility] [id number] [place] [address] Lipid Panelon 12-11-2017 Cholesterol in HDL mass conc 27 mg/dL Low 40-60 [facility] Comment on above: Performed By: #### L IPD2, HA1C2 ####[facility] [id number] [place] [address] Cholesterol.total/Nani sterol in HDL mass ratio 7 Normal [facility] Comment on above: Result Comment: Ref Range:< 3 Low Risk for CHD3-6 Mod Risk for CHD> 6 High Risk for CHD Performed By: #### L IPD2, HA1C2 ####[place] [address] [place], [place] Protein mass conc 132 mg/dL Abnormal <100 [facility] Comment on above: Performed By: #### L IPD2, HA1C2 ####[place] [address] [place] Triglyceride mass conc 192 mg/dL Abnormal <150 [facility] Comment on above: Performed By: #### L IPD2, HA1C2 ####[place] [address] [place] Cholesterol mass conc 197 mg/dL Normal < 200 [facility] Comment on above: Performed By: #### L IPD2, HA1C ####[address] Comp Metabolic Panelon 12-10 ALP enzyme act/vol 104 U/L Normal 38-126 [facility] Comment on above: Performed By: #### H EMOG, CMP3, ETOH4, VALP3 ####[address] ALT enzyme act/vol 24 U/L Normal 13-69 [facility] Comment on above: Performed By: #### H EMOG, CMP3, ETOH4, VALP3 ####[address] Anion gap 3 molar conc 12 Normal [facility] Comment on above: Performed By: #### H EMOG, CMP3, ETOH4, VALP3 ####[address] AST enzyme act/vol 25 U/L Normal 15-46 [facility] Comment on above: Performed By: #### H EMOG, CMP3, ETOH4, VALP3 ####[address] Bilirubin mass conc 0.7 mg/dL Normal 0.2-1.3 [facility] Comment on above: Performed By: #### H EMOG, CMP3, ETOH4, VALP3 ####[address] [place] [address] Calcium mass conc 9.4 mg/dL Normal 8.4-10.4 [facility] Comment on above: Performed By: #### H EMOG, CMP3, ETOH4, VALP3 ####[place] [address] [place] [address] CO2 molar conc 25 mmol/L Normal 22-30 [facility] Comment on above: Performed By: #### H EMOG, CMP3, ETOH4, VALP3 ####[place] [place] [address] Glucose mass conc 94 mg/dL Normal 70-100 [facility] Comment on above: Performed By: #### H EMOG, CMP3, ETOH4, VALP3 ####[facility] [address] [address] Protein mass conc 8.1 g/dL Normal 6.3-8.2 [facility] Comment on above: Performed By: #### H EMOG, CMP3, ETOH4, VALP3 ####[facility] [place] [place] [address] Urea nitrogen mass conc 15 mg/dL Normal 7-20 [facility] Comment on above: Performed By: #### H EMOG, CMP3, ETOH4, VALP3 ####[facility] [address] [address] Creatinine mass conc 0.79 mg/dL Normal 0.52-1.25 [facility] Comment on above: Performed By: #### H EMOG, CMP3, ETOH4, VALP3 ####[facility] [id number] [place] [address] GFR/1.73 sq M predicted among blacks MDRD vol rate/area (S/P/Bld) mL/min/{1.73_m2} Normal >60 [facility] Comment on above: Performed By: #### H EMOG, CMP3, ETOH4, VALP3 ####[place] [address] [place] [address] GFR/1.73 sq M predicted among non-blacks MDRD vol rate/area (S/P/Bld) mL/min/{1.73_m2} Normal >60 [facility] Comment on above: Result Comment: Sour ce- MDRD equation with creatinine calibration to IDMS(NKDEP) eGFR not recommended for drug dose adjustment Performed By: #### H EMOG, CMP3, ETOH4, VALP3 ####[facility] [id number] [place], [place] Albumin mass conc 4.8 g/dL Normal 3.5-5.0 [facility] Comment on above: Performed By: #### H EMOG, CMP3, ETOH4, VALP3 ####[facility] [id number] [place], [place] Chloride molar conc 107 mmol/L Normal 98-107 [facility] Comment on above: Performed By: #### H EMOG, CMP3, ETOH4, VALP3 ####[facility] [id number] [place], [place] Potassium molar conc 3.6 mmol/L Normal 3.5-5.1 [facility] Comment on above: Performed By: #### H EMOG, CMP3, ETOH4, VALP3 ####[facility] [id number] [place], [place] Sodium molar conc 143 mmol/L Normal 137-145 [facility] Comment on above: Performed By: #### H EMOG, CMP3, ETOH4, VALP3 ####[facility] [id number] [place], [place] Drugs of Abuseon 12-10-2017 Phencyclidine (PCP), Ur Negative Normal [facility] Comment on above: Result Comment: The expected [...] #### H CGUR, UAMAC, DRGA4 ####[place] [address] [facility] [place] Methadone, Ur Negative Normal [facility] Comment on above: Performed By: #### H CGUR, UAMAC, DRGA4 ####[place] [address] [facility], [place] Opiates, Ur Negative Normal [facility] Comment on above: Performed By: #### H CGUR, UAMAC, DRGA4 ####[place] [address] [place], [place] Cocaine, Ur Negative Normal [facility] Comment on above: Performed By: #### H CGUR, UAMAC, DRGA4 ####[address], [place] Amphetamines, Ur Negative Normal [facility] Comment on above: Performed By: #### H CGUR, UAMAC, DRGA4 ####[place] [address] [place], [place] Barbiturates, Ur Negative Normal [facility] Comment on above: Performed By: #### H CGUR, UAMAC, DRGA4 ####[place] [address] [place], [place] Benzodiazepines, Ur Negative Normal [facility] Comment on above: Performed By: #### H CGUR, UAMAC, DRGA4 ####[place] [address] [place], [place] Oxycodone/Oxymorphine,U r Negative Normal [facility] Comment on above: Performed By: #### H CGUR, UAMAC, DRGA4 ####[address] ED Provider Noteon 8 Protein mass conc Emergency Department EncounterACH EMERGENCY DEPTPatient: Brittney SolitariotMRN: [id number]: [id number] of Evaluation: 12/10/2017ED Provider: Luis Eduardo Ng [facility] ComplaintChief ComplaintPatient presents with? Suicidal Pt c/o of auditory hallucinations. States she's hearing voices telling her toharm herself. Pt also states she hasn't slept in about 5 days. Denies HI atthis time.? HallucinationsHOPIEliza cecilia Alcocer is a 42 y.o. female who [...] Temp Temp Source Pulse Resp SpO2 Height Jjsaac710/84 97.9 ?F (36.6 ?C) Oral 74 16 [...] eGFR >60.0 >60 mL/min EGFR IF NonAfrican Kazakh >60.0 >60 mL/min Calcium 9.4 8.4 - [...] Color, UA Yellow Lt. Yellow NA Specific Navarre, Urine 1.010 1.005 - 1.030 NA pH, [...] thoughts and insomnia ,medically cleared accepted at [facility] [address] Queenie AlcantarFinal Impression auditory hallucinations and suicidal thoughts and [...] MDUS Acute Care SolutionsAustin Ahsan Ng MD12/10/17 1842Austin Ahsan Ng MD12/25/17 1437 Normal [facility] Ethanol Serum/Plasmaon 12-10 Ethanol-Serum/Plasma < 0.010 Normal 0.000-0.010 [facility] Comment on above: Result Comment: NOTE : This result is for medical treatment only. Analysis performed using non-forensic procedures. Performed By: #### H EMOG, CMP3, ETOH4, VALP3 ####[place] [address] [place] [address] HCG,Urine Qualon 12-10-2017 HCG.beta subunit ( test) Ql (U) Negative Normal Negative [facility] Comment on above: Result Comment: Preg paola is the most common reason for HCG in urine, althoughchoriocarcinoma, hydatidiform mole, and certain nontropho-blastic malignancies also result in detectable urinary HCGlevels. Sensitivity = 20mIU/mL. Performed By: #### H CGUR, UAMAC, DRGA4 ####[place] [place] [address] Hemogramon 12-10-2017 Erythrocyte distribution width Auto Ratio (RBC) 14.6 % High 11.5-14.5 [facility] Comment on above: Performed By: #### H EMOG, CMP3, ETOH4, VALP3 ####[facility] [id number] [place] [address] Hematocrit Auto Volume Fraction (Bld) 46.3 % Normal 35.0-47.0 [facility] Comment on above: Performed By: #### H EMOG, CMP3, ETOH4, VALP3 ####[place] [address] [place] [address] Hemoglobin mass conc (Bld) 15.8 g/dL Normal 11.7-16.0 [facility] Comment on above: Performed By: #### H EMOG, CMP3, ETOH4, VALP3 ####[address] MCH Auto Entitic mass (RBC) 31.6 pg Normal 26.0-34.0 [facility] Comment on above: Performed By: #### H EMOG, CMP3, ETOH4, VALP3 ####[address] MCHC Auto mass conc (RBC) 34.2 % Normal 32.0-36.0 [facility] Comment on above: Performed By: #### H EMOG, CMP3, ETOH4, VALP3 ####[address] MCV Auto Entitic volume (RBC) 92.6 fL Normal 79.0-98.0 [facility] Comment on above: Performed By: #### H EMOG, CMP3, ETOH4, VALP3 ####[address] Platelet mean volume Auto Entitic volume (Bld) 7.9 fL Normal 7.4-10.4 [facility] Comment on above: Performed By: #### H EMOG, CMP3, ETOH4, VALP3 ####[address] Platelets Auto #/vol (Bld) 293 10*3/uL Normal 140-440 [facility] Comment on above: Performed By: #### H EMOG, CMP3, ETOH4, VALP3 ####[address] RBC Auto #/vol (Bld) 5.00 10*6/uL Normal 3.80-5.20 [facility] Comment on above: Performed By: #### H EMOG, CMP3, ETOH4, VALP3 ####[address] WBC Auto #/vol (Bld) 6.2 10*3/uL Normal 3.6-10.7 [facility] Comment on above: Performed By: #### H EMOG, CMP3, ETOH4, VALP3 ####[facility] [id number] [place], [place] Urinalysis,Macroon 8 Appearance Clear Normal Clear [facility] Comment on above: Performed By: #### H CGUR, UAMAC, DRGA4 ####[place] [address] [place], [place] Color Yellow Normal Lt. Yellow [facility] Comment on above: Performed By: #### H CGUR, UAMAC, DRGA4 ####[place] [address] [place], [place] Bilirubin,Ur Negative Normal Negative [facility] Comment on above: Performed By: #### H CGUR, UAMAC, DRGA4 ####[place] [place], [place] Glucose Ql (U) NORM Normal Negative [facility] Comment on above: Performed By: #### H CGUR, UAMAC, DRGA4 ####[place] [address] [place], [place] Ketone,Urine Negative Normal Negative [facility] Comment on above: Performed By: #### H CGUR, UAMAC, DRGA4 ####[place] [address] [place] Leukocytes Negative Normal Negative [facility] Comment on above: Performed By: #### H CGUR, UAMAC, DRGA4 ####[facility] [id number] [place], [place] Nitrites Negative Normal Negative [facility] Comment on above: Performed By: #### H CGUR, UAMAC, DRGA4 ####[facility] [id number] [place], [place] Occult Blood,Ur Negative Normal Negative [facility] Comment on above: Performed By: #### H CGUR, UAMAC, DRGA4 ####[place] [place], [place] pH Test strip (U) 7.0 Normal 5.0-8.0 [facility] Comment on above: Performed By: #### H CGUR, UAMAC, DRGA4 ####[employer] [employer] [place], [place] Specific [place]ar[place],Urine 1.010 Normal 1.005-1.030 [facility] Comment on above: Performed By: #### H CGUR, UAMAC, DRGA4 ####[employer] [employer] [place], [place] Total Protein,Urine Negative Normal Negative [facility] [employer] Comment on above: Performed By: #### H CGUR, UAMAC, DRGA4 ####[employer] [employer] [place] Urobilinogen NORM Normal 0-1 [facility] Comment on above: Performed By: #### H CGUR, UAMAC, DRGA4 ####[employer] [employer] [place] Valproic Acidon 12-10-2017 Protein mass conc 31 ug/mL Low 50-120 [facility] Comment on above: Performed By: #### H EMOG, CMP3, ETOH4, VALP3 ####[employer] [employer] [place], [place] No Panel Information Influenza Types A,B Direct FA ([facility]) [facility] Work Phone: Vital Signs Date Time Vital Sign Value Performing Clinician Facility 07-21-2024 23:49-0400 Body temperature 97.9 [degF] Cristobal Otoole SHOE CUTTER-C Work Phone: [facility] 07-21-2024 23:49-0400 Diastolic blood pressure 73 mm[Hg] Cristobal Otoole [employer]TER-C Work Phone: [facility] 07-21-2024 23:49-0400 Heart rate 89 /min Cristobal Otoole [employer]TER-C Work Phone: [facility] 07-21-2024 23:49-0400 Respiratory rate 14 /min Cristobal Otoole [employer]TER-C Work Phone: [facility] 07-21-2024 23:49-0400 SaO2% (BldA) [Mass fraction] 99 % Cristobal Trill [employer] C[employer]TER-C Work Phone: [facility] 07-21-2024 23:49-0400 Systolic blood pressure 114 mm[Hg] Cristobal Trill SHOE CUTTER-C Work Phone: [facility] 07-21-2024 21:56-0400 Body height 147.32 cm Cristobal Trill SH[employer] C[employer]TER-C Work Phone: [facility] 07-21-2024 21:56-0400 Body mass index (BMI) [Ratio] 40.2 kg/m2 Cristobal Trill [employer]TER-C Work Phone: [facility] 07-21-2024 21:56-0400 Body weight 87.31 kg Cristobal Trill [employer]TER-C Work Phone: [facility] 07-18-2024 07:55-0400 Body height 147.3 cm Francine Martinezton PA-C Work Phone: [facility] 07-18-2024 07:55-0400 Body mass index (BMI) [Ratio] 37.62 kg/m2 Francine Martinezton PA-C Work Phone: [facility] 07-18-2024 07:55-0400 Body weight 81.65 kg Francine Medeiros PA-C Work Phone: [facility] 07-18-2024 07:55-0400 Respiratory rate 14 /min Francine Martinezton PA-C Work Phone: [facility] 06-05-2024 13:22-0400 Body height 147.3 cm Francine Martinezton PA-C Work Phone: [facility] 06-05-2024 13:22-0400 Body mass index (BMI) [Ratio] 37.62 kg/m2 Francine Martinezton PA-C Work Phone: [facility] 06-05-2024 13:22-0400 Body weight 81.65 kg Francine [place] PA-C Work Phone: [facility] 06-05-2024 13:22-0400 Respiratory rate 13 /min Francine Waldemar PA-C Work Phone: [facility] 05-08-2024 07:57-0400 Body height 147.3 cm Francine [place] PA-C Work Phone: [facility] 05-08-2024 07:57-0400 Body mass index (BMI) [Ratio] 37.62 kg/m2 Francine [place] PA-C Work Phone: [facility] 05-08-2024 07:57-0400 Body weight 81.65 kg Francine [place] PA-C Work Phone: [facility] 05-08-2024 07:57-0400 Respiratory rate 13 /min Francine [place] PA-C Work Phone: [facility] 04-24-2024 13:01-0400 Body height 147.3 cm Francine [place] PA-C Work Phone: [facility] 04-24-2024 13:01-0400 Body mass index (BMI) [Ratio] 37.62 kg/m2 Francine Waldemar PA-C Work Phone: [facility] 04-24-2024 13:01-0400 Body weight 81.65 kg Francine Waldemar PA-C Work Phone: [facility] 04-11-2024 14:40-0500 Body height 147.3 cm Francine [place] PA-C Work Phone: [facility] 04-11-2024 14:40-0500 Body mass index (BMI) [Ratio] 37.62 kg/m2 Francine [place] PA-C Work Phone: [facility] 04-11-2024 14:40-0500 Body weight 81.65 kg Francine Waldemar PA-C Work Phone: [facility] 04-10-2024 08:53-0500 Body height 147.3 cm Francine Medeiros PA-C Work Phone: [facility] 04-10-2024 08:53-0500 Body mass index (BMI) [Ratio] 37.62 kg/m2 Francine Medeiros PA-C Work Phone: [facility] 04-10-2024 08:53-0500 Body weight 81.65 kg Francine Medeiros PA-C Work Phone: [facility] 04-10-2024 08:53-0500 Respiratory rate 14 /min Francine Medeiros PA-C Work Phone: [facility] 04-04-2024 10:24-0500 Body height 147.3 cm Trent Alas MD Work Phone: [facility] 04-04-2024 10:24-0500 Body mass index (BMI) [Ratio] 37.62 kg/m2 Trent Alas MD Work Phone: [facility] 04-04-2024 10:24-0500 Body weight 81.65 kg Trent Alas MD Work Phone: [facility] 04-04-2024 02:38-0500 Diastolic blood pressure 68 mm[Hg] Jose Angel Casas MD Work Phone: [employer] [facility] 04-04-2024 02:38-0500 Heart rate 70 /min Jose Angel Casas MD Work Phone: [employer] [facility] 04-04-2024 02:38-0500 Respiratory rate 18 /min Jose Angel Casas MD Work Phone: [employer] [facility] 04-04-2024 02:38-0500 SaO2% (BldA) [Mass fraction] 100 % Jose Angel Casas MD Work Phone: [employer] [facility] 04-04-2024 02:38-0500 Systolic blood pressure 130 mm[Hg] Jose Angel Casas MD Work Phone: [facility] 04-03-2024 19:18-0500 Body height 147.3 cm Jose Angel Casas MD Work Phone: [facility] 04-03-2024 19:18-0500 Body mass index (BMI) [Ratio] 37.62 kg/m2 Jose Angel Casas MD Work Phone: [facility] 04-03-2024 19:18-0500 Body temperature 98.71 [degF] Jose Angel Casas MD Work Phone: [facility] 04-03-2024 19:18-0500 Body weight 81.65 kg Jose Angel Casas MD Work Phone: [facility] 04-01-2024 11:30-0500 Heart rate 75 /min Trent Alas MD Work Phone: [facility] 04-01-2024 11:30-0500 Respiratory rate 19 /min Trent Alas MD Work Phone: [facility] 04-01-2024 11:30-0500 SaO2% (BldA) [Mass fraction] 93 % Trent Alas MD Work Phone: [facility] 04-01-2024 11:20-0500 Diastolic blood pressure 63 mm[Hg] Trent Alas MD Work Phone: [facility] 04-01-2024 11:20-0500 Systolic blood pressure 114 mm[Hg] Trent Alas MD Work Phone: [facility] 04-01-2024 10:12-0500 Body temperature 98.01 [degF] Trent Alas MD Work Phone: [facility] 04-01-2024 07:43-0500 Body mass index (BMI) [Ratio] 37.62 kg/m2 Trent Alas MD Work Phone: [facility] 04-01-2024 07:43-0500 Body weight 81.65 kg Trent Alas MD Work Phone: [facility] 03-27-2024 08:00-0500 Body height 147.3 cm Trent Alas MD Work Phone: [facility] 03-27-2024 08:00-0500 Body mass index (BMI) [Ratio] 38.04 kg/m2 Trent Alas MD Work Phone: [facility] 03-27-2024 08:00-0500 Body weight 82.56 kg Trent Alas MD Work Phone: [facility] 03-27-2024 08:00-0500 Diastolic blood pressure 76 mm[Hg] Trent Alas MD Work Phone: [facility] 03-27-2024 08:00-0500 Heart rate 68 /min Trent Alas MD Work Phone: [facility] 03-27-2024 08:00-0500 Systolic blood pressure 113 mm[Hg] Trent Alas MD Work Phone: [facility] 02-28-2024 08:12-0500 Body height 147.3 cm Trent Alas MD Work Phone: [facility] 02-28-2024 08:12-0500 Body mass index (BMI) [Ratio] 38.04 kg/m2 Trent Alas MD Work Phone: [facility] 02-28-2024 08:12-0500 Body weight 82.56 kg Trent Alas MD Work Phone: [facility] 02-22-2024 17:10-0500 Body height 147.3 cm Monique Palma MD Work Phone: [facility] 02-22-2024 17:10-0500 Body mass index (BMI) [Ratio] 38.04 kg/m2 Monique Palma MD Work Phone: [employer] [facility] 02-22-2024 17:10-0500 Body temperature 98.01 [degF] Monique Palma MD Work Phone: [employer] [facility] 02-22-2024 17:10-0500 Body weight 82.56 kg Monique Palma MD Work Phone: [facility] 02-22-2024 17:10-0500 Diastolic blood pressure 68 mm[Hg] Monique Palma MD Work Phone: [facility] 02-22-2024 17:10-0500 Heart rate 88 /min Monique Palma MD Work Phone: [facility] 02-22-2024 17:10-0500 Respiratory rate 16 /min Monique Palma MD Work Phone: [facility] 02-22-2024 17:10-0500 SaO2% (BldA) [Mass fraction] 99 % Monique Palma MD Work Phone: [facility] 02-22-2024 17:10-0500 Systolic blood pressure 141 mm[Hg] Monique Palma MD Work Phone: [facility] 02-22-2024 08:04-0500 Body height 147.32 cm Cristobal Hornll SHOE CUTTER-C Work Phone: [facility] 02-22-2024 08:04-0500 Body mass index (BMI) [Ratio] 38.5 kg/m2 Cristobal Trill [employer] C[employer]TER-C Work Phone: [facility] 02-22-2024 08:04-0500 Body weight 83.57 kg Cristobal Trill SHOE C[employer]TER-C Work Phone: [facility] 05-21-2022 20:15-0400 Diastolic blood pressure 68 mm[Hg] Ángel Maddox MD Work Phone: [facility] 05-21-2022 20:15-0400 Heart rate 62 /min Ángel Maddox MD Work Phone: [facility] 05-21-2022 20:15-0400 Respiratory rate 16 /min Ángel Maddox MD Work Phone: [facility] 05-21-2022 20:15-0400 SaO2% (BldA) [Mass fraction] 96 % Ángel Maddox MD Work Phone: [facility] 05-21-2022 20:15-0400 Systolic blood pressure 114 mm[Hg] Ángel Maddox MD Work Phone: [facility] 05-21-2022 17:08-0400 Body height 147.3 cm Ángel Maddox MD Work Phone: [facility] 05-21-2022 17:08-0400 Body mass index (BMI) [Ratio] 35.95 kg/m2 Ángel Maddox MD Work Phone: [facility] 05-21-2022 17:08-0400 Body temperature 98.2 [degF] Ángel Maddox MD Work Phone: [facility] 05-21-2022 17:08-0400 Body weight 78.02 kg Ángel Maddox MD Work Phone: [facility] 04-28-2022 19:01-0400 Body height 147.3 cm Orlando Santosrakola DO Work Phone: [facility] 04-28-2022 19:01-0400 Body mass index (BMI) [Ratio] 35.53 kg/m2 Orlando Mudrakola DO Work Phone: [facility] 04-28-2022 19:01-0400 Body temperature 97.9 [degF] Orlando Mudrakola DO Work Phone: [facility] 04-28-2022 19:01-0400 Body weight 77.11 kg Orlando Mudrakola DO Work Phone: [facility] 04-28-2022 19:01-0400 Diastolic blood pressure 67 mm[Hg] Orlando Mudrakola DO Work Phone: [facility] 04-28-2022 19:01-0400 Heart rate 79 /min Orlando Mudrakola DO Work Phone: [facility] 04-28-2022 19:01-0400 Respiratory rate 18 /min Orlando Mudrakola DO Work Phone: [facility] 04-28-2022 19:01-0400 SaO2% (BldA) [Mass fraction] 97 % Orlando Membreno DO Work Phone: [facility] 04-28-2022 19:01-0400 Systolic blood pressure 123 mm[Hg] Orlando Membreno DO Work Phone: [facility] 02-21-2022 15:04-0500 Body height 147.32 cm [facility] 02-21-2022 15:04-0500 Body mass index (BMI) [Ratio] 39.2 kg/m2 [facility] 02-21-2022 15:04-0500 Body temperature 97.8 [degF] [facility] 02-21-2022 15:04-0500 Body weight 85.27 kg [facility] 02-21-2022 15:04-0500 Diastolic blood pressure 76 mm[Hg] [facility] 02-21-2022 15:04-0500 Heart rate 84 /min [facility] 02-21-2022 15:04-0500 Respiratory rate 15 /min [facility] 02-21-2022 15:04-0500 SaO2% (BldA) [Mass fraction] 96 % [facility] 02-21-2022 15:04-0500 Systolic blood pressure 136 mm[Hg] [facility] 01-14-2022 13:39-0500 Diastolic blood pressure 87 mm[Hg] [facility] 01-14-2022 13:39-0500 Heart rate 78 /min [facility] 01-14-2022 13:39-0500 Respiratory rate 16 /min [facility] 01-14-2022 13:39-0500 SaO2% (BldA) [Mass fraction] 97 % [facility] 01-14-2022 13:39-0500 Systolic blood pressure 127 mm[Hg] [facility] 01-14-2022 10:59-0500 Body height 147.32 cm [facility] Work Phone: 01-14-2022 10:59-0500 Body mass index (BMI) [Ratio] 34.4 kg/m2 [facility] 01-14-2022 10:59-0500 Body temperature 97.8 [degF] [facility] 01-14-2022 10:59-0500 Body weight 74.84 kg [facility] 07-13-2021 19:45-0400 Diastolic blood pressure 62 mm[Hg] MADELINE MENENDEZ MD [facility] 07-13-2021 19:45-0400 Heart rate 86 /min MADELINE MENENDEZ MD [facility] 07-13-2021 19:45-0400 Reason For Taking VItal Signs MADELINE MENENDEZ MD [facility] 07-13-2021 19:45-0400 Respiratory rate 16 /min MADELINE MENENDEZ MD [facility] 07-13-2021 19:45-0400 Systolic blood pressure 103 mm[Hg] MADELINE MENENDEZ MD [facility] 07-13-2021 18:39-0400 Diastolic blood pressure 64 mm[Hg] MADELINE MENENDEZ MD [facility] 07-13-2021 18:39-0400 Heart rate 92 /min MADELINE MENENDEZ MD [facility] 07-13-2021 18:39-0400 Respiratory rate 18 /min MADELINE MENENDEZ MD [facility] 07-13-2021 18:39-0400 Systolic blood pressure 102 mm[Hg] MADELINE MENENDEZ MD [facility] 07-13-2021 18:04-0400 Diastolic blood pressure 65 mm[Hg] MADELINE MENENDEZ MD [facility] 07-13-2021 18:04-0400 Heart rate 72 /min MADELINE MENENDEZ MD [facility] 07-13-2021 18:04-0400 Reason For Taking VItal Signs MADELINE MENENDEZ MD [facility] 07-13-2021 18:04-0400 Respiratory rate 20 /min MADELINE MENENDEZ MD [facility] 07-13-2021 18:04-0400 Systolic blood pressure 113 mm[Hg] MADELINE MENENDEZ MD [facility] 07-13-2021 17:09-0400 Body temperature 98.6 [degF] MADELINE MENENDEZ MD [facility] Encounters Encounter Date Encounter Type Care Provider Facility Start: 08-06-2024 End: 08-06-2024 ambulatory CRISTOBAL OTOOLE Facility:[facility] Start: 08-06-2024 Encounter for genera l adult medical examination without abnormal findings CRISTOBAL OTOOLE [facility] Start: 07-21-2024 End: 07-21-2024 Emergency department patient visit Cristobal Otoole NP-C Work Phone: -Emergency Department Work Phone: Start: 07-18-2024 End: 07-18-2024 Office outpatient visit 15 minutes Francine Medeiros PA-C Work Phone: [facility] Orthopedics and Sports Medicine - [place] Comment on above: Closed displaced fra cture of distal phalanx of left ring finger with routine healing, subsequent encounter (Primary Dx) Start: 07-18-2024 End: 07-18-2024 ambulatory FRANCINE MEDEIROS [facility] Start: 07-15-2024 End: 07-15-2024 ambulatory QUE MCKEON Facility:[facility] Start: 07-10-2024 End: 07-10-2024 ambulatory Cristobal Otoole NP-C Work Phone: [facility] Work Phone: Start: 07-10-2024 End: 07-10-2024 Discharged Recurring Cristobal Otoole SHOE CUTTER-C Work Phone: -Occupational Therapy Work Phone: Start: 07-09-2024 End: 07-09-2024 ambulatory ARJUN DANIELS Facility:[facility] Start: 06-14-2024 End: 06-14-2024 ambulatory BANG MANDUJANO Facility:[facility] Start: 06-11-2024 End: 06-11-2024 ambulatory YENNY OSMAN Facility:[facility] Start: 06-11-2024 End: 06-11-2024 ambulatory DEBBIE ARMAS Facility:[facility] Start: 06-10-2024 End: 06-10-2024 ambulatory DEBBIE ARMAS Facility:[facility] Start: 06-09-2024 End: 06-09-2024 ambulatory SANDEEP REYES Facility:[facility] Start: 06-06-2024 End: 06-06-2024 ambulatory QUEENIE SPARKS Facility:[facility] Start: 06-05-2024 End: 06-05-2024 Postop follow up visit related to original px Francine Medeiros PA-C Work Phone: [facility] Orthopedics - [place] Comment on above: Closed displaced fra cture of distal phalanx of left ring finger with routine healing, subsequent encounter (Primary Dx) Start: 06-05-2024 End: 06-05-2024 ambulatory FRANCINE [facility] Start: 06-04-2024 End: 06-04-2024 Subsequent hospital visit by physician Francine Medeiros PA-C Work Phone: [facility] Radiology Comment on above: Closed displaced fra cture of distal phalanx of left ring finger with routine healing, subsequent encounter Start: 06-04-2024 End: 06-04-2024 ambulatory FRANCINE [facility] Start: 05-22-2024 End: 05-22-2024 Documentation procedure Linda Randle PT [facility] [place] Comment on above: PT Discharge Start: 05-08-2024 End: 05-08-2024 Postop follow up visit related to original px Francine Martinezton PA-C Work Phone: [facility] - [place] Comment on above: Closed displaced fra cture of distal phalanx of left ring finger with routine healing, subsequent encounter (Primary Dx) Start: 05-08-2024 End: 05-08-2024 Subsequent hospital visit by physician Francine Medeiros PA-C Work Phone: [facility] Rad Comment on above: Closed displaced fra cture of distal phalanx of left ring finger with routine healing, subsequent encounter Start: 05-08-2024 End: 05-08-2024 ambulatory FRANCINE [facility] Start: 04-24-2024 End: 04-24-2024 Postop follow up visit related to original px Francine Martinezton PA-C Work Phone: [facility] Orthopedics Sharla Khanna Comment on above: Postoperative pain ( Primary Dx); Closed displaced fracture of distal phalanx of left ring finger with routine healing, subsequent encounter Start: 04-24-2024 End: 04-24-2024 ambulatory [facility] Start: 04-17-2024 End: 04-17-2024 [facility]: Start: 04-17-2024 End: 04-17-2024 ambulatory Cristobal Otoole NP Facility:[facility] Start: 04-11-2024 End: 04-11-2024 Postop follow up visit related to original px Francine Medeiros SHAHZAD-Chris Work Phone: [facility] Orthopedics and Sports [facility] - [place] Comment on above: Closed displaced fra cture of distal phalanx of left ring finger with routine healing, subsequent encounter Start: 04-11-2024 End: 04-11-2024 ambulatory FRANCINE [facility] Start: 04-10-2024 End: 04-10-2024 Postop follow up visit related to original px Francine Medeiros PA-C Work Phone: [facility] [place] Comment on above: Closed displaced fra cture of distal phalanx of left ring finger with routine healing, subsequent encounter (Primary Dx) Start: 04-10-2024 End: 04-10-2024 Subsequent hospital visit by physician Francine Waldemar ARGENIS Work Phone: [facility] Comment on above: Closed displaced fra cture of distal phalanx of left ring finger with routine healing, subsequent encounter Start: 04-10-2024 End: 04-10-2024 ambulatory FRANCINE [facility] Start: 04-04-2024 End: 04-04-2024 Postop follow up visit related to original px Trent Alas MD Work Phone: [facility] Orthopedics and Sports [facility] Sharla Shrestha Comment on above: Postoperative pain ( Primary Dx); Closed displaced fracture of distal phalanx of left ring finger with routine healing, subsequent encounter Start: 04-04-2024 End: 04-04-2024 ambulatory TRENT ALAS [facility] Start: 04-03-2024 End: 04-04-2024 Emergency department patient visit Jose Angel Casas MD Work Phone: [facility] EMERGENCY DEPT Comment on above: Post-op pain (Primar y Dx); History of hand surgery Start: 04-03-2024 End: 04-03-2024 Telephone encounter Trent Alas MD Work Phone: [facility] Orthopedics and Sports Medicine - [place] Comment on above: Post-op Problem (geno n) Start: 04-01-2024 End: 04-01-2024 ambulatory TRENT ALAS [facility] Start: 04-01-2024 End: 04-01-2024 Subsequent hospital visit by physician Trent Alas MD Work Phone: [facility] MAIN OR Comment on above: Postoperative pain ( Primary Dx) Start: 03-31-2024 End: 03-31-2024 ambulatory Francine Medeiros PA-C Work Phone: [facility] Orthopedics and Sports Medicine Sharla Shrestha Start: 03-28-2024 End: 03-28-2024 ambulatory Cristobal Otoole NP-C Work Phone: [facility] Work Phone: Start: 03-28-2024 End: 03-28-2024 Patient encounter procedure Brit Ramsey [place] [facility] Work Phone: Start: 03-27-2024 End: 03-31-2024 Telephone encounter Trent Aals MD Work Phone: [facility] Orth[facility]ics and Sports Medicine - [place] Comment on above: Surgery Scheduling ( Surgery scheduling slip) Start: 03-27-2024 End: 03-27-2024 Office outpatient visit 25 minutes Trent Alas MD Work Phone: [facility] Orthopedics [place] Comment on above: Closed displaced fra [...] subsequent encounter Start: 03-27-2024 End: 03-28-2024 ambulatory FRANCINE MEDEIROS [facility] Start: 03-13-2024 End: 03-13-2024 ambulatory CRISTOBAL OTOOLE Facility:[facility] Start: 03-12-2024 End: 03-12-2024 ambulatory CRISTOBAL OTOOLE Facility:[facility] Start: 03-11-2024 End: 03-11-2024 ambulatory CRISTOBAL OTOOLE Facility:[facility] Start: 03-11-2024 End: 03-11-2024 ambulatory CRISTOBAL OTOOLE Facility:[facility] Start: 03-10-2024 End: 03-10-2024 Follow-up encounter Cristobal Otoole Work Phone: [facility] [place] Comment on above: Torticollis (Primary Dx) Start: 03-10-2024 End: 03-10-2024 [facility] Start: 03-06-2024 End: 03-06-2024 [facility] Start: 03-06-2024 End: 03-06-2024 Follow-up encounter Linda Randle PT [facility] Therapy at [place] Comment on above: Torticollis (Primary Dx); Anesthesia of skin Start: 03-05-2024 End: 03-05-2024 ambulatory QUEENIE SPARKS Facility:[facility] Start: 02-28-2024 End: 02-28-2024 Office outpatient new 30 minutes Trent Alas MD Work Phone: [facility] - [place] Comment on above: Closed displaced fra cture of distal phalanx of left ring finger, initial encounter (Primary Dx) Start: 02-28-2024 End: 02-28-2024 ambulatory TRENT ALAS [facility] Start: 02-22-2024 End: 02-22-2024 Subsequent hospital visit by physician [facility] [employer] [facility] Radiology Comment on above: Arrived Start: 02-22-2024 End: 02-22-2024 Emergency department patient visit Monique Palma MD Work Phone: [facility] ED Comment on above: Closed nondisplaced fracture of distal phalanx of left ring finger, initial encounter (Primary Dx) Start: 02-22-2024 End: 02-22-2024 Patient encounter procedure Brit PIKE [facility] Work Phone: Start: 02-22-2024 End: 02-22-2024 ambulatory Cristobal Otoole NP Facility:[facility] Start: 02-18-2024 End: 02-18-2024 ambulatory Linda Randle PT [facility] at [place] Start: 02-18-2024 End: 02-18-2024 Anesthesia consultation Cristobal Otoole Work Phone: [facility] [place] Comment on above: Torticollis (Primary Dx); Anesthesia of skin Start: 02-15-2024 ambulatory Cristobal Otoole NP Facili ty:[facility] Start: 02-14-2024 End: 02-14-2024 Follow-up encounter Linda Randle PT [facility] Therapy at [place] Comment on above: Torticollis (Primary Dx) Start: 02-14-2024 End: 02-14-2024 ambulatory [facility] Start: 02-08-2024 End: 02-08-2024 Follow-up encounter Cristobal Otoole Work Phone: [facility] [place] Comment on above: Torticollis (Primary Dx) Start: 02-08-2024 End: 02-08-2024 ambulatory [facility] Start: 02-04-2024 End: 02-04-2024 Follow-up encounter Cristobal Otoole Work Phone: [facility] at [place] Comment on above: Torticollis (Primary Dx); Pain in left shoulder; Anesthesia of skin Start: 02-04-2024 End: 02-04-2024 ambulatory [facility] Start: 01-31-2024 End: 01-31-2024 Follow-up encounter Cherelle Valerio PTA [facility] Therapy at [place] Comment on above: Torticollis (Primary Dx); Pain in left shoulder Start: 01-31-2024 End: 01-31-2024 amb[facility] Start: 01-25-2024 End: 01-25-2024 ambulatory CRISTOBAL OTOOLE Facility:[facility] Start: 01-24-2024 End: 01-24-2024 Follow-up encounter Cristobal Otoole Work Phone: [facility] Therapy at [place] Comment on above: Torticollis (Primary Dx); Anesthesia of skin Start: 01-24-2024 End: 01-24-2024 [facility] Start: 01-21-2024 End: 01-21-2024 Follow-up encounter Cristobal Otoole Work Phone: [facility] at [place] Comment on above: Torticollis (Primary Dx); Anesthesia of skin Start: 01-21-2024 End: 01-21-2024 ambulatory CRISTOBAL OTOOLE [facility] Start: 01-17-2024 End: 01-17-2024 Follow-up encounter Cristobal Otoole Work Phone: [facility] Therapy at [place] Comment on above: Anesthesia of skin ( Primary Dx) Start: 01-17-2024 End: 01-17-2024 [facility] Start: 01-10-2024 End: 01-10-2024 Anesthesia consultation Cristobal Otoole Work Phone: [facility] at [place] Comment on above: Anesthesia of skin; Torticollis; Pain in left shoulder Start: 01-10-2024 End: 01-10-2024 ambulatory Linda Randle [facility] Therapy at [place] Start: 01-07-2024 End: 01-07-2024 Subsequent hospital visit by physician Sabas Reyes DP Work Phone: [facility] Neuro Comment on above: Neuralgia and neurit is, unspecified; Pain in left foot; Pain in right foot Start: 01-07-2024 End: 01-07-2024 ambulatory Sabas Reyes DPM Work Phone: [facility] Therapy at [place] Comment on above: Plantar fascial fibr omatosis (Primary Dx); Pain in left foot; Pain in right foot; Neuralgia and neuritis, unspecified Start: 01-02-2024 End: 01-02-2024 Follow-up encounter Cherelle Valerio [facility] Therapy at [place] Comment on above: Plantar fascial fibr omatosis (Primary Dx); Pain in left foot; Pain in right foot; Neuralgia and neuritis, unspecified Start: 01-02-2024 End: 01-02-20[address] [facility] [facility] Start: 01-01-2024 End: 01-01-2024 ambulatory CRISTOBAL OTOOLE Facility:[facility] Start: 12-31-2023 End: 12-31-2023 Follow-up encounter Sabas Reyes DPM Work Phone: [facility] Therapy at [place] Comment on above: Plantar fascial fibr omatosis (Primary Dx) Start: 12-31-2023 End: 12-31-2023 [facility] Start: 12-28-2023 End: 03-28-2024 Transcribe Orders Sabas Reyes DPM Work Phone: [facility] Comment on above: Neuralgia and neurit is, unspecified; Pain in left foot; Pain in right foot; Anesthesia of skin; Torticollis; Pain in left shoulder Start: 12-27-2023 End: 12-27-2023 [address] [facility] Start: 12-27-2023 End: 12-27-2023 Follow-up encounter Cherelle Valerio PTA [facility] Therapy at [place] Comment on above: Plantar fascial fibr omatosis (Primary Dx); Pain in left foot; Pain in right foot; Neuralgia and neuritis, unspecified Start: 12-22-2023 End: 12-22-2023 ambulatory [facility] Start: 12-22-2023 End: 12-22-2023 Follow-up encounter Sabas Reyes DPM Work Phone: [facility] at [place] Comment on above: Plantar fascial fibr omatosis (Primary Dx); Pain in left foot; Pain in right foot; Neuralgia and neuritis, unspecified Start: 12-20-2023 End: 12-20-2023 Follow-up encounter Lindsey Mcgregor [facility] at [place] Comment on above: Plantar fascial fibr omatosis (Primary Dx); Pain in left foot; Pain in right foot; Neuralgia and neuritis, unspecified Start: 12-20-2023 End: [facility]: 12-15-2023 End: 12-15-2023 Follow-up encounter Sabas Reyes DPM Work Phone: [facility] at [place] Comment on above: Plantar fascial fibr omatosis (Primary Dx); Pain in left foot; Pain in right foot Start: 12-15-2023 End: 12-15-2023 [facility] Start: 12-13-2023 End: 12-13-2023 Follow-up encounter Sabas Reyes DPM Work Phone: [facility] at [place] Comment on above: Plantar fascial fibr omatosis (Primary Dx); Pain in left foot; Pain in right foot; Neuralgia and neuritis, unspecified Start: 12-13-2023 End: 12-13-2023 [address] [facility] Start: 12-12-2023 End: 12-12-2023 ambulatory YENNY OSMAN Facility:[facility] Start: 12-11-2023 End: 12-11-2023 ambulatory DEBORAH TEIXEIRA Facility:[facility] Start: 12-10-2023 End: 12-10-2023 ambulatory CRISTOBAL OTOOLE Facility:[facility] Start: 12-07-2023 End: 12-07-2023 ambulatory CRISTOBAL OTOOLE Facility:[facility] Start: 12-05-2023 End: 12-05-2023 ambulatory Sabas Reyes DPM Work Phone: [facility] Therapy at [place] Comment on above: Plantar fascial fibr omatosis (Primary Dx); Pain in left foot; Pain in right foot; Neuralgia and neuritis, unspecified Start: 11-28-2023 End: 11-28-2023 Follow-up encounter Cherelle Valerio PTA [facility] Therapy at [place] [place] Comment on above: Plantar fascial fibr omatosis (Primary Dx); Pain in left foot; Pain in right foot; Neuralgia and neuritis, unspecified Start: 11-28-2023 End: 11-28-2023 ambulatory [facility] Start: 11-26-2023 End: 11-26-2023 Follow-up encounter Sabas Reyes DPM Work Phone: [facility] Therapy at [place] Comment on above: Plantar fascial fibr omatosis (Primary Dx); Pain in left foot; Neuralgia and neuritis, unspecified; Pain in right foot Start: 11-26-2023 End: 11-26-2023 ambulatory [facility] Start: 11-21-2023 End: 11-21-2023 [facility] Start: 11-21-2023 End: 11-21-2023 Follow-up encounter Linda Randle [facility] Therapy at [place] Comment on above: Plantar fascial fibr omatosis (Primary Dx); Pain in left foot; Neuralgia and neuritis, unspecified; Pain in right foot Start: 11-19-2023 End: 11-19-2023 Follow-up encounter Cherelle Valerio PTA [facility] at [place] Comment on above: Plantar fascial fibr omatosis (Primary Dx); Pain in left foot Start: 11-19-2023 End: 11-19-2023 ambulatory [facility] Start: 11-14-2023 End: 11-14-2023 ambulatory [facility] Start: 11-14-2023 End: 11-14-2023 Follow-up encounter Sabas Reyes DPM Work Phone: [facility] at [place] Comment on above: Plantar fascial fibr omatosis (Primary Dx); Pain in left foot Start: 11-08-2023 End: 11-08-2023 Emergency department patient visit Cristobal Otoole NP Facility:[facility] Start: 10-31-2023 End: 10-31-2023 ambulatory Sabas SINGHM Work Phone: [facility] at [place] Comment on above: Plantar fascial fibr omatosis; Pain in left foot; Neuralgia and neuritis, unspecified Start: 10-24-2023 End: 01-23-2024 Transcribe Orders Sabas SINGHM Work Phone: [facility] Comment on above: Plantar fascial fibr omatosis (Primary Dx); Pain in left foot; Neuralgia and neuritis, unspecified Start: 10-04-2023 End: 10-04-2023 ambulatory CRISTOBAL OTOOLE Facility:[facility] Start: 09-26-2023 End: 09-26-2023 Documentation procedure Myrtle Garcia PT [facility] The [facility] at [facility] Comment on above: PT Discharge Start: 09-18-2023 End: 09-18-2023 ambulatory CRISTOBAL OTOOLE Facility:[facility] Start: 09-18-2023 End: 09-18-2023 Emergency department patient visit Cristobal Otoole NP Facility:[facility] Start: 09-11-2023 End: 09-12-2023 ambulatory YENNY OSMAN Facility:[facility] Start: 08-28-2023 End: 08-28-2023 ambulatory EDWIN CHEUNG Facility:[facility] Start: 08-27-2023 End: 08-27-2023 ambulatory CRISTOBAL OTOOLE Facility:[facility] Start: 08-22-2023 End: 08-22-2023 ambulatory Sabas Reyes DPM Work Phone: [facility] Comment on above: Plantar fascial fibr omatosis; Pain in left foot; Pain in right foot Start: 08-20-2023 End: 11-19-2023 Transcribe Orders Sabas Reyes DPM Work Phone: [facility] Comment on above: Plantar fascial fibr omatosis (Primary Dx); Pain in left foot; Pain in right foot Start: 08-17-2023 End: 08-18-2023 Emergency department patient visit CRISTOBAL OTOOLE [facility] Start: 05-18-2023 End: 05-18-2023 ambulatory SABAS REYES Facility:[id number] Start: 10-24-2022 ambulatory QUE MCKEON Facility :[facility] Start: 07-05-2022 Transcribe Orders Sabas watson DPM Work Phone: [facility] Comment on above: Spontaneous rupture of extensor tendons, left lower leg (Primary Dx); Short Achilles tendon (acquired), left ankle; Plantar fascial fibromatosis Start: 05-21-2022 End: 05-21-2022 Subsequent hospital visit by physician [facility] Exam Room [address] [facility] [address] Comment on above: Arrived Start: 05-21-2022 End: 05-21-2022 Emergency department patient visit Ángel Maddox MD Work Phone: [facility] ED Comment on above: Flank pain (Primary Dx) Start: 04-28-2022 End: 04-28-2022 Emergency department patient visit Orlando Mateuszyumiko Work Phone: [facility] ED Comment on above: Migraine with aura a nd without status migrainosus, not intractable (Primary Dx) Start: 02-21-2022 End: 02-21-2022 Emergency department patient visit [facility] Start: 01-14-2022 End: 01-14-2022 Emergency department patient visit [facility] Start: 10-27-2021 ambulatory CRSITOBAL [facility] y:[facility] Start: 07-13-2021 End: 07-13-2021 Emergency department patient visit MADELINE MENENDEZ MD [facility] Start: 12-10-2017 Emergency department patient visit UNKNOWN PROVIDER [facility] Start: 08-11-2016 End: 08-12-2016 Ambulatory ANIL HOSKINS Facility:[facility] Procedures Date Procedure Procedure Detail Performing Clinician Start: 04-17-2024 X-ray of cervical spine Cristobal Trill SHOE CUTTER-C Work Phone: Start: 04-10-2024 Radex hand minimum 3 views Francine PIKE-C Work Phone: Start: 04-03-2024 Radex hand minimum 3 views Jose Angel Casas MD Work Phone: Start: 04-03-2024 Basic metabolic pane l calcium total Jose Angel Casas MD Work Phone: Start: 04-03-2024 C-reactive protein Cornell Casas MD Work Phone: Start: 03-28-2024 MRI of cervical spine K josy Trill SHOE CUTTER-C Work Phone: Start: 03-27-2024 Radex fingr minimum 2 views Francine PIKE-C Work Phone: Start: 02-22-2024 Radex fingr minimum 2 views Monique Palma MD Work Phone: Start: 02-22-2024 PB ED PLACEHOLDER Shonna Palma MD Work Phone: Start: 02-22-2024 X-ray of lumbosacral spine Cristobal Trill SHOE CUTTER-C Work Phone: Start: 05-21-2022 Urinalysis complete panel [...] for Adults (1 - 1-dose 75+ series) [facility] Start: 2035 RSV Immunization age d 60 or older (1 - 1-dose 60+ series) RSV Immunization aged 60 or older (1 - 1-dose 60+ series) [facility] Start: 11-07-2033 DTaP/Tdap/Td Vaccine s (4 - Td or Tdap) DTaP/Tdap/Td Vaccines (4 - Td or Tdap) [facility] Start: 10-14-2030 DTaP/Tdap/Td Vaccine s (2 - Td or Tdap) DTaP/Tdap/Td Vaccines (2 - Td or Tdap) [facility] Start: 10-14-2030 DTaP/Tdap/Td Vaccine s (3 - Td or Tdap) DTaP/Tdap/Td Vaccines (3 - Td or Tdap) [facility] Start: 2025 Screening for malign ant neoplasm of lung Lung Cancer Screening [facility] Start: 2025 Zoster Vaccines (1 o f 2) Zoster Vaccines (1 of 2) [facility] Start: 10-06-2024 Influenza vaccination Influenz a Vaccine (Season Ended) [facility] Start: 07-21-2024 [facility] Start: 07-18-2024 End: 07-18-2024 Patient encounter procedure 07/18/2024 8:00 AM EDT Office Visit [facility] [address] [facility] [address] [place] [address] Francine Medeiros PA-C [address] [facility] [address] [place], [place] [phone] [facility] [place] [facility] Start: 06-05-2024 End: 06-05-2024 Patient encounter procedure 06/05/2024 1:30 PM EDT Office Visit [facility] Gita [address] [place] [address] [place] [address] Francine Medeiros PA-C [address] [facility] [address] [place], [place] [id number] [facility] Gabino Khanna Start: 05-29-2024 End: 05-29-2025 XR Hand - left 3 Views XR hand 3+ views left Imaging Routine Closed displaced fracture of distal phalanx of left ring finger with routine healing, subsequent encounter Expected: 05/29/2024, Expires: 05/29/2025 [facility] Work Phone: Comment on above: Expected: 05/29/2024 , Expires: 05/29/2025 Start: 05-08-2024 End: 05-08-2024 Patient encounter procedure 05/08/2024 8:00 AM EDT [facility] [place] [facility] [address] [place] [address] [place] [address] Francine Medeiros PA-C [address] [facility] [address] [place] [address] [facility] Gabino Khanna Start: 05-01-2024 End: 05-01-2025 XR Hand - left 3 Views XR hand 3+ views left Imaging Routine Closed displaced fracture of distal phalanx of left ring finger with routine healing, subsequent encounter Expected: 05/01/2024, Expires: 05/01/2025 [facility] Work Phone: Comment on above: Expected: 05/01/2024 , Expires: 05/01/2025 Start: 04-17-2024 Patient referral [facility] Work Phone: Start: 04-11-2024 End: 04-11-2024 Patient encounter procedure 04/11/2024 2:45 PM EST Office Visit [facility] - Brian Shrestha [address] [facility] [address] [place] [address] Francine Medeiros PA-C [address] [facility] [address] [place] [address] [facility] [place] [facility] [place] Start: 04-10-2024 End: 04-10-2024 Patient encounter procedure 04/10/2024 9:00 AM EST Office Visit [facility] Gabino Khanna [address] [place] [address] [place] [phone] Francine Medeiros PA-C [address] [facility] [address] [place] [address] [facility] Gabino Khanna Start: 04-02-2024 End: 04-02-2024 Follow-up encounter [facility] [place] Start: 04-01-2024 End: 04-01-2024 Admission to same day surgery center [facility] MA[facility] OR Comment on above: CLOSED REDUCTION PER CUTANEOUS PINNING LEFT RING FINGER DISTAL PHALANX FRACTURE [11923 (CPT )] Start: 04-01-2024 End: 04-01-2024 Prq skel fixj dstl phlngl fx fngr/thmb ea [facility] Operating Room Start: 04-01-2024 Subsequent hospital visit by physician [facility] MAIN OR Start: 03-31-2024 End: 03-31-2024 Admission to establishment 03/31/2024 9:30 AM EST Pre-Admission Testing [facility] Pre-Admit Testing [address] [place] [phone] Trent Alas MD [address] [facility] [address] [place] [address] [facility] Pre-Admit Testing Start: 03-27-2024 End: 03-27-2024 Follow-up encounter [facility] Therapy at [place] [facility] Start: 03-27-2024 End: 03-27-2024 Patient encounter procedure 03/27/2024 8:00 AM EST [facility] [place] [facility] Gita [address] [place] [address] [place] [phone] Trent Alas MD [address] [facility] [address] [place], [place] [address] [facility] Start: 03-20-2024 End: 03-20-2024 Follow-up encounter 03/20/2024 8:30 AM EST [facility] at [place] [facility] [address] [address] [place] [address] Cherelle Valerio PTA [facility] Start: 03-13-2024 End: 03-13-2024 Follow-up encounter 03/13/2024 8:30 AM EST [facility] [address] [place] [address] [place] [phone] Cherelle Valerio PTA [facility] Start: 03-10-2024 End: 03-10-2024 Follow-up encounter 03/10/2024 2:30 PM EST [facility] [address] [place] [address] Lindsey Mcgregor PTA [facility] Start: 03-06-2024 End: 03-06-2024 Follow-up encounter 03/06/2024 8:30 AM EST Follow-Up [facility] Therapy at [address] [place] [address] Linda Randle, PT [facility] Start: 02-28-2024 End: 02-28-2024 Follow-up encounter [facility] Start: 02-18-2024 End: 02-18-2024 ambulatory [facility] at [facility] [place] Start: 02-16-2024 End: 02-16-2024 Follow-up encounter 02/16/2024 8:00 AM EST Follow-Up [facility] [address] [place] [address] [place] [address] Natalie Flaherty PTA [facility] at [place] [facility] [place] Start: 02-14-2024 End: 02-14-2024 Follow-up encounter 02/14/2024 8:00 AM EST Follow-Up [facility] at [facility] [place] [address] [place] [address] Linda Randle, DONNA [facility] at [place] [facility] [place] Start: 02-12-2024 End: 02-12-2024 Follow-up encounter 02/12/2024 12:00 PM EST Follow-Up [facility] at [address] [place] [address] Linda Randle, PT [facility] Start: 02-11-2024 End: 02-11-2024 Follow-up encounter 02/11/2024 8:00 AM EST Follow-Up [facility] [place] [address] [place] [address] [place] [address] Linda Randle, PT [facility] Start: 02-08-2024 End: 02-08-2024 Follow-up encounter 02/08/2024 11:30 AM EST Follow-Up [facility] at [place] [place] [address] [place] [address] Cherelle Valerio, MEDICARE SALES EXECUTIVE [facility] Start: 02-07-2024 End: 02-07-2024 Follow-up encounter 02/07/2024 7:30 AM EST Follow-Up [facility] at [place] [place] [address] [place] [address] Cherelle Valerio, MEDICARE SALES EXECUTIVE [facility] Start: 02-04-2024 End: 02-04-2024 Follow-up encounter 02/04/2024 8:30 AM EST Follow-Up [facility] at [place] [place] [address] [place] [address] Cherelle Valerio, MEDICARE SALES EXECUTIVE [facility] Start: 01-31-2024 End: 01-31-2024 Follow-up encounter 01/31/2024 8:00 AM EST Follow-Up [facility] at [address] [place] [address] [place] [address] Cherelle Valerio, MEDICARE SALES EXECUTIVE [facility] Start: 01-28-2024 End: 01-28-2024 Follow-up encounter 01/28/2024 7:30 AM EST Follow-Up [facility] at [place] [place] [address] Lindsey Mcgregor, ELAN [facility] Start: 01-24-2024 End: 01-24-2024 Follow-up encounter 01/24/2024 8:00 AM EST Follow-Up [facility] [address] [address] Linda Randle PT [facility] Start: 01-21-2024 End: 01-21-2024 Follow-up encounter 01/21/2024 7:30 AM EST Follow-Up [facility] at [address] [place] [address] Lindsey Mcgregor, ELAN [facility] Start: 01-17-2024 End: 01-17-2024 Follow-up encounter [facility] Start: 01-10-2024 End: 01-10-2024 ambulatory 01/10/2024 8:00 AM EST Evaluation [facility] at [address] [place] [address] Linda Randle PT [facility] Start: 01-07-2024 End: 01-07-2024 Patient encounter procedure 01/07/2024 2:00 PM EST Appointment [facility] [address] [place] [address] [place] [address] Sabas Reyes, DPFlorentino [address] [place] [address] & [place] [phone] [facility] Start: 01-07-2024 End: 01-07-2024 ambulatory 01/07/2024 8:00 AM EST Evaluation [facility] at [address] [place] [address] Linda Randle, DONNA [facility] Start: 01-05-2024 End: 01-05-2024 [facility] [place] Start: 01-02-2024 End: 01-02-2024 Follow-up encounter 01/02/2024 8:00 AM EST Follow-Up [facility] at [facility] [address] [place] [address] Cherelle Valerio PTA [facility] Therapy at [place] Start: 12-31-2023 End: 12-31-2023 Follow-[facility] encounter [facility] [place] Start: 12-29-2023 End: 12-29-2023 Follow-up encounter 12/29/2023 7:00 AM EST [facility] at [place] [address] [address] [place] [address] Amie Loyola PTA [facility] at [place] Start: 12-28-2023 End: 12-27-2024 Nerve conduction test with EMG Nerve conduction test with EMG Neurology Routine Neuralgia and neuritis, unspecified Pain in left foot Pain in right foot Expected: 12/28/2023 (Approximate), Expires: 12/27/2024 [facility] Work Phone: Comment on above: Expected: 12/28/2023 (Approximate), Expires: 12/27/2024 Start: 12-27-2023 End: 12-27-2023 Follow-up encounter 12/27/2023 8:00 AM EST [facility] [place] [address] [place] [address] [place] [address] Cherelle Valerio PTA [facility] at [place] Start: 12-24-2023 End: 12-24-2023 Follow-up encounter 12/24/2023 8:00 AM EST [facility] at [place] [facility] [address] [place] [address] [place] [address] Cherelle Valerio PTA [facility] [place] Start: 12-22-2023 End: 12-22-2023 Follow-up encounter [facility] [place] Start: 12-20-2023 End: 12-20-2023 Follow-up encounter 12/20/2023 1:00 PM EST Follow-Up [facility] at [place] [address] [place] [address] [place] [address] Linda Randle PT [facility] at [place] [facility] Start: 12-18-2023 End: 12-18-2023 Follow-up encounter 12/18/2023 8:00 AM EST Follow-Up [facility] at [place] [place] [address] [place] [address] Lindsey Mcgregor PTA [facility] Start: 12-15-2023 End: 12-15-2023 Follow-up encounter 12/15/2023 8:00 AM EST Follow-Up [facility] at [place] [place] [address] [place] [address] Sabas Reyes, GABBY [address] [place] [address] Kalpesh Dumont PTA [facility] at [place] Start: 12-13-2023 End: 12-13-2023 Follow-up encounter 12/13/2023 10:30 AM EST Follow-Up [facility] at [place] [place] [address] [place] [address] Sabas Reyes, GABBY [address] [place] [address] Cherelle Valerio PTA [facility] at [place] [facility] Start: 12-05-2023 End: 10-30-2024 ambulatory 12/05/2023 9:00 AM EDT Evaluation [facility] [place] [address] [place] [address] [place] [address] Sabas Reyes, GABBY [address] [place] [address] Linda Randle, PT [facility] at [facility] [place] Start: 12-03-2023 End: 12-03-2023 ambulatory 12/03/2023 9:00 AM EDT Evaluation [facility] at [facility] [place] [address] [address] [place] [address] Linda Randle, PT [facility] [place] [facility] [place] Start: 11-28-2023 End: 11-28-2023 Follow-up encounter 11/28/2023 8:30 AM EDT Follow-Up [facility] at [facility] [place] [address] [address] [place] [address] Cherelle Valerio PTA [facility] [place] [facility] [place] Start: 11-26-2023 End: 11-26-2023 Follow-up encounter 11/26/2023 9:00 AM EDT Follow-Up [facility] [place] [facility] [place] [address] [address] [place] [address] Cherelle Valerio PTA [facility] [place] [facility] [place] Start: 11-21-2023 End: 11-21-2023 Follow-up encounter 11/21/2023 9:00 AM EDT Follow-Up [facility] [place] [facility] [place] [address] [address] [place] [address] Linda Randle, PT [facility] [place] [facility] [facility] [place] Start: 11-19-2023 End: 11-19-2023 Follow-up encounter 11/19/2023 9:00 AM EDT Follow-Up [facility] [place] [facility] [facility] [place] [address] [place] [address] Cherelle Valerio PTA [facility] Therapy at [place] Start: 10-07-2023 COVID-19 Vaccine ( season) COVID-19 Vaccine ( season) [facility] Start: 10-07-2023 COVID-19 Vaccine ( season) COVID-19 Vaccine ( season) [facility] Start: 10-07-2023 Influenza vaccination Influenza Vacc ine (#1) [facility] Start: 10-06-2022 COVID-19 Vaccine ( season) COVID-19 Vaccine () [facility] Start: 10-06-2022 Influenza vaccination Influenza Vacc ine (#1) [facility] Start: 07-05-2022 End: 07-06-2023 MR Ankle - left WO contrast MR ankle left wo contrast Imaging Routine Spontaneous rupture of extensor tendons, left lower leg Short Achilles tendon (acquired), left ankle Plantar fascial fibromatosis Expected: 07/05/2022, Expires: 07/06/2023 [facility] Work Phone: Comment on above: Expected: 07/05/2022 , Expires: 07/06/2023 Start: 02-04-2022 Pneumococcal Vaccine : Pediatrics (0 to 5 Years) and At-Risk Patients (6 to 49 Years) (2 of 2 - PCV) Pneumococcal Vaccine: Pediatrics (0 to 5 Years) and At-Risk Patients (6 to 49 Years) (2 of 2 - PCV) [facility] Start: 02-04-2022 Pneumococcal Vaccine : Pediatrics (0 to 5 Years) and At-Risk Patients (6 to 64 Years) (2 - PCV) Pneumococcal Vaccine: Pediatrics (0 to 5 Years) and At-Risk Patients (6 to 64 Years) (2 - PCV) [facility] Start: 02-04-2022 Pneumococcal Vaccine : Pediatrics (0 to 5 Years) and At-Risk Patients (6 to 64 Years) (2 of 2 - PCV) Pneumococcal Vaccine: Pediatrics (0 to 5 Years) and At-Risk Patients (6 to 64 Years) (2 of 2 - PCV) [facility] Start: 10-06-2021 Influenza vaccination Influenza Vacc ine (#1) [facility] Start: 2015 Screening for malign ant neoplasm of breast Mammogram [facility] Start: 2005 Screening for malign ant neoplasm of cervix [facility] Start: 01-09-1996 Screening for malign ant neoplasm of cervix Pap Smear [facility] Start: 1994 Hepatitis B Vaccines (1 of 3 - 19+ 3-dose series) Hepatitis B Vaccines (1 of 3 - 19+ 3-dose series) [facility] Start: 1993 Diabetes mellitus screening Diabetes Screening [facility] Start: 1993 Hepatitis C screening Hepatitis C Sc reening [facility] Start: 1987 Depression Screening Depression Scre ening [facility] Start: 1981 Pneumococcal Vaccine : Pediatrics (0 to 5 Years) and At-Risk Patients (6 to 64 Years) (1 - PCV) Pneumococcal Vaccine: Pediatrics (0 to 5 Years) and At-Risk Patients (6 to 64 Years) (1 - PCV) [facility] Start: 01-09-1976 MMR Vaccines (1 of 1 - Standard series) MMR Vaccines (1 of 1 - Standard series) [facility] Start: 1975 COVID-19 Vaccine (#1) COVID-19 Vacci ne (#1) [facility] Start: 1975 Hepatitis B Vaccines (1 of 3 - 3-dose series) Hepatitis B Vaccines (1 of 3 - 3-dose series) [facility] Start: 1975 HIV screening HIV Screening [facility] Start: 1975 Lipid panel Lipid Panel [facility] Start: 1975 Screening for malign ant neoplasm of colon [facility] End: 01-07-2024 Nerve conduction test with EMG [facility] Work Phone: Comment on above: Once for 1 Occurrenc es starting 01/07/2024 until 01/07/2024 OUTSIDE PROCEDURE SCAN OUTSIDE P ROCEDURE SCAN Procedures Ordered: 12/31/2023 [facility] Comment on above: Ordered: 12/31/2023 Patient Education [facility] Work Phone: Patient referral [facility] Work Phone: End: 05-08-2024 XR Hand - left 3 Views [facility] Comment on above: Once for 1 Occurrenc es starting 05/08/2024 until 05/08/2024 End: 06-04-2024 XR Hand - left 3 Views [facility] Work Phone: Comment on above: Once for 1 Occurrenc es starting 06/04/2024 until 06/04/2024 Immunizations Immunization Date Immunization Notes Care Provider Saumya benitez 11-08-2023 tetanus toxoid, redu tomy diphtheria toxoid, and acellular pertussis vaccine, adsorbed Cristobal Trill SHOE CUTTER-C Work Phone: [facility] 01-05-2022 influenza virus vaccine, unspecified formulation Sabas Reyes DPM Work Phone: [facility] 10-14-2020 tetanus toxoid, redu tomy diphtheria toxoid, and acellular pertussis vaccine, adsorbed [facility] 12-20-2014 Influenza virus vaccine [facility] 12-20-2014 influenza virus vaccine, unspecified formulation Orlando Membreno DO Work Phone: [facility] Payers Date Payer Category Payer Self-pay [id number] 2021 Medicaid [id number] 2021 Medicaid HMO [id number] 2014 Medicaid [id number] 2014 Medicaid [id number] 1975 Unknown [id number] 2.16.8 [id number] Unknown Unknown [id number] 2.16.8 [id number] Unknown [id number] 2.16.8 [id number] Unknown [id number] 2.16.8 [id number] Unknown [id number] 2.16.8 [id number] Unknown [id number] 2.16.8 [id number] Unknown [id number] 2.16.8 [id number] Unknown [id number] 2.16.8 [id number] Unknown [id number] 2.16.8 [id number] Unknown [id number] 2.16.8 [id number] Unknown [id number] 2.16.8 [id number] Social History Date Type Detail Facility Tobacco smoking status Ex-smoker (finding ) [facility] Sex Assigned At Sex [facility] Start: 01-14-2022 End: 02-21-2022 Tobacco smoking status HIIS Unknown if ever smoked [facility] Start: 11-29-2018 Cigarettes [facility] Start: 1975 Sex Assigned At Female [facility] Start: 12-03-2021 End: 07-21-2024 Tobacco smoking status HIIS Smokes tobacco daily [facility] Start: 02-06-1984 History of tobacco use Cigarette Smo ker [facility] Start: 04-28-2022 End: 02-28-2024 Alcohol intake Ex-drinker (finding) [facility] Start: 05-21-2022 History SDOH Alcohol Frequency 1 [facility] Start: 05-21-2022 History SDOH Alcohol Std Drinks 0 [facility] Start: 1975 Sex Assigned At Not on file S [facility] Start: 04-18-2022 End: 05-21-2022 Exposure to SARS-CoV-2 (event) Not sure [facility] Start: 05-21-2022 End: 04-03-2024 History of Social function [facility] Start: 05-21-2022 End: 04-03-2024 Alcohol Use Disorder Identification Test - Consumption [AUDIT-C] [facility] How often to you hav e a drink containing alcohol? Never [facility] How many standard dr inks containing alcohol do you have on a typical day? Patient does not drink [facility] Start: 09-05-2021 End: 04-10-2024 Sex Female (finding) [facility] How often to you hav e a drink containing alcohol? Monthly or less [facility] How many standard dr inks containing alcohol do you have on a typical day? 1 or 2 [facility] Start: 03-31-2024 Tobacco Comment Has cut smokin g back for surgery [facility] Start: 04-01-2024 End: 04-03-2024 Alcoholic beverage intake Current drinker of alcohol (finding) [facility] Start: 04-01-2024 Alcohol Comment occasional [facility] NEGATED: Highlighted row [facility] Functional Status Date Assessment Result Facility 07-13-2021 Functional Status ID band on, Allergy Band on, Call device within reach, Bed in low position, Wheels locked, Upper/Half-Length side-rails up, Bedside Cart Locked, Visitor at bedside, Safety level maintained [facility] 07-13-2021 Functional Status [facility] Mental Status Date Assessment Result Facility 01-14-2022 Cognitive function Level Of Cons ciousness Awake;Alert;Appropriate;Follow s Commands [facility] Work Phone: 07-13-2021 Mental Status Orientation Oriented x 4 [facility] 07-13-2021 Mental Status [facility] Clinical Notes 07-13-2021 to 08-06-2024 Note Date & Type Note Facility 08-06-2024 Note HNO ID: [id number] Author: CRISTOBAL OTOOLE APRN.POLISHER HAND Service: ? Author Type: Nurse Practitioner Type: Progress Notes Filed: 08/06/2024 09:55 Note Text: Subjective The patient consented to the use of ambient AI software for draft documentation of the visit consistent with [facility]?s Notice of Privacy Practices. HPI Preventative Health: Breast cancer screening - Last mammogram March 2023 Cervical cancer screening - S/P hysterectomy 2019 for chronic pain/fibroids Colorectal cancer screening - Colonoscopy 2017 = normal, repeat 10 years Osteoporosis screening - na Lipid screening - July 2023 Petar Alcocer is a 49-year-old female with a history of migraines, presenting for well adult exam Petar reports an increase in migraine frequency and severity. She is currently on Ajovy, administered once monthly, and also takes antiemetics and other unspecified medications for migraine management. She is undergoing treatment prior to receiving Botox injections. She notes some relief from her current regimen but continues to experience significant migraine episodes. Petar has been engaging in regular exercise every morning for the past 2 months but expresses frustration over not losing weight, currently weighing 190 lbs. She reports a decrease in appetite and more selective eating habits. She consumes sandwiches, typically with cheese, bologna, mustard, and mayonnaise, and has resumed drinking Coca-Cola after a 3-year hiatus. She denies drinking coffee. She is a smoker and notes an increase in smoking due to recent stress. She also reports severe left shoulder pain that has been ongoing for 1-2 years. The pain is exacerbated when bending down, describing it as extremely painful and causing dyspnea. She has been exercising the shoulder but continues to experience significant discomfort. Petar recently sustained an oral injury from a chip, which led to an infection. She was prescribed antibiotics by her dentist but has not yet filled the prescription due to car issues. She has been using peroxide and a soft toothbrush to manage the infection.She was referred to see an oral surgeon but does not wish to see one at this time. She also mentions a history of a finger fracture, for which she underwent physical therapy. She reports improvement in finger mobility but notes that the finger appears crooked. She has been taking murx-avc-crjzznh vitamin D to aid in bone healing. She is currently taking simvastatin 40 mg, but has been taking it in the morning instead of at bedtime due to drowsiness. She denies any issues with her breasts but reports nipple protrusion in warm weather, which she manages by covering them with band-aids. 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 She expresses reluctance to undergo a mammogram due to previous painful experiences. Hx right renal cell carcinoma, S/P right partial nephrectomy done [address] Sravan Vasquez, last visit regarding this was in 2019 - recommended yearly follow up Still follows with urology for bladder issues I reviewed past medical, surgical, social, and family histories today and updated chart. Allergies, chronic medications, and supplements were also reviewed. 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 [facility] 07-30-2024 Note HNO ID: [id number] Author: QUE MCKEON MD Service: ? Author Type: Physician Type: Progress Notes Filed: 07/30/2024 00:35 Note Text: Que Mckeon MD Department of Orthopaedics [facility] [address] [place] [address] Dept: [phone] July 30, 2024 CHIEF COMPLAINT: New and Pain of the Left Shoulder HPI Petar Alcocer is a 49-year-old female presenting with left shoulder pain. Petar reports a couple month history of left shoulder pain localized to the area behind the shoulder blade. The pain is described as a persistent cramp-like sensation that intensifies when bending forward, causing significant discomfort and dyspnea. The pain does not occur with shoulder movement, shrugging, or lying down. She notes that the pain is exacerbated by her work in [employer], which involves frequent bending. Petar has not undergone physical therapy for this issue but has been doing cardio exercises at [facility]. She consulted with Dr. Ramos, who recommended a series of three injections, but she expresses reluctance to proceed with this treatment. She also had x-rays taken at [facility], which reportedly showed a slight pinched nerve. Additionally, she mentions a previous finger injury sustained while protecting her dog from a neighbor's pit bulls. The injury required a cast for three months, and she still experiences some difficulty bending the finger. ASSESSMENT: S46.812A Trapezius strain, left, initial encounter (primary encounter diagnosis) M25.512, G89.29 Chronic left shoulder pain M62.830 Muscle spasm of back 1. Trapezius strain, left, initial encounter (S46.812A) Chronic left shoulder pain (M25.512) Muscle spasm of back (M62.830) Chronic left shoulder pain localized to the trapezius muscle, exacerbated by bending forward. No pain with shoulder movement or when lying down. Symptoms have been present since May. Previous X-rays from December showed no abnormalities. Pain management consultation with Dr. Ramos recommended trigger point injections, but patient is hesitant. - Ordered physical therapy at [facility] to include ultrasound treatments and specific exercises for the shoulder blade. - Advised use of anti-inflammatory medications. - If no improvement after therapy, will refer to Dr. Giron for potential trigger point injections. Will continue to monitor patient for Trapezius strain, left, initial encounter (primary encounter diagnosis) Chronic left shoulder pain Muscle spasm of back, patient to schedule visit as per follow up discussed. OBJECTIVE: Ms. Brittney Alcocer is a pleasant 49 year old in no apparent distress. Gen:LMP 08/19/2014 nl development, obese, no deformities ENT: Normocephalic, normal hearing, moist mucosa CV: Pulses:Radial= 2+ and symmetric, capillary refill < 2 secs, no peripheral edema/varicosities Skin: no rash, bruising or lesions. Good turgor. Psych: cooperative and appropriate, alert and oriented x 3, good mood and affect. Musculoskeletal: - Musculoskeletal: - Left Shoulder: No pain with movement or shrugging. Imaging: Labs: Tests: Imaging: - X-ray: Slight pinched nerve in the back area (per patient report) - (December) Left Shoulder X-ray: Normal findings IMPRESSION: No acute bony abnormality. Low-lying acromion and mild acromioclavicular arthrosis. Car Rental Manager: YARELI Transcribe Date/Time: Feb 18 2024 11:16A Dictated by : Viri PECK MD This examination was interpreted and the report reviewed and electronically signed by: Viri PECK MD on Feb 18 2024 11:20AM EST Results-Findings * * *Final Report* * * DATE [...] acromioclavicular arthrosis. The acromiohumeral interval is normal. Supporting Subjective Information Below: Past Medical History: PAST MEDICAL HISTORY Diagnosis Date Adjustment disorder [...] smoker helps with migraines Migraine with aura, with (more content not included)... [facility] 07-23-2024 Note HNO ID: [id number] Author: CEASAR DUNCAN MA Service: ? Author Type: Pipelines Laborer Type: Progress Notes Filed: 07/23/2024 07:29 Note Text: Please help schedule a ER follow up for patient. Thank you. Ceasar Duncan MA [facility] 07-22-2024 Note HNO ID: [id number] Author: CRISTOBAL OTOOLE APRN.POLISHER HAND Service: ? Author Type: Nurse Practitioner Type: Progress Notes Filed: 07/22/2024 22:30 Note Text: Needs office visit for stronger pain medication. Cristobal Otoole APRN.ERENDIRA [facility] 07-22-2024 Note HNO ID: [id number] Author: CAREY MORRISON LPN Service: ? Author Type: LICENSED NURSE Type: Progress Notes Filed: 07/22/2024 15:57 Note Text: ED Follow-Up Note Provider Action / FYI: Pt states that she is having a lot of pain in her mouth. Per pt she has a dime size hole on the roof of her mouth. Pt states that it is throbbing and she feels tired. Pt is at that pharmacy now picking up her medications. Pt would like to know if there is anything she can take for pain as tylenol is not helping. Pt states that she can not take Ibuprofen. Pt is planning on sending in a picture of the hole in her mouth. Call completed by: NILAY Patient seen in ED: Out of Network ED Contact made with Patient: Yes The patient was identified by Name and Date of . Discussed Care with: patient Patient was seen in the Emergency Department (ED) Location: [place] Date: 07/21/2024 Reason for ED Visit: Dental abscess/dental pain ED Intervention: exam New Medications: Clindamycin 300 mg tid Magic mouth wash 4 times daily Medication Changes: None Does patient understand medication changes: N/A Can patient afford medication changes: N/A Patient educated on worsening symptoms and when and where to seek additional care: No Patient Education Provided including treatment plan and new orders. Patient provided with appropriate counseling: Yes [facility] 07-22-2024 Note HNO ID: [id number] Author: CAREY MORRISON LPN Service: ? Author Type: LICENSED NURSE Type: Progress Notes Filed: 07/22/2024 15:35 Note Text: ED Follow-Up Note Provider Action / FYI: Call completed by: NILAY Patient seen in ED: Out of Network ED Contact made with Patient: No, left message. Carey Morrison LPN July 22, 2024 3:35 PM [facility] 07-22-2024 Note Patient Outreach (AG FAMPLE) -- BRITTNEY ALCOCER ([id number]) 1975 F NFR Date Time Provider Department 07/22/24 CRISTOBAL OTOOLE During your visit today, we recorded the following information about you: Carey Morrison LPN 07/22/2024 3:35 PM Signed ED Follow-Up Note Provider Action / FYI: Call completed by: NILAY Patient seen in ED: Out of Network ED Contact made with Patient: No, left message. Carey Morrison LPN July 22, 2024 3:35 PM Carey Morrison LPN 07/22/2024 3:57 PM Signed ED Follow-Up Note Provider Action / FYI: Pt states that she is having a lot of pain in her mouth. Per pt she has a dime size hole on the roof of her mouth. Pt states that it is throbbing and she feels tired. Pt is at that pharmacy now picking up her medications. Pt would like to know if there is anything she can take for pain as tylenol is not helping. Pt states that she can not take Ibuprofen. Pt is planning on sending in a picture of the hole in her mouth. Call completed by: NILAY Patient seen in ED: Out of Network ED Contact made with Patient: Yes The patient was identified by Name and Date of . Discussed Care with: patient Patient was seen in the Emergency Department (ED) Location: [place] Date: 07/21/2024 Reason for ED Visit: Dental abscess/dental pain ED Intervention: exam New Medications: Clindamycin 300 mg tid Magic mouth wash 4 times daily Medication Changes: None Does patient understand medication changes: N/A Can patient afford medication changes: N/A Patient educated on worsening symptoms and when and where to seek additional care: No Patient Education Provided including treatment plan and new orders. Patient provided with appropriate counseling: Yes Carey Morrison LPN 07/22/2024 3:57 PM Signed Addended by: CAREY MORRISON on: 07/22/2024 03:57 PM Modules accepted: Orders Cristobal Otoole APRN.CNP 07/22/2024 10:30 PM Signed Needs office visit for stronger pain medication. CAT Wylie Mary, MA 07/23/2024 7:29 AM Signed Please help schedule a ER follow up for patient. Thank you. Ceasar Duncan MA Allergies As of Date: 07/22/2024 Noted Allergy Reaction CITALOPRAM HYDROBROMIDE 10/27/2004 10 [...] MA - Fully Assessed Reason for Visit: ED Follow-up [821] Cmt: [place] ED 07/21/2024 Prescriptions as of 07/23/2024 - clindamycin (CLEOCIN) 300 mg capsule Take 300 mg by mouth four times daily. - magic mouthwash ([facility] MOUTHWASH) oral liquid Take 5 mL by mouth four times daily. - ofloxacin (OCUFLOX) 0.3 % ophthalmic solution Use 1 drop in the right eye four times daily for 7 days. - mirabegron (MYRBETRIQ) 50 [...] Marijuana for migraines Facility-Administered Medications as of 07/23/2024 - onabotulinum toxin type A 200 Units injection (BOTOX) Problem List As Of Date 07/22/2024 Noted Resolved Supervision of other normal [Z34.80] 01/26/2005 01/06/2016 CELLULITIS FINGER,PARONYCHIA/ONYCHIA [L03.019] 12/12/2005 01/06/2016 Viral warts, unspecified [B07.9] 12/12/2005 01/06/2016 VISUAL LOSS, ONE EYE NOS [H54.60] 09/17/2006 Pain in ed (more content not included)... [facility] 07-10-2024 Discharge summary Note Date/Time July 10, 2024 7:00p m [facility] [address] [place] [address] / REHABILITATION SERVICES DISCHARGE SUMMARY MR#: [id number] Acct: [id number] Name: BRITTNEY ALCOCER Rep #: [id number] : 1975 49 From: Tena Russell OTR/L, CHT Referring DrSandra: OUT OF TOWN DOCTOR [...] 0/100 left RF DIP ROM 0/45 left maintenance foreman strength 50# left lateral pinch 10# pt demo increase ROM and strength. pt has met OT goals and is d/c at this time. Goals Patient Goals: Regain Mobility, Decrease Pain, Improve Fine Motor Skills, Use Hand/Wrist/Arm Normally Again and Be More Independent in ADLS Goal:ROM equal to unaffected hand: Yes Goal Progress: Goal Met Goal:All Source Intelligence/Pinch strength at least 75% of unaffected hand: [...] please fell free to call me at [phone]. Thank you for the referral of this patient. Sincerely, DAVID Garg/Omar, CHT <Electronically signed by Tena HERNANDEZ/Omar, KATET> 07/10/24 0749 CC: GILA Otoole; FRANCINE MEDEIROS ~ MK Signed [facility] Work Phone: [phone] 536-471306-05-2025 Discharge summary [facility] [place] [address] [facility] [place] [address] / REHABILITATION SERVICES DISCHARGE SUMMARY MR#: [id number] Acct: [id number] Name: BRITTNEY ALCOCER Rep #: [id number] [...] 0/100 left RF DIP ROM 0/45 left maintenance foreman strength 50# left lateral pinch 10# pt demo increase ROM and strength. pt has met OT goals and is d/c at this time. Goals Patient Goals: Regain Mobility, Decrease Pain, Improve Fine Motor Skills, Use Hand/Wrist/Arm Normally Again and Be More Independent in ADLS Goal:ROM equal to unaffected hand: Yes Goal Progress: Goal Met Goal:All Source Intelligence/Pinch strength at least 75% of unaffected hand: [...] please fell free to call me at [phone]. Thank you for the referral of this patient. Sincerely, Tena Russell, JANIER/Omar, T 07/10/24 0749 CC: GILA Otoole; FRANCINE MEDEIROS ~ MK Signed [facility]06-04-2025 NoteHNO ID: [id number] Author: ARJUN DANIELS APRN.POLISHER HAND Service: ? 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, coma x3 [...] and Venlafaxine MEDICATIONS mirabegron (MYRBETRIQ) 50 mg [id number] 1 tablet by mouth every other day.Disp: [...] (AJOVY)Inject 1.5 mL subcuta (more content not included)...[facility]05-10-2025 Note SARS-COV-2 (AGENT OF COVID-19) RNA: Not detected INFLUENZA A RNA: Not detected INFLUENZA B RNA: Not detected RESPIRATORY SYNCYTIAL VIRUS (RSV) RNA: Not detectedPromedica Memorial HospitalComment on above:Performed By: #### [id number] ####[facility] LABCLIA [id number] [address] [place] [id number] NoteHNO ID: [id number] Author: BANG MANDUJANO MD Service: ? Author Type: Physician Type: Progress Notes Filed: 06/14/2024 14:47 Note Text: [facility] Jossie Alcocer is a 49 year old female. [...] the following reason(s): Typical symptoms and exposure ProceduresPromedica Memorial Hospital05-07-2025 NoteHNO ID: [id number] Author: MARISOL JIMENEZ APRN.ERENDIRA Service: ? Author Type: Nurse Practitioner [...] with a history of chronic migraine, stroke, MD,chronic pain syndrome, TMJD, concussion, peptic ulcer, hypothyroid, [...] for migraine Informed Consent Consent Obtained: Written [place] Protocol A moment to CARE was completed [...] collected. Written Consent Obtained: Written LOT #: [id number] Expiration Date: Month: 4 Year: 2026 Injection Sites Left (Units) Left (Sites) Right (Units) Right (Si (more content not included)...[facility]05-07-2025 NoteHNO ID: [id number] Author: LEYLA LYON RN Service: ? Author Type: Registered Nurse Type: Progress Notes Filed: 06/11/2024 10:39 Note Text: 1011: PRN zofran given for moderate nausea. 1030: Pts infusions complete. Pt tolerated infusion well. Pt rated headache 3/10. Pt stated mild nausea and mild dizziness. Pt discharged from treatment room.[facility]05-07-2025 NoteHNO ID: [id number] Author: YENNY SOLORIO RN Service: ? Author Type: Registered Nurse Type: Progress Notes Filed: 06/11/2024 10:39 Note Text: Star arrived to the infusion suite rating her headache pain 5/10 with mild nausea and mild dizziness. Sugar Mill Worker confirmed. Patient requested prn zofran for nausea and prn benadryl for sedation.[facility]05-06-2025 NoteHNO ID: [id number] Author: LEYLA LYON RN Service: ? Author Type: Registered Nurse Type: Progress Notes Filed: 06/10/2024 09:47 Note Text: 0723: Patient in for second day of IV infusions. Patient rated headache 6/10. Patient stated mild nausea and denied dizziness. Patient educated on medications to be administered. Patient verbalized understanding and agreed to proceed with infusions. Pt does have a wrecker driver (sister). She would like PRN benadryl for sedation and PRN Zofran given for nausea. 0940: Pts infusions complete. Pt tolerated infusion well. Pt rated headache 3/10. Pt stated moderate nausea and denied dizziness. Additional dose of PRN zofran given. Pt discharged from treatment room via wheelchair and taken downstairs to her ride in the front roundabout.[facility] 06-09-2024 NoteHNO ID: [id number] Author: SANDEEP REYES APRN.POLISHER HAND Service: ? Author Type: Nurse Practitioner Type: [...] 1 EachRfl: 11 mirabegron (MYRBETRIQ) 50 mg Ag63Lztd 1 tablet by mouth once daily.Disp: 30 [...] and clear, coherent, and relevant. Short and half-way memory, cognition and general fund of knowledge are good. Attention span and concentration are excellent. Cranial Nerves: VII-face is symmetric without evidence of weakness. VIII-hearing intact. Assessment: (G43.901) Status migrainosus (primary encounter diagnosis) Plan: Brittney Alcocer is a 49 year old year old female, with a history of chronic migraine, stroke, MD,chronic pain syndrome, TMJD, concussion, peptic ulcer, hypothyroid, [...] which included preparing to see the patient, escc-nz-nhdw patient care, completing clinical documentation, and obtaining and/or reviewing separately obtained history. Sandeep Reyes APRN.ERENDIRA Headache Section [facility] June 09[facility]05-05[facility]2025 NoteHNO ID: [id number] Author: YENNY SOLORIO RN Service: ? Author Type: Registered Nurse Type: Progress Notes Filed: 06/09/2024 10:12 Note Text: Petar arrived to the infusion suite rating headache pain 8/10 with mild nausea and no dizziness. Star verbalized that she recently took Zofran at home (5am this morning). LIP notified and ok with one prn IV Zofran administration during infusion. She was educated on medications to be administered per therapy plan and verbally agreed to proceed with infusions. PRN zofran given or nausea. PRN benadryl given for sleep. Sugar Mill Worker confirmed. She rated her pain 6/10 with moderate nausea and no dizziness at the end of the infusion. Discharged to wrecker driver.[facility]05-02-2025 NoteHNO ID: [id number] Author: QUEENIE SPARKS APRN.ERENDIRA Service: ? Author Type: Nurse Practitioner Type: Progress Notes Filed: 06/06/2024 09:26 Note Text: [facility] - Virtual Visit Last Visit: 03/05/2024, Queenie Sparks APRN.POLISHER HAND Accompanied by: Self This visit was conducted as a virtual visit, with patient's permission, via zoom. It required patient-provider interaction for the medical decision making as documented below. Patient stated name and Patient location: [place] I have communicated my name and active licensure. The patient's identity and physical location were verified at the time of this visit. Either the patient or their legal personnel representative has been informed of the risks and benefits of -- and alternatives to -- treatment through a remote evaluation and consents to proceed with the evaluation remotely. Recording using Sellywhere software for draft documentation of the visit was discussed with the patient/authorized personnel representative; all questions welcomed and answered. Patient/authorized personnel representative agreed to proceed Primary Problem List: ACTIVE PROBLEM LIST Unqualified Visual Loss, One Eye Carpal Tunnel Syndrome, Left Right Knee Pain Diverticulosis of Intestine Without Bleeding Amenorrhea, Unspecified Leiomyoma of Uterus, Unspecified Major Depressive Disorder, Single Episode, Unspecified Pain in Right Shoulder Unspecified Asthma, Uncomplicated (Hcc) Gastro-Esophageal Reflux Disease Without Esophagitis Anxiety Left Ovarian Cyst History of Drug Abuse (Hcc) History of Migraine Ankylosis of Sacroiliac Joint [...] with a history of chronic migraine, stroke, MD,chronic pain syndrome, TMJD, concussion, peptic ulcer, hypothyroid, [...] with migraines returning in (more content not included)...[facility]04-29-2025 NotePatient Outreach (AGSAUMYAMPHEIDY) BRITTNEY ALCOCER ([id number]) 1975 F NFR Date Time Provider Department [...] for screening mammogram for breast cancer [Z12.31] Order(s):[facility] SCREENING W ELINA [[id number]] Order #: [id number] FUTURE Prescriptions as of 07/04/2024 - mirabegron [...] 12/19/2017 Auditory hallucination [R44. (more content not included)...[facility]04-17-2025 History of Present illness Narrative* Linda Randle, PT - 05/22/2024 12:18 PM EDT Images from the original note were not included. [facility] [address] [address] Discharge Notification Patient Name: Petar [...] clarification. Linda Randle PT documented in this [facility]04-03-2025 History of Present illness Narrative* Francine Medeiros [...] MD Orthopedic Hand and Upper Extremity Surgery [facility] Department of Orthopaedics documented in this [facility]03-13-2025 Evaluation note* Diagnosis Onset Date Resolution Status Admit Date Cervical radiculopathy acute [facility] 2024 8:43am [facility] Work Phone: [phone]) 771-919903-07-2025 History of Present illness Narrative* Francine Medeiros PA-C - 04/11/2024 2:45 PM EST Images from the original note were not included. [facility] [place] [address] [place] [address] [address] [facility] [address] Dept: [phone] Dept 04/11/24 Chief Complaint Patient presents with [...] MD Orthopedic Hand and Upper Extremity Surgery [facility] Department of Orthopaedics documented in this [facility]03-06-2025 Instructions* Patient Instructions* Francine Medeiros PA-C - [...] concerns Sunday through Sunday 8am to 4:30pm [phone] After hours please call or go the ER documented in this [facility]02-28-2025 NoteHNO ID: [id number] Author: CEASAR DUNCAN MA Service: ? Author Type: Pipelines Laborer Type: Progress Notes Filed: 04/04/2024 13:05 Note Text: ED Follow Up: Patient discharged from [facility] ED on 04/03/2024. 1. How are [...] you able to contact the office or buttonhole facer provider prior to your ED visit? Not applicable 5. Is there anything else I can do for you today? No Patient declined apt. She states she has a follow up with her surgeon april 10. Ceasar Duncan, [facility]02-28-2025 History of Present illness Narrative* Trent Alas MD - 04/04/2024 10:30 AM EST Images from the original note were not included. [facility] - [address] [place] [address] Dept: [phone] Dept 04/04/2024 Chief Complaint Patient presents with [...] left index finger despite taking Tylenol and Gladstone for pain. Cannot take NSAIDs. No other [...] fracture alignment ASSESSMENT 1. Postoperative pain HYDROcodone-acetaminophen (Gladstone) 5-325 MG tablet 2. Closed displaced fracture of distal phalanx of left ring finger with routine healing, subsequentencounter HYDROcodone-acetaminophen (Gladstone) 5-325 MG tablet PLAN Brittney status post left ring finger closed reduction and percutaneous pin fixation 04/01/2024. Patient having difficulties with pain control postoperatively. X-rays and clinical exam reassuring. Did recommend patient be placed back into a splint today. Recommended aggressive elevation of left upper extremity. Recommended continue pain control with Tylenol and patient was given a new prescription for Gladstone as well, to use for severe breakthrough [...] MD Orthopedic Hand and Upper Extremity Surgery [facility] Department of Orthopaedics 04/04/2024 at 10:27 AM (Please note that portions of this note may have been completed with a voice recognition program. Efforts were made to edit the dictations but occasionally words are mis-transcribed.) documented in this [facility]02-28-2025 Hospital Discharge instructions* Discharge Instructions* Renea Swetz, MD - 04/04/2024 12:45 AM EST Images [...] advice on pain management documented in this encounterSLakeHealth TriPoint Medical CenterPyluqv06-36-8940 Emergency department Note* Maria Mai RN - 04/04/2024 12:43 AM EST Ortho at bedside [facility] HospitalWampur46-28-8179 Emergency department Note* Maria Mai RN - 04/04/2024 12:43 AM EST Ortho at bedside * Renea Mendoza RN - 04/03/2024 9:18 PM EST Report called to Myrtle Villegas RN at this time. * Jose Angel Casas MD - 04/03/2024 7:07 PM EST EMERGENCY DEPARTMENT ENCOUNTER Pt Name: Petar ESCOBARN: [id number] Birthdate 1975 Date of evaluation: 04/03/2024 ED [...] None Outside historians: Past medical review in [facility] to obtain collateral history REVIEW OF SYSTEMS Review of Systems Pertinent positives and negatives as per [facility] PAST MEDICAL HISTORY Past Medical History: [...] for migraines PHYSICAL EXAM ED Triage Vitals [04/03/241917] Temp Heart Rate Resp BP 37.1 C [...] and will need to be transferred to [facility] for in person evaluation byhand surgery given [...] is low. Patient will be transferred to [facility] to be evaluated by orthopedic/hand surgery given recent postoperative status. Accepting service will be orthopedic surgery, accepting ED attending will be Dr. Jailene Tabor. Patient informed of results of workup and plan to transfer to [facility] and indicate understanding and agreement. Disposition: Interfacility transfer to [facility] ED for evaluation by orthopedic/hand surgery CRITICAL [...] 04/03/2024 7:07 PM EST Emergency Department Encounter [facility] EMERGENCY DEPT Patient: Brittney Alcocer : 1975 [...] his/her documentation. MD Binta Multani MD 04/04/24218 documented in this [facility]02-28-2025 NotePatient Outreach (AGFAMPLE) MARIYABRITTNEY Mukherjee ([id number]) 1975 F NFR Date Time Provider Department 04/04/24 CEASAR DUNCAN During your visit today, we recorded the following information about you: Ceasar Duncan MA 04/04/2024 1:05 PM Signed ED Follow Up: Patient discharged from [facility] ED on 04/03/2024. 1. How are [...] you able to contact the office or buttonhole facer provider prior to your ED visit? Not [...] back pain [M54.6, * (more content not included)...[facility]02-27-2025 Emergency department Note* Renea Mendoza RN - 04/03/2024 9:18 PM EST Report called to Myrtle Villegas RN at this time. [facility] HospitalGlhddu09-69-7322 Physician Emergency department Note* Jose Angel Casas [...] None Outside historians: Past medical review in [facility] to obtain collateral history REVIEW OF SYSTEMS Review of Systems Pertinent positives and negatives as per [facility] PAST MEDICAL HISTORY Past Medical History: [...] and will need to be transferred to [facility] for in person evaluation byhand surgery given [...] is low. Patient will be transferred to [facility] to be evaluated by orthopedic/hand surgery given recent postoperative status. Accepting service will be orthopedic surgery, accepting ED attending will be Dr. Jailene Tabor. Patient informed of results of workup and plan to transfer to [facility] and indicate understanding and agreement. Disposition: Interfacility transfer to [facility] ED for evaluation by orthopedic/hand surgery CRITICAL [...] Medicine Provider Jose Angel Casas MD 04/03/242115 [facility] HospitalDlwyiz92-40-1785 Physician Emergency department Note* Binta Vidal MD - 04/03/2024 7:07 PM EST Emergency Department Encounter [facility] EMERGENCY DEPT Patient: Brittney Alcocer : 1975 [...] documentation. MD Binta Multani MD 04/04/24 0219 [facility] HospitalPoqcyg84-44-0809 Telephone encounter Note* Telephone Encounter - Rico [...] from there and she again verbalized understanding. [facility] HospitalJfpkvg41-80-2981 Miscellaneous Notes* Telephone Encounter - Rico Oviedo [...] Feeling of pins and needles. Stated taking Gladstone and Tylenol is not helping. Currently pain is moderate. Brittney is taking Gladstone for pain relief. acetaminophen every 6 hours Brittney admits to new numbness and tingling. Pin and needles feeling Incision is covered , Brittney denies drainage from her incision. Capillary refill: 3 seconds Erythema: No Swelling: No Effusion: No Recommendation: Telephone encounter sent to clinical staff provider to advise documented in this [facility]02-27-2025 Telephone encounter Note* Telephone Encounter - Lindsey [...] Feeling of pins and needles. Stated taking Gladstone and Tylenol is not helping. Currently pain is moderate. Brittney is taking Gladstone for pain relief. acetaminophen every 6 hours Brittney admits to new numbness and tingling. Pin and needles feeling Incision is covered , Brittney denies drainage from her incision. Capillary refill: 3 seconds Erythema: No Swelling: No Effusion: No Recommendation: Telephone encounter sent to clinical staff provider to advise [facility] HospitalTkvuea31-57-4335 Nurse Note* Perioperative Nursing Note - Farzana Bennett RN - 04/01/2024 12:01 PM EST Pt and family verbalized understanding of recovery instructions, pt verbalized a readiness to be discharged home. Pt discharged home via wheelchair accompanied by RN/volunteer. Pt has had all their belongings returned to them at discharge [facility] HospitalRlsimc04-40-2375 Miscellaneous Notes* Perioperative Nursing Note - Farzana [...] from OR via cart, spont. Resp. With COLLEGE INTERN in attendance. Placed on monitor. Monitor alarms [...] Alas MD Assistants: Francine Medeiros PA-C The first-pharmaceutical assistant was critical to all steps of [...] patient's ASA was verified by the nurse build technician and the anesthesia staff. Fire risk was [...] MD Orthopedic Hand and Upper Extremity Surgery [facility] Department of Orthopaedics documented in this encounterSLakeHealth TriPoint Medical CenterUwpgav61-74-7205 Nurse Note* Perioperative Nursing Note - Farzana Bennett RN - 04/01/2024 11:50 AM EST Reviewed discharge instructions with patient and friend Yvette. Understanding verbalized. [facility] HospitalStzfhg21-36-5958 Nurse Note* Perioperative Nursing Note - Farzana Bennett RN - 04/01/2024 10:57 AM EST Patient transitioned to Phase 2. Tolerating liquids. Family at bedside. [facility] HospitalNcldpk98-04-2346 Hospital Discharge instructions* Discharge Instructions* Francine Medeiros PA-C - 04/01/2024 10:18 AM EST Bandage: Keep operative splint/dressing on, clean, and dry until follow up appointment in 1-2 weeks. Swelling control: Elevate and Ice for pain control. You may take the prescribed Gladstone for breakthrough pain relief asneeded. You may prioritize Ibuprofen 600 mg every 6 hours with food as needed for relief of pain and swelling if your other physicians allow you to take this. You can also take Tylenol extra mg every 6 hours as needed to [...] * Moderate Sedation in Adults Discharge Instructions (Italian) documented in this [facility]02-25-2025 NotePatient: Petar Alcocer Procedure Summary Date: 04/01/24 Room / Location: [address] Operating Room Anesthesia Start: 933 Anesthesia [...] Allowed opportunity for questions and acknowledgement of understanding.[facility]02-25-2025 NotePatient: Petar Alcocer Procedure Summary Date: 04/01/24 Room / Location: [address] Operating Room Anesthesia Start: 933 Anesthesia Stop: 1013 Procedure: CLOSED REDUCTION PERCUTANEOUS PINNING LEFT RING FINGER DISTAL PHALANX FRACTURE (Left: Hand) Diagnosis: Displaced fracture of distal phalanx of left ring finger, subsequent encounter for fracture with routine healing Surgeons: Trent Alas MD Responsible Provider: No Anesthesiologist - Sberika/MD Aure Anesthesia Type: TIVA ASA Status: 3 [...] discharged once all PACU criteria has been met.[facility]02-25-2025 Nurse Note* Perioperative Nursing Note - Farzana Bennett RN - 04/01/2024 10:12 AM EST Pt received from OR via cart, spont. Resp. With COLLEGE INTERN in attendance. Placed on monitor. Monitor alarms on in PACU [facility] HospitalYyfcqu98-98-6306 NoteAirway Date/Time: 04/01/2024 9:46 AM Urgency: scheduled Airway not difficult General Information and Staff Patient location during procedure: Procedural Resident/COLLEGE INTERN: Farrukh Gandhi APRN - COLLEGE INTERN Performed: COLLEGE INTERN Indications and Patient Condition Indications for airway management: anesthesia Sedation level: Asleep Preoxygenated: yes Patient position: sniffing MILS maintained throughout Mask difficulty assessment: 0 - not attempted Final Airway Details Final airway type: supraglottic airway Successful airway: Igel Size 4 Number of attempts at approach: [address] [place], [place] [address]206002-25-2025 Procedure note* Op Note - Trent Alas MD - 04/01/2024 9:34 AM EST Operative Report Patient Name: Brittney Alcocer Date of : 1975 Date of Surgery: 04/01/24 Preoperative Diagnosis: left ring finger displaced distal phalanx fracture Postoperative Diagnosis: Same Procedure: Closed reduction and percutaneous pin fixation of left ring finger displaced distal phalanx fracture Surgeon: Trent Alas MD Assistants: Francine Medeiros PA-C The first-pharmaceutical assistant was critical to all steps of [...] patient's ASA was verified by the nurse build technician and the anesthesia staff. Fire risk was [...] MD Orthopedic Hand and Upper Extremity Surgery [facility] Department of Orthopaedics [employer] Phone: [phone] 395-248802-25-2025 NotePatient: Petar Alcocer Procedure Information Date/Time: 04/01/24929 Procedure: CLOSED REDUCTION PERCUTANEOUS PINNING LEFT RING FINGER DISTAL PHALANX FRACTURE (Left: Hand) - 45 minutes Location: [address] Operating Room Surgeons: Trent Alas MD [...] 05/21/2022 6:35 PM Equipment Requests: Additional Equipment RequestsAspirus [facility]ton[facility] Hospital02-25-2025 History and physical note* Francine Medeiros PA-C - 04/01/2024 8:21 AM EST [facility] Pre-Surgical History and Physical Name: Brittney Alcocer : 1975 (Age-49 y.o.) Date of Service: Pt seen/examined on 04/01/2024 Chief Complaint: 49 y.o. female who we are asked to see/evaluate Brittney Alcocer for pre- procedure evaluation prior to Procedure Information Date/Time: 04/01/24929 Procedure: CLOSED REDUCTION PERCUTANEOUS PINNING LEFT RING FINGER DISTAL PHALANX FRACTURE (Left: Hand) - 45 minutes Location: [address] Operating Room Surgeons: Trent Alas MD [...] MD Orthopedic Hand and Upper Extremity Surgery [facility] Department of Orthopaedics [facility] HospitalZhtdnm47-18-1445 Note Attestation signed by Trent Alas MD [...] MD Orthopedic Hand and Upper Extremity Surgery [facility] Department of Orthopaedics [facility] Pre-Surgical History and Physical Name: Brittney Alcocer : 1975 (Age-49 y.o.) Date of Service: Pt seen/examined on 04/01/2024 Chief Complaint: 49 y.o. female who we are asked to see/evaluate Brittney Alcocer for pre-procedure evaluation prior to Procedure Information Date/Time: 04/01/24929 Procedure: CLOSED REDUCTION PERCUTANEOUS PINNING LEFT RING FINGER DISTAL PHALANX FRACTURE (Left: Hand) - 45 minutes Location: [address] Operating Room Surgeons: Trent Alas MD [...] and Sexual Activity Alc (more content not included)...[facility] [id number] History and physical note* Francine Medeiros PA-C - 04/01/2024 8:21 AM EST [facility] Pre-Surgical History and Physical Name: Brittney Alcocer : 1975 (Age-49 y.o.) Date of Service: Pt seen/examined on 04/01/2024 Chief Complaint: 49 y.o. female who we are asked to see/evaluate Brittney Alcocer for pre- procedure evaluation prior to Procedure Information Date/Time: 04/01/24929 Procedure: CLOSED REDUCTION PERCUTANEOUS PINNING LEFT RING FINGER DISTAL PHALANX FRACTURE (Left: Hand) - 45 minutes Location: [address] Operating Room Surgeons: Trent Alas MD [...] MD Orthopedic Hand and Upper Extremity Surgery [facility] Department of Orthopaedics documented in this [facility]02-24-2025 Telephone encounter Note* Telephone Encounter - Francine Medeiros PA-C - 03/31/2024 4:42 PM EST PAT orders signed, thanks! [facility] [employer] Work Phone: [phone] Miscellaneous Notes* Telephone Encounter - Francine Medeiros [...] the original note were not included. Checked [facility] portal- NAN * Telephone Encounter - Kathryn Alamo - 03/27/2024 9:05 AM EST ----- Message from Francine Medeiros PA-C sent at 03/27/2024 8:24 AM EST ----- ALAS SURGERY SCHEDULING SLIP Patient: Brittney Alcocer Date of : 1975 Date of Surgery: 04/01/2024 9:30am arrive @ 7:30am Day of Surgery: Sunday [facility]: [place] Duration: 45min Type: Outpatient PAT: Yes, virtual 03/31/24 @ 9:30am call Med Clearance: No Anesthesia: MAC/local Block: None Position: Supine Table: Stretcher Arm Board: Roll-up arm table Radiology: Small C-Arm CPT Code: 81490 Dx code: S62.635D Case #: [id number] Consent: Closed reduction percutaneous pinning left ring finger distal phalanx fracture FollowUp: Waldemar in 10-14 days 04/10/24 @ 9am @ wads with kt ( ok 9 days per alas) XRays: Yes, 2V left ring finger OT Splint needed at first PO appointment: no Special Requests Hand tray K wires, 3.5 and 4.5 available but not open Power Sterile coban 2 inch Yellow pin covers Small Adaptic documented in this encounterSLakeHealth TriPoint Medical CenterLgmrlt53-34-3084 Telephone encounter Note* Telephone Encounter - Kathryn Jasmeet - 03/27/2024 2:00 PM EST Called patient to give PAT day of Sunday03/31/24 @ 9:30am phone call. Gave tentative arrival time of 7:30am and sx to start @ 9:30am. Let her know surgery times are subject to change and she will be made aware if so. Patient confirmed and had no further questions. [facility] HospitalWjmmsz80-54-9717 Telephone encounter Note* Telephone Encounter - Kathryn Alamo - 03/27/2024 11:04 AM EST Sent to sx scheduling [facility] Srtiuu83-19-0620 Telephone encounter Note* Telephone Encounter - Kathryn Alamo - 03/27/2024 9:26 AM EST Images from the original note were not included. Checked [facility] portal- NAN [employer]Khmgzz01-79-3180 Telephone encounter Note* Telephone Encounter - Kathryn Alamo - 03/27/2024 9:05 AM EST ----- Message from Francine Medeiros PA-C sent at 03/27/2024 8:24 AM EST ----- MADDI SURGERY SCHEDULING SLIP Patient: Brittney Alcocer Date of : 1975 Date of Surgery: 04/01/2024 9:30am arrive @ 7:30am Day of Surgery: [facility]: [place] Duration: 45min Type: Outpatient PAT: Yes, virtual 03/31/24 @ 9:30am call Med Clearance: No Anesthesia: MAC/local Block: None Position: Supine Table: Stretcher Arm Board: Roll-up arm table Radiology: Small C-Arm CPT Code: 96270 Dx code: S62.635D Case #: [id number] Consent: Closed reduction percutaneous pinning left ring finger distal phalanx fracture FollowUp: Waldemar in 10-14 days 04/10/24 @ 9am @ hortensia with kt ( ok 9 days per maddi) XRays: Yes, 2V left ring finger OT Splint needed at first PO appointment: no Special Requests Hand tray K wires, 3.5 and 4.5 available but not open Power Sterile coban 2 inch Yellow pin covers Small Adaptic [employer] [id number] History of Present illness Narrative* Trent Alas MD - 03/27/2024 8:00 AM EST Images from the original note were not included. [facility] [address] [place] [address] Dept: [phone] Dept 03/27/2024 Chief Complaint Patient presents with [...] healing, subsequentencounter XR fingers 2+ views left PLAN Brittney has been undergoing closed treatment of left [...] Follow-up: Brittney will followup with my physician pharmaceutical assistant, Francine Medeiros PA-C 10 to 14 days post operatively. She knows to call the office with any questions or concerns in the interim. Future Imaging: LEFT Ring Finger 2V out of splint Trent Alas MD Orthopedic Hand and Upper Extremity Surgery [facility] Department of Orthopaedics 03/27/2024 at 8:01 AM (Please note that portions of this note may have been completed with a voice recognition program. Efforts were made to edit the dictations but occasionally words are mis-transcribed.) documented in this [facility]02-06-2025 NoteHNO ID: [id number] Author: WM BARR, USHA Service: ? Author Type: Registered Nurse Type: Progress Notes Filed: 03/13/2024 14:19 Note Text: Pt in for 3rd day of infusion. Pt rated headache 4/10. Pt has mild nausea and no dizziness. Educated pt on medications to be administered. Pt agreed to proceed as ordered. 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 Zofran given for mild nausea. Pts infusion complete, tolerated infusion. Headache 2/10. Pt stated mild nausea and no dizziness. 2nd dose of prn Zofran given prior to d/c. Pt discharged from txt room at 1409.[facility]02-06-2025 NoteHNO ID: [id number] Author: DEBBIE ARMAS APRN.ERENDIRA Service: ? Author Type: Nurse Practitioner [...] 1 EachRfl: 11 mirabegron (MYRBETRIQ) 50 mg [id number] 1 tablet by mouth once daily.Disp: 30 [...] and clear, coherent, and relevant. Short and continuous churn buttermaker memory, cognition and general fund of knowledge are good. Attention span and concentration are good. Cranial Nerves: VII-face is symmetric without evidence of weakness. VIII-hearing intact. Assessment: No diagnosis found. Plan: Brittney Alcocer is a 49 year old year old female, with a history of chronic migraine, stroke, MD,chronic pain syndrome, TMJD, concussion, peptic ulcer, hypothyroid, [...] (Fremanezumab). The patient briceno (more content not included)...[facility]02-05-2025 NoteHNO ID: [id number] Author: LEYLA LYON RN Service: ? Author Type: Registered Nurse Type: Progress Notes Filed: 03/12/2024 09:35 Note Text: 0723: Patient in for second day of IV infusions. Patient rated headache 6/10. Patient stated severe nausea and denied dizziness. Patient educated on medications to be administered. Patient verbalized understanding and agreed to proceed with infusions. 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 She would like PRN Benadryl for sedation. 0933: Pts infusions complete. Pt tolerated infusion well. Pt rated headache 3/10. Pt stated mild nausea and denied dizziness. PRN zofran administered. Pt discharged from treatment room via wheelchair to [facility]02-04-2025 NoteHNO ID: [id number] Author: LEYLA LYON RN Service: ? Author Type: Registered Nurse Type: Progress Notes Filed: 03/11/2024 11:30 Note Text: 1028: Pts infusions complete. Pt tolerated infusion well. Pt rated headache 6/10. Pt stated mild nausea and denied dizziness. PRN zofran administered. Pt discharged from treatment room via wheelchair to her ride in the front roundabout.[facility]02-04-2025 NoteHNO ID: [id number] Author: NEGRO MARTI APRN.ERENDIRA Service: ? Author Type: Nurse Practitioner [...] 1 EachRfl: 11 mirabegron (MYRBETRIQ) 50 mg [id number] 1 tablet by mouth once daily.Disp: 30 [...] in rate, volume and articulation. Short and continuous churn buttermaker memory, cognition and general fund of knowledge are good. Attention span and concentration are good. Cranial Nerves: VII-face is symmetric without evidence of weakness. VIII-hearing intact. Assessment: No diagnosis found. Plan: Brittney Alcocer is a 49 year old year old female, with a history of chronic migraine, stroke, MD,chronic pain syndrome, TMJD, concussion, peptic ulcer, hypothyroid, asthma, pelvic pain, renal stones and insomnia following up today for day 1 of infusions. Follow up plan: Resume previous at home medications. - Follow up with Yenny Osman APRN on 03/14/2024 Level of service: Est level 1 (0-9 min): Time spent 8 min on the day of service, which included preparing to see the patient, [id number] patient care, completing clinical documentation, obtaining and/or reviewing separately obtained history, performing a medically appropriate examination, and counseling and educating the patient/family/caregiver. Negro Marti APRN.[facility] Headache Section [facility] March 11[facility]02-04-2025 NoteHNO ID: [id number] Author: HOSSEIN GO, USHA Service: ? Author Type: Registered Nurse Type: Progress Notes Filed: 03/11/2024 11:30 Note Text: Patient in for day 1 of IV infusions. Patient rated headache 8/10. Patient stated mild nausea and no dizziness. Patient educated on medications to be administered. Patient verbalized understanding and agreed to proceed with infusions. - Pt confirms she has a wrecker driver 0802 - PRN Zofran given for nausea 0804 - PRN Benadryl given for sedation per patient request[facility]02-03-2025 History of Present illness Narrative* Lindsey Mcgregor, MEDICARE SALES EXECUTIVE - 03/10/2024 2:30 PM EST Images from the original note were not included. [facility] [address] [facility] [address] Dept: [phone] Dept PHYSICAL THERAPY TREATMENT Patient Name: Petar [...] Time Entry Total Treatment Time Start Time: 023 Stop Time: 030 Time Calculation (min): 25 min PT Therapeutic Procedures Time Entry Manual Therapy Time Entry: 25 Lindsey Mcgregor PTA Cosigned by Linda Randle PT at 03/10/2024 3:36 PM EST documented in this [facility]01-30-2025 History of Present illness Narrative* Linda Randle PT - 03/06/2024 10:30 AM EST Images from the original note were not included. [facility] THERAPY AT [address] [place] [address] Dept: [phone] Dept PHYSICAL THERAPY TREATMENT Patient Name: Petar [...] Randle PT, DPT, NCS documented in this [facility]01-29-2025 NoteHNO ID: [id number] Author: QUEENIE SPARKS APRN.POLISHER HAND Service: ? Author Type: Nurse Practitioner Type: [...] visit. Either the patient or their legal personnel representative has been informed of the risks and benefits of -- and alternatives to -- treatment through a remote evaluation and consents to proceed with the evaluation remotely. HPI: Brittney Alcocer is a 49 year old year old female, with a history of chronic migraine, stroke, MD,chronic pain syndrome, TMJD, concussion, peptic ulcer, hypothyroid, [...] the second did not work as well. Ericka was helping for a while, but now [...] little) New health events/diagnosis since last visit (MD/stroke/DM/HTN/etc): broken finger, front teeth extraction Cardiovascular risk factors: CVA, MD Past infusion intolerances: works well in conjunction [...] Analgesic Diclofenac (Voltaren, Cataflam, Cambia) Hydrocodone/Acetaminophen (Vicodin, Gladstone) Indomethacin (Indocin) Ketorolac (Toradol) Tramadol (Ultram) celebrex Anti-Anxiety Alprazolam (Xanax, Niravam) Anti-Convulsant Divalproex sodium (Depakote) Gabapentin (Neurontin) Anti-Depressant and Antipsychotic Amitriptyline (Elavil) Bupropion (Wellbutrin) Citalopram (Celexa) Fluoxetine (Prozac) Olanzapine (Zyprexa, Zydis) Quetiapine (Seroquel) Sertraline (Zoloft) Venlafaxine (Effexor) Antiemetics Ondansetron Prochlorperazine Promethazine Reglan (Metoclopramide) Anti-Migraine Naratriptan (Amerge) Rizatriptan (Maxalt) Sumatriptan (Imitrex, Sumavel) raised blood pressure cannot use triptans - H/O TIA and MD Blood Pressure NO beta blockers - asthma [...] Fibroids Gastric ulcer, uns (more content not included)...[facility] 02-28-2024 History of Present illness Narrative* Trent Alas MD - 02/28/2024 8:15 AM EST Images from the original note were not included. [facility] [address] [place] [address] [place] [address] Dept: [phone] Dept 02/28/2024 Chief Complaint Patient presents with [...] phalanx of left ring finger, initial encounter [facility] Orthopedics - [facility] PLAN I discussed with Brittney the natural [...] MD Orthopedic Hand and Upper Extremity Surgery [facility] Department of Orthopaedics 02/28/2024 at 8:12 AM (Please note that portions of this note may have been completed with a voice recognition program. Efforts were made to edit the dictations but occasionally words are mis-transcribed.) documented in this encounterSLakeHealth [facility] [id number] Emergency department Note* Tena Khan RN - 02/22/2024 5:38 PM EST Ice applied to left hand. [id number] Emergency department Note* Tena Khan RN - [...] infarction (HCC) PTSD (post-traumatic stress disorder) Stroke ([facility]) Tendonitis SURGICAL HISTORY History reviewed. No pertinent [...] External records reviewed: Diagnostics interpreted by me: mady sanchez Discussions with other clinicians: Chronic conditions impacting care: Social determinants of health affecting care: ED Medications managed: Medications - No data to display Prescription drugs considered: Stephania Palma MD am the primary class teacher of record. FINAL IMPRESSION 1. Closed nondisplaced fracture of distal phalanx of left ring finger, initial encounter DISPOSITION Discharge 02/22/2024 05:45:24 PM PATIENT REFERRED TO: [facility] Orthopedics [facility] Medicine [address] [address] DISCHARGE MEDICATIONS: New Prescriptions No [...] Emergency Medicine Provider Monique Palma MD 02/22/241754 * Tena Khan RN - 02/22/2024 5:05 PM EST Patient to room 2 with c/o left hand fourth digit pain after her dog took off while she was holdingthe lease. V/S obtained, call light within reach. documented in this [facility]01-17-2025 Emergency department Triage note* Tena Khan RN - 02/22/2024 5:05 PM EST Patient to room 2 with c/o left hand fourth digit pain after her dog took off while she was holdingthe lease. V/S obtained, call light within reach. [facility] [id number] Miscellaneous Notes* ED Procedure Note - Monique Palma MD - 02/22/2024 5:05 PM ESTAssociated Order(s): Splint Application Procedure Splint Application Performed by: Monique Palma MD Authorized by: Monique Palma MD Consent: Consent obtained: Verbal [place] protocol: Patient identity confirmed: Verbally with patient [...] Monique Palma MD 02/22/241755 documented in this [facility]01-17-2025 Note* ED Procedure Note - Monique Palma MD - 02/22/2024 5:05 PM ESTAssociated Order(s): Splint Application Procedure Splint Application Performed by: Monique Palma MD Authorized by: Monique Palma MD Consent: Consent obtained: Verbal [place] protocol: Patient identity confirmed: Verbally with patient [...] imaging: not applicable Monique Palma MD 02/22/241755 [facility] [id number] Note* ED Procedure Note - Monique Palma MD - 02/22/2024 5:05 PM ESTAssociated Order(s): Splint Application Procedure Splint Application Performed by: Monique Palma MD Authorized by: Monique Palma MD Consent: Consent obtained: Verbal [place] protocol: Patient identity confirmed: Verbally with patient Pre-procedure details: Distal neurologic exam: Normal Distal perfusion: distal pulses strong Procedure details: Location: Finger Finger location: L ring finger Strapping: no Cast type: Finger Splint type: Finger Supplies: Aluminum splint Attestation: Splint applied and adjusted personally by ut Post-procedure details: Distal neurologic exam: Normal Distal perfusion: distal pulses strong and brisk capillary refill Procedure completion: Tolerated Post-procedure imaging: not applicable Monique Palma MD 02/22/24 1756 [facility]01-17-2025 NoteProcedure Splint Application Performed by: Monique Palma MD Authorized by: Monique Palma MD Consent: Consent obtained: Verbal [place] protocol: Patient identity confirmed: Verbally with patient Pre-procedure details: Distal neurologic exam: Normal Distal perfusion: distal pulses strong Procedure details: Location: Finger Finger location: L ring finger Strapping: no Cast type: Finger Splint type: Finger Supplies: Aluminum splint Attestation: Splint applied and adjusted personally by ut Post-procedure details: Distal neurologic exam: Normal Distal perfusion: distal pulses strong and brisk capillary refill Procedure completion: Tolerated Post-procedure imaging: not applicable Monique Palma MD 02/22/24 1756[facility]01-17-2025 Physician Emergency department Note* Monique Palma MD [...] History of heart attack Migraine Myocardial infarction ([facility]) PTSD (post-traumatic stress disorder) Stroke ([facility]) Tendonitis SURGICAL HISTORY History reviewed. No pertinent [...] No data to display Prescription drugs considered: Stephania Palma MD am the primary class teacher of record. FINAL IMPRESSION 1. Closed nondisplaced fracture of distal phalanx of left ring finger, initial encounter DISPOSITION Discharge 02/22/2024 05:45:24 PM PATIENT REF[facility]ED TO: [facility] Orthopedics [facility] Medicine [address] [id number] DISCHARGE MEDICATIONS: New Prescriptions No medications on [...] Emergency Medicine Provider Monique Palma MD 02/22/241754 [facility]01-17-2025 Evaluation note* Diagnosis Onset Date Resolution Status Admit Date Cervical radiculopathy noneactive [facility] 2024 7:55am [facility] Work Phone: 1(343) 333-422701-13-2025 NoteHNO ID: [id number] Author: FRANCIE TIERNEY RT(R) Service: ? Author Type: Materials Technician Type: Progress Notes Filed: 02/18/2024 10:35 Note [...] PATIENT PRESENTS WITH AN IMPLANTABLE OR ATTACHED GOVERNMENT CONTRACTS MANAGER: No RADIOLOGY DEPARTMENT: General X-ray: Exam(s) Completed: Upper Extremity X-Ray(s): Shoulder, AP / TRUE AP / AXILLARY right PERIPHERAL IV DATA: Not applicable SIGNED BY: RT Laura(R) February 18, 2024 10:22 [facility]01-13-2025 NoteHNO ID: [id number] Author: GLO DALAL APRN.POLISHER HAND Service: ? 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, coma x3 [...] antral gastritis, neg h Pylori EGD W/O BRS SPEC VARICIES INJ 2021 EGD W/O BRSH [...] 1 EachRfl: 11 mirabegron (MYRBETRIQ) 50 mg [id number] 1 tablet by mouth once daily.Disp: 30 [...] Onset Hypertension Mother Psychiatry Mother DEPRESSION other (Juneau's Chorea) Mother other (Other) Sister stillborn other (Heart Disease) Maternal Grandfather other (Down Syndrome) Paternal Grandfather other (Juneau's Chorea) Brother ADD/ADHD Son other (Rosacea) Son other (Gallbladder disease) Son Asthma Son Colon Cancer No Family History Social (more content not included)...[facility]01-13-2025 History of Present illness Narrative* Linda Randle, PT - 02/18/2024 8:00 AM EST Images from the original note were not included. [facility] THERAPY AT [facility] [place] [address] [facility] [address] Dept: [phone] Dept PHYSICAL THERAPY RE-EVALUATION Patient Name: Petar [...] 5 Wrist Extension 5 5 RHD Dynamometer [employer] Strength Testing (measured in lbs.) Date 02/18/2024 R L Full All Source Intelligence 45# 55# Tip Pinch 10# 10# Keyfob All [employer] Intelligence 16.5# 15# Tripod 10# 12# Scapular Strength [...] Randle PT, DPT, NCS documented in this [facility]01-09-2025 History of Present illness Narrative* Linda Randle PT - 02/14/2024 8:00 AM EST Images from the original note were not included. [facility] THERAPY AT [facility] [place] [address] [facility] [address] Dept: [phone] Dept PHYSICAL THERAPY TREATMENT Patient Name: Petar [...] Randle PT, DPT ,NCS documented in this [facility]01-03-2025 History of Present illness Narrative* Linda Randle PT - 02/08/2024 11:30 AM EST Images from the original note were not included. [facility] THERAPY AT [facility] [address] [facility] [address] [facility] [address] Dept: [phone] Dept PHYSICAL THERAPY TREATMENT Patient Name: Petar [...] Randle PT, DPT, NCS documented in this [facility]12-30-2024 History of Present illness Narrative* Cherelle Valerio, MEDICARE SALES EXECUTIVE - 02/04/2024 8:30 AM EST Images from the original note were not included. [facility] AT [facility] [address] [place] [address] Dept: [phone] Dept PHYSICAL THERAPY TREATMENT Patient Name: Petar [...] PTSD, CVA, Adhesive allergy, NO TAPING Subjective 05/15. Neck and shoulder are good, but that [...] 02/04/2024 12:55 PM EST documented in this [facility]12-26-2024 History of Present illness Narrative* Cherelle Valerio PTA - 01/31/2024 8:00 AM EST Images from the original note were not included. [facility] THERAPY AT [facility] [address] [facility] [address] Dept: [phone] Dept PHYSICAL THERAPY TREATMENT Patient Name: Petar [...] trap, cervical PVM Body Position: Supine Comments: [facility] Home Exercise Program: Deferred Assessment Skilled physical [...] 01/31/2024 9:40 AM EST documented in this [facility]12-20-2024 NoteHNO ID: [id number] Author: KEVIN BALDWIN PA-C Service: ? Author Type: Physician Pattern Cutter Type: Progress Notes Filed: 01/25/2024 14:26 Note Text: This note was created using [employer]. 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 [facility] THERAPY AT [place] COLL[facility] [address] [address] Dept: [phone] Dept PHYSICAL THERAPY TREATMENT Patient Name: Petar [...] Time Entry: 10 Manual Therapy Time Entry: Linda Randle PT, DPT, NCS documented in this [facility]12-16-2024 History of Present illness Narrative* Lindesy Mcgregor, MEDICARE SALES EXECUTIVE - 01/21/2024 10:30 AM EST Images from the original note were not included. [facility] THERAPY AT [facility] [address] [facility] [address] Dept: [phone] Dept PHYSICAL THERAPY TREATMENT Patient Name: Petar [...] 18 Lindsey Mcgregor PTA Cosigned by Linda Randle PT at 01/21/2024 11:28 AM EST documented in this [facility]12-12-2024 History of Present illness Narrative* Amie Loyola, MEDICARE SALES EXECUTIVE - 01/17/2024 2:00 PM EST Images from the original note were not included. [facility] THERAPY AT [facility] [address] [place] [address] Dept: [phone] Dept PHYSICAL THERAPY TREATMENT Patient Name: Petar [...] 8 Amie Loyola PTA Cosigned by Trena Beebe PT at 01/17/2024 5:08 PM EST documented in this [place] [address]24 History of Present illness Narrative* Linda Randle, PT - 01/10/2024 8:00 AM EST Images from the original note were not included. 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 No DASIA and reports that she has a hx of migraines. 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) and reports that it [...] 4 Wrist Extension 5 4 RHD Dynamometer [employer] Strength Testing (measured in lbs.) Date 01/10/2024 R L Full [employer] 45# 40# Tip Pinch 10# 6# Keyfob [employer] 14# 10# Tripod 10# 10# Scapular Strength [...] than 15% (Initiated) Start: 01/10/24 Expected End: 03/10/24 Plan Frequency and Duration: 2/wk for 5 [...] Randle PT, DPT, NCS documented in this [facility]12-02-2024 NoteName: Brittney Alcocer Date of : 1975 [...] Jain MD Location: Testing was conducted at [facility] as an outpatient.[facility] [id number] Procedure note* Joel Jain MD - 01/07/2024 [...] Jain MD Location: Testing was conducted at [facility] as an outpatient. [facility] Work Phone: 1(933) 193-383012-02-2024 Procedure note* Joel Jain MD - 01/07/2024 [...] Jain MD Location: Testing was conducted at [facility] as an outpatient. documented in this [facility]12-02-2024 History of Present illness Narrative* Linda Randle, PT - 01/07/2024 12:00 PM EST Images from the original note were not included. [facility] [place] [address] [facility] [address] [facility] [address] Dept: [phone] Dept PHYSICAL THERAPY RE-EVALUATION/DISCHARGE Patient Name: Petar [...] ability ; 12/05/23: 47/84 = 56%; 01/07/24: 80.9%ability Objective ANKLE Leg [...] Randle PT, DPT, NCS documented in this [facility]11-27-2024 History of Present illness Narrative* Cherelle Valerio, MEDICARE SALES EXECUTIVE - 01/02/2024 8:00 AM EST Images from the original note were not included. [facility] THERAPY AT [facility] [address] [place] [address] Dept: [phone] Dept PHYSICAL THERAPY TREATMENT Patient Name: Petar [...] 01/02/2024 9:59 AM EST documented in this [facility]11-26-2024 NoteHNO ID: [id number] Author: SNOW QUICK PA-C Service: ? Author Type: Physician Pattern Cutter Type: Progress Notes Filed: 01/01/2024 08:35 Note [...] Depression Penicillin G GI (more content not included)...[facility] 12-31-2023 History of Present illness Narrative* Serg Sinha, MEDICARE SALES EXECUTIVE - 12/31/2023 11:30 AM EST Images from the original note were not included. [facility] [address] [place] [address] Dept: [phone] Dept PHYSICAL THERAPY TREATMENT Patient Name: Petar [...] Time Entry Therapeutic Exercise Time Entry: 25 Serg Sinha PTA Cosigned by Linda Randle PT at 12/31/2023 12:34 PM EST documented in this [facility]11-22-2024 NoteHNO ID: [id number] Author: CRISTOBAL OTOOLE APRN.[facility] Service: ? 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 Do [...] 28 tabletRfl: 11 MEDICATI (more content not included)...[facility]11-21-2024 History of Present illness Narrative* Cherelle Valerio, MEDICARE SALES EXECUTIVE - 12/27/2023 8:00 AM EST Images from the original note were not included. [facility] tarpipe [facility]ALTH THERAPY AT [place] [employer] [place] [address] [place] [address] [place] [address] Dept: [phone] Dept PHYSICAL THERAPY TREATMENT Patient Name: Petar [...] L>R gastroc/plantar fascia Body Position: Prone Comments: STM Home Exercise Program: Deferred Assessment [...] 12/27/2023 9:51 AM EST documented in this [facility]11-16-2024 History of Present illness Narrative* Linda Randle, PT - 12/22/2023 7:00 AM EST Images from the original note were not included. [facility] [address] [place] [address] [place] [address] Dept: [phone] Dept PHYSICAL THERAPY TREATMENT Patient Name: Petar [...] 15 Manual Therapy Time Entry: 15 Linda Randle PT, DPT, NCS documented in this [facility]11-09-2024 History of Present illness Narrative* Kalpesh Dumont, ELAN - 12/15/2023 8:00 AM EST [facility] THERAPY AT [facility] [address] [facility] [address] Dept: [phone] Dept PHYSICAL THERAPY TREATMENT Patient Name: Petar [...] 12/15/2023 9:15 AM EST documented in this [facility]11-07-2024 History of Present illness Narrative* Cherelle Valerio PTA - 12/13/2023 10:30 AM EST Images from the original note were not included. [facility] THERAPY AT [facility] [address] [facility] [address] Dept: [phone] Dept PHYSICAL THERAPY TREATMENT Patient Name: Petar [...] surface of L foot, tinea pedis Subjective 05/15. I am in the process of moving, [...] Activity Time Entry: 8 Cherelle Valerio PTA Cosigned by Linda Randle PT at 12/13/2023 1:01 PM EST documented in this [facility]11-06-2024 NoteHNO ID: [id number] Author: YENNY OSMAN APRN.[employer] [employer] Service: ? Author Type: Nurse Practitioner Type: [...] Analgesic Diclofenac (Voltaren, Cataflam, Cambia) Hydrocodone/Acetaminophen (Vicodin, Gladstone) Indomethacin (Indocin) Ketorolac (Toradol) Tramadol (Ultram) celebrex Anti-Anxiety Alprazolam (Xanax, Niravam) Anti-Migraine Naratriptan (Amerge) Rizatriptan (Maxalt) Sumatriptan (Imitrex, Sumavel) raised blood pressure cannot use triptans - H/O TIA and MD GEPANTS Rimegepant (Nurtec) Over the Counter Medications [...] 0-100) 60 13.33 4 (more content not included)...[facility]11-05-2024 NoteHNO ID: [id number] Author: DEBORAH TEIXEIRA PA-C Service: ? Author Type: Physician Pattern Cutter Type: Progress Notes Filed: 12/11/2023 08:54 Note [...] Lymph 1.00 - 4.00 k/uL 1.17 Abs Jessamine <0.87 k/uL 0.54 Abs Eosin <0.46 k/uL [...] 120 tabletRfl: 5 mirabegron (MYRBETRIQ) 50 mg Ql36Tirs 1 tablet by mouth once daily.Disp: 30 [...] spontaneous and fluent without dysarthria. Short and continuous churn buttermaker memory, cognition and general fund of knowledge are good. Attention span and concentration are excellent. Cranial Nerves: VII-face is symmetric without evidence of weakness. VIII-hearing intact. Assessment: (G43.719) Chronic migraine without aura, intractable, without status migrainosus (primary encounter diagnosis) Plan: Brittney Alcocer is a 48 year old year old female, with a history of chronic migraine, stroke, MD,chronic pain syndrome, TMJD, concussion, peptic ulcer, hypothyroid, [...] is currently taking (more content not included)... [facility]11-05-2024 NoteHNO ID: [id number] Author: QUEENIE RENAE RN Service: ? Author Type: Registered Nurse Type: Progress Notes Filed: 12/11/2023 10:54 Note Text: 0810 Patient in for 3rd day of IV infusions. Patient rated headache 2/10. Patient stated mild nausea and no dizziness. Patient educated on medications to be administered. Patient verbalized understanding and agreed to proceed with infusions. 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 Pt tolerated infusion well. Pt rated headache 0/10. Pt stated mild nausea and no dizziness. Pt discharged from treatment room. [facility]11-04-2024 NoteHNO ID: [id number] Author: CARINA WU RN Service: ? Author Type: Registered Nurse Type: Progress Notes Filed: 12/10/2023 09:57 Note Text: Patient in for day 2 of IV infusions. Patient rated headache 8/10. Patient stated mild nausea and no dizziness. Patient educated on medications to be administered and a wrecker driver to transport home was confirmed. Patient verbalized understanding and agreed to proceed with infusions. PRN zofran and benadryl given per order Pts infusions complete. Pt tolerated infusion well. Pt rated headache 5/10. Pt stated no nausea and moderate dizziness. Pt discharged from treatment room in a wheelchair.[facility]11-01-2024 NoteHNO ID: [id number] Author: PAULINO RAE PA-C Service: ? Author Type: Physician Pattern Cutter Type: Progress Notes Filed: 12/07/2023 08:38 Note [...] factors: History of a stroke 1998 and MD 1998 with cocaine overdose, hyperlipidemia Triptan dose [...] Lymph 1.00 - 4.00 k/uL 1.17 Abs Jessamine <0.87 k/uL 0.54 Abs Eosin <0.46 k/uL [...] 120 tabletRfl: 5 mirabegron (MYRBETRIQ) 50 mg To25Nlvw 1 tablet by mouth once daily.Disp: 30 [...] and clear, coherent, and relevant. Short and continuous churn buttermaker memory, cognition and general fund of knowledge are good. Attention span and concentration are excellent. Cranial Nerves: VII-face is symmetric without evidence of weakness. VIII-hearing intact. Assessment: (G43.719) Chronic migraine without aura, intractable, without status migrainosus (primary encounter diagnosis) Plan: Brittney Alcocer is a 48 year old year old female, with a history of History of a stroke 1998 and MD 1998 with cocaine overdose following up today [...] which included preparing to see the patient, [id number] patient care, completing clinical documentation, obtaining and/or reviewing separately obtained history, performing a medically appropriate examination, and counseling and educating the patient/family/caregiver. Paulino Rae PA-C Headache Section [facility] December 05, (more content not included)...[facility]11-01-2024 NoteHNO ID: [id number] Author: QUEENIE RENAE RN Service: ? Author Type: Registered Nurse Type: Progress Notes Filed: 12/07/2023 10:09 Note Text: 0728 Patient in for 1st day of IV infusions. Patient rated headache 8/10. Patient stated mild nausea and mild dizziness. Patient educated on medications to be administered. Patient verbalized understanding and agreed to proceed with infusions. 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 Pt tolerated infusion well. Pt rated headache 5/10. Pt stated mild nausea and mild dizziness. Pt discharged from treatment room in / to wrecker driver [facility]10-30-2024 History of Present illness Narrative* Linda Randle, PT - 12/05/2023 9:00 AM EDT Images from the original note were not included. [facility] THERAPY AT [facility] [address] [facility] [address] Dept: [phone] Dept PHYSICAL THERAPY RE-EVALUATION Patient Name: Petar [...] after prolonged standing. Pain: Current: 4/10 Best: 410 Worst: 10 Symptoms Aggravated by: extended standing, donning shoes/socks, [...] Treatment Time Start Time: 0900 Stop Time: 30 Time Calculation (min): 30 min PT Therapeutic Procedures Time Entry Therapeutic Activity Time Entry: 28 Linda Randle PT, DPT, NCS documented in this [facility]10-23-2024 History of Present illness Narrative* Cherelle Valerio, MEDICARE SALES EXECUTIVE - 11/28/2023 8:30 AM EDT Images from the original note were not included. [facility] THERAPY AT [facility] [address] [facility] [place] [address] Dept: [phone] Dept PHYSICAL THERAPY TREATMENT Patient Name: Petar Aclocer : 1975 Date of Service: 11/28/2023 Referring [...] 11/28/2023 10:59 AM EDT documented in this [facility]10-21-2024 History of Present illness Narrative* Cherelle Valerio PTA - 11/26/2023 9:00 AM EDT Images from the original note were not included. [facility] THERAPY AT [facility] [address] [place] [address] Dept: [phone] Dept PHYSICAL THERAPY TREATMENT Patient Name: Petar [...] 15 Cherelle Valerio PTA documented in this [facility]10-16-2024 History of Present illness Narrative* Linda Randle, PT - 11/21/2023 9:00 AM EDT Images from the original note were not included. [facility] HEALTH THERAPY AT [facility] [address] [address] Dept: [phone] Dept PHYSICAL THERAPY TREATMENT Patient Name: Petar [...] Treatment Time Start Time: 0900 Stop Time: 0930 Time Calculation (min): 30 min PT Therapeutic Procedures Time Entry Therapeutic Exercise Time Entry: 10 Manual Therapy Time Entry: 20 Linda Randle PT, DPT, NCS documented in this [facility]10-14-2024 History of Present illness Narrative* Cherelle Valerio PTA - 11/19/2023 9:00 AM EDT Images from the original note were not included. [facility] THERAPY AT [facility] [address] [address] Dept: [phone] Dept PHYSICAL THERAPY TREATMENT Patient Name: Petar [...] strengthening exercises this date. Patient waschallenged with BAPS board. Patient completed balance activities [...] Entry: 10 Cherelle Valerio PTA documented in this [facility]10-09-2024 NoteHNO ID: [id number] Author: MARISOL JIMENEZ APRN.[facility] Service: ? Author Type: Nurse Practitioner Type: Progress Notes Filed: 11/14/2023 14:27 Note Text: Headache Center - Virtual Visit Infusion Triage This visit was conducted as a virtual visit, with patient's permission, via Zoom. It required patient-provider interaction for the medical decision making as documented below. Patient stated name and Patient location [place] I have communicated my name and active licensure. The patient's identity and physical location were verified at the time of this visit. Either the patient or their legal personnel representative has been informed of the risks and benefits of -- and alternatives to -- treatment through a remote evaluation and consents to proceed with the evaluation remotely. HPI: Brittney Alcocer is a 48 year old year old female, with a history of chronic migraine, stroke, MD,chronic pain syndrome, TMJD, concussion, peptic ulcer, hypothyroid, [...] intensity New health events/diagnosis since last visit (MD/stroke/DM/HTN/etc): History of a stroke 1998 and MD 1998 with cocaine overdose Cardiovascular risk factors: [...] Lymph 1.00 - 4.00 k/uL 1.17 Abs Jessamine <0.87 k/uL 0.54 Abs Eosin <0.46 k/uL 0.11 Abs Baso <0.11 k/uL 0.03 Other Therapies Nerve blocks Analgesic Diclofenac (Voltaren, Cataflam, Cambia) Hydrocodone/Acetaminophen (Vicodin, Gladstone) Indomethacin (Indocin) Ketorolac (Toradol) Tramadol (Ultram) celebrex Anti-Anxiety Alprazolam (Xanax, Niravam) Anti-Convulsant Divalproex sodium (Depakote) Gabapentin (Neurontin) Anti-Depressant and Antipsychotic Amitriptyline (Elavil) Bupropion (Wellbutrin) Citalopram (Celexa) Fluoxetine (Prozac) Olanzapine (Zyprexa, Zydis) Quetiapine (Seroquel) Sertraline (Zoloft) Venlafaxine (Effexor) Antiemetics Ondansetron Prochlorperazine Promethazine Reglan (Metoclopramide) Anti-Migraine Naratriptan (Amerge) Rizatriptan (Maxalt) Sumatriptan (Imitrex, Sumavel) raised blood pressure cannot use triptans - H/O TIA and MD Blood Pressure NO beta blockers - asthma [...] Short-term memory loss 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 [facility] [employer] tarpipe [facility] HEALTH THERAPY AT [facility] [employer] [address] [place] [address] Dept: [phone] Dept PHYSICAL THERAPY TREATMENT Patient Name: Petar [...] Entry: 10 Cherelle Valerio PTA documented in this [facility]10-04-2024 NoteHNO ID: [id number] Author: CAREY MORRISON LPN Service: ? Author Type: LICENSED NURSE Type: Progress Notes Filed: 11/09/2023 12:02 Note Text: ED Follow Up: Patient discharged from [facility] ED on 11/09/2023. 1. How are you [...] you able to contact the office or buttonhole facer provider prior to your ED visit? No 5. Is there anything else I can do for you today? [facility] 11-09-2023 NotePatient Outreach (AGINTMLW) BRITTNEY ALCOCER ([id number]) 1975 F NFR Date Time Provider Department 11/09/23 CAREY MORRISON During your visit today, we recorded the following information about you: Carey Morrison LPN 11/09/2023 12:02 PM Signed ED Follow Up: Patient discharged from [facility] ED on 11/09/2023. 1. How are you [...] you able to contact the office or buttonhole facer provider prior to your ED visit? No [...] with right-sided sciatica [M54.41]03/23 (more content not included)...[facility]09-25-2024 History of Present illness Narrative* Daniel Thayer - 10/31/2023 12:00 PM EDT Images from the original note were not included. [facility] THERAPY AT [facility] [address] [facility] [address] Dept: [phone] Dept PHYSICAL THERAPY EVALUATION Patient Name: Petar [...] was about a week ago. 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 PSHX: Petar has no past [...] into her heels. Pain: Current: 09/14 Best: 10 Worst: 10 Symptoms Aggravated by: extended standing, stagnant ankles, [...] L gastroc Flexibility: Gastroc limited moderately Assessment Star is a 48 y.o. patient [...] Prone Home Exercise Program: Created and see [facility] Time Entry Total Treatment Time Start [...] Randle PT, DPT, NCS documented in this [facility]08-29-2024 NoteHNO ID: [id number] Author: ERIC COSME PA Service: ? 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 Herpes swab obtained. Results pending. SHAHZAD [facility]08-21-2024 History of Present illness Narrative* Myrtle Garcia PT - 09/26/2023 8:47 AM EDT Images from the original note were not included. [facility] THERAPY AT [facility] [address] [address] Discharge Notification Patient Name: Petar Alcocer : [...] clarification. Myrtle Garcia PT documented in this [facility]08-16-2024 NoteHNO ID: [id number] Author: CAREY MORRISON LPN Service: ? Author Type: LICENSED NURSE Type: Progress Notes Filed: 09/21/2023 13:00 Note Text: ED Follow Up: Patient discharged from [facility] ED on 09/18/2023. 1. How are you [...] you able to contact the office or buttonhole facer provider prior to your ED visit? No 5. Is there anything else I can do for you today? [facility] 09-21-2023 NotePatient Outreach (AGFAMPLE) BRITTNEY ALCOCER ([id number]) 1975 F NFR Date Time Provider Department 09/21/23 CAREY MORRISON During your visit today, we recorded the following information about you: Carey Morrison LPN 09/21/2023 1:00 PM Signed ED Follow Up: Patient discharged from [facility] ED on 09/18/2023. 1. How are you [...] you able to contact the office or buttonhole facer provider prior to your ED visit? No [...] intractable, without st* (more content not included)... [facility]08-13-2024 NoteHNO ID: [id number] Author: GLO DALAL APRN.[facility] Service: ? 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 NORMAL. Repeat in 10 years. 2016: DILATION AND CURETTAGE DXAND/THER NONOBSTETRIC Comment: Dilation AND curettage X 2 02/25/2010: EGD Comment: Abnormal LES, esophagitis, antral ulcers, retained fluid in stomach, pos H Pylori 04/14/2008: EGD Comment: antral gastritis, neg h Pylori 2021: EGD W/O [facility] SPEC VARICIES INJ 06/29/2021: EGD W/O [facility] SPEC VARICIES INJ No date: LAPAROSCOPY SURG [...] 60 capsuleRfl: 0 mirabegron (MYRBETRIQ) 50 mg [id number] 1 tablet by mouth once daily.Disp: 30 [...] Grandfather other (Down Syndrome) Paternal Grandfather other (Juneau's Chorea) Brother ADD/ADHD Son other (Rosacea) Son other (Gallbladder disease) Son Asthma Son Colon Cancer No Family History Social History Tobacco Use Smoking status: Every Day Packs/day: 0.50 Years: 36.00 Additional pack years: 0.00 Total pack years: 18.00 Types: Cigarettes Smokeles (more content not included)...[facility]08-06-2024 Note HNO ID: [id number] Author: YENNY OSMAN APRN.[employer] Service: ? Author Type: Nurse Practitioner Type: [...] Analgesic Diclofenac (Voltaren, Cataflam, Cambia) Hydrocodone/Acetaminophen (Vicodin, Gladstone) Indomethacin (Indocin) Ketorolac (Toradol) Tramadol (Ultram) celebrex Anti-Anxiety Alprazolam (Xanax, Niravam) Anti-Migraine Naratriptan (Amerge) Rizatriptan (Maxalt) Sumatriptan (Imitrex, Sumavel) raised blood pressure cannot use triptans - H/O TIA and MD GEPANTS Rimegepant (Nurtec) Over the Counter Medications [...] days/month: 0 (0 headache-free hours) Migraine severity: 1010 After treatment with Onabotulinum Toxin A: Number [...] 147.3 cm (4' 1 (more content not included)...[facility]07-23-2024 NoteHNO ID: [id number] Author: LAURA CAROLINA RN Service: ? Author Type: Registered Nurse Type: Nursing Progress Note Filed: 08/28/2023 11:56 Note Text: Sugar Mill Worker declined to come in. Is outside in car. Pulling up to fiber picker sign now. [facility]07-22-2024 NoteHNO ID: [id number] Author: SNOW QUICK PA-C Service: ? Author Type: Physician Pattern Cutter Type: Progress Notes Filed: 08/27/2023 09:25 Note Text: CHIEF COMPLAINT: Patient presents with: Abdominal Pain: Constipation, nausea/vomiting. Was in ER on the 12th. 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 PSHX: Petar has no past [...] plantar aspect and at fibular head Assessment Petar is a 48 y.o. patient who presents [...] Therapeutic Exercise Activity 1: Seated Calf Stretch, [id number] Therapeutic Exercise Activity 2: Seated Big Toe Extension Stretch, [id number] Therapeutic Exercise Acitivity 3: Toe Extensions, [id number] Therapeutic Exercise Activity 4: Foot Roll, 30sec [...] 10 Myrtle Garcia PT documented in this [facility]07-16-2024 NoteHNO ID: [id number] Author: CAREY MORRISON LPN Service: ? Author Type: LICENSED NURSE Type: Progress Notes Filed: 08/21/2023 10:39 Note Text: ED Follow Up: Patient discharged from [facility] ED on 08/17/2023. 1. How are you [...] you able to contact the office or buttonhole facer provider prior to your ED visit? No 5. Is there anything else I can do for you today? [facility] 08-21-2023 NotePatient Outreach (AGFAMPLE) BRITTNEY ALCOCER ([id number]) 1975 F NFR Date Time Provider Department 08/21/23 CAREY MORRISON During your visit today, we recorded the following information about you: Carey Morrison LPN 08/21/2023 10:39 AM Signed ED Follow Up: Patient discharged from [facility] ED on 08/17/2023. 1. How are you [...] you able to contact the office or buttonhole facer provider prior to your ED visit? No [...] Unknown Date Reviewed: 08/17/2023 Reviewed by: Laura Mijares RN - Fully Assessed Prescriptions as of [...] Chronic bilateral low back (more content not included)...[facility]04-12-2024 NoteHNO ID: [id number] Author: JUAN CARLOS DOZIER APRN.[employer] Service: Anesthesiology Author Type: Nurse [employer] Teacher Type: Anesthesia Procedure Notes Filed: 05/18/2023 07:56 Note Text: ANESTHESIOLOGY PROCEDURE NOTE Airway General Information Procedure Start Time/Medication Administration: 05/18/2023 7:46 AM Procedure End Time: 05/18/2023 7:48 AM Patient location during procedure: OR Timeout Performed Pre-procedure: timeout performed Consent Obtained: Yes Patient identity confirmed: arm band, care cylinder steamer and patient Staffing Anesthesiologist: Sameer Dominguez DO COLLEGE INTERN: Juan Carlos Dozier APRN.COLLEGE INTERN Performed by: anesthesiologist and COLLEGE INTERN Indications and Patient Condition Indications for airway management: anesthesia Preoxygenated: yes anesthesia circuit Patient position: sniffing Final Airway Details Final airway type: supraglottic airway Number of attempts at approach: 1 Final Supraglottic Airway: i-gel Size 4 Seal Adequate: yes SIGNATURE: Juan Carlos Dozier APRN.CRNA PATIENT NAME: Brittney Alcocer DATE: May 18, 2023 TIME: 7:55 AM [facility]: [id number] NoteHNO ID: [id number] Author: ELDER RAGLAND RN Service: Nursing Author Type: Registered Nurse [...] yellow in color), Ensure Pre-Surgery (given by TITO or jazmin Diego), fruit juice without pulp [...] directed. Bring copy of Living Will/Power of Heavy Lift Rigger. Do not smoke or chew. If you [...] the Surgery Center. UPON ARRIVAL: Access to [facility] ([facility] is located on [address] [employer] parking is available for your convenience from [...] updated instructions for the morning of your procedure.[facility]04-11-2024 NoteHNO ID: [id number] Author: VALERIY MIJARES PA-C Service: ? Author Type: Physician Pattern Cutter Type: Progress Notes Filed: 05/17/2023 11:25 Note [...] updated instructions for the morning of your procedure.[facility]09-19-2023 NoteHNO ID: [id number] Author: Princess Berokwitz Tech Service: Radiology Author Type: Materials Technician Type: Progress Notes Filed: 10/24/2022 10:21 AM [...] BY: Jane Gayle October 24, 2022 10:20 [facility] Discharge instructions* Discharge Instructions* Binta Vidal MD - 05/21/2022 8:[address] on Percocet or Flexeril * Attachments The following attachments cannot be sent through Care Everywhere. * Flank Pain ED (Italian) documented in this [facility]04-16-2023 Emergency department Note* Irais Napier RN - [...] call light in reach. Irais Napier RN 05/21/221835 [facility]vcqhm12-70-1452 Emergency department Note* Irais Napier RN - [...] RN - 05/21/2022 6:21 PM EDT call out operator light-tearful, states pain to back really bad. Physician aware with no further orders. Snow Bradley RN 05/21/22 182 * Ángel Maddox MD - 05/21/2022 5:00 PM EDT Emergency Department Encounter [facility] ED Patient: Brittney Alcocer : 1975 Date [...] injection 4 mg (4 mg IntraVENous Given 05/21/221827) Brittney Alcocer is a 47 y.o. female [...] dictating provider for clarification. Ángel Maddox MD [facility] Ángel Maddox MD 05/21/221836 * Binta Vidal MD - 05/21/2022 5:00 [...] Danette Fitch RN 05/21/222011 documented in this encounterS[address]Eufryc23-59-2751 Emergency department Note* Snow Bradley RN - 05/21/2022 6:21 PM EDT call out operator light-tearful, states pain to back really bad. Physician aware with no further orders. Snow Bradley RN 05/21/22 182 [address]Qoyqna53-18-4148 Emergency department Note* Danette Fitch RN - 05/21/2022 5:00 PM EDT Patient continues to complain of pain. VS WNL. Dr. Vidal notified and at bedside discussing results and POC. Danette Fitch RN 05/21/222011 [address]Vueqks59-04-4327 Physician Emergency department Note* Ángel Maddox MD - 05/21/2022 5:00 PM EDT Emergency Department Encounter [facility] ED Patient: Brittney Alcocer : 1975 Date [...] 4 mg (4 mg IntraVENous Given 05/21/22 173) morphine sulfate (PF) injection 4 mg (4 [...] dictating provider for clarification. Ángel Maddox MD [facility] Ángel Maddox MD 05/21/22 1837 [employer] Phone: 1([phone] 413-844204-16-2023 Physician Emergency department Note* Binta Vidal MD [...] drive her home. Binta Vidal MD 05/21/222022 [facility]Mnvwvp01-34-0445 Emergency department Note* Irais Napier RN - [...] off [facility] she is [facility] a ride from her . Irais Napier RN 04/28/222112 [facility] HospitalJuownj52-15-1065 Emergency department Note* Irais Napier RN - [...] off the unit [facility], where she is awaiting a ride from [...] Systems Pertinent positives and negatives as per [facility] PAST MEDICAL HISTORY Past Medical History: Diagnosis Date Bipolar 1 disorder (HCC) History of heart attack Migraine Myocardial infarction (CMS/HCC) (HCC) PTSD (post-traumatic stress disorder) Stroke (CMS/HCC) ([facility]) Tendonitis SURGICAL HISTORY History reviewed. No pertinent [...] Discharge 04/28/2022 08:52:18 PM PATIENT REFERRED TO: [facility] ED [address] [facility] [address] Go to As needed, If symptoms worsen Cristobal Otoole [address] [facility] [place] [address] Schedule an appointment as soon as [...] in low position . documented in this encounterSLakeHealth [facility] CenterUxzfai01-22-2861 Emergency department Triage note* Velma Beebe LPN [...] reach. Bed is in low position . [facility] HospitalTfokfl05-52-2142 Physician Emergency department Note* Orlando Membreno DO [...] Discharge 04/28/2022 08:52:18 PM PATIENT REFERRED TO: [facility] ED [address] [place] [address] Go to As needed, If symptoms worsen Cristobal Otoole [address] [place] [address] Schedule an appointment as soon as possible [...] Emergency Medicine Provider Orlando Membreno DO 04/28/222054 [employer] Phone: 1(460) 781-320301-17-[address] Casas [facility] February 21, 2022 3:59pm Note Date/Time February 21, 2022 3 :24pm [facility] Medical Records Department [address] [place] [address] Emergency Department Summary 02/21/22 MR#: [id number] Acct: [id number] Name: BRITTNEY ALCOCER Rep #:[id number] : 1975 47 From: Nuno Casas MD PCP: GILA Baptiste Status:REG ER Location: ED HPI History of Present Illness Chief Complaint: Head Injury Detail of Chief Complaint: Struck left gnosticist area by branch with LOC, headache and visual disturbance Informant: patient Onset/Context/Timing Onset: Hours Mechanism/Context: Blunt Injury Quality of Pain: Aching Location: Left gnosticist region Current Severity: Moderate Maximum Severity: Severe [...] of kidney. The kidney surgery was done [facility] facility. She was seen by Dr. Sosa. Patient presently complains of headache. She complains of change in vision. She does report nausea without vomiting. She states she was cutting a tree at her sisters. A branch that was 4 cm in diameter struck her left side of the head near the gnosticist area. She complains of pain in that [...] similar symptoms: Yes Recent Illness/Hospitalization: No PFSH PFS Medical History Carpal tunnel syndrome Depression Diverticulosis [...] There is pain palpation over the left gnosticist region. There is slight soft tissue swelling [...] no sensory deficits noted and gait normal Dawna Coma Scale: document GCS findings Spontaneous Obeys [...] of conscious 5 minutes based on the Wallisian CThead rule and the Ida rule imaging of the head is warranted. CT of the head without contrast was ordered to evaluate for epidural hematoma in light of area of trauma, subdural hematoma, intraparenchymal contusion versus traumatic subarachnoid hemorrhage. Her symptoms could also be due to a concussion. Patient was made NPO. Review of [facility] as previously described. [...] Qty: 10 0RF Primary Care Provider: Cristobal Otoole NP Referrals: Cristobal Otoole NP, SHOE CUTTER-C [Primary Care Provider] - 10-14 Days if [...] your Primary Care Provider. Call [facility] ([phone]) or report to the closest Emergency Room. Call 911 if necessary. 02/21/22 0505 <Electronically signed by Nuno Casas MD> Cosigner Signature (if applicable): CC: GILA Otoole ~ Signed [facility] Work Phone: 1(250) 207-494501-17-2023 Hospital Discharge instructions Additional Instructions 90-95 patient's diagnosed with concussion have resolution of symptoms in 4 to 6 weeks. The symptoms are present experience are due to the concussion. You should avoid any activity that puts her at risk for having head trauma until you are symptom-free. A prescription for nausea medicine was sent to your designated pharmacy.[facility] Work Phone: 1(719) 501-325709-22-2022 NoteHNO ID: [id number] Author: FAY Padilla Service: Radiology Author Type: [...] BY: FAY Padilla October 27, 2021 8:00 AMFayette [facility] HospitalPwurzbtu54-28-3285 Hospital Discharge instructions Patient Education 07/13/2021 18:34:17 [...] face You have trouble talking or seeing [phone] [employer]. [address] [place] [address]. All rights reserved. This information is not [...] face -- Difficulty with speech or vision [id number] [employer]. [address] [place] [address]. All rights reserved. This information is not intended as a substitute for professional medical care. Always follow yourhealthcare professional's instructions. Follow Up Care 07/13/2021 17:08:38 With:GURJIT OTOOLE APRN-POLISHER HAND Address: [address] [place] [address]- When:2-4 days [facility] Evaluation + Plan note No data available for this section [facility] EvAlphaStripeation noteNo assessment information available [facility] Work Phone: Evaluation note* Diagnosis Flank pain- Primary Abdominal pain, unspecified site [facility]* Diagnosis Spontaneous rupture of extensor tendons, left lower leg- Primary Short Achilles tendon (acquired), left ankle Plantar fascial fibromatosis [facility]* Diagnosis Plantar fascial fibromatosis Pain in left foot Pain in soft tissues of limb Pain in right foot Pain in soft tissues of limb documented [facility]* Diagnosis Plantar fascial fibromatosis Pain in left foot Pain in soft tissues of limb Neuralgia and neuritis, unspecified [facility]* Diagnosis Plantar fascial fibromatosis- Primary Pain in left foot Pain in soft tissues of limb documented [facility]* Diagnosis Plantar fascial fibromatosis- Primary Pain in left foot Pain in soft tissues of limb Pain in right foot Pain in soft tissues of limb documented [facility]* Diagnosis Plantar fascial fibromatosis- Primary Pain in left foot Pain in soft tissues of limb documented [facility]* Diagnosis Plantar fascial fibromatosis- Primary Pain [...] tissues of limb documented in this encounter [facility] note* Diagnosis Anesthesia of skin Disturbance of skin sensation Torticollis Torticollis, unspecified Pain in left shoulder documented in this encounter [facility] note* Diagnosis Anesthesia of skin- Primary Disturbance of skin sensation documented in this encounter [facility] note* Diagnosis Migraine with aura and without status migrainosus, not intractable- Primary documented in this encounter [facility] note* Diagnosis Torticollis- Primary Torticollis, unspecified Anesthesia of skin Disturbance of skin sensation documented in this encounter [facility] note* Diagnosis Plantar fascial fibromatosis- Primary Pain in left foot Pain in soft tissues of limb Neuralgia and neuritis, unspecified documented in this encounter [facility] note* Diagnosis Torticollis- Primary Torticollis, unspecified Anesthesia of skin Disturbance of skin sensation documented in this encounter [facility] note* Diagnosis Torticollis- Primary Torticollis, unspecified Pain in left shoulder documented in this encounter [facility] note* Diagnosis Torticollis- Primary Torticollis, unspecified Pain in left shoulder Anesthesia of skin Disturbance of skin sensation documented in this encounter [facility]* Diagnosis Torticollis- Primary Torticollis, unspecified documented in this encounter [facility] note* Diagnosis Torticollis- Primary Torticollis, unspecified documented in this encounter [facility]* Diagnosis Torticollis- Primary Torticollis, unspecified Anesthesia of skin Disturbance of skin sensation documented in this encounter [facility] note* Diagnosis Closed nondisplaced fracture of distal phalanx of left ring finger, initial encounter- Primary documented in this encounter [facility]* Diagnosis Closed displaced fracture of distal phalanx of left ring finger, initial encounter- Primary documented in this encounter [facility] note* Diagnosis Torticollis- Primary Torticollis, unspecified documented in this encounter [facility] note* Diagnosis Closed displaced fracture of distal [...] subsequent encounter- Primary documented in this encounter [facility]* Diagnosis Closed displaced fracture of distal phalanx of left ring finger with routine healing, subsequent encounter- Primary [facility]* Diagnosis Closed displaced fracture of distal phalanx of left ring finger with routine healing, subsequent encounter- Primary Closed displaced fracture of distal phalanx of left ring finger with routine healing, subsequent encounter [facility]* Attachments The following attachments cannot be sent through Care Everywhere. * Home Headache Remedies (Italian) [facility]* Attachments The following attachments cannot be sent through Care Everywhere. * Finger Fracture (Italian) [facility] Dis[facility] Additional Instructions Please take the prescribed medication as directed to control pain and resolve your infection. It will typically take 2 to 3 days for this to show improvement. Return to the ER should you have any further concernsWNationwide Children's Hospital Work Phone: Progress note No data available for this section [facility] Reason for referral (narrative)No reason for referral information availableWilson Health Work Phone: Reason for visit Narrative* Therapy (Routine) - Authorized Specialty Diagnoses / Procedures Referred By Zee mukherjee Referred To Contact Physical Therapy Diagnoses Plantar fascial fibromatosis Pain in left foot Neuralgia and neuritis, unspecified Procedures MO OFFICE/OUTPATIENT [facility] 60 MINUTES Sabas Reyes, GABBY [address] [place] [address] Phone: tel: fax: [facility] Therapy at [address] [place] [address] Phone: tel: fax: Referral ID Status Reason Start Date Expiration Date Visits Requested Visits Authorized [id number] Authorized Eval and Treat 10/24/2023 17 17 [facility] for visit Narrative* Hospital - Outpatient (Routine) - Closed Specialty Diagnoses / Procedures Referred By Zee mukherjee Referred To Contact Neurology Diagnoses Neuralgia and neuritis, unspecified Pain in left foot Pain in right foot Procedures Nerve conduction test with EMG Sabas Reyes, DPM [address] [place] [address] Phone: tel: fax: Referral ID Status Reason Start Date Expiration Date Visits Re quested Visits Authorized [id number] Closed 12/28/2023 12/22/2024 1 1 [facility] for visit Narrative* Therapy (Routine) - Authorized Specialty Diagnoses / Procedures Referred By Zee mukherjee Referred To Contact Physical Therapy Diagnoses Anesthesia of skin Torticollis Pain in left shoulder Procedures MO OFFICE/OUTPATIENT [facility] 60 MINUTES Cristobal Otoole [address] [place] [address] Phone: tel: fax: [facility] at [address] [place] [address] [place] [address] Phone: tel: fax: Referral ID Status Reason Start Date Expiration Date Visits Requested Visits Authorized [id number] Authorized Eval and Treat 12/31/2023 12/25/2024 30 30 [facility] for visit Narrative* Auth/Cert (Routine) Specialty Diagnoses / Procedures Referred By Zee mukherjee Referred To Contact Diagnoses Displaced fracture of distal phalanx of left ring finger, subsequent encounter for fracture with routine healing Procedures MO PRQ SKEL FIXJ DSTL PHLNGL FX FNGR/THMB EA CLOSED REDUCTION PERCUTANEOUS PINNING LEFT RING FINGER DISTAL PHALANX FRACTURE Trent Alas MD [address] [place] [address] [address] [place] [address] Phone: tel: fax: Referral ID Status Reason Start Date Expiration Date Visits Re quested Visits Authorized [id number] 03/27/2024 1 1 [facility] Summary Purpose Family History No Family History [...] No January 10:32pm Living Will No January 14, 022 11:54am Power of Heavy Lift Rigger No January 14, 2022 11:54am Advance Directive Response Recorded Date/ Time Advance Directives No January 10:32pm Living Will No February 21 3:20pm Power of Heavy Lift Rigger No February 21, 2022 3:20pm Date Activated Date Inactivated Comments 04/01/2024 7:41 AM 04/01/2024 2:07 PM Date Activated Date Inactivated Comments 04/01/2024 7:41 AM 04/01/2024 2:07 PM Advance Directive Response Recorded Date/ Time Advance Directives No January 10:32pm Advance Directive Response Recorded Date/ Time Advance Directives No January 11:32pm Advance Directive Response Recorded Date/ Time Do you have a Healthcare Power of Heavy Lift Rigger? No July 21, 2024 10:54pm Advance Directives No January 11:32pm Chief Complaint [...] Date Cervical radiculopathy April 17, 2024 8:43am Chief Complaint Admit Date CERVICAL RAD March 28, 2024 6:58am LUMBAR SPINE April 17, 2024 8:4 3am RM 4 April 17, 2024 9:1 7am L RING FINGER RX HERE July 10, 2024 7:3 0am dental pain July 21, 2024 9:54 pm Reason for Referral Specialty Diagnoses / Procedures Referred By Contac t Referred To Contact Physical Therapy Diagnoses Plantar fascial fibromatosis Pain in left foot Pain in right foot Procedures MO OFFICE/OUTPATIENT NEW HIGH MDM 60 MINUTES Sabas Reyes, GABBY [address] [place] [address] [facility] [address] [facility] [address] [place] [address] Referral ID Status Reason Start Date Expiration Date Visits Requested Visits Authorized [id number] Authorized Eval and Treat 08/20/2023 13 13 Specialty Diagnoses / Procedures Referred By Contac t Referred To Contact Radiology Diagnoses Spontaneous rupture of extensor tendons, left lower leg Short Achilles tendon (acquired), left ankle Plantar fascial fibromatosis Procedures MR ankle left wo contrast Sabas Reyes DPM [address] [place] [address] Referral ID Status Reason Start Date Expiration Date V isits Requested Visits Authorized [id number] Pending Review 07/05/2022 01/01/2023 1 1 Additional Source Comments INFORMATION SOURCE (unrecogn ized section and content) DATE CREATED AUTHOR 08/01/2017 [facility] DATE CREATED AUTHOR AUTHOR'S ORGANIZ ATION 01/13/2018 [facility] DATE CREATED AUTHOR AUTHOR'S ORGANIZ ATION 10/22/2020 [facility] DATE CREATED AUTHOR AUTHOR'S ORGANIZ ATION 10/30/2020 [facility] DATE CREATED AUTHOR AUTHOR'S ORGANIZ ATION 09/05/2021 [facility] ([place]) DATE CREATED AUTHOR AUTHOR'S ORGANIZ ATION 10/25/2022 [facility] DATE CREATED AUTHOR AUTHOR'S ORGANIZ ATION 06/22/2023 [facility] DATE CREATED AUTHOR AUTHOR'S ORGANIZ ATION 07/23/2024 [facility] DATE CREATED AUTHOR AUTHOR'S ORGANIZ ATION 07/28/2024 [facility] DATE CREATED AUTHOR AUTHOR'S ORGANIZ ATION 07/31/2024 [facility] DATE CREATED AUTHOR AUTHOR'S ORGANIZ ATION 08/08/2024 [facility] Care Team (unrecognized sect ion and content) Team Status: Active Member Role Status Dates Cristobal Otoole SHOE CUTTER, SHOE CUTTER-C Family Provider Active Cristobal Otoole SHOE CUTTER, SHOE CUTTER-C Primary Care Provider Active Team Status: Inactive Member Role Status Dates Cristobal Otoole SHOE CUTTER, SHOE CUTTER-C Primary Care Provider Active Dr. Gladys Posadas DO Attending Provider, Emergency Pro vider Active Team Status: Inactive Member Role Status Dates Cristobal Otoole SHOE CUTTER, SHOE CUTTER-C Primary Care Provider Active Dr. Nuno Casas MD Emergency Provider Active Cartoon Designer Relationship Specialty Start Date End Date Cristobal Otoole [address] [place] [address] PCP - General 06/14/17 Cartoon Designer Relationship Specialty Start Date End Date Cristobal Otoole [address] [place] [address] PCP - General 06/14/17 Cartoon Designer Relationship Specialty Start Date End Date Cristobal Otoole [address] [place] [address] PCP - General 06/14/17 Cartoon Designer Relationship Specialty Start Date End Date Cristobal Otoole [address] [place] [address] PCP - General 06/14/17 Cartoon Designer Relationship Specialty Start Date End Date Cristobal Otoole [address] [place] [address] PCP - General 06/14/17 Cartoon Designer Relationship Specialty Start Date End Date Cristobal Otoole [address] [place] [address] PCP - General 06/14/17 Cartoon Designer Relationship Specialty Start Date End Date Cristobal Otoole [address] [place] [address] PCP - General 06/14/17 Cartoon Designer Relationship Specialty Start Date End Date JustinaAnthony awadCristobal C [address] [place] [address] PCP - General 06/14/17 Cartoon Designer Relationship Specialty Start Date End Date Cristobal Otoole [address] [place] [address] PCP - General 06/14/17 Cartoon Designer Relationship Specialty Start Date End Date Cristobal Otoole [address] [place] [address] PCP - General 06/14/17 Cartoon Designer Relationship Specialty Start Date End Date Cristobal Otoole [address] [place] [address] PCP - General 06/14/17 Cartoon Designer Relationship Specialty Start Date End Date Cristobal Otoole [address] [place] [address] PCP - General 06/14/17 Cartoon Designer Relationship Specialty Start Date End Date Cristobal Otoole [address] [place] [address] PCP - General 06/14/17 Cartoon Designer Relationship Specialty Start Date End Date Cristobal Otoole [address] [place] [address] PCP - General 06/14/17 Cartoon Designer Relationship Specialty Start Date End Date Cristobal Otoole [address] [place] [address] PCP - General 06/14/17 Cartoon Designer Relationship Specialty Start Date End Date Cristobal Otoole [address] [place] [address] PCP - General 06/14/17 Cartoon Designer Relationship Specialty Start Date End Date Cristobal Otoole [address] [place] [address] PCP - General 06/14/17 Cartoon Designer Relationship Specialty Start Date End Date Cristobal Otoole [address] [place] [address] PCP - General 06/14/17 Cartoon Designer Relationship Specialty Start Date End Date Cristobal Otoole [address] [place] [address] PCP - General 06/14/17 Cartoon Designer Relationship Specialty Start Date End Date Cristobal Otoole [address] [place] [address] PCP - General 06/14/17 Cartoon Designer Relationship Specialty Start Date End Date Cristobal Otoole [address] [place] [address] PCP - General 06/14/17 Cartoon Designer Relationship Specialty Start Date End Date Cristobal Otoole [address] [place] [address] PCP - General 06/14/17 Cartoon Designer Relationship Specialty Start Date End Date Cristobal Otoole [address] [place] [address] PCP - General 06/14/17 Cartoon Designer Relationship Specialty Start Date End Date Cristobal Otoole [address] [facility] [place] [address] PCP - General 06/14/17 Cartoon Designer Relationship Specialty Start Date End Date Cristobal Otoole [address] [facility] [place] [address] PCP - General 06/14/17 Cartoon Designer Relationship Specialty Start Date End Date Cristobal Otoole [address] [facility] [address] PCP - General 06/14/17 Cartoon Designer Relationship Specialty Start Date End Date Cristobal Otoole [address] [facility] [place] [address] PCP - General 06/14/17 Cartoon Designer Relationship Specialty Start Date End Date Cristobal Otoole [address] [facility] [place] [address] PCP - General 06/14/17 Cartoon Designer Relationship Specialty Start Date End Date Cristobal Otoole [address] [facility] [place] [address] PCP - General 06/14/17 Cartoon Designer Relationship Specialty Start Date End Date Cristobal Otoole [address] [facility] [place] [address] PCP - General 06/14/17 Cartoon Designer Relationship Specialty Start Date End Date Cristobal Otoole [address] [place] [address] PCP - General 06/14/17 Cartoon Designer Relationship Specialty Start Date End Date Cristobal [address]toole [address] [place] [address] PCP - General 06/14/17 Team Status: Active Member Role Status Dates Cristobal Otoole SHOE CUTTER, SHOE CUTTER-C Primary Care Provider Active Team Status: Inactive Member Role Status Dates Cristobal Otoole SHOE CUTTER, SHOE CUTTER-C Primary Care Provider Active Start: February 22, 2024 End: February 22, 2024 Cristobal Otoole SHOE CUTTER, SHOE CUTTER-C Referring Provider Active Start: February 22, 2024 End: February 22, 2024 SHAHZAD Caal Attending Provider Active Star t: February 22, 2024 End: February 22, 2024 Team Status: Inactive Member Role Status Dates Cristobal Otoole SHOE CUTTER, SHOE CUTTER-C Primary Care Provider Active Start: February 22, 2024 End: February 22, 2024 Dr. Jatinder Cyr MD Attending Provider Active S tart: February 22, 2024 End: February 22, 2024 Team Status: Inactive Member Role Status Dates Cristobal Otoole SHOE CUTTER, SHOE CUTTER-C Primary Care Provider Active Start: March 28, 2024 End: March 28, 2024 SHAHZAD Caal Attending Provider Active Star t: March 28, 2024 End: March 28, 2024 SHAHZAD Caal Referring Provider Active Star t: March 28, 2024 End: March 28, 2024 Cartoon Designer Relationship Specialty Start Date End Date Cristobal Otoole [address] [place] [address] PCP - General 06/14/17 Team Status: Inactive Member Role Status Dates Cristobal Otoole SHOE CUTTER, SHOE CUTTER-C Primary Care Provider Active Start: April 17, 2024 End: April 17, 2024 Cristobal Otoole SHOE CUTTER, SHOE CUTTER-C Referring Provider Active Start: April 17, 2024 End: April 17, 2024 SHAHZAD Caal Attending Provider Active Star t: April 17, 2024 End: April 17, 2024 Team Status: Inactive Member Role Status Dates Cristobal Otoole NP SHOE CUTTER-C Primary Care Provider Active Start: April 17, 2024 End: April 17, 2024 Dr. Jatinder Cyr MD Attending Provider Active S tart: April 17, 2024 End: April 17, 2024 Team Status: Inactive Member Role Status Dates Cristobal Otoole NP, DWIGHT-C Primary Care Provider Active Start: July 10, 2024 End: July 10, 2024 WALDEMAR SOUSA Attending Provider Active Start: July 10, 2024 End: July 10, 2024 WALDEMAR SOUSA Referring Provider Active Start: July 10, 2024 End: July 10, 2024 Team Status: Inactive Member Role Status Dates Cristobal Otoole NP, NP-C Primary Care Provider Active Start: July 21, 2024 End: July 21, 2024 Dr. Rafy Pfeiffer , Emergency Provider Active Start: July 21, 2024 End: July 21, 2024 Goals (unrecognized section and content) Goals may be documented in a n alternate section Reason for Visit (unrecogniz ed section and content) Reason Comments Chest Pain Pt c/o left sided ch est pain, worse with inspiration. Also reports dizziness. Ambulatory through triage alone. Specialty Diagnoses / Procedures Referred By Zee mukherjee Referred To Contact Physical Therapy Diagnoses Plantar fascial fibromatosis Pain in left foot Pain in right foot Procedures MO OFFICE/OUTPATIENT NEW HIGH MDM 60 MINUTES Sabas Reyes DPM [address] [place] [address] [facility] [address] [place] [address] Referral ID Status Reason Start Date Expiration Date Visits Requested Visits Authorized [id number] Authorized Eval and Treat 08/20/2023 08/14/2024 2 2 Reason Comments PT Discharge Specialty Diagnoses / Procedures Referred By Zee mukherjee Referred To Contact Physical Therapy Diagnoses Plantar fascial fibromatosis Pain in left foot Neuralgia and neuritis, unspecified Procedures MO OFFICE/OUTPATIENT NEW HIGH MDM 60 MINUTES Sabas Reyes DPM [address] [place] [address] [facility] Pt [address] [place] [address] Referral ID Status Reason Start Date Expiration Date Visits Requested Visits Authorized [id number] Authorized Eval and Treat 10/24/2023 10/18/2024 2 2 Referral ID Status Reason Start Date Expiration Date Visits Requested Visits Authorized [id number] Authorized Eval and Treat 10/24/2023 17 17 Reason Comments Migraine Reason Comments Hand Pain Reason Comments New Patient Left ring finger inj ury Specialty Diagnoses / Procedures Referred By Contriley t Referred To Contact Orthopedic Surgery Diagnoses Closed nondisplaced fracture of distal phalanx of left ring finger, initial encounter Monique Palma MD [address] [place] [address] Phone: tel: fax: [facility] [address] [place] [address] Phone: tel: fax: Referral ID Status Reason Start Date Expiration Date Visits Requested Visits Authorized [id number] Pending Review Specialty Services Required 02/22/2024 02/21/2025 [...] over 12 Hours, Daily, First dose on 05/21/22 at 2024, Apply patch to flank. Patch [...] On 05/21/22 at 1830, For 1 dose 182 (Given - Provid er: Irais Napier, USHA) ondansetron (Zofran) injection 4 mg (COMPLETED) 4 mg, IntraVENous, Once, On 05/21/22 at 1725, For 1 dose 173 (Given - Provid er: Danette Fitch RN) Scheduled Medication Order 04/26/2022 04/27/2022 04/28/2022 diphenhydrAMINE (BENADryl) injection 25 mg (COMPLETED) 25 mg, IntraVENous, Once, On Sun04/28/22 at 1920, For 1 dose 194 (Given - Provid er: Irais Napier RN) metoclopramide (Reglan) injection 10 mg (COMPLETED) 10 [...] Velma Beebe LPN)2032 (Stopped - Provider: Irais Napier RN) Scheduled Medication Order 03/30/2024 03/31/2024 04/01/2024 acetaminophen (Tylenol) tablet 1,000 mg (COMPLETED) 1,000 mg, Oral, Once, On Sun04/01/24 at 0745, For 1 dose, Preprocedure, Administer 60 minutes prior to surgery. 0804 (Given - Provid er: Jossie Conner RN) clindamycin in D5W (Cleocin) IVPB 900 mg (COMPLETED) 900 mg, IntraVENous, at 50 mL/hr, Administer over 60 Minutes, Cloth Tester Quality to O.R., On Sun04/01/24 at 0745, For 1 dose, Preprocedure, Administer within 1 hour prior to incision. premix bag, Suspected Indication (Select all that apply): Surgical Prophylaxis 0946 (Given - Provid er: Farrukh Gandhi APRN - COLLEGE INTERN) famotidine (Pepcid) tablet 20 mg (COMPLETED)(Linked Group 1) 20 mg, Oral, Once, On Sun04/01/24 at [...] mg (COMPLETED) 1,000 mg, Oral, Once, On [facility] 04/03/24 at 2340, For 1 dose, Maximum dose of acetaminophen is 4000 mg from all sources in 24 hours. 30 (Given - Provid er: Maria Mai RN) [...] hour of each other unless specifically ordered. 38 (Given - Provid er: Maria Mai RN) ketorolac (Toradol) injection 15 mg (COMPLETED) 15 mg, IntraVENous, Once, On [facility] 04/03/24 at 2340, For 1 dose 36 (Given - Provid er: Maria Mai RN) ondansetron (Zofran) injection 4 mg (COMPLETED) 4 mg, IntraVENous, Once, On Gladis 2/27/25 at 2015, For 1 dose 2025 (Given [...] BE BASED ON THE PRIMARY CLINICAL RECORDS. [facility] provides no warranty or guarantee of the accuracy or completeness of information in this document.
== END 2024-08-23 00:25 | disposition home or self-care (01) ==
PROVIDERS: Emergency Provider Surgery; PCP Nurse Practitioner Family; Visit Provider Surgery
DX: K13.79 Other lesions of oral mucosa (principal); F17.210 Nicotine dependence, cigarettes, uncomplicated
CPT/HCPCS: 99282